=== PATIENT | male | born 1950 | race Caucasian/White ===

== ENCOUNTER → 2016-07-07 | Outpatient (CLI) | payer MEDICARE ==
--- NOTE | 2016-07-07 09:18 | CT ---
EXAMINATION TYPE: CT chest wo con DATE OF EXAM: 07/07/2016 8:56 AM COMPARISON: 01/01/2016 HISTORY: Pulmonary nodule CT DLP: 569.70 mGycm, Automated exposure control for dose reduction was used. CONTRAST: None TECHNIQUE: Axial images were obtained at 5 mm thick sections. Reconstructed images are reviewed on 6Scan computer in the coronal plane. FINDINGS: Portion of the thyroid visualized is normal. Previous 4 mm nodule in the right lower lobe appears smaller along measurement currently is estimated at 0.5 cm. This is more linear than round on the current exam. Series 4 image 28. The 0.6 cm nodule in the periphery of the right lower lobe is slightly larger than prior study. Series 4 image 37. A 0. 6 cm nodule along the major fissure of the left lung is stable. Series 4 image 28. No enlarged mediastinal or hilar adenopathy is evident. The ascending aorta diameter at the level o f the main pulmonary artery is 3.6 cm. The main pulmonary artery diameter at the bifurcation is 2.8 cm. Some coronary artery calcification is present. Limited CT sections are obtained through the upper abdomen. Gallstones are present. IMPRESSIONS: 1. Stable 2 mm increase in size of pulmonary nodules. Continued monitoring is recommended with a foll ow-up chest CT in 6 months. 2. Cholelithiasis.
== END | disposition home or self-care (01) ==
LOC: RADCTMAIN 08:37
PROVIDERS: ATTEND Internal Medicine Sleep Medicine
DX: R91.8 Other nonspecific abnormal finding of lung field (principal)
CPT/HCPCS: 71250

== ENCOUNTER → 2017-01-13 | Outpatient (CLI) | payer MEDICARE ==
--- NOTE | 2017-01-13 13:26 | CT ---
EXAMINATION TYPE: CT chest wo con DATE OF EXAM: 01/13/2017 COMPARISON: 07/07/2016 and priors HISTORY: Solitary pulmonary nodule CT DLP: 869 mGycm. Automated Exposure Control for Dose Reduction was Utilized. TECHNIQUE: CT scan of the thorax is performed without IV contrast. FINDINGS: LUNGS: 5 mm pulmonary nodule within the right lower lobe on image 33 is unchanged in size from the pr ior examination, previously measuring 6 mm given differences in measurement technique and slice selec tion. Additional right middle lobe pulmonary nodule measuring 3 mm is also unchanged retrospectively. 6 mm pulmonary nodule within the left lower lobe near the interlobar fissure is unchanged. This is s een on image 27. Interlobar fissure on the right the previously seen pulmonary nodule is only partially visualized giv en slice selection. No new pulmonary nodules are seen. No pulmonary masses are present. No focal cons olidation, pleural effusion or pneumothorax. Bibasilar subsegmental atelectasis is noted. The tracheo bronchial tree is patent. MEDIASTINUM: Lack of IV contrast is noted to limit evaluation for mediastinal and especially hilar ad enopathy. Although by size criteria there are enlarged lymph nodes within the mediastinum measuring 1 .2 cm in the prevascular space, there are fatty teena of these lymph nodes and therefore favored to be reactive. No cardiomegaly or pericardial effusion is seen. No thoracic aortic aneurysm or enlargemen t of the main pulmonary artery. Coronary artery calcifications within the left anterior descending co ronary artery are seen. OTHER: Numerous gallstones layer within the gallbladder body and fundus. Mild degenerative changes ar e appreciated of the thoracic spine demonstrated as anterior osteophytes and intervertebral disc spac e narrowing. IMPRESSION: Multiple unchanged pulmonary nodules demonstrating over 1 year stability. Follow-up CT th orax is recommended in one year to evaluate for stability/progression. Mildly enlarged mediastinal ly mph nodes contain fatty teena and are favored to represent reactive lymph nodes rather than neoplastic .
== END | disposition home or self-care (01) ==
LOC: RADCTMAIN 12:51
PROVIDERS: ATTEND Internal Medicine Sleep Medicine
DX: R91.8 Other nonspecific abnormal finding of lung field (principal)
CPT/HCPCS: 71250

== ENCOUNTER → 2018-01-23 | Outpatient (CLI) | payer MEDICARE ==
--- NOTE | 2018-01-23 11:35 | CT ---
EXAMINATION TYPE: CT chest wo con DATE OF EXAM: 01/23/2018 COMPARISON: Chest CT January 13, 2017 and older studies back to August 20, 2015 HISTORY: Solitary pulmonary nodule CT DLP: 738.90 mGycm. Automated Exposure Control for Dose Reduction was Utilized. TECHNIQUE: CT scan of the thorax is performed without IV contrast. FINDINGS: LUNGS: Subpleural right lower lobe 5 mm nodule axial image 36 is not significantly changed from August 20, 2015 CT and thus presumed benign. The 5 x 4 mm left lower lobe nodule near fissure axial image 2 7 is not significantly changed from August 20, 2015 CT. There is bibasilar linear scarring and/or atel ectasis at level of diaphragm redemonstrated. No new suspicious greater than 4 mm parenchymal nodule or mass is present. No pleural effusion or pneumothorax is seen bilaterally. Tracheobronchial tree is patent. MEDIASTINUM: Lack of IV contrast is noted to limit evaluation for mediastinal and especially hilar ad enopathy. There are no definitive new suspicious greater than 1 cm hilar or mediastinal lymph nodes. No cardiomegaly or pericardial effusion is seen. Main pulmonary artery measures up to 3.0 cm in jackelyn meter at bifurcation axial image 24, CT finding suggestive of mild underlying pulmonary artery hypert ension. Adjacent ascending aorta measures 3.3 cm in diameter. Small degree of bilateral gynecomastia is redemonstrated. Coronary artery calcification is again seen which is noted marker for coronary art cindy disease. OTHER: Dependent calcifications or calcified gallstones in gallbladder are redemonstrated. There is m oderate multilevel lateral spurring in the mid to lower thoracic spine redemonstrated. Moderate diffuse fat replaced atrophy of pancreas is redemonstrated. IMPRESSION: Stable small nodules. No new suspicious nodules or adenopathy. Documentation of 2 years s tability noted consistent with benign etiology.
== END ==
LOC: RADCTMAIN 08:33
PROVIDERS: ATTEND Internal Medicine Sleep Medicine
DX: R91.8 Other nonspecific abnormal finding of lung field (principal)
CPT/HCPCS: 36415; 71250; 82565; 84520

== ENCOUNTER 2018-11-08 15:11 | Emergency (ER) | payer MEDICARE, BC ==
[2018-11-08 16:30] LABS: Basophils # (A) 0.1 k/uL (0-0.2); Basophils % (A) 1 %; Eosinophils # (A) 0.7 k/uL (0-0.7); Eosinophils % (A) 8 %; HCT 40.6 % (39.0-53.0); HGB 13.1 gm/dL (13.0-17.5); Lymphocytes # (A) 1.1 k/uL (1.0-4.8); Lymphocytes % (A) 12 %; MCH 29.8 pg (25.0-35.0); MCHC 32.1 g/dL (31.0-37.0); MCV 92.6 fL (80.0-100.0); Mean Platelet Volume 7.3; Monocytes # (A) 0.6 k/uL (0-1.0); Monocytes % (A) 6 %; Neutrophils # (A) 6.7 k/uL (1.3-7.7); Neutrophils % (A) 71 %; Platelet Count 224 k/uL (150-450); RBC 4.39 m/uL (4.30-5.90); RDW 15.2 % (11.5-15.5); WBC 9.4 k/uL (3.8-10.6)
[2018-11-08 16:34] LABS: Potassium 4.6 mmol/L (3.5-5.1)
[2018-11-08 16:36] LABS: Albumin 4.4 g/dL (3.5-5.0); Calcium 9.7 mg/dL (8.4-10.2); Total Bilirubin 0.7 mg/dL (0.2-1.3)
--- NOTE | 2018-11-08 17:38 | ED ---
Extremity Problem HPI - General Chief complaint: Extremity Problem,Nontraumatic Stated complaint: Cellulitis Time Seen by Provider: 11/08/18 16:29 Source: patient Mode of arrival: ambulatory Limitations: no limitations - History of Present Illness Initial comments: Patient is a 67-year-old male presenting to emergency Department with complaints of right lower leg swelling and redness 3 days. Patient has past medical history of diabetes, hypertension, hyperlipidemia, kidney disease. Patient states he noticed the redness and swelling 3 days ago and the redness has progressively increased. Patient states he has antibiotic at home, doxycycline, that he was prescribed in case of cellulitis symptoms. He started taking that 3 days ago but there is no improvement. Patient states he recently took a trip to [place] 2 weeks ago. Patient denies a very minimal pain in his right lower leg the states it feels very tight. Patient states he has had this type of cellulitis in the past. Patient denies any fever, chills, nausea, vomiting. No other complaints at this time. - Related Data Home Medications Medication Instructions Recorded Confirmed Atenolol [Tenormin] 50 mg PO DAILY 12/31/14 11/08/18 Atorvastatin Calcium [Lipitor] 20 mg PO DAILY 12/31/14 11/08/18 Insulin Glargine,Hum.rec.anlog 38 units SQ HS 12/31/14 11/08/18 [Toujeo Solostar] Lisinopril [Zestril] 2.5 mg PO DAILY 12/31/14 11/08/18 Omeprazole [PriLOSEC] 20 mg PO AC-BRKFST 12/31/14 11/08/18 Allopurinol [Zyloprim] 200 mg PO DAILY 11/08/18 11/08/18 Aspirin EC [Ecotrin Low Dose] 81 mg PO DAILY 11/08/18 11/08/18 Doxycycline Monohydrate [Monodox] 100 mg PO Q12HR 11/08/18 11/08/18 Ferrous Sulfate [Feosol] 325 mg PO DAILY 11/08/18 11/08/18 Insulin Aspart [NovoLOG Flexpen] See Protocol SQ AC-TID 11/08/18 11/08/18 SILVER sulfADIAZINE Cream 1 applic TOPICAL BID 11/08/18 11/08/18 [Silvadene 1% Cream] Torsemide [Demadex] 20 mg PO Q48H 11/08/18 11/08/18 Previous Rx's Medication Instructions Recorded Amoxicillin/Potassium Clav 1 tab PO BID 7 Days #14 tab 11/08/18 [Augmentin 875-125 Tablet] Allergies Allergy/AdvReac Type Severity Reaction Status Date / Time ibuprofen [From Motrin] Allergy Anaphylaxis Verified 11/08/18 16:07 Review of Systems ROS Statement: Those systems with pertinent positive or pertinent negative responses have been documented in the HPI. ROS Other: All systems not noted in ROS Statement are negative. Past Medical History Past Medical History: Diabetes Mellitus, GERD/Reflux, Hyperlipidemia, Hypertension Additional Past Medical History / Comment(s): HX OF ULCERATIVE COLITIS, PA RASTOMAL HERNIA History of Any Multi-Drug Resistant Organisms: MRSA Date of last positivie culture/infection: 11/07/14 MDRO Source:: Scalp Past Surgical History: Appendectomy, Bowel Resection Additional Past Surgical History / Comment(s): COLECTOMY, RECTUM REMOVED, ELLIOTT CATARACTS Past Anesthesia/Blood Transfusion Reactions: No Reported Reaction Past Psychological History: No Psychological Hx Reported Smoking Status: Former smoker Past Alcohol Use History: None Reported Past Drug Use History: None Reported - Past Family History Mother Family Medical History: Cancer Additional Family Medical History / Comment(s): LUNG Father Family Medical History: Cancer Additional Family Medical History / Comment(s): MELANOMA/BRAIN General Exam - General Exam Comments Initial Comments: GENERAL: Well-appearing, well-nourished and in no acute distress. HEAD: Atraumatic, normocephalic. EYES: Pupils equal round and reactive to light, extraocular movements intact, sclera anicteric, conjunctiva are normal. ENT: TMs normal, nares patent, oropharynx clear without exudates. Moist mucous membranes. NECK: Normal range of motion, supple without lymphadenopathy or JVD. LUNGS: Breath sounds clear to auscultation bilaterally and equal. No wheezes rales or rhonchi. HEART: Regular rate and rhythm without murmurs, rubs or gallops. ABDOMEN: Soft, nontender, normoactive bowel sounds. No guarding, no rebound. No masses appreciated. : Deferred EXTREMITIES: Normal range of motion, no pitting or edema. No clubbing or cyanosis. NEUROLOGICAL: Cranial nerves II through XII grossly intact. Normal speech, normal gait. PSYCH: Normal mood, normal affect. Limitations: no limitations Skin exam: Present: warm, dry, erythema (Right lower leg) Expanded Description of rash: Present: erythematous, swelling. Absent: blisters Course Vital Signs 11/08/18 11/08/18 15:12 19:28 Temperature 98.1 F 98.2 F Pulse Rate 64 84 Respiratory 18 16 Rate Blood Pressure 157/80 155/78 O2 Sat by Pulse 98 98 Oximetry Medical Decision Making - Medical Decision Making Patient is a 67-year-old male with complaints of right lower leg swelling and erythema 3 days. Patient states he had doxycycline at home and try that for the last 3 days but the swelling and redness is not decreasing. Patient has recent history of trip to [place]. Patient states he has had this cellulitis in the past. Patient has past medical history of diabetes, kidney disease, hypertension. On exam patient has moderate swelling and erythema of the left lower leg. Very mild pain with palpation. Venous Doppler of the right lower extremity shows no evidence of DVT. CBC, CMP showed no signs of acute infection. Lactic acid is 1.6. Patient will be given a shot of Rocephin before discharge. Patient will be discharged home on Augmentin for cellulitis. Case was discussed with Dr. Robbins who agrees with this course of action. Return parameters were discussed with the patient and the and they both verbalize understanding. - Lab Data Result diagrams: 11/08/18 16:15 11/08/18 16:15 Lab Results 11/08/18 11/08/18 11/08/18 Range/Units 16:15 16:15 16:15 WBC 9.4 (3.8-10.6) k/uL RBC 4.39 (4.30-5.90) m/uL Hgb 13.1 (13.0-17.5) gm/dL Hct 40.6 (39.0-53.0) % MCV 92.6 (80.0-100.0) fL MCH 29.8 (25.0-35.0) pg MCHC 32.1 (31.0-37.0) g/dL RDW 15.2 (11.5-15.5) % Plt Count 224 (150-450) k/uL Neutrophils % 71 % Lymphocytes % 12 % Monocytes % 6 % Eosinophils % 8 % Basophils % 1 % Neutrophils # 6.7 (1.3-7.7) k/uL Lymphocytes # 1.1 (1.0-4.8) k/uL Monocytes # 0.6 (0-1.0) k/uL Eosinophils # 0.7 (0-0.7) k/uL Basophils # 0.1 (0-0.2) k/uL Sodium 141 (137-145) mmol/L Potassium 4.6 (3.5-5.1) mmol/L Chloride 107 (98-107) mmol/L Carbon Dioxide 21 L (22-30) mmol/L Anion Gap 13 mmol/L BUN 42 H (9-20) mg/dL Creatinine 1.99 H (0.66-1.25) mg/dL Est GFR (CKD-EPI)AfAm 39 (>60 ml/min/1.73 sqM) Est GFR (CKD-EPI)NonAf 34 (>60 ml/min/1.73 sqM) Glucose 118 H (74-99) mg/dL Plasma Lactic Acid Cecil 1.6 (0.7-2.0) mmol/L Calcium 9.7 (8.4-10.2) mg/dL Total Bilirubin 0.7 (0.2-1.3) mg/dL AST 38 (17-59) U/L ALT 29 (21-72) U/L Alkaline Phosphatase 111 (38-126) U/L Total Protein 8.0 (6.3-8.2) g/dL Albumin 4.4 (3.5-5.0) g/dL Disposition Clinical Impression: Cellulitis of right lower leg Disposition: HOME SELF-CARE Condition: Stable Instructions (If sedation given, give patient instructions): Cellulitis (ED) Additional Instructions: Please return to the Emergency Department if symptoms worsen or any other concerns. Prescriptions: Amoxicillin/Potassium Clav [Augmentin 875-125 Tablet] 1 tab PO BID 7 Days #14 tab Is patient prescribed a controlled substance at d/c from ED?: No Referrals: Nas Dennis DO [Primary Care Provider] - 1-2 days
--- NOTE | 2018-11-08 18:02 | US ---
EXAMINATION TYPE: US venous doppler duplex LE RT DATE OF EXAM: 11/08/2018 5:49 PM COMPARISON: US CLINICAL HISTORY: swelling, redness. Pain and swelling right leg x 4 days. No hx of DVT. Patient take s baby aspirin. SIDE PERFORMED: Right TECHNIQUE: The lower extremity deep venous system is examined utilizing real time linear array sonog shaun with graded compression, doppler sonography and color-flow sonography. VESSELS IMAGED: External Iliac Vein (EIV) Common Femoral Vein Deep Femoral Vein Greater Saphenous Vein * Femoral Vein Popliteal Vein Small Saphenous Vein * Proximal Calf Veins (* superficial vessels) Right Leg: No evidence of DVT in the right leg from proximal calf veins extending up to EIV at this time. Limited exam due to body habitus and edema. IMPRESSION: No evidence of deep venous thrombosis in the right leg.
[2018-11-08] MEDS ORDERED: cefTRIAXone IN SWFI 1,000 MG/10 ML SYRINGE IVP STA (18:35)
[2018-11-08 19:29] VITALS: BP 155/78; PULSE 84; RESP 16; TEMP 98.2
== END 2018-11-08 19:28 | disposition home or self-care (01) ==
LOC: EC 15:11
DX: L03.115 Cellulitis of right lower limb (principal); E11.9 Type 2 diabetes mellitus without complications; K21.9 Gastro-esophageal reflux disease without esophagitis; E78.5 Hyperlipidemia, unspecified; I10 Essential (primary) hypertension; Z87.891 Personal history of nicotine dependence; Z88.6 Allergy status to analgesic agent; Z79.4 Long term (current) use of insulin; Z79.82 Long term (current) use of aspirin; Z79.899 Other long term (current) drug therapy; Z86.14 Personal history of Methicillin resistant Staphylococcus aureus infection
CPT/HCPCS: 36415; 80053; 83605; 85025; 87040; 93971; 99284; 96374; J0696

== ENCOUNTER → 2019-03-22 | Outpatient (CLI) | payer MEDICARE, BC | END | disposition home or self-care (01) | LOC: RADMRIMAIN 06:06 | PROVIDERS: ATTEND Urology | DX: Z53.9 Procedure and treatment not carried out, unspecified reason (principal) ==

== ENCOUNTER 2020-06-25 20:19 | Observation (INO) | payer BC, MEDICARE ==
[2020-06-25 20:53] LABS: Basophils # (A) 0.1 k/uL (0-0.2); Basophils % (A) 1 %; Eosinophils % (A) 11 %; HCT 41.1 % (39.0-53.0); HGB 13.8 gm/dL (13.0-17.5); Lymphocytes # (A) 0.7 k/uL (1.0-4.8); Lymphocytes % (A) 7 %; MCH 31.8 pg (25.0-35.0); MCHC 33.5 g/dL (31.0-37.0); Monocytes # (A) 0.4 k/uL (0-1.0); Monocytes % (A) 4 %; Neutrophils # (A) 7.3 k/uL (1.3-7.7); Neutrophils % (A) 76 %; Platelet Count 286 k/uL (150-450); RBC 4.33 m/uL (4.30-5.90); RDW 14.5 % (11.5-15.5); WBC 9.7 k/uL (3.8-10.6)
[2020-06-25 21:02] LABS: Albumin 4.7 g/dL (3.5-5.0); Calcium 10.1 mg/dL (8.4-10.2); Magnesium 1.7 mg/dL (1.6-2.3); Total Bilirubin 0.6 mg/dL (0.2-1.3); Total Protein 8.5 g/dL (6.3-8.2)
[2020-06-25 21:05] LABS: INR 0.9 (<1.2); Prothrombin Time 9.6 sec (9.0-12.0)
[2020-06-25 21:07] LABS: Partial Thromboplastin Time 21.5 sec (22.0-30.0)
--- NOTE | 2020-06-25 21:11 | XR ---
EXAMINATION TYPE: XR chest 2V DATE OF EXAM: 06/25/2020 COMPARISON: NONE HISTORY: Chest pain. TECHNIQUE: Frontal and lateral views of the chest are obtained. FINDINGS: There is no focal air space opacity, pleural effusion, or pneumothorax seen. The cardiac silhouette size is within normal limits. The osseous structures are intact. IMPRESSION: No acute cardiopulmonary process.
[2020-06-25 21:13] LABS: Potassium 5.4 mmol/L (3.5-5.1)
[2020-06-25] MEDS ORDERED: NALOXONE 0.4 MG/ML 1 ML VIAL IV PRN (23:30)
--- NOTE | 2020-06-25 23:30 | ED ---
Chest Pain HPI - General Chief Complaint: Chest Pain Stated Complaint: chest pain Time Seen by Provider: 06/25/20 20:20 Source: patient, family Mode of arrival: wheelchair Limitations: no limitations - History of Present Illness Initial Comments: Patient is a 69-year-old male past medical history of ulcerative colitis, diabetes, hypertension presents emergency room for reported chest pain or shortness of breath. Patient reports that for the past one week he has had exertional dyspnea and spans across his chest. States that his symptoms are only present with exertion and are better with rest. He denies previous history of cardiac disease. No history of DVT or PE. Does admit to some mild lower extremity swelling with the right being worse than the left. No calf pain. No recent travel. Patient is not on any anticoagulation. Does follow with Dr. Bales. No fevers or chills. Does admit to a mild nonproductive cough. No abdominal pain. No other alleviating, precipitating or modifying factors - Related Data Home Medications Medication Instructions Recorded Confirmed Atenolol [Tenormin] 50 mg PO DAILY 12/31/14 06/25/20 Atorvastatin Calcium [Lipitor] 20 mg PO DAILY 12/31/14 06/25/20 Insulin Glargine,Hum.rec.anlog 50 units SQ HS 12/31/14 06/25/20 [Toukarinao Solostar] Omeprazole [PriLOSEC] 20 mg PO DAILY 12/31/14 06/25/20 Aspirin EC [Ecotrin Low Dose] 81 mg PO DAILY 11/08/18 06/25/20 Insulin Aspart [NovoLOG Flexpen] 40 units SQ AC-TID 11/08/18 06/25/20 Torsemide [Demadex] 10 mg PO DAILY 11/08/18 06/25/20 Allopurinol [Zyloprim] 300 mg PO DAILY 06/25/20 06/25/20 Ergocalciferol (Vitamin D2) 1,250 mcg PO Q28D 06/25/20 06/25/20 [Drisdol (50,000 Iu)] Tamsulosin HCl [Flomax] 0.4 mg PO PC-SUPPER 06/25/20 06/25/20 Allergies Allergy/AdvReac Type Severity Reaction Status Date / Time ibuprofen [From Motrin] Allergy Anaphylaxis Verified 06/25/20 22:02 Review of Systems ROS Statement: Those systems with pertinent positive or pertinent negative responses have been documented in the HPI. ROS Other: All systems not noted in ROS Statement are negative. EKG Findings - EKG Comments: EKG Findings:: EKG demonstrates sinus tachycardia with a ventricular rate of 106. SC interval 170. QRS 84. QTC of 488. No acute ST segment elevations or depressions Past Medical History Past Medical History: Diabetes Mellitus, GERD/Reflux, Hyperlipidemia, Hypertension Additional Past Medical History / Comment(s): HX OF ULCERATIVE COLITIS, PARASTOMAL HERNIA History of Any Multi-Drug Resistant Organisms: MRSA Date of last positivie culture/infection: 11/07/14 MDRO Source:: Scalp Past Surgical History: Appendectomy, Bowel Resection Additional Past Surgical History / Comment(s): COLECTOMY, RECTUM REMOVED, ELLIOTT CATARACTS Past Anesthesia/Blood Transfusion Reactions: No Reported Reaction Past Psychological History: No Psychological Hx Reported Smoking Status: Never smoker Past Alcohol Use History: None Reported Past Drug Use History: None Reported - Past Family History Mother Family Medical History: Cancer Additional Family Medical History / Comment(s): LUNG Father Family Medical History: Cancer Additional Family Medical History / Comment(s): MELANOMA/BRAIN General Exam Limitations: no limitations General appearance: alert, in no apparent distress Head exam: Present: atraumatic, normocephalic, normal inspection Eye exam: Present: normal appearance, PERRL, EOMI. Absent: scleral icterus, conjunctival injection, periorbital swelling ENT exam: Present: normal exam, mucous membranes moist Neck exam: Present: normal inspection. Absent: tenderness, meningismus, lymphadenopathy Respiratory exam: Present: normal lung sounds bilaterally. Absent: respiratory distress, wheezes, rales, rhonchi, stridor Cardiovascular Exam: Present: regular rate, normal rhythm, normal heart sounds. Absent: systolic murmur, diastolic murmur, rubs, gallop, clicks GI/Abdominal exam: Present: soft, normal bowel sounds. Absent: distended, tenderness, guarding, rebound, rigid Extremities exam: Present: normal inspection, full ROM, normal capillary refill. Absent: tenderness, pedal edema, joint swelling, calf tenderness Back exam: Present: normal inspection Neurological exam: Present: alert, oriented X3, CN II-XII intact Psychiatric exam: Present: normal affect, normal mood Skin exam: Present: warm, dry, intact, normal color. Absent: rash Course Vital Signs 06/25/20 06/25/20 06/25/20 20:21 21:01 22:52 Temperature 97.9 F Pulse Rate 112 H 100 99 Respiratory 18 18 17 Rate Blood Pressure 198/66 166/68 177/80 O2 Sat by Pulse 99 98 98 Oximetry 06/26/20 06/26/20 01:53 05:03 Temperature Pulse Rate 90 80 Respiratory 19 17 Rate Blood Pressure 164/67 146/64 O2 Sat by Pulse 97 97 Oximetry Chest Pain MDM - MDM Upon arrival patient is placed into room 3. A thorough history and physical exam was performed. EKG is performed. Laboratory studies are conducted and a chest x-ray was performed. Laboratory studies reviewed. D-dimer elevated at 0.91. Creatinine 2.01. Troponin is negative. Coronavirus not detected. Chest x-ray demonstrates no acute process. As the patient does have exertional dyspnea and tachycardia I did recommend a VQ scan which is performed. Demonstrates low probability for pulmonary embolism. Venous Dopplers are also negative for DVT. The patient will not be heparinized at this time. I did recommend hospitalization order trend his troponins. Cardiology will be consulted. Patient agreed to this treatment plan and was admitted to the floor. Spoke with Tyler from [facility] who agreed to admit the patient Disposition Clinical Impression: Chest pain, Exertional dyspnea, Elevated d-dimer Disposition: ADMITTED IP TO THIS HOSP Condition: Stable Is patient prescribed a controlled substance at d/c from ED?: No Decision to Admit Reason: Admit from EC Decision Date: 06/25/20 Decision Time: 23:30
--- NOTE | 2020-06-26 00:22 | NM ---
EXAMINATION TYPE: NM pul vent and perfuse DATE OF EXAM: 06/26/2020 COMPARISON: NONE HISTORY: Short of breath TECHNIQUE: Utilizing inhalation of 63.5 mCi Tc 99m DTPA aerosol and intravenous injection of 5.3 mCi of Tc 99m MAA, ventilation and perfusion images are acquired post injection in multiple projections. FINDINGS: There is fairly uniform perfusion of both lungs. I see no segmental or subsegmental defect. There is slight decreased activity in the upper lobes on the ventilation images consistent with some mild airw ay disease. The remainder of exam is unremarkable. IMPRESSION: There is very low probability of pulmonary embolism. There is evidence for some mild airway disease.
--- NOTE | 2020-06-26 01:00 | US ---
EXAM: US Duplex Bilateral Lower Extremities Veins CLINICAL HISTORY: ITS.REASON US Reason: swelling TECHNIQUE: Real-time duplex ultrasound scan of the bilateral lower extremity veins integrating B-mode two-dimensional vascular structure, Doppler spectral analysis, color flow Doppler imaging and compression. COMPARISON: No relevant prior studies available. FINDINGS: Right deep veins: Unremarkable. No DVT in the right common femoral, femoral, proximal deep femoral or popliteal veins. The veins demonstrate normal color flow, are normally compressible, with normal phasic flow and/or augmentation response. Right superficial veins: Unremarkable. No thrombus in the visualized right great saphenous vein. Left deep veins: Unremarkable. No DVT in the left common femoral, femoral, proximal deep femoral or popliteal veins. The veins demonstrate normal color flow, are normally compressible, with normal phasic flow and/or augmentation response. Left superficial veins: Unremarkable. No thrombus in the visualized left great saphenous vein. Soft tissues: No acute findings. No popliteal cyst. IMPRESSION: Negative bilateral lower extremity duplex venous ultrasound. No evidence of DVT.
[2020-06-26 06:20] LABS: Basophils # (A) 0.1 k/uL (0-0.2); Basophils % (A) 2 %; Eosinophils # (A) 0.9 k/uL (0-0.7); Eosinophils % (A) 14 %; HGB 11.8 gm/dL (13.0-17.5); Lymphocytes # (A) 0.7 k/uL (1.0-4.8); Lymphocytes % (A) 11 %; MCH 30.6 pg (25.0-35.0); MCHC 31.9 g/dL (31.0-37.0); MCV 95.9 fL (80.0-100.0); Mean Platelet Volume 7.3; Monocytes # (A) 0.4 k/uL (0-1.0); Monocytes % (A) 6 %; Neutrophils # (A) 4.2 k/uL (1.3-7.7); Neutrophils % (A) 66 %; Platelet Count 240 k/uL (150-450); RBC 3.86 m/uL (4.30-5.90); RDW 14.3 % (11.5-15.5); WBC 6.4 k/uL (3.8-10.6)
[2020-06-26 06:21] LABS: Calcium 9.6 mg/dL (8.4-10.2); Potassium 5.6 mmol/L (3.5-5.1)
[2020-06-26 07:28] LABS: Glucose,Whole Blood 219 mg/dL (75-99)
[2020-06-26] MEDS ORDERED: allopurinoL 300 MG TAB PO SCH (09:30)
[2020-06-26] MEDS ORDERED: atenoloL 50 MG TAB PO SCH (09:30)
[2020-06-26] MEDS ORDERED: PANTOPRAZOLE 40 MG TABLET PO SCH (09:45)
[2020-06-26] MEDS ORDERED: ATORVASTATIN 20 MG TAB PO SCH (09:45)
[2020-06-26] MEDS: INSULIN ASPART (NovoLOG) 100 UNIT/ML VIAL SQ SCH ×2 (10:21→13:48)
[2020-06-26] MEDS ORDERED: REGADENOSON 0.4 MG/5 ML SYRINGE IV PRN (11:47)
[2020-06-26] MEDS ORDERED: CAFFEINE CITRATE 60 MG/3 ML VIAL IV PRN (11:47)
[2020-06-26] MEDS ORDERED: AMINOPHYLLINE 500 MG/20 ML VIAL IV PRN (11:47)
[2020-06-26] MEDS ORDERED: DOBUTamine DRIP for NUC MED 500 MG in DEXTROSE/WATER 1 250ML.BAG IV PRN (11:58)
[2020-06-26 12:18] LABS: Glucose,Whole Blood 175 mg/dL (75-99)
[2020-06-26] MEDS ORDERED: INSULIN ASPART (NovoLOG) 100 UNIT/ML VIAL SQ SCH (12:30)
[2020-06-26] MEDS ORDERED: SODIUM POLYSTYRENE SULFONATE 15 GM/60 ML BOTTLE PO STA ×2 (13:12→13:57)
--- NOTE | 2020-06-26 13:16 | P.DS ---
Providers Date of admission: 06/25/20 23:30 Attending physician: Maury Gabriel Consults: 06/25/20 23:32 Consult Physician Urgent Consulting Provider: [facility] Consult Reason/Comments: acute chest pain Do you want consulting provider notified?: Yes Primary care physician: [facility] Course: Please refer to my HPI Patient Condition at Discharge: Stable Plan - Discharge Summary New Discharge Prescriptions: Discontinued lisinopriL [Zestril] 2.5 mg PO DAILY No Action Insulin Glargine,Hum.rec.anlog [Toujeo Solostar] 50 units SQ HS Omeprazole [PriLOSEC] 20 mg PO DAILY Atorvastatin Calcium [Lipitor] 20 mg PO DAILY Atenolol [Tenormin] 50 mg PO DAILY Torsemide [Demadex] 10 mg PO DAILY Insulin Aspart [NovoLOG Flexpen] 40 units SQ AC-TID Aspirin EC [Ecotrin Low Dose] 81 mg PO DAILY Ergocalciferol (Vitamin D2) [Drisdol (50,000 Iu)] 1,250 mcg PO Q28D Allopurinol [Zyloprim] 300 mg PO DAILY Tamsulosin HCl [Flomax] 0.4 mg PO PC-SUPPER Discharge Medication List Atenolol [Tenormin] 50 mg PO DAILY 12/31/14 [History] Atorvastatin Calcium [Lipitor] 20 mg PO DAILY 12/31/14 [History] Insulin Glargine,Hum.rec.anlog [Toujeo Solostar] 50 units SQ HS 12/31/14 [History] Omeprazole [PriLOSEC] 20 mg PO DAILY 12/31/14 [History] Aspirin EC [Ecotrin Low Dose] 81 mg PO DAILY 11/08/18 [History] Insulin Aspart [NovoLOG Flexpen] 40 units SQ AC-TID 11/08/18 [History] Torsemide [Demadex] 10 mg PO DAILY 11/08/18 [History] Allopurinol [Zyloprim] 300 mg PO DAILY 06/25/20 [History] Ergocalciferol (Vitamin D2) [Drisdol (50,000 Iu)] 1,250 mcg PO Q28D 06/25/20 [History] Tamsulosin HCl [Flomax] 0.4 mg PO PC-SUPPER 06/25/20 [History] Follow up Appointment(s)/Referral(s): Ivy Oswald MD [STAFF PHYSICIAN] - 1 Week Nas Dennis DO [Primary Care Provider] - 3 Days Activity/Diet/Wound Care/Special Instructions: Diabetic, cardiac, renal diet Discharge Disposition: HOME SELF-CARE
--- NOTE | 2020-06-26 13:16 | P.HPIM ---
History of Present Illness 69-year-old male past medical history of ulcerative colitis, diabetes, hypertension presents emergency room for reported chest pain or shortness of breath. Patient reports that for the past one week he has had exertional dyspnea and spans across his chest. States that his symptoms are only present with exertion and are better with rest. He denies previous history of cardiac disease. No history of DVT or PE. Does admit to some mild lower extremity swelling with the right being worse than the left. No calf pain. No recent travel. Patient is not on any anticoagulation. Does follow with Dr. Bales. No fevers or chills. Does admit to a mild nonproductive cough. No abdominal pain. No other alleviating, precipitating or modifying factors Patient weight was evaluated cardiology will be ruled out acute concern is synd romes. Patient will undergo stress test if that's negative patient will be discharged patient had a VQ scan which is low probability for PE patient has elevated serum creatinine appears to have chronic kidney disease. Patient has bit elevated of potassium because of which will risk and he lisinopril patient is on very low-dose of lisinopril at home. Patient doesn't have any COPD exacerbation at this time Review of Systems REVIEW OF SYSTEMS: CONSTITUTIONAL: No fever, no malaise, no fatigue. HEENT: No recent visual problems or hearing problems. Denied any sore throat. CARDIOVASCULAR: No orthopnea, PND, no palpitations, no syncope. PULMONARY: No shortness of breath, no cough, no hemoptysis. GASTROINTESTINAL: No diarrhea, no nausea, no vomiting, no abdominal pain. NEUROLOGICAL: No headaches, no weakness, no numbness. HEMATOLOGICAL: Denies any bleeding or petechiae. GENITOURINARY: Denies any burning micturition, frequency, or urgency. MUSCULOSKELETAL/RHEUMATOLOGICAL: Denies any joint pain, swelling, or any muscle pain. ENDOCRINE: Denies any polyuria or polydipsia. The rest of the 14-point review of systems is negative. Past Medical History Past Medical History: Cancer, Diabetes Mellitus, GERD/Reflux, Hyperlipidemia, Hypertension, Osteoarthritis (OA) Additional Past Medical History / Comment(s): HX OF ULCERATIVE COLITIS, PARASTOMAL HERNIA. 04/19 had positive rectal bx and was treated with 5 Radiation and last was 06/12/20 History of Any Multi-Drug Resistant Organisms: MRSA Date of last positivie culture/infection: 11/07/14 MDRO Source:: Scalp Past Surgical History: Appendectomy, Bowel Resection Additional Past Surgical History / Comment(s): COLECTOMY, RECTUM REMOVED, ELLIOTT CATARACTS Past Anesthesia/Blood Transfusion Reactions: No Reported Reaction Past Psychological History: No Psychological Hx Reported Smoking Status: Never smoker Past Alcohol Use History: None Reported Past Drug Use History: None Reported - Past Family History Mother Family Medical History: Cancer Additional Family Medical History / Comment(s): LUNG Father Family Medical History: Cancer Additional Family Medical History / Comment(s): MELANOMA/BRAIN Medications and Allergies Home Medications Medication Instructions Recorded Confirmed Type Atenolol [Tenormin] 50 mg PO DAILY 12/31/14 06/25/20 History Atorvastatin Calcium [Lipitor] 20 mg PO DAILY 12/31/14 06/25/20 History Insulin Glargine,Hum.rec.anlog 50 units SQ HS 12/31/14 06/25/20 History [Toujeo Solostar] Omeprazole [PriLOSEC] 20 mg PO DAILY 12/31/14 06/25/20 History Aspirin EC [Ecotrin Low Dose] 81 mg PO DAILY 11/08/18 06/25/20 History Insulin Aspart [NovoLOG Flexpen] 40 units SQ AC-TID 11/08/18 06/25/20 History Torsemide [Demadex] 10 mg PO DAILY 11/08/18 06/25/20 History Allopurinol [Zyloprim] 300 mg PO DAILY 06/25/20 06/25/20 History Ergocalciferol (Vitamin D2) 1,250 mcg PO Q28D 06/25/20 06/25/20 History [Drisdol (50,000 Iu)] Tamsulosin HCl [Flomax] 0.4 mg PO PC-SUPPER 06/25/20 06/25/20 History Allergies Allergy/AdvReac Type Severity Reaction Status Date / Time ibuprofen [From Motrin] Allergy Anaphylaxis Verified 06/25/20 22:02 Physical Exam Vitals: Vital Signs Temp Pulse Pulse Resp BP BP Pulse Ox 06/26/20 07:00 98.2 F 86 17 179/74 97 06/26/20 05:03 80 17 146/64 97 06/26/20 01:53 90 19 164/67 97 06/25/20 22:52 99 17 177/80 98 02/25/21 21:01 100 18 166/68 98 06/25/20 20:21 97.9 F 112 H 18 198/66 99 Intake and Output 06/25/20 06/26/20 06/26/20 22:59 06:59 14:59 Other: Weight 117.934 kg 117.934 kg PHYSICAL EXAMINATION: GENERAL: The patient is alert and oriented x3, not in any acute distress. Well developed, well nourished. HEENT: Pupils are round and equally reacting to light. EOMI. No scleral icterus. No conjunctival pallor. Normocephalic, atraumatic. No pharyngeal erythema. No thyromegaly. CARDIOVASCULAR: S1 and S2 present. No murmurs, rubs, or gallops. PULMONARY: Chest is clear to auscultation, no wheezing or crackles. ABDOMEN: Soft, nontender, nondistended, normoactive bowel sounds. No palpable organomegaly. MUSCULOSKELETAL: No joint swelling or deformity. EXTREMITIES: No cyanosis, clubbing, or pedal edema. NEUROLOGICAL: Gross neurological examination did not reveal any focal deficits. SKIN: No rashes. Results CBC & Chem 7: 06/26/20 05:31 06/26/20 05:31 Labs: Abnormal Lab Results - Last 24 Hours (Table) 06/25/20 06/25/20 06/25/20 Range/Units 20:44 20:44 20:44 RBC (4.30-5.90) m/uL Hgb (13.0-17.5) gm/dL Hct (39.0-53.0) % Lymphocytes # 0.7 L (1.0-4.8) k/uL Eosinophils # 1.0 H (0-0.7) k/uL APTT 21.5 L (22.0-30.0) sec D-Dimer (<0.60) mg/L FEU Potassium 5.4 H (3.5-5.1) mmol/L Carbon Dioxide 21 L (22-30) mmol/L BUN 30 H (9-20) mg/dL Creatinine 2.01 H (0.66-1.25) mg/dL Glucose 174 H (74-99) mg/dL POC Glucose (mg/dL) (75-99) mg/dL Alkaline Phosphatase 134 H (38-126) U/L Total Protein 8.5 H (6.3-8.2) g/dL 06/25/20 06/26/20 06/26/20 Range/Units 20:44 05:31 05:31 RBC 3.86 L (4.30-5.90) m/uL Hgb 11.8 L (13.0-17.5) gm/dL Hct 37.0 L (39.0-53.0) % Lymphocytes # 0.7 L (1.0-4.8) k/uL Eosinophils # 0.9 H (0-0.7) k/uL APTT (22.0-30.0) sec D-Dimer 0.91 H (<0.60) mg/L FEU Potassium 5.6 H (3.5-5.1) mmol/L Carbon Dioxide (22-30) mmol/L BUN 28 H (9-20) mg/dL Creatinine 2.23 H (0.66-1.25) mg/dL Glucose 253 H (74-99) mg/dL POC Glucose (mg/dL) (75-99) mg/dL Alkaline Phosphatase (38-126) U/L Total Protein (6.3-8.2) g/dL 06/26/20 06/26/20 Range/Units 07:26 12:10 RBC (4.30-5.90) m/uL Hgb (13.0-17.5) gm/dL Hct (39.0-53.0) % Lymphocytes # (1.0-4.8) k/uL Eosinophils # (0-0.7) k/uL APTT (22.0-30.0) sec D-Dimer (<0.60) mg/L FEU Potassium (3.5-5.1) mmol/L Carbon Dioxide (22-30) mmol/L BUN (9-20) mg/dL Creatinine (0.66-1.25) mg/dL Glucose (74-99) mg/dL POC Glucose (mg/dL) 219 H 175 H (75-99) mg/dL Alkaline Phosphatase (38-126) U/L Total Protein (6.3-8.2) g/dL Thrombosis Risk Factor Assmnt - Choose All That Apply Any of the Below Risk Factors Present?: Yes Each Factor Represents 1 point: Obesity (BMI >25), Swollen legs (current) Other Risk Factors: Yes (recent recurrance of cancer rectum with radiation airam tments) Each Risk Factor Represents 2 Points: Age 61-74 years, Malignancy Thrombosis Risk Factor Assessment Total Risk Factor Score: 6 Thrombosis Risk Factor Assessment Level: High Risk Assessment and Plan Plan: -Chest pressure with some possible shortness of breath: Patient the will undergo dobutamine stress us if that's negative patient will be discharged rule out a concurrent syndromes -Chronic kidney disease stage IV secondary to diabetic nephropathy -Hyperkalemia secondary to kidney disease and lisinopril. lisinopril discontinued and patient will be given a dose of Kayexalate and patient will be discharged on low potassium diet which is renal diet. -Acid-free reflux disease -Type 2 diabetes mellitus -Benign prostatic hypertrophy
[2020-06-26 13:42] VITALS: RESP 16
--- NOTE | 2020-06-26 14:49 | P.CRDCN ---
History of Present Illness Consult date: 06/26/20 History of present illness: CHIEF COMPLAINT: Chest pain HISTORY OF PRESENT ILLNESS: This is a 69-year-old male with a past medical history significant for chronic kidney disease, GERD, hyperlipidemia, and hypertension. Patient follows in the office with Dr. Bales. We have been asked to see the patient in consultation for chest pain. Patient examined this morning at the bedside. He reports he has been short of breath for approximately one week. He states his shortness of breath is with exertion. He denies any shortness of breath at rest. He also complains of chest pressure across to his left and right upper chest. He states the pain into his right neck and on his left arm. He reports feeling dizzy as well. At the time of examination this morning, the patient denies any chest pain or pressure. DIAGNOSTICS: EKG reveals sinus tachycardia with no signs of acute ischemia Chest xray negative for acute process Laboratory data: WBC 6.4. Hemoglobin 11.8. Platelet count 240. Sodium 137. Potassium 5.6. BUN 28. Creatinine 2.23. Troponin negative 3. BNP 110. Current home cardiac medications include Demadex 10 mg daily, Lipitor 20 mg daily, atenolol 50 mg daily, and aspirin 81 mg daily REVIEW OF SYSTEMS: At the time of my exam: CONSTITUTIONAL: Denies fever or chills. HEENT: Denies blurred vision, vision changes, or eye pain. Denies hemoptysis CARDIOVASCULAR: Denies chest pain, orthopnea, PND or palpitations RESPIRATORY: No shortness of breath. GASTROINTESTINAL: Denies abdominal pain. Denies nausea or vomiting. HEMATOLOGIC: Denies bleeding disorders. GENITOURINARY: Denies any blood in urine. SKIN: Denies pruitis. Denies rash. PHYSICAL EXAM: VITAL SIGNS: Reviewed. GENERAL: Well-developed in no acute distress. HEENT: Head is normocephalic. Pupils are equal, round. Sclerae anicteric. Mucous membranes of the mouth are moist. Neck supple. No JVD or thyromegaly LUNGS: Respirations even and unlabored. Lungs essentially clear to auscultation bilaterally. HEART: Regular rate and rhythm. S1 and S2 heard. ABDOMEN: Soft. Nondistended. Nontender. EXTREMITIES: Normal range of motion. No clubbing or cyanosis. Peripheral pulses intact. No lower extremity edema NEUROLOGIC: Awake and alert. Oriented x 3. ASSESSMENT: Chest pain Hypertension Hyperlipidemia Chronic kidney disease History of lower extremity edema, maintained on Demadex, denies history of congestive heart failure Diabetes mellitus Morbid obesity: BMI 42.0 PLAN: Resume home cardiac medications An acute coronary event has been ruled out Obtain 2-D echo to assess cardiac structure and function Patient to undergo dobutamine stress test today. If negative he may be discharged home from a cardiac perspective and follow-up with Dr. Bales Nurse practitioner note has been reviewed by physician. Signing provider agrees with the documented findings, assessment, and plan of care. Past Medical History Past Medical History: Cancer, Diabetes Mellitus, GERD/Reflux, Hyperlipidemia, Hypertension, Osteoarthritis (OA) Additional Past Medical History / Comment(s): HX OF ULCERATIVE COLITIS, PARASTOMAL HERNIA. 04/19 had positive rectal bx and was treated with 5 Radiation and last was 06/12/20 History of Any Multi-Drug Resistant Organisms: MRSA Date of last positivie culture/infection: 11/07/14 MDRO Source:: Scalp Past Surgical History: Appendectomy, Bowel Resection Additional Past Surgical History / Comment(s): COLECTOMY, RECTUM REMOVED, ELLIOTT CATARACTS Past Anesthesia/Blood Transfusion Reactions: No Reported Reaction Past Psychological History: No Psychological Hx Reported Smoking Status: Never smoker Past Alcohol Use History: None Reported Past Drug Use History: None Reported - Past Family History Mother Family Medical History: Cancer Additional Family Medical History / Comment(s): LUNG Father Family Medical History: Cancer Additional Family Medical History / Comment(s): MELANOMA/BRAIN Medications and Allergies Home Medications Medication Instructions Recorded Confirmed Type Atenolol [Tenormin] 50 mg PO DAILY 12/31/14 06/25/20 History Atorvastatin Calcium [Lipitor] 20 mg PO DAILY 12/31/14 06/25/20 History Insulin Glargine,Hum.rec.anlog 50 units SQ HS 12/31/14 06/25/20 History [Toujeo Solostar] Omeprazole [PriLOSEC] 20 mg PO DAILY 12/31/14 06/25/20 History Aspirin EC [Ecotrin Low Dose] 81 mg PO DAILY 11/08/18 06/25/20 History Insulin Aspart [NovoLOG Flexpen] 40 units SQ AC-TID 11/08/18 06/25/20 History Torsemide [Demadex] 10 mg PO DAILY 11/08/18 06/25/20 History Allopurinol [Zyloprim] 300 mg PO DAILY 06/25/20 06/25/20 History Ergocalciferol (Vitamin D2) 1,250 mcg PO Q28D 06/25/20 06/25/20 History [Drisdol (50,000 Iu)] Tamsulosin HCl [Flomax] 0.4 mg PO PC-SUPPER 06/25/20 06/25/20 History Allergies Allergy/AdvReac Type Severity Reaction Status Date / Time ibuprofen [From Motrin] Allergy Anaphylaxis Verified 06/25/20 22:02 Physical Exam Vitals: Vital Signs Temp Pulse Pulse Resp BP BP Pulse Ox 06/26/20 13:09 101 H 16 175/65 95 06/26/20 07:00 98.2 F 86 17 179/74 97 06/26/20 05:03 80 17 146/64 97 06/26/20 01:53 90 19 164/67 97 06/25/20 22:52 99 17 177/80 98 06/25/20 21:01 100 18 166/68 98 06/25/20 20:21 97.9 F 112 H 18 198/66 99 Intake and Output 06/25/20 06/26/20 06/26/20 22:59 06:59 14:59 Other: # Voids 2 Weight 117.934 kg 117.93 kg Results 06/26/20 05:31 06/26/20 05:31 Cardiac Enzymes 06/25/20 06/25/20 06/26/20 Range/Units 20:44 20:44 00:52 AST 28 (17-59) U/L Troponin I <0.012 <0.012 (0.000-0.034) ng/mL 06/26/20 Range/Units 05:31 AST (17-59) U/L Troponin I 0.023 (0.000-0.034) ng/mL Coagulation 06/25/20 Range/Units 20:44 PT 9.6 (9.0-12.0) sec APTT 21.5 L (22.0-30.0) sec CBC 06/25/20 06/26/20 Range/Units 20:44 05:31 WBC 9.7 6.4 (3.8-10.6) k/uL RBC 4.33 3.86 L (4.30-5.90) m/uL Hgb 13.8 11.8 L (13.0-17.5) gm/dL Hct 41.1 37.0 L (39.0-53.0) % Plt Count 286 240 (150-450) k/uL Comprehensive Metabolic Panel 06/25/20 06/26/20 Range/Units 20:44 05:31 Sodium 138 137 (137-145) mmol/L Potassium 5.4 H 5.6 H (3.5-5.1) mmol/L Chloride 106 104 (98-107) mmol/L Carbon Dioxide 21 L 23 (22-30) mmol/L BUN 30 H 28 H (9-20) mg/dL Creatinine 2.01 H 2.23 H (0.66-1.25) mg/dL Glucose 174 H 253 H (74-99) mg/dL Calcium 10.1 9.6 (8.4-10.2) mg/dL AST 28 (17-59) U/L ALT 25 (4-49) U/L Alkaline Phosphatase 134 H (38-126) U/L Total Protein 8.5 H (6.3-8.2) g/dL Albumin 4.7 (3.5-5.0) g/dL Current Medications Generic Name Dose Route Start Last Admin Trade Name Freq PRN Reason Stop Dose Admin Allopurinol 300 mg 06/26/20 09:30 06/26/20 10:20 Allopurinol 300 Mg Tab PO 300 mg DAILY JOSÉ Administration Aminophylline 100 mg 06/26/20 11:47 Aminophylline 500 Mg/20 Ml Vial IV 06/26/20 15:47 ONCE PRN Patient Response Atenolol 50 mg 06/26/20 09:30 06/26/20 13:48 Atenolol 50 Mg Tab PO 50 mg DAILY JOSÉ Administration Atorvastatin Calcium 20 mg 06/26/20 09:45 06/26/20 10:19 Atorvastatin 20 Mg Tab PO 20 mg DAILY JOSÉ Administration Caffeine Citrate 60 mg 06/26/20 11:47 Caffeine Citrate 60 Mg/3 Ml Vial IV 06/26/20 15:47 ONCE PRN Patient Response Ergocalciferol 1,250 mcg 07/13/20 09:00 Ergocalciferol 1,250 Mcg (50,000 Iu) Capsule PO Q28D [facility] Dobutamine HCl/Dextrose 500 mg 250 mls @ 35.38 mls/hr 06/26/20 11:58 / IV Solution IV 06/26/20 15:58 .Q7H4M PRN Per Protocol Protocol 10 MCG/KG/MIN Insulin Aspart 0 unit 06/26/20 12:30 06/26/20 13:48 Insulin Aspart (Novolog) 100 Unit/Ml Vial SQ Not Given ACHS [facility] Protocol Insulin Aspart 40 unit 06/26/20 12:30 06/26/20 13:48 Insulin Aspart (Novolog) 100 Unit/Ml Vial SQ 40 unit AC-TID JOSÉ Administration Insulin Detemir 50 unit 06/26/20 21:00 Insulin Detemir (Levemir) 100 Unit/Ml Syr SQ HS [facility] Naloxone HCl 0.2 mg 06/25/20 23:30 Naloxone 0.4 Mg/Ml 1 Ml Vial IV Q2M PRN Opioid Reversal Pantoprazole Sodium 40 mg 06/26/20 09:45 06/26/20 10:19 Pantoprazole 40 Mg Tablet PO 40 mg DAILY JOSÉ Administration Tamsulosin HCl 0.4 mg 06/26/20 18:30 Tamsulosin 0.4 Mg Cap.Er.24h PO PC-SUPPER [facility] Intake and Output 06/25/20 06/26/20 06/26/20 22:59 06:59 14:59 Other: # Voids 2 Weight 117.934 kg 117.93 kg Patient Weight 06/27/20 06:59 Weight 117.93 kg 06/26/20 05:31 06/26/20 05:31
[2020-06-26 16:33] VITALS: BP 141/72; PULSE 68; TEMP 98.1
--- NOTE | 2020-06-26 17:11 | P.STRESS ---
- Stress Test Note Stress Test Results/Findings: Exam Performed: dobutamine stress echo with con Exam Date: 06/26/20 Reason for Exam: CP Height: 5 ft 6 in Weight: 117.93 kg Protocol: DOBUTAMINE STRESS ECHO W/ LUMASON Stage: 30 mcg Duration of Exercise: 6:41 Resting Heart Rate: 100 Resting Blood Pressure: 188/82 Maximum Achieved Heart Rate: 132 Maximum Achieved Blood Pressure: 195/80 85% PMHR: 128 100% PMHR: 150 METS: NA Technologist Comment: Stress Test Results/Findings: This is a 69-year-old gentleman with history of hypertension, diabetes and hypercholesterolemia who was admitted to the hospital with complaints of exertional shortness of breath and chest pain and palpitations. His cardiac enzymes have been negative. EKG did not reveal any acute changes. Stress data: Baseline EKG showed sinus rhythm with normal DC interval, QRS duration. Blood pressure at rest is 188/82 with pulse rate of 100. A standard dose of dobutamine was initiated at 10 mics and was increased to 20 mics, achieving a maximal heart rate of 132 with a blood pressure of about 195/80. EKGs taken during and after the infusion did not reveal any change of ischemia. Patient did complain of some chest pain unassociated with any EKG changes. Echo data: Baseline echo images showed hyperactive contraction of the left ventricle without any segmental wall motion defects. At low-dose and high dose of dobutamine, there appeared to be similar hyperactive contraction of the left ventricle without any segmental wall motion defects. Final impression #1. Negative dobutamine stress test #2. Probably negative dobutamine stress echo without any inducible ischemic changes. #3. Patient did complain of chest pain unassociated with any EKG changes or echo findings
--- NOTE | 2020-06-26 17:51 | ECHOF ---
Referral Reason:LV function, SOB, chest pain MEASUREMENTS -------- HEIGHT: 167.6 cm WEIGHT: 117.9 kg BP: 179/74 RVIDd: 3.4 cm (< 3.3) IVSd: 1.4 cm (0.6 - 1.1) LVIDd: 4.3 cm (3.9 - 5.3) LVPWd: 1.5 cm (0.6 - 1.1) IVSs: 2.0 cm LVIDs: 2.9 cm LVPWs: 2.0 cm LA Diam: 3.7 cm (2.7 - 3.8) LAESV Index (A-L): 32.05 ml/m Ao Diam: 3.3 cm (2.0 - 3.7) AV Cusp: 2.1 cm (1.5 - 2.6) MV EXCURSION: 18.438 mm (> 18.000) MV EF SLOPE: 72 mm/s (70 - 150) EPSS: 0.3 cm MV E Acosta: 0.75 m/s MV DecT: 277 ms MV A Acosta: 0.96 m/s MV E/A Ratio: 0.78 FINDINGS -------- Sinus rhythm. This was a technically difficult study with suboptimal views. The left ventricular size is normal. There is moderate concentric left ventricular hypertrophy. O verall left ventricular systolic function is normal with, an EF between 60 - 65 %. The right ventricle is mildly enlarged. LA is midly dilated 29-33ml/m2. The right atrium is normal in size. 3 ml of Lumason was utilized for enhancement of images. Interatrial and interventricular septum intact. The aortic valve is trileaflet and appears structurally normal. There is trace to mild mitral regurgitation. The tricuspid valve appears structurally normal. The pulmonic valve was not well visualized. The aortic root size is normal. IVC Not well visulized. There is no pericardial effusion. CONCLUSIONS -------- 1. The left ventricular size is normal. 2. There is moderate concentric left ventricular hypertrophy. 3. Overall left ventricular systolic function is normal with, an EF between 60 - 65 %. 4. The right ventricle is mildly enlarged. 5. LA is midly dilated 29-33ml/m2. 6. 3 ml of Lumason was utilized for enhancement of images. 7. There is trace to mild mitral regurgitation. 8. There is no pericardial effusion. RADIO MECHANIC HELPER: Leslie Pratt RDCS
[2020-06-26] MEDS ORDERED: TAMSULOSIN 0.4 MG CAP.ER.24H PO SCH (18:30)
[2020-06-26] MEDS ORDERED: INSULIN DETEMIR (LEVEMIR) 100 UNIT/ML SYR SQ SCH (21:00)
[2020-07-13] MEDS ORDERED: ERGOCALCIFEROL 1,250 MCG (50,000 IU) CAPSULE PO SCH (09:00)
== END 2020-06-26 18:15 | disposition home or self-care (01) ==
LOC: EC 20:19 → 6NMEDSUR 23:30
PROVIDERS: ADMIT Hospitalist; ATTEND Hospitalist
DX: R07.89 Other chest pain (principal); E87.5 Hyperkalemia; M54.2 Cervicalgia; M79.602 Pain in left arm; R42 Dizziness and giddiness; R60.0 Localized edema; K51.90 Ulcerative colitis, unspecified, without complications; R06.02 Shortness of breath; R00.0 Tachycardia, unspecified; R06.09 Other forms of dyspnea; M79.89 Other specified soft tissue disorders; R05 Cough; R79.89 Other specified abnormal findings of blood chemistry; E11.21 Type 2 diabetes mellitus with diabetic nephropathy; E11.22 Type 2 diabetes mellitus with diabetic chronic kidney disease; I12.9 Hypertensive chronic kidney disease with stage 1 through stage 4 chronic kidney disease, or unspecified chronic kidney disease; N18.4 Chronic kidney disease, stage 4 (severe); K21.9 Gastro-esophageal reflux disease without esophagitis; E78.5 Hyperlipidemia, unspecified; M19.90 Unspecified osteoarthritis, unspecified site; E66.01 Morbid (severe) obesity due to excess calories; Z68.41 Body mass index [BMI] 40.0-44.9, adult; N40.0 Benign prostatic hyperplasia without lower urinary tract symptoms; Z79.899 Other long term (current) drug therapy; Z79.82 Long term (current) use of aspirin; Z79.4 Long term (current) use of insulin; Z88.8 Allergy status to other drugs, medicaments and biological substances; Z86.14 Personal history of Methicillin resistant Staphylococcus aureus infection; Z90.49 Acquired absence of other specified parts of digestive tract; Z80.8 Family history of malignant neoplasm of other organs or systems; Z80.1 Family history of malignant neoplasm of trachea, bronchus and lung; Z20.822 Contact with and (suspected) exposure to COVID-19
CPT/HCPCS: 99285; 36415; 93005; 93351; 85379; 83880; 80053; 80048; 83690; 83735; 84484 ×2; 85025 ×2; 85610; 85730; 87635; 71046; 93970; 78582; G0378 ×2; C8929; A9540; A9567; J1250; Q9950; 93306

== ENCOUNTER 2021-10-21 11:36 | Inpatient (IN) | payer MEDICARE ==
[2021-10-21] MEDS ORDERED: MORPHINE SULFATE 4 MG/ML SYRINGE IV STA (12:34)
[2021-10-21] MEDS ORDERED: NITROGLYCERIN SL TABS 0.4 MG TAB SUBLINGUAL STA (12:34)
--- NOTE | 2021-10-21 13:02 | ED ---
Chest Pain HPI - General Chief Complaint: Chest Pain Stated Complaint: Chest Pain/SOB Time Seen by Provider: 10/21/21 12:00 Source: patient, family, RN notes reviewed Mode of arrival: wheelchair Limitations: no limitations - History of Present Illness Initial Comments: 70-year-old male with a history of hypertension but no known history of lung disease who came in today for evaluation of sharp chest pain started just before 10 AM this morning he states was 8/10 severity radiated to his left shoulder and left neck.Get worse with expiration. He's had exertional dyspnea and shortness of breath over the past several weeks. No fevers chills sweats no exposures to known infectious diseases. No known heart disease. No other current complaints or modifying factors patient states also no trauma ported. 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 MD Complaint: chest pain - Related Data Home Medications Medication Instructions Recorded Confirmed Atorvastatin Calcium [Lipitor] 20 mg PO DAILY 12/31/14 10/21/21 Insulin Glargine,Hum.rec.anlog 50 units SQ HS 12/31/14 10/21/21 [Toujeo Solostar] Omeprazole [PriLOSEC] 20 mg PO DAILY 12/31/14 10/21/21 atenoloL [Tenormin] 50 mg PO DAILY 12/31/14 10/21/21 Aspirin EC [Ecotrin Low Dose] 81 mg PO DAILY 11/08/18 10/21/21 Insulin Aspart [NovoLOG Flexpen] See Protocol SQ AC-TID 11/08/18 10/21/21 Ergocalciferol (Vitamin D2) 1,250 mcg PO Q14D 06/25/20 10/21/21 [Drisdol (50,000 Iu)] Tamsulosin HCl [Flomax] 0.4 mg PO PC-SUPPER 06/25/20 10/21/21 Dapagliflozin Propanediol [Farxiga] 5 mg PO DAILY 10/21/21 10/21/21 Escitalopram [Lexapro] 10 mg PO DAILY 10/21/21 10/21/21 Torsemide [Demadex] 10 mg PO DAILY 10/21/21 10/21/21 allopurinoL [Zyloprim] 100 mg PO DAILY 10/21/21 10/21/21 amLODIPine [Norvasc] 5 mg PO DAILY 10/21/21 10/21/21 Allergies Allergy/AdvReac Type Severity Reaction Status Date / Time ibuprofen [From Motrin] Allergy Anaphylaxis Verified 10/21/21 13:39 Review of Systems ROS Statement: Those systems with pertinent positive or pertinent negative responses have been documented in the HPI. ROS Other: All systems not noted in ROS Statement are negative. Past Medical History Past Medical History: Diabetes Mellitus, GERD/Reflux, Hyperlipidemia, Hypertension Additional Past Medical History / Comment(s): HX OF ULCERATIVE COLITIS, PARASTOMAL HERNIA History of Any Multi-Drug Resistant Organisms: MRSA Date of last positivie culture/infection: 11/07/14 MDRO Source:: Scalp Past Surgical History: Appendectomy, Bowel Resection Additional Past Surgical History / Comment(s): COLECTOMY, RECTUM REMOVED, ELLIOTT CATARACTS Past Anesthesia/Blood Transfusion Reactions: No Reported Reaction Past Psychological History: No Psychological Hx Reported Smoking Status: Never smoker Past Alcohol Use History: None Reported Past Drug Use History: None Reported - Past Family History Mother Family Medical History: Cancer Additional Family Medical History / Comment(s): LUNG Father Family Medical History: Cancer Additional Family Medical History / Comment(s): MELANOMA/BRAIN General Exam - General Exam Comments Initial Comments: This is a well-developed well-nourished awake alert oriented 3 male Limitations: no limitations General appearance: alert, anxious Head exam: Present: atraumatic, normocephalic, normal inspection Eye exam: Present: normal appearance, PERRL, EOMI. Absent: scleral icterus, conjunctival injection, periorbital swelling ENT exam: Present: normal exam, mucous membranes moist Neck exam: Present: normal inspection, full ROM, other. Absent: tenderness, meningismus, lymphadenopathy Respiratory exam: Present: normal lung sounds bilaterally, chest wall tenderness (Historyofbruitspatientontheupperanteriorleftcostalsternalmarginnostep- offnocrepitationquestionwhetherthisreproducesthepainornot.). Absent: respiratory distress, wheezes, rales, rhonchi, stridor Cardiovascular Exam: Present: regular rate, normal rhythm, normal heart sounds. Absent: systolic murmur, diastolic murmur, rubs, gallop, clicks GI/Abdominal exam: Present: soft, normal bowel sounds. Absent: distended, tenderness, guarding, rebound, rigid Extremities exam: Present: normal inspection, full ROM, normal capillary refill. Absent: tenderness, pedal edema, joint swelling, calf tenderness Back exam: Present: normal inspection, full ROM. Absent: tenderness Neurological exam: Present: alert, oriented X3, CN II-XII intact Psychiatric exam: Present: normal affect, anxious Skin exam: Present: warm, dry, intact, normal color. Absent: rash Course Vital Signs 10/21/21 10/21/21 10/21/21 11:40 14:00 15:16 Temperature 98.5 F Pulse Rate 70 72 65 Respiratory 24 20 Rate Blood Pressure 138/65 137/47 150/50 O2 Sat by Pulse 93 L 97 96 Oximetry - Reevaluation(s) Reevaluation #1: 10/21/21 13:41 Reevaluation patient he is feeling improved after the medication was given. Chest Pain MDM - MDM She get relief from his chest pain after nitroglycerin was given. He does not believe the morphine helped much other than make him dizzy. X-ray does show evidence of pulmonary edema. Initial cardiac enzymes within normal limits patient does demonstrate evidence of chronic renal insufficiency. Case is discussed with Dr. Shea patient will be admitted with cardiology consultation. The presentation is consistent with new onset CHF and the chest pain. Patient was given IV Lasix as well as nitroglycerin paste. Critical Care Time Critical Care Time: Yes Total Critical Care Time: 34 Critical Care Time: Critical care time includes presentation with history physical labs x-rays reevaluation patient to responsive therapy discussion with the patient family regarding findings discussion with the admitting physician, Dr. Shea, and documentation of the above Disposition Clinical Impression: Congestive heart failure (CHF), Chest pain, Unstable angina pectoris, Renal insufficiency Disposition: ADMITTED IP TO THIS [facility] Condition: Fair Referrals: Nas Dennis DO [Primary Care Provider] - 1-2 days Decision Date: 10/21/21 Decision Time: 15:00
[2021-10-21 13:08] LABS: Albumin 4.3 g/dL (3.5-5.0); Calcium 8.5 mg/dL (8.4-10.2); Potassium 4.6 mmol/L (3.5-5.1); Total Bilirubin 1.1 mg/dL (0.2-1.3); Total Protein 7.8 g/dL (6.3-8.2)
[2021-10-21 13:09] LABS: Anisocytosis Slight; Basophils # (A) 0.1 k/uL (0-0.2); Basophils % (A) 1 %; Eosinophils # (A) 0.6 k/uL (0-0.7); Eosinophils % (A) 5 %; HCT 34.8 % (39.0-53.0); HGB 11.2 gm/dL (13.0-17.5); Hypochromasia Moderate; Lymphocytes # (A) 0.5 k/uL (1.0-4.8); Lymphocytes % (A) 4 %; MCH 31.2 pg (25.0-35.0); MCHC 32.1 g/dL (31.0-37.0); MCV 97.3 fL (80.0-100.0); Macrocytosis Slight; Mean Platelet Volume 8.8; Monocytes # (A) 0.8 k/uL (0-1.0); Monocytes % (A) 7 %; Neutrophils % (A) 83 %; Platelet Count 247 k/uL (150-450); RBC 3.58 m/uL (4.30-5.90); WBC 12.1 k/uL (3.8-10.6)
--- NOTE | 2021-10-21 14:02 | XR ---
EXAMINATION TYPE: XR chest 2V DATE OF EXAM: 10/21/2021 COMPARISON: X-ray dated 06/25/2020 HISTORY: Chest pain TECHNIQUE: Frontal and lateral views of the chest are obtained. FINDINGS: Congested pulmonary vasculature with prominent interstitial markings suggestive of pulmonary edema. I ncreased cardiac transverse diameter. Small bilateral pleural effusions. No pneumothorax. No gross aggressive bone lesion. IMPRESSION: Signs of acute pulmonary edema/CHF as described above.
[2021-10-21 14:29] LABS: INR 0.9 (<1.2); Prothrombin Time 10.1 sec (9.0-12.0)
[2021-10-21 14:44] LABS: Partial Thromboplastin Time 18.1 sec (22.0-30.0)
[2021-10-21] MEDS ORDERED: NITROGLYCERIN OINT 1 INCH/GM PACKET TOPICAL STA (14:46)
[2021-10-21] MEDS ORDERED: FUROSEMIDE 10 MG/ML 4 ML VIAL IV STA (14:46)
[2021-10-21] MEDS ORDERED: HEPARIN SODIUM 1,000 UN/ML (10ML VL) IV ONE (15:09)
[2021-10-21] MEDS ORDERED: HEPARIN SODIUM 1,000 UN/ML (10ML VL) IV PRN (15:09)
[2021-10-21] MEDS ORDERED: HEPARIN SOD,PORK IN 0.45% NACL 25,000 UNIT in 0.45% NACL 1 250ML.BAG IV SCH (15:15)
[2021-10-21] MEDS ORDERED: NALOXONE 0.4 MG/ML 1 ML VIAL IV PRN (17:06)
[2021-10-21] MEDS ORDERED: LACTULOSE 20 GM/30 ML CUP PO PRN (17:06)
[2021-10-21] MEDS ORDERED: ONDANSETRON 4 MG/2 ML VIAL IVP PRN (17:06)
[2021-10-21] MEDS ORDERED: MELATONIN 3 MG TABLET PO PRN (17:06)
[2021-10-21] MEDS ORDERED: LORazepam 0.5 MG TAB PO PRN (17:06)
[2021-10-21] MEDS ORDERED: ACETAMINOPHEN TAB 325 MG TAB PO PRN (17:06)
[2021-10-21] MEDS ORDERED: CALCIUM CARBONATE 500 MG CHEWABLE PO PRN (17:06)
--- NOTE | 2021-10-21 17:19 | P.HPIM ---
History of Present Illness H&P Date: 10/21/21 Chief Complaint: Short of breath This is a very pleasant 70-year-old patient of Dr. Dennis. Chronic stable medical conditions include diabetes, GERD, hyperlipidemia, essential hypertension, colostomy, CK D. Patient presented to the ER accompanied by his . At least over 6 months patient has been progressively getting more short of breath. My gets short of breath going across the room. Patient chronically has had lower extremity edema with no worsening of the same. Always uses one pillow at night. No orthopnea or PND. No cough. Has some wheezing. Denies working with any gases or fumes previously. Patient has put on about 25 pounds in the last 6 weeks. Patient does snore sometimes. No apnea reported. Patient does follow with his commissioning specialist Dr. Vieyra. Review of systems: GEN.: Tired EYES: None HEENT: None NECK: None RESPIRATORY: As above CARDIOVASCULAR: As above GASTROINTESTINAL: None GENITOURINARY: None MUSCULOSKELETAL: Some joint pains LYMPHATICS: None HEMATOLOGICAL: None PSYCHIATRY: None NEUROLOGICAL: None Past medical history to include: Diabetes, GERD, hyperlipidemia, hypertension, ulcerative colitis with total colectomy and removal of rectum, 22 years ago, prostate cancer treated with radiation treatment. Social history: . 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 No smoking no alcohol. Family history: Lung cancer Physical examination: VITAL SIGNS: 98.5, 70, 24, 1 38 x 65, 93% room air GENERAL: BMI 42.6, laying in bed, mild wheezing. EYES: Pupils equal. Conjunctiva normal. HEENT: External appearance of nose and ears normal, oral cavity grossly normal. NECK: JVD unable to assess; masses not palpable. HEART: First and second heart sounds are normal; some edema. LUNGS: Respiratory rate increased; some wheezing. ABDOMEN: Soft, nontender, liver spleen not palpable, no masses palpable. PSYCH: Alert and oriented x3; mood and affect normal. MUSCULOSKELETAL:No Clubbing/cyanosis;muscles-grossly intact NEUROLOGICAL: Cranial nerves grossly intact; no facial asymmetry, power and sensation grossly intact. LYMPHATICS: No lymph nodes palpable in the axilla and neck INVESTIGATIONS, reviewed in the clinical context: White count 12.1 hemoglobin 11.2 platelets 247 potassium 4.6 BUN 22 creatinine 1.5 Troponin I less than 0.012 ProBNP 535 EKG tracing personally reviewed by me-sinus rhythm. Nonspecific T-wave changes. Chest x-ray film personally reviewed by me-cardiomegaly. Venous thrombus. Left pleural effusion. Previous testin-D echocardiogram [June 2020]: EF 55-60% Assessment and plan: -Patient presented increasing shortness of breath for at least 6 months. No orthopnea PND. Some chronic edema. Tired. Has had no previous cardiac history. Probably congestive heart exacerbation. We'll also like to rule out pulmonary fibrosis. IV Lasix 80 mg every 12. Cardiac diet. Fluid restriction. 2-D echo. Cardiac consultation -Diabetes mellitus type 2, chronically on insulin. Follow Accu-Cheks. Resume insulin -Essential hypertension Tenormin 50 mg a day. Norvasc 5 mg a day -Hyperuricemia Allopurinol 100 mg a day -Blood outflow obstruction Flomax 0.4 mg daily -GERD Prilosec 20 mg a day -Hyperlipidemia Lipitor 20 mg a day -Morbid obesity BMI 43.6 Weight loss measures. Consult dietitian -Chronic kidney disease stage III with diabetic nephropathy and hypertensive nephrosclerosis Check UA. Renal ultrasound. Follow renal function IV Lasix 80 mg every 12. 2-D echocardiogram. Renal ultrasound. UA. Fluid restriction. Telemetry. Cardiac consultation. Resume home medications. Accu- Cheks. Care was discussed with the patient and at the bedside. Questions answered. Past Medical History Past Medical History: Diabetes Mellitus, GERD/Reflux, Hyperlipidemia, Hypertension Additional Past Medical History / Comment(s): HX OF ULCERATIVE COLITIS, PARASTOMAL HERNIA History of Any Multi-Drug Resistant Organisms: MRSA Date of last positivie culture/infection: 11/07/14 MDRO Source:: Scalp Past Surgical History: Appendectomy, Bowel Resection Additional Past Surgical History / Comment(s): COLECTOMY, RECTUM REMOVED, ELLIOTT CATARACTS Past Anesthesia/Blood Transfusion Reactions: No Reported Reaction Past Psychological History: No Psychological Hx Reported Smoking Status: Never smoker Past Alcohol Use History: None Reported Past Drug Use History: None Reported - Past Family History Mother Family Medical History: Cancer Additional Family Medical History / Comment(s): LUNG Father Family Medical History: Cancer Additional Family Medical History / Comment(s): MELANOMA/BRAIN Medications and Allergies Home Medications Medication Instructions Recorded Confirmed Type Atorvastatin Calcium [Lipitor] 20 mg PO DAILY 12/31/14 10/21/21 History Insulin Glargine,Hum.rec.anlog 50 units SQ HS 12/31/14 10/21/21 History [Toujeo Solostar] Omeprazole [PriLOSEC] 20 mg PO DAILY 12/31/14 10/21/21 History atenoloL [Tenormin] 50 mg PO DAILY 12/31/14 10/21/21 History Aspirin EC [Ecotrin Low Dose] 81 mg PO DAILY 11/08/18 10/21/21 History Insulin Aspart [NovoLOG Flexpen] See Protocol SQ AC-TID 11/08/18 10/21/21 History Ergocalciferol (Vitamin D2) 1,250 mcg PO Q14D 06/25/20 10/21/21 History [Drisdol (50,000 Iu)] Tamsulosin HCl [Flomax] 0.4 mg PO PC-SUPPER 06/25/20 10/21/21 History Dapagliflozin Propanediol [Farxiga] 5 mg PO DAILY 10/21/21 10/21/21 History Escitalopram [Lexapro] 10 mg PO DAILY 10/21/21 10/21/21 History Torsemide [Demadex] 10 mg PO DAILY 10/21/21 10/21/21 History allopurinoL [Zyloprim] 100 mg PO DAILY 10/21/21 10/21/21 History amLODIPine [Norvasc] 5 mg PO DAILY 10/21/21 10/21/21 History Allergies Allergy/AdvReac Type Severity Reaction Status Date / Time ibuprofen [From Motrin] Allergy Anaphylaxis Verified 10/21/21 13:39 Physical Exam Vitals: Vital Signs Temp Pulse Resp BP Pulse Ox 10/21/21 16:43 62 20 144/58 93 L 10/21/21 15:16 65 20 150/50 96 10/21/21 14:00 72 137/47 97 10/21/21 11:40 98.5 F 70 24 138/65 93 L Intake and Output 10/21/21 10/21/21 10/21/21 06:59 14:59 22:59 Other: Weight 122.47 kg Results CBC & Chem 7: 10/21/21 12:47 10/21/21 12:47 Labs: Abnormal Lab Results - Last 24 Hours (Table) 10/21/21 10/21/21 10/21/21 Range/Units 12:47 12:47 14:01 WBC 12.1 H (3.8-10.6) k/uL RBC 3.58 L (4.30-5.90) m/uL Hgb 11.2 L (13.0-17.5) gm/dL Hct 34.8 L (39.0-53.0) % RDW 16.0 H (11.5-15.5) % Neutrophils # 10.0 H (1.3-7.7) k/uL Lymphocytes # 0.5 L (1.0-4.8) k/uL APTT 18.1 L (22.0-30.0) sec BUN 22 H (9-20) mg/dL Creatinine 1.50 H (0.66-1.25) mg/dL Glucose 163 H (74-99) mg/dL Lipase 14 L (23-300) U/L
[2021-10-21] MEDS: INSULIN ASPART (NovoLOG) 100 UNIT/ML VIAL SQ SCH (17:42)
[2021-10-21 17:44] LABS: Glucose,Whole Blood 189 mg/dL (70-110)
--- NOTE | 2021-10-21 18:05 | US ---
EXAMINATION TYPE: US kidneys/renal and bladder DATE OF EXAM: 10/21/2021 COMPARISON: NONE CLINICAL HISTORY: assess for CK D. CKD EXAM MEASUREMENTS: Right Kidney: 10.2 x 5.9 x 4.9 cm Left Kidney: 10.4 x 4.7 x 5.0 cm Right Kidney: No hydronephrosis or masses seen Left Kidney: Limited visualization due to patient body habitus. Bladder: Not seen There is no evidence for hydronephrosis at this point in time. No nephrolithiasis is seen. No brando s are identified. Difficult exam due to patient body habitus IMPRESSION: No evidence of hydronephrosis.
[2021-10-21 18:25] LABS: Appearance,Urine Clear (Clear); Bilirubin,Urine Negative (Negative); Blood,Urine Negative (Negative); Color,Urine Yellow; Glucose,Urine (UA) 4+ (Negative); Hyaline Casts,Urine 3 /lpf (0-2); Ketones,Urine Negative (Negative); Leukocyte Esterase,Urine Negative (Negative); Mucus,Urine Rare /hpf; Nitrite,Urine Negative (Negative); Protein,Urine 1+ (Negative); RBC,Urine <1 /hpf (0-5); Specific Gravity,Urine 1.011 (1.001-1.035); Squamous Epithelial Cell,Urine <1 /hpf (0-4); Urobilinogen,Urine <2.0 mg/dL (<2.0); WBC,Urine <1 /hpf (0-5)
[2021-10-21] MEDS: NITROGLYCERIN OINT 1 INCH/GM PACKET TOPICAL SCH ×2 (18:36→20:41)
[2021-10-21] MEDS: TAMSULOSIN 0.4 MG CAP.ER.24H PO SCH (18:37)
[2021-10-21 20:22] LABS: Glucose,Whole Blood 244 mg/dL (70-110)
[2021-10-21] MEDS: FUROSEMIDE 10 MG/ML 10 ML VIAL IV SCH (20:29)
[2021-10-21] MEDS: INSULIN DETEMIR (LEVEMIR) 100 UNIT/ML SYR SQ SCH (20:29)
--- NOTE | 2021-10-21 23:49 | CT ---
EXAMINATION TYPE: CT chest wo con DATE OF EXAM: 10/21/2021 COMPARISON: 01/23/2018 HISTORY: Rule out pulmonary fibrosis CT DLP: 955.4 mGycm Automated exposure control for dose reduction was used. Images obtained from the thoracic inlet to the diaphragm with no contrast. There are bilateral pleural effusions. Heart size is fairly normal. No pericardial effusion. There is some mild subsegmental atelectasis at the lung bases. There are multiple mediastinal and paratrachea l lymph nodes that measure up to 1 cm. Thoracic aorta appears intact. No aneurysm. The thoracic spine is intact. No compression fracture. Sternum is intact. There are some calcified ga llstones. IMPRESSION: Mild bilateral pleural effusions with basilar subsegmental atelectasis. Pleural fluid and atelectasis are new compared to old exam. There are some nonspecific mediastinal lymph nodes slightly increased compared to the old exam. No suspicious pulmonary mass. Cholelithiasis with gallstones increased compared to old exam.
[2021-10-22] MEDS ORDERED: FUROSEMIDE 40 MG TAB PO SCH
[2021-10-22 05:51] LABS: Glucose,Whole Blood 159 mg/dL (70-110)
[2021-10-22] MEDS: INSULIN ASPART (NovoLOG) 100 UNIT/ML VIAL SQ SCH ×3 (06:11→18:08)
[2021-10-22] MEDS: PANTOPRAZOLE 40 MG TABLET PO SCH (06:11)
[2021-10-22 06:17] LABS: Calcium 8.7 mg/dL (8.4-10.2); Potassium 4.9 mmol/L (3.5-5.1)
[2021-10-22 06:56] LABS: Basophils # (A) 0.1 k/uL (0-0.2); Basophils % (A) 1 %; Eosinophils # (A) 0.2 k/uL (0-0.7); Eosinophils % (A) 3 %; HCT 31.7 % (39.0-53.0); HGB 9.9 gm/dL (13.0-17.5); Hypochromasia Marked; Lymphocytes # (A) 0.5 k/uL (1.0-4.8); Lymphocytes % (A) 6 %; MCH 30.6 pg (25.0-35.0); MCHC 31.2 g/dL (31.0-37.0); MCV 98.2 fL (80.0-100.0); Macrocytosis Slight; Mean Platelet Volume 8.7; Monocytes # (A) 0.8 k/uL (0-1.0); Monocytes % (A) 10 %; Neutrophils # (A) 6.2 k/uL (1.3-7.7); Neutrophils % (A) 78 %; Platelet Count 182 k/uL (150-450); RBC 3.23 m/uL (4.30-5.90); RDW 15.9 % (11.5-15.5); WBC 7.9 k/uL (3.8-10.6)
[2021-10-22] MEDS: FUROSEMIDE 10 MG/ML 10 ML VIAL IV SCH ×2 (08:33→21:02)
[2021-10-22] MEDS: amLODIPine 5 MG TAB PO SCH (08:37)
[2021-10-22] MEDS: ASPIRIN 81 MG PO SCH (08:37)
[2021-10-22] MEDS: ESCITALOPRAM 10 MG TAB PO SCH (08:37)
[2021-10-22] MEDS: ATORVASTATIN 20 MG TAB PO SCH (08:37)
[2021-10-22] MEDS: allopurinoL 100 MG TAB PO SCH (08:37)
[2021-10-22] MEDS: atenoloL 50 MG TAB PO SCH (08:37)
[2021-10-22] MEDS: NITROGLYCERIN OINT 1 INCH/GM PACKET TOPICAL SCH (08:47)
[2021-10-22] MEDS ORDERED: TORSEMIDE 20 MG TAB PO SCH (09:00)
--- NOTE | 2021-10-22 11:09 | CA ---
Transthoracic Echo Report Name: Mike Vidal Age: 70 Gender: M : 1950 Exam Date: 10/22/2021 08:47 Exam Location: [place] [facility] Ht (in): 65 Wt (lb): 273 Ordering Physician: Jamaal Shea MD Attending/Referring Phys: Health Plan Advisor Chery Son RDCS Procedure CPT: Indications: chf Cardiac Hx: Technical Quality: Technically difficult study Contrast 1: Lumason Total Dose (mL): 3 Contrast 2: Total Dose (mL): MEASUREMENTS (Male / Female) Normal Values 2D ECHO LV Diastolic Diameter PLAX 4.9 cm 4.2 - 5.9 / 3.9 - 5.3 cm LV Systolic Diameter PLAX 3.5 cm IVS Diastolic Thickness 1.3 cm 0.6 - 1.0 / 0.6 - 0.9 cm LVPW Diastolic Thickness 1.6 cm 0.6 - 1.0 / 0.6 - 0.9 cm LV Relative Wall Thickness 0.6 RV Internal Dim ED PLAX 3.0 cm M-MODE Aortic Root Diameter MM 3.4 cm LA Systolic Diameter MM 3.9 cm LA Ao Ratio MM 1.2 AV Cusp Separation MM 2.1 cm DOPPLER MV Area PHT 2.6 cm??? Mitral E Point Velocity 114.6 cm/s Mitral A Point Velocity 83.0 cm/s Mitral E to A Ratio 1.4 MV Deceleration Time 289.9 ms MV E' Velocity 5.7 cm/s Mitral E to MV E' Ratio 20.1 TR Peak Velocity 291.0 cm/s TR Peak Gradient 33.9 mmHg Right Ventricular Systolic Press 38.9 mmHg FINDINGS Left Ventricle Left ventricular ejection fraction is estimated at 50-55%. Normal Left ventricular size, mild wall thickness Right Ventricle The right ventricle is normal in size and function. Right Atrium The right atrium is normal in size. Left Atrium The left atrium is normal in size. Mitral Valve Structurally normal mitral, There is mild mitral regurgitation. Aortic Valve Structurally normal aortic valve without significant sclerosis or stenosis. There is no aortic regurgitation. Tricuspid Valve Structurally normal tricuspid valve without significant stenosis. Pulmonary artery systolic pressure is normal. Pulmonic Valve Structurally normal pulmonic valve without significant stenosis. There is no pulmonic regurgitation. Pericardium Normal pericardium without effusion. Aorta Normal aortic root dimension. CONCLUSIONS Normal LV size and systolic function Previewed by: Dr. Gurvinder Ortiz MD (Electronically Signed) Final Date: 22 October 2021 11:08
[2021-10-22 11:48] LABS: Glucose,Whole Blood 128 mg/dL (70-110)
--- NOTE | 2021-10-22 12:37 | P.CRDCN ---
History of Present Illness Consult date: 10/22/21 History of present illness: HISTORY OF PRESENT ILLNESS: This is a 70-year-old male with a past medical history significant for hypertension, hyperlipidemia, and congestive heart failure. Patient follows in the office with Dr. Bales. We have been asked to see the patient in consultation for congestive heart failure. Patient examined at the bedside. Patient reports he has been feeling short of breath recently but over the past few days it has g alize progressively worse. He reports yesterday he began having some chest pain that went up into his shoulder and neck which concerned him so he came to the emergency room for further evaluation. The patient denies any further chest pain since coming to the hospital. He does report increased waking over the past few weeks and increased lower extremity edema. He reports he has been compliant with his medications. He also reports he has been compliant with a low-sodium diet. * EKG reveals sinus mechanism with no signs of acute ischemia * Chest xray signs of acute pulmonary edema/CHF * Laboratory data: WBC 7.9. Hemoglobin 9.9. Platelet count 182. Sodium 137. Potassium 4.9. BUN 1229. Creatinine 1.98. Troponin negative 3 * Current home cardiac medications include Aspirin 81 mg daily, Lipitor 20 mg daily, Demadex 10 mg daily, atenolol 50 mg daily, and amlodipine 5 mg daily * echocardiogram obtained revealing ejection fraction 50-55%, mild MR REVIEW OF SYSTEMS: At the time of my exam: CONSTITUTIONAL: Denies fever or chills. HEENT: Denies blurred vision, vision changes, or eye pain. Denies hemoptysis CARDIOVASCULAR: Denies chest pain. Denies orthopnea. Denies PND. Denies palpitations RESPIRATORY: Denies shortness of breath. GASTROINTESTINAL: Denies abdominal pain. Denies nausea or vomiting. HEMATOLOGIC: Denies bleeding disorders. GENITOURINARY: Denies any blood in urine. SKIN: Denies pruitis. Denies rash. PHYSICAL EXAM: VITAL SIGNS: Reviewed. GENERAL: Well-developed in no acute distress. HEENT: Head is normocephalic. Pupils are equal, round. Sclerae anicteric. Mucous membranes of the mouth are moist. Neck supple. No JVD or thyromegaly LUNGS: Respirations even and unlabored. Lungs diminished with bibasilar crackles HEART: Regular rate and rhythm. S1 and S2 heard. ABDOMEN: Soft. Nondistended. Nontender. EXTREMITIES: Normal range of motion. No clubbing or cyanosis. Peripheral pulses intact. 2+ bilateral lower extremity edema NEUROLOGIC: Awake and alert. Oriented x 3. ASSESSMENT: Shortness of breath Acute on chronic heart failure with preserved ejection fraction Chest pain, troponins negative 3 Hypertension Hyperlipidemia PLAN: An acute coronary event has been ruled out Discontinue IV heparin Resume home cardiac medications Continue IV Lasix 80 mg every 12 hours Monitor kidney function Daily weight Accurate I&O Further recommendations pending patient's course Nurse practitioner note has been reviewed by physician. Signing provider agrees with the documented findings, assessment, and plan of care. Past Medical History Past Medical History: Cancer, Chest Pain / Angina, Diabetes Mellitus, Eye Disorder, GERD/Reflux, Hyperlipidemia, Hypertension, Osteoarthritis (OA), Prosta te Disorder, Renal Disease, Sleep Apnea/CPAP/BIPAP Additional Past Medical History / Comment(s): HX OF ULCERATIVE COLITIS, PARASTOMAL HERNIA, PROSTATE CA WITH RADIATION AND CHEMO IN 2020, LOW KIDNEY FUNCTION History of Any Multi-Drug Resistant Organisms: MRSA Date of last positivie culture/infection: 11/07/14 MDRO Source:: Scalp Past Surgical History: Appendectomy, Bowel Resection, Orthopedic Surgery Additional Past Surgical History / Comment(s): COLECTOMY, RECTUM REMOVED, ELLIOTT CATARACTS, ILEOSTOMY, HERNIA SURGERY, ORTHO SURGERY Past Anesthesia/Blood Transfusion Reactions: No Reported Reaction Past Psychological History: No Psychological Hx Reported Smoking Status: Never smoker Past Alcohol Use History: None Reported Past Drug Use History: None Reported - Past Family History Mother Family Medical History: Cancer Additional Family Medical History / Comment(s): LUNG Father Family Medical History: Cancer Additional Family Medical History / Comment(s): MELANOMA/BRAIN Medications and Allergies Home Medications Medication Instructions Recorded Confirmed Type Atorvastatin Calcium [Lipitor] 20 mg PO DAILY 12/31/14 10/21/21 History Insulin Glargine,Hum.rec.anlog 50 units SQ HS 12/31/14 10/21/21 History [Toujeo Solostar] Omeprazole [PriLOSEC] 20 mg PO DAILY 12/31/14 10/21/21 History atenoloL [Tenormin] 50 mg PO DAILY 12/31/14 10/21/21 History Aspirin EC [Ecotrin Low Dose] 81 mg PO DAILY 11/08/18 10/21/21 History Insulin Aspart [NovoLOG Flexpen] See Protocol SQ AC-TID 11/08/18 10/21/21 History Ergocalciferol (Vitamin D2) 1,250 mcg PO Q14D 06/25/20 10/21/21 History [Drisdol (50,000 Iu)] Tamsulosin HCl [Flomax] 0.4 mg PO PC-SUPPER 06/25/20 10/21/21 History Dapagliflozin Propanediol [Farxiga] 5 mg PO DAILY 10/21/21 10/21/21 History Escitalopram [Lexapro] 10 mg PO DAILY 10/21/21 10/21/21 History Torsemide [Demadex] 10 mg PO DAILY 10/21/21 10/21/21 History allopurinoL [Zyloprim] 100 mg PO DAILY 10/21/21 10/21/21 History amLODIPine [Norvasc] 5 mg PO DAILY 10/21/21 10/21/21 History Allergies Allergy/AdvReac Type Severity Reaction Status Date / Time ibuprofen [From Motrin] Allergy Anaphylaxis Verified 10/21/21 18:29 Physical Exam Vitals: Vital Signs Temp Pulse Pulse Resp BP BP Pulse Ox 10/22/21 08:26 97.6 F 57 L 20 140/57 96 10/22/21 03:40 97.8 F 53 L 18 160/54 98 10/21/21 23:22 98.7 F 48 L 20 141/56 97 10/21/21 20:00 98.8 F 63 20 150/85 95 10/21/21 17:34 63 18 131/55 10/21/21 16:43 62 20 144/58 93 L 10/21/21 15:16 65 20 150/50 96 10/21/21 14:00 72 137/47 97 10/21/21 11:40 98.5 F 70 24 138/65 93 L Intake and Output 10/21/21 10/22/21 10/22/21 22:59 06:59 14:59 Intake Total 56.633 Output Total 730 Balance 56.633 -730 Intake: Intake, IV Titration 56.633 Amount Heparin Sod,Pork in 0.45% 56.633 NaCl 25,000 unit In 0.45 % NaCl 1 250ml.bag @ 8.16 UNITS/KG/HR 9.994 mls/hr IV .Q24H [facility] Rx#: [id number] Output: Urine 550 Stool 180 Other: Voiding Method Toilet Urinal Weight 122.47 kg 124.1 kg Results 10/22/21 05:39 10/22/21 05:39 Cardiac Enzymes 10/21/21 10/21/21 10/21/21 Range/Units 12:47 12:47 15:53 AST 18 (17-59) U/L Troponin I <0.012 <0.012 (0.000-0.034) ng/mL 10/21/21 Range/Units 19:35 AST (17-59) U/L Troponin I <0.012 (0.000-0.034) ng/mL Coagulation 10/21/21 10/21/21 10/22/21 Range/Units 14:01 21:32 05:39 PT 10.1 (9.0-12.0) sec APTT 18.1 L 33.8 H 47.0 H (22.0-30.0) sec CBC 10/21/21 10/22/21 Range/Units 12:47 05:39 WBC 12.1 H 7.9 (3.8-10.6) k/uL RBC 3.58 L 3.23 L (4.30-5.90) m/uL Hgb 11.2 L 9.9 L (13.0-17.5) gm/dL Hct 34.8 L 31.7 L (39.0-53.0) % Plt Count 247 182 (150-450) k/uL Comprehensive Metabolic Panel 10/21/21 10/22/21 Range/Units 12:47 05:39 Sodium 138 137 (137-145) mmol/L Potassium 4.6 4.9 (3.5-5.1) mmol/L Chloride 104 104 (98-107) mmol/L Carbon Dioxide 22 25 (22-30) mmol/L BUN 22 H 29 H (9-20) mg/dL Creatinine 1.50 H 1.98 H (0.66-1.25) mg/dL Glucose 163 H 154 H (74-99) mg/dL Calcium 8.5 8.7 (8.4-10.2) mg/dL AST 18 (17-59) U/L ALT 12 (4-49) U/L Alkaline Phosphatase 118 (38-126) U/L Total Protein 7.8 (6.3-8.2) g/dL Albumin 4.3 (3.5-5.0) g/dL Current Medications Generic Name Dose Route Start Last Admin Trade Name Freq PRN Reason Stop Dose Admin Acetaminophen 650 mg 10/21/21 17:06 10/21/21 18:37 Acetaminophen Tab 325 Mg Tab PO 650 mg Q6HR PRN Administration Mild Pain or Fever > 100.5 Allopurinol 100 mg 10/22/21 09:00 10/22/21 08:37 Allopurinol 100 Mg Tab PO 100 mg DAILY JOSÉ Administration Amlodipine Besylate 5 mg 10/22/21 09:00 10/22/21 08:37 Amlodipine 5 Mg Tab PO 5 mg DAILY JOSÉ Administration Aspirin 81 mg 10/22/21 09:00 10/22/21 08:37 Aspirin 81 Mg PO 81 mg DAILY JOSÉ Administration Atenolol 50 mg 10/22/21 09:00 10/22/21 08:37 Atenolol 50 Mg Tab PO 50 mg DAILY JOSÉ Administration Atorvastatin Calcium 20 mg 10/22/21 09:00 10/22/21 08:37 Atorvastatin 20 Mg Tab PO 20 mg DAILY JOSÉ Administration Calcium Carbonate/Glycine 1,000 mg 10/21/21 17:06 Calcium Carbonate 500 Mg Chewable PO Q4HR PRN Dyspepsia Ergocalciferol 1,250 mcg 10/27/21 09:00 Ergocalciferol 1,250 Mcg (50,000 Iu) Capsule PO Q14D JOSÉ Escitalopram Oxalate 10 mg 10/22/21 09:00 10/22/21 08:37 Escitalopram 10 Mg Tab PO 10 mg DAILY JOSÉ Administration Furosemide 80 mg 10/21/21 21:00 10/22/21 08:33 Furosemide 10 Mg/Ml 10 Ml Vial IV 80 mg Q12HR JOSÉ Administration Heparin Sodium (Porcine) 0 unit 10/21/21 15:09 Heparin Sodium 1,000 Un/Ml (10ml Vl) IV PER PROTOCOL PRN Low PTT Protocol Heparin Sodium/Sodium Chloride 250 mls @ 9.994 mls/hr 10/21/21 15:15 10/21/21 22:13 25,000 unit/ Sodium Chloride IV 11.16 units/kg/hr .Q24H JOSÉ 13.668 mls/hr Titration Protocol 8.16 UNITS/KG/HR Insulin Aspart 0 unit 10/21/21 17:30 10/22/21 06:11 Insulin Aspart (Novolog) 100 Unit/Ml Vial SQ 2 unit AC-TID JOSÉ Administration Protocol Insulin Detemir 50 unit 10/21/21 21:00 10/21/21 20:29 Insulin Detemir (Levemir) 100 Unit/Ml Syr SQ 50 unit HS JOSÉ Administration Lactulose 20 gm 10/21/21 17:06 Lactulose 20 Gm/30 Ml Cup PO DAILY PRN Constipation Lorazepam 0.5 mg 10/21/21 17:06 Lorazepam 0.5 Mg Tab PO Q6HR PRN Anxiety Melatonin 3 mg 10/21/21 17:06 Melatonin 3 Mg Tablet PO HS PRN Insomnia Naloxone HCl 0.2 mg 10/21/21 17:06 Naloxone 0.4 Mg/Ml 1 Ml Vial IV Q2M PRN Opioid Reversal Dapagliflozin 5 mg 10/22/21 09:00 10/22/21 08:47 Propanediol [Farxiga PO Not Given ] 5 Mg Tablet DAILY [facility] Ondansetron HCl 4 mg 10/21/21 17:06 Ondansetron 4 Mg/2 Ml Vial IVP Q8HR PRN Nausea And Vomiting Pantoprazole Sodium 40 mg 10/22/21 07:30 10/22/21 06:11 Pantoprazole 40 Mg Tablet PO 40 mg AC-BRKFST JOSÉ Administration Tamsulosin HCl 0.4 mg 10/21/21 18:30 10/21/21 18:37 Tamsulosin 0.4 Mg Cap.Er.24h PO 0.4 mg PC-SUPPER JOSÉ Administration Intake and Output 10/21/21 10/22/21 10/22/21 22:59 06:59 14:59 Intake Total 56.633 Output Total 730 Balance 56.633 -730 Intake: Intake, IV Titration 56.633 Amount Heparin Sod,Pork in 0.45% 56.633 NaCl 25,000 unit In 0.45 % NaCl 1 250ml.bag @ 8.16 UNITS/KG/HR 9.994 mls/hr IV .Q24H [facility] Rx#: [id number] Output: Urine 550 Stool 180 Other: Voiding Method Toilet Urinal Weight 122.47 kg 124.1 kg 10/22/21 05:39 10/22/21 05:39
[2021-10-22 13:21] LABS: INR 1.1 (<1.2); Prothrombin Time 11.6 sec (9.0-12.0)
--- NOTE | 2021-10-22 16:16 | P.PN ---
Progress Note - Text Progress Note Date: 10/22/21 Chief Complaint: Short of breath This is a very pleasant 70-year-old patient of Dr. Dennis. Chronic stable medical conditions include diabetes, GERD, hyperlipidemia, essential hypertension, colostomy, CK D. Patient presented to the ER accompanied by his . At least over 6 months patient has been progressively getting more short of breath. My gets short of breath going across the room. Patient chronically has had lower extremity edema with no worsening of the same. Always uses one pillow at night. No orthopnea or PND. No cough. Has some wheezing. Denies working with any gases or fumes previously. Patient has put on about 25 pounds in the last 6 weeks. Patient does snore sometimes. No orthopnea Patient does follow with his supervisor drapery hanging Dr. Vieyra. Patient was started on IV Lasix for CHF. October 22: Breathing a bit better. Some worsening renal function. Nephrology consulted. Patient does follow with Dr. Guerin. 2-D echo shows preserved LV function. EF 50-55%. Discussed with patient and . On IV Lasix 80 mg every 12 Active Medications Acetaminophen (Acetaminophen Tab 325 Mg Tab) 650 mg PO Q6HR PRN PRN Reason: Mild Pain or Fever > 100.5 Last Admin: 10/21/21 18:37 Dose: 650 mg Allopurinol (Allopurinol 100 Mg Tab) 100 mg PO DAILY [facility] Last Admin: 10/22/21 08:37 Dose: 100 mg Amlodipine Besylate (Amlodipine 5 Mg Tab) 5 mg PO DAILY [facility] Last Admin: 10/22/21 08:37 Dose: 5 mg Aspirin (Aspirin 81 Mg) 81 mg PO DAILY [facility] Last Admin: 10/22/21 08:37 Dose: 81 mg Atenolol (Atenolol 50 Mg Tab) 50 mg PO DAILY [facility] Last Admin: 10/22/21 08:37 Dose: 50 mg Atorvastatin Calcium (Atorvastatin 20 Mg Tab) 20 mg PO DAILY [facility] Last Admin: 10/22/21 08:37 Dose: 20 mg Calcium Carbonate/Glycine (Calcium Carbonate 500 Mg Chewable) 1,000 mg PO Q4HR PRN PRN Reason: Dyspepsia Ergocalciferol (Ergocalciferol 1,250 Mcg (50,000 Iu) Capsule) 1,250 mcg PO Q14D [facility] Escitalopram Oxalate (Escitalopram 10 Mg Tab) 10 mg PO DAILY [facility] Last Admin: 10/22/21 08:37 Dose: 10 mg Furosemide (Furosemide 10 Mg/Ml 10 Ml Vial) 80 mg IV Q12HR [facility] Last Admin: 10/22/21 08:33 Dose: 80 mg Heparin Sodium (Porcine) (Heparin Sodium 1,000 Un/Ml (10ml Vl)) 0 unit IV PER PROTOCOL PRN; Protocol PRN Reason: Low PTT Insulin Aspart (Insulin Aspart (Novolog) 100 Unit/Ml Vial) 0 unit SQ AC-TID [facility]; Protocol Last Admin: 10/22/21 12:01 Dose: Not Given Insulin Detemir (Insulin Detemir (Levemir) 100 Unit/Ml Syr) 50 unit SQ HS [facility] Last Admin: 10/21/21 20:29 Dose: 50 unit Lactulose (Lactulose 20 Gm/30 Ml Cup) 20 gm PO DAILY PRN PRN Reason: Constipation Lorazepam (Lorazepam 0.5 Mg Tab) 0.5 mg PO Q6HR PRN PRN Reason: Anxiety Melatonin (Melatonin 3 Mg Tablet) 3 mg PO HS PRN PRN Reason: Insomnia Naloxone HCl (Naloxone 0.4 Mg/Ml 1 Ml Vial) 0.2 mg IV Q2M PRN PRN Reason: Opioid Reversal Dapagliflozin Propanediol [Farxiga ] 5 Mg Tablet 5 mg PO DAILY [facility] Last Admin: 10/22/21 08:47 Dose: Not Given Ondansetron HCl (Ondansetron 4 Mg/2 Ml Vial) 4 mg IVP Q8HR PRN PRN Reason: Nausea And Vomiting Pantoprazole Sodium (Pantoprazole 40 Mg Tablet) 40 mg PO AC-BRKFST [facility] Last Admin: 10/22/21 06:11 Dose: 40 mg Tamsulosin HCl (Tamsulosin 0.4 Mg Cap.Er.24h) 0.4 mg PO PC-SUPPER [facility] Last Admin: 10/21/21 18:37 Dose: 0.4 mg Past medical history to include: Diabetes, GERD, hyperlipidemia, hypertension, ulcerative colitis with total colectomy and removal of rectum, 22 years ago, prostate cancer treated with radiation treatment. Social history: . 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 No smoking no alcohol. Family history: Lung cancer Physical examination: VITAL SIGNS: 97.3, 54, 18, 143/64, 96% on 2 L GENERAL: reclining bed, tired. EYES: Pupils equal. Conjunctiva normal. HEENT: External appearance of nose and ears normal, oral cavity grossly normal. NECK: JVD unable to assess; masses not palpable. HEART: First and second heart sounds are normal; some edema. LUNGS: Respiratory rate increased; some wheezing. ABDOMEN: Soft, nontender, liver spleen not palpable, no masses palpable. Colostomy bag PSYCH: Alert and oriented x3; mood and affect normal. MUSCULOSKELETAL:No Clubbing/cyanosis;muscles-grossly intact INVESTIGATIONS, reviewed in the clinical context: 2-D echocardiogram: EF 50-55%. UA: Protein 1+ Renal ultrasound: Unremarkable CT chest without contrast high resolution: Mild bilateral pleural effusion with basilar atelectasis. Gallstones. October 22: White count 7.9 hemoglobin 9.9 platelets 182 potassium 4.9 BUN 29 creatinine 1.98 White count 12.1 hemoglobin 11.2 platelets 247 potassium 4.6 BUN 22 creatinine 1.5 Troponin I less than 0.012 ProBNP 535 EKG tracing personally reviewed by me-sinus rhythm. Nonspecific T-wave changes. Chest x-ray film personally reviewed by me-cardiomegaly. Venous thrombus. Left pleural effusion. Previous testin-D echocardiogram [June 2020]: EF 55-60% Assessment and plan: -Acute congestive heart for exacerbation from diastolic dysfunction EF 50-55%. IV Lasix 80 mg every 12. Cardiac diet. Fluid restriction. Cardiac consultation -Diabetes mellitus type 2, chronically on insulin. Follow Accu-Cheks. Resume insulin -Essential hypertension Tenormin 50 mg a day. Norvasc 5 mg a day -Hyperuricemia Allopurinol 100 mg a day -Urinary bladder outflow obstruction Flomax 0.4 mg daily -GERD Prilosec 20 mg a day -Hyperlipidemia Lipitor 20 mg a day -Morbid obesity BMI 43.6 Weight loss measures. 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 Renal ultrasound unremarkable. Nephrology consult -Acute kidney injury possibly ATN prerenal from cardiorenal syndrome. [facility] nephrology IV Lasix 80 mg every 12. Fluid restriction. Telemetry. . Care was discussed with the patient and at the bedside. Nephrology consulted. Follow labs.
[2021-10-22 16:58] LABS: Glucose,Whole Blood 189 mg/dL (70-110)
[2021-10-22] MEDS: TAMSULOSIN 0.4 MG CAP.ER.24H PO SCH (18:08)
[2021-10-22] MEDS: INSULIN DETEMIR (LEVEMIR) 100 UNIT/ML SYR SQ SCH (21:01)
[2021-10-22 21:07] LABS: Glucose,Whole Blood 238 mg/dL (70-110)
[2021-10-23 06:11] LABS: Glucose,Whole Blood 218 mg/dL (70-110)
[2021-10-23] MEDS: PANTOPRAZOLE 40 MG TABLET PO SCH (06:49)
[2021-10-23] MEDS: INSULIN ASPART (NovoLOG) 100 UNIT/ML VIAL SQ SCH ×3 (06:49→16:44)
[2021-10-23 08:33] LABS: Calcium 9.1 mg/dL (8.4-10.2); Potassium 4.9 mmol/L (3.5-5.1)
[2021-10-23] MEDS: ASPIRIN 81 MG PO SCH (09:14)
[2021-10-23] MEDS: atenoloL 50 MG TAB PO SCH (09:14)
[2021-10-23] MEDS: FUROSEMIDE 10 MG/ML 10 ML VIAL IV SCH (09:14)
[2021-10-23] MEDS: allopurinoL 100 MG TAB PO SCH (09:14)
[2021-10-23] MEDS: amLODIPine 5 MG TAB PO SCH (09:14)
[2021-10-23] MEDS: ESCITALOPRAM 10 MG TAB PO SCH (09:14)
[2021-10-23] MEDS: ATORVASTATIN 20 MG TAB PO SCH (09:14)
--- NOTE | 2021-10-23 10:40 | P.NPCON ---
History of Present Illness - Reason for Consult Consult date: 10/23/21 acute renal failure - Chief Complaint Shortness of breath - History of Present Illness This is a 70-year-old male seen in consultation because of chronic kidney disease and acute kidney injury He came in because of worsening shortness of breath over the last few months he has chronic stable edema. Previously has been seen by us in the office every 6 month approximately. His creatinine baseline is 2.23 as of 06/26/2020. 2.01 on 06/25/2020, 1.99 on 11/08/2018 and 1.9 to as of 2018. On admission on 10/21/2021 creatinine was 1.5 has gone up to 2.09. Currently he is feeling much better much less short of breath. He sees is making small amounts of urine. 24 hour urine is documented at 5 75 mL and 730 mL for the last 2 days. Intake is not well documented Patient denies any fever chills cough nausea vomiting diarrhea abdominal pain no dysuria frequency. Workup here in the hospital shows an ultrasound 10.1 10.4 cm right and left kidney no hydronephrosis, scan of the abdomen shows cholelithiasis bilateral mild pleural effusion. Chest x-ray consistent with congestive heart failure. His past history significant for diabetes, colostomy for ulcerative colitis total colectomy 22 years ago, prostate cancer with radiation but no current history of prostatism On examination is awake alert oriented comfortable. No JVP noted neck is supple no facial asymmetry Lungs are clear to auscultation good air entry bilaterally Heart sounds unremarkable for any murmur rub gallop Abdomen is protuberant but nontender no organomegaly noted Extremity exam was mild edema with some chronic skin changes. Neurologically awake alert oriented Impression 1. Chronic kidney disease secondary to nephrosclerosis with 1+ proteinuria possible diabetic nephropathy. Baseline creatinines about 2. 2. Admitted with worsening shortness of breath and congestive heart failure responded to Lasix with improvement in his shortness of breath. 3. Possible acute kidney injury as his creatinine on admission was 1.5 and worsened to 2.09 which is his baseline for the last few years. 4. Anemia with hemoglobin 11.2 on admission and 9.9 now as of yesterday rule out iron deficiency. 5. Mild degree of non-gap acidosis bicarb is 21. Recommendation 1. Change IV Lasix from 80 mg twice a day to torsemide 40 mg by mouth. 2. Patient is hoping to go home, if he is discharged and have given him written instructions to check pressures both standing and sitting, heart rate and daily weight and to come and see us in the office in the next 2 or 3 days. 3. Because of the edema suggests discontinue amlodipine 4. Continue S TLT 2 inhibitor Farxiga cause of his renal profile Hectorol as well as cardioprotective 5. Watch labs. Thank you for this consultation we'll continue to follow if he is in the hospital Past Medical History Past Medical History: Cancer, Chest Pain / Angina, Diabetes Mellitus, Eye Disorder, GERD/Reflux, Hyperlipidemia, Hypertension, Osteoarthritis (OA), Prostate Disorder, Renal Disease, Sleep Apnea/CPAP/BIPAP Additional Past Medical History / Comment(s): HX OF ULCERATIVE COLITIS, PARASTOMAL HERNIA, PROSTATE CA WITH RADIATION AND CHEMO IN 2020, LOW KIDNEY FUNCTION History of Any Multi-Drug Resistant Organisms: MRSA Date of last positivie culture/infection: 11/07/14 MDRO Source:: Scalp Past Surgical History: Appendectomy, Bowel Resection, Orthopedic Surgery Additional Past Surgical History / Comment(s): COLECTOMY, RECTUM REMOVED, ELLIOTT CATARACTS, ILEOSTOMY, HERNIA SURGERY, ORTHO SURGERY Past Anesthesia/Blood Transfusion Reactions: No Reported Reaction Past Psychological History: No Psychological Hx Reported Smoking Status: Never smoker Past Alcohol Use History: None Reported Past Drug Use History: None Reported - Past Family History Mother Family Medical History: Cancer Additional Family Medical History / Comment(s): LUNG Father Family Medical History: Cancer Additional Family Medical History / Comment(s): MELANOMA/BRAIN Medications and Allergies Home Medications Medication Instructions Recorded Confirmed Type Atorvastatin Calcium [Lipitor] 20 mg PO DAILY 12/31/14 10/21/21 History Insulin Glargine,Hum.rec.anlog 50 units SQ HS 12/31/14 10/21/21 History [Toujeo Solostar] Omeprazole [PriLOSEC] 20 mg PO DAILY 12/31/14 10/21/21 History atenoloL [Tenormin] 50 mg PO DAILY 12/31/14 10/21/21 History Aspirin EC [Ecotrin Low Dose] 81 mg PO DAILY 11/08/18 10/21/21 History Insulin Aspart [NovoLOG Flexpen] See Protocol SQ AC-TID 11/08/18 10/21/21 History Ergocalciferol (Vitamin D2) 1,250 mcg PO Q14D 06/25/20 10/21/21 History [Drisdol (50,000 Iu)] Tamsulosin HCl [Flomax] 0.4 mg PO PC-SUPPER 06/25/20 10/21/21 History Dapagliflozin Propanediol [Farxiga] 5 mg PO DAILY 10/21/21 10/21/21 History Escitalopram [Lexapro] 10 mg PO DAILY 10/21/21 10/21/21 History Torsemide [Demadex] 10 mg PO DAILY 10/21/21 10/21/21 History allopurinoL [Zyloprim] 100 mg PO DAILY 10/21/21 10/21/21 History amLODIPine [Norvasc] 5 mg PO DAILY 10/21/21 10/21/21 History Allergies Allergy/AdvReac Type Severity Reaction Status Date / Time ibuprofen [From Motrin] Allergy Anaphylaxis Verified 10/21/21 18:29 Physical Exam Vitals: Vital Signs Temp Pulse Resp BP Pulse Ox 10/23/21 08:00 97.5 F L 62 19 139/77 92 L 10/23/21 04:00 98.4 F 67 19 142/60 95 10/23/21 02:00 62 19 10/23/21 00:00 98.3 F 62 19 139/62 94 L 10/22/21 20:00 98.5 F 72 19 139/65 94 L 10/22/21 18:34 93 L 10/22/21 18:33 98.1 F 60 18 129/60 92 L 10/22/21 12:00 97.3 F L 54 L 18 143/64 96 Intake and Output 10/22/21 10/23/21 10/23/21 22:59 06:59 14:59 Intake Total 120 Output Total 200 400 Balance -80 -400 Intake: Oral 120 Output: Urine 200 400 Other: Voiding Method Toilet Toilet Toilet Urinal Urinal Urinal # Bowel Movements 1 Results - Lab Results Most recent lab results Calcium 9.1 mg/dL (8.4-10.2) 10/23/21 07:48 Magnesium 2.0 mg/dL (1.6-2.3) 10/21/21 12:47 10/22/21 05:39 10/23/21 07:48
[2021-10-23 12:15] LABS: Glucose,Whole Blood 322 mg/dL (70-110)
--- NOTE | 2021-10-23 16:07 | P.PN ---
Subjective Progress Note Date: 10/23/21 This is a 70-year-old male with a past medical history significant for hypertension, hyperlipidemia, and congestive heart failure. Patient follows in the office with Dr. Bales. We have been asked to see the patient in consultation for congestive heart failure. Patient examined at the bedside. Patient reports he has been feeling short of breath recently but over the past few days it has gotten progressively worse. He reports yesterday he began having some chest pain that went up into his shoulder and neck which concerned him so he came to the emergency room for further evaluation. The patient denies any further chest pain since coming to the hospital. He does report increased waking over the past few weeks and increased lower extremity edema. He reports he has been compliant with his medications. He also reports he has been compliant with a low-sodium diet. * EKG reveals sinus mechanism with no signs of acute ischemia * Chest xray signs of acute pulmonary edema/CHF * Laboratory data: WBC 7.9. Hemoglobin 9.9. Platelet count 182. Sodium 137. Potassium 4.9. BUN 1229. Creatinine 1.98. Troponin negative 3 * Current home cardiac medications include Aspirin 81 mg daily, Lipitor 20 mg daily, Demadex 10 mg daily, atenolol 50 mg daily, and amlodipine 5 mg daily * echocardiogram obtained revealing ejection fraction 50-55%, mild MR 10/23 2021: This patient is admitted with increasing shortness of breath and renal failure. Patient was treated with IV Lasix. He was seen by nephrology and advised to change her Lasix to Demadex. Patient had some atypical chest p ain but troponins have been negative. Lungs appeared to be clear. Heart is regular. Increase activity. Patient indicated that he wants to go home. Possible discharge within 24-48 hours Objective - Vital Signs Vital signs: Vital Signs Temp 97.6 F 10/23/21 12:00 Pulse 62 10/23/21 12:00 Resp 19 10/23/21 13:43 BP 151/67 10/23/21 12:00 Pulse Ox 92 L 10/23/21 12:00 FiO2 Intake & Output 10/22/21 10/23/21 10/23/21 18:59 06:59 18:59 Intake Total 188.618 120 100 Output Total 375 200 850 Balance -186.382 -80 -750 Weight 124.6 kg Intake: Intake, IV Titration 188.618 Amount Heparin Sod,Pork in 0.45% 188.618 NaCl 25,000 unit In 0.45 % NaCl 1 250ml.bag @ 8.16 UNITS/KG/HR 9.994 mls/hr IV .Q24H [facility] Rx#: [id number] Oral 120 100 Output: Urine 375 200 850 Other: Voiding Method Toilet Toilet Toilet Urinal Urinal Urinal # Voids 1 # Bowel Movements 1 1 - Exam GENERAL EXAM: Patient is alert and oriented and doesn't appear to be in any acute distress HEENT: Normocephalic. Normal reaction of pupils, equal size, normal range of extraocular motion. No erythema or exudates in the throat. NECK: No masses, no nuchal rigidity. CHEST: No chest wall deformity. LUNGS: Equal air entry with no crackles or wheeze. HEART: S1 and S2 normal with no audible mumurs or gallops. Regular rhythm, femorals equal on both sides.. ABDOMEN: No hepatosplenomegaly, normal bowel sounds, no guarding or rigidity. SKIN: No rashes CENTRAL NERVOUS SYSTEM: No focal deficits. EXTREMITIES: 1-2+ edema - Labs CBC & Chem 7: 10/22/21 05:39 10/23/21 07:48 Labs: Abnormal Lab Results - Last 24 Hours (Table) 10/22/21 10/22/21 10/23/21 Range/Units 16:57 20:43 05:38 Sodium (137-145) mmol/L Carbon Dioxide (22-30) mmol/L BUN (9-20) mg/dL Creatinine (0.66-1.25) mg/dL Glucose (74-99) mg/dL POC Glucose (mg/dL) 189 H 238 H 218 H (70-110) mg/dL 10/23/21 10/23/21 Range/Units 07:48 12:13 Sodium 135 L (137-145) mmol/L Carbon Dioxide 21 L (22-30) mmol/L BUN 41 H (9-20) mg/dL Creatinine 2.09 H (0.66-1.25) mg/dL Glucose 215 H (74-99) mg/dL POC Glucose (mg/dL) 322 H (70-110) mg/dL Assessment and Plan (1) Diastolic CHF Current Visit: Yes Status: Acute Code(s): I50.30 - UNSPECIFIED DIASTOLIC (CONGESTIVE) HEART FAILURE SNOMED Code(s): 022025207 (2) Renal insufficiency Current Visit: Yes Status: Acute Code(s): N28.9 - DISORDER OF KIDNEY AND URETER, UNSPECIFIED SNOMED Code(s): 552937443 (3) Hypertension Current Visit: No Status: Acute Code(s): I10 - ESSENTIAL (PRIMARY) HYPERTENSION SNOMED Code(s): 47482347 (4) Type 2 diabetes mellitus Current Visit: No Status: Acute Code(s): E11.9 - TYPE 2 DIABETES MELLITUS WITHOUT COMPLICATIONS SNOMED Code(s): 77064852 Plan: Agree change in IV Lasix to Demadex. Increase activity. May discontinue amlodipine. Monitor blood pressure. Further recommendations depend upon the clinical course
[2021-10-23 16:20] LABS: Glucose,Whole Blood 232 mg/dL (70-110)
[2021-10-23] MEDS: TORSEMIDE 20 MG TAB PO SCH (16:44)
[2021-10-23 17:56] VITALS: BMI 44.3
[2021-10-23 20:50] LABS: Glucose,Whole Blood 182 mg/dL (70-110)
[2021-10-23] MEDS ORDERED: TAMSULOSIN 0.4 MG CAP.ER.24H PO SCH (21:00)
[2021-10-23] MEDS: INSULIN DETEMIR (LEVEMIR) 100 UNIT/ML SYR SQ SCH (21:23)
--- NOTE | 2021-10-23 21:36 | P.PN ---
Subjective Progress Note Date: 10/23/21 Principal diagnosis: Acute congestive heart for exacerbation from diastolic dysfunction EF 50-55% 70-year-old patient of Dr. Dennis. Chronic stable medical conditions include diabetes, GERD, hyperlipidemia, essential hypertension, colostomy, CK D. Patient presented to the ER accompanied by his . At least over 6 months patient has been progressively getting more short of breath. My gets short of breath going across the room. Patient chronically has had lower extremity edema with no worsening of the same. Always uses one pillow at night. No orthopnea or PND. No cough. Has some wheezing. Denies working with any gases or fumes previously. Patient has put on about 25 pounds in the last 6 weeks. Patient does snore sometimes. No orthopnea Patient does follow with his under water assistant Dr. Vieyra. Patient was started on IV Lasix for CHF. 10/23/2021: Patient is seen and evaluated in room at bedside; Breathing a bit better. Some worsening renal function. Nephrology consulted. Patient does follow with Dr. Guerin. 2-D echo shows preserved LV function. EF 50-55%. On IV Lasix 80 mg every 12 Objective - Vital Signs Vital signs: Vital Signs Temp 97.6 F 10/23/21 12:00 Pulse 62 10/23/21 12:00 Resp 19 10/23/21 13:43 BP 151/67 10/23/21 12:00 Pulse Ox 92 L 10/23/21 12:00 FiO2 Intake & Output 10/22/21 10/23/21 10/23/21 18:59 06:59 18:59 Intake Total 188.618 120 100 Output Total 375 200 850 Balance -186.382 -80 -750 Weight 124.6 kg Intake: Intake, IV Titration 188.618 Amount Heparin Sod,Pork in 0.45% 188.618 NaCl 25,000 unit In 0.45 % NaCl 1 250ml.bag @ 8.16 UNITS/KG/HR 9.994 mls/hr IV .Q24H [facility] Rx#: [id number] Oral 120 100 Output: Urine 375 200 850 Other: Voiding Method Toilet Toilet Toilet Urinal Urinal Urinal # Voids 1 # Bowel Movements 1 1 - Exam GENERAL: reclining bed, tired. EYES: Pupils equal. Conjunctiva normal. HEENT: External appearance of nose and ears normal, oral cavity grossly normal. NECK: JVD unable to assess; masses not palpable. HEART: First and second heart sounds are normal; some edema. LUNGS: Respiratory rate increased; some wheezing. ABDOMEN: Soft, nontender, liver spleen not palpable, no masses palpable. Colostomy bag PSYCH: Alert and oriented x3; mood and affect normal. MUSCULOSKELETAL:No Clubbing/cyanosis;muscles-grossly intact - Labs CBC & Chem 7: 10/22/21 05:39 10/23/21 07:48 Labs: Abnormal Lab Results - Last 24 Hours (Table) 10/22/21 10/22/21 10/23/21 Range/Units 16:57 20:43 05:38 Sodium (137-145) mmol/L Carbon Dioxide (22-30) mmol/L BUN (9-20) mg/dL Creatinine (0.66-1.25) mg/dL Glucose (74-99) mg/dL POC Glucose (mg/dL) 189 H 238 H 218 H (70-110) mg/dL 10/23/21 10/23/21 Range/Units 07:48 12:13 Sodium 135 L (137-145) mmol/L Carbon Dioxide 21 L (22-30) mmol/L BUN 41 H (9-20) mg/dL Creatinine 2.09 H (0.66-1.25) mg/dL Glucose 215 H (74-99) mg/dL POC Glucose (mg/dL) 322 H (70-110) mg/dL Assessment and Plan Assessment: 1. Acute congestive heart for exacerbation from diastolic dysfunction EF 50- 55%. IV Lasix 80 mg every 12. Cardiac diet. Fluid restriction. Cardiac consultation 2. Diabetes mellitus type 2, chronically on insulin. Follow Accu-Cheks. Resume insulin 3. Essential hypertension Tenormin 50 mg a day. Norvasc 5 mg a day 4. Hyperuricemia Allopurinol 100 mg a day 5. Urinary bladder outflow obstruction Flomax 0.4 mg daily 6. Hyperlipidemia Lipitor 20 mg a day 7. Primary osteoarthritis, multiple joints bilateral Tylenol as needed 8. Acute renal injury/Chronic kidney disease stage III with diabetic nephropathy and hypertensive nephrosclerosis; likely ATN, prerenal from cardiorenal syndrome Proteinuria 1+. Renal ultrasound unremarkable. Nephrology consult
[2021-10-24] MEDS: INSULIN ASPART (NovoLOG) 100 UNIT/ML VIAL SQ SCH ×3 (07:09→17:18)
[2021-10-24 07:18] LABS: Glucose,Whole Blood 132 mg/dL (70-110)
[2021-10-24 08:11] LABS: Calcium 9.2 mg/dL (8.4-10.2); Potassium 4.1 mmol/L (3.5-5.1)
[2021-10-24] MEDS: atenoloL 50 MG TAB PO SCH (08:54)
[2021-10-24] MEDS: PANTOPRAZOLE 40 MG TABLET PO SCH (08:54)
[2021-10-24] MEDS: ASPIRIN 81 MG PO SCH (08:54)
[2021-10-24] MEDS: ATORVASTATIN 20 MG TAB PO SCH (08:54)
[2021-10-24] MEDS: allopurinoL 100 MG TAB PO SCH (08:54)
[2021-10-24] MEDS: ESCITALOPRAM 10 MG TAB PO SCH (08:54)
[2021-10-24] MEDS: TORSEMIDE 20 MG TAB PO SCH (08:54)
--- NOTE | 2021-10-24 09:39 | P.PN ---
Subjective Progress Note Date: 10/24/21 This is a 70-year-old male with a past medical history significant for hypertension, hyperlipidemia, and congestive heart failure. Patient follows in the office with Dr. Bales. We have been asked to see the patient in consultation for congestive heart failure. Patient examined at the bedside. Patient reports he has been feeling short of breath recently but over the past few days it has gotten progressively worse. He reports yesterday he began having some chest pain that went up into his shoulder and neck which concerned him so he came to the emergency room for further evaluation. The patient denies any further chest pain since coming to the hospital. He does report increased waking over the past few weeks and increased lower extremity edema. He reports he has been compliant with his medications. He also reports he has been compliant with a low-sodium diet. * EKG reveals sinus mechanism with no signs of acute ischemia * Chest xray signs of acute pulmonary edema/CHF * Laboratory data: WBC 7.9. Hemoglobin 9.9. Platelet count 182. Sodium 137. Potassium 4.9. BUN 1229. Creatinine 1.98. Troponin negative 3 * Current home cardiac medications include Aspirin 81 mg daily, Lipitor 20 mg daily, Demadex 10 mg daily, atenolol 50 mg daily, and amlodipine 5 mg daily * echocardiogram obtained revealing ejection fraction 50-55%, mild MR 10/23: This patient is admitted with increasing shortness of breath and renal failure. Patient was treated with IV Lasix. He was seen by nephrology and advised to change her Lasix to Demadex. Patient had some atypical chest pain but troponins have been negative. Lungs appeared to be clear. Heart is regular. Increase activity. Patient indicated that he wants to go home. Possible discharge within 24-48 hours 10/24/2021: Patient is feeling better. No complaints of orthopnea. Lasix was changed to Demadex and seemed to be responding better to complain chest pain or palpitations. Lungs are clear. Heart is regular. Patient wants to go home. Follow-up as an outpatient Objective - Vital Signs Vital signs: Vital Signs Temp 97.7 F 10/24/21 08:00 Pulse 54 L 10/24/21 08:00 Resp 19 10/24/21 08:00 BP 129/59 10/24/21 08:00 Pulse Ox 91 L 10/24/21 08:00 FiO2 Intake & Output 10/23/21 10/24/21 10/24/21 18:59 06:59 18:59 Intake Total 340 120 120 Output Total 1250 1110 180 Balance -910 -990 -60 Weight 124.6 kg 123.7 kg Intake: Oral 340 120 120 Output: Urine 1250 750 Stool 360 180 Other: Voiding Method Toilet Toilet Toilet Urinal Urinal Urinal # Voids 1 # Bowel Movements 1 - Exam GENERAL EXAM: Patient is alert and oriented and doesn't appear to be in any acute distress HEENT: Normocephalic. Normal reaction of pupils, equal size, normal range of extraocular motion. No erythema or exudates in the throat. NECK: No masses, no nuchal rigidity. CHEST: No chest wall deformity. LUNGS: Equal air entry with no crackles or wheeze. HEART: S1 and S2 normal with no audible mumurs or gallops. Regular rhythm, femorals equal on both sides.. ABDOMEN: No hepatosplenomegaly, normal bowel sounds, no guarding or rigidity. SKIN: No rashes CENTRAL NERVOUS SYSTEM: No focal deficits. EXTREMITIES: 1-2+ edema - Labs CBC & Chem 7: 10/22/21 05:39 10/24/21 07:23 Labs: Abnormal Lab Results - Last 24 Hours (Table) 10/23/21 10/23/21 10/23/21 Range/Units 12:13 16:19 20:30 BUN (9-20) mg/dL Creatinine (0.66-1.25) mg/dL Glucose (74-99) mg/dL POC Glucose (mg/dL) 322 H 232 H 182 H (70-110) mg/dL 10/24/21 10/24/21 Range/Units 06:58 07:23 BUN 44 H (9-20) mg/dL Creatinine 2.06 H (0.66-1.25) mg/dL Glucose 122 H (74-99) mg/dL POC Glucose (mg/dL) 132 H (70-110) mg/dL Assessment and Plan (1) Diastolic CHF Current Visit: Yes Status: Acute Code(s): I50.30 - UNSPECIFIED DIASTOLIC (CONGESTIVE) HEART FAILURE SNOMED Code(s): 226300611 (2) Renal insufficiency Current Visit: Yes Status: Acute Code(s): N28.9 - DISORDER OF KIDNEY AND URETER, UNSPECIFIED SNOMED Code(s): 865876514 (3) Hypertension Current Visit: No Status: Acute Code(s): I10 - ESSENTIAL (PRIMARY) HYPERTENSION SNOMED Code(s): 66597753 (4) Type 2 diabetes mellitus Current Visit: No Status: Acute Code(s): E11.9 - TYPE 2 DIABETES MELLITUS WITHOUT COMPLICATIONS SNOMED Code(s): 10149288 Plan: Patient is feeling better. Lab work showed a creatinine of 2.06. Potassium is 4.1. From [facility], Patient will be discharged home. Follow up as an outpatient. Nephrology follow-up
--- NOTE | 2021-10-24 11:02 | P.PN ---
Subjective Progress Note Date: 10/24/21 Principal diagnosis: This is a 70-year-old male seen in consultation because of worsening shortness of breath significant edema which is stable with acute kidney injury and chronic kidney disease He has been seen in our office previously about 6 months ago. Previous creatinine baseline is 2.23 as of 06/26/2020, 1.9 as of 2018. CK D stage III secondary to nephrosclerosis. Ultrasound done on 10/21/2021 showed 10.1 cm and 10.4; right and left kidney. A computed tomography scan of the abdomen showed cholelithiasis bilateral mild pleural effusion. Chest x-rays consistent with congestive heart failure. His acute kidney injury is deemed to be from cardiorenal syndrome. He was on Lasix IV that was changed to torsemide yesterday at 40 mg as well as I discontinued the amlodipine because of the edema that it can cause. This morning he is feeling much better is on room air shortness of breath significantly improved and he feels his edema is less. His creatinine is stable at 2.06 His vital signs are stable blood pressure 129/59, urine output was 2360. Objective - Vital Signs Vital signs: Vital Signs Temp 97.7 F 10/24/21 08:00 Pulse 54 L 10/24/21 08:00 Resp 19 10/24/21 08:00 BP 129/59 10/24/21 08:00 Pulse Ox 91 L 10/24/21 08:00 FiO2 Intake & Output 10/23/21 10/24/21 10/24/21 18:59 06:59 18:59 Intake Total 340 120 120 Output Total 1250 1110 180 Balance -910 -990 -60 Weight 124.6 kg 123.7 kg Intake: Oral 340 120 120 Output: Urine 1250 750 Stool 360 180 Other: Voiding Method Toilet Toilet Toilet Urinal Urinal Urinal # Voids 1 # Bowel Movements 1 On examination awake alert oriented on room air No JVP noted neck is supple no facial asymmetry Lungs are clear to auscultation fair air entry bilaterally Heart sounds unremarkable for any murmur rub gallop Abdomen is soft protuberant obese, colostomy bag seen Extremity exam was moderate edema Neurologically awake alert oriented. - Labs CBC & Chem 7: 10/22/21 05:39 10/24/21 07:23 Labs: Abnormal Lab Results - Last 24 Hours (Table) 06/25/22 06/25/22 06/25/22 Range/Units 12:13 16:19 20:30 BUN (9-20) mg/dL Creatinine (0.66-1.25) mg/dL Glucose (74-99) mg/dL POC Glucose (mg/dL) 322 H 232 H 182 H (70-110) mg/dL 10/24/21 10/24/21 Range/Units 06:58 07:23 BUN 44 H (9-20) mg/dL Creatinine 2.06 H (0.66-1.25) mg/dL Glucose 122 H (74-99) mg/dL POC Glucose (mg/dL) 132 H (70-110) mg/dL Assessment and Plan Assessment: Impression 1. Chronic kidney disease III, secondary to nephrosclerosis with 1+ proteinuria possible diabetic nephropathy. Baseline creatinines about 2. Proteinuria has not been quantified 2. Admitted with worsening shortness of breath and congestive heart failure responded to Lasix with improvement in his shortness of breath. Currently on torsemide with good response 3. Possible acute kidney injury as his creatinine on admission was 1.5 and worsened to 2.09 which is his baseline for the last few years. 4. Edema secondary to combination of chronic kidney disease cardiorenal syndrome as well as amlodipine 5. Anemia with hemoglobin 11.2 on admission and 9.9 now as of yesterday rule out iron deficiency. Iron saturation pending 6. Mild degree of non-gap acidosis bicarb is 21. Bicarb improved to 26. 7. History of ulcerative colitis and colostomy 8. History of CVA of the prostate with radiation Recommendation 1. Continue torsemide 40 mg by mouth. 2. Patient is hoping to go home, if he is discharged and have given him written instructions to check pressures both standing and sitting, heart rate and daily weight and to come and see us in the office in the next 2 or 3 days. 3. We'll try to avoid medication that can induce edema such as afterload reducers calcium channel blockers unless is really necessary 4. Continue SGLT 2 inhibitor Farxiga cause of his renal profile Hectorol as well as cardioprotective 5. Watch labs.
[2021-10-24 11:52] LABS: Glucose,Whole Blood 239 mg/dL (70-110)
[2021-10-24 12:17] VITALS: TEMP 97.5
[2021-10-24 17:01] LABS: Glucose,Whole Blood 256 mg/dL (70-110)
[2021-10-24 17:19] VITALS: BP 145/66; PULSE 59; RESP 18
[2021-10-27] MEDS ORDERED: ERGOCALCIFEROL 1,250 MCG (50,000 IU) CAPSULE PO SCH (09:00)
== END 2021-10-24 17:45 | disposition home or self-care (01) | DRG 291 ==
LOC: EC 11:36 → 3SCARD 15:40
PROVIDERS: ADMIT Hospitalist; ATTEND Hospitalist
DX: I13.0 Hypertensive heart and chronic kidney disease with heart failure and stage 1 through stage 4 chronic kidney disease, or unspecified chronic kidney disease (principal); I50.33 Acute on chronic diastolic (congestive) heart failure; N17.0 Acute kidney failure with tubular necrosis; E87.2 Acidosis; Z20.822 Contact with and (suspected) exposure to COVID-19; Z68.41 Body mass index [BMI] 40.0-44.9, adult; K51.90 Ulcerative colitis, unspecified, without complications; E11.22 Type 2 diabetes mellitus with diabetic chronic kidney disease; E66.01 Morbid (severe) obesity due to excess calories; N18.30 Chronic kidney disease, stage 3 unspecified; E79.0 Hyperuricemia without signs of inflammatory arthritis and tophaceous disease; E11.21 Type 2 diabetes mellitus with diabetic nephropathy; I34.0 Nonrheumatic mitral (valve) insufficiency; N32.0 Bladder-neck obstruction; E78.5 Hyperlipidemia, unspecified; F41.9 Anxiety disorder, unspecified; G47.00 Insomnia, unspecified; K21.9 Gastro-esophageal reflux disease without esophagitis; K59.00 Constipation, unspecified; K80.20 Calculus of gallbladder without cholecystitis without obstruction; D64.9 Anemia, unspecified; M15.9 Polyosteoarthritis, unspecified; Z79.4 Long term (current) use of insulin; Z79.82 Long term (current) use of aspirin; Z79.84 Long term (current) use of oral hypoglycemic drugs; Z79.899 Other long term (current) drug therapy; Z80.1 Family history of malignant neoplasm of trachea, bronchus and lung; Z80.8 Family history of malignant neoplasm of other organs or systems; Z85.46 Personal history of malignant neoplasm of prostate; Z86.73 Personal history of transient ischemic attack (TIA), and cerebral infarction without residual deficits; Z92.21 Personal history of antineoplastic chemotherapy; Z92.3 Personal history of irradiation; Z93.3 Colostomy status; Z88.6 Allergy status to analgesic agent; Z87.19 Personal history of other diseases of the digestive system
CPT/HCPCS: 36415; 71046; 71250; 76770; 80048; 80053; 81001; 83690; 83735; 83880; 84484; 85025; 85610; 85730; 87635; 93005; 93306; 96374; 96375; 99291

== ENCOUNTER 2021-11-05 16:30 | Inpatient (IN) | payer MEDICARE ==
[2021-11-05] MEDS ORDERED: MORPHINE SULFATE 4 MG/ML SYRINGE IV STA (19:06)
[2021-11-05] MEDS ORDERED: ONDANSETRON 4 MG/2 ML VIAL IVP STA (19:06)
--- NOTE | 2021-11-05 19:08 | ED ---
Abdominal Pain HPI - General Chief Complaint: Abdominal Pain Stated Complaint: Abd Pains Time Seen by Provider: 11/05/21 18:52 Source: patient, RN notes reviewed Mode of arrival: wheelchair Limitations: no limitations - History of Present Illness Initial Comments: This is a pleasant 70-year-old male with a history of congestive heart failure. Patient presents to the emergency department today complaining of abdominal pain which is been progressive over the past 2 weeks. Patient was admitted here for CHF 2 weeks ago. He states he had slight abdominal pain at that time. He continues to have very sharp abdominal pain on a daily basis. Exacerbated by palpation. Alleviated by rest. No nausea or vomiting. No changes in stool output. Patient does have a history of colectomy with colostomy from colitis. No urinary problems. Patient also complaining of shortness of breath which is also been going on for the last few weeks since being admitted. No headache, no fever or chills, no changes in vision or hearing, no sore throat or difficulty with speech, no neck pain, no chest pain , no nausea or vomiting, no changes in urination or bowel movements, no numbness or tingling, no extremity pain, no skin rashes or lesions. - Related Data Home Medications Medication Instructions Recorded Confirmed Atorvastatin Calcium [Lipitor] 20 mg PO DAILY 12/31/14 10/21/21 Insulin Glargine,Hum.rec.anlog 50 units SQ HS 12/31/14 10/21/21 [Toujeo Solostar] Omeprazole [PriLOSEC] 20 mg PO DAILY 12/31/14 10/21/21 atenoloL [Tenormin] 50 mg PO DAILY 12/31/14 10/21/21 Aspirin EC [Ecotrin Low Dose] 81 mg PO DAILY 11/08/18 10/21/21 Insulin Aspart [NovoLOG Flexpen] See Protocol SQ AC-TID 11/08/18 10/21/21 Ergocalciferol (Vitamin D2) 1,250 mcg PO Q14D 06/25/20 10/21/21 [Drisdol (50,000 Iu)] Tamsulosin HCl [Flomax] 0.4 mg PO PC-SUPPER 06/25/20 10/21/21 Escitalopram [Lexapro] 10 mg PO DAILY 10/21/21 10/21/21 allopurinoL [Zyloprim] 100 mg PO DAILY 10/21/21 10/21/21 amLODIPine [Norvasc] 5 mg PO DAILY 10/21/21 10/21/21 Dapagliflozin Propanediol [Farxiga] 10 mg PO DAILY 11/05/21 11/05/21 Previous Rx's Medication Instructions Recorded Melatonin 3 mg PO HS PRN tab 10/24/21 Torsemide [Demadex] 40 mg PO DAILY 30 Days #30 tab 10/24/21 Allergies Allergy/AdvReac Type Severity Reaction Status Date / Time ibuprofen [From Motrin] Allergy Anaphylaxis Verified 11/05/21 22:11 Review of Systems ROS Statement: Those systems with pertinent positive or pertinent negative responses have been documented in the HPI. ROS Other: All systems not noted in ROS Statement are negative. Past Medical History Past Medical History: Cancer, Chest Pain / Angina, Diabetes Mellitus, Eye Disorder, GERD/Reflux, Hyperlipidemia, Hypertension, Osteoarthritis (OA), Prostate Disorder, Renal Disease, Sleep Apnea/CPAP/BIPAP Additional Past Medical History / Comment(s): HX OF ULCERATIVE COLITIS, PARASTOMAL HERNIA, PROSTATE CA WITH RADIATION AND CHEMO IN 2020, LOW KIDNEY FUNCTION History of Any Multi-Drug Resistant Organisms: MRSA Date of last positivie culture/infection: 11/07/14 MDRO Source:: Scalp Past Surgical History: Appendectomy, Bowel Resection, Orthopedic Surgery Additional Past Surgical History / Comment(s): COLECTOMY, RECTUM REMOVED, ELLIOTT CATARACTS, ILEOSTOMY, HERNIA SURGERY, ORTHO SURGERY Past Anesthesia/Blood Transfusion Reactions: No Reported Reaction Past Psychological History: No Psychological Hx Reported Smoking Status: Never smoker Past Alcohol Use History: None Reported Past Drug Use History: None Reported - Past Family History Mother Family Medical History: Cancer Additional Family Medical History / Comment(s): LUNG Father Family Medical History: Cancer Additional Family Medical History / Comment(s): MELANOMA/BRAIN General Exam Limitations: no limitations General appearance: alert, in distress (Mild) Head exam: Present: atraumatic, normocephalic, normal inspection Eye exam: Present: normal appearance, PERRL, EOMI. Absent: scleral icterus, conjunctival injection, periorbital swelling ENT exam: Present: normal exam, mucous membranes moist Neck exam: Present: normal inspection. Absent: tenderness, meningismus, lymphadenopathy Respiratory exam: Present: normal lung sounds bilaterally. Absent: respiratory distress, wheezes, rales, rhonchi, stridor Cardiovascular Exam: Present: regular rate, normal rhythm, normal heart sounds. Absent: systolic murmur, diastolic murmur, rubs, gallop, clicks GI/Abdominal exam: Present: tenderness, guarding, normal bowel sounds. Absent: distended, rebound, rigid Extremities exam: Present: normal inspection, full ROM, normal capillary refill, pedal edema (Bilateral). Absent: tenderness, joint swelling, calf tenderness Back exam: Present: normal inspection Neurological exam: Present: alert, oriented X3, CN II-XII intact Psychiatric exam: Present: normal affect, normal mood Skin exam: Present: warm, dry, intact, normal color. Absent: rash Course Vital Signs 11/05/21 17:10 Temperature 98 F Pulse Rate 65 Respiratory 16 Rate Blood Pressure 115/56 O2 Sat by Pulse 94 L Oximetry - Reevaluation(s) Reevaluation #1: 11/05/21 21:30 Medical record is reviewed Symptoms improved after pain medication. Patient is informed of results and questions answered Patient in no distress - Consultations Consultation #1: Case discussed in detail Dr. Shea who touched admission of the patient. Consultation for cardiology and surgery will be made. Medical Decision Making - Medical Decision Making Schempp presents with worsening abdominal pain, abdomen is tender, there is percussion and rebound tenderness. Generalized. Differential includes infectious versus inflammatory etiology. Possible perforation. Less likely to be ischemic bowel based on the presentation. Patient has no chest pain. Not consistent with cardiopulmonary disease on the patient does have exertional dyspnea which is likely related to her CHF. Patient's chemistry panel reveals sodium 133. Potassium 5.4 with slight hemolysis, CO2 21, renal function is essentially stable. Patient's BNP of 73 is higher but still not significantly elevated for the patient's age. CT report shows a large parastomal hernia which is slightly increased compared to the old exam. No evidence of bowel obstruction. Bilateral pleural effusions and pericardial effusion which is new compared to the old exam. Note that this patient was seen by Dr. Bales prior to arrival and he was sent over for abdominal pain. However the patient still complaining of shortness of breath, significant shortness of breath with exertion. We'll plan for admission based on the patient's worsening symptomology. We'll order an echocardiogram after discussion of new pericardial effusion The case was discussed in detail with ED attending physician. Presentation, findings, treatment plan discussed in detail. Supervising physician is Dr. Rivera - Lab Data Result diagrams: 11/05/21 19:46 11/05/21 19:46 Lab Results 11/05/21 11/05/21 11/05/21 Range/Units 19:06 19:46 19:46 WBC 15.3 H (3.8-10.6) k/uL RBC 3.53 L (4.30-5.90) m/uL Hgb 10.2 L (13.0-17.5) gm/dL Hct 33.1 L (39.0-53.0) % MCV 93.8 (80.0-100.0) fL MCH 29.0 (25.0-35.0) pg MCHC 30.9 L (31.0-37.0) g/dL RDW 14.9 (11.5-15.5) % Plt Count 420 D (150-450) k/uL MPV 7.8 Neutrophils % 87 % Lymphocytes % 4 % Monocytes % 7 % Eosinophils % 1 % Basophils % 1 % Neutrophils # 13.3 H (1.3-7.7) k/uL Lymphocytes # 0.6 L (1.0-4.8) k/uL Monocytes # 1.1 H (0-1.0) k/uL Eosinophils # 0.1 (0-0.7) k/uL Basophils # 0.1 (0-0.2) k/uL Hypochromasia Moderate PT 11.3 (9.0-12.0) sec INR 1.0 (<1.2) APTT 26.4 (22.0-30.0) sec Sodium (137-145) mmol/L Potassium (3.5-5.1) mmol/L Chloride (98-107) mmol/L Carbon Dioxide (22-30) mmol/L Anion Gap mmol/L BUN (9-20) mg/dL Creatinine (0.66-1.25) mg/dL Est GFR (CKD-EPI)AfAm (>60 ml/min/1.73 sqM) Est GFR (CKD-EPI)NonAf (>60 ml/min/1.73 sqM) Glucose (74-99) mg/dL Plasma Lactic Acid Cecil (0.7-2.0) mmol/L Calcium (8.4-10.2) mg/dL Total Bilirubin (0.2-1.3) mg/dL AST (17-59) U/L ALT (4-49) U/L Alkaline Phosphatase (38-126) U/L Troponin I (0.000-0.034) ng/mL NT-Pro-B Natriuret Pep pg/mL Total Protein (6.3-8.2) g/dL Albumin (3.5-5.0) g/dL Amylase (30-110) U/L Lipase (23-300) U/L Urine Color Yellow Urine Appearance Clear (Clear) Urine pH 5.0 (5.0-8.0) Ur Specific [place] 1.010 (1.001-1.035) Urine Protein Trace H (Negative) Urine Glucose (UA) 3+ H (Negative) Urine Ketones Negative (Negative) Urine Blood Negative (Negative) Urine Nitrite Negative (Negative) Urine Bilirubin Negative (Negative) Urine Urobilinogen <2.0 (<2.0) mg/dL Ur Leukocyte Esterase Negative (Negative) Coronavirus (PCR) (Not Detectd) 11/05/21 11/05/21 11/05/21 Range/Units 19:46 19:46 19:46 WBC (3.8-10.6) k/uL RBC (4.30-5.90) m/uL Hgb (13.0-17.5) gm/dL Hct (39.0-53.0) % MCV (80.0-100.0) fL MCH (25.0-35.0) pg MCHC (31.0-37.0) g/dL RDW (11.5-15.5) % Plt Count (150-450) k/uL MPV Neutrophils % % Lymphocytes % % Monocytes % % Eosinophils % % Basophils % % Neutrophils # (1.3-7.7) k/uL Lymphocytes # (1.0-4.8) k/uL Monocytes # (0-1.0) k/uL Eosinophils # (0-0.7) k/uL Basophils # (0-0.2) k/uL Hypochromasia PT (9.0-12.0) sec INR (<1.2) APTT (22.0-30.0) sec Sodium 133 L (137-145) mmol/L Potassium 5.4 H (3.5-5.1) mmol/L Chloride 98 (98-107) mmol/L Carbon Dioxide 21 L (22-30) mmol/L Anion Gap 14 mmol/L BUN 55 H (9-20) mg/dL Creatinine 2.28 H (0.66-1.25) mg/dL Est GFR (CKD-EPI)AfAm 32 (>60 ml/min/1.73 sqM) Est GFR (CKD-EPI)NonAf 28 (>60 ml/min/1.73 sqM) Glucose 154 H (74-99) mg/dL Plasma Lactic Acid Cecil 1.5 (0.7-2.0) mmol/L Calcium 9.2 (8.4-10.2) mg/dL Total Bilirubin 1.2 (0.2-1.3) mg/dL AST 31 (17-59) U/L ALT 22 (4-49) U/L Alkaline Phosphatase 140 H (38-126) U/L Troponin I <0.012 (0.000-0.034) ng/mL NT-Pro-B Natriuret Pep pg/mL Total Protein 8.3 H (6.3-8.2) g/dL Albumin 4.3 (3.5-5.0) g/dL Amylase <30 L (30-110) U/L Lipase <10 L (23-300) U/L Urine Color Urine Appearance (Clear) Urine pH (5.0-8.0) Ur Specific [place] (1.001-1.035) Urine Protein (Negative) Urine Glucose (UA) (Negative) Urine Ketones (Negative) Urine Blood (Negative) Urine Nitrite (Negative) Urine Bilirubin (Negative) Urine Urobilinogen (<2.0) mg/dL Ur Leukocyte Esterase (Negative) Coronavirus (PCR) (Not Detectd) 11/05/21 11/05/21 Range/Units 19:46 20:25 WBC (3.8-10.6) k/uL RBC (4.30-5.90) m/uL Hgb (13.0-17.5) gm/dL Hct (39.0-53.0) % MCV (80.0-100.0) fL MCH (25.0-35.0) pg MCHC (31.0-37.0) g/dL RDW (11.5-15.5) % Plt Count (150-450) k/uL MPV Neutrophils % % Lymphocytes % % Monocytes % % Eosinophils % % Basophils % % Neutrophils # (1.3-7.7) k/uL Lymphocytes # (1.0-4.8) k/uL Monocytes # (0-1.0) k/uL Eosinophils # (0-0.7) k/uL Basophils # (0-0.2) k/uL Hypochromasia PT (9.0-12.0) sec INR (<1.2) APTT (22.0-30.0) sec Sodium (137-145) mmol/L Potassium (3.5-5.1) mmol/L Chloride (98-107) mmol/L Carbon Dioxide (22-30) mmol/L Anion Gap mmol/L BUN (9-20) mg/dL Creatinine (0.66-1.25) mg/dL Est GFR (CKD-EPI)AfAm (>60 ml/min/1.73 sqM) Est GFR (CKD-EPI)NonAf (>60 ml/min/1.73 sqM) Glucose (74-99) mg/dL Plasma Lactic Acid Cecil (0.7-2.0) mmol/L Calcium (8.4-10.2) mg/dL Total Bilirubin (0.2-1.3) mg/dL AST (17-59) U/L ALT (4-49) U/L Alkaline Phosphatase (38-126) U/L Troponin I (0.000-0.034) ng/mL NT-Pro-B Natriuret Pep 783 pg/mL Total Protein (6.3-8.2) g/dL Albumin (3.5-5.0) g/dL Amylase (30-110) U/L Lipase (23-300) U/L Urine Color Urine Appearance (Clear) Urine pH (5.0-8.0) Ur Specific [place] (1.001-1.035) Urine Protein (Negative) Urine Glucose (UA) (Negative) Urine Ketones (Negative) Urine Blood (Negative) Urine Nitrite (Negative) Urine Bilirubin (Negative) Urine Urobilinogen (<2.0) mg/dL Ur Leukocyte Esterase (Negative) Coronavirus (PCR) Not Detected (Not Detectd) - EKG Data EKG Comments: EKG done at 2143 reveals low QRS voltage in precordial leads, normal axis,Baseline artifact, nonspecific T-wave abnormality, normal QRS morphology otherwise. Low amplitude P waves as well. Study read by the ED attending physician 11/05/21 21:32 Note that the patient had an echocardiogram done during the admission at the end of the month showing normal pericardium without effusion with normal left ventricular size and function patient also had a chest CT done on October 21 showing mild bilateral pleural effusions with basilar subsegmental atelectasis no mention of pericardial effusion at that time. Disposition Clinical Impression: Abdominal pain, Pericardial effusion, Pleural effusion, Hernia, abdominal Narrative: Parastomal hernia, worsening Disposition: ADMITTED IP TO THIS [facility] Condition: Stable Is patient prescribed a controlled substance at d/c from ED?: No Referrals: Nas Dennis DO [Primary Care Provider] - 1-2 days Time of Disposition: 21:29 Decision to Admit Reason: Admit from EC Decision Time: 21:29
--- NOTE | 2021-11-05 19:53 | XR ---
EXAMINATION TYPE: XR chest 2V DATE OF EXAM: 11/05/2021 COMPARISON: 10/21/2021 HISTORY: Pain TECHNIQUE: 2 view FINDINGS: Heart is slightly enlarged. Lungs are clear of consolidation. There are no hilar masses. Th ere is mild blunting left costophrenic angle. There is no heart failure. Bony thorax is intact. IMPRESSION: Mild cardiomegaly. Small left pleural effusion. No significant change.
[2021-11-05 19:59] LABS: Appearance,Urine Clear (Clear); Bilirubin,Urine Negative (Negative); Blood,Urine Negative (Negative); Color,Urine Yellow; Glucose,Urine (UA) 3+ (Negative); Ketones,Urine Negative (Negative); Leukocyte Esterase,Urine Negative (Negative); Nitrite,Urine Negative (Negative); Protein,Urine Trace (Negative); Urobilinogen,Urine <2.0 mg/dL (<2.0)
[2021-11-05 20:00] LABS: Basophils # (A) 0.1 k/uL (0-0.2); Basophils % (A) 1 %; Eosinophils # (A) 0.1 k/uL (0-0.7); Eosinophils % (A) 1 %; HCT 33.1 % (39.0-53.0); HGB 10.2 gm/dL (13.0-17.5); Hypochromasia Moderate; Lymphocytes # (A) 0.6 k/uL (1.0-4.8); Lymphocytes % (A) 4 %; MCHC 30.9 g/dL (31.0-37.0); MCV 93.8 fL (80.0-100.0); Mean Platelet Volume 7.8; Monocytes # (A) 1.1 k/uL (0-1.0); Monocytes % (A) 7 %; Neutrophils # (A) 13.3 k/uL (1.3-7.7); Neutrophils % (A) 87 %; RBC 3.53 m/uL (4.30-5.90); RDW 14.9 % (11.5-15.5); WBC 15.3 k/uL (3.8-10.6)
[2021-11-05 20:06] LABS: Platelet Count 420 k/uL (150-450)
[2021-11-05 20:13] LABS: ALT 22 U/L (4-49); African American GFR (CKD) 32 (>60 ml/min/1.73 sqM); Albumin 4.3 g/dL (3.5-5.0); Amylase <30 U/L (30-110); Anion Gap 14 mmol/L; Blood Urea Nitrogen 55 mg/dL (9-20); Calcium 9.2 mg/dL (8.4-10.2); Carbon Dioxide 21 mmol/L (22-30); Chloride 98 mmol/L (98-107); Glucose 154 mg/dL (74-99); Lipase <10 U/L (23-300); Non-African American GFR(CKD) 28 (>60 ml/min/1.73 sqM); Sodium 133 mmol/L (137-145); Total Bilirubin 1.2 mg/dL (0.2-1.3); Total Protein 8.3 g/dL (6.3-8.2)
[2021-11-05 20:14] LABS: AST 31 U/L (17-59); Alkaline Phosphatase 140 U/L (38-126); Potassium 5.4 mmol/L (3.5-5.1)
--- NOTE | 2021-11-05 20:14 | CT ---
EXAMINATION TYPE: CT abdomen pelvis wo con DATE OF EXAM: 11/05/2021 COMPARISON: 07/30/2015 HISTORY: Epigastric pain CT DLP: 1752 mGycm Automated exposure control for dose reduction was used. Images obtained from the diaphragm to the floor of the pelvis with no contrast. There is a moderate pericardial effusion. There is bilateral pleural effusions. Liver and spleen are intact. There is significant pancreatic atrophy. There are clips from cholecyste ctomy. The bile ducts are not dilated. The stomach is intact. There is no adrenal mass. Kidneys show no hydronephrosis. No evidence of renal mass. There is no retr operitoneal adenopathy. There is rectal stump. There is right-sided ileostomy with parastomal hernia containing multiple loops of bowel. There appears to be total colectomy. The lumbar vertebrae have normal alignment. No compression fracture. Posterior elements are intact. T he bony pelvis is intact. The hip joints are intact. There is no mesenteric edema. No ascites. No free air. No sign of a bowel obstruction. IMPRESSION: Right-sided ileostomy with large parastomal hernia also present on old exam. Hernia has slightly incr eased compared to old exam. No bowel obstruction. There is bilateral pleural effusions and pericardial effusion which is new compared to old exam.
[2021-11-05 20:20] LABS: Partial Thromboplastin Time 26.4 sec (22.0-30.0); Prothrombin Time 11.3 sec (9.0-12.0)
[2021-11-05] MEDS ORDERED: ONDANSETRON 4 MG/2 ML VIAL IVP PRN (22:02)
[2021-11-05] MEDS ORDERED: NALOXONE 0.4 MG/ML 1 ML VIAL IV PRN (22:02)
[2021-11-05] MEDS ORDERED: MORPHINE SULFATE 4 MG/ML SYRINGE IV PRN (22:02)
[2021-11-05] MEDS ORDERED: ACETAMINOPHEN TAB 325 MG TAB PO PRN (22:02)
[2021-11-05] MEDS: TORSEMIDE 20 MG TAB PO SCH (22:30)
[2021-11-06 06:46] LABS: Glucose,Whole Blood 175 mg/dL (70-110)
--- NOTE | 2021-11-06 06:52 | P.CRDCN ---
History of Present Illness History of present illness: HISTORY OF PRESENT ILLNESS: This is a 70-year-old male with a past medical history significant for hypertension, hyperlipidemia, congestive heart failure, CKD, abdominal pain. Patient follows in the office with Dr. Bales. He previously presented to the hospital 2 weeks ago more with chest pains as well as dyspnea on exertion which the dyspnea has been progressive over last year. He was also having significant abdominal pain at the time. Troponins were noted to be normal and echo showed EF 50-55% with mild mitral regurgitation and he was placed on IV Lasix and then sent home. He followed up in the office with Dr. Bales yesterday however was having severe abdominal pain with concern of severe tenderness to palpation and therefore directed to go to emergency department. CT abdomen and pelvis showed right-sided ileostomy with a large peristomal hernia with hernia appearing to be slightly increased as well as bilateral pleural effusions and a pericardial effusion which is reportedly new compared to old exam. Previous CT chest 10/21 showed no concern of pericardial effusion. He was placed on torsemide going home. Blood work shows white blood cell count 15.3, hemoglobin 10.2, sodium 133, creatinine 2.28, BUN 55, potassium 5.4, proBNP 7 and 83, troponin normal 3. Baseline creatinine appears 1.5-1.8. REVIEW OF SYSTEMS: At the time of my exam: CONSTITUTIONAL: Denies fever or chills. HEENT: Denies blurred vision, vision changes, or eye pain. Denies hemoptysis CARDIOVASCULAR: Denies chest pain. Denies orthopnea. Denies PND. Denies palpitations RESPIRATORY:+Shortness of breath. GASTROINTESTINAL: +abdominal pain. Denies nausea or vomiting. HEMATOLOGIC: Denies bleeding disorders. GENITOURINARY: Denies any blood in urine. SKIN: Denies pruitis. Denies rash. PHYSICAL EXAM: VITAL SIGNS: Reviewed. GENERAL: Well-developed in no acute distress. HEENT: Head is normocephalic. Pupils are equal, round. Sclerae anicteric. Mucous membranes of the mouth are moist. Neck supple. No JVD or thyromegaly LUNGS: Respirations even and unlabored. Lungs diminished with bibasilar crackles HEART: Regular rate and rhythm. S1 and S2 heard. ABDOMEN: Soft. Mildly distended. +tender. EXTREMITIES: Normal range of motion. No clubbing or cyanosis. Peripheral pulses intact. 2+ bilateral lower extremity edema NEUROLOGIC: Awake and alert. Oriented x 3. ASSESSMENT: Moderate pericardial effusion by CT abdomen and Pelvis, new compared to prior CT 10/21 Acute on chronic heart failure with preserved ejection fraction Chest pain last admission, improved Hypertension Hyperlipidemia COWAN over last year [place] PLAN: CT findings concerning for new moderate pericardial effusion. Check 2-D echo to evaluate however clinically does not appear to be any signs or symptoms of tamponade on. Also note of bilateral pleural effusions. Patient does however have worsened creatinine. Again presentation was for abdominal pain and we will check echo for completeness sake however otherwise would continue supportive care. Continue home medications. Does not appear dramatically volume overloaded however does have new mild pleural effusions. Further workup to rule out ischemia may be performed outpatient. Further recommendations to follow. Past Medical History Past Medical History: Cancer, Chest Pain / Angina, Diabetes Mellitus, Eye Diso rder, GERD/Reflux, Hyperlipidemia, Hypertension, Osteoarthritis (OA), Prostate Disorder, Renal Disease Additional Past Medical History / Comment(s): HX OF ULCERATIVE COLITIS, PARASTOMAL HERNIA, PROSTATE CA WITH RADIATION AND CHEMO IN 2020, LOW KIDNEY FUNCTION History of Any Multi-Drug Resistant Organisms: MRSA Date of last positivie culture/infection: 11/07/14 MDRO Source:: Scalp Past Surgical History: Appendectomy, Bowel Resection, Orthopedic Surgery Additional Past Surgical History / Comment(s): COLECTOMY, RECTUM REMOVED, ELLIOTT CATARACTS removed, ILEOSTOMY, HERNIA SURGERY, Bilateral hip replacement Past Anesthesia/Blood Transfusion Reactions: No Reported Reaction Past Psychological History: No Psychological Hx Reported Smoking Status: Never smoker Past Alcohol Use History: None Reported Past Drug Use History: None Reported - Past Family History Mother Family Medical History: Cancer Additional Family Medical History / Comment(s): LUNG Father Family Medical History: Cancer Additional Family Medical History / Comment(s): MELANOMA/BRAIN Medications and Allergies Home Medications Medication Instructions Recorded Confirmed Type Atorvastatin Calcium [Lipitor] 20 mg PO DAILY 12/31/14 11/05/21 History Insulin Glargine,Hum.rec.anlog 50 units SQ HS 12/31/14 11/05/21 History [Toujeo Solostar] Omeprazole [PriLOSEC] 20 mg PO DAILY 12/31/14 11/05/21 History atenoloL [Tenormin] 50 mg PO DAILY 12/31/14 11/05/21 History Aspirin EC [Ecotrin Low Dose] 81 mg PO DAILY 11/08/18 11/05/21 History Insulin Aspart [NovoLOG Flexpen] See Protocol SQ AC-TID 11/08/18 11/05/21 History Ergocalciferol (Vitamin D2) 1,250 mcg PO Q14D 06/25/20 11/05/21 History [Drisdol (50,000 Iu)] Tamsulosin HCl [Flomax] 0.4 mg PO PC-SUPPER 06/25/20 11/05/21 History Escitalopram [Lexapro] 10 mg PO DAILY 10/21/21 11/05/21 History allopurinoL [Zyloprim] 100 mg PO DAILY 10/21/21 11/05/21 History amLODIPine [Norvasc] 5 mg PO DAILY 10/21/21 11/05/21 History Melatonin 3 mg PO HS PRN tab 10/24/21 11/05/21 Rx Torsemide [Demadex] 40 mg PO DAILY 30 Days #30 tab 10/24/21 11/05/21 Rx Dapagliflozin Propanediol [Farxiga] 10 mg PO DAILY 11/05/21 11/05/21 History Allergies Allergy/AdvReac Type Severity Reaction Status Date / Time ibuprofen [From Motrin] Allergy Anaphylaxis Verified 11/05/21 22:11 Physical Exam Vitals: Vital Signs Temp Pulse Pulse Resp BP BP Pulse Ox 11/06/21 00:00 97.9 F 62 19 144/63 95 11/05/21 22:31 97.9 F 62 19 144/63 95 11/05/21 17:10 98 F 65 16 115/56 94 L Intake and Output 11/05/21 11/05/21 11/06/21 14:59 22:59 06:59 Other: Weight 120.656 kg Results 11/05/21 19:46 11/05/21 19:46 Cardiac Enzymes 11/05/21 11/05/21 11/05/21 Range/Units 19:46 19:46 22:20 AST 31 (17-59) U/L Troponin I <0.012 <0.012 (0.000-0.034) ng/mL 11/06/21 Range/Units 01:45 AST (17-59) U/L Troponin I <0.012 (0.000-0.034) ng/mL Coagulation 11/05/21 Range/Units 19:46 PT 11.3 (9.0-12.0) sec APTT 26.4 (22.0-30.0) sec CBC 11/05/21 Range/Units 19:46 WBC 15.3 H (3.8-10.6) k/uL RBC 3.53 L (4.30-5.90) m/uL Hgb 10.2 L (13.0-17.5) gm/dL Hct 33.1 L (39.0-53.0) % Plt Count 420 D (150-450) k/uL Comprehensive Metabolic Panel 11/05/21 Range/Units 19:46 Sodium 133 L (137-145) mmol/L Potassium 5.4 H (3.5-5.1) mmol/L Chloride 98 (98-107) mmol/L Carbon Dioxide 21 L (22-30) mmol/L BUN 55 H (9-20) mg/dL Creatinine 2.28 H (0.66-1.25) mg/dL Glucose 154 H (74-99) mg/dL Calcium 9.2 (8.4-10.2) mg/dL AST 31 (17-59) U/L ALT 22 (4-49) U/L Alkaline Phosphatase 140 H (38-126) U/L Total Protein 8.3 H (6.3-8.2) g/dL Albumin 4.3 (3.5-5.0) g/dL Current Medications Generic Name Dose Route Start Last Admin Trade Name Freq PRN Reason Stop Dose Admin Acetaminophen 650 mg 11/05/21 22:02 Acetaminophen Tab 325 Mg Tab PO Q6HR PRN Mild Pain or Fever > 100.5 Aspirin 81 mg 11/06/21 09:00 Aspirin 81 Mg PO DAILY [facility] Heparin Sodium (Porcine) 5,000 unit 11/06/21 09:00 Heparin Sodium,Porcine/Pf 5,000 Unit/0.5 Ml Syringe SQ Q12HR [facility] Insulin Aspart 0 unit 11/06/21 07:30 Insulin Aspart (Novolog) 100 Unit/Ml Vial SQ ACHS [facility] Protocol Morphine Sulfate 4 mg 11/05/21 22:02 Morphine Sulfate 4 Mg/Ml Syringe IV Q4HR PRN Severe Pain Naloxone HCl 0.2 mg 11/05/21 22:02 Naloxone 0.4 Mg/Ml 1 Ml Vial IV Q2M PRN Opioid Reversal Ondansetron HCl 4 mg 11/05/21 22:02 Ondansetron 4 Mg/2 Ml Vial IVP Q8HR PRN Nausea And Vomiting Pantoprazole Sodium 40 mg 11/06/21 09:00 Pantoprazole 40 Mg Tablet PO DAILY JOSÉ Torsemide 40 mg 11/05/21 22:15 11/05/21 22:30 Torsemide 20 Mg Tab PO Not Given DAILY JOSÉ Intake and Output 11/05/21 11/05/21 11/06/21 14:59 22:59 06:59 Other: Weight 120.656 kg Patient Weight 11/06/21 06:59 Weight 120.656 kg 11/05/21 19:46 11/05/21 19:46
[2021-11-06] MEDS ORDERED: INSULIN ASPART (NovoLOG) 100 UNIT/ML VIAL SQ SCH (07:30)
[2021-11-06 07:46] LABS: Basophils # (A) 0.1 k/uL (0-0.2); Basophils % (A) 1 %; Eosinophils # (A) 0.2 k/uL (0-0.7); Eosinophils % (A) 2 %; HCT 32.7 % (39.0-53.0); HGB 10.2 gm/dL (13.0-17.5); Hypochromasia Marked; Lymphocytes # (A) 0.4 k/uL (1.0-4.8); Lymphocytes % (A) 4 %; MCH 29.9 pg (25.0-35.0); MCHC 31.3 g/dL (31.0-37.0); MCV 95.5 fL (80.0-100.0); Mean Platelet Volume 7.8; Monocytes # (A) 0.8 k/uL (0-1.0); Monocytes % (A) 8 %; Neutrophils # (A) 8.2 k/uL (1.3-7.7); Neutrophils % (A) 84 %; Platelet Count 327 k/uL (150-450); RBC 3.42 m/uL (4.30-5.90); RDW 14.8 % (11.5-15.5); WBC 9.7 k/uL (3.8-10.6)
[2021-11-06 08:01] LABS: Calcium 9.3 mg/dL (8.4-10.2); Total Bilirubin 1.1 mg/dL (0.2-1.3); Total Protein 7.7 g/dL (6.3-8.2)
[2021-11-06 08:11] LABS: Magnesium 2.4 mg/dL (1.6-2.3); Phosphorus 5.2 mg/dL (2.5-4.5); Potassium 5.2 mmol/L (3.5-5.1)
[2021-11-06] MEDS: PANTOPRAZOLE 40 MG TABLET PO SCH (08:28)
[2021-11-06] MEDS: ASPIRIN 81 MG PO SCH (08:28)
[2021-11-06] MEDS ORDERED: HEPARIN SODIUM,PORCINE/PF 5,000 UNIT/0.5 ML SYRINGE SQ SCH (09:00)
[2021-11-06] MEDS ORDERED: MELATONIN 3 MG TABLET PO PRN (11:18)
--- NOTE | 2021-11-06 11:20 | CA ---
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 Left ventricular ejection fraction is estimated at 55-60_%. Right Ventricle Right Atrium Left Atrium Mitral Valve Aortic Valve Tricuspid Valve Pulmonic Valve Pericardium Small global pericardial effusion. Aorta CONCLUSIONS Left ventricular ejection fraction 55-60% Mild LVH Small circumferential pericardial effusion without evidence of tamponade Previewed by: Dr. Brandin Justin DO (Electronically Signed) Final Date: 06 November 2021 11:19
--- NOTE | 2021-11-06 11:33 | P.GSCN ---
History of Present Illness Consult date: 11/06/21 Reason for Consult: Abdominal pain History of present illness: Patient's a 70-year-old man who presents with abdominal pain. He has been having pain for some few weeks. When he was in the hospital couple of weeks ago he had the pain which wasn't as severe. The pain did improve with treatment of his congestive heart failure. This is located in the mid abdomen. Doesn't radiate. He's been eating normally. No nausea or vomiting. His ileostomy is working normally. Denies fevers or chills. Denies blood in the stool. He has a history of a total colectomy greater than 25 years ago due to ulcerative colitis. There didn't to parastomal hernia repairs. He hasn't had any pain around his stoma or noticed lumps or bumps. Patient has shortness of breath gets very dyspneic with minimal activity. Both patient and admit that he is seeming to use his abdominal muscles to aid in respiration. Review of Systems All systems: negative Past Medical History Past Medical History: Cancer, Chest Pain / Angina, Diabetes Mellitus, Eye Disorder, GERD/Reflux, Hyperlipidemia, Hypertension, Osteoarthritis (OA), Prostate Disorder, Renal Disease Additional Past Medical History / Comment(s): HX OF ULCERATIVE COLITIS, PARASTOMAL HERNIA, PROSTATE CA WITH RADIATION AND CHEMO IN 2020, LOW KIDNEY FUNCTION History of Any Multi-Drug Resistant Organisms: MRSA Year Discovered:: 11/07/14 MDRO Source:: Scalp Past Surgical History: Appendectomy, Bowel Resection, Orthopedic Surgery Additional Past Surgical History / Comment(s): COLECTOMY, RECTUM REMOVED, ELLIOTT CATARACTS removed, ILEOSTOMY, HERNIA SURGERY, Bilateral hip replacement Past Anesthesia/Blood Transfusion Reactions: No Reported Reaction Past Psychological History: No Psychological Hx Reported Smoking Status: Never smoker Past Alcohol Use History: None Reported Past Drug Use History: None Reported - Past Family History Mother Family Medical History: Cancer Additional Family Medical History / Comment(s): LUNG Father Family Medical History: Cancer Additional Family Medical History / Comment(s): MELANOMA/BRAIN Medications and Allergies Home Medications Medication Instructions Recorded Confirmed Type Atorvastatin Calcium [Lipitor] 20 mg PO DAILY 12/31/14 11/05/21 History Insulin Glargine,Hum.rec.anlog 50 units SQ HS 12/31/14 11/05/21 History [Touramesh Solostar] Omeprazole [PriLOSEC] 20 mg PO DAILY 12/31/14 11/05/21 History atenoloL [Tenormin] 50 mg PO DAILY 12/31/14 11/05/21 History Aspirin EC [Ecotrin Low Dose] 81 mg PO DAILY 11/08/18 11/05/21 History Insulin Aspart [NovoLOG Flexpen] See Protocol SQ AC-TID 11/08/18 11/05/21 History Ergocalciferol (Vitamin D2) 1,250 mcg PO Q14D 06/25/20 11/05/21 History [Drisdol (50,000 Iu)] Tamsulosin HCl [Flomax] 0.4 mg PO PC-SUPPER 06/25/20 11/05/21 History Escitalopram [Lexapro] 10 mg PO DAILY 10/21/21 11/05/21 History allopurinoL [Zyloprim] 100 mg PO DAILY 10/21/21 11/05/21 History amLODIPine [Norvasc] 5 mg PO DAILY 10/21/21 11/05/21 History Melatonin 3 mg PO HS PRN tab 10/24/21 11/05/21 Rx Torsemide [Demadex] 40 mg PO DAILY 30 Days #30 tab 10/24/21 11/05/21 Rx Dapagliflozin Propanediol [Farxiga] 10 mg PO DAILY 11/05/21 11/05/21 History Allergies Allergy/AdvReac Type Severity Reaction Status Date / Time ibuprofen [From Motrin] Allergy Anaphylaxis Verified 11/05/21 22:11 Surgical - Exam Osteopathic Statement: *. No significant issues noted on an osteopathic structural exam other than those noted in the History and Physical/Consult. Vital Signs Temp Pulse Resp BP Pulse Ox 98 F 65 16 115/56 94 L 11/05/21 17:10 11/05/21 17:10 11/05/21 17:10 11/05/21 17:10 11/05/21 17:10 - General Mild conversational dyspnea well developed, well nourished - Eyes normal ocular movement, no icteric - Neck trachea midline - Respiratory Conversational dyspnea, using accessory muscles clear to auscultation - Cardiovascular Rhythm: regular - Abdomen Abdomen: soft, tender (Minimal tenderness to deep palpation), bowel sounds, no guarding, no rigid, no rebound Results - Labs 11/06/21 07:27 11/06/21 07:27 Abnormal Lab Results - Last 24 Hours (Table) 11/05/21 11/05/21 11/05/21 Range/Units 19:06 19:46 19:46 WBC 15.3 H (3.8-10.6) k/uL RBC 3.53 L (4.30-5.90) m/uL Hgb 10.2 L (13.0-17.5) gm/dL Hct 33.1 L (39.0-53.0) % MCHC 30.9 L (31.0-37.0) g/dL Neutrophils # 13.3 H (1.3-7.7) k/uL Lymphocytes # 0.6 L (1.0-4.8) k/uL Monocytes # 1.1 H (0-1.0) k/uL Sodium 133 L (137-145) mmol/L Potassium 5.4 H (3.5-5.1) mmol/L Carbon Dioxide 21 L (22-30) mmol/L BUN 55 H (9-20) mg/dL Creatinine 2.28 H (0.66-1.25) mg/dL Glucose 154 H (74-99) mg/dL POC Glucose (mg/dL) (70-110) mg/dL Phosphorus (2.5-4.5) mg/dL Magnesium (1.6-2.3) mg/dL Alkaline Phosphatase 140 H (38-126) U/L Total Protein 8.3 H (6.3-8.2) g/dL Amylase <30 L (30-110) U/L Lipase <10 L (23-300) U/L Urine Protein Trace H (Negative) Urine Glucose (UA) 3+ H (Negative) 11/06/21 11/06/21 11/06/21 Range/Units 06:44 07:27 07:27 WBC (3.8-10.6) k/uL RBC 3.42 L (4.30-5.90) m/uL Hgb 10.2 L (13.0-17.5) gm/dL Hct 32.7 L (39.0-53.0) % MCHC (31.0-37.0) g/dL Neutrophils # 8.2 H (1.3-7.7) k/uL Lymphocytes # 0.4 L (1.0-4.8) k/uL Monocytes # (0-1.0) k/uL Sodium 134 L (137-145) mmol/L Potassium 5.2 H (3.5-5.1) mmol/L Carbon Dioxide 17 L (22-30) mmol/L BUN 61 H (9-20) mg/dL Creatinine 2.37 H (0.66-1.25) mg/dL Glucose 188 H (74-99) mg/dL POC Glucose (mg/dL) 175 H (70-110) mg/dL Phosphorus 5.2 H (2.5-4.5) mg/dL Magnesium 2.4 H (1.6-2.3) mg/dL Alkaline Phosphatase 142 H (38-126) U/L Total Protein (6.3-8.2) g/dL Amylase (30-110) U/L Lipase (23-300) U/L Urine Protein (Negative) Urine Glucose (UA) (Negative) Diabetes panel 11/05/21 11/06/21 Range/Units 19:46 07:27 Sodium 133 L 134 L (137-145) mmol/L Potassium 5.4 H 5.2 H (3.5-5.1) mmol/L Chloride 98 101 (98-107) mmol/L Carbon Dioxide 21 L 17 L (22-30) mmol/L BUN 55 H 61 H (9-20) mg/dL Creatinine 2.28 H 2.37 H (0.66-1.25) mg/dL Glucose 154 H 188 H (74-99) mg/dL Calcium 9.2 9.3 (8.4-10.2) mg/dL AST 31 22 (17-59) U/L ALT 22 19 (4-49) U/L Alkaline Phosphatase 140 H 142 H (38-126) U/L Total Protein 8.3 H 7.7 (6.3-8.2) g/dL Albumin 4.3 4.0 (3.5-5.0) g/dL Calcium panel 11/05/21 11/06/21 Range/Units 19:46 07:27 Calcium 9.2 9.3 (8.4-10.2) mg/dL Phosphorus 5.2 H (2.5-4.5) mg/dL Albumin 4.3 4.0 (3.5-5.0) g/dL Pituitary panel 11/05/21 11/06/21 Range/Units 19:46 07:27 Sodium 133 L 134 L (137-145) mmol/L Potassium 5.4 H 5.2 H (3.5-5.1) mmol/L Chloride 98 101 (98-107) mmol/L Carbon Dioxide 21 L 17 L (22-30) mmol/L BUN 55 H 61 H (9-20) mg/dL Creatinine 2.28 H 2.37 H (0.66-1.25) mg/dL Glucose 154 H 188 H (74-99) mg/dL Calcium 9.2 9.3 (8.4-10.2) mg/dL Adrenal panel 11/05/21 11/06/21 Range/Units 19:46 07:27 Sodium 133 L 134 L (137-145) mmol/L Potassium 5.4 H 5.2 H (3.5-5.1) mmol/L Chloride 98 101 (98-107) mmol/L Carbon Dioxide 21 L 17 L (22-30) mmol/L BUN 55 H 61 H (9-20) mg/dL Creatinine 2.28 H 2.37 H (0.66-1.25) mg/dL Glucose 154 H 188 H (74-99) mg/dL Calcium 9.2 9.3 (8.4-10.2) mg/dL Total Bilirubin 1.2 1.1 (0.2-1.3) mg/dL AST 31 22 (17-59) U/L ALT 22 19 (4-49) U/L Alkaline Phosphatase 140 H 142 H (38-126) U/L Total Protein 8.3 H 7.7 (6.3-8.2) g/dL Albumin 4.3 4.0 (3.5-5.0) g/dL - Imaging CT scan - abdomen: report reviewed, image reviewed (Nonobstructive parastomal hernia with no evidence of acute inflammatory process) Assessment and Plan (1) Parastomal hernia Current Visit: Yes Status: Acute Code(s): K43.5 - PARASTOMAL HERNIA WITHOUT OBSTRUCTION OR GANGRENE SNOMED Code(s): 588263262 (2) Abdominal pain Current Visit: Yes Status: Acute Code(s): R10.9 - UNSPECIFIED ABDOMINAL PAIN SNOMED Code(s): 19191622 (3) Pleural effusion Current Visit: Yes Status: Acute Code(s): J90 - PLEURAL EFFUSION, NOT ELSEWHERE CLASSIFIED SNOMED Code(s): 16840861 (4) Congestive heart failure (CHF) Current Visit: No Status: Acute Code(s): I50.9 - HEART FAILURE, UNSPECIFIED SNOMED Code(s): 26092394 (5) Exertional dyspnea Current Visit: No Status: Acute Code(s): R06.00 - DYSPNEA, UNSPECIFIED SNOMED Code(s): 75634309 (6) Parastomal hernia Current Visit: No Status: Acute Code(s): K43.5 - PARASTOMAL HERNIA WITHOUT OBSTRUCTION OR GANGRENE SNOMED Code(s): 935565114 (7) Renal insufficiency Current Visit: No Status: Acute Code(s): N28.9 - DISORDER OF KIDNEY AND URETER, UNSPECIFIED SNOMED Code(s): 628868423 Plan: There is a coincidental finding of parastomal hernia which seems to be asymptomatic. I don't find any sign of any acute intra-abdominal process causing the pain. It may be due to his dyspnea and using abdominal musculature to breathe. Abdomen DVT and ulcer prophylaxis. Hemoccult stool. Treatment for his worsening renal failure. Currently nonsurgical
[2021-11-06] MEDS: ATORVASTATIN 20 MG TAB PO SCH (11:41)
[2021-11-06] MEDS: allopurinoL 100 MG TAB PO SCH (11:41)
[2021-11-06] MEDS: ESCITALOPRAM 10 MG TAB PO SCH (11:41)
[2021-11-06] MEDS: atenoloL 50 MG TAB PO SCH (11:41)
[2021-11-06] MEDS: TORSEMIDE 20 MG TAB PO SCH (11:42)
[2021-11-06 11:50] LABS: Glucose,Whole Blood 327 mg/dL (70-110)
[2021-11-06] MEDS: INSULIN ASPART (NovoLOG) 100 UNIT/ML VIAL SQ SCH ×2 (11:50→16:51)
--- NOTE | 2021-11-06 15:40 | P.HPIM ---
History of Present Illness H&P Date: 11/06/21 Chief Complaint: Shortness of breath Chief Complaint: Short of breath This is a very pleasant 70-year-old patient of Dr. Dennis. Chronic stable me dical conditions include diabetes, GERD, hyperlipidemia, essential hypertension, colostomy, CK D. In September of this year admitted with CHF exacerbation. Patient now presents with increasing shortness of breath. Some edema. Some orthopnea. No fever no chills. Patient is also complaining of pain in the abdominal wall hernia. With any activity. Ileostomy is working fine. No change in bowel pattern. Review of systems: GEN.: Tired EYES: None HEENT: None NECK: None RESPIRATORY: As above CARDIOVASCULAR: As above GASTROINTESTINAL: As above GENITOURINARY: None MUSCULOSKELETAL: Some joint pains LYMPHATICS: None HEMATOLOGICAL: None PSYCHIATRY: None NEUROLOGICAL: None Past medical history to include: Diabetes, GERD, hyperlipidemia, hypertension, ulcerative colitis with total colectomy and removal of rectum, 22 years ago, prostate cancer treated with radiation treatment. 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 Had a family [employer]. No smoking no alcohol. Family history: Lung cancer Physical examination: VITAL SIGNS: 98, 65, 16, 115/56, 94% room air GENERAL: BMI 42.9, laying in bed, but uncomfortable EYES: Pupils equal. Conjunctiva normal. HEENT: External appearance of nose and ears normal, oral cavity grossly normal. NECK: JVD unable to assess; masses not palpable. HEART: First and second heart sounds are normal; edema. LUNGS: Respiratory rate increased; decreased breath sounds ABDOMEN: Soft, nontender, liver spleen not palpable, no masses palpable. Right-sided ileostomy. Left abdomen tenderness over hernia PSYCH: Alert and oriented x3; mood and affect normal. MUSCULOSKELETAL:No Clubbing/cyanosis;muscles-grossly intact NEUROLOGICAL: Cranial nerves grossly intact; no facial asymmetry, power and sensation grossly intact. LYMPHATICS: No lymph nodes palpable in the axilla and neck INVESTIGATIONS, reviewed in the clinical context: November 06: White count 9.7 hemoglobin 10.2 platelets 327 potassium 5.2 BUN 61 creatinine 2.37 2-D echocardiogram: EF 55-60% Admission labs: Computed tomography scan abdomen and pelvis without contrast: Significant pancreatic atrophy. Large parastomal hernia with no bowel obstruction. Right- sided ileostomy. Bilateral pleural effusion and pericardial effusion. Troponin I: Negative White count 15.3 hemoglobin 10.2 platelets 420 potassium 5.4 and 55 creatinine 2.28. Amylase lipase normal COVID 19: Not detected EKG tracing personally reviewed by me-normal sinus rhythm. Rate 62 Chest x-ray film personally reviewed by me-lor grace. Some venous prominence. Left pleural effusion. Previous labs: BUN 44 creatinine 2.06 on 10/24/2021 Assessment and plan: -Acute on chronic congestive heart failure exacerbation from diastolic dysfunction EF 55-60% Lasix drip 10 mg an hour. Fluid restriction. Strict I's and O's. -Acute kidney injury possibly a component of cardiorenal syndrome Follow renal function closely -Parastomal hernia, but no obstruction Use abdominal binder. Surgery consulted. -Small global pericardial effusion. asymptomatic Follow with cardiology -Diabetes mellitus type 2, chronically on insulin. Follow Accu-Cheks. Levemir 30 units subcu daily at bedtime. -Essential hypertension Tenormin 50 mg a day. Norvasc 5 mg a daily at bedtime -Chronic right-sided ileostomy Ileostomy care -Hyperuricemia Allopurinol 100 mg a day -Bladder outflow obstruction Flomax 0.4 mg daily -GERD Prilosec 20 mg a day -Hyperlipidemia Lipitor 20 mg a day -Morbid obesity BMI 42.9 Weight loss measures. -Chronic kidney disease stage III with diabetic nephropathy and hypertensive n ephrosclerosis Baseline creatinine of 2.06 Lasix drip 10 mg hour. Fluid restriction 1500 mL a day. Strict I's and O's. Repeat renal function. Resume home medications. Follow renal function closely. Consultation to nephrology and cardiology/surgery. Discussed with patient. Abdominal binder. Past Medical History Past Medical History: Cancer, Chest Pain / Angina, Diabetes Mellitus, Eye Disorder, GERD/Reflux, Hyperlipidemia, Hypertension, Osteoarthritis (OA), Prostate Disorder, Renal Disease Additional Past Medical History / Comment(s): HX OF ULCERATIVE COLITIS, PARASTOMAL HERNIA, PROSTATE CA WITH RADIATION AND CHEMO IN 2020, LOW KIDNEY FUNCTION History of Any Multi-Drug Resistant Organisms: MRSA Date of last positivie culture/infection: 11/07/14 MDRO Source:: Scalp Past Surgical History: Appendectomy, Bowel Resection, Orthopedic Surgery Additional Past Surgical History / Comment(s): COLECTOMY, RECTUM REMOVED, ELLIOTT CATARACTS removed, ILEOSTOMY, HERNIA SURGERY, Bilateral hip replacement Past Anesthesia/Blood Transfusion Reactions: No Reported Reaction Past Psychological History: No Psychological Hx Reported Smoking Status: Never smoker Past Alcohol Use History: None Reported Past Drug Use History: None Reported - Past Family History Mother Family Medical History: Cancer Additional Family Medical History / Comment(s): LUNG Father Family Medical History: Cancer Additional Family Medical History / Comment(s): MELANOMA/BRAIN Medications and Allergies Home Medications Medication Instructions Recorded Confirmed Type Atorvastatin Calcium [Lipitor] 20 mg PO DAILY 12/31/14 11/05/21 History Insulin Glargine,Hum.rec.anlog 50 units SQ HS 12/31/14 11/05/21 History [Toujeo Solostar] Omeprazole [PriLOSEC] 20 mg PO DAILY 12/31/14 11/05/21 History atenoloL [Tenormin] 50 mg PO DAILY 12/31/14 11/05/21 History Aspirin EC [Ecotrin Low Dose] 81 mg PO DAILY 11/08/18 11/05/21 History Insulin Aspart [NovoLOG Flexpen] See Protocol SQ AC-TID 11/08/18 11/05/21 History Ergocalciferol (Vitamin D2) 1,250 mcg PO Q14D 06/25/20 11/05/21 History [Drisdol (50,000 Iu)] Tamsulosin HCl [Flomax] 0.4 mg PO PC-SUPPER 06/25/20 11/05/21 History Escitalopram [Lexapro] 10 mg PO DAILY 10/21/21 11/05/21 History allopurinoL [Zyloprim] 100 mg PO DAILY 10/21/21 11/05/21 History amLODIPine [Norvasc] 5 mg PO DAILY 10/21/21 11/05/21 History Melatonin 3 mg PO HS PRN tab 10/24/21 11/05/21 Rx Torsemide [Demadex] 40 mg PO DAILY 30 Days #30 tab 10/24/21 11/05/21 Rx Dapagliflozin Propanediol [Farxiga] 10 mg PO DAILY 11/05/21 11/05/21 History Allergies Allergy/AdvReac Type Severity Reaction Status Date / Time ibuprofen [From Motrin] Allergy Anaphylaxis Verified 11/05/21 22:11 Physical Exam Vitals: Vital Signs Temp Pulse Pulse Resp BP BP Pulse Ox 11/06/21 08:00 59 L 16 126/65 91 L 11/06/21 04:00 98.1 F 59 L 18 137/65 91 L 11/06/21 02:00 62 19 11/06/21 00:00 97.9 F 62 19 144/63 95 11/05/21 22:31 97.9 F 62 19 144/63 95 11/05/21 17:10 98 F 65 16 115/56 94 L Intake and Output 11/05/21 11/06/21 11/06/21 22:59 06:59 14:59 Intake Total 240 Output Total 650 Balance -410 Intake: Oral 240 Output: Urine 350 Stool 300 Other: Voiding Method Urinal Urinal Weight 120.656 kg Results CBC & Chem 7: 11/06/21 07:27 11/06/21 07:27 Labs: Abnormal Lab Results - Last 24 Hours (Table) 11/05/21 11/05/21 11/05/21 Range/Units 19:06 19:46 19:46 WBC 15.3 H (3.8-10.6) k/uL RBC 3.53 L (4.30-5.90) m/uL Hgb 10.2 L (13.0-17.5) gm/dL Hct 33.1 L (39.0-53.0) % MCHC 30.9 L (31.0-37.0) g/dL Neutrophils # 13.3 H (1.3-7.7) k/uL Lymphocytes # 0.6 L (1.0-4.8) k/uL Monocytes # 1.1 H (0-1.0) k/uL Sodium 133 L (137-145) mmol/L Potassium 5.4 H (3.5-5.1) mmol/L Carbon Dioxide 21 L (22-30) mmol/L BUN 55 H (9-20) mg/dL Creatinine 2.28 H (0.66-1.25) mg/dL Glucose 154 H (74-99) mg/dL POC Glucose (mg/dL) (70-110) mg/dL Phosphorus (2.5-4.5) mg/dL Magnesium (1.6-2.3) mg/dL Alkaline Phosphatase 140 H (38-126) U/L Total Protein 8.3 H (6.3-8.2) g/dL Amylase <30 L (30-110) U/L Lipase <10 L (23-300) U/L Urine Protein Trace H (Negative) Urine Glucose (UA) 3+ H (Negative) 11/06/21 11/06/21 11/06/21 Range/Units 06:44 07:27 07:27 WBC (3.8-10.6) k/uL RBC 3.42 L (4.30-5.90) m/uL Hgb 10.2 L (13.0-17.5) gm/dL Hct 32.7 L (39.0-53.0) % MCHC (31.0-37.0) g/dL Neutrophils # 8.2 H (1.3-7.7) k/uL Lymphocytes # 0.4 L (1.0-4.8) k/uL Monocytes # (0-1.0) k/uL Sodium 134 L (137-145) mmol/L Potassium 5.2 H (3.5-5.1) mmol/L Carbon Dioxide 17 L (22-30) mmol/L BUN 61 H (9-20) mg/dL Creatinine 2.37 H (0.66-1.25) mg/dL Glucose 188 H (74-99) mg/dL POC Glucose (mg/dL) 175 H (70-110) mg/dL Phosphorus 5.2 H (2.5-4.5) mg/dL Magnesium 2.4 H (1.6-2.3) mg/dL Alkaline Phosphatase 142 H (38-126) U/L Total Protein (6.3-8.2) g/dL Amylase (30-110) U/L Lipase (23-300) U/L Urine Protein (Negative) Urine Glucose (UA) (Negative) Thrombosis Risk Factor Assmnt - Choose All That Apply Any of the Below Risk Factors Present?: Yes Each Factor Represents 1 point: Obesity (BMI >25) Other Risk Factors: Yes Each Risk Factor Represents 2 Points: Age 61-74 years Other congenital or acquired thrombophilia - If yes, enter type in comment: No Thrombosis Risk Factor Assessment Total Risk Factor Score: 3 Thrombosis Risk Factor Assessment Level: Moderate Risk
[2021-11-06 16:42] LABS: Glucose,Whole Blood 253 mg/dL (70-110)
[2021-11-06] MEDS: FUROSEMIDE 100 MG in SODIUM CHLORIDE 0.9% 90 ML IV SCH (16:50)
[2021-11-06] MEDS: TAMSULOSIN 0.4 MG CAP.ER.24H PO SCH (16:51)
[2021-11-06 21:01] LABS: Glucose,Whole Blood 207 mg/dL (70-110)
[2021-11-06] MEDS: amLODIPine 5 MG TAB PO SCH (21:34)
[2021-11-06] MEDS: INSULIN DETEMIR (LEVEMIR) 100 UNIT/ML SYR SQ SCH (21:34)
[2021-11-07 01:36] LABS: Glucose,Whole Blood 220 mg/dL (70-110)
[2021-11-07] MEDS: FUROSEMIDE 100 MG in SODIUM CHLORIDE 0.9% 90 ML IV SCH ×2 (01:45→11:07)
[2021-11-07 06:23] LABS: Glucose,Whole Blood 212 mg/dL (70-110)
[2021-11-07] MEDS: INSULIN ASPART (NovoLOG) 100 UNIT/ML VIAL SQ SCH ×3 (06:59→17:06)
[2021-11-07 08:41] LABS: Potassium 4.6 mmol/L (3.5-5.1)
[2021-11-07] MEDS: ENOXAPARIN 40 MG/0.4 ML SYRINGE SQ SCH (08:45)
[2021-11-07] MEDS: PANTOPRAZOLE 40 MG TABLET PO SCH (08:46)
[2021-11-07] MEDS: ATORVASTATIN 20 MG TAB PO SCH (08:46)
[2021-11-07] MEDS: atenoloL 50 MG TAB PO SCH (08:46)
[2021-11-07] MEDS: ASPIRIN 81 MG PO SCH (08:46)
[2021-11-07] MEDS: ESCITALOPRAM 10 MG TAB PO SCH (08:46)
[2021-11-07] MEDS: allopurinoL 100 MG TAB PO SCH (08:46)
--- NOTE | 2021-11-07 09:32 | P.NPCON ---
History of Present Illness - Reason for Consult acute renal failure, chronic renal failure - History of Present Illness Reason for consultation: Acute kidney injury on chronic kidney disease History of present illness: Patient is a 70-year-old male seen in renal consultation for acute kidney injury on chronic kidney disease. Patient has chronic kidney disease stage IIIB with baseline creatinine in the range of 1.5-2 secondary to diabetic kidney disease and nephrosclerosis. Creatinine on admission was 2.2 weight and is up at 2.8 today. Patient presented to the hospital with worsening dyspnea as well as edema. Patient states he had swelling in his legs and also felt his abdomen was more distended. Patient states symptoms have been progressively getting worse over the last 1 month. Patient has an ileostomy for over 20 years. He denies any cardiac stenting. Admits to good urine output. No hematuria or dysuria. Denies use of nonsteroidals. Currently maintained on Lasix drip at 10 mL an hour. Blood pressure stable. Denies fever or chills. No cough. Denies chest pain. Echocardiogram showed preserved ejection fraction. CT of the abdomen and pelvis showed pleural effusions as well as a moderate pericardial effusion. No hydronephrosis or ascites was noted. Vital signs are stable. General: Awake and alert. No acute distress. HEENT: Head exam is unremarkable. LUNGS: Breath sounds decreased. HEART: Rate and Rhythm are regular. ABDOMEN: Soft, mild distention noted. EXTREMITITES: 1+ edema. Past Medical History Past Medical History: Cancer, Chest Pain / Angina, Diabetes Mellitus, Eye Disorder, GERD/Reflux, Hyperlipidemia, Hypertension, Osteoarthritis (OA), Prostate Disorder, Renal Disease Additional Past Medical History / Comment(s): HX OF ULCERATIVE COLITIS, PARASTOMAL HERNIA, PROSTATE CA WITH RADIATION AND CHEMO IN 2020, LOW KIDNEY FUNCTION History of Any Multi-Drug Resistant Organisms: MRSA Date of last positivie culture/infection: 11/07/14 MDRO Source:: Scalp Past Surgical History: Appendectomy, Bowel Resection, Orthopedic Surgery Additional Past Surgical History / Comment(s): COLECTOMY, RECTUM REMOVED, ELLIOTT CATARACTS removed, ILEOSTOMY, HERNIA SURGERY, Bilateral hip replacement Past Anesthesia/Blood Transfusion Reactions: No Reported Reaction Past Psychological History: No Psychological Hx Reported Smoking Status: Never smoker Past Alcohol Use History: None Reported Past Drug Use History: None Reported - Past Family History Mother Family Medical History: Cancer Additional Family Medical History / Comment(s): LUNG Father Family Medical History: Cancer Additional Family Medical History / Comment(s): MELANOMA/BRAIN Medications and Allergies Home Medications Medication Instructions Recorded Confirmed Type Atorvastatin Calcium [Lipitor] 20 mg PO DAILY 12/31/14 11/05/21 History Insulin Glargine,Hum.rec.anlog 50 units SQ HS 12/31/14 11/05/21 History [Toujeo Solostar] Omeprazole [PriLOSEC] 20 mg PO DAILY 12/31/14 11/05/21 History atenoloL [Tenormin] 50 mg PO DAILY 12/31/14 11/05/21 History Aspirin EC [Ecotrin Low Dose] 81 mg PO DAILY 11/08/18 11/05/21 History Insulin Aspart [NovoLOG Flexpen] See Protocol SQ AC-TID 11/08/18 11/05/21 History Ergocalciferol (Vitamin D2) 1,250 mcg PO Q14D 06/25/20 11/05/21 History [Drisdol (50,000 Iu)] Tamsulosin HCl [Flomax] 0.4 mg PO PC-SUPPER 06/25/20 11/05/21 History Escitalopram [Lexapro] 10 mg PO DAILY 10/21/21 11/05/21 History allopurinoL [Zyloprim] 100 mg PO DAILY 10/21/21 11/05/21 History amLODIPine [Norvasc] 5 mg PO DAILY 10/21/21 11/05/21 History Melatonin 3 mg PO HS PRN tab 10/24/21 11/05/21 Rx Torsemide [Demadex] 40 mg PO DAILY 30 Days #30 tab 10/24/21 11/05/21 Rx Dapagliflozin Propanediol [Farxiga] 10 mg PO DAILY 11/05/21 11/05/21 History Allergies Allergy/AdvReac Type Severity Reaction Status Date / Time ibuprofen [From Motrin] Allergy Anaphylaxis Verified 11/05/21 22:11 Physical Exam Vitals: Vital Signs Temp Pulse Resp BP Pulse Ox 11/07/21 08:00 57 L 16 116/65 95 11/07/21 04:00 98.0 F 58 L 17 123/64 96 11/07/21 02:00 59 L 19 11/06/21 23:39 98.1 F 59 L 19 129/65 93 L 11/06/21 20:00 98.4 F 61 19 138/64 91 L 11/06/21 16:00 98.0 F 55 L 17 137/67 95 11/06/21 12:00 97.7 F 63 18 119/53 94 L Intake and Output 11/06/21 11/07/21 11/07/21 22:59 06:59 14:59 Intake Total 89.167 180 Output Total 440 Balance -350.833 180 Intake: Intake, IV Titration 89.167 Amount Furosemide 100 mg In 89.167 Sodium Chloride 0.9% 90 ml @ 10 MG/HR 10 mls/hr IV .Q10H [facility] Rx#: [id number] Oral 180 Output: Urine 200 Stool 240 Other: Voiding Method Urinal Urinal # Voids 1 Weight 120.2 kg Results - Lab Results Most recent lab results Calcium 9.0 mg/dL (8.4-10.2) 11/07/21 07:44 Phosphorus 5.2 mg/dL (2.5-4.5) H 11/06/21 07:27 Magnesium 2.4 mg/dL (1.6-2.3) H 11/06/21 07:27 11/06/21 07:27 11/07/21 07:44 Assessment and Plan Plan: Assessment: 1. Acute kidney injury secondary to ATN secondary to cardiorenal syndrome. Creatinine 2.8 today. Nonoliguric. No hydronephrosis noted on CAT scan. UA positive for trace protein and 3+ glucose. Patient was taking SGLT2i outpatient. 2. Metabolic acidosis secondary to acute kidney injury. 3. Volume overload with pleural effusions and pericardial effusion. Cardiology following. 4. Acute on chronic diastolic CHF. 5. Diabetes mellitus. 6. Chronic kidney disease stage IIIB with baseline creatinine in the range of 1.5-2 secondary to diabetic kidney disease and nephrosclerosis. 7. Hypertension with chronic kidney disease. Stable. Plan: Maintain Lasix drip for now. Add metolazone 5 mg once daily. Low-salt diet and 1500 mL fluid restriction. Avoid nephrotoxins. Check bladder scan to rule out urinary retention. Strict is and os. Continue to monitor renal function and urine output. Hold amlodipine for systolic blood pressure less than 120. Thank you for the consultation. I will continue to follow the patient with you during his hospital stay.
[2021-11-07] MEDS: metOLazone 5 MG TAB PO SCH (11:07)
--- NOTE | 2021-11-07 11:45 | P.PN ---
Subjective Progress Note Date: 11/07/21 The patient is seen on rounds. He's feeling better today. Denies any nausea or vomiting. Tolerating a diet. His bowels are moving. Objective - Vital Signs Vital signs: Vital Signs Temp 98.0 F 11/07/21 04:00 Pulse 56 L 11/07/21 11:12 Resp 16 11/07/21 11:12 BP 124/67 11/07/21 11:12 Pulse Ox 92 L 11/07/21 11:12 FiO2 Intake & Output 11/06/21 11/07/21 11/07/21 18:59 06:59 18:59 Intake Total 120 89.167 273.667 Output Total 450 440 Balance -330 -350.833 273.667 Weight 120.2 kg Intake: Intake, IV Titration 89.167 93.667 Amount Furosemide 100 mg In 89.167 93.667 Sodium Chloride 0.9% 90 ml @ 10 MG/HR 10 mls/hr IV .Q10H [facility] Rx#: [id number] Oral 120 180 Output: Urine 450 200 Stool 240 Other: Voiding Method Urinal Urinal Urinal # Voids 1 - Constitutional General appearance: Present: cooperative, no acute distress - Gastrointestinal General gastrointestinal: Present: normal bowel sounds, soft (Softly distended), tenderness (No significant tenderness to palpation) - Labs CBC & Chem 7: 11/06/21 07:27 11/07/21 07:44 Labs: Abnormal Lab Results - Last 24 Hours (Table) 11/06/21 11/06/21 11/06/21 Range/Units 11:47 16:40 21:00 Sodium (137-145) mmol/L Carbon Dioxide (22-30) mmol/L BUN (9-20) mg/dL Creatinine (0.66-1.25) mg/dL Glucose (74-99) mg/dL POC Glucose (mg/dL) 327 H 253 H 207 H (70-110) mg/dL 11/07/21 11/07/21 11/07/21 Range/Units 01:34 06:23 07:44 Sodium 134 L (137-145) mmol/L Carbon Dioxide 21 L (22-30) mmol/L BUN 69 H (9-20) mg/dL Creatinine 2.80 H (0.66-1.25) mg/dL Glucose 192 H (74-99) mg/dL POC Glucose (mg/dL) 220 H 212 H (70-110) mg/dL Assessment and Plan (1) Parastomal hernia Current Visit: Yes Status: Acute Code(s): K43.5 - PARASTOMAL HERNIA WITHOUT OBSTRUCTION OR GANGRENE SNOMED Code(s): 414831702 (2) Abdominal pain Current Visit: Yes Status: Acute Code(s): R10.9 - UNSPECIFIED ABDOMINAL PAIN SNOMED Code(s): 16799362 (3) Pleural effusion Current Visit: Yes Status: Acute Code(s): J90 - PLEURAL EFFUSION, NOT ELSEWHERE CLASSIFIED SNOMED Code(s): 91824256 (4) Congestive heart failure (CHF) Current Visit: No Status: Acute Code(s): I50.9 - HEART FAILURE, UNSPECIFIED SNOMED Code(s): 22902659 (5) Exertional dyspnea Current Visit: No Status: Acute Code(s): R06.00 - DYSPNEA, UNSPECIFIED SNOMED Code(s): 69987332 (6) Parastomal hernia Current Visit: No Status: Acute Code(s): K43.5 - PARASTOMAL HERNIA WITHOUT OBSTRUCTION OR GANGRENE SNOMED Code(s): 471450726 (7) Renal insufficiency Current Visit: No Status: Acute Code(s): N28.9 - DISORDER OF KIDNEY AND URETER, UNSPECIFIED SNOMED Code(s): 586171076 Plan: Patient's feeling better today. He has a nonsurgical abdomen. At this point I will sign off. These notify me if anything changes with his condition not be happy to reexamine him.
[2021-11-07 11:46] LABS: Glucose,Whole Blood 226 mg/dL (70-110)
--- NOTE | 2021-11-07 14:09 | P.PN ---
Progress Note - Text Progress Note Date: 11/07/21 Chief Complaint: Short of breath This is a very pleasant 70-year-old patient of Dr. Dennis. Chronic stable medical conditions include diabetes, GERD, hyperlipidemia, essential hypertension, colostomy, CK D. In September of this year admitted with CHF exacerbation. Patient now presents with increasing shortness of breath. Some edema. Some orthopnea. No fever no chills. Patient is also complaining of pain in the abdominal wall hernia. With any activity. Ileostomy is working fine. No change in bowel pattern. Admitted with acute on chronic CHF exacerbation. Started on IV Lasix drip. November 07: Remains a Lasix drip 10 mg an hour. Didn't make urine. Some worsening of creatinine. Breathing slightly better. Lloyd wrap ordered. Active Medications Acetaminophen (Acetaminophen Tab 325 Mg Tab) 650 mg PO Q6HR PRN PRN Reason: Mild Pain or Fever > 100.5 Last Admin: 11/06/21 21:34 Dose: 650 mg Allopurinol (Allopurinol 100 Mg Tab) 100 mg PO DAILY [facility] Last Admin: 11/07/21 08:46 Dose: 100 mg Amlodipine Besylate (Amlodipine 5 Mg Tab) 5 mg PO HS [facility] Last Admin: 11/06/21 21:34 Dose: 5 mg Aspirin (Aspirin 81 Mg) 81 mg PO DAILY [facility] Last Admin: 11/07/21 08:46 Dose: 81 mg Atenolol (Atenolol 50 Mg Tab) 50 mg PO DAILY [facility] Last Admin: 11/07/21 08:46 Dose: 50 mg Atorvastatin Calcium (Atorvastatin 20 Mg Tab) 20 mg PO DAILY [facility] Last Admin: 11/07/21 08:46 Dose: 20 mg Enoxaparin Sodium (Enoxaparin 40 Mg/0.4 Ml Syringe) 40 mg SQ DAILY [facility] Last Admin: 11/07/21 08:45 Dose: 40 mg Escitalopram Oxalate (Escitalopram 10 Mg Tab) 10 mg PO DAILY [facility] Last Admin: 11/07/21 08:46 Dose: 10 mg Furosemide 100 mg/ Sodium (Chloride) 100 mls @ 10 mls/hr IV .Q10H [facility] Last Admin: 11/07/21 11:07 Dose: 10 mg/hr, 10 mls/hr Insulin Aspart (Insulin Aspart (Novolog) 100 Unit/Ml Vial) 0 unit SQ AC-TID [facility]; Protocol Last Admin: 11/07/21 12:02 Dose: 5 unit Insulin Detemir (Insulin Detemir (Levemir) 100 Unit/Ml Syr) 30 unit SQ HS [facility] Last Admin: 11/06/21 21:34 Dose: 30 unit Melatonin (Melatonin 3 Mg Tablet) 3 mg PO HS PRN PRN Reason: Insomnia Metolazone (Metolazone 5 Mg Tab) 5 mg PO DAILY [facility] Last Admin: 11/07/21 11:07 Dose: 5 mg Naloxone HCl (Naloxone 0.4 Mg/Ml 1 Ml Vial) 0.2 mg IV Q2M PRN PRN Reason: Opioid Reversal Ondansetron HCl (Ondansetron 4 Mg/2 Ml Vial) 4 mg IVP Q8HR PRN PRN Reason: Nausea And Vomiting Pantoprazole Sodium (Pantoprazole 40 Mg Tablet) 40 mg PO DAILY [facility] Last Admin: 11/07/21 08:46 Dose: 40 mg Tamsulosin HCl (Tamsulosin 0.4 Mg Cap.Er.24h) 0.4 mg PO PC-SUPPER [facility] Last Admin: 11/06/21 16:51 Dose: 0.4 mg Past medical history to include: Diabetes, GERD, hyperlipidemia, hypertension, ulcerative colitis with total colectomy and removal of rectum, 22 years ago, prostate cancer treated with radiation treatment. 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 Had a family [employer]. No smoking no alcohol. Family history: Lung cancer Physical examination: VITAL SIGNS: Febrile, 56, 16, 124/67, 92% to be GENERAL: Laying in bed, breathing better EYES: Pupils equal. Conjunctiva normal. HEENT: External appearance of nose and ears normal, oral cavity grossly normal. NECK: JVD unable to assess; masses not palpable. HEART: First and second heart sounds are normal; edema. LUNGS: Respiratory rate normal; decreased breath sounds ABDOMEN: Soft, nontender, liver spleen not palpable, no masses palpable. Right-sided ileostomy. Left abdomen tenderness over hernia PSYCH: Alert and oriented x3; mood and affect normal. MUSCULOSKELETAL:No Clubbing/cyanosis;muscles-grossly intact INVESTIGATIONS, reviewed in the clinical context: November 07: Potassium 4.6 BUN 69 creatinine 2.8 November 06: White count 9.7 hemoglobin 10.2 platelets 327 potassium 5.2 BUN 61 creatinine 2.37 2-D echocardiogram: EF 55-60% Admission labs: Computed tomography scan abdomen and pelvis without contrast: Significant pancreatic atrophy. Large parastomal hernia with no bowel obstruction. Right- sided ileostomy. Bilateral pleural effusion and pericardial effusion. Troponin I: Negative White count 15.3 hemoglobin 10.2 platelets 420 potassium 5.4 and 55 creatinine 2.28. Amylase lipase normal COVID 19: Not detected EKG tracing personally reviewed by me-normal sinus rhythm. Rate 62 Chest x-ray film personally reviewed by me-lor grace. Some venous prominence. Left pleural effusion. Previous labs: BUN 44 creatinine 2.06 on 10/24/2021 Assessment and plan: -Acute on chronic congestive heart failure exacerbation from diastolic dysfunction EF 55-60%: Slow to respond Lasix drip 10 mg an hour. Fluid restriction. Strict I's and O's. -Acute kidney injury possibly a component of cardiorenal syndrome: Some worsening Follow renal function closely -Parastomal hernia, but no obstruction Awaiting abdominal binder. Follow with Dr. augustine. No surgical intervention -Small global pericardial effusion. asymptomatic Follow with cardiology -Diabetes mellitus type 2, chronically on insulin. Follow Accu-Cheks. Levemir 30 units subcu daily at bedtime. -Essential hypertension Tenormin 50 mg a day. Norvasc 5 mg a daily at bedtime -Chronic right-sided ileostomy Ileostomy care -Hyperuricemia Allopurinol 100 mg a day -Bladder outflow obstruction Flomax 0.4 mg daily -GERD Prilosec 20 mg a day -Hyperlipidemia Lipitor 20 mg a day -Morbid obesity BMI 42.9 Weight loss measures. -Chronic kidney disease stage III with diabetic nephropathy and hypertensive nephrosclerosis Baseline creatinine of 2.06 Continue Lasix drip 10 mg hour. Fluid restriction Strict I's and O's. Follow renal function. Awaiting abdominal binder. Lloyd wrap. Discussed with patient.
[2021-11-07 16:23] LABS: Glucose,Whole Blood 225 mg/dL (70-110)
[2021-11-07] MEDS: TAMSULOSIN 0.4 MG CAP.ER.24H PO SCH (17:07)
--- NOTE | 2021-11-07 18:37 | P.PN ---
Subjective HISTORY OF PRESENT ILLNESS: This is a 70-year-old male with a past medical history significant for hypertension, hyperlipidemia, congestive heart failure, CKD, abdominal pain. Patient follows in the office with Dr. Bales. He previously presented to the hospital 2 weeks ago more with chest pains as well as dyspnea on exertion which the dyspnea has been progressive over last year. He was also having significant abdominal pain at the time. Troponins were noted to be normal and echo showed EF 50-55% with mild mitral regurgitation and he was placed on IV Lasix and then sent home. He followed up in the office with Dr. Bales yesterday however was having severe abdominal pain with concern of severe tenderness to palpation and therefore directed to go to emergency department. CT abdomen and pelvis showed right-sided ileostomy with a large peristomal hernia with hernia appearing to be slightly increased as well as bilateral pleural effusions and a pericardial effusion which is reportedly new compared to old exam. Previous CT chest 10/21 showed no concern of pericardial effusion. He was placed on torsemide going home. Blood work shows white blood cell count 15.3, hemoglobin 10.2, sodium 133, creatinine 2.28, BUN 55, potassium 5.4, proBNP 7 and 83, troponin normal 3. Baseline creatinine appears 1.5-1.8. 11/07 Patient seen and examined. Echocardiogram performed showing preserved EF with small pericardial effusion without any tamponade. Admits his abdominal pain is predominantly better. Nephrology evaluated patient and placed patient on Lasix drip. Moderate urine output with minus approximately 700 mL over the last 24 ho urs and limited oral intake. Creatinine however increasing. States he is feeling better in terms of his abdominal pain. PHYSICAL EXAM: VITAL SIGNS: Reviewed. GENERAL: Well-developed in no acute distress. HEENT: Head is normocephalic. Pupils are equal, round. Sclerae anicteric. Mucous membranes of the mouth are moist. Neck supple. No JVD or thyromegaly LUNGS: Respirations even and unlabored. Lungs diminished with bibasilar crackles HEART: Regular rate and rhythm. S1 and S2 heard. ABDOMEN: Soft. Mildly distended. +tender. EXTREMITIES: Normal range of motion. No clubbing or cyanosis. Peripheral pulses intact. 2+ bilateral lower extremity edema NEUROLOGIC: Awake and alert. Oriented x 3. ASSESSMENT: Moderate pericardial effusion by CT abdomen and Pelvis, new compared to prior CT 10/21 Chronic heart failure with preserved ejection fraction Chest pain last admission, improved Hypertension Hyperlipidemia COWAN over last year ROSELYN PLAN: Patient's main presentation was for abdominal pain which possibly related to hernia. Abdominal pain. Appears much improved. Incidental note of pleural effusions and pericardial effusion. He has had limited oral intake. Placed on IV Lasix drip with increasing creatinine. Defer diuretics to nephrology. Monitor response. Likely check repeat echo in 1-2 weeks or sooner if has any clinical decompensation. Check basic autoimmune workup with TOMMY as well as inflammatory markers for workup of pericardial effusion. Does not appear to have any pericarditis-type symptoms and no recent viral-type infection. May consider colchicine however continue to monitor at this point. Objective - Vital Signs Vital signs: Vital Signs Temp 98.0 F 11/07/21 04:00 Pulse 61 11/07/21 16:00 Resp 16 11/07/21 16:00 BP 127/56 11/07/21 16:00 Pulse Ox 92 L 11/07/21 16:00 FiO2 Intake & Output 11/06/21 11/07/21 11/07/21 18:59 06:59 18:59 Intake Total 120 89.167 453.667 Output Total 450 440 475 Balance -330 -350.833 -21.333 Weight 120.2 kg Intake: Intake, IV Titration 89.167 93.667 Amount Furosemide 100 mg In 89.167 93.667 Sodium Chloride 0.9% 90 ml @ 10 MG/HR 10 mls/hr IV .Q10H [facility] Rx#: [id number] Oral 120 360 Output: Urine 450 200 325 Stool 240 150 Other: Voiding Method Urinal Urinal Urinal # Voids 1 - Labs CBC & Chem 7: 11/06/21 07:27 11/07/21 07:44 Labs: Abnormal Lab Results - Last 24 Hours (Table) 11/06/21 11/07/21 11/07/21 Range/Units 21:00 01:34 06:23 Sodium (137-145) mmol/L Carbon Dioxide (22-30) mmol/L BUN (9-20) mg/dL Creatinine (0.66-1.25) mg/dL Glucose (74-99) mg/dL POC Glucose (mg/dL) 207 H 220 H 212 H (70-110) mg/dL 11/07/21 11/07/2111/07/22 Range/Units 07:44 11:45 16:21 Sodium 134 L (137-145) mmol/L Carbon Dioxide 21 L (22-30) mmol/L BUN 69 H (9-20) mg/dL Creatinine 2.80 H (0.66-1.25) mg/dL Glucose 192 H (74-99) mg/dL POC Glucose (mg/dL) 226 H 225 H (70-110) mg/dL
[2021-11-07 20:15] LABS: Glucose,Whole Blood 224 mg/dL (70-110)
[2021-11-07] MEDS: amLODIPine 5 MG TAB PO SCH (21:02)
[2021-11-07] MEDS: INSULIN DETEMIR (LEVEMIR) 100 UNIT/ML SYR SQ SCH (21:02)
[2021-11-08] MEDS: FUROSEMIDE 100 MG in SODIUM CHLORIDE 0.9% 90 ML IV SCH ×2 (00:12→09:14)
[2021-11-08 02:06] LABS: Glucose,Whole Blood 241 mg/dL (70-110)
[2021-11-08 06:12] LABS: Glucose,Whole Blood 201 mg/dL (70-110)
[2021-11-08] MEDS: INSULIN ASPART (NovoLOG) 100 UNIT/ML VIAL SQ SCH ×3 (06:48→16:58)
[2021-11-08 07:46] LABS: Calcium 8.9 mg/dL (8.4-10.2); Magnesium 2.4 mg/dL (1.6-2.3); Potassium 4.1 mmol/L (3.5-5.1)
[2021-11-08] MEDS: ENOXAPARIN 40 MG/0.4 ML SYRINGE SQ SCH (09:18)
[2021-11-08] MEDS: metOLazone 5 MG TAB PO SCH (09:19)
[2021-11-08] MEDS: ASPIRIN 81 MG PO SCH (09:19)
[2021-11-08] MEDS: ATORVASTATIN 20 MG TAB PO SCH (09:19)
[2021-11-08] MEDS: allopurinoL 100 MG TAB PO SCH (09:19)
[2021-11-08] MEDS: PANTOPRAZOLE 40 MG TABLET PO SCH (09:19)
[2021-11-08] MEDS: atenoloL 50 MG TAB PO SCH (09:19)
[2021-11-08] MEDS: ESCITALOPRAM 10 MG TAB PO SCH (09:19)
[2021-11-08 12:14] LABS: Glucose,Whole Blood 256 mg/dL (70-110)
--- NOTE | 2021-11-08 13:28 | P.PN ---
Subjective HISTORY OF PRESENT ILLNESS: This is a 70-year-old male with a past medical history significant for hypertension, hyperlipidemia, congestive heart failure, CKD, abdominal pain. Patient follows in the office with Dr. Bales. He previously presented to the hospital 2 weeks ago more with chest pains as well as dyspnea on exertion which the dyspnea has been progressive over last year. He was also having significant abdominal pain at the time. Troponins were noted to be normal and echo showed EF 50-55% with mild mitral regurgitation and he was placed on IV Lasix and then sent home. He followed up in the office with Dr. Bales yesterday however was having severe abdominal pain with concern of severe tenderness to palpation and therefore directed to go to emergency department. CT abdomen and pelvis showed right-sided ileostomy with a large peristomal hernia with hernia appearing to be slightly increased as well as bilateral pleural effusions and a pericardial effusion which is reportedly new compared to old exam. Previous CT chest 10/21 showed no concern of pericardial effusion. He was placed on torsemide going home. Blood work shows white blood cell count 15.3, hemoglobin 10.2, sodium 133, creatinine 2.28, BUN 55, potassium 5.4, proBNP 7 and 83, troponin normal 3. Baseline creatinine appears 1.5-1.8. 11/08/2021 Patient seen and examined lying flat in bed with his at the bedside. He continues to be on a Lasix infusion per nephrology. He has no symptoms of chest discomfort. Blood pressure 129/55 heart rate 59 afebrile maintaining oxygen saturation on room air. Laboratory data reviewed, sodium 135, potassium 4.1, creatinine 2.76 and magnesium 2.4. PHYSICAL EXAM: VITAL SIGNS: Reviewed. GENERAL: Well-developed in no acute distress. HEENT: Head is normocephalic. Pupils are equal, round. Sclerae anicteric. Mucous membranes of the mouth are moist. Neck supple. No JVD or thyromegaly LUNGS: Respirations even and unlabored. Lungs diminished with bibasilar crackles HEART: Regular rate and rhythm. S1 and S2 heard. ABDOMEN: Soft. Mildly distended. +tender. EXTREMITIES: Normal range of motion. No clubbing or cyanosis. Peripheral pulses intact. 2+ bilateral lower extremity edema NEUROLOGIC: Awake and alert. Oriented x 3. ASSESSMENT: Moderate pericardial effusion by CT abdomen and Pelvis, new compared to prior CT 10/21 Chronic heart failure with preserved ejection fraction Chest pain last admission, improved Hypertension Hyperlipidemia COWAN over last year ROSELYN PLAN: Continue nephrology diuresis. He is maintained on allopurinol, colchicine at this time. Follow-up in the office upon discharge with Dr. Bales and he will have a repeat echocardiogram to assess the pericardial effusion. We will follow along as needed, please feel free to call with further questions or concerns. Nurse Practitioner note has been reviewed, I agree with a documented findings and plan of care. Patient was seen and examined. Objective - Vital Signs Vital signs: Vital Signs Temp 97.3 F L 11/08/21 08:00 Pulse 59 L 11/08/21 12:00 Resp 16 11/08/21 12:00 BP 129/55 11/08/21 12:00 Pulse Ox 93 L 11/08/21 12:00 FiO2 Intake & Output 11/07/21 11/08/21 11/08/21 18:59 06:59 18:59 Intake Total 453.667 220 208.333 Output Total 475 725 450 Balance -21.333 -505 -241.667 Weight 118.9 kg Intake: Intake, IV Titration 93.667 100 90.333 Amount Furosemide 100 mg In 93.667 100 90.333 Sodium Chloride 0.9% 90 ml @ 10 MG/HR 10 mls/hr IV .Q10H [facility] Rx#: [id number] Oral 360 120 118 Output: Urine 325 525 350 Stool 150 200 100 Other: Voiding Method Urinal Urinal Urinal # Voids 1 1 - Labs CBC & Chem 7: 11/06/21 07:27 11/08/21 07:05 Labs: Abnormal Lab Results - Last 24 Hours (Table) 11/07/21 11/07/21 11/07/21 Range/Units 16:21 20:13 20:55 ESR (0-15) mm/hr Sodium (137-145) mmol/L Chloride (98-107) mmol/L BUN (9-20) mg/dL Creatinine (0.66-1.25) mg/dL Glucose (74-99) mg/dL POC Glucose (mg/dL) 225 H 224 H (70-110) mg/dL Magnesium (1.6-2.3) mg/dL C-Reactive Protein 9.0 H (<1.0) mg/dL 11/07/21 11/08/21 11/08/21 Range/Units 20:55 02:02 06:11 ESR 107 H (0-15) mm/hr Sodium (137-145) mmol/L Chloride (98-107) mmol/L BUN (9-20) mg/dL Creatinine (0.66-1.25) mg/dL Glucose (74-99) mg/dL POC Glucose (mg/dL) 241 H 201 H (70-110) mg/dL Magnesium (1.6-2.3) mg/dL C-Reactive Protein (<1.0) mg/dL 11/08/21 11/08/21 Range/Units 07:05 12:12 ESR (0-15) mm/hr Sodium 135 L (137-145) mmol/L Chloride 97 L (98-107) mmol/L BUN 74 H (9-20) mg/dL Creatinine 2.76 H (0.66-1.25) mg/dL Glucose 207 H (74-99) mg/dL POC Glucose (mg/dL) 256 H (70-110) mg/dL Magnesium 2.4 H (1.6-2.3) mg/dL C-Reactive Protein (<1.0) mg/dL
--- NOTE | 2021-11-08 14:31 | P.PN ---
Progress Note - Text Progress Note Date: 11/08/21 Chief Complaint: Short of breath This is a very pleasant 70-year-old patient of Dr. Dennis. Chronic stable medical conditions include diabetes, GERD, hyperlipidemia, essential hypertension, colostomy, CK D. In September of this year admitted with CHF exacerbation. Patient now presents with increasing shortness of breath. Some edema. Some orthopnea. No fever no chills. Patient is also complaining of pain in the abdominal wall hernia. With any activity. Ileostomy is working fine. No change in bowel pattern. Admitted with acute on chronic CHF exacerbation. Started on IV Lasix drip. November 07: Remains a Lasix drip 10 mg an hour. Didn't make urine. Some worsening of creatinine. Breathing slightly better. Lloyd wrap ordered. November 08: Remains a Lasix drip. Not too much of urine output. Breathing much better. Patient questions about abdominal binder. To be used above his ileostomy. We'll see how that does. We'll discuss with nephrology to see patient imitations to by mouth diuretics. Active Medications Acetaminophen (Acetaminophen Tab 325 Mg Tab) 650 mg PO Q6HR PRN PRN Reason: Mild Pain or Fever > 100.5 Last Admin: 11/06/21 21:34 Dose: 650 mg Allopurinol (Allopurinol 100 Mg Tab) 100 mg PO DAILY [facility] Last Admin: 11/08/21 09:19 Dose: 100 mg Amlodipine Besylate (Amlodipine 5 Mg Tab) 5 mg PO HS [facility] Last Admin: 11/07/21 21:02 Dose: 5 mg Aspirin (Aspirin 81 Mg) 81 mg PO DAILY [facility] Last Admin: 11/08/21 09:19 Dose: 81 mg Atenolol (Atenolol 50 Mg Tab) 50 mg PO DAILY [facility] Last Admin: 11/08/21 09:19 Dose: 50 mg Atorvastatin Calcium (Atorvastatin 20 Mg Tab) 20 mg PO DAILY [facility] Last Admin: 11/08/21 09:19 Dose: 20 mg Enoxaparin Sodium (Enoxaparin 40 Mg/0.4 Ml Syringe) 40 mg SQ DAILY [facility] Last Admin: 11/08/21 09:18 Dose: 40 mg Escitalopram Oxalate (Escitalopram 10 Mg Tab) 10 mg PO DAILY [facility] Last Admin: 11/08/21 09:19 Dose: 10 mg Furosemide 100 mg/ Sodium (Chloride) 100 mls @ 10 mls/hr IV .Q10H [facility] Last Admin: 11/08/21 09:14 Dose: 10 mg/hr, 10 mls/hr Insulin Aspart (Insulin Aspart (Novolog) 100 Unit/Ml Vial) 0 unit SQ AC-TID [facility]; Protocol Last Admin: 11/08/21 12:23 Dose: 6 unit Insulin Detemir (Insulin Detemir (Levemir) 100 Unit/Ml Syr) 30 unit SQ HS [facility] Last Admin: 11/07/21 21:02 Dose: 30 unit Melatonin (Melatonin 3 Mg Tablet) 3 mg PO HS PRN PRN Reason: Insomnia Metolazone (Metolazone 5 Mg Tab) 5 mg PO DAILY [facility] Last Admin: 11/08/21 09:19 Dose: 5 mg Naloxone HCl (Naloxone 0.4 Mg/Ml 1 Ml Vial) 0.2 mg IV Q2M PRN PRN Reason: Opioid Reversal Ondansetron HCl (Ondansetron 4 Mg/2 Ml Vial) 4 mg IVP Q8HR PRN PRN Reason: Nausea And Vomiting Pantoprazole Sodium (Pantoprazole 40 Mg Tablet) 40 mg PO DAILY [facility] Last Admin: 11/08/21 09:19 Dose: 40 mg Tamsulosin HCl (Tamsulosin 0.4 Mg Cap.Er.24h) 0.4 mg PO PC-SUPPER [facility] Last Admin: 11/07/21 17:07 Dose: 0.4 mg Past medical history to include: Diabetes, GERD, hyperlipidemia, hypertension, ulcerative colitis with total colectomy and removal of rectum, 22 years ago, prostate cancer treated with r adiation treatment. 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 No smoking no alcohol. Family history: Lung cancer Physical examination: VITAL SIGNS: 97.3, 60, 16, 137/63, 92% on 2 L GENERAL: Laying in bed, breathing better EYES: Pupils equal. Conjunctiva normal. HEENT: External appearance of nose and ears normal, oral cavity grossly normal. NECK: JVD unable to assess; masses not palpable. HEART: First and second heart sounds are normal; Lloyd wraps LUNGS: Respiratory rate normal; decreased breath sounds ABDOMEN: Soft, mild tenderness, liver spleen not palpable, no masses palpable. Right-sided ileostomy. Left abdomen tenderness over hernia PSYCH: Alert and oriented x3; mood and affect normal. MUSCULOSKELETAL:No Clubbing/cyanosis;muscles-grossly intact INVESTIGATIONS, reviewed in the clinical context: November 08: Potassium 4.1 creatinine 2.76 November 07: Potassium 4.6 BUN 69 creatinine 2.8 November 06: White count 9.7 hemoglobin 10.2 platelets 327 potassium 5.2 BUN 61 creatinine 2.37 2-D echocardiogram: EF 55-60% Admission labs: Computed tomography scan abdomen and pelvis without contrast: Significant pancreatic atrophy. Large parastomal hernia with no bowel obstruction. Right- sided ileostomy. Bilateral pleural effusion and pericardial effusion. Troponin I: Negative White count 15.3 hemoglobin 10.2 platelets 420 potassium 5.4 and 55 creatinine 2.28. Amylase lipase normal COVID 19: Not detected EKG tracing personally reviewed by me-normal sinus rhythm. Rate 62 Chest x-ray film personally reviewed by me-lor grace. Some venous prominence. Left pleural effusion. Previous labs: BUN 44 creatinine 2.06 on 10/24/2021 Assessment and plan: -Acute on chronic congestive heart failure exacerbation from diastolic dysfunction EF 55-60%: Improving Lasix drip 10 mg an hour. Fluid restriction. Strict I's and O's. -Acute kidney injury possibly a component of cardiorenal syndrome: Slow to respond Follow renal function closely -Parastomal hernia, but no obstruction Try abdominal binder. Follow with Dr. ramos. No surgical intervention -Small global pericardial effusion. asymptomatic Follow with cardiology -Diabetes mellitus type 2, chronically on insulin. Follow Accu-Cheks. Levemir 30 units subcu daily at bedtime. -Essential hypertension Tenormin 50 mg a day. Norvasc 5 mg a daily at bedtime -Chronic right-sided ileostomy Ileostomy care -Hyperuricemia Allopurinol 100 mg a day -Bladder outflow obstruction Flomax 0.4 mg daily -GERD Prilosec 20 mg a day -Hyperlipidemia Lipitor 20 mg a day -Morbid obesity BMI 42.9 Weight loss measures. -Chronic kidney disease stage III with diabetic nephropathy and hypertensive nephrosclerosis Baseline creatinine of 2.06 Continue Lasix drip 10 mg hour. Fluid restriction Strict I's and O's. Follow renal function. Try abdominal binder today. Discussed with the patient and . We'll discuss with nephrology about changing to by mouth diuretics.
--- NOTE | 2021-11-08 14:35 | P.PN ---
Subjective Patient is seen for follow-up for acute kidney injury and top of chronic kidney disease. Patient is currently being diuresed. He is maintained on Lasix drip. Serum creatinine down to 2.7 from 2.8 yesterday. Patient was started on oxygen via nasal cannula. No significant chest pains or shortness of breath today. Urine output around 800 mL for 24 hours. Objective - Vital Signs Vital signs: Vital Signs Temp 97.3 F L 11/08/21 08:00 Pulse 59 L 11/08/21 12:00 Resp 16 11/08/21 12:00 BP 129/55 11/08/21 12:00 Pulse Ox 93 L 11/08/21 12:00 FiO2 Intake & Output 11/07/21 11/08/21 11/08/21 18:59 06:59 18:59 Intake Total 453.667 220 208.333 Output Total 475 725 450 Balance -21.333 -505 -241.667 Weight 118.9 kg Intake: Intake, IV Titration 93.667 100 90.333 Amount Furosemide 100 mg In 93.667 100 90.333 Sodium Chloride 0.9% 90 ml @ 10 MG/HR 10 mls/hr IV .Q10H [facility] Rx#: [id number] Oral 360 120 118 Output: Urine 325 525 350 Stool 150 200 100 Other: Voiding Method Urinal Urinal Urinal # Voids 1 1 - Exam Awake, comfortable, not in any acute distress Examination of the heart S1 and S2 Examination of the lungs decreased breath sounds at the bases Abdomen is soft obese nontender Examination of the lower extremity shows edema 1+ bilaterally [employer] exam grossly intact - Labs CBC & Chem 7: 11/06/21 07:27 11/08/21 07:05 Labs: Abnormal Lab Results - Last 24 Hours (Table) 11/07/21 11/07/21 11/07/21 Range/Units 16:21 20:13 20:55 ESR (0-15) mm/hr Sodium (137-145) mmol/L Chloride (98-107) mmol/L BUN (9-20) mg/dL Creatinine (0.66-1.25) mg/dL Glucose (74-99) mg/dL POC Glucose (mg/dL) 225 H 224 H (70-110) mg/dL Magnesium (1.6-2.3) mg/dL C-Reactive Protein 9.0 H (<1.0) mg/dL 11/07/21 11/08/21 11/08/21 Range/Units 20:55 02:02 06:11 ESR 107 H (0-15) mm/hr Sodium (137-145) mmol/L Chloride (98-107) mmol/L BUN (9-20) mg/dL Creatinine (0.66-1.25) mg/dL Glucose (74-99) mg/dL POC Glucose (mg/dL) 241 H 201 H (70-110) mg/dL Magnesium (1.6-2.3) mg/dL C-Reactive Protein (<1.0) mg/dL 11/08/21 11/08/21 Range/Units 07:05 12:12 ESR (0-15) mm/hr Sodium 135 L (137-145) mmol/L Chloride 97 L (98-107) mmol/L BUN 74 H (9-20) mg/dL Creatinine 2.76 H (0.66-1.25) mg/dL Glucose 207 H (74-99) mg/dL POC Glucose (mg/dL) 256 H (70-110) mg/dL Magnesium 2.4 H (1.6-2.3) mg/dL C-Reactive Protein (<1.0) mg/dL Assessment and Plan Assessment: 1. Acute kidney injury secondary to cardiorenal syndrome, ATN. No evidence of obstruction on CAT scan. UA positive for trace protein. 2. Chronic kidney disease stage IIIB with baseline creatinine 1.5-2 mg/dL secondary to diabetic kidney disease and nephrosclerosis [place] 3. Volume overload with pleural effusion and pericardial effusion currently being diuresed 4. Acute on chronic diastolic CHF 5. Metabolic acidosis associated with acute kidney injury Plan: Switch Lasix drip to IV push Lasix today Repeat labs in a.m.
[2021-11-08 16:50] LABS: Glucose,Whole Blood 231 mg/dL (70-110)
[2021-11-08] MEDS: TAMSULOSIN 0.4 MG CAP.ER.24H PO SCH (16:58)
[2021-11-08 20:19] LABS: Glucose,Whole Blood 314 mg/dL (70-110)
[2021-11-08] MEDS: amLODIPine 5 MG TAB PO SCH (20:44)
[2021-11-08] MEDS: FUROSEMIDE 10 MG/ML 4 ML VIAL IV SCH (20:44)
[2021-11-08] MEDS ORDERED: INSULIN DETEMIR (LEVEMIR) 100 UNIT/ML SYR SQ SCH (21:00)
[2021-11-09 02:04] LABS: Glucose,Whole Blood 249 mg/dL (70-110)
[2021-11-09 06:03] LABS: Glucose,Whole Blood 232 mg/dL (70-110)
[2021-11-09] MEDS: INSULIN ASPART (NovoLOG) 100 UNIT/ML VIAL SQ SCH ×3 (06:45→17:15)
[2021-11-09 08:09] LABS: Calcium 9.1 mg/dL (8.4-10.2)
[2021-11-09] MEDS: FUROSEMIDE 10 MG/ML 4 ML VIAL IV SCH ×2 (09:03→20:25)
[2021-11-09] MEDS: metOLazone 5 MG TAB PO SCH (09:04)
[2021-11-09] MEDS: ENOXAPARIN 40 MG/0.4 ML SYRINGE SQ SCH (09:04)
[2021-11-09] MEDS: ATORVASTATIN 20 MG TAB PO SCH (09:04)
[2021-11-09] MEDS: ASPIRIN 81 MG PO SCH (09:04)
[2021-11-09] MEDS: allopurinoL 100 MG TAB PO SCH (09:04)
[2021-11-09] MEDS: atenoloL 50 MG TAB PO SCH (09:04)
[2021-11-09] MEDS: ESCITALOPRAM 10 MG TAB PO SCH (09:04)
[2021-11-09] MEDS: PANTOPRAZOLE 40 MG TABLET PO SCH (09:05)
[2021-11-09 12:05] LABS: Glucose,Whole Blood 208 mg/dL (70-110)
--- NOTE | 2021-11-09 13:19 | P.PN ---
Subjective Patient is seen for follow-up for acute kidney injury and top of chronic kidney disease. Patient is currently being diuresed. Patient was maintained on Lasix drip. Serum creatinine down to 2.5 from 2.7 yesterday. Patient was started on oxygen via nasal cannula. No significant chest pains or shortness of breath today. Urine output around 1675 mL for 24 hours. Lasix drip discontinued yesterday and switch to IV push Lasix 40 mg twice a day. Objective - Vital Signs Vital signs: Vital Signs Temp 97.6 F 11/09/21 09:12 Pulse 50 L 11/09/21 12:00 Resp 20 11/09/21 12:00 BP 114/58 11/09/21 12:00 Pulse Ox 90 L 11/09/21 12:00 FiO2 Intake & Output 11/08/21 11/09/21 11/09/21 18:59 06:59 18:59 Intake Total 566.333 240 240 Output Total 1650 850 Balance -1083.667 -610 240 Intake: Intake, IV Titration 90.333 Amount Furosemide 100 mg In 90.333 Sodium Chloride 0.9% 90 ml @ 10 MG/HR 10 mls/hr IV .Q10H [facility] Rx#: [id number] Oral 476 240 240 Output: Urine 950 725 Stool 700 125 Other: Voiding Method Urinal Urinal # Voids 3 - Exam Awake, comfortable, not in any acute distress Examination of the heart S1 and S2 Examination of the lungs decreased breath sounds at the bases Abdomen is soft obese nontender Examination of the lower extremity shows edema 1+ bilaterally [employer] exam grossly intact - Labs CBC & Chem 7: 11/06/21 07:27 11/09/21 07:10 Labs: Abnormal Lab Results - Last 24 Hours (Table) 11/07/21 11/08/21 11/08/21 Range/Units 20:55 16:34 20:17 Sodium (137-145) mmol/L Chloride (98-107) mmol/L BUN (9-20) mg/dL Creatinine (0.66-1.25) mg/dL Glucose (74-99) mg/dL POC Glucose (mg/dL) 231 H 314 H (70-110) mg/dL TMOMY Screen POSITIVE A (NEGATIVE) 11/09/21 11/09/21 11/09/21 Range/Units 01:58 05:43 07:10 Sodium 136 L (137-145) mmol/L Chloride 96 L (98-107) mmol/L BUN 80 H (9-20) mg/dL Creatinine 2.50 H (0.66-1.25) mg/dL Glucose 192 H (74-99) mg/dL POC Glucose (mg/dL) 249 H 232 H (70-110) mg/dL TOMMY Screen (NEGATIVE) 11/09/21 Range/Units 11:58 Sodium (137-145) mmol/L Chloride (98-107) mmol/L BUN (9-20) mg/dL Creatinine (0.66-1.25) mg/dL Glucose (74-99) mg/dL POC Glucose (mg/dL) 208 H (70-110) mg/dL TOMMY Screen (NEGATIVE) Assessment and Plan Assessment: 1. Acute kidney injury secondary to cardiorenal syndrome, ATN. No evidence of obstruction on CAT scan. UA positive for trace protein. 2. Chronic kidney disease stage IIIB with baseline creatinine 1.5-2 mg/dL secondary to diabetic kidney disease and nephrosclerosis 3. Volume overload with pleural effusion and pericardial effusion currently being diuresed 4. Acute on chronic diastolic CHF 5. Metabolic acidosis associated with acute kidney injury Plan: Can switch to by mouth Lasix today if not discharged otherwise continue with IV Lasix twice a day. Follow-up as outpatient for CKD
--- NOTE | 2021-11-09 15:05 | P.PN ---
Progress Note - Text Progress Note Date: 11/09/21 Chief Complaint: Short of breath This is a very pleasant 70-year-old patient of Dr. Dennis. Chronic stable medical conditions include diabetes, GERD, hyperlipidemia, essential hypertension, colostomy, CK D. In September of this year admitted with CHF exacerbation. Patient now presents with increasing shortness of breath. Some edema. Some orthopnea. No fever no chills. Patient is also complaining of pain in the abdominal wall hernia. With any activity. Ileostomy is working fine. No change in bowel pattern. Admitted with acute on chronic CHF exacerbation. Started on IV Lasix drip. November 07: Remains a Lasix drip 10 mg an hour. Didn't make urine. Some worsening of creatinine. Breathing slightly better. Lloyd wrap ordered. November 08: Remains a Lasix drip. Not too much of urine output. Breathing much better. Patient questions about abdominal binder. To be used above his ileostomy. We'll see how that does. We'll discuss with nephrology to see patient imitations to by mouth diuretics. November 09: Patient on IV Lasix 40 mg every 12. Edema significantly gone down. Breathing better. Using abdominal binder. Working well. Oral intake fair. Discussed with patient and . Active Medications Acetaminophen (Acetaminophen Tab 325 Mg Tab) 650 mg PO Q6HR PRN PRN Reason: Mild Pain or Fever > 100.5 Last Admin: 11/06/21 21:34 Dose: 650 mg Allopurinol (Allopurinol 100 Mg Tab) 100 mg PO DAILY [facility] Last Admin: 11/09/21 09:04 Dose: 100 mg Amlodipine Besylate (Amlodipine 5 Mg Tab) 5 mg PO HS [facility] Last Admin: 11/08/21 20:44 Dose: 5 mg Aspirin (Aspirin 81 Mg) 81 mg PO DAILY [facility] Last Admin: 11/09/21 09:04 Dose: 81 mg Atenolol (Atenolol 50 Mg Tab) 50 mg PO DAILY [facility] Last Admin: 11/09/21 09:04 Dose: 50 mg Atorvastatin Calcium (Atorvastatin 20 Mg Tab) 20 mg PO DAILY [facility] Last Admin: 11/09/21 09:04 Dose: 20 mg Enoxaparin Sodium (Enoxaparin 40 Mg/0.4 Ml Syringe) 40 mg SQ DAILY [facility] Last Admin: 11/09/21 09:04 Dose: 40 mg Escitalopram Oxalate (Escitalopram 10 Mg Tab) 10 mg PO DAILY [facility] Last Admin: 11/09/21 09:04 Dose: 10 mg Furosemide (Furosemide 10 Mg/Ml 4 Ml Vial) 40 mg IV Q12HR [facility] Last Admin: 11/09/21 09:03 Dose: 40 mg Insulin Aspart (Insulin Aspart (Novolog) 100 Unit/Ml Vial) 0 unit SQ AC-TID [facility]; Protocol Last Admin: 11/09/21 12:10 Dose: 4 unit Insulin Detemir (Insulin Detemir (Levemir) 100 Unit/Ml Syr) 40 unit SQ HS [facility] Last Admin: 11/08/21 20:45 Dose: 40 unit Melatonin (Melatonin 3 Mg Tablet) 3 mg PO HS PRN PRN Reason: Insomnia Metolazone (Metolazone 5 Mg Tab) 5 mg PO DAILY [facility] Last Admin: 11/09/21 09:04 Dose: 5 mg Ondansetron HCl (Ondansetron 4 Mg/2 Ml Vial) 4 mg IVP Q8HR PRN PRN Reason: Nausea And Vomiting Pantoprazole Sodium (Pantoprazole 40 Mg Tablet) 40 mg PO DAILY [facility] Last Admin: 11/09/21 09:05 Dose: 40 mg Tamsulosin HCl (Tamsulosin 0.4 Mg Cap.Er.24h) 0.4 mg PO PC-SUPPER [facility] Last Admin: 11/08/21 16:58 Dose: 0.4 mg Past medical history to include: Diabetes, GERD, hyperlipidemia, hypertension, ulcerative colitis with total colectomy and removal of rectum, 22 years ago, prostate cancer treated with radiation treatment. 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 No smoking no alcohol. Family history: Lung cancer Physical examination: VITAL SIGNS: 97.6, 16, 17, 1 35 x 60, 91% on 2 L GENERAL: Sitting of the edge of the bed, breathing better EYES: Pupils equal. Conjunctiva normal. HEENT: External appearance of nose and ears normal, oral cavity grossly normal. NECK: JVD unable to assess; masses not palpable. HEART: First and second heart sounds are normal; Lloyd wraps, edema decreased LUNGS: Respiratory rate normal; decreased breath sounds ABDOMEN: Soft, mild tenderness, liver spleen not palpable, no masses palpable. Right-sided ileostomy. Left abdomen tenderness over hernia PSYCH: Alert and oriented x3; mood and affect normal. MUSCULOSKELETAL:No Clubbing/cyanosis;muscles-grossly intact INVESTIGATIONS, reviewed in the clinical context: November 09: Potassium 4 creatinine 2.5 November 08: Potassium 4.1 creatinine 2.76 November 07: Potassium 4.6 BUN 69 creatinine 2.8 November 06: White count 9.7 hemoglobin 10.2 platelets 327 potassium 5.2 BUN 61 creatinine 2.37 2-D echocardiogram: EF 55-60% Admission labs: Computed tomography scan abdomen and pelvis without contrast: Significant pancreatic atrophy. Large parastomal hernia with no bowel obstruction. Right- sided ileostomy. Bilateral pleural effusion and pericardial effusion. Troponin I: Negative White count 15.3 hemoglobin 10.2 platelets 420 potassium 5.4 and 55 creatinine 2.28. Amylase lipase normal COVID 19: Not detected EKG tracing personally reviewed by me-normal sinus rhythm. Rate 62 Chest x-ray film personally reviewed by me-lor grace. Some venous prominence. Left pleural effusion. Previous labs: BUN 44 creatinine 2.06 on 10/24/2021 Assessment and plan: -Acute on chronic congestive heart failure exacerbation from diastolic dysfunction EF 55-60%: Improving Lasix drip 10 mg an hour-changed to IV Lasix 40 mg every 12. Fluid restriction. Strict I's and O's. Zaroxolyn 5 mg a day -Acute kidney injury possibly a component of cardiorenal syndrome: Some improvement Follow renal function closely -Parastomal hernia, but no obstruction Doing well with abdominal binder. Follow with Dr. ramos. No surgical intervention -Small global pericardial effusion. asymptomatic Follow with cardiology -Diabetes mellitus type 2, chronically on insulin. Follow Accu-Cheks. Levemir 46 units subcu daily at bedtime. -Essential hypertension Tenormin 50 mg a day. Norvasc 5 mg a daily at bedtime -Chronic right-sided ileostomy Ileostomy care -Hyperuricemia Allopurinol 100 mg a day -Bladder outflow obstruction Flomax 0.4 mg daily -GERD Prilosec 20 mg a day -Hyperlipidemia Lipitor 20 mg a day -Morbid obesity BMI 42.9 Weight loss measures. -Chronic kidney disease stage III with diabetic nephropathy and hypertensive nephrosclerosis Baseline creatinine of 2.06 Lasix IV 40 mg every 12. Zaroxolyn. Increase Levemir to 46 units daily at bedtime. Oral doing better. Discussed with patient and . Hopefully discharge tomorrow.
[2021-11-09 16:38] LABS: Glucose,Whole Blood 258 mg/dL (70-110)
[2021-11-09] MEDS: TAMSULOSIN 0.4 MG CAP.ER.24H PO SCH (17:15)
[2021-11-09 20:06] LABS: Glucose,Whole Blood 325 mg/dL (70-110)
[2021-11-09] MEDS: amLODIPine 5 MG TAB PO SCH (20:25)
[2021-11-09] MEDS ORDERED: INSULIN DETEMIR (LEVEMIR) 100 UNIT/ML SYR SQ SCH (21:00)
[2021-11-10 02:13] LABS: Glucose,Whole Blood 277 mg/dL (70-110)
[2021-11-10 06:10] LABS: Glucose,Whole Blood 204 mg/dL (70-110)
[2021-11-10] MEDS: INSULIN ASPART (NovoLOG) 100 UNIT/ML VIAL SQ SCH ×2 (06:48→12:12)
[2021-11-10] MEDS: atenoloL 50 MG TAB PO SCH (08:15)
[2021-11-10] MEDS: ATORVASTATIN 20 MG TAB PO SCH (08:15)
[2021-11-10] MEDS: FUROSEMIDE 10 MG/ML 4 ML VIAL IV SCH (08:15)
[2021-11-10] MEDS: metOLazone 5 MG TAB PO SCH (08:15)
[2021-11-10] MEDS: ASPIRIN 81 MG PO SCH (08:15)
[2021-11-10] MEDS: allopurinoL 100 MG TAB PO SCH (08:15)
[2021-11-10] MEDS: ENOXAPARIN 40 MG/0.4 ML SYRINGE SQ SCH (08:15)
[2021-11-10] MEDS: PANTOPRAZOLE 40 MG TABLET PO SCH (08:15)
[2021-11-10] MEDS: ESCITALOPRAM 10 MG TAB PO SCH (08:15)
[2021-11-10 08:24] VITALS: TEMP 97.5
[2021-11-10 09:27] LABS: Potassium 4.7 mmol/L (3.5-5.1)
[2021-11-10 11:45] LABS: Glucose,Whole Blood 323 mg/dL (70-110)
[2021-11-10 12:46] VITALS: BP 124/57; PULSE 61; RESP 18
[2021-11-10 13:32] VITALS: BMI 41.6
--- NOTE | 2021-11-10 13:59 | P.PN ---
Subjective Patient is seen for follow-up for acute kidney injury and top of chronic kidney disease. Patient is currently being diuresed. Patient was maintained on Lasix drip. Serum creatinine down to 2.5 from 2.7 yesterday. Patient was started on oxygen via nasal cannula. No significant chest pains or shortness of breath today. Urine output around 1675 mL for 24 hours. Lasix drip discontinued and switch to IV push Lasix 40 mg twice a day. Objective - Vital Signs Vital signs: Vital Signs Temp 97.5 F L 11/10/21 12:00 Pulse 61 11/10/21 12:00 Resp 18 11/10/21 12:00 BP 124/57 11/10/21 12:00 Pulse Ox 92 L 11/10/21 12:00 FiO2 Intake & Output 11/09/21 11/10/21 11/10/21 18:59 06:59 18:59 Intake Total 690 Output Total 200 1225 350 Balance 490 -1225 -350 Weight 117.1 kg 117.1 kg Intake: Oral 690 Output: Urine 200 875 350 Stool 350 Other: Voiding Method Urinal - Exam Awake, comfortable, not in any acute distress Examination of the heart S1 and S2 Examination of the lungs decreased breath sounds at the bases Abdomen is soft obese nontender Examination of the lower extremity shows edema 1+ bilaterally EMT I/99 exam grossly intact - Labs CBC & Chem 7: 11/06/21 07:27 11/10/21 07:54 Labs: Abnormal Lab Results - Last 24 Hours (Table) 11/09/21 11/09/21 11/10/21 Range/Units 16:31 20:04 02:11 Sodium (137-145) mmol/L BUN (9-20) mg/dL Creatinine (0.66-1.25) mg/dL Glucose (74-99) mg/dL POC Glucose (mg/dL) 258 H 325 H 277 H (70-110) mg/dL 11/10/21 11/10/21 11/10/21 Range/Units 06:08 07:54 11:43 Sodium 135 L (137-145) mmol/L BUN 82 H (9-20) mg/dL Creatinine 2.15 H (0.66-1.25) mg/dL Glucose 173 H (74-99) mg/dL POC Glucose (mg/dL) 204 H 323 H (70-110) mg/dL Assessment and Plan Assessment: 1. Acute kidney injury secondary to cardiorenal syndrome, ATN. No evidence of obstruction on CAT scan. UA positive for trace protein. 2. Chronic kidney disease stage IIIB with baseline creatinine 1.5-2 mg/dL secondary to diabetic kidney disease and nephrosclerosis 3. Volume overload with pleural effusion and pericardial effusion currently being diuresed 4. Acute on chronic diastolic CHF 5. Metabolic acidosis associated with acute kidney injury, improved Plan: Can switch to oral diuretics and patient can be discharged today. He was taking Demadex 40 mg daily prior to admission. Patient will need slightly increased dose of 40 in the morning and 20 in the afternoon Follow-up as outpatient for CKD
--- NOTE | 2021-11-10 23:13 | P.DS ---
Providers Date of admission: 11/05/21 21:44 Expected date of discharge: 11/10/21 Attending physician: Jamaal Shea Consults: 11/05/21 22:02 Consult Physician Routine Consulting Provider: Kalina Ramos Consult Reason/Comments: Abdominal pain secondary to abdominal wall hernia Do you want consulting provider notified?: Yes Consult Physician Urgent Consulting Provider: Yobany Bales Consult Reason/Comments: Pericardial effusion Do you want consulting provider notified?: Yes 11/06/21 15:39 Consult Physician Routine Consulting Provider: Dave Guerin Consult Reason/Comments: AK I Do you want consulting provider notified?: Yes Primary care physician: [facility] Course: Chief Complaint: Short of breath This is a very pleasant 70-year-old patient of Dr. Dennis. Chronic stable medical conditions include diabetes, GERD, hyperlipidemia, essential hypertension, colostomy, CK D. In September of this year admitted with CHF exacerbation. Patient now presents with increasing shortness of breath. Some edema. Some orthopnea. No fever no chills. Patient is also complaining of pain in the abdominal wall hernia. With any activity. Ileostomy is working fine. No change in bowel pattern. Admitted with acute on chronic CHF exacerbation. Started on IV Lasix drip. November 07: Remains a Lasix drip 10 mg an hour. Didn't make urine. Some worsening of creatinine. Breathing slightly better. Lloyd wrap ordered. November 08: Remains a Lasix drip. Not too much of urine output. Breathing much better. Patient questions about abdominal binder. To be used above his ileostomy. We'll see how that does. We'll discuss with nephrology to see patient imitations to by mouth diuretics. November 09: Patient on IV Lasix 40 mg every 12. Edema significantly gone down. Breathing better. Using abdominal binder. Working well. Oral intake fair. Discussed with patient and . November 10: Patient doing well. Discussed with the patient. Abdominal pain controlled. This binder use discussed. Fluid restriction 2000 mL a day. Patient to follow-up with nephrology. Questions answered. Discussion and discharge planning more than 35 minutes. Past medical history to include: Diabetes, GERD, hyperlipidemia, hypertension, ulcerative colitis with total colectomy and removal of rectum, 22 years ago, prostate cancer treated with radiation treatment. 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 No smoking no alcohol. Family history: Lung cancer Physical examination: VITAL SIGNS: 97.5, 61, 18, 1 24 x 57, 92% room air GENERAL: Reclining bed, comfortable EYES: Pupils equal. Conjunctiva normal. HEENT: External appearance of nose and ears normal, oral cavity grossly normal. NECK: JVD unable to assess; masses not palpable. HEART: First and second heart sounds are normal; Lloyd wraps, edema decreased LUNGS: Respiratory rate normal; decreased breath sounds ABDOMEN: Soft, no tenderness, liver spleen not palpable, no masses palpable. Right-sided ileostomy. PSYCH: Alert and oriented x3; mood and affect normal. MUSCULOSKELETAL:No Clubbing/cyanosis;muscles-grossly intact INVESTIGATIONS, reviewed in the clinical context: November 10: Potassium 4.7 creatinine 2.15 November 06: White count 9.7 hemoglobin 10.2 platelets 327 potassium 5.2 BUN 61 creatinine 2.37 2-D echocardiogram: EF 55-60% Admission labs: Computed tomography scan abdomen and pelvis without contrast: Significant pancreatic atrophy. Large parastomal hernia with no bowel obstruction. Right- sided ileostomy. Bilateral pleural effusion and pericardial effusion. Troponin I: Negative White count 15.3 hemoglobin 10.2 platelets 420 potassium 5.4 and 55 creatinine 2.28. Amylase lipase normal COVID 19: Not detected EKG tracing personally reviewed by me-normal sinus rhythm. Rate 62 Chest x-ray film personally reviewed by me-lro grace. Some venous prominence. Left pleural effusion. Previous labs: BUN 44 creatinine 2.06 on 10/24/2021 Assessment and plan: -Acute on chronic congestive heart failure exacerbation from diastolic dysfunction EF 55-60%: Improving Lasix drip 10 mg an hour-changed to IV Lasix 40 mg every 12. Fluid restriction. Strict I's and O's. Zaroxolyn 5 mg a day. Discharged on Demadex 40 mg a day. Some restriction 2000 mL a day. -Acute kidney injury possibly a component of cardiorenal syndrome: improvement Follow renal function closely -Parastomal hernia, but no obstruction Doing well with abdominal binder. Follow with Dr. ramos. No surgical intervention -Small global pericardial effusion. asymptomatic Follow with cardiology -Diabetes mellitus type 2, chronically on insulin. Follow Accu-Cheks. Levemir 46 units subcu daily at bedtime. -Essential hypertension Tenormin 50 mg a day. Norvasc 5 mg a daily at bedtime -Chronic right-sided ileostomy Ileostomy care -Hyperuricemia Allopurinol 100 mg a day -Bladder outflow obstruction Flomax 0.4 mg daily -GERD Prilosec 20 mg a day -Hyperlipidemia Lipitor 20 mg a day -Morbid obesity BMI 42.9 Weight loss measures. -Chronic kidney disease stage III with diabetic nephropathy and hypertensive nephrosclerosis Baseline creatinine of 2.06 Disposition: Home Patient Condition at Discharge: Stable Plan - Discharge Summary Discharge Rx Participant: No New Discharge Prescriptions: Continue Insulin Glargine,Hum.rec.anlog [Toujeo Solostar] 50 units SQ HS Omeprazole [PriLOSEC] 20 mg PO DAILY Atorvastatin Calcium [Lipitor] 20 mg PO DAILY atenoloL [Tenormin] 50 mg PO DAILY Insulin Aspart [NovoLOG Flexpen] See Protocol SQ AC-TID Aspirin EC [Ecotrin Low Dose] 81 mg PO DAILY Ergocalciferol (Vitamin D2) [Drisdol (50,000 Iu)] 1,250 mcg PO Q14D Tamsulosin HCl [Flomax] 0.4 mg PO PC-SUPPER allopurinoL [Zyloprim] 100 mg PO DAILY Escitalopram [Lexapro] 10 mg PO DAILY Melatonin 3 mg PO HS PRN tab PRN Reason: Insomnia Dapagliflozin Propanediol [Farxiga] 10 mg PO DAILY Torsemide [Demadex] 40 mg PO DAILY 30 Days #30 tab Changed amLODIPine [Norvasc] 5 mg PO HS #0 Discharge Medication List Atorvastatin Calcium [Lipitor] 20 mg PO DAILY 12/31/14 [History] Insulin Glargine,Hum.rec.anlog [Toujeo Solostar] 50 units SQ HS 12/31/14 [History] Omeprazole [PriLOSEC] 20 mg PO DAILY 12/31/14 [History] atenoloL [Tenormin] 50 mg PO DAILY 12/31/14 [History] Aspirin EC [Ecotrin Low Dose] 81 mg PO DAILY 11/08/18 [History] Insulin Aspart [NovoLOG Flexpen] See Protocol SQ AC-TID 11/08/18 [History] Ergocalciferol (Vitamin D2) [Drisdol (50,000 Iu)] 1,250 mcg PO Q14D 06/25/20 [History] Tamsulosin HCl [Flomax] 0.4 mg PO PC-SUPPER 06/25/20 [History] Escitalopram [Lexapro] 10 mg PO DAILY 10/21/21 [History] allopurinoL [Zyloprim] 100 mg PO DAILY 10/21/21 [History] Melatonin 3 mg PO HS PRN tab 10/24/21 [Rx] Dapagliflozin Propanediol [Farxiga] 10 mg PO DAILY 11/05/21 [History] Torsemide [Demadex] 40 mg PO DAILY 30 Days #30 tab 11/10/21 [Rx] amLODIPine [Norvasc] 5 mg PO HS #0 11/10/21 [Rx] Follow up Appointment(s)/Referral(s): Nas Dennis DO [Primary Care Provider] - 1-2 days (keep prior scheduled appointment. ) Yobany Bales MD [STAFF PHYSICIAN] - 11/23/21 11:30 am Dave Guerin DO [STAFF PHYSICIAN] - 11/26/21 10:00 am Patient Instructions/Handouts: Heart Failure (DC), Abdominal Pain (ED), Abdominal Binder (DC) Activity/Diet/Wound Care/Special Instructions: fluid restrict 2000 cc/day Discharge Disposition: HOME SELF-CARE
== END 2021-11-10 13:59 | disposition home or self-care (01) | DRG 291 ==
LOC: EC 16:30 → 3SCARD 21:44
PROVIDERS: ADMIT Hospitalist; ATTEND Hospitalist
DX: I13.0 Hypertensive heart and chronic kidney disease with heart failure and stage 1 through stage 4 chronic kidney disease, or unspecified chronic kidney disease (principal); I50.33 Acute on chronic diastolic (congestive) heart failure; N17.0 Acute kidney failure with tubular necrosis; I31.3 Pericardial effusion (noninflammatory); Z68.41 Body mass index [BMI] 40.0-44.9, adult; E87.2 Acidosis; Z20.822 Contact with and (suspected) exposure to COVID-19; K43.5 Parastomal hernia without obstruction or gangrene; E11.22 Type 2 diabetes mellitus with diabetic chronic kidney disease; N18.32 Chronic kidney disease, stage 3b; E66.01 Morbid (severe) obesity due to excess calories; E79.0 Hyperuricemia without signs of inflammatory arthritis and tophaceous disease; N32.0 Bladder-neck obstruction; I34.0 Nonrheumatic mitral (valve) insufficiency; K21.9 Gastro-esophageal reflux disease without esophagitis; E78.5 Hyperlipidemia, unspecified; G47.30 Sleep apnea, unspecified; M19.90 Unspecified osteoarthritis, unspecified site; Z96.643 Presence of artificial hip joint, bilateral; Z90.49 Acquired absence of other specified parts of digestive tract; Z93.3 Colostomy status; Z88.6 Allergy status to analgesic agent; Z79.899 Other long term (current) drug therapy; Z92.21 Personal history of antineoplastic chemotherapy; Z92.3 Personal history of irradiation; Z87.19 Personal history of other diseases of the digestive system; Z98.42 Cataract extraction status, left eye; Z98.41 Cataract extraction status, right eye; Z86.14 Personal history of Methicillin resistant Staphylococcus aureus infection; Z79.82 Long term (current) use of aspirin; Z85.46 Personal history of malignant neoplasm of prostate; Z80.1 Family history of malignant neoplasm of trachea, bronchus and lung
CPT/HCPCS: 36415; 71046; 74176; 80048; 80053; 81003; 82150; 83605; 83690; 83735; 83880; 84100; 84484; 85025; 85610; 85652; 85730; 86038; 86039; 86140; 87635; 93005; 93306; 94760; 96374; 96375; 99285

== ENCOUNTER 2023-07-04 05:44 | Day surgery (SDC) | payer MEDICARE ==
[2023-06-30 12:53] VITALS: BMI 41.9
[2023-07-04] MEDS ORDERED: ALPRAZolam 0.25 MG TAB PO PRN (05:51)
[2023-07-04] MEDS ORDERED: NITROGLYCERIN SL TABS 0.4 MG TAB SUBLINGUAL PRN (05:51)
[2023-07-04 06:21] LABS: Glucose,Whole Blood 110 mg/dL (70-110)
[2023-07-04] MEDS: ALPRAZolam 0.5 MG TAB PO PRN (06:25)
[2023-07-04] MEDS: SODIUM CHLORIDE 0.9% 1,000 ML in EMPTY BAG 1 BAG IV SCH (06:27)
[2023-07-04 06:48] VITALS: RESP 18; TEMP 98.5
[2023-07-04] MEDS ORDERED: VERAPAMIL 2.5 MG/ML 2 ML AMP ONE (07:14)
[2023-07-04] MEDS ORDERED: LIDOCAINE 1% INJ 10MG/ML (20 ML MDV) ONE (07:14)
[2023-07-04] MEDS: MIDAZOLAM 2 MG/2 ML VIAL IVP ONE (07:44)
[2023-07-04] MEDS: LIDOCAINE 1% INJ 10MG/ML (20 ML MDV) SQ ONE (07:46)
[2023-07-04] MEDS ORDERED: HEPARIN SODIUM 1,000 UN/ML (10ML VL) ONE (07:49)
[2023-07-04] MEDS: VERAPAMIL SYRINGE (5 MG/10 ML) INTRAARTER ONE (07:51)
[2023-07-04] MEDS: HEPARIN SODIUM 1,000 UN/ML (10ML VL) IVP ONE ×2 (07:51→08:10)
[2023-07-04] MEDS ORDERED: TICAGRELOR 90 MG TAB ONE (08:06)
[2023-07-04] MEDS: IOPAMIDOL-370 200ML BTL INJ ONE (08:19)
[2023-07-04] MEDS ORDERED: RX INFO: IV CONTRAST WAS GIVEN 1 EACH MISC MISCELLANE PRN (08:35)
--- NOTE | 2023-07-04 08:42 | P.PCN ---
Date of Procedure: 07/04/23 Operative Findings: CARDIAC CATHETERIZATION PERFORMING PHYSICIAN: Yobany Bales MD, RPVI PROCEDURE PERFORMED: 1. Selective right and left coronary angiogram 2. IFR of the LAD and first obtuse marginal branch 3. Ultrasound-guided access of the right radial artery INDICATION: Shortness of breath in this 72-year-old gentleman who has diabetes and hypertension and dyslipidemia and underwent myocardial perfusion imaging stress test came in to be abnormal showing an anterior ischemia COMPLICATION: None APPROACH: Right radial artery LEVEL OF SEDATION: Moderate with a sedation length of 30 minutes PROCEDURE DESCRIPTION: After obtaining an informed consent, the patient was brought to cardiac solder making laborer. Local anesthesia was performed using lidocaine subcutaneously. The right radial artery was cannulated using Seldinger technique, the guidewire passed easily, following that we advanced a 5-Ghanaian sheath dilator assembly, the wire and dilator were removed and sheath was flushed. Following that, 2 mg of verapamil along with 5000 unit heparin were given. Selective right and left coronary angiogram using a 6-Ghanaian JR4 and JL 3.5 catheters. Following that and after zeroing the Doppler wire and equalized in between the Doppler wire and guiding catheter the left main was engaged using JL 3.5 guiding catheter. Then I did wire the LAD. We did an IFR and that came in to be ischemic at 0.63 Subsequently we decided to IFR the OM1. We did that and that came in to be at0.72 The procedure was completed there was no complication. SELECTIVE CORONARY ANGIOGRAM: The right coronary artery: Medium caliber vessel nondominant vessel with mild disease only Left main: Is angiographically normal The left circumflex: Large-caliber vessel and a dominant vessel. Gives rise into an OM1 which has a lesion appears to be in the range of 70% The left anterior descending artery: Large-caliber vessel. The LAD proximally has a lesion appears to be in the range of 80 to 90%. The lesion documented to be flow-limiting by Doppler wire. The LAD gives rise into a diagonal branch which has a critical lesion CONCLUSION: 1. Severe disease involving the proximal LAD and critical disease involving the first diagonal branch 2. Severe disease involving the first obtuse marginal branch of the left circumflex POSTPROCEDURE MANAGEMENT: Given the above anatomy and giving that the patient maximum contrast is only at 20 cc I decided to stop at this point. Discussed with the patient the options including surgical versus percutaneous revascularization
[2023-07-04] MEDS ORDERED: SODIUM CHLORIDE 0.9% 1,000 ML IV SCH (08:45)
[2023-07-04] MEDS: SODIUM CHLORIDE 0.9% 500 ML 500 ML IV ONE (12:30)
[2023-07-04 13:51] VITALS: BP 148/66; PULSE 48
== END 2023-07-04 14:12 | disposition home or self-care (01) ==
LOC: CATHCVL 05:44
PROVIDERS: ATTEND Internal Medicine Interventional Cardiology
DX: I73.9 Peripheral vascular disease, unspecified (principal); I11.0 Hypertensive heart disease with heart failure; I50.32 Chronic diastolic (congestive) heart failure; I10 Essential (primary) hypertension; E11.9 Type 2 diabetes mellitus without complications; E78.5 Hyperlipidemia, unspecified; Z79.82 Long term (current) use of aspirin; Z79.899 Other long term (current) drug therapy
CPT/HCPCS: 93454; 93799; 76937; C1887; C1769 ×2; C1894; J2250; J2001; J1644; Q9967

== ENCOUNTER 2023-08-01 05:38 | Day surgery (SDC) | payer MEDICARE ==
[2023-08-01] MEDS ORDERED: HEPARIN SODIUM,PORCINE (1 ML) 2,500 UNIT in SODIUM CHLORIDE 0.9% 250 ML IRRIGATION PRN (05:55)
[2023-08-01] MEDS ORDERED: NITROGLYCERIN SL TABS 0.4 MG TAB SUBLINGUAL PRN ×2 (05:55→09:04)
[2023-08-01] MEDS ORDERED: HEPARIN SODIUM,PORCINE 10,000 UNIT in SODIUM CHLORIDE 0.9% 1,000 ML IRRIGATION PRN (05:55)
[2023-08-01] MEDS ORDERED: ALPRAZolam 0.25 MG TAB PO PRN (05:55)
[2023-08-01] MEDS: SODIUM CHLORIDE 0.9% 1,000 ML IV ONE (06:59)
[2023-08-01] MEDS: SODIUM CHLORIDE 0.9% 1,000 ML in EMPTY BAG 1 BAG IV SCH ×2 (07:02→09:31)
[2023-08-01] MEDS: ASPIRIN 325 MG TAB PO STA (07:02)
[2023-08-01] MEDS: ALPRAZolam 0.5 MG TAB PO PRN (07:02)
[2023-08-01] MEDS ORDERED: LIDOCAINE 1% INJ 10MG/ML (20 ML MDV) ONE (07:12)
[2023-08-01] MEDS ORDERED: HEPARIN SODIUM 1,000 UN/ML (10ML VL) ONE (07:12)
[2023-08-01] MEDS ORDERED: VERAPAMIL 2.5 MG/ML 2 ML AMP ONE (07:12)
[2023-08-01] MEDS ORDERED: TICAGRELOR 90 MG TAB ONE (07:55)
[2023-08-01] MEDS: LIDOCAINE 1% INJ 10MG/ML (20 ML MDV) SQ ONE (07:56)
[2023-08-01] MEDS: MIDAZOLAM 2 MG/2 ML VIAL IVP ONE (07:56)
[2023-08-01] MEDS ORDERED: fentaNYL (PF) 50 MCG/ML 2 ML AMP ONE (07:57)
[2023-08-01] MEDS: VERAPAMIL SYRINGE (5 MG/10 ML) INTRAARTER ONE (07:58)
[2023-08-01] MEDS: fentaNYL (PF) 50 MCG/ML 2 ML AMP IVP ONE (07:58)
[2023-08-01] MEDS: HEPARIN SODIUM 1,000 UN/ML (10ML VL) IVP ONE (07:59)
[2023-08-01] MEDS: TICAGRELOR 90 MG TAB PO ONE (08:00)
[2023-08-01] MEDS ORDERED: MORPHINE SULFATE 4 MG/ML SYRINGE ONE (08:27)
[2023-08-01] MEDS: MORPHINE SULFATE 4 MG/ML SYRINGE IVP ONE (08:29)
[2023-08-01] MEDS: IOPAMIDOL-370 100ML BTL INJ ONE (08:54)
[2023-08-01] MEDS: NITROGLYCERIN 1000MCG/10ML SYRINGE INTRACORON ONE (08:54)
--- NOTE | 2023-08-01 09:02 | P.PCN ---
Date of Procedure: 08/01/23 Operative Findings: PERCUTANEOUS CORONARY INTERVENTION Performing physician Yobany Bales M.D. Procedure Performed: 1. Successful stenting of the proximal LAD using 3.5 x 18 mm Xience drug-eluting stent with an excellent angiographic results. 2. Successful stending of the second diagonal branch using 2.5 x 18 mm Xience drug-eluting stent with an excellent angiographic result. 3. Adjunctive use of intravascular imaging and lithotripsy balloon Indication: This is a 72-year-old gentleman who was diagnosed recently with severe symptomatic coronary artery disease and he did not want to undergo through open heart surgery. Because of that he was brought to undergo PCI of the LAD and diagonal Approach: Right radial artery Complications: None Level of Sedation: Moderate with a sedation length of 48 minutes Procedure Discussion: After obtaining informed consent the patient was brought to the cardiac Crop Insurance Claims Adjuster. The right radial artery was cannulated using micropuncture technique under ultrasound guidance and micropuncture wire passed easily then I placed a 6 Yi sheath. I gave the patient 2 mg of verapamil intra-arterial and 6000's of heparin IV. I did engage the left main using JL 3.5 guiding catheter. I did wired the LAD using a run-through wire and the second diagonal branch using another run-through wire. Intravascular ultrasound of the LAD was performed and showed a calcified LAD with a diameter around 3.5 mm. I did initially predilatation of the diagonal branch using 2.0 mm balloon before I deployed 2.5 x 18 mm stent. Then after that for the LAD I did predilatation using lithotripsy balloon which was 3 mm balloon and subsequently Cutting Balloon using 3.5 mm balloon. Finally I deployed 3.5 x 18 mm stent which was postdilated using 3.75 mm noncompliant balloon. Final angiogram showed excellent angiographic results with NORIS-3 flow and the procedure was completed with no complication Postprocedure Management: 1. Dual antiplatelet therapy 2. Aggressive cholesterol control 3. Risk factors modification
[2023-08-01] MEDS ORDERED: RX INFO: IV CONTRAST WAS GIVEN 1 EACH MISC MISCELLANE PRN (09:04)
[2023-08-01] MEDS ORDERED: ATROPINE SULFATE 0.1 MG/ML 10ML SYRINGE IV PRN (09:04)
[2023-08-01] MEDS: MAG HYDROX/AL HYDROX/SIMETH 30 ML CUP PO PRN (10:37)
[2023-08-01] MEDS: ONDANSETRON 4 MG/2 ML VIAL IVP PRN (10:38)
[2023-08-01] MEDS: ACETAMINOPHEN TAB 325 MG TAB PO PRN (10:42)
[2023-08-01] MEDS: TORSEMIDE 20 MG TAB PO SCH (10:42)
[2023-08-01 11:30] LABS: Glucose,Whole Blood 211 mg/dL (70-110)
[2023-08-01 12:53] VITALS: BMI 42.2
[2023-08-01 17:26] LABS: Glucose,Whole Blood 287 mg/dL (70-110)
[2023-08-01] MEDS: INSULIN ASPART (NovoLOG) 100 UNIT/ML VIAL SQ SCH (17:37)
[2023-08-01 20:49] LABS: Glucose,Whole Blood 262 mg/dL (70-110)
[2023-08-01] MEDS: TICAGRELOR 90 MG TAB PO SCH (21:10)
[2023-08-01] MEDS: INSULIN DETEMIR (LEVEMIR) 100 UNIT/ML SYR SQ SCH (21:10)
[2023-08-01] MEDS: amLODIPine 2.5 MG TAB PO SCH (21:10)
[2023-08-01] MEDS: GABAPENTIN 100 MG CAP PO SCH (21:10)
[2023-08-01] MEDS: ZOLPIDEM 5 MG TAB PO PRN (21:10)
[2023-08-02 06:06] LABS: Glucose,Whole Blood 101 mg/dL (70-110)
[2023-08-02 06:45] LABS: Basophils % (A) 1 %; Eosinophils # (A) 0.4 k/uL (0-0.7); Eosinophils % (A) 5 %; HGB 12.4 gm/dL (13.0-17.5); Lymphocytes # (A) 0.7 k/uL (1.0-4.8); Lymphocytes % (A) 9 %; MCH 30.4 pg (25.0-35.0); MCHC 31.8 g/dL (31.0-37.0); MCV 95.6 fL (80.0-100.0); Mean Platelet Volume 7.6; Monocytes # (A) 0.6 k/uL (0-1.0); Monocytes % (A) 7 %; Neutrophils # (A) 5.7 k/uL (1.3-7.7); Neutrophils % (A) 77 %; Platelet Count 199 k/uL (150-450); RBC 4.08 m/uL (4.30-5.90); WBC 7.5 k/uL (3.8-10.6)
[2023-08-02 06:55] LABS: African American GFR (CKD) 61 (>60 ml/min/1.73 sqM); Anion Gap 5 mmol/L; Blood Urea Nitrogen 32 mg/dL (9-20); Carbon Dioxide 29 mmol/L (22-30); Chloride 107 mmol/L (98-107); Glucose 90 mg/dL (74-99); Non-African American GFR(CKD) 53 (>60 ml/min/1.73 sqM); Potassium 3.8 mmol/L (3.5-5.1); Sodium 141 mmol/L (137-145)
[2023-08-02 06:58] LABS: African American GFR (CKD) 59 (>60 ml/min/1.73 sqM); Non-African American GFR(CKD) 51 (>60 ml/min/1.73 sqM)
[2023-08-02 07:54] VITALS: BP 178/73; PULSE 59; RESP 17; TEMP 97.8
[2023-08-02] MEDS ORDERED: TORSEMIDE 20 MG TAB PO SCH (09:00)
[2023-08-02] MEDS: ATORVASTATIN 40 MG TAB PO SCH (09:46)
[2023-08-02] MEDS: ERGOCALCIFEROL 1,250 MCG (50,000 IU) CAPSULE PO SCH (09:46)
[2023-08-02] MEDS: ASPIRIN 81 MG PO SCH (09:46)
[2023-08-02] MEDS: TORSEMIDE 20 MG TAB PO SCH (09:46)
[2023-08-02] MEDS: atenoloL 50 MG TAB PO SCH (09:47)
[2023-08-02] MEDS: allopurinoL 100 MG TAB PO SCH (09:47)
[2023-08-02] MEDS: ESCITALOPRAM 10 MG TAB PO SCH (09:47)
[2023-08-02] MEDS: PANTOPRAZOLE 40 MG TABLET PO SCH (09:47)
[2023-08-02] MEDS: DAPAGLIFLOZIN PROPANEDIOL 10 MG TABLET PO SCH (09:47)
--- NOTE | 2023-08-02 10:06 | P.DS ---
Providers Attending physician: Yobany Bales Consults: 08/01/23 09:04 Consult Physician Routine Consulting Provider: [facility] Consult Reason/Comments: Post Interventional Patient Do you want consulting provider notified?: Already Contacted Primary care physician: [facility] Course: The patient is a 72-year-old gentleman who underwent yesterday successful stenting of the left anterior descending artery and diagonal branch with an excellent angiographic results He was seen and evaluated this morning. He is asymptomatic. The right radial site is soft and nontender with no bruises. He is hemodynamically stable beside the pressure being elevated and for that reason I am going to increase the dose of amlodipine to 5 mg p.o. daily from 2.5 mg p.o. daily. The importance of taking dual antiplatelet therapy was discussed with him and his in details and the consequences including heart attack and was also discussed with him in details and he was in full understanding and agreement. Overall the physical examination is unremarkable beside elevated blood pressure. Otherwise he has regular rate and rhythm with clear breathing sounds bilaterally. The patient is going to be discharged home and he will be seen in the office in a week from now. Plan - Discharge Summary Discharge Rx Participant: Yes New Discharge Prescriptions: New amLODIPine [Norvasc] 5 mg PO DAILY #90 tab Ticagrelor [Brilinta] 90 mg PO BID #180 tab Continue Insulin Glargine,Hum.rec.anlog [Toujeo Solostar] 50 units SQ HS Omeprazole [PriLOSEC] 20 mg PO Q2D atenoloL [Tenormin] 50 mg PO DAILY Aspirin EC [Ecotrin Low Dose] 81 mg PO DAILY Ergocalciferol (Vitamin D2) [Drisdol (50,000 Iu)] 1,250 mcg PO WE allopurinoL [Zyloprim] 200 mg PO DAILY Torsemide [Demadex] 20 mg PO Q2D Gabapentin [Neurontin] 100 mg PO HS Insulin Aspart [NovoLOG] 30 - 40 units SQ TID-W/MEALS PRN PRN Reason: scale Torsemide [Demadex] 30 mg PO Q2D Acetaminophen [Tylenol Arthritis] 650 mg PO DAILY PRN PRN Reason: Pain Atorvastatin [Lipitor] 40 mg PO DAILY Escitalopram [Lexapro] 10 mg PO DAILY Dapagliflozin Propanediol [Farxiga] 10 mg PO DAILY Discontinued amLODIPine [Norvasc] 2.5 mg PO HS Discharge Medication List Insulin Glargine,Hum.rec.anlog [Toujeo Solostar] 50 units SQ HS 12/31/14 [History] Omeprazole [PriLOSEC] 20 mg PO Q2D 12/31/14 [History] atenoloL [Tenormin] 50 mg PO DAILY 12/31/14 [History] Aspirin EC [Ecotrin Low Dose] 81 mg PO DAILY 11/08/18 [History] Ergocalciferol (Vitamin D2) [Drisdol (50,000 Iu)] 1,250 mcg PO WE 06/25/20 [History] Escitalopram [Lexapro] 10 mg PO DAILY 10/21/21 [History] allopurinoL [Zyloprim] 200 mg PO DAILY 10/21/21 [History] Dapagliflozin Propanediol [Farxiga] 10 mg PO DAILY 11/05/21 [History] Acetaminophen [Tylenol Arthritis] 650 mg PO DAILY PRN 06/30/23 [History] Gabapentin [Neurontin] 100 mg PO HS 06/30/23 [History] Insulin Aspart [NovoLOG] 30 - 40 units SQ TID-W/MEALS PRN 06/30/23 [History] Torsemide [Demadex] 20 mg PO Q2D 06/30/23 [History] Torsemide [Demadex] 30 mg PO Q2D 06/30/23 [History] Atorvastatin [Lipitor] 40 mg PO DAILY 07/25/23 [History] Ticagrelor [Brilinta] 90 mg PO BID #180 tab 08/02/23 [Rx] amLODIPine [Norvasc] 5 mg PO DAILY #90 tab 08/02/23 [Rx] Follow up Appointment(s)/Referral(s): Yobany Bales MD [STAFF PHYSICIAN] - 1 Week (Office will call with appointment time and date)
== END 2023-08-02 10:57 | disposition home or self-care (01) ==
LOC: CATHCVL 05:38 → 6NMEDSUR 08:55 → CATHCVL 08-02 10:57
PROVIDERS: ATTEND Internal Medicine Interventional Cardiology
DX: I25.10 Atherosclerotic heart disease of native coronary artery without angina pectoris (principal); E11.9 Type 2 diabetes mellitus without complications; E78.5 Hyperlipidemia, unspecified; I73.9 Peripheral vascular disease, unspecified; I13.0 Hypertensive heart and chronic kidney disease with heart failure and stage 1 through stage 4 chronic kidney disease, or unspecified chronic kidney disease; N18.9 Chronic kidney disease, unspecified; E11.22 Type 2 diabetes mellitus with diabetic chronic kidney disease; Z79.899 Other long term (current) drug therapy; Z79.82 Long term (current) use of aspirin; Z88.6 Allergy status to analgesic agent; Z95.5 Presence of coronary angioplasty implant and graft; Z79.84 Long term (current) use of oral hypoglycemic drugs; Z79.02 Long term (current) use of antithrombotics/antiplatelets
CPT/HCPCS: 92978; 92972; 76937; 80048; 82565; 85025; C9600; C9601; C1887; C1769 ×3; C1894; C1725 ×3; C1753; C1874 ×2; J2250; J2270; J2405; J2001; J3010; J1644; Q9967; J2305

== ENCOUNTER 2023-08-16 16:26 | Inpatient (IN) | payer MEDICARE ==
[2023-08-16 17:56] LABS: Anisocytosis Slight; Basophils # (A) 0.2 k/uL (0-0.2); Basophils % (A) 2 %; Eosinophils # (A) 0.6 k/uL (0-0.7); Eosinophils % (A) 6 %; HCT 42.4 % (39.0-53.0); HGB 13.4 gm/dL (13.0-17.5); Lymphocytes # (A) 0.8 k/uL (1.0-4.8); Lymphocytes % (A) 8 %; MCH 30.1 pg (25.0-35.0); MCHC 31.6 g/dL (31.0-37.0); MCV 95.3 fL (80.0-100.0); Mean Platelet Volume 7.6; Monocytes # (A) 0.5 k/uL (0-1.0); Monocytes % (A) 5 %; Neutrophils # (A) 7.3 k/uL (1.3-7.7); Neutrophils % (A) 78 %; Platelet Count 284 k/uL (150-450); RBC 4.45 m/uL (4.30-5.90); RDW 16.5 % (11.5-15.5); WBC 9.4 k/uL (3.8-10.6)
[2023-08-16 18:10] LABS: INR 0.8 (<1.2); Partial Thromboplastin Time 23.4 sec (22.0-30.0); Prothrombin Time 9.6 sec (10.0-12.5)
[2023-08-16] MEDS: NITROGLYCERIN OINT 1 INCH/GM PACKET TOPICAL STA (18:13)
[2023-08-16] MEDS: MORPHINE SULFATE 4 MG/ML SYRINGE IVP STA (18:14)
[2023-08-16 18:16] LABS: ALT 18 U/L (4-49); African American GFR (CKD) 47 (>60 ml/min/1.73 sqM); Albumin 4.7 g/dL (3.5-5.0); Anion Gap 14 mmol/L; Blood Urea Nitrogen 34 mg/dL (9-20); Calcium 9.3 mg/dL (8.4-10.2); Carbon Dioxide 21 mmol/L (22-30); Chloride 106 mmol/L (98-107); Glucose 105 mg/dL (74-99); Lipase 29 U/L (23-300); Non-African American GFR(CKD) 41 (>60 ml/min/1.73 sqM); Sodium 141 mmol/L (137-145); Total Bilirubin 0.8 mg/dL (0.2-1.3); Total Protein 8.3 g/dL (6.3-8.2)
[2023-08-16 18:25] LABS: NT-Pro-B-Type Natriuretic Pept 583 pg/mL
[2023-08-16 18:37] LABS: AST 24 U/L (17-59); Potassium 4.2 mmol/L (3.5-5.1)
[2023-08-16 18:38] LABS: Alkaline Phosphatase 116 U/L (38-126); Magnesium 2.3 mg/dL (1.6-2.3)
--- NOTE | 2023-08-16 18:57 | XR ---
EXAMINATION TYPE: XR chest 2V DATE OF EXAM: 08/16/2023 6:40 PM CLINICAL INDICATION:Male, 72 years old with history of Chest Pain; [facility] COMPARISON: Chest radiographs from 11/05/2021. TECHNIQUE: XR chest 2V Frontal and lateral views of the chest. FINDINGS: Lungs/Pleura: Hazy right lower lung airspace opacity. No evidence of pleural effusion. Pulmonary vascularity: Mild pulmonary vascular congestion. Heart/mediastinum: Cardiomediastinal silhouette is prominent in size. Musculoskeletal: No acute osseous pathology. IMPRESSION: Mild cardiomegaly with associated mild pulmonary vascular congestion. May relate to developing heart failure.
--- NOTE | 2023-08-16 19:08 | ED ---
Chest Pain HPI - General Chief Complaint: Chest Pain Stated Complaint: Chest/abd pain, SOB Time Seen by Provider: 08/16/23 16:30 Source: patient Limitations: no limitations - History of Present Illness Initial Comments: 72-year-old male with past medical history of congestive heart failure, coronary disease with stent placement on August 01 who presents emergency department reporting chest pain and shortness of breath. States he has had some worsening lower extremity edema. He takes torsemide daily without any missed doses. He has also been taking his Brilinta since discharge without any missed doses. Symptoms started a few days ago. He also admits to symptom distention in his abdomen. No nausea or vomiting. Patient follows with Dr. Vieyra. Denies fevers or chills. Does admit to a nonproductive cough. No other alleviating, precipitating or modifying factors - Related Data Home Medications Medication Instructions Recorded Confirmed Insulin Glargine,Hum.rec.anlog 50 units SQ HS 12/31/14 08/16/23 [Toujeo Solostar] Omeprazole [PriLOSEC] 20 mg PO Q2D 12/31/14 08/16/23 atenoloL [Tenormin] 50 mg PO DAILY 12/31/14 08/16/23 Aspirin EC [Ecotrin Low Dose] 81 mg PO DAILY 11/08/18 08/16/23 Ergocalciferol (Vitamin D2) 1,250 mcg PO WE 06/25/20 08/16/23 [Drisdol (50,000 Iu)] Escitalopram [Lexapro] 10 mg PO DAILY 10/21/21 08/16/23 allopurinoL [Zyloprim] 200 mg PO DAILY 10/21/21 08/16/23 Dapagliflozin Propanediol [Farxiga] 10 mg PO DAILY 11/05/21 08/16/23 Gabapentin [Neurontin] 100 mg PO HS 06/30/23 08/16/23 Torsemide [Demadex] 30 mg PO Q2D 06/30/23 08/16/23 Atorvastatin [Lipitor] 40 mg PO DAILY 07/25/23 08/16/23 Insulin Aspart [NovoLOG Flexpen] 30 - 40 units SQ AC-TID 08/16/23 08/16/23 Isosorbide Mononitrate ER [Imdur] 30 mg PO DAILY 08/16/23 08/16/23 Torsemide [Demadex] 20 mg PO Q2D 08/16/23 08/16/23 amLODIPine [Norvasc] 2.5 mg PO DAILY 08/16/23 08/16/23 Previous Rx's Medication Instructions Recorded Ticagrelor [Brilinta] 90 mg PO BID #180 tab 08/02/23 Allergies Allergy/AdvReac Type Severity Reaction Status Date / Time ibuprofen [From Motrin] Allergy Anaphylaxis Verified 08/16/23 16:35 Review of Systems ROS Statement: Those systems with pertinent positive or pertinent negative responses have been documented in the HPI. ROS Other: All systems not noted in ROS Statement are negative. Past Medical History Past Medical History: Cancer, Chest Pain / Angina, Diabetes Mellitus, Eye Disorder, GERD/Reflux, Hyperlipidemia, Hypertension, Osteoarthritis (OA), Prostate Disorder, Renal Disease Additional Past Medical History / Comment(s): See Dr Bales's H&P. HX OF ULCERATIVE COLITIS, ileostomy PARASTOMAL HERNIA, PROSTATE CA WITH RADIATION AND CHEMO IN 2020, LOW KIDNEY FUNCTION,Covid Dec 2022, Influenza A Jun 2023, eye condition, unsure of name. History of Any Multi-Drug Resistant Organisms: MRSA Date of last positivie culture/infection: 11/07/14 MDRO Source:: Scalp Past Surgical History: Appendectomy, Bowel Resection Additional Past Surgical History / Comment(s): COLECTOMY, RECTUM REMOVED, ELLIOTT CATARACTS removed, ILEOSTOMY, HERNIA SURGERY. Past Anesthesia/Blood Transfusion Reactions: No Reported Reaction Additional Past Anesthesia/Blood Transfusion Reaction / Comment(s): no problems with prior blood transfusions. Past Psychological History: No Psychological Hx Reported Smoking Status: Unknown if ever smoked Past Alcohol Use History: None Reported Past Drug Use History: None Reported - Past Family History Mother Family Medical History: Cancer Additional Family Medical History / Comment(s): LUNG CANCER. Father Family Medical History: Cancer Additional Family Medical History / Comment(s): MELANOMA/BRAIN CANCER. General Exam Limitations: no limitations General appearance: alert, in no apparent distress Head exam: Present: atraumatic, normocephalic, normal inspection Eye exam: Present: normal appearance, PERRL, EOMI. Absent: scleral icterus, conjunctival injection, periorbital swelling ENT exam: Present: normal exam, mucous membranes moist Neck exam: Present: normal inspection. Absent: tenderness, meningismus, lymphadenopathy Respiratory exam: Present: normal lung sounds bilaterally. Absent: respiratory distress, wheezes, rales, rhonchi, stridor Cardiovascular Exam: Present: regular rate, normal rhythm, normal heart sounds. Absent: systolic murmur, diastolic murmur, rubs, gallop, clicks GI/Abdominal exam: Present: soft, normal bowel sounds. Absent: distended, tenderness, guarding, rebound, rigid Extremities exam: Present: normal inspection, full ROM, normal capillary refill. Absent: tenderness, pedal edema, joint swelling, calf tenderness Back exam: Present: normal inspection Neurological exam: Present: alert, oriented X3, CN II-XII intact Psychiatric exam: Present: normal affect, normal mood Skin exam: Present: warm, dry, intact, normal color. Absent: rash Course Vital Signs 08/16/23 08/16/23 08/16/23 16:30 18:12 20:49 Temperature 97.7 F Pulse Rate 52 L 52 L 50 L Respiratory 20 18 18 Rate Blood Pressure 153/65 164/71 156/65 O2 Sat by Pulse 99 97 98 Oximetry 08/17/23 08/17/23 08/17/23 00:00 03:56 06:59 Temperature Pulse Rate 50 L 56 L 52 L Respiratory 18 18 18 Rate Blood Pressure 186/82 158/60 162/72 O2 Sat by Pulse 95 96 95 Oximetry 08/17/23 13:03 Temperature 97.6 F Pulse Rate 51 L Respiratory 16 Rate Blood Pressure 143/59 O2 Sat by Pulse 96 Oximetry Chest Pain MDM - MDM Was pt. sent in by a medical professional or institution (, PA, [facility], urgent care, hospital, or [facility]...) When possible be specific @ -No Did you speak to anyone other than the patient for history (EMS, parent, family, police, friend...)? What history was obtained from this source @ -No Did you review nursing and triage notes (agree or disagree)? Why? @ -I reviewed and agree with nursing and triage notes Were old charts reviewed (outside hosp., previous admission, EMS record, old EKG, old radiological studies, urgent care reports/EKG's, [facility] records)? Report findings @ -I reviewed the patient's heart cath from July 31 Differential Diagnosis (chest pain, altered mental status, abdominal pain women, abdominal pain men, vaginal bleeding, weakness, fever, dyspnea, syncope, headache, dizziness, GI bleed, back pain, seizure, CVA, palpatations, mental health, musculoskeletal)? @ -Differential Chest Pain: Stable Angina, Unstable Angina, STEMI, NSTEMI Aortic Dissection, Pneumothorax, Musculoskeletal, Esophageal Spasm GERD, Cholecystitis, Pancreatitis, Zoster, this is not meant to be an all-inclusive list. EKG interpreted by me (3pts min.). @ -Yes and demonstrates sinus bradycardia with a rate of 53. FL interval 184. QRS 94. QTc of 401. No acute ST segment elevations or depressions. Baseline artifact X-rays interpreted by me (1pt min.). @ -Yes and demonstrates no acute process CT interpreted by me (1pt min.). @ -None done U/S interpreted by me (1pt. min.). @ -None done What testing was considered but not performed or refused? (CT, X-rays, U/S, labs)? Why? @ -None What meds were considered but not given or refused? Why? @ -None Did you discuss the management of the patient with other professionals (professionals i.e. , PA, [facility], lab, RT, psych nurse, sexual assault social worker, cylinder machine operator, teacher, real estate loan officer, shoe parts caser)? Give summary @ -Spoke with [facility] for admission Was smoking cessation discussed for >3mins.? @ -No Was critical care preformed (if so, how long)? @ -No Were there social determinants of health that impacted care today? How? (Homelessness, low income, unemployed, alcoholism, drug addiction, transporta tion, low edu. Level, literacy, decrease access to med. care, long-term, rehab)? @ -No Was there de-escalation of care discussed even if they declined (Discuss DNR or withdrawal of care, Hospice)? DNR status @ -No What co-morbidities impacted this encounter? (DM, HTN, Smoking, COPD, CAD, Cancer, CVA, ARF, Chemo, Hep., AIDS, mental health diagnosis, sleep apnea, morbid obesity)? @ -Coronary disease with stent placement Was patient admitted / discharged? Hospital course, mention meds given and route, prescriptions, significant lab abnormalities, going to OR and other pertinent info. @ -Upon arrival patient was seen and evaluated in room 21. Thorough history and physical exam was performed. IV was established. Laboratory studies are conducted. Chest x-ray was performed. Patient recently had stent placed. Recommended admission for cardiac workup. Patient agreeable to plan. Admitted to [facility] in stable condition Undiagnosed new problem with uncertain prognosis? @ -No Drug Therapy requiring intensive monitoring for toxicity (Heparin, Nitro, Insulin, Cardizem)? @ -No Were any procedures done? @ -No Diagnosis/symptom? @ -Acute chest pain, history of coronary disease with recent stent placement Acute, or Chronic, or Acute on Chronic? @ -Acute Uncomplicated (without systemic symptoms) or Complicated (systemic symptoms)? @ -Complicated Side effects of treatment? @ -No Exacerbation, Progression, or Severe Exacerbation? @ -No Poses a threat to life or bodily function? How? (Chest pain, USA, CT, pneumonia, PE, COPD, DKA, ARF, appy, cholecystitis, CVA, Diverticulitis, Homicidal, Suicidal, threat to staff... and all critical care pts) @ -Yes as patient presents with chest pain Disposition Clinical Impression: Diastolic CHF, Chest pain Disposition: ADMITTED IP TO THIS HOSP Condition: Stable Is patient prescribed a controlled substance at d/c from ED?: No Time of Disposition: 19:54 Decision to Admit Reason: Admit from EC Decision Date: 08/16/23 Decision Time: 19:54
[2023-08-16] MEDS ORDERED: NALOXONE 0.4 MG/ML 1 ML VIAL IV PRN (19:54)
[2023-08-16] MEDS: FUROSEMIDE 10 MG/ML 10 ML VIAL IV SCH (20:47)
--- NOTE | 2023-08-17 08:53 | P.CRDCN ---
History of Present Illness Consult date: 08/17/23 Reason for Consult (text): Acute chest pain, recent stent, CHF exacerbation History of present illness: History of present illness: This is a 72-year-old male patient of Dr. Bales with past medical history of coronary artery disease status post stenting of the LAD and second diagonal branch, diabetes, hypertension, dyslipidemia, dilated thoracic aorta, chronic kidney disease, overweight. We have been asked to evaluate the patient for acute chest pain, recent stent, CHF exacerbation. Patient was just in the office to see Dr. Bales on 08/08/2023 and had no symptoms at that time. He states that he has developed some chest pain and stomach pain with history of heart failure and thinks he is holding a lot of water. He states he has been u rinating without any problems. He has been started on IV Lasix 60 mg every 8 hours. Regarding chest pain, patient was offered stress test to be done here but he would like to continue with plan for stress testing in the office next month. EKG sinus rhythm with no acute changes Chest x-ray: Mild cardiomegaly with associated mild pulmonary vascular congestion. May relate to developing heart failure. WBC 9.4, hemoglobin 13.4. INR 0.9. Potassium 4.2, BUN 34 creatinine 1.64. Troponin negative x 3. proBNP 583. Magnesium 2.3. Liver function test are normal. Home cardiac medications: Amlodipine 2.5 mg daily, aspirin 81 mg daily, atenolol 50 mg daily, atorvastatin 40 mg daily, Farxiga 10 mg daily, Imdur 30 mg daily, Brilinta 90 mg twice daily, torsemide 20 mg alternating with 30 mg every other day. Cardiac catheterization performed by Dr. Bales on 07/04/2023 revealed severe disease involving the proximal LAD and critical disease involving the first diagonal branch. Severe disease involving the first obtuse marginal branch of the left circumflex. Patient subsequently underwent successful stenting of the proximal LAD and second diagonal branch. Echocardiogram performed 05/30/2023 in the office revealed EF of 50 to 55%. Small hypokinetic areas of the inferior and inferior septal lópez at the base. Grade 1 diastolic dysfunction. Moderate left ventricular hypertrophy. Aortic valve is calcified. Mild mitral regurgitation. Mild tricuspid regurgitation. Pulmonary artery systolic pressure 39 mmHg. Physiologic pulmonic regurgitation. Review Of Systems: At the time of my exam: CONSTITUTIONAL: Denies fever or chills. HEENT: Denies blurred vision, vision changes, or eye pain. Denies hemoptysis CARDIOVASCULAR: Denies chest pain. Denies orthopnea. Denies PND. Denies palpitations RESPIRATORY: Denies shortness of breath. GASTROINTESTINAL: Denies abdominal pain. Denies nausea or vomiting. HEMATOLOGIC: Denies bleeding disorders. GENITOURINARY: Denies any blood in urine. SKIN: Denies pruitis. Denies rash. Physical examination: Gen: This is a morbidly obese 72-year-old male in no acute distress VS: reviewed blood pressure 162/72, pulse ox 95% on room air, heart rate in the 50s. HEENT: Head is atraumatic, normocephalic. Pupils equal, round. Sclerae is anicteric. NECK: Supple. No JVD. LUNGS: Diminished breath sounds. No intercostal retractions. HEART: Regular rate and rhythm. No murmur. ABDOMEN: Soft No tenderness. EXTREMITIES: Mild bilateral pedal edema. No calf tenderness. NEUROLOGICAL: Patient is awake, alert and oriented x3. Assessment: Chest pain and abdominal pain, resolved with normal cardiac enzymes and recent catheterization Acute diastolic heart failure Acute kidney injury Coronary artery disease with stenting of the proximal LAD and second diagonal branch on 07/04/2023 Diabetes mellitus type 2 Hypertension Dyslipidemia Dilated thoracic aorta Plan: Resume patient's home cardiac medications Continue patient on IV Lasix Monitor GABRIEL, daily weights, electrolytes and renal function Obtain 2-D echocardiogram and Doppler study to assess cardiac structure and function Anticipate patient will be ready for discharge tomorrow Further recommendations to follow based upon clinical course Thank you kindly for this consultation. Nurse practitioner note has been reviewed, I agree with documented findings and plan of care. Patient was seen and examined. Past Medical History Past Medical History: Cancer, Chest Pain / Angina, Diabetes Mellitus, Eye Disorder, GERD/Reflux, Hyperlipidemia, Hypertension, Osteoarthritis (OA), Prostate Disorder, Renal Disease Additional Past Medical History / Comment(s): See Dr Bales's H&P. HX OF ULCERATIVE COLITIS, ileostomy PARASTOMAL HERNIA, PROSTATE CA WITH RADIATION AND CHEMO IN 2020, LOW KIDNEY FUNCTION,Covid Dec 2022, Influenza A Jun 2023, eye condition, unsure of name. History of Any Multi-Drug Resistant Organisms: MRSA Date of last positivie culture/infection: 11/07/14 MDRO Source:: Scalp Past Surgical History: Appendectomy, Bowel Resection Additional Past Surgical History / Comment(s): COLECTOMY, RECTUM REMOVED, ELLIOTT CATARACTS removed, ILEOSTOMY, HERNIA SURGERY. Past Anesthesia/Blood Transfusion Reactions: No Reported Reaction Additional Past Anesthesia/Blood Transfusion Reaction / Comment(s): no problems with prior blood transfusions. Past Psychological History: No Psychological Hx Reported Smoking Status: Unknown if ever smoked Past Alcohol Use History: None Reported Past Drug Use History: None Reported - Past Family History Mother Family Medical History: Cancer Additional Family Medical History / Comment(s): LUNG CANCER. Father Family Medical History: Cancer Additional Family Medical History / Comment(s): MELANOMA/BRAIN CANCER. Medications and Allergies Home Medications Medication Instructions Recorded Confirmed Type Insulin Glargine,Hum.rec.anlog 50 units SQ 12/31/14 08/16/23 History [Toujeo Solostar] Omeprazole [PriLOSEC] 20 mg PO Q2D 12/31/14 08/16/23 History atenoloL [Tenormin] 50 mg PO DAILY 12/31/14 08/16/23 History Aspirin EC [Ecotrin Low Dose] 81 mg PO DAILY 11/08/18 08/16/23 History Ergocalciferol (Vitamin D2) 1,250 mcg PO WE 06/25/20 08/16/23 History [Drisdol (50,000 Iu)] Escitalopram [Lexapro] 10 mg PO DAILY 10/21/21 08/16/23 History allopurinoL [Zyloprim] 200 mg PO DAILY 10/21/21 08/16/23 History Dapagliflozin Propanediol [Farxiga] 10 mg PO DAILY 11/05/21 08/16/23 History Gabapentin [Neurontin] 100 mg PO HS 06/30/23 08/16/23 History Torsemide [Demadex] 30 mg PO Q2D 06/30/23 08/16/23 History Atorvastatin [Lipitor] 40 mg PO DAILY 07/25/23 08/16/23 History Ticagrelor [Brilinta] 90 mg PO BID #180 tab 08/02/23 08/16/23 Rx Insulin Aspart [NovoLOG Flexpen] 30 - 40 units SQ AC-TID 08/16/23 08/16/23 History Isosorbide Mononitrate ER [Imdur] 30 mg PO DAILY 08/16/23 08/16/23 History Torsemide [Demadex] 20 mg PO Q2D 08/16/23 08/16/23 History amLODIPine [Norvasc] 2.5 mg PO DAILY 08/16/23 08/16/23 History Allergies Allergy/AdvReac Type Severity Reaction Status Date / Time ibuprofen [From Motrin] Allergy Anaphylaxis Verified 08/16/23 16:35 Physical Exam Vitals: Vital Signs Temp Pulse Resp BP Pulse Ox 08/17/23 06:59 52 L 18 162/72 95 08/17/23 03:56 56 L 18 158/60 96 08/17/23 00:00 50 L 18 186/82 95 08/16/23 20:49 50 L 18 156/65 98 08/16/23 18:12 52 L 18 164/71 97 08/16/23 16:30 97.7 F 52 L 20 153/65 99 Intake and Output 08/16/23 08/17/23 08/17/23 22:59 06:59 14:59 Other: Weight 118.388 kg Results 08/16/23 17:28 08/16/23 17:28 Cardiac Enzymes 08/16/23 08/16/23 08/16/23 Range/Units 17:28 17:28 20:55 AST 24 (17-59) U/L Troponin I <0.012 <0.012 (0.000-0.034) ng/mL 08/16/23 Range/Units 23:44 AST (17-59) U/L Troponin I <0.012 (0.000-0.034) ng/mL Coagulation 08/16/23 Range/Units 17: PT 9.6 L (10.0-12.5) sec APTT 23.4 (22.0-30.0) sec CBC 08/16/23 Range/Units 17: WBC 9.4 (3.8-10.6) k/uL RBC 4.45 (4.30-5.90) m/uL Hgb 13.4 (13.0-17.5) gm/dL Hct 42.4 (39.0-53.0) % Plt Count 284 (150-450) k/uL Comprehensive Metabolic Panel 08/16/23 Range/Units 17:28 Sodium 141 (137-145) mmol/L Potassium 4.2 (3.5-5.1) mmol/L Chloride 106 (98-107) mmol/L Carbon Dioxide 21 L (22-30) mmol/L BUN 34 H (9-20) mg/dL Creatinine 1.64 H (0.66-1.25) mg/dL Glucose 105 H (74-99) mg/dL Calcium 9.3 (8.4-10.2) mg/dL AST 24 (17-59) U/L ALT 18 (4-49) U/L Alkaline Phosphatase 116 (38-126) U/L Total Protein 8.3 H (6.3-8.2) g/dL Albumin 4.7 (3.5-5.0) g/dL Current Medications Generic Name Dose Route Start Last Admin Trade Name Freq PRN Reason Stop Dose Admin Furosemide 60 mg 08/16/23 20:00 08/17/23 03:56 Furosemide 10 Mg/Ml 10 Ml Vial IV 60 mg Q8H JOSÉ Administration Naloxone HCl 0.2 mg 08/16/23 19:54 Naloxone 0.4 Mg/Ml 1 Ml Vial IV Q2M PRN Opioid Reversal Intake and Output 08/16/23 08/17/23 08/17/23 22:59 06:59 14:59 Other: Weight 118.388 kg 08/16/23 17:28 08/16/23 17:28
[2023-08-17 09:07] LABS: Glucose,Whole Blood 156 mg/dL (70-110)
[2023-08-17] MEDS: ATORVASTATIN 40 MG TAB PO SCH (10:43)
[2023-08-17] MEDS: ISOSORBIDE MONONITRATE ER 30 MG TAB.ER.24H PO SCH (10:43)
[2023-08-17] MEDS: ASPIRIN 81 MG PO SCH (10:43)
[2023-08-17] MEDS: TICAGRELOR 90 MG TAB PO SCH (10:43)
[2023-08-17] MEDS: atenoloL 50 MG TAB PO SCH (10:44)
[2023-08-17] MEDS: amLODIPine 2.5 MG TAB PO SCH (10:44)
[2023-08-17 11:21] LABS: Basophils # (A) 0.09 X 10*3/uL (0.00-0.10); Basophils % (A) 1.1 %; Eosinophils # (A) 0.47 X 10*3/uL (0.04-0.35); Eosinophils % (A) 5.6 %; HCT 40.6 % (39.6-50.0); HGB 12.9 g/dL (13.0-17.0); Lymphocytes # (A) 0.78 X 10*3/uL (0.90-5.00); Lymphocytes % (A) 9.2 %; MCH 30.2 pg (27.0-32.0); MCHC 31.8 g/dL (32.0-37.0); MCV 95.1 FL (80.0-97.0); Mean Platelet Volume 10.5 FL (9.5-12.2); Monocytes # (A) 0.75 X 10*3/uL (0.20-1.00); Monocytes % (A) 8.9 %; NRBC Per 100 WBC 0 X 10*3/uL (0.00-0.01); Neutrophils # (A) 6.35 X 10*3/uL (1.80-7.70); Platelet Count 249 X 10*3/uL (140-440); RBC 4.27 X 10*6/uL (4.40-5.60); RDW 16.4 % (11.5-14.5); WBC 8.46 X 10*3/uL (4.50-10.00)
[2023-08-17 11:47] LABS: Blood Urea Nitrogen 31.5 mg/dL (9.0-27.0); Glucose 143 mg/dL (70-110)
[2023-08-17 11:48] LABS: Calcium 9.4 mg/dL (8.7-10.3); Carbon Dioxide 19.7 mmol/L (21.6-31.8); Chloride 103 mmol/L (96-109); Potassium 4.1 mmol/L (3.5-5.5); Sodium 140 mmol/L (135-145)
[2023-08-17] MEDS: DAPAGLIFLOZIN PROPANEDIOL 10 MG TABLET PO SCH (12:05)
[2023-08-17 12:12] LABS: Glucose,Whole Blood 252 mg/dL (70-110)
[2023-08-17] MEDS: PANTOPRAZOLE 40 MG TABLET PO SCH (14:57)
[2023-08-17] MEDS: HEPARIN SODIUM,PORCINE 5,000 UNIT/ML 1 ML VIAL SQ SCH (14:57)
[2023-08-17] MEDS: IOPAMIDOL CONTRAST (ORAL USE) VIAL PO PRN (16:30)
[2023-08-17 17:29] LABS: Glucose,Whole Blood 298 mg/dL (70-110)
[2023-08-17] MEDS: INSULIN ASPART (NovoLOG) 100 UNIT/ML VIAL SQ SCH (17:32)
--- NOTE | 2023-08-17 18:43 | CT ---
EXAMINATION TYPE: CT abdomen pelvis wo con CT DLP: 1607.1 mGycm, Automated exposure control for dose reduction was used. DATE OF EXAM: 08/17/2023 6:13 PM COMPARISON: CT 11/05/2021 CLINICAL INDICATION:Male, 72 years old with history of abdominal pain; abdominal pain. oral contrast only TECHNIQUE: Axial CT of the abdomen and pelvis. Sagittal and coronal reformats were created on a [employer] workstation. Contrast used: mL of , (none if empty) Oral contrast used: with Oral Contrast FINDINGS: LOWER CHEST: Nonenlarged heart. Heavy coronary arterial calcifications versus stents in the proximal LAD and circumflex. No pericardial effusion. Prominent pericardial fat. Lung bases show mild dependen t atelectasis and mildly prominent pleural fat, no pleural effusion. ABDOMEN LIVER: Unremarkable GALLBLADDER AND BILE DUCTS: Multiple small calcified gallstones without evidence of cholecystitis. PANCREAS: Heavily fatty infiltrated without acute finding. SPLEEN: Unremarkable. ADRENAL GLANDS: Unremarkable. KIDNEYS AND URETERS: No appreciable renal calculi. No hydronephrosis or evidence of ureteral calculi. Tiny nodular partially exophytic focus along the lateral aspect of the right kidney is not fully anuradha racterized but probably a cyst. There is bilateral perinephric stranding, similar in appearance to th e prior study. PELVIS BLADDER: No acute abnormality. Bladder appears elongated in the AP dimension which could be from inco mplete distention, scarring, pelvic lipomatosis. REPRODUCTIVE: Unremarkable. ABDOMEN & PELVIS STOMACH AND BOWEL: Contrast is seen in the stomach and small bowel loops without focal acute abnormal ity or evidence of obstruction seen. Redemonstration of anterior right lower quadrant small bowel ost kayley, with parastomal hernia containing fat and small bowel without evidence of obstruction. Status po st colectomy changes with similar appearance of presacral soft tissue density and calcifications comp atible with postoperative change. PERITONEUM/RETROPERITONEUM: No evidence of pneumoperitoneum or free fluid. There is a relatively la rge amount of intraperitoneal fat suggestive of lipomatosis. VASCULATURE: Moderate atherosclerotic calcifications are present throughout the abdominal aorta and i ts branches. No evidence of aortic aneurysm. LYMPH NODES: No enlarged nodes by CT size criteria. SOFT TISSUE/ABDOMINAL WALL: Partially seen mild bilateral gynecomastia like changes. [id number] e fat-containing bilateral inguinal hernias. MUSCULOSKELETAL: Moderate degenerative changes of the hips and spine. No acute bony abnormality is reyes ggested. IMPRESSION: 1. Overall appearance of the abdomen and pelvis is similar to the prior exam, detailed above. 2. No acute abnormality demonstrated.
[2023-08-17 20:10] LABS: Glucose,Whole Blood 180 mg/dL (70-110)
[2023-08-17] MEDS: GABAPENTIN 100 MG CAP PO SCH (21:35)
[2023-08-17] MEDS: INSULIN DETEMIR (LEVEMIR) 100 UNIT/ML SYR SQ SCH (21:35)
[2023-08-17] MEDS: MELATONIN 5 MG TABLET PO SCH (22:24)
--- NOTE | 2023-08-18 | HP ---
HISTORY AND PHYSICAL CHIEF COMPLAINT: Chest pain. HISTORY OF PRESENT ILLNESS: This is a 72-year-old gentleman with a past medical history of CHF, history of CAD stent, was complaining of anterior part of chest pain and some shortness of breath. The patient had worsening lower extremity edema also. The patient has abdominal distention also. There is no history of any fever, rigors, or chills at this time. Cardiology evaluation in progress. Initial troponins are negative. PAST MEDICAL HISTORY: Reviewed. CAD, stent, CHF, ulcerative colitis. Rest of the history and rest of the chart is also reviewed. HOME MEDICATIONS: Tenormin. Dose and rest of medications reviewed. ALLERGIES: Ibuprofen. FAMILY HISTORY: History of lung cancer in the family. SOCIAL HISTORY: No history of smoking or alcohol. REVIEW OF SYSTEMS: Fourteen-point review is negative except as mentioned earlier. PHYSICAL EXAMINATION: VITAL SIGNS: Pulse is 52, blood pressure 162/70, respirations 18. HEENT: Conjunctivae normal. NECK: No JVD. CARDIOVASCULAR: S1, S2. RESPIRATIONS: Breath sounds diminished at the bases. A few scattered rhonchi and crackles. ABDOMEN: Soft, some distention. No tenderness. No guarding. No rigidity. LEGS: No edema. NERVOUS SYSTEM: No focal deficits. SKIN: No ulcer, rash, bleeding. JOINTS: No active deforming arthropathy. LABORATORY DATA: Reviewed. ASSESSMENT: 1. Chest pain, possible unstable angina. 2. Possible congestive heart failure acute exacerbation. 3. Abdominal distention. 4. Hypertension. 5. Hyperlipidemia. 6. History of ulcerative colitis. 7. History of prostate cancer. 8. Chronic kidney disease, stage 3. RECOMMENDATIONS AND DISCUSSION: This is a 72-year-old gentleman, who presented with multiple complex medical issues, we will monitor the patient closely. Continue the current management and continue symptomatic treatment. Cardiology consultation. Also recommend CT scan of the abdomen and pelvis to ensure normalcy. Otherwise, repeat labs will be ordered. Prognosis guarded. Further recommendations to follow. Discussed with the patient. MMODL / IJN: [id number] /
[2023-08-18 06:04] LABS: Glucose,Whole Blood 153 mg/dL (70-110)
[2023-08-18 08:30] LABS: Basophils # (A) 0.08 X 10*3/uL (0.00-0.10); Eosinophils # (A) 0.53 X 10*3/uL (0.04-0.35); Eosinophils % (A) 6.8 %; HCT 36.8 % (39.6-50.0); Lymphocytes # (A) 0.89 X 10*3/uL (0.90-5.00); Lymphocytes % (A) 11.3 %; MCH 30.4 pg (27.0-32.0); MCHC 32.6 g/dL (32.0-37.0); MCV 93.2 FL (80.0-97.0); Mean Platelet Volume 10.5 FL (9.5-12.2); Monocytes # (A) 0.78 X 10*3/uL (0.20-1.00); Monocytes % (A) 9.9 %; NRBC Per 100 WBC 0 X 10*3/uL (0.00-0.01); Neutrophils # (A) 5.55 X 10*3/uL (1.80-7.70); Neutrophils % (A) 70.7 %; Platelet Count 236 X 10*3/uL (140-440); RBC 3.95 X 10*6/uL (4.40-5.60); RDW 16.3 % (11.5-14.5); WBC 7.85 X 10*3/uL (4.50-10.00)
[2023-08-18 08:41] LABS: Blood Urea Nitrogen 39.6 mg/dL (9.0-27.0); Calcium 9.3 mg/dL (8.7-10.3); Carbon Dioxide 23.7 mmol/L (21.6-31.8); Chloride 101 mmol/L (96-109); Glucose 149 mg/dL (70-110); Potassium 3.6 mmol/L (3.5-5.5); Sodium 139 mmol/L (135-145)
[2023-08-18] MEDS: FUROSEMIDE 10 MG/ML 10 ML VIAL IV SCH (08:42)
[2023-08-18] MEDS: allopurinoL 100 MG TAB PO SCH (08:42)
[2023-08-18] MEDS: ESCITALOPRAM 10 MG TAB PO SCH (08:43)
--- NOTE | 2023-08-18 08:49 | XR ---
EXAMINATION TYPE: XR chest 1V portable DATE OF EXAM: 08/18/2023 COMPARISON: 08/16/2023 INDICATION: CHF TECHNIQUE: Single frontal view of the chest is obtained. FINDINGS: The heart size is normal. The pulmonary vasculature is normal. The lungs are clear. IMPRESSION: 1. No acute pulmonary process.
--- NOTE | 2023-08-18 10:21 | P.PN ---
Subjective Progress Note Date: 08/18/23 Reason for Consult (text): Acute chest pain, recent stent, CHF exacerbation History of present illness: This is a 72-year-old male patient of Dr. Bales with past medical history of coronary artery disease status post stenting of the LAD and second diagonal branch, diabetes, hypertension, dyslipidemia, dilated thoracic aorta, chronic kidney disease, overweight. We have been asked to evaluate the patient for acute chest pain, recent stent, CHF exacerbation. Patient was just in the office to see Dr. Bales on 08/08/2023 and had no symptoms at that time. He states that he has developed some chest pain and stomach pain with history of heart failure and thinks he is holding a lot of water. He states he has been urinating without any problems. He has been started on IV Lasix 60 mg every 8 hours. Regarding chest pain, patient was offered stress test to be done here but he would like to continue with plan for stress testing in the office next month. EKG sinus rhythm with no acute changes Chest x-ray: Mild cardiomegaly with associated mild pulmonary vascular congestion. May relate to developing heart failure. WBC 9.4, hemoglobin 13.4. INR 0.9. Potassium 4.2, BUN 34 creatinine 1.64. Troponin negative x 3. proBNP 583. Magnesium 2.3. Liver function test are normal. Home cardiac medications: Amlodipine 2.5 mg daily, aspirin 81 mg daily, atenolol 50 mg daily, atorvastatin 40 mg daily, Farxiga 10 mg daily, Imdur 30 mg daily, Brilinta 90 mg twice daily, torsemide 20 mg alternating with 30 mg every other day. Cardiac catheterization performed by Dr. Bales on 07/04/2023 revealed severe disease involving the proximal LAD and critical disease involving the first diagonal branch. Severe disease involving the first obtuse marginal branch of the left circumflex. Patient subsequently underwent successful stenting of the proximal LAD and second diagonal branch. Echocardiogram performed 05/30/2023 in the office revealed EF of 50 to 55%. Sm all hypokinetic areas of the inferior and inferior septal lópez at the base. Grade 1 diastolic dysfunction. Moderate left ventricular hypertrophy. Aortic valve is calcified. Mild mitral regurgitation. Mild tricuspid regurgitation. Pulmonary artery systolic pressure 39 mmHg. Physiologic pulmonic regurgitation. 08/17 Patient is seen today on the observation unit. He has been maintained on IV Lasix 60 mg every 8 hours. Patient has a negative fluid balance, weight is trending downwards. Repeat blood work reveals sodium 135, potassium 2.8, chloride 90, CO2 37, both BUN 27 creatinine 0.78. Potassium replacement has already been ordered. Echocardiogram reveals normal LV function. Dilated left atrium. Mitral annular calcification with mild mitral regurgitation. Physical examination: Gen: This is a morbidly obese 72-year-old male in no acute distress VS: reviewed HEENT: Head is atraumatic, normocephalic. Pupils equal, round. Sclerae is anicteric. NECK: Supple. No JVD. LUNGS: Diminished breath sounds. No intercostal retractions. HEART: Regular rate and rhythm. No murmur. ABDOMEN: Soft No tenderness. EXTREMITIES: Mild bilateral pedal edema. No calf tenderness. NEUROLOGICAL: Patient is awake, alert and oriented x3. Assessment: Chest pain and abdominal pain, resolved with normal cardiac enzymes and recent catheterization Acute diastolic heart failure Acute kidney injury Coronary artery disease with stenting of the proximal LAD and second diagonal branch on 07/04/2023 Diabetes mellitus type 2 Hypertension Dyslipidemia Dilated thoracic aorta Plan: Continue patient's home cardiac medications Continue patient on IV Lasix 60 mg daily and decrease frequency to twice daily for 1 more day Monitor GABRIEL, daily weights, electrolytes and renal function Anticipate patient will be ready for discharge tomorrow Further recommendations to follow based upon clinical course At the time of discharge, patient will follow-up with Dr. Bales in 1 to 2 weeks. Nurse practitioner note has been reviewed, I agree with documented findings and plan of care. Patient was seen and examined. Objective - Vital Signs Vital signs: Vital Signs Temp 97.5 F L 08/18/23 07:04 Pulse 56 L 08/18/23 07:04 Resp 18 08/18/23 07:04 BP 136/61 08/18/23 07:04 Pulse Ox 97 08/18/23 07:04 FiO2 Intake & Output 08/17/23 08/18/23 08/18/23 18:59 06:59 18:59 Output Total 350 1350 Balance -350 -1350 Weight 118.388 kg 118.4 kg Output: Urine 300 950 Stool 50 400 Other: Voiding Method Toilet Toilet - Labs CBC & Chem 7: 08/18/23 04:19 08/18/23 04:15 Labs: Abnormal Lab Results - Last 24 Hours (Table) 08/17/23 08/17/23 08/17/23 Range/Units 06:53 06:53 09:06 RBC 4.27 L (4.40-5.60) X 10*6/uL Hgb 12.9 L (13.0-17.0) g/dL MCHC 31.8 L (32.0-37.0) g/dL RDW 16.4 H (11.5-14.5) % Lymphocytes # 0.78 L (0.90-5.00) X 10*3/uL Eosinophils # 0.47 H (0.04-0.35) X 10*3/uL Carbon Dioxide 19.7 L (21.6-31.8) mmol/L Anion Gap 17.30 H (4.00-12.00) mmol/L BUN 31.5 H (9.0-27.0) mg/dL Creatinine 1.8 H (0.6-1.5) mg/dL Est GFR (CKD-EPI) 39 L (>=60) Glucose 143 H (70-110) mg/dL POC Glucose (mg/dL) 156 H (70-110) mg/dL 08/17/23 08/17/23 08/17/23 Range/Units 12:10 17:28 20:09 RBC (4.40-5.60) X 10*6/uL Hgb (13.0-17.0) g/dL MCHC (32.0-37.0) g/dL RDW (11.5-14.5) % Lymphocytes # (0.90-5.00) X 10*3/uL Eosinophils # (0.04-0.35) X 10*3/uL Carbon Dioxide (21.6-31.8) mmol/L Anion Gap (4.00-12.00) mmol/L BUN (9.0-27.0) mg/dL Creatinine (0.6-1.5) mg/dL Est GFR (CKD-EPI) (>=60) Glucose (70-110) mg/dL POC Glucose (mg/dL) 252 H 298 H 180 H (70-110) mg/dL 08/18/23 Range/Units 06:02 RBC (4.40-5.60) X 10*6/uL Hgb (13.0-17.0) g/dL MCHC (32.0-37.0) g/dL RDW (11.5-14.5) % Lymphocytes # (0.90-5.00) X 10*3/uL Eosinophils # (0.04-0.35) X 10*3/uL Carbon Dioxide (21.6-31.8) mmol/L Anion Gap (4.00-12.00) mmol/L BUN (9.0-27.0) mg/dL Creatinine (0.6-1.5) mg/dL Est GFR (CKD-EPI) (>=60) Glucose (70-110) mg/dL POC Glucose (mg/dL) 153 H (70-110) mg/dL
--- NOTE | 2023-08-18 10:33 | CA ---
Transthoracic Echo Report Name: Mike Vidal Age: 72 Gender: M : 1950 Exam Date: 08/17/2023 17:02 Exam Location: [facility] Ht (in): 66 Wt (lb): 261 Ordering Physician: Scarlet Nichole Attending/Referring Phys: [id number], Dayanara Surface Lay Out Technician Janette Vieira RDCS Procedure CPT: Indications: LVF Cardiac Hx: Technical Quality: Technically difficult study Contrast 1: Definity Total Dose (mL): 2 Contrast 2: Total Dose (mL): MEASUREMENTS (Male / Female) Normal Values 2D ECHO LV Diastolic Diameter PLAX 4.4 cm 4.2 - 5.9 / 3.9 - 5.3 cm LV Systolic Diameter PLAX 3.0 cm IVS Diastolic Thickness 1.8 cm 0.6 - 1.0 / 0.6 - 0.9 cm LVPW Diastolic Thickness 1.4 cm 0.6 - 1.0 / 0.6 - 0.9 cm LV Relative Wall Thickness 0.7 RV Internal Dim ED PLAX 3.3 cm LA Volume 47.5 cm??? 18 - 58 / 22 - 52 cm??? LA Volume Index 19.7 cm???/m??? 16 - 28 cm???/m??? M-MODE Aortic Root Diameter MM 3.3 cm LA Systolic Diameter MM 4.2 cm LA Ao Ratio MM 1.3 AV Cusp Separation MM 2.2 cm DOPPLER AV Peak Velocity 163.0 cm/s AV Peak Gradient 10.6 mmHg AV Mean Velocity 102.3 cm/s AV Mean Gradient 4.9 mmHg AV Velocity Time Integral 37.8 cm LVOT Peak Velocity 117.9 cm/s LVOT Peak Gradient 5.6 mmHg LVOT Velocity Time Integral 28.5 cm MV Area PHT 2.5 cm??? Mitral E Point Velocity 64.6 cm/s Mitral A Point Velocity 88.0 cm/s Mitral E to A Ratio 0.7 MV Deceleration Time 304.7 ms MV E' Velocity 5.5 cm/s Mitral E to MV E' Ratio 11.7 FINDINGS Left Ventricle Severely increased left ventricular wall thickness. Left ventricular cavity size normal. Normal left ventricular systolic function with no obvious regional wall motion abnormalities. Left ventricular ejection fraction is estimated at 50-55 %. Grade 1 diastolic dysfunction. Right Ventricle Normal right ventricular size and function. Right ventricular systolic pressure within normal limits. Right Atrium Normal right atrial size. Left Atrium Normal left atrial size. Mitral Valve Structurally normal mitral valve. Mild mitral regurgitation. Mild mitral annular calcification. Aortic Valve No aortic valve stenosis or regurgitation. Tricuspid Valve Structurally normal tricuspid valve. Mild tricuspid regurgitation. Pulmonic Valve Structurally normal pulmonic valve. Pericardium No pericardial effusion. Aorta Normal size aortic root and proximal ascending aorta. CONCLUSIONS Normal LV systolic function Mild mitral regurgitation Technically suboptimal study Previewed by: Dr. Matt Vines MD (Electronically Signed) Final Date: 18 August 2023 10:33
[2023-08-18 12:01] LABS: Glucose,Whole Blood 149 mg/dL (70-110)
[2023-08-18 17:17] LABS: Glucose,Whole Blood 89 mg/dL (70-110)
[2023-08-18 20:25] LABS: Glucose,Whole Blood 195 mg/dL (70-110)
--- NOTE | 2023-08-18 20:42 | PN ---
PROGRESS NOTE SUBJECTIVE: This is a 72-year-old gentleman admitted with chest pain, was also suspected as CHF acute exacerbation. The patient had recent cardiac catheterization. The most recent chest x-ray, which I reviewed showed some increased bronchovascular markings. No fever. No cough. OBJECTIVE: VITAL SIGNS: Pulse is 49, blood pressure 120/65, respirations 18. CHEST: A few scattered rhonchi and crackles. ABDOMEN: Soft. NERVOUS SYSTEM: Nonfocal. LABORATORY DATA: Reviewed. ASSESSMENT: 1. Chest pain, possible unstable angina, improved. 2. Congestive heart failure acute exacerbation with possible acute on chronic diastolic dysfunction. 3. Abdominal distention. 4. Hypertension. 5. Hyperlipidemia. 6. History of ulcerative colitis. 7. Chronic kidney disease, stage 3. RECOMMENDATIONS: Recommend to continue current management and continue symptomatic treatment. Continue with diuretics. We will repeat labs tomorrow and possible discharge if okay with Cardiology. MMODL / IJN: [id number] /
[2023-08-19 05:43] LABS: Glucose,Whole Blood 206 mg/dL (70-110)
[2023-08-19 08:45] VITALS: BP 151/66; PULSE 55; RESP 18; TEMP 97.4
[2023-08-19 09:41] LABS: Basophils % (A) 1.2 %; Eosinophils # (A) 0.54 X 10*3/uL (0.04-0.35); Eosinophils % (A) 6.7 %; HCT 37.1 % (39.6-50.0); HGB 11.9 g/dL (13.0-17.0); Lymphocytes # (A) 0.89 X 10*3/uL (0.90-5.00); MCH 30.1 pg (27.0-32.0); MCHC 32.1 g/dL (32.0-37.0); MCV 93.9 FL (80.0-97.0); Mean Platelet Volume 10.4 FL (9.5-12.2); Monocytes # (A) 0.78 X 10*3/uL (0.20-1.00); Monocytes % (A) 9.6 %; NRBC Per 100 WBC 0.02 X 10*3/uL (0.00-0.01); Neutrophils # (A) 5.77 X 10*3/uL (1.80-7.70); Neutrophils % (A) 71.1 %; Platelet Count 250 X 10*3/uL (140-440); RBC 3.95 X 10*6/uL (4.40-5.60); RDW 16.3 % (11.5-14.5); WBC 8.11 X 10*3/uL (4.50-10.00)
[2023-08-19 11:45] LABS: BUN/Creat Ratio 21.59 Ratio (12.00-20.00); Blood Urea Nitrogen 47.5 mg/dL (9.0-27.0); Calcium 9.3 mg/dL (8.7-10.3); Carbon Dioxide 23.6 mmol/L (21.6-31.8); Chloride 102 mmol/L (96-109); Glucose 200 mg/dL (70-110); Potassium 3.7 mmol/L (3.5-5.5); Sodium 140 mmol/L (135-145)
[2023-08-19 12:20] LABS: Glucose,Whole Blood 284 mg/dL (70-110)
--- NOTE | 2023-08-19 14:21 | DS ---
DISCHARGE SUMMARY FINAL DIAGNOSES: 1. Chest pain, possible unstable angina, improved. 2. Congestive heart failure, acute exacerbation, acute on chronic diastolic dysfunction. 3. Abdominal distention. 4. Hypertension. 5. Hyperlipidemia. 6. History of ulcerative colitis. 7. Chronic kidney stage 3. DISCHARGE DISPOSITION: The patient will be discharged in stable condition and guarded prognosis. The patient will discharge after Cardiology clearance. HISTORY OF PRESENT ILLNESS: This is a 72-year-old gentleman, who was admitted with CHF acute exacerbation, multiple other medical problems, improved significantly. The patient was given diuretics, currently creatinine is 2.2. PHYSICAL EXAMINATION: VITAL SIGNS: Stable. CARDIOVASCULAR: S1 and S2. ABDOMEN: Soft. The patient will be discharged after Cardiology clearance. The patient is currently on Demadex 30 mg p.o. daily. We will await Cardiology recommendations. Otherwise, follow up with Dr. Dennis and follow up with Dr. Bales also recommended. Followup labs in the outpatient setting. MMGARY / JOYCEN: [id number] /
--- NOTE | 2023-08-19 14:43 | P.PN ---
Subjective Progress Note Date: 08/19/23 Principal diagnosis: CHF The patient is a very pleasant 72-year-old gentleman who is known to our service from before with coronary artery disease and prior revascularization of the LAD percutaneously as well as heart failure as well as diabetes and hypertension and dyslipidemia and chronic kidney disease was admitted to the hospital with heart failure. August 19, 2023 The patient was seen and evaluated this morning. He is feeling better. The shortness of breath has improved. No pain in the chest. He is overall euvolemic and would like to go home. The examination revealed clear breathing sounds bilaterally with regular rate and rhythm and systolic murmur and no edema was noted Assessment Coronary artery disease appears to be stable Heart failure with a preserved ejection fraction Multiple comorbid conditions including diabetes and hypertension and dyslipidemia and chronic kidney disease Plan DC Lasix IV and restart the patient back on Lasix orally Continue the current medical regimen The patient can potentially be discharged home Objective - Vital Signs Vital signs: Vital Signs Temp 97.4 F L 08/19/23 08:00 Pulse 55 L 08/19/23 08:00 Resp 18 08/19/23 08:00 BP 151/66 08/19/23 08:00 Pulse Ox 98 08/19/23 08:00 FiO2 Intake & Output 08/18/23 08/19/23 08/19/23 18:59 06:59 18:59 Intake Total 480 118 Output Total 1500 925 Balance -1020 -925 118 Weight 116.9 kg Intake: Oral 480 118 Output: Urine 1400 825 Stool 100 100 Other: Voiding Method Toilet Urinal # Bowel Movements 1 - Labs CBC & Chem 7: 08/19/23 04:42 08/19/23 04:42 Labs: Abnormal Lab Results - Last 24 Hours (Table) 08/18/23 08/19/23 08/19/23 Range/Units 20:23 04:42 04:42 RBC 3.95 L (4.40-5.60) X 10*6/uL Hgb 11.9 L (13.0-17.0) g/dL Hct 37.1 L (39.6-50.0) % RDW 16.3 H (11.5-14.5) % Lymphocytes # 0.89 L (0.90-5.00) X 10*3/uL Eosinophils # 0.54 H (0.04-0.35) X 10*3/uL NRBC/100 WBC Diff 0.02 H (0.00-0.01) X 10*3/uL Anion Gap 14.40 H (4.00-12.00) mmol/L BUN 47.5 H (9.0-27.0) mg/dL Creatinine 2.2 H (0.6-1.5) mg/dL Est GFR (CKD-EPI) 31 L (>=60) BUN/Creatinine Ratio 21.59 H (12.00-20.00) Ratio Glucose 200 H (70-110) mg/dL POC Glucose (mg/dL) 195 H (70-110) mg/dL 08/19/23 08/19/23 Range/Units 05:42 12:18 RBC (4.40-5.60) X 10*6/uL Hgb (13.0-17.0) g/dL Hct (39.6-50.0) % RDW (11.5-14.5) % Lymphocytes # (0.90-5.00) X 10*3/uL Eosinophils # (0.04-0.35) X 10*3/uL NRBC/100 WBC Diff (0.00-0.01) X 10*3/uL Anion Gap (4.00-12.00) mmol/L BUN (9.0-27.0) mg/dL Creatinine (0.6-1.5) mg/dL Est GFR (CKD-EPI) (>=60) BUN/Creatinine Ratio (12.00-20.00) Ratio Glucose (70-110) mg/dL POC Glucose (mg/dL) 206 H 284 H (70-110) mg/dL
[2023-08-23] MEDS ORDERED: ERGOCALCIFEROL 1,250 MCG (50,000 IU) CAPSULE PO SCH (14:00)
== END 2023-08-19 15:02 | disposition home or self-care (01) | DRG 291 ==
LOC: EC 16:26 → 6NMEDSUR 19:56 → OBSVTOIN 08-17 14:01
PROVIDERS: ADMIT Hospitalist; ATTEND Hospitalist
DX: I13.0 Hypertensive heart and chronic kidney disease with heart failure and stage 1 through stage 4 chronic kidney disease, or unspecified chronic kidney disease (principal); I50.33 Acute on chronic diastolic (congestive) heart failure; N17.9 Acute kidney failure, unspecified; K51.90 Ulcerative colitis, unspecified, without complications; Z68.41 Body mass index [BMI] 40.0-44.9, adult; E11.22 Type 2 diabetes mellitus with diabetic chronic kidney disease; Z43.2 Encounter for attention to ileostomy; I34.81 Nonrheumatic mitral (valve) annulus calcification; I34.0 Nonrheumatic mitral (valve) insufficiency; I37.1 Nonrheumatic pulmonary valve insufficiency; N18.30 Chronic kidney disease, stage 3 unspecified; E66.01 Morbid (severe) obesity due to excess calories; I25.110 Atherosclerotic heart disease of native coronary artery with unstable angina pectoris; Z79.4 Long term (current) use of insulin; I25.84 Coronary atherosclerosis due to calcified coronary lesion; E78.5 Hyperlipidemia, unspecified; K21.9 Gastro-esophageal reflux disease without esophagitis; M19.90 Unspecified osteoarthritis, unspecified site; Z79.82 Long term (current) use of aspirin; Z79.02 Long term (current) use of antithrombotics/antiplatelets; Z79.84 Long term (current) use of oral hypoglycemic drugs; Z79.899 Other long term (current) drug therapy; Z85.46 Personal history of malignant neoplasm of prostate; Z92.21 Personal history of antineoplastic chemotherapy; Z92.3 Personal history of irradiation; Z86.16 Personal history of COVID-19; Z86.14 Personal history of Methicillin resistant Staphylococcus aureus infection; Z88.6 Allergy status to analgesic agent
CPT/HCPCS: 36415; 71045; 71046; 74176; 80048; 80053; 83690; 83735; 83880; 84484; 85025; 85610; 85730; 93005; 93306; 96374; 96375; 96376; 99285

== ENCOUNTER 2023-08-30 18:15 | Observation (INO) | payer MEDICARE ==
--- NOTE | 2023-08-30 18:39 | ED ---
Chest Pain HPI - General Chief Complaint: Chest Pain Stated Complaint: Congestion, stomach pain Time Seen by Provider: 08/30/23 18:25 Source: patient, family, RN notes reviewed, old records reviewed Mode of arrival: ambulatory Limitations: no limitations - History of Present Illness Initial Comments: This is a 72-year-old male with complicated recent medical history including today abdominal pain patient also has significant history of chest pain with recent stent placement evaluation for further cardiac surgery. Patient having severe abdominal pain here in the emergency room with nausea no vomiting weakness and lightheadedness and severe abdominal pain symptoms of near syncope MD Complaint: chest pain, other (Nominal pain severe) -: days(s) Onset: during rest, during exertion Pain Location: substernal, epigastric Pain Radiation: abdomen Severity: moderate Severity scale (1-10): 5 Quality: dull Consistency: intermittent Improves With: nothing Worsens With: nothing - Related Data Home Medications Medication Instructions Recorded Confirmed Insulin Glargine,Hum.rec.anlog 50 units SQ HS 12/31/14 08/30/23 [Nava Jose] Omeprazole [PriLOSEC] 20 mg PO Q2D 12/31/14 08/30/23 atenoloL [Tenormin] 50 mg PO DAILY 12/31/14 08/30/23 Aspirin EC [Ecotrin Low Dose] 81 mg PO DAILY 11/08/18 08/30/23 Ergocalciferol (Vitamin D2) 1,250 mcg PO WE 06/25/20 08/30/23 [Drisdol (50,000 Iu)] Escitalopram [Lexapro] 10 mg PO DAILY 10/21/21 08/30/23 allopurinoL [Zyloprim] 200 mg PO DAILY 10/21/21 08/30/23 Dapagliflozin Propanediol [Farxiga] 10 mg PO DAILY 11/05/21 08/30/23 Gabapentin [Neurontin] 100 mg PO HS 06/30/23 08/30/23 Torsemide [Demadex] 30 mg PO Q2D 06/30/23 08/30/23 Atorvastatin [Lipitor] 40 mg PO DAILY 07/25/23 08/30/23 Insulin Aspart [NovoLOG Flexpen] 30 - 40 units SQ AC-TID 08/16/23 08/30/23 Isosorbide Mononitrate ER [Imdur] 30 mg PO DAILY 08/16/23 08/30/23 Torsemide [Demadex] 20 mg PO Q2D 08/16/23 08/30/23 amLODIPine [Norvasc] 5 mg PO DAILY 08/16/23 08/30/23 Sodium Bicarbonate Tab 650 mg PO DIRECTED 08/30/23 08/30/23 Previous Rx's Medication Instructions Recorded Ticagrelor [Brilinta] 90 mg PO BID #180 tab 08/02/23 Allergies Allergy/AdvReac Type Severity Reaction Status Date / Time ibuprofen [From Motrin] Allergy Anaphylaxis Verified 08/30/23 20:38 Review of Systems ROS Statement: Those systems with pertinent positive or pertinent negative responses have been documented in the HPI. ROS Other: All systems not noted in ROS Statement are negative. EKG Findings - EKG Comments: EKG Findings:: EKG sinus bradycardia 59 NE 204 QRS 93 QTc 400 - EKG Results: EKG: interpreted by ANALIA Past Medical History Past Medical History: Cancer, Chest Pain / Angina, Diabetes Mellitus, Eye Disorder, GERD/Reflux, Hyperlipidemia, Hypertension, Osteoarthritis (OA), Prostate Disorder, Renal Disease Additional Past Medical History / Comment(s): See Dr Bales's H&P. HX OF ULCERATIVE COLITIS, ileostomy PARASTOMAL HERNIA, PROSTATE CA WITH RADIATION AND CHEMO IN 2020, LOW KIDNEY FUNCTION,Covid Dec 2022, Influenza A Jun 2023, eye condition, unsure of name. History of Any Multi-Drug Resistant Organisms: MRSA Date of last positivie culture/infection: 11/07/14 MDRO Source:: Scalp Past Surgical History: Appendectomy, Bowel Resection, Heart Catheterization, Heart Catheterization With Stent Additional Past Surgical History / Comment(s): COLECTOMY, RECTUM REMOVED, ELLIOTT CATARACTS removed, ILEOSTOMY, HERNIA SURGERY. Past Anesthesia/Blood Transfusion Reactions: No Reported Reaction Additional Past Anesthesia/Blood Transfusion Reaction / Comment(s): no problems with prior blood transfusions. Past Psychological History: No Psychological Hx Reported Smoking Status: Unknown if ever smoked Past Alcohol Use History: None Reported Past Drug Use History: None Reported - Past Family History Mother Family Medical History: Cancer Additional Family Medical History / Comment(s): LUNG CANCER. Father Family Medical History: Cancer Additional Family Medical History / Comment(s): MELANOMA/BRAIN CANCER. General Exam Limitations: no limitations General appearance: alert, in no apparent distress Head exam: Present: atraumatic, normocephalic, normal inspection Eye exam: Present: normal appearance, PERRL, EOMI. Absent: scleral icterus, conjunctival injection, periorbital swelling ENT exam: Present: normal exam, mucous membranes moist Neck exam: Present: normal inspection. Absent: tenderness, meningismus, lymphadenopathy Respiratory exam: Present: normal lung sounds bilaterally. Absent: respiratory distress, wheezes, rales, rhonchi, stridor Cardiovascular Exam: Present: regular rate, normal rhythm, normal heart sounds. Absent: systolic murmur, diastolic murmur, rubs, gallop, clicks GI/Abdominal exam: Present: soft, normal bowel sounds. Absent: distended, tenderness, guarding, rebound, rigid Extremities exam: Present: normal inspection, full ROM, normal capillary refill. Absent: tenderness, pedal edema, joint swelling, calf tenderness Back exam: Present: normal inspection Neurological exam: Present: alert, oriented X3, CN II-XII intact Psychiatric exam: Present: normal affect, normal mood Skin exam: Present: warm, dry, intact, normal color. Absent: rash Course Vital Signs 08/30/23 08/30/23 08/30/23 18:20 19:49 20:46 Temperature 98.0 F Pulse Rate 58 L 58 L 60 Respiratory 18 18 18 Rate Blood Pressure 152/62 146/61 144/56 O2 Sat by Pulse 92 L 100 97 Oximetry - Reevaluation(s) Reevaluation #1: 08/30/23 21:42 Medical records reviewed Reevaluation #2: 08/30/23 21:42 Patient's pain is improved Reevaluation #4: Was pt. sent in by a medical professional or institution (, PA, TREE MARKER, urgent care, hospital, or senior living...) When possible be specific @ -no Did you speak to anyone other than the patient for history (EMS, parent, family, police, friend...)? What history was obtained from this source @ -no Did you review nursing and triage notes (agree or disagree)? Why? @ -agree Are old charts reviewed (outside hosp., previous admission, EMS record, old EKG, old radiological studies, urgent care reports/EKG's, senior living records)? Report findings @ -yes Differential Diagnosis (chest pain, altered mental status, abdominal pain women, abdominal pain men, vaginal bleeding, weakness, fever, dyspnea, syncope, headache, dizziness, GI bleed, back pain, seizure, CVA, palpatations, mental health, musculoskeletal)? @ -prior EKG interpreted by me (3pts min.). @ -yes X-rays interpreted by me (1pt min.). @ -yes negative for acute disease CT interpreted by me (1pt min.). @ -no U/S interpreted by me (1pt. min.). @ -no What testing was considered but not performed or refused? (CT, X-rays, U/S, labs)? Why? @ -none What meds were considered but not given or refused? Why? @ -none Did you discuss the management of the patient with other professionals (professionals i.e. , PA, TREE MARKER, lab, RT, psych nurse, social studies teacher, manager speech, teacher, water resources technical officer, correctional counselor/case manager)? Give summary @ -no Was smoking cessation discussed for >3mins.? @ -no Was critical care preformed (if so, how long)? @ -no Were there social determinants of health that impacted care today? How? (Homelessness, low income, unemployed, alcoholism, drug addiction, transportation, low edu. Level, literacy, decrease access to med. care, retirement, rehab)? @ -none Was there de-escalation of care discussed even if they declined (Discuss DNR or withdrawal of care, Hospice)? DNR status @ -no What co-morbidities impacted this encounter? (DM, HTN, Smoking, COPD, CAD, Cancer, CVA, ARF, Chemo, Hep., AIDS, mental health diagnosis, sleep apnea, mor bid obesity)? @ -none Was patient admitted / discharged? Hospital course, mention meds given and route, prescriptions, significant lab abnormalities, going to OR and other pertinent info. @ - Undiagnosed new problem with uncertain prognosis? @ -no Drug Therapy requiring intensive monitoring for toxicity (Heparin, Nitro, Insulin, Cardizem)? @ -no Were any procedures done? @ -no Diagnosis/symptom? @ - Acute, or Chronic, or Acute on Chronic? @ -Acute Uncomplicated (without systemic symptoms) or Complicated (systemic symptoms)? @ -Complicated Side effects of treatment? @ -no Exacerbation, Progression, or Severe Exacerbation? @ -exacerbation Poses a threat to life or bodily function? How? (Chest pain, USA, ID, pneumonia, PE, COPD, DKA, ARF, appy, cholecystitis, CVA, Diverticulitis, Homicidal, Suicidal, threat to staff... and all critical care pts) @ -yes Reevaluation #5: Differential Chest Pain: Stable Angina, Unstable Angina, STEMI, NSTEMI Aortic Dissection, Pneumothorax, Musculoskeletal, Esophageal Spasm GERD, Cholecystitis, Pancreatitis, Zoster, this is not meant to be an all-inclusive list. Differential Abdominal Pain Men: Appendicitis, cholecystitis, diverticulosis, ischemic bowel, pancreatitis, hepatitis, UTI, gastroenteritis, AAA, incarcerated hernia, bowel obstruction, constipation, inflammatory bowel, hepatitis, peptic ulcer disease, splenic infarction, perforated viscus, testicular torsion, this is not meant to be an all-inclusive list - Consultations Consultation #1: Poke with Dr. Arce who agreed admit this patient Chest Pain MDM - MDM 72 male to the ER for evaluation of severe weakness and debility recent cardiac stent placement and patient will be admitted for PT OT regarding recent cardiac surgery and concern for medication reaction Disposition Clinical Impression: Chest pain, Exertional dyspnea, Hernia, abdominal, Abdominal pain, Weakness, Debility Disposition: ADMITTED IP TO THIS HOSP Condition: Fair Is patient prescribed a controlled substance at d/c from ED?: No Referrals: Nas Dennis DO [Primary Care Provider] - 1-2 days
[2023-08-30 19:23] LABS: INR 0.9 (<1.2); Partial Thromboplastin Time 23.1 sec (22.0-30.0); Prothrombin Time 9.7 sec (10.0-12.5)
[2023-08-30 19:25] LABS: ALT 18 U/L (4-49); African American GFR (CKD) 41 (>60 ml/min/1.73 sqM); Anion Gap 11 mmol/L; Anisocytosis Slight; Basophils # (A) 0.1 k/uL (0-0.2); Basophils % (A) 1 %; Blood Urea Nitrogen 41 mg/dL (9-20); Calcium 9.1 mg/dL (8.4-10.2); Carbon Dioxide 20 mmol/L (22-30); Chloride 108 mmol/L (98-107); Eosinophils # (A) 0.6 k/uL (0-0.7); Eosinophils % (A) 8 %; Glucose 88 mg/dL (74-99); HCT 39.2 % (39.0-53.0); HGB 12.1 gm/dL (13.0-17.5); Lipase 21 U/L (23-300); Lymphocytes # (A) 0.8 k/uL (1.0-4.8); Lymphocytes % (A) 9 %; MCH 29.7 pg (25.0-35.0); MCHC 30.9 g/dL (31.0-37.0); MCV 96.1 fL (80.0-100.0); Macrocytosis Slight; Mean Platelet Volume 7.8; Monocytes # (A) 0.7 k/uL (0-1.0); Monocytes % (A) 9 %; Neutrophils # (A) 5.7 k/uL (1.3-7.7); Neutrophils % (A) 70 %; Non-African American GFR(CKD) 36 (>60 ml/min/1.73 sqM); Platelet Count 257 k/uL (150-450); RBC 4.08 m/uL (4.30-5.90); RDW 16.9 % (11.5-15.5); Sodium 139 mmol/L (137-145); WBC 8.1 k/uL (3.8-10.6)
[2023-08-30 19:32] LABS: NT-Pro-B-Type Natriuretic Pept 681 pg/mL
[2023-08-30 19:33] LABS: Potassium 5.5 mmol/L (3.5-5.1)
[2023-08-30 19:34] LABS: AST 39 U/L (17-59); Albumin 4.3 g/dL (3.5-5.0); Alkaline Phosphatase 97 U/L (38-126); Total Bilirubin 1.1 mg/dL (0.2-1.3); Total Protein 7.8 g/dL (6.3-8.2)
--- NOTE | 2023-08-30 19:58 | XR ---
EXAMINATION TYPE: XR chest 2V DATE OF EXAM: 08/30/2023 7:11 PM CLINICAL INDICATION:Male, 72 years old with history of Chest Pain; [facility] COMPARISON: 08/18/2023 TECHNIQUE: XR chest 2V. Frontal and lateral views of the chest.. FINDINGS: Lines/Tubes/Devices: No indwelling lines are seen. Monitor leads over the chest. Heart/mediastinum: Enlarged cardiopericardial silhouette, stable. A prior CT had shown prominent seferino cardial fat without cardiac enlargement Mediastinum appears normal. Pulmonary vascularity: Not increased, Lungs/Pleura: Low lung volumes with mild crowding of the lung markings. No focal consolidation, sizab le effusion, or pneumothorax. Musculoskeletal: No acute osseous abnormality demonstrated in the limits of the exam. Degenerative c hanges of the spine and shoulders. Other findings: None. IMPRESSION: No acute cardiopulmonary abnormality.
[2023-08-30] MEDS: MORPHINE SULFATE 4 MG/ML SYRINGE IVP STA (20:47)
--- NOTE | 2023-08-30 22:20 | CT ---
EXAMINATION TYPE: CT abdomen pelvis wo con CT DLP: 1488.4 mGycm, Automated exposure control for dose reduction was used. DATE OF EXAM: 08/30/2023 8:43 PM COMPARISON: 08/17/2023 measures about 10.5 x 7.1 cm CLINICAL INDICATION:Male, 72 years old with history of pain; ABD AND CHEST PAIN TECHNIQUE: Axial CT of the abdomen and pelvis. Sagittal and coronal reformats were created on a Going workstation. Contrast used: mL of , (none if empty) Oral contrast used: without Oral Contrast (none if empty) FINDINGS: LOWER CHEST: Heart size is normal, but there is prominent pericardial fat which can increase the appa rent heart size on chest x-ray. ABDOMEN LIVER: Unremarkable GALLBLADDER AND BILE DUCTS: Gallbladder is nondistended, contains collection of layering calcified st ones. PANCREAS: Heavy fatty infiltration of the pancreas, without acute finding. SPLEEN: Unremarkable. ADRENAL GLANDS: Unremarkable. KIDNEYS AND URETERS: Slightly lobular appearance of the kidneys. Mild bilateral perinephric stranding , may be chronic in absence of urinary symptoms. No evidence of hydronephrosis or ureteral calculi. 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 REPRODUCTIVE: Prostate unremarkable. Minimal calcification left of midline. ABDOMEN & PELVIS STOMACH AND BOWEL: Stomach and small bowel show no evidence of obstruction.. Redemonstration of anter ior right lower quadrant small bowel ostomy, with parastomal hernia containing fat and small bowel wi thout evidence of obstruction. Status post colectomy changes with similar appearance of presacral sof t tissue density and calcifications compatible with postoperative change. PERITONEUM/RETROPERITONEUM: No evidence of pneumoperitoneum or free fluid. There is a relatively la rge amount of intraperitoneal fat suggestive of lipomatosis. VASCULATURE: Moderate atherosclerotic calcifications are present throughout the abdominal aorta and i ts branches. No evidence of aortic aneurysm. LYMPH NODES: No enlarged nodes by CT size criteria. SOFT TISSUE/ABDOMINAL WALL: Partially seen mild bilateral gynecomastia like changes. Lpmgi-he-hxrhwrp e fat-containing bilateral inguinal hernias. MUSCULOSKELETAL: Moderate degenerative changes of the hips and spine. No acute bony abnormality is reyes ggested. IMPRESSION: 1. Stable appearance of the abdomen and pelvis, without acute abnormality demonstrated.
[2023-08-30] MEDS ORDERED: MORPHINE SULFATE 4 MG/ML SYRINGE IV PRN (22:33)
[2023-08-30] MEDS ORDERED: NALOXONE 0.4 MG/ML 1 ML VIAL IV PRN (22:33)
[2023-08-30] MEDS ORDERED: ONDANSETRON 4 MG/2 ML VIAL IVP PRN (22:33)
[2023-08-30] MEDS: SODIUM CHLORIDE 0.9% 1,000 ML IV SCH (22:54)
[2023-08-31] MEDS: ASPIRIN 81 MG PO SCH (09:18)
[2023-08-31] MEDS: DAPAGLIFLOZIN PROPANEDIOL 10 MG TABLET PO SCH (09:18)
[2023-08-31] MEDS: ATORVASTATIN 40 MG TAB PO SCH (09:18)
[2023-08-31] MEDS: atenoloL 50 MG TAB PO SCH (09:18)
[2023-08-31] MEDS: CLOPIDOGREL 75 MG TAB PO SCH (09:18)
[2023-08-31] MEDS: amLODIPine 5 MG TAB PO SCH (09:18)
[2023-08-31] MEDS: ISOSORBIDE MONONITRATE ER 30 MG TAB.ER.24H PO SCH (09:18)
[2023-08-31 09:51] LABS: Glucose,Whole Blood 145 mg/dL (70-110)
[2023-08-31] MEDS: TORSEMIDE 20 MG TAB PO SCH (09:52)
--- NOTE | 2023-08-31 10:28 | P.CRDCN ---
History of Present Illness Consult date: 08/31/23 Reason for Consult (text): CAD History of present illness: This is a 72-year-old male patient of Dr. Bales with past medical history of coronary artery disease status post stenting of the LAD and second diagonal branch, diabetes, hypertension, dyslipidemia, dilated thoracic aorta, chronic kidney disease, overweight. We have been asked to evaluate the patient for known CAD. Patient was seen in the office by Dr. Bales on 08/22/2023 and had no symptoms at that time. Patient and his complained that he has had increasing weakness becoming weaker and weaker since he had stenting done and was concerned that there was related to Brilinta. Patient's called the office yesterday regarding this and plan is to discontinue Brilinta and start patient on Plavix which will be done during this hospitalization. Patient does have some shortness of breath more so from his baseline along with occasional cough. He has a little bit of edema but not significant. He does not think his weight has changed though. He has chest pain that is he describes as a little bit. His main concern is generalized weakness and wanting physical therapy. EKG sinus rhythm with no acute changes Chest x-ray: Mild cardiomegaly with associated mild pulmonary vascular congestion. May relate to developing heart failure. WBC 8.1, hemoglobin 12.1. Sodium 139, potassium 5.5, CO2 20, BUN 41 creatinine 1.84. Troponin negative x 3. Home cardiac medications: Amlodipine 5 mg daily, aspirin 81 mg daily, atenolol 50 mg daily, atorvastatin 40 mg daily, Farxiga 10 mg daily, Imdur 30 mg daily, Brilinta 90 mg twice daily, torsemide 20 mg alternating with 30 mg every other day. Cardiac catheterization performed by Dr. Bales on 07/04/2023 revealed severe disease involving the proximal LAD and critical disease involving the first diagonal branch. Severe disease involving the first obtuse marginal branch of the left circumflex. Patient subsequently underwent successful stenting of the proximal LAD and second diagonal branch on 08/01/2023. Echocardiogram performed 08/17/2023 reveals normal LV systolic function. Mild mitral regurgitation. Review Of Systems: At the time of my exam: CONSTITUTIONAL: Denies fever or chills. Reports generalized weakness. HEENT: Denies blurred vision, vision changes, or eye pain. Denies hemoptysis CARDIOVASCULAR: Reports mild chest pain. Denies orthopnea. Denies PND. Denies palpitations RESPIRATORY: Reports shortness of breath. GASTROINTESTINAL: Reports abdominal pain. Denies nausea or vomiting. HEMATOLOGIC: Denies bleeding disorders. GENITOURINARY: Denies any blood in urine. SKIN: Denies pruitis. Denies rash. Physical examination: Gen: This is a morbidly obese 72-year-old male in no acute distress VS: reviewed blood pressure 133/61, pulse ox 95% on 1 L nasal cannula, heart rate in the 50s. HEENT: Head is atraumatic, normocephalic. Pupils equal, round. Sclerae is anicteric. NECK: Supple. No JVD. LUNGS: Mild wheezing. No intercostal retractions. HEART: Regular rate and rhythm. Systolic murmur. ABDOMEN: Soft No tenderness. EXTREMITIES: Mild bilateral pedal edema. No calf tenderness. NEUROLOGICAL: Patient is awake, alert and oriented x3. Assessment: Chest pain with normal cardiac enzymes and recent catheterization and stenting Abdominal pain which has been chronic, attending to address No overt CHF Chronic diastolic heart failure Chronic kidney disease Coronary artery disease with stenting of the proximal LAD and second diagonal branch on 07/04/2023 Diabetes mellitus type 2 Hypertension Dyslipidemia Dilated thoracic aorta Plan: Resume patient's home cardiac medications Change Brilinta to Plavix 75 mg daily No need to repeat echocardiogram PT and OT consults No further cardiac workup is planned at this time Further recommendations to follow based upon clinical course Thank you kindly for this consultation. Nurse practitioner note has been reviewed, I agree with documented findings and plan of care. Patient was seen and examined. Past Medical History Past Medical History: Cancer, Chest Pain / Angina, Diabetes Mellitus, Eye Disorder, GERD/Reflux, Hyperlipidemia, Hypertension, Osteoarthritis (OA), Prostate Disorder, Renal Disease Additional Past Medical History / Comment(s): See Dr Bales's H&P. HX OF ULCERATIVE COLITIS, ileostomy PARASTOMAL HERNIA, PROSTATE CA WITH RADIATION AND CHEMO IN 2020, LOW KIDNEY FUNCTION,Covid Dec 2022, Influenza A Jun 2023, eye condition, unsure of name. History of Any Multi-Drug Resistant Organisms: MRSA Date of last positivie culture/infection: 11/07/14 MDRO Source:: Scalp Past Surgical History: Appendectomy, Bowel Resection, Heart Catheterization, Heart Catheterization With Stent Additional Past Surgical History / Comment(s): COLECTOMY, RECTUM REMOVED, ELLIOTT CATARACTS removed, ILEOSTOMY, HERNIA SURGERY. Past Anesthesia/Blood Transfusion Reactions: No Reported Reaction Additional Past Anesthesia/Blood Transfusion Reaction / Comment(s): no problems with prior blood transfusions. Past Psychological History: No Psychological Hx Reported Smoking Status: Unknown if ever smoked Past Alcohol Use History: None Reported Past Drug Use History: None Reported - Past Family History Mother Family Medical History: Cancer Additional Family Medical History / Comment(s): LUNG CANCER. Father Family Medical History: Cancer Additional Family Medical History / Comment(s): MELANOMA/BRAIN CANCER. Medications and Allergies Home Medications Medication Instructions Recorded Confirmed Type Insulin Glargine,Hum.rec.anlog 50 units SQ HS 12/31/14 08/30/23 History [Toujeo Solostar] Omeprazole [PriLOSEC] 20 mg PO Q2D 12/31/14 08/30/23 History atenoloL [Tenormin] 50 mg PO DAILY 12/31/14 08/30/23 History Aspirin EC [Ecotrin Low Dose] 81 mg PO DAILY 11/08/18 08/30/23 History Ergocalciferol (Vitamin D2) 1,250 mcg PO WE 06/25/20 08/30/23 History [Drisdol (50,000 Iu)] Escitalopram [Lexapro] 10 mg PO DAILY 10/21/21 08/30/23 History allopurinoL [Zyloprim] 200 mg PO DAILY 10/21/21 08/30/23 History Dapagliflozin Propanediol [Farxiga] 10 mg PO DAILY 11/05/21 08/30/23 History Gabapentin [Neurontin] 100 mg PO HS 06/30/23 08/30/23 History Torsemide [Demadex] 30 mg PO Q2D 06/30/23 08/30/23 History Atorvastatin [Lipitor] 40 mg PO DAILY 07/25/23 08/30/23 History Ticagrelor [Brilinta] 90 mg PO BID #180 tab 08/02/23 08/30/23 Rx Insulin Aspart [NovoLOG Flexpen] 30 - 40 units SQ AC-TID 08/16/23 08/30/23 History Isosorbide Mononitrate ER [Imdur] 30 mg PO DAILY 08/16/23 08/30/23 History Torsemide [Demadex] 20 mg PO Q2D 08/16/23 08/30/23 History amLODIPine [Norvasc] 5 mg PO DAILY 08/16/23 08/30/23 History Sodium Bicarbonate Tab 650 mg PO DIRECTED 08/30/23 08/30/23 History Allergies Allergy/AdvReac Type Severity Reaction Status Date / Time ibuprofen [From Motrin] Allergy Anaphylaxis Verified 08/30/23 20:38 Physical Exam Vitals: Vital Signs Temp Pulse Resp BP Pulse Ox 08/31/23 06:12 55 L 16 133/61 95 08/31/23 04:50 63 16 144/65 99 08/31/23 01:10 64 18 161/75 97 08/30/23 20:46 60 18 144/56 97 08/30/23 19:49 58 L 18 146/61 100 08/30/23 18:20 98.0 F 58 L 18 152/62 92 L Intake and Output 08/30/23 08/31/23 08/31/23 22:59 06:59 14:59 Output Total 450 Balance -450 Output: Urine 450 Other: Weight 117.934 kg Results 08/30/23 19:01 08/30/23 19:01 Cardiac Enzymes 08/30/23 08/30/23 08/31/23 Range/Units 19:01 19:01 01:15 AST 39 (17-59) U/L Troponin I <0.012 <0.012 (0.000-0.034) ng/mL 08/31/23 Range/Units 04:52 AST (17-59) U/L Troponin I <0.012 (0.000-0.034) ng/mL Coagulation 08/30/23 Range/Units 19:01 PT 9.7 L (10.0-12.5) sec APTT 23.1 (22.0-30.0) sec CBC 08/30/23 Range/Units 19:01 WBC 8.1 (3.8-10.6) k/uL RBC 4.08 L (4.30-5.90) m/uL Hgb 12.1 L (13.0-17.5) gm/dL Hct 39.2 (39.0-53.0) % Plt Count 257 (150-450) k/uL Comprehensive Metabolic Panel 08/30/23 Range/Units 19:01 Sodium 139 (137-145) mmol/L Potassium 5.5 H (3.5-5.1) mmol/L Chloride 108 H (98-107) mmol/L Carbon Dioxide 20 L (22-30) mmol/L BUN 41 H (9-20) mg/dL Creatinine 1.84 H (0.66-1.25) mg/dL Glucose 88 (74-99) mg/dL Calcium 9.1 (8.4-10.2) mg/dL AST 39 (17-59) U/L ALT 18 (4-49) U/L Alkaline Phosphatase 97 (38-126) U/L Total Protein 7.8 (6.3-8.2) g/dL Albumin 4.3 (3.5-5.0) g/dL Current Medications Generic Name Dose Route Start Last Admin Trade Name Freq PRN Reason Stop Dose Admin Amlodipine Besylate 5 mg 08/31/23 09:00 08/31/23 09:18 Amlodipine 5 Mg Tab PO 5 mg DAILY JOSÉ Administration Aspirin 81 mg 08/31/23 09:00 08/31/23 09:18 Aspirin 81 Mg PO 81 mg DAILY JOSÉ Administration Atenolol 50 mg 08/31/23 09:00 08/31/23 09:18 Atenolol 50 Mg Tab PO 50 mg DAILY JOSÉ Administration Atorvastatin Calcium 40 mg 08/31/23 09:00 08/31/23 09:18 Atorvastatin 40 Mg Tab PO 40 mg DAILY JOSÉ Administration Clopidogrel Bisulfate 75 mg 08/31/23 09:00 08/31/23 09:18 Clopidogrel 75 Mg Tab PO 75 mg DAILY JOSÉ Administration Dapagliflozin 10 mg 08/31/23 09:00 08/31/23 09:18 Dapagliflozin Propanediol 10 Mg Tablet PO 10 mg DAILY JOSÉ Administration Sodium Chloride 1,000 mls @ 75 mls/hr 08/30/23 22:45 08/30/23 22:54 Saline 0.9% IV 75 mls/hr .[id number] JOSÉ Administration Isosorbide Mononitrate 30 mg 08/31/23 09:00 08/31/23 09:18 Isosorbide Mononitrate Er 30 Mg Tab.Er.24h PO 30 mg DAILY JOSÉ Administration Morphine Sulfate 4 mg 08/30/23 22:33 Morphine Sulfate 4 Mg/Ml Syringe IV Q4HR PRN Severe Pain (Scale 7 to 10) Naloxone HCl 0.2 mg 08/30/23 22:33 Naloxone 0.4 Mg/Ml 1 Ml Vial IV Q2M PRN Opioid Reversal Ondansetron HCl 4 mg 08/30/23 22:33 Ondansetron 4 Mg/2 Ml Vial IVP Q8HR PRN Nausea And Vomiting Torsemide 20 mg 09/01/23 09:00 Torsemide 20 Mg Tab PO Q2D JOSÉ Torsemide 30 mg 08/31/23 09:00 08/31/23 09:52 Torsemide 20 Mg Tab PO 30 mg Q2D JOSÉ Administration Intake and Output 08/30/23 08/31/23 08/31/23 22:59 06:59 14:59 Output Total 450 Balance -450 Output: Urine 450 Other: Weight 117.934 kg 08/30/23 19:01 08/30/23 19:01
[2023-08-31] MEDS ORDERED: DEXTROSE 50% SYRINGE 50 ML IVP PRN ×2 (13:10)
[2023-08-31 13:15] LABS: Glucose,Whole Blood 193 mg/dL (70-110)
[2023-08-31] MEDS: allopurinoL 100 MG TAB PO SCH (13:28)
[2023-08-31] MEDS: ESCITALOPRAM 10 MG TAB PO SCH (13:28)
[2023-08-31] MEDS: INSULIN ASPART (NovoLOG) 100 UNIT/ML VIAL SQ SCH (13:29)
--- NOTE | 2023-08-31 15:27 | P.GSCN ---
History of Present Illness Consult date: 08/31/23 History of present illness: CHIEF COMPLAINT: Abdominal pain and chest pain HISTORY OF PRESENT ILLNESS: This is a 72-year-old male who presented to the hospital with complaints of abdominal pain and chest pain. Patient reports she has had abdominal pain for about 3 to 4 months. Reports that the pain did worsen over the last couple of days. Patient reports pain is across majority of the abdomen. Patient does have a known history of ulcerative colitis with colectomy end ileostomy about 25 years ago. Also history of appendectomy and ventral hernia repair. Patient has history of coronary disease with recent cardiac stent placement on July 31, 2023. Patient complains of increased pain and bloating after eating. He feels distended after eating. Patient reports his last colonoscopy was 25 years ago when he had his colectomy and ileostomy. He has never had a EGD. CT scan abdomen and pelvis was negative. Denies any nausea or vomiting. Ostomy has been functioning. Patient also complaining of cough. Patient does report abdominal pain was present before the cough. He denies any fever chills or sweats. PAST MEDICAL HISTORY: Cancer, Chest Pain / Angina, Diabetes Mellitus, Eye Disorder, GERD/Reflux, Hyperlipidemia, Hypertension, Osteoarthritis (OA), Prostate Disorder, Renal Disease,HX OF ULCERATIVE COLITIS, ileostomy PARASTOMAL HERNIA, PROSTATE CA WITH RADIATION AND CHEMO IN 2020, LOW KIDNEY FUNCTION,Covid Sept 2022, PAST SURGICAL HISTORY: Appendectomy, Bowel Resection, Heart Catheterization, Heart Catheterization With Stent, COLECTOMY, RECTUM REMOVED, ELLIOTT CATARACTS removed, ILEOSTOMY, HERNIA SURGERY. MEDICATIONS: See below ALLERGIES: See below SOCIAL HISTORY: No illicit drug use. REVIEW OF SYSTEMS: CONSTITUTIONAL: Denies fever or chills. HEENT: Denies blurred vision, vision changes, or eye pain. Denies hemoptysis CARDIOVASCULAR: Denies chest pain or pressure. RESPIRATORY: No shortness of breath. GASTROINTESTINAL: See HPI for pertinent findings HEMATOLOGIC: Denies bleeding disorders. GENITOURINARY: Denies any blood in urine or increased urinary frequency. SKIN: Denies pruitis. Denies rash. PHYSICAL EXAM: VITAL SIGNS: Reviewed GENERAL: Well-developed in no acute distress. HEENT: No sclera icterus. Extraocular movements grossly intact. Moist buccal mucosa. Head is atraumatic, normocephalic. No nasal drainage. ABDOMEN: Soft. Nondistended. Tenderness with palpation epigastric area and left mid side of abdomen. Ileostomy on right lower side of abdomen with stool present. NEUROLOGIC: Alert and oriented. Cranial nerves II through XII grossly intact. LABORATORY DATA: WBC 8.1 Hgb 12.1 platelets 257 INR 0.9 Sodium is 139 potassium is 5.5 creatinine 1.84 Troponin negative x 3 LFTs normal lipase 21 IMAGING: CT scan abdomen pelvis stable appearance of the abdomen pelvis without acute abnormality demonstrated. ASSESSMENT: 1. Abdominal pain 2. Chest pain. Seen by cardiology. Recent heart cath with stent placement 3. Hyperkalemia PLAN: -Plan for EGD on 09/04/[address] Rock -ok for clear liquids -continue protonix -Hyperkalemia management per medicine service Physician [employer] note has been reviewed by physician. Signing provider agrees with the documented findings, assessment, and plan of care. Past Medical History Past Medical History: Cancer, Chest Pain / Angina, Diabetes Mellitus, Eye Disorder, GERD/Reflux, Hyperlipidemia, Hypertension, Osteoarthritis (OA), Prostate Disorder, Renal Disease Additional Past Medical History / Comment(s): See Dr Bales's H&P. HX OF ULCERATIVE COLITIS, ileostomy PARASTOMAL HERNIA, PROSTATE CA WITH RADIATION AND CHEMO IN 2020, LOW KIDNEY FUNCTION,Covid Dec 2022, Influenza A Jun 2023, eye condition, unsure of name. History of Any Multi-Drug Resistant Organisms: MRSA Year Discovered:: 11/07/14 MDRO Source:: Scalp Past Surgical History: Appendectomy, Bowel Resection, Heart Catheterization, Heart Catheterization With Stent Additional Past Surgical History / Comment(s): COLECTOMY, RECTUM REMOVED, ELLIOTT CATARACTS removed, ILEOSTOMY, HERNIA SURGERY. Past Anesthesia/Blood Transfusion Reactions: No Reported Reaction Additional Past Anesthesia/Blood Transfusion Reaction / Comm: no problems with prior blood transfusions. Past Psychological History: No Psychological Hx Reported Smoking Status: Unknown if ever smoked Past Alcohol Use History: None Reported Past Drug Use History: None Reported - Past Family History Mother Family Medical History: Cancer Additional Family Medical History / Comment(s): LUNG CANCER. Father Family Medical History: Cancer Additional Family Medical History / Comment(s): MELANOMA/BRAIN CANCER. Medications and Allergies Home Medications Medication Instructions Recorded Confirmed Type Insulin Glargine,Hum.rec.anlog 50 units SQ HS 12/31/14 08/30/23 History [Toujeo Solostar] Omeprazole [PriLOSEC] 20 mg PO Q2D 12/31/14 08/30/23 History atenoloL [Tenormin] 50 mg PO DAILY 12/31/14 08/30/23 History Aspirin EC [Ecotrin Low Dose] 81 mg PO DAILY 11/08/18 08/30/23 History Ergocalciferol (Vitamin D2) 1,250 mcg PO WE 06/25/20 08/30/23 History [Drisdol (50,000 Iu)] Escitalopram [Lexapro] 10 mg PO DAILY 10/21/21 08/30/23 History allopurinoL [Zyloprim] 200 mg PO DAILY 10/21/21 08/30/23 History Dapagliflozin Propanediol [Farxiga] 10 mg PO DAILY 11/05/21 08/30/23 History Gabapentin [Neurontin] 100 mg PO HS 06/30/23 08/30/23 History Torsemide [Demadex] 30 mg PO Q2D 06/30/23 08/30/23 History Atorvastatin [Lipitor] 40 mg PO DAILY 07/25/23 08/30/23 History Ticagrelor [Brilinta] 90 mg PO BID #180 tab 08/02/23 08/30/23 Rx Insulin Aspart [NovoLOG Flexpen] 30 - 40 units SQ AC-TID 08/16/23 08/30/23 History Isosorbide Mononitrate ER [Imdur] 30 mg PO DAILY 08/16/23 08/30/23 History Torsemide [Demadex] 20 mg PO Q2D 08/16/23 08/30/23 History amLODIPine [Norvasc] 5 mg PO DAILY 08/16/23 08/30/23 History Sodium Bicarbonate Tab 650 mg PO DIRECTED 08/30/23 08/30/23 History Allergies Allergy/AdvReac Type Severity Reaction Status Date / Time ibuprofen [From Motrin] Allergy Anaphylaxis Verified 08/30/23 20:38 Surgical - Exam Vital Signs Temp Pulse Resp BP Pulse Ox 98.0 F 58 L 18 152/62 92 L 08/30/23 18:20 08/30/23 18:20 08/30/23 18:20 08/30/23 18:20 08/30/23 18:20 Results - Labs 08/30/23 19:01 08/30/23 19:01 Abnormal Lab Results - Last 24 Hours (Table) 08/30/23 08/30/23 08/30/23 Range/Units 19:01 19:01 19:01 RBC 4.08 L (4.30-5.90) m/uL Hgb 12.1 L (13.0-17.5) gm/dL MCHC 30.9 L (31.0-37.0) g/dL RDW 16.9 H (11.5-15.5) % Lymphocytes # 0.8 L (1.0-4.8) k/uL PT 9.7 L (10.0-12.5) sec Potassium 5.5 H (3.5-5.1) mmol/L Chloride 108 H (98-107) mmol/L Carbon Dioxide 20 L (22-30) mmol/L BUN 41 H (9-20) mg/dL Creatinine 1.84 H (0.66-1.25) mg/dL POC Glucose (mg/dL) (70-110) mg/dL Lipase 21 L (23-300) U/L 08/31/23 08/31/23 Range/Units 09:49 13:13 RBC (4.30-5.90) m/uL Hgb (13.0-17.5) gm/dL MCHC (31.0-37.0) g/dL RDW (11.5-15.5) % Lymphocytes # (1.0-4.8) k/uL PT (10.0-12.5) sec Potassium (3.5-5.1) mmol/L Chloride (98-107) mmol/L Carbon Dioxide (22-30) mmol/L BUN (9-20) mg/dL Creatinine (0.66-1.25) mg/dL POC Glucose (mg/dL) 145 H 193 H (70-110) mg/dL Lipase (23-300) U/L Diabetes panel 08/30/23 Range/Units 19:01 Sodium 139 (137-145) mmol/L Potassium 5.5 H (3.5-5.1) mmol/L Chloride 108 H (98-107) mmol/L Carbon Dioxide 20 L (22-30) mmol/L BUN 41 H (9-20) mg/dL Creatinine 1.84 H (0.66-1.25) mg/dL Glucose 88 (74-99) mg/dL Calcium 9.1 (8.4-10.2) mg/dL AST 39 (17-59) U/L ALT 18 (4-49) U/L Alkaline Phosphatase 97 (38-126) U/L Total Protein 7.8 (6.3-8.2) g/dL Albumin 4.3 (3.5-5.0) g/dL Calcium panel 08/30/23 Range/Units 19:01 Calcium 9.1 (8.4-10.2) mg/dL Albumin 4.3 (3.5-5.0) g/dL Pituitary panel 08/30/23 Range/Units 19:01 Sodium 139 (137-145) mmol/L Potassium 5.5 H (3.5-5.1) mmol/L Chloride 108 H (98-107) mmol/L Carbon Dioxide 20 L (22-30) mmol/L BUN 41 H (9-20) mg/dL Creatinine 1.84 H (0.66-1.25) mg/dL Glucose 88 (74-99) mg/dL Calcium 9.1 (8.4-10.2) mg/dL Adrenal panel 08/30/23 Range/Units 19:01 Sodium 139 (137-145) mmol/L Potassium 5.5 H (3.5-5.1) mmol/L Chloride 108 H (98-107) mmol/L Carbon Dioxide 20 L (22-30) mmol/L BUN 41 H (9-20) mg/dL Creatinine 1.84 H (0.66-1.25) mg/dL Glucose 88 (74-99) mg/dL Calcium 9.1 (8.4-10.2) mg/dL Total Bilirubin 1.1 (0.2-1.3) mg/dL AST 39 (17-59) U/L ALT 18 (4-49) U/L Alkaline Phosphatase 97 (38-126) U/L Total Protein 7.8 (6.3-8.2) g/dL Albumin 4.3 (3.5-5.0) g/dL
--- NOTE | 2023-08-31 17:32 | P.HPIM ---
History of Present Illness H&P Date: 08/31/23 Chief Complaint: Abdominal pain This is a pleasant 72-year-old patient, of Dr. Nas lu. Chronic stable medical conditions include diabetes, GERD, hypertension, hyperlipidemia, osteoarthritis, ulcerative colitis, parastomal hernia, prostate cancer with radiation and chemo in 2020, CKD, COVID in December 2022, rectum removed,. Has a right-sided ileostomy.-Done several years ago by Dr. Young Patient in August 01, 2023 underwent stent to the LAD proximal and second diagonal by Dr. Bales. For 2 weeks patient been having abdominal pain off and on. No nausea vomiting. Able to tolerate a diet.. Has a bowel movement every day. No fever no chills. Also complains of some lower chest wall pain. Otherwise ileostomy working well. Review of systems: GEN.: None EYES: None HEENT: None NECK: None RESPIRATORY: None CARDIOVASCULAR: As above e GASTROINTESTINAL: As above GENITOURINARY: None MUSCULOSKELETAL: Joint pain LYMPHATICS: None HEMATOLOGICAL: None PSYCHIATRY: None NEUROLOGICAL: None Social history: No smoking. No alcohol. . Physical examination: VITAL SIGNS: 98, 58, 18, 152 x 62, 92% room air GENERAL: BMI 42, reclining bed awake not in distress. EYES: Pupils equal. Conjunctiva carl l. HEENT: External appearance of nose and ears normal, oral cavity grossly normal. NECK: JVD not raised; masses not palpable. HEART: First and second heart sounds are normal; no edema. LUNGS: Respiratory rate normal; clear to auscultation. ABDOMEN: Soft, nontender, liver spleen not palpable, no masses palpable. Right-sided ileostomy PSYCH: Alert and oriented x3; mood and affect carl l. MUSCULOSKELETAL:No Clubbing/cyanosis;muscles-grossly intact NEUROLOGICAL: Cranial nerves grossly intact; no facial asymmetry, power and sensation grossly intact. LYMPHATICS: No lymph nodes palpable in the axilla and neck INVESTIGATIONS, reviewed in the clinical context: August 30, 2023: White count 8.1 hemoglobin 12.1 platelets 257 sodium 139 potassium 5.5 BUN 41 creatinine 1.84 Troponin I less than 0.012 x 3 EKG tracing personally reviewed by me-normal sinus rhythm. Nonspecific ST-T wave changes. Rate 59. Chest x-ray film personally reviewed by me-AP view. Underpenetrated. CT scan abdomen pelvis: Parastomal hernia containing fat and small bowel without evidence of obstruction. Some DJD changes. Assessment plan: -Patient presents with 2 weeks of abdominal pain. Waxing and waning. No change in pattern of ileostomy output. No nausea vomiting. Able to tolerate diet well. No fever no chills. Abdominal examination is soft. This could be symptoms of partial intermittent parastomal hernia. Consult GI and general surgery -Lower chest wall pain. [place] to be more connected to the abdominal pain. Given recent coronary stent cardiology consulted. Patient's Brilinta being changed over to Plavix by cardiology -Coronary artery disease with stent to proximal LAD and second diagonal on August 01, [address] Bales Aspirin. Brilinta changed to Plavix. Lipitor. Tenormin. -Essential hypertension Amlodipine 5 mg a day. Tenormin 50 mg a day. -Diabetes mellitus type 2, chronically on insulin Levemir 40 units subcu nightly. Sliding scale with Accu-Cheks -Depression Lexapro 10 mg a day -Chronic gout Allopurinol 25 mg a day -Chronic kidney disease stage III suspect diabetic nephropathy and hypertensive nephrosclerosis Follow renal function -Right-sided ileostomy following colectomy for ulcerative colitis -History of prostate cancer with radiation and chemo in 2020 -Primary osteoarthritis Pain medication as needed -GERD PPI -Morbid obesity BMI 42 Weight loss measures Care was discussed with the patient. Put on clear liquids. Consultation to cardiology, GI, general surgery. Past Medical History Past Medical History: Cancer, Chest Pain / Angina, Diabetes Mellitus, Eye Disorder, GERD/Reflux, Hyperlipidemia, Hypertension, Osteoarthritis (OA), Prostate Disorder, Renal Disease Additional Past Medical History / Comment(s): See Dr Bales's H&P. HX OF ULCERATIVE COLITIS, ileostomy PARASTOMAL HERNIA, PROSTATE CA WITH RADIATION AND CHEMO IN 2020, LOW KIDNEY FUNCTION,Covid Dec 2022, Influenza A Jun 2023, eye condition, unsure of name. History of Any Multi-Drug Resistant Organisms: MRSA Date of last positivie culture/infection: 11/07/14 MDRO Source:: Scalp Past Surgical History: Appendectomy, Bowel Resection, Heart Catheterization, He art Catheterization With Stent Additional Past Surgical History / Comment(s): COLECTOMY, RECTUM REMOVED, ELLIOTT CATARACTS removed, ILEOSTOMY, HERNIA SURGERY. Past Anesthesia/Blood Transfusion Reactions: No Reported Reaction Additional Past Anesthesia/Blood Transfusion Reaction / Comment(s): no problems with prior blood transfusions. Past Psychological History: No Psychological Hx Reported Smoking Status: Unknown if ever smoked Past Alcohol Use History: None Reported Past Drug Use History: None Reported - Past Family History Mother Family Medical History: Cancer Additional Family Medical History / Comment(s): LUNG CANCER. Father Family Medical History: Cancer Additional Family Medical History / Comment(s): MELANOMA/BRAIN CANCER. Medications and Allergies Home Medications Medication Instructions Recorded Confirmed Type Insulin Glargine,Hum.rec.anlog 50 units SQ HS 12/31/14 08/30/23 History [Toujeo Solostar] Omeprazole [PriLOSEC] 20 mg PO Q2D 12/31/14 08/30/23 History atenoloL [Tenormin] 50 mg PO DAILY 12/31/14 08/30/23 History Aspirin EC [Ecotrin Low Dose] 81 mg PO DAILY 11/08/18 08/30/23 History Ergocalciferol (Vitamin D2) 1,250 mcg PO WE 06/25/20 08/30/23 History [Drisdol (50,000 Iu)] Escitalopram [Lexapro] 10 mg PO DAILY 10/21/21 08/30/23 History allopurinoL [Zyloprim] 200 mg PO DAILY 10/21/21 08/30/23 History Dapagliflozin Propanediol [Farxiga] 10 mg PO DAILY 11/05/21 08/30/23 History Gabapentin [Neurontin] 100 mg PO HS 06/30/23 08/30/23 History Torsemide [Demadex] 30 mg PO Q2D 06/30/23 08/30/23 History Atorvastatin [Lipitor] 40 mg PO DAILY 07/25/23 08/30/23 History Ticagrelor [Brilinta] 90 mg PO BID #180 tab 08/02/23 08/30/23 Rx Insulin Aspart [NovoLOG Flexpen] 30 - 40 units SQ AC-TID 08/16/23 08/30/23 History Isosorbide Mononitrate ER [Imdur] 30 mg PO DAILY 08/16/23 08/30/23 History Torsemide [Demadex] 20 mg PO Q2D 08/16/23 08/30/23 History amLODIPine [Norvasc] 5 mg PO DAILY 08/16/23 08/30/23 History Sodium Bicarbonate Tab 650 mg PO DIRECTED 08/30/23 08/30/23 History Allergies Allergy/AdvReac Type Severity Reaction Status Date / Time ibuprofen [From Motrin] Allergy Anaphylaxis Verified 08/30/23 20:38 Physical Exam Vitals: Vital Signs Temp Pulse Resp BP Pulse Ox 08/31/23 06:12 55 L 16 133/61 95 08/31/23 04:50 63 16 144/65 99 08/31/23 01:10 64 18 161/75 97 08/30/23 20:46 60 18 144/56 97 08/30/23 19:49 58 L 18 146/61 100 08/30/23 18:20 98.0 F 58 L 18 152/62 92 L Intake and Output 08/30/23 08/31/23 08/31/23 22:59 06:59 14:59 Output Total 450 Balance -450 Output: Urine 450 Other: Weight 117.934 kg Results CBC & Chem 7: 08/30/23 19:01 08/30/23 19:01 Labs: Abnormal Lab Results - Last 24 Hours (Table) 08/30/23 08/30/23 08/30/23 Range/Units 19:01 19:01 19:01 RBC 4.08 L (4.30-5.90) m/uL Hgb 12.1 L (13.0-17.5) gm/dL MCHC 30.9 L (31.0-37.0) g/dL RDW 16.9 H (11.5-15.5) % Lymphocytes # 0.8 L (1.0-4.8) k/uL PT 9.7 L (10.0-12.5) sec Potassium 5.5 H (3.5-5.1) mmol/L Chloride 108 H (98-107) mmol/L Carbon Dioxide 20 L (22-30) mmol/L BUN 41 H (9-20) mg/dL Creatinine 1.84 H (0.66-1.25) mg/dL POC Glucose (mg/dL) (70-110) mg/dL Lipase 21 L (23-300) U/L 08/31/23 Range/Units 09:49 RBC (4.30-5.90) m/uL Hgb (13.0-17.5) gm/dL MCHC (31.0-37.0) g/dL RDW (11.5-15.5) % Lymphocytes # (1.0-4.8) k/uL PT (10.0-12.5) sec Potassium (3.5-5.1) mmol/L Chloride (98-107) mmol/L Carbon Dioxide (22-30) mmol/L BUN (9-20) mg/dL Creatinine (0.66-1.25) mg/dL POC Glucose (mg/dL) 145 H (70-110) mg/dL Lipase (23-300) U/L
[2023-08-31 17:48] LABS: Glucose,Whole Blood 182 mg/dL (70-110)
[2023-08-31] MEDS: SODIUM BICARBONATE TAB 650 MG TAB PO SCH (18:04)
[2023-08-31 18:43] LABS: African American GFR (CKD) 47 (>60 ml/min/1.73 sqM); Anion Gap 9 mmol/L; Blood Urea Nitrogen 42 mg/dL (9-20); Carbon Dioxide 24 mmol/L (22-30); Chloride 107 mmol/L (98-107); Glucose 181 mg/dL (74-99); Non-African American GFR(CKD) 41 (>60 ml/min/1.73 sqM); Potassium 4.3 mmol/L (3.5-5.1); Sodium 140 mmol/L (137-145)
[2023-08-31 20:23] LABS: Glucose,Whole Blood 230 mg/dL (70-110)
[2023-08-31] MEDS: GABAPENTIN 100 MG CAP PO SCH (20:39)
[2023-08-31] MEDS: INSULIN DETEMIR (LEVEMIR) 100 UNIT/ML SYR SQ SCH (20:39)
[2023-09-01] MEDS: PANTOPRAZOLE 40 MG TABLET PO SCH (06:19)
[2023-09-01 06:25] LABS: Glucose,Whole Blood 86 mg/dL (70-110)
[2023-09-01] MEDS: TORSEMIDE 20 MG TAB PO SCH (08:40)
[2023-09-01] MEDS: atenoloL 25 MG TAB PO SCH (08:45)
--- NOTE | 2023-09-01 09:11 | P.CONS ---
History of Present Illness - Reason for Consult Consult date: 09/01/23 Abdominal pain Requesting physician: Jamaal Shea - Chief Complaint Chest pain - History of Present Illness This is a pleasant 72-year-old male who presented to the emergency department yesterday with complaints of chest pain who recently underwent cardiac stent placement on July 31, 2023. Patient had been on Brilinta. He also stated that he has a chronic abdominal pain that is in the right mid to lower abdomen. He has a past medical history including coronary artery disease, ulcerative colitis status post colectomy end ileostomy around 25 years ago for which she states they removed his colon and rectum., Diabetes mellitus, eye disorder, hyperlipidemia, hypertension, BPH and chronic renal disease. Patient was seen by cardiology who ruled out any acute coronary event. Patient states this pain is chronic it is around his ileostomy, it comes and goes and is kind of dull ache states that when he eats especially if he is eating more than he should it will feel sore. States that his this has been going on for several months or more. He denies any epigastric pain, no upper abdominal pain no acid reflux. He denies any nausea or vomiting. States bowels have been normal he has to empty his bag 3-4 times a day, soft stool brown. CT abdomen pelvis reported stable appearance of the abdomen and pelvis without acute abnormality demonstrated. Admitting labs WBC 8.1 hemoglobin 12.1 hematocrit 39 platelet count 257,000 sodium 139 potassium 5.5, repeat 4.3 BUN 42 creatinine 1.6 total bilirubin 1.1 AST 39 ALT 18 alkaline phosphatase 97 lipase 21 Review of Systems REVIEW OF SYSTEMS: CARDIOPULMONARY: presented with chest pain, resolved. No shortness of breath. Gastrointestinal: Chronic mid to lower abdominal discomfort surrounding ileostomy. No acid reflux or epigastric pain. No nausea or vomiting. No hematemesis, coffee-ground emesis. No rectal bleeding, or melena. GENITOURINARY: No dysuria or hematuria. MUSCULOSKELETAL: Reports normal range of motion., Joint pain. SKIN: No rashes. No jaundice. ENDOCRINE: No chills, fevers. No excessive weight gain or loss. No polydipsia or polyuria. PSYCHIATRIC: Unremarkable. NEUROLOGY: No change in mental status. Denies dizziness, headache. ENT: Vision unremarkable. CONSTITUTIONAL: No recent weight loss. No fever, chills, night sweats. Past Medical History Past Medical History: Cancer, Chest Pain / Angina, Diabetes Mellitus, Eye Disorder, GERD/Reflux, Hyperlipidemia, Hypertension, Osteoarthritis (OA), Prostate Disorder, Renal Disease Additional Past Medical History / Comment(s): See Dr Bales's H&P. HX OF ULCERATIVE COLITIS, ileostomy PARASTOMAL HERNIA, PROSTATE CA WITH RADIATION AND CHEMO IN 2020, LOW KIDNEY FUNCTION,Covid Dec 2022, Influenza A Jun 2023, eye condition, unsure of name. History of Any Multi-Drug Resistant Organisms: MRSA Year Discovered:: 11/07/14 MDRO Source:: Scalp Past Surgical History: Appendectomy, Bowel Resection, Heart Catheterization, Heart Catheterization With Stent Additional Past Surgical History / Comment(s): COLECTOMY, RECTUM REMOVED, ELLIOTT CATARACTS removed, ILEOSTOMY, HERNIA SURGERY. Past Anesthesia/Blood Transfusion Reactions: No Reported Reaction Additional Past Anesthesia/Blood Transfusion Reaction / Comm: no problems with prior blood transfusions. Date of Last Stent Placement:: 08/01/2023 Past Psychological History: No Psychological Hx Reported Smoking Status: Unknown if ever smoked Past Alcohol Use History: None Reported Past Drug Use History: None Reported - Past Family History Mother Family Medical History: Cancer Additional Family Medical History / Comment(s): LUNG CANCER. Father Family Medical History: Cancer Additional Family Medical History / Comment(s): MELANOMA/BRAIN CANCER. Medications and Allergies Home Medications Medication Instructions Recorded Confirmed Type Insulin Glargine,Hum.rec.anlog 50 units SQ HS 12/31/14 08/30/23 History [Nava Jose] Omeprazole [PriLOSEC] 20 mg PO Q2D 12/31/14 08/30/23 History atenoloL [Tenormin] 50 mg PO DAILY 12/31/14 08/30/23 History Aspirin EC [Ecotrin Low Dose] 81 mg PO DAILY 11/08/18 08/30/23 History Ergocalciferol (Vitamin D2) 1,250 mcg PO WE 06/25/20 08/30/23 History [Drisdol (50,000 Iu)] Escitalopram [Lexapro] 10 mg PO DAILY 10/21/21 08/30/23 History allopurinoL [Zyloprim] 200 mg PO DAILY 10/21/21 08/30/23 History Dapagliflozin Propanediol [Farxiga] 10 mg PO DAILY 11/05/21 08/30/23 History Gabapentin [Neurontin] 100 mg PO HS 06/30/23 08/30/23 History Torsemide [Demadex] 30 mg PO Q2D 06/30/23 08/30/23 History Atorvastatin [Lipitor] 40 mg PO DAILY 07/25/23 08/30/23 History Ticagrelor [Brilinta] 90 mg PO BID #180 tab 08/02/23 08/30/23 Rx Insulin Aspart [NovoLOG Flexpen] 30 - 40 units SQ AC-TID 08/16/23 08/30/23 History Isosorbide Mononitrate ER [Imdur] 30 mg PO DAILY 08/16/23 08/30/23 History Torsemide [Demadex] 20 mg PO Q2D 08/16/23 08/30/23 History amLODIPine [Norvasc] 5 mg PO DAILY 08/16/23 08/30/23 History Sodium Bicarbonate Tab 650 mg PO DIRECTED 08/30/23 08/30/23 History Allergies Allergy/AdvReac Type Severity Reaction Status Date / Time ibuprofen [From Motrin] Allergy Anaphylaxis Verified 08/30/23 20:38 Physical Exam Vitals: Vital Signs Temp Pulse Pulse Resp BP BP Pulse Ox 09/01/23 02:34 98.1 F 55 L 15 118/49 94 L 09/01/23 02:00 55 L 08/31/23 20:39 84 08/31/23 19:16 98.2 F 84 15 131/72 95 08/31/23 17:53 97.7 F 55 L 19 142/59 94 L 08/31/23 16:35 97 F L 57 L 18 125/63 99 08/31/23 13:57 58 L 18 132/55 98 08/31/23 07:00 64 18 142/75 Intake and Output 08/31/23 08/31/23 09/01/23 14:59 22:59 06:59 Output Total 450 Balance -450 Output: Urine 450 Other: # Voids 1 Weight 117.934 kg General appearance: The patient is alert, oriented, appears in no acute distress. HET: Head is normocephalic and atraumatic. Conjunctiva pink. Sclera anicteric. Neck: Supple without lymphadenopathy. Trachea midline. Heart: Regular. Lungs: Equal expansion, normal respiratory effort. Abdomen: Soft, nontender, ileostomy right mid abdomen with very mild tenderness surrounding, nondistended. Skin: No rashes. No jaundice. Extremities: Normal skin color and turgor. No pedal edema. Neurological: No focal deficits. Alert and oriented x3. Results CBC & Chem 7: 08/30/23 19:01 08/31/23 17:53 Labs: Abnormal Lab Results - Last 24 Hours (Table) 08/31/23 08/31/23 08/31/23 Range/Units 09:49 13:13 17:46 BUN (9-20) mg/dL Creatinine (0.66-1.25) mg/dL Glucose (74-99) mg/dL POC Glucose (mg/dL) 145 H 193 H 182 H (70-110) mg/dL 08/31/23 08/31/23 Range/Units 17:53 20:22 BUN 42 H (9-20) mg/dL Creatinine 1.64 H (0.66-1.25) mg/dL Glucose 181 H (74-99) mg/dL POC Glucose (mg/dL) 230 H (70-110) mg/dL Comments: CT abdomen pelvis without any acute findings Assessment and Plan (1) Abdominal pain Narrative/Plan: 72-year-old male presenting with chest pain who recently underwent cardiac stent also had mentioned that he has some chronic abdominal discomfort. He has a history of ulcerative colitis who underwent total colectomy end ileostomy about 25 years ago. Patient states most of it is after eating especially if he overeats it is surrounding mostly the ileostomy site and towards the mid to lower right abdomen. He denies any epigastric pain, no acid reflux, no nausea or vomiting. Bowel movements are normal he empties his bag 3-4 times a day. He has nonbloody soft brown stool. Patient does not have any discomfort in the epigastric region likely does not need inpatient endoscopic evaluation. Pain possibly related to scar tissue and is mostly in the right mid to lower abdomen. No further workup indicated. Discussed small more frequent meals. Current Visit: Yes Status: Acute Code(s): R10.9 - UNSPECIFIED ABDOMINAL PAIN SNOMED Code(s): 39791041 (2) Chest pain Current Visit: Yes Status: Acute Code(s): R07.9 - CHEST PAIN, UNSPECIFIED SNOMED Code(s): 10061971 (3) History of total colectomy Current Visit: No Status: Acute Code(s): Z90.49 - ACQUIRED ABSENCE OF OTHER SPECIFIED PARTS OF DIGESTIVE TRACT SNOMED Code(s): 932884425126180 (4) History of ulcerative colitis Current Visit: No Status: Acute Code(s): Z87.19 - PERSONAL HISTORY OF OTHER DISEASES OF THE DIGESTIVE SYSTEM SNOMED Code(s): 031937162 (5) Renal insufficiency Current Visit: No Status: Acute Code(s): N28.9 - DISORDER OF KIDNEY AND URETER, UNSPECIFIED SNOMED Code(s): 254984332 (6) Type 2 diabetes mellitus Current Visit: No Status: Acute Code(s): E11.9 - TYPE 2 DIABETES MELLITUS WITHOUT COMPLICATIONS SNOMED Code(s): 38062932 Plan: 1. Continue symptomatic and supportive care 2. Diet as tolerated 3. Discussed with patient abdominal pain may be secondary to scarring/adhesions, recommend to eat smaller meals at a time. 4. No indication for endoscopic evaluation at this time. 5. Patient is cleared by gastroenterology for discharge Thank you for this consultation, we will sign off at this time. Dr. Soledad Vines I agree with the dictator's note, documented as a scribe by Katherine Cardona.
[2023-09-01 09:41] VITALS: BP 128/55; PULSE 64; RESP 17; TEMP 97.8
--- NOTE | 2023-09-01 10:17 | P.PN ---
Subjective Progress Note Date: 09/01/23 Reason for Consult (text): CAD History of present illness: This is a 72-year-old male patient of Dr. Bales with past medical history of coronary artery disease status post stenting of the LAD and second diagonal branch, diabetes, hypertension, dyslipidemia, dilated thoracic aorta, chronic kidney disease, overweight. We have been asked to evaluate the patient for known CAD. Patient was seen in the office by Dr. Bales on 08/22/2023 and had no symptoms at that time. Patient and his complained that he has had increasing weakness becoming weaker and weaker since he had stenting done and was concerned that there was related to Brilinta. Patient's called the office yesterday regarding this and plan is to discontinue Brilinta and start patient on Plavix which will be done during this hospitalization. Patient does have some shortness of breath more so from his baseline along with occasional cough. He has a little bit of edema but not significant. He does not think his weight has changed though. He has chest pain that is he describes as a little bit. His main concern is generalized weakness and wanting physical therapy. EKG sinus rhythm with no acute changes Chest x-ray: Mild cardiomegaly with associated mild pulmonary vascular congestion. May relate to developing heart failure. WBC 8.1, hemoglobin 12.1. Sodium 139, potassium 5.5, CO2 20, BUN 41 creatinine 1.84. Troponin negative x 3. Home cardiac medications: Amlodipine 5 mg daily, aspirin 81 mg daily, atenolol 50 mg daily, atorvastatin 40 mg daily, Farxiga 10 mg daily, Imdur 30 mg daily, Brilinta 90 mg twice daily, torsemide 20 mg alternating with 30 mg every other day. Cardiac catheterization performed by Dr. Bales on 07/04/2023 revealed severe disease involving the proximal LAD and critical disease involving the first diagonal branch. Severe disease involving the first obtuse marginal branch of the left circumflex. Patient subsequently underwent successful stenting of the proximal LAD and second diagonal branch on 08/01/2023. Echocardiogram performed 08/17/2023 reveals normal LV systolic function. Mild mitral regurgitation. 08/31 Patient is seen today in follow-up on the observation unit. Brilinta has been transition to Plavix. Blood pressure 118/49, heart rate 55, pulse ox 94% on room air. Renal function has improved with BUN 42 creatinine 1.64. PT and OT have been ordered. Noted that overall heart rate has been in the 50s and patient is feeling tired so we will adjust his beta-taylor. Physical examination: Gen: This is a morbidly obese 72-year-old male in no acute distress VS: reviewed HEENT: Head is atraumatic, normocephalic. Pupils equal, round. Sclerae is anicteric. NECK: Supple. No JVD. LUNGS: Mild wheezing. No intercostal retractions. HEART: Regular rate and rhythm. Systolic murmur. ABDOMEN: Soft No tenderness. EXTREMITIES: Mild bilateral pedal edema. No calf tenderness. NEUROLOGICAL: Patient is awake, alert and oriented x3. Assessment: Chest pain with normal cardiac enzymes and recent catheterization and stenting Abdominal pain which has been chronic, attending to address No overt CHF Chronic diastolic heart failure Chronic kidney disease Coronary artery disease with stenting of the proximal LAD and second diagonal branch on 07/04/2023 Diabetes mellitus type 2 Hypertension Dyslipidemia Dilated thoracic aorta Plan: Continue patient's home cardiac medications with the following changes Decrease atenolol to 25 mg daily Continue Plavix 75 mg daily No need to repeat echocardiogram PT and OT consults No further cardiac workup is planned at this time Cardiology will sign off this case and follow on an as-needed basis. Please reconsult for any new concerns. Patient may follow-up in the office in one to 2 weeks. Nurse practitioner note has been reviewed, I agree with documented findings and plan of care. Patient was seen and examined. Objective - Vital Signs Vital signs: Vital Signs Temp 98.1 F 09/01/23 02:34 Pulse 55 L 09/01/23 02:34 Resp 15 09/01/23 02:34 BP 118/49 09/01/23 02:34 Pulse Ox 94 L 09/01/23 02:34 FiO2 Intake & Output 08/31/23 09/01/23 09/01/23 18:59 06:59 18:59 Output Total 450 Balance -450 Weight 117.934 kg Output: Urine 450 Other: # Voids 2 - Labs CBC & Chem 7: 08/30/23 19:01 08/31/23 17:53 Labs: Abnormal Lab Results - Last 24 Hours (Table) 08/31/23 08/31/23 08/31/23 Range/Units 09:49 13:13 17:46 BUN (9-20) mg/dL Creatinine (0.66-1.25) mg/dL Glucose (74-99) mg/dL POC Glucose (mg/dL) 145 H 193 H 182 H (70-110) mg/dL 08/31/23 08/31/23 Range/Units 17:53 20:22 BUN 42 H (9-20) mg/dL Creatinine 1.64 H (0.66-1.25) mg/dL Glucose 181 H (74-99) mg/dL POC Glucose (mg/dL) 230 H (70-110) mg/dL
--- NOTE | 2023-09-01 15:54 | P.PN ---
Subjective Progress Note Date: 09/01/23 CHIEF COMPLAINT: Abdominal pain HISTORY OF PRESENT ILLNESS: Patient reports improvement of his abdominal pain. He does have some mild discomfort in the upper abdomen. But he was able to tolerate a sandwich. He has been seen by GI service they have cleared him for discharge and recommend outpatient follow-up. Upon reviewing CAT scan findings with Dr. Rock radiologist did note that patient has gallstones. Afebrile. PHYSICAL EXAM: VITAL SIGNS: Reviewed. GENERAL: Well-developed in no acute distress. HEENT: No sclera icterus. Extraocular movements grossly intact. Moist buccal mucosa. Head is atraumatic, normocephalic. ABDOMEN: Soft. Nondistended. Nontender. NEUROLOGIC: Alert and oriented. Cranial nerves II through XII grossly intact. ASSESSMENT: 1. Abdominal pain 2. Cholelithiasis PLAN: -Patient is tolerating diet. His pain has improved. -Patient can be discharged from surgical standpoint with outpatient follow-up in regards to his gallstones -No plans for EGD during this admission Physician Private Household Worker note has been reviewed by physician. Signing provider agrees with the documented findings, assessment, and plan of care. Objective - Vital Signs Vital signs: Vital Signs Temp 97.8 F 09/01/23 07:50 Pulse 64 09/01/23 07:50 Resp 17 09/01/23 07:50 BP 128/55 09/01/23 07:50 Pulse Ox 91 L 09/01/23 07:50 FiO2 Intake & Output 08/31/23 09/01/23 09/01/23 18:59 06:59 18:59 Output Total 450 Balance -450 Weight 117.934 kg Output: Urine 450 Other: # Voids 2 - Labs CBC & Chem 7: 08/30/23 19:01 08/31/23 17:53 Labs: Abnormal Lab Results - Last 24 Hours (Table) 08/31/23 08/31/23 08/31/23 Range/Units 17:46 17:53 20:22 BUN 42 H (9-20) mg/dL Creatinine 1.64 H (0.66-1.25) mg/dL Glucose 181 H (74-99) mg/dL POC Glucose (mg/dL) 182 H 230 H (70-110) mg/dL
--- NOTE | 2023-09-01 16:52 | P.DS ---
Providers Date of admission: 08/30/23 22:34 Expected date of discharge: 09/01/23 Attending physician: Jamaal Shea Consults: 08/30/23 22:33 Consult Physician Routine Consulting Provider: Yobany Bales Consult Reason/Comments: known Do you want consulting provider notified?: Yes 08/31/23 13:02 Consult Physician Routine Consulting Provider: Kylee Vines Consult Reason/Comments: abd pain Do you want consulting provider notified?: Yes 08/31/23 13:05 Consult Physician Routine Consulting Provider: Prosper Rock Consult Reason/Comments: abd pain Do you want consulting provider notified?: Yes Primary care physician: [facility] Course: Chief Complaint: Abdominal pain This is a pleasant 72-year-old patient, of Dr. Nas dennis. Chronic stable medical conditions include diabetes, GERD, hypertension, hyperlipidemia, osteoarthritis, ulcerative colitis, parastomal hernia, prostate cancer with radiation and chemo in 2020, CKD, COVID in December 2022, rectum removed,. Has a right-sided ileostomy.-Done several years ago by Dr. Young Patient in August 01, 2023 underwent stent to the LAD proximal and second diagonal by Dr. Bales. For 2 weeks patient been having abdominal pain off and on. No nausea vomiting. Able to tolerate a diet.. Has a bowel movement every day. No fever no chills. Also complains of some lower chest wall pain. Otherwise ileostomy working well. August 31: Patient doing well. Given a diet. At this point no pressing need for EGD. Patient to follow outpatient with surgery and GI. Discussed. Social history: No smoking. No alcohol. . Physical examination: VITAL SIGNS: 97.8, 64, 17, 128 x 55, 94% room air GENERAL: BMI 42, sitting in the chair comfortable EYES: Pupils equal. Conjunctiva carl l. HEENT: External appearance of nose and ears normal, oral cavity grossly normal. NECK: JVD not raised; masses not palpable. HEART: First and second heart sounds are normal; no edema. LUNGS: Respiratory rate normal; clear to auscultation. ABDOMEN: Soft, nontender, liver spleen not palpable, no masses palpable. Right-sided ileostomy PSYCH: Alert and oriented x3; mood and affect carl l. MUSCULOSKELETAL:No Clubbing/cyanosis;muscles-grossly intact INVESTIGATIONS, reviewed in the clinical context: August 30: Potassium 4.3 BUN 42 creatinine 1.64 August 30, 2023: White count 8.1 hemoglobin 12.1 platelets 257 sodium 139 potassium 5.5 BUN 41 creatinine 1.84 Troponin I less than 0.012 x 3 EKG tracing personally reviewed by me-normal sinus rhythm. Nonspecific ST-T wave changes. Rate 59. Chest x-ray film personally reviewed by me-AP view. Underpenetrated. CT scan abdomen pelvis: Parastomal hernia containing fat and small bowel without evidence of obstruction. Some DJD changes. Assessment plan: -Abdominal pain. Nonspecific. Nonsurgical. Tolerating diet. Colostomy working well. No need for any further workup currently. Follow-up GI and surgery outpatient -Lower chest wall pain.: Possible referred pain from abdomen f. Brilinta being changed over to Plavix by cardiology -Coronary artery disease with stent to proximal LAD and second diagonal on August 01, [address] Bales Aspirin. Brilinta changed to Plavix. Lipitor. Tenormin. -Essential hypertension Amlodipine 5 mg a day. Tenormin 50 mg a day. -Diabetes mellitus type 2, chronically on insulin Levemir 40 units subcu nightly. Sliding scale with Accu-Cheks -Depression Lexapro 10 mg a day -Chronic gout Allopurinol 25 mg a day -Chronic kidney disease stage III suspect diabetic nephropathy and hypertensive nephrosclerosis Follow renal function -Right-sided ileostomy following colectomy for ulcerative colitis -History of prostate cancer with radiation and chemo in 2020 -Primary osteoarthritis Pain medication as needed -GERD PPI -Morbid obesity BMI 42 Weight loss measures Disposition Home Past Medical History Past Medical History: Cancer, Chest Pain / Angina, Diabetes Mellitus, Eye Disorder, GERD/Reflux, Hyperlipidemia, Hypertension, Osteoarthritis (OA), Prostate Disorder, Renal Disease Additional Past Medical History / Comment(s): See Dr Bales's H&P. HX OF ULCERATIVE COLITIS, ileostomy PARASTOMAL HERNIA, PROSTATE CA WITH RADIATION AND CHEMO IN 2020, LOW KIDNEY FUNCTION,Covid Dec 2022, Influenza A Jun 2023, eye condition, unsure of name. History of Any Multi-Drug Resistant Organisms: MRSA Date of last positivie culture/infection: 11/07/14 MDRO Source:: Scalp Past Surgical History: Appendectomy, Bowel Resection, Heart Catheterization, Heart Catheterization With Stent Additional Past Surgical History / Comment(s): COLECTOMY, RECTUM REMOVED, ELLIOTT CATARACTS removed, ILEOSTOMY, HERNIA SURGERY. Past Anesthesia/Blood Transfusion Reactions: No Reported Reaction Additional Past Anesthesia/Blood Transfusion Reaction / Comment(s): no problems with prior blood transfusions. Past Psychological History: No Psychological Hx Reported Smoking Status: Unknown if ever smoked Past Alcohol Use History: None Reported Past Drug Use History: None Reported Plan - Discharge Summary Discharge Rx Participant: No New Discharge Prescriptions: New atenoloL [Tenormin] 25 mg PO DAILY #30 tab Clopidogrel [Plavix] 75 mg PO DAILY #30 tab Continue Insulin Glargine,Hum.rec.anlog [Toujeo Solostar] 50 units SQ HS Omeprazole [PriLOSEC] 20 mg PO Q2D Aspirin EC [Ecotrin Low Dose] 81 mg PO DAILY Ergocalciferol (Vitamin D2) [Drisdol (50,000 Iu)] 1,250 mcg PO WE allopurinoL [Zyloprim] 200 mg PO DAILY Gabapentin [Neurontin] 100 mg PO HS Torsemide [Demadex] 30 mg PO Q2D Atorvastatin [Lipitor] 40 mg PO DAILY Isosorbide Mononitrate ER [Imdur] 30 mg PO DAILY Escitalopram [Lexapro] 10 mg PO DAILY Dapagliflozin Propanediol [Farxiga] 10 mg PO DAILY amLODIPine [Norvasc] 5 mg PO DAILY Insulin Aspart [NovoLOG Flexpen] 30 - 40 units SQ AC-TID Torsemide [Demadex] 20 mg PO Q2D Sodium Bicarbonate Tab 650 mg PO DIRECTED Discontinued atenoloL [Tenormin] 50 mg PO DAILY Ticagrelor [Brilinta] 90 mg PO BID #180 tab Discharge Medication List Insulin Glargine,Hum.rec.anlog [Toujeo Solostar] 50 units SQ HS 12/31/14 [History] Omeprazole [PriLOSEC] 20 mg PO Q2D 12/31/14 [History] Aspirin EC [Ecotrin Low Dose] 81 mg PO DAILY 11/08/18 [History] Ergocalciferol (Vitamin D2) [Drisdol (50,000 Iu)] 1,250 mcg PO WE 06/25/20 [History] Escitalopram [Lexapro] 10 mg PO DAILY 10/21/21 [History] allopurinoL [Zyloprim] 200 mg PO DAILY 10/21/21 [History] Dapagliflozin Propanediol [Farxiga] 10 mg PO DAILY 11/05/21 [History] Gabapentin [Neurontin] 100 mg PO HS 06/30/23 [History] Torsemide [Demadex] 30 mg PO Q2D 06/30/23 [History] Atorvastatin [Lipitor] 40 mg PO DAILY 07/25/23 [History] Insulin Aspart [NovoLOG Flexpen] 30 - 40 units SQ AC-TID 08/16/23 [History] Isosorbide Mononitrate ER [Imdur] 30 mg PO DAILY 08/16/23 [History] Torsemide [Demadex] 20 mg PO Q2D 08/16/23 [History] amLODIPine [Norvasc] 5 mg PO DAILY 08/16/23 [History] Sodium Bicarbonate Tab 650 mg PO DIRECTED 08/30/23 [History] Clopidogrel [Plavix] 75 mg PO DAILY #30 tab 09/01/23 [Rx] atenoloL [Tenormin] 25 mg PO DAILY #30 tab 09/01/23 [Rx] Follow up Appointment(s)/Referral(s): Nas Dennis DO [Primary Care Provider] - 1-2 days Yobany Bales MD [STAFF PHYSICIAN] - 09/08/23 8:45 am Kylee Vines MD [STAFF PHYSICIAN] - 2 Weeks Prosper Rock MD [STAFF PHYSICIAN] - 09/07/23 3:40 pm Discharge Disposition: HOME SELF-CARE
== END 2023-09-01 13:07 | disposition home or self-care (01) ==
LOC: EC 18:15 → 6NMEDSUR 22:34
PROVIDERS: ADMIT Hospitalist; ATTEND Hospitalist
DX: R10.9 Unspecified abdominal pain (principal); R07.9 Chest pain, unspecified; R06.09 Other forms of dyspnea; R53.1 Weakness; K21.9 Gastro-esophageal reflux disease without esophagitis; E78.5 Hyperlipidemia, unspecified; I13.0 Hypertensive heart and chronic kidney disease with heart failure and stage 1 through stage 4 chronic kidney disease, or unspecified chronic kidney disease; I50.32 Chronic diastolic (congestive) heart failure; N18.30 Chronic kidney disease, stage 3 unspecified; E11.22 Type 2 diabetes mellitus with diabetic chronic kidney disease; I77.810 Thoracic aortic ectasia; E87.5 Hyperkalemia; N40.0 Benign prostatic hyperplasia without lower urinary tract symptoms; I25.10 Atherosclerotic heart disease of native coronary artery without angina pectoris; K51.90 Ulcerative colitis, unspecified, without complications; F32.A Depression, unspecified; M1A.9XX0 Chronic gout, unspecified, without tophus (tophi); M19.91 Primary osteoarthritis, unspecified site; K80.20 Calculus of gallbladder without cholecystitis without obstruction; E66.01 Morbid (severe) obesity due to excess calories; Z68.41 Body mass index [BMI] 40.0-44.9, adult; Z85.46 Personal history of malignant neoplasm of prostate; Z86.16 Personal history of COVID-19; Z90.49 Acquired absence of other specified parts of digestive tract; Z92.21 Personal history of antineoplastic chemotherapy; Z92.3 Personal history of irradiation; Z93.2 Ileostomy status; Z95.5 Presence of coronary angioplasty implant and graft; Z79.899 Other long term (current) drug therapy; Z79.82 Long term (current) use of aspirin; Z79.84 Long term (current) use of oral hypoglycemic drugs; Z79.4 Long term (current) use of insulin; Z79.02 Long term (current) use of antithrombotics/antiplatelets; Z88.6 Allergy status to analgesic agent
CPT/HCPCS: 96361; 96374; 99285; 36415; 93005; 97161; 83880; 80053; 80048; 83690; 83735; 84484 ×2; 85025; 85610; 85730; 71046; 74176; G0378 ×3; J2270

== ENCOUNTER 2023-12-10 14:59 | Emergency (ER) | payer MEDICARE ==
[2023-12-10] MEDS ORDERED: cefTRIAXone 1,000 MG VIAL (IM USE) IM ONE (22:10)
--- NOTE | 2024-01-10 14:06 | CT ---
[id number] STACY VOGEL : 1950 HEMATURIA DLP:1618.4 NO CONTRAST EXAM: CT abdomen pelvis without IV contrast. DATE: 12/10/2023 19:41 INDICATION: Hematuria COMPARISON: None, please note PACS downtime occurred during the radiologist interpretation of these i mages with limited priors/reports.. TECHNIQUE: CT abdomen pelvis without contrast, with axial imaging and sagittal and coronal reformats without IV or oral contrast. Lack of IV or oral contrast limits evaluation of solid and hollow organ viscera.. O ne or more CT dose reduction strategies were utilized during this examination. Total DLP administered was 1618 mGycm. FINDINGS: LOWER CHEST: Unremarkable ABDOMEN LIVER: Unremarkable GALLBLADDER AND BILE DUCTS: Layering increased densities within the lumen are present. PANCREAS: Unremarkable. SPLEEN: Unremarkable. ADRENAL GLANDS: Unremarkable. KIDNEYS AND URETERS: No evidence of hydronephrosis or renal calculus. The ureters are unremarkable. PELVIS BLADDER: No evidence for wall thickening. Incomplete distention. REPRODUCTIVE: Unremarkable. ABDOMEN & PELVIS STOMACH AND BOWEL: Stomach and duodenum are unremarkable. No evidence of bowel obstruction. PERITONEUM: No evidence of pneumoperitoneum or free fluid. VASCULATURE: No evidence of aortic aneurysm. MUSCULOSKELETAL: No acute osseous abnormalities LYMPH NODES: No gross evidence for lymphadenopathy. SOFT TISSUE/ABDOMINAL WALL: Right lower quadrant hernia containing small bowel and fat. No evidence f or stimulation obstruction. Fluid collection along the lateral margin of the hernia measuring up to 4 9 x 11 mm. IMPRESSION: No evidence for obstructive uropathy or renal calculus. Bladder is incompletely distended. No bladder wall mass. No evidence for acute process. Cholelithiasis. Right lower quadrant hernia containing small bowel without evidence for obstruction or granulation. Small fluid collection along the lateral margin of the hernia.
== END 2023-12-10 22:24 | disposition home or self-care (01) ==
LOC: EC 14:59
DX: R31.9 Hematuria, unspecified (principal); K80.20 Calculus of gallbladder without cholecystitis without obstruction; K46.9 Unspecified abdominal hernia without obstruction or gangrene
CPT/HCPCS: 99284 ×2; 74176; J0696; 96372

== ENCOUNTER 2024-02-09 19:08 | Observation (INO) | payer MEDICARE ==
--- NOTE | 2024-02-09 21:14 | ED ---
Weakness HPI - General Chief complaint: Weakness Stated complaint: Headache Time Seen by Provider: 02/09/24 21:12 Source: patient, family, RN notes reviewed Mode of arrival: wheelchair Limitations: no limitations - History of Present Illness Initial comments: 73-year-old male presented to the ER with a chief complaint of weakness. Patient states yesterday he started to feel weak and wobbly. He states today he has been endorsing a pounding headache. He denies any double blurry vision, nausea or vomiting. No fevers or chills. Patient also is endorsing abdominal pain. He does have an ostomy in place as he has had a colectomy in the past. He has had this ostomy for approximately 25 years. He denies any change in stool output. He states he has also been feeling dizzy as if the room is spinning and he is going to fall over. , at bedside, reports he has been walking abnormal as well. Patient denies any chest pain, shortness of breath or peripheral edema. No urinary complaints. - Related Data Home Medications Medication Instructions Recorded Confirmed Insulin Glargine,Hum.rec.anlog 50 units SQ HS 12/31/14 08/30/23 [Toujeo Solostar] Omeprazole [PriLOSEC] 20 mg PO Q2D 12/31/14 08/30/23 Aspirin EC [Ecotrin Low Dose] 81 mg PO DAILY 11/08/18 08/30/23 Ergocalciferol (Vitamin D2) 1,250 mcg PO WE 06/25/20 08/30/23 [Drisdol (50,000 Iu)] Escitalopram [Lexapro] 10 mg PO DAILY 10/21/21 08/30/23 allopurinoL [Zyloprim] 200 mg PO DAILY 10/21/21 08/30/23 Dapagliflozin Propanediol [Farxiga] 10 mg PO DAILY 11/05/21 08/30/23 Gabapentin [Neurontin] 100 mg PO HS 06/30/23 08/30/23 Torsemide [Demadex] 30 mg PO Q2D 06/30/23 08/30/23 Atorvastatin [Lipitor] 40 mg PO DAILY 07/25/23 08/30/23 Insulin Aspart [NovoLOG Flexpen] 30 - 40 units SQ AC-TID 08/16/23 08/30/23 Isosorbide Mononitrate ER [Imdur] 30 mg PO DAILY 08/16/23 08/30/23 Torsemide [Demadex] 20 mg PO Q2D 08/16/23 08/30/23 amLODIPine [Norvasc] 5 mg PO DAILY 08/16/23 08/30/23 Sodium Bicarbonate Tab 650 mg PO DIRECTED 08/30/23 08/30/23 Previous Rx's Medication Instructions Recorded Clopidogrel [Plavix] 75 mg PO DAILY #30 tab 09/01/23 atenoloL [Tenormin] 25 mg PO DAILY #30 tab 09/01/23 Allergies Allergy/AdvReac Type Severity Reaction Status Date / Time ibuprofen [From Motrin] Allergy Anaphylaxis Verified 08/30/23 20:38 Review of Systems ROS Statement: Those systems with pertinent positive or pertinent negative responses have been documented in the HPI. ROS Other: All systems not noted in ROS Statement are negative. Past Medical History Past Medical History: Cancer, Chest Pain / Angina, Diabetes Mellitus, Eye Disorder, GERD/Reflux, Hyperlipidemia, Hypertension, Osteoarthritis (OA), Prostate Disorder, Renal Disease Additional Past Medical History / Comment(s): See Dr Bales's H&P. HX OF ULCE RATIVE COLITIS, ileostomy PARASTOMAL HERNIA, PROSTATE CA WITH RADIATION AND CHEMO IN 2020, LOW KIDNEY FUNCTION,Covid Dec 2022, Influenza A Jun 2023, eye condition, unsure of name. History of Any Multi-Drug Resistant Organisms: MRSA Date of last positivie culture/infection: 11/07/14 MDRO Source:: Scalp Past Surgical History: Appendectomy, Bowel Resection, Heart Catheterization, Heart Catheterization With Stent Additional Past Surgical History / Comment(s): COLECTOMY, RECTUM REMOVED, ELLIOTT CATARACTS removed, ILEOSTOMY, HERNIA SURGERY. Past Anesthesia/Blood Transfusion Reactions: No Reported Reaction Additional Past Anesthesia/Blood Transfusion Reaction / Comment(s): no problems with prior blood transfusions. Date of Last Stent Placement:: 08/01/2023 Past Psychological History: No Psychological Hx Reported Smoking Status: Unknown if ever smoked Past Alcohol Use History: None Reported Past Drug Use History: None Reported - Past Family History Mother Family Medical History: Cancer Additional Family Medical History / Comment(s): LUNG CANCER. Father Family Medical History: Cancer Additional Family Medical History / Comment(s): MELANOMA/BRAIN CANCER. General Exam Limitations: no limitations General appearance: alert, in no apparent distress ENT exam: Present: normal exam, normal oropharynx, mucous membranes moist, TM's normal bilaterally Respiratory exam: Present: normal lung sounds bilaterally. Absent: respiratory distress, wheezes, rales, rhonchi, stridor Cardiovascular Exam: Present: regular rate, normal rhythm, normal heart sounds. Absent: systolic murmur, diastolic murmur, rubs, gallop, clicks GI/Abdominal exam: Present: soft, tenderness (LUQ ostomy in RLQ), normal bowel s ounds Extremities exam: Present: normal inspection, full ROM, normal capillary refill. Absent: tenderness, pedal edema, joint swelling, calf tenderness Neurological exam: Present: alert, oriented X3, CN II-XII intact Skin exam: Present: warm, dry, intact, normal color, other (ulceration to right heel). Absent: rash Course Vital Signs 02/09/24 02/09/24 19:20 22:21 Temperature 99.1 F 99.7 F H Pulse Rate 72 Respiratory 20 Rate Blood Pressure 108/44 O2 Sat by Pulse 95 Oximetry Medical Decision Making - Medical Decision Making Was pt. sent in by a medical professional or institution (, PA, BIT BENDER, urgent care, hospital, or snf...) When possible be specific @ -No Did you speak to anyone other than the patient for history (EMS, parent, family, police, friend...)? What history was obtained from this source @ -, at bedside, aiding in HPI and past medical history Did you review nursing and triage notes (agree or disagree)? Why? @ -I reviewed and agree with nursing and triage notes Were old charts reviewed (outside hosp., previous admission, EMS record, old EKG, old radiological studies, urgent care reports/EKG's, snf records)? Report findings @ -No old charts were reviewed Differential Diagnosis (chest pain, altered mental status, abdominal pain women, abdominal pain men, vaginal bleeding, weakness, fever, dyspnea, syncope, headache, dizziness, GI bleed, back pain, seizure, CVA, palpatations, mental health, musculoskeletal)? @ -Differential Weakness: Hypoglycemia, shock, sepsis, hyponatremia, anemia, infection, IA, ETOH, adverse medicine reaction, overdose, stroke, this is not meant to be an all-inclusive list. EKG interpreted by me (3pts min.). @ -As above X-rays interpreted by me (1pt min.). @ -[Chest x-ray negative for acute cardiopulmonary process. CT interpreted by me (1pt min.). @ -T brain negative for acute intracranial process. CT abdomen pelvis negative. U/S interpreted by me (1pt. min.). @ -None done What testing was considered but not performed or refused? (CT, X-rays, U/S, labs)? Why? @ -None What meds were considered but not given or refused? Why? @ -None Did you discuss the management of the patient with other professionals (professionals i.e. , PA, [employer] B[employer]ER, lab, RT, psych nurse, social work associate, director manufacturing engineering, teacher, classifications officer cc/cm, social work case manager)? Give summary @ -Yes, admission discussed with [facility]. Was smoking cessation discussed for >3mins.? @ -No Was critical care preformed (if so, how long)? @ -No Were there social determinants of health that impacted care today? How? (Homelessness, low income, unemployed, alcoholism, drug addiction, transportation, low edu. Level, literacy, decrease access to med. care, alf, rehab)? @ -No Was there de-escalation of care discussed even if they declined (Discuss DNR or withdrawal of care, Hospice)? DNR status @ -No What co-morbidities impacted this encounter? (DM, HTN, Smoking, COPD, CAD, Cancer, CVA, ARF, Chemo, Hep., AIDS, mental health diagnosis, sleep apnea, morbid obesity)? @ -Diabetes mellitus, CKD, hypertension Was patient admitted / discharged? Hospital course, mention meds given and route, prescriptions, significant lab abnormalities, going to OR and other pertinent info. @ -Admitted. 73-year-old male presented to the ER with chief complaint of weakness. History and physical exam completed. Vitals upon arrival [place] for temperature 99.1, heart rate 72, respirate 20, blood pressure 108/44, oxygen saturation 95% on room air. Patient in no signs of acute distress and nontoxic- appearing. Exam remarkable for left upper quadrant abdominal tenderness. Normal bowel sounds. No rebound or guarding. Ostomy in place in right lower quadrant. Patient also has an ulceration to right heel. No surrounding erythema or purulent drainage concerning of infection. Laboratory studies obtained showing a leukocytosis of 18.5 with a left shift. Lactic acid 2.1. CKD with a GFR 34 BUN 32, creatinine 1.91). Urinalysis showing 3+ glucose which is likely related to patient's diabetes. Viral swabs negative. Imaging completed in the ER negative. Patient received 1 L IV fluids and Tylenol for symptom control in the ER. Upon reevaluation, patient reporting mild improvement of symptoms. Admission was offered due to weakness and to trend white blood cell count. Patient is agreeable. Admission discussed with EM. Patient started on maintenance fluids. Patient admitted in stable condition. Case discussed with ED attending, Dr. Davis. Undiagnosed new problem with uncertain prognosis? @ -No Drug Therapy requiring intensive monitoring for toxicity (Heparin, Nitro, Insulin, Cardizem)? @ -No Were any procedures done? @ -No Diagnosis/symptom? @ -Weakness/leukocytosis Acute, or Chronic, or Acute on Chronic? @ -acute Uncomplicated (without systemic symptoms) or Complicated (systemic symptoms)? @ -Uncomplicated Side effects of treatment? @ -No Exacerbation, Progression, or Severe Exacerbation? @ -No Poses a threat to life or bodily function? How? (Chest pain, USA, IA, pneumonia, PE, COPD, DKA, ARF, appy, cholecystitis, CVA, Diverticulitis, Homicidal, Suicidal, threat to staff... and all critical care pts) @ -Low at this time - Lab Data Result diagrams: 02/09/24 21:32 02/09/24 21:32 Lab Results 02/09/24 02/09/24 02/09/24 Range/Units 21:32 21:32 21:32 WBC 18.5 H (3.8-10.6) k/uL RBC 4.50 (4.30-5.90) m/uL Hgb 12.9 L (13.0-17.5) gm/dL Hct 41.3 (39.0-53.0) % MCV 91.7 (80.0-100.0) fL MCH 28.7 (25.0-35.0) pg MCHC 31.3 (31.0-37.0) g/dL RDW 18.0 H (11.5-15.5) % Plt Count 232 (150-450) k/uL MPV 7.5 Neutrophils % 92 % Lymphocytes % 3 % Monocytes % 3 % Eosinophils % 1 % Basophils % 0 % Neutrophils # 17.0 H (1.3-7.7) k/uL Lymphocytes # 0.6 L (1.0-4.8) k/uL Monocytes # 0.6 (0-1.0) k/uL Eosinophils # 0.2 (0-0.7) k/uL Basophils # 0.1 (0-0.2) k/uL Hypochromasia Moderate Anisocytosis Slight Sodium 137 (137-145) mmol/L Potassium 4.9 (3.5-5.1) mmol/L Chloride 106 (98-107) mmol/L Carbon Dioxide 22 (22-30) mmol/L Anion Gap 9 mmol/L BUN 32 H (9-20) mg/dL Creatinine 1.91 H (0.66-1.25) mg/dL Est GFR (CKD-EPI)AfAm 39 (>60 ml/min/1.73 sqM) Est GFR (CKD-EPI)NonAf 34 (>60 ml/min/1.73 sqM) Glucose 128 H (74-99) mg/dL Lactic Ac Sepsis Rflx Plasma Lactic Acid Cecil (0.7-2.0) mmol/L Calcium 9.5 (8.4-10.2) mg/dL Magnesium 1.8 (1.6-2.3) mg/dL Total Bilirubin 0.9 (0.2-1.3) mg/dL AST 24 (17-59) U/L ALT 19 (4-49) U/L Alkaline Phosphatase 137 H (38-126) U/L Total Protein 7.5 (6.3-8.2) g/dL Albumin 4.3 (3.5-5.0) g/dL Urine Color Colorless Urine Appearance Clear (Clear) Urine pH 5.0 (5.0-8.0) Ur Specific [place] 1.010 (1.001-1.035) Urine Protein Trace H (Negative) Urine Glucose (UA) 3+ H (Negative) Urine Ketones Negative (Negative) Urine Blood Negative (Negative) Urine Nitrite Negative (Negative) Urine Bilirubin Negative (Negative) Urine Urobilinogen <2.0 (<2.0) mg/dL Ur Leukocyte Esterase Negative (Negative) Influenza Type A (PCR) (Not Detectd) Influenza Type B (PCR) (Not Detectd) RSV (PCR) (Not Detectd) SARS-CoV-2 (PCR) (Not Detectd) 02/09/24 02/09/24 02/09/24 Range/Units 21:32 21:32 22:51 WBC (3.8-10.6) k/uL RBC (4.30-5.90) m/uL Hgb (13.0-17.5) gm/dL Hct (39.0-53.0) % MCV (80.0-100.0) fL MCH (25.0-35.0) pg MCHC (31.0-37.0) g/dL RDW (11.5-15.5) % Plt Count (150-450) k/uL MPV Neutrophils % % Lymphocytes % % Monocytes % % Eosinophils % % Basophils % % Neutrophils # (1.3-7.7) k/uL Lymphocytes # (1.0-4.8) k/uL Monocytes # (0-1.0) k/uL Eosinophils # (0-0.7) k/uL Basophils # (0-0.2) k/uL Hypochromasia Anisocytosis Sodium (137-145) mmol/L Potassium (3.5-5.1) mmol/L Chloride (98-107) mmol/L Carbon Dioxide (22-30) mmol/L Anion Gap mmol/L BUN (9-20) mg/dL Creatinine (0.66-1.25) mg/dL Est GFR (CKD-EPI)AfAm (>60 ml/min/1.73 sqM) Est GFR (CKD-EPI)NonAf (>60 ml/min/1.73 sqM) Glucose (74-99) mg/dL Lactic Ac Sepsis Rflx Y Plasma Lactic Acid Cecil 2.1 H* (0.7-2.0) mmol/L Calcium (8.4-10.2) mg/dL Magnesium (1.6-2.3) mg/dL Total Bilirubin (0.2-1.3) mg/dL AST (17-59) U/L ALT (4-49) U/L Alkaline Phosphatase (38-126) U/L Total Protein (6.3-8.2) g/dL Albumin (3.5-5.0) g/dL Urine Color Urine Appearance (Clear) Urine pH (5.0-8.0) Ur Specific [place] (1.001-1.035) Urine Protein (Negative) Urine Glucose (UA) (Negative) Urine Ketones (Negative) Urine Blood (Negative) Urine Nitrite (Negative) Urine Bilirubin (Negative) Urine Urobilinogen (<2.0) mg/dL Ur Leukocyte Esterase (Negative) Influenza Type A (PCR) Not Detected (Not Detectd) Influenza Type B (PCR) Not Detected (Not Detectd) RSV (PCR) Not Detected (Not Detectd) SARS-CoV-2 (PCR) Not Detected (Not Detectd) - EKG Data -: EKG Interpreted by Me EKG Comments: EKG taken at 21: 18 showing a sinus rhythm no acute ST segment or T wave abnormalities. Ventricular rate 66, IN interval 179, QRS duration 86, QT/QTc 396/409. - Radiology Data Radiology results: report reviewed, image reviewed Disposition Clinical Impression: Weakness, Neutrophilic leukocytosis Disposition: ADMITTED IP TO THIS [facility] Condition: Stable Referrals: Nas Dennis DO [Primary Care Provider] - 1-2 days Time of Disposition: 01:16
[2024-02-09] MEDS: ACETAMINOPHEN TAB 325 MG TAB PO STA (21:29)
[2024-02-09 22:07] LABS: Anisocytosis Slight; Appearance,Urine Clear (Clear); Basophils # (A) 0.1 k/uL (0-0.2); Basophils % (A) 0 %; Bilirubin,Urine Negative (Negative); Blood,Urine Negative (Negative); Color,Urine Colorless; Eosinophils # (A) 0.2 k/uL (0-0.7); Eosinophils % (A) 1 %; Glucose,Urine (UA) 3+ (Negative); HCT 41.3 % (39.0-53.0); HGB 12.9 gm/dL (13.0-17.5); Hypochromasia Moderate; Ketones,Urine Negative (Negative); Leukocyte Esterase,Urine Negative (Negative); Lymphocytes # (A) 0.6 k/uL (1.0-4.8); Lymphocytes % (A) 3 %; MCH 28.7 pg (25.0-35.0); MCHC 31.3 g/dL (31.0-37.0); MCV 91.7 fL (80.0-100.0); Mean Platelet Volume 7.5; Monocytes # (A) 0.6 k/uL (0-1.0); Monocytes % (A) 3 %; Neutrophils % (A) 92 %; Nitrite,Urine Negative (Negative); Platelet Count 232 k/uL (150-450); Protein,Urine Trace (Negative); Urobilinogen,Urine <2.0 mg/dL (<2.0); WBC 18.5 k/uL (3.8-10.6)
[2024-02-09] MEDS: SODIUM CHLORIDE 0.9% 1,000 ML IV STA (22:07)
[2024-02-09 22:21] LABS: ALT 19 U/L (4-49); AST 24 U/L (17-59); African American GFR (CKD) 39 (>60 ml/min/1.73 sqM); Albumin 4.3 g/dL (3.5-5.0); Alkaline Phosphatase 137 U/L (38-126); Anion Gap 9 mmol/L; Blood Urea Nitrogen 32 mg/dL (9-20); Calcium 9.5 mg/dL (8.4-10.2); Carbon Dioxide 22 mmol/L (22-30); Chloride 106 mmol/L (98-107); Glucose 128 mg/dL (74-99); Magnesium 1.8 mg/dL (1.6-2.3); Non-African American GFR(CKD) 34 (>60 ml/min/1.73 sqM); Potassium 4.9 mmol/L (3.5-5.1); Sodium 137 mmol/L (137-145); Total Bilirubin 0.9 mg/dL (0.2-1.3); Total Protein 7.5 g/dL (6.3-8.2)
--- NOTE | 2024-02-09 23:37 | XR ---
EXAMINATION TYPE: XR chest 2V DATE OF EXAM: 02/09/2024 9:37 PM CLINICAL INDICATION:Male, 73 years old with history of Weakness; [facility] COMPARISON: None TECHNIQUE: XR chest 2V. Frontal and lateral views of the chest.. FINDINGS: Lines/Tubes/Devices: No indwelling lines are seen. Heart/mediastinum: Heart size upper normal. Mediastinum appears normal. Pulmonary vascularity: Borderline mild pulmonary vascular congestion. Lungs/Pleura: There is no evidence of pleural effusion, focal consolidation, or pneumothorax. Musculoskeletal: No acute osseous abnormality demonstrated in the limits of the exam. Degenerative c hanges of the spine and shoulders. Other findings: None. IMPRESSION: No acute cardiopulmonary abnormality. [facility], , 02/09/2024 11:34 PM
--- NOTE | 2024-02-09 23:43 | CT ---
EXAMINATION TYPE: CT brain wo con CT DLP: 1428 mGycm, Automated exposure control for dose reduction was used. DATE OF EXAM: 02/09/2024 9:47 PM COMPARISON: None.. CLINICAL INDICATION:Male, 73 years old with history of headache/weakness, Abd pain hx resection. TECHNIQUE: Brain: Axial CT images of the brain were obtained with coronal and sagittal reformats created and rev iewed. Contrast used: None. Oral contrast used: None. FINDINGS: Extra-axial spaces: No abnormal extra-axial fluid collections. Basilar cisterns are patent. Ventricular system: Ventricles appear dilated in proportion to the degree of cerebral atrophy. Cerebral parenchyma: No increased attenuation to suggest acute intraparenchymal hemorrhage. The gra y-white matter interface appears maintained. Mild generalized atrophy and mild chronic ischemic whit e matter changes. Cerebellum: No acute abnormality. Mass effect: No evidence of mass effect or midline shift. Intracranial vasculature: Unremarkable Soft tissues: No acute or concerning abnormality. Visualized orbits: Orbital contents appear grossly intact. Calvarium/osseous structures: No evidence of calvarial fracture. Paranasal sinuses and mastoid air cells: Clear. MRI is more sensitive for detecting acute processes such as infarct, and may be considered if clinica lly warranted. IMPRESSION: 1. No CT evidence of an acute intracranial abnormality. 2. Atrophy and chronic microvascular ischemic white matter changes. [facility], , 02/09/2024 11:41 PM
--- NOTE | 2024-02-10 00:33 | CT ---
EXAMINATION TYPE: CT abdomen pelvis wo con CT DLP: 1792 mGycm, Automated exposure control for dose reduction was used. DATE OF EXAM: 02/09/2024 9:47 PM COMPARISON: CT 01/09/2024 CLINICAL INDICATION:Male, 73 years old with history of abd pain hx resection; Abd pain hx resection. TECHNIQUE: Axial CT of the abdomen and pelvis. Sagittal and coronal reformats were created on a [employer] workstation. Contrast used: mL of , (none if empty) Oral contrast used: without Oral Contrast (none if empty) FINDINGS: LOWER CHEST: Mild bibasilar scarring and/or subsegmental atelectasis. ABDOMEN LIVER: No acute abnormality GALLBLADDER AND BILE DUCTS: Layering tiny gallstones/sludge. No bladder dilatation. PANCREAS: Heavily fatty replaced. SPLEEN: No acute abnormality ADRENAL GLANDS: No acute abnormality. KIDNEYS AND URETERS: Mild bilateral perinephric stranding, likely chronic changes. Perihilar calcific ations likely vascular, similar to previous. No definite ureteral stones or hydronephrosis. PELVIS BLADDER: Unremarkable REPRODUCTIVE: Unremarkable. ABDOMEN & PELVIS STOMACH AND BOWEL: Stomach and small bowel are nondistended, no evidence of obstruction. No evidenc e of appendicitis. Loop of bowel and fat again seen within right lower quadrant hernia without evide nce of obstructive change. PERITONEUM/RETROPERITONEUM: No evidence of pneumoperitoneum or free fluid. VASCULATURE: Moderate atherosclerotic calcifications are present throughout the abdominal aorta and i ts branches. No evidence of aortic aneurysm. LYMPH NODES: No enlarged nodes by CT size criteria. SOFT TISSUE/ABDOMINAL WALL: Unremarkable MUSCULOSKELETAL: No acute osseous abnormalities. Chronic degenerative changes. IMPRESSION: No acute abnormality in the abdomen or pelvis. [facility], , 02/10/2024 12:31 AM
[2024-02-10] MEDS ORDERED: ACETAMINOPHEN TAB 325 MG TAB PO PRN (01:14)
[2024-02-10] MEDS ORDERED: NALOXONE 0.4 MG/ML 1 ML VIAL IV PRN (01:14)
[2024-02-10] MEDS: SODIUM CHLORIDE 0.9% 1,000 ML IV SCH (02:08)
[2024-02-10 07:20] LABS: Glucose,Whole Blood 139 mg/dL (70-110)
[2024-02-10 12:17] LABS: Glucose,Whole Blood 215 mg/dL (70-110)
[2024-02-10] MEDS: IOPAMIDOL CONTRAST (ORAL USE) VIAL PO PRN (15:31)
[2024-02-10] MEDS: FUROSEMIDE 40 MG TAB PO SCH (15:31)
[2024-02-10] MEDS: ATORVASTATIN 40 MG TAB PO SCH (15:31)
[2024-02-10] MEDS: CLOPIDOGREL 75 MG TAB PO SCH (15:31)
[2024-02-10] MEDS: PIPERACILLIN-TAZOBACTAM 3.375 GM in SODIUM CHLORIDE 0.9% 100 ML IVPB SCH (15:31)
[2024-02-10] MEDS: ESCITALOPRAM 10 MG TAB PO SCH (16:30)
[2024-02-10] MEDS: ERGOCALCIFEROL 1,250 MCG (50,000 IU) CAPSULE PO SCH (16:30)
--- NOTE | 2024-02-10 16:38 | P.HPIM ---
History of Present Illness History of present illness; 73-year-old male with a past medical history of hypertension, hyperlipidemia, type 2 diabetes, mood disorder, and CAD presents for generalized weakness. Patient reports yesterday started to feel weak and not have as much balance as usual. He reports later he began to have a pounding headache but denies any blurry vision, nausea or vomiting. Patient also denies fever. Patient states he has had an ostomy for 25 years, denies any change in stool output. Patient also reports he has been feeling unbalanced as if the room is spinning and he is going to fall. Per ER note, when was at bedside she reported the patient had been walking abnormally. Patient also denies chest pain, shortness of breath, peripheral edema, or urinary complaints. Patient reports since he has been at the hospital he feels back to his normal self with only some tiredness as his only symptom. Initial lab work from the ER was significant for WBC 18.5, hemoglobin 12.9, MCV 91.7, creatinine 1.91, glucose 128, plasma lactate 2.1--> 1.5, alkaline phosphatase 137, UA trace protein and 3+ glucose. Influenza type A and B, RSV, COVID negative. EKG done in the ER showed heart rate of 66 bpm, no ST segment elevation or depression seen, no T-wave inversions seen. Sinus rhythm. ER CXR: No acute cardiopulmonary abnormality. ER CT Head: No acute intracranial process. Atrophy and chronic microvascular ischemic white matter changes. ER CT ABD: No acute abnormality in the abdomen or pelvis. Patient admitted to internal medicine service REVIEW OF SYSTEMS: CONSTITUTIONAL: No fever, no malaise, no fatigue. HEENT: No recent visual problems or hearing problems. Denied any sore throat. CARDIOVASCULAR: No chest pain, orthopnea, PND, no palpitations, no syncope. PULMONARY: No shortness of breath, no cough, no hemoptysis. GASTROINTESTINAL: No diarrhea, no nausea, no vomiting, no abdominal pain. NEUROLOGICAL: No headaches, no weakness, no numbness. HEMATOLOGICAL: Denies any bleeding or petechiae. GENITOURINARY: Denies any burning micturition, frequency, or urgency. MUSCULOSKELETAL/RHEUMATOLOGICAL: Denies any joint pain, swelling, or any muscle pain. ENDOCRINE: Denies any polyuria or polydipsia. The rest of the 14-point review of systems is negative. PHYSICAL EXAMINATION: GENERAL: The patient is alert and oriented x3, not in any acute distress. Well developed, well nourished. HEENT: Pupils are round and equally reacting to light. EOMI. No scleral icterus. No conjunctival pallor. Normocephalic, atraumatic. No pharyngeal erythema. No thyromegaly. CARDIOVASCULAR: S1 and S2 present. No murmurs, rubs, or gallops. PULMONARY: Chest is clear to auscultation b/l, no wheezing or crackles. ABDOMEN: Soft, nontender, nondistended, normoactive bowel sounds. No palpable organomegaly. MUSCULOSKELETAL: No joint swelling or deformity. EXTREMITIES: No cyanosis, clubbing, or pedal edema. NEUROLOGICAL: Gross neurological examination did not reveal any focal deficits. SKIN: No rashes. Assessment & Plan:73-year-old male with a past medical history of hypertension, hyperlipidemia, type 2 diabetes, mood disorder, and CAD presents for generalized weakness. When patient was seen this morning after admission he reports he is feeling much better almost back to his normal baseline with the exception of some tiredness. Patient denies fevers chills cough or congestion of any kind. Patient will be worked up for leukocytosis of unknown origin, pneumonia and UTI unlikely after imaging and urinalysis but we will further investigate with Pro- Leobardo, ESR, CRP and blood cultures. If initial tests come back negative and patient is still feeling well tomorrow we will consider discharge. #Leukocytosis of unknown origin: CXR and CT abdomen were noncontributory, WBC 18 Ordered Pro-Leobardo, ESR, CRP, and blood cultures Continue IV fluids ID on consult, appreciate further recommendations Continue to monitor for worsening signs of infection Chronic: #Hypertension: Continue home medication #Diabetes mellitus: On sliding scale Accu-Cheks #Hyperlipidemia: Continue home medication #GERD: Continue home medication F: NS 75 cc/h E: None N: Consistent carb A: Normally ambulates at home unassisted DVT ppx: Lovenox SQ 40 mg daily GI ppx: Protonix 40 mg p.o. daily Dispo: Pending clinical course Mandie Louis MD PGY-1 FM Attestation I have seen and examined this patient with my resident , discussed the same with the resident/JAYA, and agree with the dictator's assessment and plan as written GENERAL: The patient is alert and oriented x3, not in any acute distress. Well developed, well nourished. HEENT: Pupils are round and equally reacting to light. EOMI. No scleral icterus. No conjunctival pallor. Normocephalic, atraumatic. No pharyngeal erythema. No thyromegaly. CARDIOVASCULAR: S1 and S2 present. No murmurs, rubs, or gallops. PULMONARY: Chest is clear to auscultation, no wheezing or crackles. ABDOMEN: Soft, nontender, nondistended, normoactive bowel sounds. No palpable organomegaly. MUSCULOSKELETAL: No joint swelling or deformity. EXTREMITIES: No cyanosis, clubbing, or pedal edema. NEUROLOGICAL: Gross neurological examination did not reveal any focal deficits. SKIN: No rashes. Dr. Huy russell Dictation was produced using [employer] dictation software. please excuse any grammatical, word or spelling errors. Past Medical History Past Medical History: Cancer, Chest Pain / Angina, Diabetes Mellitus, Eye Disorder, GERD/Reflux, Hyperlipidemia, Hypertension, Osteoarthritis (OA), Prostate Disorder, Renal Disease Additional Past Medical History / Comment(s): HX OF ULCERATIVE COLITIS, ileos jeancarlos PARASTOMAL HERNIA, PROSTATE CA WITH RADIATION AND CHEMO IN 2020, LOW KIDNEY FUNCTION,Covid Dec 2022, Influenza A Jun 2023, eye condition, unsure of name. History of Any Multi-Drug Resistant Organisms: MRSA Date of last positivie culture/infection: 11/07/14 MDRO Source:: Scalp Past Surgical History: Appendectomy, Bowel Resection, Heart Catheterization, Heart Catheterization With Stent Additional Past Surgical History / Comment(s): COLECTOMY, RECTUM REMOVED, ELLIOTT CATARACTS removed, ILEOSTOMY, HERNIA SURGERY. Past Anesthesia/Blood Transfusion Reactions: No Reported Reaction Additional Past Anesthesia/Blood Transfusion Reaction / Comment(s): no problems with prior blood transfusions. Date of Last Stent Placement:: 08/01/2023 Past Psychological History: No Psychological Hx Reported Smoking Status: Never smoker Past Alcohol Use History: None Reported Past Drug Use History: None Reported - Past Family History Mother Family Medical History: Cancer Additional Family Medical History / Comment(s): LUNG CANCER. Father Family Medical History: Cancer Additional Family Medical History / Comment(s): MELANOMA/BRAIN CANCER. Medications and Allergies Home Medications Medication Instructions Recorded Confirmed Type Aspirin EC [Ecotrin Low Dose] 81 mg PO DAILY 11/08/18 02/10/24 History Ergocalciferol (Vitamin D2) 1,250 mcg PO Q14D 06/25/20 02/10/24 History [Drisdol (50,000 Iu)] allopurinoL [Zyloprim] 200 mg PO DAILY 10/21/21 02/10/24 History Dapagliflozin Propanediol [Farxiga] 10 mg PO DAILY 11/05/21 02/10/24 History Gabapentin [Neurontin] 100 mg PO HS 06/30/23 02/10/24 History Torsemide [Demadex] 30 mg PO Q2D 06/30/23 02/10/24 History Atorvastatin [Lipitor] 40 mg PO DAILY 07/25/23 02/10/24 History Insulin Aspart [NovoLOG Flexpen] 30 - 40 units SQ AC-TID 08/16/23 02/10/24 History Isosorbide Mononitrate ER [Imdur] 30 mg PO DAILY 08/16/23 02/10/24 History Torsemide [Demadex] 40 mg PO Q2D 08/16/23 02/10/24 History Clopidogrel [Plavix] 75 mg PO DAILY #30 tab 09/01/23 02/10/24 Rx Escitalopram [Lexapro] 10 mg PO DAILY 02/10/24 02/10/24 History Insulin Degludec [Tresiba 50 units SQ HS 02/10/24 02/10/24 History Flextouch U-200 Pen] Pantoprazole [Protonix] 40 mg PO DAILY 02/10/24 02/10/24 History atenoloL [Tenormin] 50 mg PO DAILY 02/10/24 02/10/24 History calcitrioL 0.25 mcg PO WEEKLY 02/10/24 02/10/24 History Allergies Allergy/AdvReac Type Severity Reaction Status Date / Time ibuprofen [From Motrin] Allergy Anaphylaxis Verified 02/10/24 14:02 Physical Exam Vitals: Vital Signs Temp Pulse Pulse Resp BP BP Pulse Ox 02/10/24 07:32 97.7 F 60 16 146/64 98 02/10/24 04:03 97.8 F 51 L 20 154/66 97 02/10/24 03:26 56 L 18 138/55 97 02/10/24 02:10 56 L 121/60 95 02/09/24 22:21 99.7 F H 02/09/24 19:20 99.1 F 72 20 108/44 95 Intake and Output 02/09/24 02/10/24 02/10/24 22:59 06:59 14:59 Other: # Voids 1 Weight 117.934 kg 117.934 kg Results CBC & Chem 7: 02/11/24 06:27 02/11/24 06:22 Labs: Abnormal Lab Results - Last 24 Hours (Table) 02/09/24 02/09/24 02/09/24 Range/Units 21:32 21:32 21:32 WBC 18.5 H (3.8-10.6) k/uL Hgb 12.9 L (13.0-17.5) gm/dL RDW 18.0 H (11.5-15.5) % Neutrophils # 17.0 H (1.3-7.7) k/uL Lymphocytes # 0.6 L (1.0-4.8) k/uL BUN 32 H (9-20) mg/dL Creatinine 1.91 H (0.66-1.25) mg/dL Glucose 128 H (74-99) mg/dL POC Glucose (mg/dL) (70-110) mg/dL Plasma Lactic Acid Cecil (0.7-2.0) mmol/L Alkaline Phosphatase 137 H (38-126) U/L Urine Protein Trace H (Negative) Urine Glucose (UA) 3+ H (Negative) 02/09/24 02/10/24 02/10/24 Range/Units 21:32 01:31 07:18 WBC (3.8-10.6) k/uL Hgb (13.0-17.5) gm/dL RDW (11.5-15.5) % Neutrophils # (1.3-7.7) k/uL Lymphocytes # (1.0-4.8) k/uL BUN (9-20) mg/dL Creatinine (0.66-1.25) mg/dL Glucose (74-99) mg/dL POC Glucose (mg/dL) 139 H (70-110) mg/dL Plasma Lactic Acid Cecil 2.1 H* 2.3 H* (0.7-2.0) mmol/L Alkaline Phosphatase (38-126) U/L Urine Protein (Negative) Urine Glucose (UA) (Negative) Thrombosis Risk Factor Assmnt - Choose All That Apply Any of the Below Risk Factors Present?: Yes Each Factor Represents 1 point: Obesity (BMI >25) Each Risk Factor Represents 2 Points: Age 61-74 years Other congenital or acquired thrombophilia - If yes, enter type in comment: No Thrombosis Risk Factor Assessment Total Risk Factor Score: 3 Thrombosis Risk Factor Assessment Level: Moderate Risk
[2024-02-10 17:25] LABS: Glucose,Whole Blood 215 mg/dL (70-110)
--- NOTE | 2024-02-10 17:27 | CT ---
EXAMINATION TYPE: CT abdomen pelvis wo con DATE OF EXAM: 02/10/2024 COMPARISON: 02/09/2024, 12/10/2023 INDICATION: Mid-Abdominal pain x 2 days with vomiting DLP: 2551.4 mGycm, Automated exposure control for dose reduction was used. CONTRAST: None Study performed with Oral Contrast TECHNIQUE: Axial images were obtained from above the diaphragm to the pubic rami in the axial plane a t 5 mm thick sections. Reconstructed images are reviewed on the computer in the coronal plane. FINDINGS: Limited CT sections are obtained the lung bases. The lung bases are clear. Some coronary artery james cification is noted. CT ABDOMEN: Liver: Normal Spleen: Normal Pancreas: Atrophic Adrenal glands: The adrenal glands are normal. Gallbladder: Gallstones are present. Kidneys: No masses are evident. No hydronephrosis is present. No cysts are present. Aorta: Vascular calcification is within the aorta. Inferior vena cava: Normal. CT PELVIS: Ostomy is in the anterior right hemipelvis. There is a small hypodense collection within t he rectus abdominis muscle measuring 1.4 x 2.4 cm. This was present previously. Seroma could be withi n the differential. Loops of bowel within the abdomen and pelvis are normal. There are loops of bowel which are incom pletely distended or lack oral contrast limiting their evaluation. Appendix: Not identified. Urinary bladder: Normal. Genitourinary structures: Prostate appears normal Osseous structures: No suspicious lytic or sclerotic lesions. IMPRESSION: 1. 1. Cholelithiasis. 2. Stable appearance of a suspected seroma right rectus abdominis muscle adjacent to the ostomy site. 3. Stable appearance of the ostomy loops of bowel within the ostomy [facility], Workstation: [facility], 02/10/2024 5:24 PM
[2024-02-10] MEDS: ENOXAPARIN 40 MG/0.4 ML SYRINGE SQ STA (17:34)
[2024-02-10] MEDS: INSULIN ASPART (NovoLOG) 100 UNIT/ML VIAL SQ SCH (17:34)
[2024-02-10 20:16] LABS: Glucose,Whole Blood 220 mg/dL (70-110)
[2024-02-10] MEDS: GABAPENTIN 100 MG CAP PO SCH (20:24)
--- NOTE | 2024-02-10 23:05 | P.CONS ---
History of Present Illness - Reason for Consult Consult date: 02/10/24 Leukocytosis, fever of unknown origin Requesting physician: Huy Zarate - Chief Complaint Abdominal pain x 1 day - History of Present Illness Patient is a 73-year-old male with a past medical history significant for hypertension hyperlipidemia osteoarthritis reflux diabetes mellitus the patient did have previous history of prostate cancer with radiation and chemo therapy and also have history of ulcerative colitis status post subtotal colectomy and ileostomy that he has for almost 25 years ago patient presented to [facility] ER last night concerning for lower abdominal pain that apparently started the day of presentation to the hospital patient pain started suddenly and has been excruciating with intensity almost 10 out of 10 without any radiation patient felt nauseated and did have an episode of vomiting he did have output into his ileostomy without significant change patient did have a fever of 99.7 F patient was not tachycardic hypotensive or hypoxic he did have a white count of 18.5 with a left shift BUN/creatinine has been mildly elevated he did have elevated lactic acid of 2.1 liver enzymes are normal urine was negative influenza RSV COVID testing was negative patient did have a chest x-ray no acute cardiopulmonary disease he also have a CT of abdominal wellness but without any contrast that was reported negative for acute abnormality, infectious disease was consulted regarding fever of unknown origin and further workup and treatment Review of Systems Positive point and negatives has been mentioned in the HPI, complete review of systems was performed and all other systems are negative Past Medical History Past Medical History: Cancer, Chest Pain / Angina, Diabetes Mellitus, Eye Disorder, GERD/Reflux, Hyperlipidemia, Hypertension, Osteoarthritis (OA), P rostate Disorder, Renal Disease Additional Past Medical History / Comment(s): HX OF ULCERATIVE COLITIS, ileostomy PARASTOMAL HERNIA, PROSTATE CA WITH RADIATION AND CHEMO IN 2020, LOW KIDNEY FUNCTION,Covid Dec 2022, Influenza A Jun 2023, eye condition, unsure of name. History of Any Multi-Drug Resistant Organisms: MRSA Year Discovered:: 11/07/14 MDRO Source:: Scalp Past Surgical History: Appendectomy, Bowel Resection, Heart Catheterization, Heart Catheterization With Stent Additional Past Surgical History / Comment(s): COLECTOMY, RECTUM REMOVED, ELLIOTT CATARACTS removed, ILEOSTOMY, HERNIA SURGERY. Past Anesthesia/Blood Transfusion Reactions: No Reported Reaction Additional Past Anesthesia/Blood Transfusion Reaction / Comm: no problems with prior blood transfusions. Date of Last Stent Placement:: 08/01/2023 Past Psychological History: No Psychological Hx Reported Smoking Status: Never smoker Past Alcohol Use History: None Reported Past Drug Use History: None Reported - Past Family History Mother Family Medical History: Cancer Additional Family Medical History / Comment(s): LUNG CANCER. Father Family Medical History: Cancer Additional Family Medical History / Comment(s): MELANOMA/BRAIN CANCER. Medications and Allergies Home Medications Medication Instructions Recorded Confirmed Type Aspirin EC [Ecotrin Low Dose] 81 mg PO DAILY 11/08/18 02/10/24 History Ergocalciferol (Vitamin D2) 1,250 mcg PO Q14D 06/25/20 02/10/24 History [Drisdol (50,000 Iu)] allopurinoL [Zyloprim] 200 mg PO DAILY 10/21/21 02/10/24 History Dapagliflozin Propanediol [Farxiga] 10 mg PO DAILY 11/05/21 02/10/24 History Gabapentin [Neurontin] 100 mg PO HS 06/30/23 02/10/24 History Torsemide [Demadex] 30 mg PO Q2D 06/30/23 02/10/24 History Atorvastatin [Lipitor] 40 mg PO DAILY 07/25/23 02/10/24 History Insulin Aspart [NovoLOG Flexpen] 30 - 40 units SQ AC-TID 08/16/23 02/10/24 His tory Isosorbide Mononitrate ER [Imdur] 30 mg PO DAILY 08/16/23 02/10/24 History Torsemide [Demadex] 40 mg PO Q2D 08/16/23 02/10/24 History Clopidogrel [Plavix] 75 mg PO DAILY #30 tab 09/01/23 02/10/24 Rx Escitalopram [Lexapro] 10 mg PO DAILY 02/10/24 02/10/24 History Insulin Degludec [Tresiba 50 units SQ HS 02/10/24 02/10/24 History Flextouch U-200 Pen] Pantoprazole [Protonix] 40 mg PO DAILY 02/10/24 02/10/24 History atenoloL [Tenormin] 50 mg PO DAILY 02/10/24 02/10/24 History calcitrioL 0.25 mcg PO WEEKLY 02/10/24 02/10/24 History Allergies Allergy/AdvReac Type Severity Reaction Status Date / Time ibuprofen [From Motrin] Allergy Anaphylaxis Verified 02/10/24 14:02 Physical Exam Vitals: Vital Signs Temp Pulse Pulse Resp BP BP Pulse Ox 02/10/24 07:32 97.7 F 60 16 146/64 98 02/10/24 04:03 97.8 F 51 L 20 154/66 97 02/10/24 03:26 56 L 18 138/55 97 02/10/24 02:10 56 L 121/60 95 02/09/24 22:21 99.7 F H 02/09/24 19:20 99.1 F 72 20 108/44 95 Intake and Output 02/09/24 02/10/24 02/10/24 22:59 06:59 14:59 Other: # Voids 1 Weight 117.934 kg 117.934 kg GENERAL DESCRIPTION: Elderly male lying in bed, no distress. No tachypnea or accessory muscle of respiration use. HEENT: Shows Pallor , no scleral icterus. Oral mucous membrane is dry. No pharyngeal erythema or thrush NECK: Trachea central, no thyromegaly. LUNGS: Unlabored breathing. Clear to auscultation anteriorly. No wheeze or crackle. HEART: S1, S2, regular rate and rhythm. No loud murmur ABDOMEN: Soft, mild distention did have output in his colostomy EXTREMITIES: No edema of feet. SKIN: No rash, no masses palpable. NEUROLOGICAL: The patient is awake, alert, oriented x3, mood and affect normal. Results CBC & Chem 7: 02/09/24 21:32 02/09/24 21:32 Labs: Abnormal Lab Results - Last 24 Hours (Table) 02/09/24 02/09/24 02/09/24 Range/Units 21:32 21:32 21:32 WBC 18.5 H (3.8-10.6) k/uL Hgb 12.9 L (13.0-17.5) gm/dL RDW 18.0 H (11.5-15.5) % Neutrophils # 17.0 H (1.3-7.7) k/uL Lymphocytes # 0.6 L (1.0-4.8) k/uL BUN 32 H (9-20) mg/dL Creatinine 1.91 H (0.66-1.25) mg/dL Glucose 128 H (74-99) mg/dL POC Glucose (mg/dL) (70-110) mg/dL Plasma Lactic Acid Cecil (0.7-2.0) mmol/L Alkaline Phosphatase 137 H (38-126) U/L Urine Protein Trace H (Negative) Urine Glucose (UA) 3+ H (Negative) 02/09/24 02/10/24 02/10/24 Range/Units 21:32 01:31 07:18 WBC (3.8-10.6) k/uL Hgb (13.0-17.5) gm/dL RDW (11.5-15.5) % Neutrophils # (1.3-7.7) k/uL Lymphocytes # (1.0-4.8) k/uL BUN (9-20) mg/dL Creatinine (0.66-1.25) mg/dL Glucose (74-99) mg/dL POC Glucose (mg/dL) 139 H (70-110) mg/dL Plasma Lactic Acid Cecil 2.1 H* 2.3 H* (0.7-2.0) mmol/L Alkaline Phosphatase (38-126) U/L Urine Protein (Negative) Urine Glucose (UA) (Negative) Assessment and Plan (1) Sepsis Current Visit: Yes Status: Acute Code(s): A41.9 - SEPSIS, UNSPECIFIED ORGANISM SNOMED Code(s): 53564543 (2) Leukocytosis Current Visit: Yes Status: Acute Code(s): D72.829 - ELEVATED WHITE BLOOD CELL COUNT, UNSPECIFIED SNOMED Code(s): 469646372 Plan: 1patient presented hospital with sepsis, aspiration or did have a fever elevated white count elevated lactic acid source is likely abdominal in this patient presentation has been mostly lower abdominal pain that has been severe in intensity and likely abdominal source patient CT abdominal pelvis reported negative however will that was done without any contrast that can decrease the sensitivity of this testing elevated cover for the enteric gram-negative both aerobes and anaerobes 2-patient did have elevated creatinine and will be high risk of contrast-induced nephrotoxicity hence we will order CT abdominal pelvis with oral contrast only to evaluate for underlying intra-abdominal pathology. 3-we will empirically start the patient on Zosyn 3.375 g every 8 hours while waiting for the workup to be completed We will follow on clinical condition and cultures to further adjust medication if needed Thank you for this consultation we will follow the patient along with you Dictation was produced using [employer] dictation software. please excuse any gram matical, word or spelling errors. Time with Patient: Greater than 30
[2024-02-11 06:43] LABS: Anisocytosis Slight; Basophils % (A) 0 %; Eosinophils # (A) 0.5 k/uL (0-0.7); Eosinophils % (A) 7 %; HCT 36.5 % (39.0-53.0); HGB 11.3 gm/dL (13.0-17.5); Hypochromasia Marked; Lymphocytes # (A) 0.5 k/uL (1.0-4.8); Lymphocytes % (A) 8 %; MCH 28.7 pg (25.0-35.0); MCHC 30.9 g/dL (31.0-37.0); MCV 92.7 fL (80.0-100.0); Mean Platelet Volume 7.1; Monocytes # (A) 0.5 k/uL (0-1.0); Monocytes % (A) 7 %; Neutrophils % (A) 75 %; Platelet Count 205 k/uL (150-450); RBC 3.93 m/uL (4.30-5.90); WBC 6.7 k/uL (3.8-10.6)
[2024-02-11 06:53] LABS: ALT 15 U/L (4-49); AST 21 U/L (17-59); African American GFR (CKD) 42 (>60 ml/min/1.73 sqM); Albumin 3.4 g/dL (3.5-5.0); Albumin/Globulin Ratio 1.3; Alkaline Phosphatase 111 U/L (38-126); Anion Gap 4 mmol/L; Blood Urea Nitrogen 28 mg/dL (9-20); Calcium 8.6 mg/dL (8.4-10.2); Carbon Dioxide 22 mmol/L (22-30); Chloride 112 mmol/L (98-107); Globulin 2.7 g/dL; Glucose 237 mg/dL (74-99); Non-African American GFR(CKD) 37 (>60 ml/min/1.73 sqM); Potassium 4.6 mmol/L (3.5-5.1); Sodium 138 mmol/L (137-145); Total Bilirubin 0.4 mg/dL (0.2-1.3); Total Protein 6.1 g/dL (6.3-8.2)
[2024-02-11 07:25] LABS: Glucose,Whole Blood 223 mg/dL (70-110)
[2024-02-11] MEDS: allopurinoL 100 MG TAB PO SCH (09:11)
[2024-02-11] MEDS: atenoloL 50 MG TAB PO SCH (09:11)
[2024-02-11] MEDS: DAPAGLIFLOZIN PROPANEDIOL 10 MG TABLET PO SCH (09:11)
[2024-02-11] MEDS: ISOSORBIDE MONONITRATE ER 30 MG TAB.ER.24H PO SCH (09:11)
[2024-02-11] MEDS: ASPIRIN 81 MG PO SCH (09:11)
[2024-02-11] MEDS: PANTOPRAZOLE 40 MG TABLET PO SCH (09:12)
[2024-02-11 12:21] LABS: Glucose,Whole Blood 228 mg/dL (70-110)
--- NOTE | 2024-02-11 13:55 | P.PN ---
Subjective Progress Note Date: 02/11/24 73-year-old male with a past medical history of hypertension, hyperlipidemia, type 2 diabetes, mood disorder, and CAD presents for generalized weakness. Patient reports yesterday started to feel weak and not have as much balance as usual. He reports later he began to have a pounding headache but denies any blurry vision, nausea or vomiting. Patient also denies fever. Patient states he has had an ostomy for 25 years, denies any change in stool output. Patient also reports he has been feeling unbalanced as if the room is spinning and he is going to fall. Per ER note, when was at bedside she reported the patient had been walking abnormally. Patient also denies chest pain, shortness of kishore th, peripheral edema, or urinary complaints. Patient reports since he has been at the hospital he feels back to his normal self with only some tiredness as his only symptom. Initial lab work from the ER was significant for WBC 18.5, hemoglobin 12.9, MCV 91.7, creatinine 1.91, glucose 128, plasma lactate 2.1--> 1.5, alkaline phosphatase 137, UA trace protein and 3+ glucose. Influenza type A and B, RSV, COVID negative. EKG done in the ER showed heart rate of 66 bpm, no ST segment elevation or depression seen, no T-wave inversions seen. Sinus rhythm. ER CXR: No acute cardiopulmonary abnormality. ER CT Head: No acute intracranial process. Atrophy and chronic microvascular ischemic white matter changes. ER CT ABD: No acute abnormality in the abdomen or pelvis. Patient admitted to internal medicine service 02/10. Patient seen and examined. No further episodes of fevers. Leukocytes are improved. Repeat CT abdominal pelvis done showed cholelithiasis, right rectus sheath seroma adjacent to the ostomy site REVIEW OF SYSTEMS: CONSTITUTIONAL: No fever, no malaise,. CARDIOVASCULAR: No chest pain, no palpitations, no syncope. PULMONARY: No shortness of breath, no cough, GASTROINTESTINAL: No diarrhea, no nausea, no vomiting, no abdominal pain. NEUROLOGICAL: No headaches, no weakness, PHYSICAL EXAMINATION: GENERAL: The patient is alert and oriented x3, not in any acute distress. Well developed, well nourished. HEENT: Pupils are round and equally reacting to light. EOMI. No scleral icterus. No conjunctival pallor. Normocephalic, atraumatic. No pharyngeal erythema. No thyromegaly. CARDIOVASCULAR: S1 and S2 present. No murmurs, rubs, or gallops. PULMONARY: Chest is clear to auscultation, no wheezing or crackles. ABDOMEN: Soft, nontender, nondistended, normoactive bowel sounds. No palpable organomegaly. Ostomy seen MUSCULOSKELETAL: No joint swelling or deformity. EXTREMITIES: No cyanosis, clubbing, or pedal edema. NEUROLOGICAL: Gross neurological examination did not reveal any focal deficits. SKIN: No rashes. Assessment and plan #Leukocytosis of unknown origin: Monitor vital signs Monitor CBC Monitor CMP Continue IV Zosyn Continue IV fluids ID following Chronic: #Hypertension: Continue home medication #Diabetes mellitus: On sliding scale Accu-Cheks #Hyperlipidemia: Continue home medication #GERD: Continue home medication Labs and medication were reviewed.. Continue same treatment. Continue with symptomatic treatment. Resume home medication. Monitor labs and vitals. DVT and GI prophylaxis. Further recommendations as per clinical course of the patient Dictation was produced using [employer] dictation software. please excuse any grammatical, word or spelling errors. Objective - Vital Signs Vital signs: Vital Signs Temp 97.9 F 02/11/24 13:35 Pulse 55 L 02/11/24 13:35 Resp 18 02/11/24 13:35 BP 142/55 02/11/24 13:35 Pulse Ox 97 02/11/24 13:35 FiO2 Intake & Output 02/10/24 02/11/24 02/11/24 18:59 06:59 18:59 Intake Total 900 1480 Balance 900 1480 Intake: Intake, IV Titration 900 1000 Amount Piperacillin-Tazobactam 3 100 .375 gm In Sodium Chloride 0.9% 100 ml @ 25 mls/hr IVPB Q8HR JOSÉ Rx# :[id number] Sodium Chloride 0.9% 1, 900 900 000 ml @ 75 mls/hr IV . [id number] JOSÉ Rx#:[id number] Oral 480 Other: Voiding Method Toilet Toilet Toilet # Voids 3 2 # Bowel Movements 3 - Labs CBC & Chem 7: 02/11/24 06:27 02/11/24 06:22 Labs: Abnormal Lab Results - Last 24 Hours (Table) 02/10/24 02/10/24 02/10/24 Range/Units 10:30 10:30 17:23 RBC (4.30-5.90) m/uL Hgb (13.0-17.5) gm/dL Hct (39.0-53.0) % MCHC (31.0-37.0) g/dL RDW (11.5-15.5) % Lymphocytes # (1.0-4.8) k/uL ESR 74 H (0-20) mm/Hr Chloride (98-107) mmol/L BUN (9-20) mg/dL Creatinine (0.66-1.25) mg/dL Glucose (74-99) mg/dL POC Glucose (mg/dL) 215 H (70-110) mg/dL Total Protein (6.3-8.2) g/dL Albumin (3.5-5.0) g/dL Procalcitonin 0.90 H (0.02-0.50) ng/mL 02/10/24 02/11/24 02/11/24 Range/Units 20:14 06:22 06:27 RBC 3.93 L (4.30-5.90) m/uL Hgb 11.3 L (13.0-17.5) gm/dL Hct 36.5 L (39.0-53.0) % MCHC 30.9 L (31.0-37.0) g/dL RDW 18.0 H (11.5-15.5) % Lymphocytes # 0.5 L (1.0-4.8) k/uL ESR (0-20) mm/Hr Chloride 112 H (98-107) mmol/L BUN 28 H (9-20) mg/dL Creatinine 1.79 H (0.66-1.25) mg/dL Glucose 237 H (74-99) mg/dL POC Glucose (mg/dL) 220 H (70-110) mg/dL Total Protein 6.1 L (6.3-8.2) g/dL Albumin 3.4 L (3.5-5.0) g/dL Procalcitonin (0.02-0.50) ng/mL 02/11/24 02/11/24 Range/Units 07:04 12:09 RBC (4.30-5.90) m/uL Hgb (13.0-17.5) gm/dL Hct (39.0-53.0) % MCHC (31.0-37.0) g/dL RDW (11.5-15.5) % Lymphocytes # (1.0-4.8) k/uL ESR (0-20) mm/Hr Chloride (98-107) mmol/L BUN (9-20) mg/dL Creatinine (0.66-1.25) mg/dL Glucose (74-99) mg/dL POC Glucose (mg/dL) 223 H 228 H (70-110) mg/dL Total Protein (6.3-8.2) g/dL Albumin (3.5-5.0) g/dL Procalcitonin (0.02-0.50) ng/mL
--- NOTE | 2024-02-11 15:43 | P.PN ---
Subjective Progress Note Date: 02/11/24 Principal diagnosis: Reason for follow-up is fever and leukocytosis Patient is a 73-year-old male with a past medical history significant for hypertension hyperlipidemia osteoarthritis reflux diabetes mellitus the patient did have previous history of prostate cancer with radiation and chemotherapy and also have history of ulcerative colitis status post subtotal colectomy and ileostomy that he has for almost 25 years ago patient presented to [facility] ER for evaluation of abdominal pain that was sudden onset patient also have low-grade fever elevated white count prompted this consultation. On today's evaluation that is 02/11/2024,the patient did have resolution of his fever and is afebrile this morning, patient is on room air not requiring supplemental oxygen and denies any shortness of breath no chest pain or cough.Patient denies having any nausea or vomiting, did have improvement in the lower abdominal pain down to 2 out of 10 comparing to 9-20 when he came in feeling better and has been insisting on going home. Patient white count is down to 6.7, creatinine is 1.79 hemoglobin slightly down to 11.3 from a hemoglobin of 12.[address] abdominal pelvis did show possible rectus sheath hematoma which was missed on initial CAT scan Objective - Vital Signs Vital signs: Vital Signs Temp 97.9 F 02/11/24 13:35 Pulse 55 L 02/11/24 13:35 Resp 18 02/11/24 13:35 BP 142/55 02/11/24 13:35 Pulse Ox 97 02/11/24 13:35 FiO2 Intake & Output 02/10/24 02/11/24 02/11/24 18:59 06:59 18:59 Intake Total 900 1480 Balance 900 1480 Intake: Intake, IV Titration 900 1000 Amount Piperacillin-Tazobactam 3 100 .375 gm In Sodium Chloride 0.9% 100 ml @ 25 mls/hr IVPB Q8HR JOS[facility] Rx# :[id number] Sodium Chloride 0.9% 1, 900 900 000 ml @ 75 mls/hr IV . [id number] JOSÉ Rx#:[id number] Oral 480 Other: Voiding Method Toilet Toilet Toilet # Voids 3 2 # Bowel Movements 3 - Exam GENERAL DESCRIPTION: An elderly male up in bed in no distress RESPIRATORY SYSTEM: Unlabored breathing , decreased breath sounds at bases HEART: S1 S2 regular rate and rhythm , ABDOMEN: Soft , no tenderness EXTREMITIES: No edema feet - Labs CBC & Chem 7: 02/11/24 06:27 02/11/24 06:22 Labs: Abnormal Lab Results - Last 24 Hours (Table) 02/10/24 02/10/24 02/10/24 Range/Units 10:30 10:30 17:23 RBC (4.30-5.90) m/uL Hgb (13.0-17.5) gm/dL Hct (39.0-53.0) % MCHC (31.0-37.0) g/dL RDW (11.5-15.5) % Lymphocytes # (1.0-4.8) k/uL ESR 74 H (0-20) mm/Hr Chloride (98-107) mmol/L BUN (9-20) mg/dL Creatinine (0.66-1.25) mg/dL Glucose (74-99) mg/dL POC Glucose (mg/dL) 215 H (70-110) mg/dL Total Protein (6.3-8.2) g/dL Albumin (3.5-5.0) g/dL Procalcitonin 0.90 H (0.02-0.50) ng/mL 02/10/24 02/11/24 02/11/24 Range/Units 20:14 06:22 06:27 RBC 3.93 L (4.30-5.90) m/uL Hgb 11.3 L (13.0-17.5) gm/dL Hct 36.5 L (39.0-53.0) % MCHC 30.9 L (31.0-37.0) g/dL RDW 18.0 H (11.5-15.5) % Lymphocytes # 0.5 L (1.0-4.8) k/uL ESR (0-20) mm/Hr Chloride 112 H (98-107) mmol/L BUN 28 H (9-20) mg/dL Creatinine 1.79 H (0.66-1.25) mg/dL Glucose 237 H (74-99) mg/dL POC Glucose (mg/dL) 220 H (70-110) mg/dL Total Protein 6.1 L (6.3-8.2) g/dL Albumin 3.4 L (3.5-5.0) g/dL Procalcitonin (0.02-0.50) ng/mL 02/11/24 02/11/24 Range/Units 07:04 12:09 RBC (4.30-5.90) m/uL Hgb (13.0-17.5) gm/dL Hct (39.0-53.0) % MCHC (31.0-37.0) g/dL RDW (11.5-15.5) % Lymphocytes # (1.0-4.8) k/uL ESR (0-20) mm/Hr Chloride (98-107) mmol/L BUN (9-20) mg/dL Creatinine (0.66-1.25) mg/dL Glucose (74-99) mg/dL POC Glucose (mg/dL) 223 H 228 H (70-110) mg/dL Total Protein (6.3-8.2) g/dL Albumin (3.5-5.0) g/dL Procalcitonin (0.02-0.50) ng/mL Assessment and Plan (1) Sepsis Current Visit: Yes Status: Acute Code(s): A41.9 - SEPSIS, UNSPECIFIED ORGANISM SNOMED Code(s): 18132189 (2) Leukocytosis Current Visit: Yes Status: Acute Code(s): D72.829 - ELEVATED WHITE BLOOD CELL COUNT, UNSPECIFIED SNOMED Code(s): 261134067 Plan: 1patient presented hospital with sepsis, aspiration or did have a fever elevated white count elevated lactic acid source is likely abdominal in this patient presentation has been mostly lower abdominal pain that has been severe in intensity and likely abdominal source patient CT abdominal pelvis reported negative however will that was done without any contrast that can decrease the sensitivity of this testing elevated cover for the enteric gram-negative both aerobes and anaerobes 2-patient did have elevated creatinine and will be high risk of contrast-induced nephrotoxicity. 3repeat CT abdominal pelvis did not show any evidence of rectus sheath hematoma could have etiology of his symptoms he did have slight drop in hemoglobin patient has been advised to stay in the hospital is a 24-hour to make sure no further drop in his hemoglobin and we will also discontinue his antibiotic today to make sure no recurrence of any fever or worsening white count after discontinuation of his antibiotics patient did agree with the plan care was discussed with admitting physician Dictation was produced using [employer] dictation software. please excuse any grammatical, word or spelling errors. Time with Patient: Less than 30
[2024-02-11 17:27] LABS: Glucose,Whole Blood 204 mg/dL (70-110)
[2024-02-11 20:23] LABS: Glucose,Whole Blood 213 mg/dL (70-110)
[2024-02-12 07:07] LABS: Glucose,Whole Blood 142 mg/dL (70-110)
[2024-02-12 08:34] LABS: Basophils # (A) 0.06 X 10*3/uL (0.00-0.10); Basophils % (A) 0.6 %; Eosinophils # (A) 0.65 X 10*3/uL (0.04-0.35); Eosinophils % (A) 6.4 %; HCT 36.6 % (39.6-50.0); HGB 11.2 g/dL (13.0-17.0); Lymphocytes # (A) 0.52 X 10*3/uL (0.90-5.00); Lymphocytes % (A) 5.1 %; MCH 28.1 pg (27.0-32.0); MCHC 30.6 g/dL (32.0-37.0); MCV 91.7 FL (80.0-97.0); Mean Platelet Volume 10.4 FL (9.5-12.2); Monocytes # (A) 0.68 X 10*3/uL (0.20-1.00); Monocytes % (A) 6.7 %; NRBC Per 100 WBC 0 X 10*3/uL (0.00-0.01); Neutrophils # (A) 8.26 X 10*3/uL (1.80-7.70); Neutrophils % (A) 80.9 %; Platelet Count 200 X 10*3/uL (140-440); RBC 3.99 X 10*6/uL (4.40-5.60); RDW 18.7 % (11.5-14.5)
[2024-02-12 08:47] LABS: BUN/Creat Ratio 14.87 Ratio (12.00-20.00); Blood Urea Nitrogen 22.3 mg/dL (9.0-27.0); Calcium 8.8 mg/dL (8.7-10.3); Carbon Dioxide 21.6 mmol/L (21.6-31.8); Chloride 110 mmol/L (96-109); Glucose 171 mg/dL (70-110); Potassium 4.2 mmol/L (3.5-5.5); Sodium 141 mmol/L (135-145)
[2024-02-12] MEDS: ONDANSETRON 4 MG/2 ML VIAL IVP PRN (08:50)
[2024-02-12 12:08] LABS: Glucose,Whole Blood 218 mg/dL (70-110)
[2024-02-12] MEDS: amLODIPine 5 MG TAB PO SCH (12:45)
[2024-02-12] MEDS: NEOMYCIN-BACITRACIN-POLY OINT 14 GM TUBE TOPICAL SCH (12:45)
--- NOTE | 2024-02-12 12:48 | P.PN ---
Subjective Progress Note Date: 02/12/24 Principal diagnosis: Reason for follow-up is fever and leukocytosis Patient is a 73-year-old male with a past medical history significant for hypertension hyperlipidemia osteoarthritis reflux diabetes mellitus the patient did have previous history of prostate cancer with radiation and chemotherapy and also have history of ulcerative colitis status post subtotal colectomy and ileostomy that he has for almost 25 years ago patient presented to [facility] ER for evaluation of abdominal pain that was sudden onset patient also have low-grade fever elevated white count prompted this consultation. On today's evaluation that is 02/12/2024, the patient continues to be afebrile, the patient is on room air and breathing comfortably, the Pt denies having any chest pain or cough, the patient lower abdominal pain significantly decreased in intensity denies any nausea no vomiting did have oatmeal in his ileostomy. Patient white count is 10.20 hemoglobin is 11.2 creatinine is 1.5 blood culture have been negative Objective - Vital Signs Vital signs: Vital Signs Temp 98.3 F 02/12/24 07:15 Pulse 68 02/12/24 07:15 Resp 16 02/12/24 07:15 BP 150/56 02/12/24 07:15 Pulse Ox 93 L 02/12/24 07:15 FiO2 Intake & Output 02/11/24 02/12/24 02/12/24 18:59 06:59 18:59 Intake Total 1080 480 Balance 1080 480 Intake: Oral 1080 480 Other: Voiding Method Toilet # Voids 2 3 # Bowel Movements 2 - Exam GENERAL DESCRIPTION: An elderly male up in bed in no distress RESPIRATORY SYSTEM: Unlabored breathing , decreased breath sounds at bases HEART: S1 S2 regular rate and rhythm , ABDOMEN: Soft , no tenderness EXTREMITIES: No edema feet - Labs CBC & Chem 7: 02/12/24 04:30 02/12/24 04:30 Labs: Abnormal Lab Results - Last 24 Hours (Table) 02/11/24 02/11/24 02/11/24 Range/Units 12:09 17:05 20:22 WBC (4.50-10.00) X 10*3/uL RBC (4.40-5.60) X 10*6/uL Hgb (13.0-17.0) g/dL Hct (39.6-50.0) % MCHC (32.0-37.0) g/dL RDW (11.5-14.5) % Neutrophils # (1.80-7.70) X 10*3/uL Lymphocytes # (0.90-5.00) X 10*3/uL Eosinophils # (0.04-0.35) X 10*3/uL Chloride (96-109) mmol/L Est GFR (CKD-EPI) (>=60) Glucose (70-110) mg/dL POC Glucose (mg/dL) 228 H 204 H 213 H (70-110) mg/dL C-Reactive Protein (0.00-0.80) mg/dL 02/12/24 02/12/24 02/12/24 Range/Units 04:30 04:30 07:06 WBC 10.20 H (4.50-10.00) X 10*3/uL RBC 3.99 L (4.40-5.60) X 10*6/uL Hgb 11.2 L (13.0-17.0) g/dL Hct 36.6 L (39.6-50.0) % MCHC 30.6 L (32.0-37.0) g/dL RDW 18.7 H (11.5-14.5) % Neutrophils # 8.26 H (1.80-7.70) X 10*3/uL Lymphocytes # 0.52 L (0.90-5.00) X 10*3/uL Eosinophils # 0.65 H (0.04-0.35) X 10*3/uL Chloride 110 H (96-109) mmol/L Est GFR (CKD-EPI) 49 L (>=60) Glucose 171 H (70-110) mg/dL POC Glucose (mg/dL) 142 H (70-110) mg/dL C-Reactive Protein 3.00 H (0.00-0.80) mg/dL Microbiology - Last 24 Hours (Table) 02/10/24 10:30 Blood Culture - Preliminary Blood Assessment and Plan (1) Sepsis Current Visit: Yes Status: Acute Code(s): A41.9 - SEPSIS, UNSPECIFIED ORGANISM SNOMED Code(s): 70977630 (2) Leukocytosis Current Visit: Yes Status: Acute Code(s): D72.829 - ELEVATED WHITE BLOOD CELL COUNT, UNSPECIFIED SNOMED Code(s): 647116858 Plan: 1patient presented hospital with sepsis, aspiration or did have a fever elevated white count elevated lactic acid source is likely abdominal in this patient presentation has been mostly lower abdominal pain that has been severe in intensity and likely abdominal source patient CT abdominal pelvis reported negative however will that was done without any contrast that can decrease the sensitivity of this testing elevated cover for the enteric gram-negative both aerobes and anaerobes 2-patient did have elevated creatinine and will be high risk of contrast-induced nephrotoxicity. 3repeat CT abdominal pelvis did show evidence of rectus sheath hematoma could have etiology of his symptoms, the patient did not have any significant drop in his hemoglobin compared to yesterday and no recurrence of fever after his antibiotic were discussed yesterday more likely representing hematoma than infection as recommended no antibiotic on discharge patient advised if any worsening abdominal pain fever comes back he needs to come back to the hospital Dictation was produced using [employer] dictation software. please excuse any grammatical, word or spelling errors. Time with Patient: Less than 30
--- NOTE | 2024-02-12 13:13 | P.GSCN ---
History of Present Illness Consult date: 02/12/24 History of present illness: CHIEF COMPLAINT: Abdominal pain and weakness HISTORY OF PRESENT ILLNESS: This is a 73-year-old male who presented with weakness and headache. He also reports having abdominal pain mostly across lower abdomen for about a year. He reports the pain did get worse on Monday and he came into the ER for further evaluation. Patient reports having some vomiting on Monday and then a small emesis this morning. He reports having normal amount of stool through his ileostomy. Patient has a known history of ulcerative colitis with an end ileostomy 25 years ago and then a year later had his rectum removed. Also surgical history includes appendectomy and ventral hernia repair. Patient did have epigastric tenderness on exam. Gallstones were noted on the CAT scan. Patient has known coronary artery disease and had cardiac stents placed in July for first 2023. Last dose of Plavix was this morning. Surgical service has been consulted in regards to gallstones. PAST MEDICAL HISTORY: Ulcerative colitis, prostate cancer with radiation and chemo in 2020, Diabetes Mellitus, Eye Disorder, GERD/Reflux, Hyperlipidemia, Hypertension, Osteoar thritis (OA), Prostate Disorder, Renal Disease, coronary artery disease PAST SURGICAL HISTORY: Appendectomy, Bowel Resection, Heart Catheterization, Heart Catheterization With Stent, colectomy with ileostomy MEDICATIONS: See below ALLERGIES: See below SOCIAL HISTORY: No illicit drug use. REVIEW OF SYSTEMS: CONSTITUTIONAL: Denies fever or chills. HEENT: Denies blurred vision, vision changes, or eye pain. Denies hemoptysis CARDIOVASCULAR: Denies chest pain or pressure. RESPIRATORY: No shortness of breath. GASTROINTESTINAL: See HPI for pertinent findings HEMATOLOGIC: Denies bleeding disorders. GENITOURINARY: Denies any blood in urine or increased urinary frequency. SKIN: Denies pruitis. Denies rash. PHYSICAL EXAM: VITAL SIGNS: Reviewed GENERAL: Well-developed in no acute distress. HEENT: No sclera icterus. Extraocular movements grossly intact. Moist buccal mucosa. Head is atraumatic, normocephalic. No nasal drainage. ABDOMEN: Soft. Obese. Nondistended. Tenderness to palpation epigastric area. Ileostomy on the right side of the abdomen with stool. Nontender. NEUROLOGIC: Alert and oriented. Cranial nerves II through XII grossly intact. LABORATORY DATA: WBC 18.5 down to 6.7 now at 10.2 Hgb 11.2 platelets 200 Sodium 141 potassium 4.2 creatinine 1.5 Lactic acid 2.1 down to 1.5 IMAGING: CT scan abdomen pelvis without contrast reports no acute abnormality CT scan abdomen pelvis with oral contrast reports cholelithiasis. Stable appearance of suspected seroma right rectus abdominis muscle adjacent to the ostomy site. Stable appearance of ostomy loops of bowel within the ostomy ASSESSMENT: 1. Abdominal pain 2. Cholelithiasis 3. Suspected seroma right rectus abdominis muscle adjacent to the ostomy site PLAN: -Follow-up on abdominal ultrasound results -Further recommendations forthcoming -Continue supportive care Physician Supervisor [employer] note has been reviewed by physician. Signing provider agrees with the documented findings, assessment, and plan of care. Past Medical History Past Medical History: Cancer, Chest Pain / Angina, Diabetes Mellitus, Eye Disorder, GERD/Reflux, Hyperlipidemia, Hypertension, Osteoarthritis (OA), Prostate Disorder, Renal Disease Additional Past Medical History / Comment(s): HX OF ULCERATIVE COLITIS, ileostomy PARASTOMAL HERNIA, PROSTATE CA WITH RADIATION AND CHEMO IN 2020, LOW KIDNEY FUNCTION,Covid Dec 2022, Influenza A Jun 2023, eye condition, unsure of name. History of Any Multi-Drug Resistant Organisms: MRSA Year Discovered:: 11/07/14 MDRO Source:: Scalp Past Surgical History: Appendectomy, Bowel Resection, Heart Catheterization, Heart Catheterization With Stent Additional Past Surgical History / Comment(s): COLECTOMY, RECTUM REMOVED, ELLIOTT CATARACTS removed, ILEOSTOMY, HERNIA SURGERY. Past Anesthesia/Blood Transfusion Reactions: No Reported Reaction Additional Past Anesthesia/Blood Transfusion Reaction / Comm: no problems with prior blood transfusions. Date of Last Stent Placement:: 08/01/2023 Past Psychological History: No Psychological Hx Reported Smoking Status: Never smoker Past Alcohol Use History: None Reported Past Drug Use History: None Reported - Past Family History Mother Family Medical History: Cancer Additional Family Medical History / Comment(s): LUNG CANCER. Father Family Medical History: Cancer Additional Family Medical History / Comment(s): MELANOMA/BRAIN CANCER. Medications and Allergies Home Medications Medication Instructions Recorded Confirmed Type Aspirin EC [Ecotrin Low Dose] 81 mg PO DAILY 11/08/18 02/10/24 History Ergocalciferol (Vitamin D2) 1,250 mcg PO Q14D 06/25/20 02/10/24 History [Drisdol (50,000 Iu)] allopurinoL [Zyloprim] 200 mg PO DAILY 10/21/21 02/10/24 History Dapagliflozin Propanediol [Farxiga] 10 mg PO DAILY 11/05/21 02/10/24 History Gabapentin [Neurontin] 100 mg PO HS 06/30/23 02/10/24 History Torsemide [Demadex] 30 mg PO Q2D 06/30/23 02/10/24 History Atorvastatin [Lipitor] 40 mg PO DAILY 07/25/23 02/10/24 History Insulin Aspart [NovoLOG Flexpen] 30 - 40 units SQ AC-TID 08/16/23 02/10/24 History Isosorbide Mononitrate ER [Imdur] 30 mg PO DAILY 08/16/23 02/10/24 History Torsemide [Demadex] 40 mg PO Q2D 08/16/23 02/10/24 History Clopidogrel [Plavix] 75 mg PO DAILY #30 tab 09/01/23 02/10/24 Rx Escitalopram [Lexapro] 10 mg PO DAILY 02/10/24 02/10/24 History Insulin Degludec [Tresiba 50 units SQ HS 02/10/24 02/10/24 History Flextouch U-200 Pen] Pantoprazole [Protonix] 40 mg PO DAILY 02/10/24 02/10/24 History atenoloL [Tenormin] 50 mg PO DAILY 02/10/24 02/10/24 History calcitrioL 0.25 mcg PO WEEKLY 02/10/24 02/10/24 History Allergies Allergy/AdvReac Type Severity Reaction Status Date / Time ibuprofen [From Motrin] Allergy Anaphylaxis Verified 02/10/24 14:02 Surgical - Exam Vital Signs Temp Pulse Resp BP Pulse Ox 99.1 F 72 20 108/44 95 02/09/24 19:20 02/09/24 19:20 02/09/24 19:20 02/09/24 19:20 02/09/24 19:20 Results - Labs 02/12/24 04:30 02/12/24 04:30 Abnormal Lab Results - Last 24 Hours (Table) 02/11/24 02/11/24 02/12/24 Range/Units 17:05 20:22 04:30 WBC 10.20 H (4.50-10.00) X 10*3/uL RBC 3.99 L (4.40-5.60) X 10*6/uL Hgb 11.2 L (13.0-17.0) g/dL Hct 36.6 L (39.6-50.0) % MCHC 30.6 L (32.0-37.0) g/dL RDW 18.7 H (11.5-14.5) % Neutrophils # 8.26 H (1.80-7.70) X 10*3/uL Lymphocytes # 0.52 L (0.90-5.00) X 10*3/uL Eosinophils # 0.65 H (0.04-0.35) X 10*3/uL Chloride (96-109) mmol/L Est GFR (CKD-EPI) (>=60) Glucose (70-110) mg/dL POC Glucose (mg/dL) 204 H 213 H (70-110) mg/dL C-Reactive Protein (0.00-0.80) mg/dL 02/12/24 02/12/24 02/12/24 Range/Units 04:30 07:06 12:07 WBC (4.50-10.00) X 10*3/uL RBC (4.40-5.60) X 10*6/uL Hgb (13.0-17.0) g/dL Hct (39.6-50.0) % MCHC (32.0-37.0) g/dL RDW (11.5-14.5) % Neutrophils # (1.80-7.70) X 10*3/uL Lymphocytes # (0.90-5.00) X 10*3/uL Eosinophils # (0.04-0.35) X 10*3/uL Chloride 110 H (96-109) mmol/L Est GFR (CKD-EPI) 49 L (>=60) Glucose 171 H (70-110) mg/dL POC Glucose (mg/dL) 142 H 218 H (70-110) mg/dL C-Reactive Protein 3.00 H (0.00-0.80) mg/dL Microbiology - Last 24 Hours (Table) 02/10/24 10:30 Blood Culture - Preliminary Blood Diabetes panel 02/12/24 Range/Units 04:30 Sodium 141 (135-145) mmol/L Potassium 4.2 (3.5-5.5) mmol/L Chloride 110 H (96-109) mmol/L Carbon Dioxide 21.6 (21.6-31.8) mmol/L BUN 22.3 (9.0-27.0) mg/dL Creatinine 1.5 (0.6-1.5) mg/dL Glucose 171 H (70-110) mg/dL Calcium 8.8 (8.7-10.3) mg/dL Calcium panel 02/12/24 Range/Units 04:30 Calcium 8.8 (8.7-10.3) mg/dL Pituitary panel 02/12/24 Range/Units 04:30 Sodium 141 (135-145) mmol/L Potassium 4.2 (3.5-5.5) mmol/L Chloride 110 H (96-109) mmol/L Carbon Dioxide 21.6 (21.6-31.8) mmol/L BUN 22.3 (9.0-27.0) mg/dL Creatinine 1.5 (0.6-1.5) mg/dL Glucose 171 H (70-110) mg/dL Calcium 8.8 (8.7-10.3) mg/dL Adrenal panel 02/12/24 Range/Units 04:30 Sodium 141 (135-145) mmol/L Potassium 4.2 (3.5-5.5) mmol/L Chloride 110 H (96-109) mmol/L Carbon Dioxide 21.6 (21.6-31.8) mmol/L BUN 22.3 (9.0-27.0) mg/dL Creatinine 1.5 (0.6-1.5) mg/dL Glucose 171 H (70-110) mg/dL Calcium 8.8 (8.7-10.3) mg/dL
--- NOTE | 2024-02-12 14:59 | US ---
EXAMINATION TYPE: US gallbladder DATE OF EXAM: 02/12/2024 COMPARISON: None CLINICAL INDICATION: Male, 73 years old with history of choly; CT showed gallstones. TECHNIQUE: Grayscale and color Doppler imaging of the right upper quadrant was performed. FINDINGS: EXAM MEASUREMENTS: Liver Length: 15.8 cm Gallbladder Wall: 0.2 cm CBD: 0.5 cm Right Kidney: 10.1 x 4.1 x 5.7 cm SHANK SORTER NOTES:Suboptimal due to overlying bowel gas Pancreas: Obscured by bowel gas Liver: Limited right lobe visualization, scanned through ribs. No prominent masses or lesions seen. Gallbladder: multiple echogenic foci Evidence for sonographic Freitas's sign: neg CBD: wnl in size, limited Right Kidney: No prominent hydronephrosis or masses seen IMPRESSION: Cholelithiasis without evidence of acute cholecystitis [facility], Workstation: [facility], 02/12/2024 2:57 PM
--- NOTE | 2024-02-12 17:04 | P.PN ---
Subjective 73-year-old male with a past medical history of hypertension, hyperlipidemia, type 2 diabetes, mood disorder, and CAD presents for generalized weakness. Patient reports yesterday started to feel weak and not have as much balance as usual. He reports later he began to have a pounding headache but denies any blurry vision, nausea or vomiting. Patient also denies fever. Patient states he has had an ostomy for 25 years, denies any change in stool output. Patient also reports he has been feeling unbalanced as if the room is spinning and he is going to fall. Per ER note, when was at bedside she reported the patient had been walking abnormally. Patient also denies chest pain, shortness of breath, peripheral edema, or urinary complaints. Patient reports since he has been at the hospital he feels back to his normal self with only some tiredness as his only symptom. Initial lab work from the ER was significant for WBC 18.5, hemoglobin 12.9, MCV 91.7, creatinine 1.91, glucose 128, plasma lactate 2.1--> 1.5, alkaline phosphatase 137, UA trace protein and 3+ glucose. Influenza type A and B, RSV, COVID negative. EKG done in the ER showed heart rate of 66 bpm, no ST segment elevation or depression seen, no T-wave inversions seen. Sinus rhythm. ER CXR: No acute cardiopulmonary abnormality. ER CT Head: No acute intracranial process. Atrophy and chronic microvascular ischemic white matter changes. ER CT ABD: No acute abnormality in the abdomen or pelvis. Patient admitted to internal medicine service 02/10. Patient seen and examined. No further episodes of fevers. Leukocytes are improved. Repeat CT abdominal pelvis done showed cholelithiasis, right rectus sheath seroma adjacent to the ostomy site 02/11: Patient seen at bedside. No significant overnight events. Patient reports this morning he has had a headache and some nausea. Leukocytes continue to improve. Wound on the left lower extremity, with surrounding erythema. REVIEW OF SYSTEMS: CONSTITUTIONAL: No fever, no malaise,. CARDIOVASCULAR: No chest pain, no palpitations, no syncope. PULMONARY: No shortness of breath, no cough, GASTROINTESTINAL: No diarrhea, no nausea, no vomiting, no abdominal pain. NEUROLOGICAL: No headaches, no weakness, PHYSICAL EXAMINATION: GENERAL: The patient is alert and oriented x3, not in any acute distress. Well developed, well nourished. HEENT: Pupils are round and equally reacting to light. EOMI. No scleral icterus. No conjunctival pallor. Normocephalic, atraumatic. No pharyngeal erythema. No th yromegaly. CARDIOVASCULAR: S1 and S2 present. No murmurs, rubs, or gallops. PULMONARY: Chest is clear to auscultation, no wheezing or crackles. ABDOMEN: Soft, nontender, nondistended, normoactive bowel sounds. No palpable organomegaly. Ostomy seen MUSCULOSKELETAL: No joint swelling or deformity. EXTREMITIES: No cyanosis, clubbing, or pedal edema. NEUROLOGICAL: Gross neurological examination did not reveal any focal deficits. SKIN: No rashes. Assessment and plan: Acute: #Leukocytosis of unknown origin: Monitor vital signs Monitor CBC Monitor CMP Continue IV Zosyn Continue IV fluids ID following Wound on the left lower extremity with surrounding erythema, will start antibiotic triple therapy topical, continue to monitor Chronic: #Hypertension: Continue home medication Added Norvasc 5 mg p.o. daily for better control #Diabetes mellitus: On sliding scale Accu-Cheks #Hyperlipidemia: Continue home medication #GERD: Continue home medication Labs and medication were reviewed.. Continue same treatment. Continue with symptomatic treatment. Resume home medication. Monitor labs and vitals. DVT and GI prophylaxis. Further recommendations as per clinical course of the patient Dictation was produced using [employer] dictation software. please excuse any grammatical, word or spelling errors. Objective - Vital Signs Vital signs: Vital Signs Temp 98.0 F 02/12/24 12:54 Pulse 68 02/12/24 12:54 Resp 16 02/12/24 12:54 BP 136/60 02/12/24 12:54 Pulse Ox 98 02/12/24 12:54 FiO2 Intake & Output 02/11/24 02/12/24 02/12/24 18:59 06:59 18:59 Intake Total 1080 1560 Output Total 1 Balance 1080 1559 Intake: Oral 1080 1560 Output: Stool 1 Other: Voiding Method Toilet Toilet # Voids 2 3 4 # Bowel Movements 2 - Labs CBC & Chem 7: 02/12/24 04:30 02/12/24 04:30 Labs: Abnormal Lab Results - Last 24 Hours (Table) 02/11/24 02/11/24 02/12/24 Range/Units 17:05 20:22 04:30 WBC 10.20 H (4.50-10.00) X 10*3/uL RBC 3.99 L (4.40-5.60) X 10*6/uL Hgb 11.2 L (13.0-17.0) g/dL Hct 36.6 L (39.6-50.0) % MCHC 30.6 L (32.0-37.0) g/dL RDW 18.7 H (11.5-14.5) % Neutrophils # 8.26 H (1.80-7.70) X 10*3/uL Lymphocytes # 0.52 L (0.90-5.00) X 10*3/uL Eosinophils # 0.65 H (0.04-0.35) X 10*3/uL Chloride (96-109) mmol/L Est GFR (CKD-EPI) (>=60) Glucose (70-110) mg/dL POC Glucose (mg/dL) 204 H 213 H (70-110) mg/dL C-Reactive Protein (0.00-0.80) mg/dL 02/12/24 02/12/24 02/12/24 Range/Units 04:30 07:06 12:07 WBC (4.50-10.00) X 10*3/uL RBC (4.40-5.60) X 10*6/uL Hgb (13.0-17.0) g/dL Hct (39.6-50.0) % MCHC (32.0-37.0) g/dL RDW (11.5-14.5) % Neutrophils # (1.80-7.70) X 10*3/uL Lymphocytes # (0.90-5.00) X 10*3/uL Eosinophils # (0.04-0.35) X 10*3/uL Chloride 110 H (96-109) mmol/L Est GFR (CKD-EPI) 49 L (>=60) Glucose 171 H (70-110) mg/dL POC Glucose (mg/dL) 142 H 218 H (70-110) mg/dL C-Reactive Protein 3.00 H (0.00-0.80) mg/dL Microbiology - Last 24 Hours (Table) 02/10/24 10:30 Blood Culture - Preliminary Blood
[2024-02-12 17:12] LABS: Glucose,Whole Blood 146 mg/dL (70-110)
[2024-02-12 20:27] LABS: Glucose,Whole Blood 243 mg/dL (70-110)
[2024-02-12] MEDS: INSULIN DETEMIR (LEVEMIR) 100 UNIT/ML SYR SQ SCH (21:52)
[2024-02-13 02:27] VITALS: PULSE 63
[2024-02-13 07:29] LABS: Glucose,Whole Blood 159 mg/dL (70-110)
[2024-02-13 08:13] VITALS: BP 153/67; RESP 19; TEMP 98.6
--- NOTE | 2024-02-13 12:22 | P.PN ---
Subjective Progress Note Date: 02/13/24 CHIEF COMPLAINT: Abdominal pain and weakness HISTORY OF PRESENT ILLNESS: Patient reports his right upper quadrant abdominal pain has improved. He is tolerating diet. Denies any nausea or vomiting. His ostomy is functioning. He was found to have cholelithiasis. Patient requesting that the gallbladder surgery be completed outpatient. PHYSICAL EXAM: VITAL SIGNS: Reviewed. GENERAL: Well-developed in no acute distress. ABDOMEN: Soft. Nondistended. Nontender. NEUROLOGIC: Alert and oriented. Cranial nerves II through XII grossly intact. ASSESSMENT: 1. Right upper quadrant abdominal pain resolved 2. Cholelithiasis 3. Suspected seroma right rectus abdominis muscle adjacent to the ostomy site 4. History of coronary disease with cardiac stents placed in July 2023 PLAN: -Patient can be discharged with outpatient laparoscopic cholecystectomy -Patient will need Plavix held prior to surgery. -Recommend low-fat diet Physician Waste Removalist note has been reviewed by physician. Signing provider agrees with the documented findings, assessment, and plan of care. Objective - Vital Signs Vital signs: Vital Signs Temp 98.6 F 02/13/24 07:26 Pulse 63 02/13/24 07:26 Resp 19 02/13/24 07:26 BP 153/67 02/13/24 07:26 Pulse Ox 90 L 02/13/24 07:26 FiO2 Intake & Output 02/12/24 02/13/24 02/13/24 18:59 06:59 18:59 Intake Total 1914 240 Output Total 1 Balance 1913 240 Intake: Oral 1914 240 Output: Stool 1 Other: Voiding Method Toilet # Voids 4 3 - Labs CBC & Chem 7: 02/12/24 04:30 02/12/24 04:30 Labs: Abnormal Lab Results - Last 24 Hours (Table) 02/12/24 02/12/24 02/13/24 Range/Units 17:10 20:26 07:27 POC Glucose (mg/dL) 146 H 243 H 159 H (70-110) mg/dL Microbiology - Last 24 Hours (Table) 02/10/24 10:30 Blood Culture - Preliminary Blood
--- NOTE | 2024-02-13 22:06 | P.DS ---
Providers Date of admission: 02/10/24 02:46 Expected date of discharge: 02/13/24 Attending physician: Jamaal Shea Consults: 02/10/24 10:22 Consult Physician Routine Consulting Provider: Krishan Ontiveros Consult Reason/Comments: Leukocytosis, fever of unknown origin Do you want consulting provider notified?: Yes 02/12/24 11:53 Consult Physician Routine Consulting Provider: Prosper Rock Consult Reason/Comments: cholelithiasis Do you want consulting provider notified?: Yes Primary care physician: [facility] Course: 73-year-old male with a past medical history of hypertension, hyperlipidemia, type 2 diabetes, mood disorder, and CAD presents for generalized weakness. Patient reports yesterday started to feel weak and not have as much balance as usual. He reports later he began to have a pounding headache but denies any blurry vision, nausea or vomiting. Patient also denies fever. Patient states he has had an ostomy for 25 years, denies any change in stool output. Patient also reports he has been feeling unbalanced as if the room is spinning and he is going to fall. Per ER note, when was at bedside she reported the patient had been walking abnormally. Patient also denies chest pain, shortness of breath, peripheral edema, or urinary complaints. Patient reports since he has been at the hospital he feels back to his normal self with only some tiredness as his only symptom. Initial lab work from the ER was significant for WBC 18.5, hemoglobin 12.9, MCV 91.7, creatinine 1.91, glucose 128, plasma lactate 2.1--> 1.5, alkaline phosp hatase 137, UA trace protein and 3+ glucose. Influenza type A and B, RSV, COVID negative. EKG done in the ER showed heart rate of 66 bpm, no ST segment elevation or depression seen, no T-wave inversions seen. Sinus rhythm. ER CXR: No acute cardiopulmonary abnormality. ER CT Head: No acute intracranial process. Atrophy and chronic microvascular ischemic white matter changes. ER CT ABD: No acute abnormality in the abdomen or pelvis. Patient admitted to internal medicine service 02/10. Patient seen and examined. No further episodes of fevers. Leukocytes are improved. Repeat CT abdominal pelvis done showed cholelithiasis, right rectus sheath seroma adjacent to the ostomy site 02/11: Patient seen at bedside. No significant overnight events. Patient reports this morning he has had a headache and some nausea. Leukocytes continue to improve. Wound on the left lower extremity, with surrounding erythema. February 12: Up in a chair. Tolerating diet well. No nausea vomiting. No abdominal pain. Patient did ask me if the gallstones were really causing his symptoms. I said this is only a possibility. LFTs were not elevated. Patient skeptical having gallbladder removed at this point because of stent a few months ago. He would rather wait and see if there is another attack if it is gallstone. Per ID no antibiotics. Questions answered he will follow-up with Dr Rock outpatient. Discussion and discharge planning more than 35 minutes On examination: VITAL SIGNS: [98.6, 63, is 19, 153 x 67, 90% room air] GENERAL APPEARANCE: Up in a chair, comfortable HEENT: Normal external appearance of nose and ear. Oral cavity normal EYES: Pupils equal. Conjunctiva normal. NECK: JVD not raised. Mass not palpable. RESPIRATORY: Respiratory effort normal. Lungs clear to auscultation. CARDIOVASCULAR: First and second sounds normal. No edema. ABDOMEN: Soft. Liver and spleen not palpable. No tenderness. No mass palpable. Colostomy bag with liquid stool PSYCHIATRY: Alert and oriented x3. Mood and affect normal. INVESTIGATIONS, reviewed in the clinical context: February 12, 2024: White count 10.2 hemoglobin 11.2 platelets 200 sodium 141 potassium 4.2 BUN 22.3 creatinine 1.5 Ultrasound gallbladder: Gallbladder multiple echogenic foci. CBD within normal limits. CT abdomen pelvis without contrast: Gallstones. Stable appearance suspected seroma right rectus abdominis muscle. Assessment and plan: # Possible infected seroma. Patient received antibiotics. Course completed. Seen by ID. -Gallstones. Unclear if this was contributing to symptoms. LFTs were normal. CBD was normal. Gallbladder ultrasound was negative. At this point patient decided not to have gallstones removed. And depending on clinical course down the road he will decide. #Hypertension: Continue home medication Norvasc 5 mg p.o. daily for better control -CAD with stent -Primary osteoarthritis -History of prostate cancer with radiation and chemo in 2020. #Diabetes mellitus: On sliding scale Accu-Cheks #Hyperlipidemia: Continue home medication #GERD: Continue home medication -Full code Disposition: Home Plan - Discharge Summary Discharge Rx Participant: No New Discharge Prescriptions: New amLODIPine [Norvasc] 5 mg PO DAILY tab [id number]-[id number]-Eclh Oint [Triple Antibiotic Ointment] 1 applic TOPICAL DAILY each Continue Aspirin EC [Ecotrin Low Dose] 81 mg PO DAILY Ergocalciferol (Vitamin D2) [Drisdol (50,000 Iu)] 1,250 mcg PO Q14D allopurinoL [Zyloprim] 200 mg PO DAILY Gabapentin [Neurontin] 100 mg PO HS Torsemide [Demadex] 30 mg PO Q2D Atorvastatin [Lipitor] 40 mg PO DAILY Isosorbide Mononitrate ER [Imdur] 30 mg PO DAILY Pantoprazole [Protonix] 40 mg PO DAILY Insulin Degludec [Tresiba Flextouch U-200 Pen] 50 units SQ HS Escitalopram [Lexapro] 10 mg PO DAILY calcitrioL 0.25 mcg PO WEEKLY atenoloL [Tenormin] 50 mg PO DAILY Dapagliflozin Propanediol [Farxiga] 10 mg PO DAILY Insulin Aspart [NovoLOG Flexpen] 30 - 40 units SQ AC-TID Torsemide [Demadex] 40 mg PO Q2D Clopidogrel [Plavix] 75 mg PO DAILY #30 tab Discharge Medication List Aspirin EC [Ecotrin Low Dose] 81 mg PO DAILY 11/08/18 [History] Ergocalciferol (Vitamin D2) [Drisdol (50,000 Iu)] 1,250 mcg PO Q14D 06/25/20 [History] allopurinoL [Zyloprim] 200 mg PO DAILY 10/21/21 [History] Dapagliflozin Propanediol [Farxiga] 10 mg PO DAILY 11/05/21 [History] Gabapentin [Neurontin] 100 mg PO HS 06/30/23 [History] Torsemide [Demadex] 30 mg PO Q2D 06/30/23 [History] Atorvastatin [Lipitor] 40 mg PO DAILY 07/25/23 [History] Insulin Aspart [NovoLOG Flexpen] 30 - 40 units SQ AC-TID 08/16/23 [History] Isosorbide Mononitrate ER [Imdur] 30 mg PO DAILY 08/16/23 [History] Torsemide [Demadex] 40 mg PO Q2D 08/16/23 [History] Clopidogrel [Plavix] 75 mg PO DAILY #30 tab 09/01/23 [Rx] Escitalopram [Lexapro] 10 mg PO DAILY 02/10/24 [History] Insulin Degludec [Tresiba Flextouch U-200 Pen] 50 units SQ HS 02/10/24 [History] Pantoprazole [Protonix] 40 mg PO DAILY 02/10/24 [History] atenoloL [Tenormin] 50 mg PO DAILY 02/10/24 [History] calcitrioL 0.25 mcg PO WEEKLY 02/10/24 [History] Aahzuoei-Sgymxlvlmq-Jamw Oint [Triple Antibiotic Ointment] 1 applic TOPICAL DAILY each 02/13/24 [Rx] amLODIPine [Norvasc] 5 mg PO DAILY tab 02/13/24 [Rx] Follow up Appointment(s)/Referral(s): Nas Dennis DO [Primary Care Provider] - 1-2 days (The office will call with a follow up appointment) Prosper Rock MD [STAFF PHYSICIAN] - 02/20/24 3:00 pm Patient Instructions/Handouts: Gallstones (DC), Leukocytosis (DC) Discharge Disposition: HOME SELF-CARE
== END 2024-02-13 12:20 | disposition home or self-care (01) ==
LOC: EC 19:08 → 5NMEDONC 02-10 02:46
PROVIDERS: ADMIT Hospitalist; ATTEND Hospitalist
DX: R53.1 Weakness (principal); A41.9 Sepsis, unspecified organism; D72.829 Elevated white blood cell count, unspecified; S80.922A Unspecified superficial injury of left lower leg, initial encounter; X58.XXXA Exposure to other specified factors, initial encounter; K80.20 Calculus of gallbladder without cholecystitis without obstruction; K21.9 Gastro-esophageal reflux disease without esophagitis; E11.9 Type 2 diabetes mellitus without complications; E78.5 Hyperlipidemia, unspecified; I25.10 Atherosclerotic heart disease of native coronary artery without angina pectoris; I10 Essential (primary) hypertension; M19.91 Primary osteoarthritis, unspecified site; F39 Unspecified mood [affective] disorder; Z95.5 Presence of coronary angioplasty implant and graft; Z90.49 Acquired absence of other specified parts of digestive tract; Z92.21 Personal history of antineoplastic chemotherapy; Z86.16 Personal history of COVID-19; Z85.46 Personal history of malignant neoplasm of prostate; Z79.899 Other long term (current) drug therapy; Z79.84 Long term (current) use of oral hypoglycemic drugs; Z79.82 Long term (current) use of aspirin; Z79.4 Long term (current) use of insulin; Z79.02 Long term (current) use of antithrombotics/antiplatelets; Z92.3 Personal history of irradiation; Z93.2 Ileostomy status
CPT/HCPCS: 96361 ×4; 96365; 96366 ×3; 96372; 96375; 96360; 99285; 36415 ×2; 93005; 80053 ×2; 80048; 85652; 83605 ×2; 83735; 85025 ×3; 86140 ×2; 81003; 87040; 84145; 87636; 71046; 76705; 70450; 74176 ×2; G0378 ×4; J2543 ×2; J2405; J1650

== ENCOUNTER 2024-02-16 19:47 | Observation (INO) | payer MEDICARE ==
--- NOTE | 2024-02-16 20:11 | ED ---
Fever HPI - General Chief Complaint: Shortness of Breath Stated Complaint: Fever chills SOB Time Seen by Provider: 02/16/24 19:56 Source: patient, EMS, RN notes reviewed, old records reviewed Mode of arrival: EMS Limitations: no limitations - History of Present Illness Initial Comments: This is a 73-year-old male to the ER for evaluation patient presents today for evaluation of fever fever with altered mental status. Patient also complaining of weakness chest pain abdominal pain decreased activity level and found to have fever, he thinks it is a continuation from his last inpatient hospitalization where he did not feel comfortable with discharge home at that time MD Complaint: fever, weakness, other (Possible medication overdose accidental) -: hour(s) Context: sick contacts, on chemotherapy Associated Symptoms: denies other symptoms Treatments Prior to Arrival: none - Related Data Home Medications Medication Instructions Recorded Confirmed Aspirin EC [Ecotrin Low Dose] 81 mg PO DAILY 11/08/18 02/17/24 Ergocalciferol (Vitamin D2) 1,250 mcg PO Q14D 06/25/20 02/17/24 [Drisdol (50,000 Iu)] allopurinoL [Zyloprim] 200 mg PO DAILY 10/21/21 02/17/24 Dapagliflozin Propanediol [Farxiga] 10 mg PO DAILY 11/05/21 02/17/24 Gabapentin [Neurontin] 100 mg PO HS 06/30/23 02/17/24 Torsemide [Demadex] 30 mg PO Q2D 06/30/23 02/17/24 Atorvastatin [Lipitor] 40 mg PO DAILY 07/25/23 02/17/24 Insulin Aspart [NovoLOG Flexpen] 30 - 40 units SQ AC-TID 08/16/23 02/17/24 Isosorbide Mononitrate ER [Imdur] 30 mg PO DAILY 08/16/23 02/17/24 Torsemide [Demadex] 40 mg PO Q2D 08/16/23 02/17/24 Escitalopram [Lexapro] 10 mg PO DAILY 02/10/24 02/17/24 Insulin Degludec [Tresiba 50 units SQ HS 02/10/24 02/17/24 Flextouch U-200 Pen] Pantoprazole [Protonix] 40 mg PO DAILY 02/10/24 02/17/24 calcitrioL 0.25 mcg PO MO 02/10/24 02/17/24 Previous Rx's Medication Instructions Recorded Clopidogrel [Plavix] 75 mg PO DAILY #30 tab 09/01/23 Uwfbwftn-Pjfcedgvkg-Ftvl Oint 1 applic TOPICAL DAILY each 02/13/24 [Triple Antibiotic Ointment] amLODIPine [Norvasc] 5 mg PO DAILY tab 02/13/24 Metoprolol Succinate (ER) [Toprol 25 mg PO DAILY #30 tab 02/19/24 XL] cefUROXime axetiL [Ceftin] 500 mg PO BID #10 tab 02/19/24 metroNIDAZOLE [Flagyl] 500 mg PO QID #20 tab 02/19/24 Allergies Allergy/AdvReac Type Severity Reaction Status Date / Time ibuprofen [From Motrin] Allergy Anaphylaxis Verified 02/17/24 08:58 Review of Systems ROS Statement: Those systems with pertinent positive or pertinent negative responses have been documented in the HPI. ROS Other: All systems not noted in ROS Statement are negative. Past Medical History Past Medical History: Cancer, Chest Pain / Angina, Diabetes Mellitus, Eye Disorder, GERD/Reflux, Hyperlipidemia, Hypertension, Osteoarthritis (OA), Prostate Disorder, Renal Disease Additional Past Medical History / Comment(s): HX OF ULCERATIVE COLITIS, ileostomy PARASTOMAL HERNIA, PROSTATE CA WITH RADIATION AND CHEMO IN 2020, LOW KIDNEY FUNCTION,Covid Dec 2022, Influenza A Jun 2023, eye condition, unsure of name. History of Any Multi-Drug Resistant Organisms: MRSA Date of last positivie culture/infection: 11/07/14 MDRO Source:: Scalp Past Surgical History: Appendectomy, Bowel Resection, Heart Catheterization, Heart Catheterization With Stent Additional Past Surgical History / Comment(s): COLECTOMY, RECTUM REMOVED, ELLIOTT CATARACTS removed, ILEOSTOMY, HERNIA SURGERY. Past Anesthesia/Blood Transfusion Reactions: No Reported Reaction Additional Past Anesthesia/Blood Transfusion Reaction / Comment(s): no problems with prior blood transfusions. Date of Last Stent Placement:: 08/01/2023 Past Psychological History: No Psychological Hx Reported Smoking Status: Never smoker Past Alcohol Use History: None Reported Past Drug Use History: None Reported - Past Family History Mother Family Medical History: Cancer Additional Family Medical History / Comment(s): LUNG CANCER. Father Family Medical History: Cancer Additional Family Medical History / Comment(s): MELANOMA/BRAIN CANCER. General Exam Limitations: no limitations General appearance: alert, in no apparent distress Head exam: Present: atraumatic, normocephalic, normal inspection Eye exam: Present: normal appearance, PERRL, EOMI. Absent: scleral icterus, conjunctival injection, periorbital swelling ENT exam: Present: normal exam, mucous membranes moist Neck exam: Present: normal inspection. Absent: tenderness, meningismus, lymphadenopathy Respiratory exam: Present: normal lung sounds bilaterally. Absent: respiratory distress, wheezes, rales, rhonchi, stridor Cardiovascular Exam: Present: regular rate, normal rhythm, normal heart sounds. Absent: systolic murmur, diastolic murmur, rubs, gallop, clicks GI/Abdominal exam: Present: soft, normal bowel sounds. Absent: distended, ten derness, guarding, rebound, rigid Extremities exam: Present: normal inspection, full ROM, normal capillary refill. Absent: tenderness, pedal edema, joint swelling, calf tenderness Back exam: Present: normal inspection Neurological exam: Present: alert, oriented X3, CN II-XII intact Psychiatric exam: Present: normal affect, normal mood Skin exam: Present: warm, dry, intact, normal color. Absent: rash Course Vital Signs 02/16/24 02/16/24 02/16/24 19:50 20:03 22:00 Temperature 100.5 F H Pulse Rate 93 81 Respiratory 24 26 H 20 Rate Blood Pressure 186/74 127/46 O2 Sat by Pulse 92 L 96 Oximetry 02/16/24 02/16/24 02/17/24 23:48 23:54 00:00 Temperature 98.9 F Pulse Rate 68 66 66 Respiratory 20 Rate Blood Pressure 114/50 O2 Sat by Pulse 96 Oximetry 02/17/24 02/17/24 02/17/24 01:00 03:21 05:00 Temperature Pulse Rate 68 63 55 L Respiratory 19 19 16 Rate Blood Pressure 109/56 116/54 118/58 O2 Sat by Pulse 95 99 100 Oximetry 02/17/24 02/17/24 02/17/24 07:36 08:07 08:09 Temperature Pulse Rate 51 L 56 L Respiratory 16 Rate Blood Pressure 144/67 O2 Sat by Pulse 94 L 97 Oximetry 02/17/24 02/17/24 02/17/24 08:16 09:55 15:48 Temperature 97.5 F L Pulse Rate 54 L 61 64 Respiratory 20 20 Rate Blood Pressure 139/63 146/57 O2 Sat by Pulse 100 93 L Oximetry 02/17/24 02/17/24 02/17/24 15:50 17:41 18:10 Temperature 97.9 F Pulse Rate 57 L 62 Respiratory 19 18 Rate Blood Pressure 143/50 129/57 O2 Sat by Pulse 95 95 98 Oximetry 02/17/24 02/17/24 02/17/24 18:29 20:31 23:41 Temperature Pulse Rate 64 60 66 Respiratory 18 18 20 Rate Blood Pressure 129/57 152/58 159/62 O2 Sat by Pulse 99 100 99 Oximetry 02/18/24 02/18/24 02/18/24 05:00 08:28 10:19 Temperature Pulse Rate 62 64 62 Respiratory 18 18 18 Rate Blood Pressure 144/52 120/61 143/59 O2 Sat by Pulse 96 94 L 96 Oximetry 02/18/24 02/18/24 02/18/24 13:15 16:29 19:45 Temperature 97.9 F Pulse Rate 56 L 60 60 Respiratory 14 18 16 Rate Blood Pressure 165/71 142/55 156/56 O2 Sat by Pulse 97 97 98 Oximetry 02/18/24 20:14 Temperature 98.1 F Pulse Rate 59 L Respiratory 16 Rate Blood Pressure 145/55 O2 Sat by Pulse 95 Oximetry - Reevaluation(s) Reevaluation #1: 02/16/24 21:41 Medical records reviewed Reevaluation #2: 02/16/24 21:41 Patient fever improved patient symptoms improving Reevaluation #3: 02/16/24 21:41 Patient informed of results and questions answered Reevaluation #4: Was pt. sent in by a medical professional or institution (, PA, [facility], urgent care, hospital, or [facility]...) When possible be specific @ -no Did you speak to anyone other than the patient for history (EMS, parent, family, police, friend...)? What history was obtained from this source @ -no Did you review nursing and triage notes (agree or disagree)? Why? @ -agree Are old charts reviewed (outside hosp., previous admission, EMS record, old EKG, old radiological studies, urgent care reports/EKG's, [facility] records)? Report findings @ -yes Differential Diagnosis (chest pain, altered mental status, abdominal pain women, abdominal pain men, vaginal bleeding, weakness, fever, dyspnea, syncope, headache, dizziness, GI bleed, back pain, seizure, CVA, palpatations, mental health, musculoskeletal)? @ -prior EKG interpreted by me (3pts min.). @ -yes X-rays interpreted by me (1pt min.). @ -yes negative for acute disease CT interpreted by me (1pt min.). @ -no U/S interpreted by me (1pt. min.). @ -no What testing was considered but not performed or refused? (CT, X-rays, U/S, labs)? Why? @ -none What meds were considered but not given or refused? Why? @ -none Did you discuss the management of the patient with other professionals (professionals i.e. , PA, [facility], lab, RT, psych nurse, social services assistant, packing checker, teacher, detention officer, welfare case worker)? Give summary @ -no Was smoking cessation discussed for >3mins.? @ -no Was critical care preformed (if so, how long)? @ -no Were there social determinants of health that impacted care today? How? (Homelessness, low income, unemployed, alcoholism, drug addiction, transportation, low edu. Level, literacy, decrease access to med. care, penitentiary, rehab)? @ -none Was there de-escalation of care discussed even if they declined (Discuss DNR or withdrawal of care, Hospice)? DNR status @ -no What co-morbidities impacted this encounter? (DM, HTN, Smoking, COPD, CAD, Cancer, CVA, ARF, Chemo, Hep., AIDS, mental health diagnosis, sleep apnea, morbid obesity)? @ -none Was patient admitted / discharged? Hospital course, mention meds given and route, prescriptions, significant lab abnormalities, going to OR and other pertinent info. @ - 73 male to the ER for evaluation patient will be admitted for PT OT supportive care finding causes of fever and dyspnea Admitted Undiagnosed new problem with uncertain prognosis? @ -no Drug Therapy requiring intensive monitoring for toxicity (Heparin, Nitro, Insulin, Cardizem)? @ -no Were any procedures done? @ -no Diagnosis/symptom? @ -Fever dyspnea Acute, or Chronic, or Acute on Chronic? @ -Acute Uncomplicated (without systemic symptoms) or Complicated (systemic symptoms)? @ -Complicated Side effects of treatment? @ -no Exacerbation, Progression, or Severe Exacerbation? @ -exacerbation Poses a threat to life or bodily function? How? (Chest pain, [place], [place], pneumonia, PE, COPD, DKA, ARF, appy, cholecystitis, CVA, Diverticulitis, Homicidal, S uicidal, threat to staff... and all critical care pts) @ -yes Reevaluation #5: Differential Fever: Pneumonia, viral URI, endocarditis, myocarditis, pericarditis, otitis, si nusitis, peritonsillar Abscess, retropharyngeal Abscess, epiglottitis, peritonitis, appendicitis, Tressa cystitis, diverticulitis, hepatitis, colitis, UTI, PID, TOA, pyelonephritis, prostatitis, epididymitis, meningitis, encephalitis, pulmonary embolism, CVA, thyroid storm, pancreatitis, adrenal alissa is, cavernous sinus thrombosis, this is not meant to be an all-inclusive list. Medical Decision Making - Medical Decision Making 73 male to the ER for evaluation patient will be admitted for PT OT supportive care finding causes of fever and dyspnea - Lab Data Result diagrams: 02/18/24 08:52 02/19/24 06:35 Lab Results 02/16/24 02/16/24 02/16/24 Range/Units 20:12 20:21 20:21 WBC 13.4 H (3.8-10.6) k/uL RBC 4.00 L (4.30-5.90) m/uL Hgb 11.7 L (13.0-17.5) gm/dL Hct 36.2 L (39.0-53.0) % MCV 90.5 (80.0-100.0) fL MCH 29.2 (25.0-35.0) pg MCHC 32.2 (31.0-37.0) g/dL RDW 18.7 H (11.5-15.5) % Plt Count 293 (150-450) k/uL MPV 7.8 Neutrophils % 92 % Lymphocytes % 2 % Monocytes % 3 % Eosinophils % 2 % Basophils % 0 % Neutrophils # 12.3 H (1.3-7.7) k/uL Lymphocytes # 0.2 L (1.0-4.8) k/uL Monocytes # 0.4 (0-1.0) k/uL Eosinophils # 0.3 (0-0.7) k/uL Basophils # 0.0 (0-0.2) k/uL Hypochromasia Slight Anisocytosis Slight Sodium (137-145) mmol/L Potassium (3.5-5.1) mmol/L Chloride (98-107) mmol/L Carbon Dioxide (22-30) mmol/L Anion Gap mmol/L BUN (9-20) mg/dL Creatinine (0.66-1.25) mg/dL Est GFR (CKD-EPI)AfAm (>60 ml/min/1.73 sqM) Est GFR (CKD-EPI)NonAf (>60 ml/min/1.73 sqM) Glucose (74-99) mg/dL Lactic Ac Sepsis Rflx Plasma Lactic Acid Cecil 2.2 H* (0.7-2.0) mmol/L Calcium (8.4-10.2) mg/dL Phosphorus (2.5-4.5) mg/dL Magnesium (1.6-2.3) mg/dL Total Bilirubin (0.2-1.3) mg/dL AST (17-59) U/L ALT (4-49) U/L Alkaline Phosphatase (38-126) U/L Total Protein (6.3-8.2) g/dL Albumin (3.5-5.0) g/dL Urine Color Urine Appearance (Clear) Urine pH (5.0-8.0) Ur Specific [place] (1.001-1.035) Urine Protein (Negative) Urine Glucose (UA) (Negative) Urine Ketones (Negative) Urine Blood (Negative) Urine Nitrite (Negative) Urine Bilirubin (Negative) Urine Urobilinogen (<2.0) mg/dL Ur Leukocyte Esterase (Negative) Urine RBC (0-5) /hpf Urine WBC (0-5) /hpf Amorphous Sediment (None) /hpf Urine Mucus (None) /hpf Influenza Type A (PCR) Not Detected (Not Detectd) Influenza Type B (PCR) Not Detected (Not Detectd) RSV (PCR) Not Detected (Not Detectd) SARS-CoV-2 (PCR) Not Detected (Not Detectd) 02/16/24 02/16/24 02/16/24 Range/Units 20:21 21:14 22:06 WBC (3.8-10.6) k/uL RBC (4.30-5.90) m/uL Hgb (13.0-17.5) gm/dL Hct (39.0-53.0) % MCV (80.0-100.0) fL MCH (25.0-35.0) pg MCHC (31.0-37.0) g/dL RDW (11.5-15.5) % Plt Count (150-450) k/uL MPV Neutrophils % % Lymphocytes % % Monocytes % % Eosinophils % % Basophils % % Neutrophils # (1.3-7.7) k/uL Lymphocytes # (1.0-4.8) k/uL Monocytes # (0-1.0) k/uL Eosinophils # (0-0.7) k/uL Basophils # (0-0.2) k/uL Hypochromasia Anisocytosis Sodium 138 (137-145) mmol/L Potassium 4.1 (3.5-5.1) mmol/L Chloride 107 (98-107) mmol/L Carbon Dioxide 21 L (22-30) mmol/L Anion Gap 10 mmol/L BUN 24 H (9-20) mg/dL Creatinine 1.69 H (0.66-1.25) mg/dL Est GFR (CKD-EPI)AfAm 45 (>60 ml/min/1.73 sqM) Est GFR (CKD-EPI)NonAf 39 (>60 ml/min/1.73 sqM) Glucose 157 H (74-99) mg/dL Lactic Ac Sepsis Rflx Y Plasma Lactic Acid Cecil (0.7-2.0) mmol/L Calcium 8.8 (8.4-10.2) mg/dL Phosphorus 3.1 (2.5-4.5) mg/dL Magnesium 1.5 L (1.6-2.3) mg/dL Total Bilirubin 0.7 (0.2-1.3) mg/dL AST 38 (17-59) U/L ALT 38 (4-49) U/L Alkaline Phosphatase 118 (38-126) U/L Total Protein 6.8 (6.3-8.2) g/dL Albumin 3.6 (3.5-5.0) g/dL Urine Color Colorless Urine Appearance Clear (Clear) Urine pH 5.0 (5.0-8.0) Ur Specific [place] 1.008 (1.001-1.035) Urine Protein 1+ H (Negative) Urine Glucose (UA) 4+ H (Negative) Urine Ketones Negative (Negative) Urine Blood Small H (Negative) Urine Nitrite Negative (Negative) Urine Bilirubin Negative (Negative) Urine Urobilinogen <2.0 (<2.0) mg/dL Ur Leukocyte Esterase Trace H (Negative) Urine RBC <1 (0-5) /hpf Urine WBC 2 (0-5) /hpf Amorphous Sediment Rare H (None) /hpf Urine Mucus Rare H (None) /hpf Influenza Type A (PCR) (Not Detectd) Influenza Type B (PCR) (Not Detectd) RSV (PCR) (Not Detectd) SARS-CoV-2 (PCR) (Not Detectd) - EKG Data -: EKG Interpreted by Me (EKG is sinus 93 DE 187 QRS 89 QTc 389) - Radiology Data Radiology results: report reviewed (CXR is negative for acute disease), image reviewed Disposition Clinical Impression: Weakness, Dyspnea, Fever, Exertional dyspnea, Leukocytosis Disposition: ADMITTED IP TO THIS HOSP Is patient prescribed a controlled substance at d/c from ED?: No
[2024-02-16 20:45] LABS: Anisocytosis Slight; Basophils % (A) 0 %; Eosinophils # (A) 0.3 k/uL (0-0.7); Eosinophils % (A) 2 %; HCT 36.2 % (39.0-53.0); HGB 11.7 gm/dL (13.0-17.5); Hypochromasia Slight; Lymphocytes # (A) 0.2 k/uL (1.0-4.8); Lymphocytes % (A) 2 %; MCH 29.2 pg (25.0-35.0); MCHC 32.2 g/dL (31.0-37.0); MCV 90.5 fL (80.0-100.0); Mean Platelet Volume 7.8; Monocytes # (A) 0.4 k/uL (0-1.0); Monocytes % (A) 3 %; Neutrophils # (A) 12.3 k/uL (1.3-7.7); Neutrophils % (A) 92 %; Platelet Count 293 k/uL (150-450); RDW 18.7 % (11.5-15.5); WBC 13.4 k/uL (3.8-10.6)
[2024-02-16 20:59] LABS: ALT 38 U/L (4-49); AST 38 U/L (17-59); African American GFR (CKD) 45 (>60 ml/min/1.73 sqM); Albumin 3.6 g/dL (3.5-5.0); Alkaline Phosphatase 118 U/L (38-126); Anion Gap 10 mmol/L; Blood Urea Nitrogen 24 mg/dL (9-20); Calcium 8.8 mg/dL (8.4-10.2); Carbon Dioxide 21 mmol/L (22-30); Chloride 107 mmol/L (98-107); Glucose 157 mg/dL (74-99); Magnesium 1.5 mg/dL (1.6-2.3); Non-African American GFR(CKD) 39 (>60 ml/min/1.73 sqM); Phosphorus 3.1 mg/dL (2.5-4.5); Potassium 4.1 mmol/L (3.5-5.1); Sodium 138 mmol/L (137-145); Total Bilirubin 0.7 mg/dL (0.2-1.3); Total Protein 6.8 g/dL (6.3-8.2)
--- NOTE | 2024-02-16 21:15 | XR ---
EXAMINATION TYPE: XR chest 1V portable DATE OF EXAM: 02/16/2024 COMPARISON: 02-09-2024 INDICATION: cough, short of breath TECHNIQUE: Single frontal view of the chest is obtained. FINDINGS: The heart size is upper limits of normal. The pulmonary vasculature is normal. Mild diffuse infiltrate, correlate for early pulmonary edema. IMPRESSION: 1. Mild diffuse infiltrate may be early pulmonary edema. Follow up recommended. Consider developing CHF. [facility], Workstation: [facility], 02/16/2024 9:12 PM
[2024-02-16] MEDS: ACETAMINOPHEN TAB 500 MG TAB PO STA (21:55)
[2024-02-16] MEDS: SODIUM CHLORIDE 0.9% 1,000 ML IV STA (21:57)
[2024-02-16] MEDS ORDERED: NALOXONE 0.4 MG/ML 1 ML VIAL IV PRN (22:40)
[2024-02-16] MEDS ORDERED: IBUPROFEN 400 MG TAB PO PRN (22:40)
[2024-02-16] MEDS ORDERED: MORPHINE SULFATE 4 MG/ML SYRINGE IV PRN (22:40)
[2024-02-16] MEDS ORDERED: ACETAMINOPHEN TAB 325 MG TAB PO PRN (22:40)
[2024-02-16] MEDS: MAGNESIUM OXIDE 400 MG TAB PO STA ×2 (23:08→23:44)
[2024-02-16] MEDS: MAGNESIUM SULFATE-D5W PMX 1 GM in DEXTROSE/WATER 1 100ML.BAG IVPB SCH (23:09)
[2024-02-16 23:13] LABS: Amorphous Sediment,Urine Rare /hpf; Appearance,Urine Clear (Clear); Bilirubin,Urine Negative (Negative); Blood,Urine Small (Negative); Color,Urine Colorless; Glucose,Urine (UA) 4+ (Negative); Ketones,Urine Negative (Negative); Leukocyte Esterase,Urine Trace (Negative); Mucus,Urine Rare /hpf; Nitrite,Urine Negative (Negative); Protein,Urine 1+ (Negative); RBC,Urine <1 /hpf (0-5); Specific Gravity,Urine 1.008 (1.001-1.035); Urobilinogen,Urine <2.0 mg/dL (<2.0); WBC,Urine 2 /hpf (0-5)
[2024-02-16] MEDS: SODIUM CHLORIDE 0.9% 1,000 ML IV SCH (23:15)
[2024-02-16] MEDS: IPRATROPIUM-ALBUTEROL 3 ML NEB INHALATION STA (23:47)
[2024-02-17 04:42] LABS: Anisocytosis Slight; Basophils % (A) 0 %; Eosinophils # (A) 0.2 k/uL (0-0.7); Eosinophils % (A) 1 %; Hypochromasia Slight; Lymphocytes # (A) 0.5 k/uL (1.0-4.8); Lymphocytes % (A) 3 %; MCH 28.7 pg (25.0-35.0); MCHC 31.4 g/dL (31.0-37.0); MCV 91.6 fL (80.0-100.0); Mean Platelet Volume 7.8; Monocytes # (A) 0.6 k/uL (0-1.0); Monocytes % (A) 4 %; Neutrophils # (A) 16.1 k/uL (1.3-7.7); Neutrophils % (A) 92 %; Platelet Count 280 k/uL (150-450); RBC 3.82 m/uL (4.30-5.90); RDW 18.6 % (11.5-15.5); WBC 17.5 k/uL (3.8-10.6)
[2024-02-17 04:56] LABS: ALT 37 U/L (4-49); AST 36 U/L (17-59); African American GFR (CKD) 39 (>60 ml/min/1.73 sqM); Albumin 3.1 g/dL (3.5-5.0); Alkaline Phosphatase 115 U/L (38-126); Anion Gap 12 mmol/L; Blood Urea Nitrogen 26 mg/dL (9-20); Calcium 8.1 mg/dL (8.4-10.2); Carbon Dioxide 19 mmol/L (22-30); Chloride 106 mmol/L (98-107); Glucose 210 mg/dL (74-99); Non-African American GFR(CKD) 33 (>60 ml/min/1.73 sqM); Potassium 4.2 mmol/L (3.5-5.1); Sodium 137 mmol/L (137-145); Total Bilirubin 0.5 mg/dL (0.2-1.3)
[2024-02-17] MEDS: IPRATROPIUM-ALBUTEROL 3 ML NEB INHALATION PRN (08:07)
[2024-02-17] MEDS ORDERED: IOPAMIDOL CONTRAST (ORAL USE) VIAL PO PRN (11:52)
--- NOTE | 2024-02-17 12:13 | XR ---
Abdomen HISTORY: Left lower abdominal pain. COMPARISON: None TECHNIQUE: 4 supine views of the abdomen were obtained. FINDINGS: There is a paucity of bowel gas. There are no suspicious abdominal or pelvic calcifications. There are surgical clips in the midline p dick possibly for prostatectomy. The osseous structures are intact. IMPRESSION: Nonspecific bowel gas pattern. [facility], , 02/17/2024 12:10 PM
--- NOTE | 2024-02-17 13:42 | P.CRDCN ---
History of Present Illness Consult date: 02/17/24 History of present illness: HISTORY OF PRESENTING ILLNESS Patient with past medical history CAD status post PCI to LAD and second diagonal, type 2 diabetes, hypertension, dyslipidemia, dilated thoracic aorta, CKD and overweight. He is known to Dr. Vieyra. Patient was recently in the hospital with symptoms of increased weakness, shortness of breath and abdominal pain. He was being evaluated and was discharged recently. He came back to the hospital because of similar complaints of shortness of breath and lower extremity edema getting mildly worse. He was discharged on torsemide 30 mg daily. Last echo from July 2023 shows preserved LV systolic function, mild MR, Cardiac cath in June 2023 showed severe disease and he received PCI Home medication amlodipine 5, aspirin 81, Plavix, atenolol 50, atorvastatin 40, Farxiga 10, Imdur 30, torsemide 20 alternating with 30. REVIEW OF SYSTEMS 14 point review of system is negative except what is mentioned above in HPI. PHYSICAL EXAMINATION Vital signs reviewed. Head: Normocephalic. Eyes: Sclerae nonicteric. Neck: Brisk carotid upstroke, no jugular venous distention. Lungs: Mild crackles audible in bilateral lung bennett Heart: Regular rate and rhythm, S1-S2, , no murmur or rub. Abdomen: Soft nontender, positive bowel sounds. Extremities: 1-2+ pitting edema in bilateral lower extremity up to mid knee Neuro: Alert, oritented, no focal deficits. Detailed neuro exam was not performed. ASSESSMENT Mild HFpEF exacerbation CAD status post PCI to LAD and diagonal June 2023 Obesity Hypertension Dyslipidemia CKD PLAN Discontinue atenolol and start metoprolol succinate 25 mg daily due to low resting heart rate Discontinue torsemide. Start Lasix 40 mg IV twice daily Continue aspirin, Plavix, Lipitor, Farxiga Obtain NT proBNP, procalcitonin, lipid panel Zev Ma MD, FACC, RPVI Thank you for allowing [facility] to participate in this patient's care. Feel free to reach out in case of any followup questions. Past Medical History Past Medical History: Cancer, Chest Pain / Angina, Diabetes Mellitus, Eye Disorder, GERD/Reflux, Hyperlipidemia, Hypertension, Osteoarthritis (OA), Prostate Disorder, Renal Disease Additional Past Medical History / Comment(s): HX OF ULCERATIVE COLITIS, ileostomy PARASTOMAL HERNIA, PROSTATE CA WITH RADIATION AND CHEMO IN 2020, LOW KIDNEY FUNCTION,Covid Dec 2022, Influenza A Jun 2023, eye condition, unsure of name. History of Any Multi-Drug Resistant Organisms: MRSA Date of last positivie culture/infection: 11/07/14 MDRO Source:: Scalp Past Surgical History: Appendectomy, Bowel Resection, Heart Catheterization, Heart Catheterization With Stent Additional Past Surgical History / Comment(s): COLECTOMY, RECTUM REMOVED, ELLIOTT CATARACTS removed, ILEOSTOMY, HERNIA SURGERY. Past Anesthesia/Blood Transfusion Reactions: No Reported Reaction Additional Past Anesthesia/Blood Transfusion Reaction / Comment(s): no problems with prior blood transfusions. Date of Last Stent Placement:: 08/01/2023 Past Psychological History: No Psychological Hx Reported Smoking Status: Never smoker Past Alcohol Use History: None Reported Past Drug Use History: None Reported - Past Family History Mother Family Medical History: Cancer Additional Family Medical History / Comment(s): LUNG CANCER. Father Family Medical History: Cancer Additional Family Medical History / Comment(s): MELANOMA/BRAIN CANCER. Medications and Allergies Home Medications Medication Instructions Recorded Confirmed Type Aspirin EC [Ecotrin Low Dose] 81 mg PO DAILY 11/08/18 02/17/24 History Ergocalciferol (Vitamin D2) 1,250 mcg PO Q14D 06/25/20 02/17/24 History [Drisdol (50,000 Iu)] allopurinoL [Zyloprim] 200 mg PO DAILY 10/21/21 02/17/24 History Dapagliflozin Propanediol [Farxiga] 10 mg PO DAILY 11/05/21 02/17/24 History Gabapentin [Neurontin] 100 mg PO HS 06/30/23 02/17/24 History Torsemide [Demadex] 30 mg PO Q2D 06/30/23 02/17/24 History Atorvastatin [Lipitor] 40 mg PO DAILY 07/25/23 02/17/24 History Insulin Aspart [NovoLOG Flexpen] 30 - 40 units SQ AC-TID 08/16/23 02/17/24 History Isosorbide Mononitrate ER [Imdur] 30 mg PO DAILY 08/16/23 02/17/24 History Torsemide [Demadex] 40 mg PO Q2D 08/16/23 02/17/24 History Clopidogrel [Plavix] 75 mg PO DAILY #30 tab 09/01/23 02/17/24 Rx Escitalopram [Lexapro] 10 mg PO DAILY 02/10/24 02/17/24 History Insulin Degludec [Tresiba 50 units SQ HS 02/10/24 02/17/24 History Flextouch U-200 Pen] Pantoprazole [Protonix] 40 mg PO DAILY 02/10/24 02/17/24 History atenoloL [Tenormin] 50 mg PO DAILY 02/10/24 02/17/24 History calcitrioL 0.25 mcg PO MO 02/10/24 02/17/24 History Crmsrdzw-Wkertzshct-Brti Oint 1 applic TOPICAL DAILY each 02/13/24 02/17/24 Rx [Triple Antibiotic Ointment] amLODIPine [Norvasc] 5 mg PO DAILY tab 02/13/24 02/17/24 Rx Allergies Allergy/AdvReac Type Severity Reaction Status Date / Time ibuprofen [From Motrin] Allergy Anaphylaxis Verified 02/17/24 08:58 Physical Exam Vitals: Vital Signs Temp Pulse Resp BP Pulse Ox 02/17/24 09:55 97.5 F L 61 20 139/63 100 02/17/24 08:16 54 L 02/17/24 08:09 97 02/17/24 08:07 56 L 02/17/24 07:36 51 L 16 144/67 94 L 02/17/24 05:00 55 L 16 118/58 100 02/17/24 03:21 63 19 116/54 99 02/17/24 01:00 68 19 109/56 95 02/17/24 00:00 98.9 F 66 20 114/50 96 02/16/24 23:54 66 02/16/24 23:48 68 02/16/24 22:00 81 20 127/46 96 02/16/24 20:03 26 H 02/16/24 19:50 100.5 F H 93 24 186/74 92 L Intake and Output 02/16/24 02/17/24 02/17/24 22:59 06:59 14:59 Other: Weight 115.666 kg Results 02/17/24 04:31 02/17/24 04:31 Cardiac Enzymes 02/16/24 02/17/24 Range/Units 20:21 04:31 AST 38 36 (17-59) U/L CBC 02/16/24 02/17/24 Range/Units 20:21 04:31 WBC 13.4 H 17.5 H (3.8-10.6) k/uL RBC 4.00 L 3.82 L (4.30-5.90) m/uL Hgb 11.7 L 11.0 L (13.0-17.5) gm/dL Hct 36.2 L 35.0 L (39.0-53.0) % Plt Count 293 280 (150-450) k/uL Comprehensive Metabolic Panel 02/16/24 02/17/24 Range/Units 20:21 04:31 Sodium 138 137 (137-145) mmol/L Potassium 4.1 4.2 (3.5-5.1) mmol/L Chloride 107 106 (98-107) mmol/L Carbon Dioxide 21 L 19 L (22-30) mmol/L BUN 24 H 26 H (9-20) mg/dL Creatinine 1.69 H 1.93 H (0.66-1.25) mg/dL Glucose 157 H 210 H (74-99) mg/dL Calcium 8.8 8.1 L (8.4-10.2) mg/dL AST 38 36 (17-59) U/L ALT 38 37 (4-49) U/L Alkaline Phosphatase 118 115 (38-126) U/L Total Protein 6.8 6.0 L (6.3-8.2) g/dL Albumin 3.6 3.1 L (3.5-5.0) g/dL Current Medications Generic Name Dose Route Start Last Admin Trade Name Freq PRN Reason Stop Dose Admin Acetaminophen 650 mg 02/16/24 22:40 Acetaminophen Tab 325 Mg Tab PO Q6HR PRN Mild Pain or Fever > 100.5 Albuterol/Ipratropium 3 ml 02/16/24 22:40 02/17/24 08:07 Ipratropium-Albuterol 3 Ml Neb INHALATION 3 ml RT-TID PRN Administration Shortness Of Breath Or Wheezing Allopurinol 200 mg 02/17/24 12:00 Allopurinol 100 Mg Tab PO DAILY [facility] Amlodipine Besylate 5 mg 02/17/24 12:00 Amlodipine 5 Mg Tab PO DAILY [facility] Aspirin 81 mg 02/17/24 12:00 Aspirin 81 Mg PO DAILY [facility] Atorvastatin Calcium 40 mg 02/17/24 12:00 Atorvastatin 40 Mg Tab PO DAILY [facility] Clopidogrel Bisulfate 75 mg 02/17/24 12:00 Clopidogrel 75 Mg Tab PO DAILY [facility] Dapagliflozin 10 mg 02/17/24 12:00 Dapagliflozin Propanediol 10 Mg Tablet PO DAILY [facility] Enoxaparin Sodium 40 mg 02/17/24 12:00 Enoxaparin 40 Mg/0.4 Ml Syringe SQ DAILY [facility] Escitalopram Oxalate 10 mg 02/17/24 12:00 Escitalopram 10 Mg Tab PO DAILY [facility] Furosemide 40 mg 02/17/24 13:45 Furosemide 10 Mg/Ml 4 Ml Vial IV Q12HR [facility] Gabapentin 100 mg 02/17/24 21:00 Gabapentin 100 Mg Cap PO HS [facility] Ceftriaxone Sodium 2 gm/ 50 mls @ 100 mls/hr 02/17/24 09:00 02/17/24 09:50 Sodium Chloride IVPB 100 mls/hr Q24HR JOSÉ Administration Protocol Sodium Chloride 1,000 mls @ 20 mls/hr 02/16/24 22:45 02/16/24 23:15 Saline 0.9% IV 20 mls/hr .Q24H JOSÉ Administration Insulin Detemir 50 unit 02/17/24 21:00 Insulin Detemir (Levemir) 100 Unit/Ml Syr SQ HS [facility] Iopamidol 30 ml 02/17/24 11:52 Iopamidol Contrast (Oral Use) Vial PO 02/18/24 11:[address] Scan Isosorbide Mononitrate 30 mg 02/17/24 12:00 Isosorbide Mononitrate Er 30 Mg Tab.Er.24h PO DAILY [facility] Metoprolol Succinate 25 mg 02/17/24 13:45 Metoprolol Succinate (Er) 25 Mg Tab.Er.24h PO DAILY [facility] Morphine Sulfate 4 mg 02/16/24 22:40 Morphine Sulfate 4 Mg/Ml Syringe IV Q4HR PRN Severe Pain (Scale 7 to 10) Naloxone HCl 0.2 mg 02/16/24 22:40 Naloxone 0.4 Mg/Ml 1 Ml Vial IV Q2M PRN Opioid Reversal Pantoprazole Sodium 40 mg 02/17/24 12:00 Pantoprazole 40 Mg Tablet PO DAILY [facility] Intake and Output 02/16/24 02/17/24 02/17/24 22:59 06:59 14:59 Other: Weight 115.666 kg 02/17/24 04:31 10/19/24 04:31
[2024-02-17] MEDS: ATORVASTATIN 40 MG TAB PO SCH (13:59)
[2024-02-17] MEDS: PANTOPRAZOLE 40 MG TABLET PO SCH (13:59)
[2024-02-17] MEDS: CLOPIDOGREL 75 MG TAB PO SCH (13:59)
[2024-02-17] MEDS: amLODIPine 5 MG TAB PO SCH (13:59)
[2024-02-17] MEDS: ASPIRIN 81 MG PO SCH (13:59)
[2024-02-17] MEDS: ENOXAPARIN 40 MG/0.4 ML SYRINGE SQ SCH (14:00)
[2024-02-17] MEDS: atenoloL 50 MG TAB PO SCH (14:06)
[2024-02-17] MEDS: ISOSORBIDE MONONITRATE ER 30 MG TAB.ER.24H PO SCH (14:10)
[2024-02-17] MEDS: DAPAGLIFLOZIN PROPANEDIOL 10 MG TABLET PO SCH (14:10)
[2024-02-17] MEDS: ESCITALOPRAM 10 MG TAB PO SCH (14:10)
[2024-02-17] MEDS: METOPROLOL SUCCINATE (ER) 25 MG TAB.ER.24H PO SCH (14:10)
[2024-02-17] MEDS: allopurinoL 100 MG TAB PO SCH (14:10)
[2024-02-17] MEDS: FUROSEMIDE 10 MG/ML 4 ML VIAL IV SCH (14:11)
[2024-02-17 14:53] LABS: NT-Pro-B-Type Natriuretic Pept 2030 pg/mL
--- NOTE | 2024-02-17 15:39 | CT ---
EXAMINATION TYPE: CT abdomen pelvis wo con CT DLP: 1548.4 mGycm, Automated exposure control for dose reduction was used. DATE OF EXAM: 02/17/2024 3:04 PM COMPARISON: 02/10/2024 CLINICAL INDICATION: Male, 73 years old with history of lower abd pain-fever; Lower abd pain-fever. TECHNIQUE: Axial CT abdomen pelvis wo con;Sagittal and coronal reformats were created on a separate workstation. Contrast used: mL of , (none if empty) Oral contrast used: with Oral Contrast (none if empty) FINDINGS: LOWER CHEST: The heart is mildly enlarged for size. There is coronary artery atherosclerosis. ABDOMEN LIVER: Unremarkable GALLBLADDER AND BILE DUCTS: Layering increased densities within the lumen consistent with gallstones are present. PANCREAS: Unremarkable. SPLEEN: Unremarkable. ADRENAL GLANDS: Unremarkable. KIDNEYS AND URETERS: No evidence of hydronephrosis or renal calculus. The ureters are unremarkable. PELVIS BLADDER: Unremarkable REPRODUCTIVE: Unremarkable. ABDOMEN & PELVIS STOMACH AND BOWEL: No evidence of bowel obstruction. Anterior abdominal wall ostomy with parastomal h ernia. No evidence for obstruction. PERITONEUM/RETROPERITONEUM: No evidence of pneumoperitoneum or free fluid. VASCULATURE: No evidence of aortic aneurysm. MUSCULOSKELETAL: No acute osseous abnormalities LYMPH NODES: No gross evidence for lymphadenopathy. SOFT TISSUE/ABDOMINAL WALL: Right lower quadrant ostomy with fat and bowel-containing parastomal abilio ia. No evidence for obstruction. Bilateral fat-containing inguinal hernias. IMPRESSION: 1. No evidence for acute abdominal process to explain the patient's fever. No organizing fluid colle ction or other acute process in the pelvis. 2. Right lower quadrant ostomy with fat and bowel-containing parastomal hernia. 3. Cholelithiasis [facility], , 02/17/2024 3:37 PM
[2024-02-17] MEDS: GABAPENTIN 100 MG CAP PO SCH (20:28)
[2024-02-17] MEDS ORDERED: DEXTROSE 50% SYRINGE 50 ML IVP PRN ×2 (20:39)
--- NOTE | 2024-02-17 20:41 | P.HPIM ---
History of Present Illness H&P Date: 02/17/24 Chief Complaint: Lower abdominal pain 73-year-old male with a past medical history of hypertension, hyperlipidemia, type 2 diabetes, mood disorder, and CAD presents for generalized weakness. ostomy for 25 years, Patient recently in the hospital from February 09 through February 12. He was then found to have gallstones. Not really felt to be his cause of his symptoms. He was seen by surgery. In July of this year patient underwent successful stent to the LAD and second diagonal branch by Dr. Bales. On last admission he was suggested to have cholecystectomy by surgery Dr Rock. As symptoms were not clear and since patient had stents only in July of this year he was rather reluctant. Patient went home was doing well for 3 days. Yesterday started patient having significant lower abdominal pain. Some fever and chills. Also a headache. Had a baseline patient normally has about 5 soft stools a day. No respiratory or urinary symptoms. CT scan ordered for this afternoon did not show any acute process. Again showing gallstones. Patient did say he has some shortness of breath but that is his baseline. . Review of systems: GEN.: Fever chills decreased appetite EYES: None HEENT: Headache NECK: None RESPIRATORY: None CARDIOVASCULAR: None GASTROINTESTINAL: Lower abdominal pain GENITOURINARY: None MUSCULOSKELETAL: Joint pain LYMPHATICS: None HEMATOLOGICAL: None PSYCHIATRY: None NEUROLOGICAL: None Social history: Non-smoking. No alcohol. On examination: VITAL SIGNS: 100.5, 93, 24, 127 x 46, 96% on 2 L a at presentation GENERAL APPEARANCE: Lying in bed, a bit tired HEENT: Normal external appearance of nose and ear. Oral cavity normal EYES: Pupils equal. Conjunctiva normal. NECK: JVD not raised. Mass not palpable. RESPIRATORY: Respiratory effort normal. Lungs clear to auscultation. CARDIOVASCULAR: First and second sounds normal. No edema. ABDOMEN: Soft. Liver and spleen not palpable. Lower abdominal tenderness. No right upper quadrant tenderness. No mass palpable. Colostomy bag with liquid stool PSYCHIATRY: Alert and oriented x3. Mood and affect a bit anxious INVESTIGATIONS, reviewed in the clinical context: February 17, 2024: White count 7.5 hemoglobin 11 platelets 280 sodium 137 potassium 4.2 BUN 26 creatinine 1.93 Troponin I 0.089 Recent investigations February 12, 2024: White count 10.2 hemoglobin 11.2 platelets 200 sodium 141 potassium 4.2 BUN 22.3 creatinine 1.5 Ultrasound gallbladder: Gallbladder multiple echogenic foci. CBD within normal limits. CT abdomen pelvis without contrast: Gallstones. Stable appearance suspected seroma right rectus abdominis muscle. Assessment and plan: -Lower abdominal pain with fever chills. Tenderness. CT scan unremarkable. Empirically will give IV ceftriaxone -Chronic ostomy -Gallstones. Likely asymptomatic. No right upper quadrant tenderness #Hypertension: Amlodipine. Toprol-XL -CKD with ROSELYN possibly from underlying infection from ATN Recent creatinine was 1.5. Now 1.93 -CAD with stent Toprol-XL -Anemia in the setting of chronic kidney disease. Not relevant no ACS -Primary osteoarthritis Pain medication as needed -History of prostate cancer with radiation and chemo in 2020. #Diabetes mellitus: Tresiba. Follow Accu-Cheks #Hyperlipidemia: Lipitor #GERD: Protonix -Full code IV fluids. Clear liquid diet. IV ceftriaxone. General surgery consulted. Past Medical History Past Medical History: Cancer, Chest Pain / Angina, Diabetes Mellitus, Eye Disorder, GERD/Reflux, Hyperlipidemia, Hypertension, Osteoarthritis (OA), Prostate Disorder, Renal Disease Additional Past Medical History / Comment(s): HX OF ULCERATIVE COLITIS, ileos jeancarlos PARASTOMAL HERNIA, PROSTATE CA WITH RADIATION AND CHEMO IN 2020, LOW KIDNEY FUNCTION,Covid Dec 2022, Influenza A Jun 2023, eye condition, unsure of name. History of Any Multi-Drug Resistant Organisms: MRSA Date of last positivie culture/infection: 11/07/14 MDRO Source:: Scalp Past Surgical History: Appendectomy, Bowel Resection, Heart Catheterization, Heart Catheterization With Stent Additional Past Surgical History / Comment(s): COLECTOMY, RECTUM REMOVED, ELLIOTT CATARACTS removed, ILEOSTOMY, HERNIA SURGERY. Past Anesthesia/Blood Transfusion Reactions: No Reported Reaction Additional Past Anesthesia/Blood Transfusion Reaction / Comment(s): no problems with prior blood transfusions. Date of Last Stent Placement:: 08/01/2023 Past Psychological History: No Psychological Hx Reported Smoking Status: Never smoker Past Alcohol Use History: None Reported Past Drug Use History: None Reported - Past Family History Mother Family Medical History: Cancer Additional Family Medical History / Comment(s): LUNG CANCER. Father Family Medical History: Cancer Additional Family Medical History / Comment(s): MELANOMA/BRAIN CANCER. Medications and Allergies Home Medications Medication Instructions Recorded Confirmed Type Aspirin EC [Ecotrin Low Dose] 81 mg PO DAILY 11/08/18 02/17/24 History Ergocalciferol (Vitamin D2) 1,250 mcg PO Q14D 06/25/20 02/17/24 History [Drisdol (50,000 Iu)] allopurinoL [Zyloprim] 200 mg PO DAILY 10/21/21 02/17/24 History Dapagliflozin Propanediol [Farxiga] 10 mg PO DAILY 11/05/21 02/17/24 History Gabapentin [Neurontin] 100 mg PO HS 06/30/23 02/17/24 History Torsemide [Demadex] 30 mg PO Q2D 06/30/23 02/17/24 History Atorvastatin [Lipitor] 40 mg PO DAILY 07/25/23 02/17/24 History Insulin Aspart [NovoLOG Flexpen] 30 - 40 units SQ AC-TID 08/16/23 02/17/24 History Isosorbide Mononitrate ER [Imdur] 30 mg PO DAILY 08/16/23 02/17/24 History Torsemide [Demadex] 40 mg PO Q2D 08/16/23 02/17/24 History Clopidogrel [Plavix] 75 mg PO DAILY #30 tab 09/01/23 02/17/24 Rx Escitalopram [Lexapro] 10 mg PO DAILY 02/10/24 02/17/24 History Insulin Degludec [Tresiba 50 units SQ HS 02/10/24 02/17/24 History Flextouch U-200 Pen] Pantoprazole [Protonix] 40 mg PO DAILY 02/10/24 02/17/24 History atenoloL [Tenormin] 50 mg PO DAILY 02/10/24 02/17/24 History calcitrioL 0.25 mcg PO MO 02/10/24 02/17/24 History Agpnmrny-Apbfvdujse-Xikd Oint 1 applic TOPICAL DAILY each 02/13/24 02/17/24 Rx [Triple Antibiotic Ointment] amLODIPine [Norvasc] 5 mg PO DAILY tab 02/13/24 02/17/24 Rx Allergies Allergy/AdvReac Type Severity Reaction Status Date / Time ibuprofen [From Motrin] Allergy Anaphylaxis Verified 02/17/24 08:58 Physical Exam Vitals: Vital Signs Temp Pulse Resp BP Pulse Ox 02/17/24 09:55 97.5 F L 61 20 139/63 100 02/17/24 08:16 54 L 02/17/24 08:09 97 02/17/24 08:07 56 L 02/17/24 07:36 51 L 16 144/67 94 L 02/17/24 05:00 55 L 16 118/58 100 02/17/24 03:21 63 19 116/54 99 02/17/24 01:00 68 19 109/56 95 02/17/24 00:00 98.9 F 66 20 114/50 96 02/16/24 23:54 66 02/16/24 23:48 68 02/16/24 22:00 81 20 127/46 96 02/16/24 20:03 26 H 02/16/24 19:50 100.5 F H 93 24 186/74 92 L Intake and Output 02/16/24 02/17/24 02/17/24 22:59 06:59 14:59 Other: Weight 115.666 kg Results CBC & Chem 7: 02/17/24 04:31 02/17/24 04:31 Labs: Abnormal Lab Results - Last 24 Hours (Table) 02/16/24 02/16/24 02/16/24 Range/Units 20:21 20:21 20:21 WBC 13.4 H (3.8-10.6) k/uL RBC 4.00 L (4.30-5.90) m/uL Hgb 11.7 L (13.0-17.5) gm/dL Hct 36.2 L (39.0-53.0) % RDW 18.7 H (11.5-15.5) % Neutrophils # 12.3 H (1.3-7.7) k/uL Lymphocytes # 0.2 L (1.0-4.8) k/uL Carbon Dioxide 21 L (22-30) mmol/L BUN 24 H (9-20) mg/dL Creatinine 1.69 H (0.66-1.25) mg/dL Glucose 157 H (74-99) mg/dL Plasma Lactic Acid Cecil 2.2 H* (0.7-2.0) mmol/L Calcium (8.4-10.2) mg/dL Phosphorus (2.5-4.5) mg/dL Magnesium 1.5 L (1.6-2.3) mg/dL Total Protein (6.3-8.2) g/dL Albumin (3.5-5.0) g/dL Urine Protein (Negative) Urine Glucose (UA) (Negative) Urine Blood (Negative) Ur Leukocyte Esterase (Negative) Amorphous Sediment (None) /hpf Urine Mucus (None) /hpf 02/16/24 02/16/24 02/17/24 Range/Units 22:06 23:55 04:31 WBC 17.5 H (3.8-10.6) k/uL RBC 3.82 L (4.30-5.90) m/uL Hgb 11.0 L (13.0-17.5) gm/dL Hct 35.0 L (39.0-53.0) % RDW 18.6 H (11.5-15.5) % Neutrophils # 16.1 H (1.3-7.7) k/uL Lymphocytes # 0.5 L (1.0-4.8) k/uL Carbon Dioxide (22-30) mmol/L BUN (9-20) mg/dL Creatinine (0.66-1.25) mg/dL Glucose (74-99) mg/dL Plasma Lactic Acid Cecil 2.4 H* (0.7-2.0) mmol/L Calcium (8.4-10.2) mg/dL Phosphorus (2.5-4.5) mg/dL Magnesium (1.6-2.3) mg/dL Total Protein (6.3-8.2) g/dL Albumin (3.5-5.0) g/dL Urine Protein 1+ H (Negative) Urine Glucose (UA) 4+ H (Negative) Urine Blood Small H (Negative) Ur Leukocyte Esterase Trace H (Negative) Amorphous Sediment Rare H (None) /hpf Urine Mucus Rare H (None) /hpf 02/17/24 Range/Units 04:31 WBC (3.8-10.6) k/uL RBC (4.30-5.90) m/uL Hgb (13.0-17.5) gm/dL Hct (39.0-53.0) % RDW (11.5-15.5) % Neutrophils # (1.3-7.7) k/uL Lymphocytes # (1.0-4.8) k/uL Carbon Dioxide 19 L (22-30) mmol/L BUN 26 H (9-20) mg/dL Creatinine 1.93 H (0.66-1.25) mg/dL Glucose 210 H (74-99) mg/dL Plasma Lactic Acid Cecil (0.7-2.0) mmol/L Calcium 8.1 L (8.4-10.2) mg/dL Phosphorus 5.0 H (2.5-4.5) mg/dL Magnesium (1.6-2.3) mg/dL Total Protein 6.0 L (6.3-8.2) g/dL Albumin 3.1 L (3.5-5.0) g/dL Urine Protein (Negative) Urine Glucose (UA) (Negative) Urine Blood (Negative) Ur Leukocyte Esterase (Negative) Amorphous Sediment (None) /hpf Urine Mucus (None) /hpf
[2024-02-17] MEDS ORDERED: INSULIN DETEMIR (LEVEMIR) 100 UNIT/ML SYR SQ SCH (21:00)
[2024-02-17 21:44] LABS: Glucose,Whole Blood 233 mg/dL (70-110)
[2024-02-17] MEDS: INSULIN DETEMIR (LEVEMIR) 100 UNIT/ML SYR SQ SCH (21:48)
[2024-02-17] MEDS: INSULIN ASPART (NovoLOG) 100 UNIT/ML VIAL SQ SCH (21:49)
--- NOTE | 2024-02-18 05:26 | P.CON ---
Consult Note - . Consult date: 02/18/24 Assessment/Plan:: 73-year-old male presents for generalized weakness. Patient was recently admitted to the hospital from February 09 through February 12. He was then found to have cholelithiasis. He was seen by surgeon during this admission. Surgeon at that time recommended cholecystectomy and patient declined. In July of this year. patient underwent successful stent to the LAD and second diagonal branch. Patient went home was doing well for few days. Yesterday, the patient started having significant lower abdominal pain. No epigastric or RUQ pain. Some fever and chills. CT-AP performed in the ER showed no acute process. It showed gallstones without evidence of cholecystitis and a chronic parastomal hernia without signs of obstruction. Review of Systems ROS Statement: Those systems with pertinent positive or pertinent negative responses have been documented in the HPI. Past Medical History Past Medical History: Cancer, Chest Pain / Angina, Diabetes Mellitus, Eye Disorder, GERD/Reflux, Hyperlipidemia, Hypertension, Osteoarthritis (OA), Prostate Disorder, Renal Disease Additional Past Medical History / Comment(s): HX OF ULCERATIVE COLITIS, ileostomy PARASTOMAL HERNIA, PROSTATE CA WITH RADIATION AND CHEMO IN 2020, LOW KIDNEY FUNCTION,Covid Dec 2022, Influenza A Jun 2023, eye condition, unsure of name. History of Any Multi-Drug Resistant Organisms: MRSA Date of last positivie culture/infection: 11/07/14 MDRO Source:: Scalp Past Surgical History: Appendectomy, Bowel Resection, Heart Catheterization, Heart Catheterization With Stent Additional Past Surgical History / Comment(s): COLECTOMY, RECTUM REMOVED, ELLIOTT CATARACTS removed, ILEOSTOMY, HERNIA SURGERY. Past Anesthesia/Blood Transfusion Reactions: No Reported Reaction Additional Past Anesthesia/Blood Transfusion Reaction / Comment(s): no problems with prior blood transfusions. Date of Last Stent Placement:: 08/01/2023 Past Psychological History: No Psychological Hx Reported Smoking Status: Never smoker Past Alcohol Use History: None Reported Past Drug Use History: None Reported - Past Family History Mother Family Medical History: Cancer Additional Family Medical History / Comment(s): LUNG CANCER. Father Family Medical History: Cancer Additional Family Medical History / Comment(s): MELANOMA/BRAIN CANCER. General Exam Limitations: no limitations General appearance: alert, in no apparent distress Head exam: Present: atraumatic, normocephalic, normal inspection Eye exam: Present: normal appearance, PERRL, EOMI. Absent: scleral icterus, conjunctival injection, periorbital swelling ENT exam: Present: normal exam, mucous membranes moist Neck exam: Present: normal inspection. Absent: tenderness, meningismus, lymphadenopathy Respiratory exam: Present: normal lung sounds bilaterally. Absent: respiratory distress, wheezes, rales, rhonchi, stridor Cardiovascular Exam: Present: regular rate, normal rhythm, normal heart sounds. Absent: systolic murmur, diastolic murmur, rubs, gallop, clicks GI/Abdominal exam: Present: soft, normal bowel sounds. Absent: distended, tenderness, guarding, rebound, rigid Extremities exam: Present: normal inspection, full ROM, normal capillary refill. Absent: tenderness, pedal edema, joint swelling, calf tenderness Back exam: Present: normal inspection Neurological exam: Present: alert, oriented X3, CN II-XII intact Psychiatric exam: Present: normal affect, normal mood Skin exam: Present: warm, dry, intact, normal color. Absent: rash 73 year old male with lower abdominal pain. CT-AP shows no acute process. It shows cholelithiasis without evidence of cholecystitis. It also shows chronic parastomal hernia without sign of obstruction -Patients symptoms and imaging not consistent with gallbladder pathology. Do not recommend cholecystectomy -Clear Liquid Diet, ADAT -Rocephin/Flagyl -Pain and Nausea Control -Will Follow Kiet Coello DO [facility] [phone]
[2024-02-18 07:26] LABS: Chol/HDL Ratio 3.86 Ratio; LDL Cholesterol,Calculated 93.1 mg/dL (0.0-131.0); VLDL Calculation 19.54 mg/dL (5.00-40.00)
[2024-02-18 08:29] LABS: Glucose,Whole Blood 119 mg/dL (70-110)
[2024-02-18] MEDS ORDERED: TORSEMIDE 20 MG TAB PO SCH (09:00)
[2024-02-18 09:08] LABS: Anisocytosis Slight; Basophils % (A) 0 %; Eosinophils # (A) 0.7 k/uL (0-0.7); Eosinophils % (A) 8 %; HCT 35.2 % (39.0-53.0); HGB 11.1 gm/dL (13.0-17.5); Hypochromasia Slight; Lymphocytes # (A) 0.5 k/uL (1.0-4.8); Lymphocytes % (A) 6 %; MCHC 31.6 g/dL (31.0-37.0); Mean Platelet Volume 7.6; Monocytes # (A) 0.4 k/uL (0-1.0); Monocytes % (A) 5 %; Neutrophils # (A) 6.6 k/uL (1.3-7.7); Neutrophils % (A) 78 %; Platelet Count 315 k/uL (150-450); RBC 3.83 m/uL (4.30-5.90); RDW 18.5 % (11.5-15.5); WBC 8.4 k/uL (3.8-10.6)
[2024-02-18 09:20] LABS: ALT 29 U/L (4-49); AST 24 U/L (17-59); African American GFR (CKD) 45 (>60 ml/min/1.73 sqM); Albumin 3.2 g/dL (3.5-5.0); Alkaline Phosphatase 114 U/L (38-126); Anion Gap 6 mmol/L; Blood Urea Nitrogen 25 mg/dL (9-20); Calcium 8.7 mg/dL (8.4-10.2); Carbon Dioxide 26 mmol/L (22-30); Chloride 106 mmol/L (98-107); Glucose 126 mg/dL (74-99); Non-African American GFR(CKD) 39 (>60 ml/min/1.73 sqM); Potassium 3.7 mmol/L (3.5-5.1); Sodium 138 mmol/L (137-145); Total Bilirubin 0.4 mg/dL (0.2-1.3); Total Protein 6.3 g/dL (6.3-8.2)
--- NOTE | 2024-02-18 09:41 | P.PN ---
Subjective Progress Note Date: 02/18/24 HISTORY OF PRESENTING ILLNESS Patient with past medical history CAD status post PCI to LAD and second jackelyn gonal, type 2 diabetes, hypertension, dyslipidemia, dilated thoracic aorta, CKD and overweight. He is known to Dr. Vieyra. Patient was recently in the hospital with symptoms of increased weakness, sh ortness of breath and abdominal pain. He was being evaluated and was discharged recently. He came back to the hospital because of similar complaints of shortness of breath and lower extremity edema getting mildly worse. He was discharged on torsemide 30 mg daily. Last echo from July 2023 shows preserved LV systolic function, mild MR, Cardiac cath in June 2023 showed severe disease and he received PCI Home medication amlodipine 5, aspirin 81, Plavix, atenolol 50, atorvastatin 40, Farxiga 10, Imdur 30, torsemide 20 alternating with 30. Progress note February 18, 2024 Patient reports feeling much better. He denies any chest pain chest pressure. Telemetry shows sinus rhythm. Patient's kidney function has improved with IV diuretics. He feels less short of breath. Procalcitonin is elevated. PHYSICAL EXAMINATION Vital signs reviewed. Head: Normocephalic. Eyes: Sclerae nonicteric. Neck: Brisk carotid upstroke, no jugular venous distention. Lungs: Mild crackles audible in bilateral lung bennett Heart: Regular rate and rhythm, S1-S2, , no murmur or rub. Abdomen: Soft nontender, positive bowel sounds. Extremities: 1-2+ pitting edema in bilateral lower extremity up to mid knee Neuro: Alert, oritented, no focal deficits. Detailed neuro exam was not performed. ASSESSMENT Mild HFpEF exacerbation Mild elevated troponin, most likely because of mild CHF exacerbation and poor renal clearance in setting of ROSELYN. 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 Trend troponin and see if it is uptrending or downtrending. Discontinue atenolol and start metoprolol succinate 25 mg daily due to low resting heart rate Discontinue torsemide. Start Lasix 40 mg IV twice daily. Continue aspirin, Plavix, Lipitor, Farxiga Procalcitonin significantly elevated. Kidney function is improving with diuretics. Would request primary team to evaluate the need for antibiotics for elevated procalcitonin. Objective - Vital Signs Vital signs: Vital Signs Temp 97.9 F 02/17/24 18:10 Pulse 64 02/18/24 08:28 Resp 18 02/18/24 08:28 BP 120/61 02/18/24 08:28 Pulse Ox 94 L 02/18/24 08:28 FiO2 - Labs CBC & Chem 7: 02/18/24 08:52 02/18/24 08:52 Labs: Abnormal Lab Results - Last 24 Hours (Table) 02/17/24 02/17/24 02/17/24 Range/Units 13:59 13:59 13:59 RBC (4.30-5.90) m/uL Hgb (13.0-17.5) gm/dL Hct (39.0-53.0) % RDW (11.5-15.5) % Lymphocytes # (1.0-4.8) k/uL BUN (9-20) mg/dL Creatinine (0.66-1.25) mg/dL Glucose (74-99) mg/dL POC Glucose (mg/dL) (70-110) mg/dL Troponin I 0.089 H* (0.000-0.034) ng/mL Albumin (3.5-5.0) g/dL HDL Cholesterol 39.40 L (40.00-60.00) mg/dL Procalcitonin 21.30 H (0.02-0.50) ng/mL 02/17/24 02/18/24 02/18/24 Range/Units 21:42 08:27 08:52 RBC 3.83 L (4.30-5.90) m/uL Hgb 11.1 L (13.0-17.5) gm/dL Hct 35.2 L (39.0-53.0) % RDW 18.5 H (11.5-15.5) % Lymphocytes # 0.5 L (1.0-4.8) k/uL BUN (9-20) mg/dL Creatinine (0.66-1.25) mg/dL Glucose (74-99) mg/dL POC Glucose (mg/dL) 233 H 119 H (70-110) mg/dL Troponin I (0.000-0.034) ng/mL Albumin (3.5-5.0) g/dL HDL Cholesterol (40.00-60.00) mg/dL Procalcitonin (0.02-0.50) ng/mL 02/18/24 Range/Units 08:52 RBC (4.30-5.90) m/uL Hgb (13.0-17.5) gm/dL Hct (39.0-53.0) % RDW (11.5-15.5) % Lymphocytes # (1.0-4.8) k/uL BUN 25 H (9-20) mg/dL Creatinine 1.70 H (0.66-1.25) mg/dL Glucose 126 H (74-99) mg/dL POC Glucose (mg/dL) (70-110) mg/dL Troponin I (0.000-0.034) ng/mL Albumin 3.2 L (3.5-5.0) g/dL HDL Cholesterol (40.00-60.00) mg/dL Procalcitonin (0.02-0.50) ng/mL Microbiology - Last 24 Hours (Table) 02/16/24 23:20 Blood Culture - Preliminary Blood
[2024-02-18] MEDS: metroNIDAZOLE-NS PMX 500 MG in SALINE 1 100ML.BAG IVPB SCH (10:09)
[2024-02-18 13:18] LABS: Glucose,Whole Blood 175 mg/dL (70-110)
--- NOTE | 2024-02-18 14:33 | CA ---
Transthoracic Echo Report Name: Mike Vidal Age: 73 Gender: M : 1950 Exam Date: 02/17/2024 09:13 Exam Location: [facility] Ht (in): 66 Wt (lb): 270 Ordering Physician: Devin Davis DO Attending/Referring Phys: [id number], Susan Show Card Letterer Renetta Ferrell, KRYSTYNA Procedure CPT: Indications: chf Cardiac Hx: Technical Quality: Poor Contrast 1: Definity Total Dose (mL): 2 Contrast 2: Total Dose (mL): MEASUREMENTS (Male / Female) Normal Values 2D ECHO LV Diastolic Diameter PLAX 5.0 cm 4.2 - 5.9 / 3.9 - 5.3 cm LV Systolic Diameter PLAX 2.4 cm IVS Diastolic Thickness 1.2 cm 0.6 - 1.0 / 0.6 - 0.9 cm LVPW Diastolic Thickness 1.2 cm 0.6 - 1.0 / 0.6 - 0.9 cm LV Relative Wall Thickness 0.5 RV Internal Dim ED PLAX 2.3 cm LA Systolic Diameter LX 3.7 cm 3.0 - 4.0 / 2.7 - 3.8 cm LA Volume 81.6 cm??? 18 - 58 / 22 - 52 cm??? LA Volume Index 33.3 cm???/m??? 16 - 28 cm???/m??? M-MODE Aortic Root Diameter MM 3.0 cm LA Systolic Diameter MM 4.5 cm LA Ao Ratio MM 1.5 AV Cusp Separation MM 2.0 cm DOPPLER AV Peak Velocity 163.0 cm/s AV Peak Gradient 10.6 mmHg MV Area PHT 2.0 cm??? Mitral E Point Velocity 89.3 cm/s Mitral A Point Velocity 93.8 cm/s Mitral E to A Ratio 1.0 MV Deceleration Time 382.6 ms TR Peak Velocity 307.2 cm/s TR Peak Gradient 37.8 mmHg Right Ventricular Systolic Press 51.3 mmHg FINDINGS Left Ventricle Left ventricular ejection fraction is estimated at 55-60 %. Mildly increased septal wall thickness. Normal left ventricular systolic function with no obvious regional wall motion abnormalities. Left ventricular cavity size normal. Right Ventricle Mild right ventricular dilatation. Moderate pulmonary hypertension. Right Atrium Normal right atrial size. Left Atrium Moderate left atrial dilatation. Mitral Valve Structurally normal mitral valve. Trace to mild mitral regurgitation. No mitral stenosis. Aortic Valve Trileaflet aortic valve. No aortic valve stenosis or regurgitation. Tricuspid Valve Structurally normal tricuspid valve. Mild tricuspid regurgitation. No tricuspid stenosis. Pulmonic Valve Structurally normal pulmonic valve. Trace pulmonic regurgitation. No pulmonic stenosis. Pericardium No pericardial or pleural effusion. Aorta Normal size aortic root and proximal ascending aorta. CONCLUSIONS LVEF 55 to 60% No obvious regional wall motion abnormality Mild concentric LVH Mild RV dilatation with moderate pulm hypertension RVSP 51 mmHg Moderate left atrial dilatation No significant valve dysfunction Previewed by: Dr Zev Ma (Electronically Signed) Final Date: 18 February 2024 14:32
--- NOTE | 2024-02-18 16:23 | P.PN ---
Progress Note - Text Progress Note Date: 02/18/24 Chief Complaint: Lower abdominal pain 73-year-old male with a past medical history of hypertension, hyperlipidemia, type 2 diabetes, mood disorder, and CAD presents for generalized weakness. ostomy for 25 years, Patient recently in the hospital from February 09 through February 12. He was then found to have gallstones. Not really felt to be his cause of his symptoms. He was seen by surgery. In July of this year patient underwent successful stent to the LAD and second diagonal branch by Dr. Bales. On last admission he was suggested to have cholecystectomy by surgery Dr Rock. As symptoms were not clear and since patient had stents only in July of this year he was rather reluctant. Patient went home was doing well for 3 days. Yesterday started patient having significant lower abdominal pain. Some fever and chills. Also a headache. Had a baseline patient normally has about 5 soft stools a day. No respiratory or urinary symptoms. CT scan ordered for this afternoon did not show any acute process. Again showing gallstones. Patient did say he has some shortness of breath but that is his baseline. . February 17: Patient no further abdominal pain. Colostomy bag working well. No nausea vomiting. Tolerated clear liquid. Advance to full liquid. Seen by surgery. Not felt to be gallstone. Active Medications Acetaminophen (Acetaminophen Tab 325 Mg Tab) 650 mg PO Q6HR PRN PRN Reason: Mild Pain or Fever > 100.5 Albuterol/Ipratropium (Ipratropium-Albuterol 3 Ml Neb) 3 ml INHALATION RT-TID PRN PRN Reason: Shortness Of Breath Or Wheezing Last Admin: 02/17/24 08:07 Dose: 3 ml Allopurinol (Allopurinol 100 Mg Tab) 200 mg PO DAILY [facility] Last Admin: 02/18/24 09:04 Dose: 200 mg Amlodipine Besylate (Amlodipine 5 Mg Tab) 5 mg PO DAILY [facility] Last Admin: 02/18/24 09:04 Dose: 5 mg Aspirin (Aspirin 81 Mg) 81 mg PO DAILY [facility] Last Admin: 02/18/24 09:04 Dose: 81 mg Atorvastatin Calcium (Atorvastatin 40 Mg Tab) 40 mg PO DAILY [facility] Last Admin: 02/18/24 09:04 Dose: 40 mg Clopidogrel Bisulfate (Clopidogrel 75 Mg Tab) 75 mg PO DAILY [facility] Last Admin: 02/18/24 09:04 Dose: 75 mg Dapagliflozin (Dapagliflozin Propanediol 10 Mg Tablet) 10 mg PO DAILY [facility] Last Admin: 02/18/24 09:04 Dose: 10 mg Dextrose/Water (Dextrose 50% Syringe 50 Ml) 25 ml IVP PER PROTOCOL PRN; Protocol PRN Reason: Hypoglycemia Dextrose/Water (Dextrose 50% Syringe 50 Ml) 50 ml IVP PER PROTOCOL PRN; Protocol PRN Reason: Hypoglycemia Enoxaparin Sodium (Enoxaparin 40 Mg/0.4 Ml Syringe) 40 mg SQ DAILY [facility] Last Admin: 02/18/24 09:05 Dose: 40 mg Escitalopram Oxalate (Escitalopram 10 Mg Tab) 10 mg PO DAILY [facility] Last Admin: 02/18/24 09:04 Dose: 10 mg Furosemide (Furosemide 10 Mg/Ml 4 Ml Vial) 40 mg IV Q12HR [facility] Last Admin: 02/18/24 09:04 Dose: 40 mg Gabapentin (Gabapentin 100 Mg Cap) 100 mg PO [facility] Last Admin: 02/17/24 20:28 Dose: 100 mg Ceftriaxone Sodium 2 gm/ (Sodium Chloride) 50 mls @ 100 mls/hr IVPB Q24HR [facility]; Protocol Last Admin: 02/18/24 09:08 Dose: 100 mls/hr Sodium Chloride (Saline 0.9%) 1,000 mls @ 20 mls/hr IV .Q24H [facility] Last Admin: 02/17/24 21:50 Dose: 20 mls/hr Metronidazole 500 mg/ IV (Solution) 100 mls @ 100 mls/hr IVPB Q8HR [facility]; Protocol Last Admin: 02/18/24 10:09 Dose: 100 mls/hr Insulin Aspart (Insulin Aspart (Novolog) 100 Unit/Ml Vial) 0 unit SQ [facility]; Protocol Last Admin: 02/18/24 13:25 Dose: 3 unit Insulin Detemir (Insulin Detemir (Levemir) 100 Unit/Ml Syr) 40 unit SQ [facility] Last Admin: 02/17/24 21:48 Dose: 40 unit Isosorbide Mononitrate (Isosorbide Mononitrate Er 30 Mg Tab.Er.24h) 30 mg PO DAILY [facility] Last Admin: 02/18/24 09:04 Dose: 30 mg Metoprolol Succinate (Metoprolol Succinate (Er) 25 Mg Tab.Er.24h) 25 mg PO DAILY [facility] Last Admin: 02/18/24 09:04 Dose: 25 mg Morphine Sulfate (Morphine Sulfate 4 Mg/Ml Syringe) 4 mg IV Q4HR PRN PRN Reason: Severe Pain (Scale 7 to 10) Naloxone HCl (Naloxone 0.4 Mg/Ml 1 Ml Vial) 0.2 mg IV Q2M PRN PRN Reason: Opioid Reversal Pantoprazole Sodium (Pantoprazole 40 Mg Tablet) 40 mg PO DAILY [facility] Last Admin: 02/18/24 09:03 Dose: 40 mg Social history: Non-smoking. No alcohol. On examination: VITAL SIGNS: Afebrile, 62, 18, 143 x 59, 96% room air GENERAL APPEARANCE: Lying in bed, comfortable HEENT: Normal external appearance of nose and ear. Oral cavity normal EYES: Pupils equal. Conjunctiva normal. NECK: JVD not raised. Mass not palpable. RESPIRATORY: Respiratory effort normal. Lungs clear to auscultation. CARDIOVASCULAR: First and second sounds normal. No edema. ABDOMEN: Soft. Liver and spleen not palpable. No tenderness. No right upper quadrant tenderness. No mass palpable. Colostomy bag with liquid stool PSYCHIATRY: Alert and oriented x3. Mood and affect a bit anxious INVESTIGATIONS, reviewed in the clinical context: February 17: White count 8.4 hemoglobin 11.1 potassium 3.7 BUN 25 creatinine 1.7 February 17, 2024: White count 7.5 hemoglobin 11 platelets 280 sodium 137 potassium 4.2 BUN 26 creatinine 1.93 Troponin I 0.089 Recent investigations February 12, 2024: White count 10.2 hemoglobin 11.2 platelets 200 sodium 141 potassium 4.2 BUN 22.3 creatinine 1.5 Ultrasound gallbladder: Gallbladder multiple echogenic foci. CBD within normal limits. CT abdomen pelvis without contrast: Gallstones. Stable appearance suspected seroma right rectus abdominis muscle. Assessment and plan: -Lower abdominal pain with fever chills. Tenderness. CT scan unremarkable.: Improving. Empirically will give IV ceftriaxone -Chronic ostomy-functioning well -Gallstones. Likely asymptomatic. No right upper quadrant tenderness Seen by surgery. No indication for surgery -Chronic parastomal hernia #Hypertension: Amlodipine. Toprol-XL -CKD with ROSELYN possibly from underlying infection from ATN Recent creatinine was 1.5. Now 1.93 -CAD with stent Toprol-XL -Anemia in the setting of chronic kidney disease. Not relevant no ACS -Primary osteoarthritis Pain medication as needed -History of prostate cancer with radiation and chemo in 2020. #Diabetes mellitus: Tresiba. Follow Accu-Cheks #Hyperlipidemia: Lipitor #GERD: Protonix -Full code Discussed with patient . No further intervention per surgery. Advance to full liquid and advance as tolerated. Clinically doing much better. Past Medical History Past Medical History: Cancer, Chest Pain / Angina, Diabetes Mellitus, Eye Disorder, GERD/Reflux, Hyperlipidemia, Hypertension, Osteoarthritis (OA), Prostate Disorder, Renal Disease Additional Past Medical History / Comment(s): HX OF ULCERATIVE COLITIS, ileostomy PARASTOMAL HERNIA, PROSTATE CA WITH RADIATION AND CHEMO IN 2020, LOW KIDNEY FUNCTION,Covid Dec 2022, Influenza A Jun 2023, eye condition, unsure of name. History of Any Multi-Drug Resistant Organisms: MRSA Date of last positivie culture/infection: 11/07/14 MDRO Source:: Scalp Past Surgical History: Appendectomy, Bowel Resection, Heart Catheterization, Heart Catheterization With Stent Additional Past Surgical History / Comment(s): COLECTOMY, RECTUM REMOVED, ELLIOTT CATARACTS removed, ILEOSTOMY, HERNIA SURGERY. Past Anesthesia/Blood Transfusion Reactions: No Reported Reaction Additional Past Anesthesia/Blood Transfusion Reaction / Comment(s): no problems with prior blood transfusions. Date of Last Stent Placement:: 08/01/2023 Past Psychological History: No Psychological Hx Reported Smoking Status: Never smoker Past Alcohol Use History: None Reported Past Drug Use History: None Reported
[2024-02-18 16:54] LABS: Glucose,Whole Blood 140 mg/dL (70-110)
[2024-02-18 21:46] LABS: Glucose,Whole Blood 196 mg/dL (70-110)
--- NOTE | 2024-02-18 22:55 | P.CONS ---
History of Present Illness - Reason for Consult Consult date: 02/18/24 Fever Requesting physician: Jamaal Shea - Chief Complaint Fever and abdominal pain x 1 day - History of Present Illness Patient is a 73-year-old male with a past medical history significant for diabetes mellitus hypertension hyperlipidemia ulcerative colitis in this patient who is status post subtotal colectomy end ileostomy patient was recently admitted to the hospital with lower abdominal pain thought to be related to the rectus sheath hematoma patient was stabilized and discharged home patient now presenting back to the hospital for evaluation of fever and mental status changes patient has been complaining of weakness and abdominal pain mostly the l ower abdominal area moderate intensity without any radiation denies have any nausea no vomiting and did have output in his colostomy patient on presentation to hospital did have low-grade fever 100.5 F patient was not tachycardic hypotensive or hypoxic and no need for supplemental oxygen at patient did have a white count of 17.5 with a left shift BUN and creatinine has been mildly elevated liver enzymes are normal urine has been negative influenza RSV COVID testing was negative blood cultures obtained she currently pending patient did have abdominal pelvis CT however it was done without contrast and did not show any evidence of acute abdominal process and cholelithiasis, patient has been st arted on Rocephin and Flagyl infectious disease was consulted for fever Review of Systems Positive point and negatives has been mentioned in the HPI, complete review of systems was performed and all other systems are negative Past Medical History Past Medical History: Cancer, Chest Pain / Angina, Diabetes Mellitus, Eye Disorder, GERD/Reflux, Hyperlipidemia, Hypertension, Osteoarthritis (OA), Prostate Disorder, Renal Disease Additional Past Medical History / Comment(s): HX OF ULCERATIVE COLITIS, ileost kayley PARASTOMAL HERNIA, PROSTATE CA WITH RADIATION AND CHEMO IN 2020, LOW KIDNEY FUNCTION,Covid Dec 2022, Influenza A Jun 2023, eye condition, unsure of name. History of Any Multi-Drug Resistant Organisms: MRSA Year Discovered:: 11/07/14 MDRO Source:: Scalp Past Surgical History: Appendectomy, Bowel Resection, Heart Catheterization, Heart Catheterization With Stent Additional Past Surgical History / Comment(s): COLECTOMY, RECTUM REMOVED, ELLIOTT CATARACTS removed, ILEOSTOMY, HERNIA SURGERY. Past Anesthesia/Blood Transfusion Reactions: No Reported Reaction Additional Past Anesthesia/Blood Transfusion Reaction / Comm: no problems with prior blood transfusions. Date of Last Stent Placement:: 08/01/2023 Past Psychological History: No Psychological Hx Reported Smoking Status: Never smoker Past Alcohol Use History: None Reported Past Drug Use History: None Reported - Past Family History Mother Family Medical History: Cancer Additional Family Medical History / Comment(s): LUNG CANCER. Father Family Medical History: Cancer Additional Family Medical History / Comment(s): MELANOMA/BRAIN CANCER. Medications and Allergies Home Medications Medication Instructions Recorded Confirmed Type Aspirin EC [Ecotrin Low Dose] 81 mg PO DAILY 11/08/18 02/17/24 History Ergocalciferol (Vitamin D2) 1,250 mcg PO Q14D 06/25/20 02/17/24 History [Drisdol (50,000 Iu)] allopurinoL [Zyloprim] 200 mg PO DAILY 10/21/21 02/17/24 History Dapagliflozin Propanediol [Farxiga] 10 mg PO DAILY 11/05/21 02/17/24 History Gabapentin [Neurontin] 100 mg PO HS 06/30/23 02/17/24 History Torsemide [Demadex] 30 mg PO Q2D 06/30/23 02/17/24 History Atorvastatin [Lipitor] 40 mg PO DAILY 07/25/23 02/17/24 History Insulin Aspart [NovoLOG Flexpen] 30 - 40 units SQ AC-TID 08/16/23 02/17/24 History Isosorbide Mononitrate ER [Imdur] 30 mg PO DAILY 08/16/23 02/17/24 History Torsemide [Demadex] 40 mg PO Q2D 08/16/23 02/17/24 History Clopidogrel [Plavix] 75 mg PO DAILY #30 tab 09/01/23 02/17/24 Rx Escitalopram [Lexapro] 10 mg PO DAILY 02/10/24 02/17/24 History Insulin Degludec [Tresiba 50 units SQ HS 02/10/24 02/17/24 History Flextouch U-200 Pen] Pantoprazole [Protonix] 40 mg PO DAILY 02/10/24 02/17/24 History atenoloL [Tenormin] 50 mg PO DAILY 02/10/24 02/17/24 History calcitrioL 0.25 mcg PO MO 02/10/24 02/17/24 History Jkafwghp-Ffgporuogh-Vnmo Oint 1 applic TOPICAL DAILY each 02/13/24 02/17/24 Rx [Triple Antibiotic Ointment] amLODIPine [Norvasc] 5 mg PO DAILY tab 02/13/24 02/17/24 Rx Allergies Allergy/AdvReac Type Severity Reaction Status Date / Time ibuprofen [From Motrin] Allergy Anaphylaxis Verified 02/17/24 08:58 Physical Exam Vitals: Vital Signs Temp Pulse Resp BP Pulse Ox 02/18/24 10:19 62 18 143/59 96 02/18/24 08:28 64 18 120/61 94 L 02/18/24 05:00 62 18 144/52 96 02/17/24 23:41 66 20 159/62 99 02/17/24 20:31 60 18 152/58 100 02/17/24 18:29 64 18 129/57 99 02/17/24 18:10 97.9 F 62 18 129/57 98 02/17/24 17:41 57 L 19 143/50 95 02/17/24 15:50 95 02/17/24 15:48 64 20 146/57 93 L GENERAL DESCRIPTION: Elderly male lying in bed, no distress. No tachypnea or accessory muscle of respiration use. HEENT: Shows Pallor , no scleral icterus. Oral mucous membrane is dry. No pharyngeal erythema or thrush NECK: Trachea central, no thyromegaly. LUNGS: Unlabored breathing. Clear to auscultation anteriorly. No wheeze or crackle. HEART: S1, S2, regular rate and rhythm. No loud murmur ABDOMEN: Soft, no tenderness , guarding or rigidity, no organomegaly EXTREMITIES: No edema of feet. SKIN: No rash, no masses palpable. NEUROLOGICAL: The patient is awake, alert, oriented x3, mood and affect normal. Results CBC & Chem 7: 02/18/24 08:52 02/18/24 08:52 Labs: Abnormal Lab Results - Last 24 Hours (Table) 02/17/24 02/17/24 02/17/24 Range/Units 13:59 13:59 13:59 RBC (4.30-5.90) m/uL Hgb (13.0-17.5) gm/dL Hct (39.0-53.0) % RDW (11.5-15.5) % Lymphocytes # (1.0-4.8) k/uL BUN (9-20) mg/dL Creatinine (0.66-1.25) mg/dL Glucose (74-99) mg/dL POC Glucose (mg/dL) (70-110) mg/dL Troponin I 0.089 H* (0.000-0.034) ng/mL Albumin (3.5-5.0) g/dL HDL Cholesterol 39.40 L (40.00-60.00) mg/dL Procalcitonin 21.30 H (0.02-0.50) ng/mL 02/17/24 02/18/24 02/18/24 Range/Units 21:42 08:27 08:52 RBC 3.83 L (4.30-5.90) m/uL Hgb 11.1 L (13.0-17.5) gm/dL Hct 35.2 L (39.0-53.0) % RDW 18.5 H (11.5-15.5) % Lymphocytes # 0.5 L (1.0-4.8) k/uL BUN (9-20) mg/dL Creatinine (0.66-1.25) mg/dL Glucose (74-99) mg/dL POC Glucose (mg/dL) 233 H 119 H (70-110) mg/dL Troponin I (0.000-0.034) ng/mL Albumin (3.5-5.0) g/dL HDL Cholesterol (40.00-60.00) mg/dL Procalcitonin (0.02-0.50) ng/mL 02/18/24 02/18/24 Range/Units 08:52 08:59 RBC (4.30-5.90) m/uL Hgb (13.0-17.5) gm/dL Hct (39.0-53.0) % RDW (11.5-15.5) % Lymphocytes # (1.0-4.8) k/uL BUN 25 H (9-20) mg/dL Creatinine 1.70 H (0.66-1.25) mg/dL Glucose 126 H (74-99) mg/dL POC Glucose (mg/dL) (70-110) mg/dL Troponin I 0.094 H* (0.000-0.034) ng/mL Albumin 3.2 L (3.5-5.0) g/dL HDL Cholesterol (40.00-60.00) mg/dL Procalcitonin (0.02-0.50) ng/mL Microbiology - Last 24 Hours (Table) 02/16/24 23:20 Blood Culture - Preliminary Blood Assessment and Plan (1) Fever Current Visit: Yes Status: Acute Code(s): R50.9 - FEVER, UNSPECIFIED SNOMED Code(s): 215518951 (2) Leukocytosis Current Visit: No Status: Acute Code(s): D72.829 - ELEVATED WHITE BLOOD CELL COUNT, UNSPECIFIED SNOMED Code(s): 989808599 Plan: 1patient presented to hospital with fever not feeling well and this patient also have elevated white count he did have a recent admission to the hospital about a week ago with similar symptoms and at that time CT of abdominal pelvis that was done with oral contrast shows evidence of reactive CT fluid collection possible hematoma now presenting back with a similar symptoms however CT has been done without contrast that could limit the sensitivity of this testing. 2we will review the CT with the radiologist in the a.m. 3- for now continue with the Rocephin and Flagyl to which his fever and white co unt has responded We will follow on clinical condition and cultures to further adjust medication if needed Thank you for this consultation we will follow the patient along with you Dictation was produced using [employer] dictation software. please excuse any grammatical, word or spelling errors. Time with Patient: Greater than 30
[2024-02-19 03:29] VITALS: PULSE 77
[2024-02-19 06:07] LABS: Glucose,Whole Blood 102 mg/dL (70-110)
[2024-02-19 08:11] LABS: African American GFR (CKD) 53 (>60 ml/min/1.73 sqM); Anion Gap 8 mmol/L; Blood Urea Nitrogen 19 mg/dL (9-20); Calcium 8.9 mg/dL (8.4-10.2); Carbon Dioxide 27 mmol/L (22-30); Chloride 106 mmol/L (98-107); Glucose 96 mg/dL (74-99); Non-African American GFR(CKD) 46 (>60 ml/min/1.73 sqM); Sodium 141 mmol/L (137-145)
[2024-02-19 08:55] VITALS: BP 131/59; RESP 20; TEMP 97.6
[2024-02-19] MEDS ORDERED: TORSEMIDE 20 MG TAB PO SCH (09:00)
[2024-02-19 11:55] LABS: Glucose,Whole Blood 169 mg/dL (70-110)
--- NOTE | 2024-02-19 23:11 | P.DS ---
Providers Date of admission: 02/16/24 22:40 Expected date of discharge: 02/19/24 Attending physician: Jamaal Shea Consults: 02/16/24 22:40 Consult Physician Routine Consulting Provider: Gage Valdez Consult Reason/Comments: dyspnea Do you want consulting provider notified?: Yes 02/17/24 12:04 Consult Physician Routine Consulting Provider: Kiet Coello Consult Reason/Comments: abd pain Do you want consulting provider notified?: Yes 02/17/24 20:28 Consult Physician Routine Consulting Provider: Krishan Ontiveros Consult Reason/Comments: Fever Do you want consulting provider notified?: Yes Primary care physician: [facility] Course: Chief Complaint: Lower abdominal pain 73-year-old male with a past medical history of hypertension, hyperlipidemia, type 2 diabetes, mood disorder, and CAD presents for generalized weakness. ostomy for 25 years, Patient recently in the hospital from February 09 through February 12. He was then found to have gallstones. Not really felt to be his cause of his symptoms. He was seen by surgery. In July of this year patient underwent successful stent to the LAD and second diagonal branch by Dr. Bales. On last admission he was suggested to have cholecystectomy by surgery Dr Rock. As symptoms were not clear and since patient had stents only in July of this year he was rather reluctant. Patient went home was doing well for 3 days. Yesterday started patient having significant lower abdominal pain. Some fever and chills. Also a headache. Had a baseline patient normally has about 5 soft stools a day. No respiratory or urinary symptoms. CT scan ordered for this afternoon did not show any acute process. Again showing gallstones. Patient did say he has some shortness of breath but that is his baseline. . February 17: Patient no further abdominal pain. Colostomy bag working well. No nausea vomiting. Tolerated clear liquid. Advance to full liquid. Seen by surgery. Not felt to be gallstone. February 18: Doing well. Discussed at length with the patient. This could have been a low-grade colitis though no obvious other diagnosis. Will complete a short course of antibiotic. Patient otherwise doing well. Per the surgical team does not gallstone. Given complete resolution of symptoms another 5 days of antibiotics. Colostomy bag working well. Social history: Non-smoking. No alcohol. On examination: VITAL SIGNS: 97.6, 77, 20, 131 x 59, 96% room air GENERAL APPEARANCE: Lying in bed, comfortable HEENT: Normal external appearance of nose and ear. Oral cavity normal EYES: Pupils equal. Conjunctiva normal. NECK: JVD not raised. Mass not palpable. RESPIRATORY: Respiratory effort normal. Lungs clear to auscultation. CARDIOVASCULAR: First and second sounds normal. No edema. ABDOMEN: Soft. Liver and spleen not palpable. No tenderness. No right upper quadrant tenderness. No mass palpable. Colostomy bag with liquid stool PSYCHIATRY: Alert and oriented x3. Mood and affect a bit anxious INVESTIGATIONS, reviewed in the clinical context: February 22: Sodium 141 potassium 4 creatinine 1.49 February 17: White count 8.4 hemoglobin 11.1 potassium 3.7 BUN 25 creatinine 1.7 February 17, 2024: White count 7.5 hemoglobin 11 platelets 280 sodium 137 potassium 4.2 BUN 26 creatinine 1.93 Troponin I 0.089 Recent investigations February 12, 2024: White count 10.2 hemoglobin 11.2 platelets 200 sodium 141 potassium 4.2 BUN 22.3 creatinine 1.5 Ultrasound gallbladder: Gallbladder multiple echogenic foci. CBD within normal limits. CT abdomen pelvis without contrast: Gallstones. Stable appearance suspected seroma right rectus abdominis muscle. Assessment and plan: -Lower abdominal pain with fever chills. Tenderness. CT scan unremarkable.: Could be mild colitis. Improved Empirically will give IV ceftriaxone Discharge on 5 days of Ceftin and Flagyl -Chronic ostomy-functioning well -Gallstones. asymptomatic. No right upper quadrant tenderness Seen by surgery. No indication for surgery -Chronic parastomal hernia #Hypertension: Amlodipine. Toprol-XL -CKD with ROSELYN possibly from underlying infection from ATN: ROSELYN component improved Recent creatinine was 1.5. On admission 1.93 -CAD with stent Toprol-XL -Anemia in the setting of chronic kidney disease. Not relevant no ACS -Primary osteoarthritis Pain medication as needed -History of prostate cancer with radiation and chemo in 2020. #Diabetes mellitus: Tresiba. Follow Accu-Cheks #Hyperlipidemia: Lipitor #GERD: Protonix -Full code Disposition: Home Past Medical History Past Medical History: Cancer, Chest Pain / Angina, Diabetes Mellitus, Eye Disorder, GERD/Reflux, Hyperlipidemia, Hypertension, Osteoarthritis (OA), Prostate Disorder, Renal Disease Additional Past Medical History / Comment(s): HX OF ULCERATIVE COLITIS, ileostomy PARASTOMAL HERNIA, PROSTATE CA WITH RADIATION AND CHEMO IN 2020, LOW KIDNEY FUNCTION,Covid Dec 2022, Influenza A Jun 2023, eye condition, unsure of name. History of Any Multi-Drug Resistant Organisms: MRSA Date of last positivie culture/infection: 11/07/14 MDRO Source:: Scalp Past Surgical History: Appendectomy, Bowel Resection, Heart Catheterization, Heart Catheterization With Stent Additional Past Surgical History / Comment(s): COLECTOMY, RECTUM REMOVED, ELLIOTT CATARACTS removed, ILEOSTOMY, HERNIA SURGERY. Past Anesthesia/Blood Transfusion Reactions: No Reported Reaction Additional Past Anesthesia/Blood Transfusion Reaction / Comment(s): no problems with prior blood transfusions. Date of Last Stent Placement:: 08/01/2023 Past Psychological History: No Psychological Hx Reported Smoking Status: Never smoker Past Alcohol Use History: None Reported Past Drug Use History: None Reported Plan - Discharge Summary Discharge Rx Participant: No New Discharge Prescriptions: New Metoprolol Succinate (ER) [Toprol XL] 25 mg PO DAILY #30 tab cefUROXime axetiL [Ceftin] 500 mg PO BID #10 tab metroNIDAZOLE [Flagyl] 500 mg PO QID #20 tab Continue Aspirin EC [Ecotrin Low Dose] 81 mg PO DAILY Ergocalciferol (Vitamin D2) [Drisdol (50,000 Iu)] 1,250 mcg PO Q14D allopurinoL [Zyloprim] 200 mg PO DAILY Gabapentin [Neurontin] 100 mg PO HS Torsemide [Demadex] 30 mg PO Q2D Atorvastatin [Lipitor] 40 mg PO DAILY Isosorbide Mononitrate ER [Imdur] 30 mg PO DAILY Pantoprazole [Protonix] 40 mg PO DAILY Insulin Degludec [Tresiba Flextouch U-200 Pen] 50 units SQ HS Escitalopram [Lexapro] 10 mg PO DAILY calcitrioL 0.25 mcg PO MO amLODIPine [Norvasc] 5 mg PO DAILY tab Dapagliflozin Propanediol [Farxiga] 10 mg PO DAILY Insulin Aspart [NovoLOG Flexpen] 30 - 40 units SQ AC-TID Torsemide [Demadex] 40 mg PO Q2D Clopidogrel [Plavix] 75 mg PO DAILY #30 tab Hunfmyhw-Xllkdcvypy-Itri Oint [Triple Antibiotic Ointment] 1 applic TOPICAL DAILY each Discontinued atenoloL [Tenormin] 50 mg PO DAILY Discharge Medication List Aspirin EC [Ecotrin Low Dose] 81 mg PO DAILY 11/08/18 [History] Ergocalciferol (Vitamin D2) [Drisdol (50,000 Iu)] 1,250 mcg PO Q14D 06/25/20 [History] allopurinoL [Zyloprim] 200 mg PO DAILY 10/21/21 [History] Dapagliflozin Propanediol [Farxiga] 10 mg PO DAILY 11/05/21 [History] Gabapentin [Neurontin] 100 mg PO HS 06/30/23 [History] Torsemide [Demadex] 30 mg PO Q2D 06/30/23 [History] Atorvastatin [Lipitor] 40 mg PO DAILY 07/25/23 [History] Insulin Aspart [NovoLOG Flexpen] 30 - 40 units SQ AC-TID 08/16/23 [History] Isosorbide Mononitrate ER [Imdur] 30 mg PO DAILY 08/16/23 [History] Torsemide [Demadex] 40 mg PO Q2D 08/16/23 [History] Clopidogrel [Plavix] 75 mg PO DAILY #30 tab 09/01/23 [Rx] Escitalopram [Lexapro] 10 mg PO DAILY 02/10/24 [History] Insulin Degludec [Tresiba Flextouch U-200 Pen] 50 units SQ HS 02/10/24 [History] Pantoprazole [Protonix] 40 mg PO DAILY 02/10/24 [History] calcitrioL 0.25 mcg PO MO 02/10/24 [History] Vistazwf-Wrmqbmkxkr-Dtoh Oint [Triple Antibiotic Ointment] 1 applic TOPICAL DAILY each 02/13/24 [Rx] amLODIPine [Norvasc] 5 mg PO DAILY tab 02/13/24 [Rx] Metoprolol Succinate (ER) [Toprol XL] 25 mg PO DAILY #30 tab 02/19/24 [Rx] cefUROXime axetiL [Ceftin] 500 mg PO BID #10 tab 02/19/24 [Rx] metroNIDAZOLE [Flagyl] 500 mg PO QID #20 tab 02/19/24 [Rx] Follow up Appointment(s)/Referral(s): Nas Dennis DO [Primary Care Provider] - 1-2 days (office will call with follow up appointment date and time) Yobany Bales MD [STAFF PHYSICIAN] - 2 Weeks (office will call with appointment date and time) Discharge Disposition: HOME SELF-CARE
--- NOTE | 2024-02-20 07:19 | P.PN ---
Subjective Progress Note Date: 02/19/24 HISTORY OF PRESENTING ILLNESS Patient with past medical history CAD status post PCI to LAD and second diag onal, type 2 diabetes, hypertension, dyslipidemia, dilated thoracic aorta, CKD and overweight. He is known to Dr. Vieyra. Patient was recently in the hospital with symptoms of increased weakness, shor tness of breath and abdominal pain. He was being evaluated and was discharged recently. He came back to the hospital because of similar complaints of shortness of breath and lower extremity edema getting mildly worse. He was discharged on torsemide 30 mg daily. Last echo from July 2023 shows preserved LV systolic function, mild MR, Cardiac cath in June 2023 showed severe disease and he received PCI Home medication amlodipine 5, aspirin 81, Plavix, atenolol 50, atorvastatin 40, Farxiga 10, Imdur 30, torsemide 20 alternating with 30. Progress note February 18, 2024 Patient reports feeling much better. He denies any chest pain chest pressure. Telemetry shows sinus rhythm. Patient's kidney function has improved with IV diuretics. He feels less short of breath. Procalcitonin is elevated. 02/18 Patient seen and examined. He currently denies having any chest pain. Troponins have been flat. He is currently on IV Lasix 40 mg every 12 hours. Blood pressure 131/59, heart rate 77, pulse ox 96% on room air. Repeat blood work reveals sodium 141, potassium 4, BUN 19 creatinine 1.49. PHYSICAL EXAMINATION Vital signs reviewed. Head: Normocephalic. Eyes: Sclerae nonicteric. Neck: Brisk carotid upstroke, no jugular venous distention. Lungs: Mild crackles audible in bilateral lung bennett Heart: Regular rate and rhythm, S1-S2, , no murmur or rub. Abdomen: Soft nontender, positive bowel sounds. Extremities: 1-2+ pitting edema in bilateral lower extremity up to mid knee Neuro: Alert, oritented, no focal deficits. Detailed neuro exam was not performed. ASSESSMENT Mild HFpEF exacerbation Flat troponin pattern not indicative of acute coronary syndrome, most likely because of mild CHF exacerbation and poor renal clearance in setting of ROSELYN. CAD status post PCI to LAD and diagonal June 2023 Obesity Hypertension Dyslipidemia ROSELYN [employer] 1.9 on admisison, baseline 1.6 CKD PLAN Continue metoprolol succinate 25 mg daily due to low resting heart rate Resume back torsemide Continue aspirin, Plavix, Lipitor, Farxiga No plan for cardiac workup at this time Cardiology will sign off this case and follow on an as-needed basis. Please reconsult for any new concerns. Patient may follow-up in the office in one to 2 weeks. Nurse practitioner note has been reviewed, I agree with documented findings and plan of care. Patient was seen and examined. Objective - Vital Signs Vital signs: Vital Signs Temp 97.6 F 02/19/24 08:00 Pulse 77 02/19/24 08:00 Resp 20 02/19/24 08:00 BP 131/59 02/19/24 08:00 Pulse Ox 96 02/19/24 08:00 FiO2 Intake & Output 02/18/24 02/19/24 02/19/24 18:59 06:59 18:59 Intake Total 780 340 Output Total 750 Balance 30 340 Weight 115.8 kg Intake: Intake, IV Titration 240 Amount Sodium Chloride 0.9% 1, 140 000 ml @ 20 mls/hr IV . Q24H JOSÉ Rx#:[id number] metroNIDAZOLE-NS PMX 500 100 mg In Saline 1 100ml.bag @ 100 mls/hr IVPB Q8HR JOSÉ Rx#:[id number] Oral 540 340 Output: Urine 750 Other: Voiding Method Toilet Urinal # Voids 1 # Bowel Movements 1 - Labs CBC & Chem 7: 02/18/24 08:52 02/19/24 06:35 Labs: Abnormal Lab Results - Last 24 Hours (Table) 02/18/24 02/18/24 02/18/24 Range/Units 08:59 13:17 16:53 Creatinine (0.66-1.25) mg/dL POC Glucose (mg/dL) 175 H 140 H (70-110) mg/dL Troponin I 0.094 H* (0.000-0.034) ng/mL 02/18/24 02/19/24 Range/Units 21:45 06:35 Creatinine 1.49 H (0.66-1.25) mg/dL POC Glucose (mg/dL) 196 H (70-110) mg/dL Troponin I (0.000-0.034) ng/mL Microbiology - Last 24 Hours (Table) 02/16/24 23:20 Blood Culture - Preliminary Blood
--- NOTE | 2024-02-20 15:37 | P.PN ---
Subjective Progress Note Date: 02/19/24 Principal diagnosis: Reason for follow-up is fever and leukocytosis Patient is a 73-year-old male with a past medical history significant for diabetes mellitus hypertension hyperlipidemia ulcerative colitis in this patient who is status post subtotal colectomy end ileostomy patient was recently admitted to the hospital with lower abdominal pain thought to be related to the rectus sheath hematoma probably not presenting back to the hospital abdominal pain did have elevated white count however CT did not show any acute findings but was done without any contrast. On today's evaluation that is 02/19/2024, Patient is afebrile patient is currently on room air and denies having any shortness of breath, the patient denies any chest pain or cough, the patient denies any nausea vomiting did have improvement in his abdominal pain and did have output in his ileostomy. Patient did have a creatinine 1.49 white count is normalized to 8.4 as of yesterday culture has been pending so far Objective - Vital Signs Vital signs: Vital Signs Temp 97.6 F 02/19/24 08:00 Pulse 77 02/19/24 08:00 Resp 20 02/19/24 08:00 BP 131/59 02/19/24 08:00 Pulse Ox 96 02/19/24 08:00 FiO2 Intake & Output 02/18/24 02/19/24 02/19/24 18:59 06:59 18:59 Intake Total 780 340 Output Total 750 300 Balance 30 40 Weight 115.8 kg Intake: Intake, IV Titration 240 Amount Sodium Chloride 0.9% 1, 140 000 ml @ 20 mls/hr IV . Q24H JOSÉ Rx#:[id number] metroNIDAZOLE-NS PMX 500 100 mg In Saline 1 100ml.bag @ 100 mls/hr IVPB Q8HR JOSÉ Rx#:[id number] Oral 540 340 Output: Urine 750 300 Other: Voiding Method Toilet Urinal # Voids 1 # Bowel Movements 1 - Exam Elderly male lying in bed in no distress No tachypnea or accessory muscle respiration use Unlabored breathing Abdominal soft did have output in his ileostomy no significant tenderness - Labs CBC & Chem 7: 02/18/24 08:52 02/19/24 06:35 Labs: Abnormal Lab Results - Last 24 Hours (Table) 02/18/24 02/18/24 02/18/24 Range/Units 13:17 16:53 21:45 Creatinine (0.66-1.25) mg/dL POC Glucose (mg/dL) 175 H 140 H 196 H (70-110) mg/dL 02/19/24 02/19/24 Range/Units 06:35 11:54 Creatinine 1.49 H (0.66-1.25) mg/dL POC Glucose (mg/dL) 169 H (70-110) mg/dL Microbiology - Last 24 Hours (Table) 02/16/24 23:20 Blood Culture - Preliminary Blood Assessment and Plan (1) Fever Status: Acute Code(s): R50.9 - FEVER, UNSPECIFIED SNOMED Code(s): 253477720 (2) Leukocytosis Status: Acute Code(s): D72.829 - ELEVATED WHITE BLOOD CELL COUNT, UNSPECIFIED SNOMED Code(s): 698541607 Plan: 1patient presented to hospital with fever not feeling well and this patient also have elevated white count he did have a recent admission to the hospital about a week ago with similar symptoms and at that time CT of abdominal pelvis that was done with oral contrast shows evidence of reactive CT fluid collection possible hematoma now presenting back with a similar symptoms however CT has been done without contrast that could limit the sensitivity of this testing. 2I went down to radiology department to review the CT with the radiologist however was not able to find 1 we will try to attempt again tomorrow 3-as the patient fever has resolved white normalized well continue with the Rocephin and Flagyl while waiting for the blood culture to finalize Dictation was produced using [employer] dictation software. please excuse any gr ammatical, word or spelling errors. Time with Patient: Less than 30
== END 2024-02-19 14:29 | disposition home or self-care (01) ==
LOC: EC 19:47 → 6NMEDSUR 22:40 → 3SCARD 02-17 18:37
PROVIDERS: ADMIT Hospitalist; ATTEND Hospitalist
DX: R10.30 Lower abdominal pain, unspecified (principal); R50.9 Fever, unspecified; K80.20 Calculus of gallbladder without cholecystitis without obstruction; K43.5 Parastomal hernia without obstruction or gangrene; I13.0 Hypertensive heart and chronic kidney disease with heart failure and stage 1 through stage 4 chronic kidney disease, or unspecified chronic kidney disease; N18.9 Chronic kidney disease, unspecified; N17.9 Acute kidney failure, unspecified; I25.10 Atherosclerotic heart disease of native coronary artery without angina pectoris; I50.33 Acute on chronic diastolic (congestive) heart failure; E11.22 Type 2 diabetes mellitus with diabetic chronic kidney disease; D63.1 Anemia in chronic kidney disease; D72.829 Elevated white blood cell count, unspecified; E66.9 Obesity, unspecified; E78.5 Hyperlipidemia, unspecified; K21.9 Gastro-esophageal reflux disease without esophagitis; M19.91 Primary osteoarthritis, unspecified site; Z87.19 Personal history of other diseases of the digestive system; Z79.02 Long term (current) use of antithrombotics/antiplatelets; Z79.4 Long term (current) use of insulin; Z79.82 Long term (current) use of aspirin; Z79.84 Long term (current) use of oral hypoglycemic drugs; Z79.899 Other long term (current) drug therapy; Z85.46 Personal history of malignant neoplasm of prostate; Z92.21 Personal history of antineoplastic chemotherapy; Z92.3 Personal history of irradiation; Z86.16 Personal history of COVID-19; Z93.3 Colostomy status; Z95.5 Presence of coronary angioplasty implant and graft
CPT/HCPCS: 96376 ×4; 96366 ×3; 96372 ×3; 96361; 96365; 96367 ×2; 96375; 99285; 36415; 94640; 94760 ×2; 93005 ×2; 83880; 80061; 80053 ×3; 80048; 83605 ×2; 83735 ×2; 84100 ×2; 84484 ×2; 85025 ×3; 81001; 87040; 84145; 87636; 71045; 74019; 74176; G0378 ×5; C8929; J1940 ×3; J0696 ×3; J1650 ×3; Q9957; J3475 ×2; J1836 ×2; 93306

== ENCOUNTER → 2024-04-17 | Outpatient (CLI) | payer MEDICARE ==
--- NOTE | 2024-04-17 14:34 | US ---
EXAMINATION TYPE: US arterial LE single level DATE OF EXAM: 04/17/2024 2:14 PM COMPARISONS: None. CLINICAL INDICATION: Male, 73 years old with history of I70.203 UNSPEC ATHEROSCLEROSIS OF [place]; Wound bottom of right foot. TECHNIQUE: Systolic pressures were taken of the upper and lower extremity arteries with ankle-brachia l indices and toe brachial indices calculated bilaterally. History of: Smoker: No Hypertension: Yes Diabetic: Yes Hyperlipidemia: No TIA/CVA: No Previous Vascular Surgery: Yes CAD: No W[place]: No Vascular Ulcers: Yes Claudication: No Gangrene: No FINDINGS: Doppler Waveforms: Right: Left: Pulse Volume Recording: Pressure Gradients: Brachial Artery systolic pressure: Right: CNO Left: CNO Posterior Tibial artery systolic pressure: Right: CNO Left: CNO Dorsalis Pedis artery systolic pressure: Right: CNO Left: CNO Toe artery systolic pressure: Right: 88 Left: 79 Ankle-Brachial Indices: Right: Non occluding Left: Non occluding (Vessel hardening > 1.4; Normal 0.9 - 1.4, Moderate 0.7 - 0.9, Severe 0.5-0.7) Toe Brachial Indices: Right: 0.54 Left: 0.48 (Normal > 0.6; Mild 0.35 - 0.59, Moderate 0.12 - 0.34, Severe <0.12) IMPRESSION: Toe brachial indices suggestive of mild peripheral vascular disease [facility], , 04/17/2024 2:31 PM
== END | disposition home or self-care (01) ==
LOC: RADUSWWP 13:39
PROVIDERS: ATTEND Podiatrist
DX: I70.203 Unspecified atherosclerosis of native arteries of extremities, bilateral legs (principal)
CPT/HCPCS: 93922

== ENCOUNTER 2024-04-25 17:52 | Inpatient (IN) | payer MEDICARE ==
[2024-04-25 18:44] LABS: Anisocytosis Slight; Basophils # (A) 0.1 k/uL (0-0.2); Basophils % (A) 0 %; Eosinophils # (A) 0.4 k/uL (0-0.7); Eosinophils % (A) 2 %; HCT 43.1 % (39.0-53.0); HGB 13.7 gm/dL (13.0-17.5); Hypochromasia Slight; Lymphocytes # (A) 0.4 k/uL (1.0-4.8); Lymphocytes % (A) 2 %; MCH 30.2 pg (25.0-35.0); MCHC 31.7 g/dL (31.0-37.0); MCV 95.6 fL (80.0-100.0); Mean Platelet Volume 7.5; Monocytes # (A) 0.7 k/uL (0-1.0); Monocytes % (A) 4 %; Neutrophils # (A) 16.2 k/uL (1.3-7.7); Neutrophils % (A) 91 %; Platelet Count 245 k/uL (150-450); RBC 4.51 m/uL (4.30-5.90); RDW 17.1 % (11.5-15.5); WBC 17.8 k/uL (3.8-10.6)
[2024-04-25 18:58] LABS: ALT 24 U/L (4-49); AST 24 U/L (17-59); African American GFR (CKD) 45 (>60 ml/min/1.73 sqM); Albumin 4.2 g/dL (3.5-5.0); Alkaline Phosphatase 138 U/L (38-126); Anion Gap 11 mmol/L; Blood Urea Nitrogen 36 mg/dL (9-20); Calcium 9.4 mg/dL (8.4-10.2); Carbon Dioxide 25 mmol/L (22-30); Chloride 103 mmol/L (98-107); Glucose 187 mg/dL (74-99); Magnesium 1.8 mg/dL (1.6-2.3); Non-African American GFR(CKD) 39 (>60 ml/min/1.73 sqM); Potassium 4.2 mmol/L (3.5-5.1); Sodium 139 mmol/L (137-145); Total Bilirubin 0.3 mg/dL (0.2-1.3); Total Protein 7.3 g/dL (6.3-8.2)
[2024-04-25 19:07] LABS: NT-Pro-B-Type Natriuretic Pept 418 pg/mL
[2024-04-25] MEDS: MORPHINE SULFATE 4 MG/ML SYRINGE IVP STA (19:40)
[2024-04-25 21:08] LABS: INR 0.9 (<1.2); Partial Thromboplastin Time 21.8 sec (22.0-30.0); Prothrombin Time 10.1 sec (10.0-12.5)
--- NOTE | 2024-04-25 21:41 | XR ---
EXAMINATION TYPE: XR chest 2V DATE OF EXAM: 04/25/2024 9:34 PM CLINICAL INDICATION:Male, 73 years old with history of Chest Pain; [facility] COMPARISON: Chest radiograph 02/09/2024 TECHNIQUE: XR chest 2V Frontal and lateral views of the chest. FINDINGS: Lungs/Pleura: Bibasilar atelectasis. No evidence for pneumothorax, pleural effusion or focal consolid ation. Pulmonary vascularity: Unremarkable. Heart/mediastinum: Cardiomediastinal silhouette is unremarkable. Musculoskeletal: No acute osseous pathology. IMPRESSION: No acute cardiopulmonary disease/process. [facility], , 04/25/2024 9:39 PM
[2024-04-25] MEDS ORDERED: NALOXONE 0.4 MG/ML 1 ML VIAL IV PRN (21:44)
--- NOTE | 2024-04-25 21:44 | ED ---
Chest Pain HPI - General Chief Complaint: Chest Pain Stated Complaint: Chest pain Time Seen by Provider: 04/25/24 17:54 Source: patient, EMS Mode of arrival: EMS Limitations: no limitations - History of Present Illness Initial Comments: 73-year-old male with past medical history of coronary artery disease, CHF who presents emergency department with shortness of breath and chest pain. States that the symptoms started last night and gotten progressively worse this morning. He reports to a substernal chest pressure with radiation through to his back. Pain is 8 out of 10. EMS did administer a sublingual nitro and 324 mg of aspirin. Patient does admit that his pain slightly improved with this medication. He also has nausea without vomiting. He does have a history of coronary disease. He received 2 stents in January. Patient currently takes Plavix. He denies any missed doses. Denies history of DVT or PE. No cough or chills he denies any fevers. No leg swelling but does admit to a history of congestive heart failure. No other alleviating, precipitating or modifying factors - Related Data Home Medications Medication Instructions Recorded Confirmed Aspirin EC [Ecotrin Low Dose] 81 mg PO DAILY 11/08/18 04/25/24 Ergocalciferol (Vitamin D2) 1,250 mcg PO Q14D 06/25/20 04/25/24 [Drisdol (50,000 Iu)] allopurinoL [Zyloprim] 200 mg PO DAILY 10/21/21 04/25/24 Dapagliflozin Propanediol [Farxiga] 10 mg PO DAILY 11/05/21 04/25/24 Gabapentin [Neurontin] 100 mg PO HS 06/30/23 04/25/24 Torsemide [Demadex] 30 mg PO Q2D 06/30/23 04/25/24 Atorvastatin [Lipitor] 40 mg PO DAILY 07/25/23 04/25/24 Insulin Aspart [NovoLOG Flexpen] 30 - 40 units SQ AC-TID 08/16/23 04/25/24 Isosorbide Mononitrate ER [Imdur] 30 mg PO DAILY 08/16/23 04/25/24 Torsemide [Demadex] 40 mg PO Q2D 08/16/23 04/25/24 Escitalopram [Lexapro] 10 mg PO DAILY 02/10/24 04/25/24 Pantoprazole [Protonix] 40 mg PO DAILY 02/10/24 04/25/24 calcitrioL 0.25 mcg PO MO 02/10/24 04/25/24 Butalb/APAP/Caff 50-325-40Mg 1 tab PO Q4H PRN 04/25/24 04/25/24 [Fioricet 50-325-40] Ferrous Sulfate [Feosol] 325 mg PO DAILY 04/25/24 04/25/24 Insulin Glargine,Hum.rec.anlog 50 units SQ HS 04/25/24 04/25/24 [Toujeo Solostar] Triamcinolone 0.5% Cream [Kenalog 1 applic TOPICAL BID PRN 04/25/24 04/25/24 0.5% Cream] Previous Rx's Medication Instructions Recorded Clopidogrel [Plavix] 75 mg PO DAILY #30 tab 09/01/23 amLODIPine [Norvasc] 5 mg PO DAILY tab 02/13/24 Metoprolol Succinate (ER) [Toprol 25 mg PO DAILY #30 tab 02/19/24 XL] Allergies Allergy/AdvReac Type Severity Reaction Status Date / Time ibuprofen [From Motrin] Allergy Anaphylaxis Verified 04/25/24 19:54 Review of Systems ROS Statement: Those systems with pertinent positive or pertinent negative responses have been documented in the HPI. ROS Other: All systems not noted in ROS Statement are negative. Past Medical History Past Medical History: Cancer, Chest Pain / Angina, Diabetes Mellitus, Eye Disorder, GERD/Reflux, Hyperlipidemia, Hypertension, Osteoarthritis (OA), Prostate Disorder, Renal Disease Additional Past Medical History / Comment(s): HX OF ULCERATIVE COLITIS, ileostomy PARASTOMAL HERNIA, PROSTATE CA WITH RADIATION AND CHEMO IN 2020, LOW KIDNEY FUNCTION,Covid Dec 2022, Influenza A Jun 2023, eye condition, unsure of name. History of Any Multi-Drug Resistant Organisms: MRSA Date of last positivie culture/infection: 11/07/14 MDRO Source:: Scalp Past Surgical History: Appendectomy, Bowel Resection, Heart Catheterization, Heart Catheterization With Stent Additional Past Surgical History / Comment(s): COLECTOMY, RECTUM REMOVED, ELLIOTT CATARACTS removed, ILEOSTOMY, HERNIA SURGERY. Past Anesthesia/Blood Transfusion Reactions: No Reported Reaction Additional Past Anesthesia/Blood Transfusion Reaction / Comment(s): no problems with prior blood transfusions. Date of Last Stent Placement:: 08/01/2023 Past Psychological History: No Psychological Hx Reported Smoking Status: Never smoker Past Alcohol Use History: None Reported Past Drug Use History: None Reported - Past Family History Mother Family Medical History: Cancer Additional Family Medical History / Comment(s): LUNG CANCER. Father Family Medical History: Cancer Additional Family Medical History / Comment(s): MELANOMA/BRAIN CANCER. General Exam Limitations: no limitations General appearance: alert, in no apparent distress Head exam: Present: atraumatic, normocephalic, normal inspection Eye exam: Present: normal appearance, PERRL, EOMI. Absent: scleral icterus, conjunctival injection, periorbital swelling ENT exam: Present: normal exam, mucous membranes moist Neck exam: Present: normal inspection. Absent: tenderness, meningismus, lymphadenopathy Respiratory exam: Present: normal lung sounds bilaterally. Absent: respiratory distress, wheezes, rales, rhonchi, stridor Cardiovascular Exam: Present: regular rate, normal rhythm, normal heart sounds. Absent: systolic murmur, diastolic murmur, rubs, gallop, clicks GI/Abdominal exam: Present: soft, normal bowel sounds. Absent: distended, tenderness, guarding, rebound, rigid Extremities exam: Present: normal inspection, full ROM, normal capillary refill. Absent: tenderness, pedal edema, joint swelling, calf tenderness Back exam: Present: normal inspection Neurological exam: Present: alert, oriented X3, CN II-XII intact Psychiatric exam: Present: normal affect, normal mood Skin exam: Present: warm, dry, intact, normal color. Absent: rash Course Vital Signs 04/25/24 04/25/24 04/25/24 17:57 19:49 21:00 Temperature 97.7 F Pulse Rate 72 96 84 Respiratory 18 20 18 Rate Blood Pressure 150/68 122/60 120/50 O2 Sat by Pulse 98 90 L 98 Oximetry 04/25/24 22:00 Temperature Pulse Rate 84 Respiratory 20 Rate Blood Pressure 120/50 O2 Sat by Pulse 97 Oximetry Chest Pain MDM - MDM Was pt. sent in by a medical professional or institution (, PA, GAS ENGINE MECHANIC, urgent care, hospital, or shelter...) When possible be specific @ -No Did you speak to anyone other than the patient for history (EMS, parent, family, police, friend...)? What history was obtained from this source @ -Spoke with this for history Did you review nursing and triage notes (agree or disagree)? Why? @ -I reviewed and agree with nursing and triage notes Were old charts reviewed (outside hosp., previous admission, EMS record, old EKG, old radiological studies, urgent care reports/EKG's, shelter records)? Report findings @ -I reviewed patient's discharge summary from January 2024 Differential Diagnosis (chest pain, altered mental status, abdominal pain women, abdominal pain men, vaginal bleeding, weakness, fever, dyspnea, syncope, headache, dizziness, GI bleed, back pain, seizure, CVA, palpatations, mental health, musculoskeletal)? @ -Differential Chest Pain: Stable Angina, Unstable Angina, STEMI, NSTEMI Aortic Dissection, Pneumothorax, Musculoskeletal, Esophageal Spasm GERD, Cholecystitis, Pancreatitis, Zoster, this is not meant to be an all-inclusive list. EKG interpreted by me (3pts min.). @ -Yes and demonstrates sinus rhythm with a rate of 96. OH interval 191. QRS 85. QTc of 374. No acute ST segment elevations. Mild ST depression in 1 and aVL X-rays interpreted by me (1pt min.). @ -Yes which demonstrates no acute process CT interpreted by me (1pt min.). @ -None done U/S interpreted by me (1pt. min.). @ -None done What testing was considered but not performed or refused? (CT, X-rays, U/S, labs)? Why? @ -None What meds were considered but not given or refused? Why? @ -None Did you discuss the management of the patient with other professionals (professionals i.e. , PA, GAS ENGINE MECHANIC, lab, RT, psych nurse, social worker aide, immigration lawyer, teacher, chief juvenile probation officer, field case manager)? Give summary @ -Spoke with Willa from [facility] for admission Was smoking cessation discussed for >3mins.? @ -No Was critical care preformed (if so, how long)? @ -No Were there social determinants of health that impacted care today? How? (Ramiro elessness, low income, unemployed, alcoholism, drug addiction, transportation, low edu. Level, literacy, decrease access to med. care, long-term, rehab)? @ -No Was there de-escalation of care discussed even if they declined (Discuss DNR or withdrawal of care, Hospice)? DNR status @ -No What co-morbidities impacted this encounter? (DM, HTN, Smoking, COPD, CAD, Cancer, CVA, ARF, Chemo, Hep., AIDS, mental health diagnosis, sleep apnea, morbid obesity)? @ -Coronary vascular disease Was patient admitted / discharged? Hospital course, mention meds given and route, prescriptions, significant lab abnormalities, going to OR and other pertinent info. @ -Upon arrival patient seen and evaluated in bed 19. Thorough history and physical exam was performed. IV access was established. Laboratory studies are conducted. Chest x-ray was performed. Patient does have mild leukocytosis. I did order pain medications. Due to his history did recommend admission for which the patient was agreeable. Spoke with Willa from [facility] for the admission Undiagnosed new problem with uncertain prognosis? @ -No Drug Therapy requiring intensive monitoring for toxicity (Heparin, Nitro, Insulin, Cardizem)? @ -No Were any procedures done? @ -No Diagnosis/symptom? @ -Acute chest pain, possible ACS, history of ascad Acute, or Chronic, or Acute on Chronic? @ -Acute Uncomplicated (without systemic symptoms) or Complicated (systemic symptoms)? @ -Complicated Side effects of treatment? @ -No Exacerbation, Progression, or Severe Exacerbation? @ -No Poses a threat to life or bodily function? How? (Chest pain, [place], [place], pneumonia, PE, COPD, DKA, ARF, appy, cholecystitis, CVA, Diverticulitis, Homicidal, Suicidal, threat to staff... and all critical care pts) @ -Yes as patient may have possible ACS Disposition Clinical Impression: Chest pain, Leukocytosis Disposition: ADMITTED IP TO THIS [facility] Condition: Stable Is patient prescribed a controlled substance at d/c from ED?: No Time of Disposition: 21:44 Decision to Admit Reason: Admit from EC Decision Date: 04/25/24 Decision Time: 21:44
[2024-04-25] MEDS: TORSEMIDE 20 MG TAB PO SCH (22:51)
[2024-04-25] MEDS: GABAPENTIN 100 MG CAP PO SCH (22:51)
[2024-04-25] MEDS: INSULIN DETEMIR (LEVEMIR) 100 UNIT/ML SYR SQ SCH (22:52)
[2024-04-26 03:35] LABS: Anisocytosis Slight; Basophils % (A) 0 %; Eosinophils # (A) 0.1 k/uL (0-0.7); Eosinophils % (A) 1 %; HCT 38.5 % (39.0-53.0); HGB 11.9 gm/dL (13.0-17.5); Hypochromasia Moderate; Lymphocytes # (A) 0.6 k/uL (1.0-4.8); Lymphocytes % (A) 3 %; MCV 96.7 fL (80.0-100.0); Mean Platelet Volume 7.5; Monocytes # (A) 0.7 k/uL (0-1.0); Monocytes % (A) 4 %; Neutrophils % (A) 91 %; Platelet Count 219 k/uL (150-450); RBC 3.98 m/uL (4.30-5.90); RDW 16.9 % (11.5-15.5); WBC 17.6 k/uL (3.8-10.6)
[2024-04-26 03:51] LABS: African American GFR (CKD) 41 (>60 ml/min/1.73 sqM); Anion Gap 8 mmol/L; Blood Urea Nitrogen 38 mg/dL (9-20); Calcium 8.8 mg/dL (8.4-10.2); Carbon Dioxide 22 mmol/L (22-30); Chloride 106 mmol/L (98-107); Glucose 198 mg/dL (74-99); Non-African American GFR(CKD) 35 (>60 ml/min/1.73 sqM); Potassium 4.4 mmol/L (3.5-5.1); Sodium 136 mmol/L (137-145)
[2024-04-26] MEDS ORDERED: HEPARIN SODIUM 1,000 UN/ML (10ML VL) IV PRN (04:27)
[2024-04-26] MEDS: HEPARIN SODIUM 1,000 UN/ML (10ML VL) IV ONE (04:56)
[2024-04-26] MEDS: HEPARIN SOD,PORK IN 0.45% NACL 25,000 UNIT in 0.45% NACL 1 250ML.BAG IV SCH (04:58)
[2024-04-26 07:45] LABS: Glucose,Whole Blood 166 mg/dL (70-110)
[2024-04-26] MEDS ORDERED: ALPRAZolam 0.5 MG TAB PO PRN (09:10)
[2024-04-26] MEDS ORDERED: ALPRAZolam 0.25 MG TAB PO PRN (09:10)
[2024-04-26] MEDS ORDERED: NITROGLYCERIN SL TABS 0.4 MG TAB SUBLINGUAL PRN ×2 (09:10→19:33)
[2024-04-26] MEDS: INSULIN ASPART (NovoLOG) 100 UNIT/ML VIAL SQ SCH ×2 (09:16→20:29)
[2024-04-26] MEDS: ASPIRIN 81 MG PO SCH (09:18)
[2024-04-26] MEDS: ATORVASTATIN 40 MG TAB PO SCH (09:18)
[2024-04-26] MEDS: DAPAGLIFLOZIN PROPANEDIOL 10 MG TABLET PO SCH (09:56)
[2024-04-26] MEDS: amLODIPine 5 MG TAB PO SCH (09:56)
[2024-04-26] MEDS: allopurinoL 100 MG TAB PO SCH (09:56)
[2024-04-26] MEDS: METOPROLOL SUCCINATE (ER) 25 MG TAB.ER.24H PO SCH (09:56)
[2024-04-26] MEDS: PANTOPRAZOLE 40 MG TABLET PO SCH (09:56)
[2024-04-26] MEDS: ATORVASTATIN 80 MG TAB PO STA (09:56)
[2024-04-26] MEDS: FERROUS SULFATE 325 MG TAB PO SCH (09:56)
[2024-04-26] MEDS: CLOPIDOGREL 75 MG TAB PO SCH (09:56)
[2024-04-26] MEDS: ASPIRIN 325 MG TAB PO STA (09:56)
[2024-04-26] MEDS: ESCITALOPRAM 10 MG TAB PO SCH (09:56)
[2024-04-26] MEDS: ISOSORBIDE MONONITRATE ER 30 MG TAB.ER.24H PO SCH (09:56)
[2024-04-26] MEDS: SODIUM CHLORIDE 0.9% 1,000 ML IV SCH (09:57)
[2024-04-26 12:12] LABS: Glucose,Whole Blood 130 mg/dL (70-110)
[2024-04-26] MEDS: TORSEMIDE 20 MG TAB PO SCH (14:48)
[2024-04-26] MEDS: IV FLUID CONTINUATION 600 ML IV ONE (17:22)
[2024-04-26] MEDS: MIDAZOLAM 2 MG/2 ML VIAL IVP ONE (17:25)
[2024-04-26] MEDS: fentaNYL (PF) 50 MCG/ML 2 ML AMP IVP ONE (17:28)
[2024-04-26] MEDS: LIDOCAINE 1% INJ 10MG/ML (20 ML MDV) SQ ONE (17:30)
[2024-04-26] MEDS: VERAPAMIL SYRINGE (5 MG/10 ML) INTRAARTER ONE (17:31)
[2024-04-26] MEDS: HEPARIN SODIUM,PORCINE (1 ML) 2,500 UNIT in SODIUM CHLORIDE 0.9% 250 ML IRRIGATION PRN (17:35)
[2024-04-26] MEDS: HEPARIN SODIUM,PORCINE 10,000 UNIT in SODIUM CHLORIDE 0.9% 1,000 ML IRRIGATION PRN (17:35)
[2024-04-26] MEDS: TICAGRELOR 90 MG TAB PO ONE (17:38)
[2024-04-26] MEDS ORDERED: DEXTROSE 50% SYRINGE 50 ML IVP PRN ×2 (18:40)
[2024-04-26] MEDS: SODIUM CHLORIDE 0.9% 1,000 ML IV ONE (19:05)
[2024-04-26] MEDS: NITROGLYCERIN 1000MCG/10ML SYRINGE INTRACORON ONE (19:23)
[2024-04-26] MEDS: IOPAMIDOL-370 100ML BTL INJ ONE (19:25)
[2024-04-26] MEDS: niCARdipine Syringe (1,000 mcg/10 mL) INTRACORON ONE (19:25)
[2024-04-26] MEDS ORDERED: ATROPINE SULFATE 0.1 MG/ML 10ML SYRINGE IV PRN (19:33)
[2024-04-26] MEDS ORDERED: RX INFO: IV CONTRAST WAS GIVEN 1 EACH MISC MISCELLANE PRN (19:33)
[2024-04-26] MEDS ORDERED: ZOLPIDEM 5 MG TAB PO PRN (19:33)
[2024-04-26] MEDS ORDERED: MAG HYDROX/AL HYDROX/SIMETH 30 ML CUP PO PRN (19:33)
[2024-04-26 19:59] LABS: Appearance,Urine Clear (Clear); Bilirubin,Urine Negative (Negative); Blood,Urine Negative (Negative); Color,Urine Colorless; Glucose,Urine (UA) 4+ (Negative); Ketones,Urine Negative (Negative); Leukocyte Esterase,Urine Negative (Negative); Nitrite,Urine Negative (Negative); Protein,Urine Trace (Negative); Specific Gravity,Urine 1.011 (1.001-1.035); Urobilinogen,Urine <2.0 mg/dL (<2.0)
[2024-04-26] MEDS: SODIUM CHLORIDE 0.9% 1,000 ML in EMPTY BAG 1 BAG IV SCH (20:28)
[2024-04-26] MEDS: RANOLAZINE 500 MG TAB.ER.12H PO SCH (20:28)
[2024-04-26 20:29] LABS: Glucose,Whole Blood 111 mg/dL (70-110)
[2024-04-26] MEDS: TICAGRELOR 90 MG TAB PO SCH (20:29)
--- NOTE | 2024-04-26 21:31 | CONS ---
CONSULTATION HISTORY OF PRESENT ILLNESS: Mike is a 73-year-old gentleman with history of coronary artery disease, hypertension, diabetes, dyslipidemia, who presented to hospital with symptoms of precordial chest pain. He describes it as a chest pressure that radiates to his back. He also has elevated white cell count of unclear etiology. His troponins have been elevated at 0.5 and 1.2. EKG shows sinus rhythm with moderate ST-T wave changes. Given his non ST-segment elevation NH, I am advising the patient to undergo cardiac catheterization. Etiology for his elevated white cell count is unclear. I asked the nurse to have the primary care physician to investigate this further. PAST MEDICAL HISTORY: Significant for coronary artery disease, hypertension, diabetes, dyslipidemia. CURRENT MEDICATIONS: Include: 1. Lipitor. 2. Insulin. 3. Lexapro. 4. Norvasc. 5. Demadex. 6. Protonix. 7. Toprol. 8. Farxiga. 9. Aspirin. 10.Plavix. 11.Neurontin. ALLERGIES: To Motrin. FAMILY HISTORY: Negative for premature coronary artery disease. SOCIAL HISTORY: Negative for smoking, EtOH abuse, or drug abuse. PHYSICAL EXAMINATION: VITAL SIGNS: O2 saturation is 99% on room air. Vital signs are stable. GENERAL: Comfortable at rest. CHEST: Reveals good air entry bilaterally. HEART: Reveals first and second heart sounds. No gallop. No murmur. ABDOMEN: Soft, nontender. EXTREMITIES: Did not reveal any edema. Peripheral pulses are palpable. ASSESSMENT: 1. Acute non ST-segment elevation myocardial infarction. 2. Chronic renal insufficiency. 3. Elevated white cell count. PLAN: The patient will undergo cardiac catheterization, has normal LV function. I will hydrate him prior to catheterization. The patient understands the risk of contrast- induced nephropathy. MMODL / IJN: [id number] /
--- NOTE | 2024-04-26 21:34 | P.PCN ---
Date of Procedure: 04/26/24 Operative Findings: Cardiac catheterization and percutaneos coronary intervention Performing physician Yobany Bales MD Procedure performed Selective right and left coronary angiogram and left heart catheterization Attempted balloon angioplasty on the second diagonal branch IVUS of the LAD Ultrasound-guided access of the right radial artery Indication Acute non-ST elevation myocardial infarction this 73-year-old gentleman who was admitted to the hospital with chest discomfort and ruled in for acute coronary event. He is known to have CAD with prior stenting of the LAD and second diagonal branch Approach Right radial artery Complication None Level of sedation Moderate with sedation length of 2 and half hours Procedure description After obtaining an informed consent the patient was brought to the cardiac [employer] Pants Outseamer. The right radial artery was cannulated using a collection technique under ultrasound guidance the micropuncture wire passed easily then I placed a 6 Burmese 11 cm sheath at the right radial artery. Anticoagulation was initiated using heparin with continuous ACT monitoring and also the patient was given 2 mg of verapamil intra-arterial and initially 5000 units of heparin intravenous with continuous ACT monitoring and additional heparin was given throughout the procedure. Selective right and left coronary angiogram performed using JR4 and JL 3.5 catheters. Left heart catheterization was performed using 60 Burmese pigtail catheter. After that we decided to intervene on the diagonal branch which was the second diagonal branch of the LAD. Anticoagulation continued using heparin with continuous ACT monitoring. I did engage the left main using JL 3.5 guiding catheter. I did wire the LAD using a running through wire. The wire was positioned in the distal LAD/apical LAD. After that I wired the second diagonal branch using a whisper wire. Attempting advancing 2.0 x 12 mm NC balloon was unsuccessful. At that point I decided to change it to 1.5 mm balloon. Attempting advancing 1.5 mm semicompliant balloon was also unsuccessful. I was able to advance 1 mm balloon. Balloon angioplasty was performed on the second diagonal branch using 1 mm balloon but the balloon ruptured. Attempting advancing 1.5 mm was unsuccessful again. I was able to advance another 1 mm balloon and do balloon angioplasty of the second diagonal branch with extreme difficulties after I did use a lizzy wire and diagonal branch and kept the wire in the left anterior descending artery. After multiple attempts advancing 1.2 mm [id number] balloon was also unsuccessful. After that we reached the maximal amount of contrast which is about 100 cc of contrast and which allowed 2 [place] of radiation as well. With that being said we decided to stop. An angiogram was performed and showed that the diagonal branch was shut down completely but the LAD was having NORIS-3 flow and no dissection was identified or any disease was identified confirmed by using intravascular ultrasound IVUS where the catheter was going easily to the LAD and the IVUS which showed that the stent was widely patent and no evidence of any edge dissection noted with NORIS-3 flow. At that point the procedure was completed. The patient tolerated the procedure very well. The patient did not have any symptoms of chest pain or chest discomfort by the end of the procedure Selective coronary angiogram The RCA is a medium caliber vessel nondominant vessel appears to be angiographically normal The left main appears to have mild disease only The LCx large-caliber vessel and the dominant vessel gives rise into an OM1 which has a severe lesion in the artery about 2 mm in diameter and that RCA appeared to be the same as before The LAD the LAD stent in the proximal to midportion appeared to be patent with diagonal branch which was the second diagonal branch has critical lesion appeared to be in the range of 99.9% likely secondary to stent thrombosis Hemodynamic the LVEDP was about 8 to 10 mmHg with no significant gradient was identified across the aortic valve Conclusion Patent stent in the mid LAD Late stent thrombosis of the second diagonal branch of the LAD Severe disease involving OM1 appeared unchanged compared to before Attempted balloon angioplasty was performed in the second diagonal branch with suboptimal results Normal left-sided filling pressure Postprocedure management DC Plavix and start the patient on Brilinta Increase the dose of isosorbide mononitrate Add Ranexa to the current medical regimen Follow-up with the patient
[2024-04-26] MEDS: MORPHINE SULFATE 4 MG/ML SYRINGE IV PRN (22:22)
--- NOTE | 2024-04-26 23:13 | P.CONS ---
History of Present Illness - Reason for Consult Consult date: 04/26/24 Diabetic foot ulcer Requesting physician: Maury Gabriel - Chief Complaint Chest pain x 1 day - History of Present Illness Patient is a 73-year-old male with a past medical history significant for diabetes mellitus hypertension hyperlipidemia reflux osteoarthritis patient also has developed a wound to the right heel area which is currently being treated at [facility] wound care center by Dr. Jernigan with local wound care with Aquacel silver dressing patient now presenting to the hospital for evaluation of increasing shortness of breath and chest pain symptoms started the day of presentation to the hospital describing the pain to be substernal some radiation to the back almost 8 out of 10 patient has significant cough or sputum production denies having any nausea no vomiting no abdominal pain no diarrhea patient did have slightly more swelling and some redness of the right lower extremity however intermittently has significant pain to the right leg or any f oul-smelling drainage on presentation to the hospital patient was afebrile no fever have been recorded subsequently patient was not tachycardic hypotensive or hypoxic he did have a white count of 17.8 with a left shift BUN/creatinine has been mildly elevated liver enzymes are normal UA has been negative local culture obtained which are currently pending chest x-ray did not show any acute abnormality he was started on ceftriaxone infectious disease was consulted for further management of antibiotic therapy Review of Systems Positive point and negatives has been mentioned in the HPI, complete review of systems was performed and all other systems are negative Past Medical History Past Medical History: Cancer, Chest Pain / Angina, Diabetes Mellitus, Eye Disorder, GERD/Reflux, Hyperlipidemia, Hypertension, Osteoarthritis (OA), Prostate Disorder, Renal Disease Additional Past Medical History / Comment(s): HX OF ULCERATIVE COLITIS, ileostomy PARASTOMAL HERNIA, PROSTATE CA WITH RADIATION AND CHEMO IN 2020, LOW KIDNEY FUNCTION,Covid Dec 2022, Influenza A Jun 2023, eye condition, unsure of name. History of Any Multi-Drug Resistant Organisms: MRSA Year Discovered:: 11/07/14 MDRO Source:: Scalp Past Surgical History: Appendectomy, Bowel Resection, Heart Catheterization, Heart Catheterization With Stent Additional Past Surgical History / Comment(s): COLECTOMY, RECTUM REMOVED, ELLIOTT CATARACTS removed, ILEOSTOMY, HERNIA SURGERY. Past Anesthesia/Blood Transfusion Reactions: No Reported Reaction Additional Past Anesthesia/Blood Transfusion Reaction / Comm: no problems with prior blood transfusions. Date of Last Stent Placement:: 08/01/2023 Past Psychological History: No Psychological Hx Reported Smoking Status: Never smoker Past Alcohol Use History: None Reported Past Drug Use History: None Reported - Past Family History Mother Family Medical History: Cancer Additional Family Medical History / Comment(s): LUNG CANCER. Father Family Medical History: Cancer Additional Family Medical History / Comment(s): MELANOMA/BRAIN CANCER. Medications and Allergies Home Medications Medication Instructions Recorded Confirmed Type Aspirin EC [Ecotrin Low Dose] 81 mg PO DAILY 11/08/18 04/25/24 History Ergocalciferol (Vitamin D2) 1,250 mcg PO Q14D 06/25/20 04/25/24 History [Drisdol (50,000 Iu)] allopurinoL [Zyloprim] 200 mg PO DAILY 10/21/21 04/25/24 History Dapagliflozin Propanediol [Farxiga] 10 mg PO DAILY 11/05/21 04/25/24 History Gabapentin [Neurontin] 100 mg PO HS 06/30/23 04/25/24 History Torsemide [Demadex] 30 mg PO Q2D 06/30/23 04/25/24 History Atorvastatin [Lipitor] 40 mg PO DAILY 07/25/23 04/25/24 History Insulin Aspart [NovoLOG Flexpen] 30 - 40 units SQ AC-TID 08/16/23 04/25/24 History Isosorbide Mononitrate ER [Imdur] 30 mg PO DAILY 08/16/23 04/25/24 History Torsemide [Demadex] 40 mg PO Q2D 08/16/23 04/25/24 History Clopidogrel [Plavix] 75 mg PO DAILY #30 tab 09/01/23 04/25/24 Rx Escitalopram [Lexapro] 10 mg PO DAILY 02/10/24 04/25/24 History Pantoprazole [Protonix] 40 mg PO DAILY 02/10/24 04/25/24 History calcitrioL 0.25 mcg PO MO 02/10/24 04/25/24 History amLODIPine [Norvasc] 5 mg PO DAILY tab 02/13/24 04/25/24 Rx Metoprolol Succinate (ER) [Toprol 25 mg PO DAILY #30 tab 02/19/24 04/25/24 Rx XL] Butalb/APAP/Caff 50-325-40Mg 1 tab PO Q4H PRN 04/25/24 04/25/24 History [Fioricet 50-325-40] Ferrous Sulfate [Feosol] 325 mg PO DAILY 04/25/24 04/25/24 History Insulin Glargine,Hum.rec.anlog 50 units SQ HS 04/25/24 04/25/24 History [Touramesh Solostar] Triamcinolone 0.5% Cream [Kenalog 1 applic TOPICAL BID PRN 04/25/24 04/25/24 Hi story 0.5% Cream] Allergies Allergy/AdvReac Type Severity Reaction Status Date / Time ibuprofen [From Motrin] Allergy Anaphylaxis Verified 04/25/24 19:54 Physical Exam Vitals: Vital Signs Temp Pulse Pulse Resp BP BP Pulse Ox 04/26/24 14:52 97.7 F 62 17 138/68 100 04/26/24 07:00 98.4 F 66 17 150/73 99 04/26/24 00:26 97.7 F 79 17 132/61 98 04/26/24 00:00 96 20 138/67 97 04/25/24 22:00 84 20 120/50 97 04/25/24 21:00 84 18 120/50 98 04/25/24 19:49 96 20 122/60 90 L 04/25/24 17:57 97.7 F 72 18 150/68 98 Intake and Output 04/26/24 04/26/24 04/26/24 06:59 14:59 22:59 Other: # Voids 1 Weight 113.398 kg GENERAL DESCRIPTION: Elderly male lying in bed, no distress. No tachypnea or accessory muscle of respiration use. HEENT: Shows Pallor , no scleral icterus. Oral mucous membrane is dry. No pharyngeal erythema or thrush NECK: Trachea central, no thyromegaly. LUNGS: Unlabored breathing. Clear to auscultation anteriorly. No wheeze or crackle. HEART: S1, S2, regular rate and rhythm. No loud murmur ABDOMEN: Soft, no tenderness , guarding or rigidity, no organomegaly EXTREMITIES: Right heel wound with minimal slough tissue and the patient did have a swelling redness and warmth to the right lower extremity SKIN: No rash, no masses palpable. NEUROLOGICAL: The patient is awake, alert, oriented x3, mood and affect normal. Results CBC & Chem 7: 04/26/24 03:04 04/26/24 03:04 Labs: Abnormal Lab Results - Last 24 Hours (Table) 04/25/24 04/25/24 04/25/24 Range/Units 18:11 18:11 19:50 WBC 17.8 H (3.8-10.6) k/uL RBC (4.30-5.90) m/uL Hgb (13.0-17.5) gm/dL Hct (39.0-53.0) % RDW 17.1 H (11.5-15.5) % Neutrophils # 16.2 H (1.3-7.7) k/uL Lymphocytes # 0.4 L (1.0-4.8) k/uL APTT 21.8 L (22.0-30.0) sec D-Dimer 0.70 H (<0.60) mg/L FEU Sodium (137-145) mmol/L BUN 36 H (9-20) mg/dL Creatinine 1.69 H (0.66-1.25) mg/dL Glucose 187 H (74-99) mg/dL POC Glucose (mg/dL) (70-110) mg/dL Alkaline Phosphatase 138 H (38-126) U/L Troponin I (0.000-0.034) ng/mL 04/26/24 04/26/24 04/26/24 Range/Units 03:04 03:04 03:04 WBC 17.6 H (3.8-10.6) k/uL RBC 3.98 L (4.30-5.90) m/uL Hgb 11.9 L (13.0-17.5) gm/dL Hct 38.5 L (39.0-53.0) % RDW 16.9 H (11.5-15.5) % Neutrophils # 16.0 H (1.3-7.7) k/uL Lymphocytes # 0.6 L (1.0-4.8) k/uL APTT (22.0-30.0) sec D-Dimer (<0.60) mg/L FEU Sodium 136 L (137-145) mmol/L BUN 38 H (9-20) mg/dL Creatinine 1.85 H (0.66-1.25) mg/dL Glucose 198 H (74-99) mg/dL POC Glucose (mg/dL) (70-110) mg/dL Alkaline Phosphatase (38-126) U/L Troponin I 0.550 H* (0.000-0.034) ng/mL 04/26/24 04/26/24 04/26/24 Range/Units 07:25 07:44 11:11 WBC (3.8-10.6) k/uL RBC (4.30-5.90) m/uL Hgb (13.0-17.5) gm/dL Hct (39.0-53.0) % RDW (11.5-15.5) % Neutrophils # (1.3-7.7) k/uL Lymphocytes # (1.0-4.8) k/uL APTT 37.0 H (22.0-30.0) sec D-Dimer (<0.60) mg/L FEU Sodium (137-145) mmol/L BUN (9-20) mg/dL Creatinine (0.66-1.25) mg/dL Glucose (74-99) mg/dL POC Glucose (mg/dL) 166 H (70-110) mg/dL Alkaline Phosphatase (38-126) U/L Troponin I 1.250 H* (0.000-0.034) ng/mL 04/26/24 Range/Units 12:11 WBC (3.8-10.6) k/uL RBC (4.30-5.90) m/uL Hgb (13.0-17.5) gm/dL Hct (39.0-53.0) % RDW (11.5-15.5) % Neutrophils # (1.3-7.7) k/uL Lymphocytes # (1.0-4.8) k/uL APTT (22.0-30.0) sec D-Dimer (<0.60) mg/L FEU Sodium (137-145) mmol/L BUN (9-20) mg/dL Creatinine (0.66-1.25) mg/dL Glucose (74-99) mg/dL POC Glucose (mg/dL) 130 H (70-110) mg/dL Alkaline Phosphatase (38-126) U/L Troponin I (0.000-0.034) ng/mL Assessment and Plan (1) Diabetic ulcer of right foot Current Visit: Yes Status: Acute Code(s): E11.621 - TYPE 2 DIABETES MELLITUS WITH FOOT ULCER; L97.519 - NON-PRS CHRONIC ULCER OTH PRT RIGHT FOOT W UNSP SEVERITY SNOMED Code(s): 139023471 (2) Cellulitis of right leg Current Visit: Yes Status: Acute Code(s): L03.115 - CELLULITIS OF RIGHT LOWER LIMB SNOMED Code(s): 99003444629064685 (3) Leukocytosis Current Visit: Yes Status: Acute Code(s): D72.829 - ELEVATED WHITE BLOOD CELL COUNT, UNSPECIFIED SNOMED Code(s): 635126300 Plan: 1patient with the right heel diabetic foot ulcer now with evidence of right lower extremity swelling redness and warmth concerning for secondary cellulitis of the right lower extremity likely from gram-positive skin dilcia. 2patient with elevated white count more likely related to the right lower extremity cellulitis and diabetic foot ulcer. 3local wound care with dry Aquacel dressing change every 48 hours. 4Rocephin 2 g daily empirically while waiting for the culture to finalize. at the bedside multiple question concern answered. We will follow on clinical condition and cultures to further adjust medication if needed Thank you for this consultation we will follow the patient along with you Dictation was produced using [employer] dictation software. please excuse any grammatical, word or spelling errors. Time with Patient: Greater than 30
--- NOTE | 2024-04-27 02:53 | HP ---
HISTORY AND PHYSICAL CHIEF COMPLAINT: Chest pain. HISTORY OF PRESENT ILLNESS: This is a 73-year-old gentleman with past medical history of multiple medical problems including CHF, was admitted with chest pain. The pain was felt in the anterior part of the chest. EKG showed ST-T changes. Troponins elevated up to 1.25 indicating acute blx-HY-bcapeio-elevation myocardial infarction. The patient had a foot wound also. There is no history of any fever, rigors, or chills. White count is elevated. PAST MEDICAL HISTORY: Reviewed include GERD, hypertension, hyperlipidemia, DJD, history of ulcerative colitis, ileostomy, multiple complex medical issues, history of MRSA. The rest of the history and rest of the chart is also reviewed. HOME MEDICATIONS: Reviewed include Lipitor. Dose and rest of medications reviewed. ALLERGIES: Ibuprofen. FAMILY HISTORY: History of lung cancer. SOCIAL HISTORY: No history of smoking or alcohol. REVIEW OF SYSTEMS: A 14-point review of systems is negative except as mentioned earlier. PHYSICAL EXAMINATION: VITAL SIGNS: Pulse is 66, blood pressure 150/70, respirations 17. HEENT: Conjunctivae normal. NECK: No JVD. CARDIOVASCULAR: S1, S2. RESPIRATIONS: Breath sounds diminished at the bases. ABDOMEN: Soft, obese. LEGS: Right foot wound present. NERVOUS SYSTEM: No focal deficits. SKIN: No ulcer, rash, bleeding. JOINTS: No active deforming arthropathy. LABORATORY DATA: WBC 17.6. Rest of the labs are noted. ASSESSMENT: 1. Chest pain, troponin elevated up to 1.25. Acute non ST elevation myocardial infarction. 2. Elevated WBC. 3. Right foot wound. 4. Chronic kidney disease. 5. Diabetes mellitus, type 2. 6. Hypertension. 7. Hyperlipidemia. 8. History of degenerative joint disease. 9. History of ulcerative colitis and ileostomy. 10.History of methicillin-resistant Staphylococcus aureus. 11.History of coronary artery disease stent. RECOMMENDATIONS AND DISCUSSION: This is a 73-year-old gentleman, who presented with multiple complex medical issues, we will monitor the patient closely. Continue the current management and continue symptomatic treatment. We will initiate IV heparin. Cardiology and cardiac catheterization. I would also recommend Infectious Disease evaluation, cultures, empiric antibiotics. Guarded prognosis because of multiple complex medical issues. Monitor blood sugars closely. See orders for further details. MMODL / IJN: [id number] /
[2024-04-27 05:40] LABS: Glucose,Whole Blood 117 mg/dL (70-110)
[2024-04-27 09:14] LABS: Basophils # (A) 0.05 X 10*3/uL (0.00-0.10); Basophils % (A) 0.6 %; Eosinophils # (A) 0.48 X 10*3/uL (0.04-0.35); Eosinophils % (A) 6.2 %; HGB 11.9 g/dL (13.0-17.0); Lymphocytes # (A) 0.57 X 10*3/uL (0.90-5.00); Lymphocytes % (A) 7.3 %; MCH 29.7 pg (27.0-32.0); MCHC 31.3 g/dL (32.0-37.0); MCV 94.8 FL (80.0-97.0); Monocytes # (A) 0.87 X 10*3/uL (0.20-1.00); Monocytes % (A) 11.2 %; NRBC Per 100 WBC 0 X 10*3/uL (0.00-0.01); Neutrophils # (A) 5.77 X 10*3/uL (1.80-7.70); Neutrophils % (A) 74.4 %; Platelet Count 226 X 10*3/uL (140-440); RBC 4.01 X 10*6/uL (4.40-5.60); RDW 17.1 % (11.5-14.5); WBC 7.76 X 10*3/uL (4.50-10.00)
[2024-04-27] MEDS: amLODIPine 10 MG TAB PO SCH (09:17)
[2024-04-27] MEDS: ATORVASTATIN 80 MG TAB PO SCH (09:18)
[2024-04-27] MEDS: ISOSORBIDE MONONITRATE ER 60 MG TAB.ER.24H PO SCH (09:19)
[2024-04-27 09:46] LABS: ALT 16 U/L (10-49); AST 22 U/L (14-35); Albumin 3.4 g/dL (3.8-4.9); Albumin/Globulin Ratio 1.21 Ratio (1.60-3.17); Alkaline Phosphatase 100 U/L (41-126); BUN/Creat Ratio 18.47 Ratio (12.00-20.00); Blood Urea Nitrogen 27.7 mg/dL (9.0-27.0); Calcium 8.8 mg/dL (8.7-10.3); Carbon Dioxide 23.1 mmol/L (21.6-31.8); Chloride 108 mmol/L (96-109); Globulin 2.8 g/dL (1.6-3.3); Glucose 126 mg/dL (70-110); Sodium 142 mmol/L (135-145); Total Bilirubin <0.2 mg/dL (0.3-1.2); Total Protein 6.2 g/dL (6.2-8.2)
[2024-04-27 10:12] LABS: INR 1.01 sec (0.93-1.11); Prothrombin Time 11.3 sec (9.9-11.9)
[2024-04-27 11:37] VITALS: BMI 40.3
[2024-04-27 12:34] LABS: Glucose,Whole Blood 163 mg/dL (70-110)
--- NOTE | 2024-04-27 15:57 | P.PN ---
Subjective Progress Note Date: 04/27/24 Principal diagnosis: Reason for follow-up is right heel wound and right leg cellulitis Patient is a 73-year-old male with a past medical history significant for diabetes mellitus hypertension hyperlipidemia reflux osteoarthritis patient also has developed a wound to the right heel area which is currently being treated at [facility] wound [facility] [place] by Dr. Jernigan, present to the hospital with chest pain he did have elevated white count some redness of the right leg con cerning for cellulitis prompting this consultation. On today's evaluation that is 04/27/2024, patient did not have any fever and denies any chills, patient is breathing comfortably on room air, patient with no chest pain or cough patient did not have any abdominal pain nausea vomiting or any loose stools, swelling redness of right leg slightly decreased. Patient white count 7.76, creatinine is 1.5 cultures are currently pending Objective - Vital Signs Vital signs: Vital Signs Temp 97.7 F 04/27/24 14:52 Pulse 84 04/27/24 14:52 Resp 18 04/27/24 14:52 BP 160/66 04/27/24 14:52 Pulse Ox 95 04/27/24 14:52 FiO2 Intake & Output 04/26/24 04/27/24 04/27/24 18:59 06:59 18:59 Intake Total 600 641 Balance 600 641 Weight 113.398 kg Intake: IV 600 50 Sodium Chloride 0.9% 1, 100 000 ml @ 100 mls/hr IV . Q10H JOSÉ Rx#:[id number] Oral 591 Other: # Voids 1 2 # Bowel Movements 1 - Exam GENERAL DESCRIPTION: An elderly male lying in bed in no distress RESPIRATORY SYSTEM: Unlabored breathing , decreased breath sounds at bases HEART: S1 S2 regular rate and rhythm , ABDOMEN: Soft , no tenderness EXTREMITIES: Right leg swelling redness slightly decreased right heel wound is currently dressed - Labs CBC & Chem 7: 04/27/24 05:10 04/27/24 05:10 Labs: Abnormal Lab Results - Last 24 Hours (Table) 04/26/24 04/26/24 04/26/24 Range/Units 14:00 20:20 21:55 RBC (4.40-5.60) X 10*6/uL Hgb (13.0-17.0) g/dL Hct (39.6-50.0) % MCHC (32.0-37.0) g/dL RDW (11.5-14.5) % Lymphocytes # (0.90-5.00) X 10*3/uL Eosinophils # (0.04-0.35) X 10*3/uL BUN (9.0-27.0) mg/dL Est GFR (CKD-EPI) (>=60) Glucose (70-110) mg/dL POC Glucose (mg/dL) 111 H (70-110) mg/dL Hemoglobin A1c (<=6.0) % Total Bilirubin (0.3-1.2) mg/dL Troponin I 1.720 H* (0.000-0.034) ng/mL Albumin (3.8-4.9) g/dL Albumin/Globulin Ratio (1.60-3.17) Ratio Urine Protein Trace H (Negative) Urine Glucose (UA) 4+ H (Negative) 04/27/24 04/27/24 04/27/24 Range/Units 00:16 05:10 05:10 RBC 4.01 L (4.40-5.60) X 10*6/uL Hgb 11.9 L (13.0-17.0) g/dL Hct 38.0 L (39.6-50.0) % MCHC 31.3 L (32.0-37.0) g/dL RDW 17.1 H (11.5-14.5) % Lymphocytes # 0.57 L (0.90-5.00) X 10*3/uL Eosinophils # 0.48 H (0.04-0.35) X 10*3/uL BUN (9.0-27.0) mg/dL Est GFR (CKD-EPI) (>=60) Glucose (70-110) mg/dL POC Glucose (mg/dL) (70-110) mg/dL Hemoglobin A1c 7.0 H (<=6.0) % Total Bilirubin (0.3-1.2) mg/dL Troponin I 1.680 H* (0.000-0.034) ng/mL Albumin (3.8-4.9) g/dL Albumin/Globulin Ratio (1.60-3.17) Ratio Urine Protein (Negative) Urine Glucose (UA) (Negative) 04/27/24 04/27/24 04/27/24 Range/Units 05:10 05:39 12:32 RBC (4.40-5.60) X 10*6/uL Hgb (13.0-17.0) g/dL Hct (39.6-50.0) % MCHC (32.0-37.0) g/dL RDW (11.5-14.5) % Lymphocytes # (0.90-5.00) X 10*3/uL Eosinophils # (0.04-0.35) X 10*3/uL BUN 27.7 H (9.0-27.0) mg/dL Est GFR (CKD-EPI) 49 L (>=60) Glucose 126 H (70-110) mg/dL POC Glucose (mg/dL) 117 H 163 H (70-110) mg/dL Hemoglobin A1c (<=6.0) % Total Bilirubin <0.2 L (0.3-1.2) mg/dL Troponin I (0.000-0.034) ng/mL Albumin 3.4 L (3.8-4.9) g/dL Albumin/Globulin Ratio 1.21 L (1.60-3.17) Ratio Urine Protein (Negative) Urine Glucose (UA) (Negative) Microbiology - Last 24 Hours (Table) 04/26/24 01:08 Blood Culture - Preliminary Blood Assessment and Plan (1) Diabetic ulcer of right foot Current Visit: Yes Status: Acute Code(s): E11.621 - TYPE 2 DIABETES MELLITUS WITH FOOT ULCER; L97.519 - NON-PRS CHRONIC ULCER OTH PRT RIGHT FOOT W UNSP SE VERITY SNOMED Code(s): 143800241 (2) Cellulitis of right leg Current Visit: Yes Status: Acute Code(s): L03.115 - CELLULITIS OF RIGHT LOWER LIMB SNOMED Code(s): 31639386305231537 (3) Leukocytosis Current Visit: Yes Status: Acute Code(s): D72.829 - ELEVATED WHITE BLOOD CELL COUNT, UNSPECIFIED SNOMED Code(s): 233949270 Plan: 1patient with the right heel diabetic foot ulcer now with evidence of right lower extremity swelling redness and warmth concerning for secondary cellulitis of the right lower extremity likely from gram-positive skin dilcia. 2patient with elevated white count more likely related to the right lower extremity cellulitis and diabetic foot ulcer. 3local wound care with dry Aquacel dressing change every 48 hours. 4patient white count has normalized we will continue with Rocephin while waiting for the culture to finalize Dictation was produced using [employer] dictation software. please excuse any grammatical, word or spelling errors. Time with Patient: Less than 30
[2024-04-27 17:35] LABS: Glucose,Whole Blood 228 mg/dL (70-110)
[2024-04-27] MEDS: ACETAMINOPHEN TAB 325 MG TAB PO STA (17:38)
[2024-04-27] MEDS ORDERED: ACETAMINOPHEN TAB 325 MG TAB PO PRN (19:11)
[2024-04-27 20:30] LABS: Glucose,Whole Blood 243 mg/dL (70-110)
[2024-04-28 05:31] LABS: Glucose,Whole Blood 119 mg/dL (70-110)
[2024-04-28 07:45] VITALS: BP 174/76; PULSE 71; RESP 16; TEMP 97.6
[2024-04-28] MEDS: hydrALAZINE HCL 50 MG TAB PO SCH (09:10)
[2024-04-28 09:52] LABS: Basophils # (A) 0.05 X 10*3/uL (0.00-0.10); Basophils % (A) 0.8 %; Eosinophils % (A) 10.5 %; HCT 38.6 % (39.6-50.0); HGB 12.2 g/dL (13.0-17.0); Lymphocytes # (A) 0.47 X 10*3/uL (0.90-5.00); Lymphocytes % (A) 7.1 %; MCH 29.6 pg (27.0-32.0); MCHC 31.6 g/dL (32.0-37.0); MCV 93.7 FL (80.0-97.0); Mean Platelet Volume 10.3 FL (9.5-12.2); Monocytes # (A) 0.67 X 10*3/uL (0.20-1.00); Monocytes % (A) 10.1 %; NRBC Per 100 WBC 0 X 10*3/uL (0.00-0.01); Neutrophils # (A) 4.74 X 10*3/uL (1.80-7.70); Neutrophils % (A) 71.2 %; Platelet Count 238 X 10*3/uL (140-440); RBC 4.12 X 10*6/uL (4.40-5.60); RDW 17.2 % (11.5-14.5); WBC 6.65 X 10*3/uL (4.50-10.00)
[2024-04-28 10:03] LABS: ALT 16 U/L (10-49); AST 22 U/L (14-35); Albumin 3.6 g/dL (3.8-4.9); Albumin/Globulin Ratio 1.38 Ratio (1.60-3.17); Alkaline Phosphatase 102 U/L (41-126); BUN/Creat Ratio 16.12 Ratio (12.00-20.00); Blood Urea Nitrogen 25.8 mg/dL (9.0-27.0); Calcium 9.2 mg/dL (8.7-10.3); Carbon Dioxide 23.2 mmol/L (21.6-31.8); Chloride 107 mmol/L (96-109); Globulin 2.6 g/dL (1.6-3.3); Glucose 120 mg/dL (70-110); Potassium 3.9 mmol/L (3.5-5.5); Sodium 143 mmol/L (135-145); Total Bilirubin 0.2 mg/dL (0.3-1.2); Total Protein 6.2 g/dL (6.2-8.2)
--- NOTE | 2024-04-28 13:31 | P.PN ---
Subjective Progress Note Date: 04/28/24 Principal diagnosis: Reason for follow-up is right heel wound and right leg cellulitis Patient is a 73-year-old male with a past medical history significant for diabetes mellitus hypertension hyperlipidemia reflux osteoarthritis patient also has developed a wound to the right heel area which is currently being treated at [facility] wound care [place] by Dr. Jernigan, present to the hospital with chest pain he did have elevated white count some redness of the right leg con cerning for cellulitis prompting this consultation. On today's evaluation that is 04/28/2024, Patient is afebrile patient is currently on room air and denies having any shortness of breath, the patient denies any chest pain or cough, the patient denies any nausea vomiting did not have any abdominal pain and no diarrhea patient swelling redness slightly decreased feeling better wants to go home. Patient white count is 6.65, creatinine is 1.6 unfortunately culture from the right hand has been lost as not available in the micro section and blood culture has been negative Objective - Vital Signs Vital signs: Vital Signs Temp 97.6 F 04/28/24 07:00 Pulse 71 04/28/24 07:00 Resp 16 04/28/24 07:00 BP 174/76 04/28/24 07:00 Pulse Ox 97 04/28/24 07:00 FiO2 Intake & Output 04/27/24 04/28/24 04/28/24 18:59 06:59 18:59 Intake Total 118 Balance 118 Weight 113.398 kg Intake: Oral 118 Other: # Voids 2 2 - Exam GENERAL DESCRIPTION: An elderly male lying in bed in no distress RESPIRATORY SYSTEM: Unlabored breathing , decreased breath sounds at bases HEART: S1 S2 regular rate and rhythm , ABDOMEN: Soft , no tenderness EXTREMITIES: Right leg swelling redness slightly decreased right heel wound is currently dressed - Labs CBC & Chem 7: 04/28/24 05:44 04/28/24 05:44 Labs: Abnormal Lab Results - Last 24 Hours (Table) 04/27/24 04/27/24 04/27/24 Range/Units 12:32 17:33 20:29 RBC (4.40-5.60) X 10*6/uL Hgb (13.0-17.0) g/dL Hct (39.6-50.0) % MCHC (32.0-37.0) g/dL RDW (11.5-14.5) % Lymphocytes # (0.90-5.00) X 10*3/uL Eosinophils # (0.04-0.35) X 10*3/uL Anion Gap (4.00-12.00) mmol/L Creatinine (0.6-1.5) mg/dL Est GFR (CKD-EPI) (>=60) Glucose (70-110) mg/dL POC Glucose (mg/dL) 163 H 228 H 243 H (70-110) mg/dL Total Bilirubin (0.3-1.2) mg/dL Albumin (3.8-4.9) g/dL Albumin/Globulin Ratio (1.60-3.17) Ratio 04/28/24 04/28/24 04/28/24 Range/Units 05:27 05:44 05:44 RBC 4.12 L (4.40-5.60) X 10*6/uL Hgb 12.2 L (13.0-17.0) g/dL Hct 38.6 L (39.6-50.0) % MCHC 31.6 L (32.0-37.0) g/dL RDW 17.2 H (11.5-14.5) % Lymphocytes # 0.47 L (0.90-5.00) X 10*3/uL Eosinophils # 0.70 H (0.04-0.35) X 10*3/uL Anion Gap 12.80 H (4.00-12.00) mmol/L Creatinine 1.6 H (0.6-1.5) mg/dL Est GFR (CKD-EPI) 45 L (>=60) Glucose 120 H (70-110) mg/dL POC Glucose (mg/dL) 119 H (70-110) mg/dL Total Bilirubin 0.2 L (0.3-1.2) mg/dL Albumin 3.6 L (3.8-4.9) g/dL Albumin/Globulin Ratio 1.38 L (1.60-3.17) Ratio Microbiology - Last 24 Hours (Table) 04/26/24 01:08 Blood Culture - Preliminary Blood Assessment and Plan (1) Diabetic ulcer of right foot Current Visit: Yes Status: Acute Code(s): E11.621 - TYPE 2 DIABETES MELLITUS WITH FOOT ULCER; L97.519 - NON-PRS CHRONIC ULCER OTH PRT RIGHT FOOT W UNSP SEVERITY SNOMED Code(s): 658989002 (2) Cellulitis of right leg Current Visit: Yes Status: Acute Code(s): L03.115 - CELLULITIS OF RIGHT LOWER LIMB SNOMED Code(s): 74190426160821915 (3) Leukocytosis Current Visit: Yes Status: Acute Code(s): D72.829 - ELEVATED WHITE BLOOD CELL COUNT, UNSPECIFIED SNOMED Code(s): 834985123 Plan: 1patient with the right heel diabetic foot ulcer now with evidence of right lo wer extremity swelling redness and warmth concerning for secondary cellulitis of the right lower extremity likely from gram-positive skin dilcia. 2patient with elevated white count more likely related to the right lower extremity cellulitis and diabetic foot ulcer. 3local wound care with dry Aquacel dressing change every 48 hours. 4patient white count has normalized blood culture negative local culture has been lost keeping in mind improvement on the Rocephin we will consider 7-day course of oral Ceftin on discharge discussed with the SENIOR SOFTWARE ENGINEER for admitting team Dictation was produced using [employer] dictation software. please excuse any grammatical, word or spelling errors. Time with Patient: Less than 30
--- NOTE | 2024-04-29 09:09 | PN ---
PROGRESS NOTE DATE OF SERVICE: 04/27/2024 HISTORY OF PRESENT ILLNESS: This is a 73-year-old gentleman who was admitted with chest pain, also had a cardiac catheterization. During the cardiac cath, balloon angioplasty for second diagonal branch was attempted. The patient also had leg wound infection and has elevated WBC also. No chest pain. No palpitation. PAST MEDICAL HISTORY: Reviewed. REVIEW OF SYSTEMS: A 14-point review of systems is negative. CURRENT MEDICATIONS: Reviewed. PHYSICAL EXAMINATION: VITAL SIGNS: Pulse is 84, blood pressure n, respirations 18. CHEST: A few scattered rhonchi. ABDOMEN: Soft.n LEGS: Foot infection present. LABORATORY DATA: WBC 7.6. Rest of the labs are noted. ASSESSMENT: 1. Chest pain. Troponin elevated to 1.25. Possible acute kax-RT-iwadlqs elevation myocardial infarction. Status post cardiac catheterization. Recommend medical treatment. 2. Elevated WBC, improving. 3. Right foot wound. 4. Chronic kidney disease. 5. Diabetes mellitus, type 2. 6. Hypertension. 7. Hyperlipidemia. 8. History of degenerative joint disease. 9. History of ulcerative colitis, ileostomy. 10.History of methicillin-resistant Staphylococcus aureus. 11.History coronary artery disease with stent. RECOMMENDATIONS: Recommend to continue current management and continue symptomatic treatment. Otherwise, at this time, I would recommend to continue the current medications. Continue the antibiotics. Closely follow up with Infectious Disease. Further recommendations to follow. MMLINDSEYL / JOYCEN: [id number] / ANISA
--- NOTE | 2024-04-29 09:09 | CONS ---
CONSULTATION SUBJECTIVE: This is a 73-year-old gentleman, who underwent cardiac catheterization by Dr. Bales yesterday that revealed a patent stent within the LAD, late stent thrombosis of the 2nd diagonal branch with an unsuccessful attempt at angioplasty of the diagonal, and severe disease involving the OM. The plan at this stage is to treat him with optimal medical therapy and see how his symptoms evolve. This morning, he is doing well, and his chest pain had resolved. PHYSICAL EXAMINATION: VITAL SIGNS: Blood pressure is elevated at 160/90. He is currently on amlodipine 5 mg daily. I will increase the dose. NECK: There is no jugular venous distention. Carotid upstroke is normal. There is no bruit. CHEST: Good air entry bilaterally. HEART: First and second heart sounds. No gallop. EXTREMITIES: Did not reveal any edema. Vascular access site appears normal. LABORATORY DATA: Labs are pending at this time. His peak troponin was 1.7, it has come down to 1.6 this morning. ASSESSMENT AND PLAN: Coronary artery disease, status post unsuccessful angioplasty of the diagonal branch. The patient is pain-free. We will ambulate him, hopefully home tomorrow. White cell count had come down. MMODL / IJN: [id number] /
--- NOTE | 2024-04-29 09:11 | PN ---
PROGRESS NOTE SUBJECTIVE: 73-year-old gentleman who underwent cardiac catheterization and unsuccessful angioplasty of the diagonal branch. He is doing well, free of any symptoms, and stable for discharge. OBJECTIVE: VITAL SIGNS: His blood pressure is elevated at 174/70. Right radial artery access site appears normal. NECK: There is no jugular venous distention. Carotid upstroke is normal. There is no bruit. CHEST: Reveals good air entry bilaterally. HEART: Reveals first and second heart sounds. No gallop. EXTREMITIES: Did not reveal any edema. Peripheral pulses are felt. ASSESSMENT: 1. Unstable angina, status post cardiac catheterization and unsuccessful angioplasty of the diagonal branch. 2. Uncontrolled hypertension. PLAN: I will add hydralazine. He can be discharged home today and follow up with Dr. Bales in the office. MMODL / IJN: [id number] /
--- NOTE | 2024-04-30 13:05 | P.DS ---
Providers Date of admission: 04/26/24 12:45 Expected date of discharge: 04/28/24 Attending physician: Maury Gabriel Consults: 04/25/24 21:44 Consult Physician Urgent Consulting Provider: Cathy Chapman Consult Reason/Comments: acute chest pain, hx ascad Do you want consulting provider notified?: Yes 04/26/24 14:48 Consult Physician Routine Consulting Provider: Krishan Ontiveros Consult Reason/Comments: diabetic foot Do you want consulting provider notified?: Yes 04/26/24 19:34 Consult Physician Routine Consulting Provider: Cathy Chapman Consult Reason/Comments: Post Interventional patient Do you want consulting provider notified?: Already Contacted Primary care physician: Nas Dennis [facility] Course: Final diagnosis Chest pain, troponin elevated 1.25, acute NSTEMI, status post CAD artery catheterization continuing medical management Elevated white blood count, improved Right foot wound, present on admission, chronic follows at the wound care center outpatient Hypertension history Diabetes mellitus, type II Hyperlipidemia History of degenerative joint disease History of ulcerative colitis with ileostomy History of MRSA History of coronary artery disease with stent Discharge disposition Patient is being discharged in a stable condition with guarded prognosis to home. Patient will follow-up with Dr. Dennis in the outpatient setting upon discharge. Patient is to continue with current medications and outpatient follow-up with cardiology as well as the wound care center as scheduled. Total time taken is greater than 35 minutes. Hospital course This is a 73-year-old male who was recently admitted with chest pain being closely monitored with cardiology following. Patient also noted to have significant leukocytosis on admission and there was a right foot wound although it is chronic and patient follows with the wound care center outpatient. There was some drainage noted and patient was evaluated by infectious disease. White count has normalized and patient remains afebrile and has been cleared for discharge home. Patient will continue on oral antibiotics along with continued wound care and close outpatient follow-up with the wound care center. Patient evaluated by cardiology underwent cardiac catheterization and will continue with maximizing medical management. Patient reports feeling well and would like to go home and patient has been cleared by consultations. Patient will continue on Plavix as opposed to Brilinta that was prescribed because he cannot afford Brilinta. Patient to follow-up with cardiology on discharge. Please refer to other consultation notes for further HPI. Currently no reports of chest pain, shortness of breath, or palpitations. Patient is afebrile. No reports of nausea or vomiting and patient is tolerating diet. Patient will be discharged home today. Guarded prognosis and high risk for readmissions given significant comorbidities. Physical exam: Gen: This is a 73-year-old male who is awake, alert and oriented x 3, well- developed, well-nourished, morbidly obese HEENT: Head is atraumatic, normocephalic. Pupils equal, round. Sclerae is anicteric. NECK: Supple. No JVD. No lymphadenopathy. No thyromegaly. LUNGS: Diminished breath sounds bilaterally otherwise clear to auscultation. No wheezes or rhonchi. No intercostal retractions. HEART: S1, S2 are muffled ABDOMEN: Soft. Obese bowel sounds are present. No masses. No tenderness. EXTREMITIES: No pedal edema. No calf tenderness. Right foot wound, chronic present on admission NEUROLOGICAL: Patient is awake, alert and oriented x3. Cranial nerves 2 through 12 are grossly intact. Please refer to medication reconciliation sheet for a list of medications. The impression and plan of care has been dictated by Willa Clark, Nurse Practitioner as directed. Dr. Harvey MD I have performed a history and examination and MDM of this patient, discussed the same with the dictator, and agree with the dictator's assessment and plan as written ,documented as a scribe. Based on total visit time, I have performed more than 50% of the visit. Patient Condition at Discharge: Stable Plan - Discharge Summary Discharge Rx Participant: No New Discharge Prescriptions: New amLODIPine [Norvasc] 10 mg PO DAILY #30 tab Ranolazine [Ranexa] 500 mg PO Q12HR #60 tab hydrALAZINE HCL [Apresoline] 50 mg PO TID #90 tab Isosorbide Mononitrate ER [Imdur] 60 mg PO DAILY #30 tab Acetaminophen Tab [Tylenol] 650 mg PO Q6HR PRN tab PRN Reason: Fever And/ Or Pain cefuroxime axetiL [Ceftin] 500 mg PO BID 7 Days #14 tab Clopidogrel [Plavix] 75 mg PO DAILY 30 Days #30 tablet Continue Aspirin EC [Ecotrin Low Dose] 81 mg PO DAILY Ergocalciferol (Vitamin D2) [Drisdol (50,000 Iu)] 1,250 mcg PO Q14D allopurinoL [Zyloprim] 200 mg PO DAILY Gabapentin [Neurontin] 100 mg PO HS Torsemide [Demadex] 30 mg PO Q2D Atorvastatin [Lipitor] 40 mg PO DAILY Pantoprazole [Protonix] 40 mg PO DAILY Escitalopram [Lexapro] 10 mg PO DAILY calcitrioL 0.25 mcg PO MO Metoprolol Succinate (ER) [Toprol XL] 25 mg PO DAILY #30 tab Butalb/APAP/Caff 50-325-40Mg [Fioricet 50-325-40] 1 tab PO Q4H PRN PRN Reason: Migraine Headache Ferrous Sulfate [Iron (65 MG Elemental)] 325 mg PO DAILY Dapagliflozin Propanediol [Farxiga] 10 mg PO DAILY Insulin Aspart [NovoLOG Flexpen] 30 - 40 units SQ AC-TID Torsemide [Demadex] 40 mg PO Q2D Insulin Glargine,Hum.rec.anlog [Toujeo Solostar] 50 units SQ HS Triamcinolone 0.5% Cream [Kenalog 0.5% Cream] 1 applic TOPICAL BID PRN PRN Reason: rash/dry skin Discontinued Isosorbide Mononitrate ER [Imdur] 30 mg PO DAILY amLODIPine [Norvasc] 5 mg PO DAILY tab Clopidogrel [Plavix] 75 mg PO DAILY #30 tab Discharge Medication List Aspirin EC [Ecotrin Low Dose] 81 mg PO DAILY 11/08/18 [History] Ergocalciferol (Vitamin D2) [Drisdol (50,000 Iu)] 1,250 mcg PO Q14D 06/25/20 [History] allopurinoL [Zyloprim] 200 mg PO DAILY 10/21/21 [History] Dapagliflozin Propanediol [Farxiga] 10 mg PO DAILY 11/05/21 [History] Gabapentin [Neurontin] 100 mg PO HS 06/30/23 [History] Torsemide [Demadex] 30 mg PO Q2D 06/30/23 [History] Atorvastatin [Lipitor] 40 mg PO DAILY 07/25/23 [History] Insulin Aspart [NovoLOG Flexpen] 30 - 40 units SQ AC-TID 08/16/23 [History] Torsemide [Demadex] 40 mg PO Q2D 08/16/23 [History] Escitalopram [Lexapro] 10 mg PO DAILY 02/10/24 [History] Pantoprazole [Protonix] 40 mg PO DAILY 02/10/24 [History] calcitrioL 0.25 mcg PO MO 02/10/24 [History] Metoprolol Succinate (ER) [Toprol XL] 25 mg PO DAILY #30 tab 02/19/24 [Rx] Butalb/APAP/Caff 50-325-40Mg [Fioricet 50-325-40] 1 tab PO Q4H PRN 04/25/24 [History] Ferrous Sulfate [Iron (65 MG Elemental)] 325 mg PO DAILY 04/25/24 [History] Insulin Glargine,Hum.rec.anlog [Toujeo Solostar] 50 units SQ HS 04/25/24 [History] Triamcinolone 0.5% Cream [Kenalog 0.5% Cream] 1 applic TOPICAL BID PRN 04/25/24 [History] Acetaminophen Tab [Tylenol] 650 mg PO Q6HR PRN tab 04/28/24 [Rx] Clopidogrel [Plavix] 75 mg PO DAILY 30 Days #30 tablet 04/28/24 [Rx] Isosorbide Mononitrate ER [Imdur] 60 mg PO DAILY #30 tab 04/28/24 [Rx] Ranolazine [Ranexa] 500 mg PO Q12HR #60 tab 04/28/24 [Rx] amLODIPine [Norvasc] 10 mg PO DAILY #30 tab 04/28/24 [Rx] cefuroxime axetiL [Ceftin] 500 mg PO BID 7 Days #14 tab 04/28/24 [Rx] hydrALAZINE HCL [Apresoline] 50 mg PO TID #90 tab 04/28/24 [Rx] Follow up Appointment(s)/Referral(s): Nas Dennis DO [Primary Care Provider] - 1-2 days Yobany Bales MD [STAFF PHYSICIAN] - 1 Week [facility] [NON-STAFF] - 1 Week Patient Instructions/Handouts: *Surgery [facility] - After Heart Catheterization - Software Packager Instructions, Chest Pain (DC) Activity/Diet/Wound Care/Special Instructions: spoke to Dr. Vines resume plavix as prescribed instead of the Brilinta Activity limited until follow-up Follow-up with primary care provider on discharge Follow-up with cardiology outpatient Continue taking medications as prescribed Follow-up with the wound care center Continue local wound care Discharge Disposition: HOME SELF-CARE
== END 2024-04-28 13:01 | disposition home or self-care (01) | DRG 281 ==
LOC: EC 17:52 → 6NMEDSUR 21:45 → OBSVTOIN 04-26 12:45
PROVIDERS: ADMIT Hospitalist; ATTEND Hospitalist
PROC: 4A023N7 Measurement of Cardiac Sampling and Pressure, Left Heart, Percutaneous Approach (ICD-10-PCS; principal; 2024-04-26 15:15)
PROC: B2111ZZ Fluoroscopy of Multiple Coronary Arteries using Low Osmolar Contrast (ICD-10-PCS; 2024-04-26 15:15)
PROC: B240ZZ3 Ultrasonography of Single Coronary Artery, Intravascular (ICD-10-PCS; 2024-04-26 15:15)
DX: I21.4 Non-ST elevation (NSTEMI) myocardial infarction (principal); I13.0 Hypertensive heart and chronic kidney disease with heart failure and stage 1 through stage 4 chronic kidney disease, or unspecified chronic kidney disease; L03.115 Cellulitis of right lower limb; T82.867A Thrombosis due to cardiac prosthetic devices, implants and grafts, initial encounter; E78.5 Hyperlipidemia, unspecified; I25.10 Atherosclerotic heart disease of native coronary artery without angina pectoris; K21.9 Gastro-esophageal reflux disease without esophagitis; K22.4 Dyskinesia of esophagus; Z87.19 Personal history of other diseases of the digestive system; I50.9 Heart failure, unspecified; E11.621 Type 2 diabetes mellitus with foot ulcer; N18.9 Chronic kidney disease, unspecified; E11.22 Type 2 diabetes mellitus with diabetic chronic kidney disease; M19.90 Unspecified osteoarthritis, unspecified site; L97.519 Non-pressure chronic ulcer of other part of right foot with unspecified severity; Z79.02 Long term (current) use of antithrombotics/antiplatelets; Z79.4 Long term (current) use of insulin; Z79.82 Long term (current) use of aspirin; Z79.84 Long term (current) use of oral hypoglycemic drugs; Z79.899 Other long term (current) drug therapy; Z85.46 Personal history of malignant neoplasm of prostate; Z86.14 Personal history of Methicillin resistant Staphylococcus aureus infection; Z86.16 Personal history of COVID-19; Z92.21 Personal history of antineoplastic chemotherapy; Z88.6 Allergy status to analgesic agent; Z98.42 Cataract extraction status, left eye; Z98.41 Cataract extraction status, right eye
CPT/HCPCS: 36415; 71046; 80048; 80053; 81003; 82272; 83036; 83605; 83735; 83880; 84484; 85025; 85379; 85610; 85730; 87040; 92920; 92978; 93005; 93458; 96374; 99285

== ENCOUNTER 2024-05-28 14:06 | Inpatient (IN) | payer MEDICARE ==
--- NOTE | 2024-05-28 14:17 | ED ---
Chest Pain HPI - General Chief Complaint: Chest Pain Stated Complaint: Chest pain,Headache Time Seen by Provider: 05/28/24 14:16 Source: patient, RN notes reviewed, old records reviewed Mode of arrival: ambulatory Limitations: no limitations - History of Present Illness Initial Comments: This is a 73-year-old male to ER with shortness of breath exertional dyspnea worsening shortness of breath especially with exertion for some time increasing swelling of the legs increasing belly breathing and occasional chest pain. Also complaining of headaches that have been persistent for weeks to months MD Complaint: chest pain, other (Aching shortness of breath with exertion) -: days(s) Onset: during exertion Pain Location: substernal Pain Radiation: none Severity: moderate Severity scale (1-10): 6 Quality: aching Consistency: constant Improves With: nothing Worsens With: nothing Anginal Symptoms: dyspnea, sense of impending doom Other Symptoms: palpitations Treatments Prior to Arrival: none - Related Data Home Medications Medication Instructions Recorded Confirmed Aspirin EC [Ecotrin Low Dose] 81 mg PO DAILY 11/08/18 04/25/24 Ergocalciferol (Vitamin D2) 1,250 mcg PO Q14D 06/25/20 04/25/24 [Drisdol (50,000 Iu)] allopurinoL [Zyloprim] 200 mg PO DAILY 10/21/21 04/25/24 Dapagliflozin Propanediol [Farxiga] 10 mg PO DAILY 11/05/21 04/25/24 Gabapentin [Neurontin] 100 mg PO HS 06/30/23 04/25/24 Torsemide [Demadex] 30 mg PO Q2D 06/30/23 04/25/24 Atorvastatin [Lipitor] 40 mg PO DAILY 07/25/23 04/25/24 Insulin Aspart [NovoLOG Flexpen] 30 - 40 units SQ AC-TID 08/16/23 04/25/24 Torsemide [Demadex] 40 mg PO Q2D 08/16/23 04/25/24 Escitalopram [Lexapro] 10 mg PO DAILY 02/10/24 04/25/24 Pantoprazole [Protonix] 40 mg PO DAILY 02/10/24 04/25/24 calcitrioL 0.25 mcg PO MO 02/10/24 04/25/24 Butalb/APAP/Caff 50-325-40Mg 1 tab PO Q4H PRN 04/25/24 04/25/24 [Fioricet 50-325-40] Ferrous Sulfate [Iron (65 MG 325 mg PO DAILY 04/25/24 04/25/24 Elemental)] Insulin Glargine,Hum.rec.anlog 50 units SQ HS 04/25/24 04/25/24 [Toujethelma Solostar] Triamcinolone 0.5% Cream [Kenalog 1 applic TOPICAL BID PRN 04/25/24 04/25/24 0.5% Cream] Previous Rx's Medication Instructions Recorded Metoprolol Succinate (ER) [Toprol 25 mg PO DAILY #30 tab 02/19/24 XL] Acetaminophen Tab [Tylenol] 650 mg PO Q6HR PRN tab 04/28/24 Clopidogrel [Plavix] 75 mg PO DAILY 30 Days #30 tablet 04/28/24 Isosorbide Mononitrate ER [Imdur] 60 mg PO DAILY #30 tab 04/28/24 Ranolazine [Ranexa] 500 mg PO Q12HR #60 tab 04/28/24 amLODIPine [Norvasc] 10 mg PO DAILY #30 tab 04/28/24 cefuroxime axetiL [Ceftin] 500 mg PO BID 7 Days #14 tab 04/28/24 hydrALAZINE HCL [Apresoline] 50 mg PO TID #90 tab 04/28/24 Allergies Allergy/AdvReac Type Severity Reaction Status Date / Time ibuprofen [From Motrin] Allergy Anaphylaxis Verified 05/28/24 14:13 Review of Systems ROS Statement: Those systems with pertinent positive or pertinent negative responses have been documented in the HPI. ROS Other: All systems not noted in ROS Statement are negative. EKG Findings - EKG Comments: EKG Findings:: EKG is sinus 75 [place] 185 QRS 93 QTc 395 - EKG Results: EKG: interpreted by ERMD Past Medical History Past Medical History: Cancer, Chest Pain / Angina, Diabetes Mellitus, Eye Disor rodrigo, GERD/Reflux, Hyperlipidemia, Hypertension, Osteoarthritis (OA), Prostate Disorder, Renal Disease Additional Past Medical History / Comment(s): HX OF ULCERATIVE COLITIS, i leostomy PARASTOMAL HERNIA, PROSTATE CA WITH RADIATION AND CHEMO IN 2020, LOW KIDNEY FUNCTION,Covid Dec 2022, Influenza A Jun 2023, eye condition, unsure of name. History of Any Multi-Drug Resistant Organisms: MRSA Date of last positivie culture/infection: 05/24/24 MDRO Source:: rt heel, scalp Past Surgical History: Appendectomy, Bowel Resection, Heart Catheterization, Heart Catheterization With Stent Additional Past Surgical History / Comment(s): COLECTOMY, RECTUM REMOVED, ELLIOTT CATARACTS removed, ILEOSTOMY, HERNIA SURGERY. Past Anesthesia/Blood Transfusion Reactions: No Reported Reaction Additional Past Anesthesia/Blood Transfusion Reaction / Comment(s): no problems with prior blood transfusions. Date of Last Stent Placement:: 08/01/2023 Past Psychological History: No Psychological Hx Reported Smoking Status: Never smoker Past Alcohol Use History: None Reported Past Drug Use History: None Reported - Past Family History Mother Family Medical History: Cancer Additional Family Medical History / Comment(s): LUNG CANCER. Father Family Medical History: Cancer Additional Family Medical History / Comment(s): MELANOMA/BRAIN CANCER. General Exam Limitations: no limitations General appearance: alert, in no apparent distress Head exam: Present: atraumatic, normocephalic, normal inspection Eye exam: Present: normal appearance, PERRL, EOMI. Absent: scleral icterus, conjunctival injection, periorbital swelling ENT exam: Present: normal exam, mucous membranes moist Neck exam: Present: normal inspection. Absent: tenderness, meningismus, lymphadenopathy Respiratory exam: Present: respiratory distress, wheezes, accessory muscle use, decreased breath sounds, prolonged expiratory. Absent: rales, rhonchi, stridor Cardiovascular Exam: Present: regular rate, normal rhythm, normal heart sounds. Absent: systolic murmur, diastolic murmur, rubs, gallop, clicks GI/Abdominal exam: Present: soft, normal bowel sounds. Absent: distended, tenderness, guarding, rebound, rigid Extremities exam: Present: normal inspection, full ROM, normal capillary refill. Absent: tenderness, pedal edema, joint swelling, calf tenderness Back exam: Present: normal inspection Neurological exam: Present: alert, oriented X3, CN II-XII intact Psychiatric exam: Present: normal affect, normal mood Skin exam: Present: warm, dry, intact, normal color. Absent: rash Course Vital Signs 05/28/24 14:10 Temperature 97.6 F Pulse Rate 78 Respiratory 26 H Rate Blood Pressure 144/56 O2 Sat by Pulse 92 L Oximetry - Reevaluation(s) Reevaluation #1: 01/28/25 16:12 Records reviewed Reevaluation #2: 05/28/24 16:12 Patient symptoms improved Reevaluation #3: 05/28/24 16:12 Patient informed of results questions answered Reevaluation #4: Was pt. sent in by a medical professional or institution (AICHA James, TIRE SERVICER, urgent care, hospital, or correction...) When possible be specific @ -no Did you speak to anyone other than the patient for history (EMS, parent, family, police, friend...)? What history was obtained from this source @ -no Did you review nursing and triage notes (agree or disagree)? Why? @ -agree Are old charts reviewed (outside hosp., previous admission, EMS record, old EKG, old radiological studies, urgent care reports/EKG's, correction records)? Report findings @ -yes Differential Diagnosis (chest pain, altered mental status, abdominal pain women, abdominal pain men, vaginal bleeding, weakness, fever, dyspnea, syncope, headache, dizziness, GI bleed, back pain, seizure, CVA, palpatations, mental health, musculoskeletal)? @ -prior EKG interpreted by me (3pts min.). @ -yes X-rays interpreted by me (1pt min.). @ -yes negative for acute disease CT interpreted by me (1pt min.). @ -no U/S interpreted by me (1pt. min.). @ -no What testing was considered but not performed or refused? (CT, X-rays, U/S, labs)? Why? @ -none What meds were considered but not given or refused? Why? @ -none Did you discuss the management of the patient with other professionals (professionals i.e. AICHA James, TIRE SERVICER, lab, RT, psych nurse, social work administrator, biology faculty member, teacher, fisheries officer, keycase assembler)? Give summary @ -no Was smoking cessation discussed for >3mins.? @ -no Was critical care preformed (if so, how long)? @ -no Were there social determinants of health that impacted care today? How? (Homelessness, low income, unemployed, alcoholism, drug addiction, transportation, low edu. Level, literacy, decrease access to med. care, group home, rehab)? @ -none Was there de-escalation of care discussed even if they declined (Discuss DNR or withdrawal of care, Hospice)? DNR status @ -no What co-morbidities impacted this encounter? (DM, HTN, Smoking, COPD, CAD, Cancer, CVA, ARF, Chemo, Hep., AIDS, mental health diagnosis, sleep apnea, morbid obesity)? @ -none Was patient admitted / discharged? Hospital course, mention meds given and route, prescriptions, significant lab abnormalities, going to OR and other pertinent info. @ - Undiagnosed new problem with uncertain prognosis? @ -no Drug Therapy requiring intensive monitoring for toxicity (Heparin, Nitro, Insulin, Cardizem)? @ -no Were any procedures done? @ -no Diagnosis/symptom? @ - Acute, or Chronic, or Acute on Chronic? @ -Acute Uncomplicated (without systemic symptoms) or Complicated (systemic symptoms)? @ -Complicated Side effects of treatment? @ -no Exacerbation, Progression, or Severe Exacerbation? @ -exacerbation Poses a threat to life or bodily function? How? (Chest pain, [place], [place], pneumonia, PE, COPD, DKA, ARF, appy, cholecystitis, CVA, Diverticulitis, Homicidal, Suicidal, threat to staff... and all critical care pts) @ -yes Reevaluation #5: Differential Dyspnea: Coronary syndrome, arrhythmia, tamponade, asthma, COPD, pulmonary embolism, pneumonia, pneumothorax, pulmonary effusion, anaphylaxis, diabetic ketoacidosis, flailed chest, pulmonary contusion, diaphragmatic rupture, anemia, neuromuscular, this is not meant to be an all-inclusive list. Differential Chest Pain: Stable Angina, Unstable Angina, STEMI, NSTEMI Aortic Dissection, Pneumothorax, Musculoskeletal, Esophageal Spasm GERD, Cholecystitis, Pancreatitis, Zoster, this is not meant to be an all-inclusive list. Differential Headache: Migraine, tension, cluster, carbon monoxide, central venous thrombosis, pension karma temporal arteritis, acute closure glaucoma, intercranial hemorrhage, mastoiditis, sinusitis, head injury, this is not meant to be an all-inclusive list. - Consultations Consultation #1: Spoke with Dr. Arce agrees to admit this patient Chest Pain MDM - MDM 73 male with worsening exertional dyspnea shortness of breath persistent and increasing. Patient will be admitted for cardiac observation, patient also hav ing headaches but normal CT scan s, headache symptoms improved with Tylenol Disposition Clinical Impression: Exertional dyspnea, Unstable angina pectoris, Chest pain, Weakness, Congestive heart failure (CHF), Acute kidney injury Disposition: ADMITTED IP TO THIS HOSP Condition: Fair Is patient prescribed a controlled substance at d/c from ED?: No Referrals: Nas Dennis DO [Primary Care Provider] - 1-2 days Time of Disposition: 16:00
[2024-05-28] MEDS: SODIUM CHLORIDE 0.9% 1,000 ML IV STA (14:48)
[2024-05-28] MEDS: ACETAMINOPHEN TAB 500 MG TAB PO STA (14:49)
[2024-05-28 15:10] LABS: Anisocytosis Slight; Basophils # (A) 0.1 k/uL (0-0.2); Basophils % (A) 1 %; Eosinophils # (A) 0.5 k/uL (0-0.7); Eosinophils % (A) 4 %; HGB 10.3 gm/dL (13.0-17.5); Lymphocytes # (A) 0.5 k/uL (1.0-4.8); Lymphocytes % (A) 4 %; MCH 30.6 pg (25.0-35.0); MCHC 32.2 g/dL (31.0-37.0); MCV 95.1 fL (80.0-100.0); Mean Platelet Volume 7.8; Monocytes # (A) 0.6 k/uL (0-1.0); Monocytes % (A) 6 %; Neutrophils # (A) 9.1 k/uL (1.3-7.7); Neutrophils % (A) 84 %; Platelet Count 374 k/uL (150-450); RBC 3.36 m/uL (4.30-5.90); RDW 16.7 % (11.5-15.5)
[2024-05-28 15:22] LABS: ALT 16 U/L (4-49); AST 25 U/L (17-59); African American GFR (CKD) 27 (>60 ml/min/1.73 sqM); Albumin 3.9 g/dL (3.5-5.0); Alkaline Phosphatase 116 U/L (38-126); Anion Gap 14 mmol/L; Blood Urea Nitrogen 50 mg/dL (9-20); Calcium 9.6 mg/dL (8.4-10.2); Carbon Dioxide 20 mmol/L (22-30); Chloride 102 mmol/L (98-107); Glucose 176 mg/dL (74-99); Lipase 19 U/L (23-300); Non-African American GFR(CKD) 23 (>60 ml/min/1.73 sqM); Potassium 4.8 mmol/L (3.5-5.1); Sodium 136 mmol/L (137-145); Total Bilirubin 0.7 mg/dL (0.2-1.3); Total Protein 7.3 g/dL (6.3-8.2)
[2024-05-28 15:28] LABS: NT-Pro-B-Type Natriuretic Pept 1370 pg/mL
[2024-05-28 15:46] LABS: Influenza A Not Detected (Not Detectd); Influenza B Not Detected (Not Detectd); RSV Not Detected (Not Detectd)
--- NOTE | 2024-05-28 16:01 | XR ---
Chest, 2 view. HISTORY: Chest pain COMPARISON: 04/25/2024 TECHNIQUE: PA and lateral views the chest are obtained. FINDINGS: There has been interval development of small bilateral pleural effusions. There is suggestion of mild pulmonary vascular congestion. There is mild cardiomegaly. The findings suggest the possibility of m ild CHF. There is no airspace consolidation. There is no pneumothorax. The osseous structures are intact. IMPRESSION: Findings suggest the possibility of mild CHF and clinical correlation is recommended.. [facility], , 05/28/2024 3:59 PM
[2024-05-28 16:11] LABS: Partial Thromboplastin Time 25.3 sec (22.0-30.0); Prothrombin Time 11.1 sec (10.0-12.5)
[2024-05-28] MEDS: FUROSEMIDE 10 MG/ML 4 ML VIAL IV SCH (16:19)
[2024-05-28] MEDS: SODIUM CHLORIDE 0.9% 1,000 ML IV SCH (16:21)
--- NOTE | 2024-05-28 17:19 | CT ---
EXAMINATION TYPE: CT brain wo con DATE OF EXAM: 05/28/2024 4:52 PM COMPARISON: None. CLINICAL INDICATION: Male, 73 years old with history of RAI, headache TECHNIQUE: CT of the brain is performed utilizing 3 mm thick sections through the posterior fossa and 3 mm thick sections through the remaining calvarium. Study is performed within 24 hours of arrival to the hospital. Contrast used: mL of , (none if empty) CT DLP: 1189.4 mGycm, Automated exposure control for dose reduction was used. FINDINGS: No abnormal hyperdensity is present to suggest an acute intracranial hemorrhage. No mass lesion is evident. No acute infarcts are evident. Periventricular white matter hypodensity is present, likely on the bas is of chronic white matter ischemic changes. Ventricles and sulci are mildly prominent for the patient age. Paranasal sinuses and mastoid air cells within the [id number] are clear. IMPRESSION: 1. No acute intracranial process. Follow up MRI can be performed as clinically indicated. 2. Chronic appearing periventricular white matter ischemic changes with some age related atrophy [facility], Workstation: [facility], 05/28/2024 5:16 PM
[2024-05-28] MEDS ORDERED: ACETAMINOPHEN TAB 325 MG TAB PO PRN (22:07)
--- NOTE | 2024-05-28 22:42 | P.HPIM ---
History of Present Illness H&P Date: 05/28/24 Chief Complaint: Short of breath 73-year-old male with a past medical history of hypertension, hyperlipidemia, type 2 diabetes, mood disorder, and CAD , ostomy for 25 years, July 2023 stent to the LAD and second diagonal branch by Dr. Bales. April 26, [address] Bales: Following a non-ST relation WI: Patent stent to mid LAD. Late stent thrombosis of the second diagonal branch of the LAD. Severe disease involving the OM1 appears unchanged. Attempted balloon angioplasty performed to the second of diagonal branch with suboptimal results. Dose of Imdur was increased and Ranexa was added. Patient presents with 2 symptoms of shortness of breath. Headaches. States he been having headaches for 3 months on a daily basis for over 6 months. Feels like a pounding in front of the back of the head. Does not interrupt his eating. No change in vision. No nausea vomiting. Also has been having increasing shortness of breath with activity. For example doing about 7 stairs. No cough. No fever no chills. He did see Dr. 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 No change in medications. He also has a right heel wound being followed by Dr. Jernigan at the wound center. Normally uses 1 pillow. Slight edema in the right leg. Review of systems: GEN.: Tired EYES: None HEENT: Headache NECK: None RESPIRATORY: As above CARDIOVASCULAR: As above GASTROINTESTINAL: Colonoscopy back GENITOURINARY: None MUSCULOSKELETAL: Joint pain LYMPHATICS: None HEMATOLOGICAL: None PSYCHIATRY: None NEUROLOGICAL: Sometimes uses a cane Social history: Non-smoking. No alcohol. On examination: VITAL SIGNS: 97.1, 70, 20, 134 x 54, 95% on 2 L GENERAL APPEARANCE: Lying in bed, a bit tired HEENT: Normal external appearance of nose and ear. Oral cavity normal EYES: Pupils equal. Conjunctiva normal. NECK: JVD not raised. Mass not palpable. RESPIRATORY: Respiratory effort increased. Lungs diminished breath sounds. CARDIOVASCULAR: First and second sounds normal. Minimal edema in the right leg ABDOMEN: Soft. Liver and spleen not palpable. No tenderness. No right upper quadrant tenderness. No mass palpable. Colostomy bag with liquid stool PSYCHIATRY: Alert and oriented x3. Mood and affect a bit anxious Extremity: Has a wound on the right heel. More details in the chart INVESTIGATIONS, reviewed in the clinical context: May 28, 2024: White count 11 hemoglobin 10.3 platelets 374 sodium 136 potassium 4.8 BUN 50 creatinine 2.59 Troponin I less than 0.012 x 3 Influenza type A, type B, RSV, COVID-19: Not detected EKG tracing personally reviewed by me-normal sinus rhythm. Nonspecific ST T wave changes inferolateral leads. Chest x-ray film personally reviewed by me-pulm edema CT scan brain without contrast: Chronic appearing periventricular white matter ischemic changes. Previous labs: Creatinine 1.6 on April 28/2024 Assessment and plan: -Acute congestive heart failure exacerbation IV Lasix 60 mg every 12. Fluid restriction 1500 cc a day. -Chronic ostomy-functioning well -Chronic cephalgia. Patient stated headaches for greater than 6 months. Practically every day. Does not interfere with his eating. No exacerbating relieving factors. CT scan of the brain shows some chronic changes Consult neurology -Right heel wound. Follow-up with Dr. Jernigan at the wound center. Consult wound care team -Chronic parastomal hernia #Hypertension: Amlodipine. Toprol-XL. Hydralazine -Acute kidney injury. Possibly cardiorenal. Consult nephrology -CKD likely nephrosclerosis, diabetic nephropathy Creatinine was 1.6 on April 28, 2024. -CAD with stent Toprol-XL -Anemia in the setting of chronic kidney disease. -Primary osteoarthritis Pain medication as needed -History of prostate cancer with radiation and chemo in 2020. #Diabetes mellitus: Tresiba. Follow Accu-Cheks #Hyperlipidemia: Lipitor #GERD: Protonix -Full code Care was discussed with the patient. Questions answered. Past Medical History Past Medical History: Cancer, Chest Pain / Angina, Diabetes Mellitus, Eye Disorder, GERD/Reflux, Hyperlipidemia, Hypertension, Osteoarthritis (OA), Prostate Disorder, Renal Disease Additional Past Medical History / Comment(s): HX OF ULCERATIVE COLITIS, ileostomy PARASTOMAL HERNIA, PROSTATE CA WITH RADIATION AND CHEMO IN 2020, LOW KIDNEY FUNCTION,Covid Dec 2022, Influenza A Jun 2023, eye condition, unsure of name. History of Any Multi-Drug Resistant Organisms: MRSA Date of last positivie culture/infection: 05/24/24 MDRO Source:: rt heel, scalp Past Surgical History: Appendectomy, Bowel Resection, Heart Catheterization, Heart Catheterization With Stent Additional Past Surgical History / Comment(s): COLECTOMY, RECTUM REMOVED, ELLIOTT CA TARACTS removed, ILEOSTOMY, HERNIA SURGERY. Past Anesthesia/Blood Transfusion Reactions: No Reported Reaction Additional Past Anesthesia/Blood Transfusion Reaction / Comment(s): no problems with prior blood transfusions. Date of Last Stent Placement:: 08/01/2023 Past Psychological History: Depression Smoking Status: Never smoker Past Alcohol Use History: None Reported Past Drug Use History: None Reported - Past Family History Mother Family Medical History: Cancer Additional Family Medical History / Comment(s): LUNG CANCER. Father Family Medical History: Cancer Additional Family Medical History / Comment(s): MELANOMA/BRAIN CANCER. Medications and Allergies Home Medications Medication Instructions Recorded Confirmed Type Aspirin EC [Ecotrin Low Dose] 81 mg PO DAILY 11/08/18 05/28/24 History Ergocalciferol (Vitamin D2) 1,250 mcg PO Q14D 06/25/20 05/28/24 History [Drisdol (50,000 Iu)] allopurinoL [Zyloprim] 200 mg PO DAILY 10/21/21 05/28/24 History Dapagliflozin Propanediol [Farxiga] 10 mg PO DAILY 11/05/21 05/28/24 History Gabapentin [Neurontin] 100 mg PO HS 06/30/23 05/28/24 History Torsemide [Demadex] 30 mg PO Q2D 06/30/23 05/28/24 History Atorvastatin [Lipitor] 40 mg PO DAILY 07/25/23 05/28/24 History Insulin Aspart [NovoLOG Flexpen] 30 - 40 units SQ AC-TID 08/16/23 05/28/24 History Torsemide [Demadex] 40 mg PO Q2D 08/16/23 05/28/24 History Escitalopram [Lexapro] 10 mg PO DAILY 02/10/24 05/28/24 History Pantoprazole [Protonix] 40 mg PO DAILY 02/10/24 05/28/24 History calcitrioL 0.25 mcg PO MO 02/10/24 05/28/24 History Metoprolol Succinate (ER) [Toprol 25 mg PO DAILY #30 tab 02/19/24 05/28/24 Rx XL] Butalb/APAP/Caff 50-325-40Mg 1 tab PO Q4H PRN 04/25/24 05/28/24 History [Fioricet 50-325-40] Ferrous Sulfate [Iron (65 MG 325 mg PO DAILY 04/25/24 05/28/24 History Elemental)] Insulin Glargine,Hum.rec.anlog 50 units SQ HS 04/25/24 05/28/24 History [Nava Jose] Triamcinolone 0.5% Cream [Kenalog 1 applic TOPICAL BID PRN 04/25/24 05/28/24 History 0.5% Cream] Acetaminophen Tab [Tylenol] 650 mg PO Q6HR PRN tab 04/28/24 05/28/24 Rx Clopidogrel [Plavix] 75 mg PO DAILY 30 Days #30 tablet 04/28/24 05/28/24 Rx Isosorbide Mononitrate ER [Imdur] 60 mg PO DAILY #30 tab 04/28/24 05/28/24 Rx Ranolazine [Ranexa] 500 mg PO Q12HR #60 tab 04/28/24 05/28/24 Rx amLODIPine [Norvasc] 10 mg PO DAILY #30 tab 04/28/24 05/28/24 Rx hydrALAZINE HCL [Apresoline] 25 mg PO TID 05/28/24 05/28/24 History Allergies Allergy/AdvReac Type Severity Reaction Status Date / Time ibuprofen [From Motrin] Allergy Anaphylaxis Verified 05/28/24 17:16 Physical Exam Vitals: Vital Signs Temp Pulse Pulse Resp BP BP Pulse Ox 05/28/24 20:20 97.1 F L 70 20 134/54 95 05/28/24 19:09 98 F 75 18 133/57 92 L 05/28/24 16:17 71 18 131/53 97 05/28/24 14:10 97.6 F 78 26 H 144/56 92 L Intake and Output 05/28/24 05/28/24 05/28/24 06:59 14:59 22:59 Other: Weight 115.666 kg 113.398 kg Results CBC & Chem 7: 05/28/24 14:56 05/28/24 14:56 Labs: Abnormal Lab Results - Last 24 Hours (Table) 05/28/24 05/28/24 Range/Units 14:56 14:56 WBC 11.0 H (3.8-10.6) k/uL RBC 3.36 L (4.30-5.90) m/uL Hgb 10.3 L (13.0-17.5) gm/dL Hct 32.0 L (39.0-53.0) % RDW 16.7 H (11.5-15.5) % Neutrophils # 9.1 H (1.3-7.7) k/uL Lymphocytes # 0.5 L (1.0-4.8) k/uL Sodium 136 L (137-145) mmol/L Carbon Dioxide 20 L (22-30) mmol/L BUN 50 H (9-20) mg/dL Creatinine 2.59 H (0.66-1.25) mg/dL Glucose 176 H (74-99) mg/dL Lipase 19 L (23-300) U/L Thrombosis Risk Factor Assmnt - Choose All That Apply Any of the Below Risk Factors Present?: Yes Each Factor Represents 1 point: Abnormal pulmonary function (COPD), Obesity (BMI >25) Each Risk Factor Represents 2 Points: Age 61-74 years Thrombosis Risk Factor Assessment Total Risk Factor Score: 4 Thrombosis Risk Factor Assessment Level: Moderate Risk
[2024-05-28] MEDS: RANOLAZINE 500 MG TAB.ER.12H PO SCH (23:00)
[2024-05-28] MEDS: ENOXAPARIN 40 MG/0.4 ML SYRINGE SQ SCH (23:00)
[2024-05-28] MEDS: hydrALAZINE HCL 25 MG TAB PO SCH (23:00)
[2024-05-28] MEDS: INSULIN DETEMIR (LEVEMIR) 100 UNIT/ML SYR SQ SCH (23:01)
[2024-05-28] MEDS: INSULIN ASPART (NovoLOG) 100 UNIT/ML VIAL SQ SCH (23:01)
[2024-05-28 23:09] LABS: Glucose,Whole Blood 127 mg/dL (70-110)
[2024-05-29] MEDS: BUTALB/APAP/CAFF 50-325-40MG TAB PO PRN (04:10)
[2024-05-29 05:29] LABS: African American GFR (CKD) 29 (>60 ml/min/1.73 sqM); Anion Gap 16 mmol/L; Blood Urea Nitrogen 47 mg/dL (9-20); Calcium 9.6 mg/dL (8.4-10.2); Carbon Dioxide 19 mmol/L (22-30); Chloride 103 mmol/L (98-107); Glucose 103 mg/dL (74-99); Non-African American GFR(CKD) 25 (>60 ml/min/1.73 sqM); Potassium 4.3 mmol/L (3.5-5.1); Sodium 138 mmol/L (137-145)
[2024-05-29 07:13] LABS: Glucose,Whole Blood 85 mg/dL (70-110)
[2024-05-29] MEDS ORDERED: TORSEMIDE 20 MG TAB PO SCH (09:00)
[2024-05-29] MEDS ORDERED: HEPARIN SODIUM 1,000 UN/ML (10ML VL) IV PRN (09:09)
--- NOTE | 2024-05-29 09:20 | NM ---
EXAMINATION TYPE: NM pul vent and perfuse DATE OF EXAM: 05/29/2024 CLINICAL INDICATION: Male, 73 years old with history of Possible chronic PE; COMPARISON: Radiograph 05/28/2024 and prior VQ scan 06/25/2020 TECHNIQUE: Utilizing inhalation of 35.9 mCi Tc 99m DTPA aerosol and intravenous injection of 5.16 mC i of Tc 99m MAA, ventilation and perfusion images are acquired post injection in multiple projections . FINDINGS: Normal radiotracer distribution is noted in the lungs. There is no evidence of mismatched defects. Th ere is some clumping of tracer in the central airways which can be seen with COPD. IMPRESSION: Very low probability for pulmonary embolus. Inhaled tracer in the central airways may be seen with em physema. [facility], Workstation: LUIS FELIPE, 05/29/2024 9:18 AM
[2024-05-29] MEDS: PANTOPRAZOLE 40 MG TABLET PO SCH (09:26)
[2024-05-29] MEDS: ATORVASTATIN 40 MG TAB PO SCH (09:26)
[2024-05-29] MEDS: ASPIRIN 81 MG PO SCH (09:26)
[2024-05-29] MEDS: CLOPIDOGREL 75 MG TAB PO SCH (09:27)
[2024-05-29] MEDS: amLODIPine 10 MG TAB PO SCH (09:27)
[2024-05-29] MEDS: FUROSEMIDE 10 MG/ML 4 ML VIAL IV SCH (09:27)
[2024-05-29] MEDS: METOPROLOL SUCCINATE (ER) 25 MG TAB.ER.24H PO SCH (09:27)
[2024-05-29] MEDS: FERROUS SULFATE 325 MG TAB PO SCH (09:27)
[2024-05-29] MEDS: allopurinoL 100 MG TAB PO SCH (09:27)
[2024-05-29] MEDS: DAPAGLIFLOZIN PROPANEDIOL 10 MG TABLET PO SCH (09:28)
[2024-05-29] MEDS: ISOSORBIDE MONONITRATE ER 60 MG TAB.ER.24H PO SCH (09:28)
--- NOTE | 2024-05-29 09:54 | P.NPCON ---
History of Present Illness - Reason for Consult acute renal failure, chronic renal failure - History of Present Illness Consultation: Acute kidney injury on chronic kidney disease History of present illness: Patient is a 73-year-old male seen in new consultation for acute kidney injury on chronic kidney disease. Patient has chronic kidney disease stage IIIb with baseline creatinine 1.7-1.8 secondary to nephrosclerosis and diabetic kidney disease. Creatinine was 2.59 on admission and is 2.47 today. Patient came to the hospital due to worsening shortness of breath mostly with exertion as well as headaches. Patient is currently on 2 L nasal cannula. He is maintained on IV Lasix 40 mg twice daily. He has been taking torsemide 30 mg daily at home. Patient does have longstanding history of diabetes. Also history of coronary disease with 2 stents. He completed VQ scan this morning which was low probability of PE. Patient states he recently had foot infection for which she started Bactrim about 5 days ago. He was notified yesterday that Bactrim was resistant. He is currently not receiving antibiotics. He is being followed by wound care. Currently denies chest pain or shortness of breath. Denies any significant weight gain in the last couple of weeks. No vomiting or diarrhea. Oral intake is good. Vital signs stable. On nasal cannula. Regular rate and rhythm. Abdomen obese, nontender. No audible rhonchi or wheezes. 1+ edema. Chronic changes noted. Past Medical History Past Medical History: Cancer, Chest Pain / Angina, Diabetes Mellitus, Eye Disorder, GERD/Reflux, Hyperlipidemia, Hypertension, Osteoarthritis (OA), Prostate Disorder, Renal Disease Additional Past Medical History / Comment(s): HX OF ULCERATIVE COLITIS, ileostomy PARASTOMAL HERNIA, PROSTATE CA WITH RADIATION AND CHEMO IN 2020, LOW KIDNEY FUNCTION,Covid Dec 2022, Influenza A Jun 2023, eye condition, unsure of name. History of Any Multi-Drug Resistant Organisms: MRSA Date of last positivie culture/infection: 05/24/24 MDRO Source:: rt heel, scalp Past Surgical History: Appendectomy, Bowel Resection, Heart Catheterization, Heart Catheterization With Stent Additional Past Surgical History / Comment(s): COLECTOMY, RECTUM REMOVED, ELLIOTT CATARACTS removed, ILEOSTOMY, HERNIA SURGERY. Past Anesthesia/Blood Transfusion Reactions: No Reported Reaction Additional Past Anesthesia/Blood Transfusion Reaction / Comment(s): no problems with prior blood transfusions. Date of Last Stent Placement:: 08/01/2023 Past Psychological History: Depression Smoking Status: Never smoker Past Alcohol Use History: None Reported Past Drug Use History: None Reported - Past Family History Mother Family Medical History: Cancer Additional Family Medical History / Comment(s): LUNG CANCER. Father Family Medical History: Cancer Additional Family Medical History / Comment(s): MELANOMA/BRAIN CANCER. Medications and Allergies Home Medications Medication Instructions Recorded Confirmed Type RX: Aspirin EC [Ecotrin Low Dose] 81 mg PO DAILY 11/08/18 05/28/24 History RX: Ergocalciferol (Vitamin D2) 1,250 mcg PO Q14D 06/25/20 05/28/24 History [Drisdol (50,000 Iu)] RX: allopurinoL [Zyloprim] 200 mg PO DAILY 10/21/21 05/28/24 History RX: Dapagliflozin Propanediol 10 mg PO DAILY 11/05/21 05/28/24 History [Farxiga] RX: Gabapentin [Neurontin] 100 mg PO HS 06/30/23 05/28/24 History RX: Torsemide [Demadex] 30 mg PO Q2D 06/30/23 05/28/24 History RX: Atorvastatin [Lipitor] 40 mg PO DAILY 07/25/23 05/28/24 History RX: Insulin Aspart [NovoLOG 30 - 40 units SQ AC-TID 08/16/23 05/28/24 History Flexpen] RX: Torsemide [Demadex] 40 mg PO Q2D 08/16/23 05/28/24 History RX: Escitalopram [Lexapro] 10 mg PO DAILY 02/10/24 05/28/24 History RX: Pantoprazole [Protonix] 40 mg PO DAILY 02/10/24 05/28/24 History RX: calcitrioL 0.25 mcg PO MO 02/10/24 05/28/24 History RX: Metoprolol Succinate (ER) 25 mg PO DAILY #30 tab 02/19/24 05/28/24 Rx [Toprol XL] RX: Butalb/APAP/Caff 50-325-40Mg 1 tab PO Q4H PRN 04/25/24 05/28/24 History [Fioricet 50-325-40] RX: Ferrous Sulfate [Iron (65 MG 325 mg PO DAILY 04/25/24 05/28/24 History Elemental)] RX: Insulin Glargine,Hum.rec.anlog 50 units SQ HS 04/25/24 05/28/24 History [Nava Jose] RX: Triamcinolone 0.5% Cream 1 applic TOPICAL BID PRN 04/25/24 05/28/24 History [Kenalog 0.5% Cream] Clopidogrel [Plavix] 75 mg PO DAILY 30 Days #30 tablet 04/28/24 05/28/24 Rx RX: Acetaminophen Tab [Tylenol] 650 mg PO Q6HR PRN tab 04/28/24 05/28/24 Rx RX: Isosorbide Mononitrate ER 60 mg PO DAILY #30 tab 04/28/24 05/28/24 Rx [Imdur] RX: Ranolazine [Ranexa] 500 mg PO Q12HR #60 tab 04/28/24 05/28/24 Rx RX: amLODIPine [Norvasc] 10 mg PO DAILY #30 tab 04/28/24 05/28/24 Rx RX: hydrALAZINE HCL [Apresoline] 25 mg PO TID 05/28/24 05/28/24 History Allergies Allergy/AdvReac Type Severity Reaction Status Date / Time ibuprofen [From Motrin] Allergy Anaphylaxis Verified 05/28/24 17:16 Physical Exam Vitals: Vital Signs Temp Pulse Pulse Resp BP BP Pulse Ox 05/29/24 07:44 98.8 F 83 16 161/69 99 05/29/24 01:35 97.9 F 85 18 153/54 92 L 05/28/24 23:06 97.9 F 79 19 160/74 93 L 05/28/24 22:41 72 16 141/61 92 L 05/28/24 20:20 97.1 F L 70 20 134/54 95 05/28/24 19:09 98 F 75 18 133/57 92 L 05/28/24 16:17 71 18 131/53 97 05/28/24 14:10 97.6 F 78 26 H 144/56 92 L Intake and Output 05/28/24 05/29/24 05/29/24 22:59 06:59 14:59 Output Total 100 Balance -100 Output: Urine 100 Other: Voiding Method Toilet # Voids 2 Weight 113.398 kg 130 kg Results - Lab Results Most recent lab results Calcium 9.6 mg/dL (8.4-10.2) 05/29/24 04:20 Magnesium 2.0 mg/dL (1.6-2.3) 05/28/24 14:56 05/28/24 14:56 05/29/24 04:20 Assessment and Plan Plan: Assessment: 1. Acute kidney injury secondary to ATN secondary to diuresis and also Bactrim which will impair creatinine secretion. Creatinine 2.5 on admission and is 2.49 today. 2. Acute hypoxic respiratory failure. 3. Volume overload. Improved with diuresis. 4. Foot infection. Wound care following. Defer antibiotics to primary team. 5. Diabetes mellitus. 6. Coronary disease with cardiac stents. 7. Hypertension with chronic kidney disease. 8. 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 9. Metabolic acidosis secondary to acute kidney injury. 10. Anemia of chronic kidney disease. Rule out iron deficiency. Plan: Change IV Lasix to oral torsemide 40 mg once daily. Maintain SGLT2 inhibitor. Follow-up echocardiogram. Maintain low-salt diet and fluid restriction. Check iron studies. Add oral bicarb. Avoid nephrotoxins. Continue to monitor renal function and urine output. Increased dose of hydralazine. Hold for systolic blood pressure less than 120. Thank you for the consultation. I will continue to follow the patient with you during his hospital stay.
--- NOTE | 2024-05-29 10:16 | P.CRDCN ---
History of Present Illness History of present illness: HISTORY OF PRESENT ILLNESS: This is a 73-year-old male with a past medical history significant for coronary artery disease with previous stenting, congestive heart failure, hypertension, hyperlipidemia, diabetes, chronic kidney disease. Patient follows in the office with Dr. Bales. We have been asked to see the patient in consultation for heart failure. Patient examined at the bedside. Patient presented to the hospital with a chief complaint of shortness of breath. Patient also reports he has been having a severe headache for the past few days which was the main complaint that brought him to the hospital. At the time of examination he denies any chest pain or pressure. He does report shortness of breath. Patient underwent VQ scan this morning that revealed low probability of PE. Patient was initially started on IV Lasix. He was seen by nephrology this morning and transition to Demadex. DIAGNOSTICS: - EKG reveals sinus mechanism with no signs of acute ischemia. - Chest xray findings suggest the possibility of mild CHF and clinical correlation is recommended. - Laboratory data: WBC 11.0. Hemoglobin 10.3. Platelet count 374. Sodium 138. Potassium 4.3. BUN 47. Creatinine 2.47. Troponin negative x 3. proBNP 1370. - Current home cardiac medications include Demadex 40 mg every 2 days and 30 mg every 2 days, hydralazine 25 mg 3 times daily, amlodipine 10 mg daily, Ranexa 500 mg twice a day, metoprolol succinate 25 mg daily, Imdur 60 mg daily, Farxiga 10 mg daily, Plavix 75 mg daily, Lipitor 40 mg daily, aspirin 81 mg daily. - Most recent echocardiogram obtained in January 2024 revealed ejection fraction 55 to 60%, moderate pulm hypertension, trace to mild MR, mild TR - Cardiac catheterization history: April 26, 2024 revealing patent stent in the mid LAD. Late stent thrombosis of the second diagonal branch of the LAD, severe disease involving OM1 appeared unchanged compared to before, attempted balloon angioplasty was performed of second diagonal branch with suboptimal results REVIEW OF SYSTEMS: At the time of my exam: CONSTITUTIONAL: Denies fever or chills. HEENT: Denies blurred vision, vision changes, or eye pain. Denies hemoptysis CARDIOVASCULAR: Denies chest pain. Denies orthopnea. Denies PND. Denies palpitations RESPIRATORY: Denies shortness of breath. GASTROINTESTINAL: Denies abdominal pain. Denies nausea or vomiting. HEMATOLOGIC: Denies bleeding disorders. GENITOURINARY: Denies any blood in urine. SKIN: Denies pruitis. Denies rash. PHYSICAL EXAM: VITAL SIGNS: Reviewed. GENERAL: Well-developed in no acute distress. HEENT: Head is normocephalic. Pupils are equal, round. Sclerae anicteric. Mucous membranes of the mouth are moist. Neck supple. No JVD or thyromegaly LUNGS: Respirations even and unlabored. Lungs essentially clear to auscultation bilaterally. HEART: Regular rate and rhythm. S1 and S2 heard. ABDOMEN: Soft. Nondistended. Nontender. EXTREMITIES: Normal range of motion. No clubbing or cyanosis. Peripheral pulses intact. No lower extremity edema NEUROLOGIC: Awake and alert. Oriented x 3. ASSESSMENT: Shortness of breath Chronic heart failure with preserved EF, 55 to 60% Coronary artery disease with previous stenting of the LAD and second diagonal branch, with recent attempted balloon angioplasty of second diagonal branch with suboptimal results, March 2024 Known severe disease involving OM1 Chronic kidney disease Hypertension Hyperlipidemia Diabetes Morbid obesity: BMI 46.3 PLAN: Obtain 2D echo to assess cardiac structure and function Resume home cardiac medications Nephrology evaluated patient this morning and was transitioned to oral diuretics Neurology has been consulted for evaluation of headaches Further recommendations pending patient course Nurse practitioner note has been reviewed by physician. Signing provider agrees with the documented findings, assessment, and plan of care documented by [employer] OPERATOR as a scribe. Past Medical History Past Medical History: Cancer, Chest Pain / Angina, Diabetes Mellitus, Eye Disorder, GERD/Reflux, Hyperlipidemia, Hypertension, Osteoarthritis (OA), Prostate Disorder, Renal Disease Additional Past Medical History / Comment(s): HX OF ULCERATIVE COLITIS, ileostomy PARASTOMAL HERNIA, PROSTATE CA WITH RADIATION AND CHEMO IN 2020, LOW KIDNEY FUNCTION,Covid Dec 2022, Influenza A Jun 2023, eye condition, unsure of name. History of Any Multi-Drug Resistant Organisms: MRSA Date of last positivie culture/infection: 05/24/24 MDRO Source:: rt heel, scalp Past Surgical History: Appendectomy, Bowel Resection, Heart Catheterization, Heart Catheterization With Stent Additional Past Surgical History / Comment(s): COLECTOMY, RECTUM REMOVED, ELLIOTT CATARACTS removed, ILEOSTOMY, HERNIA SURGERY. Past Anesthesia/Blood Transfusion Reactions: No Reported Reaction Additional Past Anesthesia/Blood Transfusion Reaction / Comment(s): no problems with prior blood transfusions. Date of Last Stent Placement:: 08/01/2023 Past Psychological History: Depression Smoking Status: Never smoker Past Alcohol Use History: None Reported Past Drug Use History: None Reported - Past Family History Mother Family Medical History: Cancer Additional Family Medical History / Comment(s): LUNG CANCER. Father Family Medical History: Cancer Additional Family Medical History / Comment(s): MELANOMA/BRAIN CANCER. Medications and Allergies Home Medications Medication Instructions Recorded Confirmed Type Aspirin EC [Ecotrin Low Dose] 81 mg PO DAILY 11/08/18 05/28/24 History Ergocalciferol (Vitamin D2) 1,250 mcg PO Q14D 06/25/20 05/28/24 History [Drisdol (50,000 Iu)] allopurinoL [Zyloprim] 200 mg PO DAILY 10/21/21 05/28/24 History Dapagliflozin Propanediol [Farxiga] 10 mg PO DAILY 11/05/21 05/28/24 History Gabapentin [Neurontin] 100 mg PO HS 06/30/23 05/28/24 History Torsemide [Demadex] 30 mg PO Q2D 06/30/23 05/28/24 History Atorvastatin [Lipitor] 40 mg PO DAILY 07/25/23 05/28/24 History Insulin Aspart [NovoLOG Flexpen] 30 - 40 units SQ AC-TID 08/16/23 05/28/24 History Torsemide [Demadex] 40 mg PO Q2D 08/16/23 05/28/24 History Escitalopram [Lexapro] 10 mg PO DAILY 02/10/24 05/28/24 History Pantoprazole [Protonix] 40 mg PO DAILY 02/10/24 05/28/24 History calcitrioL 0.25 mcg PO MO 02/10/24 05/28/24 History Metoprolol Succinate (ER) [Toprol 25 mg PO DAILY #30 tab 02/19/24 05/28/24 Rx XL] Butalb/APAP/Caff 50-325-40Mg 1 tab PO Q4H PRN 04/25/24 05/28/24 History [Fioricet 50-325-40] Ferrous Sulfate [Iron (65 MG 325 mg PO DAILY 04/25/24 05/28/24 History Elemental)] Insulin Glargine,Hum.rec.anlog 50 units SQ HS 04/25/24 05/28/24 History [Toujeo Solostar] Triamcinolone 0.5% Cream [Kenalog 1 applic TOPICAL BID PRN 04/25/24 05/28/24 History 0.5% Cream] Acetaminophen Tab [Tylenol] 650 mg PO Q6HR PRN tab 04/28/24 05/28/24 Rx Clopidogrel [Plavix] 75 mg PO DAILY 30 Days #30 tablet 04/28/24 05/28/24 Rx Isosorbide Mononitrate ER [Imdur] 60 mg PO DAILY #30 tab 04/28/24 05/28/24 Rx Ranolazine [Ranexa] 500 mg PO Q12HR #60 tab 04/28/24 05/28/24 Rx amLODIPine [Norvasc] 10 mg PO DAILY #30 tab 04/28/24 05/28/24 Rx hydrALAZINE HCL [Apresoline] 25 mg PO TID 05/28/24 05/28/24 History Allergies Allergy/AdvReac Type Severity Reaction Status Date / Time ibuprofen [From Motrin] Allergy Anaphylaxis Verified 05/28/24 17:16 Physical Exam Vitals: Vital Signs Temp Pulse Pulse Resp BP BP Pulse Ox 05/29/24 07:44 98.8 F 83 16 161/69 99 05/29/24 01:35 97.9 F 85 18 153/54 92 L 05/28/24 23:06 97.9 F 79 19 160/74 93 L 05/28/24 22:41 72 16 141/61 92 L 05/28/24 20:20 97.1 F L 70 20 134/54 95 05/28/24 19:09 98 F 75 18 133/57 92 L 05/28/24 16:17 71 18 131/53 97 05/28/24 14:10 97.6 F 78 26 H 144/56 92 L Intake and Output 05/28/24 05/29/24 05/29/24 22:59 06:59 14:59 Output Total 100 Balance -100 Output: Urine 100 Other: Voiding Method Toilet # Voids 2 Weight 113.398 kg 130 kg Results 05/28/24 14:56 05/29/24 04:20 Cardiac Enzymes 05/28/24 05/28/24 05/28/24 Range/Units 14:56 14:56 18:03 AST 25 (17-59) U/L Troponin I <0.012 <0.012 (0.000-0.034) ng/mL 05/28/24 Range/Units 21:11 AST (17-59) U/L Troponin I <0.012 (0.000-0.034) ng/mL Coagulation 05/28/24 Range/Units 15:50 PT 11.1 (10.0-12.5) sec APTT 25.3 (22.0-30.0) sec CBC 05/28/24 Range/Units 14:56 WBC 11.0 H (3.8-10.6) k/uL RBC 3.36 L (4.30-5.90) m/uL Hgb 10.3 L (13.0-17.5) gm/dL Hct 32.0 L (39.0-53.0) % Plt Count 374 (150-450) k/uL Comprehensive Metabolic Panel 05/28/24 05/29/24 Range/Units 14:56 04:20 Sodium 136 L 138 (137-145) mmol/L Potassium 4.8 4.3 (3.5-5.1) mmol/L Chloride 102 103 (98-107) mmol/L Carbon Dioxide 20 L 19 L (22-30) mmol/L BUN 50 H 47 H (9-20) mg/dL Creatinine 2.59 H 2.47 H (0.66-1.25) mg/dL Glucose 176 H 103 H (74-99) mg/dL Calcium 9.6 9.6 (8.4-10.2) mg/dL AST 25 (17-59) U/L ALT 16 (4-49) U/L Alkaline Phosphatase 116 (38-126) U/L Total Protein 7.3 (6.3-8.2) g/dL Albumin 3.9 (3.5-5.0) g/dL Current Medications Generic Name Dose Route Start Last Admin Trade Name Freq PRN Reason Stop Dose Admin Acetaminophen 650 mg 05/28/24 22:07 Acetaminophen Tab 325 Mg Tab PO Q6HR PRN Fever and/ or Pain Acetaminophen/Butalbital/Caffeine 1 each 05/28/24 22:07 05/29/24 04:10 Butalb/Apap/Caff 50-325-40mg Tab PO 1 each Q4H PRN Administration Migraine Headache Allopurinol 200 mg 05/29/24 09:00 05/29/24 09:27 Allopurinol 100 Mg Tab PO 200 mg DAILY JOSÉ Administration Amlodipine Besylate 10 mg 05/29/24 09:00 05/29/24 09:27 Amlodipine 10 Mg Tab PO 10 mg DAILY JOSÉ Administration Aspirin 81 mg 05/29/24 09:00 05/29/24 09:26 Aspirin 81 Mg PO 81 mg DAILY JOSÉ Administration Atorvastatin Calcium 40 mg 05/29/24 09:00 05/29/24 09:26 Atorvastatin 40 Mg Tab PO 40 mg DAILY [facility] Administration Calcitriol 0.25 mcg 06/03/24 09:00 Calcitriol 0.25 Mcg Cap PO MO [facility] Clopidogrel Bisulfate 75 mg 05/29/24 09:00 05/29/24 09:27 Clopidogrel 75 Mg Tab PO 75 mg DAILY JOSÉ Administration Dapagliflozin 10 mg 05/29/24 09:00 05/29/24 09:28 Dapagliflozin Propanediol 10 Mg Tablet PO 10 mg DAILY [facility] Administration Ergocalciferol 1,250 mcg 05/31/24 09:00 Ergocalciferol 1,250 Mcg (50,000 Iu) Capsule PO Q14D [facility] Escitalopram Oxalate 10 mg 05/29/24 09:00 Escitalopram 10 Mg Tab PO DAILY [facility] Ferrous Sulfate 325 mg 05/29/24 09:00 05/29/24 09:27 Ferrous Sulfate 325 Mg Tab PO 325 mg DAILY [facility] Administration Gabapentin 100 mg 05/29/24 21:00 Gabapentin 100 Mg Cap PO HS [facility] Heparin Sodium (Porcine) 5,000 unit 05/29/24 16:00 Heparin Sodium,Porcine 5,000 Unit/Ml 1 Ml Vial SQ Q8HR [facility] Hydralazine HCl 50 mg 05/29/24 16:00 Hydralazine Hcl 50 Mg Tab PO TID [facility] Sodium Chloride 1,000 mls @ 20 mls/hr 05/28/24 16:15 05/28/24 16:21 Saline 0.9% IV 20 mls/hr .Q24H JOSÉ Administration Insulin Aspart 30 unit 05/28/24 22:07 05/28/24 23:01 Insulin Aspart (Novolog) 100 Unit/Ml Vial SQ Not Given ACHS [facility] Insulin Detemir 50 unit 05/28/24 22:30 05/28/24 23:01 Insulin Detemir (Levemir) 100 Unit/Ml Syr SQ 50 unit HS JOSÉ Administration Isosorbide Mononitrate 60 mg 05/29/24 09:00 05/29/24 09:28 Isosorbide Mononitrate Er 60 Mg Tab.Er.24h PO 60 mg DAILY JOSÉ Administration Metoprolol Succinate 25 mg 05/29/24 09:00 05/29/24 09:27 Metoprolol Succinate (Er) 25 Mg Tab.Er.24h PO 25 mg DAILY JOSÉ Administration Pantoprazole Sodium 40 mg 05/29/24 09:00 05/29/24 09:26 Pantoprazole 40 Mg Tablet PO 40 mg DAILY JOSÉ Administration Ranolazine 500 mg 05/28/24 22:30 05/28/24 23:00 Ranolazine 500 Mg Tab.Er.12h PO 500 mg Q12HR JOSÉ Administration Sodium Bicarbonate 650 mg 05/29/24 10:00 Sodium Bicarbonate Tab 650 Mg Tab PO BID [facility] Torsemide 40 mg 05/30/24 09:00 Torsemide 20 Mg Tab PO DAILY [facility] Triamcinolone Acetonide 1 applic 05/28/24 22:30 Triamcinolone Acet 0.5% Cream 15 Gm Tube TOPICAL BID PRN rash/dry skin Protocol Intake and Output 05/28/24 05/29/24 05/29/24 22:59 06:59 14:59 Output Total 100 Balance -100 Output: Urine 100 Other: Voiding Method Toilet # Voids 2 Weight 113.398 kg 130 kg 05/28/24 14:56 05/29/24 04:20
--- NOTE | 2024-05-29 10:33 | P.CONS ---
History of Present Illness - Reason for Consult Consult date: 05/29/24 wound care - History of Present Illness This is a 73-year-old patient known to the wound care center with history of diabetes. Patient follows with Dr. Jernigan he was seen last Wednesday 05/24 at that time Bactrim was ordered and a deep tissue culture was obtained. Patient's was called by Dr. Avelar's office to inform him that the antibiotic was not appropriate and to start a new antibiotic however patient had increased shortne ss of breath and swelling to the right lower leg and came to the emergency room for evaluation. Patient has been utilizing absorptive silver to the site. Ulceration is a stage III pressure ulcer. The date acquired was: 02/19/2024. The wound has been in treatment 6 weeks. The wound is currently classified as a Grade 2 wound with etiology of Diabetic Wound/Ulcer of the Lower Extremity and is located on the Right,Posterior Calcaneus. The wound measures 1.9cm length x 1.4cm width x 0.2cm depth; 2.089cm^2 area and 0.418cm^3 volume. There is Fat Layer (Subcutaneous Tissue) exposed. There is no tunneling or undermining noted. There is a medium amount of serosanguineous drainage noted. The wound margin is distinct with the outline attached to the wound base. There is medium (34-66%) pink granulation within the wound bed. There is a medium (34-66%) amount of necrotic tissue within the wound bed including Adherent Slough. The periwound skin appearance exhibited: Callus, Scarring, Dry/Scaly, Hemosiderin Staining. The periwound skin appearance did not exhibit: Crepitus, Excoriation, Induration , Rash, Maceration, Atrophie [place], Cyanosis, Ecchymosis, Mottled, Pallor, Rubor, Erythema. Periwound temperature was noted as No Abnormality. Review Of Systems: Constitutional: No fever, no chills, no night sweats. No weight change. No weakness, fatigue or lethargy. No daytime sleepiness. Integumentary:reports wounds, no lesions. No rash or pruritus. No unusual bruising. No change in hair or nails. Physical exam: General Appearance: Alert, cooperative, no distress, appears stated age. Skin: See HPI all other Skin color, texture, tugor normal, no rashes or lesions. Neurologic: Alert oriented x3 Assessment: 1. Stage III pressure ulcer right calcaneus 2. Diabetic foot ulcer Plan: 1. Apply Santyl, saline moist gauze, dry gauze, rolled gauze and secure with paper tape. Change daily. Patient return to the wound care center on June 07 at 845. Continue to offload avoid pressure to the heel. Thank you for the consultation any questions please contact the wound care [facility] note has been reviewed and discussed with Dr. Chapa and the impression and plan of care has been directed as dictated. Past Medical History Past Medical History: Cancer, Chest Pain / Angina, Diabetes Mellitus, Eye Disorder, GERD/Reflux, Hyperlipidemia, Hypertension, Osteoarthritis (OA), Prostate Disorder, Renal Disease Additional Past Medical History / Comment(s): HX OF ULCERATIVE COLITIS, ileostomy PARASTOMAL HERNIA, PROSTATE CA WITH RADIATION AND CHEMO IN 2020, LOW KIDNEY FUNCTION,Covid Dec 2022, Influenza A Jun 2023, eye condition, unsure of name. History of Any Multi-Drug Resistant Organisms: MRSA Year Discovered:: 05/24/24 MDRO Source:: rt heel, scalp Past Surgical History: Appendectomy, Bowel Resection, Heart Catheterization, Heart Catheterization With Stent Additional Past Surgical History / Comment(s): COLECTOMY, RECTUM REMOVED, ELLIOTT CATARACTS removed, ILEOSTOMY, HERNIA SURGERY. Past Anesthesia/Blood Transfusion Reactions: No Reported Reaction Additional Past Anesthesia/Blood Transfusion Reaction / Comm: no problems with prior blood transfusions. Date of Last Stent Placement:: 08/01/2023 Past Psychological History: Depression Smoking Status: Never smoker Past Alcohol Use History: None Reported Past Drug Use History: None Reported - Past Family History Mother Family Medical History: Cancer Additional Family Medical History / Comment(s): LUNG CANCER. Father Family Medical History: Cancer Additional Family Medical History / Comment(s): MELANOMA/BRAIN CANCER. Medications and Allergies Home Medications Medication Instructions Recorded Confirmed Type Aspirin EC [Ecotrin Low Dose] 81 mg PO DAILY 11/08/18 05/28/24 History Ergocalciferol (Vitamin D2) 1,250 mcg PO Q14D 06/25/20 05/28/24 History [Drisdol (50,000 Iu)] allopurinoL [Zyloprim] 200 mg PO DAILY 10/21/21 05/28/24 History Dapagliflozin Propanediol [Farxiga] 10 mg PO DAILY 11/05/21 05/28/24 History Gabapentin [Neurontin] 100 mg PO HS 06/30/23 05/28/24 History Torsemide [Demadex] 30 mg PO Q2D 06/30/23 05/28/24 History Atorvastatin [Lipitor] 40 mg PO DAILY 07/25/23 05/28/24 History Insulin Aspart [NovoLOG Flexpen] 30 - 40 units SQ AC-TID 08/16/23 05/28/24 History Torsemide [Demadex] 40 mg PO Q2D 08/16/23 05/28/24 History Escitalopram [Lexapro] 10 mg PO DAILY 02/10/24 05/28/24 History Pantoprazole [Protonix] 40 mg PO DAILY 02/10/24 05/28/24 History calcitrioL 0.25 mcg PO MO 02/10/24 05/28/24 History Metoprolol Succinate (ER) [Toprol 25 mg PO DAILY #30 tab 02/19/24 05/28/24 Rx XL] Butalb/APAP/Caff 50-325-40Mg 1 tab PO Q4H PRN 04/25/24 05/28/24 History [Fioricet 50-325-40] Ferrous Sulfate [Iron (65 MG 325 mg PO DAILY 04/25/24 05/28/24 History Elemental)] Insulin Glargine,Hum.rec.anlog 50 units SQ HS 04/25/24 05/28/24 History [Touramesh Solostar] Triamcinolone 0.5% Cream [Kenalog 1 applic TOPICAL BID PRN 04/25/24 05/28/24 History 0.5% Cream] Acetaminophen Tab [Tylenol] 650 mg PO Q6HR PRN tab 04/28/24 05/28/24 Rx Clopidogrel [Plavix] 75 mg PO DAILY 30 Days #30 tablet 04/28/24 05/28/24 Rx Isosorbide Mononitrate ER [Imdur] 60 mg PO DAILY #30 tab 04/28/24 05/28/24 Rx Ranolazine [Ranexa] 500 mg PO Q12HR #60 tab 04/28/24 05/28/24 Rx amLODIPine [Norvasc] 10 mg PO DAILY #30 tab 04/28/24 05/28/24 Rx hydrALAZINE HCL [Apresoline] 25 mg PO TID 05/28/24 05/28/24 History Allergies Allergy/AdvReac Type Severity Reaction Status Date / Time ibuprofen [From Motrin] Allergy Anaphylaxis Verified 05/28/24 17:16 Physical Exam Vitals: Vital Signs Temp Pulse Pulse Resp BP BP Pulse Ox 05/29/24 07:44 98.8 F 83 16 161/69 99 05/29/24 01:35 97.9 F 85 18 153/54 92 L 05/28/24 23:06 97.9 F 79 19 160/74 93 L 05/28/24 22:41 72 16 141/61 92 L 05/28/24 20:20 97.1 F L 70 20 134/54 95 05/28/24 19:09 98 F 75 18 133/57 92 L 05/28/24 16:17 71 18 131/53 97 05/28/24 14:10 97.6 F 78 26 H 144/56 92 L Intake and Output 05/28/24 05/29/24 05/29/24 22:59 06:59 14:59 Output Total 100 Balance -100 Output: Urine 100 Other: Voiding Method Toilet # Voids 2 Weight 113.398 kg 130 kg Results CBC & Chem 7: 05/28/24 14:56 05/29/24 04:20 Labs: Abnormal Lab Results - Last 24 Hours (Table) 05/28/24 05/28/24 05/28/24 Range/Units 14:56 14:56 23:00 WBC 11.0 H (3.8-10.6) k/uL RBC 3.36 L (4.30-5.90) m/uL Hgb 10.3 L (13.0-17.5) gm/dL Hct 32.0 L (39.0-53.0) % RDW 16.7 H (11.5-15.5) % Neutrophils # 9.1 H (1.3-7.7) k/uL Lymphocytes # 0.5 L (1.0-4.8) k/uL Sodium 136 L (137-145) mmol/L Carbon Dioxide 20 L (22-30) mmol/L BUN 50 H (9-20) mg/dL Creatinine 2.59 H (0.66-1.25) mg/dL Glucose 176 H (74-99) mg/dL POC Glucose (mg/dL) 127 H (70-110) mg/dL Lipase 19 L (23-300) U/L 05/29/24 Range/Units 04:20 WBC (3.8-10.6) k/uL RBC (4.30-5.90) m/uL Hgb (13.0-17.5) gm/dL Hct (39.0-53.0) % RDW (11.5-15.5) % Neutrophils # (1.3-7.7) k/uL Lymphocytes # (1.0-4.8) k/uL Sodium (137-145) mmol/L Carbon Dioxide 19 L (22-30) mmol/L BUN 47 H (9-20) mg/dL Creatinine 2.47 H (0.66-1.25) mg/dL Glucose 103 H (74-99) mg/dL POC Glucose (mg/dL) (70-110) mg/dL Lipase (23-300) U/L Assessment and Plan (1) Stage III pressure ulcer of right heel Current Visit: Yes Status: Acute Code(s): L89.613 - PRESSURE ULCER OF RIGHT HEEL, STAGE 3 SNOMED Code(s): 21549261756172 (2) Type 2 diabetes mellitus with foot ulcer Current Visit: Yes Status: Acute Code(s): E11.621 - TYPE 2 DIABETES MELLITUS WITH FOOT ULCER; L97.509 - NON-PRESSURE CHRONIC ULCER OTH PRT UNSP FOOT W UNSP SEVERITY SNOMED Code(s): 8463218470864
[2024-05-29] MEDS: IPRATROPIUM-ALBUTEROL 3 ML NEB INHALATION SCH (11:14)
[2024-05-29] MEDS: SODIUM BICARBONATE TAB 650 MG TAB PO SCH (11:23)
[2024-05-29] MEDS: ESCITALOPRAM 10 MG TAB PO SCH (11:26)
[2024-05-29 12:15] LABS: Glucose,Whole Blood 130 mg/dL (70-110)
--- NOTE | 2024-05-29 13:37 | CA ---
Transthoracic Echo Report Name: Mike Vidal Age: 73 Gender: M : 1950 Exam Date: 05/29/2024 10:05 Exam Location: [facility] Ht (in): 66 Wt (lb): 255 Ordering Physician: Devin Davis DO Attending/Referring Phys: [id number], Susan Bus Person Procedure CPT: Indications: Heart failure Cardiac Hx: HTN, CAD, 2023 stent to LAD Technical Quality: Technically difficult study Contrast 1: Definity Total Dose (mL): 2 Contrast 2: Total Dose (mL): MEASUREMENTS (Male / Female) Normal Values 2D ECHO LV Diastolic Diameter PLAX 5.8 cm 4.2 - 5.9 / 3.9 - 5.3 cm LV Systolic Diameter PLAX 3.9 cm IVS Diastolic Thickness 0.9 cm 0.6 - 1.0 / 0.6 - 0.9 cm LVPW Diastolic Thickness 0.9 cm 0.6 - 1.0 / 0.6 - 0.9 cm LV Relative Wall Thickness 0.3 RV Internal Dim ED PLAX 2.9 cm LVOT Diameter 1.8 cm Aortic Root Diameter 3.2 cm LA Systolic Diameter LX 4.1 cm 3.0 - 4.0 / 2.7 - 3.8 cm LV Diastolic Volume MOD BP 142.5 cm??? 67 - 155 / 56 - 104 cm??? LV Systolic Volume MOD BP 44.5 cm??? 22 - 58 / 19 - 49 cm??? LV Ejection Fraction MOD BP 68.8 % >= 55 % LV Cardiac Index MOD BP 3337.3 cm???/min???m??? LV Diastolic Volume MOD 4C 143.2 cm??? LV Systolic Volume MOD 4C 45.7 cm??? LV Ejection Fraction MOD 4C 68.1 % LV Cardiac Index MOD 4C 3319.6 cm???/min???m??? LV Diastolic Length 4C 10.4 cm LV Systolic Length 4C 8.4 cm LV Diastolic Volume MOD 2C 132.5 cm??? LV Systolic Volume MOD 2C 39.6 cm??? LV Ejection Fraction MOD 2C 70.1 % LV Cardiac Index MOD 2C 3164.0 cm???/min???m??? LV Diastolic Length 2C 9.7 cm LV Systolic Length 2C 7.6 cm DOPPLER MR Peak Velocity 475.2 cm/s MR Peak Gradient 90.3 mmHg Mitral E Point Velocity 95.4 cm/s Mitral A Point Velocity 96.3 cm/s Mitral E to A Ratio 1.0 MV Deceleration Time 190.2 ms MV E' Velocity 7.1 cm/s Mitral E to MV E' Ratio 13.5 TR Peak Velocity 124.1 cm/s TR Peak Gradient 6.2 mmHg FINDINGS Left Ventricle Left ventricular ejection fraction is estimated at 55-60 %. No obvious regional wall motion abnormalities. Left ventricular cavity size at the upper limits of normal. Right Ventricle Normal right ventricular size and function. Unable to estimate the right ventricular systolic pressure. Right Atrium Normal right atrial size. Left Atrium Mildly increased left atrial diameter. Mitral Valve Structurally normal mitral valve. No mitral stenosis. Trace mitral regurgitation. Aortic Valve Trileaflet aortic valve. Aortic valve sclerosis. No aortic stenosis. No aortic regurgitation. Tricuspid Valve Structurally normal tricuspid valve. Trace tricuspid regurgitation. Pulmonic Valve Structurally normal pulmonic valve. No pulmonic regurgitation. Pericardium No pericardial or pleural effusion. Aorta Normal size aortic root and proximal ascending aorta. CONCLUSIONS Technically difficult study. LV size and systolic function is normal. Right- sided pressures are not well quantified. Minimal mitral and tricuspid regurgitation. No pericardial effusion Previewed by: Dr. Mickie Castro MD (Electronically Signed) Final Date: 29 May 2024 13:36
[2024-05-29] MEDS: COLLAGENASE 250 UNIT/GM OINTMENT 30 GM TUBE TOPICAL SCH (15:37)
[2024-05-29] MEDS: LIDOCAINE 1% INJ 10MG/ML (20 ML MDV) SQ ONE (15:38)
[2024-05-29] MEDS: SILVER NITRATE APPLICATOR 1 EACH STICK..EA. TOPICAL ONE (15:39)
--- NOTE | 2024-05-29 16:32 | P.GSCN ---
History of Present Illness History of present illness: 73-year-old gentleman patient came with shortness of breath patient has history of diabetes hypertension coronary artery disease postcoronary artery stent I was consulted for right heel wound patient is under care of Dr. Hilario at wound clinic On examination patient was seen in his room neck is supple no bruit appreciated Chest is clear. Second sound present Abdomen soft nontender patient has a colostomy functioning on femorals are 1+ bilateral patient has a wound on the right heel measurement is 2 x 2.3 x 0. Plan is plan is debridement and the deep culture Past Medical History Past Medical History: Cancer, Chest Pain / Angina, Diabetes Mellitus, Eye Disorder, GERD/Reflux, Hyperlipidemia, Hypertension, Osteoarthritis (OA), Prostate Disorder, Renal Disease Additional Past Medical History / Comment(s): HX OF ULCERATIVE COLITIS, ileostomy PARASTOMAL HERNIA, PROSTATE CA WITH RADIATION AND CHEMO IN 2020, LOW KIDNEY FUNCTION,Covid Dec 2022, Influenza A Jun 2023, eye condition, unsure of name. History of Any Multi-Drug Resistant Organisms: MRSA Year Discovered:: 05/24/24 MDRO Source:: rt heel, scalp Past Surgical History: Appendectomy, Bowel Resection, Heart Catheterization, Heart Catheterization With Stent Additional Past Surgical History / Comment(s): COLECTOMY, RECTUM REMOVED, ELLIOTT CATARACTS removed, ILEOSTOMY, HERNIA SURGERY. Past Anesthesia/Blood Transfusion Reactions: No Reported Reaction Additional Past Anesthesia/Blood Transfusion Reaction / Comm: no problems with prior blood transfusions. Date of Last Stent Placement:: 08/01/2023 Past Psychological History: Depression Smoking Status: Never smoker Past Alcohol Use History: None Reported Past Drug Use History: None Reported - Past Family History Mother Family Medical History: Cancer Additional Family Medical History / Comment(s): LUNG CANCER. Father Family Medical History: Cancer Additional Family Medical History / Comment(s): MELANOMA/BRAIN CANCER. Medications and Allergies Home Medications Medication Instructions Recorded Confirmed Type Aspirin EC [Ecotrin Low Dose] 81 mg PO DAILY 11/08/18 05/28/24 History Ergocalciferol (Vitamin D2) 1,250 mcg PO Q14D 06/25/20 05/28/24 History [Drisdol (50,000 Iu)] allopurinoL [Zyloprim] 200 mg PO DAILY 10/21/21 05/28/24 History Dapagliflozin Propanediol [Farxiga] 10 mg PO DAILY 11/05/21 05/28/24 History Gabapentin [Neurontin] 100 mg PO HS 06/30/23 05/28/24 History Torsemide [Demadex] 30 mg PO Q2D 06/30/23 05/28/24 History Atorvastatin [Lipitor] 40 mg PO DAILY 07/25/23 05/28/24 History Insulin Aspart [NovoLOG Flexpen] 30 - 40 units SQ AC-TID 08/16/23 05/28/24 History Torsemide [Demadex] 40 mg PO Q2D 08/16/23 05/28/24 History Escitalopram [Lexapro] 10 mg PO DAILY 02/10/24 05/28/24 History Pantoprazole [Protonix] 40 mg PO DAILY 02/10/24 05/28/24 History calcitrioL 0.25 mcg PO MO 02/10/24 05/28/24 History Metoprolol Succinate (ER) [Toprol 25 mg PO DAILY #30 tab 02/19/24 05/28/24 Rx XL] Butalb/APAP/Caff 50-325-40Mg 1 tab PO Q4H PRN 04/25/24 05/28/24 History [Fioricet 50-325-40] Ferrous Sulfate [Iron (65 MG 325 mg PO DAILY 04/25/24 05/28/24 History Elemental)] Insulin Glargine,Hum.rec.anlog 50 units SQ HS 04/25/24 05/28/24 History [Topiedad Solostnatalie] Triamcinolone 0.5% Cream [Kenalog 1 applic TOPICAL BID PRN 04/25/24 05/28/24 History 0.5% Cream] Acetaminophen Tab [Tylenol] 650 mg PO Q6HR PRN tab 04/28/24 05/28/24 Rx Clopidogrel [Plavix] 75 mg PO DAILY 30 Days #30 tablet 04/28/24 05/28/24 Rx Isosorbide Mononitrate ER [Imdur] 60 mg PO DAILY #30 tab 04/28/24 05/28/24 Rx Ranolazine [Ranexa] 500 mg PO Q12HR #60 tab 04/28/24 05/28/24 Rx amLODIPine [Norvasc] 10 mg PO DAILY #30 tab 04/28/24 05/28/24 Rx hydrALAZINE HCL [Apresoline] 25 mg PO TID 05/28/24 05/28/24 History Allergies Allergy/AdvReac Type Severity Reaction Status Date / Time ibuprofen [From Motrin] Allergy Anaphylaxis Verified 05/28/24 17:16 Surgical - Exam Vital Signs Temp Pulse Resp BP Pulse Ox 97.6 F 78 26 H 144/56 92 L 05/28/24 14:10 05/28/24 14:10 05/28/24 14:10 05/28/24 14:10 05/28/24 14:10 Results - Labs 05/28/24 14:56 05/29/24 04:20 Abnormal Lab Results - Last 24 Hours (Table) 05/28/24 05/29/24 05/29/24 Range/Units 23:00 04:20 12:14 Carbon Dioxide 19 L (22-30) mmol/L BUN 47 H (9-20) mg/dL Creatinine 2.47 H (0.66-1.25) mg/dL Glucose 103 H (74-99) mg/dL POC Glucose (mg/dL) 127 H 130 H (70-110) mg/dL Diabetes panel 05/29/24 Range/Units 04:20 Sodium 138 (137-145) mmol/L Potassium 4.3 (3.5-5.1) mmol/L Chloride 103 (98-107) mmol/L Carbon Dioxide 19 L (22-30) mmol/L BUN 47 H (9-20) mg/dL Creatinine 2.47 H (0.66-1.25) mg/dL Glucose 103 H (74-99) mg/dL Calcium 9.6 (8.4-10.2) mg/dL Calcium panel 05/29/24 Range/Units 04:20 Calcium 9.6 (8.4-10.2) mg/dL Pituitary panel 05/29/24 Range/Units 04:20 Sodium 138 (137-145) mmol/L Potassium 4.3 (3.5-5.1) mmol/L Chloride 103 (98-107) mmol/L Carbon Dioxide 19 L (22-30) mmol/L BUN 47 H (9-20) mg/dL Creatinine 2.47 H (0.66-1.25) mg/dL Glucose 103 H (74-99) mg/dL Calcium 9.6 (8.4-10.2) mg/dL Adrenal panel 05/29/24 Range/Units 04:20 Sodium 138 (137-145) mmol/L Potassium 4.3 (3.5-5.1) mmol/L Chloride 103 (98-107) mmol/L Carbon Dioxide 19 L (22-30) mmol/L BUN 47 H (9-20) mg/dL Creatinine 2.47 H (0.66-1.25) mg/dL Glucose 103 H (74-99) mg/dL Calcium 9.6 (8.4-10.2) mg/dL
--- NOTE | 2024-05-29 16:35 | P.PCN ---
Description of Procedure: Preop diagnosis wound right heel measurement is 2 x 2.4 x 0.5 cm Postop postdebridement measurement is 2 x 2.3 x 2.6 Right foot was prepped and draped in Prestel manner 1% lidocaine infiltrated using knife we did the debridement we excised all the necrotic tissue sharp knife all the necrotic zarina was sent for deep culture there was some bleeding noted which was controlled by nitro stick then wound was irrigated with saline hemostasis well-controlled and Santyl cream applied to the wound dressing applied patient tarted the procedure well was sent for deep culture dressings were changed daily basis with using Santyl cream
[2024-05-29 17:07] LABS: Glucose,Whole Blood 125 mg/dL (70-110)
--- NOTE | 2024-05-29 17:17 | P.CNNES ---
History of Present Illness Consult date: 05/29/24 Requesting physician: aJmaal Shea Reason for Consult: headache History of Present Illness: This is a 73-year-old gentleman who presented emergency department because of different issues of chest pain, headache, difficulty breathing. Neurology is consulted for the headache. It seems that the patient has been having headache for more than a year and he feels its over bilateral frontal as well as occipital it is almost on a daily basis it is always 7/10 its throbbing. He denies any photophobia any phonophobia denies any nausea any vomiting. He feels the headache can last through the entire day. He feels [id number] Tylenol minimally gets the pain. He feels the headache is alleviated with just rest. Denies any focal weakness speech difficulty or difficulty swallowing. Denies any visual disturbance associate with the visit. He has significant cardiac issues and has congestive heart failure kidney issues. He has coronary artery disease and he had a stent. Patient is on multiple medication for different things. Unsure if he was started on something recently around the time of onset of the headache. He is on Fioricet, Tylenol, gabapentin, Plavix, aspirin, Lipitor. Some of the workup during this hospital visit consisted of: Pulse ox as low as [address] of the head is reported as no acute intracranial process. I personally reviewed the CT and agree with the report. Review of Systems As per HPI. Past Medical History Past Medical History: Cancer, Chest Pain / Angina, Diabetes Mellitus, Eye Disorder, GERD/Reflux, Hyperlipidemia, Hypertension, Osteoarthritis (OA), Prostate Disorder, Renal Disease Additional Past Medical History / Comment(s): HX OF ULCERATIVE COLITIS, ileostomy PARASTOMAL HERNIA, PROSTATE CA WITH RADIATION AND CHEMO IN 2020, LOW KIDNEY FUNCTION,Covid Dec 2022, Influenza A Jun 2023, eye condition, unsure of name. History of Any Multi-Drug Resistant Organisms: MRSA Date of last positivie culture/infection: 05/24/24 MDRO Source:: rt heel, scalp Past Surgical History: Appendectomy, Bowel Resection, Heart Catheterization, Heart Catheterization With Stent Additional Past Surgical History / Comment(s): COLECTOMY, RECTUM REMOVED, ELLIOTT CATARACTS removed, ILEOSTOMY, HERNIA SURGERY. Past Anesthesia/Blood Transfusion Reactions: No Reported Reaction Additional Past Anesthesia/Blood Transfusion Reaction / Comment(s): no problems with prior blood transfusions. Date of Last Stent Placement:: 08/01/2023 Past Psychological History: Depression Smoking Status: Never smoker Past Alcohol Use History: None Reported Past Drug Use History: None Reported - Past Family History Mother Family Medical History: Cancer Additional Family Medical History / Comment(s): LUNG CANCER. Father Family Medical History: Cancer Additional Family Medical History / Comment(s): MELANOMA/BRAIN CANCER. Medications and Allergies Home Medications Medication Instructions Recorded Confirmed Type Aspirin EC [Ecotrin Low Dose] 81 mg PO DAILY 11/08/18 05/28/24 History Ergocalciferol (Vitamin D2) 1,250 mcg PO Q14D 06/25/20 05/28/24 History [Drisdol (50,000 Iu)] allopurinoL [Zyloprim] 200 mg PO DAILY 10/21/21 05/28/24 History Dapagliflozin Propanediol [Farxiga] 10 mg PO DAILY 11/05/21 05/28/24 History Gabapentin [Neurontin] 100 mg PO HS 06/30/23 05/28/24 History Torsemide [Demadex] 30 mg PO Q2D 06/30/23 05/28/24 History Atorvastatin [Lipitor] 40 mg PO DAILY 07/25/23 05/28/24 History Insulin Aspart [NovoLOG Flexpen] 30 - 40 units SQ AC-TID 08/16/23 05/28/24 History Torsemide [Demadex] 40 mg PO Q2D 08/16/23 05/28/24 History Escitalopram [Lexapro] 10 mg PO DAILY 02/10/24 05/28/24 History Pantoprazole [Protonix] 40 mg PO DAILY 02/10/24 05/28/24 History calcitrioL 0.25 mcg PO MO 02/10/24 05/28/24 History Metoprolol Succinate (ER) [Toprol 25 mg PO DAILY #30 tab 02/19/24 05/28/24 Rx XL] Butalb/APAP/Caff 50-325-40Mg 1 tab PO Q4H PRN 04/25/24 05/28/24 History [Fioricet 50-325-40] Ferrous Sulfate [Iron (65 MG 325 mg PO DAILY 04/25/24 05/28/24 History Elemental)] Insulin Glargine,Hum.rec.anlog 50 units SQ HS 04/25/24 05/28/24 History [Nava Jose] Triamcinolone 0.5% Cream [Kenalog 1 applic TOPICAL BID PRN 04/25/24 05/28/24 History 0.5% Cream] Acetaminophen Tab [Tylenol] 650 mg PO Q6HR PRN tab 04/28/24 05/28/24 Rx Clopidogrel [Plavix] 75 mg PO DAILY 30 Days #30 tablet 04/28/24 05/28/24 Rx Isosorbide Mononitrate ER [Imdur] 60 mg PO DAILY #30 tab 04/28/24 05/28/24 Rx Ranolazine [Ranexa] 500 mg PO Q12HR #60 tab 04/28/24 05/28/24 Rx amLODIPine [Norvasc] 10 mg PO DAILY #30 tab 04/28/24 05/28/24 Rx hydrALAZINE HCL [Apresoline] 25 mg PO TID 05/28/24 05/28/24 History Allergies Allergy/AdvReac Type Severity Reaction Status Date / Time ibuprofen [From Motrin] Allergy Anaphylaxis Verified 05/28/24 17:16 Physical Examination - Vital Signs Vital Signs: Vital Signs Temp Pulse Pulse Resp BP BP Pulse Ox 05/29/24 15:55 80 05/29/24 15:46 84 05/29/24 13:58 97.6 F 72 16 148/56 93 L 05/29/24 11:29 84 05/29/24 11:14 88 05/29/24 07:44 98.8 F 83 16 161/69 99 05/29/24 01:35 97.9 F 85 18 153/54 92 L 05/28/24 23:06 97.9 F 79 19 160/74 93 L 05/28/24 22:41 72 16 141/61 92 L 05/28/24 20:20 97.1 F L 70 20 134/54 95 05/28/24 19:09 98 F 75 18 133/57 92 L Intake and Output 05/29/24 05/29/24 05/29/24 06:59 14:59 22:59 Intake Total 370 Output Total 100 Balance -100 370 Intake: Oral 370 Output: Urine 100 Other: Voiding Method Toilet # Voids 2 Weight 130 kg General: Lying in bed and is in mild acute distress. Lung: Is wheezing even without auscultation. Neuro: Patient is awake alert oriented to self place and time. Following simple commands. No aphasia. The pupils are round 2 to 3 mm bilaterally and reactive to light. Visual bennett are full to confrontation. Extraocular moods intact no nystagmus. No facial weakness. No dysarthria The motor is left in all extremities above gravity equally. Sensation is normal to touch. Reflexes 2 positive. The plantars are mute bilaterally Results - Laboratory Findings CBC and BMP: 05/28/24 14:56 05/29/24 04:20 Abnormal Lab Findings: Abnormal Labs 05/28/24 05/28/24 05/28/24 14:56 14:56 23:00 WBC 11.0 H RBC 3.36 L Hgb 10.3 L Hct 32.0 L RDW 16.7 H Neutrophils # 9.1 H Lymphocytes # 0.5 L Sodium 136 L Carbon Dioxide 20 L BUN 50 H Creatinine 2.59 H Glucose 176 H POC Glucose (mg/dL) 127 H Lipase 19 L 05/29/24 05/29/24 04:20 12:14 WBC RBC Hgb Hct RDW Neutrophils # Lymphocytes # Sodium Carbon Dioxide 19 L BUN 47 H Creatinine 2.47 H Glucose 103 H POC Glucose (mg/dL) 130 H Lipase Assessment and Plan Assessment: This is a 73-year-old gentleman who presents hospital because of chest pain, shortness of breath and headache. It seems the patient has been having headache for more than 1 year. 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 CT of the head is unremarkable Acute chest pain Dyspnea Volume overload Foot infection Diabetes mellitus History of coronary artery status post stent Hypertension Plan: I ordered MRI of the brain and MRA of the head and if unable to be performed th is could be considered as an outpatient since this is more chronic. I recommend his medication to be adjusted by his primary and other specialist as an outpatient since I feel the patient is on polypharmacy Will defer the rest of the medical management to primary other specialist Upon discharge recommend the patient to follow-up with a neurologist as an outpatient Plan discussed with the patient and his was at bedside Thank you for the consultation Time with Patient: Greater than 30
[2024-05-29] MEDS: hydrALAZINE HCL 50 MG TAB PO SCH (17:34)
[2024-05-29] MEDS: HEPARIN SODIUM,PORCINE 5,000 UNIT/ML 1 ML VIAL SQ SCH (17:34)
[2024-05-29] MEDS: HEPARIN SODIUM 1,000 UN/ML (10ML VL) IV ONE (18:03)
[2024-05-29] MEDS: HEPARIN SOD,PORK IN 0.45% NACL 25,000 UNIT in 0.45% NACL 1 250ML.BAG IV SCH (18:05)
--- NOTE | 2024-05-29 19:08 | P.PN ---
Progress Note - Text Progress Note Date: 05/29/24 Chief Complaint: Short of breath 73-year-old male with a past medical history of hypertension, hyperlipidemia, type 2 diabetes, mood disorder, and CAD , ostomy for 25 years, July 2023 stent to the LAD and second diagonal branch by Dr. Bales. April 26, [address] Bales: Following a non-ST relation [place]: Patent stent to mid LAD. Late stent thrombosis of the second diagonal branch of the LAD. Severe disease involving the OM1 appears unchanged. Attempted balloon angioplasty performed to the second of diagonal branch with suboptimal results. Dose of Imdur was increased and Ranexa was added. Patient presents with 2 symptoms of shortness of breath. Headaches. States he been having headaches for 3 months on a daily basis for over 6 months. Feels like a pounding in front of the back of the head. Does not interrupt his eating. No change in vision. No nausea vomiting. Also has been having increasing shortness of breath with activity. For example doing about 7 stairs. No cough. No fever no chills. He did see Dr. Bales his weapons officer 3 weeks ago. No change in medications. He also has a right heel wound being followed by Dr. Jernigan at the wound center. Normally uses 1 pillow. Slight edema in the right leg. May 29: Spoke to the patient and . Some shortness of breath. May be a COPD component. DuoNeb added. Right heel wound is rather dry. Dr. Carpenter from vascular consulted. He carried out a deep debridement. No drainage. Hold off antibiotic. For chronic cephalgia neurology was consulted. Appears to be tension headache. He is rather stressed out. Mindfulness exercise was given to the patient and the . Seen by nephrology this morning. Transition to oral diuretics. Per cardiology no further intervention. Active Medications Acetaminophen (Acetaminophen Tab 325 Mg Tab) 650 mg PO Q6HR PRN PRN Reason: Fever and/ or Pain Acetaminophen/Butalbital/Caffeine (Butalb/Apap/Caff 50-325-40mg Tab) 1 each PO Q4H PRN PRN Reason: Migraine Headache Last Admin: 05/29/24 04:10 Dose: 1 each Albuterol/Ipratropium (Ipratropium-Albuterol 3 Ml Neb) 3 ml INHALATION RT-QID JOSÉ Last Admin: 05/29/24 15:45 Dose: 3 ml Allopurinol (Allopurinol 100 Mg Tab) 200 mg PO DAILY [facility] Last Admin: 05/29/24 09:27 Dose: 200 mg Amlodipine Besylate (Amlodipine 10 Mg Tab) 10 mg PO DAILY [facility] Last Admin: 05/29/24 09:27 Dose: 10 mg Aspirin (Aspirin 81 Mg) 81 mg PO DAILY [facility] Last Admin: 05/29/24 09:26 Dose: 81 mg Atorvastatin Calcium (Atorvastatin 40 Mg Tab) 40 mg PO DAILY [facility] Last Admin: 05/29/24 09:26 Dose: 40 mg Calcitriol (Calcitriol 0.25 Mcg Cap) 0.25 mcg PO MO [facility] Clopidogrel Bisulfate (Clopidogrel 75 Mg Tab) 75 mg PO DAILY [facility] Last Admin: 05/29/24 09:27 Dose: 75 mg Collagenase (Collagenase 250 Unit/Gm Ointment 30 Gm Tube) 1 applic TOPICAL DA BASSAM [facility]; Protocol Last Admin: 05/29/24 15:37 Dose: 1 applic Dapagliflozin (Dapagliflozin Propanediol 10 Mg Tablet) 10 mg PO DAILY [facility] Last Admin: 05/29/24 09:28 Dose: 10 mg Ergocalciferol (Ergocalciferol 1,250 Mcg (50,000 Iu) Capsule) 1,250 mcg PO Q14D [facility] Escitalopram Oxalate (Escitalopram 10 Mg Tab) 10 mg PO DAILY [facility] Last Admin: 05/29/24 11:26 Dose: 10 mg Ferrous Sulfate (Ferrous Sulfate 325 Mg Tab) 325 mg PO DAILY [facility] Last Admin: 05/29/24 09:27 Dose: 325 mg Gabapentin (Gabapentin 100 Mg Cap) 100 mg PO HS [facility] Heparin Sodium (Porcine) (Heparin Sodium,Porcine 5,000 Unit/Ml 1 Ml Vial) 5,000 unit SQ Q8HR [facility] Last Admin: 05/29/24 17:34 Dose: 5,000 unit Hydralazine HCl (Hydralazine Hcl 50 Mg Tab) 50 mg PO TID [facility] Last Admin: 05/29/24 17:34 Dose: 50 mg Sodium Chloride (Saline 0.9%) 1,000 mls @ 20 mls/hr IV .Q24H [facility] Last Admin: 05/29/24 17:34 Dose: Not Given Insulin Aspart (Insulin Aspart (Novolog) 100 Unit/Ml Vial) 30 unit SQ ACHS [facility] Last Admin: 05/29/24 17:34 Dose: Not Given Insulin Detemir (Insulin Detemir (Levemir) 100 Unit/Ml Syr) 50 unit SQ HS [facility] Last Admin: 05/28/24 23:01 Dose: 50 unit Isosorbide Mononitrate (Isosorbide Mononitrate Er 60 Mg Tab.Er.24h) 60 mg PO DAILY [facility] Last Admin: 05/29/24 09:28 Dose: 60 mg Metoprolol Succinate (Metoprolol Succinate (Er) 25 Mg Tab.Er.24h) 25 mg PO DAILY [facility] Last Admin: 05/29/24 09:27 Dose: 25 mg Pantoprazole Sodium (Pantoprazole 40 Mg Tablet) 40 mg PO DAILY [facility] Last Admin: 05/29/24 09:26 Dose: 40 mg Ranolazine (Ranolazine 500 Mg Tab.Er.12h) 500 mg PO Q12HR [facility] Last Admin: 05/29/24 11:25 Dose: 500 mg Sodium Bicarbonate (Sodium Bicarbonate Tab 650 Mg Tab) 650 mg PO BID [facility] Last Admin: 05/29/24 11:23 Dose: 650 mg Torsemide (Torsemide 20 Mg Tab) 40 mg PO DAILY [facility] Triamcinolone Acetonide (Triamcinolone Acet 0.5% Cream 15 Gm Tube) 1 applic TOPICAL BID PRN; Protocol PRN Reason: rash/dry skin Social history: Non-smoking. No alcohol. On examination: VITAL SIGNS: 97.6, 72, 16, 148 x 56, 93% on 2 L GENERAL APPEARANCE: Lying in bed, but short of breath HEENT: Normal external appearance of nose and ear. Oral cavity normal EYES: Pupils equal. Conjunctiva normal. NECK: JVD not raised. Mass not palpable. RESPIRATORY: Respiratory effort increased. Lungs diminished breath sounds. Some wheezing CARDIOVASCULAR: First and second sounds normal. Minimal edema in the right leg ABDOMEN: Soft. Liver and spleen not palpable. No tenderness. No right upper quadrant tenderness. No mass palpable. Colostomy bag with liquid stool PSYCHIATRY: Alert and oriented x3. Mood and affect a bit anxious Extremity: Has a wound on the right heel. More details in the chart INVESTIGATIONS, reviewed in the clinical context: 2D echocardiogram: EF 55 to 60%. May 29: Potassium 4.3 BUN 47 creatinine 2.47 May 28, 2024: White count 11 hemoglobin 10.3 platelets 374 sodium 136 potassium 4.8 BUN 50 creatinine 2.59 Troponin I less than 0.012 x 3 Influenza type A, type B, RSV, COVID-19: Not detected EKG tracing personally reviewed by me-normal sinus rhythm. Nonspecific ST T wave changes inferolateral leads. Chest x-ray film personally reviewed by me-pulm edema CT scan brain without contrast: Chronic appearing periventricular white matter ischemic changes. Previous labs: Creatinine 1.6 on April 28/2024 Assessment and plan: -Acute congestive heart failure exacerbation, from diastolic dysfunction EF 55 to 60%.: Better IV Lasix given initially. Now switched over to oral Demadex -Chronic ostomy-functioning well -Chronic cephalgia. Patient stated headaches for greater than 6 months. Practically every day. Does not interfere with his eating. No exacerbating relieving factors. CT scan of the brain shows some chronic changes Seen by Dr. Gay from neurology. For MRI and MRI of the brain. Could also be done outpatient. -Right heel wound. Dry. Follows with Dr. Jernigan at the wound center. Wound care team following. Dr. Carpenter from vascular saw the patient. Deep debridement carried out. No local tenderness. -Chronic parastomal hernia #Hypertension: Amlodipine. Toprol-XL. Hydralazine -Acute kidney injury. Possibly cardiorenal. Consult nephrology -CKD likely nephrosclerosis, diabetic nephropathy Creatinine was 1.6 on April 28, 2024. -CAD with stent Toprol-XL -Anemia in the setting of chronic kidney disease. -Primary osteoarthritis Pain medication as needed -History of prostate cancer with radiation and chemo in 2020. #Diabetes mellitus: Tresiba. Follow Accu-Cheks #Hyperlipidemia: Lipitor #GERD: Protonix -Full code Right heel wound debridement by Dr. Carpenter. Switched over to oral Lasix per nephrology. MRI MRI brain ordered by neurology. DuoNeb added. Past Medical History Past Medical History: Cancer, Chest Pain / Angina, Diabetes Mellitus, Eye Disorder, GERD/Reflux, Hyperlipidemia, Hypertension, Osteoarthritis (OA), Prostate Disorder, Renal Disease Additional Past Medical History / Comment(s): HX OF ULCERATIVE COLITIS, ileostomy PARASTOMAL HERNIA, PROSTATE CA WITH RADIATION AND CHEMO IN 2020, LOW KIDNEY FUNCTION,Covid Dec 2022, Influenza A Jun 2023, eye condition, unsure of name. History of Any Multi-Drug Resistant Organisms: MRSA Date of last positivie culture/infection: 05/24/24 MDRO Source:: rt heel, scalp Past Surgical History: Appendectomy, Bowel Resection, Heart Catheterization, Heart Catheterization With Stent Additional Past Surgical History / Comment(s): COLECTOMY, RECTUM REMOVED, ELLIOTT CATARACTS removed, ILEOSTOMY, HERNIA SURGERY. Past Anesthesia/Blood Transfusion Reactions: No Reported Reaction Additional Past Anesthesia/Blood Transfusion Reaction / Comment(s): no problems with prior blood transfusions. Date of Last Stent Placement:: 08/01/2023 Past Psychological History: Depression Smoking Status: Never smoker Past Alcohol Use History: None Reported Past Drug Use History: None Reported
[2024-05-29 20:41] LABS: Glucose,Whole Blood 175 mg/dL (70-110)
[2024-05-29 21:33] LABS: % Iron Saturation 8.12 (15.00-50.00)
[2024-05-29] MEDS: TRIAMCINOLONE ACET 0.5% CREAM 15 GM TUBE TOPICAL PRN (21:57)
[2024-05-29] MEDS: GABAPENTIN 100 MG CAP PO SCH (21:57)
[2024-05-30 08:04] LABS: Glucose,Whole Blood 80 mg/dL (70-110)
[2024-05-30] MEDS: TORSEMIDE 20 MG TAB PO SCH (08:25)
[2024-05-30] MEDS ORDERED: TORSEMIDE 20 MG TAB PO SCH (09:00)
[2024-05-30 09:03] LABS: BUN/Creat Ratio 18.39 Ratio (12.00-20.00); Blood Urea Nitrogen 42.3 mg/dL (9.0-27.0); Carbon Dioxide 22.5 mmol/L (21.6-31.8); Chloride 104 mmol/L (96-109); Glucose 125 mg/dL (70-110); Magnesium 2.2 mg/dL (1.5-2.4); Potassium 4.7 mmol/L (3.5-5.5); Sodium 139 mmol/L (135-145)
[2024-05-30 09:04] LABS: Calcium 9.3 mg/dL (8.7-10.3)
--- NOTE | 2024-05-30 10:56 | P.PN ---
Subjective Patient is seen in follow-up for acute kidney injury on chronic kidney disease. Renal function better. On oral diuretics. Admits to good urine output. Vital signs are stable. General: No acute distress. HEENT: Head exam is unremarkable. LUNGS: No audible rhonchi or wheezes. HEART: Rate and Rhythm are regular. ABDOMEN: Nontender. EXTREMITITES: 1+ edema. Chronic changes noted. Objective - Vital Signs Vital signs: Vital Signs Temp 97.7 F 05/30/24 02:42 Pulse 78 05/30/24 09:57 Resp 18 05/30/24 02:42 BP 132/54 05/30/24 02:42 Pulse Ox 93 L 05/30/24 09:50 FiO2 Intake & Output 05/29/24 05/30/24 05/30/24 18:59 06:59 18:59 Intake Total 1870 Output Total 800 Balance 1070 Weight 112.9 kg Intake: Oral 1870 Output: Urine 800 Other: Voiding Method Toilet - Labs CBC & Chem 7: 05/28/24 14:56 05/30/24 03:37 Labs: Abnormal Lab Results - Last 24 Hours (Table) 05/29/24 05/29/24 05/29/24 Range/Units 04:20 12:14 17:06 Anion Gap (4.00-12.00) mmol/L BUN (9.0-27.0) mg/dL Creatinine (0.6-1.5) mg/dL Est GFR (CKD-EPI) (>=60) Glucose (70-110) mg/dL POC Glucose (mg/dL) 130 H 125 H (70-110) mg/dL Iron 25 L (65-175) UG/DL % Saturation 8.12 L (15.00-50.00) 05/29/24 05/30/24 Range/Units 20:40 03:37 Anion Gap 12.50 H (4.00-12.00) mmol/L BUN 42.3 H (9.0-27.0) mg/dL Creatinine 2.3 H (0.6-1.5) mg/dL Est GFR (CKD-EPI) 29 L (>=60) Glucose 125 H (70-110) mg/dL POC Glucose (mg/dL) 175 H (70-110) mg/dL Iron (65-175) UG/DL % Saturation (15.00-50.00) Assessment and Plan Plan: Assessment: 1. Acute kidney injury secondary to ATN secondary to diuresis and also Bactrim which will impair creatinine secretion. Creatinine 2.5 on admission and is 2.3 today. 2. Acute hypoxic respiratory failure. 3. Volume overload. Improved with diuresis. 4. Foot infection. Wound care following. Status post debridement this admission. 5. Diabetes mellitus. 6. Coronary disease with cardiac stents. 7. Hypertension with chronic kidney disease. 8. 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 9. Metabolic acidosis secondary to acute kidney injury. On oral bicarb. Better. 10. Anemia of chronic kidney disease. Iron deficiency noted. Plan: Maintain torsemide. Hold SGLT2 inhibitor due to active foot wound. Preserved EF noted on echocardiogram. Maintain low-salt diet and fluid restriction. Add IV iron. Avoid nephrotoxins. Continue to monitor renal function and urine output. Hold hydralazine for systolic blood pressure less than 120.
[2024-05-30 11:54] LABS: Glucose,Whole Blood 156 mg/dL (70-110)
[2024-05-30] MEDS: SODIUM FERRIC GLUCONAT-SUCROSE 125 MG in SODIUM CHLORIDE 0.9% 100 ML IVPB SCH (12:36)
[2024-05-30 15:14] VITALS: BMI 40.1
--- NOTE | 2024-05-30 15:14 | MR ---
EXAMINATION TYPE: MR brain wo con DATE OF EXAM: 05/30/2024 2:47 PM COMPARISON: 05/30/2024. CLINICAL INDICATION: Male, 73 years old with history of headache, headache, r/o aneurysm. TECHNIQUE: Multi planar, multi sequence imaging was performed through the brain including: T1, T2, In version recovery, Diffusion weighted imaging, and gradient echo imaging. No gadolinium was given. FINDINGS: The mann-white junctions, ventricular system, basal cisterns appear unremarkable. Scattered foci of high T2 signal intensity are seen within the periventricular white matter. Midline structures show n o abnormality. Diffusion-weighted imaging shows no evidence of restricted diffusion. The susceptibili ty weighted images do not reveal any evidence for micro-hemorrhage. The bone marrow signal is within normal limits. Paranasal sinuses and mastoid air cells: No significant paranasal sinus disease. Visualized orbits: Bilateral aphakia IMPRESSION: 1. No evidence of intracranial mass or acute/subacute infarct. 2. Nonspecific white matter changes, likely secondary to small vessel ischemic disease. [facility], , 05/30/2024 3:11 PM
--- NOTE | 2024-05-30 15:19 | MR ---
EXAMINATION TYPE: MR angio head wo con DATE OF EXAM: 05/30/2024 2:34 PM COMPARISON: 05/28/2024. CLINICAL INDICATION: Male, 73 years old with history of headache r/o aneurysm; PHH, headache, r/o ane urysm. TECHNIQUE: 3-D [id number] Axial with MIP reconstruction created on a separate workstation.. IV Contrast: mL (None, if empty) FINDINGS: Vertebral arteries: The vertebral arteries are patent. Vertebral arteries are: Right Basilar artery: The leg by approximately artery is intact. The basilar artery bifurcation is normal. Internal Carotid arteries: The cervical, petrous, cavernous and supraclinoid segments are normal. YONATHAN: Atrophic right A1 segment. Patent with no evidence of aneurysm. ACOM: Present without evidence of aneurysm. MCA: Patent with no evidence of aneurysm. 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 Hypoplastic Patent with no evidence of aneu rysm. PCOM: origin right, hypoplastic left IMPRESSION: 1. No evidence of aneurysm or significant stenosis. 2. Atrophic right A1 segment. 3. origin of the right posterior cerebral artery. [facility], , 05/30/2024 3:16 PM
--- NOTE | 2024-05-30 16:57 | P.PN ---
Progress Note - Text 73-year-old gentleman patient has a callus the foot on the heel area we did the debridement yesterday. Patient is under care of Dr. Hilario today we have changed the dressing using Santyl cream patient is an IV antibiotic according the patient he is going home tomorrow dressing should be changed on daily basis using Santyl cream patient will follow-up with at wound clinic patient to use Santyl cream on daily basis
--- NOTE | 2024-05-30 17:07 | P.PN ---
Subjective Progress Note Date: 05/30/24 HISTORY OF PRESENT ILLNESS: This is a 73-year-old male with a past medical history significant for coronary artery disease with previous stenting, congestive heart failure, hypertension, hyperlipidemia, diabetes, chronic kidney disease. Patient follows in the office with Dr. Bales. We have been asked to see the patient in consultation for heart failure. Patient examined at the bedside. Patient presented to the hospital with a chief complaint of shortness of breath. Patient also reports he has been having a severe headache for the past few days which was the main complaint that brought him to the hospital. At the time of examination he denies any chest pain or pressure. He does report shortness of breath. Patient underwent VQ scan this morning that revealed low probability of PE. Patient was initially started on IV Lasix. He was seen by nephrology this morning and transition to Demadex. DIAGNOSTICS: - EKG reveals sinus mechanism with no signs of acute ischemia. - Chest xray findings suggest the possibility of mild CHF and clinical correlation is recommended. - Laboratory data: WBC 11.0. Hemoglobin 10.3. Platelet count 374. Sodium 138. Potassium 4.3. BUN 47. Creatinine 2.47. Troponin negative x 3. proBNP 1370. - Current home cardiac medications include Demadex 40 mg every 2 days and 30 mg every 2 days, hydralazine 25 mg 3 times daily, amlodipine 10 mg daily, Ranexa 50 0 mg twice a day, metoprolol succinate 25 mg daily, Imdur 60 mg daily, Farxiga 10 mg daily, Plavix 75 mg daily, Lipitor 40 mg daily, aspirin 81 mg daily. - Most recent echocardiogram obtained in January 2024 revealed ejection fraction 55 to 60%, moderate pulm hypertension, trace to mild MR, mild TR - Cardiac catheterization history: April 26, 2024 revealing patent stent in the mid LAD. Late stent thrombosis of the second diagonal branch of the LAD, severe disease involving OM1 appeared unchanged compared to before, attempted balloon angioplasty was performed of second diagonal branch with suboptimal results Progress note 05/30/2024 Patient is seen and examined at bedside this a.m. Patient still reports feeling short of breath while getting up and going to the bathroom. He is on diuretics and is making appropriate urine. He denies any chest pressure he denies any lightheadedness or dizziness. Does not appear to have any significant arrhythmias at this time on telemetry monitoring. Patient's echocardiogram did not show any major changes when compared to older echocardiograms with preserved LV systolic function. PHYSICAL EXAM: VITAL SIGNS: Reviewed. GENERAL: Well-developed in no acute distress. HEENT: Head is normocephalic. Pupils are equal, round. Sclerae anicteric. Mucous membranes of the mouth are moist. Neck supple. No JVD or thyromegaly LUNGS: Respirations even and unlabored. Lungs essentially clear to auscultation bilaterally. HEART: Regular rate and rhythm. S1 and S2 heard. ABDOMEN: Soft. Nondistended. Nontender. EXTREMITIES: Normal range of motion. No clubbing or cyanosis. Peripheral pulses intact. No lower extremity edema NEUROLOGIC: Awake and alert. Oriented x 3. ASSESSMENT: Shortness of breath Chronic heart failure with preserved EF, 55 to 60% Coronary artery disease with previous stenting of the LAD and second diagonal branch, with recent attempted balloon angioplasty of second diagonal branch with suboptimal results, March 2024 Known severe disease involving OM1 Chronic kidney disease Hypertension Hyperlipidemia Diabetes Morbid obesity: BMI 46.3 PLAN: Continue current cardiac medications. He is on torsemide 40 mg and Jardiance 10 mg daily. Nephrology has been giving input for diuretic regimen as well. I agree with this diuretic regimen at this time. Continue aspirin, Plavix, Lipitor, metoprolol, Ranexa, amlodipine. At this time patient is cleared from cardiovascular standpoint. Cardiology team will sign off. Please reconsult us in case of any question. Objective - Vital Signs Vital signs: Vital Signs Temp 97.7 F 05/30/24 14:00 Pulse 73 05/30/24 14:00 Resp 17 05/30/24 14:00 BP 151/54 05/30/24 14:00 Pulse Ox 98 05/30/24 14:00 FiO2 Intake & Output 05/29/24 05/30/24 05/30/24 18:59 06:59 18:59 Intake Total 1870 Output Total 800 Balance 1070 Weight 112.9 kg 112.9 kg Intake: Oral 1870 Output: Urine 800 Other: Voiding Method Toilet - Labs CBC & Chem 7: 05/28/24 14:56 05/30/24 03:37 Labs: Abnormal Lab Results - Last 24 Hours (Table) 05/29/24 05/29/24 05/29/24 Range/Units 04:20 17:06 20:40 Anion Gap (4.00-12.00) mmol/L BUN (9.0-27.0) mg/dL Creatinine (0.6-1.5) mg/dL Est GFR (CKD-EPI) (>=60) Glucose (70-110) mg/dL POC Glucose (mg/dL) 125 H 175 H (70-110) mg/dL Iron 25 L (65-175) UG/DL % Saturation 8.12 L (15.00-50.00) 05/30/24 05/30/24 Range/Units 03:37 11:53 Anion Gap 12.50 H (4.00-12.00) mmol/L BUN 42.3 H (9.0-27.0) mg/dL Creatinine 2.3 H (0.6-1.5) mg/dL Est GFR (CKD-EPI) 29 L (>=60) Glucose 125 H (70-110) mg/dL POC Glucose (mg/dL) 156 H (70-110) mg/dL Iron (65-175) UG/DL % Saturation (15.00-50.00)
[2024-05-30 17:17] LABS: Glucose,Whole Blood 193 mg/dL (70-110)
--- NOTE | 2024-05-30 20:32 | P.PN ---
Progress Note - Text Progress Note Date: 05/30/24 Chief Complaint: Short of breath 73-year-old male with a past medical history of hypertension, hyperlipidemia, type 2 diabetes, mood disorder, and CAD , ostomy for 25 years, July 2023 stent to the LAD and second diagonal branch by Dr. Bales. April 26, [address] Bales: Following a non-ST relation HI: Patent stent to mid LAD. Late stent thrombosis of the second diagonal branch of the LAD. Severe disease involving the OM1 appears unchanged. Attempted balloon angioplasty performed to the second of diagonal branch with suboptimal results. Dose of Imdur was increased and Ranexa was added. Patient presents with 2 symptoms of shortness of breath. Headaches. States he been having headaches for 3 months on a daily basis for over 6 months. Feels like a pounding in front of the back of the head. Does not interrupt his eating. No change in vision. No nausea vomiting. Also has been having increasing shortness of breath with activity. For example doing about 7 stairs. No cough. No fever no chills. He did see Dr. 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 No change in medications. He also has a right heel wound being followed by Dr. Jernigan at the wound center. Normally uses 1 pillow. Slight edema in the right leg. May 29: Spoke to the patient and . Some shortness of breath. May be a COPD component. DuoNeb added. Right heel wound is rather dry. Dr. Carpenter from vascular consulted. He carried out a deep debridement. No drainage. Hold off antibiotic. For chronic cephalgia neurology was consulted. Appears to be tension headache. He is rather stressed out. Mindfulness exercise was given to the patient and the . Seen by nephrology this morning. Transition to oral diuretics. Per cardiology no further intervention. May 30: Up in a chair. Feeling better. Seen by neurology. MR angio head without contrast: No evidence of aneurysm or significant stenosis. Atrophic right A1 segment. origin of the right posterior cerebral artery.MRI of the brain nonspecific. Eating well. Patient is on oral diuretics now. No further change in medication from cardiology. Right heel was deeply debrided by Dr. Carpenter. Active Medications Acetaminophen (Acetaminophen Tab 325 Mg Tab) 650 mg PO Q6HR PRN PRN Reason: Fever and/ or Pain Acetaminophen/Butalbital/Caffeine (Butalb/Apap/Caff 50-325-40mg Tab) 1 each PO Q4H PRN PRN Reason: Migraine Headache Last Admin: 05/30/24 08:24 Dose: 1 each Albuterol/Ipratropium (Ipratropium-Albuterol 3 Ml Neb) 3 ml INHALATION RT-QID [facility] Last Admin: 05/30/24 19:57 Dose: 3 ml Allopurinol (Allopurinol 100 Mg Tab) 200 mg PO DAILY [facility] Last Admin: 05/30/24 08:24 Dose: 200 mg Amlodipine Besylate (Amlodipine 10 Mg Tab) 10 mg PO DAILY [facility] Last Admin: 05/30/24 08:25 Dose: 10 mg Aspirin (Aspirin 81 Mg) 81 mg PO DAILY [facility] Last Admin: 05/30/24 08:23 Dose: 81 mg Atorvastatin Calcium (Atorvastatin 40 Mg Tab) 40 mg PO DAILY [facility] Last Admin: 05/30/24 08:24 Dose: 40 mg Calcitriol (Calcitriol 0.25 Mcg Cap) 0.25 mcg PO MO [facility] Clopidogrel Bisulfate (Clopidogrel 75 Mg Tab) 75 mg PO DAILY [facility] Last Admin: 05/30/24 08:23 Dose: 75 mg Collagenase (Collagenase 250 Unit/Gm Ointment 30 Gm Tube) 1 applic TOPICAL DAILY [facility]; Protocol Last Admin: 05/30/24 10:45 Dose: 1 applic Dapagliflozin (Dapagliflozin Propanediol 10 Mg Tablet) 10 mg PO DAILY [facility] Last Admin: 05/30/24 08:23 Dose: 10 mg Ergocalciferol (Ergocalciferol 1,250 Mcg (50,000 Iu) Capsule) 1,250 mcg PO Q14D [facility] Ferrous Sulfate (Ferrous Sulfate 325 Mg Tab) 325 mg PO DAILY [facility] Last Admin: 05/30/24 08:23 Dose: 325 mg Gabapentin (Gabapentin 100 Mg Cap) 100 mg PO HS [facility] Last Admin: 05/29/24 21:57 Dose: 100 mg Heparin Sodium (Porcine) (Heparin Sodium,Porcine 5,000 Unit/Ml 1 Ml Vial) 5,000 unit SQ Q8HR [facility] Last Admin: 05/30/24 17:43 Dose: 5,000 unit Hydralazine HCl (Hydralazine Hcl 50 Mg Tab) 50 mg PO TID [facility] Last Admin: 05/30/24 17:44 Dose: 50 mg Sodium Chloride (Saline 0.9%) 1,000 mls @ 20 mls/hr IV .Q24H [facility] Last Admin: 05/30/24 17:45 Dose: Not Given Ferric Sodium Gluconate 125 mg (/ Sodium Chloride) 110 mls @ 100 mls/hr IVPB DAILY [facility] Stop: 06/02/24 10:59 Last Admin: 05/30/24 12:36 Dose: 100 mls/hr Insulin Aspart (Insulin Aspart (Novolog) 100 Unit/Ml Vial) 30 unit SQ ACHS [facility] Last Admin: 05/30/24 17:45 Dose: Not Given Insulin Detemir (Insulin Detemir (Levemir) 100 Unit/Ml Syr) 50 unit SQ HS [facility] Last Admin: 05/29/24 21:57 Dose: 50 unit Isosorbide Mononitrate (Isosorbide Mononitrate Er 60 Mg Tab.Er.24h) 60 mg PO DAILY [facility] Last Admin: 05/30/24 08:25 Dose: 60 mg Metoprolol Succinate (Metoprolol Succinate (Er) 25 Mg Tab.Er.24h) 25 mg PO DAILY [facility] Last Admin: 05/30/24 08:25 Dose: 25 mg Pantoprazole Sodium (Pantoprazole 40 Mg Tablet) 40 mg PO DAILY [facility] Last Admin: 05/30/24 08:25 Dose: 40 mg Ranolazine (Ranolazine 500 Mg Tab.Er.12h) 500 mg PO Q12HR [facility] Last Admin: 05/30/24 08:25 Dose: 500 mg Sodium Bicarbonate (Sodium Bicarbonate Tab 650 Mg Tab) 650 mg PO BID [facility] Last Admin: 05/30/24 08:23 Dose: 650 mg Torsemide (Torsemide 20 Mg Tab) 40 mg PO DAILY [facility] Last Admin: 05/30/24 08:25 Dose: 40 mg Triamcinolone Acetonide (Triamcinolone Acet 0.5% Cream 15 Gm Tube) 1 applic TOPICAL BID PRN; Protocol PRN Reason: rash/dry skin Last Admin: 05/29/24 21:57 Dose: 1 applic Social history: Non-smoking. No alcohol. On examination: VITAL SIGNS: 97.7, 73, 17, 151 x 54, 98% on 4 L GENERAL APPEARANCE: Up in recliner, breathing better HEENT: Normal external appearance of nose and ear. Oral cavity normal EYES: Pupils equal. Conjunctiva normal. NECK: JVD not raised. Mass not palpable. RESPIRATORY: Respiratory effort normal d. Lungs diminished breath sounds. CARDIOVASCULAR: First and second sounds normal. Minimal edema in the right leg ABDOMEN: Soft. Liver and spleen not palpable. No tenderness. No right upper quadrant tenderness. No mass palpable. Colostomy bag with liquid stool PSYCHIATRY: Alert and oriented x3. Mood and affect a bit anxious Extremity: Has a wound on the right heel. More details in the chart INVESTIGATIONS, reviewed in the clinical context: May 30: Potassium 4.7 BUN 42.3 creatinine 2.3 2D echocardiogram: EF 55 to 60%. May 29: Potassium 4.3 BUN 47 creatinine 2.47 May 28, 2024: White count 11 hemoglobin 10.3 platelets 374 sodium 136 potassium 4.8 BUN 50 creatinine 2.59 Troponin I less than 0.012 x 3 Influenza type A, type B, RSV, COVID-19: Not detected EKG tracing personally reviewed by me-normal sinus rhythm. Nonspecific ST T wave changes inferolateral leads. Chest x-ray film personally reviewed by me-pulm edema CT scan brain without contrast: Chronic appearing periventricular white matter ischemic changes. Previous labs: Creatinine 1.6 on April 28/2024 Assessment and plan: -Acute congestive heart failure exacerbation, from diastolic dysfunction EF 55 to 60%.: Better IV Lasix given initially. Now on oral Demadex -Chronic ostomy-functioning well -Chronic cephalgia. Patient stated headaches for greater than 6 months. Practically every day. Does not interfere with his eating. No exacerbating r elieving factors: Possible tension headaches. CT scan of the brain shows some chronic changes MRI MRI of the brain showing chronic changes. Seen by Dr. Gay from neurology. Further outpatient follow-up with neurology -Right heel wound. Dry. Follows with Dr. Jernigan at the wound center. Wound care team following. Dr. Carpenter from vascular-. Deep debridement carried out. No local tenderness. -Chronic parastomal hernia #Hypertension: Amlodipine. Toprol-XL. Hydralazine -Acute kidney injury. Secondary to diuresis and Bactrim.: Some improvement Nephrology following -CKD likely nephrosclerosis, diabetic nephropathy Creatinine was 1.6 on April 28, 2024. -CAD with stent Toprol-XL -Anemia in the setting of chronic kidney disease. Iron deficiency anemia. IV iron -Primary osteoarthritis Pain medication as needed -History of prostate cancer with radiation and chemo in 2020. #Diabetes mellitus: Tresiba. Follow Accu-Cheks #Hyperlipidemia: Lipitor #GERD: Protonix -Full code Discussed with patient. Wants to go home tomorrow. Continue current medications. IV iron. Past Medical History Past Medical History: Cancer, Chest Pain / Angina, Diabetes Mellitus, Eye Disorder, GERD/Reflux, Hyperlipidemia, Hypertension, Osteoarthritis (OA), Prostate Disorder, Renal Disease Additional Past Medical History / Comment(s): HX OF ULCERATIVE COLITIS, ileostomy PARASTOMAL HERNIA, PROSTATE CA WITH RADIATION AND CHEMO IN 2020, LOW KIDNEY FUNCTION,Covid Dec 2022, Influenza A Jun 2023, eye condition, unsure of name. History of Any Multi-Drug Resistant Organisms: MRSA Date of last positivie culture/infection: 05/24/24 MDRO Source:: rt heel, scalp Past Surgical History: Appendectomy, Bowel Resection, Heart Catheterization, Heart Catheterization With Stent Additional Past Surgical History / Comment(s): COLECTOMY, RECTUM REMOVED, ELLIOTT CATARACTS removed, ILEOSTOMY, HERNIA SURGERY. Past Anesthesia/Blood Transfusion Reactions: No Reported Reaction Additional Past Anesthesia/Blood Transfusion Reaction / Comment(s): no problems with prior blood transfusions. Date of Last Stent Placement:: 08/01/2023 Past Psychological History: Depression Smoking Status: Never smoker Past Alcohol Use History: None Reported Past Drug Use History: None Reported
[2024-05-30 20:54] LABS: Glucose,Whole Blood 208 mg/dL (70-110)
[2024-05-30] MEDS: MELATONIN 5 MG TABLET PO SCH (21:18)
[2024-05-31 02:41] VITALS: RESP 17
[2024-05-31 05:42] LABS: Glucose,Whole Blood 91 mg/dL (70-110)
[2024-05-31] MEDS: ERGOCALCIFEROL 1,250 MCG (50,000 IU) CAPSULE PO SCH (08:06)
[2024-05-31 10:01] VITALS: BP 141/61; TEMP 97.4
--- NOTE | 2024-05-31 10:49 | P.PN ---
Subjective Patient is seen in follow-up for acute kidney injury on chronic kidney disease. Renal function improved with creatinine 2.3 yesterday. On oral diuretics. Admits to good urine output. Oral intake is good. No active complaints. Vital signs are stable. General: No acute distress. HEENT: Head exam is unremarkable. On nasal cannula. LUNGS: No audible rhonchi or wheezes. HEART: Rate and Rhythm are regular. ABDOMEN: Nontender. EXTREMITITES: 1+ edema. Chronic changes noted. Objective - Vital Signs Vital signs: Vital Signs Temp 97.4 F L 05/31/24 08:00 Pulse 74 05/31/24 08:26 Resp 17 05/31/24 08:00 BP 141/61 05/31/24 08:00 Pulse Ox 98 05/31/24 08:00 FiO2 Intake & Output 05/30/24 05/31/24 05/31/24 18:59 06:59 18:59 Weight 112.9 kg 113.511 kg Other: Voiding Method Toilet # Voids 2 - Labs CBC & Chem 7: 05/28/24 14:56 05/30/24 03:37 Labs: Abnormal Lab Results - Last 24 Hours (Table) 05/30/24 05/30/24 05/30/24 Range/Units 11:53 17:16 20:46 POC Glucose (mg/dL) 156 H 193 H 208 H (70-110) mg/dL Microbiology - Last 24 Hours (Table) 05/29/24 15:45 Gram Stain - Preliminary Heel - Right Tissue Culture - Preliminary Presumptive Staph aureus Gram Neg Bacilli Corynebacterium species Assessment and Plan Plan: Assessment: 1. Acute kidney injury secondary to ATN secondary to diuresis and also Bactrim which will impair creatinine secretion. Creatinine 2.5 on admission - 2.3 yesterday. 2. Acute hypoxic respiratory failure. 3. Volume overload. Improved with diuresis. 4. Foot infection. Wound care following. Status post debridement this admission. 5. Diabetes mellitus. 6. Coronary disease with cardiac stents. 7. Hypertension with chronic kidney disease. 8. 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 9. Metabolic acidosis secondary to acute kidney injury. On oral bicarb. Better. 10. Anemia of chronic kidney disease. Iron deficiency noted. Plan: Maintain torsemide. Hold SGLT2 inhibitor due to active foot wound. Preserved EF noted on echocardiogram. Maintain low-salt diet and fluid restriction. Maintain IV iron. Avoid nephrotoxins. Continue to monitor renal function and urine output. Hold hydralazine for systolic blood pressure less than 120.
[2024-05-31 12:03] VITALS: PULSE 74
[2024-05-31 12:13] LABS: Glucose,Whole Blood 162 mg/dL (70-110)
--- NOTE | 2024-05-31 14:19 | P.PN ---
Subjective Progress Note Date: 05/31/24 I am following up with the patient and he feels his headache is drastically better he feels his headache currently is 2/10. Denies any new neurological issues. He feels his breathing is better. He is no longer wheezing currently. Objective - Vital Signs Vital signs: Vital Signs Temp 97.4 F L 05/31/24 08:00 Pulse 74 05/31/24 12:02 Resp 17 05/31/24 08:00 BP 141/61 05/31/24 08:00 Pulse Ox 98 05/31/24 08:00 FiO2 Intake & Output 05/30/24 05/31/24 05/31/24 18:59 06:59 18:59 Weight 112.9 kg 113.511 kg Other: Voiding Method Toilet # Voids 2 - Exam General: Sitting up in a chair and is not in acute distress. Lung: Not wheezing and respiration seems better today compared two days ago. Neuro: The patient is awake alert oriented to self place and time. Is following simple commands. No aphasia no neglect. No facial weakness. No dysarthria Motor left in all extremities above gravity equally. - Labs CBC & Chem 7: 05/28/24 14:56 05/30/24 03:37 Labs: Abnormal Lab Results - Last 24 Hours (Table) 05/30/24 05/30/24 05/31/24 Range/Units 17:16 20:46 12:11 POC Glucose (mg/dL) 193 H 208 H 162 H (70-110) mg/dL Microbiology - Last 24 Hours (Table) 05/29/24 15:45 Gram Stain - Preliminary Heel - Right Tissue Culture - Preliminary Presumptive Staph aureus Gram Neg Bacilli Corynebacterium species Assessment and Plan Assessment: This is a 73-year-old gentleman who presents hospital because of chest pain, shortness of breath and headache. It seems the patient has been having headache for more than 1 year. 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 CT of the head is unremarkable. MRI Brain and MRA are negative that would cause headache--today headache is drastically better and his respiratory status is improved. Acute chest pain Dyspnea Volume overload Foot infection Diabetes mellitus History of coronary artery status post stent Hypertension Plan: I recommend his medication to be adjusted by his primary and other specialist as an outpatient since I feel the patient is on polypharmacy Will defer the rest of the medical management to primary other specialist Upon discharge recommend the patient to follow-up with a neurologist as an outpatient No further neurological workup. Will sign off. Please reconsult if needed. Time with Patient: Less than 30
--- NOTE | 2024-05-31 18:36 | P.DS ---
Providers Date of admission: 05/28/24 22:41 Expected date of discharge: 05/31/24 Attending physician: Jamaal Shea Consults: 05/28/24 16:10 Consult Physician Routine Consulting Provider: Dave Guerin Consult Reason/Comments: ckd Do you want consulting provider notified?: Yes 05/28/24 22:06 Consult Physician Routine Consulting Provider: Erik Gay Consult Reason/Comments: Headaches Do you want consulting provider notified?: Yes 05/29/24 11:06 Consult Physician Routine Consulting Provider: Murphy Carpenter Consult Reason/Comments: R heel wound debridement Do you want consulting provider notified?: Yes Primary care physician: [facility] Course: Chief Complaint: Short of breath 73-year-old male with a past medical history of hypertension, hyperlipidemia, type 2 diabetes, mood disorder, and CAD , ostomy for 25 years, July 2023 stent to the LAD and second diagonal branch by Dr. Bales. April 26, [address] Bales: Following a non-ST relation FL: Patent stent to mid LAD. Late stent thrombosis of the second diagonal branch of the LAD. Severe disease involving the OM1 appears unchanged. Attempted balloon angioplasty performed to the second of diagonal branch with suboptimal results. Dose of Imdur was increased and Ranexa was added. Patient presents with 2 symptoms of shortness of breath. Headaches. States he been having headaches for 3 months on a daily basis for over 6 months. Feels like a pounding in front of the back of the head. Does not interrupt his eating. No change in vision. No nausea vomiting. Also has been having increasing shortness of breath with activity. For example doing about 7 stairs. No cough. No fever no chills. He did see Dr. Bales his technical sales specialist 3 weeks ago. No change in medications. He also has a right heel wound being followed by Dr. Jernigan at the wound center. Normally uses 1 pillow. Slight edema in the right leg. May 29: Spoke to the patient and . Some shortness of breath. May be a COPD component. DuoNesudeep added. Right heel wound is rather dry. Dr. Carpenter from vascular consulted. He carried out a deep debridement. No drainage. Hold off antibiotic. For chronic cephalgia neurology was consulted. Appears to be tension headache. He is rather stressed out. Mindfulness exercise was given to the patient and the . Seen by nephrology this morning. Transition to oral diuretics. Per cardiology no further intervention. May 30: Up in a chair. Feeling better. Seen by neurology. MR angio head without contrast: No evidence of aneurysm or significant stenosis. Atrophic right A1 segment. origin of the right posterior cerebral artery.MRI of the brain nonspecific. Eating well. Patient is on oral diuretics now. No further change in medication from cardiology. Right heel was deeply debrided by Dr. Carpenter. May 31: Doing well. Patient follow-up at the wound center with Dr. Jernigan. Follow-up with his technical sales specialist. Outpatient follow-up with neurology. Results discussed. Patient did better with DuoNeb. Will give albuterol as needed. Discussion and discharge planning more than 35 minutes Social history: Non-smoking. No alcohol. On examination: VITAL SIGNS: 97.4, 70, 17, 141 x 61, 98% on 2 L GENERAL APPEARANCE: Up in recliner, comfortable HEENT: Normal external appearance of nose and ear. Oral cavity normal EYES: Pupils equal. Conjunctiva normal. NECK: JVD not raised. Mass not palpable. RESPIRATORY: Respiratory effort normal d. Lungs some improvement in air entry CARDIOVASCULAR: First and second sounds normal. Minimal edema in the right leg ABDOMEN: Soft. Liver and spleen not palpable. No tenderness. No right upper quadrant tenderness. No mass palpable. Colostomy bag with liquid stool PSYCHIATRY: Alert and oriented x3. Mood and affect a bit anxious Extremity: Has a wound on the right heel. More details in the chart INVESTIGATIONS, reviewed in the clinical context: May 30: Potassium 4.7 BUN 42.3 creatinine 2.3 2D echocardiogram: EF 55 to 60%. May 29: Potassium 4.3 BUN 47 creatinine 2.47 May 28, 2024: White count 11 hemoglobin 10.3 platelets 374 sodium 136 potassium 4.8 BUN 50 creatinine 2.59 Troponin I less than 0.012 x 3 Influenza type A, type B, RSV, COVID-19: Not detected EKG tracing personally reviewed by me-normal sinus rhythm. Nonspecific ST T wave changes inferolateral leads. Chest x-ray film personally reviewed by me-pulm edema CT scan brain without contrast: Chronic appearing periventricular white matter ischemic changes. Previous labs: Creatinine 1.6 on April 28/2024 Assessment and plan: -Acute congestive heart failure exacerbation, from diastolic dysfunction EF 55 to 60%.: Better IV Lasix given initially. Now on oral Demadex -Chronic ostomy-functioning well -Chronic cephalgia. Patient stated headaches for greater than 6 months. Practically every day. Does not interfere with his eating. No exacerbating relieving factors: Possible tension headaches. CT scan of the brain shows some chronic changes MRI MRI of the brain showing chronic changes. Seen by Dr. Gay from neurology. Further outpatient follow-up with neurology -Right heel wound. Dry. Follows with Dr. Jernigan at the wound center. Wound care team following. Dr. Carpenter from vascular-. Deep debridement carried out. No local tenderness. -Chronic parastomal hernia #Hypertension: Amlodipine. Toprol-XL. Hydralazine -Acute kidney injury. Secondary to diuresis and Bactrim.: Some improvement Nephrology following -CKD likely nephrosclerosis, diabetic nephropathy Creatinine was 1.6 on April 28, 2024. -CAD with stent Toprol-XL -Anemia in the setting of chronic kidney disease. Iron deficiency anemia. IV iron -Primary osteoarthritis Pain medication as needed -History of prostate cancer with radiation and chemo in 2020. #Diabetes mellitus: Tresiba. Follow Accu-Cheks #Hyperlipidemia: Lipitor #GERD: Protonix -Full code Disposition: Home Past Medical History Past Medical History: Cancer, Chest Pain / Angina, Diabetes Mellitus, Eye Disorder, GERD/Reflux, Hyperlipidemia, Hypertension, Osteoarthritis (OA), Prostate Disorder, Renal Disease Additional Past Medical History / Comment(s): HX OF ULCERATIVE COLITIS, ileostomy PARASTOMAL HERNIA, PROSTATE CA WITH RADIATION AND CHEMO IN 2020, LOW KIDNEY FUNCTION,Covid Dec 2022, Influenza A Jun 2023, eye condition, unsure of name. History of Any Multi-Drug Resistant Organisms: MRSA Date of last positivie culture/infection: 05/24/24 MDRO Source:: rt heel, scalp Past Surgical History: Appendectomy, Bowel Resection, Heart Catheterization, Heart Catheterization With Stent Additional Past Surgical History / Comment(s): COLECTOMY, RECTUM REMOVED, ELLIOTT CATARACTS removed, ILEOSTOMY, HERNIA SURGERY. Past Anesthesia/Blood Transfusion Reactions: No Reported Reaction Additional Past Anesthesia/Blood Transfusion Reaction / Comment(s): no problems with prior blood transfusions. Date of Last Stent Placement:: 08/01/2023 Past Psychological History: Depression Smoking Status: Never smoker Past Alcohol Use History: None Reported Past Drug Use History: None Reported Plan - Discharge Summary Discharge Rx Participant: Yes New Discharge Prescriptions: New Albuterol Sulfate [Albuterol Sulfate Hfa] 1 puff PO Q4-6H #8.5 gm Sodium Bicarbonate Tab 650 mg PO BID #60 tab Collagenase [Santyl Ointment] 1 applic TOPICAL DAILY each Continue Aspirin EC [Ecotrin Low Dose] 81 mg PO DAILY Ergocalciferol (Vitamin D2) [Drisdol (50,000 Iu)] 1,250 mcg PO Q14D allopurinoL [Zyloprim] 200 mg PO DAILY Gabapentin [Neurontin] 100 mg PO HS Atorvastatin [Lipitor] 40 mg PO DAILY Pantoprazole [Protonix] 40 mg PO DAILY Escitalopram [Lexapro] 10 mg PO DAILY calcitrioL 0.25 mcg PO MO Metoprolol Succinate (ER) [Toprol XL] 25 mg PO DAILY #30 tab Butalb/APAP/Caff 50-325-40Mg [Fioricet 50-325-40] 1 tab PO Q4H PRN PRN Reason: Migraine Headache Ferrous Sulfate [Iron (65 MG Elemental)] 325 mg PO DAILY amLODIPine [Norvasc] 10 mg PO DAILY #30 tab Ranolazine [Ranexa] 500 mg PO Q12HR #60 tab Dapagliflozin Propanediol [Farxiga] 10 mg PO DAILY Insulin Aspart [NovoLOG Flexpen] 30 - 40 units SQ AC-TID Insulin Glargine,Hum.rec.anlog [Toujeo Solostar] 50 units SQ HS Triamcinolone 0.5% Cream [Kenalog 0.5% Cream] 1 applic TOPICAL BID PRN PRN Reason: rash/dry skin Isosorbide Mononitrate ER [Imdur] 60 mg PO DAILY #30 tab Acetaminophen Tab [Tylenol] 650 mg PO Q6HR PRN tab PRN Reason: Fever And/ Or Pain Clopidogrel [Plavix] 75 mg PO DAILY 30 Days #30 tablet hydrALAZINE HCL [Apresoline] 25 mg PO TID Changed Torsemide [Demadex] 40 mg PO DAILY #0 Discontinued Torsemide [Demadex] 30 mg PO Q2D Discharge Medication List Aspirin EC [Ecotrin Low Dose] 81 mg PO DAILY 11/08/18 [History] Ergocalciferol (Vitamin D2) [Drisdol (50,000 Iu)] 1,250 mcg PO Q14D 06/25/20 [History] allopurinoL [Zyloprim] 200 mg PO DAILY 10/21/21 [History] Dapagliflozin Propanediol [Farxiga] 10 mg PO DAILY 11/05/21 [History] Gabapentin [Neurontin] 100 mg PO HS 06/30/23 [History] Atorvastatin [Lipitor] 40 mg PO DAILY 07/25/23 [History] Insulin Aspart [NovoLOG Flexpen] 30 - 40 units SQ AC-TID 08/16/23 [History] Escitalopram [Lexapro] 10 mg PO DAILY 02/10/24 [History] Pantoprazole [Protonix] 40 mg PO DAILY 02/10/24 [History] calcitrioL 0.25 mcg PO MO 02/10/24 [History] Metoprolol Succinate (ER) [Toprol XL] 25 mg PO DAILY #30 tab 02/19/24 [Rx] Butalb/APAP/Caff 50-325-40Mg [Fioricet 50-325-40] 1 tab PO Q4H PRN 04/25/24 [History] Ferrous Sulfate [Iron (65 MG Elemental)] 325 mg PO DAILY 04/25/24 [History] Insulin Glargine,Hum.rec.anlog [Toujeo Solostar] 50 units SQ HS 04/25/24 [History] Triamcinolone 0.5% Cream [Kenalog 0.5% Cream] 1 applic TOPICAL BID PRN 04/25/24 [History] Acetaminophen Tab [Tylenol] 650 mg PO Q6HR PRN tab 04/28/24 [Rx] Clopidogrel [Plavix] 75 mg PO DAILY 30 Days #30 tablet 04/28/24 [Rx] Isosorbide Mononitrate ER [Imdur] 60 mg PO DAILY #30 tab 04/28/24 [Rx] Ranolazine [Ranexa] 500 mg PO Q12HR #60 tab 04/28/24 [Rx] amLODIPine [Norvasc] 10 mg PO DAILY #30 tab 04/28/24 [Rx] hydrALAZINE HCL [Apresoline] 25 mg PO TID 05/28/24 [History] Albuterol Sulfate [Albuterol Sulfate Hfa] 1 puff PO Q4-6H #8.5 gm 05/31/24 [Rx] Collagenase [Santyl Ointment] 1 applic TOPICAL DAILY each 05/31/24 [Rx] Sodium Bicarbonate Tab 650 mg PO BID #60 tab 05/31/24 [Rx] Torsemide [Demadex] 40 mg PO DAILY #0 05/31/24 [Rx] Follow up Appointment(s)/Referral(s): Nas Dennis DO [Primary Care Provider] - 1-2 days Yobany Bales MD [STAFF PHYSICIAN] - 06/14/24 4:45 pm Sandeep Jernigan DPM [STAFF PHYSICIAN] - 1 Week (plese call for an appointment ) [facility], [NON-STAFF] - [facility] [NON-STAFF] - 06/07/24 8:45 am Dave Guerin DO [STAFF PHYSICIAN] - 07/15/24 9:00 am Patient Instructions/Handouts: Heart Failure (IP), Tension Headache (DC), Acute Headache (GEN), Dyspnea (GEN) Discharge Disposition: HOME SELF-CARE
== END 2024-05-31 13:45 | disposition home or self-care (01) | DRG 264 ==
LOC: EC 14:06 → 6NMEDSUR 16:09 → OBSVTOIN 22:41
PROVIDERS: ADMIT Hospitalist; ATTEND Hospitalist
PROC: 0JBQ0ZZ Excision of Right Foot Subcutaneous Tissue and Fascia, Open Approach (ICD-10-PCS; principal; 2024-05-29)
DX: I13.0 Hypertensive heart and chronic kidney disease with heart failure and stage 1 through stage 4 chronic kidney disease, or unspecified chronic kidney disease (principal); L89.613 Pressure ulcer of right heel, stage 3; I50.33 Acute on chronic diastolic (congestive) heart failure; J96.01 Acute respiratory failure with hypoxia; N17.0 Acute kidney failure with tubular necrosis; E87.20 Acidosis, unspecified; I24.0 Acute coronary thrombosis not resulting in myocardial infarction; D63.1 Anemia in chronic kidney disease; I27.20 Pulmonary hypertension, unspecified; E11.22 Type 2 diabetes mellitus with diabetic chronic kidney disease; E66.01 Morbid (severe) obesity due to excess calories; F32.A Depression, unspecified; N18.32 Chronic kidney disease, stage 3b; I08.1 Rheumatic disorders of both mitral and tricuspid valves; Z68.42 Body mass index [BMI] 45.0-49.9, adult; T82.867A Thrombosis due to cardiac prosthetic devices, implants and grafts, initial encounter; K51.90 Ulcerative colitis, unspecified, without complications; L97.518 Non-pressure chronic ulcer of other part of right foot with other specified severity; I96 Gangrene, not elsewhere classified; Z11.52 Encounter for screening for COVID-19; K21.9 Gastro-esophageal reflux disease without esophagitis; K43.5 Parastomal hernia without obstruction or gangrene; E78.5 Hyperlipidemia, unspecified; E11.621 Type 2 diabetes mellitus with foot ulcer; T36.8X5A Adverse effect of other systemic antibiotics, initial encounter; T50.2X5A Adverse effect of carbonic-anhydrase inhibitors, benzothiadiazides and other diuretics, initial encounter; X58.XXXA Exposure to other specified factors, initial encounter; Z93.3 Colostomy status; Z86.16 Personal history of COVID-19; D50.9 Iron deficiency anemia, unspecified; L08.89 Other specified local infections of the skin and subcutaneous tissue; M19.91 Primary osteoarthritis, unspecified site; M89.8X9 Other specified disorders of bone, unspecified site; Y83.1 Surgical operation with implant of artificial internal device as the cause of abnormal reaction of the patient, or of later complication, without mention of misadventure at the time of the procedure; Z79.02 Long term (current) use of antithrombotics/antiplatelets; Z79.4 Long term (current) use of insulin; Z79.82 Long term (current) use of aspirin; Z79.84 Long term (current) use of oral hypoglycemic drugs; Z79.899 Other long term (current) drug therapy; Z85.46 Personal history of malignant neoplasm of prostate; Z92.21 Personal history of antineoplastic chemotherapy; Z88.6 Allergy status to analgesic agent; Z87.19 Personal history of other diseases of the digestive system; Z86.14 Personal history of Methicillin resistant Staphylococcus aureus infection; Z98.42 Cataract extraction status, left eye; Z98.41 Cataract extraction status, right eye
CPT/HCPCS: 36415; 70450; 70544; 70551; 71046; 78582; 80048; 80053; 82728; 83540; 83550; 83690; 83735; 83880; 84484; 85025; 85610; 85730; 87070; 87077; 87186; 87205; 87636; 93005; 93306; 94640; 94760; 96361; 96374; 99285

== ENCOUNTER 2024-06-04 14:37 | Inpatient (IN) | payer MEDICARE ==
--- NOTE | 2024-06-04 15:27 | ED ---
General Adult HPI - General Chief complaint: Shortness of Breath Stated complaint: SOB,headache,abd pain Time Seen by Provider: 06/04/24 14:59 Source: patient, RN notes reviewed Mode of arrival: ambulatory Limitations: no limitations - History of Present Illness Initial comments: 73-year-old male presents the emergency department for evaluation of shortness of breath. Patient reports that he was recently here for the same thing and had multiple test performed. He states that he was requiring supplemental oxygen at that time. He went home and continued to have shortness of breath. He reports a history of CHF. He takes torsemide. - Related Data Home Medications Medication Instructions Recorded Confirmed Aspirin EC [Ecotrin Low Dose] 81 mg PO DAILY 11/08/18 06/04/24 Ergocalciferol (Vitamin D2) 1,250 mcg PO Q14D 06/25/20 06/04/24 [Drisdol (50,000 Iu)] allopurinoL [Zyloprim] 200 mg PO DAILY 10/21/21 06/04/24 Dapagliflozin Propanediol [Farxiga] 10 mg PO DAILY 11/05/21 06/04/24 Gabapentin [Neurontin] 100 mg PO HS 06/30/23 06/04/24 Atorvastatin [Lipitor] 40 mg PO DAILY 07/25/23 06/04/24 Insulin Aspart [NovoLOG Flexpen] 30 - 40 units SQ AC-TID 08/16/23 06/04/24 Escitalopram [Lexapro] 10 mg PO DAILY 02/10/24 06/04/24 Pantoprazole [Protonix] 40 mg PO DAILY 02/10/24 06/04/24 calcitrioL 0.25 mcg PO MO 02/10/24 06/04/24 Butalb/APAP/Caff 50-325-40Mg 1 tab PO Q4H PRN 04/25/24 06/04/24 [Fioricet 50-325-40] Ferrous Sulfate [Iron (65 MG 325 mg PO DAILY 04/25/24 06/04/24 Elemental)] Insulin Glargine,Hum.rec.anlog 50 units SQ HS 04/25/24 06/04/24 [Nava Jose] Triamcinolone 0.5% Cream [Kenalog 1 applic TOPICAL BID PRN 04/25/24 06/04/24 0.5% Cream] hydrALAZINE HCL [Apresoline] 25 mg PO TID 05/28/24 06/04/24 Albuterol Sulfate [Albuterol 1 puff INHALATION RT-Q4H 06/04/24 06/04/24 Sulfate Hfa] Nuzyra 150mg See Taper PO HS 06/04/24 06/04/24 Previous Rx's Medication Instructions Recorded Metoprolol Succinate (ER) [Toprol 25 mg PO DAILY #30 tab 02/19/24 XL] Acetaminophen Tab [Tylenol] 650 mg PO Q6HR PRN tab 04/28/24 Clopidogrel [Plavix] 75 mg PO DAILY 30 Days #30 tablet 04/28/24 Isosorbide Mononitrate ER [Imdur] 60 mg PO DAILY #30 tab 04/28/24 Ranolazine [Ranexa] 500 mg PO Q12HR #60 tab 04/28/24 amLODIPine [Norvasc] 10 mg PO DAILY #30 tab 04/28/24 Collagenase [Santyl Ointment] 1 applic TOPICAL DAILY each 05/31/24 Sodium Bicarbonate Tab 650 mg PO BID #60 tab 05/31/24 Torsemide [Demadex] 40 mg PO DAILY #0 05/31/24 Allergies Allergy/AdvReac Type Severity Reaction Status Date / Time ibuprofen [From Motrin] Allergy Anaphylaxis Verified 06/04/24 16:39 Review of Systems ROS Statement: Those systems with pertinent positive or pertinent negative responses have been documented in the HPI. ROS Other: All systems not noted in ROS Statement are negative. Past Medical History Past Medical History: Cancer, Chest Pain / Angina, Diabetes Mellitus, Eye Disorder, GERD/Reflux, Hyperlipidemia, Hypertension, Osteoarthritis (OA), Prostate Disorder, Renal Disease Additional Past Medical History / Comment(s): HX OF ULCERATIVE COLITIS, ileostomy PARASTOMAL HERNIA, PROSTATE CA WITH RADIATION AND CHEMO IN 2020, LOW KIDNEY FUNCTION,Covid Dec 2022, Influenza A Jun 2023, eye condition, unsure of name. History of Any Multi-Drug Resistant Organisms: MRSA Date of last positivie culture/infection: 05/24/24 MDRO Source:: rt heel, scalp Past Surgical History: Appendectomy, Bowel Resection, Heart Catheterization, Heart Catheterization With Stent Additional Past Surgical History / Comment(s): COLECTOMY, RECTUM REMOVED, ELLIOTT CATARACTS removed, ILEOSTOMY, HERNIA SURGERY. Past Anesthesia/Blood Transfusion Reactions: No Reported Reaction Additional Past Anesthesia/Blood Transfusion Reaction / Comment(s): no problems with prior blood transfusions. Date of Last Stent Placement:: 08/01/2023 Past Psychological History: No Psychological Hx Reported Smoking Status: Never smoker Past Alcohol Use History: None Reported Past Drug Use History: None Reported - Past Family History Mother Family Medical History: Cancer Additional Family Medical History / Comment(s): LUNG CANCER. Father Family Medical History: Cancer Additional Family Medical History / Comment(s): MELANOMA/BRAIN CANCER. General Exam Limitations: no limitations General appearance: alert, in no apparent distress Head exam: Present: atraumatic, normocephalic, normal inspection Eye exam: Present: normal appearance, PERRL, EOMI. Absent: scleral icterus, conjunctival injection, periorbital swelling Respiratory exam: Present: rhonchi, accessory muscle use Cardiovascular Exam: Present: regular rate, normal rhythm, other (Focal to auscultate). Absent: systolic murmur, diastolic murmur, rubs, gallop, clicks GI/Abdominal exam: Present: distended Extremities exam: Present: normal inspection, full ROM, normal capillary refill. Absent: tenderness, pedal edema, joint swelling, calf tenderness Neurological exam: Present: alert, oriented X3 Psychiatric exam: Present: normal affect, normal mood Skin exam: Present: warm, dry, intact, normal color. Absent: rash Course Vital Signs 06/04/24 06/04/24 06/04/24 14:38 16:50 17:04 Temperature 97.8 F Pulse Rate 71 68 Respiratory 22 22 22 Rate Blood Pressure 132/75 124/71 O2 Sat by Pulse 84 L 94 L Oximetry 06/04/24 06/04/24 06/04/24 18:18 18:25 18:31 Temperature 97.7 F Pulse Rate 65 64 67 Respiratory 18 18 22 Rate Blood Pressure 132/53 O2 Sat by Pulse 97 Oximetry 06/05/24 06/05/24 06/05/24 01:00 01:12 01:22 Temperature Pulse Rate 67 65 64 Respiratory 16 Rate Blood Pressure 130/70 O2 Sat by Pulse 97 Oximetry 06/05/24 06/05/24 06/05/24 03:24 03:59 04:12 Temperature Pulse Rate 71 71 72 Respiratory 18 Rate Blood Pressure 129/77 O2 Sat by Pulse 95 Oximetry 06/05/24 06/05/24 06/05/24 06:30 08:09 08:26 Temperature 98.1 F Pulse Rate 73 73 78 Respiratory 20 22 18 Rate Blood Pressure 137/79 148/58 O2 Sat by Pulse 93 L 96 94 L Oximetry 06/05/24 06/05/24 06/05/24 08:35 11:02 11:49 Temperature Pulse Rate 75 72 67 Respiratory 18 22 20 Rate Blood Pressure 122/66 O2 Sat by Pulse 96 Oximetry 06/05/24 06/05/24 06/05/24 12:04 13:06 16:41 Temperature Pulse Rate 68 69 69 Respiratory 18 18 18 Rate Blood Pressure 121/61 O2 Sat by Pulse 96 Oximetry 06/05/24 06/05/24 16:43 16:53 Temperature 97.4 F L Pulse Rate 69 68 Respiratory 22 18 Rate Blood Pressure 134/60 O2 Sat by Pulse 93 L Oximetry Medical Decision Making - Medical Decision Making Was pt. sent in by a medical professional or institution (, PA, ENRICHMENT ASSISTANT, urgent care, hospital, or care home...) When possible be specific @ -No Did you speak to anyone other than the patient for history (EMS, parent, family, police, friend...)? What history was obtained from this source @ -No Did you review nursing and triage notes (agree or disagree)? Why? @ -I reviewed and agree with nursing and triage notes Were old charts reviewed (outside hosp., previous admission, EMS record, old EKG, old radiological studies, urgent care reports/EKG's, care home records)? Report findings @ -No old charts were reviewed Differential Diagnosis (chest pain, altered mental status, abdominal pain women, abdominal pain men, vaginal bleeding, weakness, fever, dyspnea, syncope, headache, dizziness, GI bleed, back pain, seizure, CVA, palpatations, mental health, musculoskeletal)? @ -Differential Dyspnea: Coronary syndrome, arrhythmia, tamponade, asthma, COPD, pulmonary embolism, pneumonia, pneumothorax, pulmonary effusion, anaphylaxis, diabetic ketoacidosis, flailed chest, pulmonary contusion, diaphragmatic rupture, anemia, neuromuscular, this is not meant to be an all-inclusive list. EKG interpreted by me (3pts min.). @ -EKG at 1449 shows A-fib rate 68, QRS 100, QTQTc 376/393 X-rays interpreted by me (1pt min.). @ -Chest x-ray shows volume overload CT interpreted by me (1pt min.). @ -None done U/S interpreted by me (1pt. min.). @ -None done What testing was considered but not performed or refused? (CT, X-rays, U/S, labs)? Why? @ -None What meds were considered but not given or refused? Why? @ -None Did you discuss the management of the patient with other professionals (professionals i.e. , PA, ENRICHMENT ASSISTANT, lab, RT, psych nurse, foster care social worker, sample examiner, teacher, executive vice president and chief operating officer, high risk case manager)? Give summary @ -Case discussed with Dr. Shea who is accepting of the admission Was smoking cessation discussed for >3mins.? @ -No Was critical care preformed (if so, how long)? @ -No Were there social determinants of health that impacted care today? How? (Homelessness, low income, unemployed, alcoholism, drug addiction, transportation, low edu. Level, literacy, decrease access to med. care, long-term, rehab)? @ -No Was there de-escalation of care discussed even if they declined (Discuss DNR or withdrawal of care, Hospice)? DNR status @ -No What co-morbidities impacted this encounter? (DM, HTN, Smoking, COPD, CAD, Cancer, CVA, ARF, Chemo, Hep., AIDS, mental health diagnosis, sleep apnea, morbid obesity)? @ -None Was patient admitted / discharged? Hospital course, mention meds given and route, prescriptions, significant lab abnormalities, going to OR and other [facility] [place] info. @ -Admitted. Patient presented emergency department for evaluation of shortness of breath. Reports recent admission for similar issue. Laboratory studies obtained. Patient requiring supplemental oxygen. There is no significant leukocytosis, hemoglobin 10.4; normal coagulation studies; CMP shows sodium 135, potassium 4.6, BUN 66, creatinine 2.71, negative troponin, BNP elevated at 2550. X-ray obtained of the chest revealing volume overload. Patient was provided a dose of Lasix along with a DuoNeb treatment in the ED. Patient requiring supplemental oxygen he will be admitted to the hospital for CHF exacerbation. Case is discussed with Dr. Shea requested fluid restrictio n, 80 mg Lasix IV twice daily. Case discussed with Dr. Robbins Undiagnosed new problem with uncertain prognosis? @ -No Drug Therapy requiring intensive monitoring for toxicity (Heparin, Nitro, Insulin, Cardizem)? @ -No Were any procedures done? @ -No Diagnosis/symptom? @ -CHF exacerbation Acute, or Chronic, or Acute on Chronic? @ -acute Uncomplicated (without systemic symptoms) or Complicated (systemic symptoms)? @ -complicated Side effects of treatment? @ -No Exacerbation, Progression, or Severe Exacerbation? @ -No Poses a threat to life or bodily function? How? (Chest pain, USA, NH, pneumonia, PE, COPD, DKA, ARF, appy, cholecystitis, CVA, Diverticulitis, Homicidal, Suicidal, threat to staff... and all critical care pts) @ -No - Lab Data Result diagrams: 06/09/24 03:47 06/09/24 17:51 Lab Results 06/04/24 06/04/24 06/04/24 Range/Units 15:26 15:26 15:26 WBC 10.2 (3.8-10.6) k/uL RBC 3.34 L (4.30-5.90) m/uL Hgb 10.4 L (13.0-17.5) gm/dL Hct 32.5 L (39.0-53.0) % MCV 97.5 (80.0-100.0) fL MCH 31.1 (25.0-35.0) pg MCHC 31.9 (31.0-37.0) g/dL RDW 17.2 H (11.5-15.5) % Plt Count 374 (150-450) k/uL MPV 7.2 Neutrophils % 79 % Lymphocytes % 4 % Monocytes % 8 % Eosinophils % 5 % Basophils % 1 % Neutrophils # 8.1 H (1.3-7.7) k/uL Lymphocytes # 0.4 L (1.0-4.8) k/uL Monocytes # 0.9 (0-1.0) k/uL Eosinophils # 0.5 (0-0.7) k/uL Basophils # 0.1 (0-0.2) k/uL Hypochromasia Slight Anisocytosis Slight Macrocytosis Slight PT (10.0-12.5) sec INR (<1.2) APTT (22.0-30.0) sec Sodium 135 L (137-145) mmol/L Potassium 4.6 (3.5-5.1) mmol/L Chloride 101 (98-107) mmol/L Carbon Dioxide 18 L (22-30) mmol/L Anion Gap 16 mmol/L BUN 66 H (9-20) mg/dL Creatinine 2.71 H (0.66-1.25) mg/dL Est GFR (CKD-EPI)AfAm 26 (>60 ml/min/1.73 sqM) Est GFR (CKD-EPI)NonAf 22 (>60 ml/min/1.73 sqM) Glucose 139 H (74-99) mg/dL Calcium 9.6 (8.4-10.2) mg/dL Total Bilirubin 0.8 (0.2-1.3) mg/dL AST 27 (17-59) U/L ALT 20 (4-49) U/L Alkaline Phosphatase 118 (38-126) U/L Troponin I <0.012 (0.000-0.034) ng/mL NT-Pro-B Natriuret Pep 2550 pg/mL Total Protein 7.5 (6.3-8.2) g/dL Albumin 3.9 (3.5-5.0) g/dL 06/04/24 Range/Units 16:32 WBC (3.8-10.6) k/uL RBC (4.30-5.90) m/uL Hgb (13.0-17.5) gm/dL Hct (39.0-53.0) % MCV (80.0-100.0) fL MCH (25.0-35.0) pg MCHC (31.0-37.0) g/dL RDW (11.5-15.5) % Plt Count (150-450) k/uL MPV Neutrophils % % Lymphocytes % % Monocytes % % Eosinophils % % Basophils % % Neutrophils # (1.3-7.7) k/uL Lymphocytes # (1.0-4.8) k/uL Monocytes # (0-1.0) k/uL Eosinophils # (0-0.7) k/uL Basophils # (0-0.2) k/uL Hypochromasia Anisocytosis Macrocytosis PT 10.4 (10.0-12.5) sec INR 0.9 (<1.2) APTT 22.6 (22.0-30.0) sec Sodium (137-145) mmol/L Potassium (3.5-5.1) mmol/L Chloride (98-107) mmol/L Carbon Dioxide (22-30) mmol/L Anion Gap mmol/L BUN (9-20) mg/dL Creatinine (0.66-1.25) mg/dL Est GFR (CKD-EPI)AfAm (>60 ml/min/1.73 sqM) Est GFR (CKD-EPI)NonAf (>60 ml/min/1.73 sqM) Glucose (74-99) mg/dL Calcium (8.4-10.2) mg/dL Total Bilirubin (0.2-1.3) mg/dL AST (17-59) U/L ALT (4-49) U/L Alkaline Phosphatase (38-126) U/L Troponin I (0.000-0.034) ng/mL NT-Pro-B Natriuret Pep pg/mL Total Protein (6.3-8.2) g/dL Albumin (3.5-5.0) g/dL Disposition Clinical Impression: CHF (congestive heart failure), Hypoxia Disposition: ADMITTED IP TO THIS HOSP Condition: Stable Is patient prescribed a controlled substance at d/c from ED?: No
[2024-06-04 15:42] LABS: Anisocytosis Slight; Basophils # (A) 0.1 k/uL (0-0.2); Basophils % (A) 1 %; Eosinophils # (A) 0.5 k/uL (0-0.7); Eosinophils % (A) 5 %; HCT 32.5 % (39.0-53.0); HGB 10.4 gm/dL (13.0-17.5); Hypochromasia Slight; Lymphocytes # (A) 0.4 k/uL (1.0-4.8); Lymphocytes % (A) 4 %; MCH 31.1 pg (25.0-35.0); MCHC 31.9 g/dL (31.0-37.0); MCV 97.5 fL (80.0-100.0); Macrocytosis Slight; Mean Platelet Volume 7.2; Monocytes # (A) 0.9 k/uL (0-1.0); Monocytes % (A) 8 %; Neutrophils # (A) 8.1 k/uL (1.3-7.7); Neutrophils % (A) 79 %; Platelet Count 374 k/uL (150-450); RBC 3.34 m/uL (4.30-5.90); RDW 17.2 % (11.5-15.5); WBC 10.2 k/uL (3.8-10.6)
[2024-06-04 16:17] LABS: ALT 20 U/L (4-49); AST 27 U/L (17-59); African American GFR (CKD) 26 (>60 ml/min/1.73 sqM); Albumin 3.9 g/dL (3.5-5.0); Alkaline Phosphatase 118 U/L (38-126); Anion Gap 16 mmol/L; Blood Urea Nitrogen 66 mg/dL (9-20); Calcium 9.6 mg/dL (8.4-10.2); Carbon Dioxide 18 mmol/L (22-30); Chloride 101 mmol/L (98-107); Glucose 139 mg/dL (74-99); NT-Pro-B-Type Natriuretic Pept 2550 pg/mL; Non-African American GFR(CKD) 22 (>60 ml/min/1.73 sqM); Potassium 4.6 mmol/L (3.5-5.1); Sodium 135 mmol/L (137-145); Total Bilirubin 0.8 mg/dL (0.2-1.3); Total Protein 7.5 g/dL (6.3-8.2)
[2024-06-04 17:09] LABS: INR 0.9 (<1.2); Partial Thromboplastin Time 22.6 sec (22.0-30.0); Prothrombin Time 10.4 sec (10.0-12.5)
--- NOTE | 2024-06-04 17:17 | XR ---
EXAMINATION TYPE: XR chest 2V DATE OF EXAM: 06/04/2024 4:37 PM COMPARISON: None. CLINICAL INDICATION: Male, 73 years old with history of difficulty breathing, TECHNIQUE: XR chest 2V view(s) obtained. FINDINGS: The heart size is normal. The pulmonary vasculature is prominent. There is a small posterior pleural effusion.. IMPRESSION: 1. Correlate for volume overload [facility], Workstation: [facility], 06/04/2024 5:15 PM
[2024-06-04] MEDS: IPRATROPIUM-ALBUTEROL 3 ML NEB INHALATION STA (18:18)
[2024-06-04] MEDS ORDERED: NALOXONE 0.4 MG/ML 1 ML VIAL IV PRN (18:24)
[2024-06-04] MEDS: FUROSEMIDE 10 MG/ML 4 ML VIAL IV STA (18:34)
[2024-06-04] MEDS ORDERED: TRIAMCINOLONE ACET 0.5% CREAM 15 GM TUBE TOPICAL PRN (19:43)
[2024-06-04] MEDS ORDERED: DEXTROSE 50% SYRINGE 50 ML IVP PRN ×2 (19:44)
[2024-06-04 20:11] LABS: Glucose,Whole Blood 147 mg/dL (70-110)
[2024-06-04] MEDS: SODIUM BICARBONATE TAB 650 MG TAB PO SCH (20:33)
[2024-06-04] MEDS: RANOLAZINE 500 MG TAB.ER.12H PO SCH (20:33)
[2024-06-04] MEDS: GABAPENTIN 100 MG CAP PO SCH (20:33)
[2024-06-04] MEDS: INSULIN ASPART (NovoLOG) 100 UNIT/ML VIAL SQ SCH (21:04)
[2024-06-04] MEDS: INSULIN DETEMIR (LEVEMIR) 100 UNIT/ML SYR SQ SCH (21:05)
[2024-06-04] MEDS: hydrALAZINE HCL 25 MG TAB PO SCH (22:31)
[2024-06-04] MEDS: ALBUTEROL NEBULIZED 2.5 MG/3 ML INHALATION SCH (22:46)
[2024-06-05] MEDS: FUROSEMIDE 10 MG/ML 10 ML VIAL IV SCH (05:55)
[2024-06-05 07:38] LABS: Glucose,Whole Blood 100 mg/dL (70-110)
[2024-06-05] MEDS: INSULIN ASPART (NovoLOG) 100 UNIT/ML VIAL SQ SCH (08:10)
[2024-06-05] MEDS: allopurinoL 100 MG TAB PO SCH (08:11)
[2024-06-05] MEDS: ASPIRIN 81 MG PO SCH (08:12)
[2024-06-05] MEDS: ATORVASTATIN 40 MG TAB PO SCH (08:12)
[2024-06-05] MEDS: amLODIPine 10 MG TAB PO SCH (08:12)
[2024-06-05] MEDS: DAPAGLIFLOZIN PROPANEDIOL 10 MG TABLET PO SCH (08:13)
[2024-06-05] MEDS: CLOPIDOGREL 75 MG TAB PO SCH (08:13)
[2024-06-05] MEDS: PANTOPRAZOLE 40 MG TABLET PO SCH (08:14)
[2024-06-05] MEDS: FERROUS SULFATE 325 MG TAB PO SCH (08:15)
[2024-06-05] MEDS: ESCITALOPRAM 10 MG TAB PO SCH (08:15)
[2024-06-05] MEDS: ISOSORBIDE MONONITRATE ER 60 MG TAB.ER.24H PO SCH (08:17)
[2024-06-05] MEDS: METOPROLOL SUCCINATE (ER) 25 MG TAB.ER.24H PO SCH (08:17)
[2024-06-05] MEDS: COLLAGENASE 250 UNIT/GM OINTMENT 30 GM TUBE TOPICAL SCH (08:20)
[2024-06-05] MEDS: ERGOCALCIFEROL 1,250 MCG (50,000 IU) CAPSULE PO SCH (08:42)
[2024-06-05 13:05] LABS: Glucose,Whole Blood 50 mg/dL (70-110)
[2024-06-05] MEDS: BUDESONIDE 1 MG/2 ML NEBU INHALATION SCH (13:12)
--- NOTE | 2024-06-05 13:15 | P.CRDCN ---
History of Present Illness Consult date: 06/05/24 Consult reason: congestive heart failure History of present illness: This is 73-year-old male patient of Dr. Bales with past medical history of co ronary artery disease status post PCI of the LAD and second diagonal branch, known severe disease involving the OM1, heart failure with preserved EF, diabetes, hypertension, dyslipidemia, chronic kidney disease, dilated ascending aorta, history of colectomy and overweight. We have been asked to evaluate the patient for CHF. Patient was recently hospitalized 05/28 - 05/31 and was treated for CHF and acute kidney injury. Patient states that when he went home he did not feel any better related to shortness of breath and when he had come in. He states he continues to have shortness of breath which is worsening and also has a little lightheadedness and dizziness. He complains of chest pain across the mid chest and also some left lower abdominal pain. He denies cough but he states in the morning he has sputum production. No significant lower extremity edema. He does have a chronic wound to the right foot with the boot in place. Blood pressure 121/61, heart rate 69, pulse ox 96% on 2 and half liters nasal cannula. Patient has been started on IV Lasix 80 mg every 12 hours. -EKG: Atrial fibrillation [address] changes -Chest x-ray: Correlate for volume overload -Laboratory studies: WBC 10.2, hemoglobin 10.4, platelet count 374. Sodium 135, potassium 4.6, BUN 66 and creatinine 2.71. Troponin negative x 1. proBNP 2550. -Home cardiac medications: Amlodipine 10 mg daily, aspirin 81 mg daily, atorvastatin 40 mg daily, Plavix 75 mg daily, Farxiga 10 mg daily, hydralazine 25 mg 3 times daily, Imdur 60 mg daily, Toprol XL 25 mg daily, Ranexa 500 mg every 12 hours, Demadex 40 mg daily. -Echocardiogram from 05/28/2024 revealed technical difficult study minimal mitral and tricuspid regurgitation. No pericardial effusion. -Cardiac catheterization history: April 26, 2024 revealing patent stent in the mid LAD. Late stent thrombosis of the second diagonal branch of the LAD, severe disease involving OM1 appeared unchanged compared to before, attempted balloon angioplasty was performed of second diagonal branch with suboptimal results Review Of Systems: At the time of my exam: CONSTITUTIONAL: Denies fever or chills. HEENT: Denies blurred vision, vision changes, or eye pain. Denies hemoptysis CARDIOVASCULAR: Denies chest pain. Denies orthopnea. Denies PND. Denies palpitations RESPIRATORY: Reports shortness of breath. GASTROINTESTINAL: Denies abdominal pain. Denies nausea or vomiting. HEMATOLOGIC: Denies bleeding disorders. GENITOURINARY: Denies any blood in urine. SKIN: Denies puritis. Denies rash. Physical examination: Gen: This is a 73-year-old male in no acute respiratory distress. VS: reviewed HEENT: Head is atraumatic, normocephalic. Pupils equal, round. Sclerae is anicteric. NECK: Supple. No JVD. LUNGS: Decreased air exchange with bilateral expiratory wheeze. No intercostal retractions. HEART: Regular rate and rhythm. No murmur. ABDOMEN: Soft No tenderness. Colostomy right lower quadrant. EXTREMITIES: Minimal pedal edema. Boot in place to the right foot. No calf tenderness. NEUROLOGICAL: Patient is awake, alert and oriented x3. Assessment: Difficulty breathing Acute on chronic diastolic heart failure History of coronary artery disease with PCI of the LAD and second diagonal with known severe disease involving the OM1 Diabetes Hypertension Dyslipidemia Chronic kidney disease with acute kidney injury Dilated ascending aorta History of colectomy Plan: Resume patient's home cardiac medications Continue patient on IV Lasix Monitor GABRIEL, daily weights, electrolytes and renal function No need to repeat echocardiogram Further recommendations to follow based upon clinical course Thank you kindly for this consultation. Nurse practitioner note has been reviewed, I agree with documented findings and plan of care. Patient was seen and examined. Past Medical History Past Medical History: Cancer, Chest Pain / Angina, Diabetes Mellitus, Eye Disorder, GERD/Reflux, Hyperlipidemia, Hypertension, Osteoarthritis (OA), Prostate Disorder, Renal Disease Additional Past Medical History / Comment(s): HX OF ULCERATIVE COLITIS, ileostomy PARASTOMAL HERNIA, PROSTATE CA WITH RADIATION AND CHEMO IN 2020, LOW KIDNEY FUNCTION,Covid Dec 2022, Influenza A Jun 2023, eye condition, unsure of name. History of Any Multi-Drug Resistant Organisms: MRSA Date of last positivie culture/infection: 05/24/24 MDRO Source:: rt heel, scalp Past Surgical History: Appendectomy, Bowel Resection, Heart Catheterization, Heart Catheterization With Stent Additional Past Surgical History / Comment(s): COLECTOMY, RECTUM REMOVED, ELLIOTT CATARACTS removed, ILEOSTOMY, HERNIA SURGERY. Past Anesthesia/Blood Transfusion Reactions: No Reported Reaction Additional Past Anesthesia/Blood Transfusion Reaction / Comment(s): no problems with prior blood transfusions. Date of Last Stent Placement:: 08/01/2023 Past Psychological History: No Psychological Hx Reported Smoking Status: Never smoker Past Alcohol Use History: None Reported Past Drug Use History: None Reported - Past Family History Mother Family Medical History: Cancer Additional Family Medical History / Comment(s): LUNG CANCER. Father Family Medical History: Cancer Additional Family Medical History / Comment(s): MELANOMA/BRAIN CANCER. Medications and Allergies Home Medications Medication Instructions Recorded Confirmed Type Aspirin EC [Ecotrin Low Dose] 81 mg PO DAILY 11/08/18 06/04/24 History Ergocalciferol (Vitamin D2) 1,250 mcg PO Q14D 06/25/20 06/04/24 History [Drisdol (50,000 Iu)] allopurinoL [Zyloprim] 200 mg PO DAILY 10/21/21 06/04/24 History Dapagliflozin Propanediol [Farxiga] 10 mg PO DAILY 11/05/21 06/04/24 History Gabapentin [Neurontin] 100 mg PO HS 06/30/23 06/04/24 History Atorvastatin [Lipitor] 40 mg PO DAILY 07/25/23 06/04/24 History Insulin Aspart [NovoLOG Flexpen] 30 - 40 units SQ AC-TID 08/16/23 06/04/24 History Escitalopram [Lexapro] 10 mg PO DAILY 02/10/24 06/04/24 History Pantoprazole [Protonix] 40 mg PO DAILY 02/10/24 06/04/24 History calcitrioL 0.25 mcg PO MO 02/10/24 06/04/24 History Metoprolol Succinate (ER) [Toprol 25 mg PO DAILY #30 tab 02/19/24 06/04/24 Rx XL] Butalb/APAP/Caff 50-325-40Mg 1 tab PO Q4H PRN 04/25/24 06/04/24 History [Fioricet 50-325-40] Ferrous Sulfate [Iron (65 MG 325 mg PO DAILY 04/25/24 06/04/24 History Elemental)] Insulin Glargine,Hum.rec.anlog 50 units SQ HS 04/25/24 06/04/24 History [Nava Jose] Triamcinolone 0.5% Cream [Kenalog 1 applic TOPICAL BID PRN 04/25/24 06/04/24 History 0.5% Cream] Acetaminophen Tab [Tylenol] 650 mg PO Q6HR PRN tab 04/28/24 06/04/24 Rx Clopidogrel [Plavix] 75 mg PO DAILY 30 Days #30 tablet 04/28/24 06/04/24 Rx Isosorbide Mononitrate ER [Imdur] 60 mg PO DAILY #30 tab 04/28/24 06/04/24 Rx Ranolazine [Ranexa] 500 mg PO Q12HR #60 tab 04/28/24 06/04/24 Rx amLODIPine [Norvasc] 10 mg PO DAILY #30 tab 04/28/24 06/04/24 Rx hydrALAZINE HCL [Apresoline] 25 mg PO TID 05/28/24 06/04/24 History Collagenase [Santyl Ointment] 1 applic TOPICAL DAILY each 05/31/24 06/04/24 Rx Sodium Bicarbonate Tab 650 mg PO BID #60 tab 05/31/24 06/04/24 Rx Torsemide [Demadex] 40 mg PO DAILY #0 05/31/24 06/04/24 Rx Albuterol Sulfate [Albuterol 1 puff INHALATION RT-Q4H 06/04/24 06/04/24 History Sulfate Hfa] Nuzyra 150mg See Taper PO HS 06/04/24 06/04/24 History Allergies Allergy/AdvReac Type Severity Reaction Status Date / Time ibuprofen [From Motrin] Allergy Anaphylaxis Verified 06/04/24 16:39 Physical Exam Vitals: Vital Signs Temp Pulse Resp BP Pulse Ox 06/05/24 08:09 98.1 F 73 22 148/58 96 06/05/24 06:30 73 20 137/79 93 L 06/05/24 04:12 72 06/05/24 03:59 71 06/05/24 03:24 71 18 129/77 95 06/05/24 01:22 64 06/05/24 01:12 65 06/05/24 01:00 67 16 130/70 97 06/04/24 18:31 97.7 F 67 22 132/53 97 06/04/24 18:25 64 18 02/04/25 18:18 65 18 06/04/24 17:04 22 06/04/24 16:50 68 22 124/71 94 L 06/04/24 14:38 97.8 F 71 22 132/75 84 L Results 06/04/24 15:26 06/04/24 15:26 Cardiac Enzymes 06/04/24 06/04/24 Range/Units 15:26 15:26 AST 27 (17-59) U/L Troponin I <0.012 (0.000-0.034) ng/mL Coagulation 06/04/24 Range/Units 16:32 PT 10.4 (10.0-12.5) sec APTT 22.6 (22.0-30.0) sec CBC 06/04/24 Range/Units 15:26 WBC 10.2 (3.8-10.6) k/uL RBC 3.34 L (4.30-5.90) m/uL Hgb 10.4 L (13.0-17.5) gm/dL Hct 32.5 L (39.0-53.0) % Plt Count 374 (150-450) k/uL Comprehensive Metabolic Panel 06/04/24 Range/Units 15:26 Sodium 135 L (137-145) mmol/L Potassium 4.6 (3.5-5.1) mmol/L Chloride 101 (98-107) mmol/L Carbon Dioxide 18 L (22-30) mmol/L BUN 66 H (9-20) mg/dL Creatinine 2.71 H (0.66-1.25) mg/dL Glucose 139 H (74-99) mg/dL Calcium 9.6 (8.4-10.2) mg/dL AST 27 (17-59) U/L ALT 20 (4-49) U/L Alkaline Phosphatase 118 (38-126) U/L Total Protein 7.5 (6.3-8.2) g/dL Albumin 3.9 (3.5-5.0) g/dL Current Medications Generic Name Dose Route Start Last Admin Trade Name Freq PRN Reason Stop Dose Admin Acetaminophen 650 mg 06/04/24 18:24 Acetaminophen Tab 325 Mg Tab PO Q6HR PRN Mild Pain or Fever > 100.5 Albuterol Sulfate 2.5 mg 06/04/24 20:00 06/05/24 03:58 Albuterol Nebulized 2.5 Mg/3 Ml INHALATION 2.5 mg RT-Q4H JOSÉ Administration Allopurinol 200 mg 06/05/24 09:00 06/05/24 08:11 Allopurinol 100 Mg Tab PO 200 mg DAILY JOSÉ Administration Amlodipine Besylate 10 mg 06/05/24 09:00 06/05/24 08:12 Amlodipine 10 Mg Tab PO 10 mg DAILY JOSÉ Administration Aspirin 81 mg 06/05/24 09:00 06/05/24 08:12 Aspirin 81 Mg PO 81 mg DAILY JOSÉ Administration Atorvastatin Calcium 40 mg 06/05/24 09:00 06/05/24 08:12 Atorvastatin 40 Mg Tab PO 40 mg DAILY JOSÉ Administration Calcitriol 0.25 mcg 06/10/24 09:00 Calcitriol 0.25 Mcg Cap PO Mo@0900 [facility] Clopidogrel Bisulfate 75 mg 06/05/24 09:00 06/05/24 08:13 Clopidogrel 75 Mg Tab PO 75 mg DAILY JOSÉ Administration Dapagliflozin 10 mg 06/05/24 09:00 06/05/24 08:13 Dapagliflozin Propanediol 10 Mg Tablet PO 10 mg DAILY [facility] Administration Dextrose/Water 25 ml 06/04/24 19:44 Dextrose 50% Syringe 50 Ml IVP PER PROTOCOL PRN Hypoglycemia Protocol Dextrose/Water 50 ml 06/04/24 19:44 Dextrose 50% Syringe 50 Ml IVP PER PROTOCOL PRN Hypoglycemia Protocol Ergocalciferol 1,250 mcg 06/05/24 09:00 Ergocalciferol 1,250 Mcg (50,000 Iu) Capsule PO Q14D [facility] Escitalopram Oxalate 10 mg 06/05/24 09:00 Escitalopram 10 Mg Tab PO DAILY [facility] Ferrous Sulfate 325 mg 06/05/24 09:00 Ferrous Sulfate 325 Mg Tab PO DAILY [facility] Furosemide 80 mg 06/05/24 06:00 06/05/24 05:55 Furosemide 10 Mg/Ml 10 Ml Vial IV 80 mg Q12H [facility] Administration Gabapentin 100 mg 06/04/24 21:00 06/04/24 20:33 Gabapentin 100 Mg Cap PO 100 mg HS [facility] Administration Hydralazine HCl 25 mg 06/04/24 22:00 06/04/24 22:31 Hydralazine Hcl 25 Mg Tab PO 25 mg TID [facility] Administration Insulin Aspart 0 unit 06/04/24 21:00 06/05/24 07:39 Insulin Aspart (Novolog) 100 Unit/Ml Vial SQ Not Given ACHS [facility] Protocol Insulin Aspart 20 unit 06/05/24 07:30 06/05/24 08:10 Insulin Aspart (Novolog) 100 Unit/Ml Vial SQ 20 unit AC-TID [facility] Administration Insulin Detemir 40 unit 06/04/24 21:00 06/04/24 21:05 Insulin Detemir (Levemir) 100 Unit/Ml Syr SQ 40 unit HS [facility] Administration Isosorbide Mononitrate 60 mg 06/05/24 09:00 Isosorbide Mononitrate Er 60 Mg Tab.Er.24h PO DAILY [facility] Metoprolol Succinate 25 mg 06/05/24 09:00 Metoprolol Succinate (Er) 25 Mg Tab.Er.24h PO DAILY [facility] Naloxone HCl 0.2 mg 06/04/24 18:24 Naloxone 0.4 Mg/Ml 1 Ml Vial IV Q2M PRN Opioid Reversal Collagenase 250 Unit 1 each 06/05/24 09:00 /Gm Ointment 30 Gm TOPICAL Tube DAILY [facility] Protocol Pantoprazole Sodium 40 mg 06/05/24 09:00 Pantoprazole 40 Mg Tablet PO DAILY [facility] Ranolazine 500 mg 06/04/24 21:00 06/05/24 08:14 Ranolazine 500 Mg Tab.Er.12h PO 500 mg Q12HR [facility] Administration Sodium Bicarbonate 650 mg 06/04/24 21:00 06/04/24 20:33 Sodium Bicarbonate Tab 650 Mg Tab PO 650 mg BID [facility] Administration Triamcinolone Acetonide 1 applic 06/04/24 19:43 Triamcinolone Acet 0.5% Cream 15 Gm Tube TOPICAL BID PRN rash/dry skin Protocol 06/04/24 15:26 06/04/24 15:26
[2024-06-05 13:52] LABS: Glucose,Whole Blood 67 mg/dL (70-110)
[2024-06-05 14:38] LABS: Glucose,Whole Blood 94 mg/dL (70-110)
[2024-06-05 16:25] LABS: Glucose,Whole Blood 132 mg/dL (70-110)
[2024-06-05] MEDS: IPRATROPIUM-ALBUTEROL 3 ML NEB INHALATION SCH (16:41)
[2024-06-05 17:21] LABS: Glucose,Whole Blood 152 mg/dL (70-110)
--- NOTE | 2024-06-05 17:46 | P.HPIM ---
History of Present Illness H&P Date: 06/05/24 Chief Complaint: Short of breath Pleasant 73-year-old patient follows with Dr. Dennis. Collator Hand: Dr. Bales Chronic medical conditions include hypertension, hyperlipidemia, type 2 diabetes, mood disorder, and CAD , ostomy for 25 years, July 2023 stent to the LAD and second diagonal branch by Dr. Bales. April 26, [address] Bales: Following a non-ST relation [place]: Patent stent to mid LAD. Late stent thrombosis of the second diagonal branch of the LAD. Severe disease involving the OM1 appears unchanged. Attempted balloon angioplasty performed to the second of diagonal branch with suboptimal results. Dose of Imdur was increased and Ranexa was added. Patient recently in the hospital from May 28 through May 31. Chronic headaches: MRI unremarkable. MR angio head and neck: MR angio head without contrast: No evidence of aneurysm or significant stenosis. Atrophic right A1 segment. origin of the right posterior cerebral artery.MRI of the brain nonspecific. Was seen by neurology Dr. Gay. Patient to follow-up outpatient Chronic right heel wound seen by Dr. Carpenter from vascular deep debridement was carried out. No need for antibiotics. Patient to follow-up with Dr. Jernigan at the wound center. Shortness of breath: Was seen by cardiology. Not for any further intervention. Patient doing well when discharged. Patient presented increased shortness of breath when at home. His pulse ox dropped out of the 80s. Increasing shortness of breath. Decreased appetite. No fever or chills. Review of systems: GEN.: Tired EYES: None HEENT: Headache NECK: None RESPIRATORY: As above CARDIOVASCULAR: As above GASTROINTESTINAL: None GENITOURINARY: None MUSCULOSKELETAL: Joint pain LYMPHATICS: None HEMATOLOGICAL: None PSYCHIATRY: None NEUROLOGICAL: Sometimes uses a cane Social history: Non-smoking. No alcohol. On examination: VITAL SIGNS: 98.1, 73, 22, 148 x 58, 96% on 2.5 L GENERAL APPEARANCE: Reclining in bed, but short of breath, tired e HEENT: Normal external appearance of nose and ear. Oral cavity normal EYES: Pupils equal. Conjunctiva normal. NECK: JVD not raised. Mass not palpable. RESPIRATORY: Respiratory effort increased lungs decreased breath sounds CARDIOVASCULAR: First and second sounds normal. Minimal edema in the right leg ABDOMEN: Soft. Liver and spleen not palpable. No tenderness. No right upper quadrant tenderness. No mass palpable. Colostomy bag with liquid stool PSYCHIATRY: Tired to be sleepy but able to answer questions Extremity: Has a wound on the right heel. More details in the chart INVESTIGATIONS, reviewed in the clinical context: June 04: White count 10.2 hemoglobin 10.4 platelet 374 sodium 135 potassium 4.6 BUN 66 creatinine 2.71 troponin I less than 0.012 proBNP 2550 EKG tracing personally reviewed by me-atrial fibrillation. Rate 68 Chest x-ray film personally reviewed by me-pulm edema Recent labs May 30: Potassium 4.7 BUN 42.3 creatinine 2.3 2D echocardiogram: [May 29, 2024] EF 55 to 60%. CT scan brain without contrast: Chronic appearing periventricular white matter ischemic changes. Previous labs: Creatinine 1.6 on April 28/2024 Assessment and plan: -Acute on chronic congestive heart failure exacerbation, from diastolic dysfunction EF 55 to 60%. IV Lasix 80 mg twice daily -Acute hypoxic respiratory failure from pulmonary edema Oxygen supplement -COPD non-smoker DuoNeb 4 times daily. Nebulized Pulmicort -Chronic ostomy-functioning well -Chronic cephalgia. Patient stated headaches for greater than 6 months. Practically every day. Does not interfere with his eating. No exacerbating relieving factors: Possible tension headaches. CT scan of the brain shows some chronic changes MRI and MRI of the brain showing chronic changes. Seen by Dr. Gay from neurology a week ago. Further outpatient follow-up with neurology -Right heel wound. Dry. Follows with Dr. Jernigan at the wound center. Dr. Carpenter from vascular-. Deep debridement carried out last week. Local wound care -Chronic parastomal hernia #Hypertension: Amlodipine. Toprol-XL. Hydralazine -Acute kidney injury. Possibly cardiorenal -CKD likely nephrosclerosis, diabetic nephropathy Creatinine was 1.6 on April 28, 2024. -CAD with stent Toprol-XL -Anemia in the setting of chronic kidney disease. Iron deficiency anemia. Recently received IV iron -Primary osteoarthritis Pain medication as needed -History of prostate cancer with radiation and chemo in 2020. #Diabetes mellitus: Tresiba. Follow Accu-Cheks #Hyperlipidemia: Lipitor #GERD: Protonix -Full code Care was discussed with the patient and at the bedside. Consultation to cardiology pulmonary nephrology. Follow I's and O's. Past Medical History Past Medical History: Cancer, Chest Pain / Angina, Diabetes Mellitus, Eye Disorder, GERD/Reflux, Hyperlipidemia, Hypertension, Osteoarthritis (OA), Prostate Disorder, Renal Disease Additional Past Medical History / Comment(s): HX OF ULCERATIVE COLITIS, ileostomy PARASTOMAL HERNIA, PROSTATE CA WITH RADIATION AND CHEMO IN 2020, LOW KIDNEY FUNCTION,Covid Dec 2022, Influenza A Jun 2023, eye condition, unsure of name. History of Any Multi-Drug Resistant Organisms: MRSA Date of last positivie culture/infection: 05/24/24 MDRO Source:: rt heel, scalp Past Surgical History: Appendectomy, Bowel Resection, Heart Catheterization, Heart Catheterization With Stent Additional Past Surgical History / Comment(s): COLECTOMY, RECTUM REMOVED, ELLIOTT CATARACTS removed, ILEOSTOMY, HERNIA SURGERY. Past Anesthesia/Blood Transfusion Reactions: No Reported Reaction Additional Past Anesthesia/Blood Transfusion Reaction / Comment(s): no problems with prior blood transfusions. Date of Last Stent Placement:: 08/01/2023 Past Psychological History: No Psychological Hx Reported Smoking Status: Never smoker Past Alcohol Use History: None Reported Past Drug Use History: None Reported - Past Family History Mother Family Medical History: Cancer Additional Family Medical History / Comment(s): LUNG CANCER. Father Family Medical History: Cancer Additional Family Medical History / Comment(s): MELANOMA/BRAIN CANCER. Medications and Allergies Home Medications Medication Instructions Recorded Confirmed Type Aspirin EC [Ecotrin Low Dose] 81 mg PO DAILY 11/08/18 06/04/24 History Ergocalciferol (Vitamin D2) 1,250 mcg PO Q14D 06/25/20 06/04/24 History [Drisdol (50,000 Iu)] allopurinoL [Zyloprim] 200 mg PO DAILY 10/21/21 06/04/24 History Dapagliflozin Propanediol [Farxiga] 10 mg PO DAILY 11/05/21 06/04/24 History Gabapentin [Neurontin] 100 mg PO HS 06/30/23 06/04/24 History Atorvastatin [Lipitor] 40 mg PO DAILY 07/25/23 06/04/24 History Insulin Aspart [NovoLOG Flexpen] 30 - 40 units SQ AC-TID 08/16/23 06/04/24 History Escitalopram [Lexapro] 10 mg PO DAILY 02/10/24 06/04/24 History Pantoprazole [Protonix] 40 mg PO DAILY 02/10/24 06/04/24 History calcitrioL 0.25 mcg PO MO 02/10/24 06/04/24 History Metoprolol Succinate (ER) [Toprol 25 mg PO DAILY #30 tab 02/19/24 06/04/24 Rx XL] Butalb/APAP/Caff 50-325-40Mg 1 tab PO Q4H PRN 04/25/24 06/04/24 History [Fioricet 50-325-40] Ferrous Sulfate [Iron (65 MG 325 mg PO DAILY 04/25/24 06/04/24 History Elemental)] Insulin Glargine,Hum.rec.anlog 50 units SQ HS 04/25/24 06/04/24 History [Nava Jose] Triamcinolone 0.5% Cream [Kenalog 1 applic TOPICAL BID PRN 04/25/24 06/04/24 History 0.5% Cream] Acetaminophen Tab [Tylenol] 650 mg PO Q6HR PRN tab 04/28/24 06/04/24 Rx Clopidogrel [Plavix] 75 mg PO DAILY 30 Days #30 tablet 04/28/24 06/04/24 Rx Isosorbide Mononitrate ER [Imdur] 60 mg PO DAILY #30 tab 04/28/24 06/04/24 Rx Ranolazine [Ranexa] 500 mg PO Q12HR #60 tab 04/28/24 06/04/24 Rx amLODIPine [Norvasc] 10 mg PO DAILY #30 tab 04/28/24 06/04/24 Rx hydrALAZINE HCL [Apresoline] 25 mg PO TID 05/28/24 06/04/24 History Collagenase [Santyl Ointment] 1 applic TOPICAL DAILY each 05/31/24 06/04/24 Rx Sodium Bicarbonate Tab 650 mg PO BID #60 tab 05/31/24 06/04/24 Rx Torsemide [Demadex] 40 mg PO DAILY #0 05/31/24 06/04/24 Rx Albuterol Sulfate [Albuterol 1 puff INHALATION RT-Q4H 06/04/24 06/04/24 History Sulfate Hfa] Nuzyra 150mg See Taper PO HS 06/04/24 06/04/24 History Allergies Allergy/AdvReac Type Severity Reaction Status Date / Time ibuprofen [From Motrin] Allergy Anaphylaxis Verified 06/04/24 16:39 Physical Exam Vitals: Vital Signs Temp Pulse Resp BP Pulse Ox 06/05/24 08:35 75 18 06/05/24 08:26 78 18 94 L 06/05/24 08:09 98.1 F 73 22 148/58 96 06/05/24 06:30 73 20 137/79 93 L 06/05/24 04:12 72 06/05/24 03:59 71 06/05/24 03:24 71 18 129/77 95 06/05/24 01:22 64 06/05/24 01:12 65 06/05/24 01:00 67 16 130/70 97 06/04/24 18:31 97.7 F 67 22 132/53 97 06/04/24 18:25 64 18 06/04/24 18:18 65 18 06/04/24 17:04 22 06/04/24 16:50 68 22 124/71 94 L 06/04/24 14:38 97.8 F 71 22 132/75 84 L Results CBC & Chem 7: 06/04/24 15:26 06/04/24 15:26 Labs: Abnormal Lab Results - Last 24 Hours (Table) 06/04/24 06/04/24 06/04/24 Range/Units 15:26 15:26 20:10 RBC 3.34 L (4.30-5.90) m/uL Hgb 10.4 L (13.0-17.5) gm/dL Hct 32.5 L (39.0-53.0) % RDW 17.2 H (11.5-15.5) % Neutrophils # 8.1 H (1.3-7.7) k/uL Lymphocytes # 0.4 L (1.0-4.8) k/uL Sodium 135 L (137-145) mmol/L Carbon Dioxide 18 L (22-30) mmol/L BUN 66 H (9-20) mg/dL Creatinine 2.71 H (0.66-1.25) mg/dL Glucose 139 H (74-99) mg/dL POC Glucose (mg/dL) 147 H (70-110) mg/dL
[2024-06-05 21:10] LABS: Glucose,Whole Blood 167 mg/dL (70-110)
[2024-06-06 06:02] LABS: Glucose,Whole Blood 93 mg/dL (70-110)
[2024-06-06 06:37] LABS: African American GFR (CKD) 24 (>60 ml/min/1.73 sqM); Anion Gap 14 mmol/L; Blood Urea Nitrogen 66 mg/dL (9-20); Calcium 9.5 mg/dL (8.4-10.2); Carbon Dioxide 24 mmol/L (22-30); Chloride 102 mmol/L (98-107); Glucose 92 mg/dL (74-99); Non-African American GFR(CKD) 21 (>60 ml/min/1.73 sqM); Potassium 4.6 mmol/L (3.5-5.1); Sodium 140 mmol/L (137-145)
--- NOTE | 2024-06-06 06:51 | P.CNPUL ---
History of Present Illness Consult date: 06/06/24 Requesting physician: Jamaal Shea Reason for consult: dyspnea Chief complaint: Shortness of breath History of present illness: Patient is a 73-year-old male with past medical history significant for hypertension, hyperlipidemia, coronary artery disease with previous PCI/stenting, heart failure, chronic kidney disease, diabetes mellitus, chronic right heel wound, ulcerative colitis with previous colectomy and ileostomy. Of note, patient had a recent hospitalization late May and was just discharged 05/31/2024 for CHF exacerbation. Echocardiogram done during this hospitalization estimating a preserved left ventricular ejection fraction of 55 to 60%. Limited study, but no acute valvular abnormalities reported. Presented the emergency department on 06/04/2024 with a chief complaint of shortness of breath, mostly on exertion. Chest x-ray showing cardiomegaly, mild pulmonary vascular congestion, and a small pleural effusion on the left. NT proBNP elevated 2550. Currently receiving Lasix 80 mg twice daily. CBC: WBC count 10.2, hemoglobin 10.4, hematocrit 32.5, platelets 374. CMP: Sodium 135, potassium 4.6, chloride 101, serum bicarb 18, BUN 66, creatinine 2.71, glucose 1 39. Troponin is less than 0.012. Patient currently being evaluated on the general medical floor. Appears weak and deconditioned. He is resting in bed on 1 L/min nasal cannula. No respiratory distress noted. Complaining of a generalized headache, which he states is chronic. States that he has been short of breath on exertion for several months to almost 1 year. Particularly on exertion such as climbing stairs or walking to the bathroom. Denies history of COPD or asthma. Never tobacco smoker. Worked in an [employer] shop before he retired. Denies cough. Denies infectious-like symptoms. Current vital signs: Temperature 98 F, heart rate 78 bpm, blood pressure 145/54 mmHg, nontachypneic, SpO2 recorded at 91% on 1 L/min nasal cannula. Review of Systems Constitutional: Reports fatigue, Denies chills, Denies fever, Denies poor appetite, Denies weight gain, Denies weight loss Ears, nose, mouth and throat: Reports headache, Denies nasal congestion, Denies nasal discharge, Denies post-nasal drip, Denies sinus pain, Denies sinus pressure, Denies sore throat Cardiovascular: Reports dyspnea on exertion, Denies chest pain, Denies leg edema, Denies orthopnea, Denies palpitations, Denies paroxysmal nocturnal dyspnea, Denies syncope Respiratory: Reports wheezing, Denies congestion, Denies cough, Denies cough with sputum, Denies home oxygen Gastrointestinal: Denies abdominal pain, Denies change in bowel habits, Denies diarrhea, Denies nausea, Denies vomiting Genitourinary: Denies dysuria Musculoskeletal: Denies limitation of motion Integumentary: Reports rash Neurological: Denies seizures, Denies syncope Psychiatric: Denies anxiety, Denies depression Past Medical History Past Medical History: Cancer, Chest Pain / Angina, Diabetes Mellitus, Eye Disorder, GERD/Reflux, Hyperlipidemia, Hypertension, Osteoarthritis (OA), Prostate Disorder, Renal Disease Additional Past Medical History / Comment(s): HX OF ULCERATIVE COLITIS, ileostomy PARASTOMAL HERNIA, PROSTATE CA WITH RADIATION AND CHEMO IN 2020, LOW KIDNEY FUNCTION,Covid Dec 2022, Influenza A Jun 2023, eye condition, unsure of name. History of Any Multi-Drug Resistant Organisms: MRSA Date of last positivie culture/infection: 05/24/24 MDRO Source:: rt heel, scalp Past Surgical History: Appendectomy, Bowel Resection, Heart Catheterization, Heart Catheterization With Stent Additional Past Surgical History / Comment(s): COLECTOMY, RECTUM REMOVED, ELLIOTT CATARACTS removed, ILEOSTOMY, HERNIA SURGERY. Past Anesthesia/Blood Transfusion Reactions: No Reported Reaction Additional Past Anesthesia/Blood Transfusion Reaction / Comment(s): no problems with prior blood transfusions. Date of Last Stent Placement:: 08/01/2023 Past Psychological History: No Psychological Hx Reported Smoking Status: Never smoker Past Alcohol Use History: None Reported Past Drug Use History: None Reported - Past Family History Mother Family Medical History: Cancer Additional Family Medical History / Comment(s): LUNG CANCER. Father Family Medical History: Cancer Additional Family Medical History / Comment(s): MELANOMA/BRAIN CANCER. Medications and Allergies Home Medications Medication Instructions Recorded Confirmed Type Aspirin EC [Ecotrin Low Dose] 81 mg PO DAILY 11/08/18 06/04/24 History Ergocalciferol (Vitamin D2) 1,250 mcg PO Q14D 06/25/20 06/04/24 History [Drisdol (50,000 Iu)] allopurinoL [Zyloprim] 200 mg PO DAILY 10/21/21 06/04/24 History Dapagliflozin Propanediol [Farxiga] 10 mg PO DAILY 11/05/21 06/04/24 History Gabapentin [Neurontin] 100 mg PO HS 06/30/23 06/04/24 History Atorvastatin [Lipitor] 40 mg PO DAILY 07/25/23 06/04/24 History Insulin Aspart [NovoLOG Flexpen] 30 - 40 units SQ AC-TID 08/16/23 06/04/24 History Escitalopram [Lexapro] 10 mg PO DAILY 02/10/24 06/04/24 History Pantoprazole [Protonix] 40 mg PO DAILY 02/10/24 06/04/24 History calcitrioL 0.25 mcg PO MO 02/10/24 06/04/24 History Metoprolol Succinate (ER) [Toprol 25 mg PO DAILY #30 tab 02/19/24 06/04/24 Rx XL] Butalb/APAP/Caff 50-325-40Mg 1 tab PO Q4H PRN 04/25/24 06/04/24 History [Fioricet 50-325-40] Ferrous Sulfate [Iron (65 MG 325 mg PO DAILY 04/25/24 06/04/24 History Elemental)] Insulin Glargine,Hum.rec.anlog 50 units SQ HS 04/25/24 06/04/24 History [Nava Jose] Triamcinolone 0.5% Cream [Kenalog 1 applic TOPICAL BID PRN 04/25/24 06/04/24 History 0.5% Cream] Acetaminophen Tab [Tylenol] 650 mg PO Q6HR PRN tab 04/28/24 06/04/24 Rx Clopidogrel [Plavix] 75 mg PO DAILY 30 Days #30 tablet 04/28/24 06/04/24 Rx Isosorbide Mononitrate ER [Imdur] 60 mg PO DAILY #30 tab 04/28/24 06/04/24 Rx Ranolazine [Ranexa] 500 mg PO Q12HR #60 tab 04/28/24 06/04/24 Rx amLODIPine [Norvasc] 10 mg PO DAILY #30 tab 04/28/24 06/04/24 Rx hydrALAZINE HCL [Apresoline] 25 mg PO TID 05/28/24 06/04/24 History Collagenase [Santyl Ointment] 1 applic TOPICAL DAILY each 05/31/24 06/04/24 Rx Sodium Bicarbonate Tab 650 mg PO BID #60 tab 05/31/24 06/04/24 Rx Torsemide [Demadex] 40 mg PO DAILY #0 05/31/24 06/04/24 Rx Albuterol Sulfate [Albuterol 1 puff INHALATION RT-Q4H 06/04/24 06/04/24 History Sulfate Hfa] Nuzyra 150mg See Taper PO HS 06/04/24 06/04/24 History Allergies Allergy/AdvReac Type Severity Reaction Status Date / Time ibuprofen [From Motrin] Allergy Anaphylaxis Verified 06/04/24 16:39 Physical Exam Vitals: Vital Signs Temp Pulse Pulse Resp BP BP Pulse Ox 06/06/24 02:06 98.0 F 78 19 145/54 91 L 06/05/24 19:32 97.4 F L 67 19 143/55 93 L 06/05/24 17:16 71 16 134/54 06/05/24 16:53 68 18 06/05/24 16:43 97.4 F L 69 22 134/60 93 L 06/05/24 16:41 69 18 06/05/24 13:06 69 18 121/61 96 06/05/24 12:04 68 18 06/05/24 11:49 67 20 06/05/24 11:02 72 22 122/66 96 06/05/24 08:35 75 18 06/05/24 08:26 78 18 94 L 06/05/24 08:09 98.1 F 73 22 148/58 96 06/05/24 06:30 73 20 137/79 93 L Intake and Output 06/05/24 06/05/24 06/06/24 14:59 22:59 06:59 Other: Weight 113.398 kg GENERAL EXAM: Alert, 73-year-old obese male, lying flat in bed, comfortable in no apparent distress. HEAD: Normocephalic and atraumatic EYES: Normal reaction of pupils, equal size. NOSE: Clear with pink turbinates. THROAT: No erythema or exudates. NECK: No masses, no JVD. CHEST: No chest wall deformity. LUNGS: Equal air entry with diminished lung sounds throughout. No crackles, wheeze, rhonchi or focal dullness. On 1 L/min nasal cannula. No conversational dyspnea or accessory muscle use.. CVS: S1 and S2 normal with no audible murmur, regular rhythm. No extra heart sounds ABDOMEN: No hepatosplenomegaly, active bowel sounds, no guarding or rigidity. Functional ileostomy SPINE: No scoliosis or deformity SKIN: Generalized erythemic plaques involving upper extremities, chest, back CENTRAL NERVOUS SYSTEM: No focal deficits, tone is normal in all 4 extremities. EXTREMITIES: There is no peripheral edema, clubbing, or cyanosis. Peripheral pulses are intact. Right foot is wrapped with Lloyd bandage. Results - Laboratory Findings CBC and BMP: 06/04/24 15:26 06/06/24 05:52 PT/INR, D-dimer PT 10.4 sec (10.0-12.5) 06/04/24 16:32 INR 0.9 (<1.2) 06/04/24 16:32 Abnormal lab findings: Abnormal Labs 06/04/24 06/04/24 06/04/24 15:26 15:26 20:10 RBC 3.34 L Hgb 10.4 L Hct 32.5 L RDW 17.2 H Neutrophils # 8.1 H Lymphocytes # 0.4 L Sodium 135 L Carbon Dioxide 18 L BUN 66 H Creatinine 2.71 H Glucose 139 H POC Glucose (mg/dL) 147 H 06/05/24 06/05/24 06/05/24 13:02 13:46 16:14 RBC Hgb Hct RDW Neutrophils # Lymphocytes # Sodium Carbon Dioxide BUN Creatinine Glucose POC Glucose (mg/dL) 50 L 67 L 132 H 06/05/24 06/05/24 17:19 21:09 RBC Hgb Hct RDW Neutrophils # Lymphocytes # Sodium Carbon Dioxide BUN Creatinine Glucose POC Glucose (mg/dL) 152 H 167 H - Diagnostic Findings Chest x-ray: image reviewed Assessment and Plan Assessment: Acute exacerbation of diastolic congestive heart failure Acute hypoxemic respiratory failure, secondary to above Acute on chronic shortness of breath History of CAD with previous PCI Diabetes mellitus Hypertension History of hyperlipidemia Acute on chronic kidney disease Chronic cephalgia History of UC with previous colectomy and ileostomy History of prostate cancer status post chemoradiation Chronic right heel wound, status post debridement on 05/28/2024 Obesity, with a BMI of 40.4 kg/m Never tobacco smoker Plan: Patient's medications, labs, chest x-ray reviewed Continue supplemental oxygen to maintain oxygen saturation of 92% or greater Continues on Lasix 80 mg twice daily 1500 mL daily fluid restriction Cardiology is following Nephrology also consulted No documented or known pulmonary disease. If symptoms persist, could consider follow-up in the pulmonary office for full PFT on discharge Case will be reviewed with Dr. Dacosta I have personally seen and examined the patient, performed the documentation and the assessment and plan as written. Number of minutes spent on the visit:20 Time with Patient: Greater than 30
[2024-06-06 11:36] LABS: Glucose,Whole Blood 130 mg/dL (70-110)
--- NOTE | 2024-06-06 12:53 | P.NPCON ---
History of Present Illness - Reason for Consult chronic renal failure - History of Present Illness Patient is a 73-year-old male with history of hypertension, type 2 diabetes, chronic kidney disease stage IV with baseline creatinine around 1.6 to 1.8 mg/dL. Patient has underlying CHF with preserved ejection fraction of 55 to 60%. He was recently discharged from the hospital on 05/31/2024 after hospitali zation for acute exacerbation of CHF. He is admitted this time with complaints of shortness of breath and low oxygen saturation of 70 to 80% at home. No history of fever or chills nausea vomiting or diarrhea. Patient reports significant shortness of breath on exertion. Chest x-ray shows pulmonary vascular congestion. Serum creatinine was 2.7 yesterday and it is 2.8 today. Patient states he has been voiding. Maintained on IV Lasix at 80 mg every 12 hours. He remains quite short of breath. Past Medical History Past Medical History: Cancer, Chest Pain / Angina, Diabetes Mellitus, Eye Disorder, GERD/Reflux, Hyperlipidemia, Hypertension, Osteoarthritis (OA), Prostate Disorder, Renal Disease Additional Past Medical History / Comment(s): HX OF ULCERATIVE COLITIS, ileostomy PARASTOMAL HERNIA, PROSTATE CA WITH RADIATION AND CHEMO IN 2020, LOW KIDNEY FUNCTION,Covid Dec 2022, Influenza A Jun 2023, eye condition, unsure of name. History of Any Multi-Drug Resistant Organisms: MRSA Date of last positivie culture/infection: 05/24/24 MDRO Source:: rt heel, scalp Past Surgical History: Appendectomy, Bowel Resection, Heart Catheterization, Heart Catheterization With Stent Additional Past Surgical History / Comment(s): COLECTOMY, RECTUM REMOVED, ELLIOTT CATARACTS removed, ILEOSTOMY, HERNIA SURGERY. Past Anesthesia/Blood Transfusion Reactions: No Reported Reaction Additional Past Anesthesia/Blood Transfusion Reaction / Comment(s): no problems with prior blood transfusions. Date of Last Stent Placement:: 08/01/2023 Past Psychological History: No Psychological Hx Reported Smoking Status: Never smoker Past Alcohol Use History: None Reported Past Drug Use History: None Reported - Past Family History Mother Family Medical History: Cancer Additional Family Medical History / Comment(s): LUNG CANCER. Father Family Medical History: Cancer Additional Family Medical History / Comment(s): MELANOMA/BRAIN CANCER. Medications and Allergies Home Medications Medication Instructions Recorded Confirmed Type Aspirin EC [Ecotrin Low Dose] 81 mg PO DAILY 11/08/18 06/04/24 History Ergocalciferol (Vitamin D2) 1,250 mcg PO Q14D 06/25/20 06/04/24 History [Drisdol (50,000 Iu)] allopurinoL [Zyloprim] 200 mg PO DAILY 10/21/21 06/04/24 History Dapagliflozin Propanediol [Farxiga] 10 mg PO DAILY 11/05/21 06/04/24 History Gabapentin [Neurontin] 100 mg PO HS 06/30/23 06/04/24 History Atorvastatin [Lipitor] 40 mg PO DAILY 07/25/23 06/04/24 History Insulin Aspart [NovoLOG Flexpen] 30 - 40 units SQ AC-TID 08/16/23 06/04/24 History Escitalopram [Lexapro] 10 mg PO DAILY 02/10/24 06/04/24 History Pantoprazole [Protonix] 40 mg PO DAILY 02/10/24 06/04/24 History calcitrioL 0.25 mcg PO MO 02/10/24 06/04/24 History Metoprolol Succinate (ER) [Toprol 25 mg PO DAILY #30 tab 02/19/24 06/04/24 Rx XL] Butalb/APAP/Caff 50-325-40Mg 1 tab PO Q4H PRN 04/25/24 06/04/24 History [Fioricet 50-325-40] Ferrous Sulfate [Iron (65 MG 325 mg PO DAILY 04/25/24 06/04/24 History Elemental)] Insulin Glargine,Hum.rec.anlog 50 units SQ HS 04/25/24 06/04/24 History [Touramesh Solostar] Triamcinolone 0.5% Cream [Kenalog 1 applic TOPICAL BID PRN 04/25/24 06/04/24 History 0.5% Cream] Acetaminophen Tab [Tylenol] 650 mg PO Q6HR PRN tab 04/28/24 06/04/24 Rx Clopidogrel [Plavix] 75 mg PO DAILY 30 Days #30 tablet 04/28/24 06/04/24 Rx Isosorbide Mononitrate ER [Imdur] 60 mg PO DAILY #30 tab 04/28/24 06/04/24 Rx Ranolazine [Ranexa] 500 mg PO Q12HR #60 tab 04/28/24 06/04/24 Rx amLODIPine [Norvasc] 10 mg PO DAILY #30 tab 04/28/24 06/04/24 Rx hydrALAZINE HCL [Apresoline] 25 mg PO TID 05/28/24 06/04/24 History Collagenase [Santyl Ointment] 1 applic TOPICAL DAILY each 05/31/24 06/04/24 Rx Sodium Bicarbonate Tab 650 mg PO BID #60 tab 05/31/24 06/04/24 Rx Torsemide [Demadex] 40 mg PO DAILY #0 05/31/24 06/04/24 Rx Albuterol Sulfate [Albuterol 1 puff INHALATION RT-Q4H 06/04/24 06/04/24 History Sulfate Hfa] Nuzyra 150mg See Taper PO HS 06/04/24 06/04/24 History Allergies Allergy/AdvReac Type Severity Reaction Status Date / Time ibuprofen [From Motrin] Allergy Anaphylaxis Verified 06/04/24 16:39 Physical Exam Vitals: Vital Signs Temp Pulse Pulse Resp BP BP Pulse Ox 06/06/24 11:47 88 06/06/24 11:32 86 06/06/24 09:45 18 06/06/24 08:09 84 06/06/24 07:58 88 06/06/24 06:55 97.6 F 77 18 135/64 90 L 06/06/24 02:06 98.0 F 78 19 145/54 91 L 06/05/24 19:32 97.4 F L 67 19 143/55 93 L 06/05/24 17:16 71 16 134/54 06/05/24 16:53 68 18 06/05/24 16:43 97.4 F L 69 22 134/60 93 L 06/05/24 16:41 69 18 06/05/24 13:06 69 18 121/61 96 Patient is awake, comfortable, no acute distress Examination of the heart S1 and S2 Examination of the lungs bilateral breath sounds are heard, bilateral wheezing heard Abdomen is soft nontender Examination of lower extremities shows edema 1+ bilaterally [employer] exam grossly intact Results - Lab Results Most recent lab results Calcium 9.5 mg/dL (8.4-10.2) 06/06/24 05:52 06/04/24 15:26 06/06/24 05:52 Assessment and Plan Assessment: 1. Acute kidney injury, nonoliguric, cardiorenal rule out urine retention. Check UA it has been benign in March 2024. Check ultrasound of the kidneys 2. Acute on chronic diastolic CHF 3. Volume overload 4. Hypertension with CKD stage IV 5. Acute hypoxic respiratory failure secondary to CHF 6. Coronary artery disease with history of coronary stents 7. Metabolic acidosis maintained on oral sodium bicarb. 8. Recent right heel wound status post debridement Plan: Continue with IV Lasix Check bladder scan rule out urine retention Check UA Check ultrasound of the kidneys Decrease oral sodium bicarb Continue calcitriol Thank you for the consultation. We will continue to follow the patient with you during his hospitalization
--- NOTE | 2024-06-06 13:39 | US ---
EXAMINATION TYPE: US kidneys/renal and bladder DATE OF EXAM: 06/06/2024 COMPARISON: 10/21/21 CLINICAL INDICATION: Male, 73 years old with history of pat; pat TECHNIQUE: Grayscale imaging of the bilateral kidneys and urinary bladder: FINDINGS: EXAM MEASUREMENTS: Right Kidney: 10.3 x 5.5 x 5.6 cm Left Kidney: 11.0 x 5.2 x 5.3 cm Right Kidney: No hydronephrosis or masses seen Left Kidney: No hydronephrosis or masses seen Bladder: appears wnl, slightly limited due to overlying bowel gas Bilateral Jets seen: no, due to bowel gas There is no evidence for hydronephrosis at this point in time. No nephrolithiasis is seen. No brando s are identified. The urinary bladder is anechoic. IMPRESSION: No evidence for obstructive uropathy or renal calculus. [facility], , 06/06/2024 1:36 PM
--- NOTE | 2024-06-06 14:07 | P.PN ---
Subjective Progress Note Date: 06/06/24 Consult reason: congestive heart failure History of present illness: This is 73-year-old male patient of Dr. Bales with past medical history of coronary artery disease status post PCI of the LAD and second diagonal branch, known severe disease involving the OM1, heart failure with preserved EF, diabetes, hypertension, dyslipidemia, chronic kidney disease, dilated ascending aorta, history of colectomy and overweight. We have been asked to evaluate the patient for CHF. Patient was recently hospitalized 05/28 - 05/31 and was treated for CHF and acute kidney injury. Patient states that when he went home he did not feel any better related to shortness of breath and when he had come in. He states he continues to have shortness of breath which is worsening and also has a little lightheadedness and dizziness. He complains of chest pain across the mid chest and also some left lower abdominal pain. He denies cough but he states in the morning he has sputum production. No significant lower extremity edema. He does have a chronic wound to the right foot with the boot in place. Blood pressure 121/61, heart rate 69, pulse ox 96% on 2 and half liters nasal cannula. Patient has been started on IV Lasix 80 mg every 12 hours. -EKG: Atrial fibrillation [address] changes -Chest x-ray: Correlate for volume overload -Laboratory studies: WBC 10.2, hemoglobin 10.4, platelet count 374. Sodium 135, potassium 4.6, BUN 66 and creatinine 2.71. Troponin negative x 1. proBNP 2550. -Home cardiac medications: Amlodipine 10 mg daily, aspirin 81 mg daily, atorvastatin 40 mg daily, Plavix 75 mg daily, Farxiga 10 mg daily, hydralazine 2 5 mg 3 times daily, Imdur 60 mg daily, Toprol XL 25 mg daily, Ranexa 500 mg every 12 hours, Demadex 40 mg daily. -Echocardiogram from 05/28/2024 revealed technical difficult study minimal mitral and tricuspid regurgitation. No pericardial effusion. -Cardiac catheterization history: April 26, 2024 revealing patent stent in the mid LAD. Late stent thrombosis of the second diagonal branch of the LAD, severe disease involving OM1 appeared unchanged compared to before, attempted balloon angioplasty was performed of second diagonal branch with suboptimal results 2/6 Patient seen and examined. He states he is feeling a little bit better from yesterday. He has noted to have worsening of his renal function and we will add an consult with nephrology. Blood pressure 135/64, heart rate 77, pulse ox 90% on 2 L nasal cannula. Electrolytes are normal, BUN 66 and creatinine 2.88. Patient has been maintained on IV Lasix. He still has lower extremity edema. Patient's is very concerned that his dressing has not been changed on his right foot and we will asked to make sure Dr. Ontiveros and wound care team is involved. Physical examination: Gen: This is a 73-year-old male in no acute respiratory distress. VS: reviewed HEENT: Head is atraumatic, normocephalic. Pupils equal, round. Sclerae is anicteric. NECK: Supple. No JVD. LUNGS: Decreased air exchange with bilateral expiratory wheeze. No intercostal retractions. HEART: Regular rate and rhythm. No murmur. ABDOMEN: Soft No tenderness. Colostomy right lower quadrant. EXTREMITIES: Minimal pedal edema. Boot in place to the right foot. No calf tenderness. NEUROLOGICAL: Patient is awake, alert and oriented x3. Assessment: Difficulty breathing Acute on chronic diastolic heart failure History of coronary artery disease with PCI of the LAD and second diagonal with known severe disease involving the OM1 Diabetes Hypertension Dyslipidemia Chronic kidney disease with acute kidney injury Dilated ascending aorta History of colectomy Plan: Continue patient's home cardiac medications Continue patient on IV Lasix 80 mg every 12 hours Monitor GABRIEL, daily weights, electrolytes and renal function No need to repeat echocardiogram Add consult for nephrology for acute kidney injury Further recommendations to follow based upon clinical course Nurse practitioner note has been reviewed, I agree with documented findings and plan of care. Patient was seen and examined. Objective - Vital Signs Vital signs: Vital Signs Temp 97.6 F 06/06/24 06:55 Pulse 84 06/06/24 08:09 Resp 18 06/06/24 06:55 BP 135/64 06/06/24 06:55 Pulse Ox 90 L 06/06/24 06:55 FiO2 Intake & Output 06/05/24 06/06/24 06/06/24 18:59 06:59 18:59 Weight 113.398 kg - Labs CBC & Chem 7: 06/04/24 15:26 06/06/24 05:52 Labs: Abnormal Lab Results - Last 24 Hours (Table) 06/05/24 06/05/2406/05/25 Range/Units 13:02 13:46 16:14 BUN (9-20) mg/dL Creatinine (0.66-1.25) mg/dL POC Glucose (mg/dL) 50 L 67 L 132 H (70-110) mg/dL 06/05/24 06/05/24 06/06/24 Range/Units 17:19 21:09 05:52 BUN 66 H (9-20) mg/dL Creatinine 2.88 H (0.66-1.25) mg/dL POC Glucose (mg/dL) 152 H 167 H (70-110) mg/dL
[2024-06-06] MEDS ORDERED: BUTALB/APAP/CAFF 50-325-40MG TAB PO PRN (14:09)
[2024-06-06 14:17] LABS: Appearance,Urine Clear (Clear); Bilirubin,Urine Negative (Negative); Blood,Urine Negative (Negative); Color,Urine Light Yellow; Glucose,Urine (UA) Trace (Negative); Ketones,Urine Negative (Negative); Leukocyte Esterase,Urine Negative (Negative); Nitrite,Urine Negative (Negative); Protein,Urine Negative (Negative); Urobilinogen,Urine <2.0 mg/dL (<2.0)
[2024-06-06] MEDS: CEFEPIME 2 GM in SODIUM CHLORIDE 0.9% 100 ML IVPB STA (14:27)
[2024-06-06] MEDS: COLLAGENASE 250 UNIT/GM OINTMENT 30 GM TUBE TOPICAL SCH (14:29)
--- NOTE | 2024-06-06 14:36 | XR ---
EXAMINATION TYPE: XR foot limited RT DATE OF EXAM: 06/06/2024 2:24 PM COMPARISON: None CLINICAL INDICATION: Male, 73 years old with history of Right heel diabetic foot ulcer; PHH, pain TECHNIQUE: XR foot limited RT examined in the AP, oblique, and lateral projections. FINDINGS: Soft tissue swelling present with ulcer at the heel. No evidence of any acute osseous pathology. Calc aneal plantar spurring is present. Calcaneal Achilles enthesophyte. Atherosclerosis of the arterial v asculature. Multifocal degeneration changes throughout the joints of the foot with osteophyte formati on and joint space narrowing. IMPRESSION: 1. No evidence for osseous erosion. No evidence of acute fracture. 2. Multifocal degeneration changes throughout the joints of the foot. [facility], , 06/06/2024 2:34 PM
[2024-06-06 16:37] LABS: Glucose,Whole Blood 109 mg/dL (70-110)
[2024-06-06] MEDS: DAPTOmycin 350 MG in SODIUM CHLORIDE 0.9% 50 ML IVPB SCH (18:20)
[2024-06-06 20:33] LABS: Glucose,Whole Blood 79 mg/dL (70-110)
[2024-06-06] MEDS: CEFEPIME 1 GM in SODIUM CHLORIDE 0.9% 50 ML IVPB SCH (23:35)
--- NOTE | 2024-06-07 03:26 | PN ---
PROGRESS NOTE DATE OF SERVICE: 06/06/2024 SUBJECTIVE: This is a 73-year-old gentleman, who was admitted with acute on chronic CHF, also had a right heel wound. Dr. Jernigan has seen the patient. The patient is on diuretics and multiple other medications also. There is no history of any fever, rigors, or chills. PAST MEDICAL HISTORY: Reviewed. REVIEW OF SYSTEMS: A 14-point review of systems is negative except as mentioned earlier. CURRENT MEDICATIONS: Reviewed. PHYSICAL EXAMINATION: VITAL SIGNS: Pulse is 86, blood pressure 135/62, respirations 18. HEENT: Conjunctivae normal. NECK: No JVD. CARDIOVASCULAR: S1, S2. RESPIRATIONS: Breath sounds diminished at the bases. A few scattered rhonchi. ABDOMEN: Soft, nontender. LEGS: Right leg ulcer present. LABORATORY DATA: Creatinine 2.88. Rest of the labs noted. The chest x-ray on admission reviewed. ASSESSMENT: 1. Congestive heart failure acute exacerbation, acute on chronic diastolic dysfunction, ejection fraction of 55% to 60%. 2. Right heel infection. 3. Acute hypoxic respiratory failure. 4. Chronic obstructive pulmonary disease. 5. Chronic ostomy. 7. Anemia, normocytic. 8. Chronic kidney disease, stage 3. RECOMMENDATIONS AND DISCUSSION: This is a 73-year-old gentleman, who presented with multiple complex medical issues, we will monitor the patient closely. Continue the current management and continue symptomatic treatment. Continue with cautious diuresis. The patient is on 80 mg IV b.i.d. Avoid nephrotoxic medications. Guarded prognosis because of multiple complex medical issues and further recommendations to follow. We will monitor the blood sugars also. We will consult Podiatry, Infectious Disease as well. MMODL / IJN: [id number] / ANISA
[2024-06-07 06:12] LABS: Glucose,Whole Blood 109 mg/dL (70-110)
[2024-06-07 08:43] LABS: Basophils # (A) 0.06 X 10*3/uL (0.00-0.10); Basophils % (A) 0.6 %; Eosinophils # (A) 0.37 X 10*3/uL (0.04-0.35); Eosinophils % (A) 3.7 %; HCT 29.4 % (39.6-50.0); HGB 8.9 g/dL (13.0-17.0); Lymphocytes # (A) 0.43 X 10*3/uL (0.90-5.00); Lymphocytes % (A) 4.4 %; MCH 30.2 pg (27.0-32.0); MCHC 30.3 g/dL (32.0-37.0); MCV 99.7 FL (80.0-97.0); Mean Platelet Volume 10.4 FL (9.5-12.2); Monocytes # (A) 1.32 X 10*3/uL (0.20-1.00); Monocytes % (A) 13.4 %; NRBC Per 100 WBC 0.07 X 10*3/uL (0.00-0.01); Neutrophils # (A) 7.66 X 10*3/uL (1.80-7.70); Neutrophils % (A) 77.5 %; Platelet Count 366 X 10*3/uL (140-440); RBC 2.95 X 10*6/uL (4.40-5.60); RDW 17.8 % (11.5-14.5); WBC 9.88 X 10*3/uL (4.50-10.00)
[2024-06-07] MEDS: SODIUM BICARBONATE TAB 650 MG TAB PO SCH (08:56)
--- NOTE | 2024-06-07 08:56 | P.CONS ---
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 patient apparently recently did have a culture done on 05/24/2024 which did grow Proteus and MRSA and the patient was started initially on Bactrim DS that has to be discontinued as culture was showing Bactrim resistant subsequently he did have a repeat culture done on 05/29/2024 and the patient was switched over to Nuzyra even though the culture done on 05/29/2024 did shows a tetracycline resistant pathogen patient was able to get his medication filled but was not able to get this started and presented to [facility] 2 days ago for evaluation of increasing shortness of breath that apparently has been getting worse for the last few days infectious he was consulted today for management of his right heel wound and need for antibiotic therapy patient denies having any fever or any chills and no fever have been recorded during this hospital stay patient was not tachycardic hypotensive mildly hypoxic currently on 3 L nasal cannula oxygen patient did have white count of 10.2 with a left shift BUN and creatinine has been elevated liver isms are normal urine has been negative and no culture done during this admission patient did have diabetic neuropathy and denies having any pain to the right heel wound area he had this chronic wound for couple of months now and has been treated with multiple modalities that are very clear about the last treatment provided or any foul-smelling drainage from it Review of Systems Positive point and negatives has been mentioned in the HPI, complete review of systems was performed and all other systems are negative Past Medical History Past Medical History: Cancer, Chest Pain / Angina, Diabetes Mellitus, Eye Disorder, GERD/Reflux, Hyperlipidemia, Hypertension, Osteoarthritis (OA), Pros turner Disorder, Renal Disease Additional Past Medical History / Comment(s): HX OF ULCERATIVE COLITIS, ileostomy PARASTOMAL HERNIA, PROSTATE CA WITH RADIATION AND CHEMO IN 2020, LOW KIDNEY FUNCTION,Covid Dec 2022, Influenza A Jun 2023, eye condition, unsure of name. History of Any Multi-Drug Resistant Organisms: MRSA Year Discovered:: 05/24/24 MDRO Source:: rt heel, scalp Past Surgical History: Appendectomy, Bowel Resection, Heart Catheterization, Heart Catheterization With Stent Additional Past Surgical History / Comment(s): COLECTOMY, RECTUM REMOVED, ELLIOTT CATARACTS removed, ILEOSTOMY, HERNIA SURGERY. Past Anesthesia/Blood Transfusion Reactions: No Reported Reaction Additional Past Anesthesia/Blood Transfusion Reaction / Comm: no problems with prior blood transfusions. Date of Last Stent Placement:: 08/01/2023 Past Psychological History: No Psychological Hx Reported Smoking Status: Never smoker Past Alcohol Use History: None Reported Past Drug Use History: None Reported - Past Family History Mother Family Medical History: Cancer Additional Family Medical History / Comment(s): LUNG CANCER. Father Family Medical History: Cancer Additional Family Medical History / Comment(s): MELANOMA/BRAIN CANCER. Medications and Allergies Home Medications Medication Instructions Recorded Confirmed Type Aspirin EC [Ecotrin Low Dose] 81 mg PO DAILY 11/08/18 06/04/24 History Ergocalciferol (Vitamin D2) 1,250 mcg PO Q14D 06/25/20 06/04/24 History [Drisdol (50,000 Iu)] allopurinoL [Zyloprim] 200 mg PO DAILY 10/21/21 06/04/24 History Dapagliflozin Propanediol [Farxiga] 10 mg PO DAILY 11/05/21 06/04/24 History Gabapentin [Neurontin] 100 mg PO HS 06/30/23 06/04/24 History Atorvastatin [Lipitor] 40 mg PO DAILY 07/25/23 06/04/24 History Insulin Aspart [NovoLOG Flexpen] 30 - 40 units SQ AC-TID 08/16/23 06/04/24 History Escitalopram [Lexapro] 10 mg PO DAILY 02/10/24 06/04/24 History Pantoprazole [Protonix] 40 mg PO DAILY 02/10/24 06/04/24 History calcitrioL 0.25 mcg PO MO 02/10/24 06/04/24 History Metoprolol Succinate (ER) [Toprol 25 mg PO DAILY #30 tab 02/19/24 06/04/24 Rx XL] Butalb/APAP/Caff 50-325-40Mg 1 tab PO Q4H PRN 04/25/24 06/04/24 History [Fioricet 50-325-40] Ferrous Sulfate [Iron (65 MG 325 mg PO DAILY 04/25/24 06/04/24 History Elemental)] Insulin Glargine,Hum.rec.anlog 50 units SQ HS 04/25/24 06/04/24 History [Nava Solostnatalie] Triamcinolone 0.5% Cream [Kenalog 1 applic TOPICAL BID PRN 04/25/24 06/04/24 History 0.5% Cream] Acetaminophen Tab [Tylenol] 650 mg PO Q6HR PRN tab 04/28/24 06/04/24 Rx Clopidogrel [Plavix] 75 mg PO DAILY 30 Days #30 tablet 04/28/24 06/04/24 Rx Isosorbide Mononitrate ER [Imdur] 60 mg PO DAILY #30 tab 04/28/24 06/04/24 Rx Ranolazine [Ranexa] 500 mg PO Q12HR #60 tab 04/28/24 06/04/24 Rx amLODIPine [Norvasc] 10 mg PO DAILY #30 tab 04/28/24 06/04/24 Rx hydrALAZINE HCL [Apresoline] 25 mg PO TID 05/28/24 06/04/24 History Collagenase [Santyl Ointment] 1 applic TOPICAL DAILY each 05/31/24 06/04/24 Rx Sodium Bicarbonate Tab 650 mg PO BID #60 tab 05/31/24 06/04/24 Rx Torsemide [Demadex] 40 mg PO DAILY #0 05/31/24 06/04/24 Rx Albuterol Sulfate [Albuterol 1 puff INHALATION RT-Q4H 06/04/24 06/04/24 History Sulfate Hfa] Nuzyra 150mg See Taper PO HS 06/04/24 06/04/24 History Allergies Allergy/AdvReac Type Severity Reaction Status Date / Time ibuprofen [From Motrin] Allergy Anaphylaxis Verified 06/04/24 16:39 Physical Exam Vitals: Vital Signs Temp Pulse Pulse Resp BP BP Pulse Ox 06/06/24 11:47 88 06/06/24 11:32 86 06/06/24 09:45 18 06/06/24 08:09 84 06/06/24 07:58 88 06/06/24 06:55 97.6 F 77 18 135/64 90 L 06/06/24 02:06 98.0 F 78 19 145/54 91 L 06/05/24 19:32 97.4 F L 67 19 143/55 93 L 06/05/24 17:16 71 16 134/54 06/05/24 16:53 68 18 06/05/24 16:43 97.4 F L 69 22 134/60 93 L 06/05/24 16:41 69 18 06/05/24 13:06 69 18 121/61 96 06/05/24 12:04 68 18 GENERAL DESCRIPTION: Elderly male lying in bed, no distress. No tachypnea or accessory muscle of respiration use. HEENT: Shows Pallor , no scleral icterus. Oral mucous membrane is dry. NECK: Trachea central, no thyromegaly. LUNGS: Unlabored breathing. Decreased breath sound at the base HEART: S1, S2, regular rate and rhythm. No loud murmur ABDOMEN: Soft, no tenderness , guarding or rigidity, no organomegaly EXTREMITIES: Right heel with a necrotic wound with some drainage no foul- smelling was noticed. SKIN: No rash, no masses palpable. NEUROLOGICAL: The patient is awake, alert, oriented x3, mood and affect normal. Results CBC & Chem 7: 06/07/24 04:26 06/06/24 05:52 Labs: Abnormal Lab Results - Last 24 Hours (Table) 06/05/24 06/05/24 06/05/24 Range/Units 13:02 13:46 16:14 BUN (9-20) mg/dL Creatinine (0.66-1.25) mg/dL POC Glucose (mg/dL) 50 L 67 L 132 H (70-110) mg/dL 06/05/24 06/05/24 06/06/24 Range/Units 17:19 21:09 05:52 BUN 66 H (9-20) mg/dL Creatinine 2.88 H (0.66-1.25) mg/dL POC Glucose (mg/dL) 152 H 167 H (70-110) mg/dL 06/06/24 Range/Units 11:35 BUN (9-20) mg/dL Creatinine (0.66-1.25) mg/dL POC Glucose (mg/dL) 130 H (70-110) mg/dL Assessment and Plan (1) Diabetic infection of right foot Current Visit: Yes Status: Acute Code(s): E11.628 - TYPE 2 DIABETES MELLITUS WITH OTHER SKIN COMPLICATIONS; L08.9 - LOCAL INFECTION OF THE SKIN AND SUBCUTANEOUS TISSUE, UNSP SNOMED Code(s): 463915668 (2) MRSA (methicillin resistant staph aureus) culture positive Current Visit: Yes Status: Acute Code(s): Z22.322 - CARRIER OR SUSPECTED CARRIER OF METHICILLIN RESIS STAPH SNOMED Code(s): 380675544 (3) Diabetic ulcer of right foot Current Visit: No Status: Acute Code(s): E11.621 - TYPE 2 DIABETES MELLITUS WITH FOOT ULCER; L97.519 - NON-PRS CHRONIC ULCER OTH PRT RIGHT FOOT W UNSP SEVERITY SNOMED Code(s): 113173352 (4) Stage III pressure ulcer of right heel Current Visit: No Status: Acute Code(s): L89.613 - PRESSURE ULCER OF RIGHT HEEL, STAGE 3 SNOMED Code(s): 10801347516175 Plan: 1patient with a chronic nonhealing wound to the right heel which he has for couple of months the wound looks deep with a recent culture positive for Proteus and MRSA concerning for wound infection and question for possible deeper infection such as osteomyelitis as wound has been there for couple of months now 2-patient did have elevated creatinine would be high risk of nephrotoxicity from vancomycin which is typically used for MRSA infection 3-we will obtain x-rays of the right heel to make sure evidence of any bony changes may need bone scan to rule out osteomyelitis will also check inflammatory markers 4-we will advise local wound care with the Santyl followed by moist dressing keep the area of the pressure change daily 5-patient was empirically started on daptomycin and cefepime on the basis of culture done on 05/29/2024 more likely the same pathogen causing this diabetic foot infection Family bedside multiple question concern answered We will follow on clinical condition and cultures to further adjust medication if needed Thank you for this consultation we will follow the patient along with you Dictation was produced using [employer] software. please excuse any grammatical, word or spelling errors. Time with Patient: Greater than 30
[2024-06-07 08:59] LABS: ALT 18 U/L (10-49); AST 22 U/L (14-35); Albumin 3.6 g/dL (3.8-4.9); Albumin/Globulin Ratio 1.06 Ratio (1.60-3.17); Alkaline Phosphatase 109 U/L (41-126); BUN/Creat Ratio 24.88 Ratio (12.00-20.00); Blood Urea Nitrogen 59.7 mg/dL (9.0-27.0); Calcium 9.2 mg/dL (8.7-10.3); Carbon Dioxide 21.6 mmol/L (21.6-31.8); Chloride 103 mmol/L (96-109); Globulin 3.4 g/dL (1.6-3.3); Glucose 97 mg/dL (70-110); Potassium 4.7 mmol/L (3.5-5.5); Sodium 140 mmol/L (135-145); Total Bilirubin 0.7 mg/dL (0.3-1.2)
--- NOTE | 2024-06-07 11:09 | P.PN ---
Subjective Progress Note Date: 06/07/24 Consult reason: congestive heart failure History of present illness: This is 73-year-old male patient of Dr. Bales with past medical history of coronary artery disease status post PCI of the LAD and second diagonal branch, known severe disease involving the OM1, heart failure with preserved EF, diabetes, hypertension, dyslipidemia, chronic kidney disease, dilated ascending aorta, history of colectomy and overweight. We have been asked to evaluate the patient for CHF. Patient was recently hospitalized 05/28 - 05/31 and was treated for CHF and acute kidney injury. Patient states that when he went home he did not feel any better related to shortness of breath and when he had come in. He states he continues to have shortness of breath which is worsening and also has a little lightheadedness and dizziness. He complains of chest pain across the mid chest and also some left lower abdominal pain. He denies cough but he states in the morning he has sputum production. No significant lower extremity edema. He does have a chronic wound to the right foot with the boot in place. Blood pressure 121/61, heart rate 69, pulse ox 96% on 2 and half liters nasal cannula. Patient has been started on IV Lasix 80 mg every 12 hours. -EKG: Atrial fibrillation [address] changes -Chest x-ray: Correlate for volume overload -Laboratory studies: WBC 10.2, hemoglobin 10.4, platelet count 374. Sodium 135, potassium 4.6, BUN 66 and creatinine 2.71. Troponin negative x 1. proBNP 2550. -Home cardiac medications: Amlodipine 10 mg daily, aspirin 81 mg daily, atorvastatin 40 mg daily, Plavix 75 mg daily, Farxiga 10 mg daily, hydralazine 2 5 mg 3 times daily, Imdur 60 mg daily, Toprol XL 25 mg daily, Ranexa 500 mg every 12 hours, Demadex 40 mg daily. -Echocardiogram from 05/28/2024 revealed technical difficult study minimal mitral and tricuspid regurgitation. No pericardial effusion. -Cardiac catheterization history: April 26, 2024 revealing patent stent in the mid LAD. Late stent thrombosis of the second diagonal branch of the LAD, severe disease involving OM1 appeared unchanged compared to before, attempted balloon angioplasty was performed of second diagonal branch with suboptimal results 2/6 Patient seen and examined. He states he is feeling a little bit better from yesterday. He has noted to have worsening of his renal function and we will add an consult with nephrology. Blood pressure 135/64, heart rate 77, pulse ox 90% on 2 L nasal cannula. Electrolytes are normal, BUN 66 and creatinine 2.88. Patient has been maintained on IV Lasix. He still has lower extremity edema. Patient's is very concerned that his dressing has not been changed on his right foot and we will asked to make sure Dr. Ontiveros and wound care team is involved. 06/07 Patient seen and examined. Patient continues to have significant shortness of breath. He has been maintained on IV Lasix 80 mg every 12 hours. He states he is urinating only a small amount each time. He has a negative fluid balance of 1140. Weight is down 3 kg. Bladder scan has been negative. Repeat blood work reveals hemoglobin 8.9. BUN 59 and creatinine 2.4. Patient was seen yesterday by nephrology. Physical examination: Gen: This is a 73-year-old male in no acute respiratory distress. VS: reviewed HEENT: Head is atraumatic, normocephalic. Pupils equal, round. Sclerae is anicteric. NECK: Supple. No JVD. LUNGS: Decreased air exchange with bilateral expiratory wheeze. No intercostal retractions. HEART: Regular rate and rhythm. No murmur. ABDOMEN: Soft No tenderness. Colostomy right lower quadrant. EXTREMITIES: 1+ pedal edema. Dressing in place to the right foot. No calf tenderness. NEUROLOGICAL: Patient is awake, alert and oriented x3. Assessment: Difficulty breathing Acute on chronic diastolic heart failure History of coronary artery disease with PCI of the LAD and second diagonal with known severe disease involving the OM1 Diabetes Hypertension Dyslipidemia Chronic kidney disease with acute kidney injury Dilated ascending aorta History of colectomy Plan: Continue patient's home cardiac medications Continue patient on IV Lasix 80 mg every 12 hours Monitor GABRIEL, daily weights, electrolytes and renal function No need to repeat echocardiogram Consult with nephrology appreciated Patient is also followed by Dr. Ontiveros regarding chronic wound to the right foot Further recommend to the right footations to follow based upon clinical course Nurse practitioner note has been reviewed, I agree with documented findings and plan of care. Patient was seen and examined. Objective - Vital Signs Vital signs: Vital Signs Temp 97.6 F 06/07/24 07:28 Pulse 88 06/07/24 08:18 Resp 18 06/07/24 07:28 BP 147/65 06/07/24 07:28 Pulse Ox 93 L 06/07/24 08:05 FiO2 Intake & Output 06/06/24 06/07/24 06/07/24 18:59 06:59 18:59 Intake Total 240 240 Output Total 1300 80 150 Balance -1060 -80 90 Weight 110 kg Intake: Oral 240 240 Output: Urine 1300 80 150 Straight 930 Other: # Voids 2 3 - Labs CBC & Chem 7: 06/07/24 04:26 06/07/24 04:26 Labs: Abnormal Lab Results - Last 24 Hours (Table) 06/06/24 06/06/24 06/06/24 Range/Units 11:35 13:55 14:05 RBC (4.40-5.60) X 10*6/uL Hgb (13.0-17.0) g/dL Hct (39.6-50.0) % MCV (80.0-97.0) FL MCHC (32.0-37.0) g/dL RDW (11.5-14.5) % Lymphocytes # (0.90-5.00) X 10*3/uL Monocytes # (0.20-1.00) X 10*3/uL Eosinophils # (0.04-0.35) X 10*3/uL NRBC/100 WBC Diff (0.00-0.01) X 10*3/uL ESR 128 H (0-20) mm/Hr POC Glucose (mg/dL) 130 H (70-110) mg/dL C-Reactive Protein (<1.0) mg/dL Urine Glucose (UA) Trace H (Negative) 06/06/24 06/07/24 Range/Units 14:05 04:26 RBC 2.95 L (4.40-5.60) X 10*6/uL Hgb 8.9 L (13.0-17.0) g/dL Hct 29.4 L (39.6-50.0) % MCV 99.7 H (80.0-97.0) FL MCHC 30.3 L (32.0-37.0) g/dL RDW 17.8 H (11.5-14.5) % Lymphocytes # 0.43 L (0.90-5.00) X 10*3/uL Monocytes # 1.32 H (0.20-1.00) X 10*3/uL Eosinophils # 0.37 H (0.04-0.35) X 10*3/uL NRBC/100 WBC Diff 0.07 H (0.00-0.01) X 10*3/uL ESR (0-20) mm/Hr POC Glucose (mg/dL) (70-110) mg/dL C-Reactive Protein 7.2 H (<1.0) mg/dL Urine Glucose (UA) (Negative)
[2024-06-07 11:16] LABS: Glucose,Whole Blood 194 mg/dL (70-110)
--- NOTE | 2024-06-07 12:05 | P.PN ---
Subjective Progress Note Date: 06/07/24 Principal diagnosis: Full-thickness diabetic ulcer right heel with localized cellulitis Patient is being seen today for consultation of a ulcer of his left heel. This started out as a small fissure to the wound that has progressed with recent degradation secondary to a MRSA infection. Patient was seen in the wound care center where a tissue culture was taken. Tissue culture so that the MRSA was resistant to oral antibiotics in increased sensitivity to several IV antibiotics. Therefore patient was given a prescription for NUZRYA until he could see Dr. Ontiveros as an urgent visit for proper selection of an IV antibiotic due to patient's systemic comorbidities such as congestive heart failure in renal failure. Patient did not obtain this medication and in the interim developed relapse of his congestive heart failure and has been hospitalized this week for the same. Patient is now on appropriate IV antibiotics per infectious disease Objective - Vital Signs Vital signs: Vital Signs Temp 97.9 F 06/07/24 07:30 Pulse 88 06/07/24 08:18 Resp 20 06/07/24 07:45 BP 134/51 06/07/24 07:30 Pulse Ox 93 L 06/07/24 08:05 FiO2 Intake & Output 06/06/24 06/07/24 06/07/24 18:59 06:59 18:59 Intake Total 240 240 Output Total 1300 80 168 Balance -1060 -80 72 Weight 110 kg Intake: Oral 240 240 Output: Urine 1300 80 150 Straight 930 Post Void Residual 18 Other: # Voids 2 3 - Cardiovascular Details: Patient has diminished pedal pulses bilateral there is no digital hair extremities are cool to cool bilateral - Integumentary Integumentary Comment(s): Full-thickness ulcer on the lateral posterior aspect of the right heel there is either necrotic tissue or cauterized tissue from silver nitrate from post surgical intervention for debridement of this ulcer performed approximately 1 week ago. There is no extending erythema no extending edema minimal drainage. No odor. There is no undermining no tunneling noted - Neurologic Neurologic Comment(s): Patient has loss of protective sensation bilateral lower extremities to an SWM 5.07 mg wire up to including the lower leg with diminished vibratory 2 point tactile consistent with diabetic polyneuropathy. Patient has dryness of the integument consistent with autonomic neuropathy - Musculoskeletal Musculoskeletal Comment(s): All inverters everters plantarflex dorsiflexors grossly intact symmetric b ilateral range of motion ankle joint subtalar joint midtarsal joint metatarsal phalangeal joint grossly intact symmetric bilateralReview of radiographs show no osteomyelitis - Labs CBC & Chem 7: 06/07/24 04:26 06/07/24 04:26 Labs: Abnormal Lab Results - Last 24 Hours (Table) 06/06/24 06/06/24 06/06/24 Range/Units 13:55 14:05 14:05 RBC (4.40-5.60) X 10*6/uL Hgb (13.0-17.0) g/dL Hct (39.6-50.0) % MCV (80.0-97.0) FL MCHC (32.0-37.0) g/dL RDW (11.5-14.5) % Lymphocytes # (0.90-5.00) X 10*3/uL Monocytes # (0.20-1.00) X 10*3/uL Eosinophils # (0.04-0.35) X 10*3/uL NRBC/100 WBC Diff (0.00-0.01) X 10*3/uL ESR 128 H (0-20) mm/Hr Anion Gap (4.00-12.00) mmol/L BUN (9.0-27.0) mg/dL Creatinine (0.6-1.5) mg/dL Est GFR (CKD-EPI) (>=60) BUN/Creatinine Ratio (12.00-20.00) Ratio POC Glucose (mg/dL) (70-110) mg/dL C-Reactive Protein 7.2 H (<1.0) mg/dL Albumin (3.8-4.9) g/dL Globulin (1.6-3.3) g/dL Albumin/Globulin Ratio (1.60-3.17) Ratio Urine Glucose (UA) Trace H (Negative) 06/07/24 06/07/24 06/07/24 Range/Units 04:26 04:26 11:14 RBC 2.95 L (4.40-5.60) X 10*6/uL Hgb 8.9 L (13.0-17.0) g/dL Hct 29.4 L (39.6-50.0) % MCV 99.7 H (80.0-97.0) FL MCHC 30.3 L (32.0-37.0) g/dL RDW 17.8 H (11.5-14.5) % Lymphocytes # 0.43 L (0.90-5.00) X 10*3/uL Monocytes # 1.32 H (0.20-1.00) X 10*3/uL Eosinophils # 0.37 H (0.04-0.35) X 10*3/uL NRBC/100 WBC Diff 0.07 H (0.00-0.01) X 10*3/uL ESR (0-20) mm/Hr Anion Gap 15.40 H (4.00-12.00) mmol/L BUN 59.7 H (9.0-27.0) mg/dL Creatinine 2.4 H (0.6-1.5) mg/dL Est GFR (CKD-EPI) 28 L (>=60) BUN/Creatinine Ratio 24.88 H (12.00-20.00) Ratio POC Glucose (mg/dL) 194 H (70-110) mg/dL C-Reactive Protein (<1.0) mg/dL Albumin 3.6 L (3.8-4.9) g/dL Globulin 3.4 H (1.6-3.3) g/dL Albumin/Globulin Ratio 1.06 L (1.60-3.17) Ratio Urine Glucose (UA) (Negative) Assessment and Plan Assessment: Full-thickness ulceration right heel with localized cellulitis Plan: Exam reviewed patient's chart medical history. Wound after examination discussed with patient that the wound does appear stable and we will continue with the Santyl at this time as well as any antibiotics per infectious disease. We discussed with patient that we will consult the physician who performed the last debridement as the ulcer has dark tissue that may just be the result of the cauterization with silver nitrate. Will have the physician determine if this is the case or if there is increased necrosis if there is increased necrosis discussed with patient he may require further debridement. Continue with of floading and we discussed with patient proper offloading. Once patient is stable patient is to return to the wound care center for further treatment of the wound Time with Patient: Greater than 30
--- NOTE | 2024-06-07 12:38 | P.PN ---
Subjective Progress Note Date: 06/07/24 Patient is a 73-year-old male with past medical history significant for hypertension, hyperlipidemia, coronary artery disease with previous PCI/stenting, heart failure, chronic kidney disease, diabetes mellitus, chronic right heel wound, ulcerative colitis with previous colectomy and ileostomy. Of note, patient had a recent hospitalization late May and was just discharged 05/31/2024 for CHF exacerbation. Echocardiogram done during this hospitalization estimating a preserved left ventricular ejection fraction of 55 to 60%. Limited study, but no acute valvular abnormalities reported. Presented the emergency department on 06/04/2024 with a chief complaint of shortness of breath, mostly on exertion. Chest x-ray showing cardiomegaly, mild pulmonary vascular congestion, and a small pleural effusion on the left. NT proBNP elevated 2550. Currently receiving Lasix 80 mg twice daily. CBC: WBC count 10.2, hemoglobin 10.4, hematocrit 32.5, platelets 374. CMP: Sodium 135, potassium 4.6, chloride 101, serum bicarb 18, BUN 66, creatinine 2.71, glucose 139. Troponin is less than 0.012. Patient currently being evaluated on the general medical floor. Appears weak and deconditioned. He is resting in bed on 1 L/min nasal cannula. No respiratory distress noted. Complaining of a generalized headache, which he states is chronic. States that he has been short of breath on exertion for several months to almost 1 year. Particularly on exertion such as climbing stairs or walking to the bathroom. Denies history of COPD or asthma. Never tobacco smoker. Worked in an [employer] shop before he retired. Denies cough. Denies infectious-like symptoms. Current vital signs: Temperature 98 F, heart rate 78 bpm, blood pressure 145/54 mmHg, nontachypneic, SpO2 recorded at 91% on 1 L/min nasal cannula. The patient is seen today June 07, 2024 in follow-up on the regular medical floor. He is awake and alert in no acute distress. Sitting up at the bedside. Maintaining O2 saturations in the 90s on 3 L/min per nasal cannula. White count 9.8. Hemoglobin 8.9. Platelets 366. Sodium 140. Potassium 4.7. Bicarb 22. BUN 60. Creatinine 2.4. Glucose 97. He remains on DuoNeb and elations, Pulmicort inhalations. Lasix 80 mg IV every 12 hours. He is currently -1.1 L balance. Antibiotics in the form of cefepime and daptomycin for his diabetic ulcer of the right foot. X-ray revealed no osseous erosion or acute fracture. Objective - Vital Signs Vital signs: Vital Signs Temp 97.9 F 06/07/24 07:30 Pulse 88 06/07/24 08:18 Resp 20 06/07/24 07:45 BP 134/51 06/07/24 07:30 Pulse Ox 93 L 06/07/24 08:05 FiO2 Intake & Output 06/06/24 06/07/24 06/07/24 18:59 06:59 18:59 Intake Total 240 240 Output Total 1300 80 168 Balance -1060 -80 72 Weight 110 kg Intake: Oral 240 240 Output: Urine 1300 80 150 Straight 930 Post Void Residual 18 Other: # Voids 2 3 - Exam GENERAL EXAM: Alert, 73-year-old obese male, lying flat in bed, comfortable in no apparent distress. On 3 L/min nasal cannula. HEAD: Normocephalic and atraumatic EYES: Normal reaction of pupils, equal size. NOSE: Clear with pink turbinates. THROAT: No erythema or exudates. NECK: No masses, no JVD. CHEST: No chest wall deformity. LUNGS: Equal air entry with diminished lung sounds throughout. No crackles, wheeze, rhonchi or focal dullness. CVS: S1 and S2 normal with no audible murmur, regular rhythm. No extra heart sounds ABDOMEN: No hepatosplenomegaly, active bowel sounds, no guarding or rigidity. Functional ileostomy SPINE: No scoliosis or deformity SKIN: Generalized erythemic plaques involving upper extremities, chest, back CENTRAL NERVOUS SYSTEM: No focal deficits, tone is normal in all 4 extremities. EXTREMITIES: There is no peripheral edema, clubbing, or cyanosis. Peripheral pulses are intact. Right foot is wrapped with Lloyd bandage. - Labs CBC & Chem 7: 06/07/24 04:26 06/07/24 04:26 Labs: Abnormal Lab Results - Last 24 Hours (Table) 06/06/24 06/06/24 06/06/24 Range/Units 13:55 14:05 14:05 RBC (4.40-5.60) X 10*6/uL Hgb (13.0-17.0) g/dL Hct (39.6-50.0) % MCV (80.0-97.0) FL MCHC (32.0-37.0) g/dL RDW (11.5-14.5) % Lymphocytes # (0.90-5.00) X 10*3/uL Monocytes # (0.20-1.00) X 10*3/uL Eosinophils # (0.04-0.35) X 10*3/uL NRBC/100 WBC Diff (0.00-0.01) X 10*3/uL ESR 128 H (0-20) mm/Hr Anion Gap (4.00-12.00) mmol/L BUN (9.0-27.0) mg/dL Creatinine (0.6-1.5) mg/dL Est GFR (CKD-EPI) (>=60) BUN/Creatinine Ratio (12.00-20.00) Ratio POC Glucose (mg/dL) (70-110) mg/dL C-Reactive Protein 7.2 H (<1.0) mg/dL Albumin (3.8-4.9) g/dL Globulin (1.6-3.3) g/dL Albumin/Globulin Ratio (1.60-3.17) Ratio Urine Glucose (UA) Trace H (Negative) 06/07/24 06/07/24 06/07/24 Range/Units 04:26 04:26 11:14 RBC 2.95 L (4.40-5.60) X 10*6/uL Hgb 8.9 L (13.0-17.0) g/dL Hct 29.4 L (39.6-50.0) % MCV 99.7 H (80.0-97.0) FL MCHC 30.3 L (32.0-37.0) g/dL RDW 17.8 H (11.5-14.5) % Lymphocytes # 0.43 L (0.90-5.00) X 10*3/uL Monocytes # 1.32 H (0.20-1.00) X 10*3/uL Eosinophils # 0.37 H (0.04-0.35) X 10*3/uL NRBC/100 WBC Diff 0.07 H (0.00-0.01) X 10*3/uL ESR (0-20) mm/Hr Anion Gap 15.40 H (4.00-12.00) mmol/L BUN 59.7 H (9.0-27.0) mg/dL Creatinine 2.4 H (0.6-1.5) mg/dL Est GFR (CKD-EPI) 28 L (>=60) BUN/Creatinine Ratio 24.88 H (12.00-20.00) Ratio POC Glucose (mg/dL) 194 H (70-110) mg/dL C-Reactive Protein (<1.0) mg/dL Albumin 3.6 L (3.8-4.9) g/dL Globulin 3.4 H (1.6-3.3) g/dL Albumin/Globulin Ratio 1.06 L (1.60-3.17) Ratio Urine Glucose (UA) (Negative) Assessment and Plan Assessment: Acute exacerbation of diastolic congestive heart failure Acute hypoxemic respiratory failure, secondary to above Acute on chronic shortness of breath History of CAD with previous PCI Diabetes mellitus Hypertension History of hyperlipidemia Acute on chronic kidney disease Chronic cephalgia History of UC with previous colectomy and ileostomy History of prostate cancer status post chemoradiation Chronic right heel wound, status post debridement on 05/28/2024 Obesity, with a BMI of 40.4 kg/m Never tobacco smoker Plan: The patient was seen and evaluated Labs and medications reviewed Continue DuoNeb inhalations, Symbicort Antibiotics per ID service Titrate down the FiO2 as tolerated Continue diuretics Increase his activity as tolerated We will continue to follow I have personally seen and examined the patient, performed the documentation and the assessment and plan as written. Number of minutes spent on the visit: 10 Dictation was produced using [employer] dictation software. Please excuse any grammatical, word or spelling errors.
[2024-06-07] MEDS ORDERED: IPRATROPIUM-ALBUTEROL 3 ML NEB INHALATION PRN (12:48)
--- NOTE | 2024-06-07 13:16 | XR ---
EXAMINATION TYPE: XR chest 1V portable DATE OF EXAM: 06/07/2024 1:11 PM COMPARISON: Chest radiographs from to 425 TECHNIQUE: XR chest 1V portable Portable AP radiograph of the chest. CLINICAL INDICATION:Male, 73 years old with history of shortness of breath; FINDINGS: Lungs/Pleura: No pleural effusion or pneumothorax. Diffuse patchy airspace opacities bilaterally. Heart/mediastinum: Cardiomediastinal silhouette is enlarged and stable. Musculoskeletal: No acute osseous pathology. IMPRESSION: Cardiomegaly with diffuse bilateral patchy airspace opacities concerning for pulmonary edema. Correla te with BNP for congestive heart failure. Superimposed infectious process is not excluded. [facility], , 06/07/2024 1:13 PM
[2024-06-07] MEDS: LIDOCAINE 1% INJ 10MG/ML (20 ML MDV) SQ ONE (14:29)
[2024-06-07] MEDS: SILVER NITRATE APPLICATOR 1 EACH STICK..EA. TOPICAL STA (14:30)
[2024-06-07] MEDS: methylPREDNISolone SOD SUCCI 125 MG/2 ML VIAL IV SCH (14:33)
[2024-06-07] MEDS: TAMSULOSIN 0.4 MG CAP.ER.24H PO STA (14:34)
--- NOTE | 2024-06-07 14:46 | P.PCN ---
Description of Procedure: 73-year-old gentleman patient is known to me patient had a debridement done in the past went home patient has been readmitted history of diabetes I Called from for further evaluation of the patient. Patient has a pressure ulcer on the right heel foot was prepped and 1% lidocaine plain infiltrated using knife we excised the necrotic tissue down to subcutaneous tissue there was some bleeding which was controlled with nitro stick. Wound was irrigated with saline and we placed Santyl cream and dressing was applied patient tarted the procedure well Plan is clear with Santyl cream dressing should be changed daily when discharged from the hospital patient will follow-up with Dr. Hilario in the wound clinic
[2024-06-07] MEDS: FUROSEMIDE 10 MG/ML 4 ML VIAL IV STA ×2 (15:26→15:40)
[2024-06-07 16:51] LABS: Glucose,Whole Blood 170 mg/dL (70-110)
--- NOTE | 2024-06-07 18:50 | P.PN ---
Subjective Patient is seen for follow-up for chronic kidney disease and acute kidney injury. Shortness of breath is about the same. Serum creatinine slightly lower at 2.4. Patient states he has been voiding. Patient had significant urine retention of about 700 mL however repeat postvoid bladder scans have been quite low with most recent scan today at 18 mL Objective - Vital Signs Vital signs: Vital Signs Temp 97.8 F 06/07/24 14:57 Pulse 72 06/07/24 15:15 Resp 18 06/07/24 14:57 BP 140/64 06/07/24 14:57 Pulse Ox 91 L 06/07/24 15:24 FiO2 40 06/07/24 15:40 Intake & Output 06/06/24 06/07/24 06/07/24 18:59 06:59 18:59 Intake Total 240 240 Output Total 1300 80 168 Balance -1060 -80 72 Weight 110 kg 110 kg Intake: Oral 240 240 Output: Urine 1300 80 150 Straight 930 Post Void Residual 18 Other: # Voids 2 3 - Exam Patient is awake, comfortable, no acute distress Examination of the heart S1 and S2 Examination of the lungs bilateral breath sounds are heard, bilateral wheezing heard Abdomen is soft nontender Examination of lower extremities shows edema 1+ bilaterally STICK PULLER exam grossly intact - Labs CBC & Chem 7: 06/07/24 04:26 06/07/24 04:26 Labs: Abnormal Lab Results - Last 24 Hours (Table) 06/06/24 06/07/24 06/07/24 Range/Units 14:05 04:26 04:26 RBC 2.95 L (4.40-5.60) X 10*6/uL Hgb 8.9 L (13.0-17.0) g/dL Hct 29.4 L (39.6-50.0) % MCV 99.7 H (80.0-97.0) FL MCHC 30.3 L (32.0-37.0) g/dL RDW 17.8 H (11.5-14.5) % Lymphocytes # 0.43 L (0.90-5.00) X 10*3/uL Monocytes # 1.32 H (0.20-1.00) X 10*3/uL Eosinophils # 0.37 H (0.04-0.35) X 10*3/uL NRBC/100 WBC Diff 0.07 H (0.00-0.01) X 10*3/uL ESR 128 H (0-20) mm/Hr Anion Gap 15.40 H (4.00-12.00) mmol/L BUN 59.7 H (9.0-27.0) mg/dL Creatinine 2.4 H (0.6-1.5) mg/dL Est GFR (CKD-EPI) 28 L (>=60) BUN/Creatinine Ratio 24.88 H (12.00-20.00) Ratio POC Glucose (mg/dL) (70-110) mg/dL Albumin 3.6 L (3.8-4.9) g/dL Globulin 3.4 H (1.6-3.3) g/dL Albumin/Globulin Ratio 1.06 L (1.60-3.17) Ratio 06/07/24 06/07/24 Range/Units 11:14 16:50 RBC (4.40-5.60) X 10*6/uL Hgb (13.0-17.0) g/dL Hct (39.6-50.0) % MCV (80.0-97.0) FL MCHC (32.0-37.0) g/dL RDW (11.5-14.5) % Lymphocytes # (0.90-5.00) X 10*3/uL Monocytes # (0.20-1.00) X 10*3/uL Eosinophils # (0.04-0.35) X 10*3/uL NRBC/100 WBC Diff (0.00-0.01) X 10*3/uL ESR (0-20) mm/Hr Anion Gap (4.00-12.00) mmol/L BUN (9.0-27.0) mg/dL Creatinine (0.6-1.5) mg/dL Est GFR (CKD-EPI) (>=60) BUN/Creatinine Ratio (12.00-20.00) Ratio POC Glucose (mg/dL) 194 H 170 H (70-110) mg/dL Albumin (3.8-4.9) g/dL Globulin (1.6-3.3) g/dL Albumin/Globulin Ratio (1.60-3.17) Ratio Assessment and Plan Assessment: 1. Acute kidney injury, nonoliguric, cardiorenal. UA is benign and ultrasound does not show any evidence of hydronephrosis. 2. Acute on chronic diastolic CHF 3. Volume overload 4. Hypertension with CKD stage IV 5. Acute hypoxic respiratory failure secondary to CHF 6. Coronary artery disease with history of coronary stents 7. Metabolic acidosis maintained on oral sodium bicarb. 8. Recent right heel wound status post debridement Plan: Continue with IV Lasix Continue to monitor for urine retention Continue calcitriol
[2024-06-07 20:19] LABS: Glucose,Whole Blood 109 mg/dL (70-110)
--- NOTE | 2024-06-07 21:29 | P.PN ---
Subjective Progress Note Date: 06/07/24 This is a pleasant 73-year-old male who was recently admitted with acute on chronic CHF also extensive right heel wound being closely monitored with multiple consultations following. Pulmonary, cardiology, nephrology, infectious disease as well as podiatry Dr. Jernigan evaluating the patient. Vascular surgery has been consulted as patient had previous debridement done on the heel and is maintained on antibiotics outpatient. Patient is continued on daptomycin as long with cefepime and will likely require deep tissue cultures if debridement is necessary to determine appropriate antibiotics. Patient continues to have significant shortness of breath appears to be in CHF as well as COPD exacerbation with significant swelling noted. Recommend fluid restrictions and patient is continued on IV diuresis. Kidney functions are elevated although stable with nephrology following. Review of systems: Constitutional: No reports of fatigue, fever, or chills Cardiovascular: No reports of chest pain or palpitations Respiratory: reports of shortness of breath, and wheezing GI: reports of nausea, no reports of vomiting, no diarrhea : No reports of dysuria or retention Neurovascular: reports of generalized weakness All medications have been reviewed Active Medications Acetaminophen (Acetaminophen Tab 325 Mg Tab) 650 mg PO Q6HR PRN PRN Reason: Mild Pain or Fever > 100.5 Acetaminophen/Butalbital/Caffeine (Butalb/Apap/Caff 50-325-40mg Tab) 1 each PO Q4H PRN PRN Reason: Migraine Headache Albuterol/Ipratropium (Ipratropium-Albuterol 3 Ml Neb) 3 ml INHALATION RT-QID [facility] Last Admin: 06/07/24 21:20 Dose: 3 ml Albuterol/Ipratropium (Ipratropium-Albuterol 3 Ml Neb) 3 ml INHALATION RT-QID PRN PRN Reason: Shortness Of Breath Or Wheezing Allopurinol (Allopurinol 100 Mg Tab) 100 mg PO DAILY [facility] Amlodipine Besylate (Amlodipine 10 Mg Tab) 10 mg PO DAILY [facility] Last Admin: 06/07/24 08:56 Dose: 10 mg Aspirin (Aspirin 81 Mg) 81 mg PO DAILY [facility] Last Admin: 06/07/24 08:56 Dose: 81 mg Atorvastatin Calcium (Atorvastatin 40 Mg Tab) 40 mg PO DAILY [facility] Last Admin: 06/07/24 08:55 Dose: 40 mg Budesonide (Budesonide 1 Mg/2 Ml Nebu) 1 mg INHALATION RT-BID [facility] Last Admin: 06/07/24 21:20 Dose: Not Given Calcitriol (Calcitriol 0.25 Mcg Cap) 0.25 mcg PO Mo@0900 [facility] Clopidogrel Bisulfate (Clopidogrel 75 Mg Tab) 75 mg PO DAILY [facility] Last Admin: 06/07/24 08:57 Dose: 75 mg Collagenase (Collagenase 250 Unit/Gm Ointment 30 Gm Tube) 1 applic TOPICAL DA BASSAM [facility]; Protocol Last Admin: 06/07/24 09:15 Dose: 1 applic Dapagliflozin (Dapagliflozin Propanediol 10 Mg Tablet) 10 mg PO DAILY [facility] Last Admin: 06/07/24 09:00 Dose: 10 mg Dextrose/Water (Dextrose 50% Syringe 50 Ml) 25 ml IVP PER PROTOCOL PRN; Protocol PRN Reason: Hypoglycemia Dextrose/Water (Dextrose 50% Syringe 50 Ml) 50 ml IVP PER PROTOCOL PRN; Protocol PRN Reason: Hypoglycemia Ergocalciferol (Ergocalciferol 1,250 Mcg (50,000 Iu) Capsule) 1,250 mcg PO Q14D [facility] Last Admin: 06/05/24 08:42 Dose: 1,250 mcg Escitalopram Oxalate (Escitalopram 10 Mg Tab) 10 mg PO DAILY [facility] Last Admin: 06/07/24 08:55 Dose: 10 mg Ferrous Sulfate (Ferrous Sulfate 325 Mg Tab) 325 mg PO DAILY [facility] Last Admin: 06/07/24 08:56 Dose: 325 mg Furosemide (Furosemide 10 Mg/Ml 10 Ml Vial) 80 mg IV Q12H [facility] Last Admin: 06/07/24 17:33 Dose: 80 mg Gabapentin (Gabapentin 100 Mg Cap) 100 mg PO HS [facility] Last Admin: 06/07/24 20:45 Dose: 100 mg Hydralazine HCl (Hydralazine Hcl 25 Mg Tab) 25 mg PO TID [facility] Last Admin: 06/07/24 15:31 Dose: 25 mg Cefepime HCl 1 gm/ Sodium (Chloride) 50 mls @ 12.5 mls/hr IVPB Q12H [facility]; Protocol Last Admin: 06/07/24 14:31 Dose: 12.5 mls/hr Daptomycin 350 mg/ Sodium (Chloride) 50 mls @ 100 mls/hr IVPB Q48H [facility]; Protocol Insulin Aspart (Insulin Aspart (Novolog) 100 Unit/Ml Vial) 0 unit SQ ACHS [facility]; Protocol Last Admin: 06/07/24 17:32 Dose: 3 unit Insulin Aspart (Insulin Aspart (Novolog) 100 Unit/Ml Vial) 20 unit SQ AC-TID [facility] Last Admin: 06/07/24 17:32 Dose: 20 unit Insulin Detemir (Insulin Detemir (Levemir) 100 Unit/Ml Syr) 40 unit SQ HS [facility] Last Admin: 06/06/24 21:20 Dose: Not Given Isosorbide Mononitrate (Isosorbide Mononitrate Er 60 Mg Tab.Er.24h) 60 mg PO DAILY [facility] Last Admin: 06/07/24 08:55 Dose: 60 mg Methylprednisolone Sodium Succinate (Methylprednisolone Sod Succi 125 Mg/2 Ml Vial) 60 mg IV Q6H [facility] Last Admin: 06/07/24 19:31 Dose: 60 mg Metoprolol Succinate (Metoprolol Succinate (Er) 25 Mg Tab.Er.24h) 25 mg PO DAILY [facility] Last Admin: 06/07/24 08:56 Dose: 25 mg Naloxone HCl (Naloxone 0.4 Mg/Ml 1 Ml Vial) 0.2 mg IV Q2M PRN PRN Reason: Opioid Reversal Collagenase 250 Unit /Gm Ointment 30 Gm Tube 1 each TOPICAL DAILY [facility]; Protocol Last Admin: 06/07/24 09:16 Dose: Not Given Pantoprazole Sodium (Pantoprazole 40 Mg Tablet) 40 mg PO DAILY [facility] Last Admin: 06/07/24 08:55 Dose: 40 mg Ranolazine (Ranolazine 500 Mg Tab.Er.12h) 500 mg PO Q12HR [facility] Last Admin: 06/07/24 20:45 Dose: 500 mg Sodium Bicarbonate (Sodium Bicarbonate Tab 650 Mg Tab) 650 mg PO DAILY [facility] Last Admin: 06/07/24 08:56 Dose: 650 mg Tamsulosin HCl (Tamsulosin 0.4 Mg Cap.Er.24h) 0.4 mg PO -BRKFST [facility] Triamcinolone Acetonide (Triamcinolone Acet 0.5% Cream 15 Gm Tube) 1 applic TOPICAL BID PRN; Protocol PRN Reason: rash/dry skin PHYSICAL EXAMINATION: GENERAL: The patient is alert and oriented x4, Well developed, elderly appearing, ill-appearing, obese HEENT: Pupils are round and equally reacting to light. EOMI. no scleral icterus. No conjunctival pallor. Normocephalic, atraumatic. No pharyngeal erythema. No thyromegaly. CARDIOVASCULAR: S1 and S2 muffled PULMONARY: diminished breath sounds bilaterally with significant expiratory as well as inspiratory wheezing with coarse rhonchi and crackles noted ABDOMEN: soft. Nontender on exam. Protuberant, obese. non-distended, normoactive bowel sounds. No palpable organomegaly. MUSCULOSKELETAL: No joint swelling or deformity. EXTREMITIES: No cyanosis, clubbing, or pedal edema. Right heel currently dressed and awaiting vascular surgery evaluation NEUROLOGICAL: Gross neurological examination did not reveal any focal deficits. Diffuse weakness SKIN: No rashes. Assessment: Acute on chronic congestive heart failure, diastolic dysfunction, acute exacerbation Right heel infection with chronic wound, followed by wound care outpatient maint ained on antibiotics, scheduled to undergo debridement with vascular surgery today 06/07/2024 Acute hypoxic respiratory failure, multifactorial secondary to COPD exacerbation as well as CHF exacerbation History of chronic ostomy with previous ulcerative colitis History of prostate cancer status post chemoradiation Normocytic anemia Chronic kidney disease stage III History of coronary artery disease with previous stenting Diabetes mellitus, type II Obesity with a BMI of 39.1 History of dilated ascending aorta GI prophylaxis DVT prophylaxis Full code Plan: Recommend to continue with current medications and management with multiple consultations following Patient was evaluated by Dr. Jernigan and vascular surgery consulted for debridement of the right heel and is continued on antibiotics with infectious disease following and will likely require deep tissue cultures from debridement to determine appropriate discharge antibiotics Patient having significant wheezing and shortness of breath will start steroids along with continued DuoNeb treatments [id number] and pulmonary following Follow-up chest x-ray showing vascular congestion and is maintained on diuretics, will give an additional dose and increased in diuretic therapy. Nephrology and cardiology following as well and will continue current regimen due to significant complex Comorbidities, overall prognosis is extremely guarded The impression and plan of care has been dictated by Willa Clark, nurse practitioner as directed. Dr. Harvey MD I have performed a history and examination and MDM of this patient, discussed the same with the dictator, and agree with the dictator's assessment and plan as written ,documented as a scribe. Based on total visit time, I have performed more than 50% of the visit. Any additional findings or plans will be noted. Objective - Vital Signs Vital signs: Vital Signs Temp 97.8 F 06/07/24 14:57 Pulse 72 06/07/24 15:15 Resp 18 02/07/25 14:57 BP 140/64 06/07/24 14:57 Pulse Ox 91 L 06/07/24 15:24 FiO2 Intake & Output 06/06/24 06/07/24 06/07/24 18:59 06:59 18:59 Intake Total 240 240 Output Total 1300 80 168 Balance -1060 -80 72 Weight 110 kg 110 kg Intake: Oral 240 240 Output: Urine 1300 80 150 Straight 930 Post Void Residual 18 Other: # Voids 2 3 - Labs CBC & Chem 7: 06/07/24 04:26 06/07/24 04:26 Labs: Abnormal Lab Results - Last 24 Hours (Table) 06/06/24 06/07/24 06/07/24 Range/Units 14:05 04:26 04:26 RBC 2.95 L (4.40-5.60) X 10*6/uL Hgb 8.9 L (13.0-17.0) g/dL Hct 29.4 L (39.6-50.0) % MCV 99.7 H (80.0-97.0) FL MCHC 30.3 L (32.0-37.0) g/dL RDW 17.8 H (11.5-14.5) % Lymphocytes # 0.43 L (0.90-5.00) X 10*3/uL Monocytes # 1.32 H (0.20-1.00) X 10*3/uL Eosinophils # 0.37 H (0.04-0.35) X 10*3/uL NRBC/100 WBC Diff 0.07 H (0.00-0.01) X 10*3/uL ESR 128 H (0-20) mm/Hr Anion Gap 15.40 H (4.00-12.00) mmol/L BUN 59.7 H (9.0-27.0) mg/dL Creatinine 2.4 H (0.6-1.5) mg/dL Est GFR (CKD-EPI) 28 L (>=60) BUN/Creatinine Ratio 24.88 H (12.00-20.00) Ratio POC Glucose (mg/dL) (70-110) mg/dL Albumin 3.6 L (3.8-4.9) g/dL Globulin 3.4 H (1.6-3.3) g/dL Albumin/Globulin Ratio 1.06 L (1.60-3.17) Ratio 06/07/24 Range/Units 11:14 RBC (4.40-5.60) X 10*6/uL Hgb (13.0-17.0) g/dL Hct (39.6-50.0) % MCV (80.0-97.0) FL MCHC (32.0-37.0) g/dL RDW (11.5-14.5) % Lymphocytes # (0.90-5.00) X 10*3/uL Monocytes # (0.20-1.00) X 10*3/uL Eosinophils # (0.04-0.35) X 10*3/uL NRBC/100 WBC Diff (0.00-0.01) X 10*3/uL ESR (0-20) mm/Hr Anion Gap (4.00-12.00) mmol/L BUN (9.0-27.0) mg/dL Creatinine (0.6-1.5) mg/dL Est GFR (CKD-EPI) (>=60) BUN/Creatinine Ratio (12.00-20.00) Ratio POC Glucose (mg/dL) 194 H (70-110) mg/dL Albumin (3.8-4.9) g/dL Globulin (1.6-3.3) g/dL Albumin/Globulin Ratio (1.60-3.17) Ratio
[2024-06-08 06:20] LABS: Glucose,Whole Blood 218 mg/dL (70-110)
--- NOTE | 2024-06-08 08:46 | P.PN ---
Subjective Progress Note Date: 06/08/24 The patient was seen and evaluated this morning. He is feeling better in terms of shortness of breath but he still hypoxic requiring 4 L of oxygen. No pain in the chest and no dizziness or lightness and no feeling of heart racing or fluttering. The creatinine remains stable. He continues to be seen by the infectious disease regarding the wound on the right lower extremity as well as he continues to be seen by a small business banking officer and by Dr. Carpenter. The physical examination is remarkable for regular rhythm with diminished breathing sounds bilaterally and mild bilateral lower EXTR edema Assessment: Difficulty breathing Acute on chronic diastolic heart failure History of coronary artery disease with PCI of the LAD and second diagonal with known severe disease involving the OM1 Diabetes Hypertension Dyslipidemia Chronic kidney disease with acute kidney injury Dilated ascending aorta History of colectomy Plan: Continue patient's home cardiac medications Continue patient on IV Lasix 80 mg every 12 hours Monitor GABRIEL, daily weights, electrolytes and renal function No need to repeat echocardiogram Consult with nephrology appreciated Patient is also followed by Dr. Ontiveros regarding chronic wound to the right foot Further recommend to the right footations to follow based upon clinical course Objective - Vital Signs Vital signs: Vital Signs Temp 98.4 F 06/08/24 07:14 Pulse 68 06/08/24 08:38 Resp 18 06/08/24 08:38 BP 127/53 06/08/24 07:14 Pulse Ox 96 06/08/24 07:14 FiO2 40 06/08/24 08:27 Intake & Output 06/07/24 06/08/24 06/08/24 18:59 06:59 18:59 Intake Total 1520 710 Output Total 668 625 Balance 852 85 Weight 110 kg Intake: IV 120 Sodium Chloride 0.9% 1000 120 mL @ 10 mLs/hr Intake, IV Titration 50 Amount Cefepime 1 gm In Sodium 50 Chloride 0.9% 50 ml @ 12. 5 mls/hr IVPB Q12H [facility] Rx #:[id number] Oral 1520 540 Output: Urine 650 625 Straight 625 Post Void Residual 18 Other: Voiding Method Urinal - Labs CBC & Chem 7: 06/07/24 04:26 06/07/24 04:26 Labs: Abnormal Lab Results - Last 24 Hours (Table) 06/07/24 06/07/24 06/07/24 Range/Units 04:26 11:14 16:50 Anion Gap 15.40 H (4.00-12.00) mmol/L BUN 59.7 H (9.0-27.0) mg/dL Creatinine 2.4 H (0.6-1.5) mg/dL Est GFR (CKD-EPI) 28 L (>=60) BUN/Creatinine Ratio 24.88 H (12.00-20.00) Ratio POC Glucose (mg/dL) 194 H 170 H (70-110) mg/dL Albumin 3.6 L (3.8-4.9) g/dL Globulin 3.4 H (1.6-3.3) g/dL Albumin/Globulin Ratio 1.06 L (1.60-3.17) Ratio 06/08/24 Range/Units 06:19 Anion Gap (4.00-12.00) mmol/L BUN (9.0-27.0) mg/dL Creatinine (0.6-1.5) mg/dL Est GFR (CKD-EPI) (>=60) BUN/Creatinine Ratio (12.00-20.00) Ratio POC Glucose (mg/dL) 218 H (70-110) mg/dL Albumin (3.8-4.9) g/dL Globulin (1.6-3.3) g/dL Albumin/Globulin Ratio (1.60-3.17) Ratio Microbiology - Last 24 Hours (Table) 06/06/24 14:05 Blood Culture - Preliminary Blood
[2024-06-08] MEDS: DAPTOmycin 350 MG in SODIUM CHLORIDE 0.9% 50 ML IVPB SCH (08:49)
[2024-06-08] MEDS: allopurinoL 100 MG TAB PO SCH (08:51)
[2024-06-08] MEDS: TAMSULOSIN 0.4 MG CAP.ER.24H PO SCH (08:51)
[2024-06-08 10:10] LABS: Basophils # (A) 0.01 X 10*3/uL (0.00-0.10); Basophils % (A) 0.2 %; Eosinophils # (A) 0 X 10*3/uL (0.04-0.35); Eosinophils % (A) 0 %; HGB 8.5 g/dL (13.0-17.0); Lymphocytes # (A) 0.14 X 10*3/uL (0.90-5.00); Lymphocytes % (A) 2.2 %; MCH 30.5 pg (27.0-32.0); MCHC 31.5 g/dL (32.0-37.0); MCV 96.8 FL (80.0-97.0); Mean Platelet Volume 10.8 FL (9.5-12.2); Monocytes # (A) 0.08 X 10*3/uL (0.20-1.00); Monocytes % (A) 1.3 %; NRBC Per 100 WBC 0.04 X 10*3/uL (0.00-0.01); Neutrophils # (A) 6.05 X 10*3/uL (1.80-7.70); Neutrophils % (A) 95.8 %; Platelet Count 357 X 10*3/uL (140-440); RBC 2.79 X 10*6/uL (4.40-5.60); RDW 17.5 % (11.5-14.5); WBC 6.31 X 10*3/uL (4.50-10.00)
--- NOTE | 2024-06-08 10:25 | P.PN ---
Subjective Patient is seen in follow-up for acute kidney injury on chronic kidney disease. Creatinine 2.4 yesterday. Nonoliguric. On IV Lasix. Does get dyspneic with exertion. Vital signs are stable. General: No acute distress. HEENT: Head exam is unremarkable. On nasal cannula. LUNGS: No audible rhonchi or wheezes. HEART: Rate and Rhythm are regular. ABDOMEN: Nontender. EXTREMITITES: 1+ edema. Chronic changes noted. Objective - Vital Signs Vital signs: Vital Signs Temp 98.4 F 06/08/24 07:14 Pulse 68 06/08/24 08:38 Resp 18 06/08/24 08:38 BP 127/53 06/08/24 07:14 Pulse Ox 96 06/08/24 07:14 FiO2 40 06/08/24 08:27 Intake & Output 06/07/24 06/08/24 06/08/24 18:59 06:59 18:59 Intake Total 1520 710 Output Total 668 625 Balance 852 85 Weight 110 kg Intake: IV 120 Sodium Chloride 0.9% 1000 120 mL @ 10 mLs/hr Intake, IV Titration 50 Amount Cefepime 1 gm In Sodium 50 Chloride 0.9% 50 ml @ 12. 5 mls/hr IVPB Q12H [facility] Rx #:[id number] Oral 1520 540 Output: Urine 650 625 Straight 625 Post Void Residual 18 Other: Voiding Method Urinal - Labs CBC & Chem 7: 06/08/24 03:08 06/07/24 04:26 Labs: Abnormal Lab Results - Last 24 Hours (Table) 06/07/24 06/07/24 06/08/24 Range/Units 11:14 16:50 03:08 RBC 2.79 L (4.40-5.60) X 10*6/uL Hgb 8.5 L (13.0-17.0) g/dL Hct 27.0 L (39.6-50.0) % MCHC 31.5 L (32.0-37.0) g/dL RDW 17.5 H (11.5-14.5) % Lymphocytes # 0.14 L (0.90-5.00) X 10*3/uL Monocytes # 0.08 L (0.20-1.00) X 10*3/uL Eosinophils # 0 L (0.04-0.35) X 10*3/uL NRBC/100 WBC Diff 0.04 H (0.00-0.01) X 10*3/uL POC Glucose (mg/dL) 194 H 170 H (70-110) mg/dL 06/08/24 Range/Units 06:19 RBC (4.40-5.60) X 10*6/uL Hgb (13.0-17.0) g/dL Hct (39.6-50.0) % MCHC (32.0-37.0) g/dL RDW (11.5-14.5) % Lymphocytes # (0.90-5.00) X 10*3/uL Monocytes # (0.20-1.00) X 10*3/uL Eosinophils # (0.04-0.35) X 10*3/uL NRBC/100 WBC Diff (0.00-0.01) X 10*3/uL POC Glucose (mg/dL) 218 H (70-110) mg/dL Microbiology - Last 24 Hours (Table) 06/06/24 14:05 Blood Culture - Preliminary Blood Assessment and Plan Plan: Assessment: 1. Acute kidney injury secondary to ATN secondary to cardiorenal syndrome. UA benign. No hydronephrosis noted on imaging. Creatinine 2.4 yesterday. 2. Chronic kidney disease stage IV with baseline creatinine near 2. 3. Volume overload. 4. Coronary disease with cardiac stents. 5. Hypertension with chronic kidney disease. Stable. 6. Metabolic acidosis secondary to chronic kidney disease maintained on oral bicarb. 7. Diabetes mellitus. 8. Right foot ulcer status post debridement. On antibiotics. 9. 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 10. Anemia of chronic kidney disease. Rule out iron deficiency. Plan: Maintain IV Lasix. Hold Farxiga due to active infection. Avoid nephrotoxins. Continue to monitor renal function and urine output. Check iron studies.
[2024-06-08 10:26] LABS: ALT 18 U/L (10-49); AST 32 U/L (14-35); Albumin 3.6 g/dL (3.8-4.9); Albumin/Globulin Ratio 0.95 Ratio (1.60-3.17); Alkaline Phosphatase 105 U/L (41-126); Blood Urea Nitrogen 63.6 mg/dL (9.0-27.0); Calcium 9.4 mg/dL (8.7-10.3); Carbon Dioxide 20.5 mmol/L (21.6-31.8); Chloride 101 mmol/L (96-109); Globulin 3.8 g/dL (1.6-3.3); Glucose 178 mg/dL (70-110); Potassium 5.8 mmol/L (3.5-5.5); Sodium 136 mmol/L (135-145); Total Bilirubin 0.6 mg/dL (0.3-1.2); Total Protein 7.4 g/dL (6.2-8.2)
[2024-06-08 10:55] LABS: Glucose,Whole Blood 284 mg/dL (70-110)
--- NOTE | 2024-06-08 11:14 | XR ---
EXAMINATION TYPE: XR chest 1V DATE OF EXAM: 06/08/2024 COMPARISON: 06/07/2024 CLINICAL INDICATION: Male, 73 years old with history of sob; TECHNIQUE: Single frontal view of the chest is obtained. FINDINGS: There is no change in the scattered partially consolidated airspace opacities with pulmonary vascular congestion and interstitial edema as well as mild cardiomegaly. The findings are most consistent wit h stable CHF. There is no pleural effusion or pneumothorax. The osseous structures are intact. IMPRESSION: No change in the acute cardiopulmonary disease most consistent with CHF. [facility], , 06/08/2024 11:12 AM
--- NOTE | 2024-06-08 12:25 | PN ---
PROGRESS NOTE A 73-year-old gentleman who has a pressure ulcer of right heel. However, we did debridement yesterday. Today, we changed the dressing, using Santyl cream. Base of the wound is clean, no discharge or redness noted. Continue with his Santyl cream. The patient is on IV antibiotic under care of Infectious Disease. Next dressing will be changed on Monday. MMODL / JOYCEN: [id number] /
--- NOTE | 2024-06-08 12:37 | P.PN ---
Subjective Progress Note Date: 06/08/24 Patient is a 73-year-old male with past medical history significant for hypertension, hyperlipidemia, coronary artery disease with previous PCI/stenting, heart failure, chronic kidney disease, diabetes mellitus, chronic right heel wound, ulcerative colitis with previous colectomy and ileostomy. Of note, patient had a recent hospitalization late May and was just discharged 05/31/2024 for CHF exacerbation. Echocardiogram done during this hospitalization estimating a preserved left ventricular ejection fraction of 55 to 60%. Limited study, but no acute valvular abnormalities reported. Presented the emergency department on 06/04/2024 with a chief complaint of shortness of breath, mostly on exertion. Chest x-ray showing cardiomegaly, mild pulmonary vascular congestion, and a small pleural effusion on the left. NT proBNP elevated 2550. Currently receiving Lasix 80 mg twice daily. CBC: WBC count 10.2, hemoglobin 10.4, hematocrit 32.5, platelets 374. CMP: Sodium 135, potassium 4.6, chloride 101, serum bicarb 18, BUN 66, creatinine 2.71, glucose 139. Troponin is less than 0.012. Patient currently being evaluated on the general medical floor. Appears weak and deconditioned. He is resting in bed on 1 L/min nasal cannula. No respiratory distress noted. Complaining of a generalized headache, which he states is chronic. States that he has been short of breath on exertion for several months to almost 1 year. Particularly on exertion such as climbing stairs or walking to the bathroom. Denies history of COPD or asthma. Never tobacco smoker. Worked in an [employer] shop before he retired. Denies cough. Denies infectious-like symptoms. Current vital signs: Temperature 98 F, heart rate 78 bpm, blood pressure 145/54 mmHg, nontachypneic, SpO2 recorded at 91% on 1 L/min nasal cannula. The patient is seen today June 07, 2024 in follow-up on the regular medical floor. He is awake and alert in no acute distress. Sitting up at the bedside. Maintaining O2 saturations in the 90s on 3 L/min per nasal cannula. White count 9.8. Hemoglobin 8.9. Platelets 366. Sodium 140. Potassium 4.7. Bicarb 22. BUN 60. Creatinine 2.4. Glucose 97. He remains on DuoNeb and elations, Pulmicort inhalations. Lasix 80 mg IV every 12 hours. He is currently -1.1 L balance. Antibiotics in the form of cefepime and daptomycin for his diabetic ulcer of the right foot. X-ray revealed no osseous erosion or acute fracture. The patient is seen today June 08, 2024 in follow-up on the regular medical floor. He did have issues with worsening shortness of breath. He is currently on BiPAP 12/6 and 40% FiO2. White count 6.3. Hemoglobin 8.5. Platelets 357. Sodium 136. Potassium 5.8. Bicarb 21. BUN 64. Creatinine 2.4. Glucose 178. Chest x-ray continues to show evidence of congestive heart failure. He is currently on Lasix 80 mg IV every 12 hours. Continued on bronchodilators and steroids. Remains on antibiotics in the form of cefepime and daptomycin. Objective - Vital Signs Vital signs: Vital Signs Temp 98.4 F 06/08/24 07:14 Pulse 72 06/08/24 12:08 Resp 18 06/08/24 12:08 BP 127/53 06/08/24 07:14 Pulse Ox 96 06/08/24 07:14 FiO2 40 06/08/24 08:27 Intake & Output 06/07/24 06/08/24 06/08/24 18:59 06:59 18:59 Intake Total 1520 710 Output Total 668 625 Balance 852 85 Weight 110 kg Intake: IV 120 Sodium Chloride 0.9% 1000 120 mL @ 10 mLs/hr Intake, IV Titration 50 Amount Cefepime 1 gm In Sodium 50 Chloride 0.9% 50 ml @ 12. 5 mls/hr IVPB Q12H [facility] Rx #:[id number] Oral 1520 540 Output: Urine 650 625 Straight 625 Post Void Residual 18 Other: Voiding Method Urinal - Exam GENERAL EXAM: Alert, 73-year-old obese male, sitting up in the bedside, comfortable in no apparent distress. On BiPAP 12/6 and 40% FiO2. HEAD: Normocephalic and atraumatic EYES: Normal reaction of pupils, equal size. NOSE: Clear with pink turbinates. THROAT: No erythema or exudates. NECK: No masses, no JVD. CHEST: No chest wall deformity. LUNGS: Equal air entry with diminished lung sounds throughout. Crackles in the bilateral bases. CVS: S1 and S2 normal with no audible murmur, regular rhythm. No extra heart sounds ABDOMEN: No hepatosplenomegaly, active bowel sounds, no guarding or rigidity. Functional ileostomy SPINE: No scoliosis or deformity SKIN: Generalized erythemic plaques involving upper extremities, chest, back CENTRAL NERVOUS SYSTEM: No focal deficits, tone is normal in all 4 extremities. EXTREMITIES: There is no peripheral edema, clubbing, or cyanosis. Peripheral pulses are intact. Right foot is wrapped with Lloyd bandage. - Labs CBC & Chem 7: 06/08/24 03:08 06/08/24 03:08 Labs: Abnormal Lab Results - Last 24 Hours (Table) 06/07/24 06/08/24 06/08/24 Range/Units 16:50 03:08 03:08 RBC 2.79 L (4.40-5.60) X 10*6/uL Hgb 8.5 L (13.0-17.0) g/dL Hct 27.0 L (39.6-50.0) % MCHC 31.5 L (32.0-37.0) g/dL RDW 17.5 H (11.5-14.5) % Lymphocytes # 0.14 L (0.90-5.00) X 10*3/uL Monocytes # 0.08 L (0.20-1.00) X 10*3/uL Eosinophils # 0 L (0.04-0.35) X 10*3/uL NRBC/100 WBC Diff 0.04 H (0.00-0.01) X 10*3/uL Potassium 5.8 H (3.5-5.5) mmol/L Carbon Dioxide 20.5 L (21.6-31.8) mmol/L Anion Gap 14.50 H (4.00-12.00) mmol/L BUN 63.6 H (9.0-27.0) mg/dL Creatinine 2.4 H (0.6-1.5) mg/dL Est GFR (CKD-EPI) 28 L (>=60) BUN/Creatinine Ratio 26.50 H (12.00-20.00) Ratio Glucose 178 H (70-110) mg/dL POC Glucose (mg/dL) 170 H (70-110) mg/dL Albumin 3.6 L (3.8-4.9) g/dL Globulin 3.8 H (1.6-3.3) g/dL Albumin/Globulin Ratio 0.95 L (1.60-3.17) Ratio 06/08/24 06/08/24 Range/Units 06:19 10:49 RBC (4.40-5.60) X 10*6/uL Hgb (13.0-17.0) g/dL Hct (39.6-50.0) % MCHC (32.0-37.0) g/dL RDW (11.5-14.5) % Lymphocytes # (0.90-5.00) X 10*3/uL Monocytes # (0.20-1.00) X 10*3/uL Eosinophils # (0.04-0.35) X 10*3/uL NRBC/100 WBC Diff (0.00-0.01) X 10*3/uL Potassium (3.5-5.5) mmol/L Carbon Dioxide (21.6-31.8) mmol/L Anion Gap (4.00-12.00) mmol/L BUN (9.0-27.0) mg/dL Creatinine (0.6-1.5) mg/dL Est GFR (CKD-EPI) (>=60) BUN/Creatinine Ratio (12.00-20.00) Ratio Glucose (70-110) mg/dL POC Glucose (mg/dL) 218 H 284 H (70-110) mg/dL Albumin (3.8-4.9) g/dL Globulin (1.6-3.3) g/dL Albumin/Globulin Ratio (1.60-3.17) Ratio Microbiology - Last 24 Hours (Table) 06/06/24 14:05 Blood Culture - Preliminary Blood Assessment and Plan Assessment: Acute exacerbation of diastolic congestive heart failure Acute hypoxemic respiratory failure, secondary to above Acute on chronic shortness of breath History of CAD with previous PCI Diabetes mellitus Hypertension History of hyperlipidemia Acute on chronic kidney disease Chronic cephalgia History of UC with previous colectomy and ileostomy History of prostate cancer status post chemoradiation Chronic right heel wound, status post debridement on 05/28/2024 Obesity, with a BMI of 40.4 kg/m Never tobacco smoker Plan: The patient was seen and evaluated Chest x-ray, labs and medications reviewed Continued on BiPAP 12/6 and 40% as needed Alternate with nasal cannula as tolerated Continue bronchodilators, steroids Continue IV diuretics Nephrology is following Antibiotics per ID service We will continue to follow I have personally seen and examined the patient, performed the documentation and the assessment and plan as written. Number of minutes spent on the visit: 10 Dictation was produced using [employer] dictation software. Please excuse any grammatical, word or spelling errors.
[2024-06-08 16:11] LABS: % Iron Saturation 8.89 (15.00-50.00)
[2024-06-08 17:09] LABS: Influenza A Not Detected (Not Detectd); Influenza B Not Detected (Not Detectd); RSV Not Detected (Not Detectd)
[2024-06-08 17:25] LABS: Glucose,Whole Blood 399 mg/dL (70-110)
--- NOTE | 2024-06-08 17:56 | P.PN ---
Subjective Progress Note Date: 06/07/24 Principal diagnosis: Reason for follow-up is right heel diabetic foot ulcer with MRSA infection Patient is a 73-year-old male with a past medical history significant for diabetes mellitus hypertension hyperlipidemia osteomyelitis patient has been dealing with a chronic nonhealing wound to the right heel area for months now and is being treated in outpatient setting by Dr. Jernigan his electro optics engineer with recent outpatient culture positive for MRSA and is Proteus. On today's evaluation that is 06/07/2024, the patient continues to be afebrile, the patient is on 2 L nasal cannula oxygen and breathing comfortably, the Pt denies having any chest pain or cough, the patient denies having any abdominal pain no vomiting or any diarrhea denies any worsening pain to the right heel wound. Patient white count is 9.8 creatinine is 2.4 Objective - Vital Signs Vital signs: Vital Signs Temp 97.9 F 06/07/24 07:30 Pulse 88 06/07/24 08:18 Resp 20 06/07/24 07:45 BP 134/51 06/07/24 07:30 Pulse Ox 93 L 06/07/24 08:05 FiO2 Intake & Output 06/06/24 06/07/24 06/07/24 18:59 06:59 18:59 Intake Total 240 240 Output Total 1300 80 168 Balance -1060 -80 72 Weight 110 kg Intake: Oral 240 240 Output: Urine 1300 80 150 Straight 930 Post Void Residual 18 Other: # Voids 2 3 - Exam GENERAL DESCRIPTION: An elderly male lying in bed in no distress RESPIRATORY SYSTEM: Unlabored breathing , decreased breath sounds at bases HEART: S1 S2 regular rate and rhythm , ABDOMEN: Soft , no tenderness EXTREMITIES: Right heel with a necrotic wound no drainage - Labs CBC & Chem 7: 06/08/24 03:08 06/08/24 03:08 Labs: Abnormal Lab Results - Last 24 Hours (Table) 06/06/24 06/06/24 06/06/24 Range/Units 11:35 13:55 14:05 RBC (4.40-5.60) X 10*6/uL Hgb (13.0-17.0) g/dL Hct (39.6-50.0) % MCV (80.0-97.0) FL MCHC (32.0-37.0) g/dL RDW (11.5-14.5) % Lymphocytes # (0.90-5.00) X 10*3/uL Monocytes # (0.20-1.00) X 10*3/uL Eosinophils # (0.04-0.35) X 10*3/uL NRBC/100 WBC Diff (0.00-0.01) X 10*3/uL ESR 128 H (0-20) mm/Hr Anion Gap (4.00-12.00) mmol/L BUN (9.0-27.0) mg/dL Creatinine (0.6-1.5) mg/dL Est GFR (CKD-EPI) (>=60) BUN/Creatinine Ratio (12.00-20.00) Ratio POC Glucose (mg/dL) 130 H (70-110) mg/dL C-Reactive Protein (<1.0) mg/dL Albumin (3.8-4.9) g/dL Globulin (1.6-3.3) g/dL Albumin/Globulin Ratio (1.60-3.17) Ratio Urine Glucose (UA) Trace H (Negative) 06/06/24 06/07/24 06/07/24 Range/Units 14:05 04:26 04:26 RBC 2.95 L (4.40-5.60) X 10*6/uL Hgb 8.9 L (13.0-17.0) g/dL Hct 29.4 L (39.6-50.0) % MCV 99.7 H (80.0-97.0) FL MCHC 30.3 L (32.0-37.0) g/dL RDW 17.8 H (11.5-14.5) % Lymphocytes # 0.43 L (0.90-5.00) X 10*3/uL Monocytes # 1.32 H (0.20-1.00) X 10*3/uL Eosinophils # 0.37 H (0.04-0.35) X 10*3/uL NRBC/100 WBC Diff 0.07 H (0.00-0.01) X 10*3/uL ESR (0-20) mm/Hr Anion Gap 15.40 H (4.00-12.00) mmol/L BUN 59.7 H (9.0-27.0) mg/dL Creatinine 2.4 H (0.6-1.5) mg/dL Est GFR (CKD-EPI) 28 L (>=60) BUN/Creatinine Ratio 24.88 H (12.00-20.00) Ratio POC Glucose (mg/dL) (70-110) mg/dL C-Reactive Protein 7.2 H (<1.0) mg/dL Albumin 3.6 L (3.8-4.9) g/dL Globulin 3.4 H (1.6-3.3) g/dL Albumin/Globulin Ratio 1.06 L (1.60-3.17) Ratio Urine Glucose (UA) (Negative) Assessment and Plan (1) Diabetic infection of right foot Current Visit: Yes Status: Acute Code(s): E11.628 - TYPE 2 DIABETES MELLITUS WITH OTHER SKIN COMPLICATIONS; L08.9 - LOCAL INFECTION OF THE SKIN AND SUBCUTANEOUS TISSUE, UNSP SNOMED Code(s): 860420084 (2) MRSA (methicillin resistant staph aureus) culture positive Current Visit: Yes Status: Acute Code(s): Z22.322 - CARRIER OR SUSPECTED CARRIER OF METHICILLIN RESIS STAPH SNOMED Code(s): 386919268 (3) Diabetic ulcer of right foot Current Visit: No Status: Acute Code(s): E11.621 - TYPE 2 DIABETES MELLITUS WITH FOOT ULCER; L97.519 - NON-PRS CHRONIC ULCER OTH PRT RIGHT FOOT W UNSP SEVERITY SNOMED Code(s): 652101333 (4) Stage III pressure ulcer of right heel Current Visit: No Status: Acute Code(s): L89.613 - PRESSURE ULCER OF RIGHT HEEL, STAGE 3 SNOMED Code(s): 30902861444509 Plan: 1patient with a chronic nonhealing wound to the right heel which he has for couple of months the wound looks deep with a recent culture positive for Proteus and MRSA concerning for wound infection and question for possible deeper infection such as osteomyelitis as wound has been there for couple of months now 2-patient did have elevated creatinine would be high risk of nephrotoxicity from vancomycin which is typically used for MRSA infection 3- x-rays of the right heel with no evidence of any bony changes 4-we will advise local wound care with the Santyl followed by moist dressing keep the area of the pressure change daily, patient has been eval by his electro optics engineer who has consulted Dr. Carpenter for possible surgical debridement 5-patient will be treated daptomycin and cefepime on the basis of culture done on 05/29/2024 and monitor clinical course closely Dictation was produced using [employer] dictation software. please excuse any grammatical, word or spelling errors. Time with Patient: Less than 30
--- NOTE | 2024-06-08 17:58 | P.PN ---
Subjective Progress Note Date: 06/08/24 Principal diagnosis: Reason for follow-up is right heel diabetic foot ulcer with MRSA infection Patient is a 73-year-old male with a past medical history significant for diabetes mellitus hypertension hyperlipidemia osteomyelitis patient has been dealing with a chronic nonhealing wound to the right heel area for months now and is being treated in outpatient setting by Dr. 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 On today's evaluation that is 06/08/2024, patient did not have any fever and denies any chills, patient is breathing comfortably on 2 L current oxygen patient with no chest pain or cough patient did not have any abdominal pain nausea vomiting or any loose stools, denies pain to the right heel wound. Patient white count 6.31, creatinine is 2.4 blood cultures are pending Objective - Vital Signs Vital signs: Vital Signs Temp 98.4 F 06/08/24 07:14 Pulse 72 06/08/24 12:08 Resp 18 06/08/24 12:08 BP 127/53 06/08/24 07:14 Pulse Ox 96 06/08/24 07:14 FiO2 40 06/08/24 08:27 Intake & Output 06/07/24 06/08/24 06/08/24 18:59 06:59 18:59 Intake Total 1520 710 Output Total 668 625 Balance 852 85 Weight 110 kg Intake: IV 120 Sodium Chloride 0.9% 1000 120 mL @ 10 mLs/hr Intake, IV Titration 50 Amount Cefepime 1 gm In Sodium 50 Chloride 0.9% 50 ml @ 12. 5 mls/hr IVPB Q12H [facility] Rx #:[id number] Oral 1520 540 Output: Urine 650 625 Straight 625 Post Void Residual 18 Other: Voiding Method Urinal - Exam GENERAL DESCRIPTION: An elderly male lying in bed in no distress RESPIRATORY SYSTEM: Unlabored breathing , decreased breath sounds at bases HEART: S1 S2 regular rate and rhythm , ABDOMEN: Soft , no tenderness EXTREMITIES: Right heel is currently dressed - Labs CBC & Chem 7: 06/08/24 03:08 06/08/24 03:08 Labs: Abnormal Lab Results - Last 24 Hours (Table) 06/07/24 06/08/24 06/08/24 Range/Units 16:50 03:08 03:08 RBC 2.79 L (4.40-5.60) X 10*6/uL Hgb 8.5 L (13.0-17.0) g/dL Hct 27.0 L (39.6-50.0) % MCHC 31.5 L (32.0-37.0) g/dL RDW 17.5 H (11.5-14.5) % Lymphocytes # 0.14 L (0.90-5.00) X 10*3/uL Monocytes # 0.08 L (0.20-1.00) X 10*3/uL Eosinophils # 0 L (0.04-0.35) X 10*3/uL NRBC/100 WBC Diff 0.04 H (0.00-0.01) X 10*3/uL Potassium 5.8 H (3.5-5.5) mmol/L Carbon Dioxide 20.5 L (21.6-31.8) mmol/L Anion Gap 14.50 H (4.00-12.00) mmol/L BUN 63.6 H (9.0-27.0) mg/dL Creatinine 2.4 H (0.6-1.5) mg/dL Est GFR (CKD-EPI) 28 L (>=60) BUN/Creatinine Ratio 26.50 H (12.00-20.00) Ratio Glucose 178 H (70-110) mg/dL POC Glucose (mg/dL) 170 H (70-110) mg/dL Albumin 3.6 L (3.8-4.9) g/dL Globulin 3.8 H (1.6-3.3) g/dL Albumin/Globulin Ratio 0.95 L (1.60-3.17) Ratio 06/08/24 06/08/24 Range/Units 06:19 10:49 RBC (4.40-5.60) X 10*6/uL Hgb (13.0-17.0) g/dL Hct (39.6-50.0) % MCHC (32.0-37.0) g/dL RDW (11.5-14.5) % Lymphocytes # (0.90-5.00) X 10*3/uL Monocytes # (0.20-1.00) X 10*3/uL Eosinophils # (0.04-0.35) X 10*3/uL NRBC/100 WBC Diff (0.00-0.01) X 10*3/uL Potassium (3.5-5.5) mmol/L Carbon Dioxide (21.6-31.8) mmol/L Anion Gap (4.00-12.00) mmol/L BUN (9.0-27.0) mg/dL Creatinine (0.6-1.5) mg/dL Est GFR (CKD-EPI) (>=60) BUN/Creatinine Ratio (12.00-20.00) Ratio Glucose (70-110) mg/dL POC Glucose (mg/dL) 218 H 284 H (70-110) mg/dL Albumin (3.8-4.9) g/dL Globulin (1.6-3.3) g/dL Albumin/Globulin Ratio (1.60-3.17) Ratio Microbiology - Last 24 Hours (Table) 06/06/24 14:05 Blood Culture - Preliminary Blood Assessment and Plan (1) Diabetic infection of right foot Current Visit: Yes Status: Acute Code(s): E11.628 - TYPE 2 DIABETES MELLITUS WITH OTHER SKIN COMPLICATIONS; L08.9 - LOCAL INFECTION OF THE SKIN AND SUBCUTANEOUS TISSUE, UNSP SNOMED Code(s): 821348775 (2) MRSA (methicillin resistant staph aureus) culture positive Current Visit: Yes Status: Acute Code(s): Z22.322 - CARRIER OR SUSPECTED CARRIER OF METHICILLIN RESIS STAPH SNOMED Code(s): 994799218 (3) Diabetic ulcer of right foot Current Visit: No Status: Acute Code(s): E11.621 - TYPE 2 DIABETES MELLITUS WITH FOOT ULCER; L97.519 - NON-PRS CHRONIC ULCER OTH PRT RIGHT FOOT W UNSP SEVERITY SNOMED Code(s): 381367839 (4) Stage III pressure ulcer of right heel Current Visit: No Status: Acute Code(s): L89.613 - PRESSURE ULCER OF RIGHT HEEL, STAGE 3 SNOMED Code(s): 64876223734276 Plan: 1patient with a chronic nonhealing wound to the right heel which he has for couple of months the wound looks deep with a recent culture positive for Proteus and MRSA concerning for wound infection and question for possible deeper infection such as osteomyelitis as wound has been there for couple of months now 2-patient did have elevated creatinine would be high risk of nephrotoxicity from vancomycin which is typically used for MRSA infection 3- x-rays of the right heel with no evidence of any bony changes 4-patient has been evaluated by Dr. Carpenter and did have surgical debridement completed on 06/07/2024 5-patient currently being treated daptomycin and cefepime on the basis of culture done on 05/29/2024 while inpatient hopefully transition to oral antibiotics on discharge Dictation was produced using [employer] dictation software. please excuse any grammatical, word or spelling errors. Time with Patient: Less than 30
[2024-06-08 21:15] LABS: Glucose,Whole Blood 446 mg/dL (70-110)
[2024-06-08] MEDS: INSULIN ASPART (NovoLOG) 100 UNIT/ML VIAL SQ STA (21:35)
--- NOTE | 2024-06-09 03:13 | PN ---
PROGRESS NOTE DATE OF SERVICE: 06/08/2024 SUBJECTIVE: This is a 73-year-old gentleman who was admitted with acute on chronic CHF, also had right heel infection. Multiple consultants are following the patient closely. The cultures are negative so far. PAST MEDICAL HISTORY: Reviewed. REVIEW OF SYSTEMS: A 14-point review of systems is negative except as mentioned earlier. CURRENT MEDICATIONS: Reviewed. PHYSICAL EXAMINATION: VITAL SIGNS: Pulse is 71, blood pressure 120/73, respirations 18. CHEST: A few scattered rhonchi. ABDOMEN: Soft. NERVOUS SYSTEM: Nonfocal. LABS: Multiple abnormalities including creatinine of 2.4 which is stable. Chest x-ray, which I reviewed personally, done today showed some CHF. ASSESSMENT: 1. Acute on chronic congestive heart failure, acute exacerbation. 2. Right heel infection. 3. Acute hypoxic respiratory failure, multifactorial, chronic obstructive pulmonary disease and congestive heart failure acute exacerbation. 4. Prostate cancer, status post chemoradiation. 5. Diabetes mellitus type 2. 6. Multiple complex medical issues. RECOMMENDATIONS: Recommend to continue current management and closely follow with Cardiology and Pulmonology. Monitor creatinine closely. The patient is on IV Lasix. Hemoglobin has gone down to 8.5, stable at this time. Potassium 5.8. We will repeat labs tomorrow and continue to monitor. Avoid nephrotoxic medications. MMODL / IJN: [id number] /
[2024-06-09 06:25] LABS: Glucose,Whole Blood 212 mg/dL (70-110)
--- NOTE | 2024-06-09 09:54 | P.PN ---
Subjective Patient is seen in follow-up for acute kidney injury on chronic kidney disease. Creatinine 2.4 yesterday. States he has been voiding much. On IV Lasix. Does get dyspneic with exertion. Requiring more oxygen support. Vital signs are stable. General: No acute distress. HEENT: Head exam is unremarkable. On nasal cannula. LUNGS: No audible rhonchi or wheezes. HEART: Rate and Rhythm are regular. ABDOMEN: Nontender. EXTREMITITES: 1+ edema. Chronic changes noted. Objective - Vital Signs Vital signs: Vital Signs Temp 97.5 F L 06/09/24 07:09 Pulse 69 06/09/24 07:09 Resp 18 06/09/24 07:09 BP 137/53 06/09/24 07:09 Pulse Ox 89 L 06/09/24 07:09 FiO2 40 06/08/24 08:27 Intake & Output 06/08/24 06/09/24 06/09/24 18:59 06:59 18:59 Intake Total 1860 Balance 1860 Weight 109 kg Intake: IV 190 Sodium Chloride 0.9% 1000 190 mL @ 10 mLs/hr Intake, IV Titration 50 Amount DAPTOmycin 350 mg In 50 Sodium Chloride 0.9% 50 ml @ 100 mls/hr IVPB Q48H [facility] Rx#:[id number] Oral 1620 Other: Voiding Method Urinal External Catheter Diaper # Voids 1 - Labs CBC & Chem 7: 06/08/24 03:08 06/08/24 03:08 Labs: Abnormal Lab Results - Last 24 Hours (Table) 06/08/24 06/08/24 06/08/24 Range/Units 03:08 03:08 03:08 RBC 2.79 L (4.40-5.60) X 10*6/uL Hgb 8.5 L (13.0-17.0) g/dL Hct 27.0 L (39.6-50.0) % MCHC 31.5 L (32.0-37.0) g/dL RDW 17.5 H (11.5-14.5) % Lymphocytes # 0.14 L (0.90-5.00) X 10*3/uL Monocytes # 0.08 L (0.20-1.00) X 10*3/uL Eosinophils # 0 L (0.04-0.35) X 10*3/uL NRBC/100 WBC Diff 0.04 H (0.00-0.01) X 10*3/uL Potassium 5.8 H (3.5-5.5) mmol/L Carbon Dioxide 20.5 L (21.6-31.8) mmol/L Anion Gap 14.50 H (4.00-12.00) mmol/L BUN 63.6 H (9.0-27.0) mg/dL Creatinine 2.4 H (0.6-1.5) mg/dL Est GFR (CKD-EPI) 28 L (>=60) BUN/Creatinine Ratio 26.50 H (12.00-20.00) Ratio Glucose 178 H (70-110) mg/dL POC Glucose (mg/dL) (70-110) mg/dL Iron 24 L (65-175) UG/DL % Saturation 8.89 L (15.00-50.00) Transferrin 193.0 L (204.0-354.0) mg/dL Ferritin 496.0 H (22.0-322.0) ng/mL Albumin 3.6 L (3.8-4.9) g/dL Globulin 3.8 H (1.6-3.3) g/dL Albumin/Globulin Ratio 0.95 L (1.60-3.17) Ratio 06/08/24 06/08/24 06/08/24 Range/Units 10:49 17:23 21:14 RBC (4.40-5.60) X 10*6/uL Hgb (13.0-17.0) g/dL Hct (39.6-50.0) % MCHC (32.0-37.0) g/dL RDW (11.5-14.5) % Lymphocytes # (0.90-5.00) X 10*3/uL Monocytes # (0.20-1.00) X 10*3/uL Eosinophils # (0.04-0.35) X 10*3/uL NRBC/100 WBC Diff (0.00-0.01) X 10*3/uL Potassium (3.5-5.5) mmol/L Carbon Dioxide (21.6-31.8) mmol/L Anion Gap (4.00-12.00) mmol/L BUN (9.0-27.0) mg/dL Creatinine (0.6-1.5) mg/dL Est GFR (CKD-EPI) (>=60) BUN/Creatinine Ratio (12.00-20.00) Ratio Glucose (70-110) mg/dL POC Glucose (mg/dL) 284 H 399 H 446 H (70-110) mg/dL Iron (65-175) UG/DL % Saturation (15.00-50.00) Transferrin (204.0-354.0) mg/dL Ferritin (22.0-322.0) ng/mL Albumin (3.8-4.9) g/dL Globulin (1.6-3.3) g/dL Albumin/Globulin Ratio (1.60-3.17) Ratio 06/09/24 Range/Units 06:23 RBC (4.40-5.60) X 10*6/uL Hgb (13.0-17.0) g/dL Hct (39.6-50.0) % MCHC (32.0-37.0) g/dL RDW (11.5-14.5) % Lymphocytes # (0.90-5.00) X 10*3/uL Monocytes # (0.20-1.00) X 10*3/uL Eosinophils # (0.04-0.35) X 10*3/uL NRBC/100 WBC Diff (0.00-0.01) X 10*3/uL Potassium (3.5-5.5) mmol/L Carbon Dioxide (21.6-31.8) mmol/L Anion Gap (4.00-12.00) mmol/L BUN (9.0-27.0) mg/dL Creatinine (0.6-1.5) mg/dL Est GFR (CKD-EPI) (>=60) BUN/Creatinine Ratio (12.00-20.00) Ratio Glucose (70-110) mg/dL POC Glucose (mg/dL) 212 H (70-110) mg/dL Iron (65-175) UG/DL % Saturation (15.00-50.00) Transferrin (204.0-354.0) mg/dL Ferritin (22.0-322.0) ng/mL Albumin (3.8-4.9) g/dL Globulin (1.6-3.3) g/dL Albumin/Globulin Ratio (1.60-3.17) Ratio Microbiology - Last 24 Hours (Table) 06/06/24 14:05 Blood Culture - Preliminary Blood Assessment and Plan Plan: Assessment: 1. Acute kidney injury secondary to ATN secondary to cardiorenal syndrome. UA benign. No hydronephrosis noted on imaging. Creatinine 2.4 yesterday. 2. Chronic kidney disease stage IV with baseline creatinine near 2. 3. Volume overload. 4. Coronary disease with cardiac stents. 5. Hypertension with chronic kidney disease. Stable. 6. Metabolic acidosis secondary to chronic kidney disease maintained on oral bicarb. 7. Diabetes mellitus. 8. Right foot ulcer status post debridement. On antibiotics. 9. 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 10. Anemia of chronic kidney disease. Iron deficiency noted. Plan: Maintain IV Lasix. Add metolazone. Hold Farxiga due to active infection. Avoid nephrotoxins. Continue to monitor renal function and urine output. Add IV iron. Morning labs pending.
[2024-06-09] MEDS: SODIUM FERRIC GLUCONAT-SUCROSE 125 MG in SODIUM CHLORIDE 0.9% 100 ML IVPB SCH (10:41)
[2024-06-09 10:45] LABS: Glucose,Whole Blood 172 mg/dL (70-110)
[2024-06-09 11:11] LABS: HCT 25.4 % (39.6-50.0); MCH 30.5 pg (27.0-32.0); MCHC 31.5 g/dL (32.0-37.0); MCV 96.9 FL (80.0-97.0); Mean Platelet Volume 10.9 FL (9.5-12.2); NRBC Per 100 WBC 0.12 X 10*3/uL (0.00-0.01); Platelet Count 339 X 10*3/uL (140-440); RBC 2.62 X 10*6/uL (4.40-5.60); RDW 17.5 % (11.5-14.5); WBC 10.17 X 10*3/uL (4.50-10.00)
[2024-06-09 11:12] LABS: Basophils # (A) 0.01 X 10*3/uL (0.00-0.10); Basophils % (A) 0.1 %; Eosinophils # (A) 0 X 10*3/uL (0.04-0.35); Eosinophils % (A) 0 %; Lymphocytes # (A) 0.17 X 10*3/uL (0.90-5.00); Lymphocytes % (A) 1.7 %; Monocytes # (A) 0.77 X 10*3/uL (0.20-1.00); Monocytes % (A) 7.6 %; Neutrophils # (A) 9.18 X 10*3/uL (1.80-7.70); Neutrophils % (A) 90.2 %
[2024-06-09 11:19] LABS: ALT 16 U/L (10-49); AST 17 U/L (14-35); Albumin 3.7 g/dL (3.8-4.9); Alkaline Phosphatase 99 U/L (41-126); BUN/Creat Ratio 27.53 Ratio (12.00-20.00); Blood Urea Nitrogen 93.6 mg/dL (9.0-27.0); Calcium 9.7 mg/dL (8.7-10.3); Carbon Dioxide 21.4 mmol/L (21.6-31.8); Chloride 98 mmol/L (96-109); Globulin 3.7 g/dL (1.6-3.3); Glucose 234 mg/dL (70-110); Magnesium 2.4 mg/dL (1.5-2.4); Potassium 5.8 mmol/L (3.5-5.5); Sodium 136 mmol/L (135-145); Total Bilirubin 0.5 mg/dL (0.3-1.2); Total Protein 7.4 g/dL (6.2-8.2)
[2024-06-09] MEDS: metOLazone 5 MG TAB PO SCH (11:37)
--- NOTE | 2024-06-09 13:19 | P.PN ---
Subjective Progress Note Date: 06/09/24 Patient is a 73-year-old male with past medical history significant for hypertension, hyperlipidemia, coronary artery disease with previous PCI/stenting, heart failure, chronic kidney disease, diabetes mellitus, chronic right heel wound, ulcerative colitis with previous colectomy and ileostomy. Of note, patient had a recent hospitalization late May and was just discharged 05/31/2024 for CHF exacerbation. Echocardiogram done during this hospitalization estimating a preserved left ventricular ejection fraction of 55 to 60%. Limited study, but no acute valvular abnormalities reported. Presented the emergency department on 06/04/2024 with a chief complaint of shortness of breath, mostly on exertion. Chest x-ray showing cardiomegaly, mild pulmonary vascular congestion, and a small pleural effusion on the left. NT proBNP elevated 2550. Currently receiving Lasix 80 mg twice daily. CBC: WBC count 10.2, hemoglobin 10.4, hematocrit 32.5, platelets 374. CMP: Sodium 135, potassium 4.6, chloride 101, serum bicarb 18, BUN 66, creatinine 2.71, glucose 139. Troponin is less than 0.012. Patient currently being evaluated on the general medical floor. Appears weak and deconditioned. He is resting in bed on 1 L/min nasal cannula. No respiratory distress noted. Complaining of a generalized headache, which he states is chronic. States that he has been short of breath on exertion for several months to almost 1 year. Particularly on exertion such as climbing stairs or walking to the bathroom. Denies history of COPD or asthma. Never tobacco smoker. Worked in an [employer] shop before he retired. Denies cough. Denies infectious-like symptoms. Current vital signs: Temperature 98 F, heart rate 78 bpm, blood pressure 145/54 mmHg, nontachypneic, SpO2 recorded at 91% on 1 L/min nasal cannula. The patient is seen today June 07, 2024 in follow-up on the regular medical floor. He is awake and alert in no acute distress. Sitting up at the bedside. Maintaining O2 saturations in the 90s on 3 L/min per nasal cannula. White count 9.8. Hemoglobin 8.9. Platelets 366. Sodium 140. Potassium 4.7. Bicarb 22. BUN 60. Creatinine 2.4. Glucose 97. He remains on DuoNeb and elations, Pulmicort inhalations. Lasix 80 mg IV every 12 hours. He is currently -1.1 L balance. Antibiotics in the form of cefepime and daptomycin for his diabetic ulcer of the right foot. X-ray revealed no osseous erosion or acute fracture. The patient is seen today June 08, 2024 in follow-up on the regular medical floor. He did have issues with worsening shortness of breath. He is currently on BiPAP 12/6 and 40% FiO2. White count 6.3. Hemoglobin 8.5. Platelets 357. Sodium 136. Potassium 5.8. Bicarb 21. BUN 64. Creatinine 2.4. Glucose 178. Chest x-ray continues to show evidence of congestive heart failure. He is currently on Lasix 80 mg IV every 12 hours. Continued on bronchodilators and steroids. Remains on antibiotics in the form of cefepime and daptomycin. The patient is seen today June 09, 2024 in follow-up on the regular medical floor. He is currently resting comfortably in bed. Awake and alert in no acute distress. Breathing easier today compared to yesterday. He is currently on BiPAP 12/6 and 40% FiO2. White count 10.1. Hemoglobin 8.0. Platelets 339. Sodium 136. Potassium 5.8. Bicarb 21. BUN 94. Creatinine 3.4. Glucose 234. He remains on DuoNeb and elations, Pulmicort inhalations, Solu-Medrol. Remains on IV diuretics. Remains on cefepime and daptomycin. Receiving Lokelma. Objective - Vital Signs Vital signs: Vital Signs Temp 97.5 F L 06/09/24 07:09 Pulse 80 06/09/24 11:02 Resp 18 06/09/24 07:09 BP 137/53 06/09/24 07:09 Pulse Ox 89 L 06/09/24 07:09 FiO2 40 06/09/24 10:45 Intake & Output 06/08/24 06/09/24 06/09/24 18:59 06:59 18:59 Intake Total 1860 Balance 1860 Weight 109 kg Intake: IV 190 Sodium Chloride 0.9% 1000 190 mL @ 10 mLs/hr Intake, IV Titration 50 Amount DAPTOmycin 350 mg In 50 Sodium Chloride 0.9% 50 ml @ 100 mls/hr IVPB Q48H [facility] Rx#:[id number] Oral 1620 Other: Voiding Method Urinal External Catheter Diaper # Voids 1 - Exam GENERAL EXAM: Alert, 73-year-old obese male, comfortable in no apparent distress. On BiPAP 12/6 and 40% FiO2. HEAD: Normocephalic and atraumatic EYES: Normal reaction of pupils, equal size. NOSE: Clear with pink turbinates. THROAT: No erythema or exudates. NECK: No masses, no JVD. CHEST: No chest wall deformity. LUNGS: Equal air entry with diminished lung sounds throughout. Crackles in the bilateral bases. CVS: S1 and S2 normal with no audible murmur, regular rhythm. No extra heart sounds ABDOMEN: No hepatosplenomegaly, active bowel sounds, no guarding or rigidity. Functional ileostomy SPINE: No scoliosis or deformity SKIN: Generalized erythemic plaques involving upper extremities, chest, back CENTRAL NERVOUS SYSTEM: No focal deficits, tone is normal in all 4 extremities. EXTREMITIES: There is no peripheral edema, clubbing, or cyanosis. Peripheral pulses are intact. Right foot is wrapped with Lloyd bandage. - Labs CBC & Chem 7: 06/09/24 03:47 06/09/24 03:47 Labs: Abnormal Lab Results - Last 24 Hours (Table) 06/08/24 06/08/24 06/08/24 Range/Units 03:08 17:23 21:14 WBC (4.50-10.00) X 10*3/uL RBC (4.40-5.60) X 10*6/uL Hgb (13.0-17.0) g/dL Hct (39.6-50.0) % MCHC (32.0-37.0) g/dL RDW (11.5-14.5) % Neutrophils # (1.80-7.70) X 10*3/uL Lymphocytes # (0.90-5.00) X 10*3/uL Eosinophils # (0.04-0.35) X 10*3/uL NRBC/100 WBC Diff (0.00-0.01) X 10*3/uL Potassium (3.5-5.5) mmol/L Carbon Dioxide (21.6-31.8) mmol/L Anion Gap (4.00-12.00) mmol/L BUN (9.0-27.0) mg/dL Creatinine (0.6-1.5) mg/dL Est GFR (CKD-EPI) (>=60) BUN/Creatinine Ratio (12.00-20.00) Ratio Glucose (70-110) mg/dL POC Glucose (mg/dL) 399 H 446 H (70-110) mg/dL Iron 24 L (65-175) UG/DL % Saturation 8.89 L (15.00-50.00) Transferrin 193.0 L (204.0-354.0) mg/dL Ferritin 496.0 H (22.0-322.0) ng/mL Albumin (3.8-4.9) g/dL Globulin (1.6-3.3) g/dL Albumin/Globulin Ratio (1.60-3.17) Ratio 06/09/24 06/09/24 06/09/24 Range/Units 03:47 03:47 06:23 WBC 10.17 H (4.50-10.00) X 10*3/uL RBC 2.62 L (4.40-5.60) X 10*6/uL Hgb 8.0 L (13.0-17.0) g/dL Hct 25.4 L (39.6-50.0) % MCHC 31.5 L (32.0-37.0) g/dL RDW 17.5 H (11.5-14.5) % Neutrophils # 9.18 H (1.80-7.70) X 10*3/uL Lymphocytes # 0.17 L (0.90-5.00) X 10*3/uL Eosinophils # 0 L (0.04-0.35) X 10*3/uL NRBC/100 WBC Diff 0.12 H (0.00-0.01) X 10*3/uL Potassium 5.8 H (3.5-5.5) mmol/L Carbon Dioxide 21.4 L (21.6-31.8) mmol/L Anion Gap 16.60 H (4.00-12.00) mmol/L BUN 93.6 H (9.0-27.0) mg/dL Creatinine 3.4 H (0.6-1.5) mg/dL Est GFR (CKD-EPI) 18 L (>=60) BUN/Creatinine Ratio 27.53 H (12.00-20.00) Ratio Glucose 234 H (70-110) mg/dL POC Glucose (mg/dL) 212 H (70-110) mg/dL Iron (65-175) UG/DL % Saturation (15.00-50.00) Transferrin (204.0-354.0) mg/dL Ferritin (22.0-322.0) ng/mL Albumin 3.7 L (3.8-4.9) g/dL Globulin 3.7 H (1.6-3.3) g/dL Albumin/Globulin Ratio 1.00 L (1.60-3.17) Ratio 06/09/24 Range/Units 10:42 WBC (4.50-10.00) X 10*3/uL RBC (4.40-5.60) X 10*6/uL Hgb (13.0-17.0) g/dL Hct (39.6-50.0) % MCHC (32.0-37.0) g/dL RDW (11.5-14.5) % Neutrophils # (1.80-7.70) X 10*3/uL Lymphocytes # (0.90-5.00) X 10*3/uL Eosinophils # (0.04-0.35) X 10*3/uL NRBC/100 WBC Diff (0.00-0.01) X 10*3/uL Potassium (3.5-5.5) mmol/L Carbon Dioxide (21.6-31.8) mmol/L Anion Gap (4.00-12.00) mmol/L BUN (9.0-27.0) mg/dL Creatinine (0.6-1.5) mg/dL Est GFR (CKD-EPI) (>=60) BUN/Creatinine Ratio (12.00-20.00) Ratio Glucose (70-110) mg/dL POC Glucose (mg/dL) 172 H (70-110) mg/dL Iron (65-175) UG/DL % Saturation (15.00-50.00) Transferrin (204.0-354.0) mg/dL Ferritin (22.0-322.0) ng/mL Albumin (3.8-4.9) g/dL Globulin (1.6-3.3) g/dL Albumin/Globulin Ratio (1.60-3.17) Ratio Microbiology - Last 24 Hours (Table) 02/06/25 14:05 Blood Culture - Preliminary Blood Assessment and Plan Assessment: Acute exacerbation of diastolic congestive heart failure Acute hypoxemic respiratory failure, secondary to above Acute on chronic shortness of breath Acute on chronic kidney disease Hyperkalemia secondary to above Acute on chronic anemia secondary to above History of CAD with previous PCI Diabetes mellitus with hyperglycemia Hypertension History of hyperlipidemia Chronic cephalgia History of UC with previous colectomy and ileostomy History of prostate cancer status post chemoradiation Chronic right heel wound, status post debridement on 05/28/2024 Obesity, with a BMI of 38.8 kg/m Never tobacco smoker Plan: The patient was seen and evaluated Labs and medications reviewed BiPAP 12/6 and 40% as needed Alternate with nasal cannula as tolerated Continue bronchodilators, steroids Continued on Lokelma Continue IV diuretics Metolazone added We will continue to follow I have personally seen and examined the patient, performed the documentation and the assessment and plan as written. Number of minutes spent on the visit: 10 Dictation was produced using [employer] dictation software. Please excuse any grammatical, word or spelling errors.
[2024-06-09] MEDS: SODIUM BICARB 8.4% 50 ML SYR (1 MEQ/ML) IV STA (13:27)
--- NOTE | 2024-06-09 14:35 | P.PN ---
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 On today's evaluation that is 06/09/2024, Patient is afebrile patient is currently on 3 L current oxygen and denies having any shortness of breath, the patient denies any chest pain or cough, the patient denies any nausea vomiting did not have any abdominal pain and no diarrhea, no pain to the right heel area. Patient white count is 10.17 creatinine is 3.4 blood culture negative Objective - Vital Signs Vital signs: Vital Signs Temp 97.5 F L 06/09/24 07:09 Pulse 80 06/09/24 11:02 Resp 18 06/09/24 07:09 BP 137/53 06/09/24 07:09 Pulse Ox 89 L 06/09/24 07:09 FiO2 40 06/09/24 13:12 Intake & Output 06/08/24 06/09/24 06/09/24 18:59 06:59 18:59 Intake Total 1860 Balance 1860 Weight 109 kg Intake: IV 190 Sodium Chloride 0.9% 1000 190 mL @ 10 mLs/hr Intake, IV Titration 50 Amount DAPTOmycin 350 mg In 50 Sodium Chloride 0.9% 50 ml @ 100 mls/hr IVPB Q48H [facility] Rx#:[id number] Oral 1620 Other: Voiding Method Urinal External Catheter Diaper # Voids 1 - Exam GENERAL DESCRIPTION: An elderly male lying in bed in no distress RESPIRATORY SYSTEM: Unlabored breathing , decreased breath sounds at bases HEART: S1 S2 regular rate and rhythm , ABDOMEN: Soft , no tenderness EXTREMITIES: Right heel is currently dressed - Labs CBC & Chem 7: 06/09/24 03:47 06/09/24 03:47 Labs: Abnormal Lab Results - Last 24 Hours (Table) 06/08/24 06/08/24 06/08/24 Range/Units 03:08 17:23 21:14 WBC (4.50-10.00) X 10*3/uL RBC (4.40-5.60) X 10*6/uL Hgb (13.0-17.0) g/dL Hct (39.6-50.0) % MCHC (32.0-37.0) g/dL RDW (11.5-14.5) % Neutrophils # (1.80-7.70) X 10*3/uL Lymphocytes # (0.90-5.00) X 10*3/uL Eosinophils # (0.04-0.35) X 10*3/uL NRBC/100 WBC Diff (0.00-0.01) X 10*3/uL Potassium (3.5-5.5) mmol/L Carbon Dioxide (21.6-31.8) mmol/L Anion Gap (4.00-12.00) mmol/L BUN (9.0-27.0) mg/dL Creatinine (0.6-1.5) mg/dL Est GFR (CKD-EPI) (>=60) BUN/Creatinine Ratio (12.00-20.00) Ratio Glucose (70-110) mg/dL POC Glucose (mg/dL) 399 H 446 H (70-110) mg/dL Iron 24 L (65-175) UG/DL % Saturation 8.89 L (15.00-50.00) Transferrin 193.0 L (204.0-354.0) mg/dL Ferritin 496.0 H (22.0-322.0) ng/mL Albumin (3.8-4.9) g/dL Globulin (1.6-3.3) g/dL Albumin/Globulin Ratio (1.60-3.17) Ratio 06/09/24 06/09/24 06/09/24 Range/Units 03:47 03:47 06:23 WBC 10.17 H (4.50-10.00) X 10*3/uL RBC 2.62 L (4.40-5.60) X 10*6/uL Hgb 8.0 L (13.0-17.0) g/dL Hct 25.4 L (39.6-50.0) % MCHC 31.5 L (32.0-37.0) g/dL RDW 17.5 H (11.5-14.5) % Neutrophils # 9.18 H (1.80-7.70) X 10*3/uL Lymphocytes # 0.17 L (0.90-5.00) X 10*3/uL Eosinophils # 0 L (0.04-0.35) X 10*3/uL NRBC/100 WBC Diff 0.12 H (0.00-0.01) X 10*3/uL Potassium 5.8 H (3.5-5.5) mmol/L Carbon Dioxide 21.4 L (21.6-31.8) mmol/L Anion Gap 16.60 H (4.00-12.00) mmol/L BUN 93.6 H (9.0-27.0) mg/dL Creatinine 3.4 H (0.6-1.5) mg/dL Est GFR (CKD-EPI) 18 L (>=60) BUN/Creatinine Ratio 27.53 H (12.00-20.00) Ratio Glucose 234 H (70-110) mg/dL POC Glucose (mg/dL) 212 H (70-110) mg/dL Iron (65-175) UG/DL % Saturation (15.00-50.00) Transferrin (204.0-354.0) mg/dL Ferritin (22.0-322.0) ng/mL Albumin 3.7 L (3.8-4.9) g/dL Globulin 3.7 H (1.6-3.3) g/dL Albumin/Globulin Ratio 1.00 L (1.60-3.17) Ratio 06/09/24 Range/Units 10:42 WBC (4.50-10.00) X 10*3/uL RBC (4.40-5.60) X 10*6/uL Hgb (13.0-17.0) g/dL Hct (39.6-50.0) % MCHC (32.0-37.0) g/dL RDW (11.5-14.5) % Neutrophils # (1.80-7.70) X 10*3/uL Lymphocytes # (0.90-5.00) X 10*3/uL Eosinophils # (0.04-0.35) X 10*3/uL NRBC/100 WBC Diff (0.00-0.01) X 10*3/uL Potassium (3.5-5.5) mmol/L Carbon Dioxide (21.6-31.8) mmol/L Anion Gap (4.00-12.00) mmol/L BUN (9.0-27.0) mg/dL Creatinine (0.6-1.5) mg/dL Est GFR (CKD-EPI) (>=60) BUN/Creatinine Ratio (12.00-20.00) Ratio Glucose (70-110) mg/dL POC Glucose (mg/dL) 172 H (70-110) mg/dL Iron (65-175) UG/DL % Saturation (15.00-50.00) Transferrin (204.0-354.0) mg/dL Ferritin (22.0-322.0) ng/mL Albumin (3.8-4.9) g/dL Globulin (1.6-3.3) g/dL Albumin/Globulin Ratio (1.60-3.17) Ratio Microbiology - Last 24 Hours (Table) 06/06/24 14:05 Blood Culture - Preliminary Blood Assessment and Plan (1) Diabetic infection of right foot Current Visit: Yes Status: Acute Code(s): E11.628 - TYPE 2 DIABETES MELLITUS WITH OTHER SKIN COMPLICATIONS; L08.9 - LOCAL INFECTION OF THE SKIN AND SUBCUTANEOUS TISSUE, UNSP SNOMED Code(s): 313423462 (2) MRSA (methicillin resistant staph aureus) culture positive Current Visit: Yes Status: Acute Code(s): Z22.322 - CARRIER OR SUSPECTED CARRIER OF METHICILLIN RESIS STAPH SNOMED Code(s): 800586868 (3) Diabetic ulcer of right foot Current Visit: No Status: Acute Code(s): E11.621 - TYPE 2 DIABETES MELLITUS WITH FOOT ULCER; L97.519 - NON-PRS CHRONIC ULCER OTH PRT RIGHT FOOT W UNSP SEVERITY SNOMED Code(s): 002924466 (4) Stage III pressure ulcer of right heel Current Visit: No Status: Acute Code(s): L89.613 - PRESSURE ULCER OF RIGHT HEEL, STAGE 3 SNOMED Code(s): 93374834600316 Plan: 1patient with a chronic nonhealing wound to the right heel which he has for couple of months the wound looks deep with a recent culture positive for Proteus and MRSA concerning for wound infection and question for possible deeper infection such as osteomyelitis as wound has been there for couple of months now 2-patient did have elevated creatinine would be high risk of nephrotoxicity from vancomycin which is typically used for MRSA infection 3- x-rays of the right heel with no evidence of any bony changes 4-patient has been evaluated by Dr. Carpenter and did have surgical debridement completed on 06/07/2024 5-patient remains to be afebrile white count normal, he will continue daptomycin and cefepime on the basis of culture done on 05/29/2024 while inpatient and monitor clinical course closely Dictation was produced using [employer] dictation software. please excuse any grammatical, word or spelling errors. Time with Patient: Less than 30
[2024-06-09] MEDS: SODIUM ZIRCONIUM CYCLOSILICATE 10 GM PACKET PO SCH (14:40)
--- NOTE | 2024-06-09 16:29 | P.PN ---
Subjective Progress Note Date: 06/09/24 The patient was seen and evaluated this morning. He is feeling better in terms of shortness of breath but he still hypoxic requiring 4 L of oxygen. No pain in the chest and no dizziness or lightness and no feeling of heart racing or fluttering. The creatinine remains stable. 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 Carpenter. The physical examination is remarkable for regular rhythm with diminished breathing sounds bilaterally and mild bilateral lower EXTR edema June 09, 2024 The patient was seen and evaluated this morning. Unfortunately the kidney function is worse. He is still in failure now requiring BiPAP. The chest x-ray from yesterday showed finding consistent with failure. He continues to be on Lasix IV. Nephrology team is on the case. The physical examination is remarkable for regular rhythm wit diminished breathing sounds bilaterally and mild bilateral expiratory wheezing and mild bilateral lower extremities edema. Beside that he is hyperkalemic that is under treatment at this point. Assessment: Difficulty breathing Acute on chronic diastolic heart failure History of coronary artery disease with PCI of the LAD and second diagonal with known severe disease involving the OM1 Diabetes Hypertension Dyslipidemia Chronic kidney disease with acute kidney injury Dilated ascending aorta History of colectomy Plan: Continue patient's home cardiac medications Continue patient on IV Lasix 80 mg every 12 hours Monitor GABRIEL, daily weights, electrolytes and renal function No need to repeat echocardiogram Follow-up with the patient Objective - Vital Signs Vital signs: Vital Signs Temp 96.5 F L 06/09/24 14:58 Pulse 60 06/09/24 14:58 Resp 16 06/09/24 14:58 BP 128/64 06/09/24 14:58 Pulse Ox 94 L 06/09/24 14:58 FiO2 40 06/09/24 13:12 Intake & Output 06/08/24 06/09/24 06/09/24 18:59 06:59 18:59 Intake Total 1860 Balance 1860 Weight 109 kg Intake: IV 190 Sodium Chloride 0.9% 1000 190 mL @ 10 mLs/hr Intake, IV Titration 50 Amount DAPTOmycin 350 mg In 50 Sodium Chloride 0.9% 50 ml @ 100 mls/hr IVPB Q48H [facility] Rx#:[id number] Oral 1620 Other: Voiding Method Urinal External Catheter Diaper # Voids 1 - Labs CBC & Chem 7: 06/09/24 03:47 06/09/24 03:47 Labs: Abnormal Lab Results - Last 24 Hours (Table) 06/08/24 06/08/24 06/08/24 Range/Units 03:08 17:23 21:14 WBC (4.50-10.00) X 10*3/uL RBC (4.40-5.60) X 10*6/uL Hgb (13.0-17.0) g/dL Hct (39.6-50.0) % MCHC (32.0-37.0) g/dL RDW (11.5-14.5) % Neutrophils # (1.80-7.70) X 10*3/uL Lymphocytes # (0.90-5.00) X 10*3/uL Eosinophils # (0.04-0.35) X 10*3/uL NRBC/100 WBC Diff (0.00-0.01) X 10*3/uL Potassium (3.5-5.5) mmol/L Carbon Dioxide (21.6-31.8) mmol/L Anion Gap (4.00-12.00) mmol/L BUN (9.0-27.0) mg/dL Creatinine (0.6-1.5) mg/dL Est GFR (CKD-EPI) (>=60) BUN/Creatinine Ratio (12.00-20.00) Ratio Glucose (70-110) mg/dL POC Glucose (mg/dL) 399 H 446 H (70-110) mg/dL Ferritin 496.0 H (22.0-322.0) ng/mL Albumin (3.8-4.9) g/dL Globulin (1.6-3.3) g/dL Albumin/Globulin Ratio (1.60-3.17) Ratio 06/09/24 06/09/24 06/09/24 Range/Units 03:47 03:47 06:23 WBC 10.17 H (4.50-10.00) X 10*3/uL RBC 2.62 L (4.40-5.60) X 10*6/uL Hgb 8.0 L (13.0-17.0) g/dL Hct 25.4 L (39.6-50.0) % MCHC 31.5 L (32.0-37.0) g/dL RDW 17.5 H (11.5-14.5) % Neutrophils # 9.18 H (1.80-7.70) X 10*3/uL Lymphocytes # 0.17 L (0.90-5.00) X 10*3/uL Eosinophils # 0 L (0.04-0.35) X 10*3/uL NRBC/100 WBC Diff 0.12 H (0.00-0.01) X 10*3/uL Potassium 5.8 H (3.5-5.5) mmol/L Carbon Dioxide 21.4 L (21.6-31.8) mmol/L Anion Gap 16.60 H (4.00-12.00) mmol/L BUN 93.6 H (9.0-27.0) mg/dL Creatinine 3.4 H (0.6-1.5) mg/dL Est GFR (CKD-EPI) 18 L (>=60) BUN/Creatinine Ratio 27.53 H (12.00-20.00) Ratio Glucose 234 H (70-110) mg/dL POC Glucose (mg/dL) 212 H (70-110) mg/dL Ferritin (22.0-322.0) ng/mL Albumin 3.7 L (3.8-4.9) g/dL Globulin 3.7 H (1.6-3.3) g/dL Albumin/Globulin Ratio 1.00 L (1.60-3.17) Ratio 06/09/24 Range/Units 10:42 WBC (4.50-10.00) X 10*3/uL RBC (4.40-5.60) X 10*6/uL Hgb (13.0-17.0) g/dL Hct (39.6-50.0) % MCHC (32.0-37.0) g/dL RDW (11.5-14.5) % Neutrophils # (1.80-7.70) X 10*3/uL Lymphocytes # (0.90-5.00) X 10*3/uL Eosinophils # (0.04-0.35) X 10*3/uL NRBC/100 WBC Diff (0.00-0.01) X 10*3/uL Potassium (3.5-5.5) mmol/L Carbon Dioxide (21.6-31.8) mmol/L Anion Gap (4.00-12.00) mmol/L BUN (9.0-27.0) mg/dL Creatinine (0.6-1.5) mg/dL Est GFR (CKD-EPI) (>=60) BUN/Creatinine Ratio (12.00-20.00) Ratio Glucose (70-110) mg/dL POC Glucose (mg/dL) 172 H (70-110) mg/dL Ferritin (22.0-322.0) ng/mL Albumin (3.8-4.9) g/dL Globulin (1.6-3.3) g/dL Albumin/Globulin Ratio (1.60-3.17) Ratio Microbiology - Last 24 Hours (Table) 06/06/24 14:05 Blood Culture - Preliminary Blood
[2024-06-09 16:56] LABS: Glucose,Whole Blood 254 mg/dL (70-110)
[2024-06-09 20:10] LABS: Glucose,Whole Blood 239 mg/dL (70-110)
[2024-06-10 06:29] LABS: Glucose,Whole Blood 147 mg/dL (70-110)
--- NOTE | 2024-06-10 08:37 | XR ---
EXAMINATION TYPE: XR chest 1V DATE OF EXAM: 06/10/2024 COMPARISON: 06/08/2024 CLINICAL INDICATION: Male, 73 years old with history of sob; TECHNIQUE: Single frontal view of the chest is obtained. FINDINGS: Heart is mildly moderately enlarged. Patchy and confluent bilateral airspace opacities per sist with slight interval worsening. IMPRESSION: Cardiomegaly with slight worsening in bilateral patchy and confluent airspace disease. [facility], , 06/10/2024 8:34 AM
[2024-06-10 08:44] LABS: Magnesium 2.5 mg/dL (1.5-2.4)
[2024-06-10 08:45] LABS: Basophils # (A) 0.01 X 10*3/uL (0.00-0.10); Basophils % (A) 0.1 %; Eosinophils # (A) 0 X 10*3/uL (0.04-0.35); Eosinophils % (A) 0 %; HCT 25.5 % (39.6-50.0); HGB 7.9 g/dL (13.0-17.0); Lymphocytes # (A) 0.17 X 10*3/uL (0.90-5.00); Lymphocytes % (A) 1.3 %; MCH 29.7 pg (27.0-32.0); MCV 95.9 FL (80.0-97.0); Mean Platelet Volume 10.9 FL (9.5-12.2); Monocytes % (A) 7.8 %; NRBC Per 100 WBC 0.14 X 10*3/uL (0.00-0.01); Neutrophils # (A) 11.65 X 10*3/uL (1.80-7.70); Neutrophils % (A) 90.3 %; Platelet Count 335 X 10*3/uL (140-440); RBC 2.66 X 10*6/uL (4.40-5.60); RDW 17.3 % (11.5-14.5); WBC 12.89 X 10*3/uL (4.50-10.00)
[2024-06-10 08:57] LABS: BUN/Creat Ratio 28.78 Ratio (12.00-20.00); Calcium 9.5 mg/dL (8.7-10.3); Carbon Dioxide 23.1 mmol/L (21.6-31.8); Chloride 95 mmol/L (96-109); Glucose 131 mg/dL (70-110); Potassium 5.2 mmol/L (3.5-5.5); Sodium 135 mmol/L (135-145)
--- NOTE | 2024-06-10 08:58 | PN ---
PROGRESS NOTE DATE OF SERVICE: 06/08/2024 SUBJECTIVE: This 73-year-old gentleman admitted with CHF, acute exacerbation, also had right ear infection. The patient continues to be hypoxic. The patient on BiPAP. Dr. Raines is following the patient closely. The most recent chest x-ray was reviewed, showed some CHF. PAST MEDICAL HISTORY: Reviewed. REVIEW OF SYSTEMS: Fourteen-point review of systems negative except as mentioned earlier. CURRENT MEDICATIONS: Reviewed include DuoNeb. PHYSICAL EXAMINATION: VITAL SIGNS: Pulse is 60, blood pressure is 120/56, respirations 16. HEENT: Conjunctivae normal. NECK: No JVD. CARDIOVASCULAR: S1, S2. RESPIRATIONS: Few scattered rhonchi. ABDOMEN: Soft, nontender. NERVOUS SYSTEM: Nonfocal. LABORATORY DATA: Creatinine is 3.4, which is slightly worsened. Potassium 5.8. ASSESSMENT: 1. Acute on chronic congestive heart failure, acute exacerbation. 2. Acute on chronic renal failure, worsening. 3. Right ear infection. 4. Acute hypoxic respiratory failure, multifactorial. 5. Chronic obstructive pulmonary disease, acute exacerbation. 6. Prostate cancer, status post chemoradiation. 7. Diabetes mellitus type 2. 8. Multiple complex medical issues. RECOMMENDATIONS: Recommend to continue current medications. Continue symptomatic treatment. Otherwise, we will monitor the chest x-ray tomorrow. I would recommend Nephrology and Cardiology consultations. The prognosis remain guarded because of multiple complex medical issues. Further recommendations to follow. See orders for further details. MMODL / IJN: [id number] /
--- NOTE | 2024-06-10 10:06 | P.PN ---
Subjective Patient is seen in follow-up for acute kidney injury on chronic kidney disease. Renal function worsening. Oliguric despite IV Lasix. Continues to feel short of breath. Vital signs are stable. General: No acute distress. HEENT: Head exam is unremarkable. On nasal cannula. LUNGS: Scattered wheezing. HEART: Rate and Rhythm are regular. ABDOMEN: Nontender. Obese. EXTREMITITES: 1+ edema. Chronic changes noted. Objective - Vital Signs Vital signs: Vital Signs Temp 97.3 F L 06/10/24 08:00 Pulse 70 06/10/24 08:00 Resp 18 06/10/24 08:00 BP 121/61 06/10/24 08:00 Pulse Ox 93 L 06/10/24 08:00 FiO2 40 06/10/24 07:44 Intake & Output 06/09/24 06/10/24 06/10/24 18:59 06:59 18:59 Weight 111 kg Other: Voiding Method Indwelling Catheter Indwelling Catheter - Labs CBC & Chem 7: 06/10/24 02:35 06/10/24 02:35 Labs: Abnormal Lab Results - Last 24 Hours (Table) 06/09/24 06/09/24 06/09/24 Range/Units 03:47 03:47 10:42 WBC 10.17 H (4.50-10.00) X 10*3/uL RBC 2.62 L (4.40-5.60) X 10*6/uL Hgb 8.0 L (13.0-17.0) g/dL Hct 25.4 L (39.6-50.0) % MCHC 31.5 L (32.0-37.0) g/dL RDW 17.5 H (11.5-14.5) % Immature Gran # (0.00-0.04) X 10*3/uL Neutrophils # 9.18 H (1.80-7.70) X 10*3/uL Lymphocytes # 0.17 L (0.90-5.00) X 10*3/uL Eosinophils # 0 L (0.04-0.35) X 10*3/uL NRBC/100 WBC Diff 0.12 H (0.00-0.01) X 10*3/uL Potassium 5.8 H (3.5-5.5) mmol/L Chloride (96-109) mmol/L Carbon Dioxide 21.4 L (21.6-31.8) mmol/L Anion Gap 16.60 H (4.00-12.00) mmol/L BUN 93.6 H (9.0-27.0) mg/dL Creatinine 3.4 H (0.6-1.5) mg/dL Est GFR (CKD-EPI) 18 L (>=60) BUN/Creatinine Ratio 27.53 H (12.00-20.00) Ratio Glucose 234 H (70-110) mg/dL POC Glucose (mg/dL) 172 H (70-110) mg/dL Magnesium (1.5-2.4) mg/dL Albumin 3.7 L (3.8-4.9) g/dL Globulin 3.7 H (1.6-3.3) g/dL Albumin/Globulin Ratio 1.00 L (1.60-3.17) Ratio 06/09/24 06/09/24 06/09/24 Range/Units 16:52 17:51 20:08 WBC (4.50-10.00) X 10*3/uL RBC (4.40-5.60) X 10*6/uL Hgb (13.0-17.0) g/dL Hct (39.6-50.0) % MCHC (32.0-37.0) g/dL RDW (11.5-14.5) % Immature Gran # (0.00-0.04) X 10*3/uL Neutrophils # (1.80-7.70) X 10*3/uL Lymphocytes # (0.90-5.00) X 10*3/uL Eosinophils # (0.04-0.35) X 10*3/uL NRBC/100 WBC Diff (0.00-0.01) X 10*3/uL Potassium 5.3 H (3.5-5.5) mmol/L Chloride (96-109) mmol/L Carbon Dioxide (21.6-31.8) mmol/L Anion Gap (4.00-12.00) mmol/L BUN (9.0-27.0) mg/dL Creatinine (0.6-1.5) mg/dL Est GFR (CKD-EPI) (>=60) BUN/Creatinine Ratio (12.00-20.00) Ratio Glucose (70-110) mg/dL POC Glucose (mg/dL) 254 H 239 H (70-110) mg/dL Magnesium (1.5-2.4) mg/dL Albumin (3.8-4.9) g/dL Globulin (1.6-3.3) g/dL Albumin/Globulin Ratio (1.60-3.17) Ratio 06/10/24 06/10/24 06/10/24 Range/Units 02:35 02:35 06:27 WBC 12.89 H (4.50-10.00) X 10*3/uL RBC 2.66 L (4.40-5.60) X 10*6/uL Hgb 7.9 L (13.0-17.0) g/dL Hct 25.5 L (39.6-50.0) % MCHC 31.0 L (32.0-37.0) g/dL RDW 17.3 H (11.5-14.5) % Immature Gran # 0.06 H (0.00-0.04) X 10*3/uL Neutrophils # 11.65 H (1.80-7.70) X 10*3/uL Lymphocytes # 0.17 L (0.90-5.00) X 10*3/uL Eosinophils # 0 L (0.04-0.35) X 10*3/uL NRBC/100 WBC Diff 0.14 H (0.00-0.01) X 10*3/uL Potassium (3.5-5.5) mmol/L Chloride 95 L (96-109) mmol/L Carbon Dioxide (21.6-31.8) mmol/L Anion Gap 16.90 H (4.00-12.00) mmol/L BUN 118.0 H (9.0-27.0) mg/dL Creatinine 4.1 H (0.6-1.5) mg/dL Est GFR (CKD-EPI) 15 L (>=60) BUN/Creatinine Ratio 28.78 H (12.00-20.00) Ratio Glucose 131 H (70-110) mg/dL POC Glucose (mg/dL) 147 H (70-110) mg/dL Magnesium 2.5 H (1.5-2.4) mg/dL Albumin (3.8-4.9) g/dL Globulin (1.6-3.3) g/dL Albumin/Globulin Ratio (1.60-3.17) Ratio Microbiology - Last 24 Hours (Table) 06/06/24 14:05 Blood Culture - Preliminary Blood Assessment and Plan Plan: Assessment: 1. Acute kidney injury secondary to ATN secondary to cardiorenal syndrome. UA benign. No hydronephrosis noted on imaging. Creatinine 4.1 today. Oliguric. 2. Chronic kidney disease stage IV with baseline creatinine near 2. 3. Volume overload. 4. Coronary disease with cardiac stents. 5. Hypertension with chronic kidney disease. Stable. 6. Metabolic acidosis secondary to chronic kidney disease maintained on oral bicarb. 7. Diabetes mellitus. 8. Right foot ulcer status post debridement. On antibiotics. 9. 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 10. Anemia of chronic kidney disease. Iron deficiency noted. Plan: Maintain IV Lasix. Maintain metolazone. Hold Farxiga due to active infection. Avoid nephrotoxins. Continue to monitor renal function and urine output. Maintain IV iron. With worsening renal function and oliguria, volume overload, initiate renal replacement therapy. Consult vascular surgery for temporary dialysis catheter placement. Plan for first treatment of hemodialysis today and secondary pain tomorrow. Patient and family in agreement with plan.
[2024-06-10 11:25] LABS: Glucose,Whole Blood 188 mg/dL (70-110)
--- NOTE | 2024-06-10 11:58 | P.PN ---
Subjective HISTORY OF PRESENT ILLNESS: This is 73-year-old male patient of Dr. Bales with past medical history of coronary artery disease status post PCI of the LAD and second diagonal branch, known severe disease involving the OM1, heart failure with preserved EF, diabetes, hypertension, dyslipidemia, chronic kidney disease, dilated ascending aorta, history of colectomy and overweight. We have been asked to evaluate the patient for CHF. Patient was recently hospitalized 05/28 - 05/31 and was treated for CHF and acute kidney injury. Patient states that when he went home he did not feel any better related to shortness of breath and when he had come in. He states he continues to have shortness of breath which is worsening and also has a little lightheadedness and dizziness. He complains of chest pain across the mid chest and also some left lower abdominal pain. He denies cough but he states in the morning he has sputum production. No significant lower extremity edema. He does have a chronic wound to the right foot with the boot in place. Blood pressure 121/61, heart rate 69, pulse ox 96% on 2 and half liters nasal cannula. Patient has been started on IV Lasix 80 mg every 12 hours. -EKG: Atrial fibrillation [address] changes -Chest x-ray: Correlate for volume overload -Laboratory studies: WBC 10.2, hemoglobin 10.4, platelet count 374. Sodium 135, potassium 4.6, BUN 66 and creatinine 2.71. Troponin negative x 1. proBNP 2550. -Home cardiac medications: Amlodipine 10 mg daily, aspirin 81 mg daily, atorvastatin 40 mg daily, Plavix 75 mg daily, Farxiga 10 mg daily, hydralazine 25 mg 3 times daily, Imdur 60 mg daily, Toprol XL 25 mg daily, Ranexa 500 mg every 12 hours, Demadex 40 mg daily. -Echocardiogram from 05/28/2024 revealed technical difficult study minimal mitral and tricuspid regurgitation. No pericardial effusion. -Cardiac catheterization history: April 26, 2024 revealing patent stent in the mid LAD. Late stent thrombosis of the second diagonal branch of the LAD, severe disease involving OM1 appeared unchanged compared to before, attempted balloon angioplasty was performed of second diagonal branch with suboptimal results June 09, 2024 The patient was seen and evaluated this morning. Unfortunately the kidney function is worse. He is still in failure now requiring BiPAP. The chest x-ray from yesterday showed finding consistent with failure. He continues to be on Lasix IV. Nephrology team is on the case. The physical examination is remarkable for regular rhythm wit diminished breathing sounds bilaterally and mild bilateral expiratory wheezing and mild bilateral lower extremities edema. Beside that he is hyperkalemic that is under treatment at this point. 06/10/2024 Patient examined this morning at the bedside. Patient currently reports shortness of breath. He remains on IV Lasix. He denies any chest pain or pressure. Creatinine is worsening today at 4.1. Patient states that he spoke with nephrology this morning and plan is to begin hemodialysis today. PHYSICAL EXAM: VITAL SIGNS: Reviewed. GENERAL: Well-developed in no acute distress. NECK: Supple. No JVD or thyromegaly LUNGS: Respirations even and unlabored. Lungs with expiratory wheezing noted HEART: Regular rate and rhythm. S1 and S2 heard. EXTREMITIES: Normal range of motion. No clubbing or cyanosis. Peripheral pulses intact. 1+ bilateral lower extremity edema ASSESSMENT: Shortness of breath Acute on chronic diastolic heart failure Acute on chronic kidney disease History of coronary artery disease with PCI of the LAD and second diagonal with known severe disease involving the OM1 Diabetes Hypertension Dyslipidemia Dilated ascending aorta History of colectomy PLAN: Continue IV Lasix per nephrology. Plan is to begin hemodialysis today per patient. Continue additional cardiac medications Daily weights, accurate intake and output, and monitoring of kidney function Further recommendations pending patient course Nurse practitioner note has been reviewed by physician. Signing provider agrees with the documented findings, assessment, and plan of care documented by REQUISITION APPROVER as a scribe. Objective - Vital Signs Vital signs: Vital Signs Temp 97.3 F L 06/10/24 08:00 Pulse 82 06/10/24 11:17 Resp 18 06/10/24 08:00 BP 121/61 06/10/24 08:00 Pulse Ox 93 L 06/10/24 08:00 FiO2 60 06/10/24 11:07 Intake & Output 06/09/24 06/10/24 06/10/24 18:59 06:59 18:59 Weight 111 kg Other: Voiding Method Indwelling Catheter Indwelling Catheter - Labs CBC & Chem 7: 06/10/24 02:35 06/10/24 02:35 Labs: Abnormal Lab Results - Last 24 Hours (Table) 06/09/24 06/09/24 06/09/24 Range/Units 16:52 17:51 20:08 WBC (4.50-10.00) X 10*3/uL RBC (4.40-5.60) X 10*6/uL Hgb (13.0-17.0) g/dL Hct (39.6-50.0) % MCHC (32.0-37.0) g/dL RDW (11.5-14.5) % Immature Gran # (0.00-0.04) X 10*3/uL Neutrophils # (1.80-7.70) X 10*3/uL Lymphocytes # (0.90-5.00) X 10*3/uL Eosinophils # (0.04-0.35) X 10*3/uL NRBC/100 WBC Diff (0.00-0.01) X 10*3/uL Potassium 5.3 H (3.5-5.1) mmol/L Chloride (96-109) mmol/L Anion Gap (4.00-12.00) mmol/L BUN (9.0-27.0) mg/dL Creatinine (0.6-1.5) mg/dL Est GFR (CKD-EPI) (>=60) BUN/Creatinine Ratio (12.00-20.00) Ratio Glucose (70-110) mg/dL POC Glucose (mg/dL) 254 H 239 H (70-110) mg/dL Magnesium (1.5-2.4) mg/dL 06/10/24 06/10/24 06/10/24 Range/Units 02:35 02:35 06:27 WBC 12.89 H (4.50-10.00) X 10*3/uL RBC 2.66 L (4.40-5.60) X 10*6/uL Hgb 7.9 L (13.0-17.0) g/dL Hct 25.5 L (39.6-50.0) % MCHC 31.0 L (32.0-37.0) g/dL RDW 17.3 H (11.5-14.5) % Immature Gran # 0.06 H (0.00-0.04) X 10*3/uL Neutrophils # 11.65 H (1.80-7.70) X 10*3/uL Lymphocytes # 0.17 L (0.90-5.00) X 10*3/uL Eosinophils # 0 L (0.04-0.35) X 10*3/uL NRBC/100 WBC Diff 0.14 H (0.00-0.01) X 10*3/uL Potassium (3.5-5.1) mmol/L Chloride 95 L (96-109) mmol/L Anion Gap 16.90 H (4.00-12.00) mmol/L BUN 118.0 H (9.0-27.0) mg/dL Creatinine 4.1 H (0.6-1.5) mg/dL Est GFR (CKD-EPI) 15 L (>=60) BUN/Creatinine Ratio 28.78 H (12.00-20.00) Ratio Glucose 131 H (70-110) mg/dL POC Glucose (mg/dL) 147 H (70-110) mg/dL Magnesium 2.5 H (1.5-2.4) mg/dL 06/10/24 Range/Units 11:22 WBC (4.50-10.00) X 10*3/uL RBC (4.40-5.60) X 10*6/uL Hgb (13.0-17.0) g/dL Hct (39.6-50.0) % MCHC (32.0-37.0) g/dL RDW (11.5-14.5) % Immature Gran # (0.00-0.04) X 10*3/uL Neutrophils # (1.80-7.70) X 10*3/uL Lymphocytes # (0.90-5.00) X 10*3/uL Eosinophils # (0.04-0.35) X 10*3/uL NRBC/100 WBC Diff (0.00-0.01) X 10*3/uL Potassium (3.5-5.1) mmol/L Chloride (96-109) mmol/L Anion Gap (4.00-12.00) mmol/L BUN (9.0-27.0) mg/dL Creatinine (0.6-1.5) mg/dL Est GFR (CKD-EPI) (>=60) BUN/Creatinine Ratio (12.00-20.00) Ratio Glucose (70-110) mg/dL POC Glucose (mg/dL) 188 H (70-110) mg/dL Magnesium (1.5-2.4) mg/dL Microbiology - Last 24 Hours (Table) 06/06/24 14:05 Blood Culture - Preliminary Blood
--- NOTE | 2024-06-10 12:49 | P.GSCN ---
History of Present Illness History of present illness: 73-year-old gentleman known to me from the wound on the foot patient has history of diabetes hypertension coronary artery disease history of acute kidney injury oliguria consulted for placement of a dialysis catheter Patient was seen in his room patient has a BiPAP Chest crackles bilateral. Second sound present abdomen patient has a colostomy femorals are 1+ bilateral Plan is placement of a dialysis catheter risk and complication discussed Past Medical History Past Medical History: Cancer, Chest Pain / Angina, Diabetes Mellitus, Eye Disorder, GERD/Reflux, Hyperlipidemia, Hypertension, Osteoarthritis (OA), Prostate Disorder, Renal Disease Additional Past Medical History / Comment(s): HX OF ULCERATIVE COLITIS, ile ostomy PARASTOMAL HERNIA, PROSTATE CA WITH RADIATION AND CHEMO IN 2020, LOW KIDNEY FUNCTION,Covid Dec 2022, Influenza A Jun 2023, eye condition, unsure of name. History of Any Multi-Drug Resistant Organisms: MRSA Year Discovered:: 05/24/24 MDRO Source:: rt heel, scalp Past Surgical History: Appendectomy, Bowel Resection, Heart Catheterization, Heart Catheterization With Stent Additional Past Surgical History / Comment(s): COLECTOMY, RECTUM REMOVED, ELLIOTT CATARACTS removed, ILEOSTOMY, HERNIA SURGERY. Past Anesthesia/Blood Transfusion Reactions: No Reported Reaction Additional Past Anesthesia/Blood Transfusion Reaction / Comm: no problems with prior blood transfusions. Date of Last Stent Placement:: 08/01/2023 Past Psychological History: No Psychological Hx Reported Smoking Status: Never smoker Past Alcohol Use History: None Reported Past Drug Use History: None Reported - Past Family History Mother Family Medical History: Cancer Additional Family Medical History / Comment(s): LUNG CANCER. Father Family Medical History: Cancer Additional Family Medical History / Comment(s): MELANOMA/BRAIN CANCER. Medications and Allergies Home Medications Medication Instructions Recorded Confirmed Type Aspirin EC [Ecotrin Low Dose] 81 mg PO DAILY 11/08/18 06/04/24 History Ergocalciferol (Vitamin D2) 1,250 mcg PO Q14D 06/25/20 06/04/24 History [Drisdol (50,000 Iu)] allopurinoL [Zyloprim] 200 mg PO DAILY 10/21/21 06/04/24 History Dapagliflozin Propanediol [Farxiga] 10 mg PO DAILY 11/05/21 06/04/24 History Gabapentin [Neurontin] 100 mg PO HS 06/30/23 06/04/24 History Atorvastatin [Lipitor] 40 mg PO DAILY 07/25/23 06/04/24 History Insulin Aspart [NovoLOG Flexpen] 30 - 40 units SQ AC-TID 08/16/23 06/04/24 History Escitalopram [Lexapro] 10 mg PO DAILY 02/10/24 06/04/24 History Pantoprazole [Protonix] 40 mg PO DAILY 02/10/24 06/04/24 History calcitrioL 0.25 mcg PO MO 02/10/24 06/04/24 History Metoprolol Succinate (ER) [Toprol 25 mg PO DAILY #30 tab 02/19/24 06/04/24 Rx XL] Butalb/APAP/Caff 50-325-40Mg 1 tab PO Q4H PRN 04/25/24 06/04/24 History [Fioricet 50-325-40] Ferrous Sulfate [Iron (65 MG 325 mg PO DAILY 04/25/24 06/04/24 History Elemental)] Insulin Glargine,Hum.rec.anlog 50 units SQ HS 04/25/24 06/04/24 History [Touramesh Solostnatalie] Triamcinolone 0.5% Cream [Kenalog 1 applic TOPICAL BID PRN 04/25/24 06/04/24 History 0.5% Cream] Acetaminophen Tab [Tylenol] 650 mg PO Q6HR PRN tab 04/28/24 06/04/24 Rx Clopidogrel [Plavix] 75 mg PO DAILY 30 Days #30 tablet 04/28/24 06/04/24 Rx Isosorbide Mononitrate ER [Imdur] 60 mg PO DAILY #30 tab 04/28/24 06/04/24 Rx Ranolazine [Ranexa] 500 mg PO Q12HR #60 tab 04/28/24 06/04/24 Rx amLODIPine [Norvasc] 10 mg PO DAILY #30 tab 04/28/24 06/04/24 Rx hydrALAZINE HCL [Apresoline] 25 mg PO TID 05/28/24 06/04/24 History Collagenase [Santyl Ointment] 1 applic TOPICAL DAILY each 05/31/24 06/04/24 Rx Sodium Bicarbonate Tab 650 mg PO BID #60 tab 05/31/24 06/04/24 Rx Torsemide [Demadex] 40 mg PO DAILY #0 05/31/24 06/04/24 Rx Albuterol Sulfate [Albuterol 1 puff INHALATION RT-Q4H 06/04/24 06/04/24 History Sulfate Hfa] Nuzyra 150mg See Taper PO HS 06/04/24 06/04/24 History Allergies Allergy/AdvReac Type Severity Reaction Status Date / Time ibuprofen [From Motrin] Allergy Anaphylaxis Verified 06/04/24 16:39 Surgical - Exam Vital Signs Temp Pulse Resp BP Pulse Ox 97.8 F 71 22 132/75 84 L 06/04/24 14:38 06/04/24 14:38 06/04/24 14:38 06/04/24 14:38 06/04/24 14:38 Results - Labs 06/10/24 02:35 06/10/24 02:35 Abnormal Lab Results - Last 24 Hours (Table) 06/09/24 06/09/24 06/09/24 Range/Units 16:52 17:51 20:08 WBC (4.50-10.00) X 10*3/uL RBC (4.40-5.60) X 10*6/uL Hgb (13.0-17.0) g/dL Hct (39.6-50.0) % MCHC (32.0-37.0) g/dL RDW (11.5-14.5) % Immature Gran # (0.00-0.04) X 10*3/uL Neutrophils # (1.80-7.70) X 10*3/uL Lymphocytes # (0.90-5.00) X 10*3/uL Eosinophils # (0.04-0.35) X 10*3/uL NRBC/100 WBC Diff (0.00-0.01) X 10*3/uL Potassium 5.3 H (3.5-5.1) mmol/L Chloride (96-109) mmol/L Anion Gap (4.00-12.00) mmol/L BUN (9.0-27.0) mg/dL Creatinine (0.6-1.5) mg/dL Est GFR (CKD-EPI) (>=60) BUN/Creatinine Ratio (12.00-20.00) Ratio Glucose (70-110) mg/dL POC Glucose (mg/dL) 254 H 239 H (70-110) mg/dL Magnesium (1.5-2.4) mg/dL 06/10/24 06/10/24 06/10/24 Range/Units 02:35 02:35 06:27 WBC 12.89 H (4.50-10.00) X 10*3/uL RBC 2.66 L (4.40-5.60) X 10*6/uL Hgb 7.9 L (13.0-17.0) g/dL Hct 25.5 L (39.6-50.0) % MCHC 31.0 L (32.0-37.0) g/dL RDW 17.3 H (11.5-14.5) % Immature Gran # 0.06 H (0.00-0.04) X 10*3/uL Neutrophils # 11.65 H (1.80-7.70) X 10*3/uL Lymphocytes # 0.17 L (0.90-5.00) X 10*3/uL Eosinophils # 0 L (0.04-0.35) X 10*3/uL NRBC/100 WBC Diff 0.14 H (0.00-0.01) X 10*3/uL Potassium (3.5-5.1) mmol/L Chloride 95 L (96-109) mmol/L Anion Gap 16.90 H (4.00-12.00) mmol/L BUN 118.0 H (9.0-27.0) mg/dL Creatinine 4.1 H (0.6-1.5) mg/dL Est GFR (CKD-EPI) 15 L (>=60) BUN/Creatinine Ratio 28.78 H (12.00-20.00) Ratio Glucose 131 H (70-110) mg/dL POC Glucose (mg/dL) 147 H (70-110) mg/dL Magnesium 2.5 H (1.5-2.4) mg/dL 06/10/24 Range/Units 11:22 WBC (4.50-10.00) X 10*3/uL RBC (4.40-5.60) X 10*6/uL Hgb (13.0-17.0) g/dL Hct (39.6-50.0) % MCHC (32.0-37.0) g/dL RDW (11.5-14.5) % Immature Gran # (0.00-0.04) X 10*3/uL Neutrophils # (1.80-7.70) X 10*3/uL Lymphocytes # (0.90-5.00) X 10*3/uL Eosinophils # (0.04-0.35) X 10*3/uL NRBC/100 WBC Diff (0.00-0.01) X 10*3/uL Potassium (3.5-5.1) mmol/L Chloride (96-109) mmol/L Anion Gap (4.00-12.00) mmol/L BUN (9.0-27.0) mg/dL Creatinine (0.6-1.5) mg/dL Est GFR (CKD-EPI) (>=60) BUN/Creatinine Ratio (12.00-20.00) Ratio Glucose (70-110) mg/dL POC Glucose (mg/dL) 188 H (70-110) mg/dL Magnesium (1.5-2.4) mg/dL Microbiology - Last 24 Hours (Table) 06/06/24 14:05 Blood Culture - Preliminary Blood Diabetes panel 06/09/24 06/10/24 Range/Units 17:51 02:35 Sodium 135 (135-145) mmol/L Potassium 5.3 H 5.2 (3.5-5.1) mmol/L Chloride 95 L (96-109) mmol/L Carbon Dioxide 23.1 (21.6-31.8) mmol/L BUN 118.0 H (9.0-27.0) mg/dL Creatinine 4.1 H (0.6-1.5) mg/dL Glucose 131 H (70-110) mg/dL Calcium 9.5 (8.7-10.3) mg/dL Calcium panel 06/10/24 Range/Units 02:35 Calcium 9.5 (8.7-10.3) mg/dL Pituitary panel 06/09/24 06/10/24 Range/Units 17:51 02:35 Sodium 135 (135-145) mmol/L Potassium 5.3 H 5.2 (3.5-5.1) mmol/L Chloride 95 L (96-109) mmol/L Carbon Dioxide 23.1 (21.6-31.8) mmol/L BUN 118.0 H (9.0-27.0) mg/dL Creatinine 4.1 H (0.6-1.5) mg/dL Glucose 131 H (70-110) mg/dL Calcium 9.5 (8.7-10.3) mg/dL Adrenal panel 06/09/24 06/10/24 Range/Units 17:51 02:35 Sodium 135 (135-145) mmol/L Potassium 5.3 H 5.2 (3.5-5.1) mmol/L Chloride 95 L (96-109) mmol/L Carbon Dioxide 23.1 (21.6-31.8) mmol/L BUN 118.0 H (9.0-27.0) mg/dL Creatinine 4.1 H (0.6-1.5) mg/dL Glucose 131 H (70-110) mg/dL Calcium 9.5 (8.7-10.3) mg/dL
--- NOTE | 2024-06-10 14:38 | P.PN ---
Subjective Progress Note Date: 06/10/24 Patient is a 73-year-old male with past medical history significant for hypertension, hyperlipidemia, coronary artery disease with previous PCI/stenting, heart failure, chronic kidney disease, diabetes mellitus, chronic right heel wound, ulcerative colitis with previous colectomy and ileostomy. Of note, patient had a recent hospitalization late May and was just discharged 05/31/2024 for CHF exacerbation. Echocardiogram done during this hospitalization estimating a preserved left ventricular ejection fraction of 55 to 60%. Limited study, but no acute valvular abnormalities reported. Presented the emergency department on 06/04/2024 with a chief complaint of shortness of breath, mostly on exertion. Chest x-ray showing cardiomegaly, mild pulmonary vascular congestion, and a small pleural effusion on the left. NT proBNP elevated 2550. Currently receiving Lasix 80 mg twice daily. CBC: WBC count 10.2, hemoglobin 10.4, hematocrit 32.5, platelets 374. CMP: Sodium 135, potassium 4.6, chloride 101, serum bicarb 18, BUN 66, creatinine 2.71, glucose 139. Troponin is less than 0.012. Patient currently being evaluated on the general medical floor. Appears weak and deconditioned. He is resting in bed on 1 L/min nasal cannula. No respiratory distress noted. Complaining of a generalized headache, which he states is chronic. States that he has been short of breath on exertion for several months to almost 1 year. Particularly on exertion such as climbing stairs or walking to the bathroom. Denies history of COPD or asthma. Never tobacco smoker. Worked in an [employer] shop before he retired. Denies cough. Denies infectious-like symptoms. Current vital signs: Temperature 98 F, heart rate 78 bpm, blood pressure 145/54 mmHg, nontachypneic, SpO2 recorded at 91% on 1 L/min nasal cannula. The patient is seen today June 07, 2024 in follow-up on the regular medical floor. He is awake and alert in no acute distress. Sitting up at the bedside. Maintaining O2 saturations in the 90s on 3 L/min per nasal cannula. White count 9.8. Hemoglobin 8.9. Platelets 366. Sodium 140. Potassium 4.7. Bicarb 22. BUN 60. Creatinine 2.4. Glucose 97. He remains on DuoNeb and elations, Pulmicort inhalations. Lasix 80 mg IV every 12 hours. He is currently -1.1 L balance. Antibiotics in the form of cefepime and daptomycin for his diabetic ulcer of the right foot. X-ray revealed no osseous erosion or acute fracture. The patient is seen today June 08, 2024 in follow-up on the regular medical floor. He did have issues with worsening shortness of breath. He is currently on BiPAP 12/6 and 40% FiO2. White count 6.3. Hemoglobin 8.5. Platelets 357. Sodium 136. Potassium 5.8. Bicarb 21. BUN 64. Creatinine 2.4. Glucose 178. Chest x-ray continues to show evidence of congestive heart failure. He is currently on Lasix 80 mg IV every 12 hours. Continued on bronchodilators and steroids. Remains on antibiotics in the form of cefepime and daptomycin. The patient is seen today June 09, 2024 in follow-up on the regular medical floor. He is currently resting comfortably in bed. Awake and alert in no acute distress. Breathing easier today compared to yesterday. He is currently on BiPAP 12/6 and 40% FiO2. White count 10.1. Hemoglobin 8.0. Platelets 339. Sodium 136. Potassium 5.8. Bicarb 21. BUN 94. Creatinine 3.4. Glucose 234. He remains on DuoNeb and elations, Pulmicort inhalations, Solu-Medrol. Remains on IV diuretics. Remains on cefepime and daptomycin. Receiving Lokelma. The patient is seen today June 10, 2024 in follow-up on the regular medical floor. He is currently sitting up at the bedside. Awake and alert in no acute distress. He is requiring BiPAP support at 12/6 and 60% FiO2. Alternating with oxygen at 4 L/min per nasal cannula. He is continued on DuoNeb inhalations, Pulmicort inhalations, Solu-Medrol. He remains on antibiotics in the form of cefepime and daptomycin. Receiving iron supplement. Continued on IV diuretics. Continued on sodium bicarb tablets. White count 12.8. Hemoglobin 7.9. Platelets 335. Sodium 135. Potassium 5.2. Bicarb 23. BUN 118. Creatinine 4.1. Glucose 131. Plan is for placement of a hemodialysis catheter today and to receive hemodialysis today and tomorrow per nephrology Objective - Vital Signs Vital signs: Vital Signs Temp 97.3 F L 06/10/24 08:00 Pulse 82 06/10/24 11:17 Resp 18 06/10/24 08:00 BP 121/61 06/10/24 08:00 Pulse Ox 93 L 06/10/24 08:00 FiO2 60 06/10/24 11:07 Intake & Output 06/09/24 06/10/24 06/10/24 18:59 06:59 18:59 Weight 111 kg Other: Voiding Method Indwelling Catheter Indwelling Catheter Indwelling Catheter - Exam GENERAL EXAM: Alert, 73-year-old obese male, in no distress. On BiPAP 12/6 and 4 0% FiO2. HEAD: Normocephalic and atraumatic EYES: Normal reaction of pupils, equal size. NOSE: Clear with pink turbinates. THROAT: No erythema or exudates. NECK: No masses, no JVD. CHEST: No chest wall deformity. LUNGS: Equal air entry with diminished lung sounds throughout. Crackles in the bilateral bases. CVS: S1 and S2 normal with no audible murmur, regular rhythm. No extra heart sounds ABDOMEN: No hepatosplenomegaly, active bowel sounds, no guarding or rigidity. Functional ileostomy SPINE: No scoliosis or deformity SKIN: Generalized erythemic plaques involving upper extremities, chest, back CENTRAL NERVOUS SYSTEM: No focal deficits, tone is normal in all 4 extremities. EXTREMITIES: There is no peripheral edema, clubbing, or cyanosis. Peripheral pulses are intact. Right foot is wrapped with Lloyd bandage. - Labs CBC & Chem 7: 06/10/24 02:35 06/10/24 02:35 Labs: Abnormal Lab Results - Last 24 Hours (Table) 06/09/24 06/09/24 06/09/24 Range/Units 16:52 17:51 20:08 WBC (4.50-10.00) X 10*3/uL RBC (4.40-5.60) X 10*6/uL Hgb (13.0-17.0) g/dL Hct (39.6-50.0) % MCHC (32.0-37.0) g/dL RDW (11.5-14.5) % Immature Gran # (0.00-0.04) X 10*3/uL Neutrophils # (1.80-7.70) X 10*3/uL Lymphocytes # (0.90-5.00) X 10*3/uL Eosinophils # (0.04-0.35) X 10*3/uL NRBC/100 WBC Diff (0.00-0.01) X 10*3/uL Potassium 5.3 H (3.5-5.1) mmol/L Chloride (96-109) mmol/L Anion Gap (4.00-12.00) mmol/L BUN (9.0-27.0) mg/dL Creatinine (0.6-1.5) mg/dL Est GFR (CKD-EPI) (>=60) BUN/Creatinine Ratio (12.00-20.00) Ratio Glucose (70-110) mg/dL POC Glucose (mg/dL) 254 H 239 H (70-110) mg/dL Magnesium (1.5-2.4) mg/dL 06/10/24 06/10/24 06/10/24 Range/Units 02:35 02:35 06:27 WBC 12.89 H (4.50-10.00) X 10*3/uL RBC 2.66 L (4.40-5.60) X 10*6/uL Hgb 7.9 L (13.0-17.0) g/dL Hct 25.5 L (39.6-50.0) % MCHC 31.0 L (32.0-37.0) g/dL RDW 17.3 H (11.5-14.5) % Immature Gran # 0.06 H (0.00-0.04) X 10*3/uL Neutrophils # 11.65 H (1.80-7.70) X 10*3/uL Lymphocytes # 0.17 L (0.90-5.00) X 10*3/uL Eosinophils # 0 L (0.04-0.35) X 10*3/uL NRBC/100 WBC Diff 0.14 H (0.00-0.01) X 10*3/uL Potassium (3.5-5.1) mmol/L Chloride 95 L (96-109) mmol/L Anion Gap 16.90 H (4.00-12.00) mmol/L BUN 118.0 H (9.0-27.0) mg/dL Creatinine 4.1 H (0.6-1.5) mg/dL Est GFR (CKD-EPI) 15 L (>=60) BUN/Creatinine Ratio 28.78 H (12.00-20.00) Ratio Glucose 131 H (70-110) mg/dL POC Glucose (mg/dL) 147 H (70-110) mg/dL Magnesium 2.5 H (1.5-2.4) mg/dL 06/10/24 Range/Units 11:22 WBC (4.50-10.00) X 10*3/uL RBC (4.40-5.60) X 10*6/uL Hgb (13.0-17.0) g/dL Hct (39.6-50.0) % MCHC (32.0-37.0) g/dL RDW (11.5-14.5) % Immature Gran # (0.00-0.04) X 10*3/uL Neutrophils # (1.80-7.70) X 10*3/uL Lymphocytes # (0.90-5.00) X 10*3/uL Eosinophils # (0.04-0.35) X 10*3/uL NRBC/100 WBC Diff (0.00-0.01) X 10*3/uL Potassium (3.5-5.1) mmol/L Chloride (96-109) mmol/L Anion Gap (4.00-12.00) mmol/L BUN (9.0-27.0) mg/dL Creatinine (0.6-1.5) mg/dL Est GFR (CKD-EPI) (>=60) BUN/Creatinine Ratio (12.00-20.00) Ratio Glucose (70-110) mg/dL POC Glucose (mg/dL) 188 H (70-110) mg/dL Magnesium (1.5-2.4) mg/dL Microbiology - Last 24 Hours (Table) 06/06/24 14:05 Blood Culture - Preliminary Blood Assessment and Plan Assessment: Acute exacerbation of diastolic congestive heart failure Acute hypoxemic respiratory failure, secondary to above Acute on chronic shortness of breath Acute on chronic kidney disease now requiring renal replacement therapy to start today June 10, 2024 Hyperkalemia secondary to above, receiving Lokelma Acute on chronic anemia secondary to above, current hemoglobin 7.9 History of CAD with previous PCI Diabetes mellitus with hyperglycemia Hypertension History of hyperlipidemia Chronic cephalgia History of UC with previous colectomy and ileostomy History of prostate cancer status post chemoradiation Chronic right heel wound, status post debridement on 05/28/2024 Obesity, with a BMI of 38.8 kg/m Never tobacco smoker Plan: The patient was seen and evaluated Labs and medications reviewed To receive a dialysis catheter today To receive hemodialysis today and again tomorrow Continue BiPAP 12/6 and 40% as needed Alternate with nasal cannula as tolerated Continue bronchodilators, steroids Continue diuretics We will continue to follow I have personally seen and examined the patient, performed the documentation and the assessment and plan as written. Number of minutes spent on the visit: 20 Dictation was produced using [employer] dictation software. Please excuse any grammatical, word or spelling errors.
[2024-06-10 16:03] LABS: Hepatitis B Surface AB- Quant 3.5 mIU/mL
[2024-06-10] MEDS: LIDOCAINE 1% INJ 10MG/ML (20 ML MDV) SQ ONE (16:12)
[2024-06-10] MEDS: IOPAMIDOL-370 100ML BTL INJ ONE (16:15)
--- NOTE | 2024-06-10 16:43 | P.PCN ---
Description of Procedure: Preop diagnosis acute chronic renal failure Postop the same Procedure ultrasound-guided 30 cm dialysis catheter placed right femoral approach brought to the Speeder Worker right groin was prepped and draped in Prestel manner 1% lidocaine for infiltrated groin area. Ultrasound-guided micropuncture introduced right femoral vein micropuncture guide was passed then 4 Thai dilator 2 out of the guidewire with pulse regular guidewire status were advanced up the guidewire is then replaced 30 cm dialysis catheter secured with 3-0 nylon dressing applied patient tarted the procedure well
--- NOTE | 2024-06-10 16:50 | IR ---
EXAMINATION TYPE: IR cvc insert non tunneled DATE OF EXAM: 06/10/2024 4:45 PM COMPARISON: Pre Operative Images if available both CT/MRI or plain film CLINICAL INDICATION: Male, 73 years old with history of CHF, 1.8min, 2331.97 DAP; TECHNIQUE: IR cvc insert non tunneled, multiple fluoroscopic images provided for procedure. Total fluoroscopy time: 5.48 seconds Total submitted images to PACS: 6 DAP: 2332 uGym2 cGycm2 or equivalent. FINDINGS: IMPRESSION: 1. Report was generated for administrative purposes only. 2. Please see the operative/procedural note for further details. [facility], , 06/10/2024 4:47 PM
[2024-06-10 16:58] LABS: Glucose,Whole Blood 249 mg/dL (70-110)
[2024-06-10 20:31] LABS: Glucose,Whole Blood 221 mg/dL (70-110)
--- NOTE | 2024-06-10 21:25 | P.PN ---
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 On today's evaluation that is 06/10/2024, patient has been afebrile, patient is breathing comfortably however is requiring BiPAP today, patient denies having any significant cough no chest pain, patient denies nausea vomiting or diarrhea and no abdominal pain, denies any worsening pain to the right heel wound. Patient white count is 12.18, creatinine is 4.1 Objective - Vital Signs Vital signs: Vital Signs Temp 97.3 F L 06/10/24 08:00 Pulse 82 06/10/24 11:17 Resp 18 06/10/24 08:00 BP 121/61 06/10/24 08:00 Pulse Ox 93 L 06/10/24 08:00 FiO2 60 06/10/24 11:07 Intake & Output 06/09/24 06/10/24 06/10/24 18:59 06:59 18:59 Weight 111 kg Other: Voiding Method Indwelling Catheter Indwelling Catheter - Exam GENERAL DESCRIPTION: An elderly male lying in bed in no distress RESPIRATORY SYSTEM: Unlabored breathing , decreased breath sounds at bases HEART: S1 S2 regular rate and rhythm , ABDOMEN: Soft , no tenderness EXTREMITIES: Right heel is currently dressed - Labs CBC & Chem 7: 06/10/24 02:35 06/10/24 02:35 Labs: Abnormal Lab Results - Last 24 Hours (Table) 06/09/24 06/09/24 06/09/24 Range/Units 16:52 17:51 20:08 WBC (4.50-10.00) X 10*3/uL RBC (4.40-5.60) X 10*6/uL Hgb (13.0-17.0) g/dL Hct (39.6-50.0) % MCHC (32.0-37.0) g/dL RDW (11.5-14.5) % Immature Gran # (0.00-0.04) X 10*3/uL Neutrophils # (1.80-7.70) X 10*3/uL Lymphocytes # (0.90-5.00) X 10*3/uL Eosinophils # (0.04-0.35) X 10*3/uL NRBC/100 WBC Diff (0.00-0.01) X 10*3/uL Potassium 5.3 H (3.5-5.1) mmol/L Chloride (96-109) mmol/L Anion Gap (4.00-12.00) mmol/L BUN (9.0-27.0) mg/dL Creatinine (0.6-1.5) mg/dL Est GFR (CKD-EPI) (>=60) BUN/Creatinine Ratio (12.00-20.00) Ratio Glucose (70-110) mg/dL POC Glucose (mg/dL) 254 H 239 H (70-110) mg/dL Magnesium (1.5-2.4) mg/dL 06/10/24 06/10/24 06/10/24 Range/Units 02:35 02:35 06:27 WBC 12.89 H (4.50-10.00) X 10*3/uL RBC 2.66 L (4.40-5.60) X 10*6/uL Hgb 7.9 L (13.0-17.0) g/dL Hct 25.5 L (39.6-50.0) % MCHC 31.0 L (32.0-37.0) g/dL RDW 17.3 H (11.5-14.5) % Immature Gran # 0.06 H (0.00-0.04) X 10*3/uL Neutrophils # 11.65 H (1.80-7.70) X 10*3/uL Lymphocytes # 0.17 L (0.90-5.00) X 10*3/uL Eosinophils # 0 L (0.04-0.35) X 10*3/uL NRBC/100 WBC Diff 0.14 H (0.00-0.01) X 10*3/uL Potassium (3.5-5.1) mmol/L Chloride 95 L (96-109) mmol/L Anion Gap 16.90 H (4.00-12.00) mmol/L BUN 118.0 H (9.0-27.0) mg/dL Creatinine 4.1 H (0.6-1.5) mg/dL Est GFR (CKD-EPI) 15 L (>=60) BUN/Creatinine Ratio 28.78 H (12.00-20.00) Ratio Glucose 131 H (70-110) mg/dL POC Glucose (mg/dL) 147 H (70-110) mg/dL Magnesium 2.5 H (1.5-2.4) mg/dL 06/10/24 Range/Units 11:22 WBC (4.50-10.00) X 10*3/uL RBC (4.40-5.60) X 10*6/uL Hgb (13.0-17.0) g/dL Hct (39.6-50.0) % MCHC (32.0-37.0) g/dL RDW (11.5-14.5) % Immature Gran # (0.00-0.04) X 10*3/uL Neutrophils # (1.80-7.70) X 10*3/uL Lymphocytes # (0.90-5.00) X 10*3/uL Eosinophils # (0.04-0.35) X 10*3/uL NRBC/100 WBC Diff (0.00-0.01) X 10*3/uL Potassium (3.5-5.1) mmol/L Chloride (96-109) mmol/L Anion Gap (4.00-12.00) mmol/L BUN (9.0-27.0) mg/dL Creatinine (0.6-1.5) mg/dL Est GFR (CKD-EPI) (>=60) BUN/Creatinine Ratio (12.00-20.00) Ratio Glucose (70-110) mg/dL POC Glucose (mg/dL) 188 H (70-110) mg/dL Magnesium (1.5-2.4) mg/dL Microbiology - Last 24 Hours (Table) 06/06/24 14:05 Blood Culture - Preliminary Blood Assessment and Plan (1) Diabetic infection of right foot Current Visit: Yes Status: Acute Code(s): E11.628 - TYPE 2 DIABETES MELLITUS WITH OTHER SKIN COMPLICATIONS; L08.9 - LOCAL INFECTION OF THE SKIN AND SUBCUTANEOUS TISSUE, UNSP SNOMED Code(s): 665329821 (2) MRSA (methicillin resistant staph aureus) culture positive Current Visit: Yes Status: Acute Code(s): Z22.322 - CARRIER OR SUSPECTED CARRIER OF METHICILLIN RESIS STAPH SNOMED Code(s): 901212999 (3) Diabetic ulcer of right foot Current Visit: No Status: Acute Code(s): E11.621 - TYPE 2 DIABETES MELLITUS WITH FOOT ULCER; L97.519 - NON-PRS CHRONIC ULCER OTH PRT RIGHT FOOT W UNSP SEVERITY SNOMED Code(s): 568689564 (4) Stage III pressure ulcer of right heel Current Visit: No Status: Acute Code(s): L89.613 - PRESSURE ULCER OF RIGHT HEEL, STAGE 3 SNOMED Code(s): 52529071007375 Plan: 1patient with a chronic nonhealing wound to the right heel which he has for couple of months the wound looks deep with a recent culture positive for Proteus and MRSA concerning for wound infection and question for possible deeper infection such as osteomyelitis as wound has been there for couple of months now 2-patient did have elevated creatinine would be high risk of nephrotoxicity from vancomycin which is typically used for MRSA infection 3- x-rays of the right heel with no evidence of any bony changes 4-patient has been evaluated by Dr. Carpenter and did have surgical debridement co mpleted on 06/07/2024 5-patient remains to be afebrile, no distress was doing of his kidney function r equiring initiation of dialysis patient is covered with daptomycin and cefepime on the basis of culture done on 05/29/2024 patient will be continued while inpatient and monitor clinical course closely Dictation was produced using [employer] dictation software. please excuse any grammatical, word or spelling errors. Time with Patient: Less than 30
[2024-06-10 21:36] LABS: Hepatitis B Surface Antigen Nonreactive (Nonreactive)
[2024-06-10 22:35] LABS: Glucose,Whole Blood 192 mg/dL (70-110)
[2024-06-11 06:16] LABS: Glucose,Whole Blood 127 mg/dL (70-110)
--- NOTE | 2024-06-11 10:32 | P.PN ---
Subjective Patient is seen in follow-up for acute kidney injury on chronic kidney disease. Started on hemodialysis June 10, 2024. Tolerated 2 L ultrafiltration yesterday. On BiPAP. Family present at bedside. Vital signs are stable. General: No acute distress. HEENT: Head exam is unremarkable. On BiPAP. LUNGS: Scattered wheezing. HEART: Rate and Rhythm are regular. ABDOMEN: Nontender. Obese. EXTREMITITES: 1+ edema. Chronic changes noted. Objective - Vital Signs Vital signs: Vital Signs Temp 97.7 F 06/11/24 07:47 Pulse 71 06/11/24 09:46 Resp 19 06/11/24 09:46 BP 120/59 06/11/24 07:47 Pulse Ox 92 L 06/11/24 09:46 FiO2 100 06/11/24 09:46 Intake & Output 06/10/24 06/11/24 06/11/24 18:59 06:59 18:59 Intake Total 500 Output Total 4500 Balance -4000 Weight 110.5 kg Intake: Hemodialysis 500 Output: Hemodialysis 2500 Hemodialysis Net Amount 2000 Other: Voiding Method Indwelling Catheter Indwelling Catheter # Voids 0 - Labs CBC & Chem 7: 06/10/24 02:35 06/10/24 02:35 Labs: Abnormal Lab Results - Last 24 Hours (Table) 06/10/24 06/10/24 06/10/24 Range/Units 11:22 16:56 20:29 POC Glucose (mg/dL) 188 H 249 H 221 H (70-110) mg/dL 06/10/24 06/11/24 Range/Units 22:33 06:12 POC Glucose (mg/dL) 192 H 127 H (70-110) mg/dL Assessment and Plan Plan: Assessment: 1. Acute kidney injury secondary to ATN secondary to cardiorenal syndrome. UA benign. No hydronephrosis noted on imaging. Creatinine 4.1 dated June 10, 2024. Oliguric. Started on hemodialysis June 10, 2024. Has right femoral catheter. 2. Chronic kidney disease stage IV with baseline creatinine near 2. 3. Volume overload. 4. Coronary disease with cardiac stents. 5. Hypertension with chronic kidney disease. Stable. 6. Metabolic acidosis secondary to chronic kidney disease maintained on oral bicarb. 7. Diabetes mellitus. 8. Right foot ulcer status post debridement. On antibiotics. 9. 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 10. Anemia of chronic kidney disease. Iron deficiency noted. Plan: Second treatment of hemodialysis today and third treatment tomorrow. Maintain IV Lasix. Maintain metolazone. Hold Farxiga due to active infection and severely impaired renal function. Avoid nephrotoxins. Continue to monitor renal function and urine output. Maintain IV iron. Monitor for renal recovery. Check phosphorus level. Monitor respiratory status closely. May need to be transferred to the ICU. Pulmonology also following.
--- NOTE | 2024-06-11 11:38 | P.PN ---
Subjective Progress Note Date: 06/11/24 HISTORY OF PRESENT ILLNESS: This is 73-year-old male patient of Dr. Bales with past medical history of co ronary artery disease status post PCI of the LAD and second diagonal branch, known severe disease involving the OM1, heart failure with preserved EF, diabetes, hypertension, dyslipidemia, chronic kidney disease, dilated ascending aorta, history of colectomy and overweight. We have been asked to evaluate the patient for CHF. Patient was recently hospitalized 05/28 - 05/31 and was treated for CHF and acute kidney injury. Patient states that when he went home he did not feel any better related to shortness of breath and when he had come in. He states he continues to have shortness of breath which is worsening and also has a little lightheadedness and dizziness. He complains of chest pain across the mid chest and also some left lower abdominal pain. He denies cough but he states in the morning he has sputum production. No significant lower extremity edema. He does have a chronic wound to the right foot with the boot in place. Blood pressure 121/61, heart rate 69, pulse ox 96% on 2 and half liters nasal cannula. Patient has been started on IV Lasix 80 mg every 12 hours. -EKG: Atrial fibrillation [address] changes -Chest x-ray: Correlate for volume overload -Laboratory studies: WBC 10.2, hemoglobin 10.4, platelet count 374. Sodium 135, potassium 4.6, BUN 66 and creatinine 2.71. Troponin negative x 1. proBNP 2550. -Home cardiac medications: Amlodipine 10 mg daily, aspirin 81 mg daily, atorvastatin 40 mg daily, Plavix 75 mg daily, Farxiga 10 mg daily, hydralazine 25 mg 3 times daily, Imdur 60 mg daily, Toprol XL 25 mg daily, Ranexa 500 mg every 12 hours, Demadex 40 mg daily. -Echocardiogram from 05/28/2024 revealed technical difficult study minimal mitral and tricuspid regurgitation. No pericardial effusion. -Cardiac catheterization history: April 26, 2024 revealing patent stent in the mid LAD. Late stent thrombosis of the second diagonal branch of the LAD, severe disease involving OM1 appeared unchanged compared to before, attempted balloon angioplasty was performed of second diagonal branch with suboptimal results June 09, 2024 The patient was seen and evaluated this morning. Unfortunately the kidney function is worse. He is still in failure now requiring BiPAP. The chest x-ray from yesterday showed finding consistent with failure. He continues to be on Lasix IV. Nephrology team is on the case. The physical examination is remarkable for regular rhythm wit diminished breathing sounds bilaterally and mild bilateral expiratory wheezing and mild bilateral lower extremities edema. Beside that he is hyperkalemic that is under treatment at this point. 06/10/2024 Patient examined this morning at the bedside. Patient currently reports shortness of breath. He remains on IV Lasix. He denies any chest pain or pressure. Creatinine is worsening today at 4.1. Patient states that he spoke with nephrology this morning and plan is to begin hemodialysis today. 06/11 Patient seen and examined Patient is preparing to have his second dialysis treatment this morning. He is on 100% BiPAP pulse ox 92%. Blood pressure 129/58, heart rate 70. No repeat blood work today. PHYSICAL EXAM: VITAL SIGNS: Reviewed. GENERAL: Well-developed in no acute distress. NECK: Supple. No JVD or thyromegaly LUNGS: Respirations even and unlabored. Lungs with expiratory wheezing noted HEART: Regular rate and rhythm. S1 and S2 heard. EXTREMITIES: Normal range of motion. No clubbing or cyanosis. Peripheral pulses intact. 1+ bilateral lower extremity edema ASSESSMENT: Shortness of breath Acute on chronic diastolic heart failure Acute kidney injury and chronic kidney disease, patient started HD on 06/10 History of coronary artery disease with PCI of the LAD and second diagonal with known severe disease involving the OM1 Diabetes Hypertension Dyslipidemia Dilated ascending aorta History of colectomy PLAN: Continue IV Lasix per nephrology. Patient is currently on IV Lasix 80 mg every 12 hours Continue other cardiac medications: Amlodipine 10 mg daily, aspirin 81 mg daily, atorvastatin 40 mg daily, Plavix 75 mg daily, hydralazine 25 mg 3 times daily, Imdur 60 mg daily, Toprol XL 25 mg daily, Ranexa 500 mg twice daily Patient has been started on metolazone 5 mg daily per nephrology Patient has been started on Ferrlecit daily infusion Daily weights, accurate intake and output, and monitoring of kidney function Further recommendations pending patient course Nurse practitioner note has been reviewed by physician. Signing provider agrees with the documented findings, assessment, and plan of care documented by [employer] as a scribe. Objective - Vital Signs Vital signs: Vital Signs Temp 97.7 F 06/11/24 07:47 Pulse 71 06/11/24 09:46 Resp 19 06/11/24 09:46 BP 120/59 06/11/24 07:47 Pulse Ox 92 L 06/11/24 09:46 FiO2 100 06/11/24 09:46 Intake & Output 06/10/24 06/11/24 06/11/24 18:59 06:59 18:59 Intake Total 500 Output Total 4500 Balance -4000 Weight 110.5 kg Intake: Hemodialysis 500 Output: Hemodialysis 2500 Hemodialysis Net Amount 2000 Other: Voiding Method Indwelling Catheter Indwelling Catheter # Voids 0 - Labs CBC & Chem 7: 06/10/24 02:35 06/10/24 02:35 Labs: Abnormal Lab Results - Last 24 Hours (Table) 06/10/24 06/10/24 06/10/24 Range/Units 11:22 16:56 20:29 POC Glucose (mg/dL) 188 H 249 H 221 H (70-110) mg/dL 06/10/24 06/11/24 Range/Units 22:33 06:12 POC Glucose (mg/dL) 192 H 127 H (70-110) mg/dL
[2024-06-11 11:50] LABS: Glucose,Whole Blood 81 mg/dL (70-110)
[2024-06-11 11:54] LABS: BUN/Creat Ratio 26.34 Ratio (12.00-20.00); Calcium 8.7 mg/dL (8.7-10.3); Chloride 97 mmol/L (96-109); Glucose 106 mg/dL (70-110); Potassium 4.9 mmol/L (3.5-5.5); Sodium 137 mmol/L (135-145)
--- NOTE | 2024-06-11 13:25 | P.PN ---
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 On today's evaluation that is 06/11/2024, Patient is afebrile this morning patient currently undergoing dialysis patient is on a BiPAP and seem to be more confused as reported by the psychiatric technician patient could not provide a reliable history no family at the bedside no vomiting or diarrhea has been reported. Patient did have a creatinine 4.1 blood culture has been negative Objective - Vital Signs Vital signs: Vital Signs Temp 97.7 F 06/11/24 07:47 Pulse 70 06/11/24 10:53 Resp 20 06/11/24 10:53 BP 129/58 06/11/24 10:53 Pulse Ox 93 L 06/11/24 10:53 FiO2 100 06/11/24 10:53 Intake & Output 06/10/24 06/11/24 06/11/24 18:59 06:59 18:59 Intake Total 500 Output Total 4500 Balance -4000 Weight 110.5 kg Intake: Hemodialysis 500 Output: Hemodialysis 2500 Hemodialysis Net Amount 2000 Other: Voiding Method Indwelling Catheter Indwelling Catheter Indwelling Catheter # Voids 0 - Exam GENERAL DESCRIPTION: An elderly male lying in bed in no distress RESPIRATORY SYSTEM: Unlabored breathing , decreased breath sounds at bases HEART: S1 S2 regular rate and rhythm , ABDOMEN: Soft , no tenderness EXTREMITIES: Right heel is currently dressed - Labs CBC & Chem 7: 06/10/24 02:35 06/11/24 06:55 Labs: Abnormal Lab Results - Last 24 Hours (Table) 06/10/24 06/10/24 06/10/24 Range/Units 16:56 20:29 22:33 Anion Gap (4.00-12.00) mmol/L BUN (9.0-27.0) mg/dL Creatinine (0.6-1.5) mg/dL Est GFR (CKD-EPI) (>=60) BUN/Creatinine Ratio (12.00-20.00) Ratio POC Glucose (mg/dL) 249 H 221 H 192 H (70-110) mg/dL 06/11/24 06/11/24 Range/Units 06:12 06:55 Anion Gap 18.00 H (4.00-12.00) mmol/L BUN 108.0 H (9.0-27.0) mg/dL Creatinine 4.1 H (0.6-1.5) mg/dL Est GFR (CKD-EPI) 15 L (>=60) BUN/Creatinine Ratio 26.34 H (12.00-20.00) Ratio POC Glucose (mg/dL) 127 H (70-110) mg/dL Assessment and Plan (1) Diabetic infection of right foot Current Visit: Yes Status: Acute Code(s): E11.628 - TYPE 2 DIABETES MELLITUS WITH OTHER SKIN COMPLICATIONS; L08.9 - LOCAL INFECTION OF THE SKIN AND SUBCUTANEOUS TISSUE, UNSP SNOMED Code(s): 186513207 (2) MRSA (methicillin resistant staph aureus) culture positive Current Visit: Yes Status: Acute Code(s): Z22.322 - CARRIER OR SUSPECTED CARRIER OF METHICILLIN RESIS STAPH SNOMED Code(s): 742907810 (3) Diabetic ulcer of right foot Current Visit: No Status: Acute Code(s): E11.621 - TYPE 2 DIABETES MELLITUS WITH FOOT ULCER; L97.519 - NON-PRS CHRONIC ULCER OTH PRT RIGHT FOOT W UNSP SEVERITY SNOMED Code(s): 025901607 (4) Stage III pressure ulcer of right heel Current Visit: No Status: Acute Code(s): L89.613 - PRESSURE ULCER OF RIGHT HEEL, STAGE 3 SNOMED Code(s): 14205065792408 Plan: 1patient with a chronic nonhealing wound to the right heel which he has for couple of months the wound looks deep with a recent culture positive for Proteus and MRSA concerning for wound infection and question for possible deeper infection such as osteomyelitis as wound has been there for couple of months now 2-patient did have elevated creatinine would be high risk of nephrotoxicity from vancomycin which is typically used for MRSA infection 3- x-rays of the right heel with no evidence of any bony changes 4-patient has been evaluated by Dr. Carpenter and did have surgical debridement completed on 06/07/2024 5-patient remains to be afebrile, patient noticed to have worsening of confusion could be multifactorial could be related to cefepime which will be discontinued we will continue patient on daptomycin and add Zosyn to cover for the Proteus that was resistant to ceftriaxone but sensitive to cefepime and Zosyn Dictation was produced using [employer] software. please excuse any gramm atical, word or spelling errors.
--- NOTE | 2024-06-11 14:25 | P.PN ---
Subjective Progress Note Date: 06/11/24 Principal diagnosis: Respiratory failure. Patient is a 73-year-old male with past medical history significant for hypertension, hyperlipidemia, coronary artery disease with previous PCI/stenting, heart failure, chronic kidney disease, diabetes mellitus, chronic right heel wound, ulcerative colitis with previous colectomy and ileostomy. Of note, patient had a recent hospitalization late May and was just discharged 05/31/2024 for CHF exacerbation. Echocardiogram done during this hospitalization estimating a preserved left ventricular ejection fraction of 55 to 60%. Limited study, but no acute valvular abnormalities reported. Presented the emergency department on 06/04/2024 with a chief complaint of shortness of breath, mostly on exertion. Chest x-ray showing cardiomegaly, mild pulmonary vascular congestion, and a small pleural effusion on the left. NT proBNP e levated 2550. Currently receiving Lasix 80 mg twice daily. CBC: WBC count 10.2, hemoglobin 10.4, hematocrit 32.5, platelets 374. CMP: Sodium 135, potassium 4.6, chloride 101, serum bicarb 18, BUN 66, creatinine 2.71, glucose 139. Troponin is less than 0.012. Patient currently being evaluated on the general medical floor. Appears weak and deconditioned. He is resting in bed on 1 L/min nasal cannula. No respiratory distress noted. Complaining of a generalized headache, which he states is chronic. States that he has been short of breath on exertion for several months to almost 1 year. Particularly on exertion such as climbing stairs or walking to the bathroom. Denies history of COPD or asthma. Never tobacco smoker. Worked in an [employer] before he retired. Denies cough. Denies infectious-like symptoms. Current vital signs: Temperature 98 F, heart rate 78 bpm, blood pressure 145/54 mmHg, nontachypneic, SpO2 recorded at 91% on 1 L/min nasal cannula. The patient is seen today June 07, 2024 in follow-up on the regular medical floor. He is awake and alert in no acute distress. Sitting up at the bedside. Maintaining O2 saturations in the 90s on 3 L/min per nasal cannula. White count 9.8. Hemoglobin 8.9. Platelets 366. Sodium 140. Potassium 4.7. Bicarb 22. BUN 60. Creatinine 2.4. Glucose 97. He remains on DuoNeb and elations, Pulmicort inhalations. Lasix 80 mg IV every 12 hours. He is currently -1.1 L balance. Antibiotics in the form of cefepime and daptomycin for his diabetic ulcer of the right foot. X-ray revealed no osseous erosion or acute fracture. The patient is seen today June 08, 2024 in follow-up on the regular medical floor. He did have issues with worsening shortness of breath. He is currently on BiPAP 12/6 and 40% FiO2. White count 6.3. Hemoglobin 8.5. Platelets 357. Sodium 136. Potassium 5.8. Bicarb 21. BUN 64. Creatinine 2.4. Glucose 178. Chest x-ray continues to show evidence of congestive heart failure. He is currently on Lasix 80 mg IV every 12 hours. Continued on bronchodilators and steroids. Remains on antibiotics in the form of cefepime and daptomycin. The patient is seen today June 09, 2024 in follow-up on the regular medical floor. He is currently resting comfortably in bed. Awake and alert in no acute distress. Breathing easier today compared to yesterday. He is currently on BiPAP 12/6 and 40% FiO2. White count 10.1. Hemoglobin 8.0. Platelets 339. Sodium 136. Potassium 5.8. Bicarb 21. BUN 94. Creatinine 3.4. Glucose 234. He remains on DuoNeb and elations, Pulmicort inhalations, Solu-Medrol. Remains on IV diuretics. Remains on cefepime and daptomycin. Receiving Lokelma. The patient is seen today June 10, 2024 in follow-up on the regular medical floor. He is currently sitting up at the bedside. Awake and alert in no acute distress. He is requiring BiPAP support at 12/6 and 60% FiO2. Alternating with oxygen at 4 L/min per nasal cannula. He is continued on DuoNeb inhalations, Pulmicort inhalations, Solu-Medrol. He remains on antibiotics in the form of cefepime and daptomycin. Receiving iron supplement. Continued on IV diuretics. Continued on sodium bicarb tablets. White count 12.8. Hemoglobin 7.9. Platelets 335. Sodium 135. Potassium 5.2. Bicarb 23. BUN 118. Creatinine 4.1. Glucose 131. Plan is for placement of a hemodialysis catheter today and to receive hemodialysis today and tomorrow per nephrology Progress note dated 06/11/2024. The patient is seen in room 366. Currently, the patient is on BiPAP, with settings of 12/6, and 100%. The patient is undergoing hemodialysis today. The patient is getting saline at 10 cc an hour. The patient continues on cefepime, and daptomycin. Laboratory data today includes a sodium 137, potassium 4.9, chlorides 97, CO2 22, anion gap 18, BUN 108, and creatinine 4.1. Glucose is 106 . Calcium is 8.7. Chest x-ray from yesterday shows cardiomegaly, and diffuse infiltrates, likely related to underlying fluid overload. Objective - Vital Signs Vital signs: Vital Signs Temp 97.7 F 06/11/24 14:08 Pulse 76 06/11/24 14:08 Resp 22 06/11/24 14:08 BP 126/53 06/11/24 14:08 Pulse Ox 94 L 06/11/24 14:01 FiO2 100 06/11/24 14:01 Intake & Output 06/10/24 06/11/24 06/11/24 18:59 06:59 18:59 Intake Total 500 400 Output Total 4500 4575 Balance -4000 -4175 Weight 110.5 kg Intake: Hemodialysis 500 400 Output: Urine 175 Hemodialysis 2500 2400 Hemodialysis Net Amount 2000 1999 Other: Voiding Method Indwelling Catheter Indwelling Catheter Indwelling Catheter # Voids 0 - Exam No acute distress, currently on BiPAP, with settings of 12/6, and 100%. HEENT examination is grossly unremarkable. Mucous membranes are moist. No oral lesions. Neck supple. Full range of motion. No adenopathy thyromegaly or neck vein distention. Cardiovascular examination reveals regular rhythm rate. S1-S2 normal. No S3 or S4. No discernible murmur noted. Heart sounds are distant. Lungs reveal scattered bilateral rhonchi. Some basilar crackles are noted. No wheezes. Breath sounds are equal bilaterally. Abdomen soft bowel sounds are heard. No masses or tenderness. Extremities are intact. No cyanosis clubbing or edema. Right foot is wrapped. Skin is without rash or lesion. Neurologic examination is brief but nonfocal. - Labs CBC & Chem 7: 06/10/24 02:35 06/11/24 06:55 Labs: Abnormal Lab Results - Last 24 Hours (Table) 06/10/24 06/10/24 06/10/24 Range/Units 16:56 20:29 22:33 Anion Gap (4.00-12.00) mmol/L BUN (9.0-27.0) mg/dL Creatinine (0.6-1.5) mg/dL Est GFR (CKD-EPI) (>=60) BUN/Creatinine Ratio (12.00-20.00) Ratio POC Glucose (mg/dL) 249 H 221 H 192 H (70-110) mg/dL 06/11/24 06/11/24 Range/Units 06:12 06:55 Anion Gap 18.00 H (4.00-12.00) mmol/L BUN 108.0 H (9.0-27.0) mg/dL Creatinine 4.1 H (0.6-1.5) mg/dL Est GFR (CKD-EPI) 15 L (>=60) BUN/Creatinine Ratio 26.34 H (12.00-20.00) Ratio POC Glucose (mg/dL) 127 H (70-110) mg/dL Assessment and Plan Assessment: Acute exacerbation of diastolic congestive heart failure. Acute hypoxemic respiratory failure, secondary to above. Acute on chronic shortness of breath. Acute on chronic kidney disease now requiring renal replacement therapy to start today June 10, 2024. Hyperkalemia secondary to above. Acute on chronic anemia secondary to above. History of CAD with previous PCI. Diabetes mellitus with hyperglycemia. Hypertension. History of hyperlipidemia. Chronic cephalgia. History of UC with previous colectomy and ileostomy. History of prostate cancer status post chemoradiation. Chronic right heel wound, status post debridement on 05/28/2024. Obesity, with a BMI of 38.8 kg/m . Never tobacco smoker. Plan: Plan dated June 11, 2024. The patient is seen today in room 366. He continues on BiPAP, with settings of 12/6, and 100%. We are hoping that after hemodialysis today, the FiO2 can be reduced. The patient is receiving saline at 10 cc an hour. In addition, the patient continues on cefepime, and daptomycin. Currently, cultures are negative. All labs, x-rays, and medications are reviewed. 50 minutes was spent with this patient, including time spent interviewing the patient, and examining him, reviewing pertinent labs, x-rays, and medications, as well as discussing the diagnosis, treatment, and prognosis, with the patient, and the patient's family, as well as the bedside nurse. Time with Patient: Greater than 30
[2024-06-11 17:09] LABS: Glucose,Whole Blood 97 mg/dL (70-110)
--- NOTE | 2024-06-11 17:17 | P.PN ---
Progress Note - Text Progress Note Date: 06/11/24 Chief Complaint: Short of breath Pleasant 73-year-old patient follows with Dr. Dennis. 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 Bales Chronic medical conditions include hypertension, hyperlipidemia, type 2 diabetes, mood disorder, and CAD , ostomy for 25 years, July 2023 stent to the LAD and second diagonal branch by Dr. Bales. April 26, [address] Bales: Following a non-ST relation ME: Patent stent to mid LAD. Late stent thrombosis of the second diagonal branch of the LAD. Severe disease involving the OM1 appears unchanged. Attempted balloon angioplasty performed to the second of diagonal branch with suboptimal results. Dose of Imdur was increased and Ranexa was added. Patient recently in the hospital from May 28 through May 31. Chronic headaches: MRI unremarkable. MR angio head and neck: MR angio head without contrast: No evidence of aneurysm or significant stenosis. Atrophic right A1 segment. origin of the right posterior cerebral artery.MRI of the brain nonspecific. Was seen by neurology Dr. Gay. Patient to follow-up outpatient Chronic right heel wound seen by Dr. Carpenter from vascular deep debridement was carried out. No need for antibiotics. Patient to follow-up with Dr. Jernigan at the wound center. Shortness of breath: Was seen by cardiology. Not for any further intervention. Patient doing well when discharged. Patient presented increased shortness of breath when at home. His pulse ox dropped out of the 80s. Increasing shortness of breath. Decreased appetite. No fever or chills. June 10: Using his BiPAP. Patient seen this morning. Later this afternoon. Right femoral vein dialysis catheter was placed by Dr. Carpenter from vascular for dialysis. Baseline some shortness of breath. Due for first dialysis today. Patient is right heel culture grew MRSA Proteus P Corynebacterium on May 29. Patient is on IV daptomycin and IV cefepime per ID. June 11: Patient seen this afternoon. On BiPAP. Getting hemodialysis. Remains on IV daptomycin IV Zosyn. Tired. Also getting IV iron. Patient really did not eat today. Because of BiPAP. Cut back Levemir to 26 units at night. DC scheduled NovoLog for now. Active Medications Acetaminophen (Acetaminophen Tab 325 Mg Tab) 650 mg PO Q6HR PRN PRN Reason: Mild Pain or Fever > 100.5 Acetaminophen/Butalbital/Caffeine (Butalb/Apap/Caff 50-325-40mg Tab) 1 each PO Q4H PRN PRN Reason: Migraine Headache Albuterol/Ipratropium (Ipratropium-Albuterol 3 Ml Neb) 3 ml INHALATION RT-QID [facility] Last Admin: 06/11/24 15:53 Dose: 3 ml Albuterol/Ipratropium (Ipratropium-Albuterol 3 Ml Neb) 3 ml INHALATION RT-QID PRN PRN Reason: Shortness Of Breath Or Wheezing Allopurinol (Allopurinol 100 Mg Tab) 100 mg PO DAILY [facility] Last Admin: 06/11/24 09:56 Dose: Not Given Amlodipine Besylate (Amlodipine 10 Mg Tab) 10 mg PO DAILY [facility] Last Admin: 06/11/24 09:56 Dose: Not Given Aspirin (Aspirin 81 Mg) 81 mg PO DAILY [facility] Last Admin: 06/11/24 09:56 Dose: Not Given Atorvastatin Calcium (Atorvastatin 40 Mg Tab) 40 mg PO DAILY [facility] Last Admin: 06/11/24 09:56 Dose: Not Given Budesonide (Budesonide 1 Mg/2 Ml Nebu) 1 mg INHALATION RT-BID [facility] Last Admin: 06/11/24 09:24 Dose: 1 mg Calcitriol (Calcitriol 0.25 Mcg Cap) 0.25 mcg PO Mo@0900 [facility] Last Admin: 06/10/24 10:33 Dose: 0.25 mcg Clopidogrel Bisulfate (Clopidogrel 75 Mg Tab) 75 mg PO DAILY [facility] Last Admin: 06/11/24 09:57 Dose: Not Given Collagenase (Collagenase 250 Unit/Gm Ointment 30 Gm Tube) 1 applic TOPICAL DAILY [facility]; Protocol Last Admin: 06/11/24 15:58 Dose: 1 applic Dextrose/Water (Dextrose 50% Syringe 50 Ml) 25 ml IVP PER PROTOCOL PRN; Protocol PRN Reason: Hypoglycemia Dextrose/Water (Dextrose 50% Syringe 50 Ml) 50 ml IVP PER PROTOCOL PRN; Protocol PRN Reason: Hypoglycemia Ergocalciferol (Ergocalciferol 1,250 Mcg (50,000 Iu) Capsule) 1,250 mcg PO Q14D [facility] Last Admin: 06/05/24 08:42 Dose: 1,250 mcg Escitalopram Oxalate (Escitalopram 10 Mg Tab) 10 mg PO DAILY [facility] Last Admin: 06/11/24 09:33 Dose: 10 mg Furosemide (Furosemide 10 Mg/Ml 10 Ml Vial) 80 mg IV Q12H [facility] Last Admin: 06/11/24 06:28 Dose: 80 mg Gabapentin (Gabapentin 100 Mg Cap) 100 mg PO HS [facility] Last Admin: 06/10/24 23:00 Dose: Not Given Hydralazine HCl (Hydralazine Hcl 25 Mg Tab) 25 mg PO TID [facility] Last Admin: 06/11/24 17:09 Dose: Not Given Daptomycin 350 mg/ Sodium (Chloride) 50 mls @ 100 mls/hr IVPB Q48H [facility]; Protocol Last Admin: 06/10/24 10:32 Dose: 100 mls/hr Ferric Sodium Gluconate 125 mg (/ Sodium Chloride) 110 mls @ 100 mls/hr IVPB DAILY [facility] Stop: 06/12/24 10:59 Last Admin: 06/11/24 13:25 Dose: 100 mls/hr Piperacillin Sod/Tazobactam (Sod 3.375 gm/ Sodium Chloride) 100 mls @ 25 mls/hr IVPB Q12HR [facility]; Protocol Insulin Aspart (Insulin Aspart (Novolog) 100 Unit/Ml Vial) 0 unit SQ ACHS [facility]; Protocol Last Admin: 06/11/24 17:09 Dose: Not Given Insulin Aspart (Insulin Aspart (Novolog) 100 Unit/Ml Vial) 20 unit SQ AC-TID [facility] Last Admin: 06/11/24 17:09 Dose: Not Given Insulin Detemir (Insulin Detemir (Levemir) 100 Unit/Ml Syr) 40 unit SQ HS [facility] Last Admin: 06/10/24 22:48 Dose: 40 unit Isosorbide Mononitrate (Isosorbide Mononitrate Er 60 Mg Tab.Er.24h) 60 mg PO DAILY [facility] Last Admin: 06/11/24 09:32 Dose: 60 mg Methylprednisolone Sodium Succinate (Methylprednisolone Sod Succi 125 Mg/2 Ml Vial) 60 mg IV Q6H [facility] Last Admin: 06/11/24 13:25 Dose: 60 mg Metolazone (Metolazone 5 Mg Tab) 5 mg PO DAILY [facility] Last Admin: 06/11/24 09:57 Dose: Not Given Metoprolol Succinate (Metoprolol Succinate (Er) 25 Mg Tab.Er.24h) 25 mg PO DAILY [facility] Last Admin: 06/11/24 09:32 Dose: 25 mg Naloxone HCl (Naloxone 0.4 Mg/Ml 1 Ml Vial) 0.2 mg IV Q2M PRN PRN Reason: Opioid Reversal Collagenase 250 Unit /Gm Ointment 30 Gm Tube 1 each TOPICAL DAILY [facility]; Protocol Last Admin: 06/11/24 12:50 Dose: Not Given Pantoprazole Sodium (Pantoprazole 40 Mg Tablet) 40 mg PO DAILY [facility] Last Admin: 06/11/24 09:32 Dose: 40 mg Ranolazine (Ranolazine 500 Mg Tab.Er.12h) 500 mg PO Q12HR [facility] Last Admin: 06/11/24 09:57 Dose: Not Given Sodium Bicarbonate (Sodium Bicarbonate Tab 650 Mg Tab) 650 mg PO DAILY [facility] Last Admin: 06/11/24 09:32 Dose: 650 mg Tamsulosin HCl (Tamsulosin 0.4 Mg Cap.Er.24h) 0.4 mg PO PC-BRKFST [facility] Last Admin: 06/11/24 09:56 Dose: Not Given Triamcinolone Acetonide (Triamcinolone Acet 0.5% Cream 15 Gm Tube) 1 applic TOPICAL BID PRN; Protocol PRN Reason: rash/dry skin Social history: Non-smoking. No alcohol. On examination: VITAL SIGNS: 97.7, 76, 22, 126 x 53, on BiPAP FiO2 100% 04/05. GENERAL APPEARANCE: Reclining in bed, with the BiPAP HEENT: Normal external appearance of nose and ear. Oral cavity normal EYES: Pupils equal. Conjunctiva normal. NECK: JVD not raised. Mass not palpable. RESPIRATORY: Respiratory effort increased lungs decreased breath sounds CARDIOVASCULAR: First and second sounds normal. Minimal edema in the right leg ABDOMEN: Soft. Liver and spleen not palpable. No tenderness. No right upper quadrant tenderness. No mass palpable. Colostomy bag with liquid stool PSYCHIATRY: Tired Extremity: Has a wound on the right heel. More details in the chart INVESTIGATIONS, reviewed in the clinical context: June 11: Potassium 4.9 BUN 108 creatinine 4.1 June 10: White count 12.8 hemoglobin 7.9 platelets 335 sodium 135 potassium 5.2 BUN 118 creatinine 4.1 June 04: White count 10.2 hemoglobin 10.4 platelet 374 sodium 135 potassium 4.6 BUN 66 creatinine 2.71 troponin I less than 0.012 proBNP 2550 EKG tracing personally reviewed by me-atrial fibrillation. Rate 68 Chest x-ray film personally reviewed by me-pulm edema Recent labs May 30: Potassium 4.7 BUN 42.3 creatinine 2.3 2D echocardiogram: [May 29, 2024] EF 55 to 60%. CT scan brain without contrast: Chronic appearing periventricular white matter ischemic changes. Previous labs: Creatinine 1.6 on April 28/2024 Assessment and plan: -Acute on chronic congestive heart failure exacerbation, from diastolic dysfunction EF 55 to 60%.: Slow to respond IV Lasix 80 mg twice daily Started on dialysis June 10. -Acute hypoxic respiratory failure from pulmonary edema: Not improving On BiPAP -COPD non-smoker DuoNeb 4 times daily. Nebulized Pulmicort -Chronic ostomy-functioning well -Chronic cephalgia. Patient stated headaches for greater than 6 months. Practically every day. Does not interfere with his eating. No exacerbating relieving factors: Possible tension headaches. CT scan of the brain shows some chronic changes MRI and MRI of the brain showing chronic changes. Seen by Dr. Gay from neurology a week ago. Further outpatient follow-up with neurology -Right heel wound. Dry. Follows with Dr. Jernigan at the wound center. Dr. Carpenter from vascular-. Deep debridement carried recently Wound culture [May 29] MRSA, Proteus IV cefepime, daptomycin per ID -Chronic parastomal hernia #Hypertension: Amlodipine. Toprol-XL. Hydralazine -Acute kidney injury, worsening, likely cardiorenal: Worsening Right femoral vein dialysis catheter placed by Dr. Carpenter on June 10. Hemodialysis started June 10 -CKD likely nephrosclerosis, diabetic nephropathy Creatinine was 1.6 on April 28, 2024. -CAD with stent Toprol-XL -Anemia in the setting of chronic kidney disease. Iron deficiency anemia. Receiving IV iron -Primary osteoarthritis Pain medication as needed -History of prostate cancer with radiation and chemo in 2020. #Diabetes mellitus type II, chronically on insulin: Tresiba. Follow Accu-Cheks #Hyperlipidemia: Lipitor #GERD: Protonix -Full code Dialysis today. Not eating because of BiPAP. Cut back scheduled Humalog. Decrease p.m. dose of Levemir to 26 units. Past Medical History Past Medical History: Cancer, Chest Pain / Angina, Diabetes Mellitus, Eye Disorder, GERD/Reflux, Hyperlipidemia, Hypertension, Osteoarthritis (OA), Prostate Disorder, Renal Disease Additional Past Medical History / Comment(s): HX OF ULCERATIVE COLITIS, ileostomy PARASTOMAL HERNIA, PROSTATE CA WITH RADIATION AND CHEMO IN 2020, LOW KIDNEY FUNCTION,Covid Dec 2022, Influenza A Jun 2023, eye condition, unsure of name. History of Any Multi-Drug Resistant Organisms: MRSA Date of last positivie culture/infection: 05/24/24 MDRO Source:: rt heel, scalp Past Surgical History: Appendectomy, Bowel Resection, Heart Catheterization, Heart Catheterization With Stent Additional Past Surgical History / Comment(s): COLECTOMY, RECTUM REMOVED, ELLIOTT CATARACTS removed, ILEOSTOMY, HERNIA SURGERY. Past Anesthesia/Blood Transfusion Reactions: No Reported Reaction Additional Past Anesthesia/Blood Transfusion Reaction / Comment(s): no problems with prior blood transfusions. Date of Last Stent Placement:: 08/01/2023 Past Psychological History: No Psychological Hx Reported Smoking Status: Never smoker Past Alcohol Use History: None Reported Past Drug Use History: None Reported
[2024-06-11 20:25] LABS: Glucose,Whole Blood 111 mg/dL (70-110)
[2024-06-11 22:35] LABS: Glucose,Whole Blood 136 mg/dL (70-110)
[2024-06-11] MEDS: INSULIN DETEMIR (LEVEMIR) 100 UNIT/ML SYR SQ SCH (22:36)
[2024-06-11] MEDS: PIPERACILLIN-TAZOBACTAM 3.375 GM in SODIUM CHLORIDE 0.9% 100 ML IVPB SCH (22:38)
[2024-06-12 01:01] LABS: Glucose,Whole Blood 174 mg/dL (70-110)
[2024-06-12] MEDS: HALOPERIDOL LACTATE 5 MG/ML 1 ML VIAL IVP PRN (05:27)
[2024-06-12 06:18] LABS: Glucose,Whole Blood 178 mg/dL (70-110)
[2024-06-12 06:35] LABS: African American GFR (CKD) 19 (>60 ml/min/1.73 sqM); Anion Gap 18 mmol/L; Blood Urea Nitrogen 90 mg/dL (9-20); Calcium 8.9 mg/dL (8.4-10.2); Carbon Dioxide 23 mmol/L (22-30); Chloride 94 mmol/L (98-107); Glucose 165 mg/dL (74-99); Non-African American GFR(CKD) 16 (>60 ml/min/1.73 sqM); Phosphorus 5.3 mg/dL (2.5-4.5); Potassium 4.4 mmol/L (3.5-5.1); Sodium 135 mmol/L (137-145)
[2024-06-12 06:47] LABS: Anisocytosis Slight; Basophils % (A) 0 %; Eosinophils % (A) 0 %; HCT 26.9 % (39.0-53.0); Hypochromasia Moderate; Lymphocytes # (A) 0.2 k/uL (1.0-4.8); Lymphocytes % (A) 1 %; MCH 30.2 pg (25.0-35.0); MCHC 31.2 g/dL (31.0-37.0); Macrocytosis Slight; Mean Platelet Volume 8.7; Monocytes # (A) 0.7 k/uL (0-1.0); Monocytes % (A) 4 %; Neutrophils # (A) 14.9 k/uL (1.3-7.7); Neutrophils % (A) 94 %; Platelet Count 257 k/uL (150-450); Poikilocytosis Slight; RBC 2.77 m/uL (4.30-5.90); RDW 18.2 % (11.5-15.5); WBC 15.8 k/uL (3.8-10.6)
[2024-06-12 07:08] LABS: HGB 8.4 gm/dL (13.0-17.5)
--- NOTE | 2024-06-12 08:51 | XR ---
EXAMINATION TYPE: XR chest 1V portable DATE OF EXAM: 06/12/2024 4:34 AM COMPARISON: 06/10/2024 CLINICAL INDICATION: Male, 73 years old with history of fluid overload, , FINDINGS: Heart borderline enlarged. Patchy and confluent diffuse bilateral airspace opacities persist without significant change. IMPRESSION: Diffuse bilateral airspace disease persists without significant change. [facility], Workstation: [facility], 06/12/2024 8:49 AM
--- NOTE | 2024-06-12 09:28 | P.PN ---
Subjective Patient is seen in follow-up for acute kidney injury on chronic kidney disease. Started on hemodialysis June 10, 2024. Tolerated 2 L ultrafiltration yesterday. On BiPAP. Vital signs are stable. General: No acute distress. HEENT: Head exam is unremarkable. On BiPAP. LUNGS: Scattered wheezing. HEART: Rate and Rhythm are regular. ABDOMEN: Nontender. Obese. EXTREMITITES: 1+ edema. Chronic changes noted. Objective - Vital Signs Vital signs: Vital Signs Temp 97.8 F 06/12/24 08:00 Pulse 73 06/12/24 08:14 Resp 17 06/12/24 08:00 BP 109/52 06/12/24 08:00 Pulse Ox 96 06/12/24 08:00 FiO2 90 06/12/24 08:00 Intake & Output 06/11/24 06/12/24 06/12/24 18:59 06:59 18:59 Intake Total 400 280 10 Output Total 4575 245 30 Balance -4175 35 -20 Weight 108.227 kg 108.227 kg Intake: IV 280 10 Piperacillin-Tazobactam 3 100 .375 gm In Sodium Chloride 0.9% 100 ml @ 25 mls/hr IVPB Q12HR [facility] Rx #:[id number] Sodium Chloride 0.9% 1000 180 10 mL @ 10 mLs/hr Hemodialysis 400 Output: Urine 175 245 30 Hemodialysis 2400 Hemodialysis Net Amount 1999 Other: Voiding Method Indwelling Catheter Indwelling Catheter # Bowel Movements 1 - Labs CBC & Chem 7: 06/12/24 06:00 06/12/24 06:00 Labs: Abnormal Lab Results - Last 24 Hours (Table) 06/11/24 06/11/24 06/11/24 Range/Units 06:55 20:23 22:33 WBC (3.8-10.6) k/uL RBC (4.30-5.90) m/uL Hgb (13.0-17.5) gm/dL Hct (39.0-53.0) % RDW (11.5-15.5) % Neutrophils # (1.3-7.7) k/uL Lymphocytes # (1.0-4.8) k/uL Sodium (137-145) mmol/L Chloride (98-107) mmol/L Anion Gap 18.00 H (4.00-12.00) mmol/L BUN 108.0 H (9.0-27.0) mg/dL Creatinine 4.1 H (0.6-1.5) mg/dL Est GFR (CKD-EPI) 15 L (>=60) BUN/Creatinine Ratio 26.34 H (12.00-20.00) Ratio Glucose (74-99) mg/dL POC Glucose (mg/dL) 111 H 136 H (70-110) mg/dL Phosphorus (2.5-4.5) mg/dL 06/12/24 06/12/24 06/12/24 Range/Units 00:59 06:00 06:00 WBC 15.8 H (3.8-10.6) k/uL RBC 2.77 L (4.30-5.90) m/uL Hgb 8.4 L D (13.0-17.5) gm/dL Hct 26.9 L (39.0-53.0) % RDW 18.2 H (11.5-15.5) % Neutrophils # 14.9 H (1.3-7.7) k/uL Lymphocytes # 0.2 L (1.0-4.8) k/uL Sodium 135 L (137-145) mmol/L Chloride 94 L (98-107) mmol/L Anion Gap (4.00-12.00) mmol/L BUN 90 H (9.0-27.0) mg/dL Creatinine 3.51 H (0.6-1.5) mg/dL Est GFR (CKD-EPI) (>=60) BUN/Creatinine Ratio (12.00-20.00) Ratio Glucose 165 H (74-99) mg/dL POC Glucose (mg/dL) 174 H (70-110) mg/dL Phosphorus 5.3 H (2.5-4.5) mg/dL 06/12/24 Range/Units 06:16 WBC (3.8-10.6) k/uL RBC (4.30-5.90) m/uL Hgb (13.0-17.5) gm/dL Hct (39.0-53.0) % RDW (11.5-15.5) % Neutrophils # (1.3-7.7) k/uL Lymphocytes # (1.0-4.8) k/uL Sodium (137-145) mmol/L Chloride (98-107) mmol/L Anion Gap (4.00-12.00) mmol/L BUN (9.0-27.0) mg/dL Creatinine (0.6-1.5) mg/dL Est GFR (CKD-EPI) (>=60) BUN/Creatinine Ratio (12.00-20.00) Ratio Glucose (74-99) mg/dL POC Glucose (mg/dL) 178 H (70-110) mg/dL Phosphorus (2.5-4.5) mg/dL Microbiology - Last 24 Hours (Table) 06/06/24 14:05 Blood Culture - Final Blood Assessment and Plan Plan: Assessment: 1. Acute kidney injury secondary to ATN secondary to cardiorenal syndrome. UA benign. No hydronephrosis noted on imaging. Creatinine 4.1 dated June 10, 2024. Oliguric. Started on hemodialysis June 10, 2024. Has right femoral catheter. 2. Chronic kidney disease stage IV with baseline creatinine near 2. 3. Volume overload. 4. Coronary disease with cardiac stents. 5. Hypertension with chronic kidney disease. Stable. 6. Metabolic acidosis secondary to chronic kidney disease maintained on oral bicarb. 7. Diabetes mellitus. 8. Right foot ulcer status post debridement. On antibiotics. 9. 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 Phosphorus level 5.3 dated June 12, 2024. 10. Anemia of chronic kidney disease. Iron deficiency noted. Plan: Third treatment of hemodialysis today. Another treatment tomorrow mostly for ultrafiltration. Maintain IV Lasix. Hold Farxiga due to active infection and severely impaired renal function. Avoid nephrotoxins. Continue to monitor renal function and urine output. Maintain IV iron. Add Aranesp. Monitor for renal recovery. Wean FiO2.
[2024-06-12 09:48] LABS: ABG Base Excess 3.1 mmol/L; ABG HCO3 28 mmol/L (21-25); ABG Oxygen Saturation 60.7 % (94-97); ABG PCO2 42 mmHg (35-45); ABG PH 7.43 (7.35-7.45); ABG TCO2 29 mmol/L (19-24); Allen Test Performed? Yes
[2024-06-12 09:59] LABS: ABG PO2 34 mmHg (83-108)
[2024-06-12 10:23] LABS: ABG Base Excess 2.2 mmol/L; ABG HCO3 27 mmol/L (21-25); ABG Oxygen Saturation 90.9 % (94-97); ABG PCO2 39 mmHg (35-45); ABG PH 7.44 (7.35-7.45); ABG PO2 60 mmHg (83-108); ABG TCO2 28 mmol/L (19-24); Allen Test Performed? Yes
[2024-06-12 11:40] LABS: Glucose,Whole Blood 224 mg/dL (70-110)
--- NOTE | 2024-06-12 12:00 | P.PN ---
Subjective Progress Note Date: 06/12/24 Patient is a 73-year-old male with past medical history significant for hypertension, hyperlipidemia, coronary artery disease with previous PCI/stenting, heart failure, chronic kidney disease, diabetes mellitus, chronic right heel wound, ulcerative colitis with previous colectomy and ileostomy. Of note, patient had a recent hospitalization late May and was just discharged 05/31/2024 for CHF exacerbation. Echocardiogram done during this hospitalization estimating a preserved left ventricular ejection fraction of 55 to 60%. Limited study, but no acute valvular abnormalities reported. Presented the emergency department on 06/04/2024 with a chief complaint of shortness of breath, mostly on exertion. Chest x-ray showing cardiomegaly, mild pulmonary vascular congestion, and a small pleural effusion on the left. NT proBNP elevated 2550. Currently receiving Lasix 80 mg twice daily. CBC: WBC count 10.2, hemoglobin 10.4, hematocrit 32.5, platelets 374. CMP: Sodium 135, potassium 4.6, chloride 101, serum bicarb 18, BUN 66, creatinine 2.71, glucose 139. Troponin is less than 0.012. Patient currently being evaluated on the general medical floor. Appears weak and deconditioned. He is resting in bed on 1 L/min nasal cannula. No respiratory distress noted. Complaining of a generalized headache, which he states is chronic. States that he has been short of breath on exertion for several months to almost 1 year. Particularly on exertion such as climbing stairs or walking to the bathroom. Denies history of COPD or asthma. Never tobacco smoker. Worked in an [employer] shop before he retired. Denies cough. Denies infectious-like symptoms. Current vital signs: Temperature 98 F, heart rate 78 bpm, blood pressure 145/54 mmHg, nontachypneic, SpO2 recorded at 91% on 1 L/min nasal cannula. The patient is seen today June 07, 2024 in follow-up on the regular medical floor. He is awake and alert in no acute distress. Sitting up at the bedside. Maintaining O2 saturations in the 90s on 3 L/min per nasal cannula. White count 9.8. Hemoglobin 8.9. Platelets 366. Sodium 140. Potassium 4.7. Bicarb 22. BUN 60. Creatinine 2.4. Glucose 97. He remains on DuoNeb and elations, Pulmicort inhalations. Lasix 80 mg IV every 12 hours. He is currently -1.1 L balance. Antibiotics in the form of cefepime and daptomycin for his diabetic ulcer of the right foot. X-ray revealed no osseous erosion or acute fracture. The patient is seen today June 08, 2024 in follow-up on the regular medical floor. He did have issues with worsening shortness of breath. He is currently on BiPAP 12/6 and 40% FiO2. White count 6.3. Hemoglobin 8.5. Platelets 357. Sodium 136. Potassium 5.8. Bicarb 21. BUN 64. Creatinine 2.4. Glucose 178. Chest x-ray continues to show evidence of congestive heart failure. He is currently on Lasix 80 mg IV every 12 hours. Continued on bronchodilators and steroids. Remains on antibiotics in the form of cefepime and daptomycin. The patient is seen today June 09, 2024 in follow-up on the regular medical floor. He is currently resting comfortably in bed. Awake and alert in no acute distress. Breathing easier today compared to yesterday. He is currently on BiPAP 12/6 and 40% FiO2. White count 10.1. Hemoglobin 8.0. Platelets 339. Sodium 136. Potassium 5.8. Bicarb 21. BUN 94. Creatinine 3.4. Glucose 234. He remains on DuoNeb and elations, Pulmicort inhalations, Solu-Medrol. Remains on IV diuretics. Remains on cefepime and daptomycin. Receiving Lokelma. The patient is seen today June 10, 2024 in follow-up on the regular medical floor. He is currently sitting up at the bedside. Awake and alert in no acute distress. He is requiring BiPAP support at 12/6 and 60% FiO2. Alternating with oxygen at 4 L/min per nasal cannula. He is continued on DuoNeb inhalations, Pulmicort inhalations, Solu-Medrol. He remains on antibiotics in the form of cefepime and daptomycin. Receiving iron supplement. Continued on IV diuretics. Continued on sodium bicarb tablets. White count 12.8. Hemoglobin 7.9. Platelets 335. Sodium 135. Potassium 5.2. Bicarb 23. BUN 118. Creatinine 4.1. Glucose 131. Plan is for placement of a hemodialysis catheter today and to receive hemodialysis today and tomorrow per nephrology. The patient is seen today June 11, 2024 in follow-up in the intensive care unit. He was transferred here last evening as his oxygen requirements increased. He is currently on BiPAP 12/6 and 90% FiO2. Arterial blood gases revealed a PaO2 of 60, pCO2 39 and a pH of 7.44. Chest x-ray continues to show diffuse bilateral airspace disease. Blood culture revealed no growth. White count 15.8. Hemoglobin 8.4. Platelets 257. Sodium 135. Potassium 4.4. Bicarb 23. BUN 90. Creatinine 3.51. Glucose 165. proBNP 7440. Procalcitonin pending. He is continued on daptomycin and Zosyn. Remains on Lasix 80 mg IV every 12 hours. Oertli in a -4 L balance. He did receive hemodialysis y and again today 2 L removed each time. He is continued on DuoNeb and elations, Pulmicort inhalations. Solu-Medrol. Objective - Vital Signs Vital signs: Vital Signs Temp 97.8 F 06/12/24 08:00 Pulse 80 06/12/24 11:40 Resp 20 06/12/24 11:00 BP 135/57 06/12/24 11:00 Pulse Ox 92 L 06/12/24 11:00 FiO2 90 06/12/24 11:31 Intake & Output 06/11/24 06/12/24 06/12/24 18:59 06:59 18:59 Intake Total 400 280 40 Output Total 4575 245 100 Balance -4175 35 -60 Weight 108.227 kg 108.227 kg Intake: IV 280 40 Piperacillin-Tazobactam 3 100 .375 gm In Sodium Chloride 0.9% 100 ml @ 25 mls/hr IVPB Q12HR [facility] Rx #:[id number] Sodium Chloride 0.9% 1000 180 40 mL @ 10 mLs/hr Hemodialysis 400 Output: Urine 175 245 100 Hemodialysis 2400 Hemodialysis Net Amount 1999 Other: Voiding Method Indwelling Catheter Indwelling Catheter Indwelling Catheter # Bowel Movements 1 - Exam GENERAL EXAM: Arousable 73-year-old obese male, on BiPAP 12/6 and 90% FiO2. HEAD: Normocephalic and atraumatic EYES: Normal reaction of pupils, equal size. NOSE: Clear with pink turbinates. THROAT: No erythema or exudates. NECK: No masses, no JVD. CHEST: No chest wall deformity. LUNGS: Equal air entry with diminished lung sounds throughout. Crackles in the bilateral bases. CVS: S1 and S2 normal with no audible murmur, regular rhythm. No extra heart sounds ABDOMEN: No hepatosplenomegaly, active bowel sounds, no guarding or rigidity. Functional ileostomy SPINE: No scoliosis or deformity SKIN: Generalized erythemic plaques involving upper extremities, chest, back CENTRAL NERVOUS SYSTEM: No focal deficits, tone is normal in all 4 extremities. EXTREMITIES: There is no peripheral edema, clubbing, or cyanosis. Peripheral pulses are intact. Right foot is wrapped with Lloyd bandage. - Labs CBC & Chem 7: 06/12/24 06:00 06/12/24 06:00 Labs: Abnormal Lab Results - Last 24 Hours (Table) 06/11/24 06/11/24 06/11/24 Range/Units 06:55 20:23 22:33 WBC (3.8-10.6) k/uL RBC (4.30-5.90) m/uL Hgb (13.0-17.5) gm/dL Hct (39.0-53.0) % RDW (11.5-15.5) % Neutrophils # (1.3-7.7) k/uL Lymphocytes # (1.0-4.8) k/uL ABG pO2 (83-108) mmHg ABG HCO3 (21-25) mmol/L ABG Total CO2 (19-24) mmol/L ABG O2 Saturation (94-97) % Hemoglobin (13.0-17.5) gm/dL Sodium (137-145) mmol/L Chloride (98-107) mmol/L Anion Gap 18.00 H (4.00-12.00) mmol/L BUN 108.0 H (9.0-27.0) mg/dL Creatinine 4.1 H (0.6-1.5) mg/dL Est GFR (CKD-EPI) 15 L (>=60) BUN/Creatinine Ratio 26.34 H (12.00-20.00) Ratio Glucose (74-99) mg/dL POC Glucose (mg/dL) 111 H 136 H (70-110) mg/dL Phosphorus (2.5-4.5) mg/dL 06/12/24 06/12/24 06/12/24 Range/Units 00:59 06:00 06:00 WBC 15.8 H (3.8-10.6) k/uL RBC 2.77 L (4.30-5.90) m/uL Hgb 8.4 L D (13.0-17.5) gm/dL Hct 26.9 L (39.0-53.0) % RDW 18.2 H (11.5-15.5) % Neutrophils # 14.9 H (1.3-7.7) k/uL Lymphocytes # 0.2 L (1.0-4.8) k/uL ABG pO2 (83-108) mmHg ABG HCO3 (21-25) mmol/L ABG Total CO2 (19-24) mmol/L ABG O2 Saturation (94-97) % Hemoglobin (13.0-17.5) gm/dL Sodium 135 L (137-145) mmol/L Chloride 94 L (98-107) mmol/L Anion Gap (4.00-12.00) mmol/L BUN 90 H (9.0-27.0) mg/dL Creatinine 3.51 H (0.6-1.5) mg/dL Est GFR (CKD-EPI) (>=60) BUN/Creatinine Ratio (12.00-20.00) Ratio Glucose 165 H (74-99) mg/dL POC Glucose (mg/dL) 174 H (70-110) mg/dL Phosphorus 5.3 H (2.5-4.5) mg/dL 06/12/24 06/12/24 06/12/24 Range/Units 06:16 09:46 10:21 WBC (3.8-10.6) k/uL RBC (4.30-5.90) m/uL Hgb (13.0-17.5) gm/dL Hct (39.0-53.0) % RDW (11.5-15.5) % Neutrophils # (1.3-7.7) k/uL Lymphocytes # (1.0-4.8) k/uL ABG pO2 34 L* 60 L (83-108) mmHg ABG HCO3 28 H 27 H (21-25) mmol/L ABG Total CO2 29 H 28 H (19-24) mmol/L ABG O2 Saturation 60.7 L 90.9 L (94-97) % Hemoglobin 8.3 L 8.6 L (13.0-17.5) gm/dL Sodium (137-145) mmol/L Chloride (98-107) mmol/L Anion Gap (4.00-12.00) mmol/L BUN (9.0-27.0) mg/dL Creatinine (0.6-1.5) mg/dL Est GFR (CKD-EPI) (>=60) BUN/Creatinine Ratio (12.00-20.00) Ratio Glucose (74-99) mg/dL POC Glucose (mg/dL) 178 H (70-110) mg/dL Phosphorus (2.5-4.5) mg/dL 06/12/24 Range/Units 11:37 WBC (3.8-10.6) k/uL RBC (4.30-5.90) m/uL Hgb (13.0-17.5) gm/dL Hct (39.0-53.0) % RDW (11.5-15.5) % Neutrophils # (1.3-7.7) k/uL Lymphocytes # (1.0-4.8) k/uL ABG pO2 (83-108) mmHg ABG HCO3 (21-25) mmol/L ABG Total CO2 (19-24) mmol/L ABG O2 Saturation (94-97) % Hemoglobin (13.0-17.5) gm/dL Sodium (137-145) mmol/L Chloride (98-107) mmol/L Anion Gap (4.00-12.00) mmol/L BUN (9.0-27.0) mg/dL Creatinine (0.6-1.5) mg/dL Est GFR (CKD-EPI) (>=60) BUN/Creatinine Ratio (12.00-20.00) Ratio Glucose (74-99) mg/dL POC Glucose (mg/dL) 224 H (70-110) mg/dL Phosphorus (2.5-4.5) mg/dL Microbiology - Last 24 Hours (Table) 06/06/24 14:05 Blood Culture - Final Blood Assessment and Plan Assessment: Acute exacerbation of diastolic congestive heart failure Acute hypoxemic respiratory failure, secondary to above Acute on chronic shortness of breath Acute on chronic kidney disease now requiring renal replacement therapy that started June 10, 2024 Hyperkalemia secondary to above, receiving Lokelny Acute on chronic anemia secondary to above, current hemoglobin 8.4 History of CAD with previous PCI Diabetes mellitus with hyperglycemia Hypertension History of hyperlipidemia Chronic cephalgia History of UC with previous colectomy and ileostomy History of prostate cancer status post chemoradiation Chronic right heel wound, status post debridement on 05/28/2024 Obesity, with a BMI of 38.8 kg/m Never tobacco smoker Plan: The patient was seen and evaluated Chest x-ray, ABGs, labs and medications reviewed To receive hemodialysis today Continue BiPAP 12/6 and 90% as needed Alternate with nasal cannula as tolerated Continue bronchodilators, steroids Continue diuretics We will continue to follow I have personally seen and examined the patient, performed the documentation and the assessment and plan as written. Number of minutes spent on the visit: 20 Dictation was produced using [employer] dictation software. Please excuse any grammatical, word or spelling errors.
--- NOTE | 2024-06-12 12:28 | P.PN ---
Subjective Progress Note Date: 06/12/24 Principal diagnosis: Reason for follow-up is right heel diabetic foot ulcer with MRSA infection Patient is a 73-year-old male with a past medical history significant for diabetes mellitus hypertension hyperlipidemia osteomyelitis patient has been dealing with a chronic nonhealing wound to the right heel area for months now and is being treated in outpatient setting by Dr. 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 On today's evaluation that is 06/12/2024,the patient has been transferred out of the ICU patient remains to be afebrile still requiring BiPAP on 90% FiO2 proceed to be slightly more awake today and trying to communicate denies any chest pain or worsening cough no abdominal pain or diarrhea. The patient was 2015.8 creatinine 3.51 Objective - Vital Signs Vital signs: Vital Signs Temp 97.8 F 06/12/24 08:00 Pulse 82 06/12/24 10:00 Resp 26 H 06/12/24 10:00 BP 128/59 06/12/24 10:00 Pulse Ox 91 L 06/12/24 10:00 FiO2 90 06/12/24 08:00 Intake & Output 06/11/24 06/12/24 06/12/24 18:59 06:59 18:59 Intake Total 400 280 30 Output Total 4575 245 80 Balance -4175 35 -50 Weight 108.227 kg 108.227 kg Intake: IV 280 30 Piperacillin-Tazobactam 3 100 .375 gm In Sodium Chloride 0.9% 100 ml @ 25 mls/hr IVPB Q12HR [facility] Rx #:[id number] Sodium Chloride 0.9% 1000 180 30 mL @ 10 mLs/hr Hemodialysis 400 Output: Urine 175 245 80 Hemodialysis 2400 Hemodialysis Net Amount 1999 Other: Voiding Method Indwelling Catheter Indwelling Catheter Indwelling Catheter # Bowel Movements 1 - Exam GENERAL DESCRIPTION: An elderly male lying in bed in no distress RESPIRATORY SYSTEM: Unlabored breathing , decreased breath sounds at bases HEART: S1 S2 regular rate and rhythm , ABDOMEN: Soft , no tenderness EXTREMITIES: Right heel is currently dressed - Labs CBC & Chem 7: 06/12/24 06:00 06/12/24 06:00 Labs: Abnormal Lab Results - Last 24 Hours (Table) 06/11/24 06/11/24 06/11/24 Range/Units 06:55 20:23 22:33 WBC (3.8-10.6) k/uL RBC (4.30-5.90) m/uL Hgb (13.0-17.5) gm/dL Hct (39.0-53.0) % RDW (11.5-15.5) % Neutrophils # (1.3-7.7) k/uL Lymphocytes # (1.0-4.8) k/uL ABG pO2 (83-108) mmHg ABG HCO3 (21-25) mmol/L ABG Total CO2 (19-24) mmol/L ABG O2 Saturation (94-97) % Hemoglobin (13.0-17.5) gm/dL Sodium (137-145) mmol/L Chloride (98-107) mmol/L Anion Gap 18.00 H (4.00-12.00) mmol/L BUN 108.0 H (9.0-27.0) mg/dL Creatinine 4.1 H (0.6-1.5) mg/dL Est GFR (CKD-EPI) 15 L (>=60) BUN/Creatinine Ratio 26.34 H (12.00-20.00) Ratio Glucose (74-99) mg/dL POC Glucose (mg/dL) 111 H 136 H (70-110) mg/dL Phosphorus (2.5-4.5) mg/dL 06/12/24 06/12/24 06/12/24 Range/Units 00:59 06:00 06:00 WBC 15.8 H (3.8-10.6) k/uL RBC 2.77 L (4.30-5.90) m/uL Hgb 8.4 L D (13.0-17.5) gm/dL Hct 26.9 L (39.0-53.0) % RDW 18.2 H (11.5-15.5) % Neutrophils # 14.9 H (1.3-7.7) k/uL Lymphocytes # 0.2 L (1.0-4.8) k/uL ABG pO2 (83-108) mmHg ABG HCO3 (21-25) mmol/L ABG Total CO2 (19-24) mmol/L ABG O2 Saturation (94-97) % Hemoglobin (13.0-17.5) gm/dL Sodium 135 L (137-145) mmol/L Chloride 94 L (98-107) mmol/L Anion Gap (4.00-12.00) mmol/L BUN 90 H (9.0-27.0) mg/dL Creatinine 3.51 H (0.6-1.5) mg/dL Est GFR (CKD-EPI) (>=60) BUN/Creatinine Ratio (12.00-20.00) Ratio Glucose 165 H (74-99) mg/dL POC Glucose (mg/dL) 174 H (70-110) mg/dL Phosphorus 5.3 H (2.5-4.5) mg/dL 06/12/24 06/12/24 06/12/24 Range/Units 06:16 09:46 10:21 WBC (3.8-10.6) k/uL RBC (4.30-5.90) m/uL Hgb (13.0-17.5) gm/dL Hct (39.0-53.0) % RDW (11.5-15.5) % Neutrophils # (1.3-7.7) k/uL Lymphocytes # (1.0-4.8) k/uL ABG pO2 34 L* 60 L (83-108) mmHg ABG HCO3 28 H 27 H (21-25) mmol/L ABG Total CO2 29 H 28 H (19-24) mmol/L ABG O2 Saturation 60.7 L 90.9 L (94-97) % Hemoglobin 8.3 L 8.6 L (13.0-17.5) gm/dL Sodium (137-145) mmol/L Chloride (98-107) mmol/L Anion Gap (4.00-12.00) mmol/L BUN (9.0-27.0) mg/dL Creatinine (0.6-1.5) mg/dL Est GFR (CKD-EPI) (>=60) BUN/Creatinine Ratio (12.00-20.00) Ratio Glucose (74-99) mg/dL POC Glucose (mg/dL) 178 H (70-110) mg/dL Phosphorus (2.5-4.5) mg/dL Microbiology - Last 24 Hours (Table) 06/06/24 14:05 Blood Culture - Final Blood Assessment and Plan (1) Diabetic infection of right foot Current Visit: Yes Status: Acute Code(s): E11.628 - TYPE 2 DIABETES MELLITUS WITH OTHER SKIN COMPLICATIONS; L08.9 - LOCAL INFECTION OF THE SKIN AND SUBCUTANEOUS TISSUE, UNSP SNOMED Code(s): 584854590 (2) MRSA (methicillin resistant staph aureus) culture positive Current Visit: Yes Status: Acute Code(s): Z22.322 - CARRIER OR SUSPECTED CARRIER OF METHICILLIN RESIS STAPH SNOMED Code(s): 321150692 (3) Diabetic ulcer of right foot Current Visit: No Status: Acute Code(s): E11.621 - TYPE 2 DIABETES MELLITUS WITH FOOT ULCER; L97.519 - NON-PRS CHRONIC ULCER OTH PRT RIGHT FOOT W UNSP SEVERITY SNOMED Code(s): 426305966 (4) Stage III pressure ulcer of right heel Current Visit: No Status: Acute Code(s): L89.613 - PRESSURE ULCER OF RIGHT HEEL, STAGE 3 SNOMED Code(s): 07212277944455 Plan: 1patient with a chronic nonhealing wound to the right heel which he has for couple of months the wound looks deep with a recent culture positive for Proteus and MRSA concerning for wound infection and question for possible deeper infection such as osteomyelitis as wound has been there for couple of months now 2-patient did have elevated creatinine would be high risk of nephrotoxicity from vancomycin which is typically used for MRSA infection 3- x-rays of the right heel with no evidence of any bony changes 4-patient has been evaluated by Dr. Carpenter and did have surgical debridement completed on 06/07/2024 5-patient remains to be afebrile, patient seem to have some improvement in mentation after adjusting antibiotic to Zosyn to continue along with daptomycin and monitor clinical course closely Dictation was produced using [employer] software. please excuse any grammatical, word or spelling errors. Time with Patient: Less than 30
[2024-06-12] MEDS: DARBEPOETIN ALFA 40 MCG/0.4 ML SYRINGE SQ SCH (12:47)
--- NOTE | 2024-06-12 14:35 | P.PN ---
Subjective Progress Note Date: 06/12/24 HISTORY OF PRESENT ILLNESS: This is 73-year-old male patient of Dr. Bales with past medical history of co ronary artery disease status post PCI of the LAD and second diagonal branch, known severe disease involving the OM1, heart failure with preserved EF, diabetes, hypertension, dyslipidemia, chronic kidney disease, dilated ascending aorta, history of colectomy and overweight. We have been asked to evaluate the patient for CHF. Patient was recently hospitalized 05/28 - 05/31 and was treated for CHF and acute kidney injury. Patient states that when he went home he did not feel any better related to shortness of breath and when he had come in. He states he continues to have shortness of breath which is worsening and also has a little lightheadedness and dizziness. He complains of chest pain across the mid chest and also some left lower abdominal pain. He denies cough but he states in the morning he has sputum production. No significant lower extremity edema. He does have a chronic wound to the right foot with the boot in place. Blood pressure 121/61, heart rate 69, pulse ox 96% on 2 and half liters nasal cannula. Patient has been started on IV Lasix 80 mg every 12 hours. -EKG: Atrial fibrillation [address] changes -Chest x-ray: Correlate for volume overload -Laboratory studies: WBC 10.2, hemoglobin 10.4, platelet count 374. Sodium 135, potassium 4.6, BUN 66 and creatinine 2.71. Troponin negative x 1. proBNP 2550. -Home cardiac medications: Amlodipine 10 mg daily, aspirin 81 mg daily, atorvastatin 40 mg daily, Plavix 75 mg daily, Farxiga 10 mg daily, hydralazine 25 mg 3 times daily, Imdur 60 mg daily, Toprol XL 25 mg daily, Ranexa 500 mg every 12 hours, Demadex 40 mg daily. -Echocardiogram from 05/28/2024 revealed technical difficult study minimal mitral and tricuspid regurgitation. No pericardial effusion. -Cardiac catheterization history: April 26, 2024 revealing patent stent in the mid LAD. Late stent thrombosis of the second diagonal branch of the LAD, severe disease involving OM1 appeared unchanged compared to before, attempted balloon angioplasty was performed of second diagonal branch with suboptimal results June 09, 2024 The patient was seen and evaluated this morning. Unfortunately the kidney function is worse. He is still in failure now requiring BiPAP. The chest x-ray from yesterday showed finding consistent with failure. He continues to be on Lasix IV. Nephrology team is on the case. The physical examination is remarkable for regular rhythm wit diminished breathing sounds bilaterally and mild bilateral expiratory wheezing and mild bilateral lower extremities edema. Beside that he is hyperkalemic that is under treatment at this point. 06/10/2024 Patient examined this morning at the bedside. Patient currently reports shortness of breath. He remains on IV Lasix. He denies any chest pain or pressure. Creatinine is worsening today at 4.1. Patient states that he spoke with nephrology this morning and plan is to begin hemodialysis today. 06/11 Patient seen and examined Patient is preparing to have his second dialysis treatment this morning. He is on 100% BiPAP pulse ox 92%. Blood pressure 129/58, heart rate 70. No repeat blood work today. 06/12/2024 Patient is seen and examined at bedside this a.m. Patient is maintained on BiPAP support, saturating 92%. Hemodynamically stable. EKG shows sinus rhythm on telemetry. PHYSICAL EXAM: VITAL SIGNS: Reviewed. GENERAL: Well-developed in no acute distress. NECK: Supple. No JVD or thyromegaly LUNGS: Respirations even and unlabored. Lungs with expiratory wheezing noted HEART: Regular rate and rhythm. S1 and S2 heard. EXTREMITIES: Normal range of motion. No clubbing or cyanosis. Peripheral pulses intact. 1+ bilateral lower extremity edema ASSESSMENT: Shortness of breath Acute on chronic diastolic heart failure Acute kidney injury and chronic kidney disease, patient started HD on 06/10 History of coronary artery disease with PCI of the LAD and second diagonal with known severe disease involving the OM1 Diabetes Hypertension Dyslipidemia Dilated ascending aorta History of colectomy PLAN: Continue IV Lasix per nephrology. Patient is currently on IV Lasix 80 mg every 12 hours Continue other cardiac medications: Amlodipine 10 mg daily, aspirin 81 mg daily, atorvastatin 40 mg daily, Plavix 75 mg daily, hydralazine 25 mg 3 times daily, Imdur 60 mg daily, Toprol XL 25 mg daily, Ranexa 500 mg twice daily Patient has been started on metolazone 5 mg daily per nephrology Patient has been started on Ferrlecit daily infusion Daily weights, accurate intake and output, and monitoring of kidney function Further recommendations pending patient course Objective - Vital Signs Vital signs: Vital Signs Temp 97.8 F 06/12/24 08:00 Pulse 75 06/12/24 14:00 Resp 20 06/12/24 14:00 BP 127/55 06/12/24 14:00 Pulse Ox 96 06/12/24 14:00 FiO2 90 06/12/24 12:00 Intake & Output 06/11/24 06/12/24 06/12/24 18:59 06:59 18:59 Intake Total 400 280 40 Output Total 4575 245 100 Balance -4175 35 -60 Weight 108.227 kg 108.227 kg Intake: IV 280 40 Piperacillin-Tazobactam 3 100 .375 gm In Sodium Chloride 0.9% 100 ml @ 25 mls/hr IVPB Q12HR [facility] Rx #:[id number] Sodium Chloride 0.9% 1000 180 40 mL @ 10 mLs/hr Hemodialysis 400 Output: Urine 175 245 100 Hemodialysis 2400 Hemodialysis Net Amount 2000 Other: Voiding Method Indwelling Catheter Indwelling Catheter Indwelling Catheter # Bowel Movements 1 - Labs CBC & Chem 7: 06/12/24 06:00 06/12/24 06:00 Labs: Abnormal Lab Results - Last 24 Hours (Table) 06/11/24 06/11/24 06/12/24 Range/Units 20:23 22:33 00:59 WBC (3.8-10.6) k/uL RBC (4.30-5.90) m/uL Hgb (13.0-17.5) gm/dL Hct (39.0-53.0) % RDW (11.5-15.5) % Neutrophils # (1.3-7.7) k/uL Lymphocytes # (1.0-4.8) k/uL ABG pO2 (83-108) mmHg ABG HCO3 (21-25) mmol/L ABG Total CO2 (19-24) mmol/L ABG O2 Saturation (94-97) % Hemoglobin (13.0-17.5) gm/dL Sodium (137-145) mmol/L Chloride (98-107) mmol/L BUN (9-20) mg/dL Creatinine (0.66-1.25) mg/dL Glucose (74-99) mg/dL POC Glucose (mg/dL) 111 H 136 H 174 H (70-110) mg/dL Phosphorus (2.5-4.5) mg/dL 06/12/24 06/12/24 06/12/24 Range/Units 06:00 06:00 06:16 WBC 15.8 H (3.8-10.6) k/uL RBC 2.77 L (4.30-5.90) m/uL Hgb 8.4 L D (13.0-17.5) gm/dL Hct 26.9 L (39.0-53.0) % RDW 18.2 H (11.5-15.5) % Neutrophils # 14.9 H (1.3-7.7) k/uL Lymphocytes # 0.2 L (1.0-4.8) k/uL ABG pO2 (83-108) mmHg ABG HCO3 (21-25) mmol/L ABG Total CO2 (19-24) mmol/L ABG O2 Saturation (94-97) % Hemoglobin (13.0-17.5) gm/dL Sodium 135 L (137-145) mmol/L Chloride 94 L (98-107) mmol/L BUN 90 H (9-20) mg/dL Creatinine 3.51 H (0.66-1.25) mg/dL Glucose 165 H (74-99) mg/dL POC Glucose (mg/dL) 178 H (70-110) mg/dL Phosphorus 5.3 H (2.5-4.5) mg/dL 06/12/24 06/12/24 06/12/24 Range/Units 09:46 10:21 11:37 WBC (3.8-10.6) k/uL RBC (4.30-5.90) m/uL Hgb (13.0-17.5) gm/dL Hct (39.0-53.0) % RDW (11.5-15.5) % Neutrophils # (1.3-7.7) k/uL Lymphocytes # (1.0-4.8) k/uL ABG pO2 34 L* 60 L (83-108) mmHg ABG HCO3 28 H 27 H (21-25) mmol/L ABG Total CO2 29 H 28 H (19-24) mmol/L ABG O2 Saturation 60.7 L 90.9 L (94-97) % Hemoglobin 8.3 L 8.6 L (13.0-17.5) gm/dL Sodium (137-145) mmol/L Chloride (98-107) mmol/L BUN (9-20) mg/dL Creatinine (0.66-1.25) mg/dL Glucose (74-99) mg/dL POC Glucose (mg/dL) 224 H (70-110) mg/dL Phosphorus (2.5-4.5) mg/dL Microbiology - Last 24 Hours (Table) 06/06/24 14:05 Blood Culture - Final Blood
--- NOTE | 2024-06-12 15:03 | P.PN ---
Progress Note - Text Progress Note Date: 06/12/24 Chief Complaint: Short of breath Pleasant 73-year-old patient follows with Dr. Dennis. 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 Bales. April 26, [address] Bales: Following a non-ST relation PA: Patent stent to mid LAD. Late stent thrombosis of the second diagonal branch of the LAD. Severe disease involving the OM1 appears unchanged. Attempted balloon angioplasty performed to the second of diagonal branch with suboptimal results. Dose of Imdur was increased and Ranexa was added. Patient recently in the hospital from May 28 through May 31. Chronic headaches: MRI unremarkable. MR angio head and neck: MR angio head without contrast: No evidence of aneurysm or significant stenosis. Atrophic right A1 segment. origin of the right posterior cerebral artery.MRI of the brain nonspecific. Was seen by neurology Dr. Gay. Patient to follow-up outpatient Chronic right heel wound seen by Dr. Carpenter from vascular deep debridement was carried out. No need for antibiotics. Patient to follow-up with Dr. Jernigan at the wound center. Shortness of breath: Was seen by cardiology. Not for any further intervention. Patient doing well when discharged. Patient presented increased shortness of breath when at home. His pulse ox dropped out of the 80s. Increasing shortness of breath. Decreased appetite. No fever or chills. June 10: Using his BiPAP. Patient seen this morning. Later this afternoon. Right femoral vein dialysis catheter was placed by Dr. Carpenter from vascular for dialysis. Baseline some shortness of breath. Due for first dialysis today. Patient is right heel culture grew MRSA Proteus P Corynebacterium on May 29. Patient is on IV daptomycin and IV cefepime per ID. June 11: Patient seen this afternoon. On BiPAP. Getting hemodialysis. Remains on IV daptomycin IV Zosyn. Tired. Also getting IV iron. Patient really did not eat today. Because of BiPAP. Cut back Levemir to 26 units at night. DC scheduled NovoLog for now. June 12: Overflowing the ICU. Remains on BiPAP. 04/05/90%. at the bedside. Remains on IV daptomycin and IV Zosyn. For dialysis today. X-ray continues shows infiltrates. Significantly hypoxic. N.p.o. Social history: Non-smoking. No alcohol. On examination: VITAL SIGNS: 97.7, 76, 22, 126 x 53, on BiPAP FiO2 100% 04/05. GENERAL APPEARANCE: Reclining in bed, with the BiPAP HEENT: Normal external appearance of nose and ear. Oral cavity normal EYES: Pupils equal. Conjunctiva normal. NECK: JVD not raised. Mass not palpable. RESPIRATORY: Respiratory effort increased lungs decreased breath sounds CARDIOVASCULAR: First and second sounds normal. Minimal edema in the right leg ABDOMEN: Soft. Liver and spleen not palpable. No tenderness. No right upper quadrant tenderness. No mass palpable. Colostomy bag with liquid stool PSYCHIATRY: Tired Extremity: Has a wound on the right heel. More details in the chart INVESTIGATIONS, reviewed in the clinical context: June 11: Potassium 4.9 BUN 108 creatinine 4.1 June 10: White count 12.8 hemoglobin 7.9 platelets 335 sodium 135 potassium 5.2 BUN 118 creatinine 4.1 June 04: White count 10.2 hemoglobin 10.4 platelet 374 sodium 135 potassium 4.6 BUN 66 creatinine 2.71 troponin I less than 0.012 proBNP 2550 EKG tracing personally reviewed by -atrial fibrillation. Rate 68 Chest x-ray film personally reviewed by -pulhenry edema Recent labs May 30: Potassium 4.7 BUN 42.3 creatinine 2.3 2D echocardiogram: [May 290%. CT scan b Active Medications Acetaminophen (Acetaminophen Tab 325 Mg Tab) 650 mg PO Q6HR PRN PRN Reason: Mild Pain or Fever > 100.5 Acetaminophen/Butalbital/Caffeine (Butalb/Apap/Caff 50-325-40mg Tab) 1 each PO Q4H PRN PRN Reason: Migraine Headache Albuterol/Ipratropium (Ipratropium-Albuterol 3 Ml Neb) 3 ml INHALATION RT-QID [facility] Last Admin: 06/12/24 11:28 Dose: 3 ml Albuterol/Ipratropium (Ipratropium-Albuterol 3 Ml Neb) 3 ml INHALATION RT-QID PRN PRN Reason: Shortness Of Breath Or Wheezing Allopurinol (Allopurinol 100 Mg Tab) 100 mg PO DAILY [facility] Last Admin: 06/12/24 10:48 Dose: 100 mg Amlodipine Besylate (Amlodipine 10 Mg Tab) 10 mg PO DAILY [facility] Last Admin: 06/12/24 10:48 Dose: 10 mg Aspirin (Aspirin 81 Mg) 81 mg PO DAILY [facility] Last Admin: 06/12/24 10:48 Dose: 81 mg Atorvastatin Calcium (Atorvastatin 40 Mg Tab) 40 mg PO DAILY [facility] Last Admin: 06/12/24 10:48 Dose: 40 mg Budesonide (Budesonide 1 Mg/2 Ml Nebu) 1 mg INHALATION RT-BID [facility] Last Admin: 06/12/24 07:47 Dose: 1 mg Calcitriol (Calcitriol 0.25 Mcg Cap) 0.25 mcg PO Mo@0900 [facility] Last Admin: 06/10/24 10:33 Dose: 0.25 mcg Clopidogrel Bisulfate (Clopidogrel 75 Mg Tab) 75 mg PO DAILY [facility] Last Admin: 06/12/24 10:48 Dose: 75 mg Collagenase (Collagenase 250 Unit/Gm Ointment 30 Gm Tube) 1 applic TOPICAL DAILY [facility]; Protocol Last Admin: 06/12/24 10:43 Dose: 1 applic Darbepoetin Silverio (Darbepoetin Silverio 40 Mcg/0.4 Ml Syringe) 40 mcg SQ Q7D [facility] Last Admin: 06/12/24 12:47 Dose: 40 mcg Dextrose/Water (Dextrose 50% Syringe 50 Ml) 25 ml IVP PER PROTOCOL PRN; Protocol PRN Reason: Hypoglycemia Dextrose/Water (Dextrose 50% Syringe 50 Ml) 50 ml IVP PER PROTOCOL PRN; Protocol PRN Reason: Hypoglycemia Ergocalciferol (Ergocalciferol 1,250 Mcg (50,000 Iu) Capsule) 1,250 mcg PO Q14D [facility] Last Admin: 06/05/24 08:42 Dose: 1,250 mcg Escitalopram Oxalate (Escitalopram 10 Mg Tab) 10 mg PO DAILY [facility] Last Admin: 06/12/24 11:22 Dose: Not Given Furosemide (Furosemide 10 Mg/Ml 10 Ml Vial) 80 mg IV Q12H [facility] Last Admin: 06/12/24 07:01 Dose: 80 mg Gabapentin (Gabapentin 100 Mg Cap) 100 mg PO HS [facility] Last Admin: 06/11/24 22:19 Dose: Not Given Haloperidol Lactate (Haloperidol Lactate 5 Mg/Ml 1 Ml Vial) 5 mg IVP ONCE PRN PRN Reason: Agitation or Acute Psychosis Last Admin: 06/12/24 05:27 Dose: 5 mg Hydralazine HCl (Hydralazine Hcl 25 Mg Tab) 25 mg PO TID [facility] Last Admin: 06/12/24 10:48 Dose: 25 mg Daptomycin 350 mg/ Sodium (Chloride) 50 mls @ 100 mls/hr IVPB Q48H [facility]; Protocol Last Admin: 06/12/24 10:42 Dose: 100 mls/hr Piperacillin Sod/Tazobactam (Sod 3.375 gm/ Sodium Chloride) 100 mls @ 25 mls/hr IVPB Q12HR [facility]; Protocol Last Admin: 06/12/24 10:42 Dose: 25 mls/hr Insulin Aspart (Insulin Aspart (Novolog) 100 Unit/Ml Vial) 0 unit SQ ACHS [facility]; Protocol Last Admin: 06/12/24 12:47 Dose: 6 unit Insulin Detemir (Insulin Detemir (Levemir) 100 Unit/Ml Syr) 26 unit SQ HS [facility] Last Admin: 06/11/24 22:36 Dose: 26 unit Isosorbide Mononitrate (Isosorbide Mononitrate Er 60 Mg Tab.Er.24h) 60 mg PO DAILY [facility] Last Admin: 06/12/24 10:48 Dose: 60 mg Methylprednisolone Sodium Succinate (Methylprednisolone Sod Succi 125 Mg/2 Ml Vial) 60 mg IV Q6H [facility] Last Admin: 06/12/24 12:47 Dose: 60 mg Metoprolol Succinate (Metoprolol Succinate (Er) 25 Mg Tab.Er.24h) 25 mg PO DAILY [facility] Last Admin: 06/12/24 10:48 Dose: 25 mg Naloxone HCl (Naloxone 0.4 Mg/Ml 1 Ml Vial) 0.2 mg IV Q2M PRN PRN Reason: Opioid Reversal Collagenase 250 Unit /Gm Ointment 30 Gm Tube 1 each TOPICAL DAILY [facility]; Protocol Last Admin: 06/12/24 10:43 Dose: Not Given Pantoprazole Sodium (Pantoprazole 40 Mg Tablet) 40 mg PO DAILY [facility] Last Admin: 06/12/24 10:48 Dose: 40 mg Ranolazine (Ranolazine 500 Mg Tab.Er.12h) 500 mg PO Q12HR [facility] Last Admin: 06/12/24 11:23 Dose: Not Given Sodium Bicarbonate (Sodium Bicarbonate Tab 650 Mg Tab) 650 mg PO DAILY [facility] Last Admin: 06/12/24 10:48 Dose: 650 mg Tamsulosin HCl (Tamsulosin 0.4 Mg Cap.Er.24h) 0.4 mg PO -BRKFST [facility] Last Admin: 06/12/24 10:48 Dose: 0.4 mg Triamcinolone Acetonide (Triamcinolone Acet 0.5% Cream 15 Gm Tube) 1 applic TOPICAL BID PRN; Protocol PRN Reason: rash/dry skin rain without contrast: Chronic appearing periventricular white matter ischemic changes. Previous labs: Creatinine 1.6 on April 28/2024 Assessment and plan: -Acute on chronic congestive heart failure exacerbation, from diastolic dysfunction EF 55 to 60%.: Slow to respond IV Lasix 80 mg twice daily Started on dialysis June 10. -Acute hypoxic respiratory failure from pulmonary edema: Not improving On BiPAP 04/05/90% -COPD non-smoker DuoNeb 4 times daily. Nebulized Pulmicort -Chronic ostomy-functioning well -Chronic cephalgia. Patient stated headaches for greater than 6 months. Practically every day. Does not interfere with his eating. No exacerbating relieving factors: Possible tension headaches. CT scan of the brain shows some chronic changes MRI and MRI of the brain showing chronic changes. Seen by Dr. Gay from neurology a week ago. Further outpatient follow-up with neurology -Acute delirium/metabolic encephalopathy. Multifactorial: Slow to respond -Right heel wound. Dry. Follows with Dr. Jernigan at the wound center. Dr. Carpenter from vascular-. Deep debridement carried recently Wound culture [May 29] MRSA, Proteus IV cefepime, daptomycin per ID -Chronic parastomal hernia #Hypertension: Amlodipine. Toprol-XL. Hydralazine -Acute kidney injury, worsening, likely cardiorenal: Worsening Right femoral vein dialysis catheter placed by Dr. Carpenter on June 10. Hemodialysis started June 10 -CKD likely nephrosclerosis, diabetic nephropathy Creatinine was 1.6 on April 28, 2024. -CAD with stent Toprol-XL -Anemia in the setting of chronic kidney disease. Iron deficiency anemia. Receiving IV iron -Primary osteoarthritis Pain medication as needed -History of prostate cancer with radiation and chemo in 2020. #Diabetes mellitus type II, chronically on insulin: Tresiba. Follow Accu-Cheks #Hyperlipidemia: Lipitor #GERD: Protonix -Full code Dialysis today. Remains on BiPAP. Change Levemir to 30 units. Spoke to at the bedside. Past Medical History Past Medical History: Cancer, Chest Pain / Angina, Diabetes Mellitus, Eye Disorder, GERD/Reflux, Hyperlipidemia, Hypertension, Osteoarthritis (OA), Prostate Disorder, Renal Disease Additional Past Medical History / Comment(s): HX OF ULCERATIVE COLITIS, ileostomy PARASTOMAL HERNIA, PROSTATE CA WITH RADIATION AND CHEMO IN 2020, LOW KIDNEY FUNCTION,Covid Dec 2022, Influenza A Jun 2023, eye condition, unsure of name. History of Any Multi-Drug Resistant Organisms: MRSA Date of last positivie culture/infection: 05/24/24 MDRO Source:: rt heel, scalp Past Surgical History: Appendectomy, Bowel Resection, Heart Catheterization, Heart Catheterization With Stent Additional Past Surgical History / Comment(s): COLECTOMY, RECTUM REMOVED, ELLIOTT CATARACTS removed, ILEOSTOMY, HERNIA SURGERY. Past Anesthesia/Blood Transfusion Reactions: No Reported Reaction Additional Past Anesthesia/Blood Transfusion Reaction / Comment(s): no problems with prior blood transfusions. Date of Last Stent Placement:: 08/01/2023 Past Psychological History: No Psychological Hx Reported Smoking Status: Never smoker Past Alcohol Use History: None Reported Past Drug Use History: None Reported
[2024-06-12 16:12] LABS: Glucose,Whole Blood 160 mg/dL (70-110)
[2024-06-12] MEDS: HALOPERIDOL LACTATE 5 MG/ML 1 ML VIAL IVP STA (19:08)
[2024-06-12 20:23] LABS: Glucose,Whole Blood 214 mg/dL (70-110)
[2024-06-12] MEDS: INSULIN DETEMIR (LEVEMIR) 100 UNIT/ML SYR SQ SCH (21:56)
[2024-06-13] MEDS: HALOPERIDOL LACTATE 5 MG/ML 1 ML VIAL IVP PRN (03:01)
[2024-06-13 06:33] LABS: Glucose,Whole Blood 222 mg/dL (70-110)
[2024-06-13 06:50] LABS: Anisocytosis Slight; Basophils % (A) 0 %; Eosinophils # (A) 0.1 k/uL (0-0.7); Eosinophils % (A) 0 %; HCT 30.1 % (39.0-53.0); HGB 9.3 gm/dL (13.0-17.5); Hypochromasia Marked; Lymphocytes # (A) 0.3 k/uL (1.0-4.8); Lymphocytes % (A) 2 %; MCH 30.4 pg (25.0-35.0); MCHC 30.8 g/dL (31.0-37.0); MCV 98.9 fL (80.0-100.0); Macrocytosis Slight; Mean Platelet Volume 9.3; Monocytes # (A) 0.9 k/uL (0-1.0); Monocytes % (A) 5 %; Neutrophils # (A) 15.2 k/uL (1.3-7.7); Neutrophils % (A) 92 %; Platelet Count 273 k/uL (150-450); RBC 3.05 m/uL (4.30-5.90); RDW 17.4 % (11.5-15.5); WBC 16.5 k/uL (3.8-10.6)
[2024-06-13 07:08] LABS: African American GFR (CKD) 20 (>60 ml/min/1.73 sqM); Anion Gap 17 mmol/L; Blood Urea Nitrogen 78 mg/dL (9-20); Calcium 9.2 mg/dL (8.4-10.2); Carbon Dioxide 25 mmol/L (22-30); Chloride 93 mmol/L (98-107); Glucose 211 mg/dL (74-99); Non-African American GFR(CKD) 17 (>60 ml/min/1.73 sqM); Potassium 4.7 mmol/L (3.5-5.1); Sodium 135 mmol/L (137-145)
--- NOTE | 2024-06-13 07:56 | XR ---
EXAMINATION TYPE: XR chest 1V portable DATE OF EXAM: 06/13/2024 5:16 AM COMPARISON: Chest radiograph from one day prior. CLINICAL INDICATION: Male, 73 years old with history of bilateral infiltrates; [facility] TECHNIQUE: XR chest 1V portable Frontal view of the chest. FINDINGS: Lungs/Pleura: Similar multifocal airspace opacities. No evidence of pneumothorax or pleural effusion. Pulmonary vascularity: Unremarkable. Heart/mediastinum: Cardiomediastinal silhouette is unremarkable. Musculoskeletal: No acute osseous pathology. IMPRESSION: Similar multifocal airspace opacities correlate for a component of congestive heart failure with seru m BNP. [facility], , 06/13/2024 7:54 AM
--- NOTE | 2024-06-13 08:53 | P.PN ---
Subjective Progress Note Date: 06/13/24 HISTORY OF PRESENT ILLNESS: This is 73-year-old male patient of Dr. Bales with past medical history of c oronary artery disease status post PCI of the LAD and second diagonal branch, known severe disease involving the OM1, heart failure with preserved EF, diabetes, hypertension, dyslipidemia, chronic kidney disease, dilated ascending aorta, history of colectomy and overweight. We have been asked to evaluate the patient for CHF. Patient was recently hospitalized 05/28 - 05/31 and was treated for CHF and acute kidney injury. Patient states that when he went home he did not feel any better related to shortness of breath and when he had come in. He states he continues to have shortness of breath which is worsening and also has a little lightheadedness and dizziness. He complains of chest pain across the mid chest and also some left lower abdominal pain. He denies cough but he states in the morning he has sputum production. No significant lower extremity edema. He does have a chronic wound to the right foot with the boot in place. Blood pressure 121/61, heart rate 69, pulse ox 96% on 2 and half liters nasal cannula. Patient has been started on IV Lasix 80 mg every 12 hours. -EKG: Atrial fibrillation [address] changes -Chest x-ray: Correlate for volume overload -Laboratory studies: WBC 10.2, hemoglobin 10.4, platelet count 374. Sodium 135, potassium 4.6, BUN 66 and creatinine 2.71. Troponin negative x 1. proBNP 2550. -Home cardiac medications: Amlodipine 10 mg daily, aspirin 81 mg daily, atorvastatin 40 mg daily, Plavix 75 mg daily, Farxiga 10 mg daily, hydralazine 25 mg 3 times daily, Imdur 60 mg daily, Toprol XL 25 mg daily, Ranexa 500 mg every 12 hours, Demadex 40 mg daily. -Echocardiogram from 05/28/2024 revealed technical difficult study minimal mitral and tricuspid regurgitation. No pericardial effusion. -Cardiac catheterization history: April 26, 2024 revealing patent stent in the mid LAD. Late stent thrombosis of the second diagonal branch of the LAD, severe disease involving OM1 appeared unchanged compared to before, attempted balloon angioplasty was performed of second diagonal branch with suboptimal results June 09, 2024 The patient was seen and evaluated this morning. Unfortunately the kidney function is worse. He is still in failure now requiring BiPAP. The chest x-ray from yesterday showed finding consistent with failure. He continues to be on Lasix IV. Nephrology team is on the case. The physical examination is remarkable for regular rhythm wit diminished breathing sounds bilaterally and mild bilateral expiratory wheezing and mild bilateral lower extremities edema. Beside that he is hyperkalemic that is under treatment at this point. 06/10/2024 Patient examined this morning at the bedside. Patient currently reports shortness of breath. He remains on IV Lasix. He denies any chest pain or pressure. Creatinine is worsening today at 4.1. Patient states that he spoke with nephrology this morning and plan is to begin hemodialysis today. 06/11 Patient seen and examined Patient is preparing to have his second dialysis treatment this morning. He is on 100% BiPAP pulse ox 92%. Blood pressure 129/58, heart rate 70. No repeat blood work today. 06/12/2024 Patient is seen and examined at bedside this a.m. Patient is maintained on BiPAP support, saturating 92%. Hemodynamically stable. EKG shows sinus rhythm on telemetry. 06/13/2024, Seen and examined at bedside this a.m. Patient is BiPAP dependent and is not able to tolerate removal of BiPAP even for food and medications. BP 120/50, heart rate 80 bpm, sinus rhythm on telemetry, 95% saturation on BiPAP support Minimal urine output chest x-ray shows significant pulmonary edema suggestive of volume overload. Would recommend continuing fluid removal with hemodialysis and hold his antihypertensives before his hemodialysis so that more volume can be removed during dialysis session. PHYSICAL EXAM: VITAL SIGNS: Reviewed. GENERAL: Well-developed in no acute distress. NECK: Supple. No JVD or thyromegaly LUNGS: Respirations even and unlabored. Lungs with expiratory wheezing noted HEART: Regular rate and rhythm. S1 and S2 heard. EXTREMITIES: Normal range of motion. No clubbing or cyanosis. Peripheral pulses intact. 1+ bilateral lower extremity edema ASSESSMENT: Acute hypoxic respiratory failure BiPAP dependent Acute on chronic diastolic heart failure Oliguric ATN Acute kidney injury and chronic kidney disease, patient started HD on 06/10 History of coronary artery disease with PCI of the LAD and second diagonal with known severe disease involving the OM1 Nonhealing right heel wound with concerns of infection on antibiotics. Diabetes Hypertension Dyslipidemia Dilated ascending aorta History of colectomy PLAN: Continue IV Lasix per nephrology. Patient is currently on IV Lasix 80 mg every 12 hours Continue other cardiac medications: Amlodipine 10 mg daily, aspirin 81 mg daily, atorvastatin 40 mg daily, Plavix 75 mg daily, hydralazine 25 mg 3 times daily, Imdur 60 mg daily, Toprol XL 25 mg daily, Ranexa 500 mg twice daily Hold his antihypertensives before his hemodialysis session today so that more volume can be removed. He appears clinically volume overloaded and his chest x- ray shows significant pulmonary congestion. Would recommend hemodialysis for fluid removal. Urine output has been minimal. Prognosis is guarded. Objective - Vital Signs Vital signs: Vital Signs Temp 97.9 F 06/13/24 08:00 Pulse 76 06/13/24 08:00 Resp 18 06/13/24 08:00 BP 120/53 06/13/24 08:00 Pulse Ox 97 06/13/24 08:00 FiO2 90 06/13/24 08:00 Intake & Output 06/12/24 06/13/24 06/13/24 18:59 06:59 18:59 Intake Total 440 220 20 Output Total 4565 125 20 Balance -4125 95 0 Weight 108.227 kg 105.8 kg Intake: IV 40 220 20 Piperacillin-Tazobactam 3 100 .375 gm In Sodium Chloride 0.9% 100 ml @ 25 mls/hr IVPB Q12HR [facility] Rx #:[id number] Sodium Chloride 0.9% 1000 40 120 20 mL @ 10 mLs/hr Hemodialysis 400 Output: Urine 165 25 20 Stool 100 Hemodialysis 2400 Hemodialysis Net Amount 2000 Other: Voiding Method Indwelling Catheter Indwelling Catheter Indwelling Catheter - Labs CBC & Chem 7: 06/13/24 05:21 06/13/24 05:21 Labs: Abnormal Lab Results - Last 24 Hours (Table) 06/12/24 06/12/24 06/12/24 Range/Units 06:00 09:46 10:21 WBC (3.8-10.6) k/uL RBC (4.30-5.90) m/uL Hgb (13.0-17.5) gm/dL Hct (39.0-53.0) % MCHC (31.0-37.0) g/dL RDW (11.5-15.5) % ABG pO2 34 L* 60 L (83-108) mmHg ABG HCO3 28 H 27 H (21-25) mmol/L ABG Total CO2 29 H 28 H (19-24) mmol/L ABG O2 Saturation 60.7 L 90.9 L (94-97) % Hemoglobin 8.3 L 8.6 L (13.0-17.5) gm/dL Sodium (137-145) mmol/L Chloride (98-107) mmol/L BUN (9-20) mg/dL Creatinine (0.66-1.25) mg/dL Glucose (74-99) mg/dL POC Glucose (mg/dL) (70-110) mg/dL Procalcitonin 4.78 H (0.02-0.50) ng/mL 06/12/24 06/12/24 06/12/24 Range/Units 11:37 16:10 20:22 WBC (3.8-10.6) k/uL RBC (4.30-5.90) m/uL Hgb (13.0-17.5) gm/dL Hct (39.0-53.0) % MCHC (31.0-37.0) g/dL RDW (11.5-15.5) % ABG pO2 (83-108) mmHg ABG HCO3 (21-25) mmol/L ABG Total CO2 (19-24) mmol/L ABG O2 Saturation (94-97) % Hemoglobin (13.0-17.5) gm/dL Sodium (137-145) mmol/L Chloride (98-107) mmol/L BUN (9-20) mg/dL Creatinine (0.66-1.25) mg/dL Glucose (74-99) mg/dL POC Glucose (mg/dL) 224 H 160 H 214 H (70-110) mg/dL Procalcitonin (0.02-0.50) ng/mL 06/13/24 06/13/24 06/13/24 Range/Units 05:21 05:21 06:32 WBC 16.5 H (3.8-10.6) k/uL RBC 3.05 L (4.30-5.90) m/uL Hgb 9.3 L (13.0-17.5) gm/dL Hct 30.1 L (39.0-53.0) % MCHC 30.8 L (31.0-37.0) g/dL RDW 17.4 H (11.5-15.5) % ABG pO2 (83-108) mmHg ABG HCO3 (21-25) mmol/L ABG Total CO2 (19-24) mmol/L ABG O2 Saturation (94-97) % Hemoglobin (13.0-17.5) gm/dL Sodium 135 L (137-145) mmol/L Chloride 93 L (98-107) mmol/L BUN 78 H (9-20) mg/dL Creatinine 3.34 H (0.66-1.25) mg/dL Glucose 211 H (74-99) mg/dL POC Glucose (mg/dL) 222 H (70-110) mg/dL Procalcitonin (0.02-0.50) ng/mL
--- NOTE | 2024-06-13 09:24 | P.PN ---
Subjective Patient is seen in follow-up for acute kidney injury on chronic kidney disease. Started on hemodialysis June 10, 2024. Tolerated 2 L ultrafiltration yesterday. On BiPAP. Currently a poor historian. Vital signs are stable. General: No acute distress. HEENT: Head exam is unremarkable. On BiPAP. LUNGS: Scattered wheezing. HEART: Rate and Rhythm are regular. ABDOMEN: Nontender. Obese. EXTREMITITES: 1+ edema. Chronic changes noted. Objective - Vital Signs Vital signs: Vital Signs Temp 97.9 F 06/13/24 08:00 Pulse 78 06/13/24 09:00 Resp 15 06/13/24 09:00 BP 119/50 06/13/24 09:00 Pulse Ox 96 06/13/24 09:00 FiO2 90 06/13/24 08:00 Intake & Output 06/12/24 06/13/24 06/13/24 18:59 06:59 18:59 Intake Total 440 220 20 Output Total 4565 125 20 Balance -4125 95 0 Weight 108.227 kg 105.8 kg Intake: IV 40 220 20 Piperacillin-Tazobactam 3 100 .375 gm In Sodium Chloride 0.9% 100 ml @ 25 mls/hr IVPB Q12HR [facility] Rx #:[id number] Sodium Chloride 0.9% 1000 40 120 20 mL @ 10 mLs/hr Hemodialysis 400 Output: Urine 165 25 20 Stool 100 Hemodialysis 2400 Hemodialysis Net Amount 2000 Other: Voiding Method Indwelling Catheter Indwelling Catheter Indwelling Catheter - Labs CBC & Chem 7: 06/13/24 05:21 06/13/24 05:21 Labs: Abnormal Lab Results - Last 24 Hours (Table) 06/12/24 06/12/24 06/12/24 Range/Units 06:00 09:46 10:21 WBC (3.8-10.6) k/uL RBC (4.30-5.90) m/uL Hgb (13.0-17.5) gm/dL Hct (39.0-53.0) % MCHC (31.0-37.0) g/dL RDW (11.5-15.5) % ABG pO2 34 L* 60 L (83-108) mmHg ABG HCO3 28 H 27 H (21-25) mmol/L ABG Total CO2 29 H 28 H (19-24) mmol/L ABG O2 Saturation 60.7 L 90.9 L (94-97) % Hemoglobin 8.3 L 8.6 L (13.0-17.5) gm/dL Sodium (137-145) mmol/L Chloride (98-107) mmol/L BUN (9-20) mg/dL Creatinine (0.66-1.25) mg/dL Glucose (74-99) mg/dL POC Glucose (mg/dL) (70-110) mg/dL Procalcitonin 4.78 H (0.02-0.50) ng/mL 06/12/24 06/12/24 06/12/24 Range/Units 11:37 16:10 20:22 WBC (3.8-10.6) k/uL RBC (4.30-5.90) m/uL Hgb (13.0-17.5) gm/dL Hct (39.0-53.0) % MCHC (31.0-37.0) g/dL RDW (11.5-15.5) % ABG pO2 (83-108) mmHg ABG HCO3 (21-25) mmol/L ABG Total CO2 (19-24) mmol/L ABG O2 Saturation (94-97) % Hemoglobin (13.0-17.5) gm/dL Sodium (137-145) mmol/L Chloride (98-107) mmol/L BUN (9-20) mg/dL Creatinine (0.66-1.25) mg/dL Glucose (74-99) mg/dL POC Glucose (mg/dL) 224 H 160 H 214 H (70-110) mg/dL Procalcitonin (0.02-0.50) ng/mL 06/13/24 06/13/24 06/13/24 Range/Units 05:21 05:21 06:32 WBC 16.5 H (3.8-10.6) k/uL RBC 3.05 L (4.30-5.90) m/uL Hgb 9.3 L (13.0-17.5) gm/dL Hct 30.1 L (39.0-53.0) % MCHC 30.8 L (31.0-37.0) g/dL RDW 17.4 H (11.5-15.5) % ABG pO2 (83-108) mmHg ABG HCO3 (21-25) mmol/L ABG Total CO2 (19-24) mmol/L ABG O2 Saturation (94-97) % Hemoglobin (13.0-17.5) gm/dL Sodium 135 L (137-145) mmol/L Chloride 93 L (98-107) mmol/L BUN 78 H (9-20) mg/dL Creatinine 3.34 H (0.66-1.25) mg/dL Glucose 211 H (74-99) mg/dL POC Glucose (mg/dL) 222 H (70-110) mg/dL Procalcitonin (0.02-0.50) ng/mL Assessment and Plan Plan: Assessment: 1. Acute kidney injury secondary to ATN secondary to cardiorenal syndrome. UA benign. No hydronephrosis noted on imaging. Creatinine 4.1 dated June 10, 2024. Oliguric. Started on hemodialysis June 10, 2024. Has right femoral catheter. 2. Chronic kidney disease stage IV with baseline creatinine near 2. 3. Volume overload. 4. Coronary disease with cardiac stents. 5. Hypertension with chronic kidney disease. Stable. 6. Metabolic acidosis secondary to chronic kidney disease maintained on oral bicarb. 7. Diabetes mellitus. 8. Right foot ulcer status post debridement. On antibiotics. 9. 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 Phosphorus level 5.3 dated June 12, 2024. 10. Anemia of chronic kidney disease. Iron deficiency noted. Status post IV iron. On Aranesp. Plan: Continue with daily dialysis for now. Stop IV Lasix as patient remains oliguric. Avoid nephrotoxins. Continue to monitor renal function and urine output. Monitor for renal recovery. Wean FiO2.
[2024-06-13 11:27] LABS: Glucose,Whole Blood 249 mg/dL (70-110)
--- NOTE | 2024-06-13 11:42 | P.PN ---
Subjective Progress Note Date: 06/13/24 Patient is a 73-year-old male with past medical history significant for hypertension, hyperlipidemia, coronary artery disease with previous PCI/stenting, heart failure, chronic kidney disease, diabetes mellitus, chronic right heel wound, ulcerative colitis with previous colectomy and ileostomy. Of note, patient had a recent hospitalization late May and was just discharged 05/31/2024 for CHF exacerbation. Echocardiogram done during this hospitalization estimating a preserved left ventricular ejection fraction of 55 to 60%. Limited study, but no acute valvular abnormalities reported. Presented the emergency department on 06/04/2024 with a chief complaint of shortness of breath, mostly on exertion. Chest x-ray showing cardiomegaly, mild pulmonary vascular congestion, and a small pleural effusion on the left. NT proBNP elevated 2550. Currently receiving Lasix 80 mg twice daily. CBC: WBC count 10.2, hemoglobin 10.4, hematocrit 32.5, platelets 374. CMP: Sodium 135, potassium 4.6, chloride 101, serum bicarb 18, BUN 66, creatinine 2.71, glucose 139. Troponin is less than 0.012. Patient currently being evaluated on the general medical floor. Appears weak and deconditioned. He is resting in bed on 1 L/min nasal cannula. No respiratory distress noted. Complaining of a generalized headache, which he states is chronic. States that he has been short of breath on exertion for several months to almost 1 year. Particularly on exertion such as climbing stairs or walking to the bathroom. Denies history of COPD or asthma. Never tobacco smoker. Worked in an [employer] shop before he retired. Denies cough. Denies infectious-like symptoms. Current vital signs: Temperature 98 F, heart rate 78 bpm, blood pressure 145/54 mmHg, nontachypneic, SpO2 recorded at 91% on 1 L/min nasal cannula. The patient is seen today June 07, 2024 in follow-up on the regular medical floor. He is awake and alert in no acute distress. Sitting up at the bedside. Maintaining O2 saturations in the 90s on 3 L/min per nasal cannula. White count 9.8. Hemoglobin 8.9. Platelets 366. Sodium 140. Potassium 4.7. Bicarb 22. BUN 60. Creatinine 2.4. Glucose 97. He remains on DuoNeb and elations, Pulmicort inhalations. Lasix 80 mg IV every 12 hours. He is currently -1.1 L balance. Antibiotics in the form of cefepime and daptomycin for his diabetic ulcer of the right foot. X-ray revealed no osseous erosion or acute fracture. The patient is seen today June 08, 2024 in follow-up on the regular medical floor. He did have issues with worsening shortness of breath. He is currently on BiPAP 12/6 and 40% FiO2. White count 6.3. Hemoglobin 8.5. Platelets 357. Sodium 136. Potassium 5.8. Bicarb 21. BUN 64. Creatinine 2.4. Glucose 178. Chest x-ray continues to show evidence of congestive heart failure. He is currently on Lasix 80 mg IV every 12 hours. Continued on bronchodilators and steroids. Remains on antibiotics in the form of cefepime and daptomycin. The patient is seen today June 09, 2024 in follow-up on the regular medical floor. He is currently resting comfortably in bed. Awake and alert in no acute distress. Breathing easier today compared to yesterday. He is currently on BiPAP 12/6 and 40% FiO2. White count 10.1. Hemoglobin 8.0. Platelets 339. Sodium 136. Potassium 5.8. Bicarb 21. BUN 94. Creatinine 3.4. Glucose 234. He remains on DuoNeb and elations, Pulmicort inhalations, Solu-Medrol. Remains on IV diuretics. Remains on cefepime and daptomycin. Receiving Lokelma. The patient is seen today June 10, 2024 in follow-up on the regular medical floor. He is currently sitting up at the bedside. Awake and alert in no acute distress. He is requiring BiPAP support at 12/6 and 60% FiO2. Alternating with oxygen at 4 L/min per nasal cannula. He is continued on DuoNeb inhalations, Pulmicort inhalations, Solu-Medrol. He remains on antibiotics in the form of cefepime and daptomycin. Receiving iron supplement. Continued on IV diuretics. Continued on sodium bicarb tablets. White count 12.8. Hemoglobin 7.9. Platelets 335. Sodium 135. Potassium 5.2. Bicarb 23. BUN 118. Creatinine 4.1. Glucose 131. Plan is for placement of a hemodialysis catheter today and to receive hemodialysis today and tomorrow per nephrology. The patient is seen today June 12, 2024 in follow-up in the intensive care unit. He was transferred here last evening as his oxygen requirements increased. He is currently on BiPAP 12/6 and 90% FiO2. Arterial blood gases revealed a PaO2 of 60, pCO2 39 and a pH of 7.44. Chest x-ray continues to show diffuse bilateral airspace disease. Blood culture revealed no growth. White count 15.8. Hemoglobin 8.4. Platelets 257. Sodium 135. Potassium 4.4. Bicarb 23. BUN 90. Creatinine 3.51. Glucose 165. proBNP 7440. Procalcitonin pending. He is continued on daptomycin and Zosyn. Remains on Lasix 80 mg IV every 12 hours. Oertli in a -4 L balance. He did receive hemodialysis yesterday and again today 2 L removed each time. He is continued on DuoNeb and elations, Pulmicort inhalations. Solu-Medrol. The patient is seen today June 13, 2024 in follow-up in the intensive care unit. He remains mostly BiPAP dependent currently on 12/6 and 90% FiO2. No IV fluids. The plan is for hemodialysis again today which will be day #4 with approximately 2 L removed each time. Chest x-ray is showing evidence of acute respiratory distress syndrome. His PF ratio is 66 indicating severe ARDS. Blood culture revealed no growth. White count 16.5. Hemoglobin 9.3. Platelets 273. Sodium 135. Potassium 4.7. Bicarb 25. BUN 78. Creatinine 3.34. Glucose 211. Procalcitonin is elevated at 4.78. He remains on DuoNeb inhalations, Pulmicort inhalations, Solu-Medrol. Remains on daptomycin and Zosyn. Remains on Lasix 80 mg IV every 12 hours. Currently in a -4 L balance. Heparin for DVT prophylaxis. Protonix for GI prophylaxis. Objective - Vital Signs Vital signs: Vital Signs Temp 97.9 F 06/13/24 08:00 Pulse 91 06/13/24 10:00 Resp 40 H 06/13/24 10:00 BP 112/43 06/13/24 10:00 Pulse Ox 96 06/13/24 09:00 FiO2 90 06/13/24 08:00 Intake & Output 06/12/24 06/13/24 06/13/24 18:59 06:59 18:59 Intake Total 440 220 40 Output Total 4565 125 40 Balance -4125 95 0 Weight 108.227 kg 105.8 kg Intake: IV 40 220 40 Piperacillin-Tazobactam 3 100 .375 gm In Sodium Chloride 0.9% 100 ml @ 25 mls/hr IVPB Q12HR [facility] Rx #:[id number] Sodium Chloride 0.9% 1000 40 120 40 mL @ 10 mLs/hr Hemodialysis 400 Output: Urine 165 25 40 Stool 100 Hemodialysis 2400 Hemodialysis Net Amount 1999 Other: Voiding Method Indwelling Catheter Indwelling Catheter Indwelling Catheter - Exam GENERAL EXAM: Arousable 73-year-old obese male, resting in bed, on BiPAP 12/6 and 90% FiO2. HEAD: Normocephalic and atraumatic EYES: Normal reaction of pupils, equal size. NOSE: Clear with pink turbinates. THROAT: No erythema or exudates. NECK: No masses, no JVD. CHEST: No chest wall deformity. LUNGS: Equal air entry with diminished lung sounds throughout. Crackles in the bilateral bases. CVS: S1 and S2 normal with no audible murmur, regular rhythm. No extra heart sounds ABDOMEN: No hepatosplenomegaly, active bowel sounds, no guarding or rigidity. Functional ileostomy SPINE: No scoliosis or deformity SKIN: Generalized erythemic plaques involving upper extremities, chest, back CENTRAL NERVOUS SYSTEM: No focal deficits, tone is normal in all 4 extremities. EXTREMITIES: There is 1-2+ peripheral edema. Peripheral pulses are intact. Right foot is wrapped with Lloyd bandage. - Labs CBC & Chem 7: 06/13/24 05:21 06/13/24 05:21 Labs: Abnormal Lab Results - Last 24 Hours (Table) 06/12/24 06/12/24 06/12/24 Range/Units 06:00 11:37 16:10 WBC (3.8-10.6) k/uL RBC (4.30-5.90) m/uL Hgb (13.0-17.5) gm/dL Hct (39.0-53.0) % MCHC (31.0-37.0) g/dL RDW (11.5-15.5) % Sodium (137-145) mmol/L Chloride (98-107) mmol/L BUN (9-20) mg/dL Creatinine (0.66-1.25) mg/dL Glucose (74-99) mg/dL POC Glucose (mg/dL) 224 H 160 H (70-110) mg/dL Procalcitonin 4.78 H (0.02-0.50) ng/mL 06/12/24 06/13/24 06/13/24 Range/Units 20:22 05:21 05:21 WBC 16.5 H (3.8-10.6) k/uL RBC 3.05 L (4.30-5.90) m/uL Hgb 9.3 L (13.0-17.5) gm/dL Hct 30.1 L (39.0-53.0) % MCHC 30.8 L (31.0-37.0) g/dL RDW 17.4 H (11.5-15.5) % Sodium 135 L (137-145) mmol/L Chloride 93 L (98-107) mmol/L BUN 78 H (9-20) mg/dL Creatinine 3.34 H (0.66-1.25) mg/dL Glucose 211 H (74-99) mg/dL POC Glucose (mg/dL) 214 H (70-110) mg/dL Procalcitonin (0.02-0.50) ng/mL 06/13/24 Range/Units 06:32 WBC (3.8-10.6) k/uL RBC (4.30-5.90) m/uL Hgb (13.0-17.5) gm/dL Hct (39.0-53.0) % MCHC (31.0-37.0) g/dL RDW (11.5-15.5) % Sodium (137-145) mmol/L Chloride (98-107) mmol/L BUN (9-20) mg/dL Creatinine (0.66-1.25) mg/dL Glucose (74-99) mg/dL POC Glucose (mg/dL) 222 H (70-110) mg/dL Procalcitonin (0.02-0.50) ng/mL Assessment and Plan Assessment: Acute exacerbation of diastolic congestive heart failure Severe acute respiratory distress syndrome with a PF ratio of 66 Acute hypoxemic respiratory failure, secondary to above Acute on chronic shortness of breath Acute on chronic kidney disease now requiring renal replacement therapy that started June 10, 2024 Hyperkalemia, improved Acute on chronic anemia secondary to above, current hemoglobin 9.3 History of CAD with previous PCI Diabetes mellitus with hyperglycemia Hypertension History of hyperlipidemia Chronic cephalgia History of UC with previous colectomy and ileostomy History of prostate cancer status post chemoradiation Chronic right heel wound, status post debridement on 05/28/2024 Obesity, with a BMI of 38.8 kg/m Never tobacco smoker Plan: The patient was seen and evaluated Chest x-ray,labs and medications reviewed To receive hemodialysis again today Currently in a -4 L balance Continue BiPAP 04/05 and 90% Continue bronchodilators, steroids Continue daptomycin and Zosyn Continue IV diuretics Plan for DVT prophylaxis Protonix for GI prophylaxis Prognosis is guarded CODE STATUS to be addressed We will continue to follow I have personally seen and examined the patient, performed the documentation and the assessment and plan as written. Number of minutes spent on the visit: 20 Dictation was produced using [employer] dictation software. Please excuse any grammatical, word or spelling errors.
[2024-06-13] MEDS: ACETAMINOPHEN IV (For NPO) 1,000 MG in EMPTY BAG 1 BAG IVPB ONE (12:45)
--- NOTE | 2024-06-13 14:13 | P.PN ---
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 On today's evaluation that is 06/13/2024,the patient remains to be afebrile, patient is on BiPAP requiring 90% FiO2 patient is hemodynamically stable not requiring any pressor support no vomiting diarrhea and the change reported by the at the bedside has been concerned about his confusion. Patient white count is 16.5 creatinine 3.34 blood culture has been negative Objective - Vital Signs Vital signs: Vital Signs Temp 97.9 F 06/13/24 08:00 Pulse 88 06/13/24 14:00 Resp 18 06/13/24 14:00 BP 112/61 06/13/24 14:00 Pulse Ox 95 06/13/24 14:00 FiO2 90 06/13/24 12:50 Intake & Output 06/12/24 06/13/24 06/13/24 18:59 06:59 18:59 Intake Total 440 220 80 Output Total 4565 125 50 Balance -4125 95 30 Weight 108.227 kg 105.8 kg Intake: IV 40 220 80 Piperacillin-Tazobactam 3 100 .375 gm In Sodium Chloride 0.9% 100 ml @ 25 mls/hr IVPB Q12HR [facility] Rx #:[id number] Sodium Chloride 0.9% 1000 40 120 80 mL @ 10 mLs/hr Hemodialysis 400 Output: Urine 165 25 50 Stool 100 Hemodialysis 2400 Hemodialysis Net Amount 1999 Other: Voiding Method Indwelling Catheter Indwelling Catheter Indwelling Catheter - Exam GENERAL DESCRIPTION: An elderly male lying in bed in no distress RESPIRATORY SYSTEM: Unlabored breathing , decreased breath sounds at bases HEART: S1 S2 regular rate and rhythm , ABDOMEN: Soft , no tenderness EXTREMITIES: Right heel is currently dressed - Labs CBC & Chem 7: 06/13/24 05:21 06/13/24 05:21 Labs: Abnormal Lab Results - Last 24 Hours (Table) 06/12/24 06/12/24 06/12/24 Range/Units 06:00 16:10 20:22 WBC (3.8-10.6) k/uL RBC (4.30-5.90) m/uL Hgb (13.0-17.5) gm/dL Hct (39.0-53.0) % MCHC (31.0-37.0) g/dL RDW (11.5-15.5) % Neutrophils # (1.3-7.7) k/uL Lymphocytes # (1.0-4.8) k/uL Sodium (137-145) mmol/L Chloride (98-107) mmol/L BUN (9-20) mg/dL Creatinine (0.66-1.25) mg/dL Glucose (74-99) mg/dL POC Glucose (mg/dL) 160 H 214 H (70-110) mg/dL Procalcitonin 4.78 H (0.02-0.50) ng/mL 06/13/24 06/13/24 06/13/24 Range/Units 05:21 05:21 06:32 WBC 16.5 H (3.8-10.6) k/uL RBC 3.05 L (4.30-5.90) m/uL Hgb 9.3 L (13.0-17.5) gm/dL Hct 30.1 L (39.0-53.0) % MCHC 30.8 L (31.0-37.0) g/dL RDW 17.4 H (11.5-15.5) % Neutrophils # 15.2 H (1.3-7.7) k/uL Lymphocytes # 0.3 L (1.0-4.8) k/uL Sodium 135 L (137-145) mmol/L Chloride 93 L (98-107) mmol/L BUN 78 H (9-20) mg/dL Creatinine 3.34 H (0.66-1.25) mg/dL Glucose 211 H (74-99) mg/dL POC Glucose (mg/dL) 222 H (70-110) mg/dL Procalcitonin (0.02-0.50) ng/mL 06/13/24 Range/Units 11:26 WBC (3.8-10.6) k/uL RBC (4.30-5.90) m/uL Hgb (13.0-17.5) gm/dL Hct (39.0-53.0) % MCHC (31.0-37.0) g/dL RDW (11.5-15.5) % Neutrophils # (1.3-7.7) k/uL Lymphocytes # (1.0-4.8) k/uL Sodium (137-145) mmol/L Chloride (98-107) mmol/L BUN (9-20) mg/dL Creatinine (0.66-1.25) mg/dL Glucose (74-99) mg/dL POC Glucose (mg/dL) 249 H (70-110) mg/dL Procalcitonin (0.02-0.50) ng/mL Assessment and Plan (1) Diabetic infection of right foot Current Visit: Yes Status: Acute Code(s): E11.628 - TYPE 2 DIABETES MELLITUS WITH OTHER SKIN COMPLICATIONS; L08.9 - LOCAL INFECTION OF THE SKIN AND SUBCUTANEOUS TISSUE, UNSP SNOMED Code(s): 441802102 (2) MRSA (methicillin resistant staph aureus) culture positive Current Visit: Yes Status: Acute Code(s): Z22.322 - CARRIER OR SUSPECTED CARRIER OF METHICILLIN RESIS STAPH SNOMED Code(s): 961441174 (3) Diabetic ulcer of right foot Current Visit: No Status: Acute Code(s): E11.621 - TYPE 2 DIABETES MELLITUS WITH FOOT ULCER; L97.519 - NON-PRS CHRONIC ULCER OTH PRT RIGHT FOOT W UNSP SEVERITY SNOMED Code(s): 011406378 (4) Stage III pressure ulcer of right heel Current Visit: No Status: Acute Code(s): L89.613 - PRESSURE ULCER OF RIGHT HEEL, STAGE 3 SNOMED Code(s): 68516171786786 Plan: 1patient with a chronic nonhealing wound to the right heel which he has for couple of months the wound looks deep with a recent culture positive for Proteus and MRSA concerning for wound infection and question for possible deeper infection such as osteomyelitis as wound has been there for couple of months now 2-patient did have elevated creatinine would be high risk of nephrotoxicity from vancomycin which is typically used for MRSA infection 3- x-rays of the right heel with no evidence of any bony changes 4-patient has been evaluated by Dr. Carpenter and did have surgical debridement completed on 06/07/2024 5-patient remains to be afebrile white count slightly up that need to be mon itored closely for now continue with Zosyn and daptomycin at the bedside question answered Dictation was produced using [employer] dictation software. please excuse any grammatical, word or spelling errors. Time with Patient: Less than 30
[2024-06-13 16:04] LABS: Glucose,Whole Blood 166 mg/dL (70-110)
[2024-06-13] MEDS: HEPARIN SODIUM,PORCINE 5,000 UNIT/ML 1 ML VIAL SQ SCH (16:04)
--- NOTE | 2024-06-13 17:22 | P.PN ---
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 Bales. April 26, [address] Bales: Following a non-ST relation GA: Patent stent to mid LAD. Late stent thrombosis of the second diagonal branch of the LAD. Severe disease involving the OM1 appears unchanged. Attempted balloon angioplasty performed to the second of diagonal branch with suboptimal results. Dose of Imdur was increased and Ranexa was added. Patient recently in the hospital from May 28 through May 31. Chronic headaches: MRI unremarkable. MR angio head and neck: MR angio head without contrast: No evidence of aneurysm or significant stenosis. Atrophic right A1 segment. origin of the right posterior cerebral artery.MRI of the brain nonspecific. Was seen by neurology Dr. Gay. Patient to follow-up outpatient Chronic right heel wound seen by Dr. Carpenter from vascular deep debridement was carried out. No need for antibiotics. Patient to follow-up with Dr. Jernigan at the wound center. Shortness of breath: Was seen by cardiology. Not for any further intervention. Patient doing well when discharged. Patient presented increased shortness of breath when at home. His pulse ox dropped out of the 80s. Increasing shortness of breath. Decreased appetite. No fever or chills. June 10: Using his BiPAP. Patient seen this morning. Later this afternoon. Right femoral vein dialysis catheter was placed by Dr. Carpenter from vascular for dialysis. Baseline some shortness of breath. Due for first dialysis today. Patient is right heel culture grew MRSA Proteus P Corynebacterium on May 29. Patient is on IV daptomycin and IV cefepime per ID. June 11: Patient seen this afternoon. On BiPAP. Getting hemodialysis. Remains on IV daptomycin IV Zosyn. Tired. Also getting IV iron. Patient really did not eat today. Because of BiPAP. Cut back Levemir to 26 units at night. DC scheduled NovoLog for now. June 12: Overflowing the ICU. Remains on BiPAP. 04/05/90%. at the bedside. Remains on IV daptomycin and IV Zosyn. For dialysis today. X-ray continues shows infiltrates. Significantly hypoxic. N.p.o. June 13: ICU. Remains on BiPAP. 04/05/% moderate take anything by mouth. Spoke to the nurse have TPN lipids ordered. Remains on IV daptomycin IV Zosyn. Chest x-ray continues to show diffuse infiltrates. Continues to be followed by cardiology pulmonary ID nephrology. Active Medications Acetaminophen (Acetaminophen Tab 325 Mg Tab) 650 mg PO Q6HR PRN PRN Reason: Mild Pain or Fever > 100.5 Acetaminophen/Butalbital/Caffeine (Butalb/Apap/Caff 50-325-40mg Tab) 1 each PO Q4H PRN PRN Reason: Migraine Headache Albuterol/Ipratropium (Ipratropium-Albuterol 3 Ml Neb) 3 ml INHALATION RT-QID [facility] Last Admin: 06/13/24 16:42 Dose: 3 ml Albuterol/Ipratropium (Ipratropium-Albuterol 3 Ml Neb) 3 ml INHALATION RT-QID PRN PRN Reason: Shortness Of Breath Or Wheezing Allopurinol (Allopurinol 100 Mg Tab) 100 mg PO DAILY [facility] Last Admin: 06/13/24 08:12 Dose: Not Given Amlodipine Besylate (Amlodipine 10 Mg Tab) 10 mg PO DAILY [facility] Last Admin: 06/13/24 08:12 Dose: Not Given Aspirin (Aspirin 81 Mg) 81 mg PO DAILY [facility] Last Admin: 06/13/24 08:12 Dose: Not Given Atorvastatin Calcium (Atorvastatin 40 Mg Tab) 40 mg PO DAILY [facility] Last Admin: 06/13/24 08:12 Dose: Not Given Budesonide (Budesonide 1 Mg/2 Ml Nebu) 1 mg INHALATION RT-BID [facility] Last Admin: 06/13/24 07:45 Dose: 1 mg Calcitriol (Calcitriol 0.25 Mcg Cap) 0.25 mcg PO Mo@0900 [facility] Last Admin: 06/10/24 10:33 Dose: 0.25 mcg Clopidogrel Bisulfate (Clopidogrel 75 Mg Tab) 75 mg PO DAILY [facility] Last Admin: 06/13/24 08:12 Dose: Not Given Collagenase (Collagenase 250 Unit/Gm Ointment 30 Gm Tube) 1 applic TOPICAL DAILY [facility]; Protocol Last Admin: 06/13/24 08:18 Dose: 1 applic Darbepoetin Silverio (Darbepoetin Silverio 40 Mcg/0.4 Ml Syringe) 40 mcg SQ Q7D [facility] Last Admin: 06/12/24 12:47 Dose: 40 mcg Dextrose/Water (Dextrose 50% Syringe 50 Ml) 25 ml IVP PER PROTOCOL PRN; Protocol PRN Reason: Hypoglycemia Dextrose/Water (Dextrose 50% Syringe 50 Ml) 50 ml IVP PER PROTOCOL PRN; Protocol PRN Reason: Hypoglycemia Ergocalciferol (Ergocalciferol 1,250 Mcg (50,000 Iu) Capsule) 1,250 mcg PO Q14D [facility] Last Admin: 06/05/24 08:42 Dose: 1,250 mcg Escitalopram Oxalate (Escitalopram 10 Mg Tab) 10 mg PO DAILY [facility] Last Admin: 06/13/24 08:12 Dose: Not Given Furosemide (Furosemide 10 Mg/Ml 10 Ml Vial) 80 mg IV Q12H [facility] Last Admin: 06/13/24 06:35 Dose: 80 mg Gabapentin (Gabapentin 100 Mg Cap) 100 mg PO HS [facility] Last Admin: 06/12/24 22:14 Dose: Not Given Haloperidol Lactate (Haloperidol Lactate 5 Mg/Ml 1 Ml Vial) 5 mg IVP ONCE PRN PRN Reason: Agitation or Acute Psychosis Last Admin: 06/12/24 05:27 Dose: 5 mg Haloperidol Lactate (Haloperidol Lactate 5 Mg/Ml 1 Ml Vial) 5 mg IVP Q8HR PRN PRN Reason: Agitation or Acute Psychosis Last Admin: 06/13/24 03:01 Dose: 5 mg Heparin Sodium (Porcine) (Heparin Sodium,Porcine 5,000 Unit/Ml 1 Ml Vial) 5,000 unit SQ Q8HR [facility] Last Admin: 06/13/24 16:04 Dose: Not Given Hydralazine HCl (Hydralazine Hcl 25 Mg Tab) 25 mg PO TID [facility] Last Admin: 06/13/24 16:04 Dose: Not Given Daptomycin 350 mg/ Sodium (Chloride) 50 mls @ 100 mls/hr IVPB Q48H [facility]; Protocol Last Admin: 06/12/24 10:42 Dose: 100 mls/hr Piperacillin Sod/Tazobactam (Sod 3.375 gm/ Sodium Chloride) 100 mls @ 25 mls/hr IVPB Q12HR [facility]; Protocol Last Admin: 06/13/24 08:15 Dose: 25 mls/hr Insulin Aspart (Insulin Aspart (Novolog) 100 Unit/Ml Vial) 0 unit SQ ACHS [facility]; Protocol Last Admin: 06/13/24 12:46 Dose: 6 unit Insulin Detemir (Insulin Detemir (Levemir) 100 Unit/Ml Syr) 30 unit SQ HS [facility] Last Admin: 06/12/24 21:56 Dose: 30 unit Isosorbide Mononitrate (Isosorbide Mononitrate Er 60 Mg Tab.Er.24h) 60 mg PO DAILY [facility] Last Admin: 06/13/24 08:12 Dose: Not Given Methylprednisolone Sodium Succinate (Methylprednisolone Sod Succi 125 Mg/2 Ml Vial) 60 mg IV Q6H [facility] Last Admin: 06/13/24 12:45 Dose: 60 mg Metoprolol Succinate (Metoprolol Succinate (Er) 25 Mg Tab.Er.24h) 25 mg PO DAILY [facility] Last Admin: 06/13/24 08:13 Dose: Not Given Naloxone HCl (Naloxone 0.4 Mg/Ml 1 Ml Vial) 0.2 mg IV Q2M PRN PRN Reason: Opioid Reversal Collagenase 250 Unit /Gm Ointment 30 Gm Tube 1 each TOPICAL DAILY [facility]; Protocol Last Admin: 06/13/24 08:19 Dose: Not Given Pantoprazole Sodium (Pantoprazole 40 Mg Tablet) 40 mg PO DAILY [facility] Last Admin: 06/13/24 08:13 Dose: Not Given Ranolazine (Ranolazine 500 Mg Tab.Er.12h) 500 mg PO Q12HR [facility] Last Admin: 06/13/24 08:13 Dose: Not Given Sodium Bicarbonate (Sodium Bicarbonate Tab 650 Mg Tab) 650 mg PO DAILY [facility] Last Admin: 06/13/24 08:13 Dose: Not Given Tamsulosin HCl (Tamsulosin 0.4 Mg Cap.Er.24h) 0.4 mg PO PC-BRKFST [facility] Last Admin: 06/13/24 08:12 Dose: Not Given Triamcinolone Acetonide (Triamcinolone Acet 0.5% Cream 15 Gm Tube) 1 applic TOPICAL BID PRN; Protocol PRN Reason: rash/dry skin Social history: Non-smoking. No alcohol. On examination: VITAL SIGNS: 97.9, 89, more than 20, accessory muscles, 114 x 60, 95% on BiPAP GENERAL APPEARANCE: Reclining in bed, with the BiPAP HEENT: Normal external appearance of nose and ear. Oral cavity normal EYES: Pupils equal. Conjunctiva normal. NECK: JVD not raised. Mass not palpable. RESPIRATORY: Respiratory effort increased lungs decreased breath sounds CARDIOVASCULAR: First and second sounds normal. Minimal edema in the right leg ABDOMEN: Soft. Liver and spleen not palpable. No tenderness. No right upper quadrant tenderness. No mass palpable. Colostomy bag with liquid stool PSYCHIATRY: Tired Extremity: Has a wound on the right heel. More details in the chart INVESTIGATIONS, reviewed in the clinical context: June 13: White count 16.5 hemoglobin 9.3 platelets 273 sodium 135 potassium 4.7 BUN 38 creatinine 3.34 June 11: Potassium 4.9 BUN 108 creatinine 4.1 June 10: White count 12.8 hemoglobin 7.9 platelets 335 sodium 135 potassium 5.2 BUN 118 creatinine 4.1 June 04: White count 10.2 hemoglobin 10.4 platelet 374 sodium 135 potassium 4.6 BUN 66 creatinine 2.71 troponin I less than 0.012 proBNP 2550 EKG tracing personally reviewed by me-atrial fibrillation. Rate 68 Chest x-ray film personally reviewed by me-pulm edema Recent labs May 30: Potassium 4.7 BUN 42.3 creatinine 2.3 Assessment and plan: -Acute on chronic congestive heart failure exacerbation, from diastolic dysfunction EF 55 to 60%.: Slow to respond IV Lasix 80 mg twice daily Started on dialysis June 10. -Acute hypoxic respiratory failure from pulmonary edema: Not improving On BiPAP 04/05/90% -COPD non-smoker DuoNeb 4 times daily. Nebulized Pulmicort -Chronic ostomy-functioning well -Chronic cephalgia. Patient stated headaches for greater than 6 months. Practically every day. Does not interfere with his eating. No exacerbating r elieving factors: Possible tension headaches. CT scan of the brain shows some chronic changes MRI and MRI of the brain showing chronic changes. Seen by Dr. Gay from neurology a week ago. Further outpatient follow-up with neurology -Acute delirium/metabolic encephalopathy. Multifactorial: Slow to respond -Right heel wound. Dry. Follows with Dr. Jernigan at the wound center. Dr. Carpenter from vascular-. Deep debridement carried recently Wound culture [May 29] MRSA, Proteus IV cefepime, daptomycin per ID -Chronic parastomal hernia #Hypertension: Amlodipine. Toprol-XL. Hydralazine -Acute kidney injury, worsening, likely cardiorenal: Worsening Right femoral vein dialysis catheter placed by Dr. Carpenter on June 10. Hemodialysis started June 10 -CKD likely nephrosclerosis, diabetic nephropathy Creatinine was 1.6 on April 28, 2024. -CAD with stent Toprol-XL -Anemia in the setting of chronic kidney disease. Iron deficiency anemia. Given IV iron -Primary osteoarthritis Pain medication as needed -History of prostate cancer with radiation and chemo in 2020. #Diabetes mellitus type II, chronically on insulin: Tresiba. Follow Accu-Cheks #Hyperlipidemia: Lipitor #GERD: Protonix -Full code Spoke to nurse. For TPN lipids. Multiple consultants to follow. Continue antibiotics. Past Medical History Past Medical History: Cancer, Chest Pain / Angina, Diabetes Mellitus, Eye Disorder, GERD/Reflux, Hyperlipidemia, Hypertension, Osteoarthritis (OA), Prostate Disorder, Renal Disease Additional Past Medical History / Comment(s): HX OF ULCERATIVE COLITIS, ileostomy PARASTOMAL HERNIA, PROSTATE CA WITH RADIATION AND CHEMO IN 2020, LOW KIDNEY FUNCTION,Covid Dec 2022, Influenza A Jun 2023, eye condition, unsure of name. History of Any Multi-Drug Resistant Organisms: MRSA Date of last positivie culture/infection: 05/24/24 MDRO Source:: rt heel, scalp Past Surgical History: Appendectomy, Bowel Resection, Heart Catheterization, Heart Catheterization With Stent Additional Past Surgical History / Comment(s): COLECTOMY, RECTUM REMOVED, ELLIOTT CATARACTS removed, ILEOSTOMY, HERNIA SURGERY. Past Anesthesia/Blood Transfusion Reactions: No Reported Reaction Additional Past Anesthesia/Blood Transfusion Reaction / Comment(s): no problems with prior blood transfusions. Date of Last Stent Placement:: 08/01/2023 Past Psychological History: No Psychological Hx Reported Smoking Status: Never smoker Past Alcohol Use History: None Reported Past Drug Use History: None Reported
[2024-06-13 19:31] LABS: Glucose,Whole Blood 207 mg/dL (70-110)
[2024-06-13] MEDS: MORPHINE SULFATE 2 MG/ML SYRINGE IVP PRN (22:04)
[2024-06-13 23:49] LABS: Glucose,Whole Blood 223 mg/dL (70-110)
[2024-06-14] MEDS: INSULIN ASPART (NovoLOG) 100 UNIT/ML VIAL SQ SCH (00:19)
[2024-06-14 06:16] LABS: Glucose,Whole Blood 239 mg/dL (70-110)
[2024-06-14 06:38] LABS: Anisocytosis Slight; Basophils % (A) 0 %; Eosinophils % (A) 0 %; HCT 29.9 % (39.0-53.0); HGB 9.2 gm/dL (13.0-17.5); Hypochromasia Marked; Lymphocytes # (A) 0.2 k/uL (1.0-4.8); Lymphocytes % (A) 1 %; MCH 30.5 pg (25.0-35.0); MCHC 30.7 g/dL (31.0-37.0); MCV 99.2 fL (80.0-100.0); Macrocytosis Slight; Monocytes # (A) 0.7 k/uL (0-1.0); Monocytes % (A) 4 %; Neutrophils # (A) 15.2 k/uL (1.3-7.7); Neutrophils % (A) 94 %; Platelet Count 236 k/uL (150-450); RBC 3.01 m/uL (4.30-5.90); RDW 17.6 % (11.5-15.5); WBC 16.2 k/uL (3.8-10.6)
[2024-06-14 07:04] LABS: African American GFR (CKD) 20 (>60 ml/min/1.73 sqM); Anion Gap 15 mmol/L; Blood Urea Nitrogen 68 mg/dL (9-20); Calcium 8.8 mg/dL (8.4-10.2); Carbon Dioxide 27 mmol/L (22-30); Chloride 92 mmol/L (98-107); Glucose 210 mg/dL (74-99); Non-African American GFR(CKD) 18 (>60 ml/min/1.73 sqM); Potassium 4.3 mmol/L (3.5-5.1); Sodium 134 mmol/L (137-145)
--- NOTE | 2024-06-14 07:48 | XR ---
EXAMINATION TYPE: XR chest 1V portable DATE OF EXAM: 06/14/2024 4:58 AM COMPARISON: Chest radiograph from one day prior. CLINICAL INDICATION: Male, 73 years old with history of bilat effusions; [facility] TECHNIQUE: XR chest 1V portable Frontal view of the chest. FINDINGS: Lungs/Pleura: Similar multifocal airspace opacities. No evidence of pneumothorax or pleural effusion. Pulmonary vascularity: Unremarkable. Heart/mediastinum: Cardiomediastinal silhouette is unremarkable. Musculoskeletal: No acute osseous pathology. IMPRESSION: Similar multifocal airspace opacities correlate for a component of congestive heart failure with seru m BNP. [facility], , 06/14/2024 7:46 AM
--- NOTE | 2024-06-14 10:33 | P.PN ---
Subjective Patient is seen in follow-up for acute kidney injury on chronic kidney disease. Started on hemodialysis June 10, 2024. Tolerated 2 L ultrafiltration yesterday. On BiPAP. Currently a poor historian but more awake today. Vital signs are stable. General: No acute distress. HEENT: Head exam is unremarkable. On BiPAP. LUNGS: Scattered wheezing. HEART: Rate and Rhythm are regular. ABDOMEN: Nontender. Obese. EXTREMITITES: 1+ edema. Chronic changes noted. Objective - Vital Signs Vital signs: Vital Signs Temp 98.8 F 06/14/24 04:00 Pulse 89 06/14/24 08:08 Resp 20 06/14/24 07:00 BP 127/47 06/14/24 07:00 Pulse Ox 95 06/14/24 07:00 FiO2 60 06/14/24 07:49 Intake & Output 06/13/24 06/14/24 06/14/24 18:59 06:59 18:59 Intake Total 920 220 10 Output Total 8850 125 0 Balance -7930 95 10 Weight 102.8 kg Intake: IV 120 220 10 Piperacillin-Tazobactam 3 100 .375 gm In Sodium Chloride 0.9% 100 ml @ 25 mls/hr IVPB Q12HR [facility] Rx #:[id number] Sodium Chloride 0.9% 1000 120 120 10 mL @ 10 mLs/hr Hemodialysis 800 Output: Urine 50 75 0 Stool 50 Hemodialysis 4800 Hemodialysis Net Amount 4000 Other: Voiding Method Indwelling Catheter Indwelling Catheter - Labs CBC & Chem 7: 06/14/24 05:25 06/14/24 05:25 Labs: Abnormal Lab Results - Last 24 Hours (Table) 06/13/24 06/13/24 06/13/24 Range/Units 05:21 11:26 16:02 WBC (3.8-10.6) k/uL RBC (4.30-5.90) m/uL Hgb (13.0-17.5) gm/dL Hct (39.0-53.0) % MCHC (31.0-37.0) g/dL RDW (11.5-15.5) % Neutrophils # 15.2 H (1.3-7.7) k/uL Lymphocytes # 0.3 L (1.0-4.8) k/uL Sodium (137-145) mmol/L Chloride (98-107) mmol/L BUN (9-20) mg/dL Creatinine (0.66-1.25) mg/dL Glucose (74-99) mg/dL POC Glucose (mg/dL) 249 H 166 H (70-110) mg/dL 06/13/24 06/13/24 06/14/24 Range/Units 19:30 23:48 05:25 WBC 16.2 H (3.8-10.6) k/uL RBC 3.01 L (4.30-5.90) m/uL Hgb 9.2 L (13.0-17.5) gm/dL Hct 29.9 L (39.0-53.0) % MCHC 30.7 L (31.0-37.0) g/dL RDW 17.6 H (11.5-15.5) % Neutrophils # 15.2 H (1.3-7.7) k/uL Lymphocytes # 0.2 L (1.0-4.8) k/uL Sodium (137-145) mmol/L Chloride (98-107) mmol/L BUN (9-20) mg/dL Creatinine (0.66-1.25) mg/dL Glucose (74-99) mg/dL POC Glucose (mg/dL) 207 H 223 H (70-110) mg/dL 06/14/24 06/14/24 Range/Units 05:25 06:14 WBC (3.8-10.6) k/uL RBC (4.30-5.90) m/uL Hgb (13.0-17.5) gm/dL Hct (39.0-53.0) % MCHC (31.0-37.0) g/dL RDW (11.5-15.5) % Neutrophils # (1.3-7.7) k/uL Lymphocytes # (1.0-4.8) k/uL Sodium 134 L (137-145) mmol/L Chloride 92 L (98-107) mmol/L BUN 68 H (9-20) mg/dL Creatinine 3.26 H (0.66-1.25) mg/dL Glucose 210 H (74-99) mg/dL POC Glucose (mg/dL) 239 H (70-110) mg/dL Assessment and Plan Plan: Assessment: 1. Acute kidney injury secondary to ATN secondary to cardiorenal syndrome. UA benign. No hydronephrosis noted on imaging. Creatinine 4.1 dated June 10, 2024. Oliguric. Started on hemodialysis June 10, 2024. Has right femoral catheter. 2. Chronic kidney disease stage IV with baseline creatinine near 2. 3. Volume overload. Better with UF. 4. Coronary disease with cardiac stents. 5. Hypertension with chronic kidney disease. Stable. 6. Metabolic acidosis secondary to chronic kidney disease maintained on oral b icarb. 7. Diabetes mellitus. 8. Right foot ulcer status post debridement. On antibiotics. 9. 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 Phosphorus level 5.3 dated June 12, 2024. 10. Anemia of chronic kidney disease. Iron deficiency noted. Status post IV iron. On Aranesp. Plan: Continue with daily dialysis for now. Stopped IV Lasix as patient remains oliguric. Avoid nephrotoxins. Continue to monitor renal function and urine output. Monitor for renal recovery. Wean FiO2.
--- NOTE | 2024-06-14 11:16 | P.PN ---
Subjective Progress Note Date: 06/14/24 Principal diagnosis: Full-thickness diabetic ulcer right heel with localized cellulitis Patient is being seen today for consultation of a ulcer of his left heel. This started out as a small fissure to the wound that has progressed with recent degradation secondary to a MRSA infection. Patient was seen in the wound care center where a tissue culture was taken. Tissue culture so that the MRSA was resistant to oral antibiotics in increased sensitivity to several IV antibiotics. Therefore patient was given a prescription for NUZRYA until he could see Dr. Ontiveros as an urgent visit for proper selection of an IV antibiotic due to patient's systemic comorbidities such as congestive heart failure in renal failure. Patient did not obtain this medication and in the interim developed relapse of his congestive heart failure and has been hospitalized this week for the same. Patient is now on appropriate IV antibiotics per infectious disease Patient is being seen today in the ICU. Patient started on kidney dialysis on 06/10/2024 Objective - Vital Signs Vital signs: Vital Signs Temp 98.8 F 06/14/24 04:00 Pulse 89 06/14/24 08:08 Resp 20 06/14/24 07:00 BP 127/47 06/14/24 07:00 Pulse Ox 95 06/14/24 07:00 FiO2 60 06/14/24 07:49 Intake & Output 06/13/24 06/14/24 06/14/24 18:59 06:59 18:59 Intake Total 920 220 10 Output Total 8850 125 0 Balance -7930 95 10 Weight 102.8 kg Intake: IV 120 220 10 Piperacillin-Tazobactam 3 100 .375 gm In Sodium Chloride 0.9% 100 ml @ 25 mls/hr IVPB Q12HR [facility] Rx #:[id number] Sodium Chloride 0.9% 1000 120 120 10 mL @ 10 mLs/hr Hemodialysis 800 Output: Urine 50 75 0 Stool 50 Hemodialysis 4800 Hemodialysis Net Amount 4000 Other: Voiding Method Indwelling Catheter Indwelling Catheter - Exam Patient has a full-thickness wound on the lateral aspect posteriorly of the r ight heel. There is necrotic tissue throughout the wound with no undermining no tunneling there has been no increased in erythema edema there is no purulence drainage is minimal serous drainage there is chemo cauterized tissue within the wound. Neurovascular status is unchanged - Labs CBC & Chem 7: 06/14/24 05:25 06/14/24 05:25 Labs: Abnormal Lab Results - Last 24 Hours (Table) 06/13/24 06/13/24 06/13/24 Range/Units 05:21 11:26 16:02 WBC (3.8-10.6) k/uL RBC (4.30-5.90) m/uL Hgb (13.0-17.5) gm/dL Hct (39.0-53.0) % MCHC (31.0-37.0) g/dL RDW (11.5-15.5) % Neutrophils # 15.2 H (1.3-7.7) k/uL Lymphocytes # 0.3 L (1.0-4.8) k/uL Sodium (137-145) mmol/L Chloride (98-107) mmol/L BUN (9-20) mg/dL Creatinine (0.66-1.25) mg/dL Glucose (74-99) mg/dL POC Glucose (mg/dL) 249 H 166 H (70-110) mg/dL 06/13/24 06/13/24 06/14/24 Range/Units 19:30 23:48 05:25 WBC 16.2 H (3.8-10.6) k/uL RBC 3.01 L (4.30-5.90) m/uL Hgb 9.2 L (13.0-17.5) gm/dL Hct 29.9 L (39.0-53.0) % MCHC 30.7 L (31.0-37.0) g/dL RDW 17.6 H (11.5-15.5) % Neutrophils # 15.2 H (1.3-7.7) k/uL Lymphocytes # 0.2 L (1.0-4.8) k/uL Sodium (137-145) mmol/L Chloride (98-107) mmol/L BUN (9-20) mg/dL Creatinine (0.66-1.25) mg/dL Glucose (74-99) mg/dL POC Glucose (mg/dL) 207 H 223 H (70-110) mg/dL 06/14/24 06/14/24 Range/Units 05:25 06:14 WBC (3.8-10.6) k/uL RBC (4.30-5.90) m/uL Hgb (13.0-17.5) gm/dL Hct (39.0-53.0) % MCHC (31.0-37.0) g/dL RDW (11.5-15.5) % Neutrophils # (1.3-7.7) k/uL Lymphocytes # (1.0-4.8) k/uL Sodium 134 L (137-145) mmol/L Chloride 92 L (98-107) mmol/L BUN 68 H (9-20) mg/dL Creatinine 3.26 H (0.66-1.25) mg/dL Glucose 210 H (74-99) mg/dL POC Glucose (mg/dL) 239 H (70-110) mg/dL Assessment and Plan Assessment: Full-thickness ulceration right heel with localized cellulitis Plan: Exam reviewed patient's chart medical history. Discussed with patient findings and treatment. Will debride the wound today and continue with the Santyl ointment continue to offload. If patient is discharged patient is to be followed up in the wound care clinic otherwise we will follow as appropriate
--- NOTE | 2024-06-14 11:20 | P.OP ---
Date of Procedure: 06/14/24 Preoperative Diagnosis: Diabetic Walter grade 2 ulceration right heel Postoperative Diagnosis: Same Procedure(s) Performed: Debridement surgical open necrotic tissue right heel Anesthesia: none Multilith Operator #1: Sandeep Jernigan Multilith Operator #2: Stated None Estimated Blood Loss (ml): 3 Pathology: none sent Condition: stable Disposition: ICU Indications for Procedure: Diabetic ulcer with necrotic tissue to prevent infection and promote healing Operative Findings: Consistent with clinical findings Description of Procedure: Using a sterile curette we removed devitalized necrotic tissue marginally and centrally with surgical debridement in order to restore good granular bed throughout. After debridement we lavaged the area copiously with sterile saline in order to remove any necrotic particulate matter. We then applied Santyl and a dry sterile dressing patient tolerated procedure
[2024-06-14 12:18] LABS: Glucose,Whole Blood 167 mg/dL (70-110)
--- NOTE | 2024-06-14 12:57 | P.PN ---
Subjective Progress Note Date: 06/14/24 Patient is a 73-year-old male with past medical history significant for hypertension, hyperlipidemia, coronary artery disease with previous PCI/stenting, heart failure, chronic kidney disease, diabetes mellitus, chronic right heel wound, ulcerative colitis with previous colectomy and ileostomy. Of note, patient had a recent hospitalization late May and was just discharged 05/31/2024 for CHF exacerbation. Echocardiogram done during this hospitalization estimating a preserved left ventricular ejection fraction of 55 to 60%. Limited study, but no acute valvular abnormalities reported. Presented the emergency department on 06/04/2024 with a chief complaint of shortness of breath, mostly on exertion. Chest x-ray showing cardiomegaly, mild pulmonary vascular congestion, and a small pleural effusion on the left. NT proBNP elevated 2550. Currently receiving Lasix 80 mg twice daily. CBC: WBC count 10.2, hemoglobin 10.4, hematocrit 32.5, platelets 374. CMP: Sodium 135, potassium 4.6, chloride 101, serum bicarb 18, BUN 66, creatinine 2.71, glucose 139. Troponin is less than 0.012. Patient currently being evaluated on the general medical floor. Appears weak and deconditioned. He is resting in bed on 1 L/min nasal cannula. No respiratory distress noted. Complaining of a generalized headache, which he states is chronic. States that he has been short of breath on exertion for several months to almost 1 year. Particularly on exertion such as climbing stairs or walking to the bathroom. Denies history of COPD or asthma. Never tobacco smoker. Worked in an [employer] shop before he retired. Denies cough. Denies infectious-like symptoms. Current vital signs: Temperature 98 F, heart rate 78 bpm, blood pressure 145/54 mmHg, nontachypneic, SpO2 recorded at 91% on 1 L/min nasal cannula. The patient is seen today June 07, 2024 in follow-up on the regular medical floor. He is awake and alert in no acute distress. Sitting up at the bedside. Maintaining O2 saturations in the 90s on 3 L/min per nasal cannula. White count 9.8. Hemoglobin 8.9. Platelets 366. Sodium 140. Potassium 4.7. Bicarb 22. BUN 60. Creatinine 2.4. Glucose 97. He remains on DuoNeb and elations, Pulmicort inhalations. Lasix 80 mg IV every 12 hours. He is currently -1.1 L balance. Antibiotics in the form of cefepime and daptomycin for his diabetic ulcer of the right foot. X-ray revealed no osseous erosion or acute fracture. The patient is seen today June 08, 2024 in follow-up on the regular medical floor. He did have issues with worsening shortness of breath. He is currently on BiPAP 12/6 and 40% FiO2. White count 6.3. Hemoglobin 8.5. Platelets 357. Sodium 136. Potassium 5.8. Bicarb 21. BUN 64. Creatinine 2.4. Glucose 178. Chest x-ray continues to show evidence of congestive heart failure. He is currently on Lasix 80 mg IV every 12 hours. Continued on bronchodilators and steroids. Remains on antibiotics in the form of cefepime and daptomycin. The patient is seen today June 09, 2024 in follow-up on the regular medical floor. He is currently resting comfortably in bed. Awake and alert in no acute distress. Breathing easier today compared to yesterday. He is currently on BiPAP 12/6 and 40% FiO2. White count 10.1. Hemoglobin 8.0. Platelets 339. Sodium 136. Potassium 5.8. Bicarb 21. BUN 94. Creatinine 3.4. Glucose 234. He remains on DuoNeb and elations, Pulmicort inhalations, Solu-Medrol. Remains on IV diuretics. Remains on cefepime and daptomycin. Receiving Lokelma. The patient is seen today June 10, 2024 in follow-up on the regular medical floor. He is currently sitting up at the bedside. Awake and alert in no acute distress. He is requiring BiPAP support at 12/6 and 60% FiO2. Alternating with oxygen at 4 L/min per nasal cannula. He is continued on DuoNeb inhalations, Pulmicort inhalations, Solu-Medrol. He remains on antibiotics in the form of cefepime and daptomycin. Receiving iron supplement. Continued on IV diuretics. Continued on sodium bicarb tablets. White count 12.8. Hemoglobin 7.9. Platelets 335. Sodium 135. Potassium 5.2. Bicarb 23. BUN 118. Creatinine 4.1. Glucose 131. Plan is for placement of a hemodialysis catheter today and to receive hemodialysis today and tomorrow per nephrology. The patient is seen today June 12, 2024 in follow-up in the intensive care unit. He was transferred here last evening as his oxygen requirements increased. He is currently on BiPAP 12/6 and 90% FiO2. Arterial blood gases revealed a PaO2 of 60, pCO2 39 and a pH of 7.44. Chest x-ray continues to show diffuse bilateral airspace disease. Blood culture revealed no growth. White count 15.8. Hemoglobin 8.4. Platelets 257. Sodium 135. Potassium 4.4. Bicarb 23. BUN 90. Creatinine 3.51. Glucose 165. proBNP 7440. Procalcitonin pending. He is continued on daptomycin and Zosyn. Remains on Lasix 80 mg IV every 12 hours. Oertli in a -4 L balance. He did receive hemodialysis yesterday and again today 2 L removed each time. He is continued on DuoNeb and elations, Pulmicort inhalations. Solu-Medrol. The patient is seen today June 13, 2024 in follow-up in the intensive care unit. He remains mostly BiPAP dependent currently on 12/6 and 90% FiO2. No IV fluids. The plan is for hemodialysis again today which will be day #4 with approximately 2 L removed each time. Chest x-ray is showing evidence of acute respiratory distress syndrome. His PF ratio is 66 indicating severe ARDS. Blood culture revealed no growth. White count 16.5. Hemoglobin 9.3. Platelets 273. Sodium 135. Potassium 4.7. Bicarb 25. BUN 78. Creatinine 3.34. Glucose 211. Procalcitonin is elevated at 4.78. He remains on DuoNeb inhalations, Pulmicort inhalations, Solu-Medrol. Remains on daptomycin and Zosyn. Remains on Lasix 80 mg IV every 12 hours. Currently in a -4 L balance. Heparin for DVT prophylaxis. Protonix for GI prophylaxis. The patient is seen today June 14, 2024 in follow-up in the intensive care unit. He is awake and alert in no acute distress. He remains on BiPAP 12/6 and 60% FiO2. He is receiving hemodialysis again today with a goal of 2 to 2-1/2 L to be removed. His chest x-ray is showing improvement. Microbiology reveals no growth. He remains on Zosyn. Procalcitonin was 4.78. He has normal saline at KVO. White count 16.2. Hemoglobin 9.2. Platelets 236. Sodium 134. Potassium 4.3. Bicarb 27. BUN 68. Creatinine 3.26. Glucose 210. He remains on DuoNeb inhalations, Pulmicort inhalations, IV Solu-Medrol. He remains on daptomycin and Zosyn. He remains on Lasix 80 mg IV every 12 hours. Currently in a -7.8 L balance. Heparin for DVT prophylaxis. He did undergo debridement with surgical open necrotic tissue of the right heel for diabetic Walter grade 2 ulceration. Objective - Vital Signs Vital signs: Vital Signs Temp 98.8 F 06/14/24 04:00 Pulse 93 06/14/24 11:27 Resp 20 06/14/24 07:00 BP 127/47 06/14/24 07:00 Pulse Ox 95 06/14/24 07:00 FiO2 55 06/14/24 11:15 Intake & Output 06/13/24 06/14/24 06/14/24 18:59 06:59 18:59 Intake Total 920 220 10 Output Total 8850 125 0 Balance -7930 95 10 Weight 102.8 kg 102.8 kg Intake: IV 120 220 10 Piperacillin-Tazobactam 3 100 .375 gm In Sodium Chloride 0.9% 100 ml @ 25 mls/hr IVPB Q12HR [facility] Rx #:[id number] Sodium Chloride 0.9% 1000 120 120 10 mL @ 10 mLs/hr Hemodialysis 800 Output: Urine 50 75 0 Stool 50 Hemodialysis 4800 Hemodialysis Net Amount 4000 Other: Voiding Method Indwelling Catheter Indwelling Catheter - Exam GENERAL EXAM: Awake, alert 73-year-old obese male, resting in bed, on BiPAP 12/6 and 60% FiO2. HEAD: Normocephalic and atraumatic EYES: Normal reaction of pupils, equal size. NOSE: Clear with pink turbinates. THROAT: No erythema or exudates. NECK: No masses, no JVD. CHEST: No chest wall deformity. LUNGS: Equal air entry with diminished lung sounds throughout. Crackles in the bilateral bases. CVS: S1 and S2 normal with no audible murmur, regular rhythm. No extra heart sounds ABDOMEN: No hepatosplenomegaly, active bowel sounds, no guarding or rigidity. Functional ileostomy SPINE: No scoliosis or deformity SKIN: Generalized erythemic plaques involving upper extremities, chest, back CENTRAL NERVOUS SYSTEM: No focal deficits, tone is normal in all 4 extremities. EXTREMITIES: Right foot is wrapped with a bandage. There is 1-2+ peripheral edema. Peripheral pulses are intact. - Labs CBC & Chem 7: 06/14/24 05:25 06/14/24 05:25 Labs: Abnormal Lab Results - Last 24 Hours (Table) 06/13/24 06/13/24 06/13/24 Range/Units 16:02 19:30 23:48 WBC (3.8-10.6) k/uL RBC (4.30-5.90) m/uL Hgb (13.0-17.5) gm/dL Hct (39.0-53.0) % MCHC (31.0-37.0) g/dL RDW (11.5-15.5) % Neutrophils # (1.3-7.7) k/uL Lymphocytes # (1.0-4.8) k/uL Sodium (137-145) mmol/L Chloride (98-107) mmol/L BUN (9-20) mg/dL Creatinine (0.66-1.25) mg/dL Glucose (74-99) mg/dL POC Glucose (mg/dL) 166 H 207 H 223 H (70-110) mg/dL 06/14/24 06/14/24 06/14/24 Range/Units 05:25 05:25 06:14 WBC 16.2 H (3.8-10.6) k/uL RBC 3.01 L (4.30-5.90) m/uL Hgb 9.2 L (13.0-17.5) gm/dL Hct 29.9 L (39.0-53.0) % MCHC 30.7 L (31.0-37.0) g/dL RDW 17.6 H (11.5-15.5) % Neutrophils # 15.2 H (1.3-7.7) k/uL Lymphocytes # 0.2 L (1.0-4.8) k/uL Sodium 134 L (137-145) mmol/L Chloride 92 L (98-107) mmol/L BUN 68 H (9-20) mg/dL Creatinine 3.26 H (0.66-1.25) mg/dL Glucose 210 H (74-99) mg/dL POC Glucose (mg/dL) 239 H (70-110) mg/dL 06/14/24 Range/Units 12:16 WBC (3.8-10.6) k/uL RBC (4.30-5.90) m/uL Hgb (13.0-17.5) gm/dL Hct (39.0-53.0) % MCHC (31.0-37.0) g/dL RDW (11.5-15.5) % Neutrophils # (1.3-7.7) k/uL Lymphocytes # (1.0-4.8) k/uL Sodium (137-145) mmol/L Chloride (98-107) mmol/L BUN (9-20) mg/dL Creatinine (0.66-1.25) mg/dL Glucose (74-99) mg/dL POC Glucose (mg/dL) 167 H (70-110) mg/dL Assessment and Plan Assessment: Acute exacerbation of diastolic congestive heart failure Severe acute respiratory distress syndrome with a PF ratio of 66 requiring BiPAP support Acute hypoxemic respiratory failure, secondary to above Acute on chronic kidney disease now requiring renal replacement therapy that started June 10, 2024 Hyperkalemia, improved Acute on chronic anemia secondary to above, current hemoglobin 9.3 History of CAD with previous PCI Diabetes mellitus with hyperglycemia Hypertension History of hyperlipidemia Chronic cephalgia History of UC with previous colectomy and ileostomy History of prostate cancer status post chemoradiation Chronic right heel wound, status post debridement on 05/28/2024 again today June 14, 2024 Obesity, with a BMI of 38.8 kg/m Never tobacco smoker Plan: The patient was seen and evaluated Chest x-ray,labs and medications reviewed Chest x-ray showing improved aeration Received hemodialysis again today Currently in a -7.8 L balance Continue BiPAP 04/05 and 60% Continue bronchodilators, steroids Continue daptomycin and Zosyn Right heel ulcer debrided today Continue IV diuretics Heparin for DVT prophylaxis Protonix for GI prophylaxis Prognosis is guarded We will continue to follow I have personally seen and examined the patient, performed the documentation and the assessment and plan as written. Number of minutes spent on the visit: 20 Dictation was produced using [employer] dictation software. Please excuse any grammatical, word or spelling errors.
--- NOTE | 2024-06-14 14:53 | P.PN ---
Subjective Progress Note Date: 06/14/24 Principal diagnosis: Reason for follow-up is right heel diabetic foot ulcer with MRSA infection Patient is a 73-year-old male with a past medical history significant for diabetes mellitus hypertension hyperlipidemia osteomyelitis patient has been dealing with a chronic nonhealing wound to the right heel area for months now and is being treated in outpatient setting by Dr. Jernigan his forestry contractor with recent outpatient culture positive for MRSA and is Proteus. On today's evaluation that is 06/14/2024, the patient continues to be afebrile, the patient remains to be on BiPAP FiO2 is currently 55% patient is slightly more awake alert denies any chest pain or worsening cough no vomiting or diarrhea reported by the nursing staff. Patient white count is 16.2 creatinine 3.26 blood culture negative Objective - Vital Signs Vital signs: Vital Signs Temp 98.3 F 06/14/24 12:00 Pulse 92 06/14/24 14:00 Resp 17 06/14/24 14:00 BP 116/55 06/14/24 14:00 Pulse Ox 96 06/14/24 14:00 FiO2 55 06/14/24 12:00 Intake & Output 06/13/24 06/14/24 06/14/24 18:59 06:59 18:59 Intake Total 920 220 170 Output Total 8850 125 15 Balance -7930 95 155 Weight 102.8 kg 102.8 kg Intake: IV 120 220 70 Piperacillin-Tazobactam 3 100 .375 gm In Sodium Chloride 0.9% 100 ml @ 25 mls/hr IVPB Q12HR [facility] Rx #:[id number] Sodium Chloride 0.9% 1000 120 120 70 mL @ 10 mLs/hr Blood Product 100 Hemodialysis 800 Output: Urine 50 75 15 Stool 50 Hemodialysis 4800 Hemodialysis Net Amount 4000 Other: Voiding Method Indwelling Catheter Indwelling Catheter - Exam GENERAL DESCRIPTION: An elderly male lying in bed in no distress RESPIRATORY SYSTEM: Unlabored breathing , decreased breath sounds at bases HEART: S1 S2 regular rate and rhythm , ABDOMEN: Soft , no tenderness EXTREMITIES: Right heel is currently dressed - Labs CBC & Chem 7: 06/14/24 05:25 06/14/24 05:25 Labs: Abnormal Lab Results - Last 24 Hours (Table) 06/13/24 06/13/24 06/13/24 Range/Units 16:02 19:30 23:48 WBC (3.8-10.6) k/uL RBC (4.30-5.90) m/uL Hgb (13.0-17.5) gm/dL Hct (39.0-53.0) % MCHC (31.0-37.0) g/dL RDW (11.5-15.5) % Neutrophils # (1.3-7.7) k/uL Lymphocytes # (1.0-4.8) k/uL Sodium (137-145) mmol/L Chloride (98-107) mmol/L BUN (9-20) mg/dL Creatinine (0.66-1.25) mg/dL Glucose (74-99) mg/dL POC Glucose (mg/dL) 166 H 207 H 223 H (70-110) mg/dL 06/14/24 06/14/24 06/14/24 Range/Units 05:25 05:25 06:14 WBC 16.2 H (3.8-10.6) k/uL RBC 3.01 L (4.30-5.90) m/uL Hgb 9.2 L (13.0-17.5) gm/dL Hct 29.9 L (39.0-53.0) % MCHC 30.7 L (31.0-37.0) g/dL RDW 17.6 H (11.5-15.5) % Neutrophils # 15.2 H (1.3-7.7) k/uL Lymphocytes # 0.2 L (1.0-4.8) k/uL Sodium 134 L (137-145) mmol/L Chloride 92 L (98-107) mmol/L BUN 68 H (9-20) mg/dL Creatinine 3.26 H (0.66-1.25) mg/dL Glucose 210 H (74-99) mg/dL POC Glucose (mg/dL) 239 H (70-110) mg/dL 06/14/24 Range/Units 12:16 WBC (3.8-10.6) k/uL RBC (4.30-5.90) m/uL Hgb (13.0-17.5) gm/dL Hct (39.0-53.0) % MCHC (31.0-37.0) g/dL RDW (11.5-15.5) % Neutrophils # (1.3-7.7) k/uL Lymphocytes # (1.0-4.8) k/uL Sodium (137-145) mmol/L Chloride (98-107) mmol/L BUN (9-20) mg/dL Creatinine (0.66-1.25) mg/dL Glucose (74-99) mg/dL POC Glucose (mg/dL) 167 H (70-110) mg/dL Assessment and Plan (1) Diabetic infection of right foot Current Visit: Yes Status: Acute Code(s): E11.628 - TYPE 2 DIABETES MELLITUS WITH OTHER SKIN COMPLICATIONS; L08.9 - LOCAL INFECTION OF THE SKIN AND GORDILLO BCUTANEOUS TISSUE, UNSP SNOMED Code(s): 008718170 (2) MRSA (methicillin resistant staph aureus) culture positive Current Visit: Yes Status: Acute Code(s): Z22.322 - CARRIER OR SUSPECTED CARRIER OF METHICILLIN RESIS STAPH SNOMED Code(s): 943047388 (3) Diabetic ulcer of right foot Current Visit: No Status: Acute Code(s): E11.621 - TYPE 2 DIABETES MELLITUS WITH FOOT ULCER; L97.519 - NON-PRS CHRONIC ULCER OTH PRT RIGHT FOOT W UNSP SEVERITY SNOMED Code(s): 767547910 (4) Stage III pressure ulcer of right heel Current Visit: No Status: Acute Code(s): L89.613 - PRESSURE ULCER OF RIGHT HEEL, STAGE 3 SNOMED Code(s): 08641740325083 Plan: 1patient with a chronic nonhealing wound to the right heel which he has for couple of months the wound looks deep with a recent culture positive for Proteus and MRSA concerning for wound infection and question for possible deeper infe ction such as osteomyelitis as wound has been there for couple of months now 2- x-rays of the right heel with no evidence of any bony changes 3-patient has been evaluated by Dr. Carpenter and did have surgical debridement completed on 06/07/2024 and did have a further debridement at the bedside by his forestry contractor on 06/14/2024 as reported by the nursing staff 4-patient currently being treated with Zosyn and daptomycin and will monitor clinical course closely Dictation was produced using [employer] software. please excuse any grammatical, word or spelling errors. Time with Patient: Less than 30
--- NOTE | 2024-06-14 16:31 | P.PN ---
Subjective Progress Note Date: 06/14/24 HISTORY OF PRESENT ILLNESS: This is 73-year-old male patient of Dr. Bales with past medical history of co ronary artery disease status post PCI of the LAD and second diagonal branch, known severe disease involving the OM1, heart failure with preserved EF, diabetes, hypertension, dyslipidemia, chronic kidney disease, dilated ascending aorta, history of colectomy and overweight. We have been asked to evaluate the patient for CHF. Patient was recently hospitalized 05/28 - 05/31 and was treated for CHF and acute kidney injury. Patient states that when he went home he did not feel any better related to shortness of breath and when he had come in. He states he continues to have shortness of breath which is worsening and also has a little lightheadedness and dizziness. He complains of chest pain across the mid chest and also some left lower abdominal pain. He denies cough but he states in the morning he has sputum production. No significant lower extremity edema. He does have a chronic wound to the right foot with the boot in place. Blood pressure 121/61, heart rate 69, pulse ox 96% on 2 and half liters nasal cannula. Patient has been started on IV Lasix 80 mg every 12 hours. -EKG: Atrial fibrillation [address] changes -Chest x-ray: Correlate for volume overload -Laboratory studies: WBC 10.2, hemoglobin 10.4, platelet count 374. Sodium 135, potassium 4.6, BUN 66 and creatinine 2.71. Troponin negative x 1. proBNP 2550. -Home cardiac medications: Amlodipine 10 mg daily, aspirin 81 mg daily, atorvastatin 40 mg daily, Plavix 75 mg daily, Farxiga 10 mg daily, hydralazine 25 mg 3 times daily, Imdur 60 mg daily, Toprol XL 25 mg daily, Ranexa 500 mg every 12 hours, Demadex 40 mg daily. -Echocardiogram from 05/28/2024 revealed technical difficult study minimal mitral and tricuspid regurgitation. No pericardial effusion. -Cardiac catheterization history: April 26, 2024 revealing patent stent in the mid LAD. Late stent thrombosis of the second diagonal branch of the LAD, severe disease involving OM1 appeared unchanged compared to before, attempted balloon angioplasty was performed of second diagonal branch with suboptimal results June 09, 2024 The patient was seen and evaluated this morning. Unfortunately the kidney function is worse. He is still in failure now requiring BiPAP. The chest x-ray from yesterday showed finding consistent with failure. He continues to be on Lasix IV. Nephrology team is on the case. The physical examination is remarkable for regular rhythm wit diminished breathing sounds bilaterally and mild bilateral expiratory wheezing and mild bilateral lower extremities edema. Beside that he is hyperkalemic that is under treatment at this point. 06/10/2024 Patient examined this morning at the bedside. Patient currently reports shortness of breath. He remains on IV Lasix. He denies any chest pain or pressure. Creatinine is worsening today at 4.1. Patient states that he spoke with nephrology this morning and plan is to begin hemodialysis today. 06/11 Patient seen and examined Patient is preparing to have his second dialysis treatment this morning. He is on 100% BiPAP pulse ox 92%. Blood pressure 129/58, heart rate 70. No repeat blood work today. 06/12/2024 Patient is seen and examined at bedside this a.m. Patient is maintained on BiPAP support, saturating 92%. Hemodynamically stable. EKG shows sinus rhythm on telemetry. 06/13/2024, Seen and examined at bedside this a.m. Patient is BiPAP dependent and is not able to tolerate removal of BiPAP even for food and medications. BP 120/50, heart rate 80 bpm, sinus rhythm on telemetry, 95% saturation on BiPAP support Minimal urine output chest x-ray shows significant pulmonary edema suggestive of volume overload. Would recommend continuing fluid removal with hemodialysis and hold his antihypertensives before his hemodialysis so that more volume can be removed during dialysis session. 06/14/24 Patient seen and examined epithelization. Patient is getting hemodialysis, fluid status appears to be improved. Still on continuous BiPAP support. PHYSICAL EXAM: VITAL SIGNS: Reviewed. GENERAL: Well-developed in no acute distress. NECK: Supple. No JVD or thyromegaly LUNGS: Respirations even and unlabored. Lungs with expiratory wheezing noted HEART: Regular rate and rhythm. S1 and S2 heard. EXTREMITIES: Normal range of motion. No clubbing or cyanosis. Peripheral pulses intact. 1+ bilateral lower extremity edema ASSESSMENT: Acute hypoxic respiratory failure BiPAP dependent Acute on chronic diastolic heart failure Oliguric ATN Acute kidney injury and chronic kidney disease, patient started HD on 06/10 History of coronary artery disease with PCI of the LAD and second diagonal with known severe disease involving the OM1 Nonhealing right heel wound with concerns of infection on antibiotics. Diabetes Hypertension Dyslipidemia Dilated ascending aorta History of colectomy PLAN: Continue IV Lasix per nephrology. Patient is currently on IV Lasix 80 mg every 12 hours Continue other cardiac medications: Amlodipine 10 mg daily, aspirin 81 mg daily, atorvastatin 40 mg daily, Plavix 75 mg daily, hydralazine 25 mg 3 times daily, Imdur 60 mg daily, Toprol XL 25 mg daily, Ranexa 500 mg twice daily Hold his antihypertensives before his hemodialysis session today so that more volume can be removed. He appears clinically volume overloaded and his chest x- ray shows significant pulmonary congestion. Would recommend hemodialysis for fluid removal. Urine output has been minimal. Prognosis is guarded. Objective - Vital Signs Vital signs: Vital Signs Temp 97.9 F 06/14/24 16:00 Pulse 86 06/14/24 16:00 Resp 12 06/14/24 16:00 BP 125/57 06/14/24 16:00 Pulse Ox 98 06/14/24 16:00 FiO2 55 06/14/24 16:00 Intake & Output 06/13/24 06/14/24 06/14/24 18:59 06:59 18:59 Intake Total 920 220 940 Output Total 8850 125 5520 Balance -7930 95 -4580 Weight 102.8 kg 102.8 kg Intake: IV 120 220 190 Piperacillin-Tazobactam 3 100 100 .375 gm In Sodium Chloride 0.9% 100 ml @ 25 mls/hr IVPB Q12HR [facility] Rx #:[id number] Sodium Chloride 0.9% 1000 120 120 90 mL @ 10 mLs/hr Intake, IV Titration 100 Amount DAPTOmycin 350 mg In 100 Sodium Chloride 0.9% 50 ml @ 100 mls/hr IVPB Q48H [facility] Rx#:[id number] Blood Product 150 Hemodialysis 800 500 Output: Urine 50 75 20 Stool 50 Hemodialysis 4800 3000 Hemodialysis Net Amount 4000 2500 Other: Voiding Method Indwelling Catheter Indwelling Catheter Indwelling Catheter - Labs CBC & Chem 7: 06/14/24 05:25 06/14/24 05:25 Labs: Abnormal Lab Results - Last 24 Hours (Table) 06/13/24 06/13/24 06/14/24 Range/Units 19:30 23:48 05:25 WBC 16.2 H (3.8-10.6) k/uL RBC 3.01 L (4.30-5.90) m/uL Hgb 9.2 L (13.0-17.5) gm/dL Hct 29.9 L (39.0-53.0) % MCHC 30.7 L (31.0-37.0) g/dL RDW 17.6 H (11.5-15.5) % Neutrophils # 15.2 H (1.3-7.7) k/uL Lymphocytes # 0.2 L (1.0-4.8) k/uL Sodium (137-145) mmol/L Chloride (98-107) mmol/L BUN (9-20) mg/dL Creatinine (0.66-1.25) mg/dL Glucose (74-99) mg/dL POC Glucose (mg/dL) 207 H 223 H (70-110) mg/dL 06/14/24 06/14/24 06/14/24 Range/Units 05:25 06:14 12:16 WBC (3.8-10.6) k/uL RBC (4.30-5.90) m/uL Hgb (13.0-17.5) gm/dL Hct (39.0-53.0) % MCHC (31.0-37.0) g/dL RDW (11.5-15.5) % Neutrophils # (1.3-7.7) k/uL Lymphocytes # (1.0-4.8) k/uL Sodium 134 L (137-145) mmol/L Chloride 92 L (98-107) mmol/L BUN 68 H (9-20) mg/dL Creatinine 3.26 H (0.66-1.25) mg/dL Glucose 210 H (74-99) mg/dL POC Glucose (mg/dL) 239 H 167 H (70-110) mg/dL
--- NOTE | 2024-06-14 17:33 | CDI ---
Documentation Clarification Form Date: 06/14/2024 05:29:48 PM From: Robina Vann RN, CCDS Phone: [phone] Admit Date: 06/04/2024 06:28:00 PM Patient Name: Mike Vidal Visit Number: [id number] Discharge Date: ATTENTION: The Clinical Documentation Specialists (CDI) and [facility] Coding Staff appreciate your assistance in clarifying documentation. Please respond to the clarification below the line at the bottom and electronically sign. The CDI & [facility] Coding staff will review the response and follow-up if needed. Please note: Queries are made part of the Legal Health Record. If you have any questions, please contact the author of this message via ITS. Doctor. Sandeep Jernigan A debridement is documented on 06/14/24 unfortunately, some required elements have not been documented. Additional clarification regarding the procedure is requested. History/Risk Factors: Diabetic Walter grade 2 ulceration right heel, Diabetes Mellitus, Hyperlipidemia, Hypertension Clinical Indicators: 73-year-old male with full-thickness ulceration right heel with localized cellulitis. Treatment: Santyl ointment Offload pressure. Follow up in wound care clinic after discharge Please clarify the procedure performed: [x ] Excisional debridement (the removal of necrotic, devitalized tissue or slough by means of cutting away of tissue) Depth of debridement ___0.6cm____ [ ] Non-excisional debridement (the removal of necrotic, devitalized tissue or slough by means of flushing, brushing, or washing. (Irrigation) Depth of debridement [ ] Other; please specify [ ] Unable to determine Dr. Jernigan Five elements required for accurate and compliant documentation of a debridement: -Technique used (e.g., excisional, excised, cutting, brushing, jet lavage etc.) -Instrument(s) used (e.g., scalpel, curette, etc.) -Nature of the tissue removed (e.g., necrotic, devitalized tissues, non-viable tissue, etc.) -Appearance and size of the wound (e.g., down to fresh bleeding tissue, 7cm x 10cm, etc.) -Depth of the debridement* (e.g., skin, subcutaneous tissue, fascia, muscle, bone, etc.) (Template Last Revised: December 2023) Lesion was excised with a scalpel necrotic devitalized tissue marginally centrally size of the wound was approximately 4 cm x 4 cm x 0.6 cm down to good granular tissue removing all necrotic tissue marginally centrally into the subcutaneous tissue. KYMD
[2024-06-14 18:18] LABS: Glucose,Whole Blood 267 mg/dL (70-110)
--- NOTE | 2024-06-14 18:20 | P.PN ---
Progress Note - Text Progress Note Date: 06/14/24 Chief Complaint: Short of breath Pleasant 73-year-old patient follows with Dr. Dennis. 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 Bales. April 26, [address] Bales: Following a non-ST relation DE: Patent stent to mid LAD. Late stent thrombosis of the second diagonal branch of the LAD. Severe disease involving the OM1 appears unchanged. Attempted balloon angioplasty performed to the second of diagonal branch with suboptimal results. Dose of Imdur was increased and Ranexa was added. Patient recently in the hospital from May 28 through May 31. Chronic headaches: MRI unremarkable. MR angio head and neck: MR angio head without contrast: No evidence of aneurysm or significant stenosis. Atrophic right A1 segment. origin of the right posterior cerebral artery.MRI of the brain nonspecific. Was seen by neurology Dr. Gay. Patient to follow-up outpatient Chronic right heel wound seen by Dr. Carpenter from vascular deep debridement was carried out. No need for antibiotics. Patient to follow-up with Dr. Jernigan at the wound center. Shortness of breath: Was seen by cardiology. Not for any further intervention. Patient doing well when discharged. Patient presented increased shortness of breath when at home. His pulse ox dropped out of the 80s. Increasing shortness of breath. Decreased appetite. No fever or chills. June 10: Using his BiPAP. Patient seen this morning. Later this afternoon. Right femoral vein dialysis catheter was placed by Dr. Carpenter from vascular for dialysis. Baseline some shortness of breath. Due for first dialysis today. Patient is right heel culture grew MRSA Proteus P Corynebacterium on May 29. Patient is on IV daptomycin and IV cefepime per ID. June 11: Patient seen this afternoon. On BiPAP. Getting hemodialysis. Remains on IV daptomycin IV Zosyn. Tired. Also getting IV iron. Patient really did not eat today. Because of BiPAP. Cut back Levemir to 26 units at night. DC scheduled NovoLog for now. June 12: Overflowing the ICU. Remains on BiPAP. 04/05/90%. at the bedside. Remains on IV daptomycin and IV Zosyn. For dialysis today. X-ray continues shows infiltrates. Significantly hypoxic. N.p.o. June 13: ICU. Remains on BiPAP. 04/05/90% moderate take anything by mouth. Spoke to the nurse have TPN lipids ordered. Remains on IV daptomycin IV Zosyn. Chest x-ray continues to show diffuse infiltrates. Continues to be followed by cardiology pulmonary ID nephrology. June 14: ICU. Later this afternoon patient was put on Airvo. 60/60. Has some delirium. Remains on IV daptomycin and IV Zosyn. Had 2 L ultrafiltration yesterday. Patient getting daily dialysis for now. As patient is oliguric per nephrology Lasix has been held. TPN was ordered yesterday per the nurse culture that returned to feed the patient. Will see how that goes. Dietitian on the case. Active Medications Acetaminophen (Acetaminophen Tab 325 Mg Tab) 650 mg PO Q6HR PRN PRN Reason: Mild Pain or Fever > 100.5 Acetaminophen/Butalbital/Caffeine (Butalb/Apap/Caff 50-325-40mg Tab) 1 each PO Q4H PRN PRN Reason: Migraine Headache Albuterol/Ipratropium (Ipratropium-Albuterol 3 Ml Neb) 3 ml INHALATION RT-QID [facility] Last Admin: 06/14/24 15:19 Dose: 3 ml Albuterol/Ipratropium (Ipratropium-Albuterol 3 Ml Neb) 3 ml INHALATION RT-QID PRN PRN Reason: Shortness Of Breath Or Wheezing Allopurinol (Allopurinol 100 Mg Tab) 100 mg PO DAILY [facility] Last Admin: 06/14/24 14:40 Dose: 100 mg Amlodipine Besylate (Amlodipine 10 Mg Tab) 10 mg PO DAILY [facility] Last Admin: 06/14/24 12:17 Dose: Not Given Aspirin (Aspirin 81 Mg) 81 mg PO DAILY [facility] Last Admin: 06/14/24 14:40 Dose: 81 mg Atorvastatin Calcium (Atorvastatin 40 Mg Tab) 40 mg PO DAILY [facility] Last Admin: 06/14/24 12:17 Dose: Not Given Budesonide (Budesonide 1 Mg/2 Ml Nebu) 1 mg INHALATION RT-BID [facility] Last Admin: 06/14/24 07:48 Dose: 1 mg Calcitriol (Calcitriol 0.25 Mcg Cap) 0.25 mcg PO Mo@0900 [facility] Last Admin: 06/10/24 10:33 Dose: 0.25 mcg Clopidogrel Bisulfate (Clopidogrel 75 Mg Tab) 75 mg PO DAILY [facility] Last Admin: 06/14/24 14:40 Dose: 75 mg Collagenase (Collagenase 250 Unit/Gm Ointment 30 Gm Tube) 1 applic TOPICAL DAILY [facility]; Protocol Last Admin: 06/14/24 11:00 Dose: 1 applic Darbepoetin Silverio (Darbepoetin Silverio 40 Mcg/0.4 Ml Syringe) 40 mcg SQ Q7D [facility] Last Admin: 06/12/24 12:47 Dose: 40 mcg Dextrose/Water (Dextrose 50% Syringe 50 Ml) 25 ml IVP PER PROTOCOL PRN; Protocol PRN Reason: Hypoglycemia Dextrose/Water (Dextrose 50% Syringe 50 Ml) 50 ml IVP PER PROTOCOL PRN; Protocol PRN Reason: Hypoglycemia Ergocalciferol (Ergocalciferol 1,250 Mcg (50,000 Iu) Capsule) 1,250 mcg PO Q14D [facility] Last Admin: 06/05/24 08:42 Dose: 1,250 mcg Escitalopram Oxalate (Escitalopram 10 Mg Tab) 10 mg PO DAILY [facility] Last Admin: 06/14/24 12:17 Dose: Not Given Furosemide (Furosemide 10 Mg/Ml 10 Ml Vial) 80 mg IV Q12H [facility] Last Admin: 06/14/24 17:31 Dose: 80 mg Gabapentin (Gabapentin 100 Mg Cap) 100 mg PO HS [facility] Last Admin: 06/13/24 21:25 Dose: Not Given Haloperidol Lactate (Haloperidol Lactate 5 Mg/Ml 1 Ml Vial) 5 mg IVP ONCE PRN PRN Reason: Agitation or Acute Psychosis Last Admin: 06/14/24 03:18 Dose: 5 mg Haloperidol Lactate (Haloperidol Lactate 5 Mg/Ml 1 Ml Vial) 5 mg IVP Q8HR PRN PRN Reason: Agitation or Acute Psychosis Last Admin: 06/13/24 03:01 Dose: 5 mg Heparin Sodium (Porcine) (Heparin Sodium,Porcine 5,000 Unit/Ml 1 Ml Vial) 5,000 unit SQ Q8HR [facility] Last Admin: 06/14/24 17:31 Dose: 5,000 unit Hydralazine HCl (Hydralazine Hcl 25 Mg Tab) 25 mg PO TID [facility] Last Admin: 06/14/24 17:29 Dose: Not Given Daptomycin 350 mg/ Sodium (Chloride) 50 mls @ 100 mls/hr IVPB Q48H [facility]; Protocol Last Admin: 06/14/24 12:54 Dose: 100 mls/hr Piperacillin Sod/Tazobactam (Sod 3.375 gm/ Sodium Chloride) 100 mls @ 25 mls/hr IVPB Q12HR [facility]; Protocol Last Admin: 06/14/24 12:54 Dose: 25 mls/hr Insulin Aspart (Insulin Aspart (Novolog) 100 Unit/Ml Vial) 0 unit SQ Q6HR [facility]; Protocol Last Admin: 06/14/24 12:21 Dose: 2 unit Insulin Detemir (Insulin Detemir (Levemir) 100 Unit/Ml Syr) 30 unit SQ HS [facility] Last Admin: 06/13/24 21:15 Dose: 30 unit Isosorbide Mononitrate (Isosorbide Mononitrate Er 60 Mg Tab.Er.24h) 60 mg PO DAILY [facility] Last Admin: 06/14/24 12:17 Dose: Not Given Methylprednisolone Sodium Succinate (Methylprednisolone Sod Succi 125 Mg/2 Ml Vial) 60 mg IV Q6H [facility] Last Admin: 06/14/24 12:54 Dose: 60 mg Metoprolol Succinate (Metoprolol Succinate (Er) 25 Mg Tab.Er.24h) 25 mg PO DAILY [facility] Last Admin: 06/14/24 12:17 Dose: Not Given Morphine Sulfate (Morphine Sulfate 2 Mg/Ml Syringe) 1 mg IVP Q4HR PRN PRN Reason: Pain/Discomfort Last Admin: 06/14/24 02:08 Dose: 1 mg Naloxone HCl (Naloxone 0.4 Mg/Ml 1 Ml Vial) 0.2 mg IV Q2M PRN PRN Reason: Opioid Reversal Collagenase 250 Unit /Gm Ointment 30 Gm Tube 1 each TOPICAL DAILY [facility]; Protocol Last Admin: 06/14/24 12:18 Dose: Not Given Pantoprazole Sodium (Pantoprazole 40 Mg Tablet) 40 mg PO DAILY [facility] Last Admin: 06/14/24 12:18 Dose: Not Given Ranolazine (Ranolazine 500 Mg Tab.Er.12h) 500 mg PO Q12HR [facility] Last Admin: 06/14/24 12:18 Dose: Not Given Sodium Bicarbonate (Sodium Bicarbonate Tab 650 Mg Tab) 650 mg PO DAILY [facility] Last Admin: 06/14/24 12:18 Dose: Not Given Tamsulosin HCl (Tamsulosin 0.4 Mg Cap.Er.24h) 0.4 mg PO PC-BRKFST [facility] Last Admin: 06/14/24 12:16 Dose: Not Given Triamcinolone Acetonide (Triamcinolone Acet 0.5% Cream 15 Gm Tube) 1 applic TOPICAL BID PRN; Protocol PRN Reason: rash/dry skin Social history: Non-smoking. No alcohol. On examination: VITAL SIGNS: 97.9, 86, 12, 125 x 57, 97% on Airvo 60/60 GENERAL APPEARANCE: Reclining in bed, slightly delirious HEENT: Normal external appearance of nose and ear. Oral cavity normal EYES: Pupils equal. Conjunctiva normal. NECK: JVD not raised. Mass not palpable. RESPIRATORY: Respiratory effort increased lungs decreased breath sounds CARDIOVASCULAR: First and second sounds normal. Minimal edema in the right leg ABDOMEN: Soft. Liver and spleen not palpable. No tenderness. No right upper quadrant tenderness. No mass palpable. Colostomy bag with liquid stool PSYCHIATRY: Does answer simple questions. Does repeat the answers. Extremity: Right foot in dressing INVESTIGATIONS, reviewed in the clinical context: June 14: White count 16.2 hemoglobin 9.2 platelets 236 sodium 134 potassium 4.3 BUN 68 creatinine 3.26 June 13: White count 16.5 hemoglobin 9.3 platelets 273 sodium 135 potassium 4.7 BUN 38 creatinine 3.34 June 11: Potassium 4.9 BUN 108 creatinine 4.1 June 10: White count 12.8 hemoglobin 7.9 platelets 335 sodium 135 potassium 5.2 BUN 118 creatinine 4.1 June 04: White count 10.2 hemoglobin 10.4 platelet 374 sodium 135 potassium 4 .6 BUN 66 creatinine 2.71 troponin I less than 0.012 proBNP 2550 EKG tracing personally reviewed by md-atrial fibrillation. Rate 68 Chest x-ray film personally reviewed by md-pulm edema Recent labs May 30: Potassium 4.7 BUN 42.3 creatinine 2.3 Assessment and plan: -Acute on chronic congestive heart failure exacerbation, from diastolic dysfunction EF 55 to 60%.: Slow to respond IV Lasix was given now discontinued Started on dialysis June 10. -Acute hypoxic respiratory failure from pulmonary edema: Not improving On BiPAP 04/05/%. Today changed to Airvo 60/60 -COPD non-smoker DuoNeb 4 times daily. Nebulized Pulmicort -Chronic ostomy-functioning well -Chronic cephalgia. Patient stated headaches for greater than 6 months. Practically every day. Does not interfere with his eating. No exacerbating relieving factors: Possible tension headaches. CT scan of the brain shows some chronic changes MRI and MRI of the brain showing chronic changes. Seen by Dr. Gay from neurology a week ago. Further outpatient follow-up with neurology -Acute delirium/metabolic encephalopathy. Multifactorial: Slow to respond -Right heel wound. Dry. Follows with Dr. Jernigan at the wound center. Dr. Carpenter from vascular-. Deep debridement carried recently Wound culture [May 29] MRSA, Proteus IV cefepime, daptomycin per ID -Chronic parastomal hernia #Hypertension: Amlodipine. Toprol-XL. Hydralazine -Acute kidney injury, likely cardiorenal: On hemodialysis Right femoral vein dialysis catheter placed by Dr. Carpenter on June 10. Hemodialysis started June 10-Daily -CKD likely nephrosclerosis, diabetic nephropathy Creatinine was 1.6 on April 28, 2024. -CAD with stent Toprol-XL -Anemia in the setting of chronic kidney disease. Iron deficiency anemia. Given IV iron -Primary osteoarthritis Pain medication as needed -History of prostate cancer with radiation and chemo in 2020. #Diabetes mellitus type II, chronically on insulin: Tresiba. Follow Accu-Cheks #Hyperlipidemia: Lipitor #GERD: Protonix -Full code No family at the bedside. Past Medical History Past Medical History: Cancer, Chest Pain / Angina, Diabetes Mellitus, Eye Disorder, GERD/Reflux, Hyperlipidemia, Hypertension, Osteoarthritis (OA), Prostate Disorder, Renal Disease Additional Past Medical History / Comment(s): HX OF ULCERATIVE COLITIS, ileostomy PARASTOMAL HERNIA, PROSTATE CA WITH RADIATION AND CHEMO IN 2020, LOW KIDNEY FUNCTION,Covid Dec 2022, Influenza A Jun 2023, eye condition, unsure of name. History of Any Multi-Drug Resistant Organisms: MRSA Date of last positivie culture/infection: 05/24/24 MDRO Source:: rt heel, scalp Past Surgical History: Appendectomy, Bowel Resection, Heart Catheterization, Heart Catheterization With Stent Additional Past Surgical History / Comment(s): COLECTOMY, RECTUM REMOVED, ELLIOTT CATARACTS removed, ILEOSTOMY, HERNIA SURGERY. Past Anesthesia/Blood Transfusion Reactions: No Reported Reaction Additional Past Anesthesia/Blood Transfusion Reaction / Comment(s): no problems with prior blood transfusions. Date of Last Stent Placement:: 08/01/2023 Past Psychological History: No Psychological Hx Reported Smoking Status: Never smoker Past Alcohol Use History: None Reported Past Drug Use History: None Reported
[2024-06-15 00:02] LABS: Glucose,Whole Blood 336 mg/dL (70-110)
[2024-06-15 04:39] LABS: Anisocytosis Slight; HCT 29.7 % (39.0-53.0); HGB 9.4 gm/dL (13.0-17.5); Hypochromasia Marked; MCH 31.2 pg (25.0-35.0); MCHC 31.5 g/dL (31.0-37.0); MCV 98.8 fL (80.0-100.0); Macrocytosis Slight; Mean Platelet Volume 9.4; Platelet Count 203 k/uL (150-450); RBC 3.01 m/uL (4.30-5.90); RDW 17.3 % (11.5-15.5); WBC 9.4 k/uL (3.8-10.6)
[2024-06-15 04:49] LABS: African American GFR (CKD) 21 (>60 ml/min/1.73 sqM); Anion Gap 16 mmol/L; Blood Urea Nitrogen 72 mg/dL (9-20); Calcium 8.8 mg/dL (8.4-10.2); Carbon Dioxide 25 mmol/L (22-30); Chloride 90 mmol/L (98-107); Glucose 299 mg/dL (74-99); Non-African American GFR(CKD) 19 (>60 ml/min/1.73 sqM); Potassium 4.1 mmol/L (3.5-5.1); Sodium 131 mmol/L (137-145)
[2024-06-15 05:57] LABS: Glucose,Whole Blood 296 mg/dL (70-110)
--- NOTE | 2024-06-15 07:35 | XR ---
EXAMINATION TYPE: XR chest 1V portable DATE OF EXAM: 06/15/2024 5:08 AM COMPARISON: Chest radiograph from one day prior. CLINICAL INDICATION: Male, 73 years old with history of disease progression; [facility] TECHNIQUE: XR chest 1V portable Frontal view of the chest. FINDINGS: FINDINGS: Lungs/Pleura: Similar multifocal airspace opacities. No evidence of pneumothorax or pleural effusion. Pulmonary vascularity: Unremarkable. Heart/mediastinum: Cardiomediastinal silhouette is unremarkable. Musculoskeletal: No acute osseous pathology. IMPRESSION: Similar multifocal airspace opacities [facility] Daja Scott, , 06/15/2024 7:32 AM
--- NOTE | 2024-06-15 10:55 | P.PN ---
Subjective Progress Note Date: 06/15/24 Patient is a 73-year-old male with past medical history significant for hypertension, hyperlipidemia, coronary artery disease with previous PCI/stenting, heart failure, chronic kidney disease, diabetes mellitus, chronic right heel wound, ulcerative colitis with previous colectomy and ileostomy. Of note, patient had a recent hospitalization late May and was just discharged 05/31/2024 for CHF exacerbation. Echocardiogram done during this hospitalization estimating a preserved left ventricular ejection fraction of 55 to 60%. Limited study, but no acute valvular abnormalities reported. Presented the emergency department on 06/04/2024 with a chief complaint of shortness of breath, mostly on exertion. Chest x-ray showing cardiomegaly, mild pulmonary vascular congestion, and a small pleural effusion on the left. NT proBNP elevated 2550. Currently receiving Lasix 80 mg twice daily. CBC: WBC count 10.2, hemoglobin 10.4, hematocrit 32.5, platelets 374. CMP: Sodium 135, potassium 4.6, chloride 101, serum bicarb 18, BUN 66, creatinine 2.71, glucose 139. Troponin is less than 0.012. Patient currently being evaluated on the general medical floor. Appears weak and deconditioned. He is resting in bed on 1 L/min nasal cannula. No respiratory distress noted. Complaining of a generalized headache, which he states is chronic. States that he has been short of breath on exertion for several months to almost 1 year. Particularly on exertion such as climbing stairs or walking to the bathroom. Denies history of COPD or asthma. Never tobacco smoker. Worked in an [employer] shop before he retired. Denies cough. Denies infectious-like symptoms. Current vital signs: Temperature 98 F, heart rate 78 bpm, blood pressure 145/54 mmHg, nontachypneic, SpO2 recorded at 91% on 1 L/min nasal cannula. The patient is seen today June 07, 2024 in follow-up on the regular medical floor. He is awake and alert in no acute distress. Sitting up at the bedside. Maintaining O2 saturations in the 90s on 3 L/min per nasal cannula. White count 9.8. Hemoglobin 8.9. Platelets 366. Sodium 140. Potassium 4.7. Bicarb 22. BUN 60. Creatinine 2.4. Glucose 97. He remains on DuoNeb and elations, Pulmicort inhalations. Lasix 80 mg IV every 12 hours. He is currently -1.1 L balance. Antibiotics in the form of cefepime and daptomycin for his diabetic ulcer of the right foot. X-ray revealed no osseous erosion or acute fracture. The patient is seen today June 08, 2024 in follow-up on the regular medical floor. He did have issues with worsening shortness of breath. He is currently on BiPAP 12/6 and 40% FiO2. White count 6.3. Hemoglobin 8.5. Platelets 357. Sodium 136. Potassium 5.8. Bicarb 21. BUN 64. Creatinine 2.4. Glucose 178. Chest x-ray continues to show evidence of congestive heart failure. He is currently on Lasix 80 mg IV every 12 hours. Continued on bronchodilators and steroids. Remains on antibiotics in the form of cefepime and daptomycin. The patient is seen today June 09, 2024 in follow-up on the regular medical floor. He is currently resting comfortably in bed. Awake and alert in no acute distress. Breathing easier today compared to yesterday. He is currently on BiPAP 12/6 and 40% FiO2. White count 10.1. Hemoglobin 8.0. Platelets 339. Sodium 136. Potassium 5.8. Bicarb 21. BUN 94. Creatinine 3.4. Glucose 234. He remains on DuoNeb and elations, Pulmicort inhalations, Solu-Medrol. Remains on IV diuretics. Remains on cefepime and daptomycin. Receiving Lokelma. The patient is seen today June 10, 2024 in follow-up on the regular medical floor. He is currently sitting up at the bedside. Awake and alert in no acute distress. He is requiring BiPAP support at 12/6 and 60% FiO2. Alternating with oxygen at 4 L/min per nasal cannula. He is continued on DuoNeb inhalations, Pulmicort inhalations, Solu-Medrol. He remains on antibiotics in the form of cefepime and daptomycin. Receiving iron supplement. Continued on IV diuretics. Continued on sodium bicarb tablets. White count 12.8. Hemoglobin 7.9. Platelets 335. Sodium 135. Potassium 5.2. Bicarb 23. BUN 118. Creatinine 4.1. Glucose 131. Plan is for placement of a hemodialysis catheter today and to receive hemodialysis today and tomorrow per nephrology. The patient is seen today June 12, 2024 in follow-up in the intensive care unit. He was transferred here last evening as his oxygen requirements increased. He is currently on BiPAP 12/6 and 90% FiO2. Arterial blood gases revealed a PaO2 of 60, pCO2 39 and a pH of 7.44. Chest x-ray continues to show diffuse bilateral airspace disease. Blood culture revealed no growth. White count 15.8. Hemoglobin 8.4. Platelets 257. Sodium 135. Potassium 4.4. Bicarb 23. BUN 90. Creatinine 3.51. Glucose 165. proBNP 7440. Procalcitonin pending. He is continued on daptomycin and Zosyn. Remains on Lasix 80 mg IV every 12 hours. Oertli in a -4 L balance. He did receive hemodialysis yesterday and again today 2 L removed each time. He is continued on DuoNeb and elations, Pulmicort inhalations. Solu-Medrol. The patient is seen today June 13, 2024 in follow-up in the intensive care unit. He remains mostly BiPAP dependent currently on 12/6 and 90% FiO2. No IV fluids. The plan is for hemodialysis again today which will be day #4 with approximately 2 L removed each time. Chest x-ray is showing evidence of acute respiratory distress syndrome. His PF ratio is 66 indicating severe ARDS. Blood culture revealed no growth. White count 16.5. Hemoglobin 9.3. Platelets 273. Sodium 135. Potassium 4.7. Bicarb 25. BUN 78. Creatinine 3.34. Glucose 211. Procalcitonin is elevated at 4.78. He remains on DuoNeb inhalations, Pulmicort inhalations, Solu-Medrol. Remains on daptomycin and Zosyn. Remains on Lasix 80 mg IV every 12 hours. Currently in a -4 L balance. Heparin for DVT prophylaxis. Protonix for GI prophylaxis. The patient is seen today June 14, 2024 in follow-up in the intensive care unit. He is awake and alert in no acute distress. He remains on BiPAP 12/6 and 60% FiO2. He is receiving hemodialysis again today with a goal of 2 to 2-1/2 L to be removed. His chest x-ray is showing improvement. Microbiology reveals no growth. He remains on Zosyn. Procalcitonin was 4.78. He has normal saline at KVO. White count 16.2. Hemoglobin 9.2. Platelets 236. Sodium 134. Potassium 4.3. Bicarb 27. BUN 68. Creatinine 3.26. Glucose 210. He remains on DuoNeb inhalations, Pulmicort inhalations, IV Solu-Medrol. He remains on daptomycin and Zosyn. He remains on Lasix 80 mg IV every 12 hours. Currently in a -7.8 L balance. Heparin for DVT prophylaxis. He did undergo debridement with surgical open necrotic tissue of the right heel for diabetic Walter grade 2 ulceration. The patient is seen today June 15, 2024 in follow-up in the intensive care unit. He is currently sitting up in bed. Awake and alert in no acute distress. He is continued on BiPAP 12/6 and 50% FiO2. He is alternating with Airvo high flow oxygen at 50 L and 60% FiO2. Chest x-ray showing improved aeration. He received hemodialysis yesterday with another 2-1/2 L removed. The plan is for hemodialysis again today. He has normal staying at [facility]. He remains on daptomycin and Zosyn. He remains on DuoNeb and elations, Pulmicort inhalations, Solu-Medrol. Heparin for DVT prophylaxis. Remains on Lasix 80 mg IV every 12 hours. White count 9.4. Hemoglobin 9.4. Platelets 203. Sodium 131. Potassium 4.1. Bicarb 25. BUN 72. Creatinine 3.14. Glucose 299. Objective - Vital Signs Vital signs: Vital Signs Temp 97.4 F L 06/15/24 08:00 Pulse 88 06/15/24 09:00 Resp 13 06/15/24 09:00 BP 109/51 06/15/24 09:00 Pulse Ox 98 06/15/24 08:00 FiO2 60 06/15/24 09:00 Intake & Output 06/14/24 06/15/24 06/15/24 18:59 06:59 18:59 Intake Total 960 520 10 Output Total 5520 65 0 Balance -4560 455 10 Weight 102.8 kg 101.8 kg Intake: IV 210 220 10 Piperacillin-Tazobactam 3 100 100 .375 gm In Sodium Chloride 0.9% 100 ml @ 25 mls/hr IVPB Q12HR [facility] Rx #:[id number] Sodium Chloride 0.9% 1000 110 120 10 mL @ 10 mLs/hr Intake, IV Titration 100 Amount DAPTOmycin 350 mg In 100 Sodium Chloride 0.9% 50 ml @ 100 mls/hr IVPB Q48H [facility] Rx#:[id number] Oral 300 Blood Product 150 Hemodialysis 500 Output: Urine 20 5 0 Stool 60 Hemodialysis 3000 Hemodialysis Net Amount 2500 Other: Voiding Method Indwelling Catheter Indwelling Catheter - Exam GENERAL EXAM: Awake, 73-year-old obese male, on BiPAP 12/6 and 50% FiO2. HEAD: Normocephalic and atraumatic EYES: Normal reaction of pupils, equal size. NOSE: Clear with pink turbinates. THROAT: No erythema or exudates. NECK: No masses, no JVD. CHEST: No chest wall deformity. LUNGS: Equal air entry with diminished lung sounds throughout. Crackles in the bilateral bases. CVS: S1 and S2 normal with no audible murmur, regular rhythm. No extra heart sounds ABDOMEN: No hepatosplenomegaly, active bowel sounds, no guarding or rigidity. Functional ileostomy SPINE: No scoliosis or deformity SKIN: Generalized erythemic plaques involving upper extremities, chest, back CENTRAL NERVOUS SYSTEM: No focal deficits, tone is normal in all 4 extremities. EXTREMITIES: Right foot is wrapped with a bandage. There is 1-2+ peripheral edema. Peripheral pulses are intact. - Labs CBC & Chem 7: 06/15/24 03:56 06/15/24 03:56 Labs: Abnormal Lab Results - Last 24 Hours (Table) 06/14/24 06/14/24 06/15/24 Range/Units 12:16 18:16 00:01 RBC (4.30-5.90) m/uL Hgb (13.0-17.5) gm/dL Hct (39.0-53.0) % RDW (11.5-15.5) % Sodium (137-145) mmol/L Chloride (98-107) mmol/L BUN (9-20) mg/dL Creatinine (0.66-1.25) mg/dL Glucose (74-99) mg/dL POC Glucose (mg/dL) 167 H 267 H 336 H (70-110) mg/dL 06/15/24 06/15/24 06/15/24 Range/Units 03:56 03:56 05:56 RBC 3.01 L (4.30-5.90) m/uL Hgb 9.4 L (13.0-17.5) gm/dL Hct 29.7 L (39.0-53.0) % RDW 17.3 H (11.5-15.5) % Sodium 131 L (137-145) mmol/L Chloride 90 L (98-107) mmol/L BUN 72 H (9-20) mg/dL Creatinine 3.14 H (0.66-1.25) mg/dL Glucose 299 H (74-99) mg/dL POC Glucose (mg/dL) 296 H (70-110) mg/dL Microbiology - Last 24 Hours (Table) 06/13/24 09:39 Blood Culture - Preliminary Blood Assessment and Plan Assessment: Acute exacerbation of diastolic congestive heart failure Severe acute respiratory distress syndrome with a PF ratio of 66 requiring BiPAP support Acute hypoxemic respiratory failure, secondary to above Acute on chronic kidney disease now requiring renal replacement therapy that started June 10, 2024 Hyperkalemia, improved Acute on chronic anemia secondary to above, current hemoglobin 9.3 History of CAD with previous PCI Diabetes mellitus with hyperglycemia Hypertension History of hyperlipidemia Chronic cephalgia History of UC with previous colectomy and ileostomy History of prostate cancer status post chemoradiation Chronic right heel wound, status post debridement on 05/28/2024 again today June 14, 2024 Obesity, with a BMI of 38.8 kg/m Never tobacco smoker Plan: The patient was seen and evaluated Chest x-ray,labs and medications reviewed Chest x-ray showing improved aeration Received hemodialysis today Continue BiPAP 12/6 and 60% Alternating with Airvo high flow oxygen at 50 L and 60% FiO2 Continue bronchodilators, steroids Continue daptomycin and Zosyn Continue IV diuretics Heparin for DVT prophylaxis Protonix for GI prophylaxis We will continue to follow I have personally seen and examined the patient, performed the documentation and the assessment and plan as written. Number of minutes spent on the visit: 20 Dictation was produced using [employer] dictation software. Please excuse any grammatical, word or spelling errors.
--- NOTE | 2024-06-15 10:59 | P.PN ---
Subjective Patient is seen for follow-up for chronic kidney disease and acute kidney injury. Started hemodialysis on 06/10/2024 Seen on hemodialysis. Tolerating treatment well. No significant urine output noted. Objective - Vital Signs Vital signs: Vital Signs Temp 97.4 F L 06/15/24 08:00 Pulse 88 06/15/24 09:00 Resp 13 06/15/24 09:00 BP 109/51 06/15/24 09:00 Pulse Ox 98 06/15/24 08:00 FiO2 60 06/15/24 09:00 Intake & Output 06/14/24 06/15/24 06/15/24 18:59 06:59 18:59 Intake Total 960 520 10 Output Total 5520 65 0 Balance -4560 455 10 Weight 102.8 kg 101.8 kg Intake: IV 210 220 10 Piperacillin-Tazobactam 3 100 100 .375 gm In Sodium Chloride 0.9% 100 ml @ 25 mls/hr IVPB Q12HR [facility] Rx #:[id number] Sodium Chloride 0.9% 1000 110 120 10 mL @ 10 mLs/hr Intake, IV Titration 100 Amount DAPTOmycin 350 mg In 100 Sodium Chloride 0.9% 50 ml @ 100 mls/hr IVPB Q48H [facility] Rx#:[id number] Oral 300 Blood Product 150 Hemodialysis 500 Output: Urine 20 5 0 Stool 60 Hemodialysis 3000 Hemodialysis Net Amount 2500 Other: Voiding Method Indwelling Catheter Indwelling Catheter - Exam Patient is awake, comfortable, no acute distress Examination of the heart S1 and S2 Examination of the lungs bilateral breath sounds are heard, bilateral wheezing heard Abdomen is soft nontender Examination of lower extremities shows edema 1+ bilaterally [employer] exam grossly intact - Labs CBC & Chem 7: 06/15/24 03:56 06/15/24 03:56 Labs: Abnormal Lab Results - Last 24 Hours (Table) 06/14/24 06/14/24 06/15/24 Range/Units 12:16 18:16 00:01 RBC (4.30-5.90) m/uL Hgb (13.0-17.5) gm/dL Hct (39.0-53.0) % RDW (11.5-15.5) % Sodium (137-145) mmol/L Chloride (98-107) mmol/L BUN (9-20) mg/dL Creatinine (0.66-1.25) mg/dL Glucose (74-99) mg/dL POC Glucose (mg/dL) 167 H 267 H 336 H (70-110) mg/dL 06/15/24 06/15/24 06/15/24 Range/Units 03:56 03:56 05:56 RBC 3.01 L (4.30-5.90) m/uL Hgb 9.4 L (13.0-17.5) gm/dL Hct 29.7 L (39.0-53.0) % RDW 17.3 H (11.5-15.5) % Sodium 131 L (137-145) mmol/L Chloride 90 L (98-107) mmol/L BUN 72 H (9-20) mg/dL Creatinine 3.14 H (0.66-1.25) mg/dL Glucose 299 H (74-99) mg/dL POC Glucose (mg/dL) 296 H (70-110) mg/dL Microbiology - Last 24 Hours (Table) 06/13/24 09:39 Blood Culture - Preliminary Blood Assessment and Plan Assessment: 1. Acute kidney injury, nonoliguric, cardiorenal. UA is benign and ultrasound does not show any evidence of hydronephrosis. Started hemodialysis on 06/10/2024 for significant oliguric acute kidney injury. 2. Acute on chronic diastolic CHF 3. Volume overload 4. Hypertension with CKD stage IV 5. Acute hypoxic respiratory failure secondary to CHF 6. Coronary artery disease with history of coronary stents 7. Metabolic acidosis maintained on oral sodium bicarb. 8. Right heel wound status post debridement Plan: Next hemodialysis on 06/17/2024 DC sodium bicarb DC IV Lasix
--- NOTE | 2024-06-15 11:37 | P.PN ---
Subjective Progress Note Date: 06/15/24 Principal diagnosis: Reason for follow-up is right heel diabetic foot ulcer with MRSA infection Patient is a 73-year-old male with a past medical history significant for diabetes mellitus hypertension hyperlipidemia osteomyelitis patient has been dealing with a chronic nonhealing wound to the right heel area for months now and is being treated in outpatient setting by Dr. Jernigan his etl programmer with recent outpatient culture positive for MRSA and is Proteus. On today's evaluation that is 06/15/2024, patient did not have any fever and denies any chills, patient is breathing slightly comfortably however still requiring high flow nasal cannula oxygen with 60% FiO2 patient with no chest pain or cough patient did not have any abdominal pain nausea vomiting or any lo ose stools. Patient white count is 9.4, creatinine 3.14 blood culture negative so far Objective - Vital Signs Vital signs: Vital Signs Temp 97.4 F L 06/15/24 08:00 Pulse 91 06/15/24 11:27 Resp 13 06/15/24 09:00 BP 109/51 06/15/24 09:00 Pulse Ox 99 06/15/24 11:17 FiO2 60 06/15/24 11:17 Intake & Output 06/14/24 06/15/24 06/15/24 18:59 06:59 18:59 Intake Total 960 520 550 Output Total 5520 65 0 Balance -4560 455 550 Weight 102.8 kg 101.8 kg Intake: IV 210 220 50 Piperacillin-Tazobactam 3 100 100 .375 gm In Sodium Chloride 0.9% 100 ml @ 25 mls/hr IVPB Q12HR [facility] Rx #:[id number] Sodium Chloride 0.9% 1000 110 120 50 mL @ 10 mLs/hr Intake, IV Titration 100 Amount DAPTOmycin 350 mg In 100 Sodium Chloride 0.9% 50 ml @ 100 mls/hr IVPB Q48H [facility] Rx#:[id number] Oral 300 500 Blood Product 150 Hemodialysis 500 Output: Urine 20 5 0 Stool 60 Hemodialysis 3000 Hemodialysis Net Amount 2500 Other: Voiding Method Indwelling Catheter Indwelling Catheter - Exam GENERAL DESCRIPTION: An elderly male lying in bed in no distress RESPIRATORY SYSTEM: Unlabored breathing , decreased breath sounds at bases HEART: S1 S2 regular rate and rhythm , ABDOMEN: Soft , no tenderness EXTREMITIES: Right heel is currently dressed - Labs CBC & Chem 7: 06/15/24 03:56 06/15/24 03:56 Labs: Abnormal Lab Results - Last 24 Hours (Table) 06/14/24 06/14/24 06/15/24 Range/Units 12:16 18:16 00:01 RBC (4.30-5.90) m/uL Hgb (13.0-17.5) gm/dL Hct (39.0-53.0) % RDW (11.5-15.5) % Sodium (137-145) mmol/L Chloride (98-107) mmol/L BUN (9-20) mg/dL Creatinine (0.66-1.25) mg/dL Glucose (74-99) mg/dL POC Glucose (mg/dL) 167 H 267 H 336 H (70-110) mg/dL 06/15/24 06/15/24 06/15/24 Range/Units 03:56 03:56 05:56 RBC 3.01 L (4.30-5.90) m/uL Hgb 9.4 L (13.0-17.5) gm/dL Hct 29.7 L (39.0-53.0) % RDW 17.3 H (11.5-15.5) % Sodium 131 L (137-145) mmol/L Chloride 90 L (98-107) mmol/L BUN 72 H (9-20) mg/dL Creatinine 3.14 H (0.66-1.25) mg/dL Glucose 299 H (74-99) mg/dL POC Glucose (mg/dL) 296 H (70-110) mg/dL Microbiology - Last 24 Hours (Table) 06/13/24 09:39 Blood Culture - Preliminary Blood Assessment and Plan (1) Diabetic infection of right foot Current Visit: Yes Status: Acute Code(s): E11.628 - TYPE 2 DIABETES MELLITUS WITH OTHER SKIN COMPLICATIONS; L08.9 - LOCAL INFECTION OF THE SKIN AND SUBCUTANEOUS TISSUE, UNSP SNOMED Code(s): 488104851 (2) MRSA (methicillin resistant staph aureus) culture positive Current Visit: Yes Status: Acute Code(s): Z22.322 - CARRIER OR SUSPECTED CARRIER OF METHICILLIN RESIS STAPH SNOMED Code(s): 068993976 (3) Diabetic ulcer of right foot Current Visit: No Status: Acute Code(s): E11.621 - TYPE 2 DIABETES MELLITUS WITH FOOT ULCER; L97.519 - NON-PRS CHRONIC ULCER OTH PRT RIGHT FOOT W UNSP SEVERITY SNOMED Code(s): 147839504 (4) Stage III pressure ulcer of right heel Current Visit: No Status: Acute Code(s): L89.613 - PRESSURE ULCER OF RIGHT HEEL, STAGE 3 SNOMED Code(s): 13848026322495 Plan: 1patient with a chronic nonhealing wound to the right heel which he has for couple of months the wound looks deep with a recent culture positive for Proteus and MRSA concerning for wound infection and question for possible deeper infection such as osteomyelitis as wound has been there for couple of months now 2- x-rays of the right heel with no evidence of any bony changes 3-patient has been evaluated by Dr. Carpenter and did have surgical debridement completed on 06/07/2024 and did have a further debridement at the bedside by his etl programmer on 06/14/2024 4-patient remains to be afebrile white count is normal, patient will be treated Zosyn and daptomycin and will monitor clinical course closely Dictation was produced using [employer] software. please excuse any grammatical, word or spelling errors. Time with Patient: Less than 30
[2024-06-15 11:48] LABS: Glucose,Whole Blood 169 mg/dL (70-110)
--- NOTE | 2024-06-15 14:36 | P.PN ---
Subjective Progress Note Date: 06/15/24 HISTORY OF PRESENT ILLNESS: This is 73-year-old male patient of Dr. Bales with past medical history of co ronary artery disease status post PCI of the LAD and second diagonal branch, known severe disease involving the OM1, heart failure with preserved EF, diabetes, hypertension, dyslipidemia, chronic kidney disease, dilated ascending aorta, history of colectomy and overweight. We have been asked to evaluate the patient for CHF. Patient was recently hospitalized 05/28 - 05/31 and was treated for CHF and acute kidney injury. Patient states that when he went home he did not feel any better related to shortness of breath and when he had come in. He states he continues to have shortness of breath which is worsening and also has a little lightheadedness and dizziness. He complains of chest pain across the mid chest and also some left lower abdominal pain. He denies cough but he states in the morning he has sputum production. No significant lower extremity edema. He does have a chronic wound to the right foot with the boot in place. Blood pressure 121/61, heart rate 69, pulse ox 96% on 2 and half liters nasal cannula. Patient has been started on IV Lasix 80 mg every 12 hours. -EKG: Atrial fibrillation [address] changes -Chest x-ray: Correlate for volume overload -Laboratory studies: WBC 10.2, hemoglobin 10.4, platelet count 374. Sodium 135, potassium 4.6, BUN 66 and creatinine 2.71. Troponin negative x 1. proBNP 2550. -Home cardiac medications: Amlodipine 10 mg daily, aspirin 81 mg daily, atorvastatin 40 mg daily, Plavix 75 mg daily, Farxiga 10 mg daily, hydralazine 25 mg 3 times daily, Imdur 60 mg daily, Toprol XL 25 mg daily, Ranexa 500 mg every 12 hours, Demadex 40 mg daily. -Echocardiogram from 05/28/2024 revealed technical difficult study minimal mitral and tricuspid regurgitation. No pericardial effusion. -Cardiac catheterization history: April 26, 2024 revealing patent stent in the mid LAD. Late stent thrombosis of the second diagonal branch of the LAD, severe disease involving OM1 appeared unchanged compared to before, attempted balloon angioplasty was performed of second diagonal branch with suboptimal results June 09, 2024 The patient was seen and evaluated this morning. Unfortunately the kidney function is worse. He is still in failure now requiring BiPAP. The chest x-ray from yesterday showed finding consistent with failure. He continues to be on Lasix IV. Nephrology team is on the case. The physical examination is remarkable for regular rhythm wit diminished breathing sounds bilaterally and mild bilateral expiratory wheezing and mild bilateral lower extremities edema. Beside that he is hyperkalemic that is under treatment at this point. 06/10/2024 Patient examined this morning at the bedside. Patient currently reports shortness of breath. He remains on IV Lasix. He denies any chest pain or pressure. Creatinine is worsening today at 4.1. Patient states that he spoke with nephrology this morning and plan is to begin hemodialysis today. 06/11 Patient seen and examined Patient is preparing to have his second dialysis treatment this morning. He is on 100% BiPAP pulse ox 92%. Blood pressure 129/58, heart rate 70. No repeat blood work today. 06/12/2024 Patient is seen and examined at bedside this a.m. Patient is maintained on BiPAP support, saturating 92%. Hemodynamically stable. EKG shows sinus rhythm on telemetry. 06/13/2024, Seen and examined at bedside this a.m. Patient is BiPAP dependent and is not able to tolerate removal of BiPAP even for food and medications. BP 120/50, heart rate 80 bpm, sinus rhythm on telemetry, 95% saturation on BiPAP support Minimal urine output chest x-ray shows significant pulmonary edema suggestive of volume overload. Would recommend continuing fluid removal with hemodialysis and hold his antihypertensives before his hemodialysis so that more volume can be removed during dialysis session. 06/14/24 Patient is getting hemodialysis, fluid status appears to be improved. Still on continuous BiPAP support . 06/15/2024 Patient noticed to be hypotensive today after hemodialysis. We will hold his antihypertensives. Patient has had significant negative fluid balance with continuous hemodialysis in last 2 days. I would recommend reducing the amount of ultrafiltrate as I feel that patient is now getting towards more dehydration. PHYSICAL EXAM: VITAL SIGNS: Reviewed. GENERAL: Well-developed in no acute distress. NECK: Supple. No JVD or thyromegaly LUNGS: Respirations even and unlabored. Lungs with expiratory wheezing noted HEART: Regular rate and rhythm. S1 and S2 heard. EXTREMITIES: Normal range of motion. No clubbing or cyanosis. Peripheral pulses intact. 1+ bilateral lower extremity edema ASSESSMENT: Acute hypoxic respiratory failure BiPAP dependent Acute on chronic diastolic heart failure Oliguric ATN Acute kidney injury and chronic kidney disease, patient started HD on 06/10 History of coronary artery disease with PCI of the LAD and second diagonal with known severe disease involving the OM1 Nonhealing right heel wound with concerns of infection on antibiotics. Diabetes Hypertension Dyslipidemia Dilated ascending aorta History of colectomy PLAN: I would diuretics and hemodialysis as per nephrology. I would recommend reducing the amount of ultrafiltrate because patient is now getting hypotensive and clinically appears more volume optimized. Last 5 days patient has had -13 L of ultrafiltrate removal. Hold antihypertensives if SBP less than 100 mmHg. Continue other cardiac medications: Amlodipine 10 mg daily, aspirin 81 mg daily, atorvastatin 40 mg daily, Plavix 75 mg daily, hydralazine 25 mg 3 times daily, Imdur 60 mg daily, Toprol XL 25 mg daily, Ranexa 500 mg twice daily Objective - Vital Signs Vital signs: Vital Signs Temp 97.4 F L 06/15/24 13:08 Pulse 87 06/15/24 14:00 Resp 12 06/15/24 14:00 BP 108/50 06/15/24 14:00 Pulse Ox 100 06/15/24 14:00 FiO2 55 06/15/24 12:00 Intake & Output 06/14/24 06/15/24 06/15/24 18:59 06:59 18:59 Intake Total 885 191 2478 Output Total 5520 65 2900 Balance -4560 455 670 Weight 102.8 kg 101.8 kg Intake: IV 210 220 170 Piperacillin-Tazobactam 3 100 100 100 .375 gm In Sodium Chloride 0.9% 100 ml @ 25 mls/hr IVPB Q12HR [facility] Rx #:[id number] Sodium Chloride 0.9% 1000 110 120 70 mL @ 10 mLs/hr Intake, IV Titration 100 Amount DAPTOmycin 350 mg In 100 Sodium Chloride 0.9% 50 ml @ 100 mls/hr IVPB Q48H [facility] Rx#:[id number] Oral 300 500 Blood Product 150 Hemodialysis 500 2900 Output: Urine 20 5 0 Stool 60 Hemodialysis 3000 400 Hemodialysis Net Amount 2500 2500 Other: Voiding Method Indwelling Catheter Indwelling Catheter Indwelling Catheter - Labs CBC & Chem 7: 06/15/24 03:56 06/15/24 03:56 Labs: Abnormal Lab Results - Last 24 Hours (Table) 06/14/24 06/15/24 06/15/24 Range/Units 18:16 00:01 03:56 RBC 3.01 L (4.30-5.90) m/uL Hgb 9.4 L (13.0-17.5) gm/dL Hct 29.7 L (39.0-53.0) % RDW 17.3 H (11.5-15.5) % Sodium (137-145) mmol/L Chloride (98-107) mmol/L BUN (9-20) mg/dL Creatinine (0.66-1.25) mg/dL Glucose (74-99) mg/dL POC Glucose (mg/dL) 267 H 336 H (70-110) mg/dL 06/15/24 06/15/24 06/15/24 Range/Units 03:56 05:56 11:47 RBC (4.30-5.90) m/uL Hgb (13.0-17.5) gm/dL Hct (39.0-53.0) % RDW (11.5-15.5) % Sodium 131 L (137-145) mmol/L Chloride 90 L (98-107) mmol/L BUN 72 H (9-20) mg/dL Creatinine 3.14 H (0.66-1.25) mg/dL Glucose 299 H (74-99) mg/dL POC Glucose (mg/dL) 296 H 169 H (70-110) mg/dL Microbiology - Last 24 Hours (Table) 06/13/24 09:39 Blood Culture - Preliminary Blood
[2024-06-15] MEDS: methylPREDNISolone SOD SUCCI 40 MG/ML 1 ML VIAL IV SCH (16:39)
[2024-06-15 18:04] LABS: Glucose,Whole Blood 330 mg/dL (70-110)
--- NOTE | 2024-06-15 19:27 | P.PN ---
Progress Note - Text Progress Note Date: 06/15/24 Chief Complaint: Short of breath Pleasant 73-year-old patient follows with Dr. Dennis. 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 Bales. April 26, [address] Bales: Following a non-ST relation MT: Patent stent to mid LAD. Late stent thrombosis of the second diagonal branch of the LAD. Severe disease involving the OM1 appears unchanged. Attempted balloon angioplasty performed to the second of diagonal branch with suboptimal results. Dose of Imdur was increased and Ranexa was added. Patient recently in the hospital from May 28 through May 31. Chronic headaches: MRI unremarkable. MR angio head and neck: MR angio head without contrast: No evidence of aneurysm or significant stenosis. Atrophic right A1 segment. origin of the right posterior cerebral artery.MRI of the brain nonspecific. Was seen by neurology Dr. Gay. Patient to follow-up outpatient Chronic right heel wound seen by Dr. Carpenter from vascular deep debridement was carried out. No need for antibiotics. Patient to follow-up with Dr. Jernigan at the wound center. Shortness of breath: Was seen by cardiology. Not for any further intervention. Patient doing well when discharged. Patient presented increased shortness of breath when at home. His pulse ox dropped out of the 80s. Increasing shortness of breath. Decreased appetite. No fever or chills. June 10: Using his BiPAP. Patient seen this morning. Later this afternoon. Right femoral vein dialysis catheter was placed by Dr. Carpenter from vascular for dialysis. Baseline some shortness of breath. Due for first dialysis today. Patient is right heel culture grew MRSA Proteus P Corynebacterium on May 29. Patient is on IV daptomycin and IV cefepime per ID. June 11: Patient seen this afternoon. On BiPAP. Getting hemodialysis. Remains on IV daptomycin IV Zosyn. Tired. Also getting IV iron. Patient really did not eat today. Because of BiPAP. Cut back Levemir to 26 units at night. DC scheduled NovoLog for now. June 12: Overflowing the ICU. Remains on BiPAP. 04/05/90%. at the bedside. Remains on IV daptomycin and IV Zosyn. For dialysis today. X-ray continues shows infiltrates. Significantly hypoxic. N.p.o. June 13: ICU. Remains on BiPAP. 12//90% moderate take anything by mouth. Spoke to the nurse have TPN lipids ordered. Remains on IV daptomycin IV Zosyn. Chest x-ray continues to show diffuse infiltrates. Continues to be followed by cardiology pulmonary ID nephrology. June 14: ICU. Later this afternoon patient was put on Airvo. 60/60. Has some delirium. Remains on IV daptomycin and IV Zosyn. Had 2 L ultrafiltration yesterday. Patient getting daily dialysis for now. As patient is oliguric per nephrology Lasix has been held. TPN was ordered yesterday per the nurse culture that returned to feed the patient. Will see how that goes. Dietitian on the case. June 15: ICU. Patient be getting hypotensive. Some medications held back by cardiology. Hemodialysis done today. Patient remains on Airvo though at 50/50. at the bedside. Plans this afternoon to get him up in the chair. Remains on daptomycin and IV Zosyn. IV Lasix been discontinued. Patient tolerating some liquid diet. Active Medications Acetaminophen (Acetaminophen Tab 325 Mg Tab) 650 mg PO Q6HR PRN PRN Reason: Mild Pain or Fever > 100.5 Acetaminophen/Butalbital/Caffeine (Butalb/Apap/Caff 50-325-40mg Tab) 1 each PO Q4H PRN PRN Reason: Migraine Headache Albuterol/Ipratropium (Ipratropium-Albuterol 3 Ml Neb) 3 ml INHALATION RT-QID [facility] Last Admin: 06/15/24 15:06 Dose: 3 ml Albuterol/Ipratropium (Ipratropium-Albuterol 3 Ml Neb) 3 ml INHALATION RT-QID PRN PRN Reason: Shortness Of Breath Or Wheezing Allopurinol (Allopurinol 100 Mg Tab) 100 mg PO DAILY [facility] Last Admin: 06/15/24 09:20 Dose: 100 mg Amlodipine Besylate (Amlodipine 10 Mg Tab) 10 mg PO DAILY [facility] Last Admin: 06/15/24 10:50 Dose: Not Given Aspirin (Aspirin 81 Mg) 81 mg PO DAILY [facility] Last Admin: 06/15/24 09:21 Dose: 81 mg Atorvastatin Calcium (Atorvastatin 40 Mg Tab) 40 mg PO DAILY [facility] Last Admin: 06/15/24 09:21 Dose: 40 mg Budesonide (Budesonide 1 Mg/2 Ml Nebu) 1 mg INHALATION RT-BID [facility] Last Admin: 06/15/24 08:00 Dose: 1 mg Calcitriol (Calcitriol 0.25 Mcg Cap) 0.25 mcg PO Mo@0900 [facility] Last Admin: 06/10/24 10:33 Dose: 0.25 mcg Clopidogrel Bisulfate (Clopidogrel 75 Mg Tab) 75 mg PO DAILY [facility] Last Admin: 06/15/24 09:21 Dose: 75 mg Collagenase (Collagenase 250 Unit/Gm Ointment 30 Gm Tube) 1 applic TOPICAL DAILY [facility]; Protocol Last Admin: 06/15/24 17:59 Dose: 1 applic Darbepoetin Silverio (Darbepoetin Silverio 40 Mcg/0.4 Ml Syringe) 40 mcg SQ Q7D [facility] Last Admin: 06/12/24 12:47 Dose: 40 mcg Dextrose/Water (Dextrose 50% Syringe 50 Ml) 25 ml IVP PER PROTOCOL PRN; Protocol PRN Reason: Hypoglycemia Dextrose/Water (Dextrose 50% Syringe 50 Ml) 50 ml IVP PER PROTOCOL PRN; Protocol PRN Reason: Hypoglycemia Ergocalciferol (Ergocalciferol 1,250 Mcg (50,000 Iu) Capsule) 1,250 mcg PO Q14D [facility] Last Admin: 06/05/24 08:42 Dose: 1,250 mcg Escitalopram Oxalate (Escitalopram 10 Mg Tab) 10 mg PO DAILY [facility] Last Admin: 06/15/24 09:21 Dose: 10 mg Gabapentin (Gabapentin 100 Mg Cap) 100 mg PO HS [facility] Last Admin: 06/14/24 20:15 Dose: 100 mg Haloperidol Lactate (Haloperidol Lactate 5 Mg/Ml 1 Ml Vial) 5 mg IVP ONCE PRN PRN Reason: Agitation or Acute Psychosis Last Admin: 06/14/24 23:51 Dose: 5 mg Haloperidol Lactate (Haloperidol Lactate 5 Mg/Ml 1 Ml Vial) 5 mg IVP Q8HR PRN PRN Reason: Agitation or Acute Psychosis Last Admin: 06/13/24 03:01 Dose: 5 mg Heparin Sodium (Porcine) (Heparin Sodium,Porcine 5,000 Unit/Ml 1 Ml Vial) 5,000 unit SQ Q8HR [facility] Last Admin: 06/15/24 16:38 Dose: 5,000 unit Hydralazine HCl (Hydralazine Hcl 25 Mg Tab) 25 mg PO TID [facility] Last Admin: 06/15/24 16:39 Dose: 25 mg Daptomycin 350 mg/ Sodium (Chloride) 50 mls @ 100 mls/hr IVPB Q48H [facility]; Protocol Last Admin: 06/14/24 12:54 Dose: 100 mls/hr Piperacillin Sod/Tazobactam (Sod 3.375 gm/ Sodium Chloride) 100 mls @ 25 mls/hr IVPB Q12HR [facility]; Protocol Last Admin: 06/15/24 12:35 Dose: 25 mls/hr Insulin Aspart (Insulin Aspart (Novolog) 100 Unit/Ml Vial) 0 unit SQ Q6HR [facility]; Protocol Last Admin: 06/15/24 18:06 Dose: 8 unit Insulin Detemir (Insulin Detemir (Levemir) 100 Unit/Ml Syr) 30 unit SQ HS [facility] Last Admin: 06/14/24 20:32 Dose: 30 unit Isosorbide Mononitrate (Isosorbide Mononitrate Er 60 Mg Tab.Er.24h) 60 mg PO DAILY [facility] Last Admin: 06/15/24 09:22 Dose: Not Given Methylprednisolone Sodium Succinate (Methylprednisolone Sod Succi 40 Mg/Ml 1 Ml Vial) 40 mg IV Q8HR [facility] Last Admin: 06/15/24 16:39 Dose: 40 mg Metoprolol Succinate (Metoprolol Succinate (Er) 25 Mg Tab.Er.24h) 25 mg PO DAILY [facility] Last Admin: 06/15/24 09:19 Dose: Not Given Morphine Sulfate (Morphine Sulfate 2 Mg/Ml Syringe) 1 mg IVP Q4HR PRN PRN Reason: Pain/Discomfort Last Admin: 06/15/24 12:36 Dose: 1 mg Naloxone HCl (Naloxone 0.4 Mg/Ml 1 Ml Vial) 0.2 mg IV Q2M PRN PRN Reason: Opioid Reversal Collagenase 250 Unit /Gm Ointment 30 Gm Tube 1 each TOPICAL DAILY [facility]; Protocol Last Admin: 06/15/24 09:26 Dose: Not Given Pantoprazole Sodium (Pantoprazole 40 Mg/10 Ml Vial) 40 mg IVP DAILY [facility] Ranolazine (Ranolazine 500 Mg Tab.Er.12h) 500 mg PO Q12HR [facility] Last Admin: 06/15/24 09:19 Dose: Not Given Tamsulosin HCl (Tamsulosin 0.4 Mg Cap.Er.24h) 0.4 mg PO PC-BRKFST [facility] Last Admin: 06/15/24 09:18 Dose: Not Given Triamcinolone Acetonide (Triamcinolone Acet 0.5% Cream 15 Gm Tube) 1 applic TOPICAL BID PRN; Protocol PRN Reason: rash/dry skin Social history: Non-smoking. No alcohol. On examination: VITAL SIGNS: 97.4, 86, 22, 116 x 49, 100% on Airvo 50/50 GENERAL APPEARANCE: Reclining in bed, tired HEENT: Normal external appearance of nose and ear. Oral cavity normal EYES: Pupils equal. Conjunctiva normal. NECK: JVD not raised. Mass not palpable. RESPIRATORY: Respiratory effort normal lungs decreased breath sounds CARDIOVASCULAR: First and second sounds normal. Minimal edema in the right leg ABDOMEN: Soft. Liver and spleen not palpable. No tenderness. No right upper quadrant tenderness. No mass palpable. Colostomy bag with liquid stool PSYCHIATRY: Does answer simple questions. Does repeat the answers. Extremity: Right foot in dressing INVESTIGATIONS, reviewed in the clinical context: June 15: White count 9.4 hemoglobin 9.4 platelets 2 3 potassium 4.1 bicarb 25 BUN 32 creatinine 3.14 June 14: White count 16.2 hemoglobin 9.2 platelets 236 sodium 134 potassium 4.3 BUN 68 creatinine 3.26 June 13: White count 16.5 hemoglobin 9.3 platelets 273 sodium 135 potassium 4.7 BUN 38 creatinine 3.34 June 11: Potassium 4.9 BUN 108 creatinine 4.1 June 10: White count 12.8 hemoglobin 7.9 platelets 335 sodium 135 potassium 5.2 BUN 118 creatinine 4.1 June 04: White count 10.2 hemoglobin 10.4 platelet 374 sodium 135 potassium 4.6 BUN 66 creatinine 2.71 troponin I less than 0.012 proBNP 2550 EKG tracing personally reviewed by me-atrial fibrillation. Rate 68 Chest x-ray film personally reviewed by me-pulm edema Recent labs May 30: Potassium 4.7 BUN 42.3 creatinine 2.3 Assessment and plan: -Acute on chronic congestive heart failure exacerbation, from diastolic dysfunction EF 55 to 60%.: Better IV Lasix was given now discontinued Started on dialysis June 10.-Daily -Acute hypoxic respiratory failure from pulmonary edema: Not improving Initially BiPAP 12/6/90%. Now o Airvo 50/50 -COPD non-smoker DuoNeb 4 times daily. Nebulized Pulmicort -Chronic ostomy-functioning well -Chronic cephalgia. Patient stated headaches for greater than 6 months. Practically every day. Does not interfere with his eating. No exacerbating relieving factors: Possible tension headaches. CT scan of the brain shows some chronic changes MRI and MRI of the brain showing chronic changes. Seen by Dr. Gay from neurology a week ago. Further outpatient follow-up with neurology -Acute delirium/metabolic encephalopathy. Multifactorial: Some improvement -Right heel wound. Dry. Follows with Dr. Jernigan at the wound center. Dr. Carpenter from vascular-. Deep debridement carried recently Wound culture [May 29] MRSA, Proteus IV cefepime, daptomycin per ID -Chronic parastomal hernia #Hypertension: Amlodipine. Toprol-XL. Hydralazine -Acute kidney injury, likely cardiorenal: On hemodialysis Right femoral vein dialysis catheter placed by Dr. Carpenter on June 10. Hemodialysis started June 10-Daily -CKD likely nephrosclerosis, diabetic nephropathy Creatinine was 1.6 on April 28, 2024. -CAD with stent Toprol-XL -Anemia in the setting of chronic kidney disease. Iron deficiency anemia. Given IV iron -Primary osteoarthritis Pain medication as needed -History of prostate cancer with radiation and chemo in 2020. #Diabetes mellitus type II, chronically on insulin: Uncontrolled with hyperglycemia Increase Levemir to 20 units SQ every 12 #Hyperlipidemia: Lipitor #GERD: Protonix -Full code Discussed with at the bedside. Lasix has been discontinued. Patient will be attempted to sit up in a chair. On clear liquids. Increase Levemir to 20 units twice daily. Received dialysis today. Past Medical History Past Medical History: Cancer, Chest Pain / Angina, Diabetes Mellitus, Eye Disorder, GERD/Reflux, Hyperlipidemia, Hypertension, Osteoarthritis (OA), Prostate Disorder, Renal Disease Additional Past Medical History / Comment(s): HX OF ULCERATIVE COLITIS, ileostomy PARASTOMAL HERNIA, PROSTATE CA WITH RADIATION AND CHEMO IN 2020, LOW KIDNEY FUNCTION,Covid Dec 2022, Influenza A Jun 2023, eye condition, unsure of name. History of Any Multi-Drug Resistant Organisms: MRSA Date of last positivie culture/infection: 05/24/24 MDRO Source:: rt heel, scalp Past Surgical History: Appendectomy, Bowel Resection, Heart Catheterization, Heart Catheterization With Stent Additional Past Surgical History / Comment(s): COLECTOMY, RECTUM REMOVED, ELLIOTT CATARACTS removed, ILEOSTOMY, HERNIA SURGERY. Past Anesthesia/Blood Transfusion Reactions: No Reported Reaction Additional Past Anesthesia/Blood Transfusion Reaction / Comment(s): no problems with prior blood transfusions. Date of Last Stent Placement:: 08/01/2023 Past Psychological History: No Psychological Hx Reported Smoking Status: Never smoker Past Alcohol Use History: None Reported Past Drug Use History: None Reported
[2024-06-15] MEDS: INSULIN DETEMIR (LEVEMIR) 100 UNIT/ML SYR SQ SCH (21:18)
[2024-06-16 00:10] LABS: Glucose,Whole Blood 337 mg/dL (70-110)
[2024-06-16 05:11] LABS: Anisocytosis Slight; Basophils % (A) 0 %; Eosinophils # (A) 0.1 k/uL (0-0.7); Eosinophils % (A) 1 %; HCT 32.3 % (39.0-53.0); HGB 10.1 gm/dL (13.0-17.5); Hypochromasia Marked; Lymphocytes # (A) 0.2 k/uL (1.0-4.8); Lymphocytes % (A) 2 %; MCH 30.8 pg (25.0-35.0); MCHC 31.3 g/dL (31.0-37.0); MCV 98.5 fL (80.0-100.0); Macrocytosis Slight; Monocytes # (A) 0.6 k/uL (0-1.0); Monocytes % (A) 5 %; Neutrophils # (A) 11.4 k/uL (1.3-7.7); Neutrophils % (A) 92 %; Platelet Count 202 k/uL (150-450); RBC 3.28 m/uL (4.30-5.90); WBC 12.4 k/uL (3.8-10.6)
[2024-06-16 05:25] LABS: African American GFR (CKD) 22 (>60 ml/min/1.73 sqM); Anion Gap 15 mmol/L; Blood Urea Nitrogen 72 mg/dL (9-20); Calcium 8.8 mg/dL (8.4-10.2); Carbon Dioxide 21 mmol/L (22-30); Chloride 92 mmol/L (98-107); Glucose 330 mg/dL (74-99); Non-African American GFR(CKD) 19 (>60 ml/min/1.73 sqM); Potassium 4.4 mmol/L (3.5-5.1); Sodium 128 mmol/L (137-145)
[2024-06-16 05:39] LABS: Glucose,Whole Blood 312 mg/dL (70-110)
--- NOTE | 2024-06-16 07:16 | XR ---
EXAMINATION TYPE: XR chest 1V portable DATE OF EXAM: 06/16/2024 5:15 AM COMPARISON: Chest radiograph from one day prior. CLINICAL INDICATION: Male, 73 years old with history of disease progression; [facility] TECHNIQUE: XR chest 1V portable Frontal view of the chest. FINDINGS: Lungs/Pleura: Similar multifocal airspace opacities. No evidence of pneumothorax or pleural effusion. Pulmonary vascularity: Unremarkable. Heart/mediastinum: Cardiomediastinal silhouette is enlarged and stable. Musculoskeletal: No acute osseous pathology. IMPRESSION: Similar multifocal airspace opacities [facility] Daja Scott, , 06/16/2024 7:14 AM
[2024-06-16] MEDS: PANTOPRAZOLE 40 MG/10 ML VIAL IVP SCH (09:04)
--- NOTE | 2024-06-16 10:47 | P.PN ---
Subjective Progress Note Date: 06/16/24 Patient is a 73-year-old male with past medical history significant for hypertension, hyperlipidemia, coronary artery disease with previous PCI/stenting, heart failure, chronic kidney disease, diabetes mellitus, chronic right heel wound, ulcerative colitis with previous colectomy and ileostomy. Of note, patient had a recent hospitalization late May and was just discharged 05/31/2024 for CHF exacerbation. Echocardiogram done during this hospitalization estimating a preserved left ventricular ejection fraction of 55 to 60%. Limited study, but no acute valvular abnormalities reported. Presented the emergency department on 06/04/2024 with a chief complaint of shortness of breath, mostly on exertion. Chest x-ray showing cardiomegaly, mild pulmonary vascular congestion, and a small pleural effusion on the left. NT proBNP elevated 2550. Currently receiving Lasix 80 mg twice daily. CBC: WBC count 10.2, hemoglobin 10.4, hematocrit 32.5, platelets 374. CMP: Sodium 135, potassium 4.6, chloride 101, serum bicarb 18, BUN 66, creatinine 2.71, glucose 139. Troponin is less than 0.012. Patient currently being evaluated on the general medical floor. Appears weak and deconditioned. He is resting in bed on 1 L/min nasal cannula. No respiratory distress noted. Complaining of a generalized headache, which he states is chronic. States that he has been short of breath on exertion for several months to almost 1 year. Particularly on exertion such as climbing stairs or walking to the bathroom. Denies history of COPD or asthma. Never tobacco smoker. Worked in an [employer] shop before he retired. Denies cough. Denies infectious-like symptoms. Current vital signs: Temperature 98 F, heart rate 78 bpm, blood pressure 145/54 mmHg, nontachypneic, SpO2 recorded at 91% on 1 L/min nasal cannula. The patient is seen today June 07, 2024 in follow-up on the regular medical floor. He is awake and alert in no acute distress. Sitting up at the bedside. Maintaining O2 saturations in the 90s on 3 L/min per nasal cannula. White count 9.8. Hemoglobin 8.9. Platelets 366. Sodium 140. Potassium 4.7. Bicarb 22. BUN 60. Creatinine 2.4. Glucose 97. He remains on DuoNeb and elations, Pulmicort inhalations. Lasix 80 mg IV every 12 hours. He is currently -1.1 L balance. Antibiotics in the form of cefepime and daptomycin for his diabetic ulcer of the right foot. X-ray revealed no osseous erosion or acute fracture. The patient is seen today June 08, 2024 in follow-up on the regular medical floor. He did have issues with worsening shortness of breath. He is currently on BiPAP 12/6 and 40% FiO2. White count 6.3. Hemoglobin 8.5. Platelets 357. Sodium 136. Potassium 5.8. Bicarb 21. BUN 64. Creatinine 2.4. Glucose 178. Chest x-ray continues to show evidence of congestive heart failure. He is currently on Lasix 80 mg IV every 12 hours. Continued on bronchodilators and steroids. Remains on antibiotics in the form of cefepime and daptomycin. The patient is seen today June 09, 2024 in follow-up on the regular medical floor. He is currently resting comfortably in bed. Awake and alert in no acute distress. Breathing easier today compared to yesterday. He is currently on BiPAP 12/6 and 40% FiO2. White count 10.1. Hemoglobin 8.0. Platelets 339. Sodium 136. Potassium 5.8. Bicarb 21. BUN 94. Creatinine 3.4. Glucose 234. He remains on DuoNeb and elations, Pulmicort inhalations, Solu-Medrol. Remains on IV diuretics. Remains on cefepime and daptomycin. Receiving Lokelma. The patient is seen today June 10, 2024 in follow-up on the regular medical floor. He is currently sitting up at the bedside. Awake and alert in no acute distress. He is requiring BiPAP support at 12/6 and 60% FiO2. Alternating with oxygen at 4 L/min per nasal cannula. He is continued on DuoNeb inhalations, Pulmicort inhalations, Solu-Medrol. He remains on antibiotics in the form of cefepime and daptomycin. Receiving iron supplement. Continued on IV diuretics. Continued on sodium bicarb tablets. White count 12.8. Hemoglobin 7.9. Platelets 335. Sodium 135. Potassium 5.2. Bicarb 23. BUN 118. Creatinine 4.1. Glucose 131. Plan is for placement of a hemodialysis catheter today and to receive hemodialysis today and tomorrow per nephrology. The patient is seen today June 12, 2024 in follow-up in the intensive care unit. He was transferred here last evening as his oxygen requirements increased. He is currently on BiPAP 12/6 and 90% FiO2. Arterial blood gases revealed a PaO2 of 60, pCO2 39 and a pH of 7.44. Chest x-ray continues to show diffuse bilateral airspace disease. Blood culture revealed no growth. White count 15.8. Hemoglobin 8.4. Platelets 257. Sodium 135. Potassium 4.4. Bicarb 23. BUN 90. Creatinine 3.51. Glucose 165. proBNP 7440. Procalcitonin pending. He is continued on daptomycin and Zosyn. Remains on Lasix 80 mg IV every 12 hours. Oertli in a -4 L balance. He did receive hemodialysis yesterday and again today 2 L removed each time. He is continued on DuoNeb and elations, Pulmicort inhalations. Solu-Medrol. The patient is seen today June 13, 2024 in follow-up in the intensive care unit. He remains mostly BiPAP dependent currently on 12/6 and 90% FiO2. No IV fluids. The plan is for hemodialysis again today which will be day #4 with approximately 2 L removed each time. Chest x-ray is showing evidence of acute respiratory distress syndrome. His PF ratio is 66 indicating severe ARDS. Blood culture revealed no growth. White count 16.5. Hemoglobin 9.3. Platelets 273. Sodium 135. Potassium 4.7. Bicarb 25. BUN 78. Creatinine 3.34. Glucose 211. Procalcitonin is elevated at 4.78. He remains on DuoNeb inhalations, Pulmicort inhalations, Solu-Medrol. Remains on daptomycin and Zosyn. Remains on Lasix 80 mg IV every 12 hours. Currently in a -4 L balance. Heparin for DVT prophylaxis. Protonix for GI prophylaxis. The patient is seen today June 14, 2024 in follow-up in the intensive care unit. He is awake and alert in no acute distress. He remains on BiPAP 12/6 and 60% FiO2. He is receiving hemodialysis again today with a goal of 2 to 2-1/2 L to be removed. His chest x-ray is showing improvement. Microbiology reveals no growth. He remains on Zosyn. Procalcitonin was 4.78. He has normal saline at KVO. White count 16.2. Hemoglobin 9.2. Platelets 236. Sodium 134. Potassium 4.3. Bicarb 27. BUN 68. Creatinine 3.26. Glucose 210. He remains on DuoNeb inhalations, Pulmicort inhalations, IV Solu-Medrol. He remains on daptomycin and Zosyn. He remains on Lasix 80 mg IV every 12 hours. Currently in a -7.8 L balance. Heparin for DVT prophylaxis. He did undergo debridement with surgical open necrotic tissue of the right heel for diabetic Walter grade 2 ulceration. The patient is seen today June 15, 2024 in follow-up in the intensive care unit. He is currently sitting up in bed. Awake and alert in no acute distress. He is continued on BiPAP 12/6 and 50% FiO2. He is alternating with Airvo high flow oxygen at 50 L and 60% FiO2. Chest x-ray showing improved aeration. He received hemodialysis yesterday with another 2-1/2 L removed. The plan is for hemodialysis again today. He has normal staying at [facility]. He remains on daptomycin and Zosyn. He remains on DuoNeb and elations, Pulmicort inhalations, Solu-Medrol. Heparin for DVT prophylaxis. Remains on Lasix 80 mg IV every 12 hours. White count 9.4. Hemoglobin 9.4. Platelets 203. Sodium 131. Potassium 4.1. Bicarb 25. BUN 72. Creatinine 3.14. Glucose 299. The patient is seen today June 16, 2024 in follow-up in the intensive care unit. He is currently sitting up in bed. Awake and alert in no acute distress. He is maintaining good O2 saturations in the 90s on Airvo high flow oxygen at 50 L and 50% FiO2. He has been off BiPAP for over 24 hours. He received hemodialysis yesterday with 2.5 L removed. The plan is for hemodialysis t omorrow. Chest x-ray shows similar bilateral airspace opacities. Blood culture revealed no growth. White count 12.4. Hemoglobin 10.1. Platelets 202. Sodium 128. Potassium 4.4. Bicarb 21. BUN 72. Creatinine 3.11. Glucose 330. He remains on DuoNeb inhalations, Pulmicort inhalations. Heparin for DVT prophylaxis. Remains on IV Solu-Medrol. Remains on Zosyn. Objective - Vital Signs Vital signs: Vital Signs Temp 97.5 F L 06/16/24 08:00 Pulse 75 06/16/24 09:00 Resp 12 06/16/24 09:00 BP 121/50 06/16/24 09:00 Pulse Ox 96 06/16/24 09:00 FiO2 50 06/16/24 09:00 Intake & Output 06/15/24 06/16/24 06/16/24 18:59 06:59 18:59 Intake Total 3600 1000 150 Output Total 2900 0 0 Balance 700 1000 150 Weight 98.2 kg Intake: IV 200 100 50 DAPTOmycin 350 mg In 50 Sodium Chloride 0.9% 50 ml @ 100 mls/hr IVPB Q48H [facility] Rx#:[id number] Piperacillin-Tazobactam 3 100 100 .375 gm In Sodium Chloride 0.9% 100 ml @ 25 mls/hr IVPB Q12HR [facility] Rx #:[id number] Sodium Chloride 0.9% 1000 100 mL @ 10 mLs/hr Oral 500 Tube Feeding 900 100 Hemodialysis 2900 Output: Urine 0 0 0 Hemodialysis 400 Hemodialysis Net Amount 2500 Other: Voiding Method Indwelling Catheter Indwelling Catheter - Exam GENERAL EXAM: Awake, alert 73-year-old obese male, on Airvo high flow oxygen at 50 L and 50% FiO2. HEAD: Normocephalic and atraumatic EYES: Normal reaction of pupils, equal size. NOSE: Clear with pink turbinates. THROAT: No erythema or exudates. NECK: No masses, no JVD. CHEST: No chest wall deformity. LUNGS: Equal air entry with diminished lung sounds throughout. Crackles in the bilateral bases. CVS: S1 and S2 normal with no audible murmur, regular rhythm. No extra heart sounds ABDOMEN: No hepatosplenomegaly, active bowel sounds, no guarding or rigidity. Functional ileostomy SPINE: No scoliosis or deformity SKIN: Generalized erythemic plaques involving upper extremities, chest, back CENTRAL NERVOUS SYSTEM: No focal deficits, tone is normal in all 4 extremities. EXTREMITIES: Right foot is wrapped with a bandage. There is 1-2+ peripheral edema. Peripheral pulses are intact. - Labs CBC & Chem 7: 06/16/24 04:52 06/16/24 04:52 Labs: Abnormal Lab Results - Last 24 Hours (Table) 06/15/24 06/15/24 06/16/24 Range/Units 11:47 18:03 00:08 WBC (3.8-10.6) k/uL RBC (4.30-5.90) m/uL Hgb (13.0-17.5) gm/dL Hct (39.0-53.0) % RDW (11.5-15.5) % Neutrophils # (1.3-7.7) k/uL Lymphocytes # (1.0-4.8) k/uL Sodium (137-145) mmol/L Chloride (98-107) mmol/L Carbon Dioxide (22-30) mmol/L BUN (9-20) mg/dL Creatinine (0.66-1.25) mg/dL Glucose (74-99) mg/dL POC Glucose (mg/dL) 169 H 330 H 337 H (70-110) mg/dL 06/16/24 06/16/24 06/16/24 Range/Units 04:52 04:52 05:37 WBC 12.4 H (3.8-10.6) k/uL RBC 3.28 L (4.30-5.90) m/uL Hgb 10.1 L (13.0-17.5) gm/dL Hct 32.3 L (39.0-53.0) % RDW 17.0 H (11.5-15.5) % Neutrophils # 11.4 H (1.3-7.7) k/uL Lymphocytes # 0.2 L (1.0-4.8) k/uL Sodium 128 L (137-145) mmol/L Chloride 92 L (98-107) mmol/L Carbon Dioxide 21 L (22-30) mmol/L BUN 72 H (9-20) mg/dL Creatinine 3.11 H (0.66-1.25) mg/dL Glucose 330 H (74-99) mg/dL POC Glucose (mg/dL) 312 H (70-110) mg/dL Microbiology - Last 24 Hours (Table) 06/13/24 09:39 Blood Culture - Preliminary Blood Assessment and Plan Assessment: Acute exacerbation of diastolic congestive heart failure Severe acute respiratory distress syndrome, improving currently on Airvo high flow oxygen Acute hypoxemic respiratory failure, secondary to above Acute on chronic kidney disease now requiring renal replacement therapy that started June 10, 2024 Hyperkalemia, improved Acute on chronic anemia secondary to above, current hemoglobin 10.1 History of CAD with previous PCI Diabetes mellitus with hyperglycemia Hypertension History of hyperlipidemia Chronic cephalgia History of UC with previous colectomy and ileostomy History of prostate cancer status post chemoradiation Chronic right heel wound, status post debridement on 05/28/2024 again today June 14, 2024 Obesity, with a BMI of 38.8 kg/m Never tobacco smoker Plan: The patient was seen and evaluated Chest x-ray,labs and medications reviewed Remains on Airvo high flow oxygen at 50 L and 50% FiO2 Continue bronchodilators, steroids Continue daptomycin and Zosyn Heparin for DVT prophylaxis Protonix for GI prophylaxis Plan is for hemodialysis tomorrow We will continue to follow I have personally seen and examined the patient, performed the documentation and the assessment and plan as written. Number of minutes spent on the visit: 20 Dictation was produced using [employer] dictation software. Please excuse any grammatical, word or spelling errors.
[2024-06-16 11:39] LABS: Glucose,Whole Blood 334 mg/dL (70-110)
--- NOTE | 2024-06-16 15:48 | P.PN ---
Subjective Progress Note Date: 06/16/24 HISTORY OF PRESENT ILLNESS: This is 73-year-old male patient of Dr. Bales with past medical history of co ronary artery disease status post PCI of the LAD and second diagonal branch, known severe disease involving the OM1, heart failure with preserved EF, diabetes, hypertension, dyslipidemia, chronic kidney disease, dilated ascending aorta, history of colectomy and overweight. We have been asked to evaluate the patient for CHF. Patient was recently hospitalized 05/28 - 05/31 and was treated for CHF and acute kidney injury. Patient states that when he went home he did not feel any better related to shortness of breath and when he had come in. He states he continues to have shortness of breath which is worsening and also has a little lightheadedness and dizziness. He complains of chest pain across the mid chest and also some left lower abdominal pain. He denies cough but he states in the morning he has sputum production. No significant lower extremity edema. He does have a chronic wound to the right foot with the boot in place. Blood pressure 121/61, heart rate 69, pulse ox 96% on 2 and half liters nasal cannula. Patient has been started on IV Lasix 80 mg every 12 hours. -EKG: Atrial fibrillation [address] changes -Chest x-ray: Correlate for volume overload -Laboratory studies: WBC 10.2, hemoglobin 10.4, platelet count 374. Sodium 135, potassium 4.6, BUN 66 and creatinine 2.71. Troponin negative x 1. proBNP 2550. -Home cardiac medications: Amlodipine 10 mg daily, aspirin 81 mg daily, atorvastatin 40 mg daily, Plavix 75 mg daily, Farxiga 10 mg daily, hydralazine 25 mg 3 times daily, Imdur 60 mg daily, Toprol XL 25 mg daily, Ranexa 500 mg every 12 hours, Demadex 40 mg daily. -Echocardiogram from 05/28/2024 revealed technical difficult study minimal mitral and tricuspid regurgitation. No pericardial effusion. -Cardiac catheterization history: April 26, 2024 revealing patent stent in the mid LAD. Late stent thrombosis of the second diagonal branch of the LAD, severe disease involving OM1 appeared unchanged compared to before, attempted balloon angioplasty was performed of second diagonal branch with suboptimal results June 09, 2024 The patient was seen and evaluated this morning. Unfortunately the kidney function is worse. He is still in failure now requiring BiPAP. The chest x-ray from yesterday showed finding consistent with failure. He continues to be on Lasix IV. Nephrology team is on the case. The physical examination is remarkable for regular rhythm wit diminished breathing sounds bilaterally and mild bilateral expiratory wheezing and mild bilateral lower extremities edema. Beside that he is hyperkalemic that is under treatment at this point. 06/10/2024 Patient examined this morning at the bedside. Patient currently reports shortness of breath. He remains on IV Lasix. He denies any chest pain or pressure. Creatinine is worsening today at 4.1. Patient states that he spoke with nephrology this morning and plan is to begin hemodialysis today. 06/11 Patient seen and examined Patient is preparing to have his second dialysis treatment this morning. He is on 100% BiPAP pulse ox 92%. Blood pressure 129/58, heart rate 70. No repeat blood work today. 06/12/2024 Patient is seen and examined at bedside this a.m. Patient is maintained on BiPAP support, saturating 92%. Hemodynamically stable. EKG shows sinus rhythm on telemetry. 06/13/2024, Seen and examined at bedside this a.m. Patient is BiPAP dependent and is not able to tolerate removal of BiPAP even for food and medications. BP 120/50, heart rate 80 bpm, sinus rhythm on telemetry, 95% saturation on BiPAP support Minimal urine output chest x-ray shows significant pulmonary edema suggestive of volume overload. Would recommend continuing fluid removal with hemodialysis and hold his antihypertensives before his hemodialysis so that more volume can be removed during dialysis session. 06/14/24 Patient is getting hemodialysis, fluid status appears to be improved. Still on continuous BiPAP support . 06/15/2024 Patient noticed to be hypotensive today after hemodialysis. We will hold his antihypertensives. Patient has had significant negative fluid balance with continuous hemodialysis in last 2 days. I would recommend reducing the amount of ultrafiltrate as I feel that patient is now getting towards more dehydration. 06/16/2024 Patient was transferred out of ICU to 3 S. floor today. Anticipated hemodialysis tomorrow. Minimal urine output. Lawson catheter is out. Blood pressure systolic around 110, continues to be in sinus rhythm on telemetry. He was hypotensive yesterday. Today blood pressure is better. PHYSICAL EXAM: VITAL SIGNS: Reviewed. GENERAL: Well-developed in no acute distress. NECK: Supple. No JVD or thyromegaly LUNGS: Mild wheezing and crackles audible, on high flow nasal cannula HEART: Regular rate and rhythm. S1 and S2 heard. EXTREMITIES: 1+ pitting edema bilateral lower extremity. Skin changes in bi lateral lower extremity from chronic edema. ASSESSMENT: Acute hypoxic respiratory failure Acute on chronic diastolic heart failure Oliguric ATN, Acute kidney injury and chronic kidney disease, patient started HD on 06/10 History of coronary artery disease with PCI of the LAD and second diagonal with known severe disease involving the OM1 Nonhealing right heel wound with concerns of infection on antibiotics. Diabetes Hypertension Dyslipidemia Dilated ascending aorta History of colectomy PLAN: diuretics and hemodialysis as per nephrology. I would recommend reducing the amount of ultrafiltrate because patient is now getting hypotensive and clinically appears more volume optimized. Last 5 days patient has had -13 L of ultrafiltrate removal. Hold antihypertensives if SBP less than 100 mmHg. Hold antihypertensives before his hemodialysis tomorrow. Reduce amlodipine to 5 mg daily Continue other cardiac medications: Amlodipine 5 mg daily, aspirin 81 mg daily, atorvastatin 40 mg daily, Plavix 75 mg daily, hydralazine 25 mg 3 times daily, Imdur 60 mg daily, Toprol XL 25 mg daily, Ranexa 500 mg twice daily Objective - Vital Signs Vital signs: Vital Signs Temp 97.5 F L 06/16/24 08:00 Pulse 84 06/16/24 14:00 Resp 20 06/16/24 14:00 BP 117/54 06/16/24 14:00 Pulse Ox 91 L 06/16/24 14:00 FiO2 45 06/16/24 14:00 Intake & Output 06/15/24 06/16/24 06/16/24 18:59 06:59 18:59 Intake Total 3600 1000 150 Output Total 2900 0 0 Balance 700 1000 150 Weight 98.2 kg Intake: IV 200 100 50 DAPTOmycin 350 mg In 50 Sodium Chloride 0.9% 50 ml @ 100 mls/hr IVPB Q48H [facility] Rx#:[id number] Piperacillin-Tazobactam 3 100 100 .375 gm In Sodium Chloride 0.9% 100 ml @ 25 mls/hr IVPB Q12HR [facility] Rx #:[id number] Sodium Chloride 0.9% 1000 100 mL @ 10 mLs/hr Oral 500 Tube Feeding 900 100 Hemodialysis 2900 Output: Urine 0 0 0 Hemodialysis 400 Hemodialysis Net Amount 2500 Other: Voiding Method Indwelling Catheter Indwelling Catheter Urinal - Labs CBC & Chem 7: 06/16/24 04:52 06/16/24 04:52 Labs: Abnormal Lab Results - Last 24 Hours (Table) 06/15/24 06/16/24 06/16/24 Range/Units 18:03 00:08 04:52 WBC 12.4 H (3.8-10.6) k/uL RBC 3.28 L (4.30-5.90) m/uL Hgb 10.1 L (13.0-17.5) gm/dL Hct 32.3 L (39.0-53.0) % RDW 17.0 H (11.5-15.5) % Neutrophils # 11.4 H (1.3-7.7) k/uL Lymphocytes # 0.2 L (1.0-4.8) k/uL Sodium (137-145) mmol/L Chloride (98-107) mmol/L Carbon Dioxide (22-30) mmol/L BUN (9-20) mg/dL Creatinine (0.66-1.25) mg/dL Glucose (74-99) mg/dL POC Glucose (mg/dL) 330 H 337 H (70-110) mg/dL 06/16/24 06/16/24 06/16/24 Range/Units 04:52 05:37 11:37 WBC (3.8-10.6) k/uL RBC (4.30-5.90) m/uL Hgb (13.0-17.5) gm/dL Hct (39.0-53.0) % RDW (11.5-15.5) % Neutrophils # (1.3-7.7) k/uL Lymphocytes # (1.0-4.8) k/uL Sodium 128 L (137-145) mmol/L Chloride 92 L (98-107) mmol/L Carbon Dioxide 21 L (22-30) mmol/L BUN 72 H (9-20) mg/dL Creatinine 3.11 H (0.66-1.25) mg/dL Glucose 330 H (74-99) mg/dL POC Glucose (mg/dL) 312 H 334 H (70-110) mg/dL Microbiology - Last 24 Hours (Table) 06/13/24 09:39 Blood Culture - Preliminary Blood
[2024-06-16 16:44] LABS: Glucose,Whole Blood 443 mg/dL (70-110)
--- NOTE | 2024-06-16 16:49 | P.PN ---
Subjective Progress Note Date: 06/16/24 Principal diagnosis: Reason for follow-up is right heel diabetic foot ulcer with MRSA infection Patient is a 73-year-old male with a past medical history significant for diabetes mellitus hypertension hyperlipidemia osteomyelitis patient has been dealing with a chronic nonhealing wound to the right heel area for months now and is being treated in outpatient setting by Dr. Jernigan his construction site manager with recent outpatient culture positive for MRSA and is Proteus. On today's evaluation that is 06/16/2024, Patient is afebrile patient is currently on high flow Airvo 45% FiO2 patient has received morphine is currently sleepy no vomiting diarrhea and the changes reported by the family at the bedside. Patient white count is 12.4, creatinine 3.11 blood culture has been negative Objective - Vital Signs Vital signs: Vital Signs Temp 97.7 F 06/16/24 16:00 Pulse 82 06/16/24 16:22 Resp 22 06/16/24 16:00 BP 116/56 06/16/24 16:00 Pulse Ox 93 L 06/16/24 16:00 FiO2 45 06/16/24 16:11 Intake & Output 06/15/24 06/16/24 06/16/24 18:59 06:59 18:59 Intake Total 3600 1000 150 Output Total 2900 0 0 Balance 700 1000 150 Weight 98.2 kg Intake: IV 200 100 50 DAPTOmycin 350 mg In 50 Sodium Chloride 0.9% 50 ml @ 100 mls/hr IVPB Q48H [facility] Rx#:[id number] Piperacillin-Tazobactam 3 100 100 .375 gm In Sodium Chloride 0.9% 100 ml @ 25 mls/hr IVPB Q12HR [facility] Rx #:[id number] Sodium Chloride 0.9% 1000 100 mL @ 10 mLs/hr Oral 500 Tube Feeding 900 100 Hemodialysis 2900 Output: Urine 0 0 0 Hemodialysis 400 Hemodialysis Net Amount 2500 Other: Voiding Method Indwelling Catheter Indwelling Catheter Urinal - Exam GENERAL DESCRIPTION: An elderly male lying in bed in no distress RESPIRATORY SYSTEM: Unlabored breathing , decreased breath sounds at bases HEART: S1 S2 regular rate and rhythm , ABDOMEN: Soft , no tenderness EXTREMITIES: Right heel is currently dressed - Labs CBC & Chem 7: 06/16/24 04:52 06/16/24 04:52 Labs: Abnormal Lab Results - Last 24 Hours (Table) 06/15/24 06/16/24 06/16/24 Range/Units 18:03 00:08 04:52 WBC 12.4 H (3.8-10.6) k/uL RBC 3.28 L (4.30-5.90) m/uL Hgb 10.1 L (13.0-17.5) gm/dL Hct 32.3 L (39.0-53.0) % RDW 17.0 H (11.5-15.5) % Neutrophils # 11.4 H (1.3-7.7) k/uL Lymphocytes # 0.2 L (1.0-4.8) k/uL Sodium (137-145) mmol/L Chloride (98-107) mmol/L Carbon Dioxide (22-30) mmol/L BUN (9-20) mg/dL Creatinine (0.66-1.25) mg/dL Glucose (74-99) mg/dL POC Glucose (mg/dL) 330 H 337 H (70-110) mg/dL 06/16/24 06/16/24 06/16/24 Range/Units 04:52 05:37 11:37 WBC (3.8-10.6) k/uL RBC (4.30-5.90) m/uL Hgb (13.0-17.5) gm/dL Hct (39.0-53.0) % RDW (11.5-15.5) % Neutrophils # (1.3-7.7) k/uL Lymphocytes # (1.0-4.8) k/uL Sodium 128 L (137-145) mmol/L Chloride 92 L (98-107) mmol/L Carbon Dioxide 21 L (22-30) mmol/L BUN 72 H (9-20) mg/dL Creatinine 3.11 H (0.66-1.25) mg/dL Glucose 330 H (74-99) mg/dL POC Glucose (mg/dL) 312 H 334 H (70-110) mg/dL 06/16/24 Range/Units 16:42 WBC (3.8-10.6) k/uL RBC (4.30-5.90) m/uL Hgb (13.0-17.5) gm/dL Hct (39.0-53.0) % RDW (11.5-15.5) % Neutrophils # (1.3-7.7) k/uL Lymphocytes # (1.0-4.8) k/uL Sodium (137-145) mmol/L Chloride (98-107) mmol/L Carbon Dioxide (22-30) mmol/L BUN (9-20) mg/dL Creatinine (0.66-1.25) mg/dL Glucose (74-99) mg/dL POC Glucose (mg/dL) 443 H (70-110) mg/dL Microbiology - Last 24 Hours (Table) 06/13/24 09:39 Blood Culture - Preliminary Blood Assessment and Plan (1) Diabetic infection of right foot Current Visit: Yes Status: Acute Code(s): E11.628 - TYPE 2 DIABETES MELLITUS WITH OTHER SKIN COMPLICATIONS; L08.9 - LOCAL INFECTION OF THE SKIN AND SUBCUTANEOUS TISSUE, UNSP SNOMED Code(s): 693527615 (2) MRSA (methicillin resistant staph aureus) culture positive Current Visit: Yes Status: Acute Code(s): Z22.322 - CARRIER OR SUSPECTED CARRIER OF METHICILLIN RESIS STAPH SNOMED Code(s): 505939776 (3) Diabetic ulcer of right foot Current Visit: No Status: Acute Code(s): E11.621 - TYPE 2 DIABETES MELLITUS WITH FOOT ULCER; L97.519 - NON-PRS CHRONIC ULCER OTH PRT RIGHT FOOT W UNSP SEVERITY SNOMED Code(s): 888036373 (4) Stage III pressure ulcer of right heel Current Visit: No Status: Acute Code(s): L89.613 - PRESSURE ULCER OF RIGHT HEEL, STAGE 3 SNOMED Code(s): 74181989165066 Plan: 1patient with a chronic nonhealing wound to the right heel which he has for couple of months the wound looks deep with a recent culture positive for Proteus and MRSA concerning for wound infection and question for possible deeper infection such as osteomyelitis as wound has been there for couple of months now 2- x-rays of the right heel with no evidence of any bony changes 3-patient has been evaluated by Dr. Carpenter and did have surgical debridement completed on 06/07/2024 and did have a further debridement at the bedside by his construction site manager on 06/14/2024 4-patient remains to be afebrile white count is slightly up today will be monitored closely for now continue with Zosyn and daptomycin Family at bedside question answered Dictation was produced using [employer] dictation software. please excuse any grammatical, word or spelling errors. Time with Patient: Less than 30
--- NOTE | 2024-06-16 17:29 | P.PN ---
Progress Note - Text Progress Note Date: 06/16/24 Chief Complaint: Short of breath Pleasant 73-year-old patient follows with Dr. Dennis. Pacu Rn: Dr. Bales Chronic medical conditions include hypertension, hyperlipidemia, type 2 diabetes, mood disorder, and CAD , ostomy for 25 years, July 2023 stent to the LAD and second diagonal branch by Dr. Bales. April 26, [address] Bales: Following a non-ST relation IN: Patent stent to mid LAD. Late stent thrombosis of the second diagonal branch of the LAD. Severe disease involving the OM1 appears unchanged. Attempted balloon angioplasty performed to the second of diagonal branch with suboptimal results. Dose of Imdur was increased and Ranexa was added. Patient recently in the hospital from May 28 through May 31. Chronic headaches: MRI unremarkable. MR angio head and neck: MR angio head without contrast: No evidence of aneurysm or significant stenosis. Atrophic right A1 segment. origin of the right posterior cerebral artery.MRI of the brain nonspecific. Was seen by neurology Dr. Gay. Patient to follow-up outpatient Chronic right heel wound seen by Dr. Carpenter from vascular deep debridement was carried out. No need for antibiotics. Patient to follow-up with Dr. Jernigan at the wound center. Shortness of breath: Was seen by cardiology. Not for any further intervention. Patient doing well when discharged. Patient presented increased shortness of breath when at home. His pulse ox dropped out of the 80s. Increasing shortness of breath. Decreased appetite. No fever or chills. June 10: Using his BiPAP. Patient seen this morning. Later this afternoon. Right femoral vein dialysis catheter was placed by Dr. Carpenter from vascular for dialysis. Baseline some shortness of breath. Due for first dialysis today. Patient is right heel culture grew MRSA Proteus P Corynebacterium on May 29. Patient is on IV daptomycin and IV cefepime per ID. June 11: Patient seen this afternoon. On BiPAP. Getting hemodialysis. Remains on IV daptomycin IV Zosyn. Tired. Also getting IV iron. Patient really did not eat today. Because of BiPAP. Cut back Levemir to 26 units at night. DC scheduled NovoLog for now. June 12: Overflowing the ICU. Remains on BiPAP. 04/05/90%. at the bedside. Remains on IV daptomycin and IV Zosyn. For dialysis today. X-ray continues shows infiltrates. Significantly hypoxic. N.p.o. June 13: ICU. Remains on BiPAP. 12/6/90% moderate take anything by mouth. Spoke to the nurse have TPN lipids ordered. Remains on IV daptomycin IV Zosyn. Chest x-ray continues to show diffuse infiltrates. Continues to be followed by cardiology pulmonary ID nephrology. June 14: ICU. Later this afternoon patient was put on Airvo. 60/60. Has some delirium. Remains on IV daptomycin and IV Zosyn. Had 2 L ultrafiltration yesterday. Patient getting daily dialysis for now. As patient is oliguric per nephrology Lasix has been held. TPN was ordered yesterday per the nurse culture that returned to feed the patient. Will see how that goes. Dietitian on the case. June 15: ICU. Patient be getting hypotensive. Some medications held back by cardiology. Hemodialysis done today. Patient remains on Airvo though at 50/50. at the bedside. Plans this afternoon to get him up in the chair. Remains on daptomycin and IV Zosyn. IV Lasix been discontinued. Patient tolerating some liquid diet. June 16: Patient moved to the ICU. Remains on Airvo. 45/45. at the bedside. Tolerating full liquids. Spoke to the about the morphine. His headaches are chronic. Use Fioricet as needed. Remains on IV daptomycin and IV Zosyn. IV Solu-Medrol. Amlodipine dose cut back. PT OT. Active Medications Acetaminophen (Acetaminophen Tab 325 Mg Tab) 650 mg PO Q6HR PRN PRN Reason: Mild Pain or Fever > 100.5 Acetaminophen/Butalbital/Caffeine (Butalb/Apap/Caff 50-325-40mg Tab) 1 each PO Q4H PRN PRN Reason: Migraine Headache Albuterol/Ipratropium (Ipratropium-Albuterol 3 Ml Neb) 3 ml INHALATION RT-QID [facility] Last Admin: 06/16/24 16:09 Dose: 3 ml Albuterol/Ipratropium (Ipratropium-Albuterol 3 Ml Neb) 3 ml INHALATION RT-QID PRN PRN Reason: Shortness Of Breath Or Wheezing Allopurinol (Allopurinol 100 Mg Tab) 100 mg PO DAILY [facility] Last Admin: 06/16/24 09:03 Dose: 100 mg Amlodipine Besylate (Amlodipine 5 Mg Tab) 5 mg PO DAILY [facility] Aspirin (Aspirin 81 Mg) 81 mg PO DAILY [facility] Last Admin: 06/16/24 09:04 Dose: 81 mg Atorvastatin Calcium (Atorvastatin 40 Mg Tab) 40 mg PO DAILY [facility] Last Admin: 06/16/24 09:04 Dose: 40 mg Budesonide (Budesonide 1 Mg/2 Ml Nebu) 1 mg INHALATION RT-BID [facility] Last Admin: 06/16/24 07:45 Dose: 1 mg Calcitriol (Calcitriol 0.25 Mcg Cap) 0.25 mcg PO Mo@0900 [facility] Last Admin: 06/10/24 10:33 Dose: 0.25 mcg Clopidogrel Bisulfate (Clopidogrel 75 Mg Tab) 75 mg PO DAILY [facility] Last Admin: 06/16/24 09:04 Dose: 75 mg Collagenase (Collagenase 250 Unit/Gm Ointment 30 Gm Tube) 1 applic TOPICAL DAILY [facility]; Protocol Last Admin: 06/16/24 13:44 Dose: 1 applic Darbepoetin Silverio (Darbepoetin Silverio 40 Mcg/0.4 Ml Syringe) 40 mcg SQ Q7D [facility] Last Admin: 06/12/24 12:47 Dose: 40 mcg Dextrose/Water (Dextrose 50% Syringe 50 Ml) 25 ml IVP PER PROTOCOL PRN; Protocol PRN Reason: Hypoglycemia Dextrose/Water (Dextrose 50% Syringe 50 Ml) 50 ml IVP PER PROTOCOL PRN; Protocol PRN Reason: Hypoglycemia Ergocalciferol (Ergocalciferol 1,250 Mcg (50,000 Iu) Capsule) 1,250 mcg PO Q14D [facility] Last Admin: 06/05/24 08:42 Dose: 1,250 mcg Escitalopram Oxalate (Escitalopram 10 Mg Tab) 10 mg PO DAILY [facility] Last Admin: 06/16/24 09:04 Dose: 10 mg Gabapentin (Gabapentin 100 Mg Cap) 100 mg PO HS [facility] Last Admin: 06/15/24 21:18 Dose: 100 mg Haloperidol Lactate (Haloperidol Lactate 5 Mg/Ml 1 Ml Vial) 5 mg IVP ONCE PRN PRN Reason: Agitation or Acute Psychosis Last Admin: 06/14/24 23:51 Dose: 5 mg Haloperidol Lactate (Haloperidol Lactate 5 Mg/Ml 1 Ml Vial) 5 mg IVP Q8HR PRN PRN Reason: Agitation or Acute Psychosis Last Admin: 06/13/24 03:01 Dose: 5 mg Heparin Sodium (Porcine) (Heparin Sodium,Porcine 5,000 Unit/Ml 1 Ml Vial) 5,000 unit SQ Q8HR [facility] Last Admin: 06/16/24 15:51 Dose: 5,000 unit Hydralazine HCl (Hydralazine Hcl 25 Mg Tab) 25 mg PO TID [facility] Last Admin: 06/16/24 15:51 Dose: 25 mg Daptomycin 350 mg/ Sodium (Chloride) 50 mls @ 100 mls/hr IVPB Q48H [facility]; Protocol Last Admin: 06/16/24 09:04 Dose: 100 mls/hr Piperacillin Sod/Tazobactam (Sod 3.375 gm/ Sodium Chloride) 100 mls @ 25 mls/hr IVPB Q12HR [facility]; Protocol Last Admin: 06/16/24 09:05 Dose: 25 mls/hr Insulin Aspart (Insulin Aspart (Novolog) 100 Unit/Ml Vial) 0 unit SQ Q6HR [facility]; Protocol Last Admin: 06/16/24 16:44 Dose: 12 unit Insulin Detemir (Insulin Detemir (Levemir) 100 Unit/Ml Syr) 20 unit SQ Q12H [facility] Last Admin: 06/16/24 09:02 Dose: 20 unit Isosorbide Mononitrate (Isosorbide Mononitrate Er 60 Mg Tab.Er.24h) 60 mg PO DAILY [facility] Last Admin: 06/16/24 09:06 Dose: 60 mg Methylprednisolone Sodium Succinate (Methylprednisolone Sod Succi 40 Mg/Ml 1 Ml Vial) 40 mg IV Q8HR [facility] Last Admin: 06/16/24 15:51 Dose: 40 mg Metoprolol Succinate (Metoprolol Succinate (Er) 25 Mg Tab.Er.24h) 25 mg PO DAILY [facility] Last Admin: 06/16/24 09:04 Dose: Not Given Naloxone HCl (Naloxone 0.4 Mg/Ml 1 Ml Vial) 0.2 mg IV Q2M PRN PRN Reason: Opioid Reversal Collagenase 250 Unit /Gm Ointment 30 Gm Tube 1 each TOPICAL DAILY [facility]; Protocol Last Admin: 06/16/24 09:05 Dose: Not Given Pantoprazole Sodium (Pantoprazole 40 Mg/10 Ml Vial) 40 mg IVP DAILY [facility] Last Admin: 06/16/24 09:04 Dose: 40 mg Ranolazine (Ranolazine 500 Mg Tab.Er.12h) 500 mg PO Q12HR [facility] Last Admin: 06/16/24 09:05 Dose: Not Given Tamsulosin HCl (Tamsulosin 0.4 Mg Cap.Er.24h) 0.4 mg PO PC-BRKFST [facility] Last Admin: 06/16/24 09:03 Dose: Not Given Triamcinolone Acetonide (Triamcinolone Acet 0.5% Cream 15 Gm Tube) 1 applic TOPICAL BID PRN; Protocol PRN Reason: rash/dry skin Social history: Non-smoking. No alcohol. On examination: VITAL SIGNS: 97.7, 84, 22, 116/56, 93% on Airvo 45/45 GENERAL APPEARANCE: Reclining in bed, sleepy HEENT: Normal external appearance of nose and ear. Oral cavity normal EYES: Pupils equal. Conjunctiva normal. NECK: JVD not raised. Mass not palpable. RESPIRATORY: Respiratory effort normal lungs decreased breath sounds CARDIOVASCULAR: First and second sounds normal. Minimal edema in the right leg ABDOMEN: Soft. Liver and spleen not palpable. No tenderness. No right upper quadrant tenderness. No mass palpable. Colostomy bag with liquid stool PSYCHIATRY: Sleepy. Extremity: Right foot in dressing INVESTIGATIONS, reviewed in the clinical context: June 16: White count 12.4 hemoglobin 10.1 platelets 202 sodium 128 potassium 4.4 BUN 32 creatinine 3.11 June 15: White count 9.4 hemoglobin 9.4 platelets 2 3 potassium 4.1 bicarb 25 BUN 32 creatinine 3.14 June 14: White count 16.2 hemoglobin 9.2 platelets 236 sodium 134 potassium 4.3 BUN 68 creatinine 3.26 June 13: White count 16.5 hemoglobin 9.3 platelets 273 sodium 135 potassium 4.7 BUN 38 creatinine 3.34 June 11: Potassium 4.9 BUN 108 creatinine 4.1 June 10: White count 12.8 hemoglobin 7.9 platelets 335 sodium 135 potassium 5.2 BUN 118 creatinine 4.1 June 04: White count 10.2 hemoglobin 10.4 platelet 374 sodium 135 potassium 4.6 BUN 66 creatinine 2.71 troponin I less than 0.012 proBNP 2550 EKG tracing personally reviewed by me-atrial fibrillation. Rate 68 Chest x-ray film personally reviewed by me-pulm edema Recent labs May 30: Potassium 4.7 BUN 42.3 creatinine 2.3 Assessment and plan: -Acute on chronic congestive heart failure exacerbation, from diastolic dysfunction EF 55 to 60%.: Better IV Lasix was given now discontinued Started on dialysis June 10.-Daily -Acute hypoxic respiratory failure from pulmonary edema: Slow to respond Initially BiPAP 04/05/90%. Now o Airvo 45/45 -COPD non-smoker DuoNeb 4 times daily. Nebulized Pulmicort -Chronic ostomy-functioning well -Chronic cephalgia. Patient stated headaches for greater than 6 months. Practically every day. Does not interfere with his eating. No exacerbating r elieving factors: Possible tension headaches. CT scan of the brain shows some chronic changes MRI and MRI of the brain showing chronic changes. Seen by Dr. Gay from neurology a week ago. Further outpatient follow-up with neurology -Acute delirium/metabolic encephalopathy. Multifactorial: Improving -Right heel wound. Dry. Follows with Dr. Jernigan at the wound center. Dr. Carpenter from vascular-. Deep debridement carried recently Wound culture [May 29] MRSA, Proteus IV cefepime, daptomycin per ID -Chronic parastomal hernia #Hypertension: Amlodipine. Toprol-XL. Hydralazine -Acute kidney injury, likely cardiorenal: On hemodialysis Right femoral vein dialysis catheter placed by Dr. Carpenter on June 10. Hemodialysis started June 10-Daily -CKD likely nephrosclerosis, diabetic nephropathy Creatinine was 1.6 on April 28, 2024. -CAD with stent Toprol-XL -Anemia in the setting of chronic kidney disease. Iron deficiency anemia. Given IV iron -Primary osteoarthritis Pain medication as needed -History of prostate cancer with radiation and chemo in 2020. #Diabetes mellitus type II, chronically on insulin: Uncontrolled with hyperglycemia Increase Levemir to 24 units SQ every 12 #Hyperlipidemia: Lipitor #GERD: Protonix -Full code Past Medical History Past Medical History: Cancer, Chest Pain / Angina, Diabetes Mellitus, Eye Disorder, GERD/Reflux, Hyperlipidemia, Hypertension, Osteoarthritis (OA), Prostate Disorder, Renal Disease Additional Past Medical History / Comment(s): HX OF ULCERATIVE COLITIS, ileostomy PARASTOMAL HERNIA, PROSTATE CA WITH RADIATION AND CHEMO IN 2020, LOW KIDNEY FUNCTION,Covid Dec 2022, Influenza A Jun 2023, eye condition, unsure of name. History of Any Multi-Drug Resistant Organisms: MRSA Date of last positivie culture/infection: 05/24/24 MDRO Source:: rt heel, scalp Past Surgical History: Appendectomy, Bowel Resection, Heart Catheterization, Heart Catheterization With Stent Additional Past Surgical History / Comment(s): COLECTOMY, RECTUM REMOVED, ELLIOTT CATARACTS removed, ILEOSTOMY, HERNIA SURGERY. Past Anesthesia/Blood Transfusion Reactions: No Reported Reaction Additional Past Anesthesia/Blood Transfusion Reaction / Comment(s): no problems with prior blood transfusions. Date of Last Stent Placement:: 08/01/2023 Past Psychological History: No Psychological Hx Reported Smoking Status: Never smoker Past Alcohol Use History: None Reported Past Drug Use History: None Reported
[2024-06-16] MEDS: ACETAMINOPHEN TAB 325 MG TAB PO PRN (20:02)
[2024-06-16 20:05] LABS: Glucose,Whole Blood 433 mg/dL (70-110)
[2024-06-16] MEDS: INSULIN DETEMIR (LEVEMIR) 100 UNIT/ML SYR SQ SCH (21:08)
--- NOTE | 2024-06-16 21:37 | P.PN ---
Subjective Patient is seen for follow-up for chronic kidney disease and acute kidney injury. Started hemodialysis on 06/10/2024 No significant complaints today. Patient is comfortable. No significant urine output noted. Objective - Vital Signs Vital signs: Vital Signs Temp 97.8 F 06/16/24 19:51 Pulse 84 06/16/24 20:23 Resp 24 06/16/24 19:51 BP 129/59 06/16/24 19:51 Pulse Ox 91 L 06/16/24 19:51 FiO2 45 06/16/24 20:14 Intake & Output 06/16/24 06/16/24 06/17/24 06:59 18:59 06:59 Intake Total 1000 750 Output Total 0 0 Balance 1000 750 Weight 98.2 kg Intake: IV 100 50 DAPTOmycin 350 mg In 50 Sodium Chloride 0.9% 50 ml @ 100 mls/hr IVPB Q48H [facility] Rx#:[id number] Piperacillin-Tazobactam 3 100 .375 gm In Sodium Chloride 0.9% 100 ml @ 25 mls/hr IVPB Q12HR [facility] Rx #:[id number] Oral 600 Tube Feeding 900 100 Output: Urine 0 0 Other: Voiding Method Indwelling Catheter Urinal - Exam Patient is awake, comfortable, no acute distress Examination of the heart S1 and S2 Examination of the lungs bilateral breath sounds are heard Abdomen is soft nontender Examination of lower extremities shows edema 1+ bilaterally 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 grossly intact - Labs CBC & Chem 7: 06/16/24 04:52 06/16/24 04:52 Labs: Abnormal Lab Results - Last 24 Hours (Table) 06/16/24 06/16/24 06/16/24 Range/Units 00:08 04:52 04:52 WBC 12.4 H (3.8-10.6) k/uL RBC 3.28 L (4.30-5.90) m/uL Hgb 10.1 L (13.0-17.5) gm/dL Hct 32.3 L (39.0-53.0) % RDW 17.0 H (11.5-15.5) % Neutrophils # 11.4 H (1.3-7.7) k/uL Lymphocytes # 0.2 L (1.0-4.8) k/uL Sodium 128 L (137-145) mmol/L Chloride 92 L (98-107) mmol/L Carbon Dioxide 21 L (22-30) mmol/L BUN 72 H (9-20) mg/dL Creatinine 3.11 H (0.66-1.25) mg/dL Glucose 330 H (74-99) mg/dL POC Glucose (mg/dL) 337 H (70-110) mg/dL 06/16/24 06/16/24 06/16/24 Range/Units 05:37 11:37 16:42 WBC (3.8-10.6) k/uL RBC (4.30-5.90) m/uL Hgb (13.0-17.5) gm/dL Hct (39.0-53.0) % RDW (11.5-15.5) % Neutrophils # (1.3-7.7) k/uL Lymphocytes # (1.0-4.8) k/uL Sodium (137-145) mmol/L Chloride (98-107) mmol/L Carbon Dioxide (22-30) mmol/L BUN (9-20) mg/dL Creatinine (0.66-1.25) mg/dL Glucose (74-99) mg/dL POC Glucose (mg/dL) 312 H 334 H 443 H (70-110) mg/dL 06/16/24 Range/Units 20:03 WBC (3.8-10.6) k/uL RBC (4.30-5.90) m/uL Hgb (13.0-17.5) gm/dL Hct (39.0-53.0) % RDW (11.5-15.5) % Neutrophils # (1.3-7.7) k/uL Lymphocytes # (1.0-4.8) k/uL Sodium (137-145) mmol/L Chloride (98-107) mmol/L Carbon Dioxide (22-30) mmol/L BUN (9-20) mg/dL Creatinine (0.66-1.25) mg/dL Glucose (74-99) mg/dL POC Glucose (mg/dL) 433 H (70-110) mg/dL Microbiology - Last 24 Hours (Table) 06/13/24 09:39 Blood Culture - Preliminary Blood Assessment and Plan Assessment: 1. Acute kidney injury, nonoliguric, cardiorenal. UA is benign and ultrasound does not show any evidence of hydronephrosis. Started hemodialysis on 06/10/2024 for significant oliguric acute kidney injury. 2. Acute on chronic diastolic CHF 3. Volume overload 4. Hypertension with CKD stage IV 5. Acute hypoxic respiratory failure secondary to CHF 6. Coronary artery disease with history of coronary stents 7. Metabolic acidosis maintained on oral sodium bicarb. 8. Right heel wound status post debridement Plan: Hemodialysis in a.m. Encouraged increased oral intake.
[2024-06-17 00:02] LABS: Glucose,Whole Blood 377 mg/dL (70-110)
[2024-06-17 06:00] LABS: Glucose,Whole Blood 301 mg/dL (70-110)
[2024-06-17 12:11] LABS: Glucose,Whole Blood 250 mg/dL (70-110)
--- NOTE | 2024-06-17 12:35 | P.PN ---
Subjective Patient is seen for follow-up for chronic kidney disease and acute kidney injury. Started hemodialysis on 06/10/2024 No significant complaints today. Patient is comfortable. No significant urine output noted. Transferred out of ICU Objective - Vital Signs Vital signs: Vital Signs Temp 97.7 F 06/17/24 08:30 Pulse 80 06/17/24 12:07 Resp 20 06/17/24 08:30 BP 128/58 06/17/24 08:30 Pulse Ox 97 06/17/24 08:30 FiO2 40 06/17/24 11:59 Intake & Output 06/16/24 06/17/24 06/17/24 18:59 06:59 18:59 Intake Total 750 100 Output Total 0 150 Balance 750 -150 100 Weight 98.5 kg Intake: IV 50 DAPTOmycin 350 mg In 50 Sodium Chloride 0.9% 50 ml @ 100 mls/hr IVPB Q48H [facility] Rx#:[id number] Oral 600 100 Tube Feeding 100 Output: Urine 0 0 Stool 150 Other: Voiding Method Urinal Urinal Urinal # Bowel Movements 1 - Exam Patient is awake, comfortable, no acute distress Examination of the heart S1 and S2 Examination of the lungs bilateral breath sounds are heard Abdomen is soft nontender Examination of lower extremities shows no significant edema 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 Acute kidney injury, nonoliguric, cardiorenal. UA is benign and ultrasound does not show any evidence of hydronephrosis. Started hemodialysis on 06/10/2024 for significant oliguric acute kidney injury. 2. Acute on chronic diastolic CHF 3. Volume overload 4. Hypertension with CKD stage IV 5. Acute hypoxic respiratory failure secondary to CHF 6. Coronary artery disease with history of coronary stents 7. Metabolic acidosis maintained on oral sodium bicarb. 8. Right heel wound status post debridement Plan: Hemodialysis today Schedule IJ permacath placement as patient will need outpatient dialysis given t he poor urine output. Encouraged increased oral intake.
[2024-06-17] MEDS: MORPHINE SULFATE 2 MG/ML SYRINGE IVP STA (13:08)
--- NOTE | 2024-06-17 13:26 | P.PN ---
Subjective HISTORY OF PRESENT ILLNESS: This is 73-year-old male patient of Dr. Bales with past medical history of coronary artery disease status post PCI of the LAD and second diagonal branch, known severe disease involving the OM1, heart failure with preserved EF, diabetes, hypertension, dyslipidemia, chronic kidney disease, dilated ascending aorta, history of colectomy and overweight. We have been asked to evaluate the patient for CHF. Patient was recently hospitalized 05/28 - 05/31 and was treated for CHF and acute kidney injury. Patient states that when he went home he did not feel any better related to shortness of breath and when he had come in. He states he continues to have shortness of breath which is worsening and also has a little lightheadedness and dizziness. He complains of chest pain across the mid chest and also some left lower abdominal pain. He denies cough but he states in the morning he has sputum production. No significant lower extremity edema. He does have a chronic wound to the right foot with the boot in place. Blood pressure 121/61, heart rate 69, pulse ox 96% on 2 and half liters nasal cannula. Patient has been started on IV Lasix 80 mg every 12 hours. -EKG: Atrial fibrillation [address] changes -Chest x-ray: Correlate for volume overload -Laboratory studies: WBC 10.2, hemoglobin 10.4, platelet count 374. Sodium 135, potassium 4.6, BUN 66 and creatinine 2.71. Troponin negative x 1. proBNP 2550. -Home cardiac medications: Amlodipine 10 mg daily, aspirin 81 mg daily, atorvastatin 40 mg daily, Plavix 75 mg daily, Farxiga 10 mg daily, hydralazine 25 mg 3 times daily, Imdur 60 mg daily, Toprol XL 25 mg daily, Ranexa 500 mg every 12 hours, Demadex 40 mg daily. -Echocardiogram from 05/28/2024 revealed technical difficult study minimal mitral and tricuspid regurgitation. No pericardial effusion. -Cardiac catheterization history: April 26, 2024 revealing patent stent in the mid LAD. Late stent thrombosis of the second diagonal branch of the LAD, severe disease involving OM1 appeared unchanged compared to before, attempted balloon angioplasty was performed of second diagonal branch with suboptimal results June 09, 2024 The patient was seen and evaluated this morning. Unfortunately the kidney function is worse. He is still in failure now requiring BiPAP. The chest x-ray from yesterday showed finding consistent with failure. He continues to be on Lasix IV. Nephrology team is on the case. The physical examination is remarkable for regular rhythm wit diminished breathing sounds bilaterally and mild bilateral expiratory wheezing and mild bilateral lower extremities edema. Beside that he is hyperkalemic that is under treatment at this point. 06/10/2024 Patient examined this morning at the bedside. Patient currently reports shortness of breath. He remains on IV Lasix. He denies any chest pain or pressure. Creatinine is worsening today at 4.1. Patient states that he spoke with nephrology this morning and plan is to begin hemodialysis today. 06/11 Patient seen and examined Patient is preparing to have his second dialysis treatment this morning. He is on 100% BiPAP pulse ox 92%. Blood pressure 129/58, heart rate 70. No repeat blood work today. 06/12/2024 Patient is seen and examined at bedside this a.m. Patient is maintained on BiPAP support, saturating 92%. Hemodynamically stable. EKG shows sinus rhythm on telemetry. 06/13/2024, Seen and examined at bedside this a.m. Patient is BiPAP dependent and is not able to tolerate removal of BiPAP even for food and medications. BP 120/50, heart rate 80 bpm, sinus rhythm on telemetry, 95% saturation on BiPAP support Minimal urine output chest x-ray shows significant pulmonary edema suggestive of volume overload. Would recommend continuing fluid removal with hemodialysis and hold his antihypertensives before his hemodialysis so that more volume can be removed during dialysis session. 06/14/24 Patient is getting hemodialysis, fluid status appears to be improved. Still on continuous BiPAP support . 06/15/2024 Patient noticed to be hypotensive today after hemodialysis. We will hold his antihypertensives. Patient has had significant negative fluid balance with continuous hemodialysis in last 2 days. I would recommend reducing the amount of ultrafiltrate as I feel that patient is now getting towards more dehydration. 06/16/2024 Patient was transferred out of ICU to 3 S. floor today. Anticipated hemodialysis tomorrow. Minimal urine output. Lawson catheter is out. Blood pressure systolic around 110, continues to be in sinus rhythm on telemetry. He was hypotensive yesterday. Today blood pressure is better. 06/17/2024 Patient examined this morning at the bedside. Patient reports improvement in his shortness of breath. He remains on Airvo. He denies chest pain or pressure. He states he is supposed to get hemodialysis today. Blood pressure stable with a systolic in the 120s. PHYSICAL EXAM: VITAL SIGNS: Reviewed. GENERAL: Well-developed in no acute distress. NECK: Supple. No JVD or thyromegaly LUNGS: Respirations even and unlabored. Lungs clear to auscultation. HEART: Regular rate and rhythm. S1 and S2 heard. + Systolic murmur. EXTREMITIES: Normal range of motion. No clubbing or cyanosis. Peripheral pulses intact. 1+ bilateral lower extremity edema ASSESSMENT: Shortness of breath Acute on chronic diastolic heart failure Acute on chronic kidney disease, initiated on hemodialysis 06/10/2024 History of coronary artery disease with PCI of the LAD and second diagonal with known severe disease involving the OM1 Diabetes Hypertension Dyslipidemia Dilated ascending aorta History of colectomy Nonhealing right heel wound PLAN: Continue current cardiac medications Continue hemodialysis per nephrology. Continue to monitor kidney function Wean oxygen as tolerated Continue to monitor blood pressure Further recommendations pending patient course Nurse practitioner note has been reviewed by physician. Signing provider agrees with the documented findings, assessment, and plan of care documented by [employer]PUT[employer] as a scribe. Objective - Vital Signs Vital signs: Vital Signs Temp 97.7 F 06/17/24 08:30 Pulse 80 06/17/24 12:07 Resp 16 06/17/24 11:15 BP 134/67 06/17/24 11:15 Pulse Ox 92 L 06/17/24 11:15 FiO2 40 06/17/24 11:59 Intake & Output 06/16/24 06/17/24 06/17/24 18:59 06:59 18:59 Intake Total 750 400 Output Total 0 150 Balance 750 -150 400 Weight 98.5 kg Intake: IV 50 DAPTOmycin 350 mg In 50 Sodium Chloride 0.9% 50 ml @ 100 mls/hr IVPB Q48H JOSÉ Rx#:[id number] Oral 600 400 Tube Feeding 100 Output: Urine 0 0 Stool 150 Other: Voiding Method Urinal Urinal Urinal # Bowel Movements 1 1 - Labs CBC & Chem 7: 06/16/24 04:52 06/16/24 04:52 Labs: Abnormal Lab Results - Last 24 Hours (Table) 06/16/24 06/16/24 06/17/24 Range/Units 16:42 20:03 00:00 POC Glucose (mg/dL) 443 H 433 H 377 H (70-110) mg/dL 06/17/24 06/17/24 Range/Units 05:59 12:09 POC Glucose (mg/dL) 301 H 250 H (70-110) mg/dL Microbiology - Last 24 Hours (Table) 06/13/24 09:39 Blood Culture - Preliminary Blood
--- NOTE | 2024-06-17 15:26 | P.PN ---
Progress Note - Text Progress Note Date: 06/17/24 Chief Complaint: Short of breath Pleasant 73-year-old patient follows with Dr. Dennis. 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 Bales Chronic medical conditions include hypertension, hyperlipidemia, type 2 diabetes, mood disorder, and CAD , ostomy for 25 years, July 2023 stent to the LAD and second diagonal branch by Dr. Bales. April 26, [address] Bales: Following a non-ST relation MD: Patent stent to mid LAD. Late stent thrombosis of the second diagonal branch of the LAD. Severe disease involving the OM1 appears unchanged. Attempted balloon angioplasty performed to the second of diagonal branch with suboptimal results. Dose of Imdur was increased and Ranexa was added. Patient recently in the hospital from May 28 through May 31. Chronic headaches: MRI unremarkable. MR angio head and neck: MR angio head without contrast: No evidence of aneurysm or significant stenosis. Atrophic right A1 segment. origin of the right posterior cerebral artery.MRI of the brain nonspecific. Was seen by neurology Dr. Gay. Patient to follow-up outpatient Chronic right heel wound seen by Dr. Carpenter from vascular deep debridement was carried out. No need for antibiotics. Patient to follow-up with Dr. Jernigan at the wound center. Shortness of breath: Was seen by cardiology. Not for any further intervention. Patient doing well when discharged. Patient presented increased shortness of breath when at home. His pulse ox dropped out of the 80s. Increasing shortness of breath. Decreased appetite. No fever or chills. June 10: Using his BiPAP. Patient seen this morning. Later this afternoon. Right femoral vein dialysis catheter was placed by Dr. Carpenter from vascular for dialysis. Baseline some shortness of breath. Due for first dialysis today. Patient is right heel culture grew MRSA Proteus P Corynebacterium on May 29. Patient is on IV daptomycin and IV cefepime per ID. June 11: Patient seen this afternoon. On BiPAP. Getting hemodialysis. Remains on IV daptomycin IV Zosyn. Tired. Also getting IV iron. Patient really did not eat today. Because of BiPAP. Cut back Levemir to 26 units at night. DC scheduled NovoLog for now. June 12: Overflowing the ICU. Remains on BiPAP. 04/05/90%. at the bedside. Remains on IV daptomycin and IV Zosyn. For dialysis today. X-ray continues shows infiltrates. Significantly hypoxic. N.p.o. June 13: ICU. Remains on BiPAP. 12/6/90% moderate take anything by mouth. Spoke to the nurse have TPN lipids ordered. Remains on IV daptomycin IV Zosyn. Chest x-ray continues to show diffuse infiltrates. Continues to be followed by cardiology pulmonary ID nephrology. June 14: ICU. Later this afternoon patient was put on Airvo. 60/60. Has some delirium. Remains on IV daptomycin and IV Zosyn. Had 2 L ultrafiltration yesterday. Patient getting daily dialysis for now. As patient is oliguric per nephrology Lasix has been held. TPN was ordered yesterday per the nurse culture that returned to feed the patient. Will see how that goes. Dietitian on the case. June 15: ICU. Patient be getting hypotensive. Some medications held back by cardiology. Hemodialysis done today. Patient remains on Airvo though at 50/50. at the bedside. Plans this afternoon to get him up in the chair. Remains on daptomycin and IV Zosyn. IV Lasix been discontinued. Patient tolerating some liquid diet. June 16: Patient moved to the ICU. Remains on Airvo. 45/45. at the bedside. Tolerating full liquids. Spoke to the about the morphine. His headaches are chronic. Use Fioricet as needed. Remains on IV daptomycin and IV Zosyn. IV Solu-Medrol. Amlodipine dose cut back. PT OT. June 17: On 3 S., telemetry floor. Getting hemodialysis today. Remains on IV daptomycin IV Zosyn. On full liquid diet. Advance to ground diet. Minimal urine output. DC fluid restriction. Awake communicating. Accu-Cheks running high. Increase Levemir to 28 units subcu twice daily. Seen by PT OT. Maximum assist. On Airvo 40/40. Cut back Solu-Medrol to every 12. Active Medications Acetaminophen (Acetaminophen Tab 325 Mg Tab) 650 mg PO Q6HR PRN PRN Reason: Mild Pain or Fever > 100.5 Last Admin: 06/16/24 20:02 Dose: 650 mg Acetaminophen/Butalbital/Caffeine (Butalb/Apap/Caff 50-325-40mg Tab) 1 each PO Q4H PRN PRN Reason: Migraine Headache Albuterol/Ipratropium (Ipratropium-Albuterol 3 Ml Neb) 3 ml INHALATION RT-QID [facility] Last Admin: 06/17/24 11:57 Dose: 3 ml Albuterol/Ipratropium (Ipratropium-Albuterol 3 Ml Neb) 3 ml INHALATION RT-QID PRN PRN Reason: Shortness Of Breath Or Wheezing Allopurinol (Allopurinol 100 Mg Tab) 100 mg PO DAILY [facility] Last Admin: 06/17/24 11:38 Dose: 100 mg Amlodipine Besylate (Amlodipine 5 Mg Tab) 5 mg PO DAILY [facility] Aspirin (Aspirin 81 Mg) 81 mg PO DAILY [facility] Last Admin: 06/17/24 11:37 Dose: 81 mg Atorvastatin Calcium (Atorvastatin 40 Mg Tab) 40 mg PO DAILY [facility] Last Admin: 06/17/24 11:37 Dose: 40 mg Budesonide (Budesonide 1 Mg/2 Ml Nebu) 1 mg INHALATION RT-BID [facility] Last Admin: 06/17/24 08:14 Dose: 1 mg Calcitriol (Calcitriol 0.25 Mcg Cap) 0.25 mcg PO Mo@0900 [facility] Last Admin: 06/17/24 11:37 Dose: 0.25 mcg Clopidogrel Bisulfate (Clopidogrel 75 Mg Tab) 75 mg PO DAILY [facility] Last Admin: 06/17/24 11:37 Dose: 75 mg Collagenase (Collagenase 250 Unit/Gm Ointment 30 Gm Tube) 1 applic TOPICAL DAILY [facility]; Protocol Last Admin: 06/17/24 11:10 Dose: Not Given Darbepoetin Silverio (Darbepoetin Silverio 40 Mcg/0.4 Ml Syringe) 40 mcg SQ Q7D [facility] Last Admin: 06/12/24 12:47 Dose: 40 mcg Dextrose/Water (Dextrose 50% Syringe 50 Ml) 25 ml IVP PER PROTOCOL PRN; Protocol PRN Reason: Hypoglycemia Dextrose/Water (Dextrose 50% Syringe 50 Ml) 50 ml IVP PER PROTOCOL PRN; Protocol PRN Reason: Hypoglycemia Ergocalciferol (Ergocalciferol 1,250 Mcg (50,000 Iu) Capsule) 1,250 mcg PO Q14D [facility] Last Admin: 06/05/24 08:42 Dose: 1,250 mcg Escitalopram Oxalate (Escitalopram 10 Mg Tab) 10 mg PO DAILY [facility] Last Admin: 06/17/24 11:37 Dose: 10 mg Gabapentin (Gabapentin 100 Mg Cap) 100 mg PO HS [facility] Last Admin: 06/16/24 20:02 Dose: 100 mg Haloperidol Lactate (Haloperidol Lactate 5 Mg/Ml 1 Ml Vial) 5 mg IVP ONCE PRN PRN Reason: Agitation or Acute Psychosis Last Admin: 06/14/24 23:51 Dose: 5 mg Haloperidol Lactate (Haloperidol Lactate 5 Mg/Ml 1 Ml Vial) 5 mg IVP Q8HR PRN PRN Reason: Agitation or Acute Psychosis Last Admin: 06/13/24 03:01 Dose: 5 mg Heparin Sodium (Porcine) (Heparin Sodium,Porcine 5,000 Unit/Ml 1 Ml Vial) 5,000 unit SQ Q8HR [facility] Last Admin: 06/17/24 11:29 Dose: 5,000 unit Hydralazine HCl (Hydralazine Hcl 25 Mg Tab) 25 mg PO TID [facility] Last Admin: 06/17/24 12:18 Dose: Not Given Daptomycin 350 mg/ Sodium (Chloride) 50 mls @ 100 mls/hr IVPB Q48H [facility]; Protocol Last Admin: 06/16/24 09:04 Dose: 100 mls/hr Piperacillin Sod/Tazobactam (Sod 3.375 gm/ Sodium Chloride) 100 mls @ 25 mls/hr IVPB Q12HR [facility]; Protocol Last Admin: 06/17/24 11:28 Dose: 25 mls/hr Insulin Aspart (Insulin Aspart (Novolog) 100 Unit/Ml Vial) 0 unit SQ Q6HR [facility]; Protocol Last Admin: 06/17/24 12:20 Dose: 4 unit Insulin Detemir (Insulin Detemir (Levemir) 100 Unit/Ml Syr) 28 unit SQ BID@0700,2100 [facility] Isosorbide Mononitrate (Isosorbide Mononitrate Er 60 Mg Tab.Er.24h) 60 mg PO DAILY [facility] Last Admin: 06/16/24 09:06 Dose: 60 mg Methylprednisolone Sodium Succinate (Methylprednisolone Sod Succi 40 Mg/Ml 1 Ml Vial) 40 mg IV Q8HR [facility] Last Admin: 06/17/24 11:29 Dose: 40 mg Metoprolol Succinate (Metoprolol Succinate (Er) 25 Mg Tab.Er.24h) 25 mg PO DAILY [facility] Last Admin: 06/16/24 09:04 Dose: Not Given Naloxone HCl (Naloxone 0.4 Mg/Ml 1 Ml Vial) 0.2 mg IV Q2M PRN PRN Reason: Opioid Reversal Collagenase 250 Unit /Gm Ointment 30 Gm Tube 1 each TOPICAL DAILY [facility]; Protocol Last Admin: 06/17/24 11:11 Dose: Not Given Pantoprazole Sodium (Pantoprazole 40 Mg/10 Ml Vial) 40 mg IVP DAILY [facility] Last Admin: 06/17/24 11:28 Dose: 40 mg Ranolazine (Ranolazine 500 Mg Tab.Er.12h) 500 mg PO Q12HR [facility] Last Admin: 06/17/24 15:01 Dose: Not Given Tamsulosin HCl (Tamsulosin 0.4 Mg Cap.Er.24h) 0.4 mg PO PC-BRKFST [facility] Last Admin: 06/17/24 11:37 Dose: 0.4 mg Triamcinolone Acetonide (Triamcinolone Acet 0.5% Cream 15 Gm Tube) 1 applic TOPICAL BID PRN; Protocol PRN Reason: rash/dry skin Social history: Non-smoking. No alcohol. On examination: VITAL SIGNS: 97.7, 80, 16, 134 x 67, 92% on Airvo 40/40 GENERAL APPEARANCE: Reclining in bed, awake, getting hemodialysis HEENT: Normal external appearance of nose and ear. Oral cavity normal EYES: Pupils equal. Conjunctiva normal. NECK: JVD not raised. Mass not palpable. RESPIRATORY: Respiratory effort normal lungs decreased breath sounds CARDIOVASCULAR: First and second sounds normal. Minimal edema in the right leg ABDOMEN: Soft. Liver and spleen not palpable. No tenderness. No right upper quadrant tenderness. No mass palpable. Colostomy bag with liquid stool PSYCHIATRY: Answering questions appropriately Extremity: Right foot in dressing INVESTIGATIONS, reviewed in the clinical context: June 16: White count 12.4 hemoglobin 10.1 platelets 202 sodium 128 potassium 4.4 BUN 32 creatinine 3.11 June 15: White count 9.4 hemoglobin 9.4 platelets 2 3 potassium 4.1 bicarb 25 BUN 32 creatinine 3.14 June 14: White count 16.2 hemoglobin 9.2 platelets 236 sodium 134 potassium 4.3 BUN 68 creatinine 3.26 June 13: White count 16.5 hemoglobin 9.3 platelets 273 sodium 135 potassium 4.7 BUN 38 creatinine 3.34 June 11: Potassium 4.9 BUN 108 creatinine 4.1 June 10: White count 12.8 hemoglobin 7.9 platelets 335 sodium 135 potassium 5.2 BUN 118 creatinine 4.1 June 04: White count 10.2 hemoglobin 10.4 platelet 374 sodium 135 potassium 4.6 BUN 66 creatinine 2.71 troponin I less than 0.012 proBNP 2550 EKG tracing personally reviewed by me-atrial fibrillation. Rate 68 Chest x-ray film personally reviewed by me-pulm edema Recent labs May 30: Potassium 4.7 BUN 42.3 creatinine 2.3 Assessment and plan: -Acute on chronic congestive heart failure exacerbation, from diastolic dysfunction EF 55 to 60%.: Better IV Lasix was given now discontinued Started on dialysis June 10.-Daily -Acute hypoxic respiratory failure from pulmonary edema: Improving slowly Initially BiPAP 12/6/90%. Now o Airvo 40/40 -Acute respiratory distress syndrome, multifactorial: Slowly improving On Airvo IV Solu-Medrol, cut back to 40 mg every 12 -COPD non-smoker DuoNeb 4 times daily. Nebulized Pulmicort -Chronic ostomy-functioning well -Chronic cephalgia. Patient stated headaches for greater than 6 months. Practically every day. Does not interfere with his eating. No exacerbating relieving factors: Possible tension headaches. CT scan of the brain shows some chronic changes MRI and MRI of the brain showing chronic changes. Seen by Dr. Gay from neurology a week ago. Further outpatient follow-up with neurology -Acute delirium/metabolic encephalopathy. Multifactorial: Much improved -Right heel wound. Dry. Follows with Dr. Jernigan at the wound center. Dr. Carpenter from vascular-. Deep debridement carried recently Wound culture [May 29] MRSA, Proteus IV cefepime, daptomycin per ID -Chronic parastomal hernia #Hypertension: Amlodipine. Toprol-XL. Hydralazine -Acute kidney injury, likely cardiorenal: On hemodialysis Right femoral vein dialysis catheter placed by Dr. Carpenter on June 10. Hemodialysis started June 10-Daily -CKD likely nephrosclerosis, diabetic nephropathy Creatinine was 1.6 on April 28, 2024. -CAD with stent Toprol-XL -Anemia in the setting of chronic kidney disease. Iron deficiency anemia. Given IV iron -Primary osteoarthritis Pain medication as needed -History of prostate cancer with radiation and chemo in 2020. #Diabetes mellitus type II, chronically on insulin: Uncontrolled with hyperglycemia Increase Levemir to 28 units SQ every 12 #Hyperlipidemia: Lipitor #GERD: Protonix -Full code Past Medical History Past Medical History: Cancer, Chest Pain / Angina, Diabetes Mellitus, Eye Disor rodrigo, GERD/Reflux, Hyperlipidemia, Hypertension, Osteoarthritis (OA), Prostate Disorder, Renal Disease Additional Past Medical History / Comment(s): HX OF ULCERATIVE COLITIS, i leostomy PARASTOMAL HERNIA, PROSTATE CA WITH RADIATION AND CHEMO IN 2020, LOW KIDNEY FUNCTION,Covid Dec 2022, Influenza A Jun 2023, eye condition, unsure of name. History of Any Multi-Drug Resistant Organisms: MRSA Date of last positivie culture/infection: 05/24/24 MDRO Source:: rt heel, scalp Past Surgical History: Appendectomy, Bowel Resection, Heart Catheterization, Heart Catheterization With Stent Additional Past Surgical History / Comment(s): COLECTOMY, RECTUM REMOVED, ELLIOTT CATARACTS removed, ILEOSTOMY, HERNIA SURGERY. Past Anesthesia/Blood Transfusion Reactions: No Reported Reaction Additional Past Anesthesia/Blood Transfusion Reaction / Comment(s): no problems with prior blood transfusions. Date of Last Stent Placement:: 08/01/2023 Past Psychological History: No Psychological Hx Reported Smoking Status: Never smoker Past Alcohol Use History: None Reported Past Drug Use History: None Reported
[2024-06-17 16:54] LABS: Glucose,Whole Blood 202 mg/dL (70-110)
[2024-06-17] MEDS: amLODIPine 5 MG TAB PO SCH (17:42)
--- NOTE | 2024-06-17 19:31 | P.PN ---
Subjective Progress Note Date: 06/17/24 Patient is a 73-year-old male with past medical history significant for hypertension, hyperlipidemia, coronary artery disease with previous PCI/stenting, heart failure, chronic kidney disease, diabetes mellitus, chronic right heel wound, ulcerative colitis with previous colectomy and ileostomy. Of note, patient had a recent hospitalization late May and was just discharged 05/31/2024 for CHF exacerbation. Echocardiogram done during this hospitalization estimating a preserved left ventricular ejection fraction of 55 to 60%. Limited study, but no acute valvular abnormalities reported. Presented the emergency department on 06/04/2024 with a chief complaint of shortness of breath, mostly on exertion. Chest x-ray showing cardiomegaly, mild pulmonary vascular congestion, and a small pleural effusion on the left. NT proBNP elevated 2550. Currently receiving Lasix 80 mg twice daily. CBC: WBC count 10.2, hemoglobin 10.4, hematocrit 32.5, platelets 374. CMP: Sodium 135, potassium 4.6, chloride 101, serum bicarb 18, BUN 66, creatinine 2.71, glucose 139. Troponin is less than 0.012. Patient currently being evaluated on the general medical floor. Appears weak and deconditioned. He is resting in bed on 1 L/min nasal cannula. No respiratory distress noted. Complaining of a generalized headache, which he states is chronic. States that he has been short of breath on exertion for several months to almost 1 year. Particularly on exertion such as climbing stairs or walking to the bathroom. Denies history of COPD or asthma. Never tobacco smoker. Worked in an [employer] shop before he retired. Denies cough. Denies infectious-like symptoms. Current vital signs: Temperature 98 F, heart rate 78 bpm, blood pressure 145/54 mmHg, nontachypneic, SpO2 recorded at 91% on 1 L/min nasal cannula. The patient is seen today June 07, 2024 in follow-up on the regular medical floor. He is awake and alert in no acute distress. Sitting up at the bedside. Maintaining O2 saturations in the 90s on 3 L/min per nasal cannula. White count 9.8. Hemoglobin 8.9. Platelets 366. Sodium 140. Potassium 4.7. Bicarb 22. BUN 60. Creatinine 2.4. Glucose 97. He remains on DuoNeb and elations, Pulmicort inhalations. Lasix 80 mg IV every 12 hours. He is currently -1.1 L balance. Antibiotics in the form of cefepime and daptomycin for his diabetic ulcer of the right foot. X-ray revealed no osseous erosion or acute fracture. The patient is seen today June 08, 2024 in follow-up on the regular medical floor. He did have issues with worsening shortness of breath. He is currently on BiPAP 12/6 and 40% FiO2. White count 6.3. Hemoglobin 8.5. Platelets 357. Sodium 136. Potassium 5.8. Bicarb 21. BUN 64. Creatinine 2.4. Glucose 178. Chest x-ray continues to show evidence of congestive heart failure. He is currently on Lasix 80 mg IV every 12 hours. Continued on bronchodilators and steroids. Remains on antibiotics in the form of cefepime and daptomycin. The patient is seen today June 09, 2024 in follow-up on the regular medical floor. He is currently resting comfortably in bed. Awake and alert in no acute distress. Breathing easier today compared to yesterday. He is currently on BiPAP 12/6 and 40% FiO2. White count 10.1. Hemoglobin 8.0. Platelets 339. Sodium 136. Potassium 5.8. Bicarb 21. BUN 94. Creatinine 3.4. Glucose 234. He remains on DuoNeb and elations, Pulmicort inhalations, Solu-Medrol. Remains on IV diuretics. Remains on cefepime and daptomycin. Receiving Lokelma. The patient is seen today June 10, 2024 in follow-up on the regular medical floor. He is currently sitting up at the bedside. Awake and alert in no acute distress. He is requiring BiPAP support at 12/6 and 60% FiO2. Alternating with oxygen at 4 L/min per nasal cannula. He is continued on DuoNeb inhalations, Pulmicort inhalations, Solu-Medrol. He remains on antibiotics in the form of cefepime and daptomycin. Receiving iron supplement. Continued on IV diuretics. Continued on sodium bicarb tablets. White count 12.8. Hemoglobin 7.9. Platelets 335. Sodium 135. Potassium 5.2. Bicarb 23. BUN 118. Creatinine 4.1. Glucose 131. Plan is for placement of a hemodialysis catheter today and to receive hemodialysis today and tomorrow per nephrology. The patient is seen today June 12, 2024 in follow-up in the intensive care unit. He was transferred here last evening as his oxygen requirements increased. He is currently on BiPAP 12/6 and 90% FiO2. Arterial blood gases revealed a PaO2 of 60, pCO2 39 and a pH of 7.44. Chest x-ray continues to show diffuse bilateral airspace disease. Blood culture revealed no growth. White count 15.8. Hemoglobin 8.4. Platelets 257. Sodium 135. Potassium 4.4. Bicarb 23. BUN 90. Creatinine 3.51. Glucose 165. proBNP 7440. Procalcitonin pending. He is continued on daptomycin and Zosyn. Remains on Lasix 80 mg IV every 12 hours. Oertli in a -4 L balance. He did receive hemodialysis yesterday and again today 2 L removed each time. He is continued on DuoNeb and elations, Pulmicort inhalations. Solu-Medrol. The patient is seen today June 13, 2024 in follow-up in the intensive care unit. He remains mostly BiPAP dependent currently on 12/6 and 90% FiO2. No IV fluids. The plan is for hemodialysis again today which will be day #4 with approximately 2 L removed each time. Chest x-ray is showing evidence of acute respiratory distress syndrome. His PF ratio is 66 indicating severe ARDS. Blood culture revealed no growth. White count 16.5. Hemoglobin 9.3. Platelets 273. Sodium 135. Potassium 4.7. Bicarb 25. BUN 78. Creatinine 3.34. Glucose 211. Procalcitonin is elevated at 4.78. He remains on DuoNeb inhalations, Pulmicort inhalations, Solu-Medrol. Remains on daptomycin and Zosyn. Remains on Lasix 80 mg IV every 12 hours. Currently in a -4 L balance. Heparin for DVT prophylaxis. Protonix for GI prophylaxis. The patient is seen today June 14, 2024 in follow-up in the intensive care unit. He is awake and alert in no acute distress. He remains on BiPAP 12/6 and 60% FiO2. He is receiving hemodialysis again today with a goal of 2 to 2-1/2 L to be removed. His chest x-ray is showing improvement. Microbiology reveals no growth. He remains on Zosyn. Procalcitonin was 4.78. He has normal saline at KVO. White count 16.2. Hemoglobin 9.2. Platelets 236. Sodium 134. Potassium 4.3. Bicarb 27. BUN 68. Creatinine 3.26. Glucose 210. He remains on DuoNeb inhalations, Pulmicort inhalations, IV Solu-Medrol. He remains on daptomycin and Zosyn. He remains on Lasix 80 mg IV every 12 hours. Currently in a -7.8 L balance. Heparin for DVT prophylaxis. He did undergo debridement with surgical open necrotic tissue of the right heel for diabetic Walter grade 2 ulceration. The patient is seen today June 15, 2024 in follow-up in the intensive care unit. He is currently sitting up in bed. Awake and alert in no acute distress. He is continued on BiPAP 12/6 and 50% FiO2. He is alternating with Airvo high flow oxygen at 50 L and 60% FiO2. Chest x-ray showing improved aeration. He received hemodialysis yesterday with another 2-1/2 L removed. The plan is for hemodialysis again today. He has normal staying at [facility]. He remains on daptomycin and Zosyn. He remains on DuoNeb and elations, Pulmicort inhalations, Solu-Medrol. Heparin for DVT prophylaxis. Remains on Lasix 80 mg IV every 12 hours. White count 9.4. Hemoglobin 9.4. Platelets 203. Sodium 131. Potassium 4.1. Bicarb 25. BUN 72. Creatinine 3.14. Glucose 299. The patient is seen today June 16, 2024 in follow-up in the intensive care unit. He is currently sitting up in bed. Awake and alert in no acute distress. He is maintaining good O2 saturations in the 90s on Airvo high flow oxygen at 50 L and 50% FiO2. He has been off BiPAP for over 24 hours. He received hemodialysis yesterday with 2.5 L removed. The plan is for hemodialysis tomorrow. Chest x-ray shows similar bilateral airspace opacities. Blood culture revealed no growth. White count 12.4. Hemoglobin 10.1. Platelets 202. Sodium 128. Potassium 4.4. Bicarb 21. BUN 72. Creatinine 3.11. Glucose 330. He remains on DuoNeb inhalations, Pulmicort inhalations. Heparin for DVT prophylaxis. Remains on IV Solu-Medrol. Remains on Zosyn. 06/17/2024, the patient is being seen for a follow-up. There is a 73-year-old female patient who is being seen in follow-up regarding his hypoxic respiratory failure. On today's evaluation, the patient remains on Airvo at 40 L with an FiO2 of 40%. Current pulse ox 91 to 92%. At the same time, the patient is undergoing hemodialysis with a goal of ultrafiltration of around 2.5 L. He remains on a combination of Zosyn and daptomycin. The patient had a MRSA he will infection and ID is on the case. The patient is awake and alert and communicating. Remains on DuoNeb nebulized treatments [id number]. Remains on IV Solu-Medrol 40 mg every 12 hours. Rest of the medications are essentially unchanged. Most recent chest x-ray from 06/16/2024 was reviewed and shows multifocal airspace opacities. The patient had a previous echocardiogram done on 05/29/2024 indicating a preserved LV function with an ejection fraction of 55 to 60%. No significant valvular abnormalities. Comorbidities include coronary artery disease with previous PCI and stenting, chronic kidney disease, currently on hemodialysis, diabetes mellitus type 2, chronic right heel wound, ulcerative colitis and the patient has a colectomy and diverting ileostomy along with hypertension hyperlipidemia. Objective - Vital Signs Vital signs: Vital Signs Temp 97.7 F 06/17/24 08:30 Pulse 80 06/17/24 12:07 Resp 16 06/17/24 11:15 BP 134/67 06/17/24 11:15 Pulse Ox 92 L 06/17/24 11:15 FiO2 40 06/17/24 11:59 Intake & Output 06/16/24 06/17/24 06/17/24 18:59 06:59 18:59 Intake Total 750 400 Output Total 0 150 Balance 750 -150 400 Weight 98.5 kg Intake: IV 50 DAPTOmycin 350 mg In 50 Sodium Chloride 0.9% 50 ml @ 100 mls/hr IVPB Q48H [facility] Rx#:[id number] Oral 600 400 Tube Feeding 100 Output: Urine 0 0 Stool 150 Other: Voiding Method Urinal Urinal Urinal # Bowel Movements 1 1 - Exam GENERAL EXAM: Awake, alert 73-year-old obese male, on Airvo high flow oxygen at 40 L with an FiO2 of 40% HEAD: Normocephalic and atraumatic EYES: Normal reaction of pupils, equal size. NOSE: Clear with pink turbinates. THROAT: No erythema or exudates. NECK: No masses, no JVD. CHEST: No chest wall deformity. LUNGS: Equal air entry with diminished lung sounds throughout. Crackles in the bilateral bases. CVS: S1 and S2 normal with no audible murmur, regular rhythm. No extra heart sounds ABDOMEN: No hepatosplenomegaly, active bowel sounds, no guarding or rigidity. Functional ileostomy SPINE: No scoliosis or deformity SKIN: Generalized erythemic plaques involving upper extremities, chest, back CENTRAL NERVOUS SYSTEM: No focal deficits, tone is normal in all 4 extremities. EXTREMITIES: Right foot is wrapped with a bandage. There is 1-2+ peripheral edema. Peripheral pulses are intact. - Labs CBC & Chem 7: 06/16/24 04:52 06/16/24 04:52 Labs: Abnormal Lab Results - Last 24 Hours (Table) 06/16/24 06/16/24 06/17/24 Range/Units 16:42 20:03 00:00 POC Glucose (mg/dL) 443 H 433 H 377 H (70-110) mg/dL 06/17/24 06/17/24 Range/Units 05:59 12:09 POC Glucose (mg/dL) 301 H 250 H (70-110) mg/dL Microbiology - Last 24 Hours (Table) 06/13/24 09:39 Blood Culture - Preliminary Blood Assessment and Plan Plan: Acute exacerbation of diastolic congestive heart failure versus interstitial edema secondary to chronic kidney disease and renal failure. Bilateral pneumonia cannot be completely excluded. The patient remains hypoxic, remains on Airvo at 40 L with an FiO2 of 40%. Acute hypoxic respiratory failure, currently on Airvo with 40 L with FiO2 of 40%. Acute on chronic kidney disease now requiring renal replacement therapy that started June 10, 2024, underwent dialysis on 06/17/2024 with a total of 2.5 L of ultrafiltration. Hyperkalemia, improved Acute on chronic anemia secondary to above History of CAD with previous PCI Diabetes mellitus type II Hypertension Hyperlipidemia Chronic cephalgia History of UC with previous colectomy and ileostomy History of prostate cancer status post chemoradiation Chronic right heel wound, status post debridement on 05/28/2024 again today June 14, 2024 Obesity, with a BMI of 38.8 kg/m Never tobacco smoker Plan: Titrate FiO2 to maintain saturation above 90% Continue Airvo at 40 L with an FiO2 of 40% Hemodialysis with a total of 2.5 L of ultrafiltration today Repeat chest x-ray in the morning Continue bronchodilators, steroids Continue daptomycin and Zosyn Heparin for DVT prophylaxis Protonix for GI prophylaxis We will continue to follow
[2024-06-17 20:01] LABS: Glucose,Whole Blood 252 mg/dL (70-110)
[2024-06-17] MEDS: methylPREDNISolone SOD SUCCI 40 MG/ML 1 ML VIAL IV SCH (20:07)
[2024-06-17] MEDS: INSULIN DETEMIR (LEVEMIR) 100 UNIT/ML SYR SQ SCH (21:20)
[2024-06-17 23:59] LABS: Glucose,Whole Blood 266 mg/dL (70-110)
[2024-06-18 05:57] LABS: Glucose,Whole Blood 248 mg/dL (70-110)
--- NOTE | 2024-06-18 08:01 | XR ---
EXAMINATION TYPE: XR chest 1V DATE OF EXAM: 06/18/2024 6:48 AM COMPARISON: Multiple radiographs, with the most recent on 06/16/2024 TECHNIQUE: XR chest 1V Portable AP radiograph of the chest. CLINICAL INDICATION:Male, 73 years old with history of Hypoxic respiratory failure; FINDINGS: Lungs/Pleura: No pleural effusion or pneumothorax. Improving multifocal airspace opacities from prior exams. Pulmonary vascularity: Unremarkable. Heart/mediastinum: Cardiomediastinal silhouette is enlarged and stable. Musculoskeletal: No acute osseous pathology. IMPRESSION: Improving multifocal airspace opacities from prior exams. [facility], , 06/18/2024 7:59 AM
--- NOTE | 2024-06-18 11:31 | P.PN ---
Subjective Patient is seen for follow-up for chronic kidney disease and acute kidney injury. Started hemodialysis on 06/10/2024 No significant complaints today. Patient is comfortable. No significant urine output noted. Status post hemodialysis yesterday with UF of 2 L. Oxygen requirement has decreased, currently maintained on 8 L high flow nasal cannula. Overall feeling much better Objective - Vital Signs Vital signs: Vital Signs Temp 97.9 F 06/18/24 07:35 Pulse 92 06/18/24 09:12 Resp 16 06/18/24 08:00 BP 123/61 06/18/24 07:35 Pulse Ox 92 L 06/18/24 08:58 FiO2 40 06/18/24 08:58 Intake & Output 06/17/24 06/18/24 06/18/24 18:59 06:59 18:59 Intake Total 1230 480 775 Output Total 4800 200 Balance -3570 480 575 Weight 98.5 kg 97 kg Intake: Oral 730 480 775 Hemodialysis 500 Output: Stool 300 200 Hemodialysis 2500 Hemodialysis Net Amount 2000 Other: Voiding Method Urinal Urinal Urinal # Bowel Movements 1 1 - Exam Patient is awake, comfortable, no acute distress Examination of the heart S1 and S2 Examination of the lungs bilateral breath sounds are heard Abdomen is soft nontender Examination of lower extremities shows trace edema [employer] exam grossly intact - Labs CBC & Chem 7: 06/16/24 04:52 06/16/24 04:52 Labs: Abnormal Lab Results - Last 24 Hours (Table) 06/17/24 06/17/24 06/17/24 Range/Units 12:09 16:53 19:56 POC Glucose (mg/dL) 250 H 202 H 252 H (70-110) mg/dL 06/17/24 06/18/24 Range/Units 23:57 05:55 POC Glucose (mg/dL) 266 H 248 H (70-110) mg/dL Assessment and Plan Assessment: 1. Acute kidney injury, nonoliguric, cardiorenal. UA is benign and ultrasound does not show any evidence of hydronephrosis. Started hemodialysis on 06/10/2024 for significant oliguric acute kidney injury. 2. Acute on chronic diastolic CHF 3. Volume overload 4. Hypertension with CKD stage IV 5. Acute hypoxic respiratory failure secondary to CHF 6. Coronary artery disease with history of coronary stents 7. Metabolic acidosis maintained on oral sodium bicarb. 8. Right heel wound status post debridement Plan: Hemodialysis in a.m. Schedule IJ permacath placement as patient will need outpatient dialysis given the poor urine output. Encouraged increased oral intake.
[2024-06-18 11:46] LABS: Glucose,Whole Blood 218 mg/dL (70-110)
--- NOTE | 2024-06-18 13:05 | P.PN ---
Subjective Progress Note Date: 06/17/24 Principal diagnosis: Reason for follow-up is right heel diabetic foot ulcer with MRSA infection Patient is a 73-year-old male with a past medical history significant for diabetes mellitus hypertension hyperlipidemia osteomyelitis patient has been dealing with a chronic nonhealing wound to the right heel area for months now and is being treated in outpatient setting by Dr. Jernigan his railroad operating engineer with recent outpatient culture positive for MRSA and is Proteus. On today's evaluation that is 06/17/2024, patient has been afebrile, patient is breathing slightly comfortably however still requiring high flow nasal cannula oxygen patient denies having any chest pain or worsening cough no abdominal pain diarrhea pain to the right heel wound area. Patient did not have any laboratory today Objective - Vital Signs Vital signs: Vital Signs Temp 97.7 F 06/17/24 08:30 Pulse 80 06/17/24 12:07 Resp 20 06/17/24 08:30 BP 128/58 06/17/24 08:30 Pulse Ox 97 06/17/24 08:30 FiO2 40 06/17/24 11:59 Intake & Output 06/16/24 06/17/24 06/17/24 18:59 06:59 18:59 Intake Total 750 100 Output Total 0 150 Balance 750 -150 100 Weight 98.5 kg Intake: IV 50 DAPTOmycin 350 mg In 50 Sodium Chloride 0.9% 50 ml @ 100 mls/hr IVPB Q48H [facility] Rx#:[id number] Oral 600 100 Tube Feeding 100 Output: Urine 0 0 Stool 150 Other: Voiding Method Urinal Urinal Urinal # Bowel Movements 1 - Exam GENERAL DESCRIPTION: An elderly male lying in bed in no distress RESPIRATORY SYSTEM: Unlabored breathing , decreased breath sounds at bases HEART: S1 S2 regular rate and rhythm , ABDOMEN: Soft , no tenderness EXTREMITIES: Right heel is currently dressed - Labs CBC & Chem 7: 06/16/24 04:52 06/16/24 04:52 Labs: Abnormal Lab Results - Last 24 Hours (Table) 06/16/24 06/16/24 06/17/24 Range/Units 16:42 20:03 00:00 POC Glucose (mg/dL) 443 H 433 H 377 H (70-110) mg/dL 06/17/24 06/17/24 Range/Units 05:59 12:09 POC Glucose (mg/dL) 301 H 250 H (70-110) mg/dL Microbiology - Last 24 Hours (Table) 06/13/24 09:39 Blood Culture - Preliminary Blood Assessment and Plan (1) Diabetic infection of right foot Current Visit: Yes Status: Acute Code(s): E11.628 - TYPE 2 DIABETES MELLITUS WITH OTHER SKIN COMPLICATIONS; L08.9 - LOCAL INFECTION OF THE SKIN AND SUBCUTANEOUS TISSUE, UNSP SNOMED Code(s): 680234534 (2) MRSA (methicillin resistant staph aureus) culture positive Current Visit: Yes Status: Acute Code(s): Z22.322 - CARRIER OR SUSPECTED CARRIER OF METHICILLIN RESIS STAPH SNOMED Code(s): 905802417 (3) Diabetic ulcer of right foot Current Visit: No Status: Acute Code(s): E11.621 - TYPE 2 DIABETES MELLITUS WITH FOOT ULCER; L97.519 - NON-PRS CHRONIC ULCER OTH PRT RIGHT FOOT W UNSP SEVERITY SNOMED Code(s): 343143426 (4) Stage III pressure ulcer of right heel Current Visit: No Status: Acute Code(s): L89.613 - PRESSURE ULCER OF RIGHT HEEL, STAGE 3 SNOMED Code(s): 61086042075181 Plan: 1patient with a chronic nonhealing wound to the right heel which he has for couple of months the wound looks deep with a recent culture positive for Proteus and MRSA concerning for wound infection and question for possible deeper infection such as osteomyelitis as wound has been there for couple of months now 2- x-rays of the right heel with no evidence of any bony changes 3-patient has been evaluated by Dr. Carpenter and did have surgical debridement completed on 06/07/2024 and did have a further debridement at the bedside by his railroad operating engineer on 06/14/2024 4-patient remains to be afebrile white count is slightly up yesterday no CBC was done today for now continue with Zosyn and daptomycin as we do not have any good oral option to transition him to Family at bedside question answered Dictation was produced using [employer] software. please excuse any grammatical, word or spelling errors. Time with Patient: Less than 30
--- NOTE | 2024-06-18 13:06 | P.PN ---
Subjective Progress Note Date: 06/18/24 Principal diagnosis: Reason for follow-up is right heel diabetic foot ulcer with MRSA infection Patient is a 73-year-old male with a past medical history significant for diabetes mellitus hypertension hyperlipidemia osteomyelitis patient has been dealing with a chronic nonhealing wound to the right heel area for months now and is being treated in outpatient setting by Dr. Jernigan his line up examiner with recent outpatient culture positive for MRSA and is Proteus. On today's evaluation that is 06/18/2024, Patient is afebrile this morning patient 7 L nasal cannula oxygen P denies having chest pain or cough no nausea vomiting no abdominal pain denies pain to the right heel wound area. Dressing was changed morning by the night nurse as reported by the nursing staff No new lab has been repeated today Objective - Vital Signs Vital signs: Vital Signs Temp 97.5 F L 06/18/24 11:46 Pulse 76 06/18/24 11:46 Resp 18 06/18/24 11:46 BP 112/53 06/18/24 11:46 Pulse Ox 94 L 06/18/24 11:46 FiO2 40 06/18/24 08:58 Intake & Output 06/17/24 06/18/24 06/18/24 18:59 06:59 18:59 Intake Total 1230 480 775 Output Total 4800 200 Balance -3570 480 575 Weight 98.5 kg 97 kg Intake: Oral 730 480 775 Hemodialysis 500 Output: Stool 300 200 Hemodialysis 2500 Hemodialysis Net Amount 2000 Other: Voiding Method Urinal Urinal Urinal # Bowel Movements 1 1 - Exam GENERAL DESCRIPTION: An elderly male lying in bed in no distress RESPIRATORY SYSTEM: Unlabored breathing , decreased breath sounds at bases HEART: S1 S2 regular rate and rhythm , ABDOMEN: Soft , no tenderness EXTREMITIES: Right heel is currently dressed - Labs CBC & Chem 7: 06/16/24 04:52 06/16/24 04:52 Labs: Abnormal Lab Results - Last 24 Hours (Table) 06/17/24 06/17/24 06/17/24 Range/Units 16:53 19:56 23:57 POC Glucose (mg/dL) 202 H 252 H 266 H (70-110) mg/dL 06/18/24 06/18/24 Range/Units 05:55 11:45 POC Glucose (mg/dL) 248 H 218 H (70-110) mg/dL Assessment and Plan (1) Diabetic infection of right foot Current Visit: Yes Status: Acute Code(s): E11.628 - TYPE 2 DIABETES MELLITUS WITH OTHER SKIN COMPLICATIONS; L08.9 - LOCAL INFECTION OF THE SKIN AND SUBCUTANEOUS TISSUE, UNSP SNOMED Code(s): 786465412 (2) MRSA (methicillin resistant staph aureus) culture positive Current Visit: Yes Status: Acute Code(s): Z22.322 - CARRIER OR SUSPECTED CARRIER OF METHICILLIN RESIS STAPH SNOMED Code(s): 422481618 (3) Diabetic ulcer of right foot Current Visit: No Status: Acute Code(s): E11.621 - TYPE 2 DIABETES MELLITUS WITH FOOT ULCER; L97.519 - NON-PRS CHRONIC ULCER OTH PRT RIGHT FOOT W UNSP SEVERITY SNOMED Code(s): 336172346 (4) Stage III pressure ulcer of right heel Current Visit: No Status: Acute Code(s): L89.613 - PRESSURE ULCER OF RIGHT HEEL, STAGE 3 SNOMED Code(s): 95168397341299 Plan: 1patient with a chronic nonhealing wound to the right heel which he has for couple of months the wound looks deep with a recent culture positive for Proteus and MRSA concerning for wound infection and question for possible deeper infection such as osteomyelitis as wound has been there for couple of months now 2- x-rays of the right heel with no evidence of any bony changes 3-patient has been evaluated by Dr. Carpenter and did have surgical debridement completed on 06/07/2024 and did have a further debridement at the bedside by his line up examiner on 06/14/2024 4-patient remains to be afebrile patient is currently being treated with Zosyn and daptomycin as we do not have any good oral option to transition him to however patient has received adequate IV antibiotic during inpatient and may not need any antibiotic on discharge will reevaluate tomorrow at the time of dressing changes Family at bedside question answered Dictation was produced using [employer] dictation software. please excuse any grammatical, word or spelling errors. Time with Patient: Less than 30
--- NOTE | 2024-06-18 15:52 | P.PN ---
Progress Note - Text Progress Note Date: 06/18/24 Chief Complaint: Short of breath Pleasant 73-year-old patient follows with Dr. Dennis. Event Attendant: Dr. Bales Chronic medical conditions include hypertension, hyperlipidemia, type 2 diabetes, mood disorder, and CAD , ostomy for 25 years, July 2023 stent to the LAD and second diagonal branch by Dr. Bales. April 26, [address] Bales: Following a non-ST relation NE: Patent stent to mid LAD. Late stent thrombosis of the second diagonal branch of the LAD. Severe disease involving the OM1 appears unchanged. Attempted balloon angioplasty performed to the second of diagonal branch with suboptimal results. Dose of Imdur was increased and Ranexa was added. Patient recently in the hospital from May 28 through May 31. Chronic headaches: MRI unremarkable. MR angio head and neck: MR angio head without contrast: No evidence of aneurysm or significant stenosis. Atrophic right A1 segment. origin of the right posterior cerebral artery.MRI of the brain nonspecific. Was seen by neurology Dr. Gay. Patient to follow-up outpatient Chronic right heel wound seen by Dr. Carpenter from vascular deep debridement was carried out. No need for antibiotics. Patient to follow-up with Dr. Jernigan at the wound center. Shortness of breath: Was seen by cardiology. Not for any further intervention. Patient doing well when discharged. Patient presented increased shortness of breath when at home. His pulse ox dropped out of the 80s. Increasing shortness of breath. Decreased appetite. No fever or chills. June 10: Using his BiPAP. Patient seen this morning. Later this afternoon. Right femoral vein dialysis catheter was placed by Dr. Carpenter from vascular for dialysis. Baseline some shortness of breath. Due for first dialysis today. Patient is right heel culture grew MRSA Proteus P Corynebacterium on May 29. Patient is on IV daptomycin and IV cefepime per ID. June 11: Patient seen this afternoon. On BiPAP. Getting hemodialysis. Remains on IV daptomycin IV Zosyn. Tired. Also getting IV iron. Patient really did not eat today. Because of BiPAP. Cut back Levemir to 26 units at night. DC scheduled NovoLog for now. June 12: Overflowing the ICU. Remains on BiPAP. 04/05/90%. at the bedside. Remains on IV daptomycin and IV Zosyn. For dialysis today. X-ray continues shows infiltrates. Significantly hypoxic. N.p.o. June 13: ICU. Remains on BiPAP. 12/6/90% moderate take anything by mouth. Spoke to the nurse have TPN lipids ordered. Remains on IV daptomycin IV Zosyn. Chest x-ray continues to show diffuse infiltrates. Continues to be followed by cardiology pulmonary ID nephrology. June 14: ICU. Later this afternoon patient was put on Airvo. 60/60. Has some delirium. Remains on IV daptomycin and IV Zosyn. Had 2 L ultrafiltration yesterday. Patient getting daily dialysis for now. As patient is oliguric per nephrology Lasix has been held. TPN was ordered yesterday per the nurse culture that returned to feed the patient. Will see how that goes. Dietitian on the case. June 15: ICU. Patient be getting hypotensive. Some medications held back by cardiology. Hemodialysis done today. Patient remains on Airvo though at 50/50. at the bedside. Plans this afternoon to get him up in the chair. Remains on daptomycin and IV Zosyn. IV Lasix been discontinued. Patient tolerating some liquid diet. June 16: Patient moved to the ICU. Remains on Airvo. 45/45. at the bedside. Tolerating full liquids. Spoke to the about the morphine. His headaches are chronic. Use Fioricet as needed. Remains on IV daptomycin and IV Zosyn. IV Solu-Medrol. Amlodipine dose cut back. PT OT. June 17: On 3 S., telemetry floor. Getting hemodialysis today. Remains on IV daptomycin IV Zosyn. On full liquid diet. Advance to ground diet. Minimal urine output. DC fluid restriction. Awake communicating. Accu-Cheks running high. Increase Levemir to 28 units subcu twice daily. Seen by PT OT. Maximum assist. On Airvo 40/40. Cut back Solu-Medrol to every 12. June 18: On a recliner. 7 L nasal cannula. Decreased appetite. at the bedside. Accu-Chek in 200s. IJ PermCath placement pending. Encourage oral intake. Ordered incentive spirometry Active Medications Acetaminophen (Acetaminophen Tab 325 Mg Tab) 650 mg PO Q6HR PRN PRN Reason: Mild Pain or Fever > 100.5 Last Admin: 06/18/24 09:59 Dose: 650 mg Acetaminophen/Butalbital/Caffeine (Butalb/Apap/Caff 50-325-40mg Tab) 1 each PO Q4H PRN PRN Reason: Migraine Headache Albuterol/Ipratropium (Ipratropium-Albuterol 3 Ml Neb) 3 ml INHALATION RT-QID [facility] Last Admin: 06/18/24 15:03 Dose: 3 ml Albuterol/Ipratropium (Ipratropium-Albuterol 3 Ml Neb) 3 ml INHALATION RT-QID PRN PRN Reason: Shortness Of Breath Or Wheezing Allopurinol (Allopurinol 100 Mg Tab) 100 mg PO DAILY [facility] Last Admin: 06/18/24 09:42 Dose: 100 mg Amlodipine Besylate (Amlodipine 5 Mg Tab) 5 mg PO DAILY [facility] Last Admin: 06/18/24 09:42 Dose: 5 mg Aspirin (Aspirin 81 Mg) 81 mg PO DAILY [facility] Last Admin: 06/18/24 09:42 Dose: 81 mg Atorvastatin Calcium (Atorvastatin 40 Mg Tab) 40 mg PO DAILY [facility] Last Admin: 06/18/24 09:42 Dose: 40 mg Budesonide (Budesonide 1 Mg/2 Ml Nebu) 1 mg INHALATION RT-BID [facility] Last Admin: 06/18/24 08:58 Dose: 1 mg Calcitriol (Calcitriol 0.25 Mcg Cap) 0.25 mcg PO Mo@0900 [facility] Last Admin: 06/17/24 11:37 Dose: 0.25 mcg Clopidogrel Bisulfate (Clopidogrel 75 Mg Tab) 75 mg PO DAILY [facility] Last Admin: 06/18/24 09:42 Dose: 75 mg Collagenase (Collagenase 250 Unit/Gm Ointment 30 Gm Tube) 1 applic TOPICAL DAILY [facility]; Protocol Last Admin: 06/18/24 09:44 Dose: 1 applic Darbepoetin Silverio (Darbepoetin Silverio 40 Mcg/0.4 Ml Syringe) 40 mcg SQ Q7D [facility] Last Admin: 06/12/24 12:47 Dose: 40 mcg Dextrose/Water (Dextrose 50% Syringe 50 Ml) 25 ml IVP PER PROTOCOL PRN; Protocol PRN Reason: Hypoglycemia Dextrose/Water (Dextrose 50% Syringe 50 Ml) 50 ml IVP PER PROTOCOL PRN; Pro tocol PRN Reason: Hypoglycemia Ergocalciferol (Ergocalciferol 1,250 Mcg (50,000 Iu) Capsule) 1,250 mcg PO Q14D [facility] Last Admin: 06/05/24 08:42 Dose: 1,250 mcg Escitalopram Oxalate (Escitalopram 10 Mg Tab) 10 mg PO DAILY [facility] Last Admin: 06/18/24 09:42 Dose: 10 mg Gabapentin (Gabapentin 100 Mg Cap) 100 mg PO HS [facility] Last Admin: 06/17/24 20:08 Dose: 100 mg Haloperidol Lactate (Haloperidol Lactate 5 Mg/Ml 1 Ml Vial) 5 mg IVP ONCE PRN PRN Reason: Agitation or Acute Psychosis Last Admin: 06/14/24 23:51 Dose: 5 mg Haloperidol Lactate (Haloperidol Lactate 5 Mg/Ml 1 Ml Vial) 5 mg IVP Q8HR PRN PRN Reason: Agitation or Acute Psychosis Last Admin: 06/13/24 03:01 Dose: 5 mg Heparin Sodium (Porcine) (Heparin Sodium,Porcine 5,000 Unit/Ml 1 Ml Vial) 5,000 unit SQ Q8HR [facility] Last Admin: 06/18/24 09:43 Dose: 5,000 unit Hydralazine HCl (Hydralazine Hcl 25 Mg Tab) 25 mg PO TID [facility] Last Admin: 06/18/24 09:42 Dose: 25 mg Daptomycin 350 mg/ Sodium (Chloride) 50 mls @ 100 mls/hr IVPB Q48H [facility]; Protocol Last Admin: 06/18/24 09:43 Dose: 100 mls/hr Piperacillin Sod/Tazobactam (Sod 3.375 gm/ Sodium Chloride) 100 mls @ 25 mls/hr IVPB Q12HR [facility]; Protocol Last Admin: 06/18/24 10:23 Dose: 25 mls/hr Insulin Aspart (Insulin Aspart (Novolog) 100 Unit/Ml Vial) 0 unit SQ Q6HR [facility]; Protocol Last Admin: 06/18/24 11:57 Dose: 4 unit Insulin Detemir (Insulin Detemir (Levemir) 100 Unit/Ml Syr) 28 unit SQ BID@0700,2100 [facility] Last Admin: 06/18/24 06:27 Dose: 28 unit Isosorbide Mononitrate (Isosorbide Mononitrate Er 60 Mg Tab.Er.24h) 60 mg PO DAILY [facility] Last Admin: 06/18/24 09:42 Dose: 60 mg Methylprednisolone Sodium Succinate (Methylprednisolone Sod Succi 40 Mg/Ml 1 Ml Vial) 40 mg IV Q12H [facility] Last Admin: 06/18/24 09:43 Dose: 40 mg Metoprolol Succinate (Metoprolol Succinate (Er) 25 Mg Tab.Er.24h) 25 mg PO DAILY [facility] Last Admin: 06/18/24 09:42 Dose: 25 mg Naloxone HCl (Naloxone 0.4 Mg/Ml 1 Ml Vial) 0.2 mg IV Q2M PRN PRN Reason: Opioid Reversal Collagenase 250 Unit /Gm Ointment 30 Gm Tube 1 each TOPICAL DAILY [facility]; Protocol Last Admin: 06/18/24 11:59 Dose: Not Given Pantoprazole Sodium (Pantoprazole 40 Mg/10 Ml Vial) 40 mg IVP DAILY [facility] Last Admin: 06/18/24 09:43 Dose: 40 mg Ranolazine (Ranolazine 500 Mg Tab.Er.12h) 500 mg PO Q12HR [facility] Last Admin: 06/18/24 09:42 Dose: 500 mg Tamsulosin HCl (Tamsulosin 0.4 Mg Cap.Er.24h) 0.4 mg PO PC-BRKFST [facility] Last Admin: 06/18/24 09:43 Dose: 0.4 mg Triamcinolone Acetonide (Triamcinolone Acet 0.5% Cream 15 Gm Tube) 1 applic TOPICAL BID PRN; Protocol PRN Reason: rash/dry skin Social history: Non-smoking. No alcohol. On examination: VITAL SIGNS: 97.5, 72, 18, 112 x 53, 92% 7 L GENERAL APPEARANCE: Reclining in bed, awake, HEENT: Normal external appearance of nose and ear. Oral cavity normal EYES: Pupils equal. Conjunctiva normal. NECK: JVD not raised. Mass not palpable. RESPIRATORY: Respiratory effort normal lungs decreased breath sounds CARDIOVASCULAR: First and second sounds normal. Minimal edema in the right leg ABDOMEN: Soft. Liver and spleen not palpable. No tenderness. No right upper quadrant tenderness. No mass palpable. Colostomy bag with liquid stool PSYCHIATRY: Alert oriented x 3, mood affect normal Extremity: Right foot in dressing INVESTIGATIONS, reviewed in the clinical context: June 16: White count 12.4 hemoglobin 10.1 platelets 202 sodium 128 potassium 4.4 BUN 32 creatinine 3.11 June 15: White count 9.4 hemoglobin 9.4 platelets 2 3 potassium 4.1 bicarb 25 BUN 32 creatinine 3.14 June 14: White count 16.2 hemoglobin 9.2 platelets 236 sodium 134 potassium 4.3 BUN 68 creatinine 3.26 June 13: White count 16.5 hemoglobin 9.3 platelets 273 sodium 135 potassium 4.7 BUN 38 creatinine 3.34 June 11: Potassium 4.9 BUN 108 creatinine 4.1 June 10: White count 12.8 hemoglobin 7.9 platelets 335 sodium 135 potassium 5.2 BUN 118 creatinine 4.1 June 04: White count 10.2 hemoglobin 10.4 platelet 374 sodium 135 potassium 4.6 BUN 66 creatinine 2.71 troponin I less than 0.012 proBNP 2550 EKG tracing personally reviewed by me-atrial fibrillation. Rate 68 Chest x-ray film personally reviewed by me-pulm edema Recent labs May 30: Potassium 4.7 BUN 42.3 creatinine 2.3 Assessment and plan: -Acute on chronic congestive heart failure exacerbation, from diastolic dysfunction EF 55 to 60%.: Better IV Lasix discontinued Started on dialysis June 10.- -Acute hypoxic respiratory failure from pulmonary edema: Improving slowly Initially BiPAP 12/6/90%. Then Airvo. Today on nasal cannula 7 L -Acute respiratory distress syndrome, multifactorial: Slowly improving On Airvo IV Solu-Medrol, cut back to 40 mg every 12 -COPD non-smoker DuoNeb 4 times daily. Nebulized Pulmicort -Chronic ostomy-functioning well -Chronic cephalgia. Patient stated headaches for greater than 6 months. Practically every day. Does not interfere with his eating. No exacerbating relieving factors: Possible tension headaches. CT scan of the brain shows some chronic changes MRI and MRI of the brain showing chronic changes. Seen by Dr. Gay from neurology a week ago. Further outpatient follow-up with neurology -Acute delirium/metabolic encephalopathy. Multifactorial: Much improved -Right heel wound. Dry. Follows with Dr. Jernigan at the wound center. Dr. Carpenter from vascular-. Deep debridement carried recently Wound culture [May 29] MRSA, Proteus IV cefepime, daptomycin per ID -Chronic parastomal hernia #Hypertension: Amlodipine. Toprol-XL. Hydralazine -Acute kidney injury, likely cardiorenal: On hemodialysis Right femoral vein dialysis catheter placed by Dr. Carpenter on June 10. Hemodialysis started June 10-Daily For PermCath placement -CKD likely nephrosclerosis, diabetic nephropathy Creatinine was 1.6 on April 28, 2024. -CAD with stent Toprol-XL -Anemia in the setting of chronic kidney disease. Iron deficiency anemia. Given IV iron -Primary osteoarthritis Pain medication as needed -History of prostate cancer with radiation and chemo in 2020. #Diabetes mellitus type II, chronically on insulin: Uncontrolled with hyperglycemia Increase Levemir to 28 units SQ every 12 #Hyperlipidemia: Lipitor #GERD: Protonix -Full code Past Medical History Past Medical History: Cancer, Chest Pain / Angina, Diabetes Mellitus, Eye Disorder, GERD/Reflux, Hyperlipidemia, Hypertension, Osteoarthritis (OA), Prostate Disorder, Renal Disease Additional Past Medical History / Comment(s): HX OF ULCERATIVE COLITIS, ileostomy PARASTOMAL HERNIA, PROSTATE CA WITH RADIATION AND CHEMO IN 2020, LOW KIDNEY FUNCTION,Covid Dec 2022, Influenza A Jun 2023, eye condition, unsure of name. History of Any Multi-Drug Resistant Organisms: MRSA Date of last positivie culture/infection: 05/24/24 MDRO Source:: rt heel, scalp Past Surgical History: Appendectomy, Bowel Resection, Heart Catheterization, Heart Catheterization With Stent Additional Past Surgical History / Comment(s): COLECTOMY, RECTUM REMOVED, ELLIOTT CATARACTS removed, ILEOSTOMY, HERNIA SURGERY. Past Anesthesia/Blood Transfusion Reactions: No Reported Reaction Additional Past Anesthesia/Blood Transfusion Reaction / Comment(s): no problems with prior blood transfusions. Date of Last Stent Placement:: 08/01/2023 Past Psychological History: No Psychological Hx Reported Smoking Status: Never smoker Past Alcohol Use History: None Reported Past Drug Use History: None Reported
[2024-06-18 16:31] LABS: Glucose,Whole Blood 265 mg/dL (70-110)
--- NOTE | 2024-06-18 17:49 | P.PN ---
Subjective HISTORY OF PRESENT ILLNESS: This is 73-year-old male patient of Dr. Bales with past medical history of coronary artery disease status post PCI of the LAD and second diagonal branch, known severe disease involving the OM1, heart failure with preserved EF, diabetes, hypertension, dyslipidemia, chronic kidney disease, dilated ascending aorta, history of colectomy and overweight. We have been asked to evaluate the patient for CHF. Patient was recently hospitalized 05/28 - 05/31 and was treated for CHF and acute kidney injury. Patient states that when he went home he did not feel any better related to shortness of breath and when he had come in. He states he continues to have shortness of breath which is worsening and also has a little lightheadedness and dizziness. He complains of chest pain across the mid chest and also some left lower abdominal pain. He denies cough but he states in the morning he has sputum production. No significant lower extremity edema. He does have a chronic wound to the right foot with the boot in place. Blood pressure 121/61, heart rate 69, pulse ox 96% on 2 and half liters nasal cannula. Patient has been started on IV Lasix 80 mg every 12 hours. -EKG: Atrial fibrillation [address] changes -Chest x-ray: Correlate for volume overload -Laboratory studies: WBC 10.2, hemoglobin 10.4, platelet count 374. Sodium 135, potassium 4.6, BUN 66 and creatinine 2.71. Troponin negative x 1. proBNP 2550. -Home cardiac medications: Amlodipine 10 mg daily, aspirin 81 mg daily, atorvastatin 40 mg daily, Plavix 75 mg daily, Farxiga 10 mg daily, hydralazine 25 mg 3 times daily, Imdur 60 mg daily, Toprol XL 25 mg daily, Ranexa 500 mg every 12 hours, Demadex 40 mg daily. -Echocardiogram from 05/28/2024 revealed technical difficult study minimal mitral and tricuspid regurgitation. No pericardial effusion. -Cardiac catheterization history: April 26, 2024 revealing patent stent in the mid LAD. Late stent thrombosis of the second diagonal branch of the LAD, severe disease involving OM1 appeared unchanged compared to before, attempted balloon angioplasty was performed of second diagonal branch with suboptimal results June 09, 2024 The patient was seen and evaluated this morning. Unfortunately the kidney function is worse. He is still in failure now requiring BiPAP. The chest x-ray from yesterday showed finding consistent with failure. He continues to be on Lasix IV. Nephrology team is on the case. The physical examination is remarkable for regular rhythm wit diminished breathing sounds bilaterally and mild bilateral expiratory wheezing and mild bilateral lower extremities edema. Beside that he is hyperkalemic that is under treatment at this point. 06/10/2024 Patient examined this morning at the bedside. Patient currently reports shortness of breath. He remains on IV Lasix. He denies any chest pain or pressure. Creatinine is worsening today at 4.1. Patient states that he spoke with nephrology this morning and plan is to begin hemodialysis today. 06/11 Patient seen and examined Patient is preparing to have his second dialysis treatment this morning. He is on 100% BiPAP pulse ox 92%. Blood pressure 129/58, heart rate 70. No repeat blood work today. 06/12/2024 Patient is seen and examined at bedside this a.m. Patient is maintained on BiPAP support, saturating 92%. Hemodynamically stable. EKG shows sinus rhythm on telemetry. 06/13/2024, Seen and examined at bedside this a.m. Patient is BiPAP dependent and is not able to tolerate removal of BiPAP even for food and medications. BP 120/50, heart rate 80 bpm, sinus rhythm on telemetry, 95% saturation on BiPAP support Minimal urine output chest x-ray shows significant pulmonary edema suggestive of volume overload. Would recommend continuing fluid removal with hemodialysis and hold his antihypertensives before his hemodialysis so that more volume can be removed during dialysis session. 06/14/24 Patient is getting hemodialysis, fluid status appears to be improved. Still on continuous BiPAP support . 06/15/2024 Patient noticed to be hypotensive today after hemodialysis. We will hold his antihypertensives. Patient has had significant negative fluid balance with continuous hemodialysis in last 2 days. I would recommend reducing the amount of ultrafiltrate as I feel that patient is now getting towards more dehydration. 06/16/2024 Patient was transferred out of ICU to 3 S. floor today. Anticipated hemodialysis tomorrow. Minimal urine output. Lawson catheter is out. Blood pressure systolic around 110, continues to be in sinus rhythm on telemetry. He was hypotensive yesterday. Today blood pressure is better. 06/17/2024 Patient examined this morning at the bedside. Patient reports improvement in his shortness of breath. He remains on Airvo. He denies chest pain or pressure. He states he is supposed to get hemodialysis today. Blood pressure stable with a systolic in the 120s. 06/18/2024 Patient examined this morning at the bedside. Patient reports improvement in his shortness of breath. He denies chest pain or pressure. He underwent hemodialysis yesterday. Patient is scheduled to undergo hemodialysis catheter insertion tomorrow with Dr. Carpenter. Vital signs are stable. Blood pressure 126/61. Patient has been weaned off Airvo and is currently on 7 L high flow nasal cannula with oxygen saturations greater than 92%. Telemetry reveals sinus mechanism. PHYSICAL EXAM: VITAL SIGNS: Reviewed. GENERAL: Well-developed in no acute distress. NECK: Supple. No JVD or thyromegaly LUNGS: Respirations even and unlabored. Lungs clear to auscultation. HEART: Regular rate and rhythm. S1 and S2 heard. + Systolic murmur. EXTREMITIES: Normal range of motion. No clubbing or cyanosis. Peripheral pulses intact. 1+ bilateral lower extremity edema ASSESSMENT: Shortness of breath Acute on chronic diastolic heart failure Acute on chronic kidney disease, initiated on hemodialysis 06/10/2024 History of coronary artery disease with PCI of the LAD and second diagonal with known severe disease involving the OM1 Diabetes Hypertension Dyslipidemia Dilated ascending aorta History of colectomy Nonhealing right heel wound PLAN: Continue current cardiac medications Continue hemodialysis per nephrology. Continue to monitor kidney function Patient to undergo hemodialysis catheter insertion tomorrow with Dr. Carpenter Wean oxygen as tolerated Continue to monitor blood pressure Further recommendations pending patient course Nurse practitioner note has been reviewed by physician. Signing provider agrees with the documented findings, assessment, and plan of care documented by [employer] as a scribe. Objective - Vital Signs Vital signs: Vital Signs Temp 97.7 F 06/18/24 15:45 Pulse 70 06/18/24 15:45 Resp 18 06/18/24 15:45 BP 126/61 06/18/24 15:45 Pulse Ox 92 L 06/18/24 15:45 FiO2 40 06/18/24 08:58 Intake & Output 06/17/24 06/18/24 06/18/24 18:59 06:59 18:59 Intake Total 9355 461 6320 Output Total 4800 200 Balance -3570 480 815 Weight 98.5 kg 97 kg Intake: Oral 667 885 6306 Hemodialysis 500 Output: Stool 300 200 Hemodialysis 2500 Hemodialysis Net Amount 1999 Other: Voiding Method Urinal Urinal Urinal # Bowel Movements 1 1 - Labs CBC & Chem 7: 06/16/24 04:52 06/16/24 04:52 Labs: Abnormal Lab Results - Last 24 Hours (Table) 06/17/24 06/17/24 06/18/24 Range/Units 19:56 23:57 05:55 POC Glucose (mg/dL) 252 H 266 H 248 H (70-110) mg/dL 06/18/24 06/18/24 Range/Units 11:45 16:29 POC Glucose (mg/dL) 218 H 265 H (70-110) mg/dL
--- NOTE | 2024-06-18 18:23 | P.PN ---
Subjective Progress Note Date: 06/18/24 Patient is a 73-year-old male with past medical history significant for hypertension, hyperlipidemia, coronary artery disease with previous PCI/stenting, heart failure, chronic kidney disease, diabetes mellitus, chronic right heel wound, ulcerative colitis with previous colectomy and ileostomy. Of note, patient had a recent hospitalization late May and was just discharged 05/31/2024 for CHF exacerbation. Echocardiogram done during this hospitalization estimating a preserved left ventricular ejection fraction of 55 to 60%. Limited study, but no acute valvular abnormalities reported. Presented the emergency department on 06/04/2024 with a chief complaint of shortness of breath, mostly on exertion. Chest x-ray showing cardiomegaly, mild pulmonary vascular congestion, and a small pleural effusion on the left. NT proBNP elevated 2550. Currently receiving Lasix 80 mg twice daily. CBC: WBC count 10.2, hemoglobin 10.4, hematocrit 32.5, platelets 374. CMP: Sodium 135, potassium 4.6, chloride 101, serum bicarb 18, BUN 66, creatinine 2.71, glucose 139. Troponin is less than 0.012. Patient currently being evaluated on the general medical floor. Appears weak and deconditioned. He is resting in bed on 1 L/min nasal cannula. No respiratory distress noted. Complaining of a generalized headache, which he states is chronic. States that he has been short of breath on exertion for several months to almost 1 year. Particularly on exertion such as climbing stairs or walking to the bathroom. Denies history of COPD or asthma. Never tobacco smoker. Worked in an [employer] shop before he retired. Denies cough. Denies infectious-like symptoms. Current vital signs: Temperature 98 F, heart rate 78 bpm, blood pressure 145/54 mmHg, nontachypneic, SpO2 recorded at 91% on 1 L/min nasal cannula. The patient is seen today June 07, 2024 in follow-up on the regular medical floor. He is awake and alert in no acute distress. Sitting up at the bedside. Maintaining O2 saturations in the 90s on 3 L/min per nasal cannula. White count 9.8. Hemoglobin 8.9. Platelets 366. Sodium 140. Potassium 4.7. Bicarb 22. BUN 60. Creatinine 2.4. Glucose 97. He remains on DuoNeb and elations, Pulmicort inhalations. Lasix 80 mg IV every 12 hours. He is currently -1.1 L balance. Antibiotics in the form of cefepime and daptomycin for his diabetic ulcer of the right foot. X-ray revealed no osseous erosion or acute fracture. The patient is seen today June 08, 2024 in follow-up on the regular medical floor. He did have issues with worsening shortness of breath. He is currently on BiPAP 12/6 and 40% FiO2. White count 6.3. Hemoglobin 8.5. Platelets 357. Sodium 136. Potassium 5.8. Bicarb 21. BUN 64. Creatinine 2.4. Glucose 178. Chest x-ray continues to show evidence of congestive heart failure. He is currently on Lasix 80 mg IV every 12 hours. Continued on bronchodilators and steroids. Remains on antibiotics in the form of cefepime and daptomycin. The patient is seen today June 09, 2024 in follow-up on the regular medical floor. He is currently resting comfortably in bed. Awake and alert in no acute distress. Breathing easier today compared to yesterday. He is currently on BiPAP 12/6 and 40% FiO2. White count 10.1. Hemoglobin 8.0. Platelets 339. Sodium 136. Potassium 5.8. Bicarb 21. BUN 94. Creatinine 3.4. Glucose 234. He remains on DuoNeb and elations, Pulmicort inhalations, Solu-Medrol. Remains on IV diuretics. Remains on cefepime and daptomycin. Receiving Lokelma. The patient is seen today June 10, 2024 in follow-up on the regular medical floor. He is currently sitting up at the bedside. Awake and alert in no acute distress. He is requiring BiPAP support at 12/6 and 60% FiO2. Alternating with oxygen at 4 L/min per nasal cannula. He is continued on DuoNeb inhalations, Pulmicort inhalations, Solu-Medrol. He remains on antibiotics in the form of cefepime and daptomycin. Receiving iron supplement. Continued on IV diuretics. Continued on sodium bicarb tablets. White count 12.8. Hemoglobin 7.9. Platelets 335. Sodium 135. Potassium 5.2. Bicarb 23. BUN 118. Creatinine 4.1. Glucose 131. Plan is for placement of a hemodialysis catheter today and to receive hemodialysis today and tomorrow per nephrology. The patient is seen today June 12, 2024 in follow-up in the intensive care unit. He was transferred here last evening as his oxygen requirements increased. He is currently on BiPAP 12/6 and 90% FiO2. Arterial blood gases revealed a PaO2 of 60, pCO2 39 and a pH of 7.44. Chest x-ray continues to show diffuse bilateral airspace disease. Blood culture revealed no growth. White count 15.8. Hemoglobin 8.4. Platelets 257. Sodium 135. Potassium 4.4. Bicarb 23. BUN 90. Creatinine 3.51. Glucose 165. proBNP 7440. Procalcitonin pending. He is continued on daptomycin and Zosyn. Remains on Lasix 80 mg IV every 12 hours. Oertli in a -4 L balance. He did receive hemodialysis yesterday and again today 2 L removed each time. He is continued on DuoNeb and elations, Pulmicort inhalations. Solu-Medrol. The patient is seen today June 13, 2024 in follow-up in the intensive care unit. He remains mostly BiPAP dependent currently on 12/6 and 90% FiO2. No IV fluids. The plan is for hemodialysis again today which will be day #4 with approximately 2 L removed each time. Chest x-ray is showing evidence of acute respiratory distress syndrome. His PF ratio is 66 indicating severe ARDS. Blood culture revealed no growth. White count 16.5. Hemoglobin 9.3. Platelets 273. Sodium 135. Potassium 4.7. Bicarb 25. BUN 78. Creatinine 3.34. Glucose 211. Procalcitonin is elevated at 4.78. He remains on DuoNeb inhalations, Pulmicort inhalations, Solu-Medrol. Remains on daptomycin and Zosyn. Remains on Lasix 80 mg IV every 12 hours. Currently in a -4 L balance. Heparin for DVT prophylaxis. Protonix for GI prophylaxis. The patient is seen today June 14, 2024 in follow-up in the intensive care unit. He is awake and alert in no acute distress. He remains on BiPAP 12/6 and 60% FiO2. He is receiving hemodialysis again today with a goal of 2 to 2-1/2 L to be removed. His chest x-ray is showing improvement. Microbiology reveals no growth. He remains on Zosyn. Procalcitonin was 4.78. He has normal saline at KVO. White count 16.2. Hemoglobin 9.2. Platelets 236. Sodium 134. Potassium 4.3. Bicarb 27. BUN 68. Creatinine 3.26. Glucose 210. He remains on DuoNeb inhalations, Pulmicort inhalations, IV Solu-Medrol. He remains on daptomycin and Zosyn. He remains on Lasix 80 mg IV every 12 hours. Currently in a -7.8 L balance. Heparin for DVT prophylaxis. He did undergo debridement with surgical open necrotic tissue of the right heel for diabetic Walter grade 2 ulceration. The patient is seen today June 15, 2024 in follow-up in the intensive care unit. He is currently sitting up in bed. Awake and alert in no acute distress. He is continued on BiPAP 12/6 and 50% FiO2. He is alternating with Airvo high flow oxygen at 50 L and 60% FiO2. Chest x-ray showing improved aeration. He received hemodialysis yesterday with another 2-1/2 L removed. The plan is for hemodialysis again today. He has normal staying at [facility]. He remains on daptomycin and Zosyn. He remains on DuoNeb and elations, Pulmicort inhalations, Solu-Medrol. Heparin for DVT prophylaxis. Remains on Lasix 80 mg IV every 12 hours. White count 9.4. Hemoglobin 9.4. Platelets 203. Sodium 131. Potassium 4.1. Bicarb 25. BUN 72. Creatinine 3.14. Glucose 299. The patient is seen today June 16, 2024 in follow-up in the intensive care unit. He is currently sitting up in bed. Awake and alert in no acute distress. He is maintaining good O2 saturations in the 90s on Airvo high flow oxygen at 50 L and 50% FiO2. He has been off BiPAP for over 24 hours. He received hemodialysis yesterday with 2.5 L removed. The plan is for hemodialysis tomorrow. Chest x-ray shows similar bilateral airspace opacities. Blood culture revealed no growth. White count 12.4. Hemoglobin 10.1. Platelets 202. Sodium 128. Potassium 4.4. Bicarb 21. BUN 72. Creatinine 3.11. Glucose 330. He remains on DuoNeb inhalations, Pulmicort inhalations. Heparin for DVT prophylaxis. Remains on IV Solu-Medrol. Remains on Zosyn. 06/17/2024, the patient is being seen for a follow-up. There is a 73-year-old female patient who is being seen in follow-up regarding his hypoxic respiratory failure. On today's evaluation, the patient remains on Airvo at 40 L with an FiO2 of 40%. Current pulse ox 91 to 92%. At the same time, the patient is undergoing hemodialysis with a goal of ultrafiltration of around 2.5 L. He remains on a combination of Zosyn and daptomycin. The patient had a MRSA he will infection and ID is on the case. The patient is awake and alert and communicating. Remains on DuoNeb nebulized treatments [id number]. Remains on IV Solu-Medrol 40 mg every 12 hours. Rest of the medications are essentially unchanged. Most recent chest x-ray from 06/16/2024 was reviewed and shows multifocal airspace opacities. The patient had a previous echocardiogram done on 05/29/2024 indicating a preserved LV function with an ejection fraction of 55 to 60%. No significant valvular abnormalities. Comorbidities include coronary artery disease with previous PCI and stenting, chronic kidney disease, currently on hemodialysis, diabetes mellitus type 2, chronic right heel wound, ulcerative colitis and the patient has a colectomy and diverting ileostomy along with hypertension hyperlipidemia. 06/18/2024, the patient is feeling better and less short of breath. Noted the patient was taken off the Airvo and the patient is currently in 70s of oxygen by nasal cannula. His oxygenation improved post hemodialysis yesterday it was performed with a total of 3 L of ultrafiltration. The repeat chest x-ray from today also shows improvement in the multifocal airspace opacities that was seen on previous examinations. The patient is producing minimal amount of urine output. Remains on Zosyn. Remains on daptomycin. Rest of the medications are essentially unchanged. No blood work from today. Objective - Vital Signs Vital signs: Vital Signs Temp 97.5 F L 06/18/24 11:46 Pulse 76 06/18/24 11:46 Resp 18 06/18/24 11:46 BP 112/53 06/18/24 11:46 Pulse Ox 94 L 06/18/24 11:46 FiO2 40 06/18/24 08:58 Intake & Output 06/17/24 06/18/24 06/18/24 18:59 06:59 18:59 Intake Total 1230 480 775 Output Total 4800 200 Balance -3570 480 575 Weight 98.5 kg 97 kg Intake: Oral 730 480 775 Hemodialysis 500 Output: Stool 300 200 Hemodialysis 2500 Hemodialysis Net Amount 1999 Other: Voiding Method Urinal Urinal Urinal # Bowel Movements 1 1 - Exam GENERAL EXAM: Awake, alert 73-year-old obese male, on 7 L of oxygen nasal cannula HEAD: Normocephalic and atraumatic EYES: Normal reaction of pupils, equal size. NOSE: Clear with pink turbinates. THROAT: No erythema or exudates. NECK: No masses, no JVD. CHEST: No chest wall deformity. LUNGS: Equal air entry with diminished lung sounds throughout. Crackles in the bilateral bases. CVS: S1 and S2 normal with no audible murmur, regular rhythm. No extra heart sounds ABDOMEN: No hepatosplenomegaly, active bowel sounds, no guarding or rigidity. Functional ileostomy SPINE: No scoliosis or deformity SKIN: Generalized erythemic plaques involving upper extremities, chest, back CENTRAL NERVOUS SYSTEM: No focal deficits, tone is normal in all 4 extremities. EXTREMITIES: Right foot is wrapped with a bandage. There is 1-2+ peripheral edema. Peripheral pulses are intact. - Labs CBC & Chem 7: 06/16/24 04:52 06/16/24 04:52 Labs: Abnormal Lab Results - Last 24 Hours (Table) 06/17/24 06/17/24 06/17/24 Range/Units 16:53 19:56 23:57 POC Glucose (mg/dL) 202 H 252 H 266 H (70-110) mg/dL 06/18/24 06/18/24 Range/Units 05:55 11:45 POC Glucose (mg/dL) 248 H 218 H (70-110) mg/dL Assessment and Plan Plan: Acute exacerbation of diastolic congestive heart failure versus interstitial edema secondary to chronic kidney disease and renal failure. Bilateral pneumonia cannot be completely excluded. The patient's oxygenation is improved and the patient is currently on liters of oxygen by nasal cannula. Significant pulm and in the chest x-ray findings with interval improvement in the bilateral multifocal airspace disease. Underwent hemodialysis yesterday and another hemodialysis to be done tomorrow. Acute hypoxic respiratory failure, oxygenation improved and the patient is currently on 7 L of O2 nasal cannula Acute on chronic kidney disease now requiring renal replacement therapy that started June 10, 2024, underwent dialysis on 06/17/2024 with a total of 2.5 L of ultrafiltration. Hyperkalemia, improved Acute on chronic anemia secondary to above History of CAD with previous PCI Diabetes mellitus type II Hypertension Hyperlipidemia Chronic cephalgia History of UC with previous colectomy and ileostomy History of prostate cancer status post chemoradiation Chronic right heel wound, status post debridement on 05/28/2024 again today June 14, 2024 Obesity, with a BMI of 38.8 kg/m Never tobacco smoker Plan: Titrate FiO2 to maintain saturation above 90% Continue high flow oxygen at 7 L and continue titration Hemodialysis with a total of 2.5 L of ultrafiltration on 06/17/2024. Another session of hemodialysis to be done on 06/19/2024. Repeat chest x-ray in the morning was noted and there is improvement in the multifocal airspace opacities. Continue bronchodilators Discontinue IV Solu-Medrol Continue daptomycin and Zosyn Heparin for DVT prophylaxis Protonix for GI prophylaxis We will continue to follow Time with Patient: Greater than 30
[2024-06-18 23:18] LABS: Glucose,Whole Blood 271 mg/dL (70-110)
[2024-06-19 06:10] LABS: Glucose,Whole Blood 272 mg/dL (70-110)
[2024-06-19] MEDS: MIDAZOLAM 2 MG/2 ML VIAL IVP ONE (08:05)
[2024-06-19] MEDS: LIDOCAINE 1% INJ 10MG/ML (20 ML MDV) SQ ONE ×2 (08:06)
[2024-06-19] MEDS: IV FLUID CONTINUATION 450 ML IV ONE (08:12)
--- NOTE | 2024-06-19 08:40 | IR ---
EXAMINATION TYPE: IR CVC inserted central tunneled DATE OF EXAM: 06/19/2024 COMPARISON: Pre Operative Images if available both CT/MRI or plain film CLINICAL INDICATION: Male, 73 years old with history of hemodialysis catheter insertion, 2.2 minutes fluoroscopy TECHNIQUE: IR CVC inserted central tunneled, multiple fluoroscopic images provided for procedure. DAP: 3.26 Gycm2 FINDINGS: Right IJ approach dialysis catheter distal tip in the right atrium. IMPRESSION: 1. Report was generated for administrative purposes only. 2. Please see the operative/procedural note for further details. [facility], , 06/19/2024 8:38 AM
--- NOTE | 2024-06-19 09:16 | P.PCN ---
Description of Procedure: Preop diagnosis acute chronic renal failure Postop the same Procedure placement of a 23 cm dialysis catheter right jugular approach and removal of the temporary dialysis catheter right femoral approach Patient was brought to the Plant Superintendent right of the neck and groins were prepped and draped in Prestel manner 1% lidocaine were infiltrated right neck area. Sound guided micropuncture introduced right jugular vein puncture guide was passed under fluoroscopic control 4 [place] sheath advanced up the guidewire and we created a tunnel through the tunnel we brought 23 cm dialysis catheter then we passed a regular guidewire dilator was advanced on the top of guidewire then we placed a sheath on the top of guidewire through the sheath we introduced a 23 cm dialysis catheter tip catheter superior vena cava and atrial junction sheath was removed flushed with heparin saline hep-locked incision was closed with Vicryl and nylon dressing applied patient tarted the procedure well and catheter was removed pressure was held pressure dressing applied patient tarted the procedure well patient will need x-ray of the chest
--- NOTE | 2024-06-19 09:22 | XR ---
EXAMINATION TYPE: XR chest 1V portable DATE OF EXAM: 06/19/2024 9:15 AM COMPARISON: Multiple radiographs, with the most recent on 06/18/2024, fluoroscopic image 06/19/2024. TECHNIQUE: XR chest 1V portable Portable AP radiograph of the chest. CLINICAL INDICATION:Male, 73 years old with history of Hemodialysis catheter placement.; FINDINGS: Lungs/Pleura: Low lung volumes with redemonstration of diffuse interstitial opacities. Blunting of th e left costophrenic angle. No pneumothorax. Heart/mediastinum: Cardiomediastinal silhouette is enlarged and stable. Musculoskeletal: No acute osseous pathology. Other findings: None Lines/Tubes: Right IJ approach dialysis catheter with distal tip terminating in the right atrium. IMPRESSION: 1. Right IJ approach dialysis catheter with distal tip terminating in the right atrium. No pneumotho rax. 2. Redemonstration diffuse interstitial opacities with small left pleural effusion. Correlate for CH F exacerbation/volume overload. [facility], , 06/19/2024 9:20 AM
[2024-06-19 11:38] LABS: Glucose,Whole Blood 128 mg/dL (70-110)
--- NOTE | 2024-06-19 12:02 | P.PN ---
Subjective Progress Note Date: 06/19/24 Principal diagnosis: Reason for follow-up is right heel diabetic foot ulcer with MRSA infection Patient is a 73-year-old male with a past medical history significant for diabetes mellitus hypertension hyperlipidemia osteomyelitis patient has been dealing with a chronic nonhealing wound to the right heel area for months now and is being treated in outpatient setting by Dr. Jernigan his plumber assistant with recent outpatient culture positive for MRSA and is Proteus. On today's evaluation that is 06/19/2024,the patient denies any fever or any chills, patient is breathing slightly comfortably however still requiring 11 L high flow nasal cannula oxygen, the patient denies chest pain shortness of breath and no significant cough, patient denies abdominal pain, no nausea vo miting or diarrhea. No new labs has been obtained today Objective - Vital Signs Vital signs: Vital Signs Temp 97.5 F L 06/19/24 11:12 Pulse 68 06/19/24 11:58 Resp 16 06/19/24 11:12 BP 130/73 06/19/24 11:12 Pulse Ox 100 06/19/24 11:12 FiO2 80 06/19/24 07:36 Intake & Output 06/18/24 06/19/24 06/19/24 18:59 06:59 18:59 Intake Total 1015 100 Output Total 200 400 Balance 815 -300 Weight 100 kg Intake: IV 100 Piperacillin-Tazobactam 3 100 .375 gm In Sodium Chloride 0.9% 100 ml @ 25 mls/hr IVPB Q12HR [facility] Rx #:[id number] Oral 1015 Output: Stool 200 400 Other: Voiding Method Urinal Urinal - Exam GENERAL DESCRIPTION: An elderly male lying in bed in no distress RESPIRATORY SYSTEM: Unlabored breathing , decreased breath sounds at bases HEART: S1 S2 regular rate and rhythm , ABDOMEN: Soft , no tenderness EXTREMITIES: Necrotic wound to the right heel however no significant surrounding redness or foul-smelling drainage - Labs CBC & Chem 7: 06/16/24 04:52 06/16/24 04:52 Labs: Abnormal Lab Results - Last 24 Hours (Table) 06/18/24 06/18/24 06/19/24 Range/Units 16:29 23:16 06:08 POC Glucose (mg/dL) 265 H 271 H 272 H (70-110) mg/dL 06/19/24 Range/Units 11:37 POC Glucose (mg/dL) 128 H (70-110) mg/dL Microbiology - Last 24 Hours (Table) 06/13/24 09:39 Blood Culture - Final Blood Assessment and Plan (1) Diabetic infection of right foot Current Visit: Yes Status: Acute Code(s): E11.628 - TYPE 2 DIABETES MELLITUS WITH OTHER SKIN COMPLICATIONS; L08.9 - LOCAL INFECTION OF THE SKIN AND SUBCUTANEOUS TISSUE, UNSP SNOMED Code(s): 619936852 (2) MRSA (methicillin resistant staph aureus) culture positive Current Visit: Yes Status: Acute Code(s): Z22.322 - CARRIER OR SUSPECTED CARRIER OF METHICILLIN RESIS STAPH SNOMED Code(s): 227661809 (3) Diabetic ulcer of right foot Current Visit: No Status: Acute Code(s): E11.621 - TYPE 2 DIABETES MELLITUS WITH FOOT ULCER; L97.519 - NON-PRS CHRONIC ULCER OTH PRT RIGHT FOOT W UNSP SEVERITY SNOMED Code(s): 364898287 (4) Stage III pressure ulcer of right heel Current Visit: No Status: Acute Code(s): L89.613 - PRESSURE ULCER OF RIGHT HEEL, STAGE 3 SNOMED Code(s): 84468768276650 Plan: 1patient with a chronic nonhealing wound to the right heel which he has for couple of months the wound looks deep with a recent culture positive for Proteus and MRSA concerning for wound infection and question for possible deeper infection such as osteomyelitis as wound has been there for couple of months now 2- x-rays of the right heel with no evidence of any bony changes 3-patient has been evaluated by Dr. Carpenter and did have surgical debridement completed on 06/07/2024 and did have a further debridement at the bedside by his plumber assistant on 06/14/2024 4-patient still have necrotic wound to the right heel he may benefit from further surgical debridement nursing staff to communicate with the surgeon 5patient currently treated with Zosyn and daptomycin as we do not have any good oral option to transition him Family at bedside question answered Dictation was produced using [facility] dictation software. please excuse any grammatical, word or spelling errors. Time with Patient: Less than 30
--- NOTE | 2024-06-19 13:27 | P.PN ---
Subjective HISTORY OF PRESENT ILLNESS: This is 73-year-old male patient of Dr. Bales with past medical history of coronary artery disease status post PCI of the LAD and second diagonal branch, known severe disease involving the OM1, heart failure with preserved EF, diabetes, hypertension, dyslipidemia, chronic kidney disease, dilated ascending aorta, history of colectomy and overweight. We have been asked to evaluate the patient for CHF. Patient was recently hospitalized 05/28 - 05/31 and was treated for CHF and acute kidney injury. Patient states that when he went home he did not feel any better related to shortness of breath and when he had come in. He states he continues to have shortness of breath which is worsening and also has a little lightheadedness and dizziness. He complains of chest pain across the mid chest and also some left lower abdominal pain. He denies cough but he states in the morning he has sputum production. No significant lower extremity edema. He does have a chronic wound to the right foot with the boot in place. Blood pressure 121/61, heart rate 69, pulse ox 96% on 2 and half liters nasal cannula. Patient has been started on IV Lasix 80 mg every 12 hours. -EKG: Atrial fibrillation [address] changes -Chest x-ray: Correlate for volume overload -Laboratory studies: WBC 10.2, hemoglobin 10.4, platelet count 374. Sodium 135, potassium 4.6, BUN 66 and creatinine 2.71. Troponin negative x 1. proBNP 2550. -Home cardiac medications: Amlodipine 10 mg daily, aspirin 81 mg daily, atorvastatin 40 mg daily, Plavix 75 mg daily, Farxiga 10 mg daily, hydralazine 25 mg 3 times daily, Imdur 60 mg daily, Toprol XL 25 mg daily, Ranexa 500 mg every 12 hours, Demadex 40 mg daily. -Echocardiogram from 05/28/2024 revealed technical difficult study minimal mitral and tricuspid regurgitation. No pericardial effusion. -Cardiac catheterization history: April 26, 2024 revealing patent stent in the mid LAD. Late stent thrombosis of the second diagonal branch of the LAD, severe disease involving OM1 appeared unchanged compared to before, attempted balloon angioplasty was performed of second diagonal branch with suboptimal results June 09, 2024 The patient was seen and evaluated this morning. Unfortunately the kidney function is worse. He is still in failure now requiring BiPAP. The chest x-ray from yesterday showed finding consistent with failure. He continues to be on Lasix IV. Nephrology team is on the case. The physical examination is remarkable for regular rhythm wit diminished breathing sounds bilaterally and mild bilateral expiratory wheezing and mild bilateral lower extremities edema. Beside that he is hyperkalemic that is under treatment at this point. 06/10/2024 Patient examined this morning at the bedside. Patient currently reports shortness of breath. He remains on IV Lasix. He denies any chest pain or pressure. Creatinine is worsening today at 4.1. Patient states that he spoke with nephrology this morning and plan is to begin hemodialysis today. 06/11 Patient seen and examined Patient is preparing to have his second dialysis treatment this morning. He is on 100% BiPAP pulse ox 92%. Blood pressure 129/58, heart rate 70. No repeat blood work today. 06/12/2024 Patient is seen and examined at bedside this a.m. Patient is maintained on BiPAP support, saturating 92%. Hemodynamically stable. EKG shows sinus rhythm on telemetry. 06/13/2024, Seen and examined at bedside this a.m. Patient is BiPAP dependent and is not able to tolerate removal of BiPAP even for food and medications. BP 120/50, heart rate 80 bpm, sinus rhythm on telemetry, 95% saturation on BiPAP support Minimal urine output chest x-ray shows significant pulmonary edema suggestive of volume overload. Would recommend continuing fluid removal with hemodialysis and hold his antihypertensives before his hemodialysis so that more volume can be removed during dialysis session. 06/14/24 Patient is getting hemodialysis, fluid status appears to be improved. Still on continuous BiPAP support . 06/15/2024 Patient noticed to be hypotensive today after hemodialysis. We will hold his antihypertensives. Patient has had significant negative fluid balance with continuous hemodialysis in last 2 days. I would recommend reducing the amount of ultrafiltrate as I feel that patient is now getting towards more dehydration. 06/16/2024 Patient was transferred out of ICU to 3 S. floor today. Anticipated hemodialysis tomorrow. Minimal urine output. Lawson catheter is out. Blood pressure systolic around 110, continues to be in sinus rhythm on telemetry. He was hypotensive yesterday. Today blood pressure is better. 06/17/2024 Patient examined this morning at the bedside. Patient reports improvement in his shortness of breath. He remains on Airvo. He denies chest pain or pressure. He states he is supposed to get hemodialysis today. Blood pressure stable with a systolic in the 120s. 06/18/2024 Patient examined this morning at the bedside. Patient reports improvement in his shortness of breath. He denies chest pain or pressure. He underwent hemodialysis yesterday. Patient is scheduled to undergo hemodialysis catheter insertion tomorrow with Dr. Carpenter. Vital signs are stable. Blood pressure 126/61. Patient has been weaned off Airvo and is currently on 7 L high flow nasal cannula with oxygen saturations greater than 92%. Telemetry reveals sinus mechanism. 06/19/2024 Patient examined this morning at the bedside. Patient underwent hemodialysis catheter insertion today with Dr. Carpenter. He is scheduled to undergo hemodialysis today. He currently denies chest pain or pressure. Patient remains on high flow nasal cannula at 11 L. Telemetry reveals sinus mechanism. PHYSICAL EXAM: VITAL SIGNS: Reviewed. GENERAL: Well-developed in no acute distress. NECK: Supple. No JVD or thyromegaly LUNGS: Respirations even and unlabored. Lungs clear to auscultation. HEART: Regular rate and rhythm. S1 and S2 heard. + Systolic murmur. EXTREMITIES: Normal range of motion. No clubbing or cyanosis. Peripheral pulses intact. 1+ bilateral lower extremity edema ASSESSMENT: Shortness of breath Acute on chronic diastolic heart failure Acute on chronic kidney disease, initiated on hemodialysis 06/10/2024 History of coronary artery disease with PCI of the LAD and second diagonal with known severe disease involving the OM1 Diabetes Hypertension Dyslipidemia Dilated ascending aorta History of colectomy Nonhealing right heel wound PLAN: Continue current cardiac medications Continue hemodialysis per nephrology. Continue to monitor kidney function Wean oxygen as tolerated Continue to monitor blood pressure Increase activity as tolerated. PT OT on consult. Patient is stable from a cardiac perspective Further recommendations pending patient course Nurse practitioner note has been reviewed by physician. Signing provider agrees with the documented findings, assessment, and plan of care documented by [employer] TECHNICIAN as a scribe. Objective - Vital Signs Vital signs: Vital Signs Temp 97.8 F 06/19/24 07:28 Pulse 76 06/19/24 07:48 Resp 16 06/19/24 07:28 BP 134/60 06/19/24 07:28 Pulse Ox 97 06/19/24 07:28 FiO2 80 06/19/24 07:36 Intake & Output 06/18/24 06/19/24 06/19/24 18:59 06:59 18:59 Intake Total 1015 100 Output Total 200 400 Balance 815 -300 Weight 100 kg Intake: IV 100 Piperacillin-Tazobactam 3 100 .375 gm In Sodium Chloride 0.9% 100 ml @ 25 mls/hr IVPB Q12HR [facility] Rx #:[id number] Oral 1015 Output: Stool 200 400 Other: Voiding Method Urinal - Labs CBC & Chem 7: 06/16/24 04:52 06/16/24 04:52 Labs: Abnormal Lab Results - Last 24 Hours (Table) 06/18/24 06/18/24 06/18/24 Range/Units 11:45 16:29 23:16 POC Glucose (mg/dL) 218 H 265 H 271 H (70-110) mg/dL 06/19/24 Range/Units 06:08 POC Glucose (mg/dL) 272 H (70-110) mg/dL Microbiology - Last 24 Hours (Table) 06/13/24 09:39 Blood Culture - Final Blood
--- NOTE | 2024-06-19 15:08 | P.PN ---
Progress Note - Text Progress Note Date: 06/19/24 Chief Complaint: Short of breath Pleasant 73-year-old patient follows with Dr. Dennis. Gl Accountant: Dr. Bales Chronic medical conditions include hypertension, hyperlipidemia, type 2 diabetes, mood disorder, and CAD , ostomy for 25 years, July 2023 stent to the LAD and second diagonal branch by Dr. Bales. April 26, [address] Bales: Following a non-ST relation NE: Patent stent to mid LAD. Late stent thrombosis of the second diagonal branch of the LAD. Severe disease involving the OM1 appears unchanged. Attempted balloon angioplasty performed to the second of diagonal branch with suboptimal results. Dose of Imdur was increased and Ranexa was added. Patient recently in the hospital from May 28 through May 31. Chronic headaches: MRI unremarkable. MR angio head and neck: MR angio head without contrast: No evidence of aneurysm or significant stenosis. Atrophic right A1 segment. origin of the right posterior cerebral artery.MRI of the brain nonspecific. Was seen by neurology Dr. Gay. Patient to follow-up outpatient Chronic right heel wound seen by Dr. Carpenter from vascular deep debridement was carried out. No need for antibiotics. Patient to follow-up with Dr. Jernigan at the wound center. Shortness of breath: Was seen by cardiology. Not for any further intervention. Patient doing well when discharged. Patient presented increased shortness of breath when at home. His pulse ox dropped out of the 80s. Increasing shortness of breath. Decreased appetite. No fever or chills. June 10: Using his BiPAP. Patient seen this morning. Later this afternoon. Right femoral vein dialysis catheter was placed by Dr. Carpenter from vascular for dialysis. Baseline some shortness of breath. Due for first dialysis today. Patient is right heel culture grew MRSA Proteus P Corynebacterium on May 29. Patient is on IV daptomycin and IV cefepime per ID. June 11: Patient seen this afternoon. On BiPAP. Getting hemodialysis. Remains on IV daptomycin IV Zosyn. Tired. Also getting IV iron. Patient really did not eat today. Because of BiPAP. Cut back Levemir to 26 units at night. DC scheduled NovoLog for now. June 12: Overflowing the ICU. Remains on BiPAP. 04/05/90%. at the bedside. Remains on IV daptomycin and IV Zosyn. For dialysis today. X-ray continues shows infiltrates. Significantly hypoxic. N.p.o. June 13: ICU. Remains on BiPAP. 12/6/90% moderate take anything by mouth. Spoke to the nurse have TPN lipids ordered. Remains on IV daptomycin IV Zosyn. Chest x-ray continues to show diffuse infiltrates. Continues to be followed by cardiology pulmonary ID nephrology. June 14: ICU. Later this afternoon patient was put on Airvo. 60/60. Has some delirium. Remains on IV daptomycin and IV Zosyn. Had 2 L ultrafiltration yesterday. Patient getting daily dialysis for now. As patient is oliguric per nephrology Lasix has been held. TPN was ordered yesterday per the nurse culture that returned to feed the patient. Will see how that goes. Dietitian on the case. June 15: ICU. Patient be getting hypotensive. Some medications held back by cardiology. Hemodialysis done today. Patient remains on Airvo though at 50/50. at the bedside. Plans this afternoon to get him up in the chair. Remains on daptomycin and IV Zosyn. IV Lasix been discontinued. Patient tolerating some liquid diet. June 16: Patient moved to the ICU. Remains on Airvo. 45/45. at the bedside. Tolerating full liquids. Spoke to the about the morphine. His headaches are chronic. Use Fioricet as needed. Remains on IV daptomycin and IV Zosyn. IV Solu-Medrol. Amlodipine dose cut back. PT OT. June 17: On 3 S., telemetry floor. Getting hemodialysis today. Remains on IV daptomycin IV Zosyn. On full liquid diet. Advance to ground diet. Minimal urine output. DC fluid restriction. Awake communicating. Accu-Cheks running high. Increase Levemir to 28 units subcu twice daily. Seen by PT OT. Maximum assist. On Airvo 40/40. Cut back Solu-Medrol to every 12. June 18: On a recliner. 7 L nasal cannula. Decreased appetite. at the bedside. Accu-Chek in 200s. IJ PermCath placement pending. Encourage oral intake. Ordered incentive spirometry June 19: Patient was on 7 L nasal cannula yesterday. Patient back on Airvo today. 40 L. Due for hemodialysis today. Had perm dialysis catheter placed right IJ by Dr. Carpenter today. Minimal intake today. Discussed with at the bedside. Active Medications Acetaminophen (Acetaminophen Tab 325 Mg Tab) 650 mg PO Q6HR PRN PRN Reason: Mild Pain or Fever > 100.5 Last Admin: 06/18/24 09:59 Dose: 650 mg Acetaminophen/Butalbital/Caffeine (Butalb/Apap/Caff 50-325-40mg Tab) 1 each PO Q4H PRN PRN Reason: Migraine Headache Albuterol/Ipratropium (Ipratropium-Albuterol 3 Ml Neb) 3 ml INHALATION RT-QID [facility] Last Admin: 06/19/24 11:43 Dose: 3 ml Albuterol/Ipratropium (Ipratropium-Albuterol 3 Ml Neb) 3 ml INHALATION RT-QID PRN PRN Reason: Shortness Of Breath Or Wheezing Allopurinol (Allopurinol 100 Mg Tab) 100 mg PO DAILY [facility] Last Admin: 06/19/24 11:39 Dose: 100 mg Amlodipine Besylate (Amlodipine 5 Mg Tab) 5 mg PO DAILY [facility] Last Admin: 06/19/24 12:01 Dose: 5 mg Aspirin (Aspirin 81 Mg) 81 mg PO DAILY [facility] Last Admin: 06/19/24 11:39 Dose: 81 mg Atorvastatin Calcium (Atorvastatin 40 Mg Tab) 40 mg PO DAILY [facility] Last Admin: 06/19/24 11:40 Dose: 40 mg Budesonide (Budesonide 1 Mg/2 Ml Nebu) 1 mg INHALATION RT-BID [facility] Last Admin: 06/19/24 07:31 Dose: 1 mg Calcitriol (Calcitriol 0.25 Mcg Cap) 0.25 mcg PO Mo@0900 [facility] Last Admin: 06/17/24 11:37 Dose: 0.25 mcg Clopidogrel Bisulfate (Clopidogrel 75 Mg Tab) 75 mg PO DAILY [facility] Last Admin: 06/19/24 11:39 Dose: 75 mg Collagenase (Collagenase 250 Unit/Gm Ointment 30 Gm Tube) 1 applic TOPICAL DAILY [facility]; Protocol Last Admin: 06/18/24 09:44 Dose: 1 applic Darbepoetin Silverio (Darbepoetin Silverio 40 Mcg/0.4 Ml Syringe) 40 mcg SQ Q7D [facility] Last Admin: 06/19/24 11:41 Dose: 40 mcg Dextrose/Water (Dextrose 50% Syringe 50 Ml) 25 ml IVP PER PROTOCOL PRN; Protocol PRN Reason: Hypoglycemia Dextrose/Water (Dextrose 50% Syringe 50 Ml) 50 ml IVP PER PROTOCOL PRN; Protocol PRN Reason: Hypoglycemia Ergocalciferol (Ergocalciferol 1,250 Mcg (50,000 Iu) Capsule) 1,250 mcg PO Q14D [facility] Last Admin: 06/19/24 11:40 Dose: 1,250 mcg Escitalopram Oxalate (Escitalopram 10 Mg Tab) 10 mg PO DAILY [facility] Last Admin: 06/19/24 11:39 Dose: 10 mg Gabapentin (Gabapentin 100 Mg Cap) 100 mg PO HS [facility] Last Admin: 06/18/24 20:18 Dose: 100 mg Haloperidol Lactate (Haloperidol Lactate 5 Mg/Ml 1 Ml Vial) 5 mg IVP ONCE PRN PRN Reason: Agitation or Acute Psychosis Last Admin: 06/14/24 23:51 Dose: 5 mg Haloperidol Lactate (Haloperidol Lactate 5 Mg/Ml 1 Ml Vial) 5 mg IVP Q8HR PRN PRN Reason: Agitation or Acute Psychosis Last Admin: 06/13/24 03:01 Dose: 5 mg Heparin Sodium (Porcine) (Heparin Sodium,Porcine 5,000 Unit/Ml 1 Ml Vial) 5,000 unit SQ Q8HR [facility] Last Admin: 06/19/24 11:40 Dose: 5,000 unit Hydralazine HCl (Hydralazine Hcl 25 Mg Tab) 25 mg PO TID [facility] Last Admin: 06/19/24 12:01 Dose: 25 mg Daptomycin 350 mg/ Sodium (Chloride) 50 mls @ 100 mls/hr IVPB Q48H [facility]; Protocol Last Admin: 06/18/24 09:43 Dose: 100 mls/hr Piperacillin Sod/Tazobactam (Sod 3.375 gm/ Sodium Chloride) 100 mls @ 25 mls/hr IVPB Q12HR [facility]; Protocol Last Admin: 06/19/24 11:42 Dose: 25 mls/hr Insulin Aspart (Insulin Aspart (Novolog) 100 Unit/Ml Vial) 0 unit SQ Q6HR [facility]; Protocol Last Admin: 06/19/24 11:42 Dose: Not Given Insulin Detemir (Insulin Detemir (Levemir) 100 Unit/Ml Syr) 28 unit SQ BID@0700,2100 [facility] Last Admin: 06/19/24 11:41 Dose: 28 unit Isosorbide Mononitrate (Isosorbide Mononitrate Er 60 Mg Tab.Er.24h) 60 mg PO DAILY [facility] Last Admin: 06/19/24 12:01 Dose: 60 mg Methylprednisolone Sodium Succinate (Methylprednisolone Sod Succi 40 Mg/Ml 1 Ml Vial) 40 mg IV Q12H [facility] Last Admin: 06/19/24 11:41 Dose: 40 mg Metoprolol Succinate (Metoprolol Succinate (Er) 25 Mg Tab.Er.24h) 25 mg PO DAILY [facility] Last Admin: 06/19/24 11:39 Dose: 25 mg Naloxone HCl (Naloxone 0.4 Mg/Ml 1 Ml Vial) 0.2 mg IV Q2M PRN PRN Reason: Opioid Reversal Collagenase 250 Unit /Gm Ointment 30 Gm Tube 1 each TOPICAL DAILY [facility]; Protocol Last Admin: 06/18/24 11:59 Dose: Not Given Pantoprazole Sodium (Pantoprazole 40 Mg/10 Ml Vial) 40 mg IVP DAILY [facility] Last Admin: 06/19/24 11:41 Dose: 40 mg Ranolazine (Ranolazine 500 Mg Tab.Er.12h) 500 mg PO Q12HR [facility] Last Admin: 06/19/24 11:39 Dose: 500 mg Tamsulosin HCl (Tamsulosin 0.4 Mg Cap.Er.24h) 0.4 mg PO PC-BRKFST [facility] Last Admin: 06/19/24 11:40 Dose: 0.4 mg Triamcinolone Acetonide (Triamcinolone Acet 0.5% Cream 15 Gm Tube) 1 applic TOPICAL BID PRN; Protocol PRN Reason: rash/dry skin Social history: Non-smoking. No alcohol. On examination: VITAL SIGNS: 97.5, 69, 20, 130 x 73, 100% on Airvo 40 L GENERAL APPEARANCE: Reclining in bed, sleepy HEENT: Normal external appearance of nose and ear. Oral cavity normal EYES: Pupils equal. Conjunctiva normal. NECK: JVD not raised. Mass not palpable. RESPIRATORY: Respiratory effort normal lungs decreased breath sounds CARDIOVASCULAR: First and second sounds normal. Minimal edema in the right leg ABDOMEN: Soft. Liver and spleen not palpable. No tenderness. No right upper quadrant tenderness. No mass palpable. Colostomy bag with liquid stool PSYCHIATRY: Sleep he Extremity: Right foot in dressing INVESTIGATIONS, reviewed in the clinical context: June 16: White count 12.4 hemoglobin 10.1 platelets 202 sodium 128 potassium 4.4 BUN 32 creatinine 3.11 June 15: White count 9.4 hemoglobin 9.4 platelets 2 3 potassium 4.1 bicarb 25 BUN 32 creatinine 3.14 June 14: White count 16.2 hemoglobin 9.2 platelets 236 sodium 134 potassium 4.3 BUN 68 creatinine 3.26 June 13: White count 16.5 hemoglobin 9.3 platelets 273 sodium 135 potassium 4.7 BUN 38 creatinine 3.34 June 11: Potassium 4.9 BUN 108 creatinine 4.1 June 10: White count 12.8 hemoglobin 7.9 platelets 335 sodium 135 potassium 5.2 BUN 118 creatinine 4.1 June 04: White count 10.2 hemoglobin 10.4 platelet 374 sodium 135 potassium 4.6 BUN 66 creatinine 2.71 troponin I less than 0.012 proBNP 2550 EKG tracing personally reviewed by me-atrial fibrillation. Rate 68 Chest x-ray film personally reviewed by me-pulm edema Recent labs May 30: Potassium 4.7 BUN 42.3 creatinine 2.3 Assessment and plan: -Acute on chronic congestive heart failure exacerbation, from diastolic dysfunction EF 55 to 60%.: Better IV Lasix discontinued Started on dialysis June 10.- -Acute hypoxic respiratory failure from pulmonary edema: Worsening Initially BiPAP //90%. Then Airvo. Today back [place] Airvo at 40% -Acute respiratory distress syndrome, multifactorial: Slowly improving On Airvo IV Solu-Medrol, 40 mg every 12 -COPD non-smoker DuoNeb 4 times daily. Nebulized Pulmicort -Chronic ostomy-functioning well -Chronic cephalgia. Patient stated headaches for greater than 6 months. Practically every day. Does not interfere with his eating. No exacerbating relieving factors: Possible tension headaches. CT scan of the brain shows some chronic changes MRI and MRI of the brain showing chronic changes. Seen by Dr. Gay from neurology a week ago. Further outpatient follow-up with neurology -Acute delirium/metabolic encephalopathy. Multifactorial: Much improved -Right heel wound. Dry. Follows with Dr. Jernigan at the wound center. Dr. Carpenter from vascular-. Deep debridement carried recently Wound culture [May 29] MRSA, Proteus IV cefepime, daptomycin per ID -Chronic parastomal hernia #Hypertension: Amlodipine. Toprol-XL. Hydralazine -Acute kidney injury, likely cardiorenal: On hemodialysis Right femoral vein dialysis catheter placed by Dr. Carpenter on June 10. Hemodialysis started June 10-Daily For PermCath placement -CKD likely nephrosclerosis, diabetic nephropathy Creatinine was 1.6 on April 28, 2024. -CAD with stent Toprol-XL -Anemia in the setting of chronic kidney disease. Iron deficiency anemia. Given IV iron -Primary osteoarthritis Pain medication as needed -History of prostate cancer with radiation and chemo in 2020. #Diabetes mellitus type II, chronically on insulin: Uncontrolled with hyperglycemia Levemir to 28 units SQ every 12 #Hyperlipidemia: Lipitor #GERD: Protonix -Full code Discussed with at the bedside Past Medical History Past Medical History: Cancer, Chest Pain / Angina, Diabetes Mellitus, Eye Disorder, GERD/Reflux, Hyperlipidemia, Hypertension, Osteoarthritis (OA), Prostate Disorder, Renal Disease Additional Past Medical History / Comment(s): HX OF ULCERATIVE COLITIS, ileostomy PARASTOMAL HERNIA, PROSTATE CA WITH RADIATION AND CHEMO IN 2020, LOW KIDNEY FUNCTION,Covid Dec 2022, Influenza A Jun 2023, eye condition, unsure of name. History of Any Multi-Drug Resistant Organisms: MRSA Date of last positivie culture/infection: 05/24/24 MDRO Source:: rt heel, scalp Past Surgical History: Appendectomy, Bowel Resection, Heart Catheterization, Heart Catheterization With Stent Additional Past Surgical History / Comment(s): COLECTOMY, RECTUM REMOVED, ELLIOTT CATARACTS removed, ILEOSTOMY, HERNIA SURGERY. Past Anesthesia/Blood Transfusion Reactions: No Reported Reaction Additional Past Anesthesia/Blood Transfusion Reaction / Comment(s): no problems with prior blood transfusions. Date of Last Stent Placement:: 08/01/2023 Past Psychological History: No Psychological Hx Reported Smoking Status: Never smoker Past Alcohol Use History: None Reported Past Drug Use History: None Reported
[2024-06-19] MEDS: MIDODRINE 5 MG TAB PO ONE (16:03)
[2024-06-19 16:37] LABS: Glucose,Whole Blood 133 mg/dL (70-110)
--- NOTE | 2024-06-19 18:02 | P.PN ---
Subjective Progress Note Date: 06/19/24 Patient is a 73-year-old male with past medical history significant for hypertension, hyperlipidemia, coronary artery disease with previous PCI/stenting, heart failure, chronic kidney disease, diabetes mellitus, chronic right heel wound, ulcerative colitis with previous colectomy and ileostomy. Of note, patient had a recent hospitalization late May and was just discharged 05/31/2024 for CHF exacerbation. Echocardiogram done during this hospitalization estimating a preserved left ventricular ejection fraction of 55 to 60%. Limited study, but no acute valvular abnormalities reported. Presented the emergency department on 06/04/2024 with a chief complaint of shortness of breath, mostly on exertion. Chest x-ray showing cardiomegaly, mild pulmonary vascular congestion, and a small pleural effusion on the left. NT proBNP elevated 2550. Currently receiving Lasix 80 mg twice daily. CBC: WBC count 10.2, hemoglobin 10.4, hematocrit 32.5, platelets 374. CMP: Sodium 135, potassium 4.6, chloride 101, serum bicarb 18, BUN 66, creatinine 2.71, glucose 139. Troponin is less than 0.012. Patient currently being evaluated on the general medical floor. Appears weak and deconditioned. He is resting in bed on 1 L/min nasal cannula. No respiratory distress noted. Complaining of a generalized headache, which he states is chronic. States that he has been short of breath on exertion for several months to almost 1 year. Particularly on exertion such as climbing stairs or walking to the bathroom. Denies history of COPD or asthma. Never tobacco smoker. Worked in an [employer] shop before he retired. Denies cough. Denies infectious-like symptoms. Current vital signs: Temperature 98 F, heart rate 78 bpm, blood pressure 145/54 mmHg, nontachypneic, SpO2 recorded at 91% on 1 L/min nasal cannula. The patient is seen today June 07, 2024 in follow-up on the regular medical floor. He is awake and alert in no acute distress. Sitting up at the bedside. Maintaining O2 saturations in the 90s on 3 L/min per nasal cannula. White count 9.8. Hemoglobin 8.9. Platelets 366. Sodium 140. Potassium 4.7. Bicarb 22. BUN 60. Creatinine 2.4. Glucose 97. He remains on DuoNeb and elations, Pulmicort inhalations. Lasix 80 mg IV every 12 hours. He is currently -1.1 L balance. Antibiotics in the form of cefepime and daptomycin for his diabetic ulcer of the right foot. X-ray revealed no osseous erosion or acute fracture. The patient is seen today June 08, 2024 in follow-up on the regular medical floor. He did have issues with worsening shortness of breath. He is currently on BiPAP 12/6 and 40% FiO2. White count 6.3. Hemoglobin 8.5. Platelets 357. Sodium 136. Potassium 5.8. Bicarb 21. BUN 64. Creatinine 2.4. Glucose 178. Chest x-ray continues to show evidence of congestive heart failure. He is currently on Lasix 80 mg IV every 12 hours. Continued on bronchodilators and steroids. Remains on antibiotics in the form of cefepime and daptomycin. The patient is seen today June 09, 2024 in follow-up on the regular medical floor. He is currently resting comfortably in bed. Awake and alert in no acute distress. Breathing easier today compared to yesterday. He is currently on BiPAP 12/6 and 40% FiO2. White count 10.1. Hemoglobin 8.0. Platelets 339. Sodium 136. Potassium 5.8. Bicarb 21. BUN 94. Creatinine 3.4. Glucose 234. He remains on DuoNeb and elations, Pulmicort inhalations, Solu-Medrol. Remains on IV diuretics. Remains on cefepime and daptomycin. Receiving Lokelma. The patient is seen today June 10, 2024 in follow-up on the regular medical floor. He is currently sitting up at the bedside. Awake and alert in no acute distress. He is requiring BiPAP support at 12/6 and 60% FiO2. Alternating with oxygen at 4 L/min per nasal cannula. He is continued on DuoNeb inhalations, Pulmicort inhalations, Solu-Medrol. He remains on antibiotics in the form of cefepime and daptomycin. Receiving iron supplement. Continued on IV diuretics. Continued on sodium bicarb tablets. White count 12.8. Hemoglobin 7.9. Platelets 335. Sodium 135. Potassium 5.2. Bicarb 23. BUN 118. Creatinine 4.1. Glucose 131. Plan is for placement of a hemodialysis catheter today and to receive hemodialysis today and tomorrow per nephrology. The patient is seen today June 12, 2024 in follow-up in the intensive care unit. He was transferred here last evening as his oxygen requirements increased. He is currently on BiPAP 12/6 and 90% FiO2. Arterial blood gases revealed a PaO2 of 60, pCO2 39 and a pH of 7.44. Chest x-ray continues to show diffuse bilateral airspace disease. Blood culture revealed no growth. White count 15.8. Hemoglobin 8.4. Platelets 257. Sodium 135. Potassium 4.4. Bicarb 23. BUN 90. Creatinine 3.51. Glucose 165. proBNP 7440. Procalcitonin pending. He is continued on daptomycin and Zosyn. Remains on Lasix 80 mg IV every 12 hours. Oertli in a -4 L balance. He did receive hemodialysis yesterday and again today 2 L removed each time. He is continued on DuoNeb and elations, Pulmicort inhalations. Solu-Medrol. The patient is seen today June 13, 2024 in follow-up in the intensive care unit. He remains mostly BiPAP dependent currently on 12/6 and 90% FiO2. No IV fluids. The plan is for hemodialysis again today which will be day #4 with approximately 2 L removed each time. Chest x-ray is showing evidence of acute respiratory distress syndrome. His PF ratio is 66 indicating severe ARDS. Blood culture revealed no growth. White count 16.5. Hemoglobin 9.3. Platelets 273. Sodium 135. Potassium 4.7. Bicarb 25. BUN 78. Creatinine 3.34. Glucose 211. Procalcitonin is elevated at 4.78. He remains on DuoNeb inhalations, Pulmicort inhalations, Solu-Medrol. Remains on daptomycin and Zosyn. Remains on Lasix 80 mg IV every 12 hours. Currently in a -4 L balance. Heparin for DVT prophylaxis. Protonix for GI prophylaxis. The patient is seen today June 14, 2024 in follow-up in the intensive care unit. He is awake and alert in no acute distress. He remains on BiPAP 12/6 and 60% FiO2. He is receiving hemodialysis again today with a goal of 2 to 2-1/2 L to be removed. His chest x-ray is showing improvement. Microbiology reveals no growth. He remains on Zosyn. Procalcitonin was 4.78. He has normal saline at KVO. White count 16.2. Hemoglobin 9.2. Platelets 236. Sodium 134. Potassium 4.3. Bicarb 27. BUN 68. Creatinine 3.26. Glucose 210. He remains on DuoNeb inhalations, Pulmicort inhalations, IV Solu-Medrol. He remains on daptomycin and Zosyn. He remains on Lasix 80 mg IV every 12 hours. Currently in a -7.8 L balance. Heparin for DVT prophylaxis. He did undergo debridement with surgical open necrotic tissue of the right heel for diabetic Walter grade 2 ulceration. The patient is seen today June 15, 2024 in follow-up in the intensive care unit. He is currently sitting up in bed. Awake and alert in no acute distress. He is continued on BiPAP 12/6 and 50% FiO2. He is alternating with Airvo high flow oxygen at 50 L and 60% FiO2. Chest x-ray showing improved aeration. He received hemodialysis yesterday with another 2-1/2 L removed. The plan is for hemodialysis again today. He has normal staying at [facility]. He remains on daptomycin and Zosyn. He remains on DuoNeb and elations, Pulmicort inhalations, Solu-Medrol. Heparin for DVT prophylaxis. Remains on Lasix 80 mg IV every 12 hours. White count 9.4. Hemoglobin 9.4. Platelets 203. Sodium 131. Potassium 4.1. Bicarb 25. BUN 72. Creatinine 3.14. Glucose 299. The patient is seen today June 16, 2024 in follow-up in the intensive care unit. He is currently sitting up in bed. Awake and alert in no acute distress. He is maintaining good O2 saturations in the 90s on Airvo high flow oxygen at 50 L and 50% FiO2. He has been off BiPAP for over 24 hours. He received hemodialysis yesterday with 2.5 L removed. The plan is for hemodialysis tomorrow. Chest x-ray shows similar bilateral airspace opacities. Blood culture revealed no growth. White count 12.4. Hemoglobin 10.1. Platelets 202. Sodium 128. Potassium 4.4. Bicarb 21. BUN 72. Creatinine 3.11. Glucose 330. He remains on DuoNeb inhalations, Pulmicort inhalations. Heparin for DVT prophylaxis. Remains on IV Solu-Medrol. Remains on Zosyn. 06/17/2024, the patient is being seen for a follow-up. There is a 73-year-old female patient who is being seen in follow-up regarding his hypoxic respiratory failure. On today's evaluation, the patient remains on Airvo at 40 L with an FiO2 of 40%. Current pulse ox 91 to 92%. At the same time, the patient is undergoing hemodialysis with a goal of ultrafiltration of around 2.5 L. He remains on a combination of Zosyn and daptomycin. The patient had a MRSA he will infection and ID is on the case. The patient is awake and alert and communicating. Remains on DuoNeb nebulized treatments [id number]. Remains on IV Solu-Medrol 40 mg every 12 hours. Rest of the medications are essentially unchanged. Most recent chest x-ray from 06/16/2024 was reviewed and shows multifocal airspace opacities. The patient had a previous echocardiogram done on 05/29/2024 indicating a preserved LV function with an ejection fraction of 55 to 60%. No significant valvular abnormalities. Comorbidities include coronary artery disease with previous PCI and stenting, chronic kidney disease, currently on hemodialysis, diabetes mellitus type 2, chronic right heel wound, ulcerative colitis and the patient has a colectomy and diverting ileostomy along with hypertension hyperlipidemia. 06/18/2024, the patient is feeling better and less short of breath. Noted the patient was taken off the Airvo and the patient is currently in 70s of oxygen by nasal cannula. His oxygenation improved post hemodialysis yesterday it was performed with a total of 3 L of ultrafiltration. The repeat chest x-ray from today also shows improvement in the multifocal airspace opacities that was seen on previous examinations. The patient is producing minimal amount of urine output. Remains on Zosyn. Remains on daptomycin. Rest of the medications are essentially unchanged. No blood work from today. On today's evaluation of 06/19/2024, the patient is being seen for a follow-up. Doing well. On today's evaluation, the patient was placed back on oxygen with 11 L/min nasal cannula. He was subsequently brought up to 15 L. Chest x-ray from today is again showing increased pulmonary vascular markings and pulm vascular congestion consistent with fluid overload. This chest x-ray was done following a insertion of a right IJ permacath. Dialysis to follow. The patient is comfortable. Denies having any shortness of breath at rest. Nevertheless, is slightly more short of breath compared to yesterday. Noted the patient showed significant improvement following hemodialysis was performed yesterday. Another session of hemodialysis to be done today. Remains on DuoNeb nebulized treatments [id number]. Remains on daptomycin and Zosyn as the patient has diabetic foot infection. ID is on the case. Remains on Levemir insulin 28 un its twice daily and NovoLog sliding scale coverage. Rest of the medications remain unchanged. Objective - Vital Signs Vital signs: Vital Signs Temp 97.5 F L 06/19/24 11:12 Pulse 68 06/19/24 11:58 Resp 16 06/19/24 11:12 BP 130/73 06/19/24 11:12 Pulse Ox 100 06/19/24 11:12 FiO2 80 06/19/24 07:36 Intake & Output 06/18/24 06/19/24 06/19/24 18:59 06:59 18:59 Intake Total 1015 100 Output Total 200 400 Balance 815 -300 Weight 100 kg Intake: IV 100 Piperacillin-Tazobactam 3 100 .375 gm In Sodium Chloride 0.9% 100 ml @ 25 mls/hr IVPB Q12HR [facility] Rx #:[id number] Oral 1015 Output: Stool 200 400 Other: Voiding Method Urinal Urinal - Exam GENERAL EXAM: Awake, alert 73-year-old obese male, on 11/15 L of oxygen nasal cannula HEAD: Normocephalic and atraumatic EYES: Normal reaction of pupils, equal size. NOSE: Clear with pink turbinates. THROAT: No erythema or exudates. NECK: No masses, no JVD. CHEST: No chest wall deformity. LUNGS: Equal air entry with diminished lung sounds throughout. Crackles in the bilateral bases. CVS: S1 and S2 normal with no audible murmur, regular rhythm. No extra heart sounds ABDOMEN: No hepatosplenomegaly, active bowel sounds, no guarding or rigidity. Functional ileostomy SPINE: No scoliosis or deformity SKIN: Generalized erythemic plaques involving upper extremities, chest, back CENTRAL NERVOUS SYSTEM: No focal deficits, tone is normal in all 4 extremities. EXTREMITIES: Right foot is wrapped with a bandage. There is 1-2+ peripheral e dominique. Peripheral pulses are intact. - Labs CBC & Chem 7: 06/16/24 04:52 06/16/24 04:52 Labs: Abnormal Lab Results - Last 24 Hours (Table) 06/18/24 06/18/24 06/19/24 Range/Units 16:29 23:16 06:08 POC Glucose (mg/dL) 265 H 271 H 272 H (70-110) mg/dL 06/19/24 Range/Units 11:37 POC Glucose (mg/dL) 128 H (70-110) mg/dL Microbiology - Last 24 Hours (Table) 06/13/24 09:39 Blood Culture - Final Blood Assessment and Plan Plan: Acute exacerbation of diastolic congestive heart failure versus interstitial edema secondary to chronic kidney disease and renal failure. Bilateral pneumonia cannot be completely excluded. The patient's oxygenation is improved and the patient is currently on 11 L of oxygen by nasal cannula. The patient had a follow-up chest x-ray that showed increased vascular markings secondary to volume overload. He will benefit from further dialysis. Acute hypoxic respiratory failure, oxygenation is stable on 50 L of oxygen nasal cannula. The patient is currently off the Airvo. Acute on chronic kidney disease now requiring renal replacement therapy that started June 10, 2024, underwent dialysis on 06/17/2024 with a total of 2.5 L of ultrafiltration. A permacath was inserted and hemodialysis to follow. Permacath is in the right IJ. No complications. Hyperkalemia, improved Acute on chronic anemia secondary to above History of CAD with previous PCI Diabetes mellitus type II Hypertension Hyperlipidemia Chronic cephalgia History of UC with previous colectomy and ileostomy History of prostate cancer status post chemoradiation Chronic right heel wound, status post debridement on 05/28/2024 again today June 14, 2024 Obesity, with a BMI of 38.8 kg/m Never tobacco smoker Plan: Titrate FiO2 to maintain saturation above 90% Continue high flow oxygen at 15 L no nasal cannula Hemodialysis to be continued by nephrology. The patient has a permacath in the right IJ. Repeat chest x-ray from 06/19/2024 shows pulm vascular congestion and volume overload Continue bronchodilators Discontinue IV Solu-Medrol Continue daptomycin and Zosyn Heparin for DVT prophylaxis Protonix for GI prophylaxis We will continue to follow Time with Patient: Greater than 30
--- NOTE | 2024-06-19 19:56 | P.PN ---
Subjective Patient is seen for follow-up for chronic kidney disease and acute kidney injury. Started hemodialysis on 06/10/2024 No significant complaints today. Patient is comfortable. No significant urine output noted. Scheduled for hemodialysis today. Oxygen requirement increased last night. Maintained on Airvo Status post right IJ permacath placement today. Objective - Vital Signs Vital signs: Vital Signs Temp 97.4 F L 06/19/24 19: Pulse 78 06/19/24 15:45 Resp 20 06/19/24 19: BP 93/51 06/19/24 19:25 Pulse Ox 92 L 06/19/24 19:25 FiO2 80 06/19/24 07:36 Intake & Output 06/19/24 06/19/24 06/20/24 06:59 18:59 06:59 Intake Total 100 595 400 Output Total 400 6400 Balance -300 595 -6000 Weight 100 kg Intake: IV 100 Piperacillin-Tazobactam 3 100 .375 gm In Sodium Chloride 0.9% 100 ml @ 25 mls/hr IVPB Q12HR [facility] Rx #:[id number] Oral 595 Hemodialysis 400 Output: Stool 400 Hemodialysis 3400 Hemodialysis Net Amount 3000 Other: Voiding Method Urinal - Exam Patient is awake, comfortable, no acute distress Examination of the heart S1 and S2 Examination of the lungs bilateral breath sounds are heard Abdomen is soft nontender Examination of lower extremities shows trace edema [employer] exam grossly intact - Labs CBC & Chem 7: 06/16/24 04:52 06/16/24 04:52 Labs: Abnormal Lab Results - Last 24 Hours (Table) 06/18/24 06/19/24 06/19/24 Range/Units 23:16 06:08 11:37 POC Glucose (mg/dL) 271 H 272 H 128 H (70-110) mg/dL 06/19/24 Range/Units 16:36 POC Glucose (mg/dL) 133 H (70-110) mg/dL Microbiology - Last 24 Hours (Table) 06/13/24 09:39 Blood Culture - Final Blood Assessment and Plan Assessment: 1. Acute kidney injury, nonoliguric, cardiorenal. UA is benign and ultrasound does not show any evidence of hydronephrosis. Started hemodialysis on 06/10/2024 for significant oliguric acute kidney injury. 2. Acute on chronic diastolic CHF 3. Volume overload 4. Hypertension with CKD stage IV 5. Acute hypoxic respiratory failure secondary to CHF 6. Coronary artery disease with history of coronary stents 7. Metabolic acidosis maintained on oral sodium bicarb. 8. Right heel wound status post debridement Plan: Hemodialysis in today and in a.m. Encouraged increased oral intake.
[2024-06-20 00:01] LABS: Glucose,Whole Blood 221 mg/dL (70-110)
[2024-06-20 06:03] LABS: Glucose,Whole Blood 173 mg/dL (70-110)
--- NOTE | 2024-06-20 11:27 | P.PN ---
Subjective HISTORY OF PRESENT ILLNESS: This is 73-year-old male patient of Dr. Bales with past medical history of coronary artery disease status post PCI of the LAD and second diagonal branch, known severe disease involving the OM1, heart failure with preserved EF, diabetes, hypertension, dyslipidemia, chronic kidney disease, dilated ascending aorta, history of colectomy and overweight. We have been asked to evaluate the patient for CHF. Patient was recently hospitalized 05/28 - 05/31 and was treated for CHF and acute kidney injury. Patient states that when he went home he did not feel any better related to shortness of breath and when he had come in. He states he continues to have shortness of breath which is worsening and also has a little lightheadedness and dizziness. He complains of chest pain across the mid chest and also some left lower abdominal pain. He denies cough but he states in the morning he has sputum production. No significant lower extremity edema. He does have a chronic wound to the right foot with the boot in place. Blood pressure 121/61, heart rate 69, pulse ox 96% on 2 and half liters nasal cannula. Patient has been started on IV Lasix 80 mg every 12 hours. -EKG: Atrial fibrillation [address] changes -Chest x-ray: Correlate for volume overload -Laboratory studies: WBC 10.2, hemoglobin 10.4, platelet count 374. Sodium 135, potassium 4.6, BUN 66 and creatinine 2.71. Troponin negative x 1. proBNP 2550. -Home cardiac medications: Amlodipine 10 mg daily, aspirin 81 mg daily, atorvastatin 40 mg daily, Plavix 75 mg daily, Farxiga 10 mg daily, hydralazine 25 mg 3 times daily, Imdur 60 mg daily, Toprol XL 25 mg daily, Ranexa 500 mg every 12 hours, Demadex 40 mg daily. -Echocardiogram from 05/28/2024 revealed technical difficult study minimal mitral and tricuspid regurgitation. No pericardial effusion. -Cardiac catheterization history: April 26, 2024 revealing patent stent in the mid LAD. Late stent thrombosis of the second diagonal branch of the LAD, severe disease involving OM1 appeared unchanged compared to before, attempted balloon angioplasty was performed of second diagonal branch with suboptimal results June 09, 2024 The patient was seen and evaluated this morning. Unfortunately the kidney function is worse. He is still in failure now requiring BiPAP. The chest x-ray from yesterday showed finding consistent with failure. He continues to be on Lasix IV. Nephrology team is on the case. The physical examination is remarkable for regular rhythm wit diminished breathing sounds bilaterally and mild bilateral expiratory wheezing and mild bilateral lower extremities edema. Beside that he is hyperkalemic that is under treatment at this point. 06/10/2024 Patient examined this morning at the bedside. Patient currently reports shortness of breath. He remains on IV Lasix. He denies any chest pain or pressure. Creatinine is worsening today at 4.1. Patient states that he spoke with nephrology this morning and plan is to begin hemodialysis today. 06/11 Patient seen and examined Patient is preparing to have his second dialysis treatment this morning. He is on 100% BiPAP pulse ox 92%. Blood pressure 129/58, heart rate 70. No repeat blood work today. 06/12/2024 Patient is seen and examined at bedside this a.m. Patient is maintained on BiPAP support, saturating 92%. Hemodynamically stable. EKG shows sinus rhythm on telemetry. 06/13/2024, Seen and examined at bedside this a.m. Patient is BiPAP dependent and is not able to tolerate removal of BiPAP even for food and medications. BP 120/50, heart rate 80 bpm, sinus rhythm on telemetry, 95% saturation on BiPAP support Minimal urine output chest x-ray shows significant pulmonary edema suggestive of volume overload. Would recommend continuing fluid removal with hemodialysis and hold his antihypertensives before his hemodialysis so that more volume can be removed during dialysis session. 06/14/24 Patient is getting hemodialysis, fluid status appears to be improved. Still on continuous BiPAP support . 06/15/2024 Patient noticed to be hypotensive today after hemodialysis. We will hold his antihypertensives. Patient has had significant negative fluid balance with continuous hemodialysis in last 2 days. I would recommend reducing the amount of ultrafiltrate as I feel that patient is now getting towards more dehydration. 06/16/2024 Patient was transferred out of ICU to 3 S. floor today. Anticipated hemodialysis tomorrow. Minimal urine output. Lawson catheter is out. Blood pressure systolic around 110, continues to be in sinus rhythm on telemetry. He was hypotensive yesterday. Today blood pressure is better. 06/17/2024 Patient examined this morning at the bedside. Patient reports improvement in his shortness of breath. He remains on Airvo. He denies chest pain or pressure. He states he is supposed to get hemodialysis today. Blood pressure stable with a systolic in the 120s. 06/18/2024 Patient examined this morning at the bedside. Patient reports improvement in his shortness of breath. He denies chest pain or pressure. He underwent hemodialysis yesterday. Patient is scheduled to undergo hemodialysis catheter insertion tomorrow with Dr. Carpenter. Vital signs are stable. Blood pressure 126/61. Patient has been weaned off Airvo and is currently on 7 L high flow nasal cannula with oxygen saturations greater than 92%. Telemetry reveals sinus mechanism. 06/19/2024 Patient examined this morning at the bedside. Patient underwent hemodialysis catheter insertion today with Dr. Carpenter. He is scheduled to undergo hemodialysis today. He currently denies chest pain or pressure. Patient remains on high flow nasal cannula at 11 L. Telemetry reveals sinus mechanism. 06/20/2024 Patient examined this morning at the bedside. Patient is currently undergoing hemodialysis. Patient reports he is having very mild dizziness and shortness of breath this morning. Vital signs are stable. PHYSICAL EXAM: VITAL SIGNS: Reviewed. GENERAL: Well-developed in no acute distress. NECK: Supple. No JVD or thyromegaly LUNGS: Respirations even and unlabored. Lungs clear to auscultation. HEART: Regular rate and rhythm. S1 and S2 heard. + Systolic murmur. EXTREMITIES: Normal range of motion. No clubbing or cyanosis. Peripheral pulses intact. 1+ bilateral lower extremity edema ASSESSMENT: Shortness of breath Acute on chronic diastolic heart failure Acute on chronic kidney disease, initiated on hemodialysis 06/10/2024 History of coronary artery disease with PCI of the LAD and second diagonal with known severe disease involving the OM1 Diabetes Hypertension Dyslipidemia Dilated ascending aorta History of colectomy Nonhealing right heel wound PLAN: Continue current cardiac medications Continue hemodialysis per nephrology. Continue to monitor kidney function Wean oxygen as tolerated Continue to monitor blood pressure Increase activity as tolerated. PT OT on consult. Patient is stable from a cardiac perspective We will sign off. Please reconsult if needed. Nurse practitioner note has been reviewed by physician. Signing provider agrees with the documented findings, assessment, and plan of care documented by DOMESTIC VIOLENCE COUNSELOR as a scribe. Objective - Vital Signs Vital signs: Vital Signs Temp 97.4 F L 06/20/24 07:49 Pulse 98 06/20/24 10:59 Resp 20 06/20/24 11:17 BP 123/57 06/20/24 07:49 Pulse Ox 96 06/20/24 11:17 FiO2 80 06/19/24 07:36 Intake & Output 06/19/24 06/20/24 06/20/24 18:59 06:59 18:59 Intake Total 595 500 Output Total 6400 Balance 595 -5900 Weight 67.5 kg Intake: IV 100 Piperacillin-Tazobactam 3 100 .375 gm In Sodium Chloride 0.9% 100 ml @ 25 mls/hr IVPB Q12HR [facility] Rx #:[id number] Oral 595 Hemodialysis 400 Output: Hemodialysis 3400 Hemodialysis Net Amount 3000 Other: Voiding Method Urinal Urinal # Bowel Movements 1 - Labs CBC & Chem 7: 06/16/24 04:52 06/16/24 04:52 Labs: Abnormal Lab Results - Last 24 Hours (Table) 06/19/24 06/19/24 06/20/24 Range/Units 11:37 16:36 00:00 POC Glucose (mg/dL) 128 H 133 H 221 H (70-110) mg/dL 06/20/24 Range/Units 06:02 POC Glucose (mg/dL) 173 H (70-110) mg/dL
--- NOTE | 2024-06-20 12:07 | P.PN ---
Subjective Patient is seen for follow-up for chronic kidney disease and acute kidney injury. Started hemodialysis on 06/10/2024 No significant complaints today. Patient is comfortable. No significant urine output noted. Seen on hemodialysis. Tolerating treatment well. Running reversed with new catheter. Objective - Vital Signs Vital signs: Vital Signs Temp 97.5 F L 06/20/24 11:27 Pulse 95 06/20/24 11:27 Resp 16 06/20/24 11:27 BP 120/79 06/20/24 11:27 Pulse Ox 96 06/20/24 11:27 FiO2 80 06/19/24 07:36 Intake & Output 06/19/24 06/20/24 06/20/24 18:59 06:59 18:59 Intake Total 595 500 Output Total 6400 Balance 595 -5900 Weight 67.5 kg Intake: IV 100 Piperacillin-Tazobactam 3 100 .375 gm In Sodium Chloride 0.9% 100 ml @ 25 mls/hr IVPB Q12HR [facility] Rx #:[id number] Oral 595 Hemodialysis 400 Output: Hemodialysis 3400 Hemodialysis Net Amount 3000 Other: Voiding Method Urinal Urinal # Bowel Movements 1 - Exam Patient is awake, comfortable, no acute distress Examination of lower extremities shows trace edema LONG LINES OPERATOR exam grossly intact - Labs CBC & Chem 7: 06/16/24 04:52 06/16/24 04:52 Labs: Abnormal Lab Results - Last 24 Hours (Table) 06/19/24 06/20/24 06/20/24 Range/Units 16:36 00:00 06:02 POC Glucose (mg/dL) 133 H 221 H 173 H (70-110) mg/dL Assessment and Plan Assessment: 1. Acute kidney injury, nonoliguric, cardiorenal. UA is benign and ultrasound does not show any evidence of hydronephrosis. Started hemodialysis on 06/10/2024 for significant oliguric acute kidney injury. 2. Acute on chronic diastolic CHF 3. Volume overload 4. Hypertension with CKD stage IV 5. Acute hypoxic respiratory failure secondary to CHF 6. Coronary artery disease with history of coronary stents 7. Metabolic acidosis maintained on oral sodium bicarb. 8. Right heel wound status post debridement Plan: Hemodialysis in today Next treatment on Monday to Encouraged increased oral intake.
[2024-06-20 12:09] LABS: Glucose,Whole Blood 148 mg/dL (70-110)
--- NOTE | 2024-06-20 14:14 | P.PN ---
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 Jernigan his marketing technology specialist with recent outpatient culture positive for MRSA and is Proteus. On today's evaluation that is 06/20/2024,the patient remains to be afebrile, patient is on 15 L high flow supplemental oxygen and denies any worsening shortness of breath no chest pain or any worsening. Cough.Patient denies having any nausea or vomiting, no abdominal pain and no diarrhea has been reported no new labs has been obtained today Objective - Vital Signs Vital signs: Vital Signs Temp 97.5 F L 06/20/24 11:27 Pulse 86 06/20/24 12:58 Resp 16 06/20/24 11:27 BP 114/58 06/20/24 12:58 Pulse Ox 96 06/20/24 11:27 FiO2 80 06/19/24 07:36 Intake & Output 06/19/24 06/20/24 06/20/24 18:59 06:59 18:59 Intake Total 595 500 Output Total 6400 Balance 595 -5900 Weight 67.5 kg Intake: IV 100 Piperacillin-Tazobactam 3 100 .375 gm In Sodium Chloride 0.9% 100 ml @ 25 mls/hr IVPB Q12HR [facility] Rx #:[id number] Oral 595 Hemodialysis 400 Output: Hemodialysis 3400 Hemodialysis Net Amount 3000 Other: Voiding Method Urinal Urinal # Bowel Movements 1 - Exam GENERAL DESCRIPTION: An elderly male lying in bed in no distress RESPIRATORY SYSTEM: Unlabored breathing , decreased breath sounds at bases HEART: S1 S2 regular rate and rhythm , ABDOMEN: Soft , no tenderness EXTREMITIES: Right hand wound is currently dressed - Labs CBC & Chem 7: 06/16/24 04:52 06/16/24 04:52 Labs: Abnormal Lab Results - Last 24 Hours (Table) 06/19/24 06/20/24 06/20/24 Range/Units 16:36 00:00 06:02 POC Glucose (mg/dL) 133 H 221 H 173 H (70-110) mg/dL 02/20/25 Range/Units 12:07 POC Glucose (mg/dL) 148 H (70-110) mg/dL Assessment and Plan (1) Diabetic infection of right foot Current Visit: Yes Status: Acute Code(s): E11.628 - TYPE 2 DIABETES MELLITUS WITH OTHER SKIN COMPLICATIONS; L08.9 - LOCAL INFECTION OF THE SKIN AND SUBCUTANEOUS TISSUE, UNSP SNOMED Code(s): 052451352 (2) MRSA (methicillin resistant staph aureus) culture positive Current Visit: Yes Status: Acute Code(s): Z22.322 - CARRIER OR SUSPECTED CARRIER OF METHICILLIN RESIS STAPH SNOMED Code(s): 680754837 (3) Diabetic ulcer of right foot Current Visit: No Status: Acute Code(s): E11.621 - TYPE 2 DIABETES MELLITUS WITH FOOT ULCER; L97.519 - NON-PRS CHRONIC ULCER OTH PRT RIGHT FOOT W UNSP SEVERITY SNOMED Code(s): 085676819 (4) Stage III pressure ulcer of right heel Current Visit: No Status: Acute Code(s): L89.613 - PRESSURE ULCER OF RIGHT HEEL, STAGE 3 SNOMED Code(s): 33544895975693 Plan: 1patient with a chronic nonhealing wound to the right heel which he has for couple of months the wound looks deep with a recent culture positive for Proteus and MRSA concerning for wound infection and question for possible deeper infection such as osteomyelitis as wound has been there for couple of months now 2- x-rays of the right heel with no evidence of any bony changes 3-patient has been evaluated by Dr. Carpenter and did have surgical debridement completed on 06/07/2024 and did have a further debridement at the bedside by his marketing technology specialist on 06/14/2024 4-patient still have necrotic wound to the right heel he may benefit from further surgical debridement nursing staff to communicate with the vascular surgery and podiatry 5patient will continue with Zosyn and daptomycin while inpatient as we do not have any good oral option to transition however no plan for IV antibiotic on d ischarge Dictation was produced using [employer] dictation software. please excuse any grammatical, word or spelling errors. Time with Patient: Less than 30
--- NOTE | 2024-06-20 16:07 | P.PN ---
Progress Note - Text Progress Note Date: 06/20/24 Chief Complaint: Short of breath Pleasant 73-year-old patient follows with Dr. Dennis. 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 Bales. April 26, [address] Bales: Following a non-ST relation AL: Patent stent to mid LAD. Late stent thrombosis of the second diagonal branch of the LAD. Severe disease involving the OM1 appears unchanged. Attempted balloon angioplasty performed to the second of diagonal branch with suboptimal results. Dose of Imdur was increased and Ranexa was added. Patient recently in the hospital from May 28 through May 31. Chronic headaches: MRI unremarkable. MR angio head and neck: MR angio head without contrast: No evidence of aneurysm or significant stenosis. Atrophic right A1 segment. origin of the right posterior cerebral artery.MRI of the brain nonspecific. Was seen by neurology Dr. Gay. Patient to follow-up outpatient Chronic right heel wound seen by Dr. Carpenter from vascular deep debridement was carried out. No need for antibiotics. Patient to follow-up with Dr. Jernigan at the wound center. Shortness of breath: Was seen by cardiology. Not for any further intervention. Patient doing well when discharged. Patient presented increased shortness of breath when at home. His pulse ox dropped out of the 80s. Increasing shortness of breath. Decreased appetite. No fever or chills. June 10: Using his BiPAP. Patient seen this morning. Later this afternoon. Right femoral vein dialysis catheter was placed by Dr. Carpenter from vascular for dialysis. Baseline some shortness of breath. Due for first dialysis today. Patient is right heel culture grew MRSA Proteus P Corynebacterium on May 29. Patient is on IV daptomycin and IV cefepime per ID. June 11: Patient seen this afternoon. On BiPAP. Getting hemodialysis. Remains on IV daptomycin IV Zosyn. Tired. Also getting IV iron. Patient really did not eat today. Because of BiPAP. Cut back Levemir to 26 units at night. DC scheduled NovoLog for now. June 12: Overflowing the ICU. Remains on BiPAP. 04/05/90%. at the bedside. Remains on IV daptomycin and IV Zosyn. For dialysis today. X-ray continues shows infiltrates. Significantly hypoxic. N.p.o. June 13: ICU. Remains on BiPAP. 12/6/90% moderate take anything by mouth. Spoke to the nurse have TPN lipids ordered. Remains on IV daptomycin IV Zosyn. Chest x-ray continues to show diffuse infiltrates. Continues to be followed by cardiology pulmonary ID nephrology. June 14: ICU. Later this afternoon patient was put on Airvo. 60/60. Has some delirium. Remains on IV daptomycin and IV Zosyn. Had 2 L ultrafiltration yesterday. Patient getting daily dialysis for now. As patient is oliguric per nephrology Lasix has been held. TPN was ordered yesterday per the nurse culture that returned to feed the patient. Will see how that goes. Dietitian on the case. June 15: ICU. Patient be getting hypotensive. Some medications held back by cardiology. Hemodialysis done today. Patient remains on Airvo though at 50/50. at the bedside. Plans this afternoon to get him up in the chair. Remains on daptomycin and IV Zosyn. IV Lasix been discontinued. Patient tolerating some liquid diet. June 16: Patient moved to the ICU. Remains on Airvo. 45/45. at the bedside. Tolerating full liquids. Spoke to the about the morphine. His headaches are chronic. Use Fioricet as needed. Remains on IV daptomycin and IV Zosyn. IV Solu-Medrol. Amlodipine dose cut back. PT OT. June 17: On 3 S., telemetry floor. Getting hemodialysis today. Remains on IV daptomycin IV Zosyn. On full liquid diet. Advance to ground diet. Minimal urine output. DC fluid restriction. Awake communicating. Accu-Cheks running high. Increase Levemir to 28 units subcu twice daily. Seen by PT OT. Maximum assist. On Airvo 40/40. Cut back Solu-Medrol to every 12. June 18: On a recliner. 7 L nasal cannula. Decreased appetite. at the bedside. Accu-Chek in 200s. IJ PermCath placement pending. Encourage oral intake. Ordered incentive spirometry June 19: Patient was on 7 L nasal cannula yesterday. Patient back on Airvo today. 40 L. Due for hemodialysis today. Had perm dialysis catheter placed right IJ by Dr. Carpenter today. Minimal intake today. Discussed with at the bedside. June 20: Recliner. High flow 15 L nasal cannula. at the bedside. Decreased oral intake.Tired. Hemodialysis today. Active Medications Acetaminophen (Acetaminophen Tab 325 Mg Tab) 650 mg PO Q6HR PRN PRN Reason: Mild Pain or Fever > 100.5 Last Admin: 06/20/24 09:24 Dose: 650 mg Acetaminophen/Butalbital/Caffeine (Butalb/Apap/Caff 50-325-40mg Tab) 1 each PO Q4H PRN PRN Reason: Migraine Headache Albuterol/Ipratropium (Ipratropium-Albuterol 3 Ml Neb) 3 ml INHALATION RT-QID [facility] Last Admin: 06/20/24 15:19 Dose: 3 ml Albuterol/Ipratropium (Ipratropium-Albuterol 3 Ml Neb) 3 ml INHALATION RT-QID PRN PRN Reason: Shortness Of Breath Or Wheezing Allopurinol (Allopurinol 100 Mg Tab) 100 mg PO DAILY [facility] Last Admin: 06/20/24 12:44 Dose: 100 mg Amlodipine Besylate (Amlodipine 5 Mg Tab) 5 mg PO DAILY [facility] Last Admin: 06/19/24 12:01 Dose: 5 mg Aspirin (Aspirin 81 Mg) 81 mg PO DAILY [facility] Last Admin: 06/20/24 12:43 Dose: 81 mg Atorvastatin Calcium (Atorvastatin 40 Mg Tab) 40 mg PO DAILY [facility] Last Admin: 06/20/24 12:43 Dose: 40 mg Budesonide (Budesonide 1 Mg/2 Ml Nebu) 1 mg INHALATION RT-BID [facility] Last Admin: 06/20/24 10:46 Dose: 1 mg Calcitriol (Calcitriol 0.25 Mcg Cap) 0.25 mcg PO Mo@0900 [facility] Last Admin: 06/17/24 11:37 Dose: 0.25 mcg Clopidogrel Bisulfate (Clopidogrel 75 Mg Tab) 75 mg PO DAILY [facility] Last Admin: 06/20/24 12:43 Dose: 75 mg Collagenase (Collagenase 250 Unit/Gm Ointment 30 Gm Tube) 1 applic TOPICAL DAILY [facility]; Protocol Last Admin: 06/20/24 11:57 Dose: Not Given Darbepoetin Silverio (Darbepoetin Silverio 40 Mcg/0.4 Ml Syringe) 40 mcg SQ Q7D [facility] Last Admin: 06/19/24 11:41 Dose: 40 mcg Dextrose/Water (Dextrose 50% Syringe 50 Ml) 25 ml IVP PER PROTOCOL PRN; Protocol PRN Reason: Hypoglycemia Dextrose/Water (Dextrose 50% Syringe 50 Ml) 50 ml IVP PER PROTOCOL PRN; Prot ocol PRN Reason: Hypoglycemia Ergocalciferol (Ergocalciferol 1,250 Mcg (50,000 Iu) Capsule) 1,250 mcg PO Q14D [facility] Last Admin: 06/19/24 11:40 Dose: 1,250 mcg Escitalopram Oxalate (Escitalopram 10 Mg Tab) 10 mg PO DAILY [facility] Last Admin: 06/20/24 12:44 Dose: 10 mg Gabapentin (Gabapentin 100 Mg Cap) 100 mg PO HS [facility] Last Admin: 06/19/24 20:36 Dose: Not Given Haloperidol Lactate (Haloperidol Lactate 5 Mg/Ml 1 Ml Vial) 5 mg IVP ONCE PRN PRN Reason: Agitation or Acute Psychosis Last Admin: 06/14/24 23:51 Dose: 5 mg Haloperidol Lactate (Haloperidol Lactate 5 Mg/Ml 1 Ml Vial) 5 mg IVP Q8HR PRN PRN Reason: Agitation or Acute Psychosis Last Admin: 06/13/24 03:01 Dose: 5 mg Heparin Sodium (Porcine) (Heparin Sodium,Porcine 5,000 Unit/Ml 1 Ml Vial) 5,000 unit SQ Q8HR [facility] Last Admin: 06/20/24 11:56 Dose: Not Given Hydralazine HCl (Hydralazine Hcl 25 Mg Tab) 25 mg PO TID [facility] Last Admin: 06/20/24 11:57 Dose: Not Given Daptomycin 350 mg/ Sodium (Chloride) 50 mls @ 100 mls/hr IVPB Q48H [facility]; Protocol Last Admin: 06/20/24 12:44 Dose: 100 mls/hr Piperacillin Sod/Tazobactam (Sod 3.375 gm/ Sodium Chloride) 100 mls @ 25 mls/hr IVPB Q12HR [facility]; Protocol Last Admin: 06/19/24 21:03 Dose: 25 mls/hr Insulin Aspart (Insulin Aspart (Novolog) 100 Unit/Ml Vial) 0 unit SQ Q6HR [facility]; Protocol Last Admin: 06/20/24 12:10 Dose: Not Given Insulin Detemir (Insulin Detemir (Levemir) 100 Unit/Ml Syr) 28 unit SQ BID@0700,2100 [facility] Last Admin: 06/20/24 08:24 Dose: 28 unit Isosorbide Mononitrate (Isosorbide Mononitrate Er 60 Mg Tab.Er.24h) 60 mg PO DAILY [facility] Last Admin: 06/20/24 12:44 Dose: 60 mg Metoprolol Succinate (Metoprolol Succinate (Er) 25 Mg Tab.Er.24h) 25 mg PO DAILY [facility] Last Admin: 06/20/24 12:44 Dose: 25 mg Naloxone HCl (Naloxone 0.4 Mg/Ml 1 Ml Vial) 0.2 mg IV Q2M PRN PRN Reason: Opioid Reversal Collagenase 250 Unit /Gm Ointment 30 Gm Tube 1 each TOPICAL DAILY [facility]; Protocol Last Admin: 06/20/24 11:59 Dose: Not Given Pantoprazole Sodium (Pantoprazole 40 Mg/10 Ml Vial) 40 mg IVP DAILY [facility] Last Admin: 06/20/24 12:44 Dose: 40 mg Petrolatum (Zinc Oxide Paste (Z-Guard) 1 Applic) 1 applic TOPICAL BID [facility]; Protocol Ranolazine (Ranolazine 500 Mg Tab.Er.12h) 500 mg PO Q12HR [facility] Last Admin: 06/20/24 12:45 Dose: 500 mg Tamsulosin HCl (Tamsulosin 0.4 Mg Cap.Er.24h) 0.4 mg PO PC-BRKFST [facility] Last Admin: 06/20/24 12:44 Dose: 0.4 mg Triamcinolone Acetonide (Triamcinolone Acet 0.5% Cream 15 Gm Tube) 1 applic TOPICAL BID PRN; Protocol PRN Reason: rash/dry skin Social history: Non-smoking. No alcohol. On examination: VITAL SIGNS: 97.5, 93, 18, 1 4523, 90% on 15 L high flow cannula GENERAL APPEARANCE: In a recliner, tired HEENT: Normal external appearance of nose and ear. Oral cavity normal EYES: Pupils equal. Conjunctiva normal. NECK: JVD not raised. Mass not palpable. RESPIRATORY: Respiratory effort increased lungs decreased breath sounds with some fine crackles CARDIOVASCULAR: First and second sounds normal. Minimal edema in the right leg ABDOMEN: Soft. Liver and spleen not palpable. No tenderness. No right upper quadrant tenderness. No mass palpable. Colostomy bag with liquid stool PSYCHIATRY: Answering simple questions Extremity: Right foot in dressing INVESTIGATIONS, reviewed in the clinical context: June 16: White count 12.4 hemoglobin 10.1 platelets 202 sodium 128 potassium 4.4 BUN 32 creatinine 3.11 June 15: White count 9.4 hemoglobin 9.4 platelets 2 3 potassium 4.1 bicarb 25 BUN 32 creatinine 3.14 June 14: White count 16.2 hemoglobin 9.2 platelets 236 sodium 134 potassium 4.3 BUN 68 creatinine 3.26 June 13: White count 16.5 hemoglobin 9.3 platelets 273 sodium 135 potassium 4.7 BUN 38 creatinine 3.34 June 11: Potassium 4.9 BUN 108 creatinine 4.1 June 10: White count 12.8 hemoglobin 7.9 platelets 335 sodium 135 potassium 5.2 BUN 118 creatinine 4.1 June 04: White count 10.2 hemoglobin 10.4 platelet 374 sodium 135 potassium 4.6 BUN 66 creatinine 2.71 troponin I less than 0.012 proBNP 2550 EKG tracing personally reviewed by me-atrial fibrillation. Rate 68 Chest x-ray film personally reviewed by me-pulm edema Recent labs May 30: Potassium 4.7 BUN 42.3 creatinine 2.3 Assessment and plan: -Acute on chronic congestive heart failure exacerbation, from diastolic dysfunction EF 55 to 60%.: Better Received IV Lasix Started on dialysis June 10.- -Acute hypoxic respiratory failure from pulmonary edema: Slow to respond Initially BiPAP 12/6/90%. Then Airvo. Today high flow 15 L nasal cannula -Acute respiratory distress syndrome, multifactorial: Slowly improving On Airvo IV Solu-Medrol, 40 mg every 12-discontinued -COPD non-smoker DuoNeb 4 times daily. Nebulized Pulmicort -Chronic ostomy-functioning well -Chronic cephalgia. Patient stated headaches for greater than 6 months. Practically every day. Does not interfere with his eating. No exacerbating relieving factors: Possible tension headaches. CT scan of the brain shows some chronic changes MRI and MRI of the brain showing chronic changes. Seen by Dr. Gay from neurology a week ago. Further outpatient follow-up with neurology -Acute delirium/metabolic encephalopathy. Multifactorial: Better -Right heel wound. Dry. Follows with Dr. Jernigan at the wound center. Dr. Carpenter from vascular-. Deep debridement carried recently Wound culture [May 29] MRSA, Proteus IV cefepime, daptomycin per ID -Chronic parastomal hernia #Hypertension: Amlodipine. Toprol-XL. Hydralazine -Acute kidney injury, likely cardiorenal: On hemodialysis Right femoral vein dialysis catheter placed by Dr. Carpenter on June 10. Hemodialysis started June 10-Daily For PermCath placement -CKD likely nephrosclerosis, diabetic nephropathy Creatinine was 1.6 on April 28, 2024. -CAD with stent Toprol-XL -Anemia in the setting of chronic kidney disease. Iron deficiency anemia. Given IV iron -Primary osteoarthritis Pain medication as needed -History of prostate cancer with radiation and chemo in 2020. 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 History of Any Multi-Drug Resistant Organisms: MRSA Date of last positivie culture/infection: 05/24/24 MDRO Source:: rt heel, scalp Past Surgical History: Appendectomy, Bowel Resection, Heart Catheterization, Heart Catheterization With Stent Additional Past Surgical History / Comment(s): COLECTOMY, RECTUM REMOVED, ELLIOTT CATARACTS removed, ILEOSTOMY, HERNIA SURGERY. Past Anesthesia/Blood Transfusion Reactions: No Reported Reaction Additional Past Anesthesia/Blood Transfusion Reaction / Comment(s): no problems with prior blood transfusions. Date of Last Stent Placement:: 08/01/2023 Past Psychological History: No Psychological Hx Reported Smoking Status: Never smoker Past Alcohol Use History: None Reported Past Drug Use History: None Reported
[2024-06-20 16:08] LABS: Glucose,Whole Blood 288 mg/dL (70-110)
[2024-06-20] MEDS: LIDOCAINE 1% INJ 10MG/ML (20 ML MDV) SQ ONE (16:35)
--- NOTE | 2024-06-20 17:36 | P.PN ---
Subjective Progress Note Date: 06/20/24 Patient is a 73-year-old male with past medical history significant for hypertension, hyperlipidemia, coronary artery disease with previous PCI/stenting, heart failure, chronic kidney disease, diabetes mellitus, chronic right heel wound, ulcerative colitis with previous colectomy and ileostomy. Of note, patient had a recent hospitalization late May and was just discharged 05/31/2024 for CHF exacerbation. Echocardiogram done during this hospitalization estimating a preserved left ventricular ejection fraction of 55 to 60%. Limited study, but no acute valvular abnormalities reported. Presented the emergency department on 06/04/2024 with a chief complaint of shortness of breath, mostly on exertion. Chest x-ray showing cardiomegaly, mild pulmonary vascular congestion, and a small pleural effusion on the left. NT proBNP elevated 2550. Currently receiving Lasix 80 mg twice daily. CBC: WBC count 10.2, hemoglobin 10.4, hematocrit 32.5, platelets 374. CMP: Sodium 135, potassium 4.6, chloride 101, serum bicarb 18, BUN 66, creatinine 2.71, glucose 139. Troponin is less than 0.012. Patient currently being evaluated on the general medical floor. Appears weak and deconditioned. He is resting in bed on 1 L/min nasal cannula. No respiratory distress noted. Complaining of a generalized headache, which he states is chronic. States that he has been short of breath on exertion for several months to almost 1 year. Particularly on exertion such as climbing stairs or walking to the bathroom. Denies history of COPD or asthma. Never tobacco smoker. Worked in an [employer] shop before he retired. Denies cough. Denies infectious-like symptoms. Current vital signs: Temperature 98 F, heart rate 78 bpm, blood pressure 145/54 mmHg, nontachypneic, SpO2 recorded at 91% on 1 L/min nasal cannula. The patient is seen today June 07, 2024 in follow-up on the regular medical floor. He is awake and alert in no acute distress. Sitting up at the bedside. Maintaining O2 saturations in the 90s on 3 L/min per nasal cannula. White count 9.8. Hemoglobin 8.9. Platelets 366. Sodium 140. Potassium 4.7. Bicarb 22. BUN 60. Creatinine 2.4. Glucose 97. He remains on DuoNeb and elations, Pulmicort inhalations. Lasix 80 mg IV every 12 hours. He is currently -1.1 L balance. Antibiotics in the form of cefepime and daptomycin for his diabetic ulcer of the right foot. X-ray revealed no osseous erosion or acute fracture. The patient is seen today June 08, 2024 in follow-up on the regular medical floor. He did have issues with worsening shortness of breath. He is currently on BiPAP 12/6 and 40% FiO2. White count 6.3. Hemoglobin 8.5. Platelets 357. Sodium 136. Potassium 5.8. Bicarb 21. BUN 64. Creatinine 2.4. Glucose 178. Chest x-ray continues to show evidence of congestive heart failure. He is currently on Lasix 80 mg IV every 12 hours. Continued on bronchodilators and steroids. Remains on antibiotics in the form of cefepime and daptomycin. The patient is seen today June 09, 2024 in follow-up on the regular medical floor. He is currently resting comfortably in bed. Awake and alert in no acute distress. Breathing easier today compared to yesterday. He is currently on BiPAP 12/6 and 40% FiO2. White count 10.1. Hemoglobin 8.0. Platelets 339. Sodium 136. Potassium 5.8. Bicarb 21. BUN 94. Creatinine 3.4. Glucose 234. He remains on DuoNeb and elations, Pulmicort inhalations, Solu-Medrol. Remains on IV diuretics. Remains on cefepime and daptomycin. Receiving Lokelma. The patient is seen today June 10, 2024 in follow-up on the regular medical floor. He is currently sitting up at the bedside. Awake and alert in no acute distress. He is requiring BiPAP support at 12/6 and 60% FiO2. Alternating with oxygen at 4 L/min per nasal cannula. He is continued on DuoNeb inhalations, Pulmicort inhalations, Solu-Medrol. He remains on antibiotics in the form of cefepime and daptomycin. Receiving iron supplement. Continued on IV diuretics. Continued on sodium bicarb tablets. White count 12.8. Hemoglobin 7.9. Platelets 335. Sodium 135. Potassium 5.2. Bicarb 23. BUN 118. Creatinine 4.1. Glucose 131. Plan is for placement of a hemodialysis catheter today and to receive hemodialysis today and tomorrow per nephrology. The patient is seen today June 12, 2024 in follow-up in the intensive care unit. He was transferred here last evening as his oxygen requirements increased. He is currently on BiPAP 12/6 and 90% FiO2. Arterial blood gases revealed a PaO2 of 60, pCO2 39 and a pH of 7.44. Chest x-ray continues to show diffuse bilateral airspace disease. Blood culture revealed no growth. White count 15.8. Hemoglobin 8.4. Platelets 257. Sodium 135. Potassium 4.4. Bicarb 23. BUN 90. Creatinine 3.51. Glucose 165. proBNP 7440. Procalcitonin pending. He is continued on daptomycin and Zosyn. Remains on Lasix 80 mg IV every 12 hours. Oertli in a -4 L balance. He did receive hemodialysis yesterday and again today 2 L removed each time. He is continued on DuoNeb and elations, Pulmicort inhalations. Solu-Medrol. The patient is seen today June 13, 2024 in follow-up in the intensive care unit. He remains mostly BiPAP dependent currently on 12/6 and 90% FiO2. No IV fluids. The plan is for hemodialysis again today which will be day #4 with approximately 2 L removed each time. Chest x-ray is showing evidence of acute respiratory distress syndrome. His PF ratio is 66 indicating severe ARDS. Blood culture revealed no growth. White count 16.5. Hemoglobin 9.3. Platelets 273. Sodium 135. Potassium 4.7. Bicarb 25. BUN 78. Creatinine 3.34. Glucose 211. Procalcitonin is elevated at 4.78. He remains on DuoNeb inhalations, Pulmicort inhalations, Solu-Medrol. Remains on daptomycin and Zosyn. Remains on Lasix 80 mg IV every 12 hours. Currently in a -4 L balance. Heparin for DVT prophylaxis. Protonix for GI prophylaxis. The patient is seen today June 14, 2024 in follow-up in the intensive care unit. He is awake and alert in no acute distress. He remains on BiPAP 12/6 and 60% FiO2. He is receiving hemodialysis again today with a goal of 2 to 2-1/2 L to be removed. His chest x-ray is showing improvement. Microbiology reveals no growth. He remains on Zosyn. Procalcitonin was 4.78. He has normal saline at KVO. White count 16.2. Hemoglobin 9.2. Platelets 236. Sodium 134. Potassium 4.3. Bicarb 27. BUN 68. Creatinine 3.26. Glucose 210. He remains on DuoNeb inhalations, Pulmicort inhalations, IV Solu-Medrol. He remains on daptomycin and Zosyn. He remains on Lasix 80 mg IV every 12 hours. Currently in a -7.8 L balance. Heparin for DVT prophylaxis. He did undergo debridement with surgical open necrotic tissue of the right heel for diabetic Walter grade 2 ulceration. The patient is seen today June 15, 2024 in follow-up in the intensive care unit. He is currently sitting up in bed. Awake and alert in no acute distress. He is continued on BiPAP 12/6 and 50% FiO2. He is alternating with Airvo high flow oxygen at 50 L and 60% FiO2. Chest x-ray showing improved aeration. He received hemodialysis yesterday with another 2-1/2 L removed. The plan is for hemodialysis again today. He has normal staying at [facility]. He remains on daptomycin and Zosyn. He remains on DuoNeb and elations, Pulmicort inhalations, Solu-Medrol. Heparin for DVT prophylaxis. Remains on Lasix 80 mg IV every 12 hours. White count 9.4. Hemoglobin 9.4. Platelets 203. Sodium 131. Potassium 4.1. Bicarb 25. BUN 72. Creatinine 3.14. Glucose 299. The patient is seen today June 16, 2024 in follow-up in the intensive care unit. He is currently sitting up in bed. Awake and alert in no acute distress. He is maintaining good O2 saturations in the 90s on Airvo high flow oxygen at 50 L and 50% FiO2. He has been off BiPAP for over 24 hours. He received hemodialysis yesterday with 2.5 L removed. The plan is for hemodialysis tomorrow. Chest x-ray shows similar bilateral airspace opacities. Blood culture revealed no growth. White count 12.4. Hemoglobin 10.1. Platelets 202. Sodium 128. Potassium 4.4. Bicarb 21. BUN 72. Creatinine 3.11. Glucose 330. He remains on DuoNeb inhalations, Pulmicort inhalations. Heparin for DVT prophylaxis. Remains on IV Solu-Medrol. Remains on Zosyn. 06/17/2024, the patient is being seen for a follow-up. There is a 73-year-old female patient who is being seen in follow-up regarding his hypoxic respiratory failure. On today's evaluation, the patient remains on Airvo at 40 L with an FiO2 of 40%. Current pulse ox 91 to 92%. At the same time, the patient is undergoing hemodialysis with a goal of ultrafiltration of around 2.5 L. He remains on a combination of Zosyn and daptomycin. The patient had a MRSA he will infection and ID is on the case. The patient is awake and alert and communicating. Remains on DuoNeb nebulized treatments [id number]. Remains on IV Solu-Medrol 40 mg every 12 hours. Rest of the medications are essentially unchanged. Most recent chest x-ray from 06/16/2024 was reviewed and shows multifocal airspace opacities. The patient had a previous echocardiogram done on 05/29/2024 indicating a preserved LV function with an ejection fraction of 55 to 60%. No significant valvular abnormalities. Comorbidities include coronary artery disease with previous PCI and stenting, chronic kidney disease, currently on hemodialysis, diabetes mellitus type 2, chronic right heel wound, ulcerative colitis and the patient has a colectomy and diverting ileostomy along with hypertension hyperlipidemia. 06/18/2024, the patient is feeling better and less short of breath. Noted the patient was taken off the Airvo and the patient is currently in 70s of oxygen by nasal cannula. His oxygenation improved post hemodialysis yesterday it was performed with a total of 3 L of ultrafiltration. The repeat chest x-ray from today also shows improvement in the multifocal airspace opacities that was seen on previous examinations. The patient is producing minimal amount of urine output. Remains on Zosyn. Remains on daptomycin. Rest of the medications are essentially unchanged. No blood work from today. On today's evaluation of 06/19/2024, the patient is being seen for a follow-up. Doing well. On today's evaluation, the patient was placed back on oxygen with 11 L/min nasal cannula. He was subsequently brought up to 15 L. Chest x-ray from today is again showing increased pulmonary vascular markings and pulm vascular congestion consistent with fluid overload. This chest x-ray was done following a insertion of a right IJ permacath. Dialysis to follow. The patient is comfortable. Denies having any shortness of breath at rest. Nevertheless, is slightly more short of breath compared to yesterday. Noted the patient showed significant improvement following hemodialysis was performed yesterday. Another session of hemodialysis to be done today. Remains on DuoNeb nebulized treatments [id number]. Remains on daptomycin and Zosyn as the patient has diabetic foot infection. ID is on the case. Remains on Levemir insulin 28 un its twice daily and NovoLog sliding scale coverage. Rest of the medications remain unchanged. On today's evaluation of 06/20/2024, the patient still on 15 L of oxygen by nasal cannula. Afebrile. Hemodynamically stable. Overall respiratory status is unchanged compared to yesterday. The patient is undergoing hemodialysis. The goal of ultrafiltration is around 2 L. No other complaints otherwise for now. Remains on daptomycin and Zosyn. Remains on DuoNeb nebulized treatments [id number]. Rest of the medications are essentially unchanged he denies having any chest pain. No nausea. No emesis. No other significant events overnight. Objective - Vital Signs Vital signs: Vital Signs Temp 97.4 F L 06/20/24 07:49 Pulse 95 06/20/24 06:02 Resp 16 06/20/24 08:56 BP 123/57 06/20/24 07:49 Pulse Ox 95 06/20/24 07:49 FiO2 80 06/19/24 07:36 Intake & Output 06/19/24 06/20/24 06/20/24 18:59 06:59 18:59 Intake Total 595 500 Output Total 6400 Balance 595 -5900 Weight 67.5 kg Intake: IV 100 Piperacillin-Tazobactam 3 100 .375 gm In Sodium Chloride 0.9% 100 ml @ 25 mls/hr IVPB Q12HR [facility] Rx #:[id number] Oral 595 Hemodialysis 400 Output: Hemodialysis 3400 Hemodialysis Net Amount 3000 Other: Voiding Method Urinal Urinal # Bowel Movements 1 - Exam GENERAL EXAM: Awake, alert 73-year-old obese male, on 11/15 L of oxygen nasal cannula HEAD: Normocephalic and atraumatic EYES: Normal reaction of pupils, equal size. NOSE: Clear with pink turbinates. THROAT: No erythema or exudates. NECK: No masses, no JVD. CHEST: No chest wall deformity. LUNGS: Equal air entry with diminished lung sounds throughout. Crackles in the bilateral bases. CVS: S1 and S2 normal with no audible murmur, regular rhythm. No extra heart sounds ABDOMEN: No hepatosplenomegaly, active bowel sounds, no guarding or rigidity. Functional ileostomy SPINE: No scoliosis or deformity SKIN: Generalized erythemic plaques involving upper extremities, chest, back CENTRAL NERVOUS SYSTEM: No focal deficits, tone is normal in all 4 extremities. EXTREMITIES: Right foot is wrapped with a bandage. There is 1-2+ peripheral edema. Peripheral pulses are intact. - Labs CBC & Chem 7: 06/16/24 04:52 06/16/24 04:52 Labs: Abnormal Lab Results - Last 24 Hours (Table) 06/19/24 06/19/24 06/20/24 Range/Units 11:37 16:36 00:00 POC Glucose (mg/dL) 128 H 133 H 221 H (70-110) mg/dL 06/20/24 Range/Units 06:02 POC Glucose (mg/dL) 173 H (70-110) mg/dL Assessment and Plan Plan: Acute exacerbation of diastolic congestive heart failure versus interstitial edema secondary to chronic kidney disease and renal failure. Bilateral pneumonia cannot be completely excluded. The patient's oxygenation is improved and the patient is currently on 15 L of oxygen by nasal cannula. The patient had a follow-up chest x-ray that showed increased vascular markings secondary to volume overload. He will benefit from dialysis and the patient is undergoing hemodialysis today with a goal of 2 L of ultrafiltration. Acute hypoxic respiratory failure, oxygenation is stable on 15 L of oxygen nasal cannula. The patient is currently off the Airvo. Acute on chronic kidney disease now requiring renal replacement therapy that started June 10, 2024, underwent dialysis via permacath in the right IJ Hyperkalemia, improved Acute on chronic anemia secondary to above History of CAD with previous PCI Diabetes mellitus type II Hypertension Hyperlipidemia Chronic cephalgia History of UC with previous colectomy and ileostomy History of prostate cancer status post chemoradiation Chronic right heel wound, status post debridement on 05/28/2024 again today June 14, 2024 Obesity, with a BMI of 38.8 kg/m Never tobacco smoker Plan: Titrate FiO2 to maintain saturation above 90% Continue high flow oxygen at 15 L no nasal cannula Hemodialysis to be continued by nephrology. The patient has a permacath in the right IJ. Repeat chest x-ray from 06/19/2024 shows pulm vascular congestion and volume overload Anticipate improvement in his respiratory status and oxygenation with dialysis and ultrafiltration Continue bronchodilators Obtain a follow-up chest x-ray in a.m. Continue daptomycin and Zosyn Heparin for DVT prophylaxis Protonix for GI prophylaxis We will continue to follow
[2024-06-20 20:29] LABS: Glucose,Whole Blood 227 mg/dL (70-110)
[2024-06-20] MEDS: INSULIN GLARGINE (LANTUS) 100 UNIT/ML SYR SQ SCH (21:20)
[2024-06-20] MEDS: ZINC OXIDE PASTE (Z-GUARD) 1 APPLIC TOPICAL SCH (21:21)
[2024-06-21 00:37] LABS: Glucose,Whole Blood 185 mg/dL (70-110)
[2024-06-21 06:10] LABS: Glucose,Whole Blood 146 mg/dL (70-110)
[2024-06-21 07:45] LABS: ALT 30 U/L (4-49); African American GFR (CKD) 20 (>60 ml/min/1.73 sqM); Albumin 3.4 g/dL (3.5-5.0); Anion Gap 15 mmol/L; Blood Urea Nitrogen 45 mg/dL (9-20); Calcium 8.7 mg/dL (8.4-10.2); Carbon Dioxide 22 mmol/L (22-30); Chloride 97 mmol/L (98-107); Glucose 120 mg/dL (74-99); Non-African American GFR(CKD) 17 (>60 ml/min/1.73 sqM); Sodium 134 mmol/L (137-145); Total Bilirubin 1.1 mg/dL (0.2-1.3); Total Protein 6.8 g/dL (6.3-8.2)
[2024-06-21 07:53] LABS: Anisocytosis Slight; Basophils # (A) 0.1 k/uL (0-0.2); Basophils % (A) 0 %; Eosinophils # (A) 0.2 k/uL (0-0.7); Eosinophils % (A) 1 %; HCT 37.9 % (39.0-53.0); HGB 11.6 gm/dL (13.0-17.5); Hypochromasia Marked; Lymphocytes # (A) 0.4 k/uL (1.0-4.8); Lymphocytes % (A) 2 %; MCH 30.5 pg (25.0-35.0); MCHC 30.5 g/dL (31.0-37.0); Macrocytosis Slight; Mean Platelet Volume 12.9; Monocytes # (A) 0.4 k/uL (0-1.0); Monocytes % (A) 2 %; Neutrophils # (A) 18.9 k/uL (1.3-7.7); Neutrophils % (A) 95 %; Platelet Count 150 k/uL (150-450); RBC 3.79 m/uL (4.30-5.90); RDW 17.5 % (11.5-15.5)
[2024-06-21 07:57] LABS: AST 32 U/L (17-59); Potassium 5.3 mmol/L (3.5-5.1)
[2024-06-21 07:58] LABS: Alkaline Phosphatase 157 U/L (38-126)
--- NOTE | 2024-06-21 08:05 | XR ---
EXAMINATION TYPE: XR chest 1V DATE OF EXAM: 06/21/2024 6:54 AM COMPARISON: Multiple radiographs, with the most recent on 06/19/2024 TECHNIQUE: XR chest 1V Portable AP radiograph of the chest. CLINICAL INDICATION:Male, 73 years old with history of Hypoxic respiratory failure; FINDINGS: Lungs/Pleura: Similar scattered airspace opacities. Blunting of both costophrenic angles. No pneumoth orax. Heart/mediastinum: Cardiomediastinal silhouette is enlarged and stable. Musculoskeletal: No acute osseous pathology. Other findings: None Lines/Tubes: Right IJ approach dialysis catheter with distal tip terminating in the right atrium. IMPRESSION: Similar scattered airspace opacities with small bilateral pleural effusions. Correlate for CHF exacer bation/volume overload. Superimposed infectious process is not excluded. [facility], , 06/21/2024 8:03 AM
--- NOTE | 2024-06-21 11:11 | P.PN ---
Subjective Patient is seen for follow-up for chronic kidney disease and acute kidney injury. Started hemodialysis on 06/10/2024 No significant complaints today. Patient is comfortable. No significant urine output noted. Maintained on 15 L of oxygen via nasal cannula. UF close to 1 L yesterday with hemodialysis. Objective - Vital Signs Vital signs: Vital Signs Temp 97.7 F 06/21/24 10:47 Pulse 78 06/21/24 10:47 Resp 18 06/21/24 10:47 BP 124/58 06/21/24 10:47 Pulse Ox 88 L 06/21/24 10:47 FiO2 80 06/19/24 07:36 Intake & Output 06/20/24 06/21/24 06/21/24 18:59 06:59 18:59 Intake Total 1430 Output Total 2462 400 Balance -1032 -400 Weight 67.5 kg 67.5 kg Intake: IV 50 DAPTOmycin 350 mg In 50 Sodium Chloride 0.9% 50 ml @ 100 mls/hr IVPB Q48H [facility] Rx#:[id number] Intake, IV Titration 80 Amount IV Fluid Continuation 450 80 ml @ 0 mls/hr IV .[facility] Rx#:[id number] Oral 800 Hemodialysis 500 Output: Urine 200 Stool 200 Hemodialysis 1481 Hemodialysis Net Amount 981 Other: Voiding Method Urinal Urinal # Bowel Movements 1 - Exam Patient is awake, comfortable, no acute distress Examination of the heart S1 and S2 Examination of the lungs bilateral breath sounds are heard Abdomen is soft nontender Examination of lower extremities shows trace edema PART[employer] NOT[employer]ER exam grossly intact - Labs CBC & Chem 7: 06/21/24 05:42 06/21/24 05:42 Labs: Abnormal Lab Results - Last 24 Hours (Table) 06/20/24 06/20/24 06/20/24 Range/Units 12:07 16:05 20:28 WBC (3.8-10.6) k/uL RBC (4.30-5.90) m/uL Hgb (13.0-17.5) gm/dL Hct (39.0-53.0) % MCHC (31.0-37.0) g/dL RDW (11.5-15.5) % Neutrophils # (1.3-7.7) k/uL Lymphocytes # (1.0-4.8) k/uL Sodium (137-145) mmol/L Potassium (3.5-5.1) mmol/L Chloride (98-107) mmol/L BUN (9-20) mg/dL Creatinine (0.66-1.25) mg/dL Glucose (74-99) mg/dL POC Glucose (mg/dL) 148 H 288 H 227 H (70-110) mg/dL Alkaline Phosphatase (38-126) U/L Albumin (3.5-5.0) g/dL 06/21/24 06/21/24 06/21/24 Range/Units 00:35 05:42 05:42 WBC 20.0 H (3.8-10.6) k/uL RBC 3.79 L (4.30-5.90) m/uL Hgb 11.6 L (13.0-17.5) gm/dL Hct 37.9 L (39.0-53.0) % MCHC 30.5 L (31.0-37.0) g/dL RDW 17.5 H (11.5-15.5) % Neutrophils # 18.9 H (1.3-7.7) k/uL Lymphocytes # 0.4 L (1.0-4.8) k/uL Sodium 134 L (137-145) mmol/L Potassium 5.3 H (3.5-5.1) mmol/L Chloride 97 L (98-107) mmol/L BUN 45 H (9-20) mg/dL Creatinine 3.36 H (0.66-1.25) mg/dL Glucose 120 H (74-99) mg/dL POC Glucose (mg/dL) 185 H (70-110) mg/dL Alkaline Phosphatase 157 H (38-126) U/L Albumin 3.4 L (3.5-5.0) g/dL 06/21/24 Range/Units 06:07 WBC (3.8-10.6) k/uL RBC (4.30-5.90) m/uL Hgb (13.0-17.5) gm/dL Hct (39.0-53.0) % MCHC (31.0-37.0) g/dL RDW (11.5-15.5) % Neutrophils # (1.3-7.7) k/uL Lymphocytes # (1.0-4.8) k/uL Sodium (137-145) mmol/L Potassium (3.5-5.1) mmol/L Chloride (98-107) mmol/L BUN (9-20) mg/dL Creatinine (0.66-1.25) mg/dL Glucose (74-99) mg/dL POC Glucose (mg/dL) 146 H (70-110) mg/dL Alkaline Phosphatase (38-126) U/L Albumin (3.5-5.0) g/dL Assessment and Plan Assessment: 1. Acute kidney injury, nonoliguric, cardiorenal. UA is benign and ultrasound does not show any evidence of hydronephrosis. Started hemodialysis on 06/10/2024 for significant oliguric acute kidney injury. 2. Acute on chronic diastolic CHF 3. Volume overload 4. Hypertension with CKD stage IV 5. Acute hypoxic respiratory failure secondary to CHF 6. Coronary artery disease with history of coronary stents 7. Metabolic acidosis maintained on oral sodium bicarb. 8. Right heel wound status post debridement Plan: Hemodialysis in am. Increase UF as tolerated. Encouraged increased oral intake.
[2024-06-21 11:40] LABS: Glucose,Whole Blood 208 mg/dL (70-110)
--- NOTE | 2024-06-21 13:03 | P.PN ---
Subjective Progress Note Date: 06/21/24 Principal diagnosis: Reason for follow-up is right heel diabetic foot ulcer with MRSA infection Patient is a 73-year-old male with a past medical history significant for diabetes mellitus hypertension hyperlipidemia osteomyelitis patient has been dealing with a chronic nonhealing wound to the right heel area for months now and is being treated in outpatient setting by Dr. 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 On today's evaluation that is 06/21/2024, the patient continues to be afebrile, the patient is still requiring 15 L high flow nasal oxygen however denies any worsening shortness of breath no chest pain or significant cough no nausea vomiting no abdominal pain or diarrhea. Patient white count is up to 20,000, creatinine 3.36 Objective - Vital Signs Vital signs: Vital Signs Temp 97.7 F 06/21/24 10:47 Pulse 80 06/21/24 12:15 Resp 18 06/21/24 10:47 BP 124/58 06/21/24 10:47 Pulse Ox 88 L 06/21/24 10:47 FiO2 80 06/19/24 07:36 Intake & Output 06/20/24 06/21/24 06/21/24 18:59 06:59 18:59 Intake Total 1430 Output Total 2462 400 100 Balance -1032 -400 -100 Weight 67.5 kg 67.5 kg Intake: IV 50 DAPTOmycin 350 mg In 50 Sodium Chloride 0.9% 50 ml @ 100 mls/hr IVPB Q48H [facility] Rx#:[id number] Intake, IV Titration 80 Amount IV Fluid Continuation 450 80 ml @ 0 mls/hr IV .K- [facility] Rx#:[id number] Oral 800 Hemodialysis 500 Output: Urine 200 Stool 200 100 Hemodialysis 1481 Hemodialysis Net Amount 981 Other: Voiding Method Urinal Urinal # Bowel Movements 1 - Exam GENERAL DESCRIPTION: An elderly male lying in bed in no distress RESPIRATORY SYSTEM: Unlabored breathing , decreased breath sounds at bases HEART: S1 S2 regular rate and rhythm , ABDOMEN: Soft , no tenderness EXTREMITIES: Right hand wound is currently dressed - Labs CBC & Chem 7: 06/21/24 05:42 06/21/24 05:42 Labs: Abnormal Lab Results - Last 24 Hours (Table) 06/20/24 06/20/24 06/21/24 Range/Units 16:05 20:28 00:35 WBC (3.8-10.6) k/uL RBC (4.30-5.90) m/uL Hgb (13.0-17.5) gm/dL Hct (39.0-53.0) % MCHC (31.0-37.0) g/dL RDW (11.5-15.5) % Neutrophils # (1.3-7.7) k/uL Lymphocytes # (1.0-4.8) k/uL Sodium (137-145) mmol/L Potassium (3.5-5.1) mmol/L Chloride (98-107) mmol/L BUN (9-20) mg/dL Creatinine (0.66-1.25) mg/dL Glucose (74-99) mg/dL POC Glucose (mg/dL) 288 H 227 H 185 H (70-110) mg/dL Alkaline Phosphatase (38-126) U/L Albumin (3.5-5.0) g/dL 06/21/24 06/21/24 06/21/24 Range/Units 05:42 05:42 06:07 WBC 20.0 H (3.8-10.6) k/uL RBC 3.79 L (4.30-5.90) m/uL Hgb 11.6 L (13.0-17.5) gm/dL Hct 37.9 L (39.0-53.0) % MCHC 30.5 L (31.0-37.0) g/dL RDW 17.5 H (11.5-15.5) % Neutrophils # 18.9 H (1.3-7.7) k/uL Lymphocytes # 0.4 L (1.0-4.8) k/uL Sodium 134 L (137-145) mmol/L Potassium 5.3 H (3.5-5.1) mmol/L Chloride 97 L (98-107) mmol/L BUN 45 H (9-20) mg/dL Creatinine 3.36 H (0.66-1.25) mg/dL Glucose 120 H (74-99) mg/dL POC Glucose (mg/dL) 146 H (70-110) mg/dL Alkaline Phosphatase 157 H (38-126) U/L Albumin 3.4 L (3.5-5.0) g/dL 06/21/24 Range/Units 11:39 WBC (3.8-10.6) k/uL RBC (4.30-5.90) m/uL Hgb (13.0-17.5) gm/dL Hct (39.0-53.0) % MCHC (31.0-37.0) g/dL RDW (11.5-15.5) % Neutrophils # (1.3-7.7) k/uL Lymphocytes # (1.0-4.8) k/uL Sodium (137-145) mmol/L Potassium (3.5-5.1) mmol/L Chloride (98-107) mmol/L BUN (9-20) mg/dL Creatinine (0.66-1.25) mg/dL Glucose (74-99) mg/dL POC Glucose (mg/dL) 208 H (70-110) mg/dL Alkaline Phosphatase (38-126) U/L Albumin (3.5-5.0) g/dL Assessment and Plan (1) Diabetic infection of right foot Current Visit: Yes Status: Acute Code(s): E11.628 - TYPE 2 DIABETES MELLITUS WITH OTHER SKIN COMPLICATIONS; L08.9 - LOCAL INFECTION OF THE SKIN AND SUBCUTANEOUS TISSUE, UNSP SNOMED Code(s): 564522235 (2) MRSA (methicillin resistant staph aureus) culture positive Current Visit: Yes Status: Acute Code(s): Z22.322 - CARRIER OR SUSPECTED CARRIER OF METHICILLIN RESIS STAPH SNOMED Code(s): 340092033 (3) Diabetic ulcer of right foot Current Visit: No Status: Acute Code(s): E11.621 - TYPE 2 DIABETES MELLITUS WITH FOOT ULCER; L97.519 - NON-PRS CHRONIC ULCER OTH PRT RIGHT FOOT W UNSP SEVERITY SNOMED Code(s): 738551737 (4) Stage III pressure ulcer of right heel Current Visit: No Status: Acute Code(s): L89.613 - PRESSURE ULCER OF RIGHT HEEL, STAGE 3 SNOMED Code(s): 85776717673629 Plan: 1patient with a chronic nonhealing wound to the right heel which he has for co uple of months the wound looks deep with a recent culture positive for Proteus and MRSA concerning for wound infection and question for possible deeper infection such as osteomyelitis as wound has been there for couple of months now 2- x-rays of the right heel with no evidence of any bony changes 3-patient has been evaluated by Dr. Carpenter and did have surgical debridement completed on 06/07/2024 and did have a further debridement at the bedside by his on air host on 06/14/2024 4-patient still have necrotic wound to the right heel he may benefit from further surgical debridement for now continue with the Santyl 5patient did have examined the white count possibly medication effect will be monitored closely and continue with Zosyn and daptomycin while inpatient Dictation was produced using [employer] dictation software. please excuse any grammatical, word or spelling errors. Time with Patient: Less than 30
--- NOTE | 2024-06-21 13:28 | P.PN ---
Progress Note - Text Progress Note Date: 06/21/24 Chief Complaint: Short of breath Pleasant 73-year-old patient follows with Dr. Dennis. 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 Bales. April 26, [address] Bales: Following a non-ST relation DC: Patent stent to mid LAD. Late stent thrombosis of the second diagonal branch of the LAD. Severe disease involving the OM1 appears unchanged. Attempted balloon angioplasty performed to the second of diagonal branch with suboptimal results. Dose of Imdur was increased and Ranexa was added. Patient recently in the hospital from May 28 through May 31. Chronic headaches: MRI unremarkable. MR angio head and neck: MR angio head without contrast: No evidence of aneurysm or significant stenosis. Atrophic right A1 segment. origin of the right posterior cerebral artery.MRI of the brain nonspecific. Was seen by neurology Dr. Gay. Patient to follow-up outpatient Chronic right heel wound seen by Dr. Carpenter from vascular deep debridement was carried out. No need for antibiotics. Patient to follow-up with Dr. Jernigan at the wound center. Shortness of breath: Was seen by cardiology. Not for any further intervention. Patient doing well when discharged. Patient presented increased shortness of breath when at home. His pulse ox dropped out of the 80s. Increasing shortness of breath. Decreased appetite. No fever or chills. June 10: Using his BiPAP. Patient seen this morning. Later this afternoon. Right femoral vein dialysis catheter was placed by Dr. Carpenter from vascular for dialysis. Baseline some shortness of breath. Due for first dialysis today. Patient is right heel culture grew MRSA Proteus P Corynebacterium on May 29. Patient is on IV daptomycin and IV cefepime per ID. June 11: Patient seen this afternoon. On BiPAP. Getting hemodialysis. Remains on IV daptomycin IV Zosyn. Tired. Also getting IV iron. Patient really did not eat today. Because of BiPAP. Cut back Levemir to 26 units at night. DC scheduled NovoLog for now. June 12: Overflowing the ICU. Remains on BiPAP. 04/05/90%. at the bedside. Remains on IV daptomycin and IV Zosyn. For dialysis today. X-ray continues shows infiltrates. Significantly hypoxic. N.p.o. June 13: ICU. Remains on BiPAP. 12/6/90% moderate take anything by mouth. Spoke to the nurse have TPN lipids ordered. Remains on IV daptomycin IV Zosyn. Chest x-ray continues to show diffuse infiltrates. Continues to be followed by cardiology pulmonary ID nephrology. June 14: ICU. Later this afternoon patient was put on Airvo. 60/60. Has some delirium. Remains on IV daptomycin and IV Zosyn. Had 2 L ultrafiltration yesterday. Patient getting daily dialysis for now. As patient is oliguric per nephrology Lasix has been held. TPN was ordered yesterday per the nurse culture that returned to feed the patient. Will see how that goes. Dietitian on the case. June 15: ICU. Patient be getting hypotensive. Some medications held back by cardiology. Hemodialysis done today. Patient remains on Airvo though at 50/50. at the bedside. Plans this afternoon to get him up in the chair. Remains on daptomycin and IV Zosyn. IV Lasix been discontinued. Patient tolerating some liquid diet. June 16: Patient moved to the ICU. Remains on Airvo. 45/45. at the bedside. Tolerating full liquids. Spoke to the about the morphine. His headaches are chronic. Use Fioricet as needed. Remains on IV daptomycin and IV Zosyn. IV Solu-Medrol. Amlodipine dose cut back. PT OT. June 17: On 3 S., telemetry floor. Getting hemodialysis today. Remains on IV daptomycin IV Zosyn. On full liquid diet. Advance to ground diet. Minimal urine output. DC fluid restriction. Awake communicating. Accu-Cheks running high. Increase Levemir to 28 units subcu twice daily. Seen by PT OT. Maximum assist. On Airvo 40/40. Cut back Solu-Medrol to every 12. June 18: On a recliner. 7 L nasal cannula. Decreased appetite. at the bedside. Accu-Chek in 200s. IJ PermCath placement pending. Encourage oral intake. Ordered incentive spirometry June 19: Patient was on 7 L nasal cannula yesterday. Patient back on Airvo today. 40 L. Due for hemodialysis today. Had perm dialysis catheter placed right IJ by Dr. Carpenter today. Minimal intake today. Discussed with at the bedside. June 20: Recliner. High flow 15 L nasal cannula. at the bedside. Decreased oral intake.Tired. Hemodialysis today. June 21: Still decreased appetite. Remains on high flow 15 l nasal cannula. Remains on IV daptomycin IV Zosyn per ID. Being followed by multiple con sultants spoke to the patient and . Encourage oral intake. Active Medications Acetaminophen (Acetaminophen Tab 325 Mg Tab) 650 mg PO Q6HR PRN PRN Reason: Mild Pain or Fever > 100.5 Last Admin: 06/20/24 18:52 Dose: 650 mg Acetaminophen/Butalbital/Caffeine (Butalb/Apap/Caff 50-325-40mg Tab) 1 each PO Q4H PRN PRN Reason: Migraine Headache Albuterol/Ipratropium (Ipratropium-Albuterol 3 Ml Neb) 3 ml INHALATION RT-QID [facility] Last Admin: 06/21/24 12:08 Dose: 3 ml Albuterol/Ipratropium (Ipratropium-Albuterol 3 Ml Neb) 3 ml INHALATION RT-QID PRN PRN Reason: Shortness Of Breath Or Wheezing Allopurinol (Allopurinol 100 Mg Tab) 100 mg PO DAILY [facility] Last Admin: 06/21/24 09:39 Dose: 100 mg Amlodipine Besylate (Amlodipine 5 Mg Tab) 5 mg PO DAILY [facility] Last Admin: 06/21/24 09:39 Dose: 5 mg Aspirin (Aspirin 81 Mg) 81 mg PO DAILY [facility] Last Admin: 06/21/24 09:37 Dose: 81 mg Atorvastatin Calcium (Atorvastatin 40 Mg Tab) 40 mg PO DAILY [facility] Last Admin: 06/21/24 09:36 Dose: 40 mg Budesonide (Budesonide 1 Mg/2 Ml Nebu) 1 mg INHALATION RT-BID [facility] Last Admin: 06/21/24 08:59 Dose: 1 mg Calcitriol (Calcitriol 0.25 Mcg Cap) 0.25 mcg PO Mo@0900 [facility] Last Admin: 06/17/24 11:37 Dose: 0.25 mcg Clopidogrel Bisulfate (Clopidogrel 75 Mg Tab) 75 mg PO DAILY [facility] Last Admin: 06/21/24 09:39 Dose: 75 mg Collagenase (Collagenase 250 Unit/Gm Ointment 30 Gm Tube) 1 applic TOPICAL DAILY [facility]; Protocol Last Admin: 06/21/24 09:40 Dose: 1 applic Darbepoetin Silverio (Darbepoetin Silverio 40 Mcg/0.4 Ml Syringe) 40 mcg SQ Q7D [facility] Last Admin: 06/19/24 11:41 Dose: 40 mcg Dextrose/Water (Dextrose 50% Syringe 50 Ml) 25 ml IVP PER PROTOCOL PRN; Protocol PRN Reason: Hypoglycemia Dextrose/Water (Dextrose 50% Syringe 50 Ml) 50 ml IVP PER PROTOCOL PRN; Protocol PRN Reason: Hypoglycemia Ergocalciferol (Ergocalciferol 1,250 Mcg (50,000 Iu) Capsule) 1,250 mcg PO Q14D [facility] Last Admin: 06/19/24 11:40 Dose: 1,250 mcg Escitalopram Oxalate (Escitalopram 10 Mg Tab) 10 mg PO DAILY [facility] Last Admin: 06/21/24 09:39 Dose: 10 mg Gabapentin (Gabapentin 100 Mg Cap) 100 mg PO HS [facility] Last Admin: 06/20/24 21:21 Dose: 100 mg Haloperidol Lactate (Haloperidol Lactate 5 Mg/Ml 1 Ml Vial) 5 mg IVP ONCE PRN PRN Reason: Agitation or Acute Psychosis Last Admin: 06/14/24 23:51 Dose: 5 mg Haloperidol Lactate (Haloperidol Lactate 5 Mg/Ml 1 Ml Vial) 5 mg IVP Q8HR PRN PRN Reason: Agitation or Acute Psychosis Last Admin: 06/13/24 03:01 Dose: 5 mg Heparin Sodium (Porcine) (Heparin Sodium,Porcine 5,000 Unit/Ml 1 Ml Vial) 5,000 unit SQ Q8HR [facility] Last Admin: 06/21/24 09:39 Dose: 5,000 unit Hydralazine HCl (Hydralazine Hcl 25 Mg Tab) 25 mg PO TID JOSÉ Last Admin: 06/21/24 09:39 Dose: 25 mg Daptomycin 350 mg/ Sodium (Chloride) 50 mls @ 100 mls/hr IVPB Q48H [facility]; Protocol Last Admin: 06/20/24 12:44 Dose: 100 mls/hr Piperacillin Sod/Tazobactam (Sod 3.375 gm/ Sodium Chloride) 100 mls @ 25 mls/hr IVPB Q12HR [facility]; Protocol Last Admin: 06/21/24 09:38 Dose: 25 mls/hr Insulin Aspart (Insulin Aspart (Novolog) 100 Unit/Ml Vial) 0 unit SQ Q6HR [facility]; Protocol Last Admin: 06/21/24 11:50 Dose: 4 unit Insulin Glargine (Insulin Glargine (Lantus) 100 Unit/Ml Syr) 28 unit SQ BID@0700,2100 [facility] Last Admin: 06/21/24 06:31 Dose: 28 unit Isosorbide Mononitrate (Isosorbide Mononitrate Er 60 Mg Tab.Er.24h) 60 mg PO DAILY [facility] Last Admin: 06/21/24 09:39 Dose: 60 mg Metoprolol Succinate (Metoprolol Succinate (Er) 25 Mg Tab.Er.24h) 25 mg PO DAILY [facility] Last Admin: 06/21/24 09:37 Dose: 25 mg Naloxone HCl (Naloxone 0.4 Mg/Ml 1 Ml Vial) 0.2 mg IV Q2M PRN PRN Reason: Opioid Reversal Collagenase 250 Unit /Gm Ointment 30 Gm Tube 1 each TOPICAL DAILY [facility]; Protocol Last Admin: 06/21/24 10:21 Dose: Not Given Pantoprazole Sodium (Pantoprazole 40 Mg/10 Ml Vial) 40 mg IVP DAILY [facility] Last Admin: 06/21/24 09:37 Dose: 40 mg Petrolatum (Zinc Oxide Paste (Z-Guard) 1 Applic) 1 applic TOPICAL BID [facility]; Protocol Last Admin: 06/21/24 09:48 Dose: 1 applic Ranolazine (Ranolazine 500 Mg Tab.Er.12h) 500 mg PO Q12HR [facility] Last Admin: 06/21/24 09:39 Dose: 500 mg Tamsulosin HCl (Tamsulosin 0.4 Mg Cap.Er.24h) 0.4 mg PO PC-BRKFST [facility] Last Admin: 06/21/24 09:38 Dose: 0.4 mg Triamcinolone Acetonide (Triamcinolone Acet 0.5% Cream 15 Gm Tube) 1 applic TOPICAL BID PRN; Protocol PRN Reason: rash/dry skin Social history: Non-smoking. No alcohol. On examination: VITAL SIGNS: 97.7, 78, 18, 124 x 58, 88% on 15 L high flow oxygen GENERAL APPEARANCE: In a recliner, tired HEENT: Normal external appearance of nose and ear. Oral cavity normal EYES: Pupils equal. Conjunctiva normal. NECK: JVD not raised. Mass not palpable. RESPIRATORY: Respiratory effort increased lungs decreased breath sounds with some fine crackles CARDIOVASCULAR: First and second sounds normal. Minimal edema in the right leg ABDOMEN: Soft. Liver and spleen not palpable. No tenderness. No right upper quadrant tenderness. No mass palpable. Colostomy bag with liquid stool PSYCHIATRY: Answering simple questions Extremity: Right foot in dressing INVESTIGATIONS, reviewed in the clinical context: June 21: White count 20 hemoglobin 11.6 platelets 150 sodium 134 BUN 45 creatinine 3.36 June 16: White count 12.4 hemoglobin 10.1 platelets 202 sodium 128 potassium 4.4 BUN 32 creatinine 3.11 June 15: White count 9.4 hemoglobin 9.4 platelets 2 3 potassium 4.1 bicarb 25 BUN 32 creatinine 3.14 June 14: White count 16.2 hemoglobin 9.2 platelets 236 sodium 134 potassium 4.3 BUN 68 creatinine 3.26 June 13: White count 16.5 hemoglobin 9.3 platelets 273 sodium 135 potassium 4.7 BUN 38 creatinine 3.34 June 11: Potassium 4.9 BUN 108 creatinine 4.1 June 10: White count 12.8 hemoglobin 7.9 platelets 335 sodium 135 potassium 5.2 BUN 118 creatinine 4.1 June 04: White count 10.2 hemoglobin 10.4 platelet 374 sodium 135 potassium 4.6 BUN 66 creatinine 2.71 troponin I less than 0.012 proBNP 2550 EKG tracing personally reviewed by me-atrial fibrillation. Rate 68 Chest x-ray film personally reviewed by -pulhenry edema Recent labs May 30: Potassium 4.7 BUN 42.3 creatinine 2.3 Assessment and plan: -Acute on chronic congestive heart failure exacerbation, from diastolic dysfunction EF 55 to 60%.: Better Received IV Lasix Started on dialysis June 10.- -Acute hypoxic respiratory failure from pulmonary edema: Slow to respond Initially BiPAP //90%. Then Airvo. Today high flow 15 L nasal cannula -Acute respiratory distress syndrome, multifactorial: Slowly improving On Airvo initially IV Solu-Medrol, 40 mg every 12-discontinued -COPD non-smoker DuoNeb 4 times daily. Nebulized Pulmicort -Chronic ostomy-functioning well -Chronic cephalgia. Patient stated headaches for greater than 6 months. Practically every day. Does not interfere with his eating. No exacerbating relieving factors: Possible tension headaches. CT scan of the brain shows some chronic changes MRI and MRI of the brain showing chronic changes. Seen by Dr. Gay from neurology a week ago. Further outpatient follow-up with neurology -Acute delirium/metabolic encephalopathy. Multifactorial: Better -Right heel wound. Dry. Follows with Dr. Jernigan at the wound center. Dr. Carpenter from vascular-. Deep debridement carried recently Wound culture [May 29] MRSA, Proteus IV cefepime, daptomycin per ID -Chronic parastomal hernia #Hypertension: Amlodipine. Toprol-XL. Hydralazine -Acute kidney injury, likely cardiorenal: On hemodialysis Right femoral vein dialysis catheter placed by Dr. Carpenter on June 10. Hemodialysis started June 10-Daily Right IJ PermCath placement -CKD likely nephrosclerosis, diabetic nephropathy Creatinine was 1.6 on April 28, 2024. -CAD with stent Toprol-XL -Anemia in the setting of chronic kidney disease. Iron deficiency anemia. Given IV iron -Primary osteoarthritis Pain medication as needed -History of prostate cancer with radiation and chemo in 2020. #Diabetes mellitus type II, chronically on insulin: Uncontrolled with hyperglycemia Levemir to 28 units SQ every 12 #Hyperlipidemia: Lipitor #GERD: Protonix -Full code Past Medical History Past Medical History: Cancer, Chest Pain / Angina, Diabetes Mellitus, Eye Disorder, GERD/Reflux, Hyperlipidemia, Hypertension, Osteoarthritis (OA), Prostate Disorder, Renal Disease Additional Past Medical History / Comment(s): HX OF ULCERATIVE COLITIS, ileostomy PARASTOMAL HERNIA, PROSTATE CA WITH RADIATION AND CHEMO IN 2020, LOW KIDNEY FUNCTION,Covid Dec 2022, Influenza A Jun 2023, eye condition, unsure of name. History of Any Multi-Drug Resistant Organisms: MRSA Date of last positivie culture/infection: 05/24/24 MDRO Source:: rt heel, scalp Past Surgical History: Appendectomy, Bowel Resection, Heart Catheterization, Heart Catheterization With Stent Additional Past Surgical History / Comment(s): COLECTOMY, RECTUM REMOVED, ELLIOTT CATARACTS removed, ILEOSTOMY, HERNIA SURGERY. Past Anesthesia/Blood Transfusion Reactions: No Reported Reaction Additional Past Anesthesia/Blood Transfusion Reaction / Comment(s): no problems with prior blood transfusions. Date of Last Stent Placement:: 08/01/2023 Past Psychological History: No Psychological Hx Reported Smoking Status: Never smoker Past Alcohol Use History: None Reported Past Drug Use History: None Reported
--- NOTE | 2024-06-21 15:23 | P.PN ---
Subjective Progress Note Date: 06/21/24 Patient is a 73-year-old male with past medical history significant for hypertension, hyperlipidemia, coronary artery disease with previous PCI/stenting, heart failure, chronic kidney disease, diabetes mellitus, chronic right heel wound, ulcerative colitis with previous colectomy and ileostomy. Of note, patient had a recent hospitalization late May and was just discharged 05/31/2024 for CHF exacerbation. Echocardiogram done during this hospitalization estimating a preserved left ventricular ejection fraction of 55 to 60%. Limited study, but no acute valvular abnormalities reported. Presented the emergency department on 06/04/2024 with a chief complaint of shortness of breath, mostly on exertion. Chest x-ray showing cardiomegaly, mild pulmonary vascular congestion, and a small pleural effusion on the left. NT proBNP elevated 2550. Currently receiving Lasix 80 mg twice daily. CBC: WBC count 10.2, hemoglobin 10.4, hematocrit 32.5, platelets 374. CMP: Sodium 135, potassium 4.6, chloride 101, serum bicarb 18, BUN 66, creatinine 2.71, glucose 139. Troponin is less than 0.012. Patient currently being evaluated on the general medical floor. Appears weak and deconditioned. He is resting in bed on 1 L/min nasal cannula. No respiratory distress noted. Complaining of a generalized headache, which he states is chronic. States that he has been short of breath on exertion for several months to almost 1 year. Particularly on exertion such as climbing stairs or walking to the bathroom. Denies history of COPD or asthma. Never tobacco smoker. Worked in an [employer] shop before he retired. Denies cough. Denies infectious-like symptoms. Current vital signs: Temperature 98 F, heart rate 78 bpm, blood pressure 145/54 mmHg, nontachypneic, SpO2 recorded at 91% on 1 L/min nasal cannula. The patient is seen today June 07, 2024 in follow-up on the regular medical floor. He is awake and alert in no acute distress. Sitting up at the bedside. Maintaining O2 saturations in the 90s on 3 L/min per nasal cannula. White count 9.8. Hemoglobin 8.9. Platelets 366. Sodium 140. Potassium 4.7. Bicarb 22. BUN 60. Creatinine 2.4. Glucose 97. He remains on DuoNeb and elations, Pulmicort inhalations. Lasix 80 mg IV every 12 hours. He is currently -1.1 L balance. Antibiotics in the form of cefepime and daptomycin for his diabetic ulcer of the right foot. X-ray revealed no osseous erosion or acute fracture. The patient is seen today June 08, 2024 in follow-up on the regular medical floor. He did have issues with worsening shortness of breath. He is currently on BiPAP 12/6 and 40% FiO2. White count 6.3. Hemoglobin 8.5. Platelets 357. Sodium 136. Potassium 5.8. Bicarb 21. BUN 64. Creatinine 2.4. Glucose 178. Chest x-ray continues to show evidence of congestive heart failure. He is currently on Lasix 80 mg IV every 12 hours. Continued on bronchodilators and steroids. Remains on antibiotics in the form of cefepime and daptomycin. The patient is seen today June 09, 2024 in follow-up on the regular medical floor. He is currently resting comfortably in bed. Awake and alert in no acute distress. Breathing easier today compared to yesterday. He is currently on BiPAP 12/6 and 40% FiO2. White count 10.1. Hemoglobin 8.0. Platelets 339. Sodium 136. Potassium 5.8. Bicarb 21. BUN 94. Creatinine 3.4. Glucose 234. He remains on DuoNeb and elations, Pulmicort inhalations, Solu-Medrol. Remains on IV diuretics. Remains on cefepime and daptomycin. Receiving Lokelma. The patient is seen today June 10, 2024 in follow-up on the regular medical floor. He is currently sitting up at the bedside. Awake and alert in no acute distress. He is requiring BiPAP support at 12/6 and 60% FiO2. Alternating with oxygen at 4 L/min per nasal cannula. He is continued on DuoNeb inhalations, Pulmicort inhalations, Solu-Medrol. He remains on antibiotics in the form of cefepime and daptomycin. Receiving iron supplement. Continued on IV diuretics. Continued on sodium bicarb tablets. White count 12.8. Hemoglobin 7.9. Platelets 335. Sodium 135. Potassium 5.2. Bicarb 23. BUN 118. Creatinine 4.1. Glucose 131. Plan is for placement of a hemodialysis catheter today and to receive hemodialysis today and tomorrow per nephrology. The patient is seen today June 12, 2024 in follow-up in the intensive care unit. He was transferred here last evening as his oxygen requirements increased. He is currently on BiPAP 12/6 and 90% FiO2. Arterial blood gases revealed a PaO2 of 60, pCO2 39 and a pH of 7.44. Chest x-ray continues to show diffuse bilateral airspace disease. Blood culture revealed no growth. White count 15.8. Hemoglobin 8.4. Platelets 257. Sodium 135. Potassium 4.4. Bicarb 23. BUN 90. Creatinine 3.51. Glucose 165. proBNP 7440. Procalcitonin pending. He is continued on daptomycin and Zosyn. Remains on Lasix 80 mg IV every 12 hours. Oertli in a -4 L balance. He did receive hemodialysis yesterday and again today 2 L removed each time. He is continued on DuoNeb and elations, Pulmicort inhalations. Solu-Medrol. The patient is seen today June 13, 2024 in follow-up in the intensive care unit. He remains mostly BiPAP dependent currently on 12/6 and 90% FiO2. No IV fluids. The plan is for hemodialysis again today which will be day #4 with approximately 2 L removed each time. Chest x-ray is showing evidence of acute respiratory distress syndrome. His PF ratio is 66 indicating severe ARDS. Blood culture revealed no growth. White count 16.5. Hemoglobin 9.3. Platelets 273. Sodium 135. Potassium 4.7. Bicarb 25. BUN 78. Creatinine 3.34. Glucose 211. Procalcitonin is elevated at 4.78. He remains on DuoNeb inhalations, Pulmicort inhalations, Solu-Medrol. Remains on daptomycin and Zosyn. Remains on Lasix 80 mg IV every 12 hours. Currently in a -4 L balance. Heparin for DVT prophylaxis. Protonix for GI prophylaxis. The patient is seen today June 14, 2024 in follow-up in the intensive care unit. He is awake and alert in no acute distress. He remains on BiPAP 12/6 and 60% FiO2. He is receiving hemodialysis again today with a goal of 2 to 2-1/2 L to be removed. His chest x-ray is showing improvement. Microbiology reveals no growth. He remains on Zosyn. Procalcitonin was 4.78. He has normal saline at KVO. White count 16.2. Hemoglobin 9.2. Platelets 236. Sodium 134. Potassium 4.3. Bicarb 27. BUN 68. Creatinine 3.26. Glucose 210. He remains on DuoNeb inhalations, Pulmicort inhalations, IV Solu-Medrol. He remains on daptomycin and Zosyn. He remains on Lasix 80 mg IV every 12 hours. Currently in a -7.8 L balance. Heparin for DVT prophylaxis. He did undergo debridement with surgical open necrotic tissue of the right heel for diabetic Walter grade 2 ulceration. The patient is seen today June 15, 2024 in follow-up in the intensive care unit. He is currently sitting up in bed. Awake and alert in no acute distress. He is continued on BiPAP 12/6 and 50% FiO2. He is alternating with Airvo high flow oxygen at 50 L and 60% FiO2. Chest x-ray showing improved aeration. He received hemodialysis yesterday with another 2-1/2 L removed. The plan is for hemodialysis again today. He has normal staying at [facility]. He remains on daptomycin and Zosyn. He remains on DuoNeb and elations, Pulmicort inhalations, Solu-Medrol. Heparin for DVT prophylaxis. Remains on Lasix 80 mg IV every 12 hours. White count 9.4. Hemoglobin 9.4. Platelets 203. Sodium 131. Potassium 4.1. Bicarb 25. BUN 72. Creatinine 3.14. Glucose 299. The patient is seen today June 16, 2024 in follow-up in the intensive care unit. He is currently sitting up in bed. Awake and alert in no acute distress. He is maintaining good O2 saturations in the 90s on Airvo high flow oxygen at 50 L and 50% FiO2. He has been off BiPAP for over 24 hours. He received hemodialysis yesterday with 2.5 L removed. The plan is for hemodialysis tomorrow. Chest x-ray shows similar bilateral airspace opacities. Blood culture revealed no growth. White count 12.4. Hemoglobin 10.1. Platelets 202. Sodium 128. Potassium 4.4. Bicarb 21. BUN 72. Creatinine 3.11. Glucose 330. He remains on DuoNeb inhalations, Pulmicort inhalations. Heparin for DVT prophylaxis. Remains on IV Solu-Medrol. Remains on Zosyn. 06/17/2024, the patient is being seen for a follow-up. There is a 73-year-old female patient who is being seen in follow-up regarding his hypoxic respiratory failure. On today's evaluation, the patient remains on Airvo at 40 L with an FiO2 of 40%. Current pulse ox 91 to 92%. At the same time, the patient is undergoing hemodialysis with a goal of ultrafiltration of around 2.5 L. He remains on a combination of Zosyn and daptomycin. The patient had a MRSA he will infection and ID is on the case. The patient is awake and alert and communicating. Remains on DuoNeb nebulized treatments [id number]. Remains on IV Solu-Medrol 40 mg every 12 hours. Rest of the medications are essentially unchanged. Most recent chest x-ray from 06/16/2024 was reviewed and shows multifocal airspace opacities. The patient had a previous echocardiogram done on 05/29/2024 indicating a preserved LV function with an ejection fraction of 55 to 60%. No significant valvular abnormalities. Comorbidities include coronary artery disease with previous PCI and stenting, chronic kidney disease, currently on hemodialysis, diabetes mellitus type 2, chronic right heel wound, ulcerative colitis and the patient has a colectomy and diverting ileostomy along with hypertension hyperlipidemia. 06/18/2024, the patient is feeling better and less short of breath. Noted the patient was taken off the Airvo and the patient is currently in 70s of oxygen by nasal cannula. His oxygenation improved post hemodialysis yesterday it was performed with a total of 3 L of ultrafiltration. The repeat chest x-ray from today also shows improvement in the multifocal airspace opacities that was seen on previous examinations. The patient is producing minimal amount of urine output. Remains on Zosyn. Remains on daptomycin. Rest of the medications are essentially unchanged. No blood work from today. On today's evaluation of 06/19/2024, the patient is being seen for a follow-up. Doing well. On today's evaluation, the patient was placed back on oxygen with 11 L/min nasal cannula. He was subsequently brought up to 15 L. Chest x-ray from today is again showing increased pulmonary vascular markings and pulm vascular congestion consistent with fluid overload. This chest x-ray was done following a insertion of a right IJ permacath. Dialysis to follow. The patient is comfortable. Denies having any shortness of breath at rest. Nevertheless, is slightly more short of breath compared to yesterday. Noted the patient showed significant improvement following hemodialysis was performed yesterday. Another session of hemodialysis to be done today. Remains on DuoNeb nebulized treatments [id number]. Remains on daptomycin and Zosyn as the patient has diabetic foot infection. ID is on the case. Remains on Levemir insulin 28 un its twice daily and NovoLog sliding scale coverage. Rest of the medications remain unchanged. On today's evaluation of 06/20/2024, the patient still on 15 L of oxygen by nasal cannula. Afebrile. Hemodynamically stable. Overall respiratory status is unchanged compared to yesterday. The patient is undergoing hemodialysis. The goal of ultrafiltration is around 2 L. No other complaints otherwise for now. Remains on daptomycin and Zosyn. Remains on DuoNeb nebulized treatments [id number]. Rest of the medications are essentially unchanged he denies having any chest pain. No nausea. No emesis. No other significant events overnight. On 06/21/2024, the patient is being seen for a follow-up. Remains on 15 L of oxygen by nasal cannula. Underwent hemodialysis yesterday and there is no considerable improvement in the patient's oxygenation. At the same time, the follow-up chest x-ray that was done today showed airspace opacities and bilateral pleural effusions. Although CHF and volume overload is highly suspected. Nevertheless, the response to d dialysis has been suboptimal for now. The patient is comfortable. He is feeling a bit weak. He has a right IJ permacath in place. He remains on a combination of Zosyn and daptomycin for a wound infection and ID is on the case. Urine output is minimal at this point in time. Remains on bronchodilators. Rest of the medications remain unchanged. The white cell count of 20 with a hemoglobin of 11.6 and a platelet count of 150. BUN is 45 with a creatinine of 3.3 and a sodium levels at 134 and potassium level is at 5.3. No other significant events overnight. Discussed the case with the medical team. Objective - Vital Signs Vital signs: Vital Signs Temp 97.7 F 06/21/24 10:47 Pulse 80 06/21/24 12:09 Resp 18 06/21/24 10:47 BP 124/58 06/21/24 10:47 Pulse Ox 88 L 06/21/24 10:47 FiO2 80 02/19/25 07:36 Intake & Output 06/20/24 06/21/24 06/21/24 18:59 06:59 18:59 Intake Total 1430 Output Total 2462 400 100 Balance -1032 -400 -100 Weight 67.5 kg 67.5 kg Intake: IV 50 DAPTOmycin 350 mg In 50 Sodium Chloride 0.9% 50 ml @ 100 mls/hr IVPB Q48H [facility] Rx#:[id number] Intake, IV Titration 80 Amount IV Fluid Continuation 450 80 ml @ 0 mls/hr IV .STK- [facility] Rx#:[id number] Oral 800 Hemodialysis 500 Output: Urine 200 Stool 200 100 Hemodialysis 1481 Hemodialysis Net Amount 981 Other: Voiding Method Urinal Urinal # Bowel Movements 1 - Exam GENERAL EXAM: Awake, alert 73-year-old obese male, on 11/15 L of oxygen nasal cannula HEAD: Normocephalic and atraumatic EYES: Normal reaction of pupils, equal size. NOSE: Clear with pink turbinates. THROAT: No erythema or exudates. NECK: No masses, no JVD. CHEST: No chest wall deformity. LUNGS: Equal air entry with diminished lung sounds throughout. Crackles in the bilateral bases. CVS: S1 and S2 normal with no audible murmur, regular rhythm. No extra heart sounds ABDOMEN: No hepatosplenomegaly, active bowel sounds, no guarding or rigidity. Functional ileostomy SPINE: No scoliosis or deformity SKIN: Generalized erythemic plaques involving upper extremities, chest, back CENTRAL NERVOUS SYSTEM: No focal deficits, tone is normal in all 4 extremities. EXTREMITIES: Right foot is wrapped with a bandage. There is 1-2+ peripheral edema. Peripheral pulses are intact. - Labs CBC & Chem 7: 06/21/24 05:42 06/21/24 05:42 Labs: Abnormal Lab Results - Last 24 Hours (Table) 06/20/24 06/20/24 06/21/24 Range/Units 16:05 20:28 00:35 WBC (3.8-10.6) k/uL RBC (4.30-5.90) m/uL Hgb (13.0-17.5) gm/dL Hct (39.0-53.0) % MCHC (31.0-37.0) g/dL RDW (11.5-15.5) % Neutrophils # (1.3-7.7) k/uL Lymphocytes # (1.0-4.8) k/uL Sodium (137-145) mmol/L Potassium (3.5-5.1) mmol/L Chloride (98-107) mmol/L BUN (9-20) mg/dL Creatinine (0.66-1.25) mg/dL Glucose (74-99) mg/dL POC Glucose (mg/dL) 288 H 227 H 185 H (70-110) mg/dL Alkaline Phosphatase (38-126) U/L Albumin (3.5-5.0) g/dL 06/21/24 06/21/24 06/21/24 Range/Units 05:42 05:42 06:07 WBC 20.0 H (3.8-10.6) k/uL RBC 3.79 L (4.30-5.90) m/uL Hgb 11.6 L (13.0-17.5) gm/dL Hct 37.9 L (39.0-53.0) % MCHC 30.5 L (31.0-37.0) g/dL RDW 17.5 H (11.5-15.5) % Neutrophils # 18.9 H (1.3-7.7) k/uL Lymphocytes # 0.4 L (1.0-4.8) k/uL Sodium 134 L (137-145) mmol/L Potassium 5.3 H (3.5-5.1) mmol/L Chloride 97 L (98-107) mmol/L BUN 45 H (9-20) mg/dL Creatinine 3.36 H (0.66-1.25) mg/dL Glucose 120 H (74-99) mg/dL POC Glucose (mg/dL) 146 H (70-110) mg/dL Alkaline Phosphatase 157 H (38-126) U/L Albumin 3.4 L (3.5-5.0) g/dL 06/21/24 Range/Units 11:39 WBC (3.8-10.6) k/uL RBC (4.30-5.90) m/uL Hgb (13.0-17.5) gm/dL Hct (39.0-53.0) % MCHC (31.0-37.0) g/dL RDW (11.5-15.5) % Neutrophils # (1.3-7.7) k/uL Lymphocytes # (1.0-4.8) k/uL Sodium (137-145) mmol/L Potassium (3.5-5.1) mmol/L Chloride (98-107) mmol/L BUN (9-20) mg/dL Creatinine (0.66-1.25) mg/dL Glucose (74-99) mg/dL POC Glucose (mg/dL) 208 H (70-110) mg/dL Alkaline Phosphatase (38-126) U/L Albumin (3.5-5.0) g/dL Assessment and Plan Plan: Acute exacerbation of diastolic congestive heart failure versus interstitial edema secondary to chronic kidney disease and renal failure. Bilateral pneumonia cannot be completely excluded. The patient's oxygenation is improved and the patient is currently on 15 L of oxygen by nasal cannula. The patient had a follow-up chest x-ray that showed increased vascular markings secondary to volume overload. Oxygenation remains unchanged despite ongoing hemodialysis. Chest x-ray was reviewed and shows increased pulm vascular markings and cardiomegaly and small effusions. Acute hypoxic respiratory failure, oxygenation is stable on 15 L of oxygen nasal cannula. Acute on chronic kidney disease now requiring renal replacement therapy that started June 10, 2024, underwent dialysis via permacath in the right IJ Hyperkalemia, improved Acute on chronic anemia secondary to above History of CAD with previous PCI Diabetes mellitus type II Hypertension Hyperlipidemia Chronic cephalgia History of UC with previous colectomy and ileostomy History of prostate cancer status post chemoradiation Chronic right heel wound, status post debridement on 05/28/2024 again today June 14, 2024 Obesity, with a BMI of 38.8 kg/m Never tobacco smoker Plan: Titrate FiO2 to maintain saturation above 90% Continue high flow oxygen at 15 L no nasal cannula Hemodialysis to be continued by nephrology. The patient has a permacath in the right IJ. Repeat chest x-ray from 06/21/2024 was noted. No significant changes. Anticipate improvement in his respiratory status and oxygenation with dialysis and ultrafiltration Continue bronchodilators Continue daptomycin and Zosyn Obtain a CAT scan of the chest, no contrast Heparin for DVT prophylaxis Protonix for GI prophylaxis We will continue to follow Time with Patient: Greater than 30
--- NOTE | 2024-06-21 15:40 | CT ---
EXAMINATION TYPE: CT chest wo con DATE OF EXAM: 06/21/2024 3:34 PM COMPARISON: Chest radiograph from same day. 10/21/2021 CLINICAL INDICATION: Male, 73 years old with history of hypoxic respiratory failure; PHH, Hypoxic res piratory failure. TECHNIQUE: Multiple axial images were obtained through the chest. Sagittal and coronal reformats were created for review. MIP was performed on a separate workstation. Contrast used: mL of (None if empty) Oral contrast used: (None if empty) CT DLP: 547.2 mGycm, Automated exposure control for dose reduction was used. FINDINGS: LUNGS/ PLEURA: Diffuse scattered airspace opacities some which are groundglass similar moderate conso lidative. No pneumothorax or pleural effusion. Pleural effusion seen on prior have resolved. AIRWAY: Patent and unremarkable. HEART: The heart is mildly increased in size. Increased density within the coronary arteries may rela te to sclerosis versus vascular stents. MEDIASTINUM: No gross evidence of adenopathy. VASCULATURE: No aortic aneurysm. A central venous catheter with tip in appropriate position near the superior cavoatrial junction. MUSCULOSKELETAL: No acute osseous abnormalities SOFT TISSUES/LYMPH NODES: Unremarkable. LOWER NECK: No significant findings. UPPER ABDOMEN: Layering gallstones in the gallbladder lumen. IMPRESSION: 1. Diffuse bilateral groundglass and airspace opacities throughout the lungs correlate for pulmonary edema correlate for atypical infection could've for ARDS. Findings new from 2021. 2. Cholelithiasis. 3. Mild to moderate Cardiomegaly. 4. Right central venous catheter with tip in appropriate position. 5. [facility], , 06/21/2024 3:38 PM
[2024-06-21 16:37] LABS: Glucose,Whole Blood 189 mg/dL (70-110)
[2024-06-21 20:07] LABS: Glucose,Whole Blood 327 mg/dL (70-110)
[2024-06-21 23:29] LABS: Glucose,Whole Blood 311 mg/dL (70-110)
[2024-06-22 06:11] LABS: Glucose,Whole Blood 169 mg/dL (70-110)
[2024-06-22 07:29] LABS: Anisocytosis Slight; Basophils % (A) 0 %; Eosinophils # (A) 0.2 k/uL (0-0.7); Eosinophils % (A) 1 %; Hypochromasia Marked; Lymphocytes # (A) 0.3 k/uL (1.0-4.8); Lymphocytes % (A) 2 %; MCH 30.4 pg (25.0-35.0); MCHC 29.9 g/dL (31.0-37.0); MCV 101.7 fL (80.0-100.0); Macrocytosis Moderate; Mean Platelet Volume 10.7; Monocytes # (A) 0.6 k/uL (0-1.0); Monocytes % (A) 4 %; Neutrophils # (A) 16.3 k/uL (1.3-7.7); Neutrophils % (A) 94 %; Platelet Count 116 k/uL (150-450); RBC 3.24 m/uL (4.30-5.90); WBC 17.5 k/uL (3.8-10.6)
[2024-06-22 07:40] LABS: ALT 24 U/L (4-49); AST 21 U/L (17-59); African American GFR (CKD) 13 (>60 ml/min/1.73 sqM); Albumin 2.9 g/dL (3.5-5.0); Alkaline Phosphatase 147 U/L (38-126); Anion Gap 15 mmol/L; Blood Urea Nitrogen 67 mg/dL (9-20); Calcium 8.9 mg/dL (8.4-10.2); Carbon Dioxide 18 mmol/L (22-30); Chloride 96 mmol/L (98-107); Glucose 149 mg/dL (74-99); Non-African American GFR(CKD) 11 (>60 ml/min/1.73 sqM); Sodium 129 mmol/L (137-145); Total Bilirubin 0.8 mg/dL (0.2-1.3); Total Protein 5.9 g/dL (6.3-8.2)
[2024-06-22 07:45] LABS: HGB 9.9 gm/dL (13.0-17.5)
[2024-06-22 07:54] LABS: C Reactive Protein 14.9 mg/dL (<1.0)
[2024-06-22 11:37] LABS: Glucose,Whole Blood 133 mg/dL (70-110)
--- NOTE | 2024-06-22 13:05 | P.PN ---
Subjective Progress Note Date: 06/22/24 Principal diagnosis: Reason for follow-up is right heel diabetic foot ulcer with MRSA infection Patient is a 73-year-old male with a past medical history significant for diabetes mellitus hypertension hyperlipidemia osteomyelitis patient has been dealing with a chronic nonhealing wound to the right heel area for months now and is being treated in outpatient setting by Dr. Jernigan his regional driver with recent outpatient culture positive for MRSA and is Proteus. On today's evaluation that is 06/22/2024, patient did not have any fever and denies any chills, patient is breathing comfortably however still requiring 15 L high flow nasal cannula oxygen denies any chest pain no worsening cough no abdominal pain or diarrhea. Patient white count is down to 17.5 creatinine is 4.85 Objective - Vital Signs Vital signs: Vital Signs Temp 97.2 F L 06/22/24 08:00 Pulse 81 06/22/24 12:00 Resp 20 06/22/24 12:00 BP 100/42 06/22/24 12:00 Pulse Ox 90 L 06/22/24 12:00 FiO2 80 06/19/24 07:36 Intake & Output 06/21/24 06/22/24 06/22/24 18:59 06:59 18:59 Intake Total 240 Output Total 300 200 350 Balance -300 40 -350 Weight 95.5 kg Intake: Oral 240 Output: Urine 0 0 Stool 300 200 350 Other: Voiding Method Urinal Urinal Urinal # Voids 0 - Exam GENERAL DESCRIPTION: An elderly male lying in bed in no distress RESPIRATORY SYSTEM: Unlabored breathing , decreased breath sounds at bases HEART: S1 S2 regular rate and rhythm , ABDOMEN: Soft , no tenderness EXTREMITIES: Right hand wound is currently dressed - Labs CBC & Chem 7: 06/22/24 06:57 06/22/24 06:57 Labs: Abnormal Lab Results - Last 24 Hours (Table) 06/21/24 06/21/24 06/21/24 Range/Units 16:35 20:05 23:20 WBC (3.8-10.6) k/uL RBC (4.30-5.90) m/uL Hgb (13.0-17.5) gm/dL Hct (39.0-53.0) % MCV (80.0-100.0) fL MCHC (31.0-37.0) g/dL RDW (11.5-15.5) % Plt Count (150-450) k/uL Neutrophils # (1.3-7.7) k/uL Lymphocytes # (1.0-4.8) k/uL Sodium (137-145) mmol/L Chloride (98-107) mmol/L Carbon Dioxide (22-30) mmol/L BUN (9-20) mg/dL Creatinine (0.66-1.25) mg/dL Glucose (74-99) mg/dL POC Glucose (mg/dL) 189 H 327 H 311 H (70-110) mg/dL Alkaline Phosphatase (38-126) U/L C-Reactive Protein (<1.0) mg/dL Total Protein (6.3-8.2) g/dL Albumin (3.5-5.0) g/dL 06/22/24 06/22/24 06/22/24 Range/Units 06:10 06:57 06:57 WBC 17.5 H (3.8-10.6) k/uL RBC 3.24 L (4.30-5.90) m/uL Hgb 9.9 L D (13.0-17.5) gm/dL Hct 33.0 L (39.0-53.0) % MCV 101.7 H (80.0-100.0) fL MCHC 29.9 L (31.0-37.0) g/dL RDW 17.0 H (11.5-15.5) % Plt Count 116 L (150-450) k/uL Neutrophils # 16.3 H (1.3-7.7) k/uL Lymphocytes # 0.3 L (1.0-4.8) k/uL Sodium 129 L (137-145) mmol/L Chloride 96 L (98-107) mmol/L Carbon Dioxide 18 L (22-30) mmol/L BUN 67 H (9-20) mg/dL Creatinine 4.85 H (0.66-1.25) mg/dL Glucose 149 H (74-99) mg/dL POC Glucose (mg/dL) 169 H (70-110) mg/dL Alkaline Phosphatase 147 H (38-126) U/L C-Reactive Protein 14.9 H (<1.0) mg/dL Total Protein 5.9 L (6.3-8.2) g/dL Albumin 2.9 L (3.5-5.0) g/dL 06/22/24 Range/Units 11:35 WBC (3.8-10.6) k/uL RBC (4.30-5.90) m/uL Hgb (13.0-17.5) gm/dL Hct (39.0-53.0) % MCV (80.0-100.0) fL MCHC (31.0-37.0) g/dL RDW (11.5-15.5) % Plt Count (150-450) k/uL Neutrophils # (1.3-7.7) k/uL Lymphocytes # (1.0-4.8) k/uL Sodium (137-145) mmol/L Chloride (98-107) mmol/L Carbon Dioxide (22-30) mmol/L BUN (9-20) mg/dL Creatinine (0.66-1.25) mg/dL Glucose (74-99) mg/dL POC Glucose (mg/dL) 133 H (70-110) mg/dL Alkaline Phosphatase (38-126) U/L C-Reactive Protein (<1.0) mg/dL Total Protein (6.3-8.2) g/dL Albumin (3.5-5.0) g/dL Assessment and Plan (1) Diabetic infection of right foot Current Visit: Yes Status: Acute Code(s): E11.628 - TYPE 2 DIABETES MELLITUS WITH OTHER SKIN COMPLICATIONS; L08.9 - LOCAL INFECTION OF THE SKIN AND SUBCUTANEOUS TISSUE, UNSP SNOMED Code(s): 707978547 (2) MRSA (methicillin resistant staph aureus) culture positive Current Visit: Yes Status: Acute Code(s): Z22.322 - CARRIER OR SUSPECTED CARRIER OF METHICILLIN RESIS STAPH SNOMED Code(s): 237500128 (3) Diabetic ulcer of right foot Current Visit: No Status: Acute Code(s): E11.621 - TYPE 2 DIABETES MELLITUS WITH FOOT ULCER; L97.519 - NON-PRS CHRONIC ULCER OTH PRT RIGHT FOOT W UNSP SEVERITY SNOMED Code(s): 086141949 (4) Stage III pressure ulcer of right heel Current Visit: No Status: Acute Code(s): L89.613 - PRESSURE ULCER OF RIGHT HEEL, STAGE 3 SNOMED Code(s): 51677737977837 Plan: 1patient with a chronic nonhealing wound to the right heel which he has for couple of months the wound looks deep with a recent culture positive for Proteus and MRSA concerning for wound infection and question for possible deeper i nfection such as osteomyelitis as wound has been there for couple of months now 2- x-rays of the right heel with no evidence of any bony changes 3-patient has been evaluated by Dr. Carpenter and did have surgical debridement completed on 06/07/2024 and did have a further debridement at the bedside by his regional driver on 06/14/2024 4-patient still have necrotic wound to the right heel he may benefit from further surgical debridement for now continue with the Santyl 5patient white count is down to 17,000 without any adjustment on his antibiotic regime will be monitored closely and continue with Zosyn and daptomycin while inpatient Dictation was produced using [employer] dictation software. please excuse any grammatical, word or spelling errors. Time with Patient: Less than 30
[2024-06-22] MEDS: methylPREDNISolone SOD SUCCI 40 MG/ML 1 ML VIAL IV SCH (13:17)
--- NOTE | 2024-06-22 14:03 | P.PN ---
Subjective Progress Note Date: 06/22/24 Patient is a 73-year-old male with past medical history significant for hypertension, hyperlipidemia, coronary artery disease with previous PCI/stenting, heart failure, chronic kidney disease, diabetes mellitus, chronic right heel wound, ulcerative colitis with previous colectomy and ileostomy. Of note, patient had a recent hospitalization late May and was just discharged 05/31/2024 for CHF exacerbation. Echocardiogram done during this hospitalization estimating a preserved left ventricular ejection fraction of 55 to 60%. Limited study, but no acute valvular abnormalities reported. Presented the emergency department on 06/04/2024 with a chief complaint of shortness of breath, mostly on exertion. Chest x-ray showing cardiomegaly, mild pulmonary vascular congestion, and a small pleural effusion on the left. NT proBNP elevated 2550. Currently receiving Lasix 80 mg twice daily. CBC: WBC count 10.2, hemoglobin 10.4, hematocrit 32.5, platelets 374. CMP: Sodium 135, potassium 4.6, chloride 101, serum bicarb 18, BUN 66, creatinine 2.71, glucose 139. Troponin is less than 0.012. Patient currently being evaluated on the general medical floor. Appears weak and deconditioned. He is resting in bed on 1 L/min nasal cannula. No respiratory distress noted. Complaining of a generalized headache, which he states is chronic. States that he has been short of breath on exertion for several months to almost 1 year. Particularly on exertion such as climbing stairs or walking to the bathroom. Denies history of COPD or asthma. Never tobacco smoker. Worked in an [employer] shop before he retired. Denies cough. Denies infectious-like symptoms. Current vital signs: Temperature 98 F, heart rate 78 bpm, blood pressure 145/54 mmHg, nontachypneic, SpO2 recorded at 91% on 1 L/min nasal cannula. The patient is seen today June 07, 2024 in follow-up on the regular medical floor. He is awake and alert in no acute distress. Sitting up at the bedside. Maintaining O2 saturations in the 90s on 3 L/min per nasal cannula. White count 9.8. Hemoglobin 8.9. Platelets 366. Sodium 140. Potassium 4.7. Bicarb 22. BUN 60. Creatinine 2.4. Glucose 97. He remains on DuoNeb and elations, Pulmicort inhalations. Lasix 80 mg IV every 12 hours. He is currently -1.1 L balance. Antibiotics in the form of cefepime and daptomycin for his diabetic ulcer of the right foot. X-ray revealed no osseous erosion or acute fracture. The patient is seen today June 08, 2024 in follow-up on the regular medical floor. He did have issues with worsening shortness of breath. He is currently on BiPAP 12/6 and 40% FiO2. White count 6.3. Hemoglobin 8.5. Platelets 357. Sodium 136. Potassium 5.8. Bicarb 21. BUN 64. Creatinine 2.4. Glucose 178. Chest x-ray continues to show evidence of congestive heart failure. He is currently on Lasix 80 mg IV every 12 hours. Continued on bronchodilators and steroids. Remains on antibiotics in the form of cefepime and daptomycin. The patient is seen today June 09, 2024 in follow-up on the regular medical floor. He is currently resting comfortably in bed. Awake and alert in no acute distress. Breathing easier today compared to yesterday. He is currently on BiPAP 12/6 and 40% FiO2. White count 10.1. Hemoglobin 8.0. Platelets 339. Sodium 136. Potassium 5.8. Bicarb 21. BUN 94. Creatinine 3.4. Glucose 234. He remains on DuoNeb and elations, Pulmicort inhalations, Solu-Medrol. Remains on IV diuretics. Remains on cefepime and daptomycin. Receiving Lokelma. The patient is seen today June 10, 2024 in follow-up on the regular medical floor. He is currently sitting up at the bedside. Awake and alert in no acute distress. He is requiring BiPAP support at 12/6 and 60% FiO2. Alternating with oxygen at 4 L/min per nasal cannula. He is continued on DuoNeb inhalations, Pulmicort inhalations, Solu-Medrol. He remains on antibiotics in the form of cefepime and daptomycin. Receiving iron supplement. Continued on IV diuretics. Continued on sodium bicarb tablets. White count 12.8. Hemoglobin 7.9. Platelets 335. Sodium 135. Potassium 5.2. Bicarb 23. BUN 118. Creatinine 4.1. Glucose 131. Plan is for placement of a hemodialysis catheter today and to receive hemodialysis today and tomorrow per nephrology. The patient is seen today June 12, 2024 in follow-up in the intensive care unit. He was transferred here last evening as his oxygen requirements increased. He is currently on BiPAP 12/6 and 90% FiO2. Arterial blood gases revealed a PaO2 of 60, pCO2 39 and a pH of 7.44. Chest x-ray continues to show diffuse bilateral airspace disease. Blood culture revealed no growth. White count 15.8. Hemoglobin 8.4. Platelets 257. Sodium 135. Potassium 4.4. Bicarb 23. BUN 90. Creatinine 3.51. Glucose 165. proBNP 7440. Procalcitonin pending. He is continued on daptomycin and Zosyn. Remains on Lasix 80 mg IV every 12 hours. Oertli in a -4 L balance. He did receive hemodialysis yesterday and again today 2 L removed each time. He is continued on DuoNeb and elations, Pulmicort inhalations. Solu-Medrol. The patient is seen today June 13, 2024 in follow-up in the intensive care unit. He remains mostly BiPAP dependent currently on 12/6 and 90% FiO2. No IV fluids. The plan is for hemodialysis again today which will be day #4 with approximately 2 L removed each time. Chest x-ray is showing evidence of acute respiratory distress syndrome. His PF ratio is 66 indicating severe ARDS. Blood culture revealed no growth. White count 16.5. Hemoglobin 9.3. Platelets 273. Sodium 135. Potassium 4.7. Bicarb 25. BUN 78. Creatinine 3.34. Glucose 211. Procalcitonin is elevated at 4.78. He remains on DuoNeb inhalations, Pulmicort inhalations, Solu-Medrol. Remains on daptomycin and Zosyn. Remains on Lasix 80 mg IV every 12 hours. Currently in a -4 L balance. Heparin for DVT prophylaxis. Protonix for GI prophylaxis. The patient is seen today June 14, 2024 in follow-up in the intensive care unit. He is awake and alert in no acute distress. He remains on BiPAP 12/6 and 60% FiO2. He is receiving hemodialysis again today with a goal of 2 to 2-1/2 L to be removed. His chest x-ray is showing improvement. Microbiology reveals no growth. He remains on Zosyn. Procalcitonin was 4.78. He has normal saline at KVO. White count 16.2. Hemoglobin 9.2. Platelets 236. Sodium 134. Potassium 4.3. Bicarb 27. BUN 68. Creatinine 3.26. Glucose 210. He remains on DuoNeb inhalations, Pulmicort inhalations, IV Solu-Medrol. He remains on daptomycin and Zosyn. He remains on Lasix 80 mg IV every 12 hours. Currently in a -7.8 L balance. Heparin for DVT prophylaxis. He did undergo debridement with surgical open necrotic tissue of the right heel for diabetic Walter grade 2 ulceration. The patient is seen today June 15, 2024 in follow-up in the intensive care unit. He is currently sitting up in bed. Awake and alert in no acute distress. He is continued on BiPAP 12/6 and 50% FiO2. He is alternating with Airvo high flow oxygen at 50 L and 60% FiO2. Chest x-ray showing improved aeration. He received hemodialysis yesterday with another 2-1/2 L removed. The plan is for hemodialysis again today. He has normal staying at [facility]. He remains on daptomycin and Zosyn. He remains on DuoNeb and elations, Pulmicort inhalations, Solu-Medrol. Heparin for DVT prophylaxis. Remains on Lasix 80 mg IV every 12 hours. White count 9.4. Hemoglobin 9.4. Platelets 203. Sodium 131. Potassium 4.1. Bicarb 25. BUN 72. Creatinine 3.14. Glucose 299. The patient is seen today June 16, 2024 in follow-up in the intensive care unit. He is currently sitting up in bed. Awake and alert in no acute distress. He is maintaining good O2 saturations in the 90s on Airvo high flow oxygen at 50 L and 50% FiO2. He has been off BiPAP for over 24 hours. He received hemodialysis yesterday with 2.5 L removed. The plan is for hemodialysis tomorrow. Chest x-ray shows similar bilateral airspace opacities. Blood culture revealed no growth. White count 12.4. Hemoglobin 10.1. Platelets 202. Sodium 128. Potassium 4.4. Bicarb 21. BUN 72. Creatinine 3.11. Glucose 330. He remains on DuoNeb inhalations, Pulmicort inhalations. Heparin for DVT prophylaxis. Remains on IV Solu-Medrol. Remains on Zosyn. 06/17/2024, the patient is being seen for a follow-up. There is a 73-year-old female patient who is being seen in follow-up regarding his hypoxic respiratory failure. On today's evaluation, the patient remains on Airvo at 40 L with an FiO2 of 40%. Current pulse ox 91 to 92%. At the same time, the patient is undergoing hemodialysis with a goal of ultrafiltration of around 2.5 L. He remains on a combination of Zosyn and daptomycin. The patient had a MRSA he will infection and ID is on the case. The patient is awake and alert and communicating. Remains on DuoNeb nebulized treatments [id number]. Remains on IV Solu-Medrol 40 mg every 12 hours. Rest of the medications are essentially unchanged. Most recent chest x-ray from 06/16/2024 was reviewed and shows multifocal airspace opacities. The patient had a previous echocardiogram done on 05/29/2024 indicating a preserved LV function with an ejection fraction of 55 to 60%. No significant valvular abnormalities. Comorbidities include coronary artery disease with previous PCI and stenting, chronic kidney disease, currently on hemodialysis, diabetes mellitus type 2, chronic right heel wound, ulcerative colitis and the patient has a colectomy and diverting ileostomy along with hypertension hyperlipidemia. 06/18/2024, the patient is feeling better and less short of breath. Noted the patient was taken off the Airvo and the patient is currently in 70s of oxygen by nasal cannula. His oxygenation improved post hemodialysis yesterday it was performed with a total of 3 L of ultrafiltration. The repeat chest x-ray from today also shows improvement in the multifocal airspace opacities that was seen on previous examinations. The patient is producing minimal amount of urine output. Remains on Zosyn. Remains on daptomycin. Rest of the medications are essentially unchanged. No blood work from today. On today's evaluation of 06/19/2024, the patient is being seen for a follow-up. Doing well. On today's evaluation, the patient was placed back on oxygen with 11 L/min nasal cannula. He was subsequently brought up to 15 L. Chest x-ray from today is again showing increased pulmonary vascular markings and pulm vascular congestion consistent with fluid overload. This chest x-ray was done following a insertion of a right IJ permacath. Dialysis to follow. The patient is comfortable. Denies having any shortness of breath at rest. Nevertheless, is slightly more short of breath compared to yesterday. Noted the patient showed significant improvement following hemodialysis was performed yesterday. Another session of hemodialysis to be done today. Remains on DuoNeb nebulized treatments [id number]. Remains on daptomycin and Zosyn as the patient has diabetic foot infection. ID is on the case. Remains on Levemir insulin 28 un its twice daily and NovoLog sliding scale coverage. Rest of the medications remain unchanged. On today's evaluation of 06/20/2024, the patient still on 15 L of oxygen by nasal cannula. Afebrile. Hemodynamically stable. Overall respiratory status is unchanged compared to yesterday. The patient is undergoing hemodialysis. The goal of ultrafiltration is around 2 L. No other complaints otherwise for now. Remains on daptomycin and Zosyn. Remains on DuoNeb nebulized treatments [id number]. Rest of the medications are essentially unchanged he denies having any chest pain. No nausea. No emesis. No other significant events overnight. On 06/21/2024, the patient is being seen for a follow-up. Remains on 15 L of oxygen by nasal cannula. Underwent hemodialysis yesterday and there is no considerable improvement in the patient's oxygenation. At the same time, the follow-up chest x-ray that was done today showed airspace opacities and bilateral pleural effusions. Although CHF and volume overload is highly suspected. Nevertheless, the response to d dialysis has been suboptimal for now. The patient is comfortable. He is feeling a bit weak. He has a right IJ permacath in place. He remains on a combination of Zosyn and daptomycin for a wound infection and ID is on the case. Urine output is minimal at this point in time. Remains on bronchodilators. Rest of the medications remain unchanged. The white cell count of 20 with a hemoglobin of 11.6 and a platelet count of 150. BUN is 45 with a creatinine of 3.3 and a sodium levels at 134 and potassium level is at 5.3. No other significant events overnight. Discussed the case with the medical team. On 06/22/2024, the patient remains on 15 l of oxygen by nasal cannula. A CAT scan of the chest was done yesterday and the CAT scan showed diffuse bilateral groundglass and airspace opacities throughout the lungs bilaterally consistent with pulmonary edema although atypical infections/acute lung injury cannot be completely ruled out. He has mild to moderate cardiomegaly and cholelithiasis. I suspect those findings are related to interstitial edema and the patient with further respond to dialysis and ultrafiltration. The plan for now is to undergo dialysis with a total of 3 L of ultrafiltration. The patient was started back on IV Solu-Medrol. The white cell count is 17.5, hemoglobin 9.9, platelet count is 116. Sodium level is at 129, BUN 67 with a creatinine of 4.8. He is resting comfortably in bed. He does have some mild shortness of breath even at rest. Objective - Vital Signs Vital signs: Vital Signs Temp 97.2 F L 06/22/24 08:00 Pulse 76 06/22/24 08:21 Resp 20 06/22/24 08:00 BP 119/58 06/22/24 08:00 Pulse Ox 88 L 06/22/24 08:02 FiO2 80 06/19/24 07:36 Intake & Output 06/21/24 06/22/24 06/22/24 18:59 06:59 18:59 Intake Total 240 Output Total 300 200 200 Balance -300 40 -200 Weight 95.5 kg Intake: Oral 240 Output: Urine 0 0 Stool 300 200 200 Other: Voiding Method Urinal Urinal Urinal # Voids 0 - Exam GENERAL EXAM: Awake, alert 73-year-old obese male, on 11/15 L of oxygen nasal cannula HEAD: Normocephalic and atraumatic EYES: Normal reaction of pupils, equal size. NOSE: Clear with pink turbinates. THROAT: No erythema or exudates. NECK: No masses, no JVD. CHEST: No chest wall deformity. LUNGS: Equal air entry with diminished lung sounds throughout. Crackles in the bilateral bases. CVS: S1 and S2 normal with no audible murmur, regular rhythm. No extra heart sounds ABDOMEN: No hepatosplenomegaly, active bowel sounds, no guarding or rigidity. Functional ileostomy SPINE: No scoliosis or deformity SKIN: Generalized erythemic plaques involving upper extremities, chest, back CENTRAL NERVOUS SYSTEM: No focal deficits, tone is normal in all 4 extremities. EXTREMITIES: Right foot is wrapped with a bandage. There is 1-2+ peripheral edema. Peripheral pulses are intact. - Labs CBC & Chem 7: 06/22/24 06:57 06/22/24 06:57 Labs: Abnormal Lab Results - Last 24 Hours (Table) 06/21/24 06/21/24 06/21/24 Range/Units 11:39 16:35 20:05 WBC (3.8-10.6) k/uL RBC (4.30-5.90) m/uL Hgb (13.0-17.5) gm/dL Hct (39.0-53.0) % MCV (80.0-100.0) fL MCHC (31.0-37.0) g/dL RDW (11.5-15.5) % Plt Count (150-450) k/uL Neutrophils # (1.3-7.7) k/uL Lymphocytes # (1.0-4.8) k/uL Sodium (137-145) mmol/L Chloride (98-107) mmol/L Carbon Dioxide (22-30) mmol/L BUN (9-20) mg/dL Creatinine (0.66-1.25) mg/dL Glucose (74-99) mg/dL POC Glucose (mg/dL) 208 H 189 H 327 H (70-110) mg/dL Alkaline Phosphatase (38-126) U/L C-Reactive Protein (<1.0) mg/dL Total Protein (6.3-8.2) g/dL Albumin (3.5-5.0) g/dL 06/21/24 06/22/24 06/22/24 Range/Units 23:20 06:10 06:57 WBC 17.5 H (3.8-10.6) k/uL RBC 3.24 L (4.30-5.90) m/uL Hgb 9.9 L D (13.0-17.5) gm/dL Hct 33.0 L (39.0-53.0) % MCV 101.7 H (80.0-100.0) fL MCHC 29.9 L (31.0-37.0) g/dL RDW 17.0 H (11.5-15.5) % Plt Count 116 L (150-450) k/uL Neutrophils # 16.3 H (1.3-7.7) k/uL Lymphocytes # 0.3 L (1.0-4.8) k/uL Sodium (137-145) mmol/L Chloride (98-107) mmol/L Carbon Dioxide (22-30) mmol/L BUN (9-20) mg/dL Creatinine (0.66-1.25) mg/dL Glucose (74-99) mg/dL POC Glucose (mg/dL) 311 H 169 H (70-110) mg/dL Alkaline Phosphatase (38-126) U/L C-Reactive Protein (<1.0) mg/dL Total Protein (6.3-8.2) g/dL Albumin (3.5-5.0) g/dL 06/22/24 Range/Units 06:57 WBC (3.8-10.6) k/uL RBC (4.30-5.90) m/uL Hgb (13.0-17.5) gm/dL Hct (39.0-53.0) % MCV (80.0-100.0) fL MCHC (31.0-37.0) g/dL RDW (11.5-15.5) % Plt Count (150-450) k/uL Neutrophils # (1.3-7.7) k/uL Lymphocytes # (1.0-4.8) k/uL Sodium 129 L (137-145) mmol/L Chloride 96 L (98-107) mmol/L Carbon Dioxide 18 L (22-30) mmol/L BUN 67 H (9-20) mg/dL Creatinine 4.85 H (0.66-1.25) mg/dL Glucose 149 H (74-99) mg/dL POC Glucose (mg/dL) (70-110) mg/dL Alkaline Phosphatase 147 H (38-126) U/L C-Reactive Protein 14.9 H (<1.0) mg/dL Total Protein 5.9 L (6.3-8.2) g/dL Albumin 2.9 L (3.5-5.0) g/dL Assessment and Plan Plan: Acute exacerbation of diastolic congestive heart failure versus interstitial edema secondary to chronic kidney disease and renal failure. Bilateral pneumonia cannot be completely excluded. The patient's oxygenation is improved and the patient is currently on 15 L of oxygen by nasal cannula. The patient had a follow-up chest x-ray that showed increased vascular markings secondary to volume overload. CT scan of the chest shows diffuse bilateral interstitial and airspace diseases. Exact nature of those infiltrates are not clear. Suspect interstitial edema. Infection/postinflammatory is possible although less likely. Acute hypoxic respiratory failure, oxygenation is stable on 15 L of oxygen nasal cannula. Acute on chronic kidney disease now requiring renal replacement therapy that started June 10, 2024, underwent dialysis via permacath in the right IJ Hyperkalemia, improved Acute on chronic anemia secondary to above History of CAD with previous PCI Diabetes mellitus type II Hypertension Hyperlipidemia Chronic cephalgia History of UC with previous colectomy and ileostomy History of prostate cancer status post chemoradiation Chronic right heel wound, status post debridement on 05/28/2024 again today June 14, 2024 Obesity, with a BMI of 38.8 kg/m Never tobacco smoker Plan: Titrate FiO2 to maintain saturation above 90% Continue high flow oxygen at 15 L no nasal cannula Hemodialysis to be continued by nephrology. The patient has a permacath in the right IJ. Hemodialysis to be done today with a total of 3 L of ultrafiltration as long as the patient's blood pressure tolerates. Anticipate improvement in his respiratory status and oxygenation with dialysis and ultrafiltration Continue bronchodilators Continue daptomycin and Zosyn IV Solu-Medrol 40 mg every 12 hours Heparin for DVT prophylaxis Protonix for GI prophylaxis We will continue to follow Time with Patient: Greater than 30
--- NOTE | 2024-06-22 15:51 | P.PN ---
Subjective Patient is seen for follow-up for chronic kidney disease and acute kidney injury. Started hemodialysis on 06/10/2024 Patient is seen on hemodialysis. Blood pressure had dropped and therefore the goal has been reduced to about 1 to 1.5 L.. No significant urine output noted. Maintained on 15 L of oxygen via nasal cannula. Objective - Vital Signs Vital signs: Vital Signs Temp 97.9 F 06/22/24 13:28 Pulse 88 06/22/24 15:18 Resp 18 06/22/24 13:28 BP 143/55 06/22/24 13:28 Pulse Ox 90 L 06/22/24 12:00 FiO2 80 06/19/24 07:36 Intake & Output 06/21/24 06/22/24 06/22/24 18:59 06:59 18:59 Intake Total 240 600 Output Total 991 893 3002 Balance -300 40 -4150 Weight 95.5 kg Intake: Oral 240 Hemodialysis 600 Output: Urine 0 0 Stool 300 200 350 Hemodialysis 2500 Hemodialysis Net Amount 1900 Other: Voiding Method Urinal Urinal Urinal # Voids 0 - Exam Patient is awake, comfortable, no acute distress Abdomen is soft nontender Examination of lower extremities shows trace edema [employer] exam grossly intact - Labs CBC & Chem 7: 06/22/24 06:57 06/22/24 06:57 Labs: Abnormal Lab Results - Last 24 Hours (Table) 06/21/24 06/21/24 06/21/24 Range/Units 16:35 20:05 23:20 WBC (3.8-10.6) k/uL RBC (4.30-5.90) m/uL Hgb (13.0-17.5) gm/dL Hct (39.0-53.0) % MCV (80.0-100.0) fL MCHC (31.0-37.0) g/dL RDW (11.5-15.5) % Plt Count (150-450) k/uL Neutrophils # (1.3-7.7) k/uL Lymphocytes # (1.0-4.8) k/uL Sodium (137-145) mmol/L Chloride (98-107) mmol/L Carbon Dioxide (22-30) mmol/L BUN (9-20) mg/dL Creatinine (0.66-1.25) mg/dL Glucose (74-99) mg/dL POC Glucose (mg/dL) 189 H 327 H 311 H (70-110) mg/dL Alkaline Phosphatase (38-126) U/L C-Reactive Protein (<1.0) mg/dL Total Protein (6.3-8.2) g/dL Albumin (3.5-5.0) g/dL 06/22/24 06/22/24 06/22/24 Range/Units 06:10 06:57 06:57 WBC 17.5 H (3.8-10.6) k/uL RBC 3.24 L (4.30-5.90) m/uL Hgb 9.9 L D (13.0-17.5) gm/dL Hct 33.0 L (39.0-53.0) % MCV 101.7 H (80.0-100.0) fL MCHC 29.9 L (31.0-37.0) g/dL RDW 17.0 H (11.5-15.5) % Plt Count 116 L (150-450) k/uL Neutrophils # 16.3 H (1.3-7.7) k/uL Lymphocytes # 0.3 L (1.0-4.8) k/uL Sodium 129 L (137-145) mmol/L Chloride 96 L (98-107) mmol/L Carbon Dioxide 18 L (22-30) mmol/L BUN 67 H (9-20) mg/dL Creatinine 4.85 H (0.66-1.25) mg/dL Glucose 149 H (74-99) mg/dL POC Glucose (mg/dL) 169 H (70-110) mg/dL Alkaline Phosphatase 147 H (38-126) U/L C-Reactive Protein 14.9 H (<1.0) mg/dL Total Protein 5.9 L (6.3-8.2) g/dL Albumin 2.9 L (3.5-5.0) g/dL 06/22/24 Range/Units 11:35 WBC (3.8-10.6) k/uL RBC (4.30-5.90) m/uL Hgb (13.0-17.5) gm/dL Hct (39.0-53.0) % MCV (80.0-100.0) fL MCHC (31.0-37.0) g/dL RDW (11.5-15.5) % Plt Count (150-450) k/uL Neutrophils # (1.3-7.7) k/uL Lymphocytes # (1.0-4.8) k/uL Sodium (137-145) mmol/L Chloride (98-107) mmol/L Carbon Dioxide (22-30) mmol/L BUN (9-20) mg/dL Creatinine (0.66-1.25) mg/dL Glucose (74-99) mg/dL POC Glucose (mg/dL) 133 H (70-110) mg/dL Alkaline Phosphatase (38-126) U/L C-Reactive Protein (<1.0) mg/dL Total Protein (6.3-8.2) g/dL Albumin (3.5-5.0) g/dL Assessment and Plan Assessment: 1. Acute kidney injury, nonoliguric, cardiorenal. UA is benign and ultrasound does not show any evidence of hydronephrosis. Started hemodialysis on 06/10/2024 for significant oliguric acute kidney injury. 2. Acute on chronic diastolic CHF 3. Volume overload 4. Hypertension with CKD stage IV 5. Acute hypoxic respiratory failure secondary to CHF 6. Coronary artery disease with history of coronary stents 7. Metabolic acidosis maintained on oral sodium bicarb and improved with dialysis 8. Right heel wound status post debridement Plan: Hemodialysis on 06/24/2024 Resume oral sodium bicarb Decrease UF with hemodialysis. Patient is close to his dry weight. Encouraged increased oral intake.
--- NOTE | 2024-06-22 16:06 | P.PN ---
Progress Note - Text Progress Note Date: 06/22/24 Chief Complaint: Short of breath Pleasant 73-year-old patient follows with Dr. 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 Bales. April 26, [address] Bales: Following a non-ST relation [place]: Patent stent to mid LAD. Late stent thrombosis of the second diagonal branch of the LAD. Severe disease involving the OM1 appears unchanged. Attempted balloon angioplasty performed to the second of diagonal branch with suboptimal results. Dose of Imdur was increased and Ranexa was added. Patient recently in the hospital from May 28 through May 31. Chronic headaches: MRI unremarkable. MR angio head and neck: MR angio head without contrast: No evidence of aneurysm or significant stenosis. Atrophic right A1 segment. origin of the right posterior cerebral artery.MRI of the brain nonspecific. Was seen by neurology Dr. Gay. Patient to follow-up outpatient Chronic right heel wound seen by Dr. Carpenter from vascular deep debridement was carried out. No need for antibiotics. Patient to follow-up with Dr. Jernigan at the wound center. Shortness of breath: Was seen by cardiology. Not for any further intervention. Patient doing well when discharged. Patient presented increased shortness of breath when at home. His pulse ox dropped out of the 80s. Increasing shortness of breath. Decreased appetite. No fever or chills. June 10: Using his BiPAP. Patient seen this morning. Later this afternoon. Right femoral vein dialysis catheter was placed by Dr. Carpenter from vascular for dialysis. Baseline some shortness of breath. Due for first dialysis today. Patient is right heel culture grew MRSA Proteus P Corynebacterium on May 29. Patient is on IV daptomycin and IV cefepime per ID. June 11: Patient seen this afternoon. On BiPAP. Getting hemodialysis. Remains on IV daptomycin IV Zosyn. Tired. Also getting IV iron. Patient really did not eat today. Because of BiPAP. Cut back Levemir to 26 units at night. DC scheduled NovoLog for now. June 12: Overflowing the ICU. Remains on BiPAP. 04/05/90%. at the bedside. Remains on IV daptomycin and IV Zosyn. For dialysis today. X-ray continues shows infiltrates. Significantly hypoxic. N.p.o. June 13: ICU. Remains on BiPAP. 12/6/90% moderate take anything by mouth. Spoke to the nurse have TPN lipids ordered. Remains on IV daptomycin IV Zosyn. Chest x-ray continues to show diffuse infiltrates. Continues to be followed by cardiology pulmonary ID nephrology. June 14: ICU. Later this afternoon patient was put on Airvo. 60/60. Has some delirium. Remains on IV daptomycin and IV Zosyn. Had 2 L ultrafiltration yesterday. Patient getting daily dialysis for now. As patient is oliguric per nephrology Lasix has been held. TPN was ordered yesterday per the nurse culture that returned to feed the patient. Will see how that goes. Dietitian on the case. June 15: ICU. Patient be getting hypotensive. Some medications held back by cardiology. Hemodialysis done today. Patient remains on Airvo though at 50/50. at the bedside. Plans this afternoon to get him up in the chair. Remains on daptomycin and IV Zosyn. IV Lasix been discontinued. Patient tolerating some liquid diet. June 16: Patient moved to the ICU. Remains on Airvo. 45/45. at the bedside. Tolerating full liquids. Spoke to the about the morphine. His headaches are chronic. Use Fioricet as needed. Remains on IV daptomycin and IV Zosyn. IV Solu-Medrol. Amlodipine dose cut back. PT OT. June 17: On 3 S., telemetry floor. Getting hemodialysis today. Remains on IV daptomycin IV Zosyn. On full liquid diet. Advance to ground diet. Minimal urine output. DC fluid restriction. Awake communicating. Accu-Cheks running high. Increase Levemir to 28 units subcu twice daily. Seen by PT OT. Maximum assist. On Airvo 40/40. Cut back Solu-Medrol to every 12. June 18: On a recliner. 7 L nasal cannula. Decreased appetite. at the bedside. Accu-Chek in 200s. IJ PermCath placement pending. Encourage oral intake. Ordered incentive spirometry June 19: Patient was on 7 L nasal cannula yesterday. Patient back on Airvo today. 40 L. Due for hemodialysis today. Had perm dialysis catheter placed right IJ by Dr. Carpenter today. Minimal intake today. Discussed with at the bedside. June 20: Recliner. High flow 15 L nasal cannula. at the bedside. Decreased oral intake.Tired. Hemodialysis today. June 21: Still decreased appetite. Remains on high flow 15 l nasal cannula. Remains on IV daptomycin IV Zosyn per ID. Being followed by [facility] spoke to the patient and . Encourage oral intake. June 22: Remains on 15 L high flow nasal cannula. at the bedside. Diet. Remains on IV daptomycin IV Zosyn. Decreased appetite. Will try ground diet. Active Medications Acetaminophen (Acetaminophen Tab 325 Mg Tab) 650 mg PO Q6HR PRN PRN Reason: Mild Pain or Fever > 100.5 Last Admin: 06/22/24 06:25 Dose: 650 mg Acetaminophen/Butalbital/Caffeine (Butalb/Apap/Caff 50-325-40mg Tab) 1 each PO Q4H PRN PRN Reason: Migraine Headache Albuterol/Ipratropium (Ipratropium-Albuterol 3 Ml Neb) 3 ml INHALATION RT-QID [facility] Last Admin: 06/22/24 15:09 Dose: 3 ml Albuterol/Ipratropium (Ipratropium-Albuterol 3 Ml Neb) 3 ml INHALATION RT-QID PRN PRN Reason: Shortness Of Breath Or Wheezing Allopurinol (Allopurinol 100 Mg Tab) 100 mg PO DAILY [facility] Last Admin: 06/22/24 09:00 Dose: 100 mg Amlodipine Besylate (Amlodipine 5 Mg Tab) 5 mg PO DAILY [facility] Last Admin: 06/22/24 11:47 Dose: Not Given Aspirin (Aspirin 81 Mg) 81 mg PO DAILY [facility] Last Admin: 06/22/24 08:59 Dose: 81 mg Atorvastatin Calcium (Atorvastatin 40 Mg Tab) 40 mg PO DAILY [facility] Last Admin: 06/22/24 09:00 Dose: 40 mg Budesonide (Budesonide 1 Mg/2 Ml Nebu) 1 mg INHALATION RT-BID [facility] Last Admin: 06/22/24 08:02 Dose: 1 mg Calcitriol (Calcitriol 0.25 Mcg Cap) 0.25 mcg PO Mo@0900 [facility] Last Admin: 06/17/24 11:37 Dose: 0.25 mcg Clopidogrel Bisulfate (Clopidogrel 75 Mg Tab) 75 mg PO DAILY [facility] Last Admin: 06/22/24 09:00 Dose: 75 mg Collagenase (Collagenase 250 Unit/Gm Ointment 30 Gm Tube) 1 applic TOPICAL DAILY [facility]; Protocol Last Admin: 06/22/24 15:26 Dose: 1 applic Darbepoetin Silverio (Darbepoetin Silverio 40 Mcg/0.4 Ml Syringe) 40 mcg SQ Q7D [facility] Last Admin: 06/19/24 11:41 Dose: 40 mcg Dextrose/Water (Dextrose 50% Syringe 50 Ml) 25 ml IVP PER PROTOCOL PRN; Protocol PRN Reason: Hypoglycemia Dextrose/Water (Dextrose 50% Syringe 50 Ml) 50 ml IVP PER PROTOCOL PRN; Protocol PRN Reason: Hypoglycemia Ergocalciferol (Ergocalciferol 1,250 Mcg (50,000 Iu) Capsule) 1,250 mcg PO Q14D [facility] Last Admin: 06/19/24 11:40 Dose: 1,250 mcg Escitalopram Oxalate (Escitalopram 10 Mg Tab) 10 mg PO DAILY [facility] Last Admin: 06/22/24 09:00 Dose: 10 mg Gabapentin (Gabapentin 100 Mg Cap) 100 mg PO HS [facility] Last Admin: 06/21/24 20:03 Dose: 100 mg Haloperidol Lactate (Haloperidol Lactate 5 Mg/Ml 1 Ml Vial) 5 mg IVP ONCE PRN PRN Reason: Agitation or Acute Psychosis Last Admin: 06/14/24 23:51 Dose: 5 mg Haloperidol Lactate (Haloperidol Lactate 5 Mg/Ml 1 Ml Vial) 5 mg IVP Q8HR PRN PRN Reason: Agitation or Acute Psychosis Last Admin: 06/13/24 03:01 Dose: 5 mg Heparin Sodium (Porcine) (Heparin Sodium,Porcine 5,000 Unit/Ml 1 Ml Vial) 5,000 unit SQ Q8HR [facility] Last Admin: 06/22/24 15:26 Dose: 5,000 unit Hydralazine HCl (Hydralazine Hcl 25 Mg Tab) 25 mg PO TID [facility] Last Admin: 06/22/24 15:26 Dose: 25 mg Daptomycin 350 mg/ Sodium (Chloride) 50 mls @ 100 mls/hr IVPB Q48H [facility]; Protocol Last Admin: 06/22/24 08:57 Dose: 100 mls/hr Piperacillin Sod/Tazobactam (Sod 3.375 gm/ Sodium Chloride) 100 mls @ 25 mls/hr IVPB Q12HR [facility]; Protocol Last Admin: 06/22/24 13:17 Dose: 25 mls/hr Insulin Aspart (Insulin Aspart (Novolog) 100 Unit/Ml Vial) 0 unit SQ Q6HR [facility]; Protocol Last Admin: 06/22/24 11:46 Dose: Not Given Insulin Glargine (Insulin Glargine (Lantus) 100 Unit/Ml Syr) 28 unit SQ BID@0700,2100 [facility] Last Admin: 06/22/24 06:25 Dose: 28 unit Isosorbide Mononitrate (Isosorbide Mononitrate Er 60 Mg Tab.Er.24h) 60 mg PO DAILY [facility] Last Admin: 06/22/24 11:47 Dose: Not Given Methylprednisolone Sodium Succinate (Methylprednisolone Sod Succi 40 Mg/Ml 1 Ml Vial) 40 mg IV Q12HR [facility] Last Admin: 06/22/24 13:17 Dose: 40 mg Metoprolol Succinate (Metoprolol Succinate (Er) 25 Mg Tab.Er.24h) 25 mg PO DAILY [facility] Last Admin: 06/22/24 11:47 Dose: Not Given Naloxone HCl (Naloxone 0.4 Mg/Ml 1 Ml Vial) 0.2 mg IV Q2M PRN PRN Reason: Opioid Reversal Collagenase 250 Unit /Gm Ointment 30 Gm Tube 1 each TOPICAL DAILY [facility]; Protocol Last Admin: 06/22/24 08:38 Dose: Not Given Pantoprazole Sodium (Pantoprazole 40 Mg/10 Ml Vial) 40 mg IVP DAILY [facility] Last Admin: 06/22/24 08:57 Dose: 40 mg Petrolatum (Zinc Oxide Paste (Z-Guard) 1 Applic) 1 applic TOPICAL BID [facility]; Protocol Last Admin: 06/22/24 15:26 Dose: 1 applic Ranolazine (Ranolazine 500 Mg Tab.Er.12h) 500 mg PO Q12HR [facility] Last Admin: 06/22/24 09:00 Dose: 500 mg Tamsulosin HCl (Tamsulosin 0.4 Mg Cap.Er.24h) 0.4 mg PO PC-BRKFST [facility] Last Admin: 06/22/24 09:00 Dose: 0.4 mg Triamcinolone Acetonide (Triamcinolone Acet 0.5% Cream 15 Gm Tube) 1 applic TOPICAL BID PRN; Protocol PRN Reason: rash/dry skin Social history: Non-smoking. No alcohol. On examination: VITAL SIGNS: 92, 20, 119 x 57, 91% on 15 L high flow oxygen GENERAL APPEARANCE: Sitting in bed HEENT: Normal external appearance of nose and ear. Oral cavity normal EYES: Pupils equal. Conjunctiva normal. NECK: JVD not raised. Mass not palpable. RESPIRATORY: Respiratory effort increased lungs decreased breath sounds with some fine crackles CARDIOVASCULAR: First and second sounds normal. Minimal edema in the right leg ABDOMEN: Soft. Liver and spleen not palpable. No tenderness. No right upper quadrant tenderness. No mass palpable. Colostomy bag with liquid stool PSYCHIATRY: Answering simple questions Extremity: Right foot in dressing INVESTIGATIONS, reviewed in the clinical context: June 22: White count 7.5 hemoglobin 9.9 platelets 116 sodium 129 potassium 5. 67 creatinine 4.85 June 21: White count 20 hemoglobin 11.6 platelets 150 sodium 134 BUN 45 creatinine 3.36 June 16: White count 12.4 hemoglobin 10.1 platelets 202 sodium 128 potassium 4.4 BUN 32 creatinine 3.11 June 15: White count 9.4 hemoglobin 9.4 platelets 2 3 potassium 4.1 bicarb 25 BUN 32 creatinine 3.14 June 14: White count 16.2 hemoglobin 9.2 platelets 236 sodium 134 potassium 4.3 BUN 68 creatinine 3.26 June 13: White count 16.5 hemoglobin 9.3 platelets 273 sodium 135 potassium 4.7 BUN 38 creatinine 3.34 June 11: Potassium 4.9 BUN 108 creatinine 4.1 June 10: White count 12.8 hemoglobin 7.9 platelets 335 sodium 135 potassium 5.2 BUN 118 creatinine 4.1 June 04: White count 10.2 hemoglobin 10.4 platelet 374 sodium 135 potassium 4.6 BUN 66 creatinine 2.71 troponin I less than 0.012 proBNP 2550 EKG tracing personally reviewed by mn-atrial fibrillation. Rate 68 Chest x-ray film personally reviewed by mn-pul edema Recent labs May 30: Potassium 4.7 BUN 42.3 creatinine 2.3 Assessment and plan: -Acute on chronic congestive heart failure exacerbation, from diastolic dysfunction EF 55 to 60%.: Better Received IV Lasix Started on dialysis June 10.- -Acute hypoxic respiratory failure from pulmonary edema: Slow to respond Initially BiPAP 12/6/90%. Then Airvo. Today high flow 15 L nasal cannula -Acute respiratory distress syndrome, multifactorial: Slowly improving On Airvo initially Received IV Solu-Medrol: Discontinued -COPD non-smoker DuoNeb 4 times daily. Nebulized Pulmicort -Chronic ostomy-functioning well -Chronic cephalgia. Patient stated headaches for greater than 6 months. Practically every day. Does not interfere with his eating. No exacerbating relieving factors: Possible tension headaches. CT scan of the brain shows some chronic changes MRI and MRI of the brain showing chronic changes. Seen by Dr. Gay from neurology a week ago. Further outpatient follow-up with neurology -Acute delirium/metabolic encephalopathy. Multifactorial: Better -Right heel wound. Dry. Follows with Dr. Jernigan at the wound center. Dr. Carpenter from vascular-. Deep debridement carried recently Wound culture [May 29] MRSA, Proteus IV cefepime, daptomycin per ID -Chronic parastomal hernia #Hypertension: Amlodipine. Toprol-XL. Hydralazine -Acute kidney injury, likely cardiorenal: On hemodialysis Right femoral vein dialysis catheter placed by Dr. Carpenter on June 10. Hemodialysis started June 10-Daily Right IJ PermCath placement -CKD likely nephrosclerosis, diabetic nephropathy Creatinine was 1.6 on April 28, 2024. -CAD with stent Toprol-XL -Anemia in the setting of chronic kidney disease. Iron deficiency anemia. Given IV iron -Primary osteoarthritis Pain medication as needed -History of prostate cancer with radiation and chemo in 2020. #Diabetes mellitus type II, chronically on insulin: Uncontrolled with hyperglycemia Levemir to 28 units SQ every 12 #Hyperlipidemia: Lipitor #GERD: Protonix -Full code Past Medical History Past Medical History: Cancer, Chest Pain / Angina, Diabetes Mellitus, Eye Disorder, GERD/Reflux, Hyperlipidemia, Hypertension, Osteoarthritis (OA), Prostate Disorder, Renal Disease Additional Past Medical History / Comment(s): HX OF ULCERATIVE COLITIS, ileostomy PARASTOMAL HERNIA, PROSTATE CA WITH RADIATION AND CHEMO IN 2020, LOW KIDNEY FUNCTION,Covid Dec 2022, Influenza A Jun 2023, eye condition, unsure of name. History of Any Multi-Drug Resistant Organisms: MRSA Date of last positivie culture/infection: 05/24/24 MDRO Source:: rt heel, scalp Past Surgical History: Appendectomy, Bowel Resection, Heart Catheterization, Heart Catheterization With Stent Additional Past Surgical History / Comment(s): COLECTOMY, RECTUM REMOVED, ELLIOTT CATARACTS removed, ILEOSTOMY, HERNIA SURGERY. Past Anesthesia/Blood Transfusion Reactions: No Reported Reaction Additional Past Anesthesia/Blood Transfusion Reaction / Comment(s): no problems with prior blood transfusions. Date of Last Stent Placement:: 08/01/2023 Past Psychological History: No Psychological Hx Reported Smoking Status: Never smoker Past Alcohol Use History: None Reported Past Drug Use History: None Reported
[2024-06-22 16:40] LABS: Glucose,Whole Blood 377 mg/dL (70-110)
[2024-06-22 23:00] LABS: Glucose,Whole Blood 325 mg/dL (70-110)
[2024-06-23 06:24] LABS: Glucose,Whole Blood 280 mg/dL (70-110)
--- NOTE | 2024-06-23 11:07 | P.PN ---
Subjective Patient is seen for follow-up for chronic kidney disease and acute kidney injury. Started hemodialysis on 06/10/2024 Patient is comfortable. No significant complaints. Oxygen remains at 15 L via nasal cannula. Objective - Vital Signs Vital signs: Vital Signs Temp 97.5 F L 06/23/24 08:00 Pulse 80 06/23/24 08:39 Resp 20 06/23/24 08:00 BP 119/54 06/23/24 08:00 Pulse Ox 89 L 06/23/24 08:24 FiO2 80 06/19/24 07:36 Intake & Output 06/22/24 06/23/24 06/23/24 18:59 06:59 18:59 Intake Total 1080 Output Total 4800 200 220 Balance -3720 -200 -220 Weight 91.5 kg Intake: Oral 480 Hemodialysis 600 Output: Urine 0 Stool 400 200 220 Hemodialysis 2500 Hemodialysis Net Amount 1900 Other: Voiding Method Urinal Urinal - Exam Patient is awake, comfortable, no acute distress Examination of the heart S1 and S2 Examination of the lungs bilateral breath sounds are heard Abdomen is soft nontender Examination of lower extremities shows trace edema [employer] O[employer] exam grossly intact - Labs CBC & Chem 7: 06/22/24 06:57 06/22/24 06:57 Labs: Abnormal Lab Results - Last 24 Hours (Table) 06/22/24 06/22/24 06/22/24 Range/Units 11:35 16:39 22:59 POC Glucose (mg/dL) 133 H 377 H 325 H (70-110) mg/dL 06/23/24 Range/Units 06:23 POC Glucose (mg/dL) 280 H (70-110) mg/dL Assessment and Plan Assessment: 1. Acute kidney injury, nonoliguric, cardiorenal. UA is benign and ultrasound does not show any evidence of hydronephrosis. Started hemodialysis on 06/10/2024 for significant oliguric acute kidney injury. 2. Acute on chronic diastolic CHF 3. Volume overload 4. Hypertension with CKD stage IV 5. Acute hypoxic respiratory failure secondary to CHF 6. Coronary artery disease with history of coronary stents 7. Metabolic acidosis maintained on oral sodium bicarb and improved with dialysis 8. Right heel wound status post debridement Plan: Hemodialysis in a.m. Resume oral sodium bicarb Decrease UF with hemodialysis. Patient is close to his dry weight. Encouraged increased oral intake.
[2024-06-23 11:42] LABS: Glucose,Whole Blood 334 mg/dL (70-110)
--- NOTE | 2024-06-23 13:31 | P.PN ---
Subjective Progress Note Date: 06/23/24 Patient is a 73-year-old male with past medical history significant for hypertension, hyperlipidemia, coronary artery disease with previous PCI/stenting, heart failure, chronic kidney disease, diabetes mellitus, chronic right heel wound, ulcerative colitis with previous colectomy and ileostomy. Of note, patient had a recent hospitalization late May and was just discharged 05/31/2024 for CHF exacerbation. Echocardiogram done during this hospitalization estimating a preserved left ventricular ejection fraction of 55 to 60%. Limited study, but no acute valvular abnormalities reported. Presented the emergency department on 06/04/2024 with a chief complaint of shortness of breath, mostly on exertion. Chest x-ray showing cardiomegaly, mild pulmonary vascular congestion, and a small pleural effusion on the left. NT proBNP elevated 2550. Currently receiving Lasix 80 mg twice daily. CBC: WBC count 10.2, hemoglobin 10.4, hematocrit 32.5, platelets 374. CMP: Sodium 135, potassium 4.6, chloride 101, serum bicarb 18, BUN 66, creatinine 2.71, glucose 139. Troponin is less than 0.012. Patient currently being evaluated on the general medical floor. Appears weak and deconditioned. He is resting in bed on 1 L/min nasal cannula. No respiratory distress noted. Complaining of a generalized headache, which he states is chronic. States that he has been short of breath on exertion for several months to almost 1 year. Particularly on exertion such as climbing stairs or walking to the bathroom. Denies history of COPD or asthma. Never tobacco smoker. Worked in an [employer] shop before he retired. Denies cough. Denies infectious-like symptoms. Current vital signs: Temperature 98 F, heart rate 78 bpm, blood pressure 145/54 mmHg, nontachypneic, SpO2 recorded at 91% on 1 L/min nasal cannula. The patient is seen today June 07, 2024 in follow-up on the regular medical floor. He is awake and alert in no acute distress. Sitting up at the bedside. Maintaining O2 saturations in the 90s on 3 L/min per nasal cannula. White count 9.8. Hemoglobin 8.9. Platelets 366. Sodium 140. Potassium 4.7. Bicarb 22. BUN 60. Creatinine 2.4. Glucose 97. He remains on DuoNeb and elations, Pulmicort inhalations. Lasix 80 mg IV every 12 hours. He is currently -1.1 L balance. Antibiotics in the form of cefepime and daptomycin for his diabetic ulcer of the right foot. X-ray revealed no osseous erosion or acute fracture. The patient is seen today June 08, 2024 in follow-up on the regular medical floor. He did have issues with worsening shortness of breath. He is currently on BiPAP 12/6 and 40% FiO2. White count 6.3. Hemoglobin 8.5. Platelets 357. Sodium 136. Potassium 5.8. Bicarb 21. BUN 64. Creatinine 2.4. Glucose 178. Chest x-ray continues to show evidence of congestive heart failure. He is currently on Lasix 80 mg IV every 12 hours. Continued on bronchodilators and steroids. Remains on antibiotics in the form of cefepime and daptomycin. The patient is seen today June 09, 2024 in follow-up on the regular medical floor. He is currently resting comfortably in bed. Awake and alert in no acute distress. Breathing easier today compared to yesterday. He is currently on BiPAP 12/6 and 40% FiO2. White count 10.1. Hemoglobin 8.0. Platelets 339. Sodium 136. Potassium 5.8. Bicarb 21. BUN 94. Creatinine 3.4. Glucose 234. He remains on DuoNeb and elations, Pulmicort inhalations, Solu-Medrol. Remains on IV diuretics. Remains on cefepime and daptomycin. Receiving Lokelma. The patient is seen today June 10, 2024 in follow-up on the regular medical floor. He is currently sitting up at the bedside. Awake and alert in no acute distress. He is requiring BiPAP support at 12/6 and 60% FiO2. Alternating with oxygen at 4 L/min per nasal cannula. He is continued on DuoNeb inhalations, Pulmicort inhalations, Solu-Medrol. He remains on antibiotics in the form of cefepime and daptomycin. Receiving iron supplement. Continued on IV diuretics. Continued on sodium bicarb tablets. White count 12.8. Hemoglobin 7.9. Platelets 335. Sodium 135. Potassium 5.2. Bicarb 23. BUN 118. Creatinine 4.1. Glucose 131. Plan is for placement of a hemodialysis catheter today and to receive hemodialysis today and tomorrow per nephrology. The patient is seen today June 12, 2024 in follow-up in the intensive care unit. He was transferred here last evening as his oxygen requirements increased. He is currently on BiPAP 12/6 and 90% FiO2. Arterial blood gases revealed a PaO2 of 60, pCO2 39 and a pH of 7.44. Chest x-ray continues to show diffuse bilateral airspace disease. Blood culture revealed no growth. White count 15.8. Hemoglobin 8.4. Platelets 257. Sodium 135. Potassium 4.4. Bicarb 23. BUN 90. Creatinine 3.51. Glucose 165. proBNP 7440. Procalcitonin pending. He is continued on daptomycin and Zosyn. Remains on Lasix 80 mg IV every 12 hours. Oertli in a -4 L balance. He did receive hemodialysis yesterday and again today 2 L removed each time. He is continued on DuoNeb and elations, Pulmicort inhalations. Solu-Medrol. The patient is seen today June 13, 2024 in follow-up in the intensive care unit. He remains mostly BiPAP dependent currently on 12/6 and 90% FiO2. No IV fluids. The plan is for hemodialysis again today which will be day #4 with approximately 2 L removed each time. Chest x-ray is showing evidence of acute respiratory distress syndrome. His PF ratio is 66 indicating severe ARDS. Blood culture revealed no growth. White count 16.5. Hemoglobin 9.3. Platelets 273. Sodium 135. Potassium 4.7. Bicarb 25. BUN 78. Creatinine 3.34. Glucose 211. Procalcitonin is elevated at 4.78. He remains on DuoNeb inhalations, Pulmicort inhalations, Solu-Medrol. Remains on daptomycin and Zosyn. Remains on Lasix 80 mg IV every 12 hours. Currently in a -4 L balance. Heparin for DVT prophylaxis. Protonix for GI prophylaxis. The patient is seen today June 14, 2024 in follow-up in the intensive care unit. He is awake and alert in no acute distress. He remains on BiPAP 12/6 and 60% FiO2. He is receiving hemodialysis again today with a goal of 2 to 2-1/2 L to be removed. His chest x-ray is showing improvement. Microbiology reveals no growth. He remains on Zosyn. Procalcitonin was 4.78. He has normal saline at KVO. White count 16.2. Hemoglobin 9.2. Platelets 236. Sodium 134. Potassium 4.3. Bicarb 27. BUN 68. Creatinine 3.26. Glucose 210. He remains on DuoNeb inhalations, Pulmicort inhalations, IV Solu-Medrol. He remains on daptomycin and Zosyn. He remains on Lasix 80 mg IV every 12 hours. Currently in a -7.8 L balance. Heparin for DVT prophylaxis. He did undergo debridement with surgical open necrotic tissue of the right heel for diabetic Walter grade 2 ulceration. The patient is seen today June 15, 2024 in follow-up in the intensive care unit. He is currently sitting up in bed. Awake and alert in no acute distress. He is continued on BiPAP 12/6 and 50% FiO2. He is alternating with Airvo high flow oxygen at 50 L and 60% FiO2. Chest x-ray showing improved aeration. He received hemodialysis yesterday with another 2-1/2 L removed. The plan is for hemodialysis again today. He has normal staying at [facility]. He remains on daptomycin and Zosyn. He remains on DuoNeb and elations, Pulmicort inhalations, Solu-Medrol. Heparin for DVT prophylaxis. Remains on Lasix 80 mg IV every 12 hours. White count 9.4. Hemoglobin 9.4. Platelets 203. Sodium 131. Potassium 4.1. Bicarb 25. BUN 72. Creatinine 3.14. Glucose 299. The patient is seen today June 16, 2024 in follow-up in the intensive care unit. He is currently sitting up in bed. Awake and alert in no acute distress. He is maintaining good O2 saturations in the 90s on Airvo high flow oxygen at 50 L and 50% FiO2. He has been off BiPAP for over 24 hours. He received hemodialysis yesterday with 2.5 L removed. The plan is for hemodialysis tomorrow. Chest x-ray shows similar bilateral airspace opacities. Blood culture revealed no growth. White count 12.4. Hemoglobin 10.1. Platelets 202. Sodium 128. Potassium 4.4. Bicarb 21. BUN 72. Creatinine 3.11. Glucose 330. He remains on DuoNeb inhalations, Pulmicort inhalations. Heparin for DVT prophylaxis. Remains on IV Solu-Medrol. Remains on Zosyn. 06/17/2024, the patient is being seen for a follow-up. There is a 73-year-old female patient who is being seen in follow-up regarding his hypoxic respiratory failure. On today's evaluation, the patient remains on Airvo at 40 L with an FiO2 of 40%. Current pulse ox 91 to 92%. At the same time, the patient is undergoing hemodialysis with a goal of ultrafiltration of around 2.5 L. He remains on a combination of Zosyn and daptomycin. The patient had a MRSA he will infection and ID is on the case. The patient is awake and alert and communicating. Remains on DuoNeb nebulized treatments [id number]. Remains on IV Solu-Medrol 40 mg every 12 hours. Rest of the medications are essentially unchanged. Most recent chest x-ray from 06/16/2024 was reviewed and shows multifocal airspace opacities. The patient had a previous echocardiogram done on 05/29/2024 indicating a preserved LV function with an ejection fraction of 55 to 60%. No significant valvular abnormalities. Comorbidities include coronary artery disease with previous PCI and stenting, chronic kidney disease, currently on hemodialysis, diabetes mellitus type 2, chronic right heel wound, ulcerative colitis and the patient has a colectomy and diverting ileostomy along with hypertension hyperlipidemia. 06/18/2024, the patient is feeling better and less short of breath. Noted the patient was taken off the Airvo and the patient is currently in 70s of oxygen by nasal cannula. His oxygenation improved post hemodialysis yesterday it was performed with a total of 3 L of ultrafiltration. The repeat chest x-ray from today also shows improvement in the multifocal airspace opacities that was seen on previous examinations. The patient is producing minimal amount of urine output. Remains on Zosyn. Remains on daptomycin. Rest of the medications are essentially unchanged. No blood work from today. On today's evaluation of 06/19/2024, the patient is being seen for a follow-up. Doing well. On today's evaluation, the patient was placed back on oxygen with 11 L/min nasal cannula. He was subsequently brought up to 15 L. Chest x-ray from today is again showing increased pulmonary vascular markings and pulm vascular congestion consistent with fluid overload. This chest x-ray was done following a insertion of a right IJ permacath. Dialysis to follow. The patient is comfortable. Denies having any shortness of breath at rest. Nevertheless, is slightly more short of breath compared to yesterday. Noted the patient showed significant improvement following hemodialysis was performed yesterday. Another session of hemodialysis to be done today. Remains on DuoNeb nebulized treatments [id number]. Remains on daptomycin and Zosyn as the patient has diabetic foot infection. ID is on the case. Remains on Levemir insulin 28 un its twice daily and NovoLog sliding scale coverage. Rest of the medications remain unchanged. On today's evaluation of 06/20/2024, the patient still on 15 L of oxygen by nasal cannula. Afebrile. Hemodynamically stable. Overall respiratory status is unchanged compared to yesterday. The patient is undergoing hemodialysis. The goal of ultrafiltration is around 2 L. No other complaints otherwise for now. Remains on daptomycin and Zosyn. Remains on DuoNeb nebulized treatments [id number]. Rest of the medications are essentially unchanged he denies having any chest pain. No nausea. No emesis. No other significant events overnight. On 06/21/2024, the patient is being seen for a follow-up. Remains on 15 L of oxygen by nasal cannula. Underwent hemodialysis yesterday and there is no considerable improvement in the patient's oxygenation. At the same time, the follow-up chest x-ray that was done today showed airspace opacities and bilateral pleural effusions. Although CHF and volume overload is highly suspected. Nevertheless, the response to d dialysis has been suboptimal for now. The patient is comfortable. He is feeling a bit weak. He has a right IJ permacath in place. He remains on a combination of Zosyn and daptomycin for a wound infection and ID is on the case. Urine output is minimal at this point in time. Remains on bronchodilators. Rest of the medications remain unchanged. The white cell count of 20 with a hemoglobin of 11.6 and a platelet count of 150. BUN is 45 with a creatinine of 3.3 and a sodium levels at 134 and potassium level is at 5.3. No other significant events overnight. Discussed the case with the medical team. On 06/22/2024, the patient remains on 15 l of oxygen by nasal cannula. A CAT scan of the chest was done yesterday and the CAT scan showed diffuse bilateral groundglass and airspace opacities throughout the lungs bilaterally consistent with pulmonary edema although atypical infections/acute lung injury cannot be completely ruled out. He has mild to moderate cardiomegaly and cholelithiasis. I suspect those findings are related to interstitial edema and the patient with further respond to dialysis and ultrafiltration. The plan for now is to undergo dialysis with a total of 3 L of ultrafiltration. The patient was started back on IV Solu-Medrol. The white cell count is 17.5, hemoglobin 9.9, platelet count is 116. Sodium level is at 129, BUN 67 with a creatinine of 4.8. He is resting comfortably in bed. He does have some mild shortness of breath even at rest. On 06/23/2024, the patient is being seen for a follow-up. The patient remains on 15 L of oxygen by nasal cannula. I was considering the possibility of interstitial edema/fluid overload contributing to the patient's shortness of breath and hypoxemia. However, despite undergoing a 3 L ultrafiltration yesterday, the patient remains hypoxic. Reviewed the CAT scan of the chest again. This may be a component of acute lung injury, and based on that, the patient was started on steroids. He remains on broad-spectrum antibiotics in addition. Oxygenation remains impaired. Nephrology on the case. Last hemodialysis was yesterday. No new labs are available from today. Resting comfortably in bed on 15 L of oxygen by nasal cannula. Remains on Zosyn and daptomycin. Objective - Vital Signs Vital signs: Vital Signs Temp 97.4 F L 06/23/24 04:49 Pulse 80 06/23/24 08:39 Resp 20 06/23/24 04:49 BP 117/56 06/23/24 04:49 Pulse Ox 89 L 06/23/24 08:24 FiO2 80 06/19/24 07:36 Intake & Output 06/22/24 06/23/24 06/23/24 18:59 06:59 18:59 Intake Total 1080 Output Total 4800 200 220 Balance -3720 -200 -220 Weight 91.5 kg Intake: Oral 480 Hemodialysis 600 Output: Urine 0 Stool 400 200 220 Hemodialysis 2500 Hemodialysis Net Amount 1900 Other: Voiding Method Urinal Urinal - Exam GENERAL EXAM: Awake, alert 73-year-old obese male, on 11/15 L of oxygen nasal cannula HEAD: Normocephalic and atraumatic EYES: Normal reaction of pupils, equal size. NOSE: Clear with pink turbinates. THROAT: No erythema or exudates. NECK: No masses, no JVD. CHEST: No chest wall deformity. LUNGS: Equal air entry with diminished lung sounds throughout. Crackles in the bilateral bases. CVS: S1 and S2 normal with no audible murmur, regular rhythm. No extra heart sounds ABDOMEN: No hepatosplenomegaly, active bowel sounds, no guarding or rigidity. Functional ileostomy SPINE: No scoliosis or deformity SKIN: Generalized erythemic plaques involving upper extremities, chest, back CENTRAL NERVOUS SYSTEM: No focal deficits, tone is normal in all 4 extremities. EXTREMITIES: Right foot is wrapped with a bandage. There is 1-2+ peripheral edema. Peripheral pulses are intact. - Labs CBC & Chem 7: 06/22/24 06:57 06/22/24 06:57 Labs: Abnormal Lab Results - Last 24 Hours (Table) 06/22/24 06/22/24 06/22/24 Range/Units 11:35 16:39 22:59 POC Glucose (mg/dL) 133 H 377 H 325 H (70-110) mg/dL 06/23/24 Range/Units 06:23 POC Glucose (mg/dL) 280 H (70-110) mg/dL Assessment and Plan Plan: Acute exacerbation of diastolic congestive heart failure versus interstitial edema secondary to chronic kidney disease and renal failure. Bilateral pneumonia cannot be completely excluded. The patient's oxygenation is improved and the patient is currently on 15 L of oxygen by nasal cannula. The patient had a follow-up chest x-ray that showed increased vascular markings secondary to volume overload. CT scan of the chest shows diffuse bilateral interstitial and airspace diseases. Exact nature of those infiltrates are not clear. Suspect interstitial edema. Infection/postinflammatory is possible although less likely. Unfortunately, no significant improvement in oxygenation with ongoing dialysis and ultrafiltration. Patient was started on steroids. Consider acute lung injury. Infectious causes of respiratory failure and bilateral pulmonary infiltrates are felt to be less likely still. Acute hypoxic respiratory failure, oxygenation is stable on 15 L of oxygen nasal cannula. Acute on chronic kidney disease now requiring renal replacement therapy that started June 10, 2024, underwent dialysis via permacath in the right IJ Hyperkalemia, improved Acute on chronic anemia secondary to above History of CAD with previous PCI Diabetes mellitus type II Hypertension Hyperlipidemia Chronic cephalgia History of UC with previous colectomy and ileostomy History of prostate cancer status post chemoradiation Chronic right heel wound, status post debridement on 05/28/2024 again today June 14, 2024 Obesity, with a BMI of 38.8 kg/m Never tobacco smoker Plan: Titrate FiO2 to maintain saturation above 90% Continue high flow oxygen at 15 L no nasal cannula Hemodialysis to be continued by nephrology. The patient has a permacath in the right IJ. Hemodialysis was performed on 06/22/2024 Anticipate improvement in his respiratory status and oxygenation with dialysis and ultrafiltration the patient is also on steroids Continue bronchodilators Continue daptomycin and Zosyn Continue IV Solu-Medrol 40 mg every 12 hours Heparin for DVT prophylaxis Protonix for GI prophylaxis We will continue to follow Time with Patient: Greater than 30
--- NOTE | 2024-06-23 14:44 | P.PN ---
Subjective Progress Note Date: 06/23/24 Principal diagnosis: Reason for follow-up is right heel diabetic foot ulcer with MRSA infection Patient is a 73-year-old male with a past medical history significant for diabetes mellitus hypertension hyperlipidemia osteomyelitis patient has been dealing with a chronic nonhealing wound to the right heel area for months now and is being treated in outpatient setting by Dr. Jernigan his fruit farmer with recent outpatient culture positive for MRSA and is Proteus. On today's evaluation that is 06/23/2024, Patient is afebrile patient is currently on 15 L high flow nasal oxygen however denies having any worsening shortness of breath, the patient denies any chest pain or cough, the patient denies any nausea vomiting did not have any abdominal pain and no diarrhea. Patient did not have lab draw today Objective - Vital Signs Vital signs: Vital Signs Temp 97.5 F L 06/23/24 08:00 Pulse 88 06/23/24 12:00 Resp 22 06/23/24 12:00 BP 117/54 06/23/24 12:00 Pulse Ox 90 L 06/23/24 12:00 FiO2 80 06/19/24 07:36 Intake & Output 06/22/24 06/23/24 06/23/24 18:59 06:59 18:59 Intake Total 1080 222 Output Total 4800 200 220 Balance -3720 -200 2 Weight 91.5 kg Intake: Oral 480 222 Hemodialysis 600 Output: Urine 0 Stool 400 200 220 Hemodialysis 2500 Hemodialysis Net Amount 1900 Other: Voiding Method Urinal Urinal Urinal - Exam GENERAL DESCRIPTION: An elderly male lying in bed in no distress RESPIRATORY SYSTEM: Unlabored breathing , decreased breath sounds at bases HEART: S1 S2 regular rate and rhythm , ABDOMEN: Soft , no tenderness EXTREMITIES: Right hand wound is currently dressed - Labs CBC & Chem 7: 06/22/24 06:57 06/22/24 06:57 Labs: Abnormal Lab Results - Last 24 Hours (Table) 06/22/24 06/22/24 06/23/24 Range/Units 16:39 22:59 06:23 POC Glucose (mg/dL) 377 H 325 H 280 H (70-110) mg/dL 06/23/24 Range/Units 11:41 POC Glucose (mg/dL) 334 H (70-110) mg/dL Assessment and Plan (1) Diabetic infection of right foot Current Visit: Yes Status: Acute Code(s): E11.628 - TYPE 2 DIABETES MELLITUS WITH OTHER SKIN COMPLICATIONS; L08.9 - LOCAL INFECTION OF THE SKIN AND SUBCUTANEOUS TISSUE, UNSP SNOMED Code(s): 817974341 (2) MRSA (methicillin resistant staph aureus) culture positive Current Visit: Yes Status: Acute Code(s): Z22.322 - CARRIER OR SUSPECTED CARRIER OF METHICILLIN RESIS STAPH SNOMED Code(s): 720794350 (3) Diabetic ulcer of right foot Current Visit: No Status: Acute Code(s): E11.621 - TYPE 2 DIABETES MELLITUS WITH FOOT ULCER; L97.519 - NON-PRS CHRONIC ULCER OTH PRT RIGHT FOOT W UNSP SEVERITY SNOMED Code(s): 976372092 (4) Stage III pressure ulcer of right heel Current Visit: No Status: Acute Code(s): L89.613 - PRESSURE ULCER OF RIGHT HEEL, STAGE 3 SNOMED Code(s): 25032449409329 Plan: 1patient with a chronic nonhealing wound to the right heel which he has for couple of months the wound looks deep with a recent culture positive for Proteus and MRSA concerning for wound infection and question for possible deeper infection such as osteomyelitis as wound has been there for couple of months now 2- x-rays of the right heel with no evidence of any bony changes 3-patient has been evaluated by Dr. Carpenter and did have surgical debridement completed on 06/07/2024 and did have a further debridement at the bedside by his fruit farmer on 06/14/2024 4-patient still have necrotic wound to the right heel he may benefit from further surgical debridement for now continue with the Santyl 5patient white count is down to 17,000 without any adjustment on his antibiotic regime as of yesterday no CBC was done today will repeat CBC tomorrow and continue with Zosyn and daptomycin while inpatient at the bedside question answered Dictation was produced using [employer] software. please excuse any grammatical, word or spelling errors. Time with Patient: Less than 30
[2024-06-23] MEDS ORDERED: FLUCONAZOLE 100 MG TAB PO PRN (14:49)
--- NOTE | 2024-06-23 14:50 | P.PN ---
Progress Note - Text Progress Note Date: 06/23/24 Chief Complaint: Short of breath Pleasant 73-year-old patient follows with Dr. Dennis. 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 Bales Chronic medical conditions include hypertension, hyperlipidemia, type 2 diabetes, mood disorder, and CAD , ostomy for 25 years, July 2023 stent to the LAD and second diagonal branch by Dr. Bales. April 26, [address] Bales: Following a non-ST relation ND: Patent stent to mid LAD. Late stent thrombosis of the second diagonal branch of the LAD. Severe disease involving the OM1 appears unchanged. Attempted balloon angioplasty performed to the second of diagonal branch with suboptimal results. Dose of Imdur was increased and Ranexa was added. Patient recently in the hospital from May 28 through May 31. Chronic headaches: MRI unremarkable. MR angio head and neck: MR angio head without contrast: No evidence of aneurysm or significant stenosis. Atrophic right A1 segment. origin of the right posterior cerebral artery.MRI of the brain nonspecific. Was seen by neurology Dr. Gay. Patient to follow-up outpatient Chronic right heel wound seen by Dr. Carpenter from vascular deep debridement was carried out. No need for antibiotics. Patient to follow-up with Dr. Jernigan at the wound center. Shortness of breath: Was seen by cardiology. Not for any further intervention. Patient doing well when discharged. Patient presented increased shortness of breath when at home. His pulse ox dropped out of the 80s. Increasing shortness of breath. Decreased appetite. No fever or chills. June 10: Using his BiPAP. Patient seen this morning. Later this afternoon. Right femoral vein dialysis catheter was placed by Dr. Carpenter from vascular for dialysis. Baseline some shortness of breath. Due for first dialysis today. Patient is right heel culture grew MRSA Proteus P Corynebacterium on May 29. Patient is on IV daptomycin and IV cefepime per ID. June 11: Patient seen this afternoon. On BiPAP. Getting hemodialysis. Remains on IV daptomycin IV Zosyn. Tired. Also getting IV iron. Patient really did not eat today. Because of BiPAP. Cut back Levemir to 26 units at night. DC scheduled NovoLog for now. June 12: Overflowing the ICU. Remains on BiPAP. 04/05/90%. at the bedside. Remains on IV daptomycin and IV Zosyn. For dialysis today. X-ray continues shows infiltrates. Significantly hypoxic. N.p.o. June 13: ICU. Remains on BiPAP. 12/6/90% moderate take anything by mouth. Spoke to the nurse have TPN lipids ordered. Remains on IV daptomycin IV Zosyn. Chest x-ray continues to show diffuse infiltrates. Continues to be followed by cardiology pulmonary ID nephrology. June 14: ICU. Later this afternoon patient was put on Airvo. 60/60. Has some delirium. Remains on IV daptomycin and IV Zosyn. Had 2 L ultrafiltration yesterday. Patient getting daily dialysis for now. As patient is oliguric per nephrology Lasix has been held. TPN was ordered yesterday per the nurse culture that returned to feed the patient. Will see how that goes. Dietitian on the case. June 15: ICU. Patient be getting hypotensive. Some medications held back by cardiology. Hemodialysis done today. Patient remains on Airvo though at 50/50. at the bedside. Plans this afternoon to get him up in the chair. Remains on daptomycin and IV Zosyn. IV Lasix been discontinued. Patient tolerating some liquid diet. June 16: Patient moved to the ICU. Remains on Airvo. 45/45. at the bedside. Tolerating full liquids. Spoke to the about the morphine. His headaches are chronic. Use Fioricet as needed. Remains on IV daptomycin and IV Zosyn. IV Solu-Medrol. Amlodipine dose cut back. PT OT. June 17: On 3 S., telemetry floor. Getting hemodialysis today. Remains on IV daptomycin IV Zosyn. On full liquid diet. Advance to ground diet. Minimal urine output. DC fluid restriction. Awake communicating. Accu-Cheks running high. Increase Levemir to 28 units subcu twice daily. Seen by PT OT. Maximum assist. On Airvo 40/40. Cut back Solu-Medrol to every 12. June 18: On a recliner. 7 L nasal cannula. Decreased appetite. at the bedside. Accu-Chek in 200s. IJ PermCath placement pending. Encourage oral intake. Ordered incentive spirometry June 19: Patient was on 7 L nasal cannula yesterday. Patient back on Airvo today. 40 L. Due for hemodialysis today. Had perm dialysis catheter placed right IJ by Dr. Carpenter today. Minimal intake today. Discussed with at the bedside. June 20: Recliner. High flow 15 L nasal cannula. at the bedside. Decreased oral intake.Tired. Hemodialysis today. June 21: Still decreased appetite. Remains on high flow 15 l nasal cannula. Remains on IV daptomycin IV Zosyn per ID. Being followed by multiple [facility] sultants spoke to the patient and . Encourage oral intake. June 22: Remains on 15 L high flow nasal cannula. at the bedside. Diet. Remains on IV daptomycin IV Zosyn. Decreased appetite. Will try ground diet. June 23: Monday to the bed. Ate a bit better according to the . Remains on 15 L nasal cannula. Oral candidiasis. Diflucan 200 mg x 1 today. Then 100 mg 3 times a week after each dialysis. Remains on daptomycin IV Zosyn per ID. Discussed with patient Active Medications Acetaminophen (Acetaminophen Tab 325 Mg Tab) 650 mg PO Q6HR PRN PRN Reason: Mild Pain or Fever > 100.5 Last Admin: 06/22/24 22:12 Dose: 650 mg Acetaminophen/Butalbital/Caffeine (Butalb/Apap/Caff 50-325-40mg Tab) 1 each PO Q4H PRN PRN Reason: Migraine Headache Albuterol/Ipratropium (Ipratropium-Albuterol 3 Ml Neb) 3 ml INHALATION RT-QID [facility] Last Admin: 06/23/24 11:38 Dose: 3 ml Albuterol/Ipratropium (Ipratropium-Albuterol 3 Ml Neb) 3 ml INHALATION RT-QID PRN PRN Reason: Shortness Of Breath Or Wheezing Allopurinol (Allopurinol 100 Mg Tab) 100 mg PO DAILY [facility] Last Admin: 06/23/24 08:54 Dose: 100 mg Amlodipine Besylate (Amlodipine 5 Mg Tab) 5 mg PO DAILY [facility] Last Admin: 06/23/24 08:54 Dose: 5 mg Aspirin (Aspirin 81 Mg) 81 mg PO DAILY [facility] Last Admin: 06/23/24 08:54 Dose: 81 mg Atorvastatin Calcium (Atorvastatin 40 Mg Tab) 40 mg PO DAILY [facility] Last Admin: 06/23/24 08:54 Dose: 40 mg Budesonide (Budesonide 1 Mg/2 Ml Nebu) 1 mg INHALATION RT-BID [facility] Last Admin: 06/23/24 08:24 Dose: 1 mg Calcitriol (Calcitriol 0.25 Mcg Cap) 0.25 mcg PO Mo@0900 [facility] Last Admin: 06/17/24 11:37 Dose: 0.25 mcg Clopidogrel Bisulfate (Clopidogrel 75 Mg Tab) 75 mg PO DAILY [facility] Last Admin: 06/23/24 08:54 Dose: 75 mg Collagenase (Collagenase 250 Unit/Gm Ointment 30 Gm Tube) 1 applic TOPICAL DAILY [facility]; Protocol Last Admin: 06/22/24 15:26 Dose: 1 applic Darbepoetin Silverio (Darbepoetin Silverio 40 Mcg/0.4 Ml Syringe) 40 mcg SQ Q7D [facility] Last Admin: 06/19/24 11:41 Dose: 40 mcg Dextrose/Water (Dextrose 50% Syringe 50 Ml) 25 ml IVP PER PROTOCOL PRN; Protocol PRN Reason: Hypoglycemia Dextrose/Water (Dextrose 50% Syringe 50 Ml) 50 ml IVP PER PROTOCOL PRN; Protocol PRN Reason: Hypoglycemia Ergocalciferol (Ergocalciferol 1,250 Mcg (50,000 Iu) Capsule) 1,250 mcg PO Q14D [facility] Last Admin: 06/19/24 11:40 Dose: 1,250 mcg Escitalopram Oxalate (Escitalopram 10 Mg Tab) 10 mg PO DAILY [facility] Last Admin: 06/23/24 08:54 Dose: 10 mg Gabapentin (Gabapentin 100 Mg Cap) 100 mg PO HS [facility] Last Admin: 06/22/24 22:11 Dose: 100 mg Haloperidol Lactate (Haloperidol Lactate 5 Mg/Ml 1 Ml Vial) 5 mg IVP ONCE PRN PRN Reason: Agitation or Acute Psychosis Last Admin: 06/14/24 23:51 Dose: 5 mg Haloperidol Lactate (Haloperidol Lactate 5 Mg/Ml 1 Ml Vial) 5 mg IVP Q8HR PRN PRN Reason: Agitation or Acute Psychosis Last Admin: 06/13/24 03:01 Dose: 5 mg Heparin Sodium (Porcine) (Heparin Sodium,Porcine 5,000 Unit/Ml 1 Ml Vial) 5,000 unit SQ Q8HR [facility] Last Admin: 06/23/24 08:53 Dose: 5,000 unit Hydralazine HCl (Hydralazine Hcl 25 Mg Tab) 25 mg PO TID [facility] Last Admin: 06/23/24 08:54 Dose: 25 mg Daptomycin 350 mg/ Sodium (Chloride) 50 mls @ 100 mls/hr IVPB Q48H [facility]; Protocol Last Admin: 06/22/24 08:57 Dose: 100 mls/hr Piperacillin Sod/Tazobactam (Sod 3.375 gm/ Sodium Chloride) 100 mls @ 25 mls/hr IVPB Q12HR [facility]; Protocol Last Admin: 06/23/24 08:53 Dose: 25 mls/hr Insulin Aspart (Insulin Aspart (Novolog) 100 Unit/Ml Vial) 0 unit SQ Q6HR [facility]; Protocol Last Admin: 06/23/24 11:49 Dose: 8 unit Insulin Glargine (Insulin Glargine (Lantus) 100 Unit/Ml Syr) 28 unit SQ BID@0700,2100 [facility] Last Admin: 06/23/24 06:52 Dose: 28 unit Isosorbide Mononitrate (Isosorbide Mononitrate Er 60 Mg Tab.Er.24h) 60 mg PO DAILY [facility] Last Admin: 06/23/24 08:54 Dose: 60 mg Methylprednisolone Sodium Succinate (Methylprednisolone Sod Succi 40 Mg/Ml 1 Ml Vial) 40 mg IV Q12HR [facility] Last Admin: 06/23/24 08:53 Dose: 40 mg Metoprolol Succinate (Metoprolol Succinate (Er) 25 Mg Tab.Er.24h) 25 mg PO DAILY [facility] Last Admin: 06/23/24 08:54 Dose: 25 mg Naloxone HCl (Naloxone 0.4 Mg/Ml 1 Ml Vial) 0.2 mg IV Q2M PRN PRN Reason: Opioid Reversal Collagenase 250 Unit /Gm Ointment 30 Gm Tube 1 each TOPICAL DAILY [facility]; Protocol Last Admin: 06/23/24 08:54 Dose: Not Given Pantoprazole Sodium (Pantoprazole 40 Mg/10 Ml Vial) 40 mg IVP DAILY [facility] Last Admin: 06/23/24 08:53 Dose: 40 mg Petrolatum (Zinc Oxide Paste (Z-Guard) 1 Applic) 1 applic TOPICAL BID [facility]; Protocol Last Admin: 06/22/24 22:11 Dose: 1 applic Ranolazine (Ranolazine 500 Mg Tab.Er.12h) 500 mg PO Q12HR [facility] Last Admin: 06/23/24 08:54 Dose: 500 mg Tamsulosin HCl (Tamsulosin 0.4 Mg Cap.Er.24h) 0.4 mg PO PC-BRKFST [facility] Last Admin: 06/23/24 08:54 Dose: 0.4 mg Triamcinolone Acetonide (Triamcinolone Acet 0.5% Cream 15 Gm Tube) 1 applic TOPICAL BID PRN; Protocol PRN Reason: rash/dry skin Social history: Non-smoking. No alcohol. On examination: VITAL SIGNS: 97.5, 88, 22, 117 x 54, 90% on 15 L GENERAL APPEARANCE: Reclining in bed. HEENT: Normal external appearance of nose and ear. Oral cavity-white spots EYES: Pupils equal. Conjunctiva normal. NECK: JVD not raised. Mass not palpable. RESPIRATORY: Respiratory effort increased lungs decreased breath sounds with some fine crackles CARDIOVASCULAR: First and second sounds normal. Minimal edema in the right leg ABDOMEN: Soft. Liver and spleen not palpable. No tenderness. No right upper quadrant tenderness. No mass palpable. Colostomy bag with liquid stool PSYCHIATRY: Answering simple questions Extremity: Right foot in dressing INVESTIGATIONS, reviewed in the clinical context: June 22: White count 7.5 hemoglobin 9.9 platelets 116 sodium 129 potassium 5. 67 creatinine 4.85 June 21: White count 20 hemoglobin 11.6 platelets 150 sodium 134 BUN 45 creatinine 3.36 June 16: White count 12.4 hemoglobin 10.1 platelets 202 sodium 128 potassium 4.4 BUN 32 creatinine 3.11 June 15: White count 9.4 hemoglobin 9.4 platelets 2 3 potassium 4.1 bicarb 25 BUN 32 creatinine 3.14 June 14: White count 16.2 hemoglobin 9.2 platelets 236 sodium 134 potassium 4.3 BUN 68 creatinine 3.26 June 13: White count 16.5 hemoglobin 9.3 platelets 273 sodium 135 potassium 4.7 BUN 38 creatinine 3.34 June 11: Potassium 4.9 BUN 108 creatinine 4.1 June 10: White count 12.8 hemoglobin 7.9 platelets 335 sodium 135 potassium 5.2 BUN 118 creatinine 4.1 June 04: White count 10.2 hemoglobin 10.4 platelet 374 sodium 135 potassium 4.6 BUN 66 creatinine 2.71 troponin I less than 0.012 proBNP 2550 EKG tracing personally reviewed by me-atrial fibrillation. Rate 68 Chest x-ray film personally reviewed by me-pulm edema Recent labs May 30: Potassium 4.7 BUN 42.3 creatinine 2.3 Assessment and plan: -Acute on chronic congestive heart failure exacerbation, from diastolic dysfunction EF 55 to 60%.: Better Received IV Lasix Started on dialysis June 10.- -Acute hypoxic respiratory failure from pulmonary edema: Slow to respond Initially BiPAP 12//90%. Then Airvo. Today high flow 15 L nasal cannula -Acute respiratory distress syndrome, multifactorial: Slowly improving On Airvo initially Received IV Solu-Medrol: Discontinued -COPD non-smoker DuoNeb 4 times daily. Nebulized Pulmicort -Chronic ostomy-functioning well -Chronic cephalgia. Patient stated headaches for greater than 6 months. Practically every day. Does not interfere with his eating. No exacerbating relieving factors: Possible tension headaches. CT scan of the brain shows some chronic changes MRI and MRI of the brain showing chronic changes. Seen by Dr. Gay from neurology a week ago. Further outpatient follow-up with neurology -Acute delirium/metabolic encephalopathy. Multifactorial: Better -Acute oropharyngeal candidiasis Diflucan 2 1 mg x 1 today. 1000 mg 3 times a week after hemodialysis -Right heel wound. Dry. Follows with Dr. Jernigan at the wound center. Dr. Carpenter from vascular-. Deep debridement carried recently Wound culture [May 29] MRSA, Proteus IV cefepime, daptomycin per ID -Chronic parastomal hernia #Hypertension: Amlodipine. Toprol-XL. Hydralazine -Acute kidney injury, likely cardiorenal: On hemodialysis Right femoral vein dialysis catheter placed by Dr. Carpenter on June 10. Hemodialysis started June 10-Daily Right IJ PermCath placement -CKD likely nephrosclerosis, diabetic nephropathy Creatinine was 1.6 on April 28, 2024. -CAD with stent Toprol-XL -Anemia in the setting of chronic kidney disease. Iron deficiency anemia. Given IV iron -Primary osteoarthritis Pain medication as needed -History of prostate cancer with radiation and chemo in 2020. #Diabetes mellitus type II, chronically on insulin: Uncontrolled with hyperglycemia Levemir to 28 units SQ every 12 #Hyperlipidemia: Lipitor #GERD: Protonix -Full code Past Medical History Past Medical History: Cancer, Chest Pain / Angina, Diabetes Mellitus, Eye Disorder, GERD/Reflux, Hyperlipidemia, Hypertension, Osteoarthritis (OA), Prostate Disorder, Renal Disease Additional Past Medical History / Comment(s): HX OF ULCERATIVE COLITIS, ileostomy PARASTOMAL HERNIA, PROSTATE CA WITH RADIATION AND CHEMO IN 2020, LOW KIDNEY FUNCTION,Covid Dec 2022, Influenza A Jun 2023, eye condition, unsure of name. History of Any Multi-Drug Resistant Organisms: MRSA Date of last positivie culture/infection: 05/24/24 MDRO Source:: rt heel, scalp Past Surgical History: Appendectomy, Bowel Resection, Heart Catheterization, Heart Catheterization With Stent Additional Past Surgical History / Comment(s): COLECTOMY, RECTUM REMOVED, ELLIOTT C ATARACTS removed, ILEOSTOMY, HERNIA SURGERY. Past Anesthesia/Blood Transfusion Reactions: No Reported Reaction Additional Past Anesthesia/Blood Transfusion Reaction / Comment(s): no problems with prior blood transfusions. Date of Last Stent Placement:: 08/01/2023 Past Psychological History: No Psychological Hx Reported Smoking Status: Never smoker Past Alcohol Use History: None Reported Past Drug Use History: None Reported
[2024-06-23] MEDS: FLUCONAZOLE 100 MG TAB PO ONE (15:33)
[2024-06-23 16:33] LABS: Glucose,Whole Blood 317 mg/dL (70-110)
[2024-06-23 23:16] LABS: Glucose,Whole Blood 224 mg/dL (70-110)
[2024-06-24 06:17] LABS: Glucose,Whole Blood 207 mg/dL (70-110)
--- NOTE | 2024-06-24 07:12 | P.PN ---
Subjective Pleasant 73-year-old patient follows with Dr. Dennis. 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 Bales Chronic medical conditions include hypertension, hyperlipidemia, type 2 diabetes, mood disorder, and CAD , ostomy for 25 years, July 2023 stent to the LAD and second diagonal branch by Dr. Bales. April 26, [address] Bales: Following a non-ST relation CT: Patent stent to mid LAD. Late stent thrombosis of the second diagonal branch of the LAD. Severe disease involving the OM1 appears unchanged. Attempted balloon angioplasty performed to the second of diagonal branch with suboptimal results. Dose of Imdur was increased and Ranexa was added. Patient recently in the hospital from May 28 through May 31. Chronic headaches: MRI unremarkable. MR angio head and neck: MR angio head without contrast: No evidence of aneurysm or significant stenosis. Atrophic right A1 segment. origin of the right posterior cerebral artery.MRI of the brain nonspecific. Was seen by neurology Dr. Gay. Patient to follow-up outpatient Chronic right heel wound seen by Dr. Carpenter from vascular deep debridement was carried out. No need for antibiotics. Patient to follow-up with Dr. Jernigan at the wound center. Shortness of breath: Was seen by cardiology. Not for any further intervention. Patient doing well when discharged. Patient presented increased shortness of breath when at home. His pulse ox dropped out of the 80s. Increasing shortness of breath. Decreased appetite. No fever or chills. June 10: Using his BiPAP. Patient seen this morning. Later this afternoon. Right femoral vein dialysis catheter was placed by Dr. Carpenter from vascular for dialysis. Baseline some shortness of breath. Due for first dialysis today. Patient is right heel culture grew MRSA Proteus P Corynebacterium on May 29. Patient is on IV daptomycin and IV cefepime per ID. June 11: Patient seen this afternoon. On BiPAP. Getting hemodialysis. Remains on IV daptomycin IV Zosyn. Tired. Also getting IV iron. Patient really did not eat today. Because of BiPAP. Cut back Levemir to 26 units at night. DC scheduled NovoLog for now. June 12: Overflowing the ICU. Remains on BiPAP. 04/05/%. at the bedside. Remains on IV daptomycin and IV Zosyn. For dialysis today. X-ray continues shows infiltrates. Significantly hypoxic. N.p.o. June 13: ICU. Remains on BiPAP. /6/90% moderate take anything by mouth. Spoke to the nurse have TPN lipids ordered. Remains on IV daptomycin IV Zosyn. Chest x-ray continues to show diffuse infiltrates. Continues to be followed by cardiology pulmonary ID nephrology. June 14: ICU. Later this afternoon patient was put on Airvo. 60/60. Has some delirium. Remains on IV daptomycin and IV Zosyn. Had 2 L ultrafiltration yesterday. Patient getting daily dialysis for now. As patient is oliguric per nephrology Lasix has been held. TPN was ordered yesterday per the nurse culture that returned to feed the patient. Will see how that goes. Dietitian on the case. June 15: ICU. Patient be getting hypotensive. Some medications held back by cardiology. Hemodialysis done today. Patient remains on Airvo though at 50/50. at the bedside. Plans this afternoon to get him up in the chair. Remains on daptomycin and IV Zosyn. IV Lasix been discontinued. Patient tolerating some liquid diet. June 16: Patient moved to the ICU. Remains on Airvo. 45/45. at the bedside. Tolerating full liquids. Spoke to the about the morphine. His headaches are chronic. Use Fioricet as needed. Remains on IV daptomycin and IV Zosyn. IV Solu-Medrol. Amlodipine dose cut back. PT OT. June 17: On 3 S., telemetry floor. Getting hemodialysis today. Remains on IV daptomycin IV Zosyn. On full liquid diet. Advance to ground diet. Minimal urine output. DC fluid restriction. Awake communicating. Accu-Cheks running high. Increase Levemir to 28 units subcu twice daily. Seen by PT OT. Maximum assist. On Airvo 40/40. Cut back Solu-Medrol to every 12. June 18: On a recliner. 7 L nasal cannula. Decreased appetite. at the bedside. Accu-Chek in 200s. IJ PermCath placement pending. Encourage oral intake. Ordered incentive spirometry June 19: Patient was on 7 L nasal cannula yesterday. Patient back on Airvo today. 40 L. Due for hemodialysis today. Had perm dialysis catheter placed right IJ by Dr. Carpenter today. Minimal intake today. Discussed with at the bedside. June 20: Recliner. High flow 15 L nasal cannula. at the bedside. Decreased oral intake.Tired. Hemodialysis today. June 21: Still decreased appetite. Remains on high flow 15 l nasal cannula. Remains on IV daptomycin IV Zosyn per ID. Being followed by multiple consultants spoke to the patient and . Encourage oral intake. June 22: Remains on 15 L high flow nasal cannula. at the bedside. Di et. Remains on IV daptomycin IV Zosyn. Decreased appetite. Will try ground diet. June 23: Monday to the bed. Ate a bit better according to the . Remains on 15 L nasal cannula. Oral candidiasis. Diflucan 200 mg x 1 today. Then 100 mg 3 times a week after each dialysis. Remains on daptomycin IV Zosyn per ID. Discussed with patient 06/24 I am resuming the care of the patient today He is sitting at the edge of the bed feels comfortable. Still requiring 15 units of oxygen, he states that he feels better than yesterday after he was started on IV Solu-Medrol 40 mg twice daily. At home he was not on oxygen Also he is on daptomycin and Diflucan. He is also on antibiotic for his right foot ulcer with dressing in place. No pain Objective - Vital Signs Vital signs: Vital Signs Temp 97.6 F 06/24/24 05:44 Pulse 68 06/24/24 05:44 Resp 20 06/24/24 05:44 BP 128/61 06/24/24 05:44 Pulse Ox 94 L 06/24/24 05:44 FiO2 80 06/19/24 07:36 Intake & Output 06/23/24 06/24/24 06/24/24 18:59 06:59 18:59 Intake Total 1222 Output Total 320 200 Balance 902 -200 Weight 89.5 kg Intake: Oral 1222 Output: Urine 0 Stool 320 200 Other: Voiding Method Urinal Urinal - Exam GENERAL: The patient is alert and oriented x3, not in any acute distress. Well developed, well nourished. HEENT: Pupils are round and equally reacting to light. EOMI. No scleral icterus. No conjunctival pallor. Normocephalic, atraumatic. No pharyngeal erythema. No thyromegaly. CARDIOVASCULAR: S1 and S2 present. No murmurs, rubs, or gallops. -PULMONARY: Chest is clear to auscultation, bilateral crackles. And scattered wheezing ABDOMEN: Soft, nontender, nondistended, normoactive bowel sounds. No palpable organomegaly. MUSCULOSKELETAL: No joint swelling or deformity. -EXTREMITIES: No cyanosis, clubbing, or pedal edema. Right foot ulcer with dressing in place NEUROLOGICAL: Gross neurological examination did not reveal any focal deficits. SKIN: No rashes. no petechiae. - Labs CBC & Chem 7: 06/22/24 06:57 06/22/24 06:57 Labs: Abnormal Lab Results - Last 24 Hours (Table) 06/23/24 06/23/24 06/23/24 Range/Units 11:41 16:32 23:15 POC Glucose (mg/dL) 334 H 317 H 224 H (70-110) mg/dL 06/24/24 Range/Units 06:16 POC Glucose (mg/dL) 207 H (70-110) mg/dL Assessment and Plan Assessment: Assessment and plan: -Acute on chronic congestive heart failure exacerbation, from diastolic dysfunction EF 55 to 60%.: Better Received IV Lasix Started on dialysis June 10. -Acute hypoxic respiratory failure from pulmonary edema: Slow to respond. Possible elements of bronchospasm Initially BiPAP 12//90%. Then Airvo. Today high flow 15 L nasal cannula -Acute respiratory distress syndrome, multifactorial: Slowly improving On Airvo initially Received IV Solu-Medrol: Discontinued and then resumed again on 06/23 -COPD non-smoker DuoNeb 4 times daily. Nebulized Pulmicort -Chronic ostomy-functioning well -Chronic cephalgia. Patient stated headaches for greater than 6 months. Practically every day. Does not interfere with his eating. No exacerbating relieving factors: Possible tension headaches. CT scan of the brain shows some chronic changes MRI and MRI of the brain showing chronic changes. Seen by Dr. Gay from neurology a week ago. Further outpatient follow-up with neurology -Acute delirium/metabolic encephalopathy. Multifactorial: Better -Acute oropharyngeal candidiasis Diflucan 2 1 mg x 1 today. 1000 mg 3 times a week after hemodialysis -Right heel wound. Dry. Follows with Dr. Jernigan at the wound center. Dr. Carpenter from vascular-. Deep debridement carried recently Wound culture [May 29] MRSA, Proteus IV cefepime, daptomycin per ID -Chronic parastomal hernia #Hypertension: Amlodipine. Toprol-XL. Hydralazine -Acute kidney injury, likely cardiorenal: On hemodialysis Right femoral vein dialysis catheter placed by Dr. Carpenter on June 10. Hemodialysis started June 10-Daily Right IJ PermCath placement -CKD likely nephrosclerosis, diabetic nephropathy Creatinine was 1.6 on April 28, 2024. -CAD with stent Toprol-XL -Anemia in the setting of chronic kidney disease. Iron deficiency anemia. Given IV iron -Primary osteoarthritis Pain medication as needed -History of prostate cancer with radiation and chemo in 2020. #Diabetes mellitus type II, chronically on insulin: Uncontrolled with hyperglycemia Levemir to 28 units SQ every 12 #Hyperlipidemia: Lipitor #GERD: Protonix -Full code
--- NOTE | 2024-06-24 12:01 | P.PN ---
Subjective Progress Note Date: 06/24/24 Patient seen for follow-up for chronic kidney disease with acute kidney injury. Initiate hemodialysis 06/10/2024. Patient is comfortable. No acute complaints at this time. Endorses producing small amounts of urine the past day or so. He remains on 15 L high flow nasal cannula. Objective - Vital Signs Vital signs: Vital Signs Temp 97.5 F L 06/24/24 07:48 Pulse 76 06/24/24 08:57 Resp 19 06/24/24 08:12 BP 105/50 06/24/24 07:48 Pulse Ox 91 L 06/24/24 07:48 FiO2 80 06/19/24 07:36 Intake & Output 06/23/24 06/24/24 06/24/24 18:59 06:59 18:59 Intake Total 1222 Output Total 320 200 Balance 902 -200 Weight 89.5 kg Intake: Oral 1222 Output: Urine 0 Stool 320 200 Other: Voiding Method Urinal Urinal Urinal - Exam Patient is awake, comfortable, no acute distress. Heart: S1 and S2 heard Lungs: Bilateral breath sounds are heard Abdomen: Soft and nontender Lower extremities: Trace edema OUTSIDE FOOD SERVER: grossly intact - Labs CBC & Chem 7: 06/24/24 15:47 06/24/24 15:47 Labs: Abnormal Lab Results - Last 24 Hours (Table) 06/23/24 06/23/24 06/23/24 Range/Units 11:41 16:32 23:15 POC Glucose (mg/dL) 334 H 317 H 224 H (70-110) mg/dL 06/24/24 Range/Units 06:16 POC Glucose (mg/dL) 207 H (70-110) mg/dL Assessment and Plan Assessment: #ROSELYN/ATN secondary to cardiorenal; start hemodialysis 06/10/2024 for worsening oliguric acute kidney injury #Acute on chronic diastolic CHF #Volume overload #Hypertension with CKD stage IV #Acute hypoxic respiratory failure secondary to CHF #CAD s/p stent placement #Metabolic acidosis maintain oral sodium bicarb - improved with dialysis #Right heel wound s/p debridement Plan: -Initiate torsemide 40 mg daily -Initiated hemodialysis 06/10/2024; continue with hemodialysis this morning - goal to remove 2 L -Hemodialysis set up as outpatient for M/W/F once discharged -Avoid nephrotoxic agents I have seen and examined the patient with resident and agree with A&P as written. Continue aranesp. add torsemide. Patient seen while undergoing HD.
[2024-06-24 12:02] LABS: Glucose,Whole Blood 199 mg/dL (70-110)
[2024-06-24] MEDS: TORSEMIDE 20 MG TAB PO SCH (12:20)
--- NOTE | 2024-06-24 14:50 | P.PN ---
Subjective Progress Note Date: 06/24/24 Principal diagnosis: Reason for follow-up is right heel diabetic foot ulcer with MRSA infection Patient is a 73-year-old male with a past medical history significant for diabetes mellitus hypertension hyperlipidemia osteomyelitis patient has been dealing with a chronic nonhealing wound to the right heel area for months now and is being treated in outpatient setting by Dr. Jernigan his flume maker with recent outpatient culture positive for MRSA and is Proteus. On today's evaluation that is 06/24/2024, patient has been afebrile, patient is breathing comfortably however still requiring high flow 15 L nasal oxygen, patient denies having any significant cough no chest pain, patient denies nausea vomiting or diarrhea and no abdominal pain, patient has been to the right heel wound area. No new lab has been obtained today Objective - Vital Signs Vital signs: Vital Signs Temp 97.5 F L 06/24/24 07:48 Pulse 84 06/24/24 11:17 Resp 18 06/24/24 11:17 BP 112/72 06/24/24 11:17 Pulse Ox 90 L 06/24/24 11:17 FiO2 80 06/19/24 07:36 Intake & Output 06/23/24 06/24/24 06/24/24 18:59 06:59 18:59 Intake Total 1222 835 Output Total 320 200 250 Balance 902 -200 585 Weight 89.5 kg Intake: Oral 1222 835 Output: Urine 0 Stool 320 200 250 Other: Voiding Method Urinal Urinal Urinal - Exam GENERAL DESCRIPTION: An elderly male lying in bed in no distress RESPIRATORY SYSTEM: Unlabored breathing , decreased breath sounds at bases HEART: S1 S2 regular rate and rhythm , ABDOMEN: Soft , no tenderness EXTREMITIES: Right hand wound is currently dressed - Labs CBC & Chem 7: 06/22/24 06:57 06/22/24 06:57 Labs: Abnormal Lab Results - Last 24 Hours (Table) 06/23/24 06/23/24 06/24/24 Range/Units 16:32 23:15 06:16 POC Glucose (mg/dL) 317 H 224 H 207 H (70-110) mg/dL 06/24/24 Range/Units 12:00 POC Glucose (mg/dL) 199 H (70-110) mg/dL Assessment and Plan (1) Diabetic infection of right foot Current Visit: Yes Status: Acute Code(s): E11.628 - TYPE 2 DIABETES MELLITUS WITH OTHER SKIN COMPLICATIONS; L08.9 - LOCAL INFECTION OF THE SKIN AND SUBCUTANEOUS TISSUE, UNSP SNOMED Code(s): 070989050 (2) MRSA (methicillin resistant staph aureus) culture positive Current Visit: Yes Status: Acute Code(s): Z22.322 - CARRIER OR SUSPECTED CARRIER OF METHICILLIN RESIS STAPH SNOMED Code(s): 723651084 (3) Diabetic ulcer of right foot Current Visit: No Status: Acute Code(s): E11.621 - TYPE 2 DIABETES MELLITUS WITH FOOT ULCER; L97.519 - NON-PRS CHRONIC ULCER OTH PRT RIGHT FOOT W UNSP SEVERITY SNOMED Code(s): 631218247 (4) Stage III pressure ulcer of right heel Current Visit: No Status: Acute Code(s): L89.613 - PRESSURE ULCER OF RIGHT HEEL, STAGE 3 SNOMED Code(s): 41121147637828 Plan: 1patient with a chronic nonhealing wound to the right heel which he has for couple of months the wound looks deep with a recent culture positive for Proteus and MRSA concerning for wound infection and question for possible deeper infection such as osteomyelitis as wound has been there for couple of months now 2- x-rays of the right heel with no evidence of any bony changes 3-patient has been evaluated by Dr. Carpenter and did have surgical debridement completed on 06/07/2024 and did have a further debridement at the bedside by his flume maker on 06/14/2024 4-patient still have necrotic wound to the right heel he may benefit from further surgical debridement for now continue with the Santyl 5patient currently being treated with Zosyn and daptomycin while inpatient we will repeat his CBC and CRP with a.m. lab, to make sure the patient white count is trending down/normalized Dictation was produced using [employer] dictation software. please excuse any grammatical, word or spelling errors. Time with Patient: Less than 30
[2024-06-24 16:08] LABS: Anisocytosis Slight; HCT 33.2 % (39.0-53.0); HGB 9.8 gm/dL (13.0-17.5); Hypochromasia Marked; MCH 29.8 pg (25.0-35.0); MCHC 29.6 g/dL (31.0-37.0); MCV 100.7 fL (80.0-100.0); Macrocytosis Moderate; Mean Platelet Volume 10.3; Platelet Count 141 k/uL (150-450); RDW 17.6 % (11.5-15.5); WBC 17.7 k/uL (3.8-10.6)
[2024-06-24 16:19] LABS: African American GFR (CKD) 23 (>60 ml/min/1.73 sqM); Anion Gap 11 mmol/L; Blood Urea Nitrogen 43 mg/dL (9-20); Calcium 8.3 mg/dL (8.4-10.2); Carbon Dioxide 25 mmol/L (22-30); Chloride 94 mmol/L (98-107); Glucose 198 mg/dL (74-99); Non-African American GFR(CKD) 20 (>60 ml/min/1.73 sqM); Phosphorus 5.1 mg/dL (2.5-4.5); Sodium 130 mmol/L (137-145)
--- NOTE | 2024-06-24 17:43 | P.PN ---
Subjective Progress Note Date: 06/24/24 Principal diagnosis: Acute on chronic diastolic congestive heart failure and acute hypoxic respiratory failure Patient is a 73-year-old male with past medical history significant for hypertension, hyperlipidemia, coronary artery disease with previous PCI/stenting, heart failure, chronic kidney disease, diabetes mellitus, chronic right heel wound, ulcerative colitis with previous colectomy and ileostomy. Of note, patient had a recent hospitalization late May and was just discharged 05/31/2024 for CHF exacerbation. Echocardiogram done during this hospitalization estimating a preserved left ventricular ejection fraction of 55 to 60%. Limited study, but no acute valvular abnormalities reported. Presented the emergency department on 06/04/2024 with a chief complaint of shortness of breath, mostly on exertion. Chest x-ray showing cardiomegaly, mild pulmonary vascular congestion, and a small pleural effusion on the left. NT proBNP elevated 2550. Currently receiving Lasix 80 mg twice daily. CBC: WBC count 10.2, hemoglobin 10.4, hematocrit 32.5, platelets 374. CMP: Sodium 135, potassium 4.6, chloride 101, serum bicarb 18, BUN 66, creatinine 2.71, glucose 139. Troponin is less than 0.012. Patient currently being evaluated on the general medical floor. Appears weak and deconditioned. He is resting in bed on 1 L/min nasal cannula. No respiratory distress noted. Complaining of a generalized headache, which he states is chronic. States that he has been short of breath on exertion for several months to almost 1 year. Particularly on exertion such as climbing stairs or walking to the bathroom. Denies history of COPD or asthma. Never tobacco smoker. Worked in an [employer] shop before he retired. Denies cough. Denies infectious-like symptoms. Current vital signs: Temperature 98 F, heart rate 78 bpm, blood pressure 145/54 mmHg, nontachypneic, SpO2 recorded at 91% on 1 L/min nasal cannula. On 06/21/2024, the patient is being seen for a follow-up. Remains on 15 L of oxygen by nasal cannula. Underwent hemodialysis yesterday and there is no considerable improvement in the patient's oxygenation. At the same time, the follow-up chest x-ray that was done today showed airspace opacities and bilateral pleural effusions. Although CHF and volume overload is highly suspected. Nevertheless, the response to d dialysis has been suboptimal for now. The patient is comfortable. He is feeling a bit weak. He has a right IJ permacath in place. He remains on a combination of Zosyn and daptomycin for a wound infection and ID is on the case. Urine output is minimal at this point in time. Remains on bronchodilators. Rest of the medications remain unchanged. The white cell count of 20 with a hemoglobin of 11.6 and a platelet count of 150 . BUN is 45 with a creatinine of 3.3 and a sodium levels at 134 and potassium level is at 5.3. No other significant events overnight. Discussed the case with the medical team. On 06/22/2024, the patient remains on 15 l of oxygen by nasal cannula. A CAT scan of the chest was done yesterday and the CAT scan showed diffuse bilateral groundglass and airspace opacities throughout the lungs bilaterally consistent with pulmonary edema although atypical infections/acute lung injury cannot be completely ruled out. He has mild to moderate cardiomegaly and cholelithiasis. I suspect those findings are related to interstitial edema and the patient with further respond to dialysis and ultrafiltration. The plan for now is to undergo dialysis with a total of 3 L of ultrafiltration. The patient was started back on IV Solu-Medrol. The white cell count is 17.5, hemoglobin 9.9, platelet count is 116. Sodium level is at 129, BUN 67 with a creatinine of 4.8. He is resting comfortably in bed. He does have some mild shortness of breath even at rest. On 06/23/2024, the patient is being seen for a follow-up. The patient remains on 15 L of oxygen by nasal cannula. I was considering the possibility of interstitial edema/fluid overload contributing to the patient's shortness of breath and hypoxemia. However, despite undergoing a 3 L ultrafiltration yesterday, the patient remains hypoxic. Reviewed the CAT scan of the chest again. This may be a component of acute lung injury, and based on that, the patient was started on steroids. He remains on broad-spectrum antibiotics in addition. Oxygenation remains impaired. Nephrology on the case. Last hemodialysis was yesterday. No new labs are available from today. Resting comfortably in bed on 15 L of oxygen by nasal cannula. Remains on Zosyn and daptomycin. Patient was seen today on 06/24/2024, patient remains on 15 L high flow nasal cannula, surprisingly the patient tells me that he is feeling better, patient was started 2 days ago on dialysis/ultrafiltration, seems to be helping the patient significantly. His urine output is very marginal today. Patient remains on broad-spectrum antibiotics, he is being followed by many consultants including nephrology, patient remains on Zosyn and daptomycin. WBC count 17.7 hemoglobin 9.8 electrolytes showed low sodium of 130 potassium 6 BUN is 43 creatinine 2.97. To the right heel area for months now, and has been treated on outpatient setting for culture positive MRSA and positive for Proteus. Patient clearly has diabetic foot infection, and diabetic right foot ulcer. As well as stage III pressure ulcer of the right heel. Objective - Vital Signs Vital signs: Vital Signs Temp 97.4 F L 06/24/24 17:01 Pulse 80 06/24/24 15:59 Resp 20 06/24/24 17:01 BP 115/54 06/24/24 17:01 Pulse Ox 93 L 06/24/24 17:01 FiO2 80 06/19/24 07:36 Intake & Output 06/23/24 06/24/24 06/24/24 18:59 06:59 18:59 Intake Total 1222 2735 Output Total 838 910 2476 Balance 902 -200 585 Weight 89.5 kg 89.5 kg Intake: Oral 1222 835 Hemodialysis 1900 Output: Urine 0 Stool 320 200 250 Hemodialysis 400 Hemodialysis Net Amount 1500 Other: Voiding Method Urinal Urinal Urinal - Exam GENERAL: The patient is alert and oriented x3, not in any acute distress. Well developed, well nourished., On 15 L high flow nasal cannula HEENT: Pupils are round and equally reacting to light. EOMI. No scleral icterus. CARDIOVASCULAR: S1 and S2 present. No murmurs, rubs, or gallops. PULMONARY: Crackles and wheezes noted bilaterally ABDOMEN: Soft, nontender, nondistended, normoactive bowel sounds. No palpable organomegaly. MUSCULOSKELETAL: No joint swelling or deformity. -EXTREMITIES: No cyanosis, clubbing, or pedal edema. Right foot ulcer with dressing in place NEUROLOGICAL: Gross neurological examination did not reveal any focal deficits. SKIN: His wounds are dressed, could not be seen.Right foot is wrapped with a bandage. There is 1-2+ peripheral edema. Peripheral pulses are intact. - Labs CBC & Chem 7: 06/24/24 15:47 06/24/24 15:47 Labs: Abnormal Lab Results - Last 24 Hours (Table) 06/23/24 06/24/24 06/24/24 Range/Units 23:15 06:16 12:00 WBC (3.8-10.6) k/uL RBC (4.30-5.90) m/uL Hgb (13.0-17.5) gm/dL Hct (39.0-53.0) % MCV (80.0-100.0) fL MCHC (31.0-37.0) g/dL RDW (11.5-15.5) % Plt Count (150-450) k/uL Sodium (137-145) mmol/L Potassium (3.5-5.1) mmol/L Chloride (98-107) mmol/L BUN (9-20) mg/dL Creatinine (0.66-1.25) mg/dL Glucose (74-99) mg/dL POC Glucose (mg/dL) 224 H 207 H 199 H (70-110) mg/dL Calcium (8.4-10.2) mg/dL Phosphorus (2.5-4.5) mg/dL 06/24/24 06/24/24 Range/Units 15:47 15:47 WBC 17.7 H (3.8-10.6) k/uL RBC 3.30 L (4.30-5.90) m/uL Hgb 9.8 L (13.0-17.5) gm/dL Hct 33.2 L (39.0-53.0) % MCV 100.7 H (80.0-100.0) fL MCHC 29.6 L (31.0-37.0) g/dL RDW 17.6 H (11.5-15.5) % Plt Count 141 L (150-450) k/uL Sodium 130 L (137-145) mmol/L Potassium 6.0 H (3.5-5.1) mmol/L Chloride 94 L (98-107) mmol/L BUN 43 H (9-20) mg/dL Creatinine 2.97 H (0.66-1.25) mg/dL Glucose 198 H (74-99) mg/dL POC Glucose (mg/dL) (70-110) mg/dL Calcium 8.3 L (8.4-10.2) mg/dL Phosphorus 5.1 H (2.5-4.5) mg/dL Assessment and Plan Assessment: Impression: Acute exacerbation of diastolic congestive heart failure versus interstitial edema secondary to chronic kidney disease and renal failure. Bilateral pneumonia cannot be completely excluded. Acute hypoxic respiratory failure, oxygenation is stable on 15 L of oxygen nasal cannula. Acute on chronic kidney disease now requiring renal replacement therapy that started June 10, 2024, underwent dialysis via permacath in the right IJ Hyperkalemia, improved Acute on chronic anemia secondary to above History of CAD with previous PCIDiabetes mellitus type II Hypertension Hyperlipidemia Chronic cephalgia History of UC with previous colectomy and ileostomy History of prostate cancer status post chemoradiation Chronic right heel wound, status post debridement on 05/28/2024 again today June 14, 2024 Obesity, with a BMI of 38.8 kg/m Recommendation: Continue oxygen and titrate accordingly presently on 15 L high flow nasal cannula Continue hemodialysis as he seems to be improving after hemodialysis for the last 2 days Continue bronchodilators Continue daptomycin and Zosyn Continue IV Solu-Medrol 40 mg IV push every 12 hours Continue GI and DVT prophylaxis Patient remains quite ill, not quite ready for discharge planning Will continue to follow with other consultants Time with Patient: Less than 30
[2024-06-24 18:30] LABS: Glucose,Whole Blood 302 mg/dL (70-110)
[2024-06-24] MEDS: SODIUM ZIRCONIUM CYCLOSILICATE 10 GM PACKET PO ONE (18:47)
[2024-06-24] MEDS: DEXTROSE 50% SYRINGE 50 ML IVP STA ×2 (18:47→22:48)
[2024-06-24] MEDS: CALCIUM GLUCONATE IN NACL 1 GM in SALINE 1 100ML.BAG IVPB ONE ×2 (18:47→23:13)
[2024-06-24] MEDS: INSULIN REGULAR 100 UNIT/ML VIAL (IV) IV ONE ×2 (18:50→22:48)
[2024-06-24 22:49] LABS: Glucose,Whole Blood 141 mg/dL (70-110)
[2024-06-25 00:04] LABS: Glucose,Whole Blood 185 mg/dL (70-110)
[2024-06-25 05:59] LABS: Glucose,Whole Blood 169 mg/dL (70-110)
[2024-06-25 07:27] LABS: ALT 26 U/L (4-49); AST 23 U/L (17-59); African American GFR (CKD) 27 (>60 ml/min/1.73 sqM); Albumin 3.2 g/dL (3.5-5.0); Alkaline Phosphatase 151 U/L (38-126); Anion Gap 11 mmol/L; Blood Urea Nitrogen 37 mg/dL (9-20); Calcium 8.6 mg/dL (8.4-10.2); Carbon Dioxide 27 mmol/L (22-30); Chloride 94 mmol/L (98-107); Glucose 134 mg/dL (74-99); Non-African American GFR(CKD) 24 (>60 ml/min/1.73 sqM); Potassium 4.9 mmol/L (3.5-5.1); Sodium 132 mmol/L (137-145); Total Bilirubin 0.8 mg/dL (0.2-1.3); Total Protein 6.3 g/dL (6.3-8.2)
[2024-06-25 08:05] LABS: Anisocytosis Slight; Basophils # (A) 0.1 k/uL (0-0.2); Basophils % (A) 0 %; Eosinophils % (A) 0 %; HCT 37.8 % (39.0-53.0); HGB 11.2 gm/dL (13.0-17.5); Hypochromasia Marked; Lymphocytes # (A) 0.1 k/uL (1.0-4.8); Lymphocytes % (A) 1 %; MCH 30.7 pg (25.0-35.0); MCHC 29.5 g/dL (31.0-37.0); MCV 104.1 fL (80.0-100.0); Macrocytosis Moderate; Mean Platelet Volume 11.2; Monocytes # (A) 0.7 k/uL (0-1.0); Monocytes % (A) 3 %; Neutrophils # (A) 22.1 k/uL (1.3-7.7); Neutrophils % (A) 96 %; Platelet Count 128 k/uL (150-450); RBC 3.63 m/uL (4.30-5.90); RDW 17.8 % (11.5-15.5)
[2024-06-25] MEDS: amLODIPine 10 MG TAB PO SCH (08:24)
--- NOTE | 2024-06-25 08:54 | P.PN ---
Subjective Pleasant 73-year-old patient follows with Dr. Dennis. Nurse Research: Dr. Bales Chronic medical conditions include hypertension, hyperlipidemia, type 2 diabetes, mood disorder, and CAD , ostomy for 25 years, July 2023 stent to the LAD and second diagonal branch by Dr. Bales. April 26, [address] Bales: Following a non-ST relation [place]: Patent stent to mid LAD. Late stent thrombosis of the second diagonal branch of the LAD. Severe disease involving the OM1 appears unchanged. Attempted balloon angioplasty performed to the second of diagonal branch with suboptimal results. Dose of Imdur was increased and Ranexa was added. Patient recently in the hospital from May 28 through May 31. Chronic headaches: MRI unremarkable. MR angio head and neck: MR angio head without contrast: No evidence of aneurysm or significant stenosis. Atrophic right A1 segment. origin of the right posterior cerebral artery.MRI of the brain nonspecific. Was seen by neurology Dr. Gay. Patient to follow-up outpatient Chronic right heel wound seen by Dr. Carpenter from vascular deep debridement was carried out. No need for antibiotics. Patient to follow-up with Dr. Jernigan at the wound center. Shortness of breath: Was seen by cardiology. Not for any further intervention. Patient doing well when discharged. Patient presented increased shortness of breath when at home. His pulse ox dropped out of the 80s. Increasing shortness of breath. Decreased appetite. No fever or chills. June 10: Using his BiPAP. Patient seen this morning. Later this afternoon. Right femoral vein dialysis catheter was placed by Dr. Carpenter from vascular for dialysis. Baseline some shortness of breath. Due for first dialysis today. Patient is right heel culture grew MRSA Proteus P Corynebacterium on May 29. Patient is on IV daptomycin and IV cefepime per ID. June 11: Patient seen this afternoon. On BiPAP. Getting hemodialysis. Remains on IV daptomycin IV Zosyn. Tired. Also getting IV iron. Patient really did not eat today. Because of BiPAP. Cut back Levemir to 26 units at night. DC scheduled NovoLog for now. June 12: Overflowing the ICU. Remains on BiPAP. 04/05/%. at the bedside. Remains on IV daptomycin and IV Zosyn. For dialysis today. X-ray continues shows infiltrates. Significantly hypoxic. N.p.o. June 13: ICU. Remains on BiPAP. /6/90% moderate take anything by mouth. Spoke to the nurse have TPN lipids ordered. Remains on IV daptomycin IV Zosyn. Chest x-ray continues to show diffuse infiltrates. Continues to be followed by cardiology pulmonary ID nephrology. June 14: ICU. Later this afternoon patient was put on Airvo. 60/60. Has some delirium. Remains on IV daptomycin and IV Zosyn. Had 2 L ultrafiltration yesterday. Patient getting daily dialysis for now. As patient is oliguric per nephrology Lasix has been held. TPN was ordered yesterday per the nurse culture that returned to feed the patient. Will see how that goes. Dietitian on the case. June 15: ICU. Patient be getting hypotensive. Some medications held back by cardiology. Hemodialysis done today. Patient remains on Airvo though at 50/50. at the bedside. Plans this afternoon to get him up in the chair. Remains on daptomycin and IV Zosyn. IV Lasix been discontinued. Patient tolerating some liquid diet. June 16: Patient moved to the ICU. Remains on Airvo. 45/45. at the bedside. Tolerating full liquids. Spoke to the about the morphine. His headaches are chronic. Use Fioricet as needed. Remains on IV daptomycin and IV Zosyn. IV Solu-Medrol. Amlodipine dose cut back. PT OT. June 17: On 3 S., telemetry floor. Getting hemodialysis today. Remains on IV daptomycin IV Zosyn. On full liquid diet. Advance to ground diet. Minimal urine output. DC fluid restriction. Awake communicating. Accu-Cheks running high. Increase Levemir to 28 units subcu twice daily. Seen by PT OT. Maximum assist. On Airvo 40/40. Cut back Solu-Medrol to every 12. June 18: On a recliner. 7 L nasal cannula. Decreased appetite. at the bedside. Accu-Chek in 200s. IJ PermCath placement pending. Encourage oral intake. Ordered incentive spirometry June 19: Patient was on 7 L nasal cannula yesterday. Patient back on Airvo today. 40 L. Due for hemodialysis today. Had perm dialysis catheter placed right IJ by Dr. Carpenter today. Minimal intake today. Discussed with at the bedside. June 20: Recliner. High flow 15 L nasal cannula. at the bedside. Decreased oral intake.Tired. Hemodialysis today. June 21: Still decreased appetite. Remains on high flow 15 l nasal cannula. Remains on IV daptomycin IV Zosyn per ID. Being followed by multiple consultants spoke to the patient and . Encourage oral intake. June 22: Remains on 15 L high flow nasal cannula. at the bedside. Di et. Remains on IV daptomycin IV Zosyn. Decreased appetite. Will try ground diet. June 23: Monday to the bed. Ate a bit better according to the . Remains on 15 L nasal cannula. Oral candidiasis. Diflucan 200 mg x 1 today. Then 100 mg 3 times a week after each dialysis. Remains on daptomycin IV Zosyn per ID. Discussed with patient 06/24 I am resuming the care of the patient today He is sitting at the edge of the bed feels comfortable. Still requiring 15 units of oxygen, he states that he feels better than yesterday after he was started on IV Solu-Medrol 40 mg twice daily. At home he was not on oxygen Also he is on daptomycin and Diflucan. He is also on antibiotic for his right foot ulcer with dressing in place. No pain 06/25 Patient feels the same Oxygen requirements down from 15 down to 12 L/min His labs showing more hemoconcentration with leukocytosis 23K, hemoglobin 12.2 and platelet 128 all went up little bit. Creatinine 2.5. Sodium improved 132 He remains on Zosyn daptomycin and fluconazole and IV Solu-Medrol 40 mg twice daily Objective - Vital Signs Vital signs: Vital Signs Temp 97.7 F 06/25/24 07:42 Pulse 88 06/25/24 08:37 Resp 19 06/25/24 07:42 BP 116/51 06/25/24 07:42 Pulse Ox 95 06/25/24 08:18 FiO2 80 06/19/24 07:36 Intake & Output 06/24/24 06/25/24 06/25/24 18:59 06:59 18:59 Intake Total 2975 500 Output Total 2350 2700 150 Balance 625 -2200 -150 Weight 89.5 kg Intake: Oral 1075 Hemodialysis 1900 500 Output: Stool 450 200 150 Hemodialysis 400 1500 Hemodialysis Net Amount 1500 1000 Other: Voiding Method Urinal Urinal Urinal # Voids 0 # Bowel Movements 0 - Exam GENERAL: The patient is alert and oriented x3, not in any acute distress. Well developed, well nourished. HEENT: Pupils are round and equally reacting to light. EOMI. No scleral icterus. No conjunctival pallor. Normocephalic, atraumatic. No pharyngeal erythema. No thyromegaly. CARDIOVASCULAR: S1 and S2 present. No murmurs, rubs, or gallops. -PULMONARY: Chest is clear to auscultation, bilateral crackles. And scattered wheezing ABDOMEN: Soft, nontender, nondistended, normoactive bowel sounds. No palpable organomegaly. MUSCULOSKELETAL: No joint swelling or deformity. -EXTREMITIES: No cyanosis, clubbing, or pedal edema. Right foot ulcer with dressing in place NEUROLOGICAL: Gross neurological examination did not reveal any focal deficits. SKIN: No rashes. no petechiae. - Labs CBC & Chem 7: 06/25/24 05:35 06/25/24 05:35 Labs: Abnormal Lab Results - Last 24 Hours (Table) 06/24/24 06/24/24 06/24/24 Range/Units 12:00 15:47 15:47 WBC 17.7 H (3.8-10.6) k/uL RBC 3.30 L (4.30-5.90) m/uL Hgb 9.8 L (13.0-17.5) gm/dL Hct 33.2 L (39.0-53.0) % MCV 100.7 H (80.0-100.0) fL MCHC 29.6 L (31.0-37.0) g/dL RDW 17.6 H (11.5-15.5) % Plt Count 141 L (150-450) k/uL Neutrophils # (1.3-7.7) k/uL Lymphocytes # (1.0-4.8) k/uL ABG Lactic Acid (0.5-1.6) mmol/L Sodium 130 L (137-145) mmol/L Potassium 6.0 H (3.5-5.1) mmol/L Chloride 94 L (98-107) mmol/L BUN 43 H (9-20) mg/dL Creatinine 2.97 H (0.66-1.25) mg/dL Glucose 198 H (74-99) mg/dL POC Glucose (mg/dL) 199 H (70-110) mg/dL Calcium 8.3 L (8.4-10.2) mg/dL Phosphorus 5.1 H (2.5-4.5) mg/dL Alkaline Phosphatase (38-126) U/L C-Reactive Protein (<1.0) mg/dL Albumin (3.5-5.0) g/dL 06/24/24 06/24/24 06/24/24 Range/Units 17:52 18:29 21:25 WBC (3.8-10.6) k/uL RBC (4.30-5.90) m/uL Hgb (13.0-17.5) gm/dL Hct (39.0-53.0) % MCV (80.0-100.0) fL MCHC (31.0-37.0) g/dL RDW (11.5-15.5) % Plt Count (150-450) k/uL Neutrophils # (1.3-7.7) k/uL Lymphocytes # (1.0-4.8) k/uL ABG Lactic Acid (0.5-1.6) mmol/L Sodium (137-145) mmol/L Potassium 6.1 H* 6.1 H* (3.5-5.1) mmol/L Chloride (98-107) mmol/L BUN (9-20) mg/dL Creatinine (0.66-1.25) mg/dL Glucose (74-99) mg/dL POC Glucose (mg/dL) 302 H (70-110) mg/dL Calcium (8.4-10.2) mg/dL Phosphorus (2.5-4.5) mg/dL Alkaline Phosphatase (38-126) U/L C-Reactive Protein (<1.0) mg/dL Albumin (3.5-5.0) g/dL 06/24/24 06/25/24 06/25/24 Range/Units 22:46 00:01 02:00 WBC (3.8-10.6) k/uL RBC (4.30-5.90) m/uL Hgb (13.0-17.5) gm/dL Hct (39.0-53.0) % MCV (80.0-100.0) fL MCHC (31.0-37.0) g/dL RDW (11.5-15.5) % Plt Count (150-450) k/uL Neutrophils # (1.3-7.7) k/uL Lymphocytes # (1.0-4.8) k/uL ABG Lactic Acid 1.7 H (0.5-1.6) mmol/L Sodium (137-145) mmol/L Potassium (3.5-5.1) mmol/L Chloride (98-107) mmol/L BUN (9-20) mg/dL Creatinine (0.66-1.25) mg/dL Glucose (74-99) mg/dL POC Glucose (mg/dL) 141 H 185 H (70-110) mg/dL Calcium (8.4-10.2) mg/dL Phosphorus (2.5-4.5) mg/dL Alkaline Phosphatase (38-126) U/L C-Reactive Protein (<1.0) mg/dL Albumin (3.5-5.0) g/dL 06/25/24 06/25/24 06/25/24 Range/Units 05:35 05:35 05:55 WBC 23.0 H (3.8-10.6) k/uL RBC 3.63 L (4.30-5.90) m/uL Hgb 11.2 L (13.0-17.5) gm/dL Hct 37.8 L (39.0-53.0) % MCV 104.1 H (80.0-100.0) fL MCHC 29.5 L (31.0-37.0) g/dL RDW 17.8 H (11.5-15.5) % Plt Count 128 L (150-450) k/uL Neutrophils # 22.1 H (1.3-7.7) k/uL Lymphocytes # 0.1 L (1.0-4.8) k/uL ABG Lactic Acid (0.5-1.6) mmol/L Sodium 132 L (137-145) mmol/L Potassium (3.5-5.1) mmol/L Chloride 94 L (98-107) mmol/L BUN 37 H (9-20) mg/dL Creatinine 2.56 H (0.66-1.25) mg/dL Glucose 134 H (74-99) mg/dL POC Glucose (mg/dL) 169 H (70-110) mg/dL Calcium (8.4-10.2) mg/dL Phosphorus (2.5-4.5) mg/dL Alkaline Phosphatase 151 H (38-126) U/L C-Reactive Protein 4.0 H (<1.0) mg/dL Albumin 3.2 L (3.5-5.0) g/dL Assessment and Plan Assessment: Assessment and plan: -Acute on chronic congestive heart failure exacerbation, from diastolic dysfunction EF 55 to 60%.: Better Received IV Lasix Started on dialysis June 10. -Acute hypoxic respiratory failure from pulmonary edema: Slow to respond. Possible elements of bronchospasm Initially BiPAP 12/6/90%. Then Airvo. Today high flow 15 L nasal cannula -Acute respiratory distress syndrome, multifactorial: Slowly improving On Airvo initially Received IV Solu-Medrol: Discontinued and then resumed again on 06/23 -COPD non-smoker DuoNeb 4 times daily. Nebulized Pulmicort Started on IV Solu-Medrol 40 mg twice daily -Chronic ostomy-functioning well -Chronic cephalgia. Patient stated headaches for greater than 6 months. Practically every day. Does not interfere with his eating. No exacerbating relieving factors: Possible tension headaches. CT scan of the brain shows some chronic changes MRI and MRI of the brain showing chronic changes. Seen by Dr. Gay from neurology a week ago. Further outpatient follow-up with neurology -Acute delirium/metabolic encephalopathy. Multifactorial: Better -Acute oropharyngeal candidiasis Diflucan 2 1 mg x 1 today. 1000 mg 3 times a week after hemodialysis -Right heel wound. Dry. Follows with Dr. Jernigan at the wound center. Dr. Carpenter from vascular-. Deep debridement carried recently Wound culture [May 29] MRSA, Proteus IV cefepime, daptomycin per ID -Chronic parastomal hernia #Hypertension: Amlodipine. Toprol-XL. Hydralazine -Acute kidney injury, likely cardiorenal: On hemodialysis Right femoral vein dialysis catheter placed by Dr. Carpenter on June 10. Hemodialysis started June 10-Daily Right IJ PermCath placement -CKD likely nephrosclerosis, diabetic nephropathy Creatinine was 1.6 on April 28, 2024. -CAD with stent Toprol-XL -Anemia in the setting of chronic kidney disease. Iron deficiency anemia. Given IV iron -Primary osteoarthritis Pain medication as needed -History of prostate cancer with radiation and chemo in 2020. #Diabetes mellitus type II, chronically on insulin: Uncontrolled with hyperglycemia Levemir to 28 units SQ every 12 #Hyperlipidemia: Lipitor #GERD: Protonix -Full code
[2024-06-25 09:36] LABS: Glucose,Whole Blood 161 mg/dL (70-110)
--- NOTE | 2024-06-25 11:55 | P.PN ---
Subjective Progress Note Date: 06/25/24 Patient seen for follow-up for chronic kidney disease with acute kidney injury. Initiate hemodialysis 06/10/2024. Patient is comfortable. No acute complaints at this time. Endorses producing small amounts of urine the past day or so. He remains on 12 L high flow nasal cannula. Objective - Vital Signs Vital signs: Vital Signs Temp 97.7 F 06/25/24 07:42 Pulse 88 06/25/24 08:37 Resp 19 06/25/24 07:42 BP 116/51 06/25/24 07:42 Pulse Ox 94 L 06/25/24 08:53 FiO2 80 06/19/24 07:36 Intake & Output 06/24/24 06/25/24 06/25/24 18:59 06:59 18:59 Intake Total 2975 500 Output Total 2350 2700 150 Balance 625 -2200 -150 Weight 89.5 kg Intake: Oral 1075 Hemodialysis 1900 500 Output: Stool 450 200 150 Hemodialysis 400 1500 Hemodialysis Net Amount 1500 1000 Other: Voiding Method Urinal Urinal Urinal # Voids 0 # Bowel Movements 0 - Exam Patient is awake, comfortable, no acute distress. Heart: S1 and S2 heard Lungs: Bilateral breath sounds are heard Abdomen: Soft and nontender Lower extremities: Trace edema EHS SPECIALIST: grossly intact - Labs CBC & Chem 7: 06/25/24 05:35 06/25/24 05:35 Labs: Abnormal Lab Results - Last 24 Hours (Table) 06/24/24 06/24/24 06/24/24 Range/Units 12:00 15:47 15:47 WBC 17.7 H (3.8-10.6) k/uL RBC 3.30 L (4.30-5.90) m/uL Hgb 9.8 L (13.0-17.5) gm/dL Hct 33.2 L (39.0-53.0) % MCV 100.7 H (80.0-100.0) fL MCHC 29.6 L (31.0-37.0) g/dL RDW 17.6 H (11.5-15.5) % Plt Count 141 L (150-450) k/uL Neutrophils # (1.3-7.7) k/uL Lymphocytes # (1.0-4.8) k/uL ABG Lactic Acid (0.5-1.6) mmol/L Sodium 130 L (137-145) mmol/L Potassium 6.0 H (3.5-5.1) mmol/L Chloride 94 L (98-107) mmol/L BUN 43 H (9-20) mg/dL Creatinine 2.97 H (0.66-1.25) mg/dL Glucose 198 H (74-99) mg/dL POC Glucose (mg/dL) 199 H (70-110) mg/dL Calcium 8.3 L (8.4-10.2) mg/dL Phosphorus 5.1 H (2.5-4.5) mg/dL Alkaline Phosphatase (38-126) U/L C-Reactive Protein (<1.0) mg/dL Albumin (3.5-5.0) g/dL 06/24/24 06/24/24 06/24/24 Range/Units 17:52 18:29 21:25 WBC (3.8-10.6) k/uL RBC (4.30-5.90) m/uL Hgb (13.0-17.5) gm/dL Hct (39.0-53.0) % MCV (80.0-100.0) fL MCHC (31.0-37.0) g/dL RDW (11.5-15.5) % Plt Count (150-450) k/uL Neutrophils # (1.3-7.7) k/uL Lymphocytes # (1.0-4.8) k/uL ABG Lactic Acid (0.5-1.6) mmol/L Sodium (137-145) mmol/L Potassium 6.1 H* 6.1 H* (3.5-5.1) mmol/L Chloride (98-107) mmol/L BUN (9-20) mg/dL Creatinine (0.66-1.25) mg/dL Glucose (74-99) mg/dL POC Glucose (mg/dL) 302 H (70-110) mg/dL Calcium (8.4-10.2) mg/dL Phosphorus (2.5-4.5) mg/dL Alkaline Phosphatase (38-126) U/L C-Reactive Protein (<1.0) mg/dL Albumin (3.5-5.0) g/dL 06/24/24 06/25/2425 Range/Units 22:46 00:01 01:16 WBC (3.8-10.6) k/uL RBC (4.30-5.90) m/uL Hgb (13.0-17.5) gm/dL Hct (39.0-53.0) % MCV (80.0-100.0) fL MCHC (31.0-37.0) g/dL RDW (11.5-15.5) % Plt Count (150-450) k/uL Neutrophils # (1.3-7.7) k/uL Lymphocytes # (1.0-4.8) k/uL ABG Lactic Acid (0.5-1.6) mmol/L Sodium (137-145) mmol/L Potassium (3.5-5.1) mmol/L Chloride (98-107) mmol/L BUN (9-20) mg/dL Creatinine (0.66-1.25) mg/dL Glucose (74-99) mg/dL POC Glucose (mg/dL) 141 H 185 H 161 H (70-110) mg/dL Calcium (8.4-10.2) mg/dL Phosphorus (2.5-4.5) mg/dL Alkaline Phosphatase (38-126) U/L C-Reactive Protein (<1.0) mg/dL Albumin (3.5-5.0) g/dL 06/25/24 06/25/24 06/25/24 Range/Units 02:00 05:35 05:35 WBC 23.0 H (3.8-10.6) k/uL RBC 3.63 L (4.30-5.90) m/uL Hgb 11.2 L (13.0-17.5) gm/dL Hct 37.8 L (39.0-53.0) % MCV 104.1 H (80.0-100.0) fL MCHC 29.5 L (31.0-37.0) g/dL RDW 17.8 H (11.5-15.5) % Plt Count 128 L (150-450) k/uL Neutrophils # 22.1 H (1.3-7.7) k/uL Lymphocytes # 0.1 L (1.0-4.8) k/uL ABG Lactic Acid 1.7 H (0.5-1.6) mmol/L Sodium 132 L (137-145) mmol/L Potassium (3.5-5.1) mmol/L Chloride 94 L (98-107) mmol/L BUN 37 H (9-20) mg/dL Creatinine 2.56 H (0.66-1.25) mg/dL Glucose 134 H (74-99) mg/dL POC Glucose (mg/dL) (70-110) mg/dL Calcium (8.4-10.2) mg/dL Phosphorus (2.5-4.5) mg/dL Alkaline Phosphatase 151 H (38-126) U/L C-Reactive Protein 4.0 H (<1.0) mg/dL Albumin 3.2 L (3.5-5.0) g/dL 06/25/24 Range/Units 05:55 WBC (3.8-10.6) k/uL RBC (4.30-5.90) m/uL Hgb (13.0-17.5) gm/dL Hct (39.0-53.0) % MCV (80.0-100.0) fL MCHC (31.0-37.0) g/dL RDW (11.5-15.5) % Plt Count (150-450) k/uL Neutrophils # (1.3-7.7) k/uL Lymphocytes # (1.0-4.8) k/uL ABG Lactic Acid (0.5-1.6) mmol/L Sodium (137-145) mmol/L Potassium (3.5-5.1) mmol/L Chloride (98-107) mmol/L BUN (9-20) mg/dL Creatinine (0.66-1.25) mg/dL Glucose (74-99) mg/dL POC Glucose (mg/dL) 169 H (70-110) mg/dL Calcium (8.4-10.2) mg/dL Phosphorus (2.5-4.5) mg/dL Alkaline Phosphatase (38-126) U/L C-Reactive Protein (<1.0) mg/dL Albumin (3.5-5.0) g/dL Assessment and Plan Assessment: #Nonoliguric ROSELYN, likely cardiorenal; start hemodialysis 06/10/2024 for worsening oliguric acute kidney injury #Acute on chronic diastolic CHF #Volume overload #Hypertension with CKD stage IV #Acute hypoxic respiratory failure secondary to CHF #CAD s/p stent placement #Metabolic acidosis maintain oral sodium bicarb - improved with dialysis #Right heel wound s/p debridement #Hyperkalemia - resolved Plan: -Initiate torsemide 40 mg daily -Patient underwent medical management for hyperkalemia twice after the potassium remained 6.1 -Patient underwent hemodialysis for a second time yesterday after the potassium remained elevated at 6.1 => potassium 4.9 this morning -Hemodialysis set up as outpatient for M/W/F once discharged next -Check labs in the morning -Avoid nephrotoxic agents I have seen and examined the patient with resident and agree with A&P as written.
[2024-06-25 11:58] LABS: Glucose,Whole Blood 237 mg/dL (70-110)
[2024-06-25 14:18] LABS: Glucose,Whole Blood 278 mg/dL (70-110)
--- NOTE | 2024-06-25 15:27 | P.PN ---
Subjective Progress Note Date: 06/25/24 Principal diagnosis: Reason for follow-up is right heel diabetic foot ulcer with MRSA infection Patient is a 73-year-old male with a past medical history significant for diabetes mellitus hypertension hyperlipidemia osteomyelitis patient has been dealing with a chronic nonhealing wound to the right heel area for months now and is being treated in outpatient setting by Dr. 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 On today's evaluation that is 06/25/2024, Patient is afebrile this morning patient is down to 12 L high flow nasal cannula oxygen denies any chest pain no worsening shortness of breath no cough no nausea vomiting no abdominal pain or diarrhea. Patient white count of 23,000 creatinine is 2.56 CRP is down to 4.0 Objective - Vital Signs Vital signs: Vital Signs Temp 97.7 F 06/25/24 07:42 Pulse 77 06/25/24 15:07 Resp 18 06/25/24 15:07 BP 131/58 06/25/24 15:07 Pulse Ox 94 L 06/25/24 15:07 FiO2 80 06/19/24 07:36 Intake & Output 06/24/24 06/25/24 06/25/24 18:59 06:59 18:59 Intake Total 2975 500 240 Output Total 2350 2700 150 Balance 625 -2200 90 Weight 89.5 kg 95 kg Intake: Oral 1075 240 Hemodialysis 1900 500 Output: Stool 450 200 150 Hemodialysis 400 1500 Hemodialysis Net Amount 1500 1000 Other: Voiding Method Urinal Urinal Urinal # Voids 0 # Bowel Movements 0 - Exam GENERAL DESCRIPTION: An elderly male lying in bed in no distress RESPIRATORY SYSTEM: Unlabored breathing , decreased breath sounds at bases HEART: S1 S2 regular rate and rhythm , ABDOMEN: Soft , no tenderness EXTREMITIES: Right hand wound is currently dressed - Labs CBC & Chem 7: 06/25/24 05:35 06/25/24 05:35 Labs: Abnormal Lab Results - Last 24 Hours (Table) 06/24/24 06/24/24 06/24/24 Range/Units 15:47 15:47 17:52 WBC 17.7 H (3.8-10.6) k/uL RBC 3.30 L (4.30-5.90) m/uL Hgb 9.8 L (13.0-17.5) gm/dL Hct 33.2 L (39.0-53.0) % MCV 100.7 H (80.0-100.0) fL MCHC 29.6 L (31.0-37.0) g/dL RDW 17.6 H (11.5-15.5) % Plt Count 141 L (150-450) k/uL Neutrophils # (1.3-7.7) k/uL Lymphocytes # (1.0-4.8) k/uL ABG Lactic Acid (0.5-1.6) mmol/L Sodium 130 L (137-145) mmol/L Potassium 6.0 H 6.1 H* (3.5-5.1) mmol/L Chloride 94 L (98-107) mmol/L BUN 43 H (9-20) mg/dL Creatinine 2.97 H (0.66-1.25) mg/dL Glucose 198 H (74-99) mg/dL POC Glucose (mg/dL) (70-110) mg/dL Calcium 8.3 L (8.4-10.2) mg/dL Phosphorus 5.1 H (2.5-4.5) mg/dL Alkaline Phosphatase (38-126) U/L C-Reactive Protein (<1.0) mg/dL Albumin (3.5-5.0) g/dL 06/24/24 06/24/24 06/24/24 Range/Units 18:29 21:25 22:46 WBC (3.8-10.6) k/uL RBC (4.30-5.90) m/uL Hgb (13.0-17.5) gm/dL Hct (39.0-53.0) % MCV (80.0-100.0) fL MCHC (31.0-37.0) g/dL RDW (11.5-15.5) % Plt Count (150-450) k/uL Neutrophils # (1.3-7.7) k/uL Lymphocytes # (1.0-4.8) k/uL ABG Lactic Acid (0.5-1.6) mmol/L Sodium (137-145) mmol/L Potassium 6.1 H* (3.5-5.1) mmol/L Chloride (98-107) mmol/L BUN (9-20) mg/dL Creatinine (0.66-1.25) mg/dL Glucose (74-99) mg/dL POC Glucose (mg/dL) 302 H 141 H (70-110) mg/dL Calcium (8.4-10.2) mg/dL Phosphorus (2.5-4.5) mg/dL Alkaline Phosphatase (38-126) U/L C-Reactive Protein (<1.0) mg/dL Albumin (3.5-5.0) g/dL 06/25/24 06/25/24 06/25/24 Range/Units 00:01 01:16 02:00 WBC (3.8-10.6) k/uL RBC (4.30-5.90) m/uL Hgb (13.0-17.5) gm/dL Hct (39.0-53.0) % MCV (80.0-100.0) fL MCHC (31.0-37.0) g/dL RDW (11.5-15.5) % Plt Count (150-450) k/uL Neutrophils # (1.3-7.7) k/uL Lymphocytes # (1.0-4.8) k/uL ABG Lactic Acid 1.7 H (0.5-1.6) mmol/L Sodium (137-145) mmol/L Potassium (3.5-5.1) mmol/L Chloride (98-107) mmol/L BUN (9-20) mg/dL Creatinine (0.66-1.25) mg/dL Glucose (74-99) mg/dL POC Glucose (mg/dL) 185 H 161 H (70-110) mg/dL Calcium (8.4-10.2) mg/dL Phosphorus (2.5-4.5) mg/dL Alkaline Phosphatase (38-126) U/L C-Reactive Protein (<1.0) mg/dL Albumin (3.5-5.0) g/dL 06/25/24 06/25/24 06/25/24 Range/Units 05:35 05:35 05:55 WBC 23.0 H (3.8-10.6) k/uL RBC 3.63 L (4.30-5.90) m/uL Hgb 11.2 L (13.0-17.5) gm/dL Hct 37.8 L (39.0-53.0) % MCV 104.1 H (80.0-100.0) fL MCHC 29.5 L (31.0-37.0) g/dL RDW 17.8 H (11.5-15.5) % Plt Count 128 L (150-450) k/uL Neutrophils # 22.1 H (1.3-7.7) k/uL Lymphocytes # 0.1 L (1.0-4.8) k/uL ABG Lactic Acid (0.5-1.6) mmol/L Sodium 132 L (137-145) mmol/L Potassium (3.5-5.1) mmol/L Chloride 94 L (98-107) mmol/L BUN 37 H (9-20) mg/dL Creatinine 2.56 H (0.66-1.25) mg/dL Glucose 134 H (74-99) mg/dL POC Glucose (mg/dL) 169 H (70-110) mg/dL Calcium (8.4-10.2) mg/dL Phosphorus (2.5-4.5) mg/dL Alkaline Phosphatase 151 H (38-126) U/L C-Reactive Protein 4.0 H (<1.0) mg/dL Albumin 3.2 L (3.5-5.0) g/dL 06/25/24 06/25/24 Range/Units 11:57 14:17 WBC (3.8-10.6) k/uL RBC (4.30-5.90) m/uL Hgb (13.0-17.5) gm/dL Hct (39.0-53.0) % MCV (80.0-100.0) fL MCHC (31.0-37.0) g/dL RDW (11.5-15.5) % Plt Count (150-450) k/uL Neutrophils # (1.3-7.7) k/uL Lymphocytes # (1.0-4.8) k/uL ABG Lactic Acid (0.5-1.6) mmol/L Sodium (137-145) mmol/L Potassium (3.5-5.1) mmol/L Chloride (98-107) mmol/L BUN (9-20) mg/dL Creatinine (0.66-1.25) mg/dL Glucose (74-99) mg/dL POC Glucose (mg/dL) 237 H 278 H (70-110) mg/dL Calcium (8.4-10.2) mg/dL Phosphorus (2.5-4.5) mg/dL Alkaline Phosphatase (38-126) U/L C-Reactive Protein (<1.0) mg/dL Albumin (3.5-5.0) g/dL Assessment and Plan (1) Diabetic infection of right foot Current Visit: Yes Status: Acute Code(s): E11.628 - TYPE 2 DIABETES MELLITUS WITH OTHER SKIN COMPLICATIONS; L08.9 - LOCAL INFECTION OF THE SKIN AND SUBCUTANEOUS TISSUE, UNSP SNOMED Code(s): 039065271 (2) MRSA (methicillin resistant staph aureus) culture positive Current Visit: Yes Status: Acute Code(s): Z22.322 - CARRIER OR SUSPECTED CARRIER OF METHICILLIN RESIS STAPH SNOMED Code(s): 123879529 (3) Diabetic ulcer of right foot Current Visit: No Status: Acute Code(s): E11.621 - TYPE 2 DIABETES MELLITUS WITH FOOT ULCER; L97.519 - NON-PRS CHRONIC ULCER OTH PRT RIGHT FOOT W UNSP SEVERITY SNOMED Code(s): 360797205 (4) Stage III pressure ulcer of right heel Current Visit: No Status: Acute Code(s): L89.613 - PRESSURE ULCER OF RIGHT HEEL, STAGE 3 SNOMED Code(s): 94539765760745 Plan: 1patient with a chronic nonhealing wound to the right heel which he has for couple of months the wound looks deep with a recent culture positive for Proteus and MRSA concerning for wound infection and question for possible deeper infection such as osteomyelitis as wound has been there for couple of months now 2- x-rays of the right heel with no evidence of any bony changes 3-patient has been evaluated by Dr. Carpenter and did have surgical debridement completed on 06/07/2024 and did have a further debridement at the bedside by his fur plucker on 06/14/2024 4-patient still have necrotic wound to the right heel he may benefit from further surgical debridement for now continue with the Santyl 5patient leukocytosis more likely steroid related as no evidence of any worsening infection to continue with Zosyn and daptomycin while and monitor clin ical course closely Dictation was produced using [employer] dictation software. please excuse any gramm atical, word or spelling errors. Time with Patient: Less than 30
--- NOTE | 2024-06-25 15:27 | P.PN ---
Subjective Progress Note Date: 06/25/24 Principal diagnosis: Acute on chronic diastolic congestive heart failure and acute hypoxic respiratory failure Patient is a 73-year-old male with past medical history significant for hypertension, hyperlipidemia, coronary artery disease with previous PCI/stenting, heart failure, chronic kidney disease, diabetes mellitus, chronic right heel wound, ulcerative colitis with previous colectomy and ileostomy. Of note, patient had a recent hospitalization late May and was just discharged 05/31/2024 for CHF exacerbation. Echocardiogram done during this hospitalization estimating a preserved left ventricular ejection fraction of 55 to 60%. Limited study, but no acute valvular abnormalities reported. Presented the emergency department on 06/04/2024 with a chief complaint of shortness of breath, mostly on exertion. Chest x-ray showing cardiomegaly, mild pulmonary vascular congestion, and a small pleural effusion on the left. NT proBNP elevated 2550. Currently receiving Lasix 80 mg twice daily. CBC: WBC count 10.2, hemoglobin 10.4, hematocrit 32.5, platelets 374. CMP: Sodium 135, potassium 4.6, chloride 101, serum bicarb 18, BUN 66, creatinine 2.71, glucose 139. Troponin is less than 0.012. Patient currently being evaluated on the general medical floor. Appears weak and deconditioned. He is resting in bed on 1 L/min nasal cannula. No respiratory distress noted. Complaining of a generalized headache, which he states is chronic. States that he has been short of breath on exertion for several months to almost 1 year. Particularly on exertion such as climbing stairs or walking to the bathroom. Denies history of COPD or asthma. Never tobacco smoker. Worked in an [email or web address] shop before he retired. Denies cough. Denies infectious-like symptoms. Current vital signs: Temperature 98 F, heart rate 78 bpm, blood pressure 145/54 mmHg, nontachypneic, SpO2 recorded at 91% on 1 L/min nasal cannula. On 06/21/2024, the patient is being seen for a follow-up. Remains on 15 L of oxygen by nasal cannula. Underwent hemodialysis yesterday and there is no considerable improvement in the patient's oxygenation. At the same time, the follow-up chest x-ray that was done today showed airspace opacities and bilateral pleural effusions. Although CHF and volume overload is highly suspected. Nevertheless, the response to d dialysis has been suboptimal for now. The patient is comfortable. He is feeling a bit weak. He has a right IJ permacath in place. He remains on a combination of Zosyn and daptomycin for a wound infection and ID is on the case. Urine output is minimal at this point in time. Remains on bronchodilators. Rest of the medications remain unchanged. The white cell count of 20 with a hemoglobin of 11.6 and a platelet count of 150 . BUN is 45 with a creatinine of 3.3 and a sodium levels at 134 and potassium level is at 5.3. No other significant events overnight. Discussed the case with the medical team. On 06/22/2024, the patient remains on 15 l of oxygen by nasal cannula. A CAT scan of the chest was done yesterday and the CAT scan showed diffuse bilateral groundglass and airspace opacities throughout the lungs bilaterally consistent with pulmonary edema although atypical infections/acute lung injury cannot be completely ruled out. He has mild to moderate cardiomegaly and cholelithiasis. I suspect those findings are related to interstitial edema and the patient with further respond to dialysis and ultrafiltration. The plan for now is to undergo dialysis with a total of 3 L of ultrafiltration. The patient was started back on IV Solu-Medrol. The white cell count is 17.5, hemoglobin 9.9, platelet count is 116. Sodium level is at 129, BUN 67 with a creatinine of 4.8. He is resting comfortably in bed. He does have some mild shortness of breath even at rest. On 06/23/2024, the patient is being seen for a follow-up. The patient remains on 15 L of oxygen by nasal cannula. I was considering the possibility of interstitial edema/fluid overload contributing to the patient's shortness of breath and hypoxemia. However, despite undergoing a 3 L ultrafiltration yesterday, the patient remains hypoxic. Reviewed the CAT scan of the chest again. This may be a component of acute lung injury, and based on that, the patient was started on steroids. He remains on broad-spectrum antibiotics in addition. Oxygenation remains impaired. Nephrology on the case. Last hemodialysis was yesterday. No new labs are available from today. Resting comfortably in bed on 15 L of oxygen by nasal cannula. Remains on Zosyn and daptomycin. Patient was seen today on 06/24/2024, patient remains on 15 L high flow nasal cannula, surprisingly the patient tells me that he is feeling better, patient was started 2 days ago on dialysis/ultrafiltration, seems to be helping the patient significantly. His urine output is very marginal today. Patient remains on broad-spectrum antibiotics, he is being followed by many consultants including nephrology, patient remains on Zosyn and daptomycin. WBC count 17.7 hemoglobin 9.8 electrolytes showed low sodium of 130 potassium 6 BUN is 43 creatinine 2.97. To the right heel area for months now, and has been treated on outpatient setting for culture positive MRSA and positive for Proteus. Patient clearly has diabetic foot infection, and diabetic right foot ulcer. As well as stage III pressure ulcer of the right heel. Patient was seen today on 06/25/2024, patient is about the same, remains on hemodialysis, he is on 12 L high flow nasal cannula down from 15 yesterday. In spite of this the patient does not seem to be in any distress. Remains on broad-spectrum antibiotics, including Zosyn and daptomycin, patient was dialyzed yesterday, I am not certain if he is scheduled to have dialysis today. Continues to have leukocytosis with WBC of 23 hemoglobin 11.2 electrolytes are normal BUN is down to [address] of the chest from last week showed diffuse bilateral groundglass and airspace opacities throughout both lungs. And mild to moderate cardiomegaly. The findings are findings of either pulmonary edema or atypical pneumonia. Objective - Vital Signs Vital signs: Vital Signs Temp 97.7 F 06/25/24 07:42 Pulse 77 06/25/24 15:07 Resp 18 06/25/24 15:07 BP 131/58 06/25/24 15:07 Pulse Ox 94 L 06/25/24 15:07 FiO2 80 06/19/24 07:36 Intake & Output 06/24/24 06/25/24 06/25/24 18:59 06:59 18:59 Intake Total 2975 500 240 Output Total 2350 2700 150 Balance 625 -2200 90 Weight 89.5 kg 95 kg Intake: Oral 1075 240 Hemodialysis 1900 500 Output: Stool 450 200 150 Hemodialysis 400 1500 Hemodialysis Net Amount 1500 1000 Other: Voiding Method Urinal Urinal Urinal # Voids 0 # Bowel Movements 0 - Exam GENERAL: The patient is alert and oriented x3, not in any acute distress. Well developed, well nourished., On 12 L high flow nasal cannula HEENT: Pupils are round and equally reacting to light. EOMI. No scleral icterus. CARDIOVASCULAR: S1 and S2 present. No murmurs, rubs, or gallops. PULMONARY: Crackles and wheezes noted bilaterally ABDOMEN: Soft, nontender, nondistended, normoactive bowel sounds. No palpable organomegaly. MUSCULOSKELETAL: No joint swelling or deformity. -EXTREMITIES: No cyanosis, clubbing, or pedal edema. Right foot ulcer with dressing in place NEUROLOGICAL: Gross neurological examination did not reveal any focal deficits. SKIN: His wounds are dressed, could not be seen.Right foot is wrapped with a bandage. There is 1-2+ peripheral edema. Peripheral pulses are intact. - Labs CBC & Chem 7: 06/25/24 05:35 06/25/24 05:35 Labs: Abnormal Lab Results - Last 24 Hours (Table) 06/24/24 06/24/24 06/24/24 Range/Units 15:47 15:47 17:52 WBC 17.7 H (3.8-10.6) k/uL RBC 3.30 L (4.30-5.90) m/uL Hgb 9.8 L (13.0-17.5) gm/dL Hct 33.2 L (39.0-53.0) % MCV 100.7 H (80.0-100.0) fL MCHC 29.6 L (31.0-37.0) g/dL RDW 17.6 H (11.5-15.5) % Plt Count 141 L (150-450) k/uL Neutrophils # (1.3-7.7) k/uL Lymphocytes # (1.0-4.8) k/uL ABG Lactic Acid (0.5-1.6) mmol/L Sodium 130 L (137-145) mmol/L Potassium 6.0 H 6.1 H* (3.5-5.1) mmol/L Chloride 94 L (98-107) mmol/L BUN 43 H (9-20) mg/dL Creatinine 2.97 H (0.66-1.25) mg/dL Glucose 198 H (74-99) mg/dL POC Glucose (mg/dL) (70-110) mg/dL Calcium 8.3 L (8.4-10.2) mg/dL Phosphorus 5.1 H (2.5-4.5) mg/dL Alkaline Phosphatase (38-126) U/L C-Reactive Protein (<1.0) mg/dL Albumin (3.5-5.0) g/dL 06/24/24 06/24/24 06/24/24 Range/Units 18:29 21:25 22:46 WBC (3.8-10.6) k/uL RBC (4.30-5.90) m/uL Hgb (13.0-17.5) gm/dL Hct (39.0-53.0) % MCV (80.0-100.0) fL MCHC (31.0-37.0) g/dL RDW (11.5-15.5) % Plt Count (150-450) k/uL Neutrophils # (1.3-7.7) k/uL Lymphocytes # (1.0-4.8) k/uL ABG Lactic Acid (0.5-1.6) mmol/L Sodium (137-145) mmol/L Potassium 6.1 H* (3.5-5.1) mmol/L Chloride (98-107) mmol/L BUN (9-20) mg/dL Creatinine (0.66-1.25) mg/dL Glucose (74-99) mg/dL POC Glucose (mg/dL) 302 H 141 H (70-110) mg/dL Calcium (8.4-10.2) mg/dL Phosphorus (2.5-4.5) mg/dL Alkaline Phosphatase (38-126) U/L C-Reactive Protein (<1.0) mg/dL Albumin (3.5-5.0) g/dL 06/25/24 06/25/24 06/25/24 Range/Units 00:01 01:16 02:00 WBC (3.8-10.6) k/uL RBC (4.30-5.90) m/uL Hgb (13.0-17.5) gm/dL Hct (39.0-53.0) % MCV (80.0-100.0) fL MCHC (31.0-37.0) g/dL RDW (11.5-15.5) % Plt Count (150-450) k/uL Neutrophils # (1.3-7.7) k/uL Lymphocytes # (1.0-4.8) k/uL ABG Lactic Acid 1.7 H (0.5-1.6) mmol/L Sodium (137-145) mmol/L Potassium (3.5-5.1) mmol/L Chloride (98-107) mmol/L BUN (9-20) mg/dL Creatinine (0.66-1.25) mg/dL Glucose (74-99) mg/dL POC Glucose (mg/dL) 185 H 161 H (70-110) mg/dL Calcium (8.4-10.2) mg/dL Phosphorus (2.5-4.5) mg/dL Alkaline Phosphatase (38-126) U/L C-Reactive Protein (<1.0) mg/dL Albumin (3.5-5.0) g/dL 06/25/24 06/25/24 06/25/24 Range/Units 05:35 05:35 05:55 WBC 23.0 H (3.8-10.6) k/uL RBC 3.63 L (4.30-5.90) m/uL Hgb 11.2 L (13.0-17.5) gm/dL Hct 37.8 L (39.0-53.0) % MCV 104.1 H (80.0-100.0) fL MCHC 29.5 L (31.0-37.0) g/dL RDW 17.8 H (11.5-15.5) % Plt Count 128 L (150-450) k/uL Neutrophils # 22.1 H (1.3-7.7) k/uL Lymphocytes # 0.1 L (1.0-4.8) k/uL ABG Lactic Acid (0.5-1.6) mmol/L Sodium 132 L (137-145) mmol/L Potassium (3.5-5.1) mmol/L Chloride 94 L (98-107) mmol/L BUN 37 H (9-20) mg/dL Creatinine 2.56 H (0.66-1.25) mg/dL Glucose 134 H (74-99) mg/dL POC Glucose (mg/dL) 169 H (70-110) mg/dL Calcium (8.4-10.2) mg/dL Phosphorus (2.5-4.5) mg/dL Alkaline Phosphatase 151 H (38-126) U/L C-Reactive Protein 4.0 H (<1.0) mg/dL Albumin 3.2 L (3.5-5.0) g/dL 06/25/24 06/25/24 Range/Units 11:57 14:17 WBC (3.8-10.6) k/uL RBC (4.30-5.90) m/uL Hgb (13.0-17.5) gm/dL Hct (39.0-53.0) % MCV (80.0-100.0) fL MCHC (31.0-37.0) g/dL RDW (11.5-15.5) % Plt Count (150-450) k/uL Neutrophils # (1.3-7.7) k/uL Lymphocytes # (1.0-4.8) k/uL ABG Lactic Acid (0.5-1.6) mmol/L Sodium (137-145) mmol/L Potassium (3.5-5.1) mmol/L Chloride (98-107) mmol/L BUN (9-20) mg/dL Creatinine (0.66-1.25) mg/dL Glucose (74-99) mg/dL POC Glucose (mg/dL) 237 H 278 H (70-110) mg/dL Calcium (8.4-10.2) mg/dL Phosphorus (2.5-4.5) mg/dL Alkaline Phosphatase (38-126) U/L C-Reactive Protein (<1.0) mg/dL Albumin (3.5-5.0) g/dL Assessment and Plan Assessment: Impression: Acute exacerbation of diastolic congestive heart failure versus interstitial edema secondary to chronic kidney disease and renal failure. Bilateral pneumonia cannot be completely excluded. Considering the patient is improving with hemodialysis that speaks in favor of pulmonary edema/fluid overload. Acute hypoxic respiratory failure, oxygenation is stable on 2 L high flow nasal cannula Acute on chronic kidney disease now requiring renal replacement therapy that started June 10, 2024, underwent dialysis via permacath in the right IJ Hyperkalemia, improved Acute on chronic anemia secondary to above History of CAD with previous PCIDiabetes mellitus type II Hypertension Hyperlipidemia Chronic cephalgia History of UC with previous colectomy and ileostomy History of prostate cancer status post chemoradiation Chronic right heel wound, status post debridement on 05/28/2024 again today June 14, 2024 Obesity, with a BMI of 38.8 kg/m Recommendation: Continue oxygen and titrate accordingly presently on 12 L high flow nasal cannula Continue hemodialysis as he seems to be improving after hemodialysis Continue bronchodilators Continue daptomycin and Zosyn Continue IV Solu-Medrol 40 mg IV push every 12 hours Continue GI and DVT prophylaxis Patient remains quite ill and still requiring high FiO2 Will continue to follow with other consultants Time with Patient: Less than 30
[2024-06-25] MEDS: ALPRAZolam 0.5 MG TAB PO PRN (15:49)
[2024-06-25 18:13] LABS: Glucose,Whole Blood 376 mg/dL (70-110)
[2024-06-25 21:34] LABS: Glucose,Whole Blood 390 mg/dL (70-110)
[2024-06-25 23:48] LABS: Glucose,Whole Blood 411 mg/dL (70-110)
[2024-06-26 05:38] LABS: Glucose,Whole Blood 360 mg/dL (70-110)
[2024-06-26 07:19] LABS: Anion Gap 15 mmol/L; Blood Urea Nitrogen 72 mg/dL (9-20); Calcium 8.3 mg/dL (8.4-10.2); Carbon Dioxide 22 mmol/L (22-30); Chloride 92 mmol/L (98-107); Glucose 293 mg/dL (74-99); Sodium 129 mmol/L (137-145)
[2024-06-26 07:20] LABS: African American GFR (CKD) 15 (>60 ml/min/1.73 sqM); Non-African American GFR(CKD) 13 (>60 ml/min/1.73 sqM)
[2024-06-26 07:29] LABS: Anisocytosis Slight; Basophils % (A) 0 %; Eosinophils % (A) 0 %; HCT 34.4 % (39.0-53.0); HGB 10.1 gm/dL (13.0-17.5); Hypochromasia Marked; Lymphocytes # (A) 0.2 k/uL (1.0-4.8); Lymphocytes % (A) 1 %; MCH 30.1 pg (25.0-35.0); MCHC 29.3 g/dL (31.0-37.0); MCV 102.8 fL (80.0-100.0); Macrocytosis Moderate; Mean Platelet Volume 11.1; Monocytes # (A) 0.4 k/uL (0-1.0); Monocytes % (A) 4 %; Neutrophils # (A) 11.1 k/uL (1.3-7.7); Neutrophils % (A) 95 %; Platelet Count 122 k/uL (150-450); RBC 3.35 m/uL (4.30-5.90); RDW 17.6 % (11.5-15.5); WBC 11.8 k/uL (3.8-10.6)
[2024-06-26 07:37] LABS: Potassium 6.6 mmol/L (3.5-5.1)
[2024-06-26] MEDS: INSULIN REGULAR 100 UNIT/ML VIAL (IV) IV ONE (08:12)
[2024-06-26] MEDS: DEXTROSE 50% SYRINGE 50 ML IVP ONE (08:14)
[2024-06-26] MEDS: CALCIUM GLUCONATE IN NACL 1 GM in SALINE 1 100ML.BAG IVPB ONE (08:17)
[2024-06-26] MEDS: MIDODRINE 5 MG TAB PO STA (09:20)
--- NOTE | 2024-06-26 09:58 | P.PN ---
Subjective Pleasant 73-year-old patient follows with Dr. Dennis. 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 Bales. April 26, [address] Bales: Following a non-ST relation [place]: Patent stent to mid LAD. Late stent thrombosis of the second diagonal branch of the LAD. Severe disease involving the OM1 appears unchanged. Attempted balloon angioplasty performed to the second of diagonal branch with suboptimal results. Dose of Imdur was increased and Ranexa was added. Patient recently in the hospital from May 28 through May 31. Chronic headaches: MRI unremarkable. MR angio head and neck: MR angio head without contrast: No evidence of aneurysm or significant stenosis. Atrophic right A1 segment. origin of the right posterior cerebral artery.MRI of the brain nonspecific. Was seen by neurology Dr. Gay. Patient to follow-up outpatient Chronic right heel wound seen by Dr. Carpenter from vascular deep debridement was carried out. No need for antibiotics. Patient to follow-up with Dr. Jernigan at the wound center. Shortness of breath: Was seen by cardiology. Not for any further intervention. Patient doing well when discharged. Patient presented increased shortness of breath when at home. His pulse ox dropped out of the 80s. Increasing shortness of breath. Decreased appetite. No fever or chills. June 10: Using his BiPAP. Patient seen this morning. Later this afternoon. Right femoral vein dialysis catheter was placed by Dr. Carpenter from vascular for dialysis. Baseline some shortness of breath. Due for first dialysis today. Patient is right heel culture grew MRSA Proteus P Corynebacterium on May 29. Patient is on IV daptomycin and IV cefepime per ID. June 11: Patient seen this afternoon. On BiPAP. Getting hemodialysis. Remains on IV daptomycin IV Zosyn. Tired. Also getting IV iron. Patient really did not eat today. Because of BiPAP. Cut back Levemir to 26 units at night. DC scheduled NovoLog for now. June 12: Overflowing the ICU. Remains on BiPAP. 04/05/%. at the bedside. Remains on IV daptomycin and IV Zosyn. For dialysis today. X-ray continues shows infiltrates. Significantly hypoxic. N.p.o. June 13: ICU. Remains on BiPAP. /6/90% moderate take anything by mouth. Spoke to the nurse have TPN lipids ordered. Remains on IV daptomycin IV Zosyn. Chest x-ray continues to show diffuse infiltrates. Continues to be followed by cardiology pulmonary ID nephrology. June 14: ICU. Later this afternoon patient was put on Airvo. 60/60. Has some delirium. Remains on IV daptomycin and IV Zosyn. Had 2 L ultrafiltration yesterday. Patient getting daily dialysis for now. As patient is oliguric per nephrology Lasix has been held. TPN was ordered yesterday per the nurse culture that returned to feed the patient. Will see how that goes. Dietitian on the case. June 15: ICU. Patient be getting hypotensive. Some medications held back by cardiology. Hemodialysis done today. Patient remains on Airvo though at 50/50. at the bedside. Plans this afternoon to get him up in the chair. Remains on daptomycin and IV Zosyn. IV Lasix been discontinued. Patient tolerating some liquid diet. June 16: Patient moved to the ICU. Remains on Airvo. 45/45. at the bedside. Tolerating full liquids. Spoke to the about the morphine. His headaches are chronic. Use Fioricet as needed. Remains on IV daptomycin and IV Zosyn. IV Solu-Medrol. Amlodipine dose cut back. PT OT. June 17: On 3 S., telemetry floor. Getting hemodialysis today. Remains on IV daptomycin IV Zosyn. On full liquid diet. Advance to ground diet. Minimal urine output. DC fluid restriction. Awake communicating. Accu-Cheks running high. Increase Levemir to 28 units subcu twice daily. Seen by PT OT. Maximum assist. On Airvo 40/40. Cut back Solu-Medrol to every 12. June 18: On a recliner. 7 L nasal cannula. Decreased appetite. at the bedside. Accu-Chek in 200s. IJ PermCath placement pending. Encourage oral intake. Ordered incentive spirometry June 19: Patient was on 7 L nasal cannula yesterday. Patient back on Airvo today. 40 L. Due for hemodialysis today. Had perm dialysis catheter placed right IJ by Dr. Carpenter today. Minimal intake today. Discussed with at the bedside. June 20: Recliner. High flow 15 L nasal cannula. at the bedside. Decreased oral intake.Tired. Hemodialysis today. June 21: Still decreased appetite. Remains on high flow 15 l nasal cannula. Remains on IV daptomycin IV Zosyn per ID. Being followed by multiple consultants spoke to the patient and . Encourage oral intake. June 22: Remains on 15 L high flow nasal cannula. at the bedside. Di et. Remains on IV daptomycin IV Zosyn. Decreased appetite. Will try ground diet. June 23: Monday to the bed. Ate a bit better according to the . Remains on 15 L nasal cannula. Oral candidiasis. Diflucan 200 mg x 1 today. Then 100 mg 3 times a week after each dialysis. Remains on daptomycin IV Zosyn per ID. Discussed with patient 06/24 I am resuming the care of the patient today He is sitting at the edge of the bed feels comfortable. Still requiring 15 units of oxygen, he states that he feels better than yesterday after he was started on IV Solu-Medrol 40 mg twice daily. At home he was not on oxygen Also he is on daptomycin and Diflucan. He is also on antibiotic for his right foot ulcer with dressing in place. No pain 06/25 Patient feels the same Oxygen requirements down from 15 down to 12 L/min His labs showing more hemoconcentration with leukocytosis 23K, hemoglobin 12.2 and platelet 128 all went up little bit. Creatinine 2.5. Sodium improved 132 He remains on Zosyn daptomycin and fluconazole and IV Solu-Medrol 40 mg twice daily 06/26 Patient is breathing quietly while he is sitting in bed. He is getting 11 L via nasal cannula in the morning, however later on it looks like his oxygen supply was increased. Patient denies any other new symptoms His sodium today was 129 and potassium elevated 6.6 and creatinine 4.3. Patient getting dialysis for hyperkalemia protocol. WBC went down to 11.8. Hemoglobin stable at 10.1. Platelet count 122. Remains on triple antibiotics with Diflucan, daptomycin and Zosyn. Also is on IV Solu-Medrol 40 mg twice daily. No more panic attack. Yesterday after rounding he developed panic attacks and improved with Xanax Objective - Vital Signs Vital signs: Vital Signs Temp 97.6 F 06/26/24 07:50 Pulse 79 06/26/24 09:39 Resp 18 06/26/24 07:50 BP 118/56 06/26/24 07:50 Pulse Ox 100 06/26/24 09:31 FiO2 80 06/26/24 09:31 Intake & Output 06/25/24 06/26/24 06/26/24 18:59 06:59 18:59 Intake Total 480 10 240 Output Total 350 20 Balance 130 -10 240 Weight 95 kg 96 kg Intake: IV 10 Invasive Line 8 10 Oral 480 240 Output: Stool 350 20 Other: Voiding Method Urinal Urinal # Voids 0 # Bowel Movements 0 - Exam GENERAL: The patient is alert and oriented x3, not in any acute distress. Well developed, well nourished. HEENT: Pupils are round and equally reacting to light. EOMI. No scleral icterus. No conjunctival pallor. Normocephalic, atraumatic. No pharyngeal erythema. No thyromegaly. CARDIOVASCULAR: S1 and S2 present. No murmurs, rubs, or gallops. -PULMONARY: Chest is clear to auscultation, bilateral crackles. And scattered wheezing ABDOMEN: Soft, nontender, nondistended, normoactive bowel sounds. No palpable organomegaly. MUSCULOSKELETAL: No joint swelling or deformity. -EXTREMITIES: No cyanosis, clubbing, or pedal edema. Right foot ulcer with dressing in place NEUROLOGICAL: Gross neurological examination did not reveal any focal deficits. SKIN: No rashes. no petechiae. - Labs CBC & Chem 7: 06/26/24 05:37 06/26/24 05:37 Labs: Abnormal Lab Results - Last 24 Hours (Table) 06/25/24 06/25/24 06/25/24 Range/Units 11:57 14:17 18:11 WBC (3.8-10.6) k/uL RBC (4.30-5.90) m/uL Hgb (13.0-17.5) gm/dL Hct (39.0-53.0) % MCV (80.0-100.0) fL MCHC (31.0-37.0) g/dL RDW (11.5-15.5) % Plt Count (150-450) k/uL Neutrophils # (1.3-7.7) k/uL Lymphocytes # (1.0-4.8) k/uL Sodium (137-145) mmol/L Potassium (3.5-5.1) mmol/L Chloride (98-107) mmol/L BUN (9-20) mg/dL Creatinine (0.66-1.25) mg/dL Glucose (74-99) mg/dL POC Glucose (mg/dL) 237 H 278 H 376 H (70-110) mg/dL Calcium (8.4-10.2) mg/dL 06/25/24 06/25/24 06/26/24 Range/Units 21:31 23:46 05:36 WBC (3.8-10.6) k/uL RBC (4.30-5.90) m/uL Hgb (13.0-17.5) gm/dL Hct (39.0-53.0) % MCV (80.0-100.0) fL MCHC (31.0-37.0) g/dL RDW (11.5-15.5) % Plt Count (150-450) k/uL Neutrophils # (1.3-7.7) k/uL Lymphocytes # (1.0-4.8) k/uL Sodium (137-145) mmol/L Potassium (3.5-5.1) mmol/L Chloride (98-107) mmol/L BUN (9-20) mg/dL Creatinine (0.66-1.25) mg/dL Glucose (74-99) mg/dL POC Glucose (mg/dL) 390 H 411 H 360 H (70-110) mg/dL Calcium (8.4-10.2) mg/dL 06/26/24 06/26/24 Range/Units 05:37 05:37 WBC 11.8 H (3.8-10.6) k/uL RBC 3.35 L (4.30-5.90) m/uL Hgb 10.1 L (13.0-17.5) gm/dL Hct 34.4 L (39.0-53.0) % MCV 102.8 H (80.0-100.0) fL MCHC 29.3 L (31.0-37.0) g/dL RDW 17.6 H (11.5-15.5) % Plt Count 122 L (150-450) k/uL Neutrophils # 11.1 H (1.3-7.7) k/uL Lymphocytes # 0.2 L (1.0-4.8) k/uL Sodium 129 L (137-145) mmol/L Potassium 6.6 H* (3.5-5.1) mmol/L Chloride 92 L (98-107) mmol/L BUN 72 H (9-20) mg/dL Creatinine 4.30 H (0.66-1.25) mg/dL Glucose 293 H (74-99) mg/dL POC Glucose (mg/dL) (70-110) mg/dL Calcium 8.3 L (8.4-10.2) mg/dL Assessment and Plan Assessment: Assessment and plan: -Acute on chronic congestive heart failure exacerbation, from diastolic dysf unction EF 55 to 60%.: Better Received IV Lasix Started on dialysis June 10. -Acute hypoxic respiratory failure from pulmonary edema: Slow to respond. Possible elements of bronchospasm Initially BiPAP 12/6/90%. Then Airvo. Today high flow 15 L nasal cannula -Acute respiratory distress syndrome, multifactorial: Slowly improving On Airvo initially Received IV Solu-Medrol: Discontinued and then resumed again on 06/23 -COPD non-smoker DuoNeb 4 times daily. Nebulized Pulmicort Started on IV Solu-Medrol 40 mg twice daily -Chronic ostomy-functioning well -Chronic cephalgia. Patient stated headaches for greater than 6 months. Practically every day. Does not interfere with his eating. No exacerbating relieving factors: Possible tension headaches. CT scan of the brain shows some chronic changes MRI and MRI of the brain showing chronic changes. Seen by Dr. Gay from neurology a week ago. Further outpatient follow-up with neurology -Acute delirium/metabolic encephalopathy. Multifactorial: Better -Acute oropharyngeal candidiasis Diflucan 2 1 mg x 1 today. 1000 mg 3 times a week after hemodialysis -Right heel wound. Dry. Follows with Dr. Jernigan at the wound center. Dr. Carpenter from vascular-. Deep debridement carried recently Wound culture [May 29] MRSA, Proteus IV cefepime, daptomycin per ID -Chronic parastomal hernia #Hypertension: Amlodipine. Toprol-XL. Hydralazine -Acute kidney injury, likely cardiorenal: On hemodialysis Right femoral vein dialysis catheter placed by Dr. Carpenter on June 10. Hemodialysis started June 10-Daily Right IJ PermCath placement -CKD likely nephrosclerosis, diabetic nephropathy Creatinine was 1.6 on April 28, 2024. -CAD with stent Toprol-XL -Anemia in the setting of chronic kidney disease. Iron deficiency anemia. Given IV iron -Primary osteoarthritis Pain medication as needed -History of prostate cancer with radiation and chemo in 2020. #Diabetes mellitus type II, chronically on insulin: Uncontrolled with hyperglycemia Levemir to 28 units SQ every 12 #Hyperlipidemia: Lipitor #GERD: Protonix -Full code
[2024-06-26 11:22] LABS: Glucose,Whole Blood 200 mg/dL (70-110)
--- NOTE | 2024-06-26 11:59 | P.PN ---
Subjective Progress Note Date: 06/26/24 Patient seen for follow-up for chronic kidney disease with acute kidney injury. Initiate hemodialysis 06/10/2024. Labs this morning had potassium 6.6. Received calcium gluconate, insulin and dextrose. Patient is comfortable. No acute complaints at this time. He began to desat when dialysis began this morning, attempted to increase to 15 L on high flow nasal cannula, eventually was placed on Airvo; will attempt to wean back down on hyponasal cannula following dialysis today. Objective - Vital Signs Vital signs: Vital Signs Temp 97.6 F 06/26/24 07:50 Pulse 83 06/26/24 07:50 Resp 18 06/26/24 07:50 BP 118/56 06/26/24 07:50 Pulse Ox 95 06/26/24 07:50 FiO2 80 06/19/24 07:36 Intake & Output 06/25/24 06/26/24 06/26/24 18:59 06:59 18:59 Intake Total 480 10 240 Output Total 350 20 Balance 130 -10 240 Weight 95 kg 96 kg Intake: IV 10 Invasive Line 8 10 Oral 480 240 Output: Stool 350 20 Other: Voiding Method Urinal Urinal # Voids 0 # Bowel Movements 0 - Exam Patient is awake, comfortable, no acute distress. 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 - Labs CBC & Chem 7: 06/26/24 05:37 06/26/24 05:37 Labs: Abnormal Lab Results - Last 24 Hours (Table) 06/25/24 06/25/24 06/25/24 Range/Units 01:16 11:57 14:17 WBC (3.8-10.6) k/uL RBC (4.30-5.90) m/uL Hgb (13.0-17.5) gm/dL Hct (39.0-53.0) % MCV (80.0-100.0) fL MCHC (31.0-37.0) g/dL RDW (11.5-15.5) % Plt Count (150-450) k/uL Neutrophils # (1.3-7.7) k/uL Lymphocytes # (1.0-4.8) k/uL Sodium (137-145) mmol/L Potassium (3.5-5.1) mmol/L Chloride (98-107) mmol/L BUN (9-20) mg/dL Creatinine (0.66-1.25) mg/dL Glucose (74-99) mg/dL POC Glucose (mg/dL) 161 H 237 H 278 H (70-110) mg/dL Calcium (8.4-10.2) mg/dL 06/25/24 06/25/24 06/25/24 Range/Units 18:11 21:31 23:46 WBC (3.8-10.6) k/uL RBC (4.30-5.90) m/uL Hgb (13.0-17.5) gm/dL Hct (39.0-53.0) % MCV (80.0-100.0) fL MCHC (31.0-37.0) g/dL RDW (11.5-15.5) % Plt Count (150-450) k/uL Neutrophils # (1.3-7.7) k/uL Lymphocytes # (1.0-4.8) k/uL Sodium (137-145) mmol/L Potassium (3.5-5.1) mmol/L Chloride (98-107) mmol/L BUN (9-20) mg/dL Creatinine (0.66-1.25) mg/dL Glucose (74-99) mg/dL POC Glucose (mg/dL) 376 H 390 H 411 H (70-110) mg/dL Calcium (8.4-10.2) mg/dL 06/26/24 06/26/24 06/26/24 Range/Units 05:36 05:37 05:37 WBC 11.8 H (3.8-10.6) k/uL RBC 3.35 L (4.30-5.90) m/uL Hgb 10.1 L (13.0-17.5) gm/dL Hct 34.4 L (39.0-53.0) % MCV 102.8 H (80.0-100.0) fL MCHC 29.3 L (31.0-37.0) g/dL RDW 17.6 H (11.5-15.5) % Plt Count 122 L (150-450) k/uL Neutrophils # 11.1 H (1.3-7.7) k/uL Lymphocytes # 0.2 L (1.0-4.8) k/uL Sodium 129 L (137-145) mmol/L Potassium 6.6 H* (3.5-5.1) mmol/L Chloride 92 L (98-107) mmol/L BUN 72 H (9-20) mg/dL Creatinine 4.30 H (0.66-1.25) mg/dL Glucose 293 H (74-99) mg/dL POC Glucose (mg/dL) 360 H (70-110) mg/dL Calcium 8.3 L (8.4-10.2) mg/dL Assessment and Plan Assessment: #Nonoliguric ROSELYN, likely cardiorenal; start hemodialysis 06/10/2024 for worsening oliguric acute kidney injury #Acute on chronic diastolic CHF #Volume overload #Hypertension with CKD stage IV #Acute hypoxic respiratory failure secondary to CHF #CAD s/p stent placement #Metabolic acidosis maintain oral sodium bicarb - improved with dialysis #Right heel wound s/p debridement #Hyperkalemia Plan: -Initiate torsemide 40 mg daily -Morning labs show potassium 6.6, received medical management for hyperkalemia with calcium gluconate, insulin, dextrose -Will recheck potassium and creatinine kinase this afternoon following dialysis -Hemodialysis set up as outpatient for M/W/F once discharged next -Switch supplemental nutrition to Nepro due to slightly decreased potassium content -Initiated on renal diet -Check labs in the morning -Avoid nephrotoxic agents -Wean FiO2 as possible I have seen and examined the patient with resident and agree with A&P as taylor ttalise. Emergent HD this AM. Scheduled malu added.
--- NOTE | 2024-06-26 12:35 | XR ---
EXAMINATION TYPE: XR chest 1V portable DATE OF EXAM: 06/26/2024 12:30 PM COMPARISON: Chest radiographs from 06/21/2024 CLINICAL INDICATION: Male, 73 years old with history of Hypoxemia; [facility] TECHNIQUE: XR chest 1V portable Frontal view of the chest. FINDINGS: Lungs/Pleura: No evidence of focal consolidation or pneumothorax. Blunting of the costophrenic angles is present. Pulmonary vascularity: Pulmonary vascular congestion. Heart/mediastinum: Cardiomediastinal silhouette is unremarkable. Musculoskeletal: No acute osseous pathology. Other findings: None Lines/Tubes: Right internal jugular central venous catheter with distal tip at the cavoatrial junction. IMPRESSION: Cardiomegaly, pulmonary vascular congestion and bilateral pleural effusions. Correlate with BNP for c ongestive heart failure. Right central venous catheter with tip in appropriate position. [facility], , 06/26/2024 12:33 PM
[2024-06-26] MEDS: amLODIPine 5 MG TAB PO SCH (13:25)
--- NOTE | 2024-06-26 16:06 | P.PN ---
Subjective Progress Note Date: 06/26/24 Principal diagnosis: Acute on chronic diastolic congestive heart failure and acute hypoxic respiratory failure Patient is a 73-year-old male with past medical history significant for hypertension, hyperlipidemia, coronary artery disease with previous PCI/stenting, heart failure, chronic kidney disease, diabetes mellitus, chronic right heel wound, ulcerative colitis with previous colectomy and ileostomy. Of note, patient had a recent hospitalization late May and was just discharged 05/31/2024 for CHF exacerbation. Echocardiogram done during this hospitalization estimating a preserved left ventricular ejection fraction of 55 to 60%. Limited study, but no acute valvular abnormalities reported. Presented the emergency department on 06/04/2024 with a chief complaint of shortness of breath, mostly on exertion. Chest x-ray showing cardiomegaly, mild pulmonary vascular congestion, and a small pleural effusion on the left. NT proBNP elevated 2550. Currently receiving Lasix 80 mg twice daily. CBC: WBC count 10.2, hemoglobin 10.4, hematocrit 32.5, platelets 374. CMP: Sodium 135, potassium 4.6, chloride 101, serum bicarb 18, BUN 66, creatinine 2.71, glucose 139. Troponin is less than 0.012. Patient currently being evaluated on the general medical floor. Appears weak and deconditioned. He is resting in bed on 1 L/min nasal cannula. No respiratory distress noted. Complaining of a generalized headache, which he states is chronic. States that he has been short of breath on exertion for several months to almost 1 year. Particularly on exertion such as climbing stairs or walking to the bathroom. Denies history of COPD or asthma. Never tobacco smoker. Worked in an [employer] shop before he retired. Denies cough. Denies infectious-like symptoms. Current vital signs: Temperature 98 F, heart rate 78 bpm, blood pressure 145/54 mmHg, nontachypneic, SpO2 recorded at 91% on 1 L/min nasal cannula. On 06/21/2024, the patient is being seen for a follow-up. Remains on 15 L of oxygen by nasal cannula. Underwent hemodialysis yesterday and there is no considerable improvement in the patient's oxygenation. At the same time, the follow-up chest x-ray that was done today showed airspace opacities and bilateral pleural effusions. Although CHF and volume overload is highly suspected. Nevertheless, the response to d dialysis has been suboptimal for now. The patient is comfortable. He is feeling a bit weak. He has a right IJ permacath in place. He remains on a combination of Zosyn and daptomycin for a wound infection and ID is on the case. Urine output is minimal at this point in time. Remains on bronchodilators. Rest of the medications remain unchanged. The white cell count of 20 with a hemoglobin of 11.6 and a platelet count of 150 . BUN is 45 with a creatinine of 3.3 and a sodium levels at 134 and potassium level is at 5.3. No other significant events overnight. Discussed the case with the medical team. On 06/22/2024, the patient remains on 15 l of oxygen by nasal cannula. A CAT scan of the chest was done yesterday and the CAT scan showed diffuse bilateral groundglass and airspace opacities throughout the lungs bilaterally consistent with pulmonary edema although atypical infections/acute lung injury cannot be completely ruled out. He has mild to moderate cardiomegaly and cholelithiasis. I suspect those findings are related to interstitial edema and the patient with further respond to dialysis and ultrafiltration. The plan for now is to undergo dialysis with a total of 3 L of ultrafiltration. The patient was started back on IV Solu-Medrol. The white cell count is 17.5, hemoglobin 9.9, platelet count is 116. Sodium level is at 129, BUN 67 with a creatinine of 4.8. He is resting comfortably in bed. He does have some mild shortness of breath even at rest. On 06/23/2024, the patient is being seen for a follow-up. The patient remains on 15 L of oxygen by nasal cannula. I was considering the possibility of interstitial edema/fluid overload contributing to the patient's shortness of breath and hypoxemia. However, despite undergoing a 3 L ultrafiltration yesterday, the patient remains hypoxic. Reviewed the CAT scan of the chest again. This may be a component of acute lung injury, and based on that, the patient was started on steroids. He remains on broad-spectrum antibiotics in addition. Oxygenation remains impaired. Nephrology on the case. Last hemodialysis was yesterday. No new labs are available from today. Resting comfortably in bed on 15 L of oxygen by nasal cannula. Remains on Zosyn and daptomycin. Patient was seen today on 06/24/2024, patient remains on 15 L high flow nasal cannula, surprisingly the patient tells me that he is feeling better, patient was started 2 days ago on dialysis/ultrafiltration, seems to be helping the patient significantly. His urine output is very marginal today. Patient remains on broad-spectrum antibiotics, he is being followed by many consultants including nephrology, patient remains on Zosyn and daptomycin. WBC count 17.7 hemoglobin 9.8 electrolytes showed low sodium of 130 potassium 6 BUN is 43 creatinine 2.97. To the right heel area for months now, and has been treated on outpatient setting for culture positive MRSA and positive for Proteus. Patient clearly has diabetic foot infection, and diabetic right foot ulcer. As well as stage III pressure ulcer of the right heel. Patient was seen today on 06/25/2024, patient is about the same, remains on hemodialysis, he is on 12 L high flow nasal cannula down from 15 yesterday. In spite of this the patient does not seem to be in any distress. Remains on broad-spectrum antibiotics, including Zosyn and daptomycin, patient was dialyzed yesterday, I am not certain if he is scheduled to have dialysis today. Continues to have leukocytosis with WBC of 23 hemoglobin 11.2 electrolytes are normal BUN is down to [address] of the chest from last week showed diffuse bilateral groundglass and airspace opacities throughout both lungs. And mild to moderate cardiomegaly. The findings are findings of either pulmonary edema or atypical pneumonia. Patient was seen today on 06/26/2024, patient is receiving hemodialysis today, his FiO2 requirement has gone up, today he is on Airvo at 80%. Patient is feeling better than expected considering his FiO2 requirement, chest x-ray continues show bilateral interstitial infiltrates/edema. WBC count is 11.8 hemoglobin is 10.1 potassium earlier today was 6.6 BUN 72 creatinine 4.3 and that being addressed by nephrology. Blood sugar was as high as 360 now it is 200. Objective - Vital Signs Vital signs: Vital Signs Temp 98.6 F 06/26/24 13:50 Pulse 77 06/26/24 13:50 Resp 20 06/26/24 13:50 BP 122/54 06/26/24 13:50 Pulse Ox 95 06/26/24 13:50 FiO2 80 06/26/24 12:44 Intake & Output 06/25/24 06/26/24 06/26/24 18:59 06:59 18:59 Intake Total 480 10 990 Output Total 820 62 5835 Balance 130 -10 -810 Weight 95 kg 96 kg Intake: IV 10 Invasive Line 8 10 Oral 480 240 Hemodialysis 750 Output: Stool 350 20 350 Hemodialysis 1100 Hemodialysis Net Amount 350 Other: Voiding Method Urinal Urinal # Voids 0 # Bowel Movements 0 - Exam GENERAL: The patient is alert and oriented x3, not in any acute distress. Well developed, well nourished., Airvo at 80% FiO2, and 40 L flow. HEENT: Pupils are round and equally reacting to light. EOMI. No scleral icterus. CARDIOVASCULAR: S1 and S2 present. No murmurs, rubs, or gallops. PULMONARY: Crackles and wheezes noted bilaterally ABDOMEN: Soft, nontender, nondistended, normoactive bowel sounds. No palpable organomegaly. MUSCULOSKELETAL: No joint swelling or deformity. -EXTREMITIES: No cyanosis, clubbing, or pedal edema. Right foot ulcer with dressing in place NEUROLOGICAL: Gross neurological examination did not reveal any focal deficits. SKIN: His wounds are dressed, - Labs CBC & Chem 7: 06/26/24 05:37 06/26/24 05:37 Labs: Abnormal Lab Results - Last 24 Hours (Table) 06/25/24 06/25/24 06/25/24 Range/Units 18:11 21:31 23:46 WBC (3.8-10.6) k/uL RBC (4.30-5.90) m/uL Hgb (13.0-17.5) gm/dL Hct (39.0-53.0) % MCV (80.0-100.0) fL MCHC (31.0-37.0) g/dL RDW (11.5-15.5) % Plt Count (150-450) k/uL Neutrophils # (1.3-7.7) k/uL Lymphocytes # (1.0-4.8) k/uL Sodium (137-145) mmol/L Potassium (3.5-5.1) mmol/L Chloride (98-107) mmol/L BUN (9-20) mg/dL Creatinine (0.66-1.25) mg/dL Glucose (74-99) mg/dL POC Glucose (mg/dL) 376 H 390 H 411 H (70-110) mg/dL Calcium (8.4-10.2) mg/dL 06/26/24 06/26/24 06/26/24 Range/Units 05:36 05:37 05:37 WBC 11.8 H (3.8-10.6) k/uL RBC 3.35 L (4.30-5.90) m/uL Hgb 10.1 L (13.0-17.5) gm/dL Hct 34.4 L (39.0-53.0) % MCV 102.8 H (80.0-100.0) fL MCHC 29.3 L (31.0-37.0) g/dL RDW 17.6 H (11.5-15.5) % Plt Count 122 L (150-450) k/uL Neutrophils # 11.1 H (1.3-7.7) k/uL Lymphocytes # 0.2 L (1.0-4.8) k/uL Sodium 129 L (137-145) mmol/L Potassium 6.6 H* (3.5-5.1) mmol/L Chloride 92 L (98-107) mmol/L BUN 72 H (9-20) mg/dL Creatinine 4.30 H (0.66-1.25) mg/dL Glucose 293 H (74-99) mg/dL POC Glucose (mg/dL) 360 H (70-110) mg/dL Calcium 8.3 L (8.4-10.2) mg/dL 06/26/24 Range/Units 11:19 WBC (3.8-10.6) k/uL RBC (4.30-5.90) m/uL Hgb (13.0-17.5) gm/dL Hct (39.0-53.0) % MCV (80.0-100.0) fL MCHC (31.0-37.0) g/dL RDW (11.5-15.5) % Plt Count (150-450) k/uL Neutrophils # (1.3-7.7) k/uL Lymphocytes # (1.0-4.8) k/uL Sodium (137-145) mmol/L Potassium (3.5-5.1) mmol/L Chloride (98-107) mmol/L BUN (9-20) mg/dL Creatinine (0.66-1.25) mg/dL Glucose (74-99) mg/dL POC Glucose (mg/dL) 200 H (70-110) mg/dL Calcium (8.4-10.2) mg/dL Assessment and Plan Assessment: Impression: Acute exacerbation of diastolic congestive heart failure versus interstitial edema secondary to chronic kidney disease and renal failure. Bilateral pneumonia cannot be completely excluded. Considering the patient is improving with hemodialysis that speaks in favor of pulmonary edema/fluid overload. Acute hypoxic respiratory failure, today patient is requiring Airvo and high flow with 80% / 40 L flow and is receiving hemodialysis Acute on chronic kidney disease now requiring renal replacement therapy that started June 10, 2024, underwent dialysis via permacath in the right IJ Hyperkalemia, improved Acute on chronic anemia secondary to above History of CAD with previous PCIDiabetes mellitus type II Hypertension Hyperlipidemia Chronic cephalgia History of UC with previous colectomy and ileostomy History of prostate cancer status post chemoradiation Chronic right heel wound, status post debridement on 05/28/2024 again today June 14, 2024 Obesity, with a BMI of 38.8 kg/m Recommendation: Continue oxygen and titrate accordingly presently on Airvo hopefully this will be titrated down after hemodialysis Continue hemodialysis as he seems to be improving after hemodialysis Continue bronchodilators Continue antibiotics as per ID Continue IV Solu-Medrol 40 mg IV push every 12 hours Continue GI and DVT prophylaxis Patient remains quite ill and still requiring high FiO2 Will continue to follow Time with Patient: Less than 30
--- NOTE | 2024-06-26 16:10 | P.PN ---
Subjective Progress Note Date: 06/26/24 Principal diagnosis: Reason for follow-up is right heel diabetic foot ulcer with MRSA infection Patient is a 73-year-old male with a past medical history significant for diabetes mellitus hypertension hyperlipidemia osteomyelitis patient has been dealing with a chronic nonhealing wound to the right heel area for months now and is being treated in outpatient setting by Dr. Jernigan his elastic cutter with recent outpatient culture positive for MRSA and is Proteus. On today's evaluation that is 06/26/2024,the patient denies any fever or any chills, patient is breathing comfortably however still requiring high flow nasal cannula oxygen denies any chest pain or worsening cough no abdominal pain or pain to the right lower extremity. Patient white count is down to 11.8 creatinine is 4.30 Objective - Vital Signs Vital signs: Vital Signs Temp 97.6 F 06/26/24 07:50 Pulse 81 06/26/24 11:56 Resp 6 L 06/26/24 11:56 BP 117/50 06/26/24 11:56 Pulse Ox 94 L 06/26/24 11:56 FiO2 80 06/26/24 11:56 Intake & Output 06/25/24 06/26/24 06/26/24 18:59 06:59 18:59 Intake Total 480 10 240 Output Total 350 20 350 Balance 130 -10 -110 Weight 95 kg 96 kg Intake: IV 10 Invasive Line 8 10 Oral 480 240 Output: Stool 350 20 350 Other: Voiding Method Urinal Urinal # Voids 0 # Bowel Movements 0 - Exam GENERAL DESCRIPTION: An elderly male lying in bed in no distress RESPIRATORY SYSTEM: Unlabored breathing , decreased breath sounds at bases HEART: S1 S2 regular rate and rhythm , ABDOMEN: Soft , no tenderness EXTREMITIES: Right hand wound is currently dressed - Labs CBC & Chem 7: 06/26/24 05:37 06/26/24 05:37 Labs: Abnormal Lab Results - Last 24 Hours (Table) 06/25/24 06/25/24 06/25/24 Range/Units 14:17 18:11 21:31 WBC (3.8-10.6) k/uL RBC (4.30-5.90) m/uL Hgb (13.0-17.5) gm/dL Hct (39.0-53.0) % MCV (80.0-100.0) fL MCHC (31.0-37.0) g/dL RDW (11.5-15.5) % Plt Count (150-450) k/uL Neutrophils # (1.3-7.7) k/uL Lymphocytes # (1.0-4.8) k/uL Sodium (137-145) mmol/L Potassium (3.5-5.1) mmol/L Chloride (98-107) mmol/L BUN (9-20) mg/dL Creatinine (0.66-1.25) mg/dL Glucose (74-99) mg/dL POC Glucose (mg/dL) 278 H 376 H 390 H (70-110) mg/dL Calcium (8.4-10.2) mg/dL 06/25/24 06/26/24 06/26/24 Range/Units 23:46 05:36 05:37 WBC 11.8 H (3.8-10.6) k/uL RBC 3.35 L (4.30-5.90) m/uL Hgb 10.1 L (13.0-17.5) gm/dL Hct 34.4 L (39.0-53.0) % MCV 102.8 H (80.0-100.0) fL MCHC 29.3 L (31.0-37.0) g/dL RDW 17.6 H (11.5-15.5) % Plt Count 122 L (150-450) k/uL Neutrophils # 11.1 H (1.3-7.7) k/uL Lymphocytes # 0.2 L (1.0-4.8) k/uL Sodium (137-145) mmol/L Potassium (3.5-5.1) mmol/L Chloride (98-107) mmol/L BUN (9-20) mg/dL Creatinine (0.66-1.25) mg/dL Glucose (74-99) mg/dL POC Glucose (mg/dL) 411 H 360 H (70-110) mg/dL Calcium (8.4-10.2) mg/dL 06/26/24 06/26/24 Range/Units 05:37 11:19 WBC (3.8-10.6) k/uL RBC (4.30-5.90) m/uL Hgb (13.0-17.5) gm/dL Hct (39.0-53.0) % MCV (80.0-100.0) fL MCHC (31.0-37.0) g/dL RDW (11.5-15.5) % Plt Count (150-450) k/uL Neutrophils # (1.3-7.7) k/uL Lymphocytes # (1.0-4.8) k/uL Sodium 129 L (137-145) mmol/L Potassium 6.6 H* (3.5-5.1) mmol/L Chloride 92 L (98-107) mmol/L BUN 72 H (9-20) mg/dL Creatinine 4.30 H (0.66-1.25) mg/dL Glucose 293 H (74-99) mg/dL POC Glucose (mg/dL) 200 H (70-110) mg/dL Calcium 8.3 L (8.4-10.2) mg/dL Assessment and Plan (1) Diabetic infection of right foot Current Visit: Yes Status: Acute Code(s): E11.628 - TYPE 2 DIABETES MELLITUS WITH OTHER SKIN COMPLICATIONS; L08.9 - LOCAL INFECTION OF THE SKIN AND SUBCUTANEOUS TISSUE, UNSP SNOMED Code(s): 205366547 (2) MRSA (methicillin resistant staph aureus) culture positive Current Visit: Yes Status: Acute Code(s): Z22.322 - CARRIER OR SUSPECTED CARRIER OF METHICILLIN RESIS STAPH SNOMED Code(s): 801724805 (3) Diabetic ulcer of right foot Current Visit: No Status: Acute Code(s): E11.621 - TYPE 2 DIABETES MELLITUS WITH FOOT ULCER; L97.519 - NON-PRS CHRONIC ULCER OTH PRT RIGHT FOOT W UNSP SEVERITY SNOMED Code(s): 085293072 (4) Stage III pressure ulcer of right heel Current Visit: No Status: Acute Code(s): L89.613 - PRESSURE ULCER OF RIGHT HEEL, STAGE 3 SNOMED Code(s): 61063744108748 Plan: 1patient with a chronic nonhealing wound to the right heel which he has for couple of months the wound looks deep with a recent culture positive for Proteus and MRSA concerning for wound infection and question for possible deeper infection such as osteomyelitis as wound has been there for couple of months now 2- x-rays of the right heel with no evidence of any bony changes 3-patient has been evaluated by Dr. Carpenter and did have surgical debridement completed on 06/07/2024 and did have a further debridement at the bedside by his elastic cutter on 06/14/2024 4-patient eukocytosis more likely steroid related as no evidence of any worsening infection and the patient white consulted on , 5patient to continue with Zosyn and daptomycin while and monitor clinical course closely Dictation was produced using [employer] dictation software. please excuse any grammatical, word or spelling errors.
[2024-06-26] MEDS: SODIUM ZIRCONIUM CYCLOSILICATE 10 GM PACKET PO SCH (16:44)
[2024-06-26 17:01] LABS: Creatine Kinase <20 U/L (55-170); Potassium 4.5 mmol/L (3.5-5.1)
[2024-06-26] MEDS: MIDODRINE 5 MG TAB PO SCH (18:00)
[2024-06-26 18:01] LABS: Glucose,Whole Blood 333 mg/dL (70-110)
[2024-06-26 20:29] LABS: Glucose,Whole Blood 314 mg/dL (70-110)
[2024-06-27 00:09] LABS: Glucose,Whole Blood 285 mg/dL (70-110)
[2024-06-27 06:26] LABS: Glucose,Whole Blood 166 mg/dL (70-110)
[2024-06-27 09:42] LABS: African American GFR (CKD) 20 (>60 ml/min/1.73 sqM); Anion Gap 11 mmol/L; Blood Urea Nitrogen 59 mg/dL (9-20); Calcium 8.4 mg/dL (8.4-10.2); Carbon Dioxide 28 mmol/L (22-30); Chloride 93 mmol/L (98-107); Glucose 121 mg/dL (74-99); Non-African American GFR(CKD) 17 (>60 ml/min/1.73 sqM); Potassium 5.1 mmol/L (3.5-5.1); Sodium 132 mmol/L (137-145)
[2024-06-27 11:22] LABS: Glucose,Whole Blood 153 mg/dL (70-110)
--- NOTE | 2024-06-27 12:32 | P.PN ---
Subjective Progress Note Date: 06/27/24 Patient seen for follow-up for chronic kidney disease with acute kidney injury. Initiate hemodialysis 06/10/2024. Will undergo hemodialysis again tomorrow. Labs this morning had potassium 5.1. Patient is comfortable. No acute complaints at this time. Continues to endorse producing very small amounts of urine. He continues on Airvo today with FiO2 of 66% flow of 40, saturating 95%. Objective - Vital Signs Vital signs: Vital Signs Temp 98.2 F 06/27/24 08:45 Pulse 94 06/27/24 09:18 Resp 16 06/27/24 08:45 BP 146/64 06/27/24 08:45 Pulse Ox 93 L 06/27/24 09:05 FiO2 68 06/27/24 09:05 Intake & Output 06/26/24 06/27/24 06/27/24 18:59 06:59 18:59 Intake Total 1227 20 Output Total 1900 150 Balance -673 -130 Weight 94.5 kg Intake: IV 20 Invasive Line 8 10 Invasive Line 9 10 Oral 477 Hemodialysis 750 Output: Stool 450 150 Hemodialysis 1100 Hemodialysis Net Amount 350 Other: Voiding Method Urinal Urinal # Bowel Movements 0 - Exam Patient is awake, comfortable, no acute distress. Heart: S1 and S2 heard Lungs: Bilateral breath sounds are heard Abdomen: Soft and nontender Lower extremities: No edema [employer]: grossly intact - Labs CBC & Chem 7: 06/26/24 05:37 06/27/24 09:01 Labs: Abnormal Lab Results - Last 24 Hours (Table) 06/26/24 06/26/24 06/26/24 Range/Units 11:19 16:25 17:56 Sodium (137-145) mmol/L Chloride (98-107) mmol/L BUN (9-20) mg/dL Creatinine (0.66-1.25) mg/dL Glucose (74-99) mg/dL POC Glucose (mg/dL) 200 H 333 H (70-110) mg/dL Creatine Kinase <20 L (55-170) U/L 06/26/24 06/27/24 06/27/24 Range/Units 20:28 00:07 06:24 Sodium (137-145) mmol/L Chloride (98-107) mmol/L BUN (9-20) mg/dL Creatinine (0.66-1.25) mg/dL Glucose (74-99) mg/dL POC Glucose (mg/dL) 314 H 285 H 166 H (70-110) mg/dL Creatine Kinase (55-170) U/L 06/27/24 Range/Units 09:01 Sodium 132 L (137-145) mmol/L Chloride 93 L (98-107) mmol/L BUN 59 H (9-20) mg/dL Creatinine 3.30 H (0.66-1.25) mg/dL Glucose 121 H (74-99) mg/dL POC Glucose (mg/dL) (70-110) mg/dL Creatine Kinase (55-170) U/L Assessment and Plan Assessment: #Nonoliguric ROSELYN, likely cardiorenal; start hemodialysis 06/10/2024 for worsening oliguric acute kidney injury #Acute on chronic diastolic CHF #Volume overload #Hypertension with CKD stage IV #Acute hypoxic respiratory failure secondary to CHF #CAD s/p stent placement #Metabolic acidosis maintain oral sodium bicarb - improved with dialysis #Right heel wound s/p debridement #Hyperkalemia - resolved Plan: -Initiate torsemide 40 mg daily -Morning labs show potassium 5.1, creatinine kinase <20 -Will undergo hemodialysis tomorrow morning -Switch supplemental nutrition to Nepro due to slightly decreased potassium content -Initiated on renal diet -Check labs in the morning -Avoid nephrotoxic agents -Wean FiO2 as possible -Hemodialysis set up as outpatient for M/W/F once discharged I have seen and examined the patient with resident and agree with A&P as written.
--- NOTE | 2024-06-27 12:34 | P.PN ---
Subjective Pleasant 73-year-old patient follows with Dr. Dennis. 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 Bales. April 26, [address] Bales: Following a non-ST relation [place]: Patent stent to mid LAD. Late stent thrombosis of the second diagonal branch of the LAD. Severe disease involving the OM1 appears unchanged. Attempted balloon angioplasty performed to the second of diagonal branch with suboptimal results. Dose of Imdur was increased and Ranexa was added. Patient recently in the hospital from May 28 through May 31. Chronic headaches: MRI unremarkable. MR angio head and neck: MR angio head without contrast: No evidence of aneurysm or significant stenosis. Atrophic right A1 segment. origin of the right posterior cerebral artery.MRI of the brain nonspecific. Was seen by neurology Dr. Gay. Patient to follow-up outpatient Chronic right heel wound seen by Dr. Carpenter from vascular deep debridement was carried out. No need for antibiotics. Patient to follow-up with Dr. Jernigan at the wound center. Shortness of breath: Was seen by cardiology. Not for any further intervention. Patient doing well when discharged. Patient presented increased shortness of breath when at home. His pulse ox dropped out of the 80s. Increasing shortness of breath. Decreased appetite. No fever or chills. June 10: Using his BiPAP. Patient seen this morning. Later this afternoon. Right femoral vein dialysis catheter was placed by Dr. Carpenter from vascular for dialysis. Baseline some shortness of breath. Due for first dialysis today. Patient is right heel culture grew MRSA Proteus P Corynebacterium on May 29. Patient is on IV daptomycin and IV cefepime per ID. June 11: Patient seen this afternoon. On BiPAP. Getting hemodialysis. Remains on IV daptomycin IV Zosyn. Tired. Also getting IV iron. Patient really did not eat today. Because of BiPAP. Cut back Levemir to 26 units at night. DC scheduled NovoLog for now. June 12: Overflowing the ICU. Remains on BiPAP. 04/05/%. at the bedside. Remains on IV daptomycin and IV Zosyn. For dialysis today. X-ray continues shows infiltrates. Significantly hypoxic. N.p.o. June 13: ICU. Remains on BiPAP. /6/90% moderate take anything by mouth. Spoke to the nurse have TPN lipids ordered. Remains on IV daptomycin IV Zosyn. Chest x-ray continues to show diffuse infiltrates. Continues to be followed by cardiology pulmonary ID nephrology. June 14: ICU. Later this afternoon patient was put on Airvo. 60/60. Has some delirium. Remains on IV daptomycin and IV Zosyn. Had 2 L ultrafiltration yesterday. Patient getting daily dialysis for now. As patient is oliguric per nephrology Lasix has been held. TPN was ordered yesterday per the nurse culture that returned to feed the patient. Will see how that goes. Dietitian on the case. June 15: ICU. Patient be getting hypotensive. Some medications held back by cardiology. Hemodialysis done today. Patient remains on Airvo though at 50/50. at the bedside. Plans this afternoon to get him up in the chair. Remains on daptomycin and IV Zosyn. IV Lasix been discontinued. Patient tolerating some liquid diet. June 16: Patient moved to the ICU. Remains on Airvo. 45/45. at the bedside. Tolerating full liquids. Spoke to the about the morphine. His headaches are chronic. Use Fioricet as needed. Remains on IV daptomycin and IV Zosyn. IV Solu-Medrol. Amlodipine dose cut back. PT OT. June 17: On 3 S., telemetry floor. Getting hemodialysis today. Remains on IV daptomycin IV Zosyn. On full liquid diet. Advance to ground diet. Minimal urine output. DC fluid restriction. Awake communicating. Accu-Cheks running high. Increase Levemir to 28 units subcu twice daily. Seen by PT OT. Maximum assist. On Airvo 40/40. Cut back Solu-Medrol to every 12. June 18: On a recliner. 7 L nasal cannula. Decreased appetite. at the bedside. Accu-Chek in 200s. IJ PermCath placement pending. Encourage oral intake. Ordered incentive spirometry June 19: Patient was on 7 L nasal cannula yesterday. Patient back on Airvo today. 40 L. Due for hemodialysis today. Had perm dialysis catheter placed right IJ by Dr. Carpenter today. Minimal intake today. Discussed with at the bedside. June 20: Recliner. High flow 15 L nasal cannula. at the bedside. Decreased oral intake.Tired. Hemodialysis today. June 21: Still decreased appetite. Remains on high flow 15 l nasal cannula. Remains on IV daptomycin IV Zosyn per ID. Being followed by multiple consultants spoke to the patient and . Encourage oral intake. June 22: Remains on 15 L high flow nasal cannula. at the bedside. Di et. Remains on IV daptomycin IV Zosyn. Decreased appetite. Will try ground diet. June 23: Monday to the bed. Ate a bit better according to the . Remains on 15 L nasal cannula. Oral candidiasis. Diflucan 200 mg x 1 today. Then 100 mg 3 times a week after each dialysis. Remains on daptomycin IV Zosyn per ID. Discussed with patient 06/24 I am resuming the care of the patient today He is sitting at the edge of the bed feels comfortable. Still requiring 15 units of oxygen, he states that he feels better than yesterday after he was started on IV Solu-Medrol 40 mg twice daily. At home he was not on oxygen Also he is on daptomycin and Diflucan. He is also on antibiotic for his right foot ulcer with dressing in place. No pain 06/25 Patient feels the same Oxygen requirements down from 15 down to 12 L/min His labs showing more hemoconcentration with leukocytosis 23K, hemoglobin 12.2 and platelet 128 all went up little bit. Creatinine 2.5. Sodium improved 132 He remains on Zosyn daptomycin and fluconazole and IV Solu-Medrol 40 mg twice daily 06/26 Patient is breathing quietly while he is sitting in bed. He is getting 11 L via nasal cannula in the morning, however later on it looks like his oxygen supply was increased. Patient denies any other new symptoms His sodium today was 129 and potassium elevated 6.6 and creatinine 4.3. Patient getting dialysis for hyperkalemia protocol. WBC went down to 11.8. Hemoglobin stable at 10.1. Platelet count 122. Remains on triple antibiotics with Diflucan, daptomycin and Zosyn. Also is on IV Solu-Medrol 40 mg twice daily. No more panic attack. Yesterday after rounding he developed panic attacks and improved with Xanax 06/27 Patient required more oxygen starting yesterday and today his saturation well on higher dose of oxygen 40 L/min with FiO2 of 66% Chest x-ray showing cardiomegaly, pulmonary vascular congestion and pleural effusion Currently patient torsemide 40 mg daily Also is getting hemodialysis yesterday and there is another dialysis going on for tomorrow Also he remains on IV Solu-Medrol 40 mg and broad-spectrum antibiotics as above Objective - Vital Signs Vital signs: Vital Signs Temp 98.2 F 06/27/24 08:45 Pulse 94 06/27/24 09:18 Resp 16 06/27/24 08:45 BP 146/64 06/27/24 08:45 Pulse Ox 95 06/27/24 11:50 FiO2 66 06/27/24 11:50 Intake & Output 06/26/24 06/27/24 06/27/24 18:59 06:59 18:59 Intake Total 1227 20 118 Output Total 1900 150 Balance -673 -130 118 Weight 94.5 kg Intake: IV 20 Invasive Line 8 10 Invasive Line 9 10 Oral 477 118 Hemodialysis 750 Output: Stool 450 150 Hemodialysis 1100 Hemodialysis Net Amount 350 Other: Voiding Method Urinal Urinal # Bowel Movements 0 - Exam GENERAL: The patient is alert and oriented x3, not in any acute distress. Well developed, well nourished. HEENT: Pupils are round and equally reacting to light. EOMI. No scleral icterus. No conjunctival pallor. Normocephalic, atraumatic. No pharyngeal erythema. No thyromegaly. CARDIOVASCULAR: S1 and S2 present. No murmurs, rubs, or gallops. -PULMONARY: Chest is clear to auscultation, bilateral crackles. And scattered wheezing ABDOMEN: Soft, nontender, nondistended, normoactive bowel sounds. No palpable organomegaly. MUSCULOSKELETAL: No joint swelling or deformity. -EXTREMITIES: No cyanosis, clubbing, or pedal edema. Right foot ulcer with dressing in place NEUROLOGICAL: Gross neurological examination did not reveal any focal deficits. SKIN: No rashes. no petechiae. - Labs CBC & Chem 7: 06/26/24 05:37 06/27/24 09:01 Labs: Abnormal Lab Results - Last 24 Hours (Table) 06/26/24 06/26/24 06/26/24 Range/Units 16:25 17:56 20:28 Sodium (137-145) mmol/L Chloride (98-107) mmol/L BUN (9-20) mg/dL Creatinine (0.66-1.25) mg/dL Glucose (74-99) mg/dL POC Glucose (mg/dL) 333 H 314 H (70-110) mg/dL Creatine Kinase <20 L (55-170) U/L 06/27/24 06/27/24 06/27/24 Range/Units 00:07 06:24 09:01 Sodium 132 L (137-145) mmol/L Chloride 93 L (98-107) mmol/L BUN 59 H (9-20) mg/dL Creatinine 3.30 H (0.66-1.25) mg/dL Glucose 121 H (74-99) mg/dL POC Glucose (mg/dL) 285 H 166 H (70-110) mg/dL Creatine Kinase (55-170) U/L 06/27/24 Range/Units 11:21 Sodium (137-145) mmol/L Chloride (98-107) mmol/L BUN (9-20) mg/dL Creatinine (0.66-1.25) mg/dL Glucose (74-99) mg/dL POC Glucose (mg/dL) 153 H (70-110) mg/dL Creatine Kinase (55-170) U/L Assessment and Plan Assessment: Assessment and plan: -Acute on chronic congestive heart failure exacerbation, from diastolic dysfunction EF 55 to 60%.: Better Received IV Lasix Started on dialysis June 10. -Acute hypoxic respiratory failure from pulmonary edema: Slow to respond. Possible elements of bronchospasm Initially BiPAP 12//90%. Then Airvo. Today high flow 15 L nasal cannula -Acute respiratory distress syndrome, multifactorial: Slowly improving On Airvo initially Received IV Solu-Medrol: Discontinued and then resumed again on 06/23 -COPD non-smoker DuoNeb 4 times daily. Nebulized Pulmicort Started on IV Solu-Medrol 40 mg twice daily -Chronic ostomy-functioning well -Chronic cephalgia. Patient stated headaches for greater than 6 months. Practically every day. Does not interfere with his eating. No exacerbating relieving factors: Possible tension headaches. CT scan of the brain shows some chronic changes MRI and MRI of the brain showing chronic changes. Seen by Dr. Gay from neurology a week ago. Further outpatient follow-up with neurology -Acute delirium/metabolic encephalopathy. Multifactorial: Better -Acute oropharyngeal candidiasis Diflucan 2 1 mg x 1 today. 1000 mg 3 times a week after hemodialysis -Right heel wound. Dry. Follows with Dr. Jernigan at the wound center. Dr. Carpenter from vascular-. Deep debridement carried recently Wound culture [May 29] MRSA, Proteus IV cefepime, daptomycin per ID -Chronic parastomal hernia #Hypertension: Amlodipine. Toprol-XL. Hydralazine -Acute kidney injury, likely cardiorenal: On hemodialysis Right femoral vein dialysis catheter placed by Dr. Carpenter on June 10. Hemodialysis started June 10-Daily Right IJ PermCath placement -CKD likely nephrosclerosis, diabetic nephropathy Creatinine was 1.6 on April 28, 2024. -CAD with stent Toprol-XL -Anemia in the setting of chronic kidney disease. Iron deficiency anemia. Given IV iron -Primary osteoarthritis Pain medication as needed -History of prostate cancer with radiation and chemo in 2020. #Diabetes mellitus type II, chronically on insulin: Uncontrolled with hyperglycemia Levemir to 28 units SQ every 12 #Hyperlipidemia: Lipitor #GERD: Protonix -Full code
--- NOTE | 2024-06-27 13:25 | P.PN ---
Subjective Progress Note Date: 06/27/24 Principal diagnosis: Acute on chronic diastolic congestive heart failure and acute hypoxic respiratory failure Patient is a 73-year-old male with past medical history significant for hypertension, hyperlipidemia, coronary artery disease with previous PCI/stenting, heart failure, chronic kidney disease, diabetes mellitus, chronic right heel wound, ulcerative colitis with previous colectomy and ileostomy. Of note, patient had a recent hospitalization late May and was just discharged 05/31/2024 for CHF exacerbation. Echocardiogram done during this hospitalization estimating a preserved left ventricular ejection fraction of 55 to 60%. Limited study, but no acute valvular abnormalities reported. Presented the emergency department on 06/04/2024 with a chief complaint of shortness of breath, mostly on exertion. Chest x-ray showing cardiomegaly, mild pulmonary vascular congestion, and a small pleural effusion on the left. NT proBNP elevated 2550. Currently receiving Lasix 80 mg twice daily. CBC: WBC count 10.2, hemoglobin 10.4, hematocrit 32.5, platelets 374. CMP: Sodium 135, potassium 4.6, chloride 101, serum bicarb 18, BUN 66, creatinine 2.71, glucose 139. Troponin is less than 0.012. Patient currently being evaluated on the general medical floor. Appears weak and deconditioned. He is resting in bed on 1 L/min nasal cannula. No respiratory distress noted. Complaining of a generalized headache, which he states is chronic. States that he has been short of breath on exertion for several months to almost 1 year. Particularly on exertion such as climbing stairs or walking to the bathroom. Denies history of COPD or asthma. Never tobacco smoker. Worked in an [employer] shop before he retired. Denies cough. Denies infectious-like symptoms. Current vital signs: Temperature 98 F, heart rate 78 bpm, blood pressure 145/54 mmHg, nontachypneic, SpO2 recorded at 91% on 1 L/min nasal cannula. On 06/21/2024, the patient is being seen for a follow-up. Remains on 15 L of oxygen by nasal cannula. Underwent hemodialysis yesterday and there is no considerable improvement in the patient's oxygenation. At the same time, the follow-up chest x-ray that was done today showed airspace opacities and bilateral pleural effusions. Although CHF and volume overload is highly suspected. Nevertheless, the response to d dialysis has been suboptimal for now. The patient is comfortable. He is feeling a bit weak. He has a right IJ permacath in place. He remains on a combination of Zosyn and daptomycin for a wound infection and ID is on the case. Urine output is minimal at this point in time. Remains on bronchodilators. Rest of the medications remain unchanged. The white cell count of 20 with a hemoglobin of 11.6 and a platelet count of 150 . BUN is 45 with a creatinine of 3.3 and a sodium levels at 134 and potassium level is at 5.3. No other significant events overnight. Discussed the case with the medical team. On 06/22/2024, the patient remains on 15 l of oxygen by nasal cannula. A CAT scan of the chest was done yesterday and the CAT scan showed diffuse bilateral groundglass and airspace opacities throughout the lungs bilaterally consistent with pulmonary edema although atypical infections/acute lung injury cannot be completely ruled out. He has mild to moderate cardiomegaly and cholelithiasis. I suspect those findings are related to interstitial edema and the patient with further respond to dialysis and ultrafiltration. The plan for now is to undergo dialysis with a total of 3 L of ultrafiltration. The patient was started back on IV Solu-Medrol. The white cell count is 17.5, hemoglobin 9.9, platelet count is 116. Sodium level is at 129, BUN 67 with a creatinine of 4.8. He is resting comfortably in bed. He does have some mild shortness of breath even at rest. On 06/23/2024, the patient is being seen for a follow-up. The patient remains on 15 L of oxygen by nasal cannula. I was considering the possibility of interstitial edema/fluid overload contributing to the patient's shortness of breath and hypoxemia. However, despite undergoing a 3 L ultrafiltration yesterday, the patient remains hypoxic. Reviewed the CAT scan of the chest again. This may be a component of acute lung injury, and based on that, the patient was started on steroids. He remains on broad-spectrum antibiotics in addition. Oxygenation remains impaired. Nephrology on the case. Last hemodialysis was yesterday. No new labs are available from today. Resting comfortably in bed on 15 L of oxygen by nasal cannula. Remains on Zosyn and daptomycin. Patient was seen today on 06/24/2024, patient remains on 15 L high flow nasal cannula, surprisingly the patient tells me that he is feeling better, patient was started 2 days ago on dialysis/ultrafiltration, seems to be helping the patient significantly. His urine output is very marginal today. Patient remains on broad-spectrum antibiotics, he is being followed by many consultants including nephrology, patient remains on Zosyn and daptomycin. WBC count 17.7 hemoglobin 9.8 electrolytes showed low sodium of 130 potassium 6 BUN is 43 creatinine 2.97. To the right heel area for months now, and has been treated on outpatient setting for culture positive MRSA and positive for Proteus. Patient clearly has diabetic foot infection, and diabetic right foot ulcer. As well as stage III pressure ulcer of the right heel. Patient was seen today on 06/25/2024, patient is about the same, remains on hemodialysis, he is on 12 L high flow nasal cannula down from 15 yesterday. In spite of this the patient does not seem to be in any distress. Remains on broad-spectrum antibiotics, including Zosyn and daptomycin, patient was dialyzed yesterday, I am not certain if he is scheduled to have dialysis today. Continues to have leukocytosis with WBC of 23 hemoglobin 11.2 electrolytes are normal BUN is down to [address] of the chest from last week showed diffuse bilateral groundglass and airspace opacities throughout both lungs. And mild to moderate cardiomegaly. The findings are findings of either pulmonary edema or atypical pneumonia. Patient was seen today on 06/26/2024, patient is receiving hemodialysis today, his FiO2 requirement has gone up, today he is on Airvo at 80%. Patient is feeling better than expected considering his FiO2 requirement, chest x-ray continues show bilateral interstitial infiltrates/edema. WBC count is 11.8 hemoglobin is 10.1 potassium earlier today was 6.6 BUN 72 creatinine 4.3 and that being addressed by nephrology. Blood sugar was as high as 360 now it is 200. Patient was seen today on 06/27/2024, basically he is about the same, intermittently on Airvo and sometimes on BiPAP, still running low O2 saturation, chest x-ray discharge showing worsening interstitial edema, he felt better yesterday after his hemodialysis, today obviously he needs to go back on BiPAP. He was earlier on Airvo with FiO2 of 65% and 40 L flow, patient seemed to do much better when on BiPAP. Chest x-ray again is showing worsening vascular congestion andPulmonary edema, basic metabolic profile is normal bicarb is normal BUN is 59 creatinine 3.30. Objective - Vital Signs Vital signs: Vital Signs Temp 98.2 F 06/27/24 08:45 Pulse 81 06/27/24 12:58 Resp 14 06/27/24 12:58 BP 133/58 06/27/24 12:58 Pulse Ox 98 06/27/24 12:58 FiO2 70 06/27/24 12:58 Intake & Output 06/26/24 06/27/24 06/27/24 18:59 06:59 18:59 Intake Total 1227 20 118 Output Total 1900 150 Balance -673 -130 118 Weight 94.5 kg Intake: IV 20 Invasive Line 8 10 Invasive Line 9 10 Oral 477 118 Hemodialysis 750 Output: Stool 450 150 Hemodialysis 1100 Hemodialysis Net Amount 350 Other: Voiding Method Urinal Urinal # Bowel Movements 0 - Exam GENERAL: The patient is alert and oriented x3, not in any acute distress. Well developed, well nourished., Airvo at 65% and 40 L flow HEENT: Pupils are round and equally reacting to light. EOMI. No scleral icterus. CARDIOVASCULAR: S1 and S2 present. No murmurs, rubs, or gallops. PULMONARY: Bilateral crackles persists and rhonchi bilaterally. ABDOMEN: Soft, nontender, nondistended, normoactive bowel sounds. No palpable organomegaly. MUSCULOSKELETAL: No joint swelling or deformity. -EXTREMITIES: No cyanosis, clubbing, or pedal edema. Right foot ulcer with dressing in place NEUROLOGICAL: Gross neurological examination did not reveal any focal deficits. SKIN: His wounds are dressed, - Labs CBC & Chem 7: 06/26/24 05:37 06/27/24 09:01 Labs: Abnormal Lab Results - Last 24 Hours (Table) 06/26/24 06/26/24 06/26/24 Range/Units 16:25 17:56 20:28 Sodium (137-145) mmol/L Chloride (98-107) mmol/L BUN (9-20) mg/dL Creatinine (0.66-1.25) mg/dL Glucose (74-99) mg/dL POC Glucose (mg/dL) 333 H 314 H (70-110) mg/dL Creatine Kinase <20 L (55-170) U/L 06/27/24 06/27/24 06/27/24 Range/Units 00:07 06:24 09:01 Sodium 132 L (137-145) mmol/L Chloride 93 L (98-107) mmol/L BUN 59 H (9-20) mg/dL Creatinine 3.30 H (0.66-1.25) mg/dL Glucose 121 H (74-99) mg/dL POC Glucose (mg/dL) 285 H 166 H (70-110) mg/dL Creatine Kinase (55-170) U/L 06/27/24 Range/Units 11:21 Sodium (137-145) mmol/L Chloride (98-107) mmol/L BUN (9-20) mg/dL Creatinine (0.66-1.25) mg/dL Glucose (74-99) mg/dL POC Glucose (mg/dL) 153 H (70-110) mg/dL Creatine Kinase (55-170) U/L Assessment and Plan Assessment: Impression: Acute exacerbation of diastolic congestive heart failure versus interstitial edema secondary to chronic kidney disease and renal failure. Bilateral pneumonia cannot be completely excluded. Considering the patient is improving with hemodialysis that speaks in favor of pulmonary edema/fluid overload. Acute hypoxic respiratory failure, today patient is requiring Airvo and high flow with 80% / 40 L flow and is receiving hemodialysis Acute on chronic kidney disease now requiring renal replacement therapy that started June 10, 2024, underwent dialysis via permacath in the right IJ Hyperkalemia, improved Acute on chronic anemia secondary to above History of CAD with previous PCIDiabetes mellitus type II Hypertension Hyperlipidemia Chronic cephalgia History of UC with previous colectomy and ileostomy History of prostate cancer status post chemoradiation Chronic right heel wound, status post debridement on 05/28/2024 again today June 14, 2024 Obesity, with a BMI of 38.8 kg/m Recommendation: Overall the patient does not seem to be making any significant improvement over the last 5 days, he improves briefly when he goes on hemodialysis, but he seems to get worse again, patient remains intermittently on BiPAP and on Airvo Continue oxygen and titrate accordingly presently on Airvo Continue hemodialysis as he seems to be improving after hemodialysis Continue bronchodilators Continue antibiotics as per ID, patient is now on Zosyn Continue IV Solu-Medrol 40 mg IV push every 12 hours Continue GI and DVT prophylaxis Remains relatively ill and not quite ready for any discharge planning. Overall prognosis seems to be poor based on the history and based on the course since admission. Will continue to follow Time with Patient: Less than 30
[2024-06-27 16:52] LABS: Glucose,Whole Blood 184 mg/dL (70-110)
[2024-06-27] MEDS: INSULIN LISPRO (HumaLOG) 100 UNIT/ML 10 mL VL SQ SCH (17:21)
[2024-06-27 18:43] LABS: Glucose,Whole Blood 199 mg/dL (70-110)
[2024-06-28 00:17] LABS: Glucose,Whole Blood 151 mg/dL (70-110)
[2024-06-28 06:19] LABS: Glucose,Whole Blood 114 mg/dL (70-110)
[2024-06-28 06:59] LABS: African American GFR (CKD) 13 (>60 ml/min/1.73 sqM); Anion Gap 15 mmol/L; Blood Urea Nitrogen 92 mg/dL (9-20); Calcium 8.5 mg/dL (8.4-10.2); Carbon Dioxide 24 mmol/L (22-30); Chloride 93 mmol/L (98-107); Glucose 107 mg/dL (74-99); Non-African American GFR(CKD) 12 (>60 ml/min/1.73 sqM); Sodium 132 mmol/L (137-145)
--- NOTE | 2024-06-28 07:47 | P.PN ---
Subjective Pleasant 73-year-old patient follows with Dr. Dennis. 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 Bales Chronic medical conditions include hypertension, hyperlipidemia, type 2 diabetes, mood disorder, and CAD , ostomy for 25 years, July 2023 stent to the LAD and second diagonal branch by Dr. Bales. April 26, [address] Bales: Following a non-ST relation [place]: Patent stent to mid LAD. Late stent thrombosis of the second diagonal branch of the LAD. Severe disease involving the OM1 appears unchanged. Attempted balloon angioplasty performed to the second of diagonal branch with suboptimal results. Dose of Imdur was increased and Ranexa was added. Patient recently in the hospital from May 28 through May 31. Chronic headaches: MRI unremarkable. MR angio head and neck: MR angio head without contrast: No evidence of aneurysm or significant stenosis. Atrophic right A1 segment. origin of the right posterior cerebral artery.MRI of the brain nonspecific. Was seen by neurology Dr. Gay. Patient to follow-up outpatient Chronic right heel wound seen by Dr. Carpenter from vascular deep debridement was carried out. No need for antibiotics. Patient to follow-up with Dr. Jernigan at the wound center. Shortness of breath: Was seen by cardiology. Not for any further intervention. Patient doing well when discharged. Patient presented increased shortness of breath when at home. His pulse ox dropped out of the 80s. Increasing shortness of breath. Decreased appetite. No fever or chills. June 10: Using his BiPAP. Patient seen this morning. Later this afternoon. Right femoral vein dialysis catheter was placed by Dr. Carpenter from vascular for dialysis. Baseline some shortness of breath. Due for first dialysis today. Patient is right heel culture grew MRSA Proteus P Corynebacterium on May 29. Patient is on IV daptomycin and IV cefepime per ID. June 11: Patient seen this afternoon. On BiPAP. Getting hemodialysis. Remains on IV daptomycin IV Zosyn. Tired. Also getting IV iron. Patient really did not eat today. Because of BiPAP. Cut back Levemir to 26 units at night. DC scheduled NovoLog for now. June 12: Overflowing the ICU. Remains on BiPAP. 04/05/%. at the bedside. Remains on IV daptomycin and IV Zosyn. For dialysis today. X-ray continues shows infiltrates. Significantly hypoxic. N.p.o. June 13: ICU. Remains on BiPAP. /6/90% moderate take anything by mouth. Spoke to the nurse have TPN lipids ordered. Remains on IV daptomycin IV Zosyn. Chest x-ray continues to show diffuse infiltrates. Continues to be followed by cardiology pulmonary ID nephrology. June 14: ICU. Later this afternoon patient was put on Airvo. 60/60. Has some delirium. Remains on IV daptomycin and IV Zosyn. Had 2 L ultrafiltration yesterday. Patient getting daily dialysis for now. As patient is oliguric per nephrology Lasix has been held. TPN was ordered yesterday per the nurse culture that returned to feed the patient. Will see how that goes. Dietitian on the case. June 15: ICU. Patient be getting hypotensive. Some medications held back by cardiology. Hemodialysis done today. Patient remains on Airvo though at 50/50. at the bedside. Plans this afternoon to get him up in the chair. Remains on daptomycin and IV Zosyn. IV Lasix been discontinued. Patient tolerating some liquid diet. June 16: Patient moved to the ICU. Remains on Airvo. 45/45. at the bedside. Tolerating full liquids. Spoke to the about the morphine. His headaches are chronic. Use Fioricet as needed. Remains on IV daptomycin and IV Zosyn. IV Solu-Medrol. Amlodipine dose cut back. PT OT. June 17: On 3 S., telemetry floor. Getting hemodialysis today. Remains on IV daptomycin IV Zosyn. On full liquid diet. Advance to ground diet. Minimal urine output. DC fluid restriction. Awake communicating. Accu-Cheks running high. Increase Levemir to 28 units subcu twice daily. Seen by PT OT. Maximum assist. On Airvo 40/40. Cut back Solu-Medrol to every 12. June 18: On a recliner. 7 L nasal cannula. Decreased appetite. at the bedside. Accu-Chek in 200s. IJ PermCath placement pending. Encourage oral intake. Ordered incentive spirometry June 19: Patient was on 7 L nasal cannula yesterday. Patient back on Airvo today. 40 L. Due for hemodialysis today. Had perm dialysis catheter placed right IJ by Dr. Carpenter today. Minimal intake today. Discussed with at the bedside. June 20: Recliner. High flow 15 L nasal cannula. at the bedside. Decreased oral intake.Tired. Hemodialysis today. June 21: Still decreased appetite. Remains on high flow 15 l nasal cannula. Remains on IV daptomycin IV Zosyn per ID. Being followed by multiple consultants spoke to the patient and . Encourage oral intake. June 22: Remains on 15 L high flow nasal cannula. at the bedside. Di et. Remains on IV daptomycin IV Zosyn. Decreased appetite. Will try ground diet. June 23: Monday to the bed. Ate a bit better according to the . Remains on 15 L nasal cannula. Oral candidiasis. Diflucan 200 mg x 1 today. Then 100 mg 3 times a week after each dialysis. Remains on daptomycin IV Zosyn per ID. Discussed with patient 06/24 I am resuming the care of the patient today He is sitting at the edge of the bed feels comfortable. Still requiring 15 units of oxygen, he states that he feels better than yesterday after he was started on IV Solu-Medrol 40 mg twice daily. At home he was not on oxygen Also he is on daptomycin and Diflucan. He is also on antibiotic for his right foot ulcer with dressing in place. No pain 06/25 Patient feels the same Oxygen requirements down from 15 down to 12 L/min His labs showing more hemoconcentration with leukocytosis 23K, hemoglobin 12.2 and platelet 128 all went up little bit. Creatinine 2.5. Sodium improved 132 He remains on Zosyn daptomycin and fluconazole and IV Solu-Medrol 40 mg twice daily 06/26 Patient is breathing quietly while he is sitting in bed. He is getting 11 L via nasal cannula in the morning, however later on it looks like his oxygen supply was increased. Patient denies any other new symptoms His sodium today was 129 and potassium elevated 6.6 and creatinine 4.3. Patient getting dialysis for hyperkalemia protocol. WBC went down to 11.8. Hemoglobin stable at 10.1. Platelet count 122. Remains on triple antibiotics with Diflucan, daptomycin and Zosyn. Also is on IV Solu-Medrol 40 mg twice daily. No more panic attack. Yesterday after rounding he developed panic attacks and improved with Xanax 06/27 Patient required more oxygen starting yesterday and today his saturation well on higher dose of oxygen 40 L/min with FiO2 of 66% Chest x-ray showing cardiomegaly, pulmonary vascular congestion and pleural effusion Currently patient torsemide 40 mg daily Also is getting hemodialysis yesterday and there is another dialysis going on for tomorrow Also he remains on IV Solu-Medrol 40 mg and broad-spectrum antibiotics as above 06/28 Since yesterday patient oxygen requirement started worsening significantly he was placed on high flow nasal cannula at 40 L with FiO2 of 60 to 66%. By the e vening patient required to be placed on BiPAP and he was sent to the ICU. Repeat chest x-ray showing cardiomegaly with pulmonary vascular congestion. Echocardiogram from 05/29/2024 showing ejection fraction of 55 to 60%. Patient also undergoing hemodialysis. Creatinine increased today to 4.63. Remains on torsemide, IV Solu-Medrol antibiotics with Zosyn daptomycin and fluconazole Objective - Vital Signs Vital signs: Vital Signs Temp 97.6 F 06/28/24 04:00 Pulse 67 06/28/24 06:30 Resp 14 06/28/24 06:30 BP 115/58 06/28/24 06:30 Pulse Ox 95 06/28/24 06:30 FiO2 60 06/28/24 04:18 Intake & Output 06/27/24 06/28/24 06/28/24 18:59 06:59 18:59 Intake Total 118 100 Output Total 300 0 Balance -182 100 Weight 94.5 kg 99.2 kg Intake: IV 100 Piperacillin-Tazobactam 3 100 .375 gm In Sodium Chloride 0.9% 100 ml @ 25 mls/hr IVPB Q12HR [facility] Rx #:[id number] Oral 118 Output: Urine 0 0 Stool 300 - Exam GENERAL: The patient is alert and oriented x3, not in any acute distress. Well developed, well nourished. HEENT: Pupils are round and equally reacting to light. EOMI. No scleral icterus. No conjunctival pallor. Normocephalic, atraumatic. No pharyngeal erythema. No thyromegaly. CARDIOVASCULAR: S1 and S2 present. No murmurs, rubs, or gallops. -PULMONARY: Chest is clear to auscultation, bilateral crackles. And scattered wheezing ABDOMEN: Soft, nontender, nondistended, normoactive bowel sounds. No palpable organomegaly. MUSCULOSKELETAL: No joint swelling or deformity. -EXTREMITIES: No cyanosis, clubbing, or pedal edema. Right foot ulcer with dressing in place NEUROLOGICAL: Gross neurological examination did not reveal any focal deficits. SKIN: No rashes. no petechiae. - Labs CBC & Chem 7: 06/26/24 05:37 06/28/24 05:47 Labs: Abnormal Lab Results - Last 24 Hours (Table) 06/27/24 06/27/24 06/27/24 Range/Units 09:01 11:21 16:50 Sodium 132 L (137-145) mmol/L Chloride 93 L (98-107) mmol/L BUN 59 H (9-20) mg/dL Creatinine 3.30 H (0.66-1.25) mg/dL Glucose 121 H (74-99) mg/dL POC Glucose (mg/dL) 153 H 184 H (70-110) mg/dL 06/27/24 06/28/24 06/28/24 Range/Units 18:41 00:15 05:47 Sodium 132 L (137-145) mmol/L Chloride 93 L (98-107) mmol/L BUN 92 H (9-20) mg/dL Creatinine 4.63 H (0.66-1.25) mg/dL Glucose 107 H (74-99) mg/dL POC Glucose (mg/dL) 199 H 151 H (70-110) mg/dL 06/28/24 Range/Units 06:18 Sodium (137-145) mmol/L Chloride (98-107) mmol/L BUN (9-20) mg/dL Creatinine (0.66-1.25) mg/dL Glucose (74-99) mg/dL POC Glucose (mg/dL) 114 H (70-110) mg/dL Assessment and Plan Assessment: Assessment and plan: -Acute on chronic congestive heart failure exacerbation, from diastolic dysfunction EF 55 to 60%.: Better Received torsemide. Ulceration, on hemodialysis Started on dialysis June 10. -Acute hypoxic respiratory failure from pulmonary edema: Slow to respond. Possible elements of bronchospasm Initially BiPAP 12/6/90%. Then Airvo. Patient requiring more oxygenation and currently was placed on BiPAP. -Acute respiratory distress syndrome, multifactorial: Slowly improving On Airvo initially Received IV Solu-Medrol: Discontinued and then resumed again on 06/23 -COPD non-smoker DuoNeb 4 times daily. Nebulized Pulmicort Started on IV Solu-Medrol 40 mg twice daily -Chronic ostomy-functioning well -Chronic cephalgia. Patient stated headaches for greater than 6 months. Practically every day. Does not interfere with his eating. No exacerbating relieving factors: Possible tension headaches. CT scan of the brain shows some chronic changes MRI and MRI of the brain showing chronic changes. Seen by Dr. Gay from neurology a week ago. Further outpatient follow-up with neurology -Acute delirium/metabolic encephalopathy. Multifactorial: Better -Acute oropharyngeal candidiasis Diflucan 2 1 mg x 1 today. 1000 mg 3 times a week after hemodialysis -Right heel wound. Dry. Follows with Dr. Jernigan at the wound center. Dr. Carpenter from vascular-. Deep debridement carried recently Wound culture [May 29] MRSA, Proteus IV cefepime, daptomycin per ID -Chronic parastomal hernia #Hypertension: Amlodipine. Toprol-XL. Hydralazine -Acute kidney injury, likely cardiorenal: On hemodialysis Right femoral vein dialysis catheter placed by Dr. Carpenter on June 10. Hemodialysis started June 10-Daily Right IJ PermCath placement -CKD likely nephrosclerosis, diabetic nephropathy Creatinine was 1.6 on April 28, 2024. -CAD with stent Toprol-XL -Anemia in the setting of chronic kidney disease. Iron deficiency anemia. Given IV iron -Primary osteoarthritis Pain medication as needed -History of prostate cancer with radiation and chemo in 2020. #Diabetes mellitus type II, chronically on insulin: Uncontrolled with hyperglycemia Levemir to 28 units SQ every 12 #Hyperlipidemia: Lipitor #GERD: Protonix -Full code
--- NOTE | 2024-06-28 09:26 | XR ---
EXAMINATION TYPE: XR chest 1V portable DATE OF EXAM: 06/28/2024 8:26 AM COMPARISON: None. CLINICAL INDICATION: Male, 73 years old with history of chf, TECHNIQUE: XR chest 1V portable view(s) obtained. FINDINGS: The heart size is enlarged. The pulmonary vasculature is somewhat prominent. Diffuse increased lung markings are present. Correlate for pulmonary edema. Catheter is present on the right with the tips in the right atrium. IMPRESSION: 1. Clinical correlation for congestive heart failure and pulmonary edema. [facility], , 06/28/2024 9:23 AM
[2024-06-28] MEDS: MIDODRINE 5 MG TAB PO ONE (09:50)
[2024-06-28 10:04] LABS: Anisocytosis Slight; Basophils % (A) 0 %; Eosinophils % (A) 0 %; HGB 9.6 gm/dL (13.0-17.5); Hypochromasia Marked; Lymphocytes # (A) 0.2 k/uL (1.0-4.8); Lymphocytes % (A) 2 %; MCH 30.7 pg (25.0-35.0); MCHC 30.1 g/dL (31.0-37.0); MCV 101.9 fL (80.0-100.0); Macrocytosis Moderate; Mean Platelet Volume 11.5; Monocytes # (A) 0.3 k/uL (0-1.0); Monocytes % (A) 3 %; Neutrophils % (A) 94 %; Platelet Count 112 k/uL (150-450); RBC 3.13 m/uL (4.30-5.90); RDW 17.2 % (11.5-15.5); WBC 9.6 k/uL (3.8-10.6)
--- NOTE | 2024-06-28 10:09 | P.PN ---
Subjective Patient seen for follow-up for chronic kidney disease with acute kidney injury. Initiated hemodialysis 06/10/2024. Transferred to the ICU yesterday due to higher oxygen demand. Currently on BiPAP. Was on 100% but now 60%. Vital signs are stable. General: Resting in bed. No acute distress. HEENT: On BiPAP. LUNGS: Scattered rhonchi. HEART: Rate and Rhythm are regular. ABDOMEN: Obese, nontender. EXTREMITITES: Trace edema. Objective - Vital Signs Vital signs: Vital Signs Temp 96.7 F L 06/28/24 08:00 Pulse 71 06/28/24 09:00 Resp 15 06/28/24 09:00 BP 119/47 06/28/24 09:00 Pulse Ox 92 L 06/28/24 09:00 FiO2 60 06/28/24 09:00 Intake & Output 06/27/24 06/28/24 06/28/24 18:59 06:59 18:59 Intake Total 118 100 45 Output Total 300 0 Balance -182 100 45 Weight 94.5 kg 99.2 kg 99.2 kg Intake: IV 100 45 .9NS 20 Piperacillin-Tazobactam 3 100 25 .375 gm In Sodium Chloride 0.9% 100 ml @ 25 mls/hr IVPB Q12HR [facility] Rx #:[id number] Oral 118 Output: Urine 0 0 Stool 300 - Labs CBC & Chem 7: 06/28/24 05:47 06/28/24 05:47 Labs: Abnormal Lab Results - Last 24 Hours (Table) 06/27/24 06/27/24 06/27/24 Range/Units 11:21 16:50 18:41 RBC (4.30-5.90) m/uL Hgb (13.0-17.5) gm/dL Hct (39.0-53.0) % MCV (80.0-100.0) fL MCHC (31.0-37.0) g/dL RDW (11.5-15.5) % Plt Count (150-450) k/uL Neutrophils # (1.3-7.7) k/uL Lymphocytes # (1.0-4.8) k/uL Sodium (137-145) mmol/L Chloride (98-107) mmol/L BUN (9-20) mg/dL Creatinine (0.66-1.25) mg/dL Glucose (74-99) mg/dL POC Glucose (mg/dL) 153 H 184 H 199 H (70-110) mg/dL 06/28/24 06/28/24 06/28/24 Range/Units 00:15 05:47 05:47 RBC 3.13 L (4.30-5.90) m/uL Hgb 9.6 L (13.0-17.5) gm/dL Hct 32.0 L (39.0-53.0) % MCV 101.9 H (80.0-100.0) fL MCHC 30.1 L (31.0-37.0) g/dL RDW 17.2 H (11.5-15.5) % Plt Count 112 L (150-450) k/uL Neutrophils # 9.0 H (1.3-7.7) k/uL Lymphocytes # 0.2 L (1.0-4.8) k/uL Sodium 132 L (137-145) mmol/L Chloride 93 L (98-107) mmol/L BUN 92 H (9-20) mg/dL Creatinine 4.63 H (0.66-1.25) mg/dL Glucose 107 H (74-99) mg/dL POC Glucose (mg/dL) 151 H (70-110) mg/dL 06/28/24 Range/Units 06:18 RBC (4.30-5.90) m/uL Hgb (13.0-17.5) gm/dL Hct (39.0-53.0) % MCV (80.0-100.0) fL MCHC (31.0-37.0) g/dL RDW (11.5-15.5) % Plt Count (150-450) k/uL Neutrophils # (1.3-7.7) k/uL Lymphocytes # (1.0-4.8) k/uL Sodium (137-145) mmol/L Chloride (98-107) mmol/L BUN (9-20) mg/dL Creatinine (0.66-1.25) mg/dL Glucose (74-99) mg/dL POC Glucose (mg/dL) 114 H (70-110) mg/dL Assessment and Plan Assessment: # Acute kidney injury secondary to ATN secondary to cardiorenal syndrome. Start hemodialysis 06/10/2024. Has permacath. #Acute on chronic diastolic CHF #Volume overload. #Hypertension with CKD stage IV. Controlled. #Acute hypoxic respiratory failure secondary to CHF. On BiPAP. #CAD s/p stent placement #Metabolic acidosis secondary to CKD, improved with dialysis #Right heel wound s/p debridement #Hyperkalemia secondary to acute kidney injury. Improved. Plan: -Currently seen while undergoing hemodialysis. Challenge ultrafiltration. Continue to assess need for dialysis on daily basis. Add midodrine as needed during dialysis for systolic blood pressure less than 100. Stop hydralazine and Flomax. Maintain torsemide 40 mg daily -Switched supplemental nutrition to Nepro due to slightly decreased potassium content -Initiated on renal diet -Avoid nephrotoxic agents -Wean FiO2 -Hemodialysis set up as outpatient for M/W/F once discharged Repeat viral serologies.
[2024-06-28 10:22] LABS: Glucose,Whole Blood 112 mg/dL (70-110)
[2024-06-28] MEDS: NOREPINEPHRINE 4 MG in SODIUM CHLORIDE 0.9% 250 ML IV SCH (10:38)
[2024-06-28 11:34] LABS: Influenza A Not Detected (Not Detectd); Influenza B Not Detected (Not Detectd); RSV Not Detected (Not Detectd)
[2024-06-28 12:02] LABS: Glucose,Whole Blood 142 mg/dL (70-110)
--- NOTE | 2024-06-28 13:06 | P.PN ---
Subjective Progress Note Date: 06/28/24 Principal diagnosis: Acute on chronic diastolic congestive heart failure and acute hypoxic respiratory failure Patient is a 73-year-old male with past medical history significant for hypertension, hyperlipidemia, coronary artery disease with previous PCI/stenting, heart failure, chronic kidney disease, diabetes mellitus, chronic right heel wound, ulcerative colitis with previous colectomy and ileostomy. Of note, patient had a recent hospitalization late May and was just discharged 05/31/2024 for CHF exacerbation. Echocardiogram done during this hospitalization estimating a preserved left ventricular ejection fraction of 55 to 60%. Limited study, but no acute valvular abnormalities reported. Presented the emergency department on 06/04/2024 with a chief complaint of shortness of breath, mostly on exertion. Chest x-ray showing cardiomegaly, mild pulmonary vascular congestion, and a small pleural effusion on the left. NT proBNP elevated 2550. Currently receiving Lasix 80 mg twice daily. CBC: WBC count 10.2, hemoglobin 10.4, hematocrit 32.5, platelets 374. CMP: Sodium 135, potassium 4.6, chloride 101, serum bicarb 18, BUN 66, creatinine 2.71, glucose 139. Troponin is less than 0.012. Patient currently being evaluated on the general medical floor. Appears weak and deconditioned. He is resting in bed on 1 L/min nasal cannula. No respiratory distress noted. Complaining of a generalized headache, which he states is chronic. States that he has been short of breath on exertion for several months to almost 1 year. Particularly on exertion such as climbing stairs or walking to the bathroom. Denies history of COPD or asthma. Never tobacco smoker. Worked in an [employer] shop before he retired. Denies cough. Denies infectious-like symptoms. Current vital signs: Temperature 98 F, heart rate 78 bpm, blood pressure 145/54 mmHg, nontachypneic, SpO2 recorded at 91% on 1 L/min nasal cannula. On 06/21/2024, the patient is being seen for a follow-up. Remains on 15 L of oxygen by nasal cannula. Underwent hemodialysis yesterday and there is no considerable improvement in the patient's oxygenation. At the same time, the follow-up chest x-ray that was done today showed airspace opacities and bilateral pleural effusions. Although CHF and volume overload is highly suspected. Nevertheless, the response to d dialysis has been suboptimal for now. The patient is comfortable. He is feeling a bit weak. He has a right IJ permacath in place. He remains on a combination of Zosyn and daptomycin for a wound infection and ID is on the case. Urine output is minimal at this point in time. Remains on bronchodilators. Rest of the medications remain unchanged. The white cell count of 20 with a hemoglobin of 11.6 and a platelet count of 150 . BUN is 45 with a creatinine of 3.3 and a sodium levels at 134 and potassium level is at 5.3. No other significant events overnight. Discussed the case with the medical team. On 06/22/2024, the patient remains on 15 l of oxygen by nasal cannula. A CAT scan of the chest was done yesterday and the CAT scan showed diffuse bilateral groundglass and airspace opacities throughout the lungs bilaterally consistent with pulmonary edema although atypical infections/acute lung injury cannot be completely ruled out. He has mild to moderate cardiomegaly and cholelithiasis. I suspect those findings are related to interstitial edema and the patient with further respond to dialysis and ultrafiltration. The plan for now is to undergo dialysis with a total of 3 L of ultrafiltration. The patient was started back on IV Solu-Medrol. The white cell count is 17.5, hemoglobin 9.9, platelet count is 116. Sodium level is at 129, BUN 67 with a creatinine of 4.8. He is resting comfortably in bed. He does have some mild shortness of breath even at rest. On 06/23/2024, the patient is being seen for a follow-up. The patient remains on 15 L of oxygen by nasal cannula. I was considering the possibility of interstitial edema/fluid overload contributing to the patient's shortness of breath and hypoxemia. However, despite undergoing a 3 L ultrafiltration yesterday, the patient remains hypoxic. Reviewed the CAT scan of the chest again. This may be a component of acute lung injury, and based on that, the patient was started on steroids. He remains on broad-spectrum antibiotics in addition. Oxygenation remains impaired. Nephrology on the case. Last hemodialysis was yesterday. No new labs are available from today. Resting comfortably in bed on 15 L of oxygen by nasal cannula. Remains on Zosyn and daptomycin. Patient was seen today on 06/24/2024, patient remains on 15 L high flow nasal cannula, surprisingly the patient tells me that he is feeling better, patient was started 2 days ago on dialysis/ultrafiltration, seems to be helping the patient significantly. His urine output is very marginal today. Patient remains on broad-spectrum antibiotics, he is being followed by many consultants including nephrology, patient remains on Zosyn and daptomycin. WBC count 17.7 hemoglobin 9.8 electrolytes showed low sodium of 130 potassium 6 BUN is 43 creatinine 2.97. To the right heel area for months now, and has been treated on outpatient setting for culture positive MRSA and positive for Proteus. Patient clearly has diabetic foot infection, and diabetic right foot ulcer. As well as stage III pressure ulcer of the right heel. Patient was seen today on 06/25/2024, patient is about the same, remains on hemodialysis, he is on 12 L high flow nasal cannula down from 15 yesterday. In spite of this the patient does not seem to be in any distress. Remains on broad-spectrum antibiotics, including Zosyn and daptomycin, patient was dialyzed yesterday, I am not certain if he is scheduled to have dialysis today. Continues to have leukocytosis with WBC of 23 hemoglobin 11.2 electrolytes are normal BUN is down to [address] of the chest from last week showed diffuse bilateral groundglass and airspace opacities throughout both lungs. And mild to moderate cardiomegaly. The findings are findings of either pulmonary edema or atypical pneumonia. Patient was seen today on 06/26/2024, patient is receiving hemodialysis today, his FiO2 requirement has gone up, today he is on Airvo at 80%. Patient is feeling better than expected considering his FiO2 requirement, chest x-ray continues show bilateral interstitial infiltrates/edema. WBC count is 11.8 hemoglobin is 10.1 potassium earlier today was 6.6 BUN 72 creatinine 4.3 and that being addressed by nephrology. Blood sugar was as high as 360 now it is 200. Patient was seen today on 06/27/2024, basically he is about the same, intermittently on Airvo and sometimes on BiPAP, still running low O2 saturation, chest x-ray discharge showing worsening interstitial edema, he felt better yesterday after his hemodialysis, today obviously he needs to go back on BiPAP. He was earlier on Airvo with FiO2 of 65% and 40 L flow, patient seemed to do much better when on BiPAP. Chest x-ray again is showing worsening vascular congestion andPulmonary edema, basic metabolic profile is normal bicarb is normal BUN is 59 creatinine 3.30. Patient was seen today on 06/28/2024, considering his overall condition, patient was transferred from the medical floor to the ICU mostly because of his complicated issues and could not be handled by nursing staff on the floor. Apparently the patient was having intermittent episodes of desaturations, requiring adjustment in his BiPAP and his Airvo. Finally patient was transfer red to ICU, and basically we are maintaining the same treatment plan, hardly any change except while having dialysis today the patient was noted to have soft blood pressure, and I recommended the use of norepinephrine if needed. Otherwise patient is on BiPAP, 14//60%. The plan is to remove 3 L with hemodialysis today. Antibiotics ring remains on daptomycin and Zosyn patient remains marginal at best. Patient looks pale however his hemoglobin today is 9.6. The rest of the labs are unremarkable, his bicarb is 24 BUN is 92 creatinine 4.63. Objective - Vital Signs Vital signs: Vital Signs Temp 36.7 F L 06/28/24 12:20 Pulse 76 06/28/24 12:20 Resp 18 06/28/24 12:20 BP 115/56 06/28/24 12:20 Pulse Ox 94 L 06/28/24 11:00 FiO2 65 06/28/24 11:27 Intake & Output 06/27/24 06/28/24 06/28/24 18:59 06:59 18:59 Intake Total 729 028 0187.465 Output Total 300 0 2400 Balance -182 100 96.465 Weight 94.5 kg 99.2 kg 99.2 kg Intake: IV 100 85 .9NS 60 Piperacillin-Tazobactam 3 100 25 .375 gm In Sodium Chloride 0.9% 100 ml @ 25 mls/hr IVPB Q12HR [facility] Rx #:[id number] Intake, IV Titration 11.465 Amount Norepinephrine 4 mg In 11.465 Sodium Chloride 0.9% 250 ml @ 0.03 MCG/KG/MIN 11. 339 mls/hr IV .[id number] [facility] Rx#:[id number] Oral 118 Hemodialysis 2400 Output: Urine 0 0 Stool 300 Hemodialysis 400 Hemodialysis Net Amount 1999 - Exam GENERAL: The patient is alert and oriented x3, not in any acute distress. Well developed, well nourished., On BiPAP, 14/7/60% HEENT: Pupils are round and equally reacting to light. EOMI. pale conjunctivae CARDIOVASCULAR: S1 and S2 present. No murmurs, rubs, or gallops. PULMONARY: Bilateral crackles persists and rhonchi bilaterally. ABDOMEN: Soft, nontender, nondistended, normoactive bowel sounds. No palpable organomegaly. MUSCULOSKELETAL: No joint swelling or deformity. -EXTREMITIES: No cyanosis, clubbing, or pedal edema. Right foot ulcer with dressing in place NEUROLOGICAL: Gross neurological examination did not reveal any focal deficits. SKIN: Bipedal edema noted. - Labs CBC & Chem 7: 06/28/24 05:47 06/28/24 05:47 Labs: Abnormal Lab Results - Last 24 Hours (Table) 06/27/24 06/27/24 06/28/24 Range/Units 16:50 18:41 00:15 RBC (4.30-5.90) m/uL Hgb (13.0-17.5) gm/dL Hct (39.0-53.0) % MCV (80.0-100.0) fL MCHC (31.0-37.0) g/dL RDW (11.5-15.5) % Plt Count (150-450) k/uL Neutrophils # (1.3-7.7) k/uL Lymphocytes # (1.0-4.8) k/uL Sodium (137-145) mmol/L Chloride (98-107) mmol/L BUN (9-20) mg/dL Creatinine (0.66-1.25) mg/dL Glucose (74-99) mg/dL POC Glucose (mg/dL) 184 H 199 H 151 H (70-110) mg/dL 06/28/24 06/28/24 06/28/24 Range/Units 05:47 05:47 06:18 RBC 3.13 L (4.30-5.90) m/uL Hgb 9.6 L (13.0-17.5) gm/dL Hct 32.0 L (39.0-53.0) % MCV 101.9 H (80.0-100.0) fL MCHC 30.1 L (31.0-37.0) g/dL RDW 17.2 H (11.5-15.5) % Plt Count 112 L (150-450) k/uL Neutrophils # 9.0 H (1.3-7.7) k/uL Lymphocytes # 0.2 L (1.0-4.8) k/uL Sodium 132 L (137-145) mmol/L Chloride 93 L (98-107) mmol/L BUN 92 H (9-20) mg/dL Creatinine 4.63 H (0.66-1.25) mg/dL Glucose 107 H (74-99) mg/dL POC Glucose (mg/dL) 114 H (70-110) mg/dL 06/28/24 06/28/24 Range/Units 10:21 12:00 RBC (4.30-5.90) m/uL Hgb (13.0-17.5) gm/dL Hct (39.0-53.0) % MCV (80.0-100.0) fL MCHC (31.0-37.0) g/dL RDW (11.5-15.5) % Plt Count (150-450) k/uL Neutrophils # (1.3-7.7) k/uL Lymphocytes # (1.0-4.8) k/uL Sodium (137-145) mmol/L Chloride (98-107) mmol/L BUN (9-20) mg/dL Creatinine (0.66-1.25) mg/dL Glucose (74-99) mg/dL POC Glucose (mg/dL) 112 H 142 H (70-110) mg/dL Assessment and Plan Assessment: Impression: Acute exacerbation of diastolic congestive heart failure versus interstitial edema secondary to chronic kidney disease and renal failure. Bilateral pneumonia cannot be completely excluded. Considering the patient is improving with hemodialysis that speaks in favor of pulmonary edema/fluid overload. On hemodialysis. Acute hypoxic respiratory failure, today patient is requiring BiPAP and hemodialysis Acute on chronic kidney disease now requiring renal replacement therapy that started June 10, 2024, underwent dialysis via permacath in the right IJ Hyperkalemia, resolved Acute on chronic anemia secondary to above History of CAD with previous PCIDiabetes mellitus type II Hypertension Hyperlipidemia Chronic cephalgia History of UC with previous colectomy and ileostomy History of prostate cancer status post chemoradiation Chronic right heel wound, status post debridement Obesity, with a BMI of 38.8 kg/m Recommendation: Continue present supportive care measures Continue BiPAP Continue hemodialysis Continue bronchodilators Continue antibiotics as per ID, patient is now on Zosyn and daptomycin Continue IV Solu-Medrol 40 mg IV push every 12 hours Continue GI and DVT prophylaxis Continues to have multiple complex issues and remains relatively quite ill not ready for any discharge planning anytime soon Overall prognosis, extremely poor Will continue to follow Time with Patient: Less than 30
[2024-06-28 15:22] LABS: Glucose,Whole Blood 177 mg/dL (70-110)
[2024-06-28 17:26] LABS: Glucose,Whole Blood 257 mg/dL (70-110)
[2024-06-28 19:58] LABS: Glucose,Whole Blood 252 mg/dL (70-110)
[2024-06-28 23:34] LABS: Glucose,Whole Blood 284 mg/dL (70-110)
[2024-06-29 05:40] LABS: Glucose,Whole Blood 175 mg/dL (70-110)
[2024-06-29 05:42] LABS: Anisocytosis Slight; Basophils % (A) 0 %; Eosinophils % (A) 0 %; HCT 31.1 % (39.0-53.0); HGB 9.2 gm/dL (13.0-17.5); Hypochromasia Slight; Lymphocytes # (A) 0.1 k/uL (1.0-4.8); Lymphocytes % (A) 1 %; MCH 29.7 pg (25.0-35.0); MCHC 29.7 g/dL (31.0-37.0); MCV 99.9 fL (80.0-100.0); Macrocytosis Slight; Mean Platelet Volume 10.7; Monocytes # (A) 0.3 k/uL (0-1.0); Monocytes % (A) 3 %; Neutrophils # (A) 10.6 k/uL (1.3-7.7); Neutrophils % (A) 96 %; RBC 3.12 m/uL (4.30-5.90); RDW 17.5 % (11.5-15.5); WBC 11.1 k/uL (3.8-10.6)
[2024-06-29 06:12] LABS: African American GFR (CKD) 18 (>60 ml/min/1.73 sqM); Anion Gap 8 mmol/L; Blood Urea Nitrogen 61 mg/dL (9-20); Carbon Dioxide 31 mmol/L (22-30); Chloride 90 mmol/L (98-107); Glucose 182 mg/dL (74-99); Non-African American GFR(CKD) 16 (>60 ml/min/1.73 sqM); Sodium 129 mmol/L (137-145)
[2024-06-29 06:22] LABS: Platelet Count 97 k/uL (150-450)
[2024-06-29 06:23] LABS: Anisocytosis (M) Present; Ovalocytes Present; Polychromasia Present; Target Cells Present
--- NOTE | 2024-06-29 07:33 | XR ---
EXAMINATION TYPE: XR chest 1V portable DATE OF EXAM: 06/29/2024 5:27 AM COMPARISON: Multiple radiographs, with the most recent on 06/28/2024, CT chest 06/21/2024. TECHNIQUE: XR chest 1V portable Portable AP radiograph of the chest. CLINICAL INDICATION:Male, 73 years old with history of assess lungs; FINDINGS: Lungs/Pleura: Blunting of both costophrenic angles. Similar diffuse interstitial prominence. No pneum othorax. Heart/mediastinum: Cardiomediastinal silhouette is enlarged and stable. Musculoskeletal: No acute osseous pathology. Other findings: None Lines/Tubes: Right IJ approach dual-lumen hemodialysis catheter with distal tip terminating in the right atrium. IMPRESSION: Cardiomegaly, pulmonary edema and bilateral pleural effusions. Correlate with BNP for congestive hear t failure. Superimposed infectious process is not excluded. [facility], , 06/29/2024 7:31 AM
--- NOTE | 2024-06-29 09:43 | P.PN ---
Subjective Patient seen for follow-up for chronic kidney disease with acute kidney injury. Initiated hemodialysis 06/10/2024. Currently on Airvo. Awake and alert. Vital signs are stable. General: Resting in bed. No acute distress. HEENT: On Airvo. LUNGS: Scattered rhonchi. HEART: Rate and Rhythm are regular. ABDOMEN: Obese, nontender. EXTREMITITES: Trace edema. Objective - Vital Signs Vital signs: Vital Signs Temp 97.7 F 06/29/24 08:00 Pulse 69 06/29/24 09:00 Resp 10 L 06/29/24 09:00 BP 118/47 06/29/24 09:00 Pulse Ox 98 06/29/24 09:00 FiO2 84 06/29/24 09:00 Intake & Output 06/28/24 06/29/24 06/29/24 18:59 06:59 18:59 Intake Total 2761.796 416.190 85 Output Total 2400 170 Balance 361.796 246.190 85 Weight 99.2 kg 99.8 kg Intake: IV 300 400 85 .9NS 150 300 60 DAPTOmycin 350 mg In 50 Sodium Chloride 0.9% 50 ml @ 100 mls/hr IVPB Q48H [facility] Rx#:[id number] Piperacillin-Tazobactam 3 100 100 25 .375 gm In Sodium Chloride 0.9% 100 ml @ 25 mls/hr IVPB Q12HR [facility] Rx #:[id number] Intake, IV Titration 61.796 16.190 Amount Norepinephrine 4 mg In 61.796 16.190 Sodium Chloride 0.9% 250 ml @ 0.03 MCG/KG/MIN 11. 339 mls/hr IV .[id number] [facility] Rx#:[id number] Hemodialysis 2400 Output: Stool 170 Hemodialysis 400 Hemodialysis Net Amount 2000 - Labs CBC & Chem 7: 06/29/24 05:09 06/29/24 05:09 Labs: Abnormal Lab Results - Last 24 Hours (Table) 06/28/24 06/28/24 06/28/24 Range/Units 05:47 10:21 12:00 WBC (3.8-10.6) k/uL RBC 3.13 L (4.30-5.90) m/uL Hgb 9.6 L (13.0-17.5) gm/dL Hct 32.0 L (39.0-53.0) % MCV 101.9 H (80.0-100.0) fL MCHC 30.1 L (31.0-37.0) g/dL RDW 17.2 H (11.5-15.5) % Plt Count 112 L (150-450) k/uL Neutrophils # 9.0 H (1.3-7.7) k/uL Lymphocytes # 0.2 L (1.0-4.8) k/uL Sodium (137-145) mmol/L Chloride (98-107) mmol/L Carbon Dioxide (22-30) mmol/L BUN (9-20) mg/dL Creatinine (0.66-1.25) mg/dL Glucose (74-99) mg/dL POC Glucose (mg/dL) 112 H 142 H (70-110) mg/dL Calcium (8.4-10.2) mg/dL 06/28/24 06/28/24 06/28/24 Range/Units 15:20 17:24 19:56 WBC (3.8-10.6) k/uL RBC (4.30-5.90) m/uL Hgb (13.0-17.5) gm/dL Hct (39.0-53.0) % MCV (80.0-100.0) fL MCHC (31.0-37.0) g/dL RDW (11.5-15.5) % Plt Count (150-450) k/uL Neutrophils # (1.3-7.7) k/uL Lymphocytes # (1.0-4.8) k/uL Sodium (137-145) mmol/L Chloride (98-107) mmol/L Carbon Dioxide (22-30) mmol/L BUN (9-20) mg/dL Creatinine (0.66-1.25) mg/dL Glucose (74-99) mg/dL POC Glucose (mg/dL) 177 H 257 H 252 H (70-110) mg/dL Calcium (8.4-10.2) mg/dL 06/28/24 06/29/24 06/29/24 Range/Units 23:32 05:09 05:09 WBC 11.1 H (3.8-10.6) k/uL RBC 3.12 L (4.30-5.90) m/uL Hgb 9.2 L (13.0-17.5) gm/dL Hct 31.1 L (39.0-53.0) % MCV (80.0-100.0) fL MCHC 29.7 L (31.0-37.0) g/dL RDW 17.5 H (11.5-15.5) % Plt Count 97 L (150-450) k/uL Neutrophils # 10.6 H (1.3-7.7) k/uL Lymphocytes # 0.1 L (1.0-4.8) k/uL Sodium 129 L (137-145) mmol/L Chloride 90 L (98-107) mmol/L Carbon Dioxide 31 H (22-30) mmol/L BUN 61 H (9-20) mg/dL Creatinine 3.57 H (0.66-1.25) mg/dL Glucose 182 H (74-99) mg/dL POC Glucose (mg/dL) 284 H (70-110) mg/dL Calcium 8.0 L (8.4-10.2) mg/dL 06/29/24 Range/Units 05:38 WBC (3.8-10.6) k/uL RBC (4.30-5.90) m/uL Hgb (13.0-17.5) gm/dL Hct (39.0-53.0) % MCV (80.0-100.0) fL MCHC (31.0-37.0) g/dL RDW (11.5-15.5) % Plt Count (150-450) k/uL Neutrophils # (1.3-7.7) k/uL Lymphocytes # (1.0-4.8) k/uL Sodium (137-145) mmol/L Chloride (98-107) mmol/L Carbon Dioxide (22-30) mmol/L BUN (9-20) mg/dL Creatinine (0.66-1.25) mg/dL Glucose (74-99) mg/dL POC Glucose (mg/dL) 175 H (70-110) mg/dL Calcium (8.4-10.2) mg/dL Assessment and Plan Assessment: # Acute kidney injury secondary to ATN secondary to cardiorenal syndrome. Start hemodialysis 06/10/2024. Has permacath. #Acute on chronic diastolic CHF #Volume overload. #Hypertension with CKD stage IV. Controlled. #Acute hypoxic respiratory failure secondary to CHF. On Airvo. #CAD s/p stent placement #Metabolic acidosis secondary to CKD, improved with dialysis #Right heel wound s/p debridement #Hyperkalemia secondary to acute kidney injury. Improved. # Hypervolemic hyponatremia. Plan: -Hemodialysis today. Challenge ultrafiltration. -Maintain midodrine as needed during dialysis for systolic blood pressure less than 100. -Hold amlodipine for systolic blood pressure less than 120. -Maintain torsemide 40 mg daily -Switched supplemental nutrition to Nepro due to slightly decreased potassium content -Initiated on renal diet -Avoid nephrotoxic agents -Wean FiO2 -Check iron studies. -Hemodialysis set up as outpatient for M/W/F once discharged
[2024-06-29 11:24] LABS: Glucose,Whole Blood 205 mg/dL (70-110)
--- NOTE | 2024-06-29 13:03 | P.PN ---
Subjective Progress Note Date: 06/29/24 Principal diagnosis: Acute on chronic diastolic congestive heart failure and acute hypoxic respiratory failure Patient is a 73-year-old male with past medical history significant for hypertension, hyperlipidemia, coronary artery disease with previous PCI/stenting, heart failure, chronic kidney disease, diabetes mellitus, chronic right heel wound, ulcerative colitis with previous colectomy and ileostomy. Of note, patient had a recent hospitalization late May and was just discharged 05/31/2024 for CHF exacerbation. Echocardiogram done during this hospitalization estimating a preserved left ventricular ejection fraction of 55 to 60%. Limited study, but no acute valvular abnormalities reported. Presented the emergency department on 06/04/2024 with a chief complaint of shortness of breath, mostly on exertion. Chest x-ray showing cardiomegaly, mild pulmonary vascular congestion, and a small pleural effusion on the left. NT proBNP elevated 2550. Currently receiving Lasix 80 mg twice daily. CBC: WBC count 10.2, hemoglobin 10.4, hematocrit 32.5, platelets 374. CMP: Sodium 135, potassium 4.6, chloride 101, serum bicarb 18, BUN 66, creatinine 2.71, glucose 139. Troponin is less than 0.012. Patient currently being evaluated on the general medical floor. Appears weak and deconditioned. He is resting in bed on 1 L/min nasal cannula. No respiratory distress noted. Complaining of a generalized headache, which he states is chronic. States that he has been short of breath on exertion for several months to almost 1 year. Particularly on exertion such as climbing stairs or walking to the bathroom. Denies history of COPD or asthma. Never tobacco smoker. Worked in an [employer] shop before he retired. Denies cough. Denies infectious-like symptoms. Current vital signs: Temperature 98 F, heart rate 78 bpm, blood pressure 145/54 mmHg, nontachypneic, SpO2 recorded at 91% on 1 L/min nasal cannula. On 06/21/2024, the patient is being seen for a follow-up. Remains on 15 L of oxygen by nasal cannula. Underwent hemodialysis yesterday and there is no considerable improvement in the patient's oxygenation. At the same time, the follow-up chest x-ray that was done today showed airspace opacities and bilateral pleural effusions. Although CHF and volume overload is highly suspected. Nevertheless, the response to d dialysis has been suboptimal for now. The patient is comfortable. He is feeling a bit weak. He has a right IJ permacath in place. He remains on a combination of Zosyn and daptomycin for a wound infection and ID is on the case. Urine output is minimal at this point in time. Remains on bronchodilators. Rest of the medications remain unchanged. The white cell count of 20 with a hemoglobin of 11.6 and a platelet count of 150 . BUN is 45 with a creatinine of 3.3 and a sodium levels at 134 and potassium level is at 5.3. No other significant events overnight. Discussed the case with the medical team. On 06/22/2024, the patient remains on 15 l of oxygen by nasal cannula. A CAT scan of the chest was done yesterday and the CAT scan showed diffuse bilateral groundglass and airspace opacities throughout the lungs bilaterally consistent with pulmonary edema although atypical infections/acute lung injury cannot be completely ruled out. He has mild to moderate cardiomegaly and cholelithiasis. I suspect those findings are related to interstitial edema and the patient with further respond to dialysis and ultrafiltration. The plan for now is to undergo dialysis with a total of 3 L of ultrafiltration. The patient was started back on IV Solu-Medrol. The white cell count is 17.5, hemoglobin 9.9, platelet count is 116. Sodium level is at 129, BUN 67 with a creatinine of 4.8. He is resting comfortably in bed. He does have some mild shortness of breath even at rest. On 06/23/2024, the patient is being seen for a follow-up. The patient remains on 15 L of oxygen by nasal cannula. I was considering the possibility of interstitial edema/fluid overload contributing to the patient's shortness of breath and hypoxemia. However, despite undergoing a 3 L ultrafiltration yesterday, the patient remains hypoxic. Reviewed the CAT scan of the chest again. This may be a component of acute lung injury, and based on that, the patient was started on steroids. He remains on broad-spectrum antibiotics in addition. Oxygenation remains impaired. Nephrology on the case. Last hemodialysis was yesterday. No new labs are available from today. Resting comfortably in bed on 15 L of oxygen by nasal cannula. Remains on Zosyn and daptomycin. Patient was seen today on 06/24/2024, patient remains on 15 L high flow nasal cannula, surprisingly the patient tells me that he is feeling better, patient was started 2 days ago on dialysis/ultrafiltration, seems to be helping the patient significantly. His urine output is very marginal today. Patient remains on broad-spectrum antibiotics, he is being followed by many consultants including nephrology, patient remains on Zosyn and daptomycin. WBC count 17.7 hemoglobin 9.8 electrolytes showed low sodium of 130 potassium 6 BUN is 43 creatinine 2.97. To the right heel area for months now, and has been treated on outpatient setting for culture positive MRSA and positive for Proteus. Patient clearly has diabetic foot infection, and diabetic right foot ulcer. As well as stage III pressure ulcer of the right heel. Patient was seen today on 06/25/2024, patient is about the same, remains on hemodialysis, he is on 12 L high flow nasal cannula down from 15 yesterday. In spite of this the patient does not seem to be in any distress. Remains on broad-spectrum antibiotics, including Zosyn and daptomycin, patient was dialyzed yesterday, I am not certain if he is scheduled to have dialysis today. Continues to have leukocytosis with WBC of 23 hemoglobin 11.2 electrolytes are normal BUN is down to [address] of the chest from last week showed diffuse bilateral groundglass and airspace opacities throughout both lungs. And mild to moderate cardiomegaly. The findings are findings of either pulmonary edema or atypical pneumonia. Patient was seen today on 06/26/2024, patient is receiving hemodialysis today, his FiO2 requirement has gone up, today he is on Airvo at 80%. Patient is feeling better than expected considering his FiO2 requirement, chest x-ray continues show bilateral interstitial infiltrates/edema. WBC count is 11.8 hemoglobin is 10.1 potassium earlier today was 6.6 BUN 72 creatinine 4.3 and that being addressed by nephrology. Blood sugar was as high as 360 now it is 200. Patient was seen today on 06/27/2024, basically he is about the same, intermittently on Airvo and sometimes on BiPAP, still running low O2 saturation, chest x-ray discharge showing worsening interstitial edema, he felt better yesterday after his hemodialysis, today obviously he needs to go back on BiPAP. He was earlier on Airvo with FiO2 of 65% and 40 L flow, patient seemed to do much better when on BiPAP. Chest x-ray again is showing worsening vascular congestion andPulmonary edema, basic metabolic profile is normal bicarb is normal BUN is 59 creatinine 3.30. Patient was seen today on 06/28/2024, considering his overall condition, patient was transferred from the medical floor to the ICU mostly because of his complicated issues and could not be handled by nursing staff on the floor. Apparently the patient was having intermittent episodes of desaturations, requiring adjustment in his BiPAP and his Airvo. Finally patient was transfer red to ICU, and basically we are maintaining the same treatment plan, hardly any change except while having dialysis today the patient was noted to have soft blood pressure, and I recommended the use of norepinephrine if needed. Otherwise patient is on BiPAP, 14/7/60%. The plan is to remove 3 L with hemodialysis today. Antibiotics ring remains on daptomycin and Zosyn patient remains marginal at best. Patient looks pale however his hemoglobin today is 9.6. The rest of the labs are unremarkable, his bicarb is 24 BUN is 92 creatinine 4.63. Seen today on 06/29/2024, remains in the ICU on BiPAP 14/7/60% he was earlier today on Airvo at 50 L and 70% FiO2. Patient is doing well, he normally does quite well after hemodialysis, he scheduled to have hemodialysis today. Platelets are coming down hence I recommended stopping subcu heparin for now. Patient remains on Zosyn empirically. No major changes noted in the last 24 hours, he is off norepinephrine not requiring any hemodynamic support. WBC count is 11.1 hemoglobin 9.2 electrolytes are normal except for sodium of 129 BUN is 61, creatinine 3.57 chest x-ray continues to show cardiomegaly and pulmonary edema with bilateral pleural effusions Objective - Vital Signs Vital signs: Vital Signs Temp 97.7 F 06/29/24 08:00 Pulse 75 06/29/24 11:44 Resp 11 L 06/29/24 11:00 BP 124/62 06/29/24 11:00 Pulse Ox 96 06/29/24 11:00 FiO2 96 06/29/24 11:53 Intake & Output 06/28/24 06/29/24 06/29/24 18:59 06:59 18:59 Intake Total 2761.796 416.190 135 Output Total 2400 170 Balance 361.796 246.190 135 Weight 99.2 kg 99.8 kg Intake: IV 300 400 135 .9NS 150 300 60 DAPTOmycin 350 mg In 50 Sodium Chloride 0.9% 50 ml @ 100 mls/hr IVPB Q48H JOS[facility] Rx#:[id number] Piperacillin-Tazobactam 3 100 100 75 .375 gm In Sodium Chloride 0.9% 100 ml @ 25 mls/hr IVPB Q12HR JOS[facility] Rx #:[id number] Intake, IV Titration 61.796 16.190 Amount Norepinephrine 4 mg In 61.796 16.190 Sodium Chloride 0.9% 250 ml @ 0.03 MCG/KG/MIN 11. 339 mls/hr IV .[id number] JOS[facility] Rx#:[id number] Hemodialysis 2400 Output: Stool 170 Hemodialysis 400 Hemodialysis Net Amount 1999 - Exam GENERAL: The patient is alert and oriented x3, not in any acute distress. Well developed, well nourished., On Airvo which was later changed to BiPAP. HEENT: Pupils are round and equally reacting to light. EOMI. pale conjunctivae CARDIOVASCULAR: S1 and S2 present. No murmurs, rubs, or gallops. PULMONARY: Bilateral crackles persists and rhonchi bilaterally. ABDOMEN: Soft, nontender, nondistended, normoactive bowel sounds. No palpable organomegaly. MUSCULOSKELETAL: No joint swelling or deformity. -EXTREMITIES: No cyanosis, clubbing, or pedal edema. Right foot ulcer with dressing in place NEUROLOGICAL: Gross neurological examination did not reveal any focal deficits. SKIN: Bipedal edema noted. - Labs CBC & Chem 7: 06/29/24 05:09 06/29/24 05:09 Labs: Abnormal Lab Results - Last 24 Hours (Table) 06/28/24 06/28/24 06/28/24 Range/Units 15:20 17:24 19:56 WBC (3.8-10.6) k/uL RBC (4.30-5.90) m/uL Hgb (13.0-17.5) gm/dL Hct (39.0-53.0) % MCHC (31.0-37.0) g/dL RDW (11.5-15.5) % Plt Count (150-450) k/uL Neutrophils # (1.3-7.7) k/uL Lymphocytes # (1.0-4.8) k/uL Sodium (137-145) mmol/L Chloride (98-107) mmol/L Carbon Dioxide (22-30) mmol/L BUN (9-20) mg/dL Creatinine (0.66-1.25) mg/dL Glucose (74-99) mg/dL POC Glucose (mg/dL) 177 H 257 H 252 H (70-110) mg/dL Calcium (8.4-10.2) mg/dL 06/28/24 06/29/24 06/29/24 Range/Units 23:32 05:09 05:09 WBC 11.1 H (3.8-10.6) k/uL RBC 3.12 L (4.30-5.90) m/uL Hgb 9.2 L (13.0-17.5) gm/dL Hct 31.1 L (39.0-53.0) % MCHC 29.7 L (31.0-37.0) g/dL RDW 17.5 H (11.5-15.5) % Plt Count 97 L (150-450) k/uL Neutrophils # 10.6 H (1.3-7.7) k/uL Lymphocytes # 0.1 L (1.0-4.8) k/uL Sodium 129 L (137-145) mmol/L Chloride 90 L (98-107) mmol/L Carbon Dioxide 31 H (22-30) mmol/L BUN 61 H (9-20) mg/dL Creatinine 3.57 H (0.66-1.25) mg/dL Glucose 182 H (74-99) mg/dL POC Glucose (mg/dL) 284 H (70-110) mg/dL Calcium 8.0 L (8.4-10.2) mg/dL 06/29/24 06/29/24 Range/Units 05:38 11:22 WBC (3.8-10.6) k/uL RBC (4.30-5.90) m/uL Hgb (13.0-17.5) gm/dL Hct (39.0-53.0) % MCHC (31.0-37.0) g/dL RDW (11.5-15.5) % Plt Count (150-450) k/uL Neutrophils # (1.3-7.7) k/uL Lymphocytes # (1.0-4.8) k/uL Sodium (137-145) mmol/L Chloride (98-107) mmol/L Carbon Dioxide (22-30) mmol/L BUN (9-20) mg/dL Creatinine (0.66-1.25) mg/dL Glucose (74-99) mg/dL POC Glucose (mg/dL) 175 H 205 H (70-110) mg/dL Calcium (8.4-10.2) mg/dL Assessment and Plan Assessment: Impression: Acute exacerbation of diastolic congestive heart failure versus interstitial edema secondary to chronic kidney disease and renal failure. Bilateral pneumonia cannot be completely excluded. Considering the patient is improving with hemodialysis that speaks in favor of pulmonary edema/fluid overload. On hemodialysis. Acute hypoxic respiratory failure, today patient is requiring BiPAP and hemodialysis Acute on chronic kidney disease now requiring renal replacement therapy that started June 10, 2024, underwent dialysis via permacath in the right IJ Hyperkalemia, resolved Acute on chronic anemia secondary to above History of CAD with previous PCIDiabetes mellitus type II Hypertension Hyperlipidemia Chronic cephalgia History of UC with previous colectomy and ileostomy History of prostate cancer status post chemoradiation Chronic right heel wound, status post debridement Obesity Recommendation: Continue present supportive care measures Continue BiPAP, alternate with Airvo Continue hemodialysis Continue bronchodilators Continue antibiotics daptomycin and Zosyn Continue IV Solu-Medrol 40 mg IV push every 12 hours Continue GI and DVT prophylaxis Continues to have multiple complex issues Overall prognosis, extremely poor Will continue to follow Time with Patient: Less than 30
[2024-06-29] MEDS: MIDODRINE 5 MG TAB PO PRN (14:07)
--- NOTE | 2024-06-29 14:22 | P.PN ---
Subjective Progress Note Date: 06/27/24 Principal diagnosis: Reason for follow-up is right heel diabetic foot ulcer with MRSA infection Patient is a 73-year-old male with a past medical history significant for diabetes mellitus hypertension hyperlipidemia osteomyelitis patient has been dealing with a chronic nonhealing wound to the right heel area for months now and is being treated in outpatient setting by Dr. Jernigan his black puller with recent outpatient culture positive for MRSA and is Proteus. On today's evaluation that is 06/27/2024,the patient remains to be afebrile, patient is on BiPAP with 60% supplemental oxygen however denies any shortness of breath no chest pain or cough.Patient denies having any nausea or vomiting, no abdominal pain and no diarrhea has been reported. Patient white count is down to 11.8 as of yesterday no CBC was done today creatinine 3.30 Objective - Vital Signs Vital signs: Vital Signs Temp 98.2 F 06/27/24 08:45 Pulse 81 06/27/24 12:58 Resp 14 06/27/24 12:58 BP 133/58 06/27/24 12:58 Pulse Ox 98 06/27/24 12:58 FiO2 70 06/27/24 12:58 Intake & Output 06/26/24 06/27/24 06/27/24 18:59 06:59 18:59 Intake Total 1227 20 118 Output Total 1900 150 Balance -673 -130 118 Weight 94.5 kg Intake: IV 20 Invasive Line 8 10 Invasive Line 9 10 Oral 477 118 Hemodialysis 750 Output: Stool 450 150 Hemodialysis 1100 Hemodialysis Net Amount 350 Other: Voiding Method Urinal Urinal # Bowel Movements 0 - Exam GENERAL DESCRIPTION: An elderly male lying in bed in no distress RESPIRATORY SYSTEM: Unlabored breathing , decreased breath sounds at bases HEART: S1 S2 regular rate and rhythm , ABDOMEN: Soft , no tenderness EXTREMITIES: Right hand wound is currently dressed - Labs CBC & Chem 7: 06/29/24 05:09 06/29/24 05:09 Labs: Abnormal Lab Results - Last 24 Hours (Table) 06/26/24 06/26/24 06/26/24 Range/Units 16:25 17:56 20:28 Sodium (137-145) mmol/L Chloride (98-107) mmol/L BUN (9-20) mg/dL Creatinine (0.66-1.25) mg/dL Glucose (74-99) mg/dL POC Glucose (mg/dL) 333 H 314 H (70-110) mg/dL Creatine Kinase <20 L (55-170) U/L 06/27/24 06/27/24 06/27/24 Range/Units 00:07 06:24 09:01 Sodium 132 L (137-145) mmol/L Chloride 93 L (98-107) mmol/L BUN 59 H (9-20) mg/dL Creatinine 3.30 H (0.66-1.25) mg/dL Glucose 121 H (74-99) mg/dL POC Glucose (mg/dL) 285 H 166 H (70-110) mg/dL Creatine Kinase (55-170) U/L 06/27/24 Range/Units 11:21 Sodium (137-145) mmol/L Chloride (98-107) mmol/L BUN (9-20) mg/dL Creatinine (0.66-1.25) mg/dL Glucose (74-99) mg/dL POC Glucose (mg/dL) 153 H (70-110) mg/dL Creatine Kinase (55-170) U/L Assessment and Plan (1) Diabetic infection of right foot Current Visit: Yes Status: Acute Code(s): E11.628 - TYPE 2 DIABETES MELLITUS WITH OTHER SKIN COMPLICATIONS; L08.9 - LOCAL INFECTION OF THE SKIN AND SUBCUTANEOUS TISSUE, UNSP SNOMED Code(s): 939275346 (2) MRSA (methicillin resistant staph aureus) culture positive Current Visit: Yes Status: Acute Code(s): Z22.322 - CARRIER OR SUSPECTED CARRIER OF METHICILLIN RESIS STAPH SNOMED Code(s): 587572711 (3) Diabetic ulcer of right foot Current Visit: No Status: Acute Code(s): E11.621 - TYPE 2 DIABETES MELLITUS WITH FOOT ULCER; L97.519 - NON-PRS CHRONIC ULCER OTH PRT RIGHT FOOT W UNSP SEVER ITY SNOMED Code(s): 997406557 (4) Stage III pressure ulcer of right heel Current Visit: No Status: Acute Code(s): L89.613 - PRESSURE ULCER OF RIGHT HEEL, STAGE 3 SNOMED Code(s): 62641226569281 Plan: 1patient with a chronic nonhealing wound to the right heel which he has for couple of months the wound looks deep with a recent culture positive for Proteus and MRSA concerning for wound infection and question for possible deeper infection such as osteomyelitis as wound has been there for couple of months now 2- x-rays of the right heel with no evidence of any bony changes 3-patient has been evaluated by Dr. Carpenter and did have surgical debridement completed on 06/07/2024 and did have a further debridement at the bedside by his black puller on 06/14/2024 4-patient leukocytosis more likely steroid related as no evidence of any worsening infection and the patient white count is down to 11,000 yesterday 5patient currently being treated with Zosyn and daptomycin while inpatient and monitor clinical course closely Dictation was produced using [employer] dictation software. please excuse any grammatical, word or spelling errors. Time with Patient: Less than 30
--- NOTE | 2024-06-29 14:25 | P.PN ---
Subjective Progress Note Date: 06/29/24 Principal diagnosis: Reason for follow-up is right heel diabetic foot ulcer with MRSA infection Patient is a 73-year-old male with a past medical history significant for diabetes mellitus hypertension hyperlipidemia osteomyelitis patient has been dealing with a chronic nonhealing wound to the right heel area for months now and is being treated in outpatient setting by Dr. Jernigan his health underwriter with recent outpatient culture positive for MRSA and is Proteus. On today's evaluation that is 06/29/2024 patient has been afebrile is currently breathing comfortably on high flow nasal cannula oxygen denies having any chest pain shortness of breath or cough no nausea vomiting abdominal pain and diarrhea. Patient white count is 11.1 creatinine 3.57 Objective - Vital Signs Vital signs: Vital Signs Temp 97.7 F 06/29/24 08:00 Pulse 75 06/29/24 11:44 Resp 11 L 06/29/24 11:00 BP 124/62 06/29/24 11:00 Pulse Ox 96 06/29/24 11:00 FiO2 96 06/29/24 11:53 Intake & Output 06/28/24 06/29/24 06/29/24 18:59 06:59 18:59 Intake Total 2761.796 416.190 135 Output Total 2400 170 Balance 361.796 246.190 135 Weight 99.2 kg 99.8 kg Intake: IV 300 400 135 .9NS 150 300 60 DAPTOmycin 350 mg In 50 Sodium Chloride 0.9% 50 ml @ 100 mls/hr IVPB Q48H [facility] Rx#:[id number] Piperacillin-Tazobactam 3 100 100 75 .375 gm In Sodium Chloride 0.9% 100 ml @ 25 mls/hr IVPB Q12HR [facility] Rx #:[id number] Intake, IV Titration 61.796 16.190 Amount Norepinephrine 4 mg In 61.796 16.190 Sodium Chloride 0.9% 250 ml @ 0.03 MCG/KG/MIN 11. 339 mls/hr IV .[id number] [facility] Rx#:[id number] Hemodialysis 2400 Output: Stool 170 Hemodialysis 400 Hemodialysis Net Amount 2000 - Exam GENERAL DESCRIPTION: An elderly male lying in bed in no distress RESPIRATORY SYSTEM: Unlabored breathing , decreased breath sounds at bases HEART: S1 S2 regular rate and rhythm , ABDOMEN: Soft , no tenderness EXTREMITIES: Right hand wound is currently dressed - Labs CBC & Chem 7: 06/29/24 05:09 06/29/24 05:09 Labs: Abnormal Lab Results - Last 24 Hours (Table) 06/28/24 06/28/24 06/28/24 Range/Units 15:20 17:24 19:56 WBC (3.8-10.6) k/uL RBC (4.30-5.90) m/uL Hgb (13.0-17.5) gm/dL Hct (39.0-53.0) % MCHC (31.0-37.0) g/dL RDW (11.5-15.5) % Plt Count (150-450) k/uL Neutrophils # (1.3-7.7) k/uL Lymphocytes # (1.0-4.8) k/uL Sodium (137-145) mmol/L Chloride (98-107) mmol/L Carbon Dioxide (22-30) mmol/L BUN (9-20) mg/dL Creatinine (0.66-1.25) mg/dL Glucose (74-99) mg/dL POC Glucose (mg/dL) 177 H 257 H 252 H (70-110) mg/dL Calcium (8.4-10.2) mg/dL 06/28/24 06/29/24 06/29/24 Range/Units 23:32 05:09 05:09 WBC 11.1 H (3.8-10.6) k/uL RBC 3.12 L (4.30-5.90) m/uL Hgb 9.2 L (13.0-17.5) gm/dL Hct 31.1 L (39.0-53.0) % MCHC 29.7 L (31.0-37.0) g/dL RDW 17.5 H (11.5-15.5) % Plt Count 97 L (150-450) k/uL Neutrophils # 10.6 H (1.3-7.7) k/uL Lymphocytes # 0.1 L (1.0-4.8) k/uL Sodium 129 L (137-145) mmol/L Chloride 90 L (98-107) mmol/L Carbon Dioxide 31 H (22-30) mmol/L BUN 61 H (9-20) mg/dL Creatinine 3.57 H (0.66-1.25) mg/dL Glucose 182 H (74-99) mg/dL POC Glucose (mg/dL) 284 H (70-110) mg/dL Calcium 8.0 L (8.4-10.2) mg/dL 06/29/24 06/29/24 Range/Units 05:38 11:22 WBC (3.8-10.6) k/uL RBC (4.30-5.90) m/uL Hgb (13.0-17.5) gm/dL Hct (39.0-53.0) % MCHC (31.0-37.0) g/dL RDW (11.5-15.5) % Plt Count (150-450) k/uL Neutrophils # (1.3-7.7) k/uL Lymphocytes # (1.0-4.8) k/uL Sodium (137-145) mmol/L Chloride (98-107) mmol/L Carbon Dioxide (22-30) mmol/L BUN (9-20) mg/dL Creatinine (0.66-1.25) mg/dL Glucose (74-99) mg/dL POC Glucose (mg/dL) 175 H 205 H (70-110) mg/dL Calcium (8.4-10.2) mg/dL Assessment and Plan (1) Diabetic infection of right foot Current Visit: Yes Status: Acute Code(s): E11.628 - TYPE 2 DIABETES MELLITUS WITH OTHER SKIN COMPLICATIONS; L08.9 - LOCAL INFECTION OF THE SKIN AND SUBCUTANEOUS TISSUE, UNSP SNOMED Code(s): 584054883 (2) MRSA (methicillin resistant staph aureus) culture positive Current Visit: Yes Status: Acute Code(s): Z22.322 - CARRIER OR SUSPECTED CARRIER OF METHICILLIN RESIS STAPH SNOMED Code(s): 864185634 (3) Diabetic ulcer of right foot Current Visit: No Status: Acute Code(s): E11.621 - TYPE 2 DIABETES MELLITUS WITH FOOT ULCER; L97.519 - NON-PRS CHRONIC ULCER OTH PRT RIGHT FOOT W UNSP SEVERITY SNOMED Code(s): 737990150 (4) Stage III pressure ulcer of right heel Current Visit: No Status: Acute Code(s): L89.613 - PRESSURE ULCER OF RIGHT HEEL, STAGE 3 SNOMED Code(s): 47275186965331 Plan: 1patient with a chronic nonhealing wound to the right heel which he has for couple of months the wound looks deep with a recent culture positive for Proteus and MRSA concerning for wound infection and question for possible deeper infection such as osteomyelitis as wound has been there for couple of months now 2- x-rays of the right heel with no evidence of any bony changes 3-patient has been evaluated by Dr. Carpenter and did have surgical debridement completed on 06/07/2024 and did have a further debridement at the bedside by his health underwriter on 06/14/2024 4-patient leukocytosis more likely steroid related as no evidence of any worsening infection and the patient white count has normalized down to 9.6 as of yesterday mild elevated at 11,000 5patient currently be treated Zosyn and daptomycin for his right heel infected ulcer which still looks inflamed and will benefit from further surgical debridement we will discussed with the vascular surgery Dictation was produced using [employer] dictation software. please excuse any grammatical, word or spelling errors. Time with Patient: Less than 30
--- NOTE | 2024-06-29 14:25 | P.PN ---
Subjective Progress Note Date: 06/28/24 Principal diagnosis: Reason for follow-up is right heel diabetic foot ulcer with MRSA infection Patient is a 73-year-old male with a past medical history significant for diabetes mellitus hypertension hyperlipidemia osteomyelitis patient has been dealing with a chronic nonhealing wound to the right heel area for months now and is being treated in outpatient setting by Dr. Jernigan his mechanical piping designer with recent outpatient culture positive for MRSA and is Proteus. On today's evaluation that is 06/28/2024, the patient continues to be afebrile, the patient is on BiPAP with 60% FiO2, patient denies denies having any chest pain or cough, the patient denies having any abdominal pain no vomiting or any diarrhea has been reported by the nursing staff. Patient with normalized to 9.6, creatinine is 4.63 Objective - Vital Signs Vital signs: Vital Signs Temp 97.5 F 06/28/24 16:00 Pulse 80 06/28/24 16:00 Resp 21 06/28/24 16:00 BP 102/53 06/28/24 16:00 Pulse Ox 96 06/28/24 16:00 FiO2 60 06/28/24 16:00 - Exam GENERAL DESCRIPTION: An elderly male lying in bed in no distress RESPIRATORY SYSTEM: Unlabored breathing , decreased breath sounds at bases HEART: S1 S2 regular rate and rhythm , ABDOMEN: Soft , no tenderness EXTREMITIES: Right hand wound is currently dressed - Labs CBC & Chem 7: 06/29/24 05:09 06/29/24 05:09 Labs: Abnormal Lab Results - Last 24 Hours (Table) 06/28/24 06/28/24 06/28/24 Range/Units 15:20 17:24 19:56 WBC (3.8-10.6) k/uL RBC (4.30-5.90) m/uL Hgb (13.0-17.5) gm/dL Hct (39.0-53.0) % MCHC (31.0-37.0) g/dL RDW (11.5-15.5) % Plt Count (150-450) k/uL Neutrophils # (1.3-7.7) k/uL Lymphocytes # (1.0-4.8) k/uL Sodium (137-145) mmol/L Chloride (98-107) mmol/L Carbon Dioxide (22-30) mmol/L BUN (9-20) mg/dL Creatinine (0.66-1.25) mg/dL Glucose (74-99) mg/dL POC Glucose (mg/dL) 177 H 257 H 252 H (70-110) mg/dL Calcium (8.4-10.2) mg/dL 06/28/24 06/29/24 06/29/24 Range/Units 23:32 05:09 05:09 WBC 11.1 H (3.8-10.6) k/uL RBC 3.12 L (4.30-5.90) m/uL Hgb 9.2 L (13.0-17.5) gm/dL Hct 31.1 L (39.0-53.0) % MCHC 29.7 L (31.0-37.0) g/dL RDW 17.5 H (11.5-15.5) % Plt Count 97 L (150-450) k/uL Neutrophils # 10.6 H (1.3-7.7) k/uL Lymphocytes # 0.1 L (1.0-4.8) k/uL Sodium 129 L (137-145) mmol/L Chloride 90 L (98-107) mmol/L Carbon Dioxide 31 H (22-30) mmol/L BUN 61 H (9-20) mg/dL Creatinine 3.57 H (0.66-1.25) mg/dL Glucose 182 H (74-99) mg/dL POC Glucose (mg/dL) 284 H (70-110) mg/dL Calcium 8.0 L (8.4-10.2) mg/dL 06/29/24 06/29/24 Range/Units 05:38 11:22 WBC (3.8-10.6) k/uL RBC (4.30-5.90) m/uL Hgb (13.0-17.5) gm/dL Hct (39.0-53.0) % MCHC (31.0-37.0) g/dL RDW (11.5-15.5) % Plt Count (150-450) k/uL Neutrophils # (1.3-7.7) k/uL Lymphocytes # (1.0-4.8) k/uL Sodium (137-145) mmol/L Chloride (98-107) mmol/L Carbon Dioxide (22-30) mmol/L BUN (9-20) mg/dL Creatinine (0.66-1.25) mg/dL Glucose (74-99) mg/dL POC Glucose (mg/dL) 175 H 205 H (70-110) mg/dL Calcium (8.4-10.2) mg/dL Assessment and Plan (1) Diabetic infection of right foot Current Visit: Yes Status: Acute Code(s): E11.628 - TYPE 2 DIABETES MELLITUS WITH OTHER SKIN COMPLICATIONS; L08.9 - LOCAL INFECTION OF THE SKIN AND SUBCUTANEOUS TISSUE, UNSP SNOMED Code(s): 178836228 (2) MRSA (methicillin resistant staph aureus) culture positive Current Visit: Yes Status: Acute Code(s): Z22.322 - CARRIER OR SUSPECTED CARRIER OF METHICILLIN RESIS STAPH SNOMED Code(s): 611600955 (3) Diabetic ulcer of right foot Current Visit: No Status: Acute Code(s): E11.621 - TYPE 2 DIABETES MELLITUS WITH FOOT ULCER; L97.519 - NON-PRS CHRONIC ULCER OTH PRT RIGHT FOOT W UNSP SEVERITY SNOMED Code(s): 863900786 (4) Stage III pressure ulcer of right heel Current Visit: No Status: Acute Code(s): L89.613 - PRESSURE ULCER OF RIGHT HEEL, STAGE 3 SNOMED Code(s): 92325215358780 Plan: 1patient with a chronic nonhealing wound to the right heel which he has for couple of months the wound looks deep with a recent culture positive for Proteus and MRSA concerning for wound infection and question for possible deeper infection such as osteomyelitis as wound has been there for couple of months now 2- x-rays of the right heel with no evidence of any bony changes 3-patient has been evaluated by Dr. Carpenter and did have surgical debridement completed on 06/07/2024 and did have a further debridement at the bedside by his mechanical piping designer on 06/14/2024 4-patient leukocytosis more likely steroid related as no evidence of any worsening infection and the patient white count has normalized down to 9.6 5patient will continue with a course of Zosyn and daptomycin for his right heel infected ulcer which still looks inflamed and monitor clinical course closely Dictation was produced using [employer] software. please excuse any grammatical, word or spelling errors.
--- NOTE | 2024-06-29 14:40 | P.PN ---
Progress Note - Text Progress Note Date: 06/29/24 Interval History: Pleasant 73-year-old patient follows with Dr. Dennis. [place]: Dr. Bales Chronic medical conditions include hypertension, hyperlipidemia, type 2 diabetes, mood disorder, and CAD , ostomy for 25 years, July 2023 stent to the LAD and second diagonal branch by Dr. Bales. April 26, [address] Bales: Following a non-ST relation [place]: Patent stent to mid LAD. Late stent thrombosis of the second diagonal branch of the LAD. Severe disease involving the OM1 appears unchanged. Attempted balloon angioplasty performed to the second of diagonal branch with suboptimal results. Dose of Imdur was increased and Ranexa was added. Patient recently in the hospital from May 28 through May 31. Chronic headaches: MRI unremarkable. MR angio head and neck: MR angio head without contrast: No evidence of aneurysm or significant stenosis. Atrophic right A1 segment. origin of the right posterior cerebral artery.MRI of the brain nonspecific. Was seen by neurology Dr. Gay. Patient to follow-up outpatient Chronic right heel wound seen by Dr. Carpenter from vascular deep debridement was carried out. No need for antibiotics. Patient to follow-up with Dr. Jernigan at the wound center. Shortness of breath: Was seen by cardiology. Not for any further intervention. Patient doing well when discharged. Patient presented increased shortness of breath when at home. His pulse ox dropped out of the 80s. Increasing shortness of breath. Decreased appetite. No fever or chills. June 10: Using his BiPAP. Patient seen this morning. Later this afternoon. Right femoral vein dialysis catheter was placed by Dr. Carpenter from vascular for dialysis. Baseline some shortness of breath. Due for first dialysis today. Patient is right heel culture grew MRSA Proteus P Corynebacterium on May 29. Patient is on IV daptomycin and IV cefepime per ID. June 11: Patient seen this afternoon. On BiPAP. Getting hemodialysis. Remains on IV daptomycin IV Zosyn. Tired. Also getting IV iron. Patient really did not eat today. Because of BiPAP. Cut back Levemir to 26 units at night. DC scheduled NovoLog for now. June 12: Overflowing the ICU. Remains on BiPAP. 04/05/%. at the bedside. Remains on IV daptomycin and IV Zosyn. For dialysis today. X-ray continues shows infiltrates. Significantly hypoxic. N.p.o. June 13: ICU. Remains on BiPAP. 12/6/90% moderate take anything by mouth. Spoke to the nurse have TPN lipids ordered. Remains on IV daptomycin IV Zosyn. Chest x-ray continues to show diffuse infiltrates. Continues to be followed by cardiology pulmonary ID nephrology. June 14: ICU. Later this afternoon patient was put on Airvo. 60/60. Has some delirium. Remains on IV daptomycin and IV Zosyn. Had 2 L ultrafiltration yesterday. Patient getting daily dialysis for now. As patient is oliguric per nephrology Lasix has been held. TPN was ordered yesterday per the nurse culture that returned to feed the patient. Will see how that goes. Dietitian on the case. June 15: ICU. Patient be getting hypotensive. Some medications held back by cardiology. Hemodialysis done today. Patient remains on Airvo though at 50/50. at the bedside. Plans this afternoon to get him up in the chair. Remains on daptomycin and IV Zosyn. IV Lasix been discontinued. Patient tolerating some liquid diet. June 16: Patient moved to the ICU. Remains on Airvo. 45/45. at the bedside. Tolerating full liquids. Spoke to the about the morphine. His headaches are chronic. Use Fioricet as needed. Remains on IV daptomycin and IV Zosyn. IV Solu-Medrol. Amlodipine dose cut back. PT OT. June 17: On 3 S., telemetry floor. Getting hemodialysis today. Remains on IV daptomycin IV Zosyn. On full liquid diet. Advance to ground diet. Minimal urine output. DC fluid restriction. Awake communicating. Accu-Cheks running high. Increase Levemir to 28 units subcu twice daily. Seen by PT OT. Maximum assist. On Airvo 40/40. Cut back Solu-Medrol to every 12. June 18: On a recliner. 7 L nasal cannula. Decreased appetite. at the bedside. Accu-Chek in 200s. IJ PermCath placement pending. Encourage oral intake. Ordered incentive spirometry June 19: Patient was on 7 L nasal cannula yesterday. Patient back on Airvo today. 40 L. Due for hemodialysis today. Had perm dialysis catheter placed right IJ by Dr. Carpenter today. Minimal intake today. Discussed with at the bedside. June 20: Recliner. High flow 15 L nasal cannula. at the bedside. Decreased oral intake.Tired. Hemodialysis today. June 21: Still decreased appetite. Remains on high flow 15 l nasal cannula. Remains on IV daptomycin IV Zosyn per ID. Being followed by multiple consultants spoke to the patient and . Encourage oral intake. June 22: Remains on 15 L high flow nasal cannula. at the bedside. Diet. Remains on IV daptomycin IV Zosyn. Decreased appetite. Will try ground diet. June 23: Monday to the bed. Ate a bit better according to the . Remains on 15 L nasal cannula. Oral candidiasis. Diflucan 200 mg x 1 today. Then 100 mg 3 times a week after each dialysis. Remains on daptomycin IV Zosyn per ID. Discussed with patient 06/24 I am resuming the care of the patient today He is sitting at the edge of the bed feels comfortable. Still requiring 15 units of oxygen, he states that he feels better than yesterday after he was started on IV Solu-Medrol 40 mg twice daily. At home he was not on oxygen Also he is on daptomycin and Diflucan. He is also on antibiotic for his right foot ulcer with dressing in place. No pain 06/25 Patient feels the same Oxygen requirements down from 15 down to 12 L/min His labs showing more hemoconcentration with leukocytosis 23K, hemoglobin 12.2 and platelet 128 all went up little bit. Creatinine 2.5. Sodium improved 132 He remains on Zosyn daptomycin and fluconazole and IV Solu-Medrol 40 mg twice daily 06/26 Patient is breathing quietly while he is sitting in bed. He is getting 11 L via nasal cannula in the morning, however later on it looks like his oxygen supply was increased. Patient denies any other new symptoms His sodium today was 129 and potassium elevated 6.6 and creatinine 4.3. Patient getting dialysis for hyperkalemia protocol. WBC went down to 11.8. Hemoglobin stable at 10.1. Platelet count 122. Remains on triple antibiotics with Diflucan, daptomycin and Zosyn. Also is on IV Solu-Medrol 40 mg twice daily. No more panic attack. Yesterday after rounding he developed panic attacks and improved with Xanax 06/27 Patient required more oxygen starting yesterday and today his saturation well on higher dose of oxygen 40 L/min with FiO2 of 66% Chest x-ray showing cardiomegaly, pulmonary vascular congestion and pleural effusion Currently patient torsemide 40 mg daily Also is getting hemodialysis yesterday and there is another dialysis going on for tomorrow Also he remains on IV Solu-Medrol 40 mg and broad-spectrum antibiotics as above 06/28 Since yesterday patient oxygen requirement started worsening significantly he was placed on high flow nasal cannula at 40 L with FiO2 of 60 to 66%. By the evening patient required to be placed on BiPAP and he was sent to the ICU. Repeat chest x-ray showing cardiomegaly with pulmonary vascular congestion. Echocardiogram from 05/29/2024 showing ejection fraction of 55 to 60%. Patient also undergoing hemodialysis. Creatinine increased today to 4.63. Remains on torsemide, IV Solu-Medrol antibiotics with Zosyn daptomycin and fluconazole 06/29--- patient was seen and examined today. Continues to require on and off BiPAP, currently on heated high flow oxygen, undergoing hemodialysis. Remains on daptomycin and Zosyn. Pulmonary, ID, nephrology following. On Diflucan. Patient is afebrile, heart rate 78, respiratory rate 17, blood pressure 130/61,'s on 50 L heated high flow oxygen. WBC 11.1, hemoglobin 9.2, platelet 97. Sodium 129 potassium 4.0 BUN 61 creatinine 3.57. Assessment and plan: Acute hypoxic respiratory failure: Bilateral pneumonia: Acute diastolic CHF: Acute COPD exacerbation: Right foot diabetic ulcer: MRSA culture positive: ROSELYN on CKD: Now requiring dialysis, right IJ permacath placed to 1025 Hyperkalemia: Resolved Oral candidiasis: Acute on chronic anemia: Anemia of chronic disease History of CAD with previous PCI Diabetes mellitus Hypertension Hyperlipidemia Chronic cephalgia Chronic ostomy History of prostate cancer status post chemo/radiation Chronic right heel wound status post debridement Obesity: Plan: Requires BiPAP, continue inhalers, bronchodilators, Solu-Medrol, pulmonary consulted Nephrology consulted, on hemodialysis, torsemide. Antibiotics: Daptomycin and Zosyn, status post debridement twice 06/07, 06/14 [facility] hospitalization, infectious disease on board Accu-Cheks, diabetic diet, Lantus, Humalog. Continue home meds including aspirin, Plavix, Norvasc, metoprolol, Imdur, Ranexa, Flomax. DVT prophylaxis: Monitor vital signs and labs Labs and medication were reviewed. Continue same treatment. Further recommendations as per clinical course of the patient PHYSICAL EXAMINATION: GENERAL: The patient is A&O x3, NAD HEENT: EOMI, Sclerae anicteric, Moist Mucous membranes Neck: Supple, Non tender, No JVD PULMONARY: Dec breath souds B/L, No wheezing, + crackles. CARDIOVASCULAR: S1, S2 present. No murmurs, rubs, or gallops. ABDOMEN: Soft, nontender, nondistended, normoactive bowel sounds. No guarding or rebound tenderness. MUSCULOSKELETAL: + edema, No cyanosis. No clubbing. Normal ROM. Intact pe ripheral pulses. NEUROLOGICAL: CN 2-12 grossly intact. No FND Skin: No Rash REVIEW OF SYSTEMS: CONSTITUTIONAL: No fever or chills. CARDIOVASCULAR: No chest pain, palpitations or syncope. PULMONARY: No shortness of breath, no cough, sore throat. GASTROINTESTINAL: No nausea, vomiting, diarrhea, abdominal pain. : No Dysuria, urgency, frequency. Extremities: No edema. NEUROLOGICAL: No headaches, no weakness, or numbness Dictation was produced using [employer] dictation software. please excuse any grammatical, word or spelling errors.
[2024-06-29 17:11] LABS: Glucose,Whole Blood 243 mg/dL (70-110)
[2024-06-29 20:40] LABS: Glucose,Whole Blood 272 mg/dL (70-110)
[2024-06-29] MEDS: PIPERACILLIN-TAZOBACTAM 3.375 GM in SODIUM CHLORIDE 0.9% 100 ML IVPB SCH (20:53)
[2024-06-29 23:21] LABS: Glucose,Whole Blood 287 mg/dL (70-110)
[2024-06-30 03:41] LABS: Anisocytosis Slight; Basophils % (A) 0 %; Eosinophils % (A) 0 %; HCT 31.9 % (39.0-53.0); HGB 9.5 gm/dL (13.0-17.5); Hypochromasia Moderate; Lymphocytes # (A) 0.3 k/uL (1.0-4.8); Lymphocytes % (A) 2 %; MCHC 29.9 g/dL (31.0-37.0); MCV 100.4 fL (80.0-100.0); Macrocytosis Slight; Mean Platelet Volume 10.2; Monocytes # (A) 0.3 k/uL (0-1.0); Monocytes % (A) 2 %; Neutrophils # (A) 10.4 k/uL (1.3-7.7); Neutrophils % (A) 95 %; Platelet Count 113 k/uL (150-450); RBC 3.18 m/uL (4.30-5.90); RDW 17.1 % (11.5-15.5)
[2024-06-30 03:54] LABS: African American GFR (CKD) 27 (>60 ml/min/1.73 sqM); Anion Gap 12 mmol/L; Blood Urea Nitrogen 48 mg/dL (9-20); Calcium 8.1 mg/dL (8.4-10.2); Carbon Dioxide 26 mmol/L (22-30); Chloride 90 mmol/L (98-107); Glucose 281 mg/dL (74-99); Non-African American GFR(CKD) 24 (>60 ml/min/1.73 sqM); Potassium 3.8 mmol/L (3.5-5.1); Sodium 128 mmol/L (137-145)
[2024-06-30 05:18] LABS: Glucose,Whole Blood 310 mg/dL (70-110)
[2024-06-30 08:29] LABS: % Iron Saturation 18.41 (15.00-50.00)
--- NOTE | 2024-06-30 09:57 | P.PN ---
Subjective Patient seen for follow-up for chronic kidney disease with acute kidney injury. Initiated hemodialysis 06/10/2024. Currently on Airvo. Awake and alert. Rigid 1.5 L ultrafiltration yesterday. Vital signs are stable. General: Resting in bed. No acute distress. HEENT: On Airvo. LUNGS: Scattered rhonchi. HEART: Rate and Rhythm are regular. ABDOMEN: Obese, nontender. EXTREMITITES: Trace edema. Objective - Vital Signs Vital signs: Vital Signs Temp 97.6 F 06/30/24 08:00 Pulse 73 06/30/24 09:15 Resp 17 06/30/24 09:15 BP 120/54 06/30/24 09:15 Pulse Ox 94 L 06/30/24 09:15 FiO2 70 06/30/24 08:00 Intake & Output 06/29/24 06/30/24 06/30/24 18:59 06:59 18:59 Intake Total 730 110 20 Output Total 3500 130 Balance -2770 -20 20 Weight 98.7 kg Intake: IV 230 110 20 .9NS 130 110 20 Piperacillin-Tazobactam 3 100 .375 gm In Sodium Chloride 0.9% 100 ml @ 25 mls/hr IVPB Q12HR [facility] Rx #:[id number] Hemodialysis 500 Output: Urine 130 Hemodialysis 2000 Hemodialysis Net Amount 1500 Other: # Bowel Movements 1 - Labs CBC & Chem 7: 06/30/24 02:59 06/30/24 02:59 Labs: Abnormal Lab Results - Last 24 Hours (Table) 06/29/24 06/29/24 06/29/24 Range/Units 05:09 11:22 17:10 WBC (3.8-10.6) k/uL RBC (4.30-5.90) m/uL Hgb (13.0-17.5) gm/dL Hct (39.0-53.0) % MCV (80.0-100.0) fL MCHC (31.0-37.0) g/dL RDW (11.5-15.5) % Plt Count (150-450) k/uL Neutrophils # (1.3-7.7) k/uL Lymphocytes # (1.0-4.8) k/uL Sodium (137-145) mmol/L Chloride (98-107) mmol/L BUN (9-20) mg/dL Creatinine (0.66-1.25) mg/dL Glucose (74-99) mg/dL POC Glucose (mg/dL) 205 H 243 H (70-110) mg/dL Calcium (8.4-10.2) mg/dL Iron 44 L (65-175) UG/DL Transferrin 171.0 L (204.0-354.0) mg/dL Ferritin 833.0 H (22.0-322.0) ng/mL 06/29/24 06/29/24 06/30/24 Range/Units 20:39 23:20 02:59 WBC 11.0 H (3.8-10.6) k/uL RBC 3.18 L (4.30-5.90) m/uL Hgb 9.5 L (13.0-17.5) gm/dL Hct 31.9 L (39.0-53.0) % MCV 100.4 H (80.0-100.0) fL MCHC 29.9 L (31.0-37.0) g/dL RDW 17.1 H (11.5-15.5) % Plt Count 113 L (150-450) k/uL Neutrophils # 10.4 H (1.3-7.7) k/uL Lymphocytes # 0.3 L (1.0-4.8) k/uL Sodium (137-145) mmol/L Chloride (98-107) mmol/L BUN (9-20) mg/dL Creatinine (0.66-1.25) mg/dL Glucose (74-99) mg/dL POC Glucose (mg/dL) 272 H 287 H (70-110) mg/dL Calcium (8.4-10.2) mg/dL Iron (65-175) UG/DL Transferrin (204.0-354.0) mg/dL Ferritin (22.0-322.0) ng/mL 06/30/24 06/30/24 Range/Units 02:59 05:17 WBC (3.8-10.6) k/uL RBC (4.30-5.90) m/uL Hgb (13.0-17.5) gm/dL Hct (39.0-53.0) % MCV (80.0-100.0) fL MCHC (31.0-37.0) g/dL RDW (11.5-15.5) % Plt Count (150-450) k/uL Neutrophils # (1.3-7.7) k/uL Lymphocytes # (1.0-4.8) k/uL Sodium 128 L (137-145) mmol/L Chloride 90 L (98-107) mmol/L BUN 48 H (9-20) mg/dL Creatinine 2.58 H (0.66-1.25) mg/dL Glucose 281 H (74-99) mg/dL POC Glucose (mg/dL) 310 H (70-110) mg/dL Calcium 8.1 L (8.4-10.2) mg/dL Iron (65-175) UG/DL Transferrin (204.0-354.0) mg/dL Ferritin (22.0-322.0) ng/mL Assessment and Plan Assessment: # Acute kidney injury secondary to ATN secondary to cardiorenal syndrome. Start hemodialysis 06/10/2024. Has permacath. #Acute on chronic diastolic CHF #Volume overload. #Hypertension with CKD stage IV. Controlled. #Acute hypoxic respiratory failure secondary to CHF. On Airvo. #CAD s/p stent placement #Metabolic acidosis secondary to CKD, improved with dialysis #Right heel wound s/p debridement #Hyperkalemia secondary to acute kidney injury. Improved. # Hypervolemic hyponatremia. Plan: -Hemodialysis tomorrow. Challenge ultrafiltration. -Maintain midodrine as needed during dialysis for systolic blood pressure less than 100. -Hold amlodipine for systolic blood pressure less than 120. -Maintain torsemide 40 mg daily -Switched supplemental nutrition to Nepro due to slightly decreased potassium content -Initiated on renal diet -Avoid nephrotoxic agents -Wean FiO2 -Add IV iron. -Hemodialysis set up as outpatient for M/W/F once discharged
[2024-06-30] MEDS: SODIUM FERRIC GLUCONAT-SUCROSE 125 MG in SODIUM CHLORIDE 0.9% 100 ML IVPB SCH (10:33)
[2024-06-30 11:11] LABS: Glucose,Whole Blood 168 mg/dL (70-110)
[2024-06-30] MEDS: INSULIN LISPRO (HumaLOG) 100 UNIT/ML 10 mL VL SQ SCH ×2 (12:22)
--- NOTE | 2024-06-30 12:26 | P.PN ---
Subjective Progress Note Date: 06/30/24 Principal diagnosis: Acute on chronic diastolic congestive heart failure and acute hypoxic respiratory failure Patient is a 73-year-old male with past medical history significant for hypertension, hyperlipidemia, coronary artery disease with previous PCI/stenting, heart failure, chronic kidney disease, diabetes mellitus, chronic right heel wound, ulcerative colitis with previous colectomy and ileostomy. Of note, patient had a recent hospitalization late May and was just discharged 05/31/2024 for CHF exacerbation. Echocardiogram done during this hospitalization estimating a preserved left ventricular ejection fraction of 55 to 60%. Limited study, but no acute valvular abnormalities reported. Presented the emergency department on 06/04/2024 with a chief complaint of shortness of breath, mostly on exertion. Chest x-ray showing cardiomegaly, mild pulmonary vascular congestion, and a small pleural effusion on the left. NT proBNP elevated 2550. Currently receiving Lasix 80 mg twice daily. CBC: WBC count 10.2, hemoglobin 10.4, hematocrit 32.5, platelets 374. CMP: Sodium 135, potassium 4.6, chloride 101, serum bicarb 18, BUN 66, creatinine 2.71, glucose 139. Troponin is less than 0.012. Patient currently being evaluated on the general medical floor. Appears weak and deconditioned. He is resting in bed on 1 L/min nasal cannula. No respiratory distress noted. Complaining of a generalized headache, which he states is chronic. States that he has been short of breath on exertion for several months to almost 1 year. Particularly on exertion such as climbing stairs or walking to the bathroom. Denies history of COPD or asthma. Never tobacco smoker. Worked in an [employer] shop before he retired. Denies cough. Denies infectious-like symptoms. Current vital signs: Temperature 98 F, heart rate 78 bpm, blood pressure 145/54 mmHg, nontachypneic, SpO2 recorded at 91% on 1 L/min nasal cannula. On 06/21/2024, the patient is being seen for a follow-up. Remains on 15 L of oxygen by nasal cannula. Underwent hemodialysis yesterday and there is no considerable improvement in the patient's oxygenation. At the same time, the follow-up chest x-ray that was done today showed airspace opacities and bilateral pleural effusions. Although CHF and volume overload is highly suspected. Nevertheless, the response to d dialysis has been suboptimal for now. The patient is comfortable. He is feeling a bit weak. He has a right IJ permacath in place. He remains on a combination of Zosyn and daptomycin for a wound infection and ID is on the case. Urine output is minimal at this point in time. Remains on bronchodilators. Rest of the medications remain unchanged. The white cell count of 20 with a hemoglobin of 11.6 and a platelet count of 150 . BUN is 45 with a creatinine of 3.3 and a sodium levels at 134 and potassium level is at 5.3. No other significant events overnight. Discussed the case with the medical team. On 06/22/2024, the patient remains on 15 l of oxygen by nasal cannula. A CAT scan of the chest was done yesterday and the CAT scan showed diffuse bilateral groundglass and airspace opacities throughout the lungs bilaterally consistent with pulmonary edema although atypical infections/acute lung injury cannot be completely ruled out. He has mild to moderate cardiomegaly and cholelithiasis. I suspect those findings are related to interstitial edema and the patient with further respond to dialysis and ultrafiltration. The plan for now is to undergo dialysis with a total of 3 L of ultrafiltration. The patient was started back on IV Solu-Medrol. The white cell count is 17.5, hemoglobin 9.9, platelet count is 116. Sodium level is at 129, BUN 67 with a creatinine of 4.8. He is resting comfortably in bed. He does have some mild shortness of breath even at rest. On 06/23/2024, the patient is being seen for a follow-up. The patient remains on 15 L of oxygen by nasal cannula. I was considering the possibility of interstitial edema/fluid overload contributing to the patient's shortness of breath and hypoxemia. However, despite undergoing a 3 L ultrafiltration yesterday, the patient remains hypoxic. Reviewed the CAT scan of the chest again. This may be a component of acute lung injury, and based on that, the patient was started on steroids. He remains on broad-spectrum antibiotics in addition. Oxygenation remains impaired. Nephrology on the case. Last hemodialysis was yesterday. No new labs are available from today. Resting comfortably in bed on 15 L of oxygen by nasal cannula. Remains on Zosyn and daptomycin. Patient was seen today on 06/24/2024, patient remains on 15 L high flow nasal cannula, surprisingly the patient tells me that he is feeling better, patient was started 2 days ago on dialysis/ultrafiltration, seems to be helping the patient significantly. His urine output is very marginal today. Patient remains on broad-spectrum antibiotics, he is being followed by many consultants including nephrology, patient remains on Zosyn and daptomycin. WBC count 17.7 hemoglobin 9.8 electrolytes showed low sodium of 130 potassium 6 BUN is 43 creatinine 2.97. To the right heel area for months now, and has been treated on outpatient setting for culture positive MRSA and positive for Proteus. Patient clearly has diabetic foot infection, and diabetic right foot ulcer. As well as stage III pressure ulcer of the right heel. Patient was seen today on 06/25/2024, patient is about the same, remains on hemodialysis, he is on 12 L high flow nasal cannula down from 15 yesterday. In spite of this the patient does not seem to be in any distress. Remains on broad-spectrum antibiotics, including Zosyn and daptomycin, patient was dialyzed yesterday, I am not certain if he is scheduled to have dialysis today. Continues to have leukocytosis with WBC of 23 hemoglobin 11.2 electrolytes are normal BUN is down to [address] of the chest from last week showed diffuse bilateral groundglass and airspace opacities throughout both lungs. And mild to moderate cardiomegaly. The findings are findings of either pulmonary edema or atypical pneumonia. Patient was seen today on 06/26/2024, patient is receiving hemodialysis today, his FiO2 requirement has gone up, today he is on Airvo at 80%. Patient is feeling better than expected considering his FiO2 requirement, chest x-ray continues show bilateral interstitial infiltrates/edema. WBC count is 11.8 hemoglobin is 10.1 potassium earlier today was 6.6 BUN 72 creatinine 4.3 and that being addressed by nephrology. Blood sugar was as high as 360 now it is 200. Patient was seen today on 06/27/2024, basically he is about the same, intermittently on Airvo and sometimes on BiPAP, still running low O2 saturation, chest x-ray discharge showing worsening interstitial edema, he felt better yesterday after his hemodialysis, today obviously he needs to go back on BiPAP. He was earlier on Airvo with FiO2 of 65% and 40 L flow, patient seemed to do much better when on BiPAP. Chest x-ray again is showing worsening vascular congestion andPulmonary edema, basic metabolic profile is normal bicarb is normal BUN is 59 creatinine 3.30. Patient was seen today on 06/28/2024, considering his overall condition, patient was transferred from the medical floor to the ICU mostly because of his complicated issues and could not be handled by nursing staff on the floor. Apparently the patient was having intermittent episodes of desaturations, requiring adjustment in his BiPAP and his Airvo. Finally patient was transfer red to ICU, and basically we are maintaining the same treatment plan, hardly any change except while having dialysis today the patient was noted to have soft blood pressure, and I recommended the use of norepinephrine if needed. Otherwise patient is on BiPAP, 14/7/60%. The plan is to remove 3 L with hemodialysis today. Antibiotics ring remains on daptomycin and Zosyn patient remains marginal at best. Patient looks pale however his hemoglobin today is 9.6. The rest of the labs are unremarkable, his bicarb is 24 BUN is 92 creatinine 4.63. Seen today on 06/29/2024, remains in the ICU on BiPAP 14/7/60% he was earlier today on Airvo at 50 L and 70% FiO2. Patient is doing well, he normally does quite well after hemodialysis, he scheduled to have hemodialysis today. Platelets are coming down hence I recommended stopping subcu heparin for now. Patient remains on Zosyn empirically. No major changes noted in the last 24 hours, he is off norepinephrine not requiring any hemodynamic support. WBC count is 11.1 hemoglobin 9.2 electrolytes are normal except for sodium of 129 BUN is 61, creatinine 3.57 chest x-ray continues to show cardiomegaly and pulmonary edema with bilateral pleural effusions Patient was evaluated today on 06/30/2024, remains in the ICU, marginal at best. On BiPAP 14/7 FiO2 60%, and intermittently on Airvo at 50 L or 73% FiO2. O2 saturation is in the low 90s and high 80s most of the time. Patient remains on daptomycin remains on Zosyn, remains intermittently on hemodialysis, his last hemodialysis yesterday and 2 L were removed. Patient had debridement of his foot, and he had MRSA and Proteus in the right heel cultured. Patient has a right subclavian hemodialysis catheter. His oxygen requirement has been relatively high, unable to cut down on his FiO2. Chest x-ray continues show evidence of bilateral interstitial edema. And questionable underlying infiltrates. WBC count is 11 hemoglobin 9.5 sodium 128 potassium 3.8 BUN is 48 creatinine 2.58 Objective - Vital Signs Vital signs: Vital Signs Temp 97.6 F 06/30/24 08:00 Pulse 74 06/30/24 11:56 Resp 24 06/30/24 11:30 BP 128/54 06/30/24 11:30 Pulse Ox 96 06/30/24 11:30 FiO2 73 06/30/24 11:45 Intake & Output 06/29/24 06/30/24 06/30/24 18:59 06:59 18:59 Intake Total 730 110 170 Output Total 3500 130 Balance -2770 -20 170 Weight 98.7 kg Intake: IV 230 110 170 .9NS 130 110 20 DAPTOmycin 350 mg In 50 Sodium Chloride 0.9% 50 ml @ 100 mls/hr IVPB Q48H [facility] Rx#:[id number] Piperacillin-Tazobactam 3 100 100 .375 gm In Sodium Chloride 0.9% 100 ml @ 25 mls/hr IVPB Q12HR [facility] Rx #:[id number] Hemodialysis 500 Output: Urine 130 Hemodialysis 2000 Hemodialysis Net Amount 1500 Other: # Bowel Movements 1 - Exam GENERAL: The patient is alert and oriented x3, not in any acute distress. Although the patient is requiring BiPAP and Airvo HEENT: Pupils are round and equally reacting to light. EOMI. pale conjunctivae CARDIOVASCULAR: S1 and S2 present. No murmurs, rubs, or gallops. PULMONARY: Crackles and rhonchi by persist bilaterally especially at the bases ABDOMEN: Soft, nontender, nondistended, normoactive bowel sounds. No palpable organomegaly. MUSCULOSKELETAL: No joint swelling or deformity. -EXTREMITIES: No cyanosis, clubbing, or pedal edema. Right foot ulcer with dressing in place NEUROLOGICAL: Gross neurological examination did not reveal any focal deficits. SKIN: Bipedal edema noted. Right ankle is wrapped with sterile dressing - Labs CBC & Chem 7: 06/30/24 02:59 06/30/24 02:59 Labs: Abnormal Lab Results - Last 24 Hours (Table) 06/29/24 06/29/24 06/29/24 Range/Units 05:09 17:10 20:39 WBC (3.8-10.6) k/uL RBC (4.30-5.90) m/uL Hgb (13.0-17.5) gm/dL Hct (39.0-53.0) % MCV (80.0-100.0) fL MCHC (31.0-37.0) g/dL RDW (11.5-15.5) % Plt Count (150-450) k/uL Neutrophils # (1.3-7.7) k/uL Lymphocytes # (1.0-4.8) k/uL Sodium (137-145) mmol/L Chloride (98-107) mmol/L BUN (9-20) mg/dL Creatinine (0.66-1.25) mg/dL Glucose (74-99) mg/dL POC Glucose (mg/dL) 243 H 272 H (70-110) mg/dL Calcium (8.4-10.2) mg/dL Iron 44 L (65-175) UG/DL Transferrin 171.0 L (204.0-354.0) mg/dL Ferritin 833.0 H (22.0-322.0) ng/mL 06/29/24 06/30/24 06/30/24 Range/Units 23:20 02:59 02:59 WBC 11.0 H (3.8-10.6) k/uL RBC 3.18 L (4.30-5.90) m/uL Hgb 9.5 L (13.0-17.5) gm/dL Hct 31.9 L (39.0-53.0) % MCV 100.4 H (80.0-100.0) fL MCHC 29.9 L (31.0-37.0) g/dL RDW 17.1 H (11.5-15.5) % Plt Count 113 L (150-450) k/uL Neutrophils # 10.4 H (1.3-7.7) k/uL Lymphocytes # 0.3 L (1.0-4.8) k/uL Sodium 128 L (137-145) mmol/L Chloride 90 L (98-107) mmol/L BUN 48 H (9-20) mg/dL Creatinine 2.58 H (0.66-1.25) mg/dL Glucose 281 H (74-99) mg/dL POC Glucose (mg/dL) 287 H (70-110) mg/dL Calcium 8.1 L (8.4-10.2) mg/dL Iron (65-175) UG/DL Transferrin (204.0-354.0) mg/dL Ferritin (22.0-322.0) ng/mL 06/30/24 06/30/24 Range/Units 05:17 11:10 WBC (3.8-10.6) k/uL RBC (4.30-5.90) m/uL Hgb (13.0-17.5) gm/dL Hct (39.0-53.0) % MCV (80.0-100.0) fL MCHC (31.0-37.0) g/dL RDW (11.5-15.5) % Plt Count (150-450) k/uL Neutrophils # (1.3-7.7) k/uL Lymphocytes # (1.0-4.8) k/uL Sodium (137-145) mmol/L Chloride (98-107) mmol/L BUN (9-20) mg/dL Creatinine (0.66-1.25) mg/dL Glucose (74-99) mg/dL POC Glucose (mg/dL) 310 H 168 H (70-110) mg/dL Calcium (8.4-10.2) mg/dL Iron (65-175) UG/DL Transferrin (204.0-354.0) mg/dL Ferritin (22.0-322.0) ng/mL Assessment and Plan Assessment: Impression: Acute exacerbation of diastolic congestive heart failure versus interstitial edema secondary to chronic kidney disease and renal failure. Bilateral pneumonia cannot be completely excluded. Considering the patient is improving with hemodialysis that speaks in favor of pulmonary edema/fluid overload. On hemodialysis. Acute hypoxic respiratory failure, intermittently on BiPAP and on Airvo alternating. Acute on chronic kidney disease now requiring renal replacement therapy that started June 10, 2024, underwent dialysis via permacath in the right IJ Hyperkalemia, resolved Acute on chronic anemia secondary to above History of CAD with previous PCIDiabetes mellitus type II Hypertension Hyperlipidemia Chronic cephalgia History of UC with previous colectomy and ileostomy History of prostate cancer status post chemoradiation Chronic right heel wound, status post debridement Obesity Recommendation: Continue to monitor in the ICU Continue present supportive care measures Continue BiPAP, alternate with Airvo, titrate FiO2 accordingly Continue hemodialysis Continue bronchodilators Continue antibiotics daptomycin and Zosyn Continue IV Solu-Medrol 40 mg IV push every 12 hours Continue GI and DVT prophylaxis Remains quite complicated situation and multiple complex issues on this patient. Overall prognosis, extremely poor If the patient remains about the same or improved may consider transfer back to [facility]. Will continue to follow Time with Patient: Less than 30
--- NOTE | 2024-06-30 14:22 | P.PN ---
Subjective Progress Note Date: 06/30/24 Principal diagnosis: Reason for follow-up is right heel diabetic foot ulcer with MRSA infection Patient is a 73-year-old male with a past medical history significant for diabetes mellitus hypertension hyperlipidemia osteomyelitis patient has been dealing with a chronic nonhealing wound to the right heel area for months now and is being treated in outpatient setting by Dr. Jernigan his bss solution architect with recent outpatient culture positive for MRSA and is Proteus. On today's evaluation that is 06/30/2024, Patient is afebrile patient is currently on room air and mention breathing more comfortably still requiring 50% FiO2 high flow nasal cannula oxygen denies any chest pain or worsening cough no abdominal pain or any diarrhea. The patient white count is 11,000 creatinine is 2.58 Objective - Vital Signs Vital signs: Vital Signs Temp 97.6 F 06/30/24 08:00 Pulse 74 06/30/24 11:56 Resp 24 06/30/24 11:30 BP 128/54 06/30/24 11:30 Pulse Ox 96 06/30/24 11:30 FiO2 73 06/30/24 11:45 Intake & Output 06/29/24 06/30/24 06/30/24 18:59 06:59 18:59 Intake Total 730 110 280 Output Total 3500 130 Balance -2770 -20 280 Weight 98.7 kg Intake: IV 230 110 180 .9NS 130 110 30 DAPTOmycin 350 mg In 50 Sodium Chloride 0.9% 50 ml @ 100 mls/hr IVPB Q48H [facility] Rx#:[id number] Piperacillin-Tazobactam 3 100 100 .375 gm In Sodium Chloride 0.9% 100 ml @ 25 mls/hr IVPB Q12HR [facility] Rx #:[id number] Intake, IV Titration 100 Amount Sodium Ferric Gluconat- 100 Sucrose 125 mg In Sodium Chloride 0.9% 100 ml @ 100 mls/hr IVPB DAILY [facility] Rx#:[id number] Hemodialysis 500 Output: Urine 130 Hemodialysis 2000 Hemodialysis Net Amount 1500 Other: # Bowel Movements 1 - Exam GENERAL DESCRIPTION: An elderly male lying in bed in no distress RESPIRATORY SYSTEM: Unlabored breathing , decreased breath sounds at bases HEART: S1 S2 regular rate and rhythm , ABDOMEN: Soft , no tenderness EXTREMITIES: Right hand wound is currently dressed - Labs CBC & Chem 7: 06/30/24 02:59 06/30/24 02:59 Labs: Abnormal Lab Results - Last 24 Hours (Table) 06/29/24 06/29/24 06/29/24 Range/Units 05:09 17:10 20:39 WBC (3.8-10.6) k/uL RBC (4.30-5.90) m/uL Hgb (13.0-17.5) gm/dL Hct (39.0-53.0) % MCV (80.0-100.0) fL MCHC (31.0-37.0) g/dL RDW (11.5-15.5) % Plt Count (150-450) k/uL Neutrophils # (1.3-7.7) k/uL Lymphocytes # (1.0-4.8) k/uL Sodium (137-145) mmol/L Chloride (98-107) mmol/L BUN (9-20) mg/dL Creatinine (0.66-1.25) mg/dL Glucose (74-99) mg/dL POC Glucose (mg/dL) 243 H 272 H (70-110) mg/dL Calcium (8.4-10.2) mg/dL Iron 44 L (65-175) UG/DL Transferrin 171.0 L (204.0-354.0) mg/dL Ferritin 833.0 H (22.0-322.0) ng/mL 06/29/24 06/30/24 06/30/24 Range/Units 23:20 02:59 02:59 WBC 11.0 H (3.8-10.6) k/uL RBC 3.18 L (4.30-5.90) m/uL Hgb 9.5 L (13.0-17.5) gm/dL Hct 31.9 L (39.0-53.0) % MCV 100.4 H (80.0-100.0) fL MCHC 29.9 L (31.0-37.0) g/dL RDW 17.1 H (11.5-15.5) % Plt Count 113 L (150-450) k/uL Neutrophils # 10.4 H (1.3-7.7) k/uL Lymphocytes # 0.3 L (1.0-4.8) k/uL Sodium 128 L (137-145) mmol/L Chloride 90 L (98-107) mmol/L BUN 48 H (9-20) mg/dL Creatinine 2.58 H (0.66-1.25) mg/dL Glucose 281 H (74-99) mg/dL POC Glucose (mg/dL) 287 H (70-110) mg/dL Calcium 8.1 L (8.4-10.2) mg/dL Iron (65-175) UG/DL Transferrin (204.0-354.0) mg/dL Ferritin (22.0-322.0) ng/mL 06/30/24 06/30/24 Range/Units 05:17 11:10 WBC (3.8-10.6) k/uL RBC (4.30-5.90) m/uL Hgb (13.0-17.5) gm/dL Hct (39.0-53.0) % MCV (80.0-100.0) fL MCHC (31.0-37.0) g/dL RDW (11.5-15.5) % Plt Count (150-450) k/uL Neutrophils # (1.3-7.7) k/uL Lymphocytes # (1.0-4.8) k/uL Sodium (137-145) mmol/L Chloride (98-107) mmol/L BUN (9-20) mg/dL Creatinine (0.66-1.25) mg/dL Glucose (74-99) mg/dL POC Glucose (mg/dL) 310 H 168 H (70-110) mg/dL Calcium (8.4-10.2) mg/dL Iron (65-175) UG/DL Transferrin (204.0-354.0) mg/dL Ferritin (22.0-322.0) ng/mL Assessment and Plan (1) Diabetic infection of right foot Current Visit: Yes Status: Acute Code(s): E11.628 - TYPE 2 DIABETES MELLITUS WITH OTHER SKIN COMPLICATIONS; L08.9 - LOCAL INFECTION OF THE SKIN AND SUBCUTANEOUS TISSUE, UNSP SNOMED Code(s): 682656293 (2) MRSA (methicillin resistant staph aureus) culture positive Current Visit: Yes Status: Acute Code(s): Z22.322 - CARRIER OR SUSPECTED CARRIER OF METHICILLIN RESIS STAPH SNOMED Code(s): 921829791 (3) Diabetic ulcer of right foot Current Visit: No Status: Acute Code(s): E11.621 - TYPE 2 DIABETES MELLITUS WITH FOOT ULCER; L97.519 - NON-PRS CHRONIC ULCER OTH PRT RIGHT FOOT W UNSP SEVERITY SNOMED Code(s): 731458925 (4) Stage III pressure ulcer of right heel Current Visit: No Status: Acute Code(s): L89.613 - PRESSURE ULCER OF RIGHT HEEL, STAGE 3 SNOMED Code(s): 07818002817487 Plan: 1patient with a chronic nonhealing wound to the right heel which he has for couple of months the wound looks deep with a recent culture positive for Proteus and MRSA concerning for wound infection and question for possible deeper infection such as osteomyelitis as wound has been there for couple of months now 2- x-rays of the right heel with no evidence of any bony changes 3-patient has been evaluated by Dr. Carpenter and did have surgical debridement completed on 06/07/2024 and did have a further debridement at the bedside by his bss solution architect on 06/14/2024 4-patient leukocytosis more likely steroid related as no evidence of any worsening infection and the patient white count has normalized down to 9.6 c urrently mildly elevated to 11,000 5patient to continue with Zosyn and daptomycin for his right heel infected ulcer and monitor clinical course closely Dictation was produced using [employer] dictation software. please excuse any grammatical, word or spelling errors.
--- NOTE | 2024-06-30 14:57 | P.PN ---
Subjective Progress Note Date: 06/30/24 Interval History: Pleasant 73-year-old patient follows with Dr. Dennis. Manager Of International: Dr. Bales Chronic medical conditions include hypertension, hyperlipidemia, type 2 diabetes, mood disorder, and CAD , ostomy for 25 years, July 2023 stent to the LAD and second diagonal branch by Dr. Bales. April [id number] cardiac catheterization with Dr. Bales: Following a non-ST relation DE: Patent stent to mid LAD. Late stent thrombosis of the second diagonal branch of the LAD. Severe disease involving the OM1 appears unchanged. Attempted balloon angioplasty performed to the second of diagonal branch with suboptimal results. Dose of Imdur was increased and Ranexa was added. Patient recently in the hospital from May 28 through May 31. Chronic headaches: MRI unremarkable. MR angio head and neck: MR angio head without contrast: No evidence of aneurysm or significant stenosis. Atrophic right A1 segment. origin of the right posterior cerebral artery.MRI of the brain nonspecific. Was seen by neurology Dr. Gay. Patient to follow-up outpatient Chronic right heel wound seen by Dr. Carpenter from vascular deep debridement was carried out. No need for antibiotics. Patient to follow-up with Dr. Jernigan at the wound center. Shortness of breath: Was seen by cardiology. Not for any further intervention. Patient doing well when discharged. Patient presented increased shortness of breath when at home. His pulse ox dropped out of the 80s. Increasing shortness of breath. Decreased appetite. No fever or chills. June 10: Using his BiPAP. Patient seen this morning. Later this afternoon. Right femoral vein dialysis catheter was placed by Dr. Carpenter from vascular for dialysis. Baseline some shortness of breath. Due for first dialysis today. Patient is right heel culture grew MRSA Proteus P Corynebacterium on May 29. Patient is on IV daptomycin and IV cefepime per ID. June 11: Patient seen this afternoon. On BiPAP. Getting hemodialysis. Remains on IV daptomycin IV Zosyn. Tired. Also getting IV iron. Patient really did not eat today. Because of BiPAP. Cut back Levemir to 26 units at night. DC scheduled NovoLog for now. June 12: Overflowing the ICU. Remains on BiPAP. 04/05/%. at the bedside. Remains on IV daptomycin and IV Zosyn. For dialysis today. X-ray continues shows infiltrates. Significantly hypoxic. N.p.o. June 13: ICU. Remains on BiPAP. 12/6/90% moderate take anything by mouth. Spoke to the nurse have TPN lipids ordered. Remains on IV daptomycin IV Zosyn. Chest x-ray continues to show diffuse infiltrates. Continues to be followed by cardiology pulmonary ID nephrology. June 14: ICU. Later this afternoon patient was put on Airvo. 60/60. Has some delirium. Remains on IV daptomycin and IV Zosyn. Had 2 L ultrafiltration yesterday. Patient getting daily dialysis for now. As patient is oliguric per nephrology Lasix has been held. TPN was ordered yesterday per the nurse culture that returned to feed the patient. Will see how that goes. Dietitian on the case. June 15: ICU. Patient be getting hypotensive. Some medications held back by cardiology. Hemodialysis done today. Patient remains on Airvo though at 50/50. at the bedside. Plans this afternoon to get him up in the chair. Remains on daptomycin and IV Zosyn. IV Lasix been discontinued. Patient tolerating some liquid diet. June 16: Patient moved to the ICU. Remains on Airvo. 45/45. at the bedside. Tolerating full liquids. Spoke to the about the morphine. His headaches are chronic. Use Fioricet as needed. Remains on IV daptomycin and IV Zosyn. IV Solu-Medrol. Amlodipine dose cut back. PT OT. June 17: On 3 S., telemetry floor. Getting hemodialysis today. Remains on IV daptomycin IV Zosyn. On full liquid diet. Advance to ground diet. Minimal urine output. DC fluid restriction. Awake communicating. Accu-Cheks running high. Increase Levemir to 28 units subcu twice daily. Seen by PT OT. Maximum assist. On Airvo 40/40. Cut back Solu-Medrol to every 12. June 18: On a recliner. 7 L nasal cannula. Decreased appetite. at the bedside. Accu-Chek in 200s. IJ PermCath placement pending. Encourage oral intake. Ordered incentive spirometry June 19: Patient was on 7 L nasal cannula yesterday. Patient back on Airvo today. 40 L. Due for hemodialysis today. Had perm dialysis catheter placed right IJ by Dr. Carpenter today. Minimal intake today. Discussed with at the bedside. June 20: Recliner. High flow 15 L nasal cannula. at the bedside. Decreased oral intake.Tired. Hemodialysis today. June 21: Still decreased appetite. Remains on high flow 15 l nasal cannula. Remains on IV daptomycin IV Zosyn per ID. Being followed by multiple consultants spoke to the patient and . Encourage oral intake. June 22: Remains on 15 L high flow nasal cannula. at the bedside. Diet. Remains on IV daptomycin IV Zosyn. Decreased appetite. Will try ground diet. June 23: Monday to the bed. Ate a bit better according to the . Remains on 15 L nasal cannula. Oral candidiasis. Diflucan 200 mg x 1 today. T hen 100 mg 3 times a week after each dialysis. Remains on daptomycin IV Zosyn per ID. Discussed with patient 06/24 I am resuming the care of the patient today He is sitting at the edge of the bed feels comfortable. Still requiring 15 units of oxygen, he states that he feels better than yesterday after he was started on IV Solu-Medrol 40 mg twice daily. At home he was not on oxygen Also he is on daptomycin and Diflucan. He is also on antibiotic for his right foot ulcer with dressing in place. No pain 06/25 Patient feels the same Oxygen requirements down from 15 down to 12 L/min His labs showing more hemoconcentration with leukocytosis 23K, hemoglobin 12.2 and platelet 128 all went up little bit. Creatinine 2.5. Sodium improved 132 He remains on Zosyn daptomycin and fluconazole and IV Solu-Medrol 40 mg twice daily 06/26 Patient is breathing quietly while he is sitting in bed. He is getting 11 L via nasal cannula in the morning, however later on it looks like his oxygen supply was increased. Patient denies any other new symptoms His sodium today was 129 and potassium elevated 6.6 and creatinine 4.3. Patient getting dialysis for hyperkalemia protocol. WBC went down to 11.8. Hemoglobin stable at 10.1. Platelet count 122. Remains on triple antibiotics with Diflucan, daptomycin and Zosyn. Also is on IV Solu-Medrol 40 mg twice daily. No more panic attack. Yesterday after rounding he developed panic attacks and improved with Xanax 06/27 Patient required more oxygen starting yesterday and today his saturation well on higher dose of oxygen 40 L/min with FiO2 of 66% Chest x-ray showing cardiomegaly, pulmonary vascular congestion and pleural effusion Currently patient torsemide 40 mg daily Also is getting hemodialysis yesterday and there is another dialysis going on for tomorrow Also he remains on IV Solu-Medrol 40 mg and broad-spectrum antibiotics as above 06/28 Since yesterday patient oxygen requirement started worsening significantly he was placed on high flow nasal cannula at 40 L with FiO2 of 60 to 66%. By the evening patient required to be placed on BiPAP and he was sent to the ICU. Repeat chest x-ray showing cardiomegaly with pulmonary vascular congestion. Echocardiogram from 05/29/2024 showing ejection fraction of 55 to 60%. Patient also undergoing hemodialysis. Creatinine increased today to 4.63. Remains on torsemide, IV Solu-Medrol antibiotics with Zosyn daptomycin and fluconazole 06/29--- patient was seen and examined today. Continues to require on and off BiPAP, currently on heated high flow oxygen, undergoing hemodialysis. Remains on daptomycin and Zosyn. Pulmonary, ID, nephrology following. On Diflucan. Patient is afebrile, heart rate 78, respiratory rate 17, blood pressure 130/61,'s on 50 L heated high flow oxygen. WBC 11.1, hemoglobin 9.2, platelet 97. Sodium 129 potassium 4.0 BUN 61 creatinine 3.57. 06/30--patient was seen and examined today. Afebrile, heart rate 80, respiratory rate 19, blood pressure 121/58, saturating 94% on 50 L heated high flow. WBCs 11.0, hemoglobin 9.5, platelet 113. Sodium 128 potassium 3.8, chloride 90, CO2 26, BUN 48, creatinine 2.58. Patient reported urine output today. Infectious disease following, currently on Zosyn and daptomycin. ICU following. Nephrology following, plan for hemodialysis tomorrow, challenge ultrafiltration. Currently on torsemide. Received IV iron. Assessment and plan: Acute hypoxic respiratory failure: Bilateral pneumonia: Acute diastolic CHF: Acute COPD exacerbation: Right foot diabetic ulcer: MRSA culture positive: ROSELYN on CKD: Now requiring dialysis, right IJ permacath placed to 1025 Hyperkalemia: Resolved Oral candidiasis: Acute on chronic anemia: Anemia of chronic disease History of CAD with previous PCI Diabetes mellitus Hypertension Hyperlipidemia Chronic cephalgia Chronic ostomy History of prostate cancer status post chemo/radiation Chronic right heel wound status post debridement Obesity: Plan: Requires BiPAP, continue inhalers, bronchodilators, Solu-Medrol, pulmonary consulted Nephrology consulted, on hemodialysis, torsemide. Antibiotics: Daptomycin and Zosyn, status post debridement twice 06/07, 06/14 during hospitalization, infectious disease on board Accu-Cheks, diabetic diet, Lantus, Humalog. Continue home meds including aspirin, Plavix, Norvasc, metoprolol, Imdur, Ranexa, Flomax. DVT prophylaxis: Monitor vital signs and labs Labs and medication were reviewed. Continue same treatment. Further recommendations as per clinical course of the patient PHYSICAL EXAMINATION: GENERAL: The patient is A&O x3, NAD HEENT: EOMI, Sclerae anicteric, Moist Mucous membranes Neck: Supple, Non tender, No JVD PULMONARY: Dec breath souds B/L, No wheezing, + crackles. CARDIOVASCULAR: S1, S2 present. No murmurs, rubs, or gallops. ABDOMEN: Soft, nontender, nondistended, normoactive bowel sounds. No guarding or rebound tenderness. MUSCULOSKELETAL: + edema, No cyanosis. No clubbing. Normal ROM. Intact peripheral pulses. NEUROLOGICAL: CN 2-12 grossly intact. No FND Skin: No Rash REVIEW OF SYSTEMS: CONSTITUTIONAL: No fever or chills. CARDIOVASCULAR: No chest pain, palpitations or syncope. PULMONARY: No shortness of breath, no cough, sore throat. GASTROINTESTINAL: No nausea, vomiting, diarrhea, abdominal pain. : No Dysuria, urgency, frequency. Extremities: No edema. NEUROLOGICAL: No headaches, no weakness, or numbness Dictation was produced using [employer] dictation software. please excuse any grammatical, word or spelling errors. Objective - Vital Signs Vital signs: Vital Signs Temp 97.6 F 06/30/24 08:00 Pulse 80 06/30/24 14:30 Resp 19 06/30/24 14:30 BP 121/58 06/30/24 14:30 Pulse Ox 95 06/30/24 14:30 FiO2 73 06/30/24 11:45 Intake & Output 0306/30/24 06/30/24 18:59 06:59 18:59 Intake Total 730 110 280 Output Total 3500 130 Balance -2770 -20 280 Weight 98.7 kg Intake: IV 230 110 180 .9NS 130 110 30 DAPTOmycin 350 mg In 50 Sodium Chloride 0.9% 50 ml @ 100 mls/hr IVPB Q48H JOSÉ Rx#:[id number] Piperacillin-Tazobactam 3 100 100 .375 gm In Sodium Chloride 0.9% 100 ml @ 25 mls/hr IVPB Q12HR JOSÉ Rx #:[id number] Intake, IV Titration 100 Amount Sodium Ferric Gluconat- 100 Sucrose 125 mg In Sodium Chloride 0.9% 100 ml @ 100 mls/hr IVPB DAILY JOSÉ Rx#:[id number] Hemodialysis 500 Output: Urine 130 Hemodialysis 2000 Hemodialysis Net Amount 1500 Other: # Bowel Movements 1 - Labs CBC & Chem 7: 06/30/24 02:59 06/30/24 02:59 Labs: Abnormal Lab Results - Last 24 Hours (Table) 06/29/24 06/29/24 06/29/24 Range/Units 05:09 17:10 20:39 WBC (3.8-10.6) k/uL RBC (4.30-5.90) m/uL Hgb (13.0-17.5) gm/dL Hct (39.0-53.0) % MCV (80.0-100.0) fL MCHC (31.0-37.0) g/dL RDW (11.5-15.5) % Plt Count (150-450) k/uL Neutrophils # (1.3-7.7) k/uL Lymphocytes # (1.0-4.8) k/uL Sodium (137-145) mmol/L Chloride (98-107) mmol/L BUN (9-20) mg/dL Creatinine (0.66-1.25) mg/dL Glucose (74-99) mg/dL POC Glucose (mg/dL) 243 H 272 H (70-110) mg/dL Calcium (8.4-10.2) mg/dL Iron 44 L (65-175) UG/DL Transferrin 171.0 L (204.0-354.0) mg/dL Ferritin 833.0 H (22.0-322.0) ng/mL 06/29/24 06/30/24 06/30/24 Range/Units 23:20 02:59 02:59 WBC 11.0 H (3.8-10.6) k/uL RBC 3.18 L (4.30-5.90) m/uL Hgb 9.5 L (13.0-17.5) gm/dL Hct 31.9 L (39.0-53.0) % MCV 100.4 H (80.0-100.0) fL MCHC 29.9 L (31.0-37.0) g/dL RDW 17.1 H (11.5-15.5) % Plt Count 113 L (150-450) k/uL Neutrophils # 10.4 H (1.3-7.7) k/uL Lymphocytes # 0.3 L (1.0-4.8) k/uL Sodium 128 L (137-145) mmol/L Chloride 90 L (98-107) mmol/L BUN 48 H (9-20) mg/dL Creatinine 2.58 H (0.66-1.25) mg/dL Glucose 281 H (74-99) mg/dL POC Glucose (mg/dL) 287 H (70-110) mg/dL Calcium 8.1 L (8.4-10.2) mg/dL Iron (65-175) UG/DL Transferrin (204.0-354.0) mg/dL Ferritin (22.0-322.0) ng/mL 06/30/24 06/30/24 Range/Units 05:17 11:10 WBC (3.8-10.6) k/uL RBC (4.30-5.90) m/uL Hgb (13.0-17.5) gm/dL Hct (39.0-53.0) % MCV (80.0-100.0) fL MCHC (31.0-37.0) g/dL RDW (11.5-15.5) % Plt Count (150-450) k/uL Neutrophils # (1.3-7.7) k/uL Lymphocytes # (1.0-4.8) k/uL Sodium (137-145) mmol/L Chloride (98-107) mmol/L BUN (9-20) mg/dL Creatinine (0.66-1.25) mg/dL Glucose (74-99) mg/dL POC Glucose (mg/dL) 310 H 168 H (70-110) mg/dL Calcium (8.4-10.2) mg/dL Iron (65-175) UG/DL Transferrin (204.0-354.0) mg/dL Ferritin (22.0-322.0) ng/mL
[2024-06-30 16:40] LABS: Glucose,Whole Blood 180 mg/dL (70-110)
[2024-06-30 20:32] LABS: Glucose,Whole Blood 223 mg/dL (70-110)
[2024-07-01 06:33] LABS: Glucose,Whole Blood 123 mg/dL (70-110)
[2024-07-01 07:33] LABS: Anisocytosis Slight; Basophils % (A) 0 %; Eosinophils % (A) 0 %; HCT 31.2 % (39.0-53.0); HGB 9.4 gm/dL (13.0-17.5); Hypochromasia Marked; Lymphocytes # (A) 0.2 k/uL (1.0-4.8); Lymphocytes % (A) 2 %; MCH 30.4 pg (25.0-35.0); MCV 101.2 fL (80.0-100.0); Macrocytosis Slight; Mean Platelet Volume 9.4; Monocytes # (A) 0.4 k/uL (0-1.0); Monocytes % (A) 3 %; Neutrophils # (A) 12.6 k/uL (1.3-7.7); Neutrophils % (A) 94 %; Platelet Count 131 k/uL (150-450); RBC 3.08 m/uL (4.30-5.90); WBC 13.3 k/uL (3.8-10.6)
[2024-07-01 07:47] LABS: African American GFR (CKD) 15 (>60 ml/min/1.73 sqM); Anion Gap 12 mmol/L; Blood Urea Nitrogen 90 mg/dL (9-20); Calcium 8.2 mg/dL (8.4-10.2); Carbon Dioxide 23 mmol/L (22-30); Chloride 92 mmol/L (98-107); Glucose 104 mg/dL (74-99); Non-African American GFR(CKD) 13 (>60 ml/min/1.73 sqM); Potassium 4.2 mmol/L (3.5-5.1); Sodium 127 mmol/L (137-145)
--- NOTE | 2024-07-01 07:53 | XR ---
EXAMINATION TYPE: XR chest 1V portable DATE OF EXAM: 07/01/2024 5:25 AM COMPARISON: Multiple radiographs, with the most recent on 06/29/2024 TECHNIQUE: XR chest 1V portable Portable AP radiograph of the chest. CLINICAL INDICATION:Male, 73 years old with history of f/u pulmonary edema; FINDINGS: Lungs/Pleura: Blunting of both costophrenic angles. Similar diffuse interstitial prominence and patch y opacities. No pneumothorax. Heart/mediastinum: Cardiomediastinal silhouette is enlarged and stable. Musculoskeletal: No acute osseous pathology. Other findings: None Lines/Tubes: Right IJ approach dual-lumen hemodialysis catheter with distal tip terminating in the right atrium. IMPRESSION: Similar cardiomegaly, pulmonary edema and bilateral pleural effusions. Correlate with BNP for congest lidia heart failure. Superimposed infectious process is not excluded. [facility], , 07/01/2024 7:50 AM
--- NOTE | 2024-07-01 10:22 | P.PN ---
Subjective Patient is seen for follow-up for chronic kidney disease and acute kidney injury. Started hemodialysis on 06/10/2024 Patient is seen in the ICU. Oxygen requirements remain high. Currently on high flow Airvo with FiO2 at 70 to 75% Seen on hemodialysis. Tolerating treatment well. Objective - Vital Signs Vital signs: Vital Signs Temp 97.4 F L 07/01/24 08:00 Pulse 82 07/01/24 09:00 Resp 20 07/01/24 09:00 BP 95/83 07/01/24 09:00 Pulse Ox 93 L 07/01/24 09:00 FiO2 70 07/01/24 08:00 Intake & Output 06/30/24 07/01/24 07/01/24 18:59 06:59 18:59 Intake Total 760 640 100 Output Total 550 100 0 Balance 210 540 100 Weight 96.8 kg Intake: IV 180 100 .9NS 30 DAPTOmycin 350 mg In 50 Sodium Chloride 0.9% 50 ml @ 100 mls/hr IVPB Q48H JOS[facility] Rx#:[id number] Piperacillin-Tazobactam 3 100 100 .375 gm In Sodium Chloride 0.9% 100 ml @ 25 mls/hr IVPB Q12HR JOS[facility] Rx #:[id number] Intake, IV Titration 100 100 Amount Sodium Ferric Gluconat- 100 100 Sucrose 125 mg In Sodium Chloride 0.9% 100 ml @ 100 mls/hr IVPB DAILY JOSÉ Rx#:[id number] Oral 480 540 Output: Urine 150 0 0 Stool 400 100 Other: Voiding Method Urinal Urinal - Exam Patient is awake, comfortable, no acute distress Examination of the heart S1 and S2 Examination of the lungs bilateral breath sounds are heard Abdomen is soft nontender Examination of lower extremities shows trace edema [employer] exam grossly intact - Labs CBC & Chem 7: 07/01/24 07:09 07/01/24 07:09 Labs: Abnormal Lab Results - Last 24 Hours (Table) 06/30/24 06/30/24 06/30/24 Range/Units 11:10 16:39 20:30 WBC (3.8-10.6) k/uL RBC (4.30-5.90) m/uL Hgb (13.0-17.5) gm/dL Hct (39.0-53.0) % MCV (80.0-100.0) fL MCHC (31.0-37.0) g/dL RDW (11.5-15.5) % Plt Count (150-450) k/uL Neutrophils # (1.3-7.7) k/uL Lymphocytes # (1.0-4.8) k/uL Sodium (137-145) mmol/L Chloride (98-107) mmol/L BUN (9-20) mg/dL Creatinine (0.66-1.25) mg/dL Glucose (74-99) mg/dL POC Glucose (mg/dL) 168 H 180 H 223 H (70-110) mg/dL Calcium (8.4-10.2) mg/dL 07/01/24 07/01/24 07/01/24 Range/Units 06:31 07:09 07:09 WBC 13.3 H (3.8-10.6) k/uL RBC 3.08 L (4.30-5.90) m/uL Hgb 9.4 L (13.0-17.5) gm/dL Hct 31.2 L (39.0-53.0) % MCV 101.2 H (80.0-100.0) fL MCHC 30.0 L (31.0-37.0) g/dL RDW 17.0 H (11.5-15.5) % Plt Count 131 L (150-450) k/uL Neutrophils # 12.6 H (1.3-7.7) k/uL Lymphocytes # 0.2 L (1.0-4.8) k/uL Sodium 127 L (137-145) mmol/L Chloride 92 L (98-107) mmol/L BUN 90 H (9-20) mg/dL Creatinine 4.14 H (0.66-1.25) mg/dL Glucose 104 H (74-99) mg/dL POC Glucose (mg/dL) 123 H (70-110) mg/dL Calcium 8.2 L (8.4-10.2) mg/dL Assessment and Plan Assessment: 1. Acute kidney injury, nonoliguric, cardiorenal. UA is benign and ultrasound does not show any evidence of hydronephrosis. Started hemodialysis on 06/10/2024 for significant oliguric acute kidney injury. 2. Acute on chronic diastolic CHF 3. Volume overload 4. Hypertension with CKD stage IV 5. Acute hypoxic respiratory failure secondary to CHF 6. Coronary artery disease with history of coronary stents 7. Metabolic acidosis maintained on oral sodium bicarb and improved with dialysis 8. Right heel wound status post debridement Plan: We will continue with daily dialysis/ultrafiltration for fluid overload. Encouraged increased oral intake.
[2024-07-01 11:00] LABS: Glucose,Whole Blood 117 mg/dL (70-110)
--- NOTE | 2024-07-01 12:49 | P.PN ---
Subjective Progress Note Date: 07/01/24 Principal diagnosis: Respiratory failure. Patient is a 73-year-old male with past medical history significant for hypertension, hyperlipidemia, coronary artery disease with previous PCI/stenting, heart failure, chronic kidney disease, diabetes mellitus, chronic right heel wound, ulcerative colitis with previous colectomy and ileostomy. Of note, patient had a recent hospitalization late May and was just discharged 05/31/2024 for CHF exacerbation. Echocardiogram done during this hospitalization estimating a preserved left ventricular ejection fraction of 55 to 60%. Limited study, but no acute valvular abnormalities reported. Presented the emergency department on 06/04/2024 with a chief complaint of shortness of breath, mostly on exertion. Chest x-ray showing cardiomegaly, mild pulmonary vascular congestion, and a small pleural effusion on the left. NT proBNP e levated 2550. Currently receiving Lasix 80 mg twice daily. CBC: WBC count 10.2, hemoglobin 10.4, hematocrit 32.5, platelets 374. CMP: Sodium 135, potassium 4.6, chloride 101, serum bicarb 18, BUN 66, creatinine 2.71, glucose 139. Troponin is less than 0.012. Patient currently being evaluated on the general medical floor. Appears weak and deconditioned. He is resting in bed on 1 L/min nasal cannula. No respiratory distress noted. Complaining of a generalized headache, which he states is chronic. States that he has been short of breath on exertion for several months to almost 1 year. Particularly on exertion such as climbing stairs or walking to the bathroom. Denies history of COPD or asthma. Never tobacco smoker. Worked in an [employer] shop before he retired. Denies cough. Denies infectious-like symptoms. Current vital signs: Temperature 98 F, heart rate 78 bpm, blood pressure 145/54 mmHg, nontachypneic, SpO2 recorded at 91% on 1 L/min nasal cannula. The patient is seen today June 07, 2024 in follow-up on the regular medical floor. He is awake and alert in no acute distress. Sitting up at the bedside. Maintaining O2 saturations in the 90s on 3 L/min per nasal cannula. White count 9.8. Hemoglobin 8.9. Platelets 366. Sodium 140. Potassium 4.7. Bicarb 22. BUN 60. Creatinine 2.4. Glucose 97. He remains on DuoNeb and elations, Pulmicort inhalations. Lasix 80 mg IV every 12 hours. He is currently -1.1 L balance. Antibiotics in the form of cefepime and daptomycin for his diabetic ulcer of the right foot. X-ray revealed no osseous erosion or acute fracture. The patient is seen today June 08, 2024 in follow-up on the regular medical floor. He did have issues with worsening shortness of breath. He is currently on BiPAP 12/6 and 40% FiO2. White count 6.3. Hemoglobin 8.5. Platelets 357. Sodium 136. Potassium 5.8. Bicarb 21. BUN 64. Creatinine 2.4. Glucose 178. Chest x-ray continues to show evidence of congestive heart failure. He is currently on Lasix 80 mg IV every 12 hours. Continued on bronchodilators and steroids. Remains on antibiotics in the form of cefepime and daptomycin. The patient is seen today June 09, 2024 in follow-up on the regular medical floor. He is currently resting comfortably in bed. Awake and alert in no acute distress. Breathing easier today compared to yesterday. He is currently on BiPAP 12/6 and 40% FiO2. White count 10.1. Hemoglobin 8.0. Platelets 339. Sodium 136. Potassium 5.8. Bicarb 21. BUN 94. Creatinine 3.4. Glucose 234. He remains on DuoNeb and elations, Pulmicort inhalations, Solu-Medrol. Remains on IV diuretics. Remains on cefepime and daptomycin. Receiving Lokelma. The patient is seen today June 10, 2024 in follow-up on the regular medical floor. He is currently sitting up at the bedside. Awake and alert in no acute distress. He is requiring BiPAP support at 12/6 and 60% FiO2. Alternating with oxygen at 4 L/min per nasal cannula. He is continued on DuoNeb inhalations, Pulmicort inhalations, Solu-Medrol. He remains on antibiotics in the form of cefepime and daptomycin. Receiving iron supplement. Continued on IV diuretics. Continued on sodium bicarb tablets. White count 12.8. Hemoglobin 7.9. Platelets 335. Sodium 135. Potassium 5.2. Bicarb 23. BUN 118. Creatinine 4.1. Glucose 131. Plan is for placement of a hemodialysis catheter today and to receive hemodialysis today and tomorrow per nephrology Progress note dated 06/11/2024. The patient is seen in room 366. Currently, the patient is on BiPAP, with settings of 12/6, and 100%. The patient is undergoing hemodialysis today. The patient is getting saline at 10 cc an hour. The patient continues on cefepime, and daptomycin. Laboratory data today includes a sodium 137, potassium 4.9, chlorides 97, CO2 22, anion gap 18, BUN 108, and creatinine 4.1. Glucose is 106 . Calcium is 8.7. Chest x-ray from yesterday shows cardiomegaly, and diffuse infiltrates, likely related to underlying fluid overload. Patient was seen today on 06/24/2024, patient remains on 15 L high flow nasal cannula, surprisingly the patient tells me that he is feeling better, patient was started 2 days ago on dialysis/ultrafiltration, seems to be helping the patient significantly. His urine output is very marginal today. Patient remains on broad-spectrum antibiotics, he is being followed by many consultants including nephrology, patient remains on Zosyn and daptomycin. WBC count 17.7 hemoglobin 9.8 electrolytes showed low sodium of 130 potassium 6 BUN is 43 creatinine 2.97. To the right heel area for months now, and has been treated on outpatient setting for culture positive MRSA and positive for Proteus. Patient clearly has diabetic foot infection, and diabetic right foot ulcer. As well as stage III pressure ulcer of the right heel. Patient was seen today on 06/25/2024, patient is about the same, remains on hemodialysis, he is on 12 L high flow nasal cannula down from 15 yesterday. In spite of this the patient does not seem to be in any distress. Remains on broad-spectrum antibiotics, including Zosyn and daptomycin, patient was dialyzed yesterday, I am not certain if he is scheduled to have dialysis today. Continues to have leukocytosis with WBC of 23 hemoglobin 11.2 electrolytes are normal BUN is down to [address] of the chest from last week showed diffuse bilateral groundglass and airspace opacities throughout both lungs. And mild to moderate cardiomegaly. The findings are findings of either pulmonary edema or atypical pneumonia. Patient was seen today on 06/26/2024, patient is receiving hemodialysis today, his FiO2 requirement has gone up, today he is on Airvo at 80%. Patient is feeling better than expected considering his FiO2 requirement, chest x-ray continues show bilateral interstitial infiltrates/edema. WBC count is 11.8 hemoglobin is 10.1 potassium earlier today was 6.6 BUN 72 creatinine 4.3 and that being addressed by nephrology. Blood sugar was as high as 360 now it is 200. Patient was seen today on 06/27/2024, basically he is about the same, intermittently on Airvo and sometimes on BiPAP, still running low O2 saturation, chest x-ray discharge showing worsening interstitial edema, he felt better yesterday after his hemodialysis, today obviously he needs to go back on BiPAP. He was earlier on Airvo with FiO2 of 65% and 40 L flow, patient seemed to do much better when on BiPAP. Chest x-ray again is showing worsening vascular congestion andPulmonary edema, basic metabolic profile is normal bicarb is nor mal BUN is 59 creatinine 3.30. Patient was seen today on 06/28/2024, considering his overall condition, patient was transferred from the medical floor to the ICU mostly because of his complicated issues and could not be handled by nursing staff on the floor. Apparently the patient was having intermittent episodes of desaturations, requiring adjustment in his BiPAP and his Airvo. Finally patient was transferred to ICU, and basically we are maintaining the same treatment plan, hardly any change except while having dialysis today the patient was noted to have soft blood pressure, and I recommended the use of norepinephrine if needed. Otherwise patient is on BiPAP, 14/7/60%. The plan is to remove 3 L with hemodialysis today. Antibiotics ring remains on daptomycin and Zosyn patient remains marginal at best. Patient looks pale however his hemoglobin today is 9.6. The rest of the labs are unremarkable, his bicarb is 24 BUN is 92 creatinine 4.63. Seen today on 06/29/2024, remains in the ICU on BiPAP 14/7/60% he was earlier today on Airvo at 50 L and 70% FiO2. Patient is doing well, he normally does quite well after hemodialysis, he scheduled to have hemodialysis today. Platelets are coming down hence I recommended stopping subcu heparin for now. Patient remains on Zosyn empirically. No major changes noted in the last 24 hours, he is off norepinephrine not requiring any hemodynamic support. WBC count is 11.1 hemoglobin 9.2 electrolytes are normal except for sodium of 129 BU N is 61, creatinine 3.57 chest x-ray continues to show cardiomegaly and pulmonary edema with bilateral pleural effusions Patient was evaluated today on 06/30/2024, remains in the ICU, marginal at best. On BiPAP 14/7 FiO2 60%, and intermittently on Airvo at 50 L or 73% FiO2. O2 saturation is in the low 90s and high 80s most of the time. Patient remains on daptomycin remains on Zosyn, remains intermittently on hemodialysis, his last hemodialysis yesterday and 2 L were removed. Patient had debridement of his foot, and he had MRSA and Proteus in the right heel cultured. Patient has a right subclavian hemodialysis catheter. His oxygen requirement has been relatively high, unable to cut down on his FiO2. Chest x-ray continues show evidence of bilateral interstitial edema. And questionable underlying infiltrates. WBC count is 11 hemoglobin 9.5 sodium 128 potassium 3.8 BUN is 48 creatinine 2.58 Progress note dated July 01, 2024. 73-year-old male who was admitted back on June 04, where shortness of breath, and mental status changes. The patient has been in and out of the intensive care unit, coming back to the ICU, most recently on June 27. Currently, the patient is on Airvo, 60 L/min, with an FiO2 of 70%. He does also use BiPAP from time to time, with settings of 14/7 and 60%. He is getting hemodialysis, Monday, Monday, and Monday. At times, he is a bit confused. Dialysis plans today include removal of 2 L of fluid. The patient continues on daptomycin, Zosyn, and fluconazole. Current labs include a white count 13.3, hemoglobin 9.4, hematocrit 31.2, and a platelet count of 131,000. Sodium 127, potassium 4.2, chloride 92, CO2 23, BUN 90, creatinine 4.14. Glucose is 117. Calcium is 8.2. Chest x-ray shows cardiomegaly, and pulmonary vascular congestion, with pulmonary edema, bilateral pleural effusions. Objective - Vital Signs Vital signs: Vital Signs Temp 97.5 F L 07/01/24 11:42 Pulse 92 07/01/24 12:14 Resp 17 07/01/24 11:42 BP 146/57 07/01/24 11:42 Pulse Ox 90 L 07/01/24 12:03 FiO2 90 07/01/24 12:03 Intake & Output 06/30/24 07/01/24 07/01/24 18:59 06:59 18:59 Intake Total 760 640 500 Output Total 800 048 8324 Balance 210 540 -4500 Weight 96.8 kg 96.8 kg Intake: IV 180 100 .9NS 30 DAPTOmycin 350 mg In 50 Sodium Chloride 0.9% 50 ml @ 100 mls/hr IVPB Q48H JOS[facility] Rx#:[id number] Piperacillin-Tazobactam 3 100 100 .375 gm In Sodium Chloride 0.9% 100 ml @ 25 mls/hr IVPB Q12HR JOS[facility] Rx #:[id number] Intake, IV Titration 100 100 Amount Sodium Ferric Gluconat- 100 100 Sucrose 125 mg In Sodium Chloride 0.9% 100 ml @ 100 mls/hr IVPB DAILY JOS[facility] Rx#:[id number] Oral 480 540 Hemodialysis 400 Output: Urine 150 0 0 Stool 400 100 Hemodialysis 2700 Hemodialysis Net Amount 2300 Other: Voiding Method Urinal Urinal - Exam No acute distress, currently on Airvo. HEENT examination is grossly unremarkable. Mucous membranes are moist. No oral lesions. Neck supple. Full range of motion. No adenopathy thyromegaly or neck vein distention. Cardiovascular examination reveals regular rhythm rate. S1-S2 normal. No S3 or S4. No discernible murmur noted. Heart sounds are distant. Lungs reveal scattered bilateral rhonchi. Some basilar crackles are noted. No wheezes. Breath sounds are equal bilaterally. Abdomen soft bowel sounds are heard. No masses or tenderness. Extremities are intact. No cyanosis clubbing or edema. Right foot is wrapped. Skin is without rash or lesion. Neurologic examination is brief but nonfocal. - Labs CBC & Chem 7: 07/01/24 07:09 07/01/24 07:09 Labs: Abnormal Lab Results - Last 24 Hours (Table) 06/30/24 06/30/24 07/01/24 Range/Units 16:39 20:30 06:31 WBC (3.8-10.6) k/uL RBC (4.30-5.90) m/uL Hgb (13.0-17.5) gm/dL Hct (39.0-53.0) % MCV (80.0-100.0) fL MCHC (31.0-37.0) g/dL RDW (11.5-15.5) % Plt Count (150-450) k/uL Neutrophils # (1.3-7.7) k/uL Lymphocytes # (1.0-4.8) k/uL Sodium (137-145) mmol/L Chloride (98-107) mmol/L BUN (9-20) mg/dL Creatinine (0.66-1.25) mg/dL Glucose (74-99) mg/dL POC Glucose (mg/dL) 180 H 223 H 123 H (70-110) mg/dL Calcium (8.4-10.2) mg/dL 07/01/24 07/01/24 07/01/24 Range/Units 07:09 07:09 10:58 WBC 13.3 H (3.8-10.6) k/uL RBC 3.08 L (4.30-5.90) m/uL Hgb 9.4 L (13.0-17.5) gm/dL Hct 31.2 L (39.0-53.0) % MCV 101.2 H (80.0-100.0) fL MCHC 30.0 L (31.0-37.0) g/dL RDW 17.0 H (11.5-15.5) % Plt Count 131 L (150-450) k/uL Neutrophils # 12.6 H (1.3-7.7) k/uL Lymphocytes # 0.2 L (1.0-4.8) k/uL Sodium 127 L (137-145) mmol/L Chloride 92 L (98-107) mmol/L BUN 90 H (9-20) mg/dL Creatinine 4.14 H (0.66-1.25) mg/dL Glucose 104 H (74-99) mg/dL POC Glucose (mg/dL) 117 H (70-110) mg/dL Calcium 8.2 L (8.4-10.2) mg/dL Assessment and Plan Assessment: Acute exacerbation of diastolic congestive heart failure. Acute hypoxemic respiratory failure, secondary to above. Acute on chronic shortness of breath. Acute on chronic kidney disease now requiring renal replacement therapy to start today June 10, 2024. Hyperkalemia secondary to above. Acute on chronic anemia secondary to above. History of CAD with previous PCI. Diabetes mellitus with hyperglycemia. Hypertension. History of hyperlipidemia. Chronic cephalgia. History of UC with previous colectomy and ileostomy. History of prostate cancer status post chemoradiation. Chronic right heel wound, status post debridement on 05/28/2024. Obesity, with a BMI of 38.8 kg/m . Plan: Plan dated June 11, 2024. The patient is seen today in room 366. He continues on BiPAP, with settings of 12/6, and 100%. We are hoping that after hemodialysis today, the FiO2 can be reduced. The patient is receiving saline at 10 cc an hour. In addition, the patient continues on cefepime, and daptomycin. Currently, cultures are negative. All labs, x-rays, and medications are reviewed. 50 minutes was spent with this patient, including time spent interviewing the patient, and examining him, reviewing pertinent labs, x-rays, and medications, as well as discussing the diagnosis, treatment, and prognosis, with the patient, and the patient's family, as well as the bedside nurse. Plan dated July 01, 2024. The patient is seen today again in room 254. I saw him last back on June 11. The patient is currently on Airvo, 60 L/min, with an FiO2 of 70%. He does occasionally use BiPAP, with settings of 14/7, 60%. The patient was initially admitted back on June 04. He came back to the intensive care unit, on June 27. He continues on daptomycin, Zosyn, and fluconazole. The patient has hemodialysis, Monday, Monday, and Monday. The goal for hemodialysis today is to remove 2 L of fluid. The patient remains a full code. Additional r ecommendations and suggestions are forthcoming. The patient's overall prognosis remains poor, and over the course of this entire hospital stay for 27 days, he has made very little progress. We will continue to follow and make recommendations along the way. All labs, x-rays, and medications are reviewed. Prognosis is guarded. Dictation was produced using [employer] software. Please excuse any grammatical, word or spelling errors. Time with Patient: Greater than 30
--- NOTE | 2024-07-01 14:43 | P.PN ---
Subjective Interval History: Pleasant 73-year-old patient follows with Dr. Dennis. 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 Bales. April 26, [address] Bales: Following a non-ST relation ID: Patent stent to mid LAD. Late stent thrombosis of the second diagonal branch of the LAD. Severe disease involving the OM1 appears unchanged. Attempted balloon angioplasty performed to the second of diagonal branch with suboptimal results. Dose of Imdur was increased and Ranexa was added. Patient recently in the hospital from May 28 through May 31. Chronic headaches: MRI unremarkable. MR angio head and neck: MR angio head without contrast: No evidence of aneurysm or significant stenosis. Atrophic right A1 segment. origin of the right posterior cerebral artery.MRI of the brain nonspecific. Was seen by neurology Dr. Gay. Patient to follow-up outpatient Chronic right heel wound seen by Dr. Carpenter from vascular deep debridement was carried out. No need for antibiotics. Patient to follow-up with Dr. Jernigan at the wound center. Shortness of breath: Was seen by cardiology. Not for any further intervention. Patient doing well when discharged. Patient presented increased shortness of breath when at home. His pulse ox dropped out of the 80s. Increasing shortness of breath. Decreased appetite. No fever or chills. June 10: Using his BiPAP. Patient seen this morning. Later this afternoon. Right femoral vein dialysis catheter was placed by Dr. Carpenter from vascular for dialysis. Baseline some shortness of breath. Due for first dialysis today. Patient is right heel culture grew MRSA Proteus P Corynebacterium on May 29. Patient is on IV daptomycin and IV cefepime per ID. June 11: Patient seen this afternoon. On BiPAP. Getting hemodialysis. Remains on IV daptomycin IV Zosyn. Tired. Also getting IV iron. Patient really did not eat today. Because of BiPAP. Cut back Levemir to 26 units at night. DC scheduled NovoLog for now. June 12: Overflowing the ICU. Remains on BiPAP. 04/05/%. at the bedside. Remains on IV daptomycin and IV Zosyn. For dialysis today. X-ray continues shows infiltrates. Significantly hypoxic. N.p.o. June 13: ICU. Remains on BiPAP. 04/05/90% moderate take anything by mouth. Spoke to the nurse have TPN lipids ordered. Remains on IV daptomycin IV Zosyn. Chest x-ray continues to show diffuse infiltrates. Continues to be followed by cardiology pulmonary ID nephrology. June 14: ICU. Later this afternoon patient was put on Airvo. 60/60. Has some delirium. Remains on IV daptomycin and IV Zosyn. Had 2 L ultrafiltration yesterday. Patient getting daily dialysis for now. As patient is oliguric per nephrology Lasix has been held. TPN was ordered yesterday per the nurse culture that returned to feed the patient. Will see how that goes. Dietitian on the case. June 15: ICU. Patient be getting hypotensive. Some medications held back by cardiology. Hemodialysis done today. Patient remains on Airvo though at 50/50. at the bedside. Plans this afternoon to get him up in the chair. Remains on daptomycin and IV Zosyn. IV Lasix been discontinued. Patient tolerating some liquid diet. June 16: Patient moved to the ICU. Remains on Airvo. 45/45. at the bedside. Tolerating full liquids. Spoke to the about the morphine. His headaches are chronic. Use Fioricet as needed. Remains on IV daptomycin and IV Zosyn. IV Solu-Medrol. Amlodipine dose cut back. PT OT. June 17: On 3 S., telemetry floor. Getting hemodialysis today. Remains on IV daptomycin IV Zosyn. On full liquid diet. Advance to ground diet. Minimal urine output. DC fluid restriction. Awake communicating. Accu-Cheks running high. Increase Levemir to 28 units subcu twice daily. Seen by PT OT. Maximum assist. On Airvo 40/40. Cut back Solu-Medrol to every 12. June 18: On a recliner. 7 L nasal cannula. Decreased appetite. at the bedside. Accu-Chek in 200s. IJ PermCath placement pending. Encourage oral intake. Ordered incentive spirometry June 19: Patient was on 7 L nasal cannula yesterday. Patient back on Airvo today. 40 L. Due for hemodialysis today. Had perm dialysis catheter placed right IJ by Dr. Jayden today. Minimal intake today. Discussed with at the bedside. June 20: Recliner. High flow 15 L nasal cannula. at the bedside. Decreased oral intake.Tired. Hemodialysis today. June 21: Still decreased appetite. Remains on high flow 15 l nasal cannula. Remains on IV daptomycin IV Zosyn per ID. Being followed by multiple consultants spoke to the patient and . Encourage oral intake. June 22: Remains on 15 L high flow nasal cannula. at the bedside. Diet. Remains on IV daptomycin IV Zosyn. Decreased appetite. Will try ground diet. June 23: Monday to the bed. Ate a bit better according to the . Remains on 15 L nasal cannula. Oral candidiasis. Diflucan 200 mg x 1 today. Then 100 mg 3 times a week after each dialysis. Remains on daptomycin IV Zosyn per ID. Discussed with patient 06/24 I am resuming the care of the patient today He is sitting at the edge of the bed feels comfortable. Still requiring 15 units of oxygen, he states that he feels better than yesterday after he was started on IV Solu-Medrol 40 mg twice daily. At home he was not on oxygen Also he is on daptomycin and Diflucan. He is also on antibiotic for his right foot ulcer with dressing in place. No pain 06/25 Patient feels the same Oxygen requirements down from 15 down to 12 L/min His labs showing more hemoconcentration with leukocytosis 23K, hemoglobin 12.2 and platelet 128 all went up little bit. Creatinine 2.5. Sodium improved 132 He remains on Zosyn daptomycin and fluconazole and IV Solu-Medrol 40 mg twice daily 06/26 Patient is breathing quietly while he is sitting in bed. He is getting 11 L via nasal cannula in the morning, however later on it looks like his oxygen supply was increased. Patient denies any other new symptoms His sodium today was 129 and potassium elevated 6.6 and creatinine 4.3. Patient getting dialysis for hyperkalemia protocol. WBC went down to 11.8. Hemoglobin stable at 10.1. Platelet count 122. Remains on triple antibiotics with Diflucan, daptomycin and Zosyn. Also is on IV Solu-Medrol 40 mg twice daily. No more panic attack. Yesterday after rounding he developed panic attacks and improved with Xanax 06/27 Patient required more oxygen starting yesterday and today his saturation well on higher dose of oxygen 40 L/min with FiO2 of 66% Chest x-ray showing cardiomegaly, pulmonary vascular congestion and pleural effusion Currently patient torsemide 40 mg daily Also is getting hemodialysis yesterday and there is another dialysis going on for tomorrow Also he remains on IV Solu-Medrol 40 mg and broad-spectrum antibiotics as above 06/28 Since yesterday patient oxygen requirement started worsening significantly he was placed on high flow nasal cannula at 40 L with FiO2 of 60 to 66%. By the evening patient required to be placed on BiPAP and he was sent to the ICU. Repeat chest x-ray showing cardiomegaly with pulmonary vascular congestion. Echocardiogram from 05/29/2024 showing ejection fraction of 55 to 60%. Patient also undergoing hemodialysis. Creatinine increased today to 4.63. Remains on torsemide, IV Solu-Medrol antibiotics with Zosyn daptomycin and fluconazole 06/29--- patient was seen and examined today. Continues to require on and off BiPAP, currently on heated high flow oxygen, undergoing hemodialysis. Remains on daptomycin and Zosyn. Pulmonary, ID, nephrology following. On Diflucan. Patient is afebrile, heart rate 78, respiratory rate 17, blood pressure 130/61,'s on 50 L heated high flow oxygen. WBC 11.1, hemoglobin 9.2, platelet 97. Sodium 129 potassium 4.0 BUN 61 creatinine 3.57. 06/30--patient was seen and examined today. Afebrile, heart rate 80, respiratory rate 19, blood pressure 121/58, saturating 94% on 50 L heated high flow. WBCs 11.0, hemoglobin 9.5, platelet 113. Sodium 128 potassium 3.8, chloride 90, CO2 26, BUN 48, creatinine 2.58. Patient reported urine output today. Infectious disease following, currently on Zosyn and daptomycin. ICU following. Nephrology following, plan for hemodialysis tomorrow, challenge ultr afiltration. Currently on torsemide. Received IV iron. 07/01--- patient was seen and examined today. Remained afebrile, heart rate 88, respiratory rate 20, blood pressure 126/61, saturating 94%, on 60 L heated high flow. WBCs 13.3, hemoglobin 9.4, platelet 131. Sodium 127 potassium 4.2 chloride 92 CO2 23 BUN 90 creatinine 4.14 patient underwent hemodialysis today, nephrology following plan for daily hemodialysis for fluid overload. ICU following. Currently on Diflucan, daptomycin and Zosyn. Infectious disease consulted and following. Assessment and plan: Acute hypoxic respiratory failure: Bilateral pneumonia: Acute diastolic CHF: Acute COPD exacerbation: Right foot diabetic ulcer: MRSA culture positive: ROSELYN on CKD: Now requiring dialysis, right IJ permacath placed to 1025 Hyperkalemia: Resolved Oral candidiasis: Acute on chronic anemia: Anemia of chronic disease History of CAD with previous PCI Diabetes mellitus Hypertension Hyperlipidemia Chronic cephalgia Chronic ostomy History of prostate cancer status post chemo/radiation Chronic right heel wound status post debridement Obesity: Plan: Requires BiPAP, continue inhalers, bronchodilators, Solu-Medrol, pulmonary consulted Nephrology consulted, on hemodialysis, torsemide. Antibiotics: Daptomycin and Zosyn, status post debridement twice 06/07, 06/14 during hospitalization, infectious disease on board Diflucan Accu-Cheks, diabetic diet, Lantus, Humalog. Continue home meds including aspirin, Plavix, Norvasc, metoprolol, Imdur, Ranexa, Flomax. DVT prophylaxis: Monitor vital signs and labs Labs and medication were reviewed. Continue same treatment. Further recommendations as per clinical course of the patient PHYSICAL EXAMINATION: GENERAL: The patient is A&O x3, NAD HEENT: EOMI, Sclerae anicteric, Moist Mucous membranes Neck: Supple, Non tender, No JVD PULMONARY: Dec breath souds B/L, No wheezing, + crackles. CARDIOVASCULAR: S1, S2 present. No murmurs, rubs, or gallops. ABDOMEN: Soft, nontender, nondistended, normoactive bowel sounds. No guarding or rebound tenderness. MUSCULOSKELETAL: + edema, No cyanosis. No clubbing. Normal ROM. Intact peripheral pulses. NEUROLOGICAL: CN 2-12 grossly intact. No FND Skin: No Rash REVIEW OF SYSTEMS: CONSTITUTIONAL: No fever or chills. CARDIOVASCULAR: No chest pain, palpitations or syncope. PULMONARY: No shortness of breath, no cough, sore throat. GASTROINTESTINAL: No nausea, vomiting, diarrhea, abdominal pain. : No Dysuria, urgency, frequency. Extremities: No edema. NEUROLOGICAL: No headaches, no weakness, or numbness Dictation was produced using dragon dictation software. please excuse any grammatical, word or spelling errors. Objective - Vital Signs Vital signs: Vital Signs Temp 97.5 F L 07/01/24 11:42 Pulse 88 07/01/24 13:00 Resp 20 07/01/24 13:00 BP 126/61 07/01/24 13:00 Pulse Ox 94 L 07/01/24 13:00 FiO2 85 07/01/24 12:30 Intake & Output 06/30/24 07/01/24 07/01/24 18:59 06:59 18:59 Intake Total 760 640 500 Output Total 185 868 8597 Balance 210 540 -4500 Weight 96.8 kg 96.8 kg Intake: IV 180 100 .9NS 30 DAPTOmycin 350 mg In 50 Sodium Chloride 0.9% 50 ml @ 100 mls/hr IVPB Q48H [facility] Rx#:[id number] Piperacillin-Tazobactam 3 100 100 .375 gm In Sodium Chloride 0.9% 100 ml @ 25 mls/hr IVPB Q12HR [facility] Rx #:[id number] Intake, IV Titration 100 100 Amount Sodium Ferric Gluconat- 100 100 Sucrose 125 mg In Sodium Chloride 0.9% 100 ml @ 100 mls/hr IVPB DAILY [facility] Rx#:[id number] Oral 480 540 Hemodialysis 400 Output: Urine 150 0 0 Stool 400 100 Hemodialysis 2700 Hemodialysis Net Amount 2300 Other: Voiding Method Urinal Urinal - Labs CBC & Chem 7: 07/01/24 07:09 07/01/24 07:09 Labs: Abnormal Lab Results - Last 24 Hours (Table) 06/30/24 06/30/24 07/01/24 Range/Units 16:39 20:30 06:31 WBC (3.8-10.6) k/uL RBC (4.30-5.90) m/uL Hgb (13.0-17.5) gm/dL Hct (39.0-53.0) % MCV (80.0-100.0) fL MCHC (31.0-37.0) g/dL RDW (11.5-15.5) % Plt Count (150-450) k/uL Neutrophils # (1.3-7.7) k/uL Lymphocytes # (1.0-4.8) k/uL Sodium (137-145) mmol/L Chloride (98-107) mmol/L BUN (9-20) mg/dL Creatinine (0.66-1.25) mg/dL Glucose (74-99) mg/dL POC Glucose (mg/dL) 180 H 223 H 123 H (70-110) mg/dL Calcium (8.4-10.2) mg/dL 07/01/24 07/01/24 07/01/24 Range/Units 07:09 07:09 10:58 WBC 13.3 H (3.8-10.6) k/uL RBC 3.08 L (4.30-5.90) m/uL Hgb 9.4 L (13.0-17.5) gm/dL Hct 31.2 L (39.0-53.0) % MCV 101.2 H (80.0-100.0) fL MCHC 30.0 L (31.0-37.0) g/dL RDW 17.0 H (11.5-15.5) % Plt Count 131 L (150-450) k/uL Neutrophils # 12.6 H (1.3-7.7) k/uL Lymphocytes # 0.2 L (1.0-4.8) k/uL Sodium 127 L (137-145) mmol/L Chloride 92 L (98-107) mmol/L BUN 90 H (9-20) mg/dL Creatinine 4.14 H (0.66-1.25) mg/dL Glucose 104 H (74-99) mg/dL POC Glucose (mg/dL) 117 H (70-110) mg/dL Calcium 8.2 L (8.4-10.2) mg/dL
[2024-07-01 15:12] LABS: Glucose,Whole Blood 175 mg/dL (70-110)
[2024-07-01 20:28] LABS: Glucose,Whole Blood 88 mg/dL (70-110)
--- NOTE | 2024-07-01 21:24 | P.PN ---
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 On today's evaluation that is 07/01/2024, patient has been afebrile, patient is breathing slightly comfortably however still requiring high flow nasal oxygen, patient denies having any significant cough no chest pain, patient denies nausea vomiting or diarrhea and no abdominal pain or pain to the right heel. Patient did have white count of 13.2, creatinine is 4.14 blood culture has been negative Objective - Vital Signs Vital signs: Vital Signs Temp 97.5 F L 07/01/24 11:42 Pulse 92 07/01/24 12:14 Resp 17 07/01/24 11:42 BP 146/57 07/01/24 11:42 Pulse Ox 90 L 07/01/24 12:03 FiO2 90 07/01/24 12:03 Intake & Output 06/30/24 07/01/24 07/01/24 18:59 06:59 18:59 Intake Total 760 640 500 Output Total 482 865 9230 Balance 210 540 -4500 Weight 96.8 kg 96.8 kg Intake: IV 180 100 .9NS 30 DAPTOmycin 350 mg In 50 Sodium Chloride 0.9% 50 ml @ 100 mls/hr IVPB Q48H [facility] Rx#:[id number] Piperacillin-Tazobactam 3 100 100 .375 gm In Sodium Chloride 0.9% 100 ml @ 25 mls/hr IVPB Q12HR [facility] Rx #:[id number] Intake, IV Titration 100 100 Amount Sodium Ferric Gluconat- 100 100 Sucrose 125 mg In Sodium Chloride 0.9% 100 ml @ 100 mls/hr IVPB DAILY [facility] Rx#:[id number] Oral 480 540 Hemodialysis 400 Output: Urine 150 0 0 Stool 400 100 Hemodialysis 2700 Hemodialysis Net Amount 2300 Other: Voiding Method Urinal Urinal - Exam GENERAL DESCRIPTION: An elderly male lying in bed in no distress RESPIRATORY SYSTEM: Unlabored breathing , decreased breath sounds at bases HEART: S1 S2 regular rate and rhythm , ABDOMEN: Soft , no tenderness EXTREMITIES: Right hand wound is currently dressed - Labs CBC & Chem 7: 07/01/24 07:09 07/01/24 07:09 Labs: Abnormal Lab Results - Last 24 Hours (Table) 06/30/24 06/30/24 07/01/24 Range/Units 16:39 20:30 06:31 WBC (3.8-10.6) k/uL RBC (4.30-5.90) m/uL Hgb (13.0-17.5) gm/dL Hct (39.0-53.0) % MCV (80.0-100.0) fL MCHC (31.0-37.0) g/dL RDW (11.5-15.5) % Plt Count (150-450) k/uL Neutrophils # (1.3-7.7) k/uL Lymphocytes # (1.0-4.8) k/uL Sodium (137-145) mmol/L Chloride (98-107) mmol/L BUN (9-20) mg/dL Creatinine (0.66-1.25) mg/dL Glucose (74-99) mg/dL POC Glucose (mg/dL) 180 H 223 H 123 H (70-110) mg/dL Calcium (8.4-10.2) mg/dL 07/01/24 07/01/24 07/01/24 Range/Units 07:09 07:09 10:58 WBC 13.3 H (3.8-10.6) k/uL RBC 3.08 L (4.30-5.90) m/uL Hgb 9.4 L (13.0-17.5) gm/dL Hct 31.2 L (39.0-53.0) % MCV 101.2 H (80.0-100.0) fL MCHC 30.0 L (31.0-37.0) g/dL RDW 17.0 H (11.5-15.5) % Plt Count 131 L (150-450) k/uL Neutrophils # 12.6 H (1.3-7.7) k/uL Lymphocytes # 0.2 L (1.0-4.8) k/uL Sodium 127 L (137-145) mmol/L Chloride 92 L (98-107) mmol/L BUN 90 H (9-20) mg/dL Creatinine 4.14 H (0.66-1.25) mg/dL Glucose 104 H (74-99) mg/dL POC Glucose (mg/dL) 117 H (70-110) mg/dL Calcium 8.2 L (8.4-10.2) mg/dL Assessment and Plan (1) Diabetic infection of right foot Current Visit: Yes Status: Acute Code(s): E11.628 - TYPE 2 DIABETES MELLITUS WITH OTHER SKIN COMPLICATIONS; L08.9 - LOCAL INFECTION OF THE SKIN AND SUBCUTANEOUS TISSUE, UNSP SNOMED Code(s): 267602446 (2) MRSA (methicillin resistant staph aureus) culture positive Current Visit: Yes Status: Acute Code(s): Z22.322 - CARRIER OR SUSPECTED CARRIER OF METHICILLIN RESIS STAPH SNOMED Code(s): 493766408 (3) Diabetic ulcer of right foot Current Visit: No Status: Acute Code(s): E11.621 - TYPE 2 DIABETES MELLITUS WITH FOOT ULCER; L97.519 - NON-PRS CHRONIC ULCER OTH PRT RIGHT FOOT W UNSP SEVERITY SNOMED Code(s): 992843901 (4) Stage III pressure ulcer of right heel Current Visit: No Status: Acute Code(s): L89.613 - PRESSURE ULCER OF RIGHT HEEL, STAGE 3 SNOMED Code(s): 70579748801167 Plan: 1patient with a chronic nonhealing wound to the right heel which he has for couple of months the wound looks deep with a recent culture positive for Proteus and MRSA concerning for wound infection and question for possible deeper infection such as osteomyelitis as wound has been there for couple of months now 2- x-rays of the right heel with no evidence of any bony changes 3-patient has been evaluated by Dr. Carpenter and did have surgical debridement completed on 06/07/2024 and did have a further debridement at the bedside by his crusher operator on 06/14/2024 4-patient leukocytosis more likely steroid related as no evidence of any worsening infection and the patient white count mildly elevated 5patient care discussed with the vascular surgeon need for possible debridement of his right heel wound for now to continue with Zosyn and daptomycin for his right heel infected ulcer and monitor clinical course closely Dictation was produced using [employer] software. please excuse any grammatical, word or spelling errors. Time with Patient: Less than 30
[2024-07-02 06:30] LABS: Anisocytosis Slight; Basophils % (A) 0 %; Eosinophils % (A) 0 %; HCT 32.9 % (39.0-53.0); Hypochromasia Slight; Lymphocytes # (A) 0.2 k/uL (1.0-4.8); Lymphocytes % (A) 2 %; MCH 30.5 pg (25.0-35.0); MCHC 30.3 g/dL (31.0-37.0); MCV 100.9 fL (80.0-100.0); Macrocytosis Moderate; Mean Platelet Volume 9.5; Monocytes # (A) 0.3 k/uL (0-1.0); Monocytes % (A) 3 %; Neutrophils # (A) 7.8 k/uL (1.3-7.7); Neutrophils % (A) 94 %; Platelet Count 141 k/uL (150-450); RBC 3.26 m/uL (4.30-5.90); RDW 17.7 % (11.5-15.5); WBC 8.4 k/uL (3.8-10.6)
[2024-07-02 06:30] LABS: Glucose,Whole Blood 132 mg/dL (70-110)
[2024-07-02 06:39] LABS: African American GFR (CKD) 21 (>60 ml/min/1.73 sqM); Anion Gap 11 mmol/L; Blood Urea Nitrogen 66 mg/dL (9-20); Calcium 8.6 mg/dL (8.4-10.2); Carbon Dioxide 25 mmol/L (22-30); Chloride 95 mmol/L (98-107); Glucose 78 mg/dL (74-99); Non-African American GFR(CKD) 18 (>60 ml/min/1.73 sqM); Potassium 4.9 mmol/L (3.5-5.1); Sodium 131 mmol/L (137-145)
--- NOTE | 2024-07-02 08:05 | XR ---
EXAMINATION TYPE: XR chest 1V portable DATE OF EXAM: 07/02/2024 5:35 AM COMPARISON: Multiple radiographs, with the most recent on 07/01/2024 TECHNIQUE: XR chest 1V portable Portable AP radiograph of the chest. CLINICAL INDICATION:Male, 73 years old with history of follow up multifocal infiltrates; FINDINGS: Lungs/Pleura: Low lung volumes. Blunting of both costophrenic angles. Similar diffuse interstitial pr ominence and patchy opacities. No pneumothorax. Heart/mediastinum: Cardiomediastinal silhouette is enlarged and stable. Musculoskeletal: No acute osseous pathology. Other findings: None Lines/Tubes: Right IJ approach dual-lumen hemodialysis catheter with distal tip terminating in the right atrium. IMPRESSION: Similar cardiomegaly, pulmonary edema and bilateral pleural effusions. Low lung volumes. [facility] Daja Scott, , 07/02/2024 8:03 AM
[2024-07-02 08:51] LABS: Glucose,Whole Blood 140 mg/dL (70-110)
--- NOTE | 2024-07-02 10:04 | P.PN ---
Subjective Patient is seen for follow-up for chronic kidney disease and acute kidney injury. Started hemodialysis on 06/10/2024. Patient has been dialyzed almost on a daily basis due to volume overload and hypoxic respiratory failure. Patient is seen in the ICU. Oxygen requirements remain high. Currently on high flow Airvo with FiO2 at 65 to 70% Seen on hemodialysis. Tolerating treatment well. Goal UF about 3 L today Objective - Vital Signs Vital signs: Vital Signs Temp 97.1 F L 07/02/24 04:00 Pulse 90 07/02/24 08:58 Resp 18 07/02/24 08:58 BP 100/59 07/02/24 07:00 Pulse Ox 97 07/02/24 08:47 FiO2 65 07/02/24 09:10 Intake & Output 07/01/24 07/02/24 07/02/24 18:59 06:59 18:59 Intake Total 500 100 Output Total 5000 0 Balance -4500 100 Weight 96.8 kg 96.6 kg Intake: Intake, IV Titration 100 100 Amount Piperacillin-Tazobactam 3 100 .375 gm In Sodium Chloride 0.9% 100 ml @ 25 mls/hr IVPB Q12HR [facility] Rx #:[id number] Sodium Ferric Gluconat- 100 Sucrose 125 mg In Sodium Chloride 0.9% 100 ml @ 100 mls/hr IVPB DAILY [facility] Rx#:[id number] Hemodialysis 400 Output: Urine 0 0 Hemodialysis 2700 Hemodialysis Net Amount 2300 - Exam Patient is awake, comfortable, no acute distress Examination of the heart S1 and S2 Examination of the lungs bilateral breath sounds are heard Abdomen is soft nontender Examination of lower extremities shows trace edema 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 - Labs CBC & Chem 7: 07/02/24 05:59 07/02/24 06:10 Labs: Abnormal Lab Results - Last 24 Hours (Table) 07/01/24 07/01/24 07/02/24 Range/Units 10:58 15:11 05:59 RBC 3.26 L (4.30-5.90) m/uL Hgb 10.0 L (13.0-17.5) gm/dL Hct 32.9 L (39.0-53.0) % MCV 100.9 H (80.0-100.0) fL MCHC 30.3 L (31.0-37.0) g/dL RDW 17.7 H (11.5-15.5) % Plt Count 141 L (150-450) k/uL Neutrophils # 7.8 H (1.3-7.7) k/uL Lymphocytes # 0.2 L (1.0-4.8) k/uL Sodium (137-145) mmol/L Chloride (98-107) mmol/L BUN (9-20) mg/dL Creatinine (0.66-1.25) mg/dL POC Glucose (mg/dL) 117 H 175 H (70-110) mg/dL 07/02/24 07/02/24 07/02/24 Range/Units 06:10 06:29 08:50 RBC (4.30-5.90) m/uL Hgb (13.0-17.5) gm/dL Hct (39.0-53.0) % MCV (80.0-100.0) fL MCHC (31.0-37.0) g/dL RDW (11.5-15.5) % Plt Count (150-450) k/uL Neutrophils # (1.3-7.7) k/uL Lymphocytes # (1.0-4.8) k/uL Sodium 131 L (137-145) mmol/L Chloride 95 L (98-107) mmol/L BUN 66 H (9-20) mg/dL Creatinine 3.19 H (0.66-1.25) mg/dL POC Glucose (mg/dL) 132 H 140 H (70-110) mg/dL Assessment and Plan Assessment: 1. Acute kidney injury, nonoliguric, cardiorenal. UA is benign and ultrasound does not show any evidence of hydronephrosis. Started hemodialysis on 06/10/2024 for significant oliguric acute kidney injury. 2. Acute on chronic diastolic CHF 3. Volume overload, maintained on daily hemodialysis/UF treatments 4. Hypertension with CKD stage IV 5. Acute hypoxic respiratory failure secondary to CHF 6. Coronary artery disease with history of coronary stents 7. Metabolic acidosis maintained on oral sodium bicarb and improved with dialysis 8. Right heel wound status post debridement Plan: We will continue with daily dialysis/ultrafiltration for fluid overload. Encouraged increased oral intake.
[2024-07-02 11:29] LABS: Glucose,Whole Blood 224 mg/dL (70-110)
--- NOTE | 2024-07-02 11:34 | P.PN ---
Subjective Progress Note Date: 07/02/24 Principal diagnosis: Respiratory failure. Patient is a 73-year-old male with past medical history significant for hypertension, hyperlipidemia, coronary artery disease with previous PCI/stenting, heart failure, chronic kidney disease, diabetes mellitus, chronic right heel wound, ulcerative colitis with previous colectomy and ileostomy. Of note, patient had a recent hospitalization late May and was just discharged 05/31/2024 for CHF exacerbation. Echocardiogram done during this hospitalization estimating a preserved left ventricular ejection fraction of 55 to 60%. Limited study, but no acute valvular abnormalities reported. Presented the emergency department on 06/04/2024 with a chief complaint of shortness of breath, mostly on exertion. Chest x-ray showing cardiomegaly, mild pulmonary vascular congestion, and a small pleural effusion on the left. NT proBNP e levated 2550. Currently receiving Lasix 80 mg twice daily. CBC: WBC count 10.2, hemoglobin 10.4, hematocrit 32.5, platelets 374. CMP: Sodium 135, potassium 4.6, chloride 101, serum bicarb 18, BUN 66, creatinine 2.71, glucose 139. Troponin is less than 0.012. Patient currently being evaluated on the general medical floor. Appears weak and deconditioned. He is resting in bed on 1 L/min nasal cannula. No respiratory distress noted. Complaining of a generalized headache, which he states is chronic. States that he has been short of breath on exertion for several months to almost 1 year. Particularly on exertion such as climbing stairs or walking to the bathroom. Denies history of COPD or asthma. Never tobacco smoker. Worked in an [employer] shop before he retired. Denies cough. Denies infectious-like symptoms. Current vital signs: Temperature 98 F, heart rate 78 bpm, blood pressure 145/54 mmHg, nontachypneic, SpO2 recorded at 91% on 1 L/min nasal cannula. The patient is seen today June 07, 2024 in follow-up on the regular medical floor. He is awake and alert in no acute distress. Sitting up at the bedside. Maintaining O2 saturations in the 90s on 3 L/min per nasal cannula. White count 9.8. Hemoglobin 8.9. Platelets 366. Sodium 140. Potassium 4.7. Bicarb 22. BUN 60. Creatinine 2.4. Glucose 97. He remains on DuoNeb and elations, Pulmicort inhalations. Lasix 80 mg IV every 12 hours. He is currently -1.1 L balance. Antibiotics in the form of cefepime and daptomycin for his diabetic ulcer of the right foot. X-ray revealed no osseous erosion or acute fracture. The patient is seen today June 08, 2024 in follow-up on the regular medical floor. He did have issues with worsening shortness of breath. He is currently on BiPAP 12/6 and 40% FiO2. White count 6.3. Hemoglobin 8.5. Platelets 357. Sodium 136. Potassium 5.8. Bicarb 21. BUN 64. Creatinine 2.4. Glucose 178. Chest x-ray continues to show evidence of congestive heart failure. He is currently on Lasix 80 mg IV every 12 hours. Continued on bronchodilators and steroids. Remains on antibiotics in the form of cefepime and daptomycin. The patient is seen today June 09, 2024 in follow-up on the regular medical floor. He is currently resting comfortably in bed. Awake and alert in no acute distress. Breathing easier today compared to yesterday. He is currently on BiPAP 12/6 and 40% FiO2. White count 10.1. Hemoglobin 8.0. Platelets 339. Sodium 136. Potassium 5.8. Bicarb 21. BUN 94. Creatinine 3.4. Glucose 234. He remains on DuoNeb and elations, Pulmicort inhalations, Solu-Medrol. Remains on IV diuretics. Remains on cefepime and daptomycin. Receiving Lokelma. The patient is seen today June 10, 2024 in follow-up on the regular medical floor. He is currently sitting up at the bedside. Awake and alert in no acute distress. He is requiring BiPAP support at 12/6 and 60% FiO2. Alternating with oxygen at 4 L/min per nasal cannula. He is continued on DuoNeb inhalations, Pulmicort inhalations, Solu-Medrol. He remains on antibiotics in the form of cefepime and daptomycin. Receiving iron supplement. Continued on IV diuretics. Continued on sodium bicarb tablets. White count 12.8. Hemoglobin 7.9. Platelets 335. Sodium 135. Potassium 5.2. Bicarb 23. BUN 118. Creatinine 4.1. Glucose 131. Plan is for placement of a hemodialysis catheter today and to receive hemodialysis today and tomorrow per nephrology Progress note dated 06/11/2024. The patient is seen in room 366. Currently, the patient is on BiPAP, with settings of 12/6, and 100%. The patient is undergoing hemodialysis today. The patient is getting saline at 10 cc an hour. The patient continues on cefepime, and daptomycin. Laboratory data today includes a sodium 137, potassium 4.9, chlorides 97, CO2 22, anion gap 18, BUN 108, and creatinine 4.1. Glucose is 106 . Calcium is 8.7. Chest x-ray from yesterday shows cardiomegaly, and diffuse infiltrates, likely related to underlying fluid overload. Patient was seen today on 06/24/2024, patient remains on 15 L high flow nasal cannula, surprisingly the patient tells me that he is feeling better, patient was started 2 days ago on dialysis/ultrafiltration, seems to be helping the patient significantly. His urine output is very marginal today. Patient remains on broad-spectrum antibiotics, he is being followed by many consultants including nephrology, patient remains on Zosyn and daptomycin. WBC count 17.7 hemoglobin 9.8 electrolytes showed low sodium of 130 potassium 6 BUN is 43 creatinine 2.97. To the right heel area for months now, and has been treated on outpatient setting for culture positive MRSA and positive for Proteus. Patient clearly has diabetic foot infection, and diabetic right foot ulcer. As well as stage III pressure ulcer of the right heel. Patient was seen today on 06/25/2024, patient is about the same, remains on hemodialysis, he is on 12 L high flow nasal cannula down from 15 yesterday. In spite of this the patient does not seem to be in any distress. Remains on broad-spectrum antibiotics, including Zosyn and daptomycin, patient was dialyzed yesterday, I am not certain if he is scheduled to have dialysis today. Continues to have leukocytosis with WBC of 23 hemoglobin 11.2 electrolytes are normal BUN is down to [address] of the chest from last week showed diffuse bilateral groundglass and airspace opacities throughout both lungs. And mild to moderate cardiomegaly. The findings are findings of either pulmonary edema or atypical pneumonia. Patient was seen today on 06/26/2024, patient is receiving hemodialysis today, his FiO2 requirement has gone up, today he is on Airvo at 80%. Patient is feeling better than expected considering his FiO2 requirement, chest x-ray continues show bilateral interstitial infiltrates/edema. WBC count is 11.8 hemoglobin is 10.1 potassium earlier today was 6.6 BUN 72 creatinine 4.3 and that being addressed by nephrology. Blood sugar was as high as 360 now it is 200. Patient was seen today on 06/27/2024, basically he is about the same, intermittently on Airvo and sometimes on BiPAP, still running low O2 saturation, chest x-ray discharge showing worsening interstitial edema, he felt better yesterday after his hemodialysis, today obviously he needs to go back on BiPAP. He was earlier on Airvo with FiO2 of 65% and 40 L flow, patient seemed to do much better when on BiPAP. Chest x-ray again is showing worsening vascular congestion andPulmonary edema, basic metabolic profile is normal bicarb is nor mal BUN is 59 creatinine 3.30. Patient was seen today on 06/28/2024, considering his overall condition, patient was transferred from the medical floor to the ICU mostly because of his complicated issues and could not be handled by nursing staff on the floor. Apparently the patient was having intermittent episodes of desaturations, requiring adjustment in his BiPAP and his Airvo. Finally patient was transferred to ICU, and basically we are maintaining the same treatment plan, hardly any change except while having dialysis today the patient was noted to have soft blood pressure, and I recommended the use of norepinephrine if needed. Otherwise patient is on BiPAP, 14/7/60%. The plan is to remove 3 L with hemodialysis today. Antibiotics ring remains on daptomycin and Zosyn patient remains marginal at best. Patient looks pale however his hemoglobin today is 9.6. The rest of the labs are unremarkable, his bicarb is 24 BUN is 92 creatinine 4.63. Seen today on 06/29/2024, remains in the ICU on BiPAP 14/7/60% he was earlier today on Airvo at 50 L and 70% FiO2. Patient is doing well, he normally does quite well after hemodialysis, he scheduled to have hemodialysis today. Platelets are coming down hence I recommended stopping subcu heparin for now. Patient remains on Zosyn empirically. No major changes noted in the last 24 hours, he is off norepinephrine not requiring any hemodynamic support. WBC count is 11.1 hemoglobin 9.2 electrolytes are normal except for sodium of 129 BU N is 61, creatinine 3.57 chest x-ray continues to show cardiomegaly and pulmonary edema with bilateral pleural effusions Patient was evaluated today on 06/30/2024, remains in the ICU, marginal at best. On BiPAP 14/7 FiO2 60%, and intermittently on Airvo at 50 L or 73% FiO2. O2 saturation is in the low 90s and high 80s most of the time. Patient remains on daptomycin remains on Zosyn, remains intermittently on hemodialysis, his last hemodialysis yesterday and 2 L were removed. Patient had debridement of his foot, and he had MRSA and Proteus in the right heel cultured. Patient has a right subclavian hemodialysis catheter. His oxygen requirement has been relatively high, unable to cut down on his FiO2. Chest x-ray continues show evidence of bilateral interstitial edema. And questionable underlying infiltrates. WBC count is 11 hemoglobin 9.5 sodium 128 potassium 3.8 BUN is 48 creatinine 2.58 Progress note dated July 01, 2024. 73-year-old male who was admitted back on June 04, where shortness of breath, and mental status changes. The patient has been in and out of the intensive care unit, coming back to the ICU, most recently on June 27. Currently, the patient is on Airvo, 60 L/min, with an FiO2 of 70%. He does also use BiPAP from time to time, with settings of 14/7 and 60%. He is getting hemodialysis, Monday, Monday, and Monday. At times, he is a bit confused. Dialysis plans today include removal of 2 L of fluid. The patient continues on daptomycin, Zosyn, and fluconazole. Current labs include a white count 13.3, hemoglobin 9.4, hematocrit 31.2, and a platelet count of 131,000. Sodium 127, potassium 4.2, chloride 92, CO2 23, BUN 90, creatinine 4.14. Glucose is 117. Calcium is 8.2. Chest x-ray shows cardiomegaly, and pulmonary vascular congestion, with pulmonary edema, bilateral pleural effusions. Progress note dated July 02, 2024. This is a 73-year-old male who was admitted back on June 04, with shortness of breath, mental status changes, acute kidney injury, and CHF. The patient has been in and out of the intensive care unit, most recently being readmitted on June 27. He remains on Airvo, with settings of 60 L/min and FiO2 of 70%. He did use BiPAP, for about 7 hours, with settings of 14/7 and 60%. He is not receiving any IV fluids. He is receiving hemodialysis today. The goal is a removal of 3 L. Current laboratory data reveals an white blood cell count of 8.4, hemoglobin 10, hematocrit 32.9, and a platelet count of 141,000. Sodium 131, potassium 4.9, chloride 95, CO2 25, anion gap 11, BUN 66, creatinine 3.19. Glucose is 224. Chest x-ray shows cardiomegaly, with pulmonary edema. Objective - Vital Signs Vital signs: Vital Signs Temp 97.7 F 07/02/24 09:00 Pulse 97 07/02/24 11:00 Resp 17 07/02/24 11:00 BP 125/73 07/02/24 11:00 Pulse Ox 91 L 07/02/24 11:00 FiO2 70 07/02/24 09:30 Intake & Output 07/01/24 07/02/24 07/02/24 18:59 06:59 18:59 Intake Total 500 100 250 Output Total 5000 0 0 Balance -4500 100 250 Weight 96.8 kg 96.6 kg Intake: Intake, IV Titration 100 100 250 Amount DAPTOmycin 350 mg In 50 Sodium Chloride 0.9% 50 ml @ 100 mls/hr IVPB Q48H [facility] Rx#:[id number] Piperacillin-Tazobactam 3 100 100 .375 gm In Sodium Chloride 0.9% 100 ml @ 25 mls/hr IVPB Q12HR [facility] Rx #:[id number] Sodium Ferric Gluconat- 100 100 Sucrose 125 mg In Sodium Chloride 0.9% 100 ml @ 100 mls/hr IVPB DAILY [facility] Rx#:[id number] Hemodialysis 400 Output: Urine 0 0 0 Hemodialysis 2700 Hemodialysis Net Amount 2300 - Exam No acute distress, currently on Airvo. HEENT examination is grossly unremarkable. Mucous membranes are moist. No oral lesions. Neck supple. Full range of motion. No adenopathy thyromegaly or neck vein distention. Cardiovascular examination reveals regular rhythm rate. S1-S2 normal. No S3 or S4. No discernible murmur noted. Heart sounds are distant. Lungs reveal scattered bilateral rhonchi. Some basilar crackles are noted. No wheezes. Breath sounds are equal bilaterally. Abdomen soft bowel sounds are heard. No masses or tenderness. Extremities are intact. No cyanosis clubbing or edema. Right foot is wrapped. Skin is without rash or lesion. Neurologic examination is brief but nonfocal. - Labs CBC & Chem 7: 07/02/24 05:59 07/02/24 06:10 Labs: Abnormal Lab Results - Last 24 Hours (Table) 07/01/24 07/02/24 07/02/24 Range/Units 15:11 05:59 06:10 RBC 3.26 L (4.30-5.90) m/uL Hgb 10.0 L (13.0-17.5) gm/dL Hct 32.9 L (39.0-53.0) % MCV 100.9 H (80.0-100.0) fL MCHC 30.3 L (31.0-37.0) g/dL RDW 17.7 H (11.5-15.5) % Plt Count 141 L (150-450) k/uL Neutrophils # 7.8 H (1.3-7.7) k/uL Lymphocytes # 0.2 L (1.0-4.8) k/uL Sodium 131 L (137-145) mmol/L Chloride 95 L (98-107) mmol/L BUN 66 H (9-20) mg/dL Creatinine 3.19 H (0.66-1.25) mg/dL POC Glucose (mg/dL) 175 H (70-110) mg/dL 07/02/24 07/02/24 07/02/24 Range/Units 06:29 08:50 11:28 RBC (4.30-5.90) m/uL Hgb (13.0-17.5) gm/dL Hct (39.0-53.0) % MCV (80.0-100.0) fL MCHC (31.0-37.0) g/dL RDW (11.5-15.5) % Plt Count (150-450) k/uL Neutrophils # (1.3-7.7) k/uL Lymphocytes # (1.0-4.8) k/uL Sodium (137-145) mmol/L Chloride (98-107) mmol/L BUN (9-20) mg/dL Creatinine (0.66-1.25) mg/dL POC Glucose (mg/dL) 132 H 140 H 224 H (70-110) mg/dL Assessment and Plan Assessment: Acute exacerbation of diastolic congestive heart failure. Acute hypoxemic respiratory failure, secondary to above. Acute on chronic shortness of breath. Acute on chronic kidney disease now requiring renal replacement therapy to start today June 10, 2024. Hyperkalemia secondary to above. Acute on chronic anemia secondary to above. History of CAD with previous PCI. Diabetes mellitus with hyperglycemia. Hypertension. History of hyperlipidemia. Chronic cephalgia. History of UC with previous colectomy and ileostomy. History of prostate cancer status post chemoradiation. Chronic right heel wound, status post debridement on 05/28/2024. Obesity, with a BMI of 38.8 kg/m . Plan: Plan dated June 11, 2024. The patient is seen today in room 366. He continues on BiPAP, with settings of 12/6, and 100%. We are hoping that after hemodialysis today, the FiO2 can be reduced. The patient is receiving saline at 10 cc an hour. In addition, the patient continues on cefepime, and daptomycin. Currently, cultures are negative. All labs, x-rays, and medications are reviewed. 50 minutes was spent with this patient, including time spent interviewing the patient, and examining him, reviewing pertinent labs, x-rays, and medications, as well as discussing the diagnosis, treatment, and prognosis, with the patient, and the patient's family, as well as the bedside nurse. Plan dated July 01, 2024. The patient is seen today again in room 254. I saw him last back on June 11. The patient is currently on Airvo, 60 L/min, with an FiO2 of 70%. He does occasionally use BiPAP, with settings of 14/7, 60%. The patient was initially admitted back on June 04. He came back to the intensive care unit, on June 27. He continues on daptomycin, Zosyn, and fluconazole. The patient has hemodialysis, Monday, Monday, and Monday. The goal for hemodialysis today is to remove 2 L of fluid. The patient remains a full code. Additional recommendations and suggestions are forthcoming. The patient's overall prognosis remains poor, and over the course of this entire hospital stay for 27 days, he has made very little progress. We will continue to follow and make recommendations along the way. All labs, x-rays, and medications are reviewed. Prognosis is guarded. Dictation was produced using [employer] software. Please excuse any grammatical, word or spelling errors. Plan dated July 02, 2024. The patient was seen today in room 254. He continues on Airvo, with settings of 60 L/min, and FiO2 70%. The patient did spend some time with BiPAP, roughly 7 hours, with settings of 14/7 and an FiO2 of 60%. He is not receiving any IV fluids. The patient is undergoing hemodialysis today. The goal is to removal of 3 L. The patient is currently being evaluated for long-term acute care/specialized nursing facility. I had the opportunity to speak to the patient's , Sydnee, and gave her number different things to think about including CODE STATUS. She said he would never want to be on life support. I asked her to discuss that with him, and come up with a meeting on the minds. In addition, I told her that she would be more than welcome to take the patient elsewhere, if she thinks that he would benefit from a different facility such as [facility]. We also talked about CODE STATUS, and also talked about long-term acute care facility such as select specialty or specialized nursing facility. Additional recommendations and suggestions are forthcoming. All labs x-rays and medications are reviewed. Prognosis is guarded. Dictation was produced using [employer] software. Please excuse any grammatical, word or spelling errors. Time with Patient: Greater than 30
[2024-07-02 12:40] LABS: Glucose,Whole Blood 270 mg/dL (70-110)
--- NOTE | 2024-07-02 13:31 | P.PN ---
Subjective Interval History: Pleasant 73-year-old patient follows with Dr. Dennis. 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 Bales. April 26, [address] Bales: Following a non-ST relation VT: Patent stent to mid LAD. Late stent thrombosis of the second diagonal branch of the LAD. Severe disease involving the OM1 appears unchanged. Attempted balloon angioplasty performed to the second of diagonal branch with suboptimal results. Dose of Imdur was increased and Ranexa was added. Patient recently in the hospital from May 28 through May 31. Chronic headaches: MRI unremarkable. MR angio head and neck: MR angio head without contrast: No evidence of aneurysm or significant stenosis. Atrophic right A1 segment. origin of the right posterior cerebral artery.MRI of the brain nonspecific. Was seen by neurology Dr. Gay. Patient to follow-up outpatient Chronic right heel wound seen by Dr. Carpenter from vascular deep debridement was carried out. No need for antibiotics. Patient to follow-up with Dr. Jernigan at the wound center. Shortness of breath: Was seen by cardiology. Not for any further intervention. Patient doing well when discharged. Patient presented increased shortness of breath when at home. His pulse ox dropped out of the 80s. Increasing shortness of breath. Decreased appetite. No fever or chills. June 10: Using his BiPAP. Patient seen this morning. Later this afternoon. Right femoral vein dialysis catheter was placed by Dr. Carpenter from vascular for dialysis. Baseline some shortness of breath. Due for first dialysis today. Patient is right heel culture grew MRSA Proteus P Corynebacterium on May 29. Patient is on IV daptomycin and IV cefepime per ID. June 11: Patient seen this afternoon. On BiPAP. Getting hemodialysis. Remains on IV daptomycin IV Zosyn. Tired. Also getting IV iron. Patient really did not eat today. Because of BiPAP. Cut back Levemir to 26 units at night. DC scheduled NovoLog for now. June 12: Overflowing the ICU. Remains on BiPAP. 04/05/%. at the bedside. Remains on IV daptomycin and IV Zosyn. For dialysis today. X-ray continues shows infiltrates. Significantly hypoxic. N.p.o. June 13: ICU. Remains on BiPAP. 04/05/90% moderate take anything by mouth. Spoke to the nurse have TPN lipids ordered. Remains on IV daptomycin IV Zosyn. Chest x-ray continues to show diffuse infiltrates. Continues to be followed by cardiology pulmonary ID nephrology. June 14: ICU. Later this afternoon patient was put on Airvo. 60/60. Has some delirium. Remains on IV daptomycin and IV Zosyn. Had 2 L ultrafiltration yesterday. Patient getting daily dialysis for now. As patient is oliguric per nephrology Lasix has been held. TPN was ordered yesterday per the nurse culture that returned to feed the patient. Will see how that goes. Dietitian on the case. June 15: ICU. Patient be getting hypotensive. Some medications held back by cardiology. Hemodialysis done today. Patient remains on Airvo though at 50/50. at the bedside. Plans this afternoon to get him up in the chair. Remains on daptomycin and IV Zosyn. IV Lasix been discontinued. Patient tolerating some liquid diet. June 16: Patient moved to the ICU. Remains on Airvo. 45/45. at the bedside. Tolerating full liquids. Spoke to the about the morphine. His headaches are chronic. Use Fioricet as needed. Remains on IV daptomycin and IV Zosyn. IV Solu-Medrol. Amlodipine dose cut back. PT OT. June 17: On 3 S., telemetry floor. Getting hemodialysis today. Remains on IV daptomycin IV Zosyn. On full liquid diet. Advance to ground diet. Minimal urine output. DC fluid restriction. Awake communicating. Accu-Cheks running high. Increase Levemir to 28 units subcu twice daily. Seen by PT OT. Maximum assist. On Airvo 40/40. Cut back Solu-Medrol to every 12. June 18: On a recliner. 7 L nasal cannula. Decreased appetite. at the bedside. Accu-Chek in 200s. IJ PermCath placement pending. Encourage oral intake. Ordered incentive spirometry June 19: Patient was on 7 L nasal cannula yesterday. Patient back on Airvo today. 40 L. Due for hemodialysis today. Had perm dialysis catheter placed right IJ by Dr. Jayden today. Minimal intake today. Discussed with at the bedside. June 20: Recliner. High flow 15 L nasal cannula. at the bedside. Decreased oral intake.Tired. Hemodialysis today. June 21: Still decreased appetite. Remains on high flow 15 l nasal cannula. Remains on IV daptomycin IV Zosyn per ID. Being followed by multiple consultants spoke to the patient and . Encourage oral intake. June 22: Remains on 15 L high flow nasal cannula. at the bedside. Diet. Remains on IV daptomycin IV Zosyn. Decreased appetite. Will try ground diet. June 23: Monday to the bed. Ate a bit better according to the . Remains on 15 L nasal cannula. Oral candidiasis. Diflucan 200 mg x 1 today. Then 100 mg 3 times a week after each dialysis. Remains on daptomycin IV Zosyn per ID. Discussed with patient 06/24 I am resuming the care of the patient today He is sitting at the edge of the bed feels comfortable. Still requiring 15 units of oxygen, he states that he feels better than yesterday after he was started on IV Solu-Medrol 40 mg twice daily. At home he was not on oxygen Also he is on daptomycin and Diflucan. He is also on antibiotic for his right foot ulcer with dressing in place. No pain 06/25 Patient feels the same Oxygen requirements down from 15 down to 12 L/min His labs showing more hemoconcentration with leukocytosis 23K, hemoglobin 12.2 and platelet 128 all went up little bit. Creatinine 2.5. Sodium improved 132 He remains on Zosyn daptomycin and fluconazole and IV Solu-Medrol 40 mg twice daily 06/26 Patient is breathing quietly while he is sitting in bed. He is getting 11 L via nasal cannula in the morning, however later on it looks like his oxygen supply was increased. Patient denies any other new symptoms His sodium today was 129 and potassium elevated 6.6 and creatinine 4.3. Patient getting dialysis for hyperkalemia protocol. WBC went down to 11.8. Hemoglobin stable at 10.1. Platelet count 122. Remains on triple antibiotics with Diflucan, daptomycin and Zosyn. Also is on IV Solu-Medrol 40 mg twice daily. No more panic attack. Yesterday after rounding he developed panic attacks and improved with Xanax 06/27 Patient required more oxygen starting yesterday and today his saturation well on higher dose of oxygen 40 L/min with FiO2 of 66% Chest x-ray showing cardiomegaly, pulmonary vascular congestion and pleural effusion Currently patient torsemide 40 mg daily Also is getting hemodialysis yesterday and there is another dialysis going on for tomorrow Also he remains on IV Solu-Medrol 40 mg and broad-spectrum antibiotics as above 06/28 Since yesterday patient oxygen requirement started worsening significantly he was placed on high flow nasal cannula at 40 L with FiO2 of 60 to 66%. By the evening patient required to be placed on BiPAP and he was sent to the ICU. Repeat chest x-ray showing cardiomegaly with pulmonary vascular congestion. Echocardiogram from 05/29/2024 showing ejection fraction of 55 to 60%. Patient also undergoing hemodialysis. Creatinine increased today to 4.63. Remains on torsemide, IV Solu-Medrol antibiotics with Zosyn daptomycin and fluconazole 06/29--- patient was seen and examined today. Continues to require on and off BiPAP, currently on heated high flow oxygen, undergoing hemodialysis. Remains on daptomycin and Zosyn. Pulmonary, ID, nephrology following. On Diflucan. Patient is afebrile, heart rate 78, respiratory rate 17, blood pressure 130/61,'s on 50 L heated high flow oxygen. WBC 11.1, hemoglobin 9.2, platelet 97. Sodium 129 potassium 4.0 BUN 61 creatinine 3.57. 06/30--patient was seen and examined today. Afebrile, heart rate 80, respiratory rate 19, blood pressure 121/58, saturating 94% on 50 L heated high flow. WBCs 11.0, hemoglobin 9.5, platelet 113. Sodium 128 potassium 3.8, chloride 90, CO2 26, BUN 48, creatinine 2.58. Patient reported urine output today. Infectious disease following, currently on Zosyn and daptomycin. ICU following. Nephrology following, plan for hemodialysis tomorrow, challenge ultr afiltration. Currently on torsemide. Received IV iron. 07/01--- patient was seen and examined today. Remained afebrile, heart rate 88, respiratory rate 20, blood pressure 126/61, saturating 94%, on 60 L heated high flow. WBCs 13.3, hemoglobin 9.4, platelet 131. Sodium 127 potassium 4.2 chloride 92 CO2 23 BUN 90 creatinine 4.14 patient underwent hemodialysis today, nephrology following plan for daily hemodialysis for fluid overload. ICU following. Currently on Diflucan, daptomycin and Zosyn. Infectious disease consulted and following. 07/02--patient was seen and examined today. Afebrile, heart rate 98, respiratory rate 18, blood pressure 127/53. Remains on heated high flow with 50 L. Easily desaturates. WBCs 8.4, hemoglobin 10.0, platelet 141. Sodium 131 potassium 4.9 chloride 95 CO2 25 BUN 66 creatinine 3.19. Tolerated BiPAP overnight. ICU following. Poor prognosis. Assessment and plan: Acute hypoxic respiratory failure: Bilateral pneumonia: Acute diastolic CHF: Acute COPD exacerbation: Right foot diabetic ulcer: MRSA culture positive: ROSELYN on CKD: Now requiring dialysis, right IJ permacath placed to 1025 Hyperkalemia: Resolved Oral candidiasis: Acute on chronic anemia: Anemia of chronic disease History of CAD with previous PCI Diabetes mellitus Hypertension Hyperlipidemia Chronic cephalgia Chronic ostomy History of prostate cancer status post chemo/radiation Chronic right heel wound status post debridement Obesity: Plan: Requires BiPAP, continue inhalers, bronchodilators, Solu-Medrol, pulmonary consulted Nephrology consulted, on hemodialysis, torsemide. Antibiotics: Daptomycin and Zosyn, status post debridement twice 06/07, 06/14 during hospitalization, infectious disease on board Diflucan Accu-Cheks, diabetic diet, Lantus, Humalog. Continue home meds including aspirin, Plavix, Norvasc, metoprolol, Imdur, Ranexa, Flomax. DVT prophylaxis: SCD Monitor vital signs and labs Labs and medication were reviewed. Continue same treatment. Further recommendations as per clinical course of the patient PHYSICAL EXAMINATION: GENERAL: The patient is A&O x3, NAD HEENT: EOMI, Sclerae anicteric, Moist Mucous membranes Neck: Supple, Non tender, No JVD PULMONARY: Dec breath souds B/L, No wheezing, + crackles. CARDIOVASCULAR: S1, S2 present. No murmurs, rubs, or gallops. ABDOMEN: Soft, nontender, nondistended, normoactive bowel sounds. No guarding or rebound tenderness. MUSCULOSKELETAL: + edema, No cyanosis. No clubbing. Normal ROM. Intact peripheral pulses. NEUROLOGICAL: CN 2-12 grossly intact. No FND Skin: No Rash REVIEW OF SYSTEMS: CONSTITUTIONAL: No fever or chills. CARDIOVASCULAR: No chest pain, palpitations or syncope. PULMONARY: No shortness of breath, no cough, sore throat. GASTROINTESTINAL: No nausea, vomiting, diarrhea, abdominal pain. : No Dysuria, urgency, frequency. Extremities: No edema. NEUROLOGICAL: No headaches, no weakness, or numbness Dictation was produced using [employer] dictation software. please excuse any grammatical, word or spelling errors. Objective - Vital Signs Vital signs: Vital Signs Temp 97.5 F L 07/02/24 12:16 Pulse 98 07/02/24 12:16 Resp 18 07/02/24 12:16 BP 127/53 07/02/24 12:16 Pulse Ox 93 L 07/02/24 12:11 FiO2 65 07/02/24 12:11 Intake & Output 07/01/24 07/02/24 07/02/24 18:59 06:59 18:59 Intake Total 500 100 650 Output Total 5000 0 5400 Balance -4500 100 -4750 Weight 96.8 kg 96.6 kg Intake: Intake, IV Titration 100 100 250 Amount DAPTOmycin 350 mg In 50 Sodium Chloride 0.9% 50 ml @ 100 mls/hr IVPB Q48H JOSÉ Rx#:[id number] Piperacillin-Tazobactam 3 100 100 .375 gm In Sodium Chloride 0.9% 100 ml @ 25 mls/hr IVPB Q12HR JOSÉ Rx #:[id number] Sodium Ferric Gluconat- 100 100 Sucrose 125 mg In Sodium Chloride 0.9% 100 ml @ 100 mls/hr IVPB DAILY JOSÉ Rx#:[id number] Hemodialysis 400 400 Output: Urine 0 0 0 Hemodialysis 2700 2900 Hemodialysis Net Amount 2300 2500 - Labs CBC & Chem 7: 07/02/24 05:59 07/02/24 06:10 Labs: Abnormal Lab Results - Last 24 Hours (Table) 07/01/24 07/02/24 07/02/24 Range/Units 15:11 05:59 06:10 RBC 3.26 L (4.30-5.90) m/uL Hgb 10.0 L (13.0-17.5) gm/dL Hct 32.9 L (39.0-53.0) % MCV 100.9 H (80.0-100.0) fL MCHC 30.3 L (31.0-37.0) g/dL RDW 17.7 H (11.5-15.5) % Plt Count 141 L (150-450) k/uL Neutrophils # 7.8 H (1.3-7.7) k/uL Lymphocytes # 0.2 L (1.0-4.8) k/uL Sodium 131 L (137-145) mmol/L Chloride 95 L (98-107) mmol/L BUN 66 H (9-20) mg/dL Creatinine 3.19 H (0.66-1.25) mg/dL POC Glucose (mg/dL) 175 H (70-110) mg/dL 07/02/24 07/02/24 07/02/24 Range/Units 06:29 08:50 11:28 RBC (4.30-5.90) m/uL Hgb (13.0-17.5) gm/dL Hct (39.0-53.0) % MCV (80.0-100.0) fL MCHC (31.0-37.0) g/dL RDW (11.5-15.5) % Plt Count (150-450) k/uL Neutrophils # (1.3-7.7) k/uL Lymphocytes # (1.0-4.8) k/uL Sodium (137-145) mmol/L Chloride (98-107) mmol/L BUN (9-20) mg/dL Creatinine (0.66-1.25) mg/dL POC Glucose (mg/dL) 132 H 140 H 224 H (70-110) mg/dL 07/02/24 Range/Units 12:39 RBC (4.30-5.90) m/uL Hgb (13.0-17.5) gm/dL Hct (39.0-53.0) % MCV (80.0-100.0) fL MCHC (31.0-37.0) g/dL RDW (11.5-15.5) % Plt Count (150-450) k/uL Neutrophils # (1.3-7.7) k/uL Lymphocytes # (1.0-4.8) k/uL Sodium (137-145) mmol/L Chloride (98-107) mmol/L BUN (9-20) mg/dL Creatinine (0.66-1.25) mg/dL POC Glucose (mg/dL) 270 H (70-110) mg/dL
--- NOTE | 2024-07-02 14:37 | P.PN ---
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 On today's evaluation that is 07/02/2024, Patient is afebrile this morning patient mention breathing slightly overall however still requiring high flow nasal cannula oxygen at 65% FiO2 P denies any chest pain no cough no abdominal pain or diarrhea. Patient did have a creatinine of 3.19 white count normalized to 8.4 Objective - Vital Signs Vital signs: Vital Signs Temp 97.5 F L 07/02/24 12:16 Pulse 100 07/02/24 14:00 Resp 12 07/02/24 14:00 BP 137/52 07/02/24 14:00 Pulse Ox 93 L 07/02/24 14:00 FiO2 65 07/02/24 12:11 Intake & Output 07/01/24 07/02/24 07/02/24 18:59 06:59 18:59 Intake Total 500 100 650 Output Total 5000 0 5400 Balance -4500 100 -4750 Weight 96.8 kg 96.6 kg Intake: Intake, IV Titration 100 100 250 Amount DAPTOmycin 350 mg In 50 Sodium Chloride 0.9% 50 ml @ 100 mls/hr IVPB Q48H [facility] Rx#:[id number] Piperacillin-Tazobactam 3 100 100 .375 gm In Sodium Chloride 0.9% 100 ml @ 25 mls/hr IVPB Q12HR [facility] Rx #:[id number] Sodium Ferric Gluconat- 100 100 Sucrose 125 mg In Sodium Chloride 0.9% 100 ml @ 100 mls/hr IVPB DAILY JOS[facility] Rx#:[id number] Hemodialysis 400 400 Output: Urine 0 0 0 Hemodialysis 2700 2900 Hemodialysis Net Amount 2300 2500 - Exam GENERAL DESCRIPTION: An elderly male lying in bed in no distress RESPIRATORY SYSTEM: Unlabored breathing , decreased breath sounds at bases HEART: S1 S2 regular rate and rhythm , ABDOMEN: Soft , no tenderness EXTREMITIES: Right hand wound is currently dressed - Labs CBC & Chem 7: 07/02/24 05:59 07/02/24 06:10 Labs: Abnormal Lab Results - Last 24 Hours (Table) 07/01/24 07/02/24 07/02/24 Range/Units 15:11 05:59 06:10 RBC 3.26 L (4.30-5.90) m/uL Hgb 10.0 L (13.0-17.5) gm/dL Hct 32.9 L (39.0-53.0) % MCV 100.9 H (80.0-100.0) fL MCHC 30.3 L (31.0-37.0) g/dL RDW 17.7 H (11.5-15.5) % Plt Count 141 L (150-450) k/uL Neutrophils # 7.8 H (1.3-7.7) k/uL Lymphocytes # 0.2 L (1.0-4.8) k/uL Sodium 131 L (137-145) mmol/L Chloride 95 L (98-107) mmol/L BUN 66 H (9-20) mg/dL Creatinine 3.19 H (0.66-1.25) mg/dL POC Glucose (mg/dL) 175 H (70-110) mg/dL 07/02/24 07/02/24 07/02/24 Range/Units 06:29 08:50 11:28 RBC (4.30-5.90) m/uL Hgb (13.0-17.5) gm/dL Hct (39.0-53.0) % MCV (80.0-100.0) fL MCHC (31.0-37.0) g/dL RDW (11.5-15.5) % Plt Count (150-450) k/uL Neutrophils # (1.3-7.7) k/uL Lymphocytes # (1.0-4.8) k/uL Sodium (137-145) mmol/L Chloride (98-107) mmol/L BUN (9-20) mg/dL Creatinine (0.66-1.25) mg/dL POC Glucose (mg/dL) 132 H 140 H 224 H (70-110) mg/dL 07/02/24 Range/Units 12:39 RBC (4.30-5.90) m/uL Hgb (13.0-17.5) gm/dL Hct (39.0-53.0) % MCV (80.0-100.0) fL MCHC (31.0-37.0) g/dL RDW (11.5-15.5) % Plt Count (150-450) k/uL Neutrophils # (1.3-7.7) k/uL Lymphocytes # (1.0-4.8) k/uL Sodium (137-145) mmol/L Chloride (98-107) mmol/L BUN (9-20) mg/dL Creatinine (0.66-1.25) mg/dL POC Glucose (mg/dL) 270 H (70-110) mg/dL Assessment and Plan (1) Diabetic infection of right foot Current Visit: Yes Status: Acute Code(s): E11.628 - TYPE 2 DIABETES MELLITUS WITH OTHER SKIN COMPLICATIONS; L08.9 - LOCAL INFECTION OF THE SKIN AND SUBCUTANEOUS TISSUE, UNSP SNOMED Code(s): 340675572 (2) MRSA (methicillin resistant staph aureus) culture positive Current Visit: Yes Status: Acute Code(s): Z22.322 - CARRIER OR SUSPECTED CARRIER OF METHICILLIN RESIS STAPH SNOMED Code(s): 680969248 (3) Diabetic ulcer of right foot Current Visit: No Status: Acute Code(s): E11.621 - TYPE 2 DIABETES MELLITUS WITH FOOT ULCER; L97.519 - NON-PRS CHRONIC ULCER OTH PRT RIGHT FOOT W UNSP SEVERITY SNOMED Code(s): 182653892 (4) Stage III pressure ulcer of right heel Current Visit: No Status: Acute Code(s): L89.613 - PRESSURE ULCER OF RIGHT HEEL, STAGE 3 SNOMED Code(s): 47992960743552 Plan: 1patient with a chronic nonhealing wound to the right heel which he has for couple of months the wound looks deep with a recent culture positive for Proteus and MRSA concerning for wound infection and question for possible deeper infection such as osteomyelitis as wound has been there for couple of months now 2- x-rays of the right heel with no evidence of any bony changes 3-patient has been evaluated by Dr. 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 Carpenter again we will be reevaluating the patient this afternoon for possible debridement or just with local treatment Dictation was produced using [employer] dictation software. please excuse any grammatical, word or spelling errors. Time with Patient: Less than 30
[2024-07-02] MEDS: LIDOCAINE 1% INJ 10MG/ML (20 ML MDV) SQ ONE (14:45)
[2024-07-02] MEDS: SILVER NITRATE APPLICATOR 1 EACH STICK..EA. TOPICAL ONE ×2 (15:00→15:17)
[2024-07-02 17:00] LABS: Glucose,Whole Blood 295 mg/dL (70-110)
[2024-07-02 20:23] LABS: Glucose,Whole Blood 291 mg/dL (70-110)
[2024-07-02] MEDS: HEPARIN SODIUM,PORCINE 5,000 UNIT/ML 1 ML VIAL SQ SCH (20:29)
--- NOTE | 2024-07-02 20:44 | OP ---
OPERATIVE REPORT DATE OF SERVICE : PREOPERATIVE DIAGNOSIS: Wound, right heel. Measurement is; preop is 5 x 4 x 0.6. Postop wound debridement is 5 x 4 x 0.6. DESCRIPTION OF PROCEDURE: Patient was seen. Right heel was prepped with 1% lidocaine plain and infiltrated using sharp knifes. We did the excision and debridement of the right heel down to subcutaneous fat and the fascia. All the devitalized tissue was excised. Bleeding points were controlled by nitrate stick and we placed Santyl cream. Pressure dressing applied. The patient tolerated the procedure well. Dressing will be changed on a daily basis. MMODL / IJN: [id number] /
[2024-07-03 02:21] LABS: Glucose,Whole Blood 181 mg/dL (70-110)
[2024-07-03 06:33] LABS: Glucose,Whole Blood 143 mg/dL (70-110)
[2024-07-03 07:23] LABS: Anisocytosis Slight; Basophils % (A) 0 %; Eosinophils % (A) 0 %; HCT 36.5 % (39.0-53.0); HGB 11.4 gm/dL (13.0-17.5); Hypochromasia Slight; Lymphocytes # (A) 0.3 k/uL (1.0-4.8); Lymphocytes % (A) 3 %; MCHC 31.3 g/dL (31.0-37.0); MCV 99.1 fL (80.0-100.0); Macrocytosis Slight; Mean Platelet Volume 9.3; Monocytes # (A) 0.5 k/uL (0-1.0); Monocytes % (A) 6 %; Neutrophils # (A) 8.7 k/uL (1.3-7.7); Neutrophils % (A) 91 %; Platelet Count 191 k/uL (150-450); RBC 3.68 m/uL (4.30-5.90); RDW 17.3 % (11.5-15.5); WBC 9.6 k/uL (3.8-10.6)
[2024-07-03 07:28] LABS: African American GFR (CKD) 13 (>60 ml/min/1.73 sqM); Anion Gap 15 mmol/L; Calcium 8.6 mg/dL (8.4-10.2); Carbon Dioxide 21 mmol/L (22-30); Chloride 94 mmol/L (98-107); Glucose 129 mg/dL (74-99); Non-African American GFR(CKD) 11 (>60 ml/min/1.73 sqM); Potassium 5.5 mmol/L (3.5-5.1); Sodium 130 mmol/L (137-145)
[2024-07-03 07:33] LABS: Blood Urea Nitrogen 105 mg/dL (9-20)
--- NOTE | 2024-07-03 07:55 | XR ---
EXAMINATION TYPE: XR chest 1V portable DATE OF EXAM: 07/03/2024 5:28 AM COMPARISON: Multiple radiographs, with the most recent on 07/02/2024 TECHNIQUE: XR chest 1V portable Portable AP radiograph of the chest. CLINICAL INDICATION:Male, 73 years old with history of f/u pulmonary edema; FINDINGS: Lungs/Pleura: Improved inspiration from prior exam. No sizable pleural effusion. Similar diffuse inte rstitial prominence. No pneumothorax. Heart/mediastinum: Cardiomediastinal silhouette is enlarged and stable. Musculoskeletal: No acute osseous pathology. Other findings: None Lines/Tubes: Right IJ approach dual-lumen hemodialysis catheter with distal tip terminating in the right atrium. IMPRESSION: Cardiomegaly with diffuse interstitial prominence suggesting CHF exacerbation/volume overload. Improv ed inspiration. [facility], , 07/03/2024 7:53 AM
[2024-07-03 11:07] LABS: Glucose,Whole Blood 136 mg/dL (70-110)
--- NOTE | 2024-07-03 11:10 | P.PN ---
Subjective Patient is seen for follow-up for chronic kidney disease and acute kidney injury. Started hemodialysis on 06/10/2024 for worsening acute kidney injury and volume overload. Patient has been dialyzed almost on a daily basis due to volume overload and hypoxic respiratory failure. Patient is seen in the ICU. Oxygen requirements remain high. Currently on high flow Airvo with FiO2 at 65 to 70% Seen on hemodialysis. Tolerating treatment well. Goal UF about 2 to 2.5 L today Objective - Vital Signs Vital signs: Vital Signs Temp 97.5 F L 07/03/24 08:00 Pulse 90 07/03/24 10:00 Resp 16 07/03/24 10:00 BP 100/46 07/03/24 10:00 Pulse Ox 94 L 07/03/24 10:00 FiO2 70 07/03/24 10:00 Intake & Output 07/02/24 07/03/24 07/03/24 18:59 06:59 18:59 Intake Total 890 200 600 Output Total 5400 450 0 Balance -4510 -250 600 Weight 91.8 kg Intake: IV 100 Sodium Ferric Gluconat- 100 Sucrose 125 mg In Sodium Chloride 0.9% 100 ml @ 100 mls/hr IVPB DAILY [facility] Rx#:[id number] Intake, IV Titration 250 100 Amount DAPTOmycin 350 mg In 50 Sodium Chloride 0.9% 50 ml @ 100 mls/hr IVPB Q48H [facility] Rx#:[id number] Piperacillin-Tazobactam 3 100 100 .375 gm In Sodium Chloride 0.9% 100 ml @ 25 mls/hr IVPB Q12HR [facility] Rx #:[id number] Sodium Ferric Gluconat- 100 Sucrose 125 mg In Sodium Chloride 0.9% 100 ml @ 100 mls/hr IVPB DAILY [facility] Rx#:[id number] Oral 240 100 500 Hemodialysis 400 Output: Urine 0 200 0 Stool 250 Hemodialysis 2900 Hemodialysis Net Amount 2500 - Exam Patient is awake, comfortable, no acute distress Examination of the heart S1 and S2 Examination of the lungs bilateral breath sounds are heard Abdomen is soft nontender Examination of lower extremities shows trace edema DRAWER IN HAND exam grossly intact - Labs CBC & Chem 7: 07/03/24 06:40 07/03/24 06:40 Labs: Abnormal Lab Results - Last 24 Hours (Table) 07/02/24 07/02/24 07/02/24 Range/Units 11:28 12:39 16:58 RBC (4.30-5.90) m/uL Hgb (13.0-17.5) gm/dL Hct (39.0-53.0) % RDW (11.5-15.5) % Neutrophils # (1.3-7.7) k/uL Lymphocytes # (1.0-4.8) k/uL Sodium (137-145) mmol/L Potassium (3.5-5.1) mmol/L Chloride (98-107) mmol/L Carbon Dioxide (22-30) mmol/L BUN (9-20) mg/dL Creatinine (0.66-1.25) mg/dL Glucose (74-99) mg/dL POC Glucose (mg/dL) 224 H 270 H 295 H (70-110) mg/dL 07/02/24 07/03/24 07/03/24 Range/Units 20:21 02:20 06:32 RBC (4.30-5.90) m/uL Hgb (13.0-17.5) gm/dL Hct (39.0-53.0) % RDW (11.5-15.5) % Neutrophils # (1.3-7.7) k/uL Lymphocytes # (1.0-4.8) k/uL Sodium (137-145) mmol/L Potassium (3.5-5.1) mmol/L Chloride (98-107) mmol/L Carbon Dioxide (22-30) mmol/L BUN (9-20) mg/dL Creatinine (0.66-1.25) mg/dL Glucose (74-99) mg/dL POC Glucose (mg/dL) 291 H 181 H 143 H (70-110) mg/dL 07/03/24 07/03/24 Range/Units 06:40 06:40 RBC 3.68 L (4.30-5.90) m/uL Hgb 11.4 L (13.0-17.5) gm/dL Hct 36.5 L (39.0-53.0) % RDW 17.3 H (11.5-15.5) % Neutrophils # 8.7 H (1.3-7.7) k/uL Lymphocytes # 0.3 L (1.0-4.8) k/uL Sodium 130 L (137-145) mmol/L Potassium 5.5 H (3.5-5.1) mmol/L Chloride 94 L (98-107) mmol/L Carbon Dioxide 21 L (22-30) mmol/L BUN 105 H* (9-20) mg/dL Creatinine 4.88 H (0.66-1.25) mg/dL Glucose 129 H (74-99) mg/dL POC Glucose (mg/dL) (70-110) mg/dL Assessment and Plan Assessment: 1. Acute kidney injury, nonoliguric, cardiorenal. UA is benign and ultrasound does not show any evidence of hydronephrosis. Started hemodialysis on 06/10/2024 for significant oliguric acute kidney injury. 2. Acute on chronic diastolic CHF 3. Volume overload, maintained on daily hemodialysis/UF treatments 4. Hypertension with CKD stage IV 5. Acute hypoxic respiratory failure secondary to CHF 6. Coronary artery disease with history of coronary stents 7. Metabolic acidosis maintained on oral sodium bicarb and improved with dialysis 8. Right heel wound status post debridement Plan: We will continue with daily dialysis/ultrafiltration for fluid overload. Encouraged increased oral intake.
--- NOTE | 2024-07-03 11:29 | P.PN ---
Subjective Progress Note Date: 07/03/24 Principal diagnosis: Respiratory failure. Patient is a 73-year-old male with past medical history significant for hypertension, hyperlipidemia, coronary artery disease with previous PCI/stenting, heart failure, chronic kidney disease, diabetes mellitus, chronic right heel wound, ulcerative colitis with previous colectomy and ileostomy. Of note, patient had a recent hospitalization late May and was just discharged 05/31/2024 for CHF exacerbation. Echocardiogram done during this hospitalization estimating a preserved left ventricular ejection fraction of 55 to 60%. Limited study, but no acute valvular abnormalities reported. Presented the emergency department on 06/04/2024 with a chief complaint of shortness of breath, mostly on exertion. Chest x-ray showing cardiomegaly, mild pulmonary vascular congestion, and a small pleural effusion on the left. NT proBNP e levated 2550. Currently receiving Lasix 80 mg twice daily. CBC: WBC count 10.2, hemoglobin 10.4, hematocrit 32.5, platelets 374. CMP: Sodium 135, potassium 4.6, chloride 101, serum bicarb 18, BUN 66, creatinine 2.71, glucose 139. Troponin is less than 0.012. Patient currently being evaluated on the general medical floor. Appears weak and deconditioned. He is resting in bed on 1 L/min nasal cannula. No respiratory distress noted. Complaining of a generalized headache, which he states is chronic. States that he has been short of breath on exertion for several months to almost 1 year. Particularly on exertion such as climbing stairs or walking to the bathroom. Denies history of COPD or asthma. Never tobacco smoker. Worked in an [employer] shop before he retired. Denies cough. Denies infectious-like symptoms. Current vital signs: Temperature 98 F, heart rate 78 bpm, blood pressure 145/54 mmHg, nontachypneic, SpO2 recorded at 91% on 1 L/min nasal cannula. The patient is seen today June 07, 2024 in follow-up on the regular medical floor. He is awake and alert in no acute distress. Sitting up at the bedside. Maintaining O2 saturations in the 90s on 3 L/min per nasal cannula. White count 9.8. Hemoglobin 8.9. Platelets 366. Sodium 140. Potassium 4.7. Bicarb 22. BUN 60. Creatinine 2.4. Glucose 97. He remains on DuoNeb and elations, Pulmicort inhalations. Lasix 80 mg IV every 12 hours. He is currently -1.1 L balance. Antibiotics in the form of cefepime and daptomycin for his diabetic ulcer of the right foot. X-ray revealed no osseous erosion or acute fracture. The patient is seen today June 08, 2024 in follow-up on the regular medical floor. He did have issues with worsening shortness of breath. He is currently on BiPAP 12/6 and 40% FiO2. White count 6.3. Hemoglobin 8.5. Platelets 357. Sodium 136. Potassium 5.8. Bicarb 21. BUN 64. Creatinine 2.4. Glucose 178. Chest x-ray continues to show evidence of congestive heart failure. He is currently on Lasix 80 mg IV every 12 hours. Continued on bronchodilators and steroids. Remains on antibiotics in the form of cefepime and daptomycin. The patient is seen today June 09, 2024 in follow-up on the regular medical floor. He is currently resting comfortably in bed. Awake and alert in no acute distress. Breathing easier today compared to yesterday. He is currently on BiPAP 12/6 and 40% FiO2. White count 10.1. Hemoglobin 8.0. Platelets 339. Sodium 136. Potassium 5.8. Bicarb 21. BUN 94. Creatinine 3.4. Glucose 234. He remains on DuoNeb and elations, Pulmicort inhalations, Solu-Medrol. Remains on IV diuretics. Remains on cefepime and daptomycin. Receiving Lokelma. The patient is seen today June 10, 2024 in follow-up on the regular medical floor. He is currently sitting up at the bedside. Awake and alert in no acute distress. He is requiring BiPAP support at 12/6 and 60% FiO2. Alternating with oxygen at 4 L/min per nasal cannula. He is continued on DuoNeb inhalations, Pulmicort inhalations, Solu-Medrol. He remains on antibiotics in the form of cefepime and daptomycin. Receiving iron supplement. Continued on IV diuretics. Continued on sodium bicarb tablets. White count 12.8. Hemoglobin 7.9. Platelets 335. Sodium 135. Potassium 5.2. Bicarb 23. BUN 118. Creatinine 4.1. Glucose 131. Plan is for placement of a hemodialysis catheter today and to receive hemodialysis today and tomorrow per nephrology Progress note dated 06/11/2024. The patient is seen in room 366. Currently, the patient is on BiPAP, with settings of 12/6, and 100%. The patient is undergoing hemodialysis today. The patient is getting saline at 10 cc an hour. The patient continues on cefepime, and daptomycin. Laboratory data today includes a sodium 137, potassium 4.9, chlorides 97, CO2 22, anion gap 18, BUN 108, and creatinine 4.1. Glucose is 106 . Calcium is 8.7. Chest x-ray from yesterday shows cardiomegaly, and diffuse infiltrates, likely related to underlying fluid overload. Patient was seen today on 06/24/2024, patient remains on 15 L high flow nasal cannula, surprisingly the patient tells me that he is feeling better, patient was started 2 days ago on dialysis/ultrafiltration, seems to be helping the patient significantly. His urine output is very marginal today. Patient remains on broad-spectrum antibiotics, he is being followed by many consultants including nephrology, patient remains on Zosyn and daptomycin. WBC count 17.7 hemoglobin 9.8 electrolytes showed low sodium of 130 potassium 6 BUN is 43 creatinine 2.97. To the right heel area for months now, and has been treated on outpatient setting for culture positive MRSA and positive for Proteus. Patient clearly has diabetic foot infection, and diabetic right foot ulcer. As well as stage III pressure ulcer of the right heel. Patient was seen today on 06/25/2024, patient is about the same, remains on hemodialysis, he is on 12 L high flow nasal cannula down from 15 yesterday. In spite of this the patient does not seem to be in any distress. Remains on broad-spectrum antibiotics, including Zosyn and daptomycin, patient was dialyzed yesterday, I am not certain if he is scheduled to have dialysis today. Continues to have leukocytosis with WBC of 23 hemoglobin 11.2 electrolytes are normal BUN is down to [address] of the chest from last week showed diffuse bilateral groundglass and airspace opacities throughout both lungs. And mild to moderate cardiomegaly. The findings are findings of either pulmonary edema or atypical pneumonia. Patient was seen today on 06/26/2024, patient is receiving hemodialysis today, his FiO2 requirement has gone up, today he is on Airvo at 80%. Patient is feeling better than expected considering his FiO2 requirement, chest x-ray continues show bilateral interstitial infiltrates/edema. WBC count is 11.8 hemoglobin is 10.1 potassium earlier today was 6.6 BUN 72 creatinine 4.3 and that being addressed by nephrology. Blood sugar was as high as 360 now it is 200. Patient was seen today on 06/27/2024, basically he is about the same, intermittently on Airvo and sometimes on BiPAP, still running low O2 saturation, chest x-ray discharge showing worsening interstitial edema, he felt better yesterday after his hemodialysis, today obviously he needs to go back on BiPAP. He was earlier on Airvo with FiO2 of 65% and 40 L flow, patient seemed to do much better when on BiPAP. Chest x-ray again is showing worsening vascular congestion andPulmonary edema, basic metabolic profile is normal bicarb is nor mal BUN is 59 creatinine 3.30. Patient was seen today on 06/28/2024, considering his overall condition, patient was transferred from the medical floor to the ICU mostly because of his complicated issues and could not be handled by nursing staff on the floor. Apparently the patient was having intermittent episodes of desaturations, requiring adjustment in his BiPAP and his Airvo. Finally patient was transferred to ICU, and basically we are maintaining the same treatment plan, hardly any change except while having dialysis today the patient was noted to have soft blood pressure, and I recommended the use of norepinephrine if needed. Otherwise patient is on BiPAP, 14/7/60%. The plan is to remove 3 L with hemodialysis today. Antibiotics ring remains on daptomycin and Zosyn patient remains marginal at best. Patient looks pale however his hemoglobin today is 9.6. The rest of the labs are unremarkable, his bicarb is 24 BUN is 92 creatinine 4.63. Seen today on 06/29/2024, remains in the ICU on BiPAP 14/7/60% he was earlier today on Airvo at 50 L and 70% FiO2. Patient is doing well, he normally does quite well after hemodialysis, he scheduled to have hemodialysis today. Platelets are coming down hence I recommended stopping subcu heparin for now. Patient remains on Zosyn empirically. No major changes noted in the last 24 hours, he is off norepinephrine not requiring any hemodynamic support. WBC count is 11.1 hemoglobin 9.2 electrolytes are normal except for sodium of 129 BU N is 61, creatinine 3.57 chest x-ray continues to show cardiomegaly and pulmonary edema with bilateral pleural effusions Patient was evaluated today on 06/30/2024, remains in the ICU, marginal at best. On BiPAP 14/7 FiO2 60%, and intermittently on Airvo at 50 L or 73% FiO2. O2 saturation is in the low 90s and high 80s most of the time. Patient remains on daptomycin remains on Zosyn, remains intermittently on hemodialysis, his last hemodialysis yesterday and 2 L were removed. Patient had debridement of his foot, and he had MRSA and Proteus in the right heel cultured. Patient has a right subclavian hemodialysis catheter. His oxygen requirement has been relatively high, unable to cut down on his FiO2. Chest x-ray continues show evidence of bilateral interstitial edema. And questionable underlying infiltrates. WBC count is 11 hemoglobin 9.5 sodium 128 potassium 3.8 BUN is 48 creatinine 2.58 Progress note dated July 01, 2024. 73-year-old male who was admitted back on June 04, where shortness of breath, and mental status changes. The patient has been in and out of the intensive care unit, coming back to the ICU, most recently on June 27. Currently, the patient is on Airvo, 60 L/min, with an FiO2 of 70%. He does also use BiPAP from time to time, with settings of 14/7 and 60%. He is getting hemodialysis, Monday, Monday, and Monday. At times, he is a bit confused. Dialysis plans today include removal of 2 L of fluid. The patient continues on daptomycin, Zosyn, and fluconazole. Current labs include a white count 13.3, hemoglobin 9.4, hematocrit 31.2, and a platelet count of 131,000. Sodium 127, potassium 4.2, chloride 92, CO2 23, BUN 90, creatinine 4.14. Glucose is 117. Calcium is 8.2. Chest x-ray shows cardiomegaly, and pulmonary vascular congestion, with pulmonary edema, bilateral pleural effusions. Progress note dated July 02, 2024. This is a 73-year-old male who was admitted back on June 04, with shortness of breath, mental status changes, acute kidney injury, and CHF. The patient has been in and out of the intensive care unit, most recently being readmitted on June 27. He remains on Airvo, with settings of 60 L/min and FiO2 of 70%. He did use BiPAP, for about 7 hours, with settings of 14/7 and 60%. He is not receiving any IV fluids. He is receiving hemodialysis today. The goal is a removal of 3 L. Current laboratory data reveals an white blood cell count of 8.4, hemoglobin 10, hematocrit 32.9, and a platelet count of 141,000. Sodium 131, potassium 4.9, chloride 95, CO2 25, anion gap 11, BUN 66, creatinine 3.19. Glucose is 224. Chest x-ray shows cardiomegaly, with pulmonary edema. Progress note dated July 03, 2024. 73-year-old male seen again today in room 254. The patient is currently on Airvo at 40 L/min with an FiO2 of 50%. He is not receiving any IV fluids. Currently, he is having daily hemodialysis. The goal today is to remove 2-1/2 L. He did use BiPAP a couple days ago, and we have not discontinued it from the room. BiPAP settings are 14/7, and 60%. Again he has not used it for the last 2 days. Current laboratory data includes a white count 9.6, hemoglobin 1.4, macro 36.5, and a normal platelet count. Sodium 130, potassium 5.5, chloride 94, CO2 21, anion gap 15, BUN 105, and creatinine 4.88. Glucose is 136. Calcium is 8.6. Chest x-ray again shows a pattern of CHF, cardiomegaly, and interstitial edema. Objective - Vital Signs Vital signs: Vital Signs Temp 97.5 F L 07/03/24 08:00 Pulse 93 07/03/24 11:24 Resp 22 07/03/24 11:24 BP 100/46 07/03/24 10:00 Pulse Ox 98 07/03/24 11:13 FiO2 60 07/03/24 11:14 Intake & Output 07/02/24 07/03/24 07/03/24 18:59 06:59 18:59 Intake Total 890 200 600 Output Total 5400 450 0 Balance -4510 -250 600 Weight 91.8 kg Intake: IV 100 Sodium Ferric Gluconat- 100 Sucrose 125 mg In Sodium Chloride 0.9% 100 ml @ 100 mls/hr IVPB DAILY [facility] Rx#:[id number] Intake, IV Titration 250 100 Amount DAPTOmycin 350 mg In 50 Sodium Chloride 0.9% 50 ml @ 100 mls/hr IVPB Q48H [facility] Rx#:[id number] Piperacillin-Tazobactam 3 100 100 .375 gm In Sodium Chloride 0.9% 100 ml @ 25 mls/hr IVPB Q12HR [facility] Rx #:[id number] Sodium Ferric Gluconat- 100 Sucrose 125 mg In Sodium Chloride 0.9% 100 ml @ 100 mls/hr IVPB DAILY [facility] Rx#:[id number] Oral 240 100 500 Hemodialysis 400 Output: Urine 0 200 0 Stool 250 Hemodialysis 2900 Hemodialysis Net Amount 2500 - Exam No acute distress, currently on Airvo. HEENT examination is grossly unremarkable. Mucous membranes are moist. No oral lesions. Neck supple. Full range of motion. No adenopathy thyromegaly or neck vein distention. Cardiovascular examination reveals regular rhythm rate. S1-S2 normal. No S3 or S4. No discernible murmur noted. Heart sounds are distant. Lungs reveal scattered bilateral rhonchi. Some basilar crackles are noted. No wheezes. Breath sounds are equal bilaterally. Abdomen soft bowel sounds are heard. No masses or tenderness. Extremities are intact. No cyanosis clubbing or edema. Right foot is wrapped. Skin is without rash or lesion. Neurologic examination is brief but nonfocal. - Labs CBC & Chem 7: 07/03/24 06:40 07/03/24 06:40 Labs: Abnormal Lab Results - Last 24 Hours (Table) 07/02/24 07/02/24 07/02/24 Range/Units 11:28 12:39 16:58 RBC (4.30-5.90) m/uL Hgb (13.0-17.5) gm/dL Hct (39.0-53.0) % RDW (11.5-15.5) % Neutrophils # (1.3-7.7) k/uL Lymphocytes # (1.0-4.8) k/uL Sodium (137-145) mmol/L Potassium (3.5-5.1) mmol/L Chloride (98-107) mmol/L Carbon Dioxide (22-30) mmol/L BUN (9-20) mg/dL Creatinine (0.66-1.25) mg/dL Glucose (74-99) mg/dL POC Glucose (mg/dL) 224 H 270 H 295 H (70-110) mg/dL 07/02/24 07/03/24 07/03/24 Range/Units 20:21 02:20 06:32 RBC (4.30-5.90) m/uL Hgb (13.0-17.5) gm/dL Hct (39.0-53.0) % RDW (11.5-15.5) % Neutrophils # (1.3-7.7) k/uL Lymphocytes # (1.0-4.8) k/uL Sodium (137-145) mmol/L Potassium (3.5-5.1) mmol/L Chloride (98-107) mmol/L Carbon Dioxide (22-30) mmol/L BUN (9-20) mg/dL Creatinine (0.66-1.25) mg/dL Glucose (74-99) mg/dL POC Glucose (mg/dL) 291 H 181 H 143 H (70-110) mg/dL 07/03/24 07/03/24 07/03/24 Range/Units 06:40 06:40 11:05 RBC 3.68 L (4.30-5.90) m/uL Hgb 11.4 L (13.0-17.5) gm/dL Hct 36.5 L (39.0-53.0) % RDW 17.3 H (11.5-15.5) % Neutrophils # 8.7 H (1.3-7.7) k/uL Lymphocytes # 0.3 L (1.0-4.8) k/uL Sodium 130 L (137-145) mmol/L Potassium 5.5 H (3.5-5.1) mmol/L Chloride 94 L (98-107) mmol/L Carbon Dioxide 21 L (22-30) mmol/L BUN 105 H* (9-20) mg/dL Creatinine 4.88 H (0.66-1.25) mg/dL Glucose 129 H (74-99) mg/dL POC Glucose (mg/dL) 136 H (70-110) mg/dL Assessment and Plan Assessment: Acute exacerbation of diastolic congestive heart failure. Acute hypoxemic respiratory failure, secondary to above. Acute on chronic shortness of breath. Acute on chronic kidney disease now requiring renal replacement therapy to start today June 10, 2024. Hyperkalemia secondary to above. Acute on chronic anemia secondary to above. History of CAD with previous PCI. Diabetes mellitus with hyperglycemia. Hypertension. History of hyperlipidemia. Chronic cephalgia. History of UC with previous colectomy and ileostomy. History of prostate cancer status post chemoradiation. Chronic right heel wound, status post debridement on 05/28/2024. Obesity, with a BMI of 38.8 kg/m . Plan: Plan dated June 11, 2024. The patient is seen today in room 366. He continues on BiPAP, with settings of 12/6, and 100%. We are hoping that after hemodialysis today, the FiO2 can be reduced. The patient is receiving saline at 10 cc an hour. In addition, the patient continues on cefepime, and daptomycin. Currently, cultures are negative. All labs, x-rays, and medications are reviewed. 50 minutes was spent with this patient, including time spent interviewing the patient, and examining him, reviewing pertinent labs, x-rays, and medications, as well as discussing the diagnosis, treatment, and prognosis, with the patient, and the patient's family, as well as the bedside nurse. Plan dated July 01, 2024. The patient is seen today again in room 254. I saw him last back on June 11. The patient is currently on Airvo, 60 L/min, with an FiO2 of 70%. He does occasionally use BiPAP, with settings of 14/7, 60%. The patient was initially a dmitted back on June 04. He came back to the intensive care unit, on June 27. He continues on daptomycin, Zosyn, and fluconazole. The patient has hemodialysis, Monday, Monday, and Monday. The goal for hemodialysis today is to remove 2 L of fluid. The patient remains a full code. Additional recommendations and suggestions are forthcoming. The patient's overall prognosis remains poor, and over the course of this entire hospital stay for 27 days, he has made very little progress. We will continue to follow and make recommendations along the way. All labs, x-rays, and medications are reviewed. Prognosis is guarded. Dictation was produced using [employer] software. Please excuse any grammatical, word or spelling errors. Plan dated July 02, 2024. The patient was seen today in room 254. He continues on Airvo, with settings of 60 L/min, and FiO2 70%. The patient did spend some time with BiPAP, roughly 7 hours, with settings of 14/7 and an FiO2 of 60%. He is not receiving any IV fluids. The patient is undergoing hemodialysis today. The goal is to removal of 3 L. The patient is currently being evaluated for long-term acute care/specialized nursing facility. I had the opportunity to speak to the patient's , Sydnee, and gave her number different things to think about including CODE STATUS. She said he would never want to be on life support. I asked her to discuss that with him, and come up with a meeting on the minds. In addition, I told her that she would be more than welcome to take the patient elsewhere, if she thinks that he would benefit from a different facility such as [facility]. We also talked about CODE STATUS, and also talked about long-term acute care facility such as select specialty or specialized nursing facility. Additional recommendations and suggestions are forthcoming. All labs x-rays and medications are reviewed. Prognosis is guarded. Dictation was produced using [employer] software. Please excuse any grammatical, word or spelling errors. Plan dated July 03, 2024. The patient is seen today in room 254. He remains on Airvo. He does remain critically ill. He is undergoing hemodialysis, on a daily basis. He is not receiving any IV fluids. His Airvo settings of 40 L/min with an FiO2 of 50%. He has not used the BiPAP for the last 48 hours. Labs, x-rays, and all medications are reviewed. I did have a long conversation with his Sydnee yesterday about various options. He remains a full code. He will talk to her again today, to make some sort of a decision. He is leaning towards not being a full code patient. We will continue to follow and make recommendations. Prognosis is guarded. Dictation was produced using [employer] software. Please excuse any grammatical, word or spelling errors. Time with Patient: Greater than 30
--- NOTE | 2024-07-03 13:58 | P.PN ---
Subjective Interval History: Pleasant 73-year-old patient follows with Dr. Dennis. 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 Bales. April 26, [address] Bales: Following a non-ST relation CT: Patent stent to mid LAD. Late stent thrombosis of the second diagonal branch of the LAD. Severe disease involving the OM1 appears unchanged. Attempted balloon angioplasty performed to the second of diagonal branch with suboptimal results. Dose of Imdur was increased and Ranexa was added. Patient recently in the hospital from May 28 through May 31. Chronic headaches: MRI unremarkable. MR angio head and neck: MR angio head without contrast: No evidence of aneurysm or significant stenosis. Atrophic right A1 segment. origin of the right posterior cerebral artery.MRI of the brain nonspecific. Was seen by neurology Dr. Gay. Patient to follow-up outpatient Chronic right heel wound seen by Dr. Carpenter from vascular deep debridement was carried out. No need for antibiotics. Patient to follow-up with Dr. Jernigan at the wound center. Shortness of breath: Was seen by cardiology. Not for any further intervention. Patient doing well when discharged. Patient presented increased shortness of breath when at home. His pulse ox dropped out of the 80s. Increasing shortness of breath. Decreased appetite. No fever or chills. June 10: Using his BiPAP. Patient seen this morning. Later this afternoon. Right femoral vein dialysis catheter was placed by Dr. Carpenter from vascular for dialysis. Baseline some shortness of breath. Due for first dialysis today. Patient is right heel culture grew MRSA Proteus P Corynebacterium on May 29. Patient is on IV daptomycin and IV cefepime per ID. June 11: Patient seen this afternoon. On BiPAP. Getting hemodialysis. Remains on IV daptomycin IV Zosyn. Tired. Also getting IV iron. Patient really did not eat today. Because of BiPAP. Cut back Levemir to 26 units at night. DC scheduled NovoLog for now. June 12: Overflowing the ICU. Remains on BiPAP. 04/05/%. at the bedside. Remains on IV daptomycin and IV Zosyn. For dialysis today. X-ray continues shows infiltrates. Significantly hypoxic. N.p.o. June 13: ICU. Remains on BiPAP. 04/05/90% moderate take anything by mouth. Spoke to the nurse have TPN lipids ordered. Remains on IV daptomycin IV Zosyn. Chest x-ray continues to show diffuse infiltrates. Continues to be followed by cardiology pulmonary ID nephrology. June 14: ICU. Later this afternoon patient was put on Airvo. 60/60. Has some delirium. Remains on IV daptomycin and IV Zosyn. Had 2 L ultrafiltration yesterday. Patient getting daily dialysis for now. As patient is oliguric per nephrology Lasix has been held. TPN was ordered yesterday per the nurse culture that returned to feed the patient. Will see how that goes. Dietitian on the case. June 15: ICU. Patient be getting hypotensive. Some medications held back by cardiology. Hemodialysis done today. Patient remains on Airvo though at 50/50. at the bedside. Plans this afternoon to get him up in the chair. Remains on daptomycin and IV Zosyn. IV Lasix been discontinued. Patient tolerating some liquid diet. June 16: Patient moved to the ICU. Remains on Airvo. 45/45. at the bedside. Tolerating full liquids. Spoke to the about the morphine. His headaches are chronic. Use Fioricet as needed. Remains on IV daptomycin and IV Zosyn. IV Solu-Medrol. Amlodipine dose cut back. PT OT. June 17: On 3 S., telemetry floor. Getting hemodialysis today. Remains on IV daptomycin IV Zosyn. On full liquid diet. Advance to ground diet. Minimal urine output. DC fluid restriction. Awake communicating. Accu-Cheks running high. Increase Levemir to 28 units subcu twice daily. Seen by PT OT. Maximum assist. On Airvo 40/40. Cut back Solu-Medrol to every 12. June 18: On a recliner. 7 L nasal cannula. Decreased appetite. at the bedside. Accu-Chek in 200s. IJ PermCath placement pending. Encourage oral intake. Ordered incentive spirometry June 19: Patient was on 7 L nasal cannula yesterday. Patient back on Airvo today. 40 L. Due for hemodialysis today. Had perm dialysis catheter placed right IJ by Dr. Jayden today. Minimal intake today. Discussed with at the bedside. June 20: Recliner. High flow 15 L nasal cannula. at the bedside. Decreased oral intake.Tired. Hemodialysis today. June 21: Still decreased appetite. Remains on high flow 15 l nasal cannula. Remains on IV daptomycin IV Zosyn per ID. Being followed by multiple consultants spoke to the patient and . Encourage oral intake. June 22: Remains on 15 L high flow nasal cannula. at the bedside. Diet. Remains on IV daptomycin IV Zosyn. Decreased appetite. Will try ground diet. June 23: Monday to the bed. Ate a bit better according to the . Remains on 15 L nasal cannula. Oral candidiasis. Diflucan 200 mg x 1 today. Then 100 mg 3 times a week after each dialysis. Remains on daptomycin IV Zosyn per ID. Discussed with patient 06/24 I am resuming the care of the patient today He is sitting at the edge of the bed feels comfortable. Still requiring 15 units of oxygen, he states that he feels better than yesterday after he was started on IV Solu-Medrol 40 mg twice daily. At home he was not on oxygen Also he is on daptomycin and Diflucan. He is also on antibiotic for his right foot ulcer with dressing in place. No pain 06/25 Patient feels the same Oxygen requirements down from 15 down to 12 L/min His labs showing more hemoconcentration with leukocytosis 23K, hemoglobin 12.2 and platelet 128 all went up little bit. Creatinine 2.5. Sodium improved 132 He remains on Zosyn daptomycin and fluconazole and IV Solu-Medrol 40 mg twice daily 06/26 Patient is breathing quietly while he is sitting in bed. He is getting 11 L via nasal cannula in the morning, however later on it looks like his oxygen supply was increased. Patient denies any other new symptoms His sodium today was 129 and potassium elevated 6.6 and creatinine 4.3. Patient getting dialysis for hyperkalemia protocol. WBC went down to 11.8. Hemoglobin stable at 10.1. Platelet count 122. Remains on triple antibiotics with Diflucan, daptomycin and Zosyn. Also is on IV Solu-Medrol 40 mg twice daily. No more panic attack. Yesterday after rounding he developed panic attacks and improved with Xanax 06/27 Patient required more oxygen starting yesterday and today his saturation well on higher dose of oxygen 40 L/min with FiO2 of 66% Chest x-ray showing cardiomegaly, pulmonary vascular congestion and pleural effusion Currently patient torsemide 40 mg daily Also is getting hemodialysis yesterday and there is another dialysis going on for tomorrow Also he remains on IV Solu-Medrol 40 mg and broad-spectrum antibiotics as above 06/28 Since yesterday patient oxygen requirement started worsening significantly he was placed on high flow nasal cannula at 40 L with FiO2 of 60 to 66%. By the evening patient required to be placed on BiPAP and he was sent to the ICU. Repeat chest x-ray showing cardiomegaly with pulmonary vascular congestion. Echocardiogram from 05/29/2024 showing ejection fraction of 55 to 60%. Patient also undergoing hemodialysis. Creatinine increased today to 4.63. Remains on torsemide, IV Solu-Medrol antibiotics with Zosyn daptomycin and fluconazole 06/29--- patient was seen and examined today. Continues to require on and off BiPAP, currently on heated high flow oxygen, undergoing hemodialysis. Remains on daptomycin and Zosyn. Pulmonary, ID, nephrology following. On Diflucan. Patient is afebrile, heart rate 78, respiratory rate 17, blood pressure 130/61,'s on 50 L heated high flow oxygen. WBC 11.1, hemoglobin 9.2, platelet 97. Sodium 129 potassium 4.0 BUN 61 creatinine 3.57. 06/30--patient was seen and examined today. Afebrile, heart rate 80, respiratory rate 19, blood pressure 121/58, saturating 94% on 50 L heated high flow. WBCs 11.0, hemoglobin 9.5, platelet 113. Sodium 128 potassium 3.8, chloride 90, CO2 26, BUN 48, creatinine 2.58. Patient reported urine output today. Infectious disease following, currently on Zosyn and daptomycin. ICU following. Nephrology following, plan for hemodialysis tomorrow, challenge ultr afiltration. Currently on torsemide. Received IV iron. 07/01--- patient was seen and examined today. Remained afebrile, heart rate 88, respiratory rate 20, blood pressure 126/61, saturating 94%, on 60 L heated high flow. WBCs 13.3, hemoglobin 9.4, platelet 131. Sodium 127 potassium 4.2 chloride 92 CO2 23 BUN 90 creatinine 4.14 patient underwent hemodialysis today, nephrology following plan for daily hemodialysis for fluid overload. ICU following. Currently on Diflucan, daptomycin and Zosyn. Infectious disease consulted and following. 07/02--patient was seen and examined today. Afebrile, heart rate 98, respiratory rate 18, blood pressure 127/53. Remains on heated high flow with 50 L. Easily desaturates. WBCs 8.4, hemoglobin 10.0, platelet 141. Sodium 131 potassium 4.9 chloride 95 CO2 25 BUN 66 creatinine 3.19. Tolerated BiPAP overnight. ICU following. Poor prognosis. 07/03--- patient was seen and examined today. Family at bedside. Currently on 40 L/min with FiO2 of 50%, underwent hemodialysis today. Afebrile, heart rate 92, respiratory rate 20, blood pressure 113/95.WBCs 9.6, hemoglobin 11.4, platelet 191. Sodium 130, potassium 5.5, chloride 94, CO2 21, BUN 105, creatinine 4.88. Assessment and plan: Acute hypoxic respiratory failure: Bilateral pneumonia: Acute diastolic CHF: Acute COPD exacerbation: Right foot diabetic ulcer: MRSA culture positive: ROSELYN on CKD: Now requiring dialysis, right IJ permacath placed to 1025 Hyperkalemia: Resolved Oral candidiasis: Acute on chronic anemia: Anemia of chronic disease History of CAD with previous PCI Diabetes mellitus Hypertension Hyperlipidemia Chronic cephalgia Chronic ostomy History of prostate cancer status post chemo/radiation Chronic right heel wound status post debridement Obesity: Plan: Requires BiPAP, continue inhalers, bronchodilators, Solu-Medrol, pulmonary consulted Nephrology consulted, on hemodialysis, torsemide. Antibiotics: Daptomycin and Zosyn, status post debridement twice 06/07, 06/14 during hospitalization, infectious disease on board Diflucan Accu-Cheks, diabetic diet, Lantus, Humalog. Continue home meds including aspirin, Plavix, Norvasc, metoprolol, Imdur, Ranexa, Flomax. DVT prophylaxis: Subcutaneous heparin Disposition: LTAC Monitor vital signs and labs Labs and medication were reviewed. Continue same treatment. Further recommendations as per clinical course of the patient PHYSICAL EXAMINATION: GENERAL: The patient is A&O x3, NAD HEENT: EOMI, Sclerae anicteric, Moist Mucous membranes Neck: Supple, Non tender, No JVD PULMONARY: Dec breath souds B/L, No wheezing, + crackles. CARDIOVASCULAR: S1, S2 present. No murmurs, rubs, or gallops. ABDOMEN: Soft, nontender, nondistended, normoactive bowel sounds. No guarding or rebound tenderness. MUSCULOSKELETAL: + edema, No cyanosis. No clubbing. Normal ROM. Intact pe ripheral pulses. NEUROLOGICAL: CN 2-12 grossly intact. No FND Skin: No Rash REVIEW OF SYSTEMS: CONSTITUTIONAL: No fever or chills. CARDIOVASCULAR: No chest pain, palpitations or syncope. PULMONARY: Complains of shortness of breath. GASTROINTESTINAL: No nausea, vomiting, diarrhea, abdominal pain. : No Dysuria, urgency, frequency. Extremities: No edema. NEUROLOGICAL: No headaches, no weakness, or numbness Dictation was produced using [employer] dictation software. please excuse any gramma tical, word or spelling errors. Objective - Vital Signs Vital signs: Vital Signs Temp 97.5 F L 07/03/24 08:00 Pulse 93 07/03/24 11:24 Resp 22 07/03/24 11:24 BP 95/50 07/03/24 11:00 Pulse Ox 98 07/03/24 11:13 FiO2 60 07/03/24 11:14 Intake & Output 07/02/24 07/03/24 07/03/24 18:59 06:59 18:59 Intake Total 890 200 700 Output Total 5400 450 0 Balance -4510 -250 700 Weight 91.8 kg Intake: IV 200 Piperacillin-Tazobactam 3 100 .375 gm In Sodium Chloride 0.9% 100 ml @ 25 mls/hr IVPB Q12HR [facility] Rx #:[id number] Sodium Ferric Gluconat- 100 Sucrose 125 mg In Sodium Chloride 0.9% 100 ml @ 100 mls/hr IVPB DAILY [facility] Rx#:[id number] Intake, IV Titration 250 100 Amount DAPTOmycin 350 mg In 50 Sodium Chloride 0.9% 50 ml @ 100 mls/hr IVPB Q48H [facility] Rx#:[id number] Piperacillin-Tazobactam 3 100 100 .375 gm In Sodium Chloride 0.9% 100 ml @ 25 mls/hr IVPB Q12HR [facility] Rx #:[id number] Sodium Ferric Gluconat- 100 Sucrose 125 mg In Sodium Chloride 0.9% 100 ml @ 100 mls/hr IVPB DAILY [facility] Rx#:[id number] Oral 240 100 500 Hemodialysis 400 Output: Urine 0 200 0 Stool 250 Hemodialysis 2900 Hemodialysis Net Amount 2500 - Labs CBC & Chem 7: 07/03/24 06:40 07/03/24 06:40 Labs: Abnormal Lab Results - Last 24 Hours (Table) 07/02/24 07/02/24 07/03/24 Range/Units 16:58 20:21 02:20 RBC (4.30-5.90) m/uL Hgb (13.0-17.5) gm/dL Hct (39.0-53.0) % RDW (11.5-15.5) % Neutrophils # (1.3-7.7) k/uL Lymphocytes # (1.0-4.8) k/uL Sodium (137-145) mmol/L Potassium (3.5-5.1) mmol/L Chloride (98-107) mmol/L Carbon Dioxide (22-30) mmol/L BUN (9-20) mg/dL Creatinine (0.66-1.25) mg/dL Glucose (74-99) mg/dL POC Glucose (mg/dL) 295 H 291 H 181 H (70-110) mg/dL 07/03/24 07/03/24 07/03/24 Range/Units 06:32 06:40 06:40 RBC 3.68 L (4.30-5.90) m/uL Hgb 11.4 L (13.0-17.5) gm/dL Hct 36.5 L (39.0-53.0) % RDW 17.3 H (11.5-15.5) % Neutrophils # 8.7 H (1.3-7.7) k/uL Lymphocytes # 0.3 L (1.0-4.8) k/uL Sodium 130 L (137-145) mmol/L Potassium 5.5 H (3.5-5.1) mmol/L Chloride 94 L (98-107) mmol/L Carbon Dioxide 21 L (22-30) mmol/L BUN 105 H* (9-20) mg/dL Creatinine 4.88 H (0.66-1.25) mg/dL Glucose 129 H (74-99) mg/dL POC Glucose (mg/dL) 143 H (70-110) mg/dL 07/03/24 Range/Units 11:05 RBC (4.30-5.90) m/uL Hgb (13.0-17.5) gm/dL Hct (39.0-53.0) % RDW (11.5-15.5) % Neutrophils # (1.3-7.7) k/uL Lymphocytes # (1.0-4.8) k/uL Sodium (137-145) mmol/L Potassium (3.5-5.1) mmol/L Chloride (98-107) mmol/L Carbon Dioxide (22-30) mmol/L BUN (9-20) mg/dL Creatinine (0.66-1.25) mg/dL Glucose (74-99) mg/dL POC Glucose (mg/dL) 136 H (70-110) mg/dL
[2024-07-03 16:15] LABS: Glucose,Whole Blood 117 mg/dL (70-110)
[2024-07-03 20:43] LABS: Glucose,Whole Blood 96 mg/dL (70-110)
[2024-07-04 05:39] LABS: Glucose,Whole Blood 84 mg/dL (70-110)
[2024-07-04 05:46] LABS: Anisocytosis Slight; Basophils % (A) 0 %; Eosinophils % (A) 0 %; HCT 37.5 % (39.0-53.0); HGB 11.7 gm/dL (13.0-17.5); Hypochromasia Slight; Lymphocytes # (A) 0.3 k/uL (1.0-4.8); Lymphocytes % (A) 3 %; MCH 31.2 pg (25.0-35.0); MCHC 31.3 g/dL (31.0-37.0); MCV 99.8 fL (80.0-100.0); Macrocytosis Slight; Monocytes # (A) 0.4 k/uL (0-1.0); Monocytes % (A) 5 %; Neutrophils # (A) 8.1 k/uL (1.3-7.7); Neutrophils % (A) 92 %; Platelet Count 229 k/uL (150-450); RBC 3.76 m/uL (4.30-5.90); RDW 17.4 % (11.5-15.5); WBC 8.8 k/uL (3.8-10.6)
[2024-07-04 06:16] LABS: African American GFR (CKD) 19 (>60 ml/min/1.73 sqM); Anion Gap 15 mmol/L; Blood Urea Nitrogen 75 mg/dL (9-20); Calcium 8.7 mg/dL (8.4-10.2); Carbon Dioxide 19 mmol/L (22-30); Chloride 94 mmol/L (98-107); Glucose 89 mg/dL (74-99); Non-African American GFR(CKD) 16 (>60 ml/min/1.73 sqM); Potassium 5.3 mmol/L (3.5-5.1); Sodium 128 mmol/L (137-145)
[2024-07-04 06:55] LABS: Glucose,Whole Blood 89 mg/dL (70-110)
--- NOTE | 2024-07-04 07:40 | XR ---
EXAMINATION TYPE: XR chest 1V portable DATE OF EXAM: 07/04/2024 4:17 AM COMPARISON: Chest radiograph from one day prior. CLINICAL INDICATION: Male, 73 years old with history of f/u pulmonary edema; [facility] TECHNIQUE: XR chest 1V portable Frontal view of the chest. FINDINGS: Lungs/Pleura: Multifocal airspace opacities. No evidence of pneumothorax or pleural effusion. Pulmonary vascularity: Unremarkable. Heart/mediastinum: Cardiomediastinal silhouette is unremarkable. Musculoskeletal: No acute osseous pathology. Other findings: None Lines/Tubes: Right internal jugular central venous catheter with distal tip at the cavoatrial junction. IMPRESSION: 1. Similar pulmonary edema. 2. Stable support line [facility], , 07/04/2024 7:38 AM
--- NOTE | 2024-07-04 10:07 | P.PN ---
Subjective Progress Note Date: 07/04/24 Principal diagnosis: Respiratory failure. Patient is a 73-year-old male with past medical history significant for hypertension, hyperlipidemia, coronary artery disease with previous PCI/stenting, heart failure, chronic kidney disease, diabetes mellitus, chronic right heel wound, ulcerative colitis with previous colectomy and ileostomy. Of note, patient had a recent hospitalization late May and was just discharged 05/31/2024 for CHF exacerbation. Echocardiogram done during this hospitalization estimating a preserved left ventricular ejection fraction of 55 to 60%. Limited study, but no acute valvular abnormalities reported. Presented the emergency department on 06/04/2024 with a chief complaint of shortness of breath, mostly on exertion. Chest x-ray showing cardiomegaly, mild pulmonary vascular congestion, and a small pleural effusion on the left. NT proBNP e levated 2550. Currently receiving Lasix 80 mg twice daily. CBC: WBC count 10.2, hemoglobin 10.4, hematocrit 32.5, platelets 374. CMP: Sodium 135, potassium 4.6, chloride 101, serum bicarb 18, BUN 66, creatinine 2.71, glucose 139. Troponin is less than 0.012. Patient currently being evaluated on the general medical floor. Appears weak and deconditioned. He is resting in bed on 1 L/min nasal cannula. No respiratory distress noted. Complaining of a generalized headache, which he states is chronic. States that he has been short of breath on exertion for several months to almost 1 year. Particularly on exertion such as climbing stairs or walking to the bathroom. Denies history of COPD or asthma. Never tobacco smoker. Worked in an [email or web address] shop before he retired. Denies cough. Denies infectious-like symptoms. Current vital signs: Temperature 98 F, heart rate 78 bpm, blood pressure 145/54 mmHg, nontachypneic, SpO2 recorded at 91% on 1 L/min nasal cannula. The patient is seen today June 07, 2024 in follow-up on the regular medical floor. He is awake and alert in no acute distress. Sitting up at the bedside. Maintaining O2 saturations in the 90s on 3 L/min per nasal cannula. White count 9.8. Hemoglobin 8.9. Platelets 366. Sodium 140. Potassium 4.7. Bicarb 22. BUN 60. Creatinine 2.4. Glucose 97. He remains on DuoNeb and elations, Pulmicort inhalations. Lasix 80 mg IV every 12 hours. He is currently -1.1 L balance. Antibiotics in the form of cefepime and daptomycin for his diabetic ulcer of the right foot. X-ray revealed no osseous erosion or acute fracture. The patient is seen today June 08, 2024 in follow-up on the regular medical floor. He did have issues with worsening shortness of breath. He is currently on BiPAP 12/6 and 40% FiO2. White count 6.3. Hemoglobin 8.5. Platelets 357. Sodium 136. Potassium 5.8. Bicarb 21. BUN 64. Creatinine 2.4. Glucose 178. Chest x-ray continues to show evidence of congestive heart failure. He is currently on Lasix 80 mg IV every 12 hours. Continued on bronchodilators and steroids. Remains on antibiotics in the form of cefepime and daptomycin. The patient is seen today June 09, 2024 in follow-up on the regular medical floor. He is currently resting comfortably in bed. Awake and alert in no acute distress. Breathing easier today compared to yesterday. He is currently on BiPAP 12/6 and 40% FiO2. White count 10.1. Hemoglobin 8.0. Platelets 339. Sodium 136. Potassium 5.8. Bicarb 21. BUN 94. Creatinine 3.4. Glucose 234. He remains on DuoNeb and elations, Pulmicort inhalations, Solu-Medrol. Remains on IV diuretics. Remains on cefepime and daptomycin. Receiving Lokelma. The patient is seen today June 10, 2024 in follow-up on the regular medical floor. He is currently sitting up at the bedside. Awake and alert in no acute distress. He is requiring BiPAP support at 12/6 and 60% FiO2. Alternating with oxygen at 4 L/min per nasal cannula. He is continued on DuoNeb inhalations, Pulmicort inhalations, Solu-Medrol. He remains on antibiotics in the form of cefepime and daptomycin. Receiving iron supplement. Continued on IV diuretics. Continued on sodium bicarb tablets. White count 12.8. Hemoglobin 7.9. Platelets 335. Sodium 135. Potassium 5.2. Bicarb 23. BUN 118. Creatinine 4.1. Glucose 131. Plan is for placement of a hemodialysis catheter today and to receive hemodialysis today and tomorrow per nephrology Progress note dated 06/11/2024. The patient is seen in room 366. Currently, the patient is on BiPAP, with settings of 12/6, and 100%. The patient is undergoing hemodialysis today. The patient is getting saline at 10 cc an hour. The patient continues on cefepime, and daptomycin. Laboratory data today includes a sodium 137, potassium 4.9, chlorides 97, CO2 22, anion gap 18, BUN 108, and creatinine 4.1. Glucose is 106 . Calcium is 8.7. Chest x-ray from yesterday shows cardiomegaly, and diffuse infiltrates, likely related to underlying fluid overload. Patient was seen today on 06/24/2024, patient remains on 15 L high flow nasal cannula, surprisingly the patient tells me that he is feeling better, patient was started 2 days ago on dialysis/ultrafiltration, seems to be helping the patient significantly. His urine output is very marginal today. Patient remains on broad-spectrum antibiotics, he is being followed by many consultants including nephrology, patient remains on Zosyn and daptomycin. WBC count 17.7 hemoglobin 9.8 electrolytes showed low sodium of 130 potassium 6 BUN is 43 creatinine 2.97. To the right heel area for months now, and has been treated on outpatient setting for culture positive MRSA and positive for Proteus. Patient clearly has diabetic foot infection, and diabetic right foot ulcer. As well as stage III pressure ulcer of the right heel. Patient was seen today on 06/25/2024, patient is about the same, remains on hemodialysis, he is on 12 L high flow nasal cannula down from 15 yesterday. In spite of this the patient does not seem to be in any distress. Remains on broad-spectrum antibiotics, including Zosyn and daptomycin, patient was dialyzed yesterday, I am not certain if he is scheduled to have dialysis today. Continues to have leukocytosis with WBC of 23 hemoglobin 11.2 electrolytes are normal BUN is down to [address] of the chest from last week showed diffuse bilateral groundglass and airspace opacities throughout both lungs. And mild to moderate cardiomegaly. The findings are findings of either pulmonary edema or atypical pneumonia. Patient was seen today on 06/26/2024, patient is receiving hemodialysis today, his FiO2 requirement has gone up, today he is on Airvo at 80%. Patient is feeling better than expected considering his FiO2 requirement, chest x-ray continues show bilateral interstitial infiltrates/edema. WBC count is 11.8 hemoglobin is 10.1 potassium earlier today was 6.6 BUN 72 creatinine 4.3 and that being addressed by nephrology. Blood sugar was as high as 360 now it is 200. Patient was seen today on 06/27/2024, basically he is about the same, intermittently on Airvo and sometimes on BiPAP, still running low O2 saturation, chest x-ray discharge showing worsening interstitial edema, he felt better yesterday after his hemodialysis, today obviously he needs to go back on BiPAP. He was earlier on Airvo with FiO2 of 65% and 40 L flow, patient seemed to do much better when on BiPAP. Chest x-ray again is showing worsening vascular congestion andPulmonary edema, basic metabolic profile is normal bicarb is nor mal BUN is 59 creatinine 3.30. Patient was seen today on 06/28/2024, considering his overall condition, patient was transferred from the medical floor to the ICU mostly because of his complicated issues and could not be handled by nursing staff on the floor. Apparently the patient was having intermittent episodes of desaturations, requiring adjustment in his BiPAP and his Airvo. Finally patient was transferred to ICU, and basically we are maintaining the same treatment plan, hardly any change except while having dialysis today the patient was noted to have soft blood pressure, and I recommended the use of norepinephrine if needed. Otherwise patient is on BiPAP, 14/7/60%. The plan is to remove 3 L with hemodialysis today. Antibiotics ring remains on daptomycin and Zosyn patient remains marginal at best. Patient looks pale however his hemoglobin today is 9.6. The rest of the labs are unremarkable, his bicarb is 24 BUN is 92 creatinine 4.63. Seen today on 06/29/2024, remains in the ICU on BiPAP 14/7/60% he was earlier today on Airvo at 50 L and 70% FiO2. Patient is doing well, he normally does quite well after hemodialysis, he scheduled to have hemodialysis today. Platelets are coming down hence I recommended stopping subcu heparin for now. Patient remains on Zosyn empirically. No major changes noted in the last 24 hours, he is off norepinephrine not requiring any hemodynamic support. WBC count is 11.1 hemoglobin 9.2 electrolytes are normal except for sodium of 129 BU N is 61, creatinine 3.57 chest x-ray continues to show cardiomegaly and pulmonary edema with bilateral pleural effusions Patient was evaluated today on 06/30/2024, remains in the ICU, marginal at best. On BiPAP 14/7 FiO2 60%, and intermittently on Airvo at 50 L or 73% FiO2. O2 saturation is in the low 90s and high 80s most of the time. Patient remains on daptomycin remains on Zosyn, remains intermittently on hemodialysis, his last hemodialysis yesterday and 2 L were removed. Patient had debridement of his foot, and he had MRSA and Proteus in the right heel cultured. Patient has a right subclavian hemodialysis catheter. His oxygen requirement has been relatively high, unable to cut down on his FiO2. Chest x-ray continues show evidence of bilateral interstitial edema. And questionable underlying infiltrates. WBC count is 11 hemoglobin 9.5 sodium 128 potassium 3.8 BUN is 48 creatinine 2.58 Progress note dated July 01, 2024. 73-year-old male who was admitted back on June 04, where shortness of breath, and mental status changes. The patient has been in and out of the intensive care unit, coming back to the ICU, most recently on June 27. Currently, the patient is on Airvo, 60 L/min, with an FiO2 of 70%. He does also use BiPAP from time to time, with settings of 14/7 and 60%. He is getting hemodialysis, Monday, Monday, and Monday. At times, he is a bit confused. Dialysis plans today include removal of 2 L of fluid. The patient continues on daptomycin, Zosyn, and fluconazole. Current labs include a white count 13.3, hemoglobin 9.4, hematocrit 31.2, and a platelet count of 131,000. Sodium 127, potassium 4.2, chloride 92, CO2 23, BUN 90, creatinine 4.14. Glucose is 117. Calcium is 8.2. Chest x-ray shows cardiomegaly, and pulmonary vascular congestion, with pulmonary edema, bilateral pleural effusions. Progress note dated July 02, 2024. This is a 73-year-old male who was admitted back on June 04, with shortness of breath, mental status changes, acute kidney injury, and CHF. The patient has been in and out of the intensive care unit, most recently being readmitted on June 27. He remains on Airvo, with settings of 60 L/min and FiO2 of 70%. He did use BiPAP, for about 7 hours, with settings of 14/7 and 60%. He is not receiving any IV fluids. He is receiving hemodialysis today. The goal is a removal of 3 L. Current laboratory data reveals an white blood cell count of 8.4, hemoglobin 10, hematocrit 32.9, and a platelet count of 141,000. Sodium 131, potassium 4.9, chloride 95, CO2 25, anion gap 11, BUN 66, creatinine 3.19. Glucose is 224. Chest x-ray shows cardiomegaly, with pulmonary edema. Progress note dated July 03, 2024. 73-year-old male seen again today in room 254. The patient is currently on Airvo at 40 L/min with an FiO2 of 50%. He is not receiving any IV fluids. Currently, he is having daily hemodialysis. The goal today is to remove 2-1/2 L. He did use BiPAP a couple days ago, and we have not discontinued it from the room. BiPAP settings are 14/7, and 60%. Again he has not used it for the last 2 days. Current laboratory data includes a white count 9.6, hemoglobin 1.4, macro 36.5, and a normal platelet count. Sodium 130, potassium 5.5, chloride 94, CO2 21, anion gap 15, BUN 105, and creatinine 4.88. Glucose is 136. Calcium is 8.6. Chest x-ray again shows a pattern of CHF, cardiomegaly, and interstitial edema. Progress note dated July 04, 2024. 73-year-old male seen again in room 254. The patient continues to have severe hypoxemic respiratory failure. He is on Airvo, with settings of 40 L/min, and an FiO2 of 50%. He is not receiving any IV fluids. He will have hemodialysis today, and the goal is to remove 2 L. He has not used BiPAP for the last 2 days. The patient has decided to make himself a DO NOT RESUSCITATE patient. His chest x-ray is the same or slightly better. He remains on daptomycin, and Zosyn. Currently, white count 8.8, hemoglobin 11.7, hematocrit 37.5, and platelet count is normal. Sodium 128, potassium 5.3, chloride 94, CO2 19, anion gap 15, BUN 75, and creatinine 3.50. Glucose is 89. Calcium is 8.7. Chest x- ray as read by radiology, is unchanged. Objective - Vital Signs Vital signs: Vital Signs Temp 97.4 F L 07/04/24 08:00 Pulse 80 07/04/24 09:00 Resp 16 07/04/24 09:00 BP 117/59 07/04/24 09:00 Pulse Ox 95 07/04/24 09:00 FiO2 50 07/04/24 09:00 Intake & Output 07/03/24 07/04/24 07/04/24 18:59 06:59 18:59 Intake Total 1100 150 Output Total 3875 150 0 Balance -2775 0 0 Weight 93.3 kg Intake: IV 200 100 Piperacillin-Tazobactam 3 100 100 .375 gm In Sodium Chloride 0.9% 100 ml @ 25 mls/hr IVPB Q12HR JOSÉ Rx #:[id number] Sodium Ferric Gluconat- 100 Sucrose 125 mg In Sodium Chloride 0.9% 100 ml @ 100 mls/hr IVPB DAILY JOSÉ Rx#:[id number] Oral 500 50 Hemodialysis 400 Output: Urine 0 150 0 Stool 75 Hemodialysis 2100 Hemodialysis Net Amount 1700 - Exam No acute distress, currently on Airvo. HEENT examination is grossly unremarkable. Mucous membranes are moist. No oral lesions. Neck supple. Full range of motion. No adenopathy thyromegaly or neck vein distention. Cardiovascular examination reveals regular rhythm rate. S1-S2 normal. No S3 or S4. No discernible murmur noted. Heart sounds are distant. Lungs reveal scattered bilateral rhonchi. Some basilar crackles are noted. No wheezes. Breath sounds are equal bilaterally. Abdomen soft bowel sounds are heard. No masses or tenderness. Extremities are intact. No cyanosis clubbing or edema. Right foot is wrapped. Skin is without rash or lesion. Neurologic examination is brief but nonfocal. - Labs CBC & Chem 7: 07/04/24 05:11 07/04/24 05:11 Labs: Abnormal Lab Results - Last 24 Hours (Table) 07/03/24 07/03/24 07/04/24 Range/Units 11:05 16:14 05:11 RBC 3.76 L (4.30-5.90) m/uL Hgb 11.7 L (13.0-17.5) gm/dL Hct 37.5 L (39.0-53.0) % RDW 17.4 H (11.5-15.5) % Neutrophils # 8.1 H (1.3-7.7) k/uL Lymphocytes # 0.3 L (1.0-4.8) k/uL Sodium (137-145) mmol/L Potassium (3.5-5.1) mmol/L Chloride (98-107) mmol/L Carbon Dioxide (22-30) mmol/L BUN (9-20) mg/dL Creatinine (0.66-1.25) mg/dL POC Glucose (mg/dL) 136 H 117 H (70-110) mg/dL 07/04/24 Range/Units 05:11 RBC (4.30-5.90) m/uL Hgb (13.0-17.5) gm/dL Hct (39.0-53.0) % RDW (11.5-15.5) % Neutrophils # (1.3-7.7) k/uL Lymphocytes # (1.0-4.8) k/uL Sodium 128 L (137-145) mmol/L Potassium 5.3 H (3.5-5.1) mmol/L Chloride 94 L (98-107) mmol/L Carbon Dioxide 19 L (22-30) mmol/L BUN 75 H (9-20) mg/dL Creatinine 3.50 H (0.66-1.25) mg/dL POC Glucose (mg/dL) (70-110) mg/dL Assessment and Plan Assessment: Acute exacerbation of diastolic congestive heart failure. Acute hypoxemic respiratory failure, secondary to above. Acute on chronic shortness of breath. Acute on chronic kidney disease now requiring renal replacement therapy to start today June 10, 2024. Hyperkalemia secondary to above. Acute on chronic anemia secondary to above. History of CAD with previous PCI. Diabetes mellitus with hyperglycemia. Hypertension. History of hyperlipidemia. Chronic cephalgia. History of UC with previous colectomy and ileostomy. History of prostate cancer status post chemoradiation. Chronic right heel wound, status post debridement on 05/28/2024. Obesity, with a BMI of 38.8 kg/m . Plan: Plan dated June 11, 2024. The patient is seen today in room 366. He continues on BiPAP, with settings of 12/6, and 100%. We are hoping that after hemodialysis today, the FiO2 can be reduced. The patient is receiving saline at 10 cc an hour. In addition, the patient continues on cefepime, and daptomycin. Currently, cultures are negative. All labs, x-rays, and medications are reviewed. 50 minutes was spent with this patient, including time spent interviewing the patient, and examining him, reviewing pertinent labs, x-rays, and medications, as well as discussing the diagnosis, treatment, and prognosis, with the patient, and the patient's family, as well as the bedside nurse. Plan dated July 01, 2024. The patient is seen today again in room 254. I saw him last back on June 11. The patient is currently on Airvo, 60 L/min, with an FiO2 of 70%. He does occasionally use BiPAP, with settings of 14/7, 60%. The patient was initially admitted back on June 04. He came back to the intensive care unit, on June 27. He continues on daptomycin, Zosyn, and fluconazole. The patient has hemodialysis, Monday, Monday, and Monday. The goal for hemodialysis today is to remove 2 L of fluid. The patient remains a full code. Additional recommendations and suggestions are forthcoming. The patient's overall prognosis remains poor, and over the course of this entire hospital stay for 27 days, he has made very little progress. We will continue to follow and make recommendations along the way. All labs, x-rays, and medications are reviewed. Prognosis is guarded. Dictation was produced using [employer] dictation software. Please excuse any grammatical, word or spelling errors. Plan dated July 02, 2024. The patient was seen today in room 254. He continues on Airvo, with settings of 60 L/min, and FiO2 70%. The patient did spend some time with BiPAP, roughly 7 hours, with settings of 14/7 and an FiO2 of 60%. He is not receiving any IV fluids. The patient is undergoing hemodialysis today. The goal is to removal of 3 L. The patient is currently being evaluated for long-term acute care/specialized nursing facility. I had the opportunity to speak to the patient's , Sydnee, and gave her number different things to think about in cluding CODE STATUS. She said he would never want to be on life support. I asked her to discuss that with him, and come up with a meeting on the minds. In addition, I told her that she would be more than welcome to take the patient elsewhere, if she thinks that he would benefit from a different facility such as [facility]. We also talked about CODE STATUS, and also talked about long-term acute care facility such as [facility] specialty or specialized nursing facility. Additional recommendations and suggestions are forthcoming. All labs x-rays and medications are reviewed. Prognosis is guarded. Dictation was produced using [employer] software. Please excuse any grammatical, word or spelling errors. Plan dated July 03, 2024. The patient is seen today in room 254. He remains on Airvo. He does remain critically ill. He is undergoing hemodialysis, on a daily basis. He is not receiving any IV fluids. His Airvo settings of 40 L/min with an FiO2 of 50%. He has not used the BiPAP for the last 48 hours. Labs, x-rays, and all medications are reviewed. I did have a long conversation with his Sydnee yesterday about various options. He remains a full code. He will talk to her again today, to make some sort of a decision. He is leaning towards not being a full code patient. We will continue to follow and make recommendations. Prognosis is guarded. Dictation was produced using [employer] software. Please excuse any grammatical, word or spelling errors. Plan dated July 04, 2024. The patient is seen again in room 254. He remains on Airvo. He has severe hypoxemic respiratory failure. The patient will receive hemodialysis today. The goal is to remove 2 L. The patient would like to go to critical access hospital, but he cannot be receiving hemodialysis on a daily basis, only 3 days/week. Labs, x-rays, and medications are reviewed. Additional recommendations and suggestions are forthcoming. The patient is hoping to be discharged to a [facility] nursing facility, when his hemodialysis requirements, are reduced. All labs, x-rays, and medications are reviewed. The patient is overall prognosis remains very guarded. He has not made much progress since he has been here. Dictation was produced using [employer] software. Please excuse any grammatical, word or spelling errors. Time with Patient: Greater than 30
[2024-07-04 10:57] LABS: Glucose,Whole Blood 195 mg/dL (70-110)
--- NOTE | 2024-07-04 12:45 | P.PN ---
Subjective Patient is seen for follow-up for chronic kidney disease and acute kidney injury. Started hemodialysis on 06/10/2024 for worsening acute kidney injury and volume overload. Patient has been dialyzed almost on a daily basis due to volume overload and hypoxic respiratory failure. Patient is seen in the ICU. Oxygen requirements remain high. Slightly better today with FiO2 at 50% Seen on hemodialysis. Tolerating treatment well. Goal UF about 2 to 2.5 L today. Blood pressure has been low today and he has received midodrine. Objective - Vital Signs Vital signs: Vital Signs Temp 97.5 F L 07/04/24 12:20 Pulse 89 07/04/24 12:20 Resp 19 07/04/24 12:20 BP 103/72 07/04/24 12:20 Pulse Ox 94 L 07/04/24 12:20 FiO2 50 07/04/24 10:56 Intake & Output 07/03/24 07/04/24 07/04/24 18:59 06:59 18:59 Intake Total 1100 150 500 Output Total 3875 150 4500 Balance -2775 0 -4000 Weight 93.3 kg Intake: IV 200 100 Piperacillin-Tazobactam 3 100 100 .375 gm In Sodium Chloride 0.9% 100 ml @ 25 mls/hr IVPB Q12HR JOS[facility] Rx #:[id number] Sodium Ferric Gluconat- 100 Sucrose 125 mg In Sodium Chloride 0.9% 100 ml @ 100 mls/hr IVPB DAILY JOSÉ Rx#:[id number] Oral 500 50 Hemodialysis 400 500 Output: Urine 0 150 0 Stool 75 Hemodialysis 2100 2500 Hemodialysis Net Amount 1700 2000 - Exam Patient is awake, comfortable, no acute distress Examination of the heart S1 and S2 Examination of the lungs bilateral breath sounds are heard Abdomen is soft nontender Examination of lower extremities shows trace edema STRAIGHT EDGER exam grossly intact - Labs CBC & Chem 7: 07/04/24 05:11 07/04/24 05:11 Labs: Abnormal Lab Results - Last 24 Hours (Table) 07/03/24 07/04/24 07/04/24 Range/Units 16:14 05:11 05:11 RBC 3.76 L (4.30-5.90) m/uL Hgb 11.7 L (13.0-17.5) gm/dL Hct 37.5 L (39.0-53.0) % RDW 17.4 H (11.5-15.5) % Neutrophils # 8.1 H (1.3-7.7) k/uL Lymphocytes # 0.3 L (1.0-4.8) k/uL Sodium 128 L (137-145) mmol/L Potassium 5.3 H (3.5-5.1) mmol/L Chloride 94 L (98-107) mmol/L Carbon Dioxide 19 L (22-30) mmol/L BUN 75 H (9-20) mg/dL Creatinine 3.50 H (0.66-1.25) mg/dL POC Glucose (mg/dL) 117 H (70-110) mg/dL 07/04/24 Range/Units 10:55 RBC (4.30-5.90) m/uL Hgb (13.0-17.5) gm/dL Hct (39.0-53.0) % RDW (11.5-15.5) % Neutrophils # (1.3-7.7) k/uL Lymphocytes # (1.0-4.8) k/uL Sodium (137-145) mmol/L Potassium (3.5-5.1) mmol/L Chloride (98-107) mmol/L Carbon Dioxide (22-30) mmol/L BUN (9-20) mg/dL Creatinine (0.66-1.25) mg/dL POC Glucose (mg/dL) 195 H (70-110) mg/dL Assessment and Plan Assessment: 1. Acute kidney injury, nonoliguric, cardiorenal. UA is benign and ultrasound does not show any evidence of hydronephrosis. Started hemodialysis on 06/10/2024 for significant oliguric acute kidney injury. 2. Acute on chronic diastolic CHF 3. Volume overload, maintained on daily hemodialysis/UF treatments 4. Hypertension with CKD stage IV 5. Acute hypoxic respiratory failure secondary to CHF 6. Coronary artery disease with history of coronary stents 7. Metabolic acidosis, improved 8. Right heel wound status post debridement Plan: We will continue with daily dialysis/ultrafiltration for fluid overload. Encouraged increased oral intake. Consider other causes for respiratory failure
[2024-07-04] MEDS: INSULIN GLARGINE (LANTUS) 100 UNIT/ML SYR SQ SCH (12:52)
--- NOTE | 2024-07-04 13:12 | P.PN ---
Subjective Progress Note Date: 07/03/24 Principal diagnosis: Reason for follow-up is right heel diabetic foot ulcer with MRSA infection Patient is a 73-year-old male with a past medical history significant for diabetes mellitus hypertension hyperlipidemia osteomyelitis patient has been dealing with a chronic nonhealing wound to the right heel area for months now and is being treated in outpatient setting by Dr. Jernigan his instructional technology coordinator with recent outpatient culture positive for MRSA and is Proteus. On today's evaluation that is 07/03/2024,the patient denies any fever or any chills, patient is breathing slightly comfortably however still requiring high flow nasal cannula oxygen denies chest pain no cough no abdominal pain pain to the lower extremity. Patient white count is 9.6, creatinine 4.88 Objective - Vital Signs Vital signs: Vital Signs Temp 97.5 F L 07/03/24 08:00 Pulse 93 07/03/24 11:24 Resp 22 07/03/24 11:24 BP 95/50 07/03/24 11:00 Pulse Ox 98 07/03/24 11:13 FiO2 60 07/03/24 11:14 Intake & Output 07/02/24 07/03/24 07/03/24 18:59 06:59 18:59 Intake Total 890 200 600 Output Total 5400 450 0 Balance -4510 -250 600 Weight 91.8 kg Intake: IV 100 Sodium Ferric Gluconat- 100 Sucrose 125 mg In Sodium Chloride 0.9% 100 ml @ 100 mls/hr IVPB DAILY [facility] Rx#:[id number] Intake, IV Titration 250 100 Amount DAPTOmycin 350 mg In 50 Sodium Chloride 0.9% 50 ml @ 100 mls/hr IVPB Q48H [facility] Rx#:[id number] Piperacillin-Tazobactam 3 100 100 .375 gm In Sodium Chloride 0.9% 100 ml @ 25 mls/hr IVPB Q12HR [facility] Rx #:[id number] Sodium Ferric Gluconat- 100 Sucrose 125 mg In Sodium Chloride 0.9% 100 ml @ 100 mls/hr IVPB DAILY [facility] Rx#:[id number] Oral 240 100 500 Hemodialysis 400 Output: Urine 0 200 0 Stool 250 Hemodialysis 2900 Hemodialysis Net Amount 2500 - Exam GENERAL DESCRIPTION: An elderly male lying in bed in no distress RESPIRATORY SYSTEM: Unlabored breathing , decreased breath sounds at bases HEART: S1 S2 regular rate and rhythm , ABDOMEN: Soft , no tenderness EXTREMITIES: Right hand wound is currently dressed - Labs CBC & Chem 7: 07/04/24 05:11 07/04/24 05:11 Labs: Abnormal Lab Results - Last 24 Hours (Table) 07/02/24 07/02/24 07/02/24 Range/Units 12:39 16:58 20:21 RBC (4.30-5.90) m/uL Hgb (13.0-17.5) gm/dL Hct (39.0-53.0) % RDW (11.5-15.5) % Neutrophils # (1.3-7.7) k/uL Lymphocytes # (1.0-4.8) k/uL Sodium (137-145) mmol/L Potassium (3.5-5.1) mmol/L Chloride (98-107) mmol/L Carbon Dioxide (22-30) mmol/L BUN (9-20) mg/dL Creatinine (0.66-1.25) mg/dL Glucose (74-99) mg/dL POC Glucose (mg/dL) 270 H 295 H 291 H (70-110) mg/dL 07/03/24 07/03/24 07/03/24 Range/Units 02:20 06:32 06:40 RBC 3.68 L (4.30-5.90) m/uL Hgb 11.4 L (13.0-17.5) gm/dL Hct 36.5 L (39.0-53.0) % RDW 17.3 H (11.5-15.5) % Neutrophils # 8.7 H (1.3-7.7) k/uL Lymphocytes # 0.3 L (1.0-4.8) k/uL Sodium (137-145) mmol/L Potassium (3.5-5.1) mmol/L Chloride (98-107) mmol/L Carbon Dioxide (22-30) mmol/L BUN (9-20) mg/dL Creatinine (0.66-1.25) mg/dL Glucose (74-99) mg/dL POC Glucose (mg/dL) 181 H 143 H (70-110) mg/dL 07/03/24 07/03/24 Range/Units 06:40 11:05 RBC (4.30-5.90) m/uL Hgb (13.0-17.5) gm/dL Hct (39.0-53.0) % RDW (11.5-15.5) % Neutrophils # (1.3-7.7) k/uL Lymphocytes # (1.0-4.8) k/uL Sodium 130 L (137-145) mmol/L Potassium 5.5 H (3.5-5.1) mmol/L Chloride 94 L (98-107) mmol/L Carbon Dioxide 21 L (22-30) mmol/L BUN 105 H* (9-20) mg/dL Creatinine 4.88 H (0.66-1.25) mg/dL Glucose 129 H (74-99) mg/dL POC Glucose (mg/dL) 136 H (70-110) mg/dL Assessment and Plan (1) Diabetic infection of right foot Current Visit: Yes Status: Acute Code(s): E11.628 - TYPE 2 DIABETES MELLITUS WITH OTHER SKIN COMPLICATIONS; L08.9 - LOCAL INFECTION OF THE SKIN AND SUBCUTANEOUS TISSUE, UNSP SNOMED Code(s): 340985982 (2) MRSA (methicillin resistant staph aureus) culture positive Current Visit: Yes Status: Acute Code(s): Z22.322 - CARRIER OR SUSPECTED CARRIER OF METHICILLIN RESIS STAPH SNOMED Code(s): 100128881 (3) Diabetic ulcer of right foot Current Visit: No Status: Acute Code(s): E11.621 - TYPE 2 DIABETES MELLITUS WITH FOOT ULCER; L97.519 - NON-PRS CHRONIC ULCER OTH PRT RIGHT FOOT W UNSP SEVERITY SNOMED Code(s): 194583142 (4) Stage III pressure ulcer of right heel Current Visit: No Status: Acute Code(s): L89.613 - PRESSURE ULCER OF RIGHT HEEL, STAGE 3 SNOMED Code(s): 43276389068875 Plan: 1patient with a chronic nonhealing wound to the right heel which he has for couple of months the wound looks deep with a recent culture positive for Proteus and MRSA concerning for wound infection and question for possible deeper infection such as osteomyelitis as wound has been there for couple of months now 2- -patient has been evaluated by Dr. Carpenter and did have surgical debridement completed on 06/07/2024 and did have a further debridement at the bedside by his instructional technology coordinator on 06/14/2024 and has been repeat debridement done on 07/02/2024 4-patient white count has normalized, to continue with Zosyn daptomycin and monitor clinical course closely Dictation was produced using [employer] dictation software. please excuse any grammatical, word or spelling errors.
--- NOTE | 2024-07-04 13:13 | P.PN ---
Subjective Progress Note Date: 07/04/24 Principal diagnosis: Reason for follow-up is right heel diabetic foot ulcer with MRSA infection Patient is a 73-year-old male with a past medical history significant for diabetes mellitus hypertension hyperlipidemia osteomyelitis patient has been dealing with a chronic nonhealing wound to the right heel area for months now and is being treated in outpatient setting by Dr. Jernigan his security officer supervisor with recent outpatient culture positive for MRSA and is Proteus. On today's evaluation that is 07/04/2024 the patient continues to be afebrile still requiring high flow nasal cannula oxygen to maintain his O2 sats complaining of slightly more shortness of breath today but no chest pain no cough no abdominal pain or pain to the right heel wound area. Patient white count is 8.8, creatinine 3.50 Objective - Vital Signs Vital signs: Vital Signs Temp 97.5 F L 07/04/24 12:20 Pulse 89 07/04/24 12:20 Resp 19 07/04/24 12:20 BP 103/72 07/04/24 12:20 Pulse Ox 94 L 07/04/24 12:20 FiO2 50 07/04/24 12:00 Intake & Output 07/03/24 07/04/24 07/04/24 18:59 06:59 18:59 Intake Total 1100 150 500 Output Total 3875 150 4500 Balance -2775 0 -4000 Weight 93.3 kg Intake: IV 200 100 Piperacillin-Tazobactam 3 100 100 .375 gm In Sodium Chloride 0.9% 100 ml @ 25 mls/hr IVPB Q12HR [facility] Rx #:[id number] Sodium Ferric Gluconat- 100 Sucrose 125 mg In Sodium Chloride 0.9% 100 ml @ 100 mls/hr IVPB DAILY [facility] Rx#:[id number] Oral 500 50 Hemodialysis 400 500 Output: Urine 0 150 0 Stool 75 Hemodialysis 2100 2500 Hemodialysis Net Amount 1700 2000 - Exam GENERAL DESCRIPTION: An elderly male lying in bed in no distress RESPIRATORY SYSTEM: Unlabored breathing , decreased breath sounds at bases HEART: S1 S2 regular rate and rhythm , ABDOMEN: Soft , no tenderness EXTREMITIES: Right hand wound is currently dressed - Labs CBC & Chem 7: 07/04/24 05:11 07/04/24 05:11 Labs: Abnormal Lab Results - Last 24 Hours (Table) 07/03/24 07/04/24 07/04/24 Range/Units 16:14 05:11 05:11 RBC 3.76 L (4.30-5.90) m/uL Hgb 11.7 L (13.0-17.5) gm/dL Hct 37.5 L (39.0-53.0) % RDW 17.4 H (11.5-15.5) % Neutrophils # 8.1 H (1.3-7.7) k/uL Lymphocytes # 0.3 L (1.0-4.8) k/uL Sodium 128 L (137-145) mmol/L Potassium 5.3 H (3.5-5.1) mmol/L Chloride 94 L (98-107) mmol/L Carbon Dioxide 19 L (22-30) mmol/L BUN 75 H (9-20) mg/dL Creatinine 3.50 H (0.66-1.25) mg/dL POC Glucose (mg/dL) 117 H (70-110) mg/dL 07/04/24 Range/Units 10:55 RBC (4.30-5.90) m/uL Hgb (13.0-17.5) gm/dL Hct (39.0-53.0) % RDW (11.5-15.5) % Neutrophils # (1.3-7.7) k/uL Lymphocytes # (1.0-4.8) k/uL Sodium (137-145) mmol/L Potassium (3.5-5.1) mmol/L Chloride (98-107) mmol/L Carbon Dioxide (22-30) mmol/L BUN (9-20) mg/dL Creatinine (0.66-1.25) mg/dL POC Glucose (mg/dL) 195 H (70-110) mg/dL Assessment and Plan (1) Diabetic infection of right foot Current Visit: Yes Status: Acute Code(s): E11.628 - TYPE 2 DIABETES MELLITUS WITH OTHER SKIN COMPLICATIONS; L08.9 - LOCAL INFECTION OF THE SKIN AND SUBCUTANEOUS TISSUE, UNSP SNOMED Code(s): 064190825 (2) MRSA (methicillin resistant staph aureus) culture positive Current Visit: Yes Status: Acute Code(s): Z22.322 - CARRIER OR SUSPECTED CARRIER OF METHICILLIN RESIS STAPH SNOMED Code(s): 021377138 (3) Diabetic ulcer of right foot Current Visit: No Status: Acute Code(s): E11.621 - TYPE 2 DIABETES MELLITUS WITH FOOT ULCER; L97.519 - NON-PRS CHRONIC ULCER OTH PRT RIGHT FOOT W UNSP SEVERITY SNOMED Code(s): 589387249 (4) Stage III pressure ulcer of right heel Current Visit: No Status: Acute Code(s): L89.613 - PRESSURE ULCER OF RIGHT HEEL, STAGE 3 SNOMED Code(s): 52760880217221 Plan: 1patient with a chronic nonhealing wound to the right heel which he has for couple of months the wound looks deep with a recent culture positive for Proteus and MRSA concerning for wound infection and question for possible deeper infection such as osteomyelitis as wound has been there for couple of months now 2- -patient has been evaluated by Dr. Carpenter and did have surgical debridement completed on 06/07/2024 and did have a further debridement at the bedside by his security officer supervisor on 06/14/2024 and has been repeat debridement done on 07/02/2024 4-patient has been afebrile and white count has normalized, currently being treated with Zosyn daptomycin for right heel diabetic foot infection and monitor clinical course closely Dictation was produced using [employer] dictation software. please excuse any grammatical, word or spelling errors. Time with Patient: Less than 30
--- NOTE | 2024-07-04 13:45 | P.PN ---
Subjective Interval History: Pleasant 73-year-old patient follows with Dr. Dennis. [employer] Administrator: Dr. Bales Chronic medical conditions include hypertension, hyperlipidemia, type 2 diabetes, mood disorder, and CAD , ostomy for 25 years, July 2023 stent to the LAD and second diagonal branch by Dr. Bales. April 26, [address] Bales: Following a non-ST relation PA: Patent stent to mid LAD. Late stent thrombosis of the second diagonal branch of the LAD. Severe disease involving the OM1 appears unchanged. Attempted balloon angioplasty performed to the second of diagonal branch with suboptimal results. Dose of Imdur was increased and Ranexa was added. Patient recently in the hospital from May 28 through May 31. Chronic headaches: MRI unremarkable. MR angio head and neck: MR angio head without contrast: No evidence of aneurysm or significant stenosis. Atrophic right A1 segment. origin of the right posterior cerebral artery.MRI of the brain nonspecific. Was seen by neurology Dr. Gay. Patient to follow-up outpatient Chronic right heel wound seen by Dr. Carpenter from vascular deep debridement was carried out. No need for antibiotics. Patient to follow-up with Dr. Jernigan at the wound center. Shortness of breath: Was seen by cardiology. Not for any further intervention. Patient doing well when discharged. Patient presented increased shortness of breath when at home. His pulse ox dropped out of the 80s. Increasing shortness of breath. Decreased appetite. No fever or chills. June 10: Using his BiPAP. Patient seen this morning. Later this afternoon. Right femoral vein dialysis catheter was placed by Dr. Carpenter from vascular for dialysis. Baseline some shortness of breath. Due for first dialysis today. Patient is right heel culture grew MRSA Proteus P Corynebacterium on May 29. Patient is on IV daptomycin and IV cefepime per ID. June 11: Patient seen this afternoon. On BiPAP. Getting hemodialysis. Remains on IV daptomycin IV Zosyn. Tired. Also getting IV iron. Patient really did not eat today. Because of BiPAP. Cut back Levemir to 26 units at night. DC scheduled NovoLog for now. June 12: Overflowing the ICU. Remains on BiPAP. 04/05/%. at the bedside. Remains on IV daptomycin and IV Zosyn. For dialysis today. X-ray continues shows infiltrates. Significantly hypoxic. N.p.o. June 13: ICU. Remains on BiPAP. 04/05/90% moderate take anything by mouth. Spoke to the nurse have TPN lipids ordered. Remains on IV daptomycin IV Zosyn. Chest x-ray continues to show diffuse infiltrates. Continues to be followed by cardiology pulmonary ID nephrology. June 14: ICU. Later this afternoon patient was put on Airvo. 60/60. Has some delirium. Remains on IV daptomycin and IV Zosyn. Had 2 L ultrafiltration yesterday. Patient getting daily dialysis for now. As patient is oliguric per nephrology Lasix has been held. TPN was ordered yesterday per the nurse culture that returned to feed the patient. Will see how that goes. Dietitian on the case. June 15: ICU. Patient be getting hypotensive. Some medications held back by cardiology. Hemodialysis done today. Patient remains on Airvo though at 50/50. at the bedside. Plans this afternoon to get him up in the chair. Remains on daptomycin and IV Zosyn. IV Lasix been discontinued. Patient tolerating some liquid diet. June 16: Patient moved to the ICU. Remains on Airvo. 45/45. at the bedside. Tolerating full liquids. Spoke to the about the morphine. His headaches are chronic. Use Fioricet as needed. Remains on IV daptomycin and IV Zosyn. IV Solu-Medrol. Amlodipine dose cut back. PT OT. June 17: On 3 S., telemetry floor. Getting hemodialysis today. Remains on IV daptomycin IV Zosyn. On full liquid diet. Advance to ground diet. Minimal urine output. DC fluid restriction. Awake communicating. Accu-Cheks running high. Increase Levemir to 28 units subcu twice daily. Seen by PT OT. Maximum assist. On Airvo 40/40. Cut back Solu-Medrol to every 12. June 18: On a recliner. 7 L nasal cannula. Decreased appetite. at the bedside. Accu-Chek in 200s. IJ PermCath placement pending. Encourage oral intake. Ordered incentive spirometry June 19: Patient was on 7 L nasal cannula yesterday. Patient back on Airvo today. 40 L. Due for hemodialysis today. Had perm dialysis catheter placed right IJ by Dr. Jayden today. Minimal intake today. Discussed with at the bedside. June 20: Recliner. High flow 15 L nasal cannula. at the bedside. Decreased oral intake.Tired. Hemodialysis today. June 21: Still decreased appetite. Remains on high flow 15 l nasal cannula. Remains on IV daptomycin IV Zosyn per ID. Being followed by multiple consultants spoke to the patient and . Encourage oral intake. June 22: Remains on 15 L high flow nasal cannula. at the bedside. Diet. Remains on IV daptomycin IV Zosyn. Decreased appetite. Will try ground diet. June 23: Monday to the bed. Ate a bit better according to the . Remains on 15 L nasal cannula. Oral candidiasis. Diflucan 200 mg x 1 today. Then 100 mg 3 times a week after each dialysis. Remains on daptomycin IV Zosyn per ID. Discussed with patient 06/24 I am resuming the care of the patient today He is sitting at the edge of the bed feels comfortable. Still requiring 15 units of oxygen, he states that he feels better than yesterday after he was started on IV Solu-Medrol 40 mg twice daily. At home he was not on oxygen Also he is on daptomycin and Diflucan. He is also on antibiotic for his right foot ulcer with dressing in place. No pain 06/25 Patient feels the same Oxygen requirements down from 15 down to 12 L/min His labs showing more hemoconcentration with leukocytosis 23K, hemoglobin 12.2 and platelet 128 all went up little bit. Creatinine 2.5. Sodium improved 132 He remains on Zosyn daptomycin and fluconazole and IV Solu-Medrol 40 mg twice daily 06/26 Patient is breathing quietly while he is sitting in bed. He is getting 11 L via nasal cannula in the morning, however later on it looks like his oxygen supply was increased. Patient denies any other new symptoms His sodium today was 129 and potassium elevated 6.6 and creatinine 4.3. Patient getting dialysis for hyperkalemia protocol. WBC went down to 11.8. Hemoglobin stable at 10.1. Platelet count 122. Remains on triple antibiotics with Diflucan, daptomycin and Zosyn. Also is on IV Solu-Medrol 40 mg twice daily. No more panic attack. Yesterday after rounding he developed panic attacks and improved with Xanax 06/27 Patient required more oxygen starting yesterday and today his saturation well on higher dose of oxygen 40 L/min with FiO2 of 66% Chest x-ray showing cardiomegaly, pulmonary vascular congestion and pleural effusion Currently patient torsemide 40 mg daily Also is getting hemodialysis yesterday and there is another dialysis going on for tomorrow Also he remains on IV Solu-Medrol 40 mg and broad-spectrum antibiotics as above 06/28 Since yesterday patient oxygen requirement started worsening significantly he was placed on high flow nasal cannula at 40 L with FiO2 of 60 to 66%. By the evening patient required to be placed on BiPAP and he was sent to the ICU. Repeat chest x-ray showing cardiomegaly with pulmonary vascular congestion. Echocardiogram from 05/29/2024 showing ejection fraction of 55 to 60%. Patient also undergoing hemodialysis. Creatinine increased today to 4.63. Remains on torsemide, IV Solu-Medrol antibiotics with Zosyn daptomycin and fluconazole 06/29--- patient was seen and examined today. Continues to require on and off BiPAP, currently on heated high flow oxygen, undergoing hemodialysis. Remains on daptomycin and Zosyn. Pulmonary, ID, nephrology following. On Diflucan. Patient is afebrile, heart rate 78, respiratory rate 17, blood pressure 130/61,'s on 50 L heated high flow oxygen. WBC 11.1, hemoglobin 9.2, platelet 97. Sodium 129 potassium 4.0 BUN 61 creatinine 3.57. 06/30--patient was seen and examined today. Afebrile, heart rate 80, respiratory rate 19, blood pressure 121/58, saturating 94% on 50 L heated high flow. WBCs 11.0, hemoglobin 9.5, platelet 113. Sodium 128 potassium 3.8, chloride 90, CO2 26, BUN 48, creatinine 2.58. Patient reported urine output today. Infectious disease following, currently on Zosyn and daptomycin. ICU following. Nephrology following, plan for hemodialysis tomorrow, challenge ultr afiltration. Currently on torsemide. Received IV iron. 07/01--- patient was seen and examined today. Remained afebrile, heart rate 88, respiratory rate 20, blood pressure 126/61, saturating 94%, on 60 L heated high flow. WBCs 13.3, hemoglobin 9.4, platelet 131. Sodium 127 potassium 4.2 chloride 92 CO2 23 BUN 90 creatinine 4.14 patient underwent hemodialysis today, nephrology following plan for daily hemodialysis for fluid overload. ICU following. Currently on Diflucan, daptomycin and Zosyn. Infectious disease consulted and following. 07/02--patient was seen and examined today. Afebrile, heart rate 98, respiratory rate 18, blood pressure 127/53. Remains on heated high flow with 50 L. Easily desaturates. WBCs 8.4, hemoglobin 10.0, platelet 141. Sodium 131 potassium 4.9 chloride 95 CO2 25 BUN 66 creatinine 3.19. Tolerated BiPAP overnight. ICU following. Poor prognosis. 07/03--- patient was seen and examined today. Family at bedside. Currently on 40 L/min with FiO2 of 50%, underwent hemodialysis today. Afebrile, heart rate 92, respiratory rate 20, blood pressure 113/95.WBCs 9.6, hemoglobin 11.4, platelet 191. Sodium 130, potassium 5.5, chloride 94, CO2 21, BUN 105, creatinine 4.88. patient was seen and examined today. Patient continues to require 40 L oxygen, with FiO2 50%. Patient underwent hemodialysis with 2 L fluid removal today. Discussed with nephrology, plan for daily hemodialysis until Monday. Chest x-ray showed same pulmonary venous congestion. Currently on daptomycin and Zosyn. WBCs 8.8, hemoglobin 11.7, platelet 229. Sodium 128 potassium 5.3 chloride 94 BUN 75 creatinine 3.50. Assessment and plan: Acute hypoxic respiratory failure: Bilateral pneumonia: Acute diastolic CHF: Acute COPD exacerbation: Right foot diabetic ulcer: MRSA culture positive: ROSELYN on CKD: Now requiring dialysis, right IJ permacath placed to 1025 Hyperkalemia: Resolved Oral candidiasis: Acute on chronic anemia: Anemia of chronic disease History of CAD with previous PCI Diabetes mellitus Hypertension Hyperlipidemia Chronic cephalgia Chronic ostomy History of prostate cancer status post chemo/radiation Chronic right heel wound status post debridement Obesity: Plan: Requires BiPAP, continue inhalers, bronchodilators, Solu-Medrol, pulmonary consulted Nephrology consulted, on hemodialysis, torsemide. Antibiotics: Daptomycin and Zosyn, status post debridement twice 06/07, 06/14 during hospitalization, infectious disease on board Diflucan Accu-Cheks, diabetic diet, Lantus, Humalog. Continue home meds including aspirin, Plavix, Norvasc, metoprolol, Imdur, Ranexa, Flomax. DVT prophylaxis: Subcutaneous heparin Disposition: LTAC Monitor vital signs and labs Labs and medication were reviewed. Continue same treatment. Further recommendations as per clinical course of the patient PHYSICAL EXAMINATION: GENERAL: The patient is A&O x3, NAD HEENT: EOMI, Sclerae anicteric, Moist Mucous membranes Neck: Supple, Non tender, No JVD PULMONARY: Dec breath souds B/L, No wheezing, + crackles. CARDIOVASCULAR: S1, S2 present. No murmurs, rubs, or gallops. ABDOMEN: Soft, nontender, nondistended, normoactive bowel sounds. No guarding or rebound tenderness. MUSCULOSKELETAL: + edema, No cyanosis. No clubbing. Normal ROM. Intact peripheral pulses. NEUROLOGICAL: CN 2-12 grossly intact. No FND Skin: No Rash REVIEW OF SYSTEMS: CONSTITUTIONAL: No fever or chills. CARDIOVASCULAR: No chest pain, palpitations or syncope. PULMONARY: Complains of shortness of breath. GASTROINTESTINAL: No nausea, vomiting, diarrhea, abdominal pain. : No Dysuria, urgency, frequency. Extremities: No edema. NEUROLOGICAL: No headaches, no weakness, or numbness Dictation was produced using [employer] dictation software. please excuse any grammatical, word or spelling errors. Objective - Vital Signs Vital signs: Vital Signs Temp 97.5 F L 07/04/24 12:20 Pulse 89 07/04/24 12:20 Resp 19 07/04/24 12:20 BP 103/72 07/04/24 12:20 Pulse Ox 94 L 07/04/24 12:20 FiO2 50 07/04/24 12:00 Intake & Output 07/03/24 07/04/24 07/04/24 18:59 06:59 18:59 Intake Total 1100 150 500 Output Total 3875 150 4500 Balance -2775 0 -4000 Weight 93.3 kg Intake: IV 200 100 Piperacillin-Tazobactam 3 100 100 .375 gm In Sodium Chloride 0.9% 100 ml @ 25 mls/hr IVPB Q12HR [facility] Rx #:[id number] Sodium Ferric Gluconat- 100 Sucrose 125 mg In Sodium Chloride 0.9% 100 ml @ 100 mls/hr IVPB DAILY [facility] Rx#:[id number] Oral 500 50 Hemodialysis 400 500 Output: Urine 0 150 0 Stool 75 Hemodialysis 2100 2500 Hemodialysis Net Amount 1700 1999 - Labs CBC & Chem 7: 07/04/24 05:11 07/04/24 05:11 Labs: Abnormal Lab Results - Last 24 Hours (Table) 07/03/24 07/04/24 07/04/24 Range/Units 16:14 05:11 05:11 RBC 3.76 L (4.30-5.90) m/uL Hgb 11.7 L (13.0-17.5) gm/dL Hct 37.5 L (39.0-53.0) % RDW 17.4 H (11.5-15.5) % Neutrophils # 8.1 H (1.3-7.7) k/uL Lymphocytes # 0.3 L (1.0-4.8) k/uL Sodium 128 L (137-145) mmol/L Potassium 5.3 H (3.5-5.1) mmol/L Chloride 94 L (98-107) mmol/L Carbon Dioxide 19 L (22-30) mmol/L BUN 75 H (9-20) mg/dL Creatinine 3.50 H (0.66-1.25) mg/dL POC Glucose (mg/dL) 117 H (70-110) mg/dL 07/04/24 Range/Units 10:55 RBC (4.30-5.90) m/uL Hgb (13.0-17.5) gm/dL Hct (39.0-53.0) % RDW (11.5-15.5) % Neutrophils # (1.3-7.7) k/uL Lymphocytes # (1.0-4.8) k/uL Sodium (137-145) mmol/L Potassium (3.5-5.1) mmol/L Chloride (98-107) mmol/L Carbon Dioxide (22-30) mmol/L BUN (9-20) mg/dL Creatinine (0.66-1.25) mg/dL POC Glucose (mg/dL) 195 H (70-110) mg/dL
[2024-07-04 16:02] LABS: Glucose,Whole Blood 309 mg/dL (70-110)
[2024-07-04 16:05] LABS: Glucose,Whole Blood 367 mg/dL (70-110)
[2024-07-04 20:05] LABS: Glucose,Whole Blood 305 mg/dL (70-110)
[2024-07-04] MEDS: PIPERACILLIN-TAZOBACTAM 3.375 GM in SODIUM CHLORIDE 0.9% 100 ML IVPB SCH (20:23)
[2024-07-05 04:48] LABS: Anisocytosis Slight; Basophils % (A) 0 %; Eosinophils % (A) 0 %; HCT 43.4 % (39.0-53.0); HGB 12.9 gm/dL (13.0-17.5); Hypochromasia Marked; Lymphocytes # (A) 0.4 k/uL (1.0-4.8); Lymphocytes % (A) 3 %; MCH 30.7 pg (25.0-35.0); MCHC 29.7 g/dL (31.0-37.0); MCV 103.2 fL (80.0-100.0); Macrocytosis Moderate; Mean Platelet Volume 8.8; Monocytes # (A) 0.7 k/uL (0-1.0); Monocytes % (A) 6 %; Neutrophils % (A) 89 %; Platelet Count 281 k/uL (150-450); RBC 4.21 m/uL (4.30-5.90); RDW 17.1 % (11.5-15.5); WBC 10.1 k/uL (3.8-10.6)
[2024-07-05 05:08] LABS: African American GFR (CKD) 11 (>60 ml/min/1.73 sqM); Anion Gap 22 mmol/L; Calcium 8.9 mg/dL (8.4-10.2); Carbon Dioxide 18 mmol/L (22-30); Chloride 92 mmol/L (98-107); Glucose 154 mg/dL (74-99); Non-African American GFR(CKD) 10 (>60 ml/min/1.73 sqM); Sodium 132 mmol/L (137-145)
[2024-07-05 05:37] LABS: Blood Urea Nitrogen 116 mg/dL (9-20)
[2024-07-05 06:24] LABS: Glucose,Whole Blood 151 mg/dL (70-110)
--- NOTE | 2024-07-05 08:08 | XR ---
EXAMINATION TYPE: XR chest 1V portable DATE OF EXAM: 07/05/2024 5:18 AM COMPARISON: Multiple radiographs, with the most recent on 07/04/2024. TECHNIQUE: XR chest 1V portable Portable AP radiograph of the chest. CLINICAL INDICATION:Male, 73 years old with history of Airvo vs BiPap/CHF; FINDINGS: Lungs/Pleura: No pneumothorax. Small left pleural effusion. Diffuse interstitial prominence. Heart/mediastinum: Cardiomediastinal silhouette is enlarged and stable. Musculoskeletal: No acute osseous pathology. Multilevel osteophytosis of the spine. Other findings: None Lines/Tubes: Stable right IJ dual-lumen hemodialysis catheter distal tip terminating at the superior cavoatrial ju nction. IMPRESSION: Similar diffuse interstitial prominence with small left pleural effusion suggesting CHF exacerbation/ volume overload. [facility], , 07/05/2024 8:06 AM
[2024-07-05 09:43] LABS: Glucose,Whole Blood 149 mg/dL (70-110)
--- NOTE | 2024-07-05 10:40 | P.PN ---
Subjective Patient is seen for follow-up for chronic kidney disease and acute kidney injury. Started hemodialysis on 06/10/2024 for worsening acute kidney injury and volume overload. Patient has been dialyzed almost on a daily basis due to volume overload and hypoxic respiratory failure. Patient is seen in the ICU. Seen on hemodialysis today. Blood pressure dropped significantly in the 50s and patient was given a fluid bolus. He was eventually taken off of the machine as he continued to remain hypotensive. FiO2 at 50% today Objective - Vital Signs Vital signs: Vital Signs Temp 97.4 F L 07/05/24 10:17 Pulse 87 07/05/24 10:17 Resp 22 07/05/24 10:17 BP 89/57 07/05/24 10:17 Pulse Ox 88 L 07/05/24 10:00 FiO2 50 07/05/24 07:29 Intake & Output 07/04/24 07/05/24 07/05/24 18:59 06:59 18:59 Intake Total 550 100 760 Output Total 4600 50 700 Balance -4050 50 60 Weight 89.386 kg 89.386 kg Intake: IV 50 100 DAPTOmycin 350 mg In 50 Sodium Chloride 0.9% 50 ml @ 100 mls/hr IVPB Q48H JOSÉ Rx#:[id number] Piperacillin-Tazobactam 3 100 .375 gm In Sodium Chloride 0.9% 100 ml @ 25 mls/hr IVPB Q12HR JOSÉ Rx #:[id number] Oral 60 Hemodialysis 500 700 Output: Urine 0 0 0 Stool 100 50 Hemodialysis 2500 150 Hemodialysis Net Amount 2000 550 - Exam Patient is awake, comfortable, no acute distress Examination of the heart S1 and S2 Examination of the lungs bilateral breath sounds are heard Abdomen is soft nontender Examination of lower extremities shows trace edema TITLE I PARAPROFESSIONAL exam grossly intact - Labs CBC & Chem 7: 07/05/24 04:09 07/05/24 04:09 Labs: Abnormal Lab Results - Last 24 Hours (Table) 07/04/24 07/04/24 07/04/24 Range/Units 10:55 16:01 16:03 RBC (4.30-5.90) m/uL Hgb (13.0-17.5) gm/dL MCV (80.0-100.0) fL MCHC (31.0-37.0) g/dL RDW (11.5-15.5) % Neutrophils # (1.3-7.7) k/uL Lymphocytes # (1.0-4.8) k/uL Sodium (137-145) mmol/L Potassium (3.5-5.1) mmol/L Chloride (98-107) mmol/L Carbon Dioxide (22-30) mmol/L BUN (9-20) mg/dL Creatinine (0.66-1.25) mg/dL Glucose (74-99) mg/dL POC Glucose (mg/dL) 195 H 309 H 367 H (70-110) mg/dL 07/04/24 07/05/24 07/05/24 Range/Units 20:03 04:09 04:09 RBC 4.21 L (4.30-5.90) m/uL Hgb 12.9 L (13.0-17.5) gm/dL MCV 103.2 H (80.0-100.0) fL MCHC 29.7 L (31.0-37.0) g/dL RDW 17.1 H (11.5-15.5) % Neutrophils # 9.0 H (1.3-7.7) k/uL Lymphocytes # 0.4 L (1.0-4.8) k/uL Sodium 132 L (137-145) mmol/L Potassium 6.0 H (3.5-5.1) mmol/L Chloride 92 L (98-107) mmol/L Carbon Dioxide 18 L (22-30) mmol/L BUN 116 H* (9-20) mg/dL Creatinine 5.42 H (0.66-1.25) mg/dL Glucose 154 H (74-99) mg/dL POC Glucose (mg/dL) 305 H (70-110) mg/dL 07/05/24 07/05/24 Range/Units 06:23 09:41 RBC (4.30-5.90) m/uL Hgb (13.0-17.5) gm/dL MCV (80.0-100.0) fL MCHC (31.0-37.0) g/dL RDW (11.5-15.5) % Neutrophils # (1.3-7.7) k/uL Lymphocytes # (1.0-4.8) k/uL Sodium (137-145) mmol/L Potassium (3.5-5.1) mmol/L Chloride (98-107) mmol/L Carbon Dioxide (22-30) mmol/L BUN (9-20) mg/dL Creatinine (0.66-1.25) mg/dL Glucose (74-99) mg/dL POC Glucose (mg/dL) 151 H 149 H (70-110) mg/dL Assessment and Plan Assessment: 1. Acute kidney injury, nonoliguric, cardiorenal. UA is benign and ultrasound does not show any evidence of hydronephrosis. Started hemodialysis on 06/10/2024 for significant oliguric acute kidney injury. 2. Acute on chronic diastolic CHF 3. Volume overload, maintained on daily hemodialysis/UF treatments 4. Hypertension with CKD stage IV 5. Acute hypoxic respiratory failure secondary to CHF 6. Coronary artery disease with history of coronary stents 7. Metabolic acidosis, improved 8. Right heel wound status post debridement Plan: Hold hemodialysis today as patient is hemodynamically unstable today. I doubt that there is any further component of CHF contributing to his respiratory failure. Consider other causes. Encouraged increased oral intake.
[2024-07-05 11:01] LABS: Glucose,Whole Blood 138 mg/dL (70-110)
--- NOTE | 2024-07-05 11:06 | P.PN ---
Subjective Progress Note Date: 07/05/24 Principal diagnosis: Respiratory failure. Patient is a 73-year-old male with past medical history significant for hypertension, hyperlipidemia, coronary artery disease with previous PCI/stenting, heart failure, chronic kidney disease, diabetes mellitus, chronic right heel wound, ulcerative colitis with previous colectomy and ileostomy. Of note, patient had a recent hospitalization late May and was just discharged 05/31/2024 for CHF exacerbation. Echocardiogram done during this hospitalization estimating a preserved left ventricular ejection fraction of 55 to 60%. Limited study, but no acute valvular abnormalities reported. Presented the emergency department on 06/04/2024 with a chief complaint of shortness of breath, mostly on exertion. Chest x-ray showing cardiomegaly, mild pulmonary vascular congestion, and a small pleural effusion on the left. NT proBNP e levated 2550. Currently receiving Lasix 80 mg twice daily. CBC: WBC count 10.2, hemoglobin 10.4, hematocrit 32.5, platelets 374. CMP: Sodium 135, potassium 4.6, chloride 101, serum bicarb 18, BUN 66, creatinine 2.71, glucose 139. Troponin is less than 0.012. Patient currently being evaluated on the general medical floor. Appears weak and deconditioned. He is resting in bed on 1 L/min nasal cannula. No respiratory distress noted. Complaining of a generalized headache, which he states is chronic. States that he has been short of breath on exertion for several months to almost 1 year. Particularly on exertion such as climbing stairs or walking to the bathroom. Denies history of COPD or asthma. Never tobacco smoker. Worked in an [employer] shop before he retired. Denies cough. Denies infectious-like symptoms. Current vital signs: Temperature 98 F, heart rate 78 bpm, blood pressure 145/54 mmHg, nontachypneic, SpO2 recorded at 91% on 1 L/min nasal cannula. The patient is seen today June 07, 2024 in follow-up on the regular medical floor. He is awake and alert in no acute distress. Sitting up at the bedside. Maintaining O2 saturations in the 90s on 3 L/min per nasal cannula. White count 9.8. Hemoglobin 8.9. Platelets 366. Sodium 140. Potassium 4.7. Bicarb 22. BUN 60. Creatinine 2.4. Glucose 97. He remains on DuoNeb and elations, Pulmicort inhalations. Lasix 80 mg IV every 12 hours. He is currently -1.1 L balance. Antibiotics in the form of cefepime and daptomycin for his diabetic ulcer of the right foot. X-ray revealed no osseous erosion or acute fracture. The patient is seen today June 08, 2024 in follow-up on the regular medical floor. He did have issues with worsening shortness of breath. He is currently on BiPAP 12/6 and 40% FiO2. White count 6.3. Hemoglobin 8.5. Platelets 357. Sodium 136. Potassium 5.8. Bicarb 21. BUN 64. Creatinine 2.4. Glucose 178. Chest x-ray continues to show evidence of congestive heart failure. He is currently on Lasix 80 mg IV every 12 hours. Continued on bronchodilators and steroids. Remains on antibiotics in the form of cefepime and daptomycin. The patient is seen today June 09, 2024 in follow-up on the regular medical floor. He is currently resting comfortably in bed. Awake and alert in no acute distress. Breathing easier today compared to yesterday. He is currently on BiPAP 12/6 and 40% FiO2. White count 10.1. Hemoglobin 8.0. Platelets 339. Sodium 136. Potassium 5.8. Bicarb 21. BUN 94. Creatinine 3.4. Glucose 234. He remains on DuoNeb and elations, Pulmicort inhalations, Solu-Medrol. Remains on IV diuretics. Remains on cefepime and daptomycin. Receiving Lokelma. The patient is seen today June 10, 2024 in follow-up on the regular medical floor. He is currently sitting up at the bedside. Awake and alert in no acute distress. He is requiring BiPAP support at 12/6 and 60% FiO2. Alternating with oxygen at 4 L/min per nasal cannula. He is continued on DuoNeb inhalations, Pulmicort inhalations, Solu-Medrol. He remains on antibiotics in the form of cefepime and daptomycin. Receiving iron supplement. Continued on IV diuretics. Continued on sodium bicarb tablets. White count 12.8. Hemoglobin 7.9. Platelets 335. Sodium 135. Potassium 5.2. Bicarb 23. BUN 118. Creatinine 4.1. Glucose 131. Plan is for placement of a hemodialysis catheter today and to receive hemodialysis today and tomorrow per nephrology Progress note dated 06/11/2024. The patient is seen in room 366. Currently, the patient is on BiPAP, with settings of 12/6, and 100%. The patient is undergoing hemodialysis today. The patient is getting saline at 10 cc an hour. The patient continues on cefepime, and daptomycin. Laboratory data today includes a sodium 137, potassium 4.9, chlorides 97, CO2 22, anion gap 18, BUN 108, and creatinine 4.1. Glucose is 106 . Calcium is 8.7. Chest x-ray from yesterday shows cardiomegaly, and diffuse infiltrates, likely related to underlying fluid overload. Patient was seen today on 06/24/2024, patient remains on 15 L high flow nasal cannula, surprisingly the patient tells me that he is feeling better, patient was started 2 days ago on dialysis/ultrafiltration, seems to be helping the patient significantly. His urine output is very marginal today. Patient remains on broad-spectrum antibiotics, he is being followed by many consultants including nephrology, patient remains on Zosyn and daptomycin. WBC count 17.7 hemoglobin 9.8 electrolytes showed low sodium of 130 potassium 6 BUN is 43 creatinine 2.97. To the right heel area for months now, and has been treated on outpatient setting for culture positive MRSA and positive for Proteus. Patient clearly has diabetic foot infection, and diabetic right foot ulcer. As well as stage III pressure ulcer of the right heel. Patient was seen today on 06/25/2024, patient is about the same, remains on hemodialysis, he is on 12 L high flow nasal cannula down from 15 yesterday. In spite of this the patient does not seem to be in any distress. Remains on broad-spectrum antibiotics, including Zosyn and daptomycin, patient was dialyzed yesterday, I am not certain if he is scheduled to have dialysis today. Continues to have leukocytosis with WBC of 23 hemoglobin 11.2 electrolytes are normal BUN is down to [address] of the chest from last week showed diffuse bilateral groundglass and airspace opacities throughout both lungs. And mild to moderate cardiomegaly. The findings are findings of either pulmonary edema or atypical pneumonia. Patient was seen today on 06/26/2024, patient is receiving hemodialysis today, his FiO2 requirement has gone up, today he is on Airvo at 80%. Patient is feeling better than expected considering his FiO2 requirement, chest x-ray continues show bilateral interstitial infiltrates/edema. WBC count is 11.8 hemoglobin is 10.1 potassium earlier today was 6.6 BUN 72 creatinine 4.3 and that being addressed by nephrology. Blood sugar was as high as 360 now it is 200. Patient was seen today on 06/27/2024, basically he is about the same, intermittently on Airvo and sometimes on BiPAP, still running low O2 saturation, chest x-ray discharge showing worsening interstitial edema, he felt better yesterday after his hemodialysis, today obviously he needs to go back on BiPAP. He was earlier on Airvo with FiO2 of 65% and 40 L flow, patient seemed to do much better when on BiPAP. Chest x-ray again is showing worsening vascular congestion andPulmonary edema, basic metabolic profile is normal bicarb is nor mal BUN is 59 creatinine 3.30. Patient was seen today on 06/28/2024, considering his overall condition, patient was transferred from the medical floor to the ICU mostly because of his complicated issues and could not be handled by nursing staff on the floor. Apparently the patient was having intermittent episodes of desaturations, requiring adjustment in his BiPAP and his Airvo. Finally patient was transferred to ICU, and basically we are maintaining the same treatment plan, hardly any change except while having dialysis today the patient was noted to have soft blood pressure, and I recommended the use of norepinephrine if needed. Otherwise patient is on BiPAP, 14/7/60%. The plan is to remove 3 L with hemodialysis today. Antibiotics ring remains on daptomycin and Zosyn patient remains marginal at best. Patient looks pale however his hemoglobin today is 9.6. The rest of the labs are unremarkable, his bicarb is 24 BUN is 92 creatinine 4.63. Seen today on 06/29/2024, remains in the ICU on BiPAP 14/7/60% he was earlier today on Airvo at 50 L and 70% FiO2. Patient is doing well, he normally does quite well after hemodialysis, he scheduled to have hemodialysis today. Platelets are coming down hence I recommended stopping subcu heparin for now. Patient remains on Zosyn empirically. No major changes noted in the last 24 hours, he is off norepinephrine not requiring any hemodynamic support. WBC count is 11.1 hemoglobin 9.2 electrolytes are normal except for sodium of 129 BU N is 61, creatinine 3.57 chest x-ray continues to show cardiomegaly and pulmonary edema with bilateral pleural effusions Patient was evaluated today on 06/30/2024, remains in the ICU, marginal at best. On BiPAP 14/7 FiO2 60%, and intermittently on Airvo at 50 L or 73% FiO2. O2 saturation is in the low 90s and high 80s most of the time. Patient remains on daptomycin remains on Zosyn, remains intermittently on hemodialysis, his last hemodialysis yesterday and 2 L were removed. Patient had debridement of his foot, and he had MRSA and Proteus in the right heel cultured. Patient has a right subclavian hemodialysis catheter. His oxygen requirement has been relatively high, unable to cut down on his FiO2. Chest x-ray continues show evidence of bilateral interstitial edema. And questionable underlying infiltrates. WBC count is 11 hemoglobin 9.5 sodium 128 potassium 3.8 BUN is 48 creatinine 2.58 Progress note dated July 01, 2024. 73-year-old male who was admitted back on June 04, where shortness of breath, and mental status changes. The patient has been in and out of the intensive care unit, coming back to the ICU, most recently on June 27. Currently, the patient is on Airvo, 60 L/min, with an FiO2 of 70%. He does also use BiPAP from time to time, with settings of 14/7 and 60%. He is getting hemodialysis, Monday, Monday, and Monday. At times, he is a bit confused. Dialysis plans today include removal of 2 L of fluid. The patient continues on daptomycin, Zosyn, and fluconazole. Current labs include a white count 13.3, hemoglobin 9.4, hematocrit 31.2, and a platelet count of 131,000. Sodium 127, potassium 4.2, chloride 92, CO2 23, BUN 90, creatinine 4.14. Glucose is 117. Calcium is 8.2. Chest x-ray shows cardiomegaly, and pulmonary vascular congestion, with pulmonary edema, bilateral pleural effusions. Progress note dated July 02, 2024. This is a 73-year-old male who was admitted back on June 04, with shortness of breath, mental status changes, acute kidney injury, and CHF. The patient has been in and out of the intensive care unit, most recently being readmitted on June 27. He remains on Airvo, with settings of 60 L/min and FiO2 of 70%. He did use BiPAP, for about 7 hours, with settings of 14/7 and 60%. He is not receiving any IV fluids. He is receiving hemodialysis today. The goal is a removal of 3 L. Current laboratory data reveals an white blood cell count of 8.4, hemoglobin 10, hematocrit 32.9, and a platelet count of 141,000. Sodium 131, potassium 4.9, chloride 95, CO2 25, anion gap 11, BUN 66, creatinine 3.19. Glucose is 224. Chest x-ray shows cardiomegaly, with pulmonary edema. Progress note dated July 03, 2024. 73-year-old male seen again today in room 254. The patient is currently on Airvo at 40 L/min with an FiO2 of 50%. He is not receiving any IV fluids. Currently, he is having daily hemodialysis. The goal today is to remove 2-1/2 L. He did use BiPAP a couple days ago, and we have not discontinued it from the room. BiPAP settings are 14/7, and 60%. Again he has not used it for the last 2 days. Current laboratory data includes a white count 9.6, hemoglobin 1.4, macro 36.5, and a normal platelet count. Sodium 130, potassium 5.5, chloride 94, CO2 21, anion gap 15, BUN 105, and creatinine 4.88. Glucose is 136. Calcium is 8.6. Chest x-ray again shows a pattern of CHF, cardiomegaly, and interstitial edema. Progress note dated July 04, 2024. 73-year-old male seen again in room 254. The patient continues to have severe hypoxemic respiratory failure. He is on Airvo, with settings of 40 L/min, and an FiO2 of 50%. He is not receiving any IV fluids. He will have hemodialysis today, and the goal is to remove 2 L. He has not used BiPAP for the last 2 days. The patient has decided to make himself a DO NOT RESUSCITATE patient. His chest x-ray is the same or slightly better. He remains on daptomycin, and Zosyn. Currently, white count 8.8, hemoglobin 11.7, hematocrit 37.5, and platelet count is normal. Sodium 128, potassium 5.3, chloride 94, CO2 19, anion gap 15, BUN 75, and creatinine 3.50. Glucose is 89. Calcium is 8.7. Chest x- ray as read by radiology, is unchanged. Progress note dated July 05, 2024. 73-year-old male seen in room 254. The patient continues on Airvo, with settings of 40 L/min, and FiO2 50%. No IV fluids. He is going to have hemodialysis today. The goal is to remove 2 to 3 L of fluid. The patient is a DO NOT RESUSCITATE patient. He continues on daptomycin and Zosyn. White count 10.1, hemoglobin 12.9, hematocrit 43.4, and platelet count 281,000. Sodium 132, potassium 6, chlorides 92, CO2 18, anion gap 22, BUN 116, and creatinine 5.42. Glucose is 138. Calcium is 8.9. Chest x-ray is largely unchanged. Objective - Vital Signs Vital signs: Vital Signs Temp 97.4 F L 07/05/24 10:17 Pulse 87 07/05/24 10:52 Resp 22 07/05/24 10:17 BP 89/57 07/05/24 10:17 Pulse Ox 97 07/05/24 10:40 FiO2 50 07/05/24 10:40 Intake & Output 07/04/24 07/05/24 07/05/24 18:59 06:59 18:59 Intake Total 550 100 760 Output Total 4600 50 700 Balance -4050 50 60 Weight 89.386 kg 89.386 kg Intake: IV 50 100 DAPTOmycin 350 mg In 50 Sodium Chloride 0.9% 50 ml @ 100 mls/hr IVPB Q48H JOS[facility] Rx#:[id number] Piperacillin-Tazobactam 3 100 .375 gm In Sodium Chloride 0.9% 100 ml @ 25 mls/hr IVPB Q12HR JOSÉ Rx #:[id number] Oral 60 Hemodialysis 500 700 Output: Urine 0 0 0 Stool 100 50 Hemodialysis 2500 150 Hemodialysis Net Amount 1999 550 - Exam No acute distress, currently on Airvo. HEENT examination is grossly unremarkable. Mucous membranes are moist. No oral lesions. Neck supple. Full range of motion. No adenopathy thyromegaly or neck vein distention. Cardiovascular examination reveals regular rhythm rate. S1-S2 normal. No S3 or S4. No discernible murmur noted. Heart sounds are distant. Lungs reveal scattered bilateral rhonchi. Some basilar crackles are noted. No wheezes. Breath sounds are equal bilaterally. Abdomen soft bowel sounds are heard. No masses or tenderness. Extremities are intact. No cyanosis clubbing or edema. Right foot is wrapped. Skin is without rash or lesion. Neurologic examination is brief but nonfocal. - Labs CBC & Chem 7: 07/05/24 04:09 07/05/24 04:09 Labs: Abnormal Lab Results - Last 24 Hours (Table) 07/04/24 07/04/24 07/04/24 Range/Units 16:01 16:03 20:03 RBC (4.30-5.90) m/uL Hgb (13.0-17.5) gm/dL MCV (80.0-100.0) fL MCHC (31.0-37.0) g/dL RDW (11.5-15.5) % Neutrophils # (1.3-7.7) k/uL Lymphocytes # (1.0-4.8) k/uL Sodium (137-145) mmol/L Potassium (3.5-5.1) mmol/L Chloride (98-107) mmol/L Carbon Dioxide (22-30) mmol/L BUN (9-20) mg/dL Creatinine (0.66-1.25) mg/dL Glucose (74-99) mg/dL POC Glucose (mg/dL) 309 H 367 H 305 H (70-110) mg/dL 07/05/24 07/05/24 07/05/24 Range/Units 04:09 04:09 06:23 RBC 4.21 L (4.30-5.90) m/uL Hgb 12.9 L (13.0-17.5) gm/dL MCV 103.2 H (80.0-100.0) fL MCHC 29.7 L (31.0-37.0) g/dL RDW 17.1 H (11.5-15.5) % Neutrophils # 9.0 H (1.3-7.7) k/uL Lymphocytes # 0.4 L (1.0-4.8) k/uL Sodium 132 L (137-145) mmol/L Potassium 6.0 H (3.5-5.1) mmol/L Chloride 92 L (98-107) mmol/L Carbon Dioxide 18 L (22-30) mmol/L BUN 116 H* (9-20) mg/dL Creatinine 5.42 H (0.66-1.25) mg/dL Glucose 154 H (74-99) mg/dL POC Glucose (mg/dL) 151 H (70-110) mg/dL 07/05/24 07/05/24 Range/Units 09:41 10:59 RBC (4.30-5.90) m/uL Hgb (13.0-17.5) gm/dL MCV (80.0-100.0) fL MCHC (31.0-37.0) g/dL RDW (11.5-15.5) % Neutrophils # (1.3-7.7) k/uL Lymphocytes # (1.0-4.8) k/uL Sodium (137-145) mmol/L Potassium (3.5-5.1) mmol/L Chloride (98-107) mmol/L Carbon Dioxide (22-30) mmol/L BUN (9-20) mg/dL Creatinine (0.66-1.25) mg/dL Glucose (74-99) mg/dL POC Glucose (mg/dL) 149 H 138 H (70-110) mg/dL Assessment and Plan Assessment: Acute exacerbation of diastolic congestive heart failure. Acute hypoxemic respiratory failure, secondary to above. Acute on chronic shortness of breath. Acute on chronic kidney disease now requiring renal replacement therapy to start today June 10, 2024. Hyperkalemia secondary to above. Acute on chronic anemia secondary to above. History of CAD with previous PCI. Diabetes mellitus with hyperglycemia. Hypertension. History of hyperlipidemia. Chronic cephalgia. History of UC with previous colectomy and ileostomy. History of prostate cancer status post chemoradiation. Chronic right heel wound, status post debridement on 05/28/2024. Obesity, with a BMI of 38.8 kg/m . Plan: Plan dated June 11, 2024. The patient is seen today in room 366. He continues on BiPAP, with settings of 12/6, and 100%. We are hoping that after hemodialysis today, the FiO2 can be reduced. The patient is receiving saline at 10 cc an hour. In addition, the patient continues on cefepime, and daptomycin. Currently, cultures are negative. All labs, x-rays, and medications are reviewed. 50 minutes was spent with this patient, including time spent interviewing the patient, and examining him, reviewing pertinent labs, x-rays, and medications, as well as discussing the diagnosis, treatment, and prognosis, with the patient, and the patient's family, as well as the bedside nurse. Plan dated July 01, 2024. The patient is seen today again in room 254. I saw him last back on June 11. The patient is currently on Airvo, 60 L/min, with an FiO2 of 70%. He does occasionally use BiPAP, with settings of 14/7, 60%. The patient was initially admitted back on June 04. He came back to the intensive care unit, on June 27. He continues on daptomycin, Zosyn, and fluconazole. The patient has hemodialysis, Monday, Monday, and Monday. The goal for hemodialysis today is to remove 2 L of fluid. The patient remains a full code. Additional recommendations and suggestions are forthcoming. The patient's overall prognosis remains poor, and over the course of this entire hospital stay for 27 days, he has made very little progress. We will continue to follow and make recommendations along the way. All labs, x-rays, and medications are reviewed. Prognosis is guarded. Dictation was produced using [employer] dictation software. Please excuse any grammatical, word or spelling errors. Plan dated July 02, 2024. The patient was seen today in room 254. He continues on Airvo, with settings of 60 L/min, and FiO2 70%. The patient did spend some time with BiPAP, roughly 7 hours, with settings of 14/7 and an FiO2 of 60%. He is not receiving any IV fluids. The patient is undergoing hemodialysis today. The goal is to removal of 3 L. The patient is currently being evaluated for long-term acute care/specialized nursing facility. I had the opportunity to speak to the patient's , Sydnee, and gave her number different things to think about including CODE STATUS. She said he would never want to be on life support. I asked her to discuss that with him, and come up with a meeting on the minds. In addition, I told her that she would be more than welcome to take the patient elsewhere, if she thinks that he would benefit from a different facility such as [facility]. We also talked about CODE STATUS, and also talked about long-term acute care facility such as [facility] specialty or specialized nursing facility. Additional recommendations and suggestions are forthcoming. All labs x-rays and medications are reviewed. Prognosis is guarded. Dictation was produced using [employer] software. Please excuse any grammatical, word or spelling errors. Plan dated July 03, 2024. The patient is seen today in room 254. He remains on Airvo. He does remain critically ill. He is undergoing hemodialysis, on a daily basis. He is not rec eiving any IV fluids. His Airvo settings of 40 L/min with an FiO2 of 50%. He has not used the BiPAP for the last 48 hours. Labs, x-rays, and all medications are reviewed. I did have a long conversation with his Sydnee yesterday about various options. He remains a full code. He will talk to her again today, to make some sort of a decision. He is leaning towards not being a full code patient. We will continue to follow and make recommendations. Prognosis is guarded. Dictation was produced using [employer] software. Please excuse any grammatical, word or spelling errors. Plan dated July 04, 2024. The patient is seen again in room 254. He remains on Airvo. He has severe hypoxemic respiratory failure. The patient will receive hemodialysis today. The goal is to remove 2 L. The patient would [facility], but he cannot be receiving hemodialysis on a daily basis, only 3 days/week. Labs, x-rays, and medications are reviewed. Additional recommendations and suggestions are forthcoming. The patient is hoping to be discharged to a specialized nursing facility, when his hemodialysis requirements, are reduced. All labs, x-rays, and medications are reviewed. The patient is overall prognosis remains very guarded. He has not made much progress since he has been here. Dictation was produced using [employer] software. Please excuse any grammatical, word or spelling errors. Plan dated July 05, 2024. The patient remains critically ill. He remains on Airvo, with settings of 40 L/min, and FiO2 50%. He is not receiving any IV fluids. The patient is now a DO NOT RESUSCITATE patient. Unfortunately, he could not be transferred to a [facility]-term acute care facility, having hemodialysis on a daily basis. It has to be reduced down to 3 times a week. The patient continues on daptomycin and Zosyn. All labs, x-rays, and medications are reviewed. We will continue to follow the patient, make recommendations along the way. His overall prognosis remains very poor. He finally did make a decision to make himself DNR which I think is ap propriate. No additional recommendations are made. We will continue to follow. Dictation was produced using [employer]ation software. Please excuse any grammatical, word or spelling errors. Time with Patient: Greater than 30
--- NOTE | 2024-07-05 11:53 | P.PN ---
Subjective Interval History: Pleasant 73-year-old patient follows with Dr. Dennis. Soundscriber Mechanic: Dr. Bales Chronic medical conditions include hypertension, hyperlipidemia, type 2 diabetes, mood disorder, and CAD , ostomy for 25 years, July 2023 stent to the LAD and second diagonal branch by Dr. Bales. April 26, [address] Bales: Following a non-ST relation [place]: Patent stent to mid LAD. Late stent thrombosis of the second diagonal branch of the LAD. Severe disease involving the OM1 appears unchanged. Attempted balloon angioplasty performed to the second of diagonal branch with suboptimal results. Dose of Imdur was increased and Ranexa was added. Patient recently in the hospital from May 28 through May 31. Chronic headaches: MRI unremarkable. MR angio head and neck: MR angio head without contrast: No evidence of aneurysm or significant stenosis. Atrophic right A1 segment. origin of the right posterior cerebral artery.MRI of the brain nonspecific. Was seen by neurology Dr. Gay. Patient to follow-up outpatient Chronic right heel wound seen by Dr. Carpenter from vascular deep debridement was carried out. No need for antibiotics. Patient to follow-up with Dr. Jernigan at the wound center. Shortness of breath: Was seen by cardiology. Not for any further intervention. Patient doing well when discharged. Patient presented increased shortness of breath when at home. His pulse ox dropped out of the 80s. Increasing shortness of breath. Decreased appetite. No fever or chills. June 10: Using his BiPAP. Patient seen this morning. Later this afternoon. Right femoral vein dialysis catheter was placed by Dr. Carpenter from vascular for dialysis. Baseline some shortness of breath. Due for first dialysis today. Patient is right heel culture grew MRSA Proteus P Corynebacterium on May 29. Patient is on IV daptomycin and IV cefepime per ID. June 11: Patient seen this afternoon. On BiPAP. Getting hemodialysis. Remains on IV daptomycin IV Zosyn. Tired. Also getting IV iron. Patient really did not eat today. Because of BiPAP. Cut back Levemir to 26 units at night. DC scheduled NovoLog for now. June 12: Overflowing the ICU. Remains on BiPAP. 04/05/%. at the bedside. Remains on IV daptomycin and IV Zosyn. For dialysis today. X-ray continues shows infiltrates. Significantly hypoxic. N.p.o. June 13: ICU. Remains on BiPAP. 04/05/90% moderate take anything by mouth. Spoke to the nurse have TPN lipids ordered. Remains on IV daptomycin IV Zosyn. Chest x-ray continues to show diffuse infiltrates. Continues to be followed by cardiology pulmonary ID nephrology. June 14: ICU. Later this afternoon patient was put on Airvo. 60/60. Has some delirium. Remains on IV daptomycin and IV Zosyn. Had 2 L ultrafiltration yesterday. Patient getting daily dialysis for now. As patient is oliguric per nephrology Lasix has been held. TPN was ordered yesterday per the nurse culture that returned to feed the patient. Will see how that goes. Dietitian on the case. June 15: ICU. Patient be getting hypotensive. Some medications held back by cardiology. Hemodialysis done today. Patient remains on Airvo though at 50/50. at the bedside. Plans this afternoon to get him up in the chair. Remains on daptomycin and IV Zosyn. IV Lasix been discontinued. Patient tolerating some liquid diet. June 16: Patient moved to the ICU. Remains on Airvo. 45/45. at the bedside. Tolerating full liquids. Spoke to the about the morphine. His headaches are chronic. Use Fioricet as needed. Remains on IV daptomycin and IV Zosyn. IV Solu-Medrol. Amlodipine dose cut back. PT OT. June 17: On 3 S., telemetry floor. Getting hemodialysis today. Remains on IV daptomycin IV Zosyn. On full liquid diet. Advance to ground diet. Minimal urine output. DC fluid restriction. Awake communicating. Accu-Cheks running high. Increase Levemir to 28 units subcu twice daily. Seen by PT OT. Maximum assist. On Airvo 40/40. Cut back Solu-Medrol to every 12. June 18: On a recliner. 7 L nasal cannula. Decreased appetite. at the bedside. Accu-Chek in 200s. IJ PermCath placement pending. Encourage oral intake. Ordered incentive spirometry June 19: Patient was on 7 L nasal cannula yesterday. Patient back on Airvo today. 40 L. Due for hemodialysis today. Had perm dialysis catheter placed right IJ by Dr. Jayden today. Minimal intake today. Discussed with at the bedside. June 20: Recliner. High flow 15 L nasal cannula. at the bedside. Decreased oral intake.Tired. Hemodialysis today. June 21: Still decreased appetite. Remains on high flow 15 l nasal cannula. Remains on IV daptomycin IV Zosyn per ID. Being followed by multiple consultants spoke to the patient and . Encourage oral intake. June 22: Remains on 15 L high flow nasal cannula. at the bedside. Diet. Remains on IV daptomycin IV Zosyn. Decreased appetite. Will try ground diet. June 23: Monday to the bed. Ate a bit better according to the . Remains on 15 L nasal cannula. Oral candidiasis. Diflucan 200 mg x 1 today. Then 100 mg 3 times a week after each dialysis. Remains on daptomycin IV Zosyn per ID. Discussed with patient 06/24 I am resuming the care of the patient today He is sitting at the edge of the bed feels comfortable. Still requiring 15 units of oxygen, he states that he feels better than yesterday after he was started on IV Solu-Medrol 40 mg twice daily. At home he was not on oxygen Also he is on daptomycin and Diflucan. He is also on antibiotic for his right foot ulcer with dressing in place. No pain 06/25 Patient feels the same Oxygen requirements down from 15 down to 12 L/min His labs showing more hemoconcentration with leukocytosis 23K, hemoglobin 12.2 and platelet 128 all went up little bit. Creatinine 2.5. Sodium improved 132 He remains on Zosyn daptomycin and fluconazole and IV Solu-Medrol 40 mg twice daily 06/26 Patient is breathing quietly while he is sitting in bed. He is getting 11 L via nasal cannula in the morning, however later on it looks like his oxygen supply was increased. Patient denies any other new symptoms His sodium today was 129 and potassium elevated 6.6 and creatinine 4.3. Patient getting dialysis for hyperkalemia protocol. WBC went down to 11.8. Hemoglobin stable at 10.1. Platelet count 122. Remains on triple antibiotics with Diflucan, daptomycin and Zosyn. Also is on IV Solu-Medrol 40 mg twice daily. No more panic attack. Yesterday after rounding he developed panic attacks and improved with Xanax 06/27 Patient required more oxygen starting yesterday and today his saturation well on higher dose of oxygen 40 L/min with FiO2 of 66% Chest x-ray showing cardiomegaly, pulmonary vascular congestion and pleural effusion Currently patient torsemide 40 mg daily Also is getting hemodialysis yesterday and there is another dialysis going on for tomorrow Also he remains on IV Solu-Medrol 40 mg and broad-spectrum antibiotics as above 06/28 Since yesterday patient oxygen requirement started worsening significantly he was placed on high flow nasal cannula at 40 L with FiO2 of 60 to 66%. By the evening patient required to be placed on BiPAP and he was sent to the ICU. Repeat chest x-ray showing cardiomegaly with pulmonary vascular congestion. Echocardiogram from 05/29/2024 showing ejection fraction of 55 to 60%. Patient also undergoing hemodialysis. Creatinine increased today to 4.63. Remains on torsemide, IV Solu-Medrol antibiotics with Zosyn daptomycin and fluconazole 06/29--- patient was seen and examined today. Continues to require on and off BiPAP, currently on heated high flow oxygen, undergoing hemodialysis. Remains on daptomycin and Zosyn. Pulmonary, ID, nephrology following. On Diflucan. Patient is afebrile, heart rate 78, respiratory rate 17, blood pressure 130/61,'s on 50 L heated high flow oxygen. WBC 11.1, hemoglobin 9.2, platelet 97. Sodium 129 potassium 4.0 BUN 61 creatinine 3.57. 06/30--patient was seen and examined today. Afebrile, heart rate 80, respiratory rate 19, blood pressure 121/58, saturating 94% on 50 L heated high flow. WBCs 11.0, hemoglobin 9.5, platelet 113. Sodium 128 potassium 3.8, chloride 90, CO2 26, BUN 48, creatinine 2.58. Patient reported urine output today. Infectious disease following, currently on Zosyn and daptomycin. ICU following. Nephrology following, plan for hemodialysis tomorrow, challenge ultr afiltration. Currently on torsemide. Received IV iron. 07/01--- patient was seen and examined today. Remained afebrile, heart rate 88, respiratory rate 20, blood pressure 126/61, saturating 94%, on 60 L heated high flow. WBCs 13.3, hemoglobin 9.4, platelet 131. Sodium 127 potassium 4.2 chloride 92 CO2 23 BUN 90 creatinine 4.14 patient underwent hemodialysis today, nephrology following plan for daily hemodialysis for fluid overload. ICU following. Currently on Diflucan, daptomycin and Zosyn. Infectious disease consulted and following. 07/02--patient was seen and examined today. Afebrile, heart rate 98, respiratory rate 18, blood pressure 127/53. Remains on heated high flow with 50 L. Easily desaturates. WBCs 8.4, hemoglobin 10.0, platelet 141. Sodium 131 potassium 4.9 chloride 95 CO2 25 BUN 66 creatinine 3.19. Tolerated BiPAP overnight. ICU following. Poor prognosis. 07/03--- patient was seen and examined today. Family at bedside. Currently on 40 L/min with FiO2 of 50%, underwent hemodialysis today. Afebrile, heart rate 92, respiratory rate 20, blood pressure 113/95.WBCs 9.6, hemoglobin 11.4, platelet 191. Sodium 130, potassium 5.5, chloride 94, CO2 21, BUN 105, creatinine 4.88. 07/04/patient was seen and examined today. Patient continues to require 40 L oxygen, with FiO2 50%. Patient underwent hemodialysis with 2 L fluid removal today. Discussed with nephrology, plan for daily hemodialysis until Monday. Chest x-ray showed same pulmonary venous congestion. Currently on daptomycin and Zosyn. WBCs 8.8, hemoglobin 11.7, platelet 229. Sodium 128 potassium 5.3 chloride 94 BUN 75 creatinine 3.50. 07/05patient was seen and examined today. Afebrile, heart rate 87, respirate 16, blood pressure 87/50, saturating 96%, on 40 L heated high flow at 50% FiO2. WBCs 10.0, hemoglobin 12.9, platelet 281. Sodium 132, potassium 6.0, chloride 92, CO2 18, BUN 116, creatinine 5.42. Undergoing hemodialysis today. Nephrology planning for daily hemodialysis for now. Chest x-ray--same CHF. Remains on daptomycin and Zosyn per infectious disease. ICU on following. Nephrology following. Assessment and plan: Acute hypoxic respiratory failure: Bilateral pneumonia: Acute diastolic CHF: Acute COPD exacerbation: Right foot diabetic ulcer: MRSA culture positive: ROSELYN on CKD: Now requiring dialysis, right IJ permacath placed to 1025 Hyperkalemia: Resolved Oral candidiasis: Acute on chronic anemia: Anemia of chronic disease History of CAD with previous PCI Diabetes mellitus Hypertension Hyperlipidemia Chronic cephalgia Chronic ostomy History of prostate cancer status post chemo/radiation Chronic right heel wound status post debridement Obesity: Plan: Requires BiPAP, continue inhalers, bronchodilators, Solu-Medrol, pulmonary consulted Nephrology consulted, on hemodialysis, torsemide. Antibiotics: Daptomycin and Zosyn, status post debridement twice 06/07, 06/14 during hospitalization, infectious disease on board Diflucan Accu-Cheks, diabetic diet, Lantus, Humalog. Continue home meds including aspirin, Plavix, Norvasc, metoprolol, Imdur, Ranexa, Flomax. DVT prophylaxis: Subcutaneous heparin Disposition: LTAC--currently requiring daily hemodialysis, not ready to discharge. Anticipate discharge to LTAC next week. Monitor vital signs and labs Labs and medication were reviewed. Continue same treatment. Further recommendations as per clinical course of the patient PHYSICAL EXAMINATION: GENERAL: The patient is A&O x3, NAD HEENT: EOMI, Sclerae anicteric, Moist Mucous membranes Neck: Supple, Non tender, No JVD PULMONARY: Dec breath souds B/L, No wheezing, + crackles. CARDIOVASCULAR: S1, S2 present. No murmurs, rubs, or gallops. ABDOMEN: Soft, nontender, nondistended, normoactive bowel sounds. No guarding or rebound tenderness. MUSCULOSKELETAL: + edema, No cyanosis. No clubbing. Normal ROM. Intact peripheral pulses. NEUROLOGICAL: CN 2-12 grossly intact. No FND Skin: No Rash REVIEW OF SYSTEMS: CONSTITUTIONAL: No fever or chills. CARDIOVASCULAR: No chest pain, palpitations or syncope. PULMONARY: Complains of shortness of breath. GASTROINTESTINAL: No nausea, vomiting, diarrhea, abdominal pain. : No Dysuria, urgency, frequency. Extremities: No edema. NEUROLOGICAL: No headaches, no weakness, or numbness Dictation was produced using [employer] dictation software. please excuse any grammatical, word or spelling errors. Objective - Vital Signs Vital signs: Vital Signs Temp 97.4 F L 07/05/24 10:17 Pulse 87 07/05/24 11:00 Resp 16 07/05/24 11:00 BP 87/50 07/05/24 11:00 Pulse Ox 96 07/05/24 11:00 FiO2 50 07/05/24 10:40 Intake & Output 07/04/24 07/05/24 07/05/24 18:59 06:59 18:59 Intake Total 550 100 790 Output Total 4600 50 700 Balance -4050 50 90 Weight 89.386 kg 89.386 kg Intake: IV 50 100 DAPTOmycin 350 mg In 50 Sodium Chloride 0.9% 50 ml @ 100 mls/hr IVPB Q48H JOS[facility] Rx#:[id number] Piperacillin-Tazobactam 3 100 .375 gm In Sodium Chloride 0.9% 100 ml @ 25 mls/hr IVPB Q12HR JOS[facility] Rx #:[id number] Oral 90 Hemodialysis 500 700 Output: Urine 0 0 0 Stool 100 50 Hemodialysis 2500 150 Hemodialysis Net Amount 1999 550 - Labs CBC & Chem 7: 07/05/24 04:09 07/05/24 04:09 Labs: Abnormal Lab Results - Last 24 Hours (Table) 07/04/24 07/04/24 07/04/24 Range/Units 16:01 16:03 20:03 RBC (4.30-5.90) m/uL Hgb (13.0-17.5) gm/dL MCV (80.0-100.0) fL MCHC (31.0-37.0) g/dL RDW (11.5-15.5) % Neutrophils # (1.3-7.7) k/uL Lymphocytes # (1.0-4.8) k/uL Sodium (137-145) mmol/L Potassium (3.5-5.1) mmol/L Chloride (98-107) mmol/L Carbon Dioxide (22-30) mmol/L BUN (9-20) mg/dL Creatinine (0.66-1.25) mg/dL Glucose (74-99) mg/dL POC Glucose (mg/dL) 309 H 367 H 305 H (70-110) mg/dL 07/05/24 07/05/24 07/05/24 Range/Units 04:09 04:09 06:23 RBC 4.21 L (4.30-5.90) m/uL Hgb 12.9 L (13.0-17.5) gm/dL MCV 103.2 H (80.0-100.0) fL MCHC 29.7 L (31.0-37.0) g/dL RDW 17.1 H (11.5-15.5) % Neutrophils # 9.0 H (1.3-7.7) k/uL Lymphocytes # 0.4 L (1.0-4.8) k/uL Sodium 132 L (137-145) mmol/L Potassium 6.0 H (3.5-5.1) mmol/L Chloride 92 L (98-107) mmol/L Carbon Dioxide 18 L (22-30) mmol/L BUN 116 H* (9-20) mg/dL Creatinine 5.42 H (0.66-1.25) mg/dL Glucose 154 H (74-99) mg/dL POC Glucose (mg/dL) 151 H (70-110) mg/dL 07/05/24 07/05/24 Range/Units 09:41 10:59 RBC (4.30-5.90) m/uL Hgb (13.0-17.5) gm/dL MCV (80.0-100.0) fL MCHC (31.0-37.0) g/dL RDW (11.5-15.5) % Neutrophils # (1.3-7.7) k/uL Lymphocytes # (1.0-4.8) k/uL Sodium (137-145) mmol/L Potassium (3.5-5.1) mmol/L Chloride (98-107) mmol/L Carbon Dioxide (22-30) mmol/L BUN (9-20) mg/dL Creatinine (0.66-1.25) mg/dL Glucose (74-99) mg/dL POC Glucose (mg/dL) 149 H 138 H (70-110) mg/dL
[2024-07-05] MEDS: SODIUM CHLORIDE 0.9% 500 ML 500 ML IV ONE (15:21)
--- NOTE | 2024-07-05 15:27 | P.PN ---
Subjective Progress Note Date: 07/05/24 Principal diagnosis: Reason for follow-up is right heel diabetic foot ulcer with MRSA infection Patient is a 73-year-old male with a past medical history significant for diabetes mellitus hypertension hyperlipidemia osteomyelitis patient has been dealing with a chronic nonhealing wound to the right heel area for months now and is being treated in outpatient setting by Dr. Jernigan his data deliverables manager with recent outpatient culture positive for MRSA and is Proteus. On today's evaluation that is 07/05/2024, the patient continues to be afebrile, the patient is on high flow nasal cannula oxygen 50% FiO2 denies any worsening shortness of breath chest pain or cough no vomiting diarrhea change reported by the nursing staff. Patient white count normalized to 10.1, creatinine is 5.42 Objective - Vital Signs Vital signs: Vital Signs Temp 97.5 F L 07/05/24 12:00 Pulse 87 07/05/24 12:00 Resp 16 07/05/24 12:00 BP 84/50 07/05/24 12:00 Pulse Ox 96 07/05/24 12:00 FiO2 50 07/05/24 10:40 Intake & Output 07/04/24 07/05/24 07/05/24 18:59 06:59 18:59 Intake Total 550 100 730 Output Total 4600 50 850 Balance -4050 50 -120 Weight 89.386 kg 89.386 kg Intake: IV 50 100 DAPTOmycin 350 mg In 50 Sodium Chloride 0.9% 50 ml @ 100 mls/hr IVPB Q48H [facility] Rx#:[id number] Piperacillin-Tazobactam 3 100 .375 gm In Sodium Chloride 0.9% 100 ml @ 25 mls/hr IVPB Q12HR [facility] Rx #:[id number] Oral 30 Hemodialysis 500 700 Output: Urine 0 0 0 Stool 100 50 150 Hemodialysis 2500 150 Hemodialysis Net Amount 2000 550 - Exam GENERAL DESCRIPTION: An elderly male lying in bed in no distress RESPIRATORY SYSTEM: Unlabored breathing , decreased breath sounds at bases HEART: S1 S2 regular rate and rhythm , ABDOMEN: Soft , no tenderness EXTREMITIES: Right hand wound is currently dressed - Labs CBC & Chem 7: 07/05/24 04:09 07/05/24 04:09 Labs: Abnormal Lab Results - Last 24 Hours (Table) 07/04/24 07/04/24 07/04/24 Range/Units 16:01 16:03 20:03 RBC (4.30-5.90) m/uL Hgb (13.0-17.5) gm/dL MCV (80.0-100.0) fL MCHC (31.0-37.0) g/dL RDW (11.5-15.5) % Neutrophils # (1.3-7.7) k/uL Lymphocytes # (1.0-4.8) k/uL Sodium (137-145) mmol/L Potassium (3.5-5.1) mmol/L Chloride (98-107) mmol/L Carbon Dioxide (22-30) mmol/L BUN (9-20) mg/dL Creatinine (0.66-1.25) mg/dL Glucose (74-99) mg/dL POC Glucose (mg/dL) 309 H 367 H 305 H (70-110) mg/dL 07/05/24 07/05/24 07/05/24 Range/Units 04:09 04:09 06:23 RBC 4.21 L (4.30-5.90) m/uL Hgb 12.9 L (13.0-17.5) gm/dL MCV 103.2 H (80.0-100.0) fL MCHC 29.7 L (31.0-37.0) g/dL RDW 17.1 H (11.5-15.5) % Neutrophils # 9.0 H (1.3-7.7) k/uL Lymphocytes # 0.4 L (1.0-4.8) k/uL Sodium 132 L (137-145) mmol/L Potassium 6.0 H (3.5-5.1) mmol/L Chloride 92 L (98-107) mmol/L Carbon Dioxide 18 L (22-30) mmol/L BUN 116 H* (9-20) mg/dL Creatinine 5.42 H (0.66-1.25) mg/dL Glucose 154 H (74-99) mg/dL POC Glucose (mg/dL) 151 H (70-110) mg/dL 07/05/24 07/05/24 Range/Units 09:41 10:59 RBC (4.30-5.90) m/uL Hgb (13.0-17.5) gm/dL MCV (80.0-100.0) fL MCHC (31.0-37.0) g/dL RDW (11.5-15.5) % Neutrophils # (1.3-7.7) k/uL Lymphocytes # (1.0-4.8) k/uL Sodium (137-145) mmol/L Potassium (3.5-5.1) mmol/L Chloride (98-107) mmol/L Carbon Dioxide (22-30) mmol/L BUN (9-20) mg/dL Creatinine (0.66-1.25) mg/dL Glucose (74-99) mg/dL POC Glucose (mg/dL) 149 H 138 H (70-110) mg/dL Assessment and Plan (1) Diabetic infection of right foot Current Visit: Yes Status: Acute Code(s): E11.628 - TYPE 2 DIABETES MELLITUS WITH OTHER SKIN COMPLICATIONS; L08.9 - LOCAL INFECTION OF THE SKIN AND SUBCUTANEOUS TISSUE, UNSP SNOMED Code(s): 148480300 (2) MRSA (methicillin resistant staph aureus) culture positive Current Visit: Yes Status: Acute Code(s): Z22.322 - CARRIER OR SUSPECTED CARRIER OF METHICILLIN RESIS STAPH SNOMED Code(s): 717457468 (3) Diabetic ulcer of right foot Current Visit: No Status: Acute Code(s): E11.621 - TYPE 2 DIABETES MELLITUS WITH FOOT ULCER; L97.519 - NON-PRS CHRONIC ULCER OTH PRT RIGHT FOOT W UNSP SEVERITY SNOMED Code(s): 795362896 (4) Stage III pressure ulcer of right heel Current Visit: No Status: Acute Code(s): L89.613 - PRESSURE ULCER OF RIGHT HEEL, STAGE 3 SNOMED Code(s): 11013233460474 Plan: 1patient with a chronic nonhealing wound to the right heel which he has for couple of months the wound looks deep with a recent culture positive for Proteus and MRSA concerning for wound infection and question for possible deeper infection such as osteomyelitis as wound has been there for couple of months now 2- -patient has been evaluated by Dr. Carpenter and did have surgical debridement completed on 06/07/2024 and did have a further debridement at the bedside by his data deliverables manager on 06/14/2024 and has been repeat debridement done on 07/02/2024 4-patient has been afebrile and white count has normalized, we will continue with Zosyn daptomycin along with Diflucan for another 3 to 5 days depending upon his clinical response Dictation was produced using [employer] dictation software. please excuse any grammatical, word or spelling errors. Time with Patient: Less than 30
[2024-07-05 15:56] LABS: Glucose,Whole Blood 114 mg/dL (70-110)
[2024-07-05 20:21] LABS: Glucose,Whole Blood 199 mg/dL (70-110)
[2024-07-06 06:01] LABS: Glucose,Whole Blood 164 mg/dL (70-110)
[2024-07-06 07:13] LABS: Anisocytosis Slight; Basophils % (A) 0 %; Eosinophils % (A) 0 %; HCT 40.8 % (39.0-53.0); HGB 12.3 gm/dL (13.0-17.5); Hypochromasia Moderate; Lymphocytes # (A) 0.3 k/uL (1.0-4.8); Lymphocytes % (A) 3 %; MCH 30.9 pg (25.0-35.0); MCHC 30.2 g/dL (31.0-37.0); MCV 102.4 fL (80.0-100.0); Macrocytosis Moderate; Mean Platelet Volume 9.1; Monocytes # (A) 0.6 k/uL (0-1.0); Monocytes % (A) 6 %; Neutrophils % (A) 90 %; Platelet Count 295 k/uL (150-450); RBC 3.98 m/uL (4.30-5.90); RDW 17.4 % (11.5-15.5)
[2024-07-06 07:40] LABS: Anion Gap 18 mmol/L; Calcium 8.6 mg/dL (8.4-10.2); Carbon Dioxide 18 mmol/L (22-30); Chloride 94 mmol/L (98-107); Glucose 168 mg/dL (74-99); Sodium 130 mmol/L (137-145)
[2024-07-06 07:47] LABS: African American GFR (CKD) 10 (>60 ml/min/1.73 sqM); Non-African American GFR(CKD) 9 (>60 ml/min/1.73 sqM)
[2024-07-06] MEDS: NOREPINEPHRINE 4 MG in SODIUM CHLORIDE 0.9% 250 ML IV SCH (08:01)
[2024-07-06 08:10] LABS: Blood Urea Nitrogen 129 mg/dL (9-20); Potassium 6.1 mmol/L (3.5-5.1)
[2024-07-06] MEDS: INSULIN GLARGINE (LANTUS) 100 UNIT/ML SYR SQ SCH (08:10)
--- NOTE | 2024-07-06 11:06 | P.PN ---
Subjective Progress Note Date: 07/06/24 Patient is seen for follow-up for chronic kidney disease and acute kidney injury. Started hemodialysis on 06/10/2024 for worsening acute kidney injury and volume overload. Patient has been dialyzed almost on a daily basis due to volume overload and hypoxic respiratory failure. Patient is seen in the ICU. he didn't tolerate HD yesterday,Blood pressure dropped significantly in the 50s and patient was given a fluid bolus. elevated K today to 6.1. planning HD today with 1 L UF as tolerated, RN at bedside, plan to initiate levophed if needed Objective - Vital Signs Vital signs: Vital Signs Temp 97.0 F L 07/06/24 08:00 Pulse 80 07/06/24 10:00 Resp 15 07/06/24 10:00 BP 98/56 07/06/24 10:00 Pulse Ox 94 L 07/06/24 10:00 FiO2 50 07/06/24 08:34 Intake & Output 07/05/24 07/06/24 07/06/24 18:59 06:59 18:59 Intake Total 1210 Output Total 900 150 0 Balance 310 -150 0 Weight 89.386 kg 89.4 kg Intake: Oral 510 Hemodialysis 700 Output: Urine 0 0 0 Stool 200 150 Hemodialysis 150 Hemodialysis Net Amount 550 Other: # Voids 0 - Exam Patient is lethargic, no acute distress Examination of the heart S1 and S2 Examination of the lungs bilateral breath sounds are heard Abdomen is soft nontender Examination of lower extremities shows trace edema LUNCH COOK exam grossly intact - Labs CBC & Chem 7: 07/06/24 06:37 07/06/24 06:37 Labs: Abnormal Lab Results - Last 24 Hours (Table) 07/05/24 07/05/24 07/05/24 Range/Units 10:59 15:55 20:20 RBC (4.30-5.90) m/uL Hgb (13.0-17.5) gm/dL MCV (80.0-100.0) fL MCHC (31.0-37.0) g/dL RDW (11.5-15.5) % Neutrophils # (1.3-7.7) k/uL Lymphocytes # (1.0-4.8) k/uL Sodium (137-145) mmol/L Potassium (3.5-5.1) mmol/L Chloride (98-107) mmol/L Carbon Dioxide (22-30) mmol/L BUN (9-20) mg/dL Creatinine (0.66-1.25) mg/dL Glucose (74-99) mg/dL POC Glucose (mg/dL) 138 H 114 H 199 H (70-110) mg/dL 07/06/24 07/06/24 07/06/24 Range/Units 06:00 06:37 06:37 RBC 3.98 L (4.30-5.90) m/uL Hgb 12.3 L (13.0-17.5) gm/dL MCV 102.4 H (80.0-100.0) fL MCHC 30.2 L (31.0-37.0) g/dL RDW 17.4 H (11.5-15.5) % Neutrophils # 9.0 H (1.3-7.7) k/uL Lymphocytes # 0.3 L (1.0-4.8) k/uL Sodium 130 L (137-145) mmol/L Potassium 6.1 H* (3.5-5.1) mmol/L Chloride 94 L (98-107) mmol/L Carbon Dioxide 18 L (22-30) mmol/L BUN 129 H* (9-20) mg/dL Creatinine 5.89 H (0.66-1.25) mg/dL Glucose 168 H (74-99) mg/dL POC Glucose (mg/dL) 164 H (70-110) mg/dL Assessment and Plan Assessment: 1. Acute kidney injury, nonoliguric, cardiorenal. UA is benign and ultrasound does not show any evidence of hydronephrosis. Started hemodialysis on 06/10/2024 for significant oliguric acute kidney injury. 2. Acute on chronic diastolic CHF 3. Volume overload, maintained on daily hemodialysis/UF treatments 4. Hypertension with CKD stage IV 5. Acute hypoxic respiratory failure secondary to CHF 6. Coronary artery disease with history of coronary stents 7. Metabolic acidosis, improved 8. Right heel wound status post debridement Plan: plan for hemodialysis today , ok to use levophed as needed to maintain hemodynamics while undergoing HD Respiratory failure due to CHF. Consider other causes.
[2024-07-06 11:34] LABS: Glucose,Whole Blood 93 mg/dL (70-110)
--- NOTE | 2024-07-06 12:52 | P.PN ---
Subjective Progress Note Date: 07/06/24 Principal diagnosis: Respiratory failure. Patient is a 73-year-old male with past medical history significant for hypertension, hyperlipidemia, coronary artery disease with previous PCI/stenting, heart failure, chronic kidney disease, diabetes mellitus, chronic right heel wound, ulcerative colitis with previous colectomy and ileostomy. Of note, patient had a recent hospitalization late May and was just discharged 05/31/2024 for CHF exacerbation. Echocardiogram done during this hospitalization estimating a preserved left ventricular ejection fraction of 55 to 60%. Limited study, but no acute valvular abnormalities reported. Presented the emergency department on 06/04/2024 with a chief complaint of shortness of breath, mostly on exertion. Chest x-ray showing cardiomegaly, mild pulmonary vascular congestion, and a small pleural effusion on the left. NT proBNP e levated 2550. Currently receiving Lasix 80 mg twice daily. CBC: WBC count 10.2, hemoglobin 10.4, hematocrit 32.5, platelets 374. CMP: Sodium 135, potassium 4.6, chloride 101, serum bicarb 18, BUN 66, creatinine 2.71, glucose 139. Troponin is less than 0.012. Patient currently being evaluated on the general medical floor. Appears weak and deconditioned. He is resting in bed on 1 L/min nasal cannula. No respiratory distress noted. Complaining of a generalized headache, which he states is chronic. States that he has been short of breath on exertion for several months to almost 1 year. Particularly on exertion such as climbing stairs or walking to the bathroom. Denies history of COPD or asthma. Never tobacco smoker. Worked in an [employer] shop before he retired. Denies cough. Denies infectious-like symptoms. Current vital signs: Temperature 98 F, heart rate 78 bpm, blood pressure 145/54 mmHg, nontachypneic, SpO2 recorded at 91% on 1 L/min nasal cannula. The patient is seen today June 07, 2024 in follow-up on the regular medical floor. He is awake and alert in no acute distress. Sitting up at the bedside. Maintaining O2 saturations in the 90s on 3 L/min per nasal cannula. White count 9.8. Hemoglobin 8.9. Platelets 366. Sodium 140. Potassium 4.7. Bicarb 22. BUN 60. Creatinine 2.4. Glucose 97. He remains on DuoNeb and elations, Pulmicort inhalations. Lasix 80 mg IV every 12 hours. He is currently -1.1 L balance. Antibiotics in the form of cefepime and daptomycin for his diabetic ulcer of the right foot. X-ray revealed no osseous erosion or acute fracture. The patient is seen today June 08, 2024 in follow-up on the regular medical floor. He did have issues with worsening shortness of breath. He is currently on BiPAP 12/6 and 40% FiO2. White count 6.3. Hemoglobin 8.5. Platelets 357. Sodium 136. Potassium 5.8. Bicarb 21. BUN 64. Creatinine 2.4. Glucose 178. Chest x-ray continues to show evidence of congestive heart failure. He is currently on Lasix 80 mg IV every 12 hours. Continued on bronchodilators and steroids. Remains on antibiotics in the form of cefepime and daptomycin. The patient is seen today June 09, 2024 in follow-up on the regular medical floor. He is currently resting comfortably in bed. Awake and alert in no acute distress. Breathing easier today compared to yesterday. He is currently on BiPAP 12/6 and 40% FiO2. White count 10.1. Hemoglobin 8.0. Platelets 339. Sodium 136. Potassium 5.8. Bicarb 21. BUN 94. Creatinine 3.4. Glucose 234. He remains on DuoNeb and elations, Pulmicort inhalations, Solu-Medrol. Remains on IV diuretics. Remains on cefepime and daptomycin. Receiving Lokelma. The patient is seen today June 10, 2024 in follow-up on the regular medical floor. He is currently sitting up at the bedside. Awake and alert in no acute distress. He is requiring BiPAP support at 12/6 and 60% FiO2. Alternating with oxygen at 4 L/min per nasal cannula. He is continued on DuoNeb inhalations, Pulmicort inhalations, Solu-Medrol. He remains on antibiotics in the form of cefepime and daptomycin. Receiving iron supplement. Continued on IV diuretics. Continued on sodium bicarb tablets. White count 12.8. Hemoglobin 7.9. Platelets 335. Sodium 135. Potassium 5.2. Bicarb 23. BUN 118. Creatinine 4.1. Glucose 131. Plan is for placement of a hemodialysis catheter today and to receive hemodialysis today and tomorrow per nephrology Progress note dated 06/11/2024. The patient is seen in room 366. Currently, the patient is on BiPAP, with settings of 12/6, and 100%. The patient is undergoing hemodialysis today. The patient is getting saline at 10 cc an hour. The patient continues on cefepime, and daptomycin. Laboratory data today includes a sodium 137, potassium 4.9, chlorides 97, CO2 22, anion gap 18, BUN 108, and creatinine 4.1. Glucose is 106 . Calcium is 8.7. Chest x-ray from yesterday shows cardiomegaly, and diffuse infiltrates, likely related to underlying fluid overload. Patient was seen today on 06/24/2024, patient remains on 15 L high flow nasal cannula, surprisingly the patient tells me that he is feeling better, patient was started 2 days ago on dialysis/ultrafiltration, seems to be helping the patient significantly. His urine output is very marginal today. Patient remains on broad-spectrum antibiotics, he is being followed by many consultants including nephrology, patient remains on Zosyn and daptomycin. WBC count 17.7 hemoglobin 9.8 electrolytes showed low sodium of 130 potassium 6 BUN is 43 creatinine 2.97. To the right heel area for months now, and has been treated on outpatient setting for culture positive MRSA and positive for Proteus. Patient clearly has diabetic foot infection, and diabetic right foot ulcer. As well as stage III pressure ulcer of the right heel. Patient was seen today on 06/25/2024, patient is about the same, remains on hemodialysis, he is on 12 L high flow nasal cannula down from 15 yesterday. In spite of this the patient does not seem to be in any distress. Remains on broad-spectrum antibiotics, including Zosyn and daptomycin, patient was dialyzed yesterday, I am not certain if he is scheduled to have dialysis today. Continues to have leukocytosis with WBC of 23 hemoglobin 11.2 electrolytes are normal BUN is down to [address] of the chest from last week showed diffuse bilateral groundglass and airspace opacities throughout both lungs. And mild to moderate cardiomegaly. The findings are findings of either pulmonary edema or atypical pneumonia. Patient was seen today on 06/26/2024, patient is receiving hemodialysis today, his FiO2 requirement has gone up, today he is on Airvo at 80%. Patient is feeling better than expected considering his FiO2 requirement, chest x-ray continues show bilateral interstitial infiltrates/edema. WBC count is 11.8 hemoglobin is 10.1 potassium earlier today was 6.6 BUN 72 creatinine 4.3 and that being addressed by nephrology. Blood sugar was as high as 360 now it is 200. Patient was seen today on 06/27/2024, basically he is about the same, intermittently on Airvo and sometimes on BiPAP, still running low O2 saturation, chest x-ray discharge showing worsening interstitial edema, he felt better yesterday after his hemodialysis, today obviously he needs to go back on BiPAP. He was earlier on Airvo with FiO2 of 65% and 40 L flow, patient seemed to do much better when on BiPAP. Chest x-ray again is showing worsening vascular congestion andPulmonary edema, basic metabolic profile is normal bicarb is nor mal BUN is 59 creatinine 3.30. Patient was seen today on 06/28/2024, considering his overall condition, patient was transferred from the medical floor to the ICU mostly because of his complicated issues and could not be handled by nursing staff on the floor. Apparently the patient was having intermittent episodes of desaturations, requiring adjustment in his BiPAP and his Airvo. Finally patient was transferred to ICU, and basically we are maintaining the same treatment plan, hardly any change except while having dialysis today the patient was noted to have soft blood pressure, and I recommended the use of norepinephrine if needed. Otherwise patient is on BiPAP, 14/7/60%. The plan is to remove 3 L with hemodialysis today. Antibiotics ring remains on daptomycin and Zosyn patient remains marginal at best. Patient looks pale however his hemoglobin today is 9.6. The rest of the labs are unremarkable, his bicarb is 24 BUN is 92 creatinine 4.63. Seen today on 06/29/2024, remains in the ICU on BiPAP 14/7/60% he was earlier today on Airvo at 50 L and 70% FiO2. Patient is doing well, he normally does quite well after hemodialysis, he scheduled to have hemodialysis today. Platelets are coming down hence I recommended stopping subcu heparin for now. Patient remains on Zosyn empirically. No major changes noted in the last 24 hours, he is off norepinephrine not requiring any hemodynamic support. WBC count is 11.1 hemoglobin 9.2 electrolytes are normal except for sodium of 129 BU N is 61, creatinine 3.57 chest x-ray continues to show cardiomegaly and pulmonary edema with bilateral pleural effusions Patient was evaluated today on 06/30/2024, remains in the ICU, marginal at best. On BiPAP 14/7 FiO2 60%, and intermittently on Airvo at 50 L or 73% FiO2. O2 saturation is in the low 90s and high 80s most of the time. Patient remains on daptomycin remains on Zosyn, remains intermittently on hemodialysis, his last hemodialysis yesterday and 2 L were removed. Patient had debridement of his foot, and he had MRSA and Proteus in the right heel cultured. Patient has a right subclavian hemodialysis catheter. His oxygen requirement has been relatively high, unable to cut down on his FiO2. Chest x-ray continues show evidence of bilateral interstitial edema. And questionable underlying infiltrates. WBC count is 11 hemoglobin 9.5 sodium 128 potassium 3.8 BUN is 48 creatinine 2.58 Progress note dated July 01, 2024. 73-year-old male who was admitted back on June 04, where shortness of breath, and mental status changes. The patient has been in and out of the intensive care unit, coming back to the ICU, most recently on June 27. Currently, the patient is on Airvo, 60 L/min, with an FiO2 of 70%. He does also use BiPAP from time to time, with settings of 14/7 and 60%. He is getting hemodialysis, Monday, Monday, and Monday. At times, he is a bit confused. Dialysis plans today include removal of 2 L of fluid. The patient continues on daptomycin, Zosyn, and fluconazole. Current labs include a white count 13.3, hemoglobin 9.4, hematocrit 31.2, and a platelet count of 131,000. Sodium 127, potassium 4.2, chloride 92, CO2 23, BUN 90, creatinine 4.14. Glucose is 117. Calcium is 8.2. Chest x-ray shows cardiomegaly, and pulmonary vascular congestion, with pulmonary edema, bilateral pleural effusions. Progress note dated July 02, 2024. This is a 73-year-old male who was admitted back on June 04, with shortness of breath, mental status changes, acute kidney injury, and CHF. The patient has been in and out of the intensive care unit, most recently being readmitted on June 27. He remains on Airvo, with settings of 60 L/min and FiO2 of 70%. He did use BiPAP, for about 7 hours, with settings of 14/7 and 60%. He is not receiving any IV fluids. He is receiving hemodialysis today. The goal is a removal of 3 L. Current laboratory data reveals an white blood cell count of 8.4, hemoglobin 10, hematocrit 32.9, and a platelet count of 141,000. Sodium 131, potassium 4.9, chloride 95, CO2 25, anion gap 11, BUN 66, creatinine 3.19. Glucose is 224. Chest x-ray shows cardiomegaly, with pulmonary edema. Progress note dated July 03, 2024. 73-year-old male seen again today in room 254. The patient is currently on Airvo at 40 L/min with an FiO2 of 50%. He is not receiving any IV fluids. Currently, he is having daily hemodialysis. The goal today is to remove 2-1/2 L. He did use BiPAP a couple days ago, and we have not discontinued it from the room. BiPAP settings are 14/7, and 60%. Again he has not used it for the last 2 days. Current laboratory data includes a white count 9.6, hemoglobin 1.4, macro 36.5, and a normal platelet count. Sodium 130, potassium 5.5, chloride 94, CO2 21, anion gap 15, BUN 105, and creatinine 4.88. Glucose is 136. Calcium is 8.6. Chest x-ray again shows a pattern of CHF, cardiomegaly, and interstitial edema. Progress note dated July 04, 2024. 73-year-old male seen again in room 254. The patient continues to have severe hypoxemic respiratory failure. He is on Airvo, with settings of 40 L/min, and an FiO2 of 50%. He is not receiving any IV fluids. He will have hemodialysis today, and the goal is to remove 2 L. He has not used BiPAP for the last 2 days. The patient has decided to make himself a DO NOT RESUSCITATE patient. His chest x-ray is the same or slightly better. He remains on daptomycin, and Zosyn. Currently, white count 8.8, hemoglobin 11.7, hematocrit 37.5, and platelet count is normal. Sodium 128, potassium 5.3, chloride 94, CO2 19, anion gap 15, BUN 75, and creatinine 3.50. Glucose is 89. Calcium is 8.7. Chest x- ray as read by radiology, is unchanged. Progress note dated July 05, 2024. 73-year-old male seen in room 254. The patient continues on Airvo, with settings of 40 L/min, and FiO2 50%. No IV fluids. He is going to have hemodialysis today. The goal is to remove 2 to 3 L of fluid. The patient is a DO NOT RESUSCITATE patient. He continues on daptomycin and Zosyn. White count 10.1, hemoglobin 12.9, hematocrit 43.4, and platelet count 281,000. Sodium 132, potassium 6, chlorides 92, CO2 18, anion gap 22, BUN 116, and creatinine 5.42. Glucose is 138. Calcium is 8.9. Chest x-ray is largely unchanged. Progress note dated July 06, 2024. 69-year-old male seen in room 254. The patient continues on Airvo, at 40 L/min with an FiO2 of 50%. He is not receiving any IV fluids. He continues on daily hemodialysis. Today his potassium was 6.1. His blood pressure is soft during dialysis, requiring either limited dialysis, or the use of vasopressors. White count 10, hemoglobin 12.3, hematocrit 40.8, platelet count normal. Sodium 130, potassium 6.1, chlorides 94, CO2 18, anion gap 18, BUN 129, creatinine 5.89. Glucose 93. Calcium 8.6. Cultures are negative. No chest x-ray today. Objective - Vital Signs Vital signs: Vital Signs Temp 96.6 F L 07/06/24 12:00 Pulse 84 07/06/24 12:20 Resp 15 07/06/24 12:00 BP 88/56 07/06/24 12:00 Pulse Ox 95 07/06/24 12:15 FiO2 50 07/06/24 12:15 Intake & Output 07/05/24 07/06/24 07/06/24 18:59 06:59 18:59 Intake Total 1210 17.879 Output Total 900 150 0 Balance 310 -150 17.879 Weight 89.386 kg 89.4 kg Intake: Intake, IV Titration 17.879 Amount Norepinephrine 4 mg In 17.879 Sodium Chloride 0.9% 250 ml @ 0.03 MCG/KG/MIN 10. 217 mls/hr IV .Q24H JOSÉ Rx#:[id number] Oral 510 Hemodialysis 700 Output: Urine 0 0 0 Stool 200 150 Hemodialysis 150 Hemodialysis Net Amount 550 Other: Voiding Method Urinal # Voids 0 - Exam No acute distress, currently on Airvo. HEENT examination is grossly unremarkable. Mucous membranes are moist. No oral lesions. Neck supple. Full range of motion. No adenopathy thyromegaly or neck vein distention. Cardiovascular examination reveals regular rhythm rate. S1-S2 normal. No S3 or S4. No discernible murmur noted. Heart sounds are distant. Lungs reveal scattered bilateral rhonchi. Some basilar crackles are noted. No wheezes. Breath sounds are equal bilaterally. Abdomen soft bowel sounds are heard. No masses or tenderness. Extremities are intact. No cyanosis clubbing or edema. Right foot is wrapped. Skin is without rash or lesion. Neurologic examination is brief but nonfocal. - Labs CBC & Chem 7: 07/06/24 06:37 07/06/24 06:37 Labs: Abnormal Lab Results - Last 24 Hours (Table) 07/05/24 07/05/24 07/06/24 Range/Units 15:55 20:20 06:00 RBC (4.30-5.90) m/uL Hgb (13.0-17.5) gm/dL MCV (80.0-100.0) fL MCHC (31.0-37.0) g/dL RDW (11.5-15.5) % Neutrophils # (1.3-7.7) k/uL Lymphocytes # (1.0-4.8) k/uL Sodium (137-145) mmol/L Potassium (3.5-5.1) mmol/L Chloride (98-107) mmol/L Carbon Dioxide (22-30) mmol/L BUN (9-20) mg/dL Creatinine (0.66-1.25) mg/dL Glucose (74-99) mg/dL POC Glucose (mg/dL) 114 H 199 H 164 H (70-110) mg/dL 07/06/24 07/06/24 Range/Units 06:37 06:37 RBC 3.98 L (4.30-5.90) m/uL Hgb 12.3 L (13.0-17.5) gm/dL MCV 102.4 H (80.0-100.0) fL MCHC 30.2 L (31.0-37.0) g/dL RDW 17.4 H (11.5-15.5) % Neutrophils # 9.0 H (1.3-7.7) k/uL Lymphocytes # 0.3 L (1.0-4.8) k/uL Sodium 130 L (137-145) mmol/L Potassium 6.1 H* (3.5-5.1) mmol/L Chloride 94 L (98-107) mmol/L Carbon Dioxide 18 L (22-30) mmol/L BUN 129 H* (9-20) mg/dL Creatinine 5.89 H (0.66-1.25) mg/dL Glucose 168 H (74-99) mg/dL POC Glucose (mg/dL) (70-110) mg/dL Assessment and Plan Assessment: Acute exacerbation of diastolic congestive heart failure. Acute hypoxemic respiratory failure, secondary to above. Acute on chronic shortness of breath. Acute on chronic kidney disease now requiring renal replacement therapy to start today June 10, 2024. Hyperkalemia secondary to above. Acute on chronic anemia secondary to above. History of CAD with previous PCI. Diabetes mellitus with hyperglycemia. Hypertension. History of hyperlipidemia. Chronic cephalgia. History of UC with previous colectomy and ileostomy. History of prostate cancer status post chemoradiation. Chronic right heel wound, status post debridement on 05/28/2024. Obesity, with a BMI of 38.8 kg/m . Plan: Plan dated June 11, 2024. The patient is seen today in room 366. He continues on BiPAP, with settings of 12/6, and 100%. We are hoping that after hemodialysis today, the FiO2 can be reduced. The patient is receiving saline at 10 cc an hour. In addition, the patient continues on cefepime, and daptomycin. Currently, cultures are negative. All labs, x-rays, and medications are reviewed. 50 minutes was spent with this patient, including time spent interviewing the patient, and examining him, reviewing pertinent labs, x-rays, and medications, as well as discussing the diagnosis, treatment, and prognosis, with the patient, and the patient's family, as well as the bedside nurse. Plan dated July 01, 2024. The patient is seen today again in room 254. I saw him last back on June 11 . The patient is currently on Airvo, 60 L/min, with an FiO2 of 70%. He does occasionally use BiPAP, with settings of 14/7, 60%. The patient was initially admitted back on June 04. He came back to the intensive care unit, on June 27. He continues on daptomycin, Zosyn, and fluconazole. The patient has hemodialysis, Monday, Monday, and Monday. The goal for hemodialysis today is to remove 2 L of fluid. The patient remains a full code. Additional recommendations and suggestions are forthcoming. The patient's overall prognosis remains poor, and over the course of this entire hospital stay for 27 days, he has made very little progress. We will continue to follow and make recommendations along the way. All labs, x-rays, and medications are reviewed. Prognosis is guarded. Dictation was produced using [employer] software. Please excuse any grammatical, word or spelling errors. Plan dated July 02, 2024. The patient was seen today in room 254. He continues on Airvo, with settings of 60 L/min, and FiO2 70%. The patient did spend some time with BiPAP, roughly 7 h ours, with settings of 14/7 and an FiO2 of 60%. He is not receiving any IV fluids. The patient is undergoing hemodialysis today. The goal is to removal of 3 L. The patient is currently being evaluated for long-term acute care/specialized nursing facility. I had the opportunity to speak to the logan moya's , Sydnee, and gave her number different things to think about including CODE STATUS. She said he would never want to be on life support. I asked her to discuss that with him, and come up with a meeting on the minds. In addition, I told her that she would be more than welcome to take the patient elsewhere, if she thinks that he would benefit from a different facility such as [facility]. We also talked about CODE STATUS, and also talked about long-term acute care facility such as [facility] specialty or specialized nursing facility. Additional recommendations and suggestions are forthcoming. All labs x-rays and medications are reviewed. Prognosis is guarded. Dictation was produced using [employer] software. Please excuse any grammatical, word or spelling errors. Plan dated July 03, 2024. The patient is seen today in room 254. He remains on Airvo. He does remain critically ill. He is undergoing hemodialysis, on a daily basis. He is not receiving any IV fluids. His Airvo settings of 40 L/min with an FiO2 of 50%. He has not used the BiPAP for the last 48 hours. Labs, x-rays, and all medications are reviewed. I did have a long conversation with his Sydnee yesterday about various options. He remains a full code. He will talk to her again today, to make some sort of a decision. He is leaning towards not being a full code patient. We will continue to follow and make recommendations. Prognosis is guarded. Dictation was produced using [employer] software. Please excuse any grammatical, word or spelling errors. Plan dated July 04, 2024. The patient is seen again in room 254. He remains on Airvo. He has severe hypoxemic respiratory failure. The patient will receive hemodialysis today. The goal is to remove 2 L. The patient would like to go to [facility] specialty, but he cannot be receiving hemodialysis on a daily basis, only 3 days/week. Labs, x-rays, and medications are reviewed. Additional recommendations and suggestions are forthcoming. The patient is hoping to be discharged to a specialized nursing facility, when his hemodialysis requirements, are reduced. All labs, x-rays, and medications are reviewed. The patient is overall prognosis remains very guarded. He has not made much progress since he has been here. Dictation was produced using [employer] software. Please excuse any grammatical, word or spelling errors. Plan dated July 05, 2024. The patient remains critically ill. He remains on Airvo, with settings of 40 L/min, and FiO2 50%. He is not receiving any IV fluids. The patient is now a DO NOT RESUSCITATE patient. Unfortunately, he could not be transferred to a long-term acute care facility, having hemodialysis on a daily basis. It has to be reduced down to 3 times a week. The patient continues on daptomycin and Zosyn. All labs, x-rays, and medications are reviewed. We will continue to follow the patient, make recommendations along the way. His overall prognosis remains very poor. He finally did make a decision to make himself DNR which I think is appropriate. No additional recommendations are made. We will continue to follow. Dictation was produced using [employer] software. Please excuse any grammatical, word or spelling errors. Plan dated July 06, 2024. The patient will require hemodialysis on an ongoing daily basis. Today's potassium was 6.1. The patient cannot be transferred to long-term acute care, or specialized nursing facility, with every day dialysis. The patient is not receiving any IV fluids. Labs, x-rays, medications are reviewed. The patient is a DO NOT RESUSCITATE patient. The patient continues on antibiotics. We will continue to follow make recommendations along the way. The patient's overall prognosis is very poor. I did encourage the , Sydnee, to consider palliative care, or hospice. The patient has now been in the hospital for 32 days. Dictation was produced using [employer] software. Please excuse any grammatical, word or spelling errors. Time with Patient: Greater than 30
--- NOTE | 2024-07-06 14:39 | P.PN ---
Subjective Progress Note Date: 07/06/24 Principal diagnosis: Reason for follow-up is right heel diabetic foot ulcer with MRSA infection Patient is a 73-year-old male with a past medical history significant for diabetes mellitus hypertension hyperlipidemia osteomyelitis patient has been dealing with a chronic nonhealing wound to the right heel area for months now and is being treated in outpatient setting by Dr. Jernigan his public safety telecommunicator with recent outpatient culture positive for MRSA and is Proteus. On today's evaluation that is 07/06/2024, patient did not have any fever and denies any chills, patient is breathing slightly comfortably however still requiring high flow nasal cannula oxygen denies any chest pain no cough no abdominal pain no diarrhea reported. Patient white count is 10,000, creatinine is 5.89 blood culture has been negative Objective - Vital Signs Vital signs: Vital Signs Temp 96.8 F L 07/06/24 14:03 Pulse 85 07/06/24 14:15 Resp 15 07/06/24 14:15 BP 114/62 07/06/24 14:15 Pulse Ox 94 L 07/06/24 14:15 FiO2 50 07/06/24 12:15 Intake & Output 07/05/24 07/06/24 07/06/24 18:59 06:59 18:59 Intake Total 1210 417.879 Output Total 401 624 3778 Balance 310 150 -1982.121 Weight 89.386 kg 89.4 kg Intake: Intake, IV Titration 17.879 Amount Norepinephrine 4 mg In 17.879 Sodium Chloride 0.9% 250 ml @ 0.03 MCG/KG/MIN 10. 217 mls/hr IV .Q24H REPLACED BY [facility] Rx#:[id number] Oral 510 Hemodialysis 700 400 Output: Urine 0 0 0 Stool 200 150 Hemodialysis 150 1400 Hemodialysis Net Amount 550 1000 Other: Voiding Method Urinal # Voids 0 - Exam GENERAL DESCRIPTION: An elderly male lying in bed in no distress RESPIRATORY SYSTEM: Unlabored breathing , decreased breath sounds at bases HEART: S1 S2 regular rate and rhythm , ABDOMEN: Soft , no tenderness EXTREMITIES: Right hand wound is currently dressed - Labs CBC & Chem 7: 07/06/24 06:37 07/06/24 06:37 Labs: Abnormal Lab Results - Last 24 Hours (Table) 07/05/24 07/05/24 07/06/24 Range/Units 15:55 20:20 06:00 RBC (4.30-5.90) m/uL Hgb (13.0-17.5) gm/dL MCV (80.0-100.0) fL MCHC (31.0-37.0) g/dL RDW (11.5-15.5) % Neutrophils # (1.3-7.7) k/uL Lymphocytes # (1.0-4.8) k/uL Sodium (137-145) mmol/L Potassium (3.5-5.1) mmol/L Chloride (98-107) mmol/L Carbon Dioxide (22-30) mmol/L BUN (9-20) mg/dL Creatinine (0.66-1.25) mg/dL Glucose (74-99) mg/dL POC Glucose (mg/dL) 114 H 199 H 164 H (70-110) mg/dL 07/06/24 07/06/24 Range/Units 06:37 06:37 RBC 3.98 L (4.30-5.90) m/uL Hgb 12.3 L (13.0-17.5) gm/dL MCV 102.4 H (80.0-100.0) fL MCHC 30.2 L (31.0-37.0) g/dL RDW 17.4 H (11.5-15.5) % Neutrophils # 9.0 H (1.3-7.7) k/uL Lymphocytes # 0.3 L (1.0-4.8) k/uL Sodium 130 L (137-145) mmol/L Potassium 6.1 H* (3.5-5.1) mmol/L Chloride 94 L (98-107) mmol/L Carbon Dioxide 18 L (22-30) mmol/L BUN 129 H* (9-20) mg/dL Creatinine 5.89 H (0.66-1.25) mg/dL Glucose 168 H (74-99) mg/dL POC Glucose (mg/dL) (70-110) mg/dL Assessment and Plan (1) Diabetic infection of right foot Current Visit: Yes Status: Acute Code(s): E11.628 - TYPE 2 DIABETES MELLITUS WITH OTHER SKIN COMPLICATIONS; L08.9 - LOCAL INFECTION OF THE SKIN AND S UBCUTANEOUS TISSUE, UNSP SNOMED Code(s): 602337140 (2) MRSA (methicillin resistant staph aureus) culture positive Current Visit: Yes Status: Acute Code(s): Z22.322 - CARRIER OR SUSPECTED CARRIER OF METHICILLIN RESIS STAPH SNOMED Code(s): 889703984 (3) Diabetic ulcer of right foot Current Visit: No Status: Acute Code(s): E11.621 - TYPE 2 DIABETES MELLITUS WITH FOOT ULCER; L97.519 - NON-PRS CHRONIC ULCER OTH PRT RIGHT FOOT W UNSP SEVERITY SNOMED Code(s): 474297327 (4) Stage III pressure ulcer of right heel Current Visit: No Status: Acute Code(s): L89.613 - PRESSURE ULCER OF RIGHT HEEL, STAGE 3 SNOMED Code(s): 28006148045835 Plan: 1patient with a chronic nonhealing wound to the right heel which he has for couple of months the wound looks deep with a recent culture positive for Proteus and MRSA concerning for wound infection and question for possible deeper inf ection such as osteomyelitis as wound has been there for couple of months now 2- -patient has been evaluated by Dr. Carpenter and did have surgical debridement completed on 06/07/2024 and did have a further debridement at the bedside by his public safety telecommunicator on 06/14/2024 and has been repeat debridement done on 07/02/2024 4-patient has been afebrile and white count has normalized, we will continue with Zosyn daptomycin along with Diflucan while inpatient there will be no need for any IV antibiotic on discharge Dictation was produced using [employer] dictation software. please excuse any grammatical, word or spelling errors. Time with Patient: Less than 30
--- NOTE | 2024-07-06 15:14 | P.PN ---
Subjective Progress Note Date: 07/06/24 Pleasant 73-year-old patient follows with Dr. Dennis. Latin Professor: Dr. Bales Chronic medical conditions include hypertension, hyperlipidemia, type 2 diabetes, mood disorder, and CAD , ostomy for 25 years, July 2023 stent to the LAD and second diagonal branch by Dr. Bales. April 26, [address] Bales: Following a non-ST relation [place]: Patent stent to mid LAD. Late stent thrombosis of the second diagonal branch of the LAD. Severe disease involving the OM1 appears unchanged. Attempted balloon angioplasty performed to the second of diagonal branch with suboptimal results. Dose of Imdur was increased and Ranexa was added. Patient recently in the hospital from May 28 through May 31. Chronic headaches: MRI unremarkable. MR angio head and neck: MR angio head w ithout contrast: No evidence of aneurysm or significant stenosis. Atrophic right A1 segment. origin of the right posterior cerebral artery.MRI of the brain nonspecific. Was seen by neurology Dr. Gay. Patient to follow-up outpatient Chronic right heel wound seen by Dr. Carpenter from vascular deep debridement was carried out. No need for antibiotics. Patient to follow-up with Dr. Jernigan at the wound center. Shortness of breath: Was seen by cardiology. Not for any further intervention. Patient doing well when discharged. Patient presented increased shortness of breath when at home. His pulse ox dropped out of the 80s. Increasing shortness of breath. Decreased appetite. No fever or chills. June 10: Using his BiPAP. Patient seen this morning. Later this afternoon. Right femoral vein dialysis catheter was placed by Dr. Carpenter from vascular for dialysis. Baseline some shortness of breath. Due for first dialysis today. Patient is right heel culture grew MRSA Proteus P Corynebacterium on May 29. Patient is on IV daptomycin and IV cefepime per ID. June 11: Patient seen this afternoon. On BiPAP. Getting hemodialysis. Remains on IV daptomycin IV Zosyn. Tired. Also getting IV iron. Patient really did not eat today. Because of BiPAP. Cut back Levemir to 26 units at night. DC scheduled NovoLog for now. June 12: Overflowing the ICU. Remains on BiPAP. 04/05/%. at the bedside. Remains on IV daptomycin and IV Zosyn. For dialysis today. X-ray continues shows infiltrates. Significantly hypoxic. N.p.o. June 13: ICU. Remains on BiPAP. 12/6/90% moderate take anything by mouth. Spoke to the nurse have TPN lipids ordered. Remains on IV daptomycin IV Zosyn. Chest x-ray continues to show diffuse infiltrates. Continues to be followed by cardiology pulmonary ID nephrology. June 14: ICU. Later this afternoon patient was put on Airvo. 60/60. Has some delirium. Remains on IV daptomycin and IV Zosyn. Had 2 L ultrafiltration yesterday. Patient getting daily dialysis for now. As patient is oliguric per nephrology Lasix has been held. TPN was ordered yesterday per the nurse culture that returned to feed the patient. Will see how that goes. Dietitian on the case. June 15: ICU. Patient be getting hypotensive. Some medications held back by cardiology. Hemodialysis done today. Patient remains on Airvo though at 50/50. at the bedside. Plans this afternoon to get him up in the chair. Remains on daptomycin and IV Zosyn. IV Lasix been discontinued. Patient tolerating some liquid diet. June 16: Patient moved to the ICU. Remains on Airvo. 45/45. at the bedside. Tolerating full liquids. Spoke to the about the morphine. His headaches are chronic. Use Fioricet as needed. Remains on IV daptomycin and IV Zosyn. IV Solu-Medrol. Amlodipine dose cut back. PT OT. June 17: On 3 S., telemetry floor. Getting hemodialysis today. Remains on IV daptomycin IV Zosyn. On full liquid diet. Advance to ground diet. Minimal urine output. DC fluid restriction. Awake communicating. Accu-Cheks running high. Increase Levemir to 28 units subcu twice daily. Seen by PT OT. Maximum assist. On Airvo 40/40. Cut back Solu-Medrol to every 12. June 18: On a recliner. 7 L nasal cannula. Decreased appetite. at the bedside. Accu-Chek in 200s. IJ PermCath placement pending. Encourage oral intake. Ordered incentive spirometry June 19: Patient was on 7 L nasal cannula yesterday. Patient back on Airvo today. 40 L. Due for hemodialysis today. Had perm dialysis catheter placed right IJ by Dr. Carpenter today. Minimal intake today. Discussed with at the bedside. June 20: Recliner. High flow 15 L nasal cannula. at the bedside. Decreased oral intake.Tired. Hemodialysis today. June 21: Still decreased appetite. Remains on high flow 15 l nasal cannula. Remains on IV daptomycin IV Zosyn per ID. Being followed by multiple consu ltants spoke to the patient and . Encourage oral intake. June 22: Remains on 15 L high flow nasal cannula. at the bedside. Diet. Remains on IV daptomycin IV Zosyn. Decreased appetite. Will try ground diet. June 23: Monday to the bed. Ate a bit better according to the . Remains on 15 L nasal cannula. Oral candidiasis. Diflucan 200 mg x 1 today. Then 100 mg 3 times a week after each dialysis. Remains on daptomycin IV Zosyn per ID. Discussed with patient 06/24 I am resuming the care of the patient today He is sitting at the edge of the bed feels comfortable. Still requiring 15 units of oxygen, he states that he feels better than yesterday after he was s tarted on IV Solu-Medrol 40 mg twice daily. At home he was not on oxygen Also he is on daptomycin and Diflucan. He is also on antibiotic for his right foot ulcer with dressing in place. No pain 06/25 Patient feels the same Oxygen requirements down from 15 down to 12 L/min His labs showing more hemoconcentration with leukocytosis 23K, hemoglobin 12.2 and platelet 128 all went up little bit. Creatinine 2.5. Sodium improved 132 He remains on Zosyn daptomycin and fluconazole and IV Solu-Medrol 40 mg twice daily 06/26 Patient is breathing quietly while he is sitting in bed. He is getting 11 L via nasal cannula in the morning, however later on it looks like his oxygen supply was increased. Patient denies any other new symptoms His sodium today was 129 and potassium elevated 6.6 and creatinine 4.3. Patient getting dialysis for hyperkalemia protocol. WBC went down to 11.8. Hemoglobin stable at 10.1. Platelet count 122. Remains on triple antibiotics with Diflucan, daptomycin and Zosyn. Also is on IV Solu-Medrol 40 mg twice daily. No more panic attack. Yesterday after rounding he developed panic attacks and improved with Xanax 06/27 Patient required more oxygen starting yesterday and today his saturation well on higher dose of oxygen 40 L/min with FiO2 of 66% Chest x-ray showing cardiomegaly, pulmonary vascular congestion and pleural effusion Currently patient torsemide 40 mg daily Also is getting hemodialysis yesterday and there is another dialysis going on for tomorrow Also he remains on IV Solu-Medrol 40 mg and broad-spectrum antibiotics as above 06/28 Since yesterday patient oxygen requirement started worsening significantly he was placed on high flow nasal cannula at 40 L with FiO2 of 60 to 66%. By the evening patient required to be placed on BiPAP and he was sent to the ICU. Repeat chest x-ray showing cardiomegaly with pulmonary vascular congestion. Echocardiogram from 05/29/2024 showing ejection fraction of 55 to 60%. Patient also undergoing hemodialysis. Creatinine increased today to 4.63. Remains on torsemide, IV Solu-Medrol antibiotics with Zosyn daptomycin and fluconazole 06/29--- patient was seen and examined today. Continues to require on and off BiPAP, currently on heated high flow oxygen, undergoing hemodialysis. Remains on daptomycin and Zosyn. Pulmonary, ID, nephrology following. On Diflucan. Patient is afebrile, heart rate 78, respiratory rate 17, blood pressure 130/61,'s on 50 L heated high flow oxygen. WBC 11.1, hemoglobin 9.2, platelet 97. Sodium 129 potassium 4.0 BUN 61 creatinine 3.57. 06/30--patient was seen and examined today. Afebrile, heart rate 80, respiratory rate 19, blood pressure 121/58, saturating 94% on 50 L heated high flow. WBCs 11.0, hemoglobin 9.5, platelet 113. Sodium 128 potassium 3.8, chloride 90, CO2 26, BUN 48, creatinine 2.58. Patient reported urine output today. Infectious disease following, currently on Zosyn and daptomycin. ICU following. Nephrology following, plan for hemodialysis tomorrow, challenge ultrafiltration. Currently on torsemide. Received IV iron. 07/01--- patient was seen and examined today. Remained afebrile, heart rate 88, respiratory rate 20, blood pressure 126/61, saturating 94%, on 60 L heated high flow. WBCs 13.3, hemoglobin 9.4, platelet 131. Sodium 127 potassium 4.2 chloride 92 CO2 23 BUN 90 creatinine 4.14 patient underwent hemodialysis today, nephrology following plan for daily hemodialysis for fluid overload. ICU following. Currently on Diflucan, daptomycin and Zosyn. Infectious disease consulted and following. 07/02--patient was seen and examined today. Afebrile, heart rate 98, respiratory rate 18, blood pressure 127/53. Remains on heated high flow with 50 L. Easily desaturates. WBCs 8.4, hemoglobin 10.0, platelet 141. Sodium 131 potassium 4.9 chloride 95 CO2 25 BUN 66 creatinine 3.19. Tolerated BiPAP overnight. ICU following. Poor prognosis. 07/03--- patient was seen and examined today. Family at bedside. Currently on 40 L/min with FiO2 of 50%, underwent hemodialysis today. Afebrile, heart rate 92, respiratory rate 20, blood pressure 113/95.WBCs 9.6, hemoglobin 11.4, platelet 191. Sodium 130, potassium 5.5, chloride 94, CO2 21, BUN 105, creatinine 4.88. 07/04/patient was seen and examined today. Patient continues to require 40 L oxygen, with FiO2 50%. Patient underwent hemodialysis with 2 L fluid removal today. Discussed with nephrology, plan for daily hemodialysis until Monday. Chest x-ray showed same pulmonary venous congestion. Currently on daptomycin and Zosyn. WBCs 8.8, hemoglobin 11.7, platelet 229. Sodium 128 potassium 5.3 chloride 94 BUN 75 creatinine 3.50. 07/05patient was seen and examined today. Afebrile, heart rate 87, respirate 16, blood pressure 87/50, saturating 96%, on 40 L heated high flow at 50% FiO2. WBCs 10.0, hemoglobin 12.9, platelet 281. Sodium 132, potassium 6.0, chloride 92, CO2 18, BUN 116, creatinine 5.42. Undergoing hemodialysis today. Nephrolo gy planning for daily hemodialysis for now. Chest x-ray--same CHF. Remains on daptomycin and Zosyn per infectious disease. ICU on following. Nephrology following. 07/06. Patient seen and examined. Patient continues to be on Airvo, 40 L with an FiO2 of 50%. Patient getting daily dialysis. Blood work done today showed WBC 10, hemoglobin 12.3, platelet count 295, sodium 130, potassium 6.1, BUN 129, creatinine 5.89 patient currently undergoing dialysis. REVIEW OF SYSTEMS: CONSTITUTIONAL: No fever, no malaise,. CARDIOVASCULAR: No chest pain, no palpitations, no syncope. PULMONARY: No shortness of breath, no cough, GASTROINTESTINAL: No diarrhea, no nausea, no vomiting, no abdominal pain. NEUROLOGICAL: No headaches, no weakness, PHYSICAL EXAMINATION: GENERAL: The patient is alert and oriented x3, not in any acute distress. Well developed, well nourished. HEENT: Pupils are round and equally reacting to light. EOMI. No scleral icterus. No conjunctival pallor. Normocephalic, atraumatic. No pharyngeal erythema. No thyromegaly. CARDIOVASCULAR: S1 and S2 present. No murmurs, rubs, or gallops. PULMONARY: Chest is clear to auscultation, no wheezing or crackles. ABDOMEN: Soft, nontender, nondistended, normoactive bowel sounds. No palpable organomegaly. Ostomy seen MUSCULOSKELETAL: No joint swelling or deformity. EXTREMITIES: No cyanosis, clubbing, or pedal edema. NEUROLOGICAL: Gross neurological examination did not reveal any focal deficits. SKIN: No rashes. Assessment and plan Acute hypoxic respiratory failure: Bilateral pneumonia: Acute diastolic CHF: Acute COPD exacerbation: Right foot diabetic ulcer: MRSA culture positive: ROSELYN on CKD: Now requiring dialysis, right IJ permacath placed to 1025 Hyperkalemia: Resolved Oral candidiasis: Acute on chronic anemia: Anemia of chronic disease History of CAD with previous PCI Diabetes mellitus Hypertension Hyperlipidemia Chronic cephalgia Chronic ostomy History of prostate cancer status post chemo/radiation Chronic right heel wound status post debridement Obesity: Monitor vital signs Monitor CBC Monitor CMP Continue telemetry monitoring Continue oxygen supplementation Continue BiPAP as needed S/p debridement on 06/07 and 06/14 Continue daptomycin and Zosyn Continue aspirin, Plavix Lipitor Continue Norvasc Continue dialysis per nephrology Monitor blood sugar levels, continue current insulin regimen ID following Nephrology following ICU following Labs and medication were reviewed.. Continue same treatment. Continue with symptomatic treatment. Resume home medication. Monitor labs and vitals. DVT and GI prophylaxis. Further recommendations as per clinical course of the patient Dictation was produced using [employer] dictation software. please excuse any grammatical, word or spelling errors. Objective - Vital Signs Vital signs: Vital Signs Temp 97.0 F L 07/06/24 08:00 Pulse 82 07/06/24 08:47 Resp 15 07/06/24 08:00 BP 103/59 07/06/24 08:00 Pulse Ox 93 L 07/06/24 08:34 FiO2 50 07/06/24 08:34 Intake & Output 07/05/24 07/06/24 07/06/24 18:59 06:59 18:59 Intake Total 1210 Output Total 900 150 0 Balance 310 -150 0 Weight 89.386 kg 89.4 kg Intake: Oral 510 Hemodialysis 700 Output: Urine 0 0 0 Stool 200 150 Hemodialysis 150 Hemodialysis Net Amount 550 Other: # Voids 0 - Labs CBC & Chem 7: 07/06/24 06:37 07/06/24 06:37 Labs: Abnormal Lab Results - Last 24 Hours (Table) 07/05/24 07/05/24 07/05/24 Range/Units 09:41 10:59 15:55 RBC (4.30-5.90) m/uL Hgb (13.0-17.5) gm/dL MCV (80.0-100.0) fL MCHC (31.0-37.0) g/dL RDW (11.5-15.5) % Neutrophils # (1.3-7.7) k/uL Lymphocytes # (1.0-4.8) k/uL Sodium (137-145) mmol/L Potassium (3.5-5.1) mmol/L Chloride (98-107) mmol/L Carbon Dioxide (22-30) mmol/L BUN (9-20) mg/dL Creatinine (0.66-1.25) mg/dL Glucose (74-99) mg/dL POC Glucose (mg/dL) 149 H 138 H 114 H (70-110) mg/dL 07/05/24 07/06/24 07/06/24 Range/Units 20:20 06:00 06:37 RBC 3.98 L (4.30-5.90) m/uL Hgb 12.3 L (13.0-17.5) gm/dL MCV 102.4 H (80.0-100.0) fL MCHC 30.2 L (31.0-37.0) g/dL RDW 17.4 H (11.5-15.5) % Neutrophils # 9.0 H (1.3-7.7) k/uL Lymphocytes # 0.3 L (1.0-4.8) k/uL Sodium (137-145) mmol/L Potassium (3.5-5.1) mmol/L Chloride (98-107) mmol/L Carbon Dioxide (22-30) mmol/L BUN (9-20) mg/dL Creatinine (0.66-1.25) mg/dL Glucose (74-99) mg/dL POC Glucose (mg/dL) 199 H 164 H (70-110) mg/dL 07/06/24 Range/Units 06:37 RBC (4.30-5.90) m/uL Hgb (13.0-17.5) gm/dL MCV (80.0-100.0) fL MCHC (31.0-37.0) g/dL RDW (11.5-15.5) % Neutrophils # (1.3-7.7) k/uL Lymphocytes # (1.0-4.8) k/uL Sodium 130 L (137-145) mmol/L Potassium 6.1 H* (3.5-5.1) mmol/L Chloride 94 L (98-107) mmol/L Carbon Dioxide 18 L (22-30) mmol/L BUN 129 H* (9-20) mg/dL Creatinine 5.89 H (0.66-1.25) mg/dL Glucose 168 H (74-99) mg/dL POC Glucose (mg/dL) (70-110) mg/dL
[2024-07-06 16:12] LABS: Glucose,Whole Blood 121 mg/dL (70-110)
[2024-07-06] MEDS: DAPTOmycin 350 MG in SODIUM CHLORIDE 0.9% 50 ML IVPB SCH (16:55)
[2024-07-06 19:41] LABS: Glucose,Whole Blood 87 mg/dL (70-110)
[2024-07-07 06:04] LABS: Glucose,Whole Blood 97 mg/dL (70-110)
[2024-07-07 06:24] LABS: African American GFR (CKD) 18 (>60 ml/min/1.73 sqM); Anion Gap 14 mmol/L; Blood Urea Nitrogen 70 mg/dL (9-20); Calcium 8.4 mg/dL (8.4-10.2); Carbon Dioxide 21 mmol/L (22-30); Chloride 97 mmol/L (98-107); Glucose 93 mg/dL (74-99); Non-African American GFR(CKD) 15 (>60 ml/min/1.73 sqM); Sodium 132 mmol/L (137-145)
[2024-07-07 06:31] LABS: Magnesium 2.2 mg/dL (1.6-2.3); Potassium 5.7 mmol/L (3.5-5.1)
--- NOTE | 2024-07-07 06:44 | XR ---
EXAMINATION TYPE: XR chest 1V portable DATE OF EXAM: 07/07/2024 COMPARISON: 07/05/2024 CLINICAL INDICATION: Male, 73 years old with history of CHF/AirVo dependent; TECHNIQUE: Single frontal view of the chest is obtained. FINDINGS: There is no change in position of the right-sided permacath. There are stable diffuse small nodular opacities consistent with pulmonary edema. The heart is enlarged. There is no definite pleural effusion or pneumothorax. The osseous structures are intact. IMPRESSION: No change in the acute cardiopulmonary processes described above. [facility], , 07/07/2024 6:42 AM
[2024-07-07 11:29] LABS: Glucose,Whole Blood 96 mg/dL (70-110)
--- NOTE | 2024-07-07 11:33 | P.PN ---
Subjective Progress Note Date: 07/07/24 Patient is seen for follow-up for chronic kidney disease and acute kidney injury. Started hemodialysis on 06/10/2024 for worsening acute kidney injury and volume overload. Patient has been dialyzed almost on a daily basis due to volume overload and hypoxic respiratory failure. Patient is seen in the ICU. he had HD yesterday, tolerated 1 L UF, he was on levophed while getting HD, off levo this morning remains on High flow O2 Objective - Vital Signs Vital signs: Vital Signs Temp 96.6 F L 07/07/24 08:00 Pulse 67 07/07/24 11:00 Resp 12 07/07/24 11:00 BP 112/64 07/07/24 11:00 Pulse Ox 100 07/07/24 11:00 FiO2 50 07/07/24 09:05 Intake & Output 07/06/24 07/07/24 07/07/24 17:59 06:59 18:59 Intake Total 200 Output Total 75 Balance 125 Weight Intake: IV DAPTOmycin 350 mg In Sodium Chloride 0.9% 50 ml @ 100 mls/hr IVPB Q48H [facility] Rx#:[id number] Piperacillin-Tazobactam 3 .375 gm In Sodium Chloride 0.9% 100 ml @ 25 mls/hr IVPB Q12HR [facility] Rx #:[id number] Intake, IV Titration Amount Norepinephrine 4 mg In Sodium Chloride 0.9% 250 ml @ 0.03 MCG/KG/MIN 10. 217 mls/hr IV .Q24H [facility] Rx#:[id number] Oral 200 Hemodialysis Output: Urine 0 Stool 75 Hemodialysis Hemodialysis Net Amount - Exam Patient is lethargic, no acute distress Examination of the heart S1 and S2 Examination of the lungs bilateral breath sounds are heard Abdomen is soft nontender Examination of lower extremities shows trace edema TECHNICIAN INVENTORY SPECIALIST exam grossly intact - Labs CBC & Chem 7: 07/06/24 06:37 07/07/24 05:44 Labs: Abnormal Lab Results - Last 24 Hours (Table) 07/06/24 07/07/24 Range/Units 16:11 05:44 Sodium 132 L (137-145) mmol/L Potassium 5.7 H (3.5-5.1) mmol/L Chloride 97 L (98-107) mmol/L Carbon Dioxide 21 L (22-30) mmol/L BUN 70 H (9-20) mg/dL Creatinine 3.66 H (0.66-1.25) mg/dL POC Glucose (mg/dL) 121 H (70-110) mg/dL Assessment and Plan Assessment: 1. Acute kidney injury, nonoliguric, cardiorenal. UA is benign and ultrasound does not show any evidence of hydronephrosis. Started hemodialysis on 06/10/2024 for significant oliguric acute kidney injury. 2. Acute on chronic diastolic CHF 3. Volume overload, maintained on daily hemodialysis/UF treatments 4. Hypertension with CKD stage IV 5. Acute hypoxic respiratory failure secondary to CHF 6. Coronary artery disease with history of coronary stents 7. Metabolic acidosis, improved 8. Right heel wound status post debridement Plan: plan for hemodialysis tomorrow , ok to use levophed as needed to maintain hemodynamics while undergoing HD can increase Midodrine to 15 mg TID Respiratory failure due to CHF. Consider other causes. continue RAFA
--- NOTE | 2024-07-07 11:59 | P.PN ---
Subjective Progress Note Date: 07/07/24 Principal diagnosis: Respiratory failure. Patient is a 73-year-old male with past medical history significant for hypertension, hyperlipidemia, coronary artery disease with previous PCI/stenting, heart failure, chronic kidney disease, diabetes mellitus, chronic right heel wound, ulcerative colitis with previous colectomy and ileostomy. Of note, patient had a recent hospitalization late May and was just discharged 05/31/2024 for CHF exacerbation. Echocardiogram done during this hospitalization estimating a preserved left ventricular ejection fraction of 55 to 60%. Limited study, but no acute valvular abnormalities reported. Presented the emergency department on 06/04/2024 with a chief complaint of shortness of breath, mostly on exertion. Chest x-ray showing cardiomegaly, mild pulmonary vascular congestion, and a small pleural effusion on the left. NT proBNP e levated 2550. Currently receiving Lasix 80 mg twice daily. CBC: WBC count 10.2, hemoglobin 10.4, hematocrit 32.5, platelets 374. CMP: Sodium 135, potassium 4.6, chloride 101, serum bicarb 18, BUN 66, creatinine 2.71, glucose 139. Troponin is less than 0.012. Patient currently being evaluated on the general medical floor. Appears weak and deconditioned. He is resting in bed on 1 L/min nasal cannula. No respiratory distress noted. Complaining of a generalized headache, which he states is chronic. States that he has been short of breath on exertion for several months to almost 1 year. Particularly on exertion such as climbing stairs or walking to the bathroom. Denies history of COPD or asthma. Never tobacco smoker. Worked in an [employer] shop before he retired. Denies cough. Denies infectious-like symptoms. Current vital signs: Temperature 98 F, heart rate 78 bpm, blood pressure 145/54 mmHg, nontachypneic, SpO2 recorded at 91% on 1 L/min nasal cannula. The patient is seen today June 07, 2024 in follow-up on the regular medical floor. He is awake and alert in no acute distress. Sitting up at the bedside. Maintaining O2 saturations in the 90s on 3 L/min per nasal cannula. White count 9.8. Hemoglobin 8.9. Platelets 366. Sodium 140. Potassium 4.7. Bicarb 22. BUN 60. Creatinine 2.4. Glucose 97. He remains on DuoNeb and elations, Pulmicort inhalations. Lasix 80 mg IV every 12 hours. He is currently -1.1 L balance. Antibiotics in the form of cefepime and daptomycin for his diabetic ulcer of the right foot. X-ray revealed no osseous erosion or acute fracture. The patient is seen today June 08, 2024 in follow-up on the regular medical floor. He did have issues with worsening shortness of breath. He is currently on BiPAP 12/6 and 40% FiO2. White count 6.3. Hemoglobin 8.5. Platelets 357. Sodium 136. Potassium 5.8. Bicarb 21. BUN 64. Creatinine 2.4. Glucose 178. Chest x-ray continues to show evidence of congestive heart failure. He is currently on Lasix 80 mg IV every 12 hours. Continued on bronchodilators and steroids. Remains on antibiotics in the form of cefepime and daptomycin. The patient is seen today June 09, 2024 in follow-up on the regular medical floor. He is currently resting comfortably in bed. Awake and alert in no acute distress. Breathing easier today compared to yesterday. He is currently on BiPAP 12/6 and 40% FiO2. White count 10.1. Hemoglobin 8.0. Platelets 339. Sodium 136. Potassium 5.8. Bicarb 21. BUN 94. Creatinine 3.4. Glucose 234. He remains on DuoNeb and elations, Pulmicort inhalations, Solu-Medrol. Remains on IV diuretics. Remains on cefepime and daptomycin. Receiving Lokelma. The patient is seen today June 10, 2024 in follow-up on the regular medical floor. He is currently sitting up at the bedside. Awake and alert in no acute distress. He is requiring BiPAP support at 12/6 and 60% FiO2. Alternating with oxygen at 4 L/min per nasal cannula. He is continued on DuoNeb inhalations, Pulmicort inhalations, Solu-Medrol. He remains on antibiotics in the form of cefepime and daptomycin. Receiving iron supplement. Continued on IV diuretics. Continued on sodium bicarb tablets. White count 12.8. Hemoglobin 7.9. Platelets 335. Sodium 135. Potassium 5.2. Bicarb 23. BUN 118. Creatinine 4.1. Glucose 131. Plan is for placement of a hemodialysis catheter today and to receive hemodialysis today and tomorrow per nephrology Progress note dated 06/11/2024. The patient is seen in room 366. Currently, the patient is on BiPAP, with settings of 12/6, and 100%. The patient is undergoing hemodialysis today. The patient is getting saline at 10 cc an hour. The patient continues on cefepime, and daptomycin. Laboratory data today includes a sodium 137, potassium 4.9, chlorides 97, CO2 22, anion gap 18, BUN 108, and creatinine 4.1. Glucose is 106 . Calcium is 8.7. Chest x-ray from yesterday shows cardiomegaly, and diffuse infiltrates, likely related to underlying fluid overload. Patient was seen today on 06/24/2024, patient remains on 15 L high flow nasal cannula, surprisingly the patient tells me that he is feeling better, patient was started 2 days ago on dialysis/ultrafiltration, seems to be helping the patient significantly. His urine output is very marginal today. Patient remains on broad-spectrum antibiotics, he is being followed by many consultants including nephrology, patient remains on Zosyn and daptomycin. WBC count 17.7 hemoglobin 9.8 electrolytes showed low sodium of 130 potassium 6 BUN is 43 creatinine 2.97. To the right heel area for months now, and has been treated on outpatient setting for culture positive MRSA and positive for Proteus. Patient clearly has diabetic foot infection, and diabetic right foot ulcer. As well as stage III pressure ulcer of the right heel. Patient was seen today on 06/25/2024, patient is about the same, remains on hemodialysis, he is on 12 L high flow nasal cannula down from 15 yesterday. In spite of this the patient does not seem to be in any distress. Remains on broad-spectrum antibiotics, including Zosyn and daptomycin, patient was dialyzed yesterday, I am not certain if he is scheduled to have dialysis today. Continues to have leukocytosis with WBC of 23 hemoglobin 11.2 electrolytes are normal BUN is down to [address] of the chest from last week showed diffuse bilateral groundglass and airspace opacities throughout both lungs. And mild to moderate cardiomegaly. The findings are findings of either pulmonary edema or atypical pneumonia. Patient was seen today on 06/26/2024, patient is receiving hemodialysis today, his FiO2 requirement has gone up, today he is on Airvo at 80%. Patient is feeling better than expected considering his FiO2 requirement, chest x-ray continues show bilateral interstitial infiltrates/edema. WBC count is 11.8 hemoglobin is 10.1 potassium earlier today was 6.6 BUN 72 creatinine 4.3 and that being addressed by nephrology. Blood sugar was as high as 360 now it is 200. Patient was seen today on 06/27/2024, basically he is about the same, intermittently on Airvo and sometimes on BiPAP, still running low O2 saturation, chest x-ray discharge showing worsening interstitial edema, he felt better yesterday after his hemodialysis, today obviously he needs to go back on BiPAP. He was earlier on Airvo with FiO2 of 65% and 40 L flow, patient seemed to do much better when on BiPAP. Chest x-ray again is showing worsening vascular congestion andPulmonary edema, basic metabolic profile is normal bicarb is nor mal BUN is 59 creatinine 3.30. Patient was seen today on 06/28/2024, considering his overall condition, patient was transferred from the medical floor to the ICU mostly because of his complicated issues and could not be handled by nursing staff on the floor. Apparently the patient was having intermittent episodes of desaturations, requiring adjustment in his BiPAP and his Airvo. Finally patient was transferred to ICU, and basically we are maintaining the same treatment plan, hardly any change except while having dialysis today the patient was noted to have soft blood pressure, and I recommended the use of norepinephrine if needed. Otherwise patient is on BiPAP, 14/7/60%. The plan is to remove 3 L with hemodialysis today. Antibiotics ring remains on daptomycin and Zosyn patient remains marginal at best. Patient looks pale however his hemoglobin today is 9.6. The rest of the labs are unremarkable, his bicarb is 24 BUN is 92 creatinine 4.63. Seen today on 06/29/2024, remains in the ICU on BiPAP 14/7/60% he was earlier today on Airvo at 50 L and 70% FiO2. Patient is doing well, he normally does quite well after hemodialysis, he scheduled to have hemodialysis today. Platelets are coming down hence I recommended stopping subcu heparin for now. Patient remains on Zosyn empirically. No major changes noted in the last 24 hours, he is off norepinephrine not requiring any hemodynamic support. WBC count is 11.1 hemoglobin 9.2 electrolytes are normal except for sodium of 129 BU N is 61, creatinine 3.57 chest x-ray continues to show cardiomegaly and pulmonary edema with bilateral pleural effusions Patient was evaluated today on 06/30/2024, remains in the ICU, marginal at best. On BiPAP 14/7 FiO2 60%, and intermittently on Airvo at 50 L or 73% FiO2. O2 saturation is in the low 90s and high 80s most of the time. Patient remains on daptomycin remains on Zosyn, remains intermittently on hemodialysis, his last hemodialysis yesterday and 2 L were removed. Patient had debridement of his foot, and he had MRSA and Proteus in the right heel cultured. Patient has a right subclavian hemodialysis catheter. His oxygen requirement has been relatively high, unable to cut down on his FiO2. Chest x-ray continues show evidence of bilateral interstitial edema. And questionable underlying infiltrates. WBC count is 11 hemoglobin 9.5 sodium 128 potassium 3.8 BUN is 48 creatinine 2.58 Progress note dated July 01, 2024. 73-year-old male who was admitted back on June 04, where shortness of breath, and mental status changes. The patient has been in and out of the intensive care unit, coming back to the ICU, most recently on June 27. Currently, the patient is on Airvo, 60 L/min, with an FiO2 of 70%. He does also use BiPAP from time to time, with settings of 14/7 and 60%. He is getting hemodialysis, Monday, Monday, and Monday. At times, he is a bit confused. Dialysis plans today include removal of 2 L of fluid. The patient continues on daptomycin, Zosyn, and fluconazole. Current labs include a white count 13.3, hemoglobin 9.4, hematocrit 31.2, and a platelet count of 131,000. Sodium 127, potassium 4.2, chloride 92, CO2 23, BUN 90, creatinine 4.14. Glucose is 117. Calcium is 8.2. Chest x-ray shows cardiomegaly, and pulmonary vascular congestion, with pulmonary edema, bilateral pleural effusions. Progress note dated July 02, 2024. This is a 73-year-old male who was admitted back on June 04, with shortness of breath, mental status changes, acute kidney injury, and CHF. The patient has been in and out of the intensive care unit, most recently being readmitted on June 27. He remains on Airvo, with settings of 60 L/min and FiO2 of 70%. He did use BiPAP, for about 7 hours, with settings of 14/7 and 60%. He is not receiving any IV fluids. He is receiving hemodialysis today. The goal is a removal of 3 L. Current laboratory data reveals an white blood cell count of 8.4, hemoglobin 10, hematocrit 32.9, and a platelet count of 141,000. Sodium 131, potassium 4.9, chloride 95, CO2 25, anion gap 11, BUN 66, creatinine 3.19. Glucose is 224. Chest x-ray shows cardiomegaly, with pulmonary edema. Progress note dated July 03, 2024. 73-year-old male seen again today in room 254. The patient is currently on Airvo at 40 L/min with an FiO2 of 50%. He is not receiving any IV fluids. Currently, he is having daily hemodialysis. The goal today is to remove 2-1/2 L. He did use BiPAP a couple days ago, and we have not discontinued it from the room. BiPAP settings are 14/7, and 60%. Again he has not used it for the last 2 days. Current laboratory data includes a white count 9.6, hemoglobin 1.4, macro 36.5, and a normal platelet count. Sodium 130, potassium 5.5, chloride 94, CO2 21, anion gap 15, BUN 105, and creatinine 4.88. Glucose is 136. Calcium is 8.6. Chest x-ray again shows a pattern of CHF, cardiomegaly, and interstitial edema. Progress note dated July 04, 2024. 73-year-old male seen again in room 254. The patient continues to have severe hypoxemic respiratory failure. He is on Airvo, with settings of 40 L/min, and an FiO2 of 50%. He is not receiving any IV fluids. He will have hemodialysis today, and the goal is to remove 2 L. He has not used BiPAP for the last 2 days. The patient has decided to make himself a DO NOT RESUSCITATE patient. His chest x-ray is the same or slightly better. He remains on daptomycin, and Zosyn. Currently, white count 8.8, hemoglobin 11.7, hematocrit 37.5, and platelet count is normal. Sodium 128, potassium 5.3, chloride 94, CO2 19, anion gap 15, BUN 75, and creatinine 3.50. Glucose is 89. Calcium is 8.7. Chest x- ray as read by radiology, is unchanged. Progress note dated July 05, 2024. 73-year-old male seen in room 254. The patient continues on Airvo, with settings of 40 L/min, and FiO2 50%. No IV fluids. He is going to have hemodialysis today. The goal is to remove 2 to 3 L of fluid. The patient is a DO NOT RESUSCITATE patient. He continues on daptomycin and Zosyn. White count 10.1, hemoglobin 12.9, hematocrit 43.4, and platelet count 281,000. Sodium 132, potassium 6, chlorides 92, CO2 18, anion gap 22, BUN 116, and creatinine 5.42. Glucose is 138. Calcium is 8.9. Chest x-ray is largely unchanged. Progress note dated July 06, 2024. 69-year-old male seen in room 254. The patient continues on Airvo, at 40 L/min with an FiO2 of 50%. He is not receiving any IV fluids. He continues on daily hemodialysis. Today his potassium was 6.1. His blood pressure is soft during dialysis, requiring either limited dialysis, or the use of vasopressors. White count 10, hemoglobin 12.3, hematocrit 40.8, platelet count normal. Sodium 130, potassium 6.1, chlorides 94, CO2 18, anion gap 18, BUN 129, creatinine 5.89. Glucose 93. Calcium 8.6. Cultures are negative. No chest x-ray today. Progress note dated July 07, 2024. 73-year-old male seen in room 254. The patient continues on Airvo, with settings of 40 L/min, and FiO2 50%. He is not receiving any IV fluids. He is a DO NOT RESUSCITATE patient. The patient did have hemodialysis yesterday, with 1 L being removed. The patient continues on Zosyn, fluconazole, and daptomycin. The patient is still requiring every day hemodialysis, which is preventing him from being discharged to long-term acute care. Clinically he is doing about the same. Any attempts to reduce his FiO2, will cause a drop in his saturations. Current labs include a sodium 132, potassium 5.7, chlorides 97, CO2 21, BUN 70, and creatinine 3.66. The patient's glucose is 96. Calcium 8.4, magnesium 2.2. Chest x-ray continues to show cardiomegaly, with pulmonary vascular congestion. Objective - Vital Signs Vital signs: Vital Signs Temp 96.6 F L 07/07/24 08:00 Pulse 67 07/07/24 11:00 Resp 12 07/07/24 11:00 BP 112/64 07/07/24 11:00 Pulse Ox 100 07/07/24 11:00 FiO2 50 07/07/24 09:05 Intake & Output 07/06/24 07/07/24 07/07/24 17:59 06:59 18:59 Intake Total 200 Output Total 75 Balance 125 Weight Intake: IV DAPTOmycin 350 mg In Sodium Chloride 0.9% 50 ml @ 100 mls/hr IVPB Q48H JOS[facility] Rx#:[id number] Piperacillin-Tazobactam 3 .375 gm In Sodium Chloride 0.9% 100 ml @ 25 mls/hr IVPB Q12HR JOS[facility] Rx #:[id number] Intake, IV Titration Amount Norepinephrine 4 mg In Sodium Chloride 0.9% 250 ml @ 0.03 MCG/KG/MIN 10. 217 mls/hr IV .Q24H JOS[facility] Rx#:[id number] Oral 200 Hemodialysis Output: Urine 0 Stool 75 Hemodialysis Hemodialysis Net Amount - Exam No acute distress, currently on Airvo. HEENT examination is grossly unremarkable. Mucous membranes are moist. No oral lesions. Neck supple. Full range of motion. No adenopathy thyromegaly or neck vein distention. Cardiovascular examination reveals regular rhythm rate. S1-S2 normal. No S3 or S4. No discernible murmur noted. Heart sounds are distant. Lungs reveal scattered bilateral rhonchi. Some basilar crackles are noted. No wheezes. Breath sounds are equal bilaterally. Abdomen soft bowel sounds are heard. No masses or tenderness. Extremities are intact. No cyanosis clubbing or edema. Right foot is wrapped. Skin is without rash or lesion. Neurologic examination is brief but nonfocal. - Labs CBC & Chem 7: 07/06/24 06:37 07/07/24 05:44 Labs: Abnormal Lab Results - Last 24 Hours (Table) 07/06/24 07/07/24 Range/Units 16:11 05:44 Sodium 132 L (137-145) mmol/L Potassium 5.7 H (3.5-5.1) mmol/L Chloride 97 L (98-107) mmol/L Carbon Dioxide 21 L (22-30) mmol/L BUN 70 H (9-20) mg/dL Creatinine 3.66 H (0.66-1.25) mg/dL POC Glucose (mg/dL) 121 H (70-110) mg/dL Assessment and Plan Assessment: Acute exacerbation of diastolic congestive heart failure. Acute hypoxemic respiratory failure, secondary to above. Acute on chronic shortness of breath. Acute on chronic kidney disease now requiring renal replacement therapy to start today June 10, 2024. Hyperkalemia secondary to above. Acute on chronic anemia secondary to above. History of CAD with previous PCI. Diabetes mellitus with hyperglycemia. Hypertension. History of hyperlipidemia. Chronic cephalgia. History of UC with previous colectomy and ileostomy. History of prostate cancer status post chemoradiation. Chronic right heel wound, status post debridement on 05/28/2024. Obesity, with a BMI of 38.8 kg/m . Plan: Plan dated June 11, 2024. The patient is seen today in room 366. He continues on BiPAP, with settings of 12/6, and 100%. We are hoping that after hemodialysis today, the FiO2 can be reduced. The patient is receiving saline at 10 cc an hour. In addition, the patient continues on cefepime, and daptomycin. Currently, cultures are negative. All labs, x-rays, and medications are reviewed. 50 minutes was spent with this patient, including time spent interviewing the patient, and examining him, reviewing pertinent labs, x-rays, and medications, as well as discussing the diagnosis, treatment, and prognosis, with the patient, and the patient's family, as well as the bedside nurse. Plan dated July 01, 2024. The patient is seen today again in room 254. I saw him last back on June 11. The patient is currently on Airvo, 60 L/min, with an FiO2 of 70%. He does occasionally use BiPAP, with settings of 14/7, 60%. The patient was initially admitted back on June 04. He came back to the intensive care unit, on June 27. He continues on daptomycin, Zosyn, and fluconazole. The patient has hemodialysis, Monday, Monday, and Monday. The goal for hemodialysis today is to remove 2 L of fluid. The patient remains a full code. Additional recommendations and suggestions are forthcoming. The patient's overall prognosis remains poor, and over the course of this entire hospital stay for 27 days, he has made very little progress. We will continue to follow and make recommendations along the way. All labs, x-rays, and medications are reviewed. Prognosis is guarded. Dictation was produced using [employer] dictation software. Please excuse any grammatical, word or spelling errors. Plan dated July 02, 2024. The patient was seen today in room 254. He continues on Airvo, with settings of 60 L/min, and FiO2 70%. The patient did spend some time with BiPAP, roughly 7 hours, with settings of 14/7 and an FiO2 of 60%. He is not receiving any IV fluids. The patient is undergoing hemodialysis today. The goal is to removal of 3 L. The patient is currently being evaluated for long-term acute care/specialized nursing facility. I had the opportunity to speak to the patient's , Sydnee, and gave her number different things to think about including CODE STATUS. She said he would never want to be on life support. I asked her to discuss that with him, and come up with a meeting on the minds. In addition, I told her that she would be more than welcome to take the patient elsewhere, if she thinks that he would benefit from a different facility such as [facility]. We also talked about CODE STATUS, and also talked about long-term acute care facility such as [facility] specialty or specialized nursing facility. Additional recommendations and suggestions are forthcoming. All labs x-rays and medications are reviewed. Prognosis is guarded. Dictation was produced using [employer] software. Please excuse any grammatical, word or spelling errors. Plan dated July 03, 2024. The patient is seen today in room 254. He remains on Airvo. He does remain critically ill. He is undergoing hemodialysis, on a daily basis. He is not receiving any IV fluids. His Airvo settings of 40 L/min with an FiO2 of 50%. He has not used the BiPAP for the last 48 hours. Labs, x-rays, and all medications are reviewed. I did have a long conversation with his Sydnee yesterday about various options. He remains a full code. He will talk to her again today, to make some sort of a decision. He is leaning towards not being a full code patient. We will continue to follow and make recommendations. Prognosis is guarded. Dictation was produced using [employer] software. Please excuse any grammatical, word or spelling errors. Plan dated July 04, 2024. The patient is seen again in room 254. He remains on Airvo. He has severe hypoxemic respiratory failure. The patient will receive hemodialysis today. The goal is to remove 2 L. The patient would like to go to select specialty, bu t he cannot be receiving hemodialysis on a daily basis, only 3 days/week. Labs, x-rays, and medications are reviewed. Additional recommendations and suggestions are forthcoming. The patient is hoping to be discharged to a specialized nursing facility, when his hemodialysis requirements, are reduced. All labs, x-rays, and medications are reviewed. The patient is overall prognosis remains very guarded. He has not made much progress since he has been here. Dictation was produced using [employer] software. Please excuse any grammatical, word or spelling errors. Plan dated July 05, 2024. The patient remains critically ill. He remains on Airvo, with settings of 40 L/min, and FiO2 50%. He is not receiving any IV fluids. The patient is now a DO NOT RESUSCITATE patient. Unfortunately, he could not be transferred to a long-term acute care facility, having hemodialysis on a daily basis. It has to be reduced down to 3 times a week. The patient continues on daptomycin and Zosy n. All labs, x-rays, and medications are reviewed. We will continue to follow the patient, make recommendations along the way. His overall prognosis remains very poor. He finally did make a decision to make himself DNR which I think is appropriate. No additional recommendations are made. We will continue to follow. Dictation was produced using [employer] software. Please excuse any grammatical, word or spelling errors. Plan dated July 06, 2024. The patient will require hemodialysis on an ongoing daily basis. Today's potassium was 6.1. The patient cannot be transferred to long-term acute care, or specialized nursing facility, with every day dialysis. The patient is not receiving any IV fluids. Labs, x-rays, medications are reviewed. The patient is a DO NOT RESUSCITATE patient. The patient continues on antibiotics. We will continue to follow make recommendations along the way. The patient's overall prognosis is very poor. I did encourage the , Sydnee, to consider palliative care, or hospice. The patient has now been in the hospital for 32 days. Dictation was produced using [employer] software. Please excuse any grammatical, word or spelling errors. Plan dated July 07, 2024. The patient is seen today in room 254. The patient continues on Airvo, at 40 L/min, with an FiO2 of 50%. The patient is not receiving any IV fluids. The patient is a DO NOT RESUSCITATE patient. Labs, x-rays, and medications are reviewed. The patient did have hemodialysis yesterday, with 1 L being removed. He continues on Zosyn, daptomycin, and fluconazole. We will continue to follow make recommendations along the way. The patient is a candidate for long-term acute care, if we can get down to 3 times a week hemodialysis. Currently, he is requiring hemodialysis on a daily basis. Dictation was produced using [employer] software. Please excuse any grammatical, word or spelling errors. Time with Patient: Greater than 30
[2024-07-07 12:12] LABS: Hepatitis B Surface AB- Quant 3.5 mIU/mL
[2024-07-07 12:39] LABS: Hepatitis B Surface Antigen Nonreactive (Nonreactive)
--- NOTE | 2024-07-07 13:21 | P.PN ---
Subjective Progress Note Date: 07/07/24 Pleasant 73-year-old patient follows with Dr. Dennis. Expense Analyst: Dr. Bales Chronic medical conditions include hypertension, hyperlipidemia, type 2 diabetes, mood disorder, and CAD , ostomy for 25 years, July 2023 stent to the LAD and second diagonal branch by Dr. Bales. April 26, [address] Bales: Following a non-ST relation FL: Patent stent to mid LAD. Late stent thrombosis of the second diagonal branch of the LAD. Severe disease involving the OM1 appears unchanged. Attempted balloon angioplasty performed to the second of diagonal branch with suboptimal results. Dose of Imdur was increased and Ranexa was added. Patient recently in the hospital from May 28 through May 31. Chronic headaches: MRI unremarkable. MR angio head and neck: MR angio head w ithout contrast: No evidence of aneurysm or significant stenosis. Atrophic right A1 segment. origin of the right posterior cerebral artery.MRI of the brain nonspecific. Was seen by neurology Dr. Gay. Patient to follow-up outpatient Chronic right heel wound seen by Dr. Carpenter from vascular deep debridement was carried out. No need for antibiotics. Patient to follow-up with Dr. Jernigan at the wound center. Shortness of breath: Was seen by cardiology. Not for any further intervention. Patient doing well when discharged. Patient presented increased shortness of breath when at home. His pulse ox dropped out of the 80s. Increasing shortness of breath. Decreased appetite. No fever or chills. June 10: Using his BiPAP. Patient seen this morning. Later this afternoon. Right femoral vein dialysis catheter was placed by Dr. Carpenter from vascular for dialysis. Baseline some shortness of breath. Due for first dialysis today. Patient is right heel culture grew MRSA Proteus P Corynebacterium on May 29. Patient is on IV daptomycin and IV cefepime per ID. June 11: Patient seen this afternoon. On BiPAP. Getting hemodialysis. Remains on IV daptomycin IV Zosyn. Tired. Also getting IV iron. Patient really did not eat today. Because of BiPAP. Cut back Levemir to 26 units at night. DC scheduled NovoLog for now. June 12: Overflowing the ICU. Remains on BiPAP. 04/05/%. at the bedside. Remains on IV daptomycin and IV Zosyn. For dialysis today. X-ray continues shows infiltrates. Significantly hypoxic. N.p.o. June 13: ICU. Remains on BiPAP. 12/6/90% moderate take anything by mouth. Spoke to the nurse have TPN lipids ordered. Remains on IV daptomycin IV Zosyn. Chest x-ray continues to show diffuse infiltrates. Continues to be followed by cardiology pulmonary ID nephrology. June 14: ICU. Later this afternoon patient was put on Airvo. 60/60. Has some delirium. Remains on IV daptomycin and IV Zosyn. Had 2 L ultrafiltration yesterday. Patient getting daily dialysis for now. As patient is oliguric per nephrology Lasix has been held. TPN was ordered yesterday per the nurse culture that returned to feed the patient. Will see how that goes. Dietitian on the case. June 15: ICU. Patient be getting hypotensive. Some medications held back by cardiology. Hemodialysis done today. Patient remains on Airvo though at 50/50. at the bedside. Plans this afternoon to get him up in the chair. Remains on daptomycin and IV Zosyn. IV Lasix been discontinued. Patient tolerating some liquid diet. June 16: Patient moved to the ICU. Remains on Airvo. 45/45. at the bedside. Tolerating full liquids. Spoke to the about the morphine. His headaches are chronic. Use Fioricet as needed. Remains on IV daptomycin and IV Zosyn. IV Solu-Medrol. Amlodipine dose cut back. PT OT. June 17: On 3 S., telemetry floor. Getting hemodialysis today. Remains on IV daptomycin IV Zosyn. On full liquid diet. Advance to ground diet. Minimal urine output. DC fluid restriction. Awake communicating. Accu-Cheks running high. Increase Levemir to 28 units subcu twice daily. Seen by PT OT. Maximum assist. On Airvo 40/40. Cut back Solu-Medrol to every 12. June 18: On a recliner. 7 L nasal cannula. Decreased appetite. at the bedside. Accu-Chek in 200s. IJ PermCath placement pending. Encourage oral intake. Ordered incentive spirometry June 19: Patient was on 7 L nasal cannula yesterday. Patient back on Airvo today. 40 L. Due for hemodialysis today. Had perm dialysis catheter placed right IJ by Dr. Carpenter today. Minimal intake today. Discussed with at the bedside. June 20: Recliner. High flow 15 L nasal cannula. at the bedside. Decreased oral intake.Tired. Hemodialysis today. June 21: Still decreased appetite. Remains on high flow 15 l nasal cannula. Remains on IV daptomycin IV Zosyn per ID. Being followed by multiple consu ltants spoke to the patient and . Encourage oral intake. June 22: Remains on 15 L high flow nasal cannula. at the bedside. Diet. Remains on IV daptomycin IV Zosyn. Decreased appetite. Will try ground diet. June 23: Monday to the bed. Ate a bit better according to the . Remains on 15 L nasal cannula. Oral candidiasis. Diflucan 200 mg x 1 today. Then 100 mg 3 times a week after each dialysis. Remains on daptomycin IV Zosyn per ID. Discussed with patient 06/24 I am resuming the care of the patient today He is sitting at the edge of the bed feels comfortable. Still requiring 15 units of oxygen, he states that he feels better than yesterday after he was s tarted on IV Solu-Medrol 40 mg twice daily. At home he was not on oxygen Also he is on daptomycin and Diflucan. He is also on antibiotic for his right foot ulcer with dressing in place. No pain 06/25 Patient feels the same Oxygen requirements down from 15 down to 12 L/min His labs showing more hemoconcentration with leukocytosis 23K, hemoglobin 12.2 and platelet 128 all went up little bit. Creatinine 2.5. Sodium improved 132 He remains on Zosyn daptomycin and fluconazole and IV Solu-Medrol 40 mg twice daily 06/26 Patient is breathing quietly while he is sitting in bed. He is getting 11 L via nasal cannula in the morning, however later on it looks like his oxygen supply was increased. Patient denies any other new symptoms His sodium today was 129 and potassium elevated 6.6 and creatinine 4.3. Patient getting dialysis for hyperkalemia protocol. WBC went down to 11.8. Hemoglobin stable at 10.1. Platelet count 122. Remains on triple antibiotics with Diflucan, daptomycin and Zosyn. Also is on IV Solu-Medrol 40 mg twice daily. No more panic attack. Yesterday after rounding he developed panic attacks and improved with Xanax 06/27 Patient required more oxygen starting yesterday and today his saturation well on higher dose of oxygen 40 L/min with FiO2 of 66% Chest x-ray showing cardiomegaly, pulmonary vascular congestion and pleural effusion Currently patient torsemide 40 mg daily Also is getting hemodialysis yesterday and there is another dialysis going on for tomorrow Also he remains on IV Solu-Medrol 40 mg and broad-spectrum antibiotics as above 06/28 Since yesterday patient oxygen requirement started worsening significantly he was placed on high flow nasal cannula at 40 L with FiO2 of 60 to 66%. By the evening patient required to be placed on BiPAP and he was sent to the ICU. Repeat chest x-ray showing cardiomegaly with pulmonary vascular congestion. Echocardiogram from 05/29/2024 showing ejection fraction of 55 to 60%. Patient also undergoing hemodialysis. Creatinine increased today to 4.63. Remains on torsemide, IV Solu-Medrol antibiotics with Zosyn daptomycin and fluconazole 06/29--- patient was seen and examined today. Continues to require on and off BiPAP, currently on heated high flow oxygen, undergoing hemodialysis. Remains on daptomycin and Zosyn. Pulmonary, ID, nephrology following. On Diflucan. Patient is afebrile, heart rate 78, respiratory rate 17, blood pressure 130/61,'s on 50 L heated high flow oxygen. WBC 11.1, hemoglobin 9.2, platelet 97. Sodium 129 potassium 4.0 BUN 61 creatinine 3.57. 06/30--patient was seen and examined today. Afebrile, heart rate 80, respiratory rate 19, blood pressure 121/58, saturating 94% on 50 L heated high flow. WBCs 11.0, hemoglobin 9.5, platelet 113. Sodium 128 potassium 3.8, chloride 90, CO2 26, BUN 48, creatinine 2.58. Patient reported urine output today. Infectious disease following, currently on Zosyn and daptomycin. ICU following. Nephrology following, plan for hemodialysis tomorrow, challenge ultrafiltration. Currently on torsemide. Received IV iron. 07/01--- patient was seen and examined today. Remained afebrile, heart rate 88, respiratory rate 20, blood pressure 126/61, saturating 94%, on 60 L heated high flow. WBCs 13.3, hemoglobin 9.4, platelet 131. Sodium 127 potassium 4.2 chloride 92 CO2 23 BUN 90 creatinine 4.14 patient underwent hemodialysis today, nephrology following plan for daily hemodialysis for fluid overload. ICU following. Currently on Diflucan, daptomycin and Zosyn. Infectious disease consulted and following. 07/02--patient was seen and examined today. Afebrile, heart rate 98, respiratory rate 18, blood pressure 127/53. Remains on heated high flow with 50 L. Easily desaturates. WBCs 8.4, hemoglobin 10.0, platelet 141. Sodium 131 potassium 4.9 chloride 95 CO2 25 BUN 66 creatinine 3.19. Tolerated BiPAP overnight. ICU following. Poor prognosis. 07/03--- patient was seen and examined today. Family at bedside. Currently on 40 L/min with FiO2 of 50%, underwent hemodialysis today. Afebrile, heart rate 92, respiratory rate 20, blood pressure 113/95.WBCs 9.6, hemoglobin 11.4, platelet 191. Sodium 130, potassium 5.5, chloride 94, CO2 21, BUN 105, creatinine 4.88. 07/04/patient was seen and examined today. Patient continues to require 40 L oxygen, with FiO2 50%. Patient underwent hemodialysis with 2 L fluid removal today. Discussed with nephrology, plan for daily hemodialysis until Monday. Chest x-ray showed same pulmonary venous congestion. Currently on daptomycin and Zosyn. WBCs 8.8, hemoglobin 11.7, platelet 229. Sodium 128 potassium 5.3 chloride 94 BUN 75 creatinine 3.50. 07/05patient was seen and examined today. Afebrile, heart rate 87, respirate 16, blood pressure 87/50, saturating 96%, on 40 L heated high flow at 50% FiO2. WBCs 10.0, hemoglobin 12.9, platelet 281. Sodium 132, potassium 6.0, chloride 92, CO2 18, BUN 116, creatinine 5.42. Undergoing hemodialysis today. Nephrolo gy planning for daily hemodialysis for now. Chest x-ray--same CHF. Remains on daptomycin and Zosyn per infectious disease. ICU on following. Nephrology following. 07/06. Patient seen and examined. Patient continues to be on Airvo, 40 L with an FiO2 of 50%. Patient getting daily dialysis. Blood work done today showed WBC 10, hemoglobin 12.3, platelet count 295, sodium 130, potassium 6.1, BUN 129, creatinine 5.89 patient currently undergoing dialysis. 07/07. Patient seen and examined. Blood work this morning showed sodium 132, potassium 5.7, BUN 70, creatinine 3.66. Vital signs showed Blood pressure 112/64, respiratory rate 12, currently on heated high flow with an FiO2 of 40% at 40 L rate. Very tired this morning REVIEW OF SYSTEMS: CONSTITUTIONAL: No fever, no malaise,. CARDIOVASCULAR: No chest pain, no palpitations, no syncope. PULMONARY: No shortness of breath, no cough, GASTROINTESTINAL: No diarrhea, no nausea, no vomiting, no abdominal pain. NEUROLOGICAL: No headaches, no weakness, PHYSICAL EXAMINATION: GENERAL: The patient is chronically ill looking, lethargic HEENT: Pupils are round and equally reacting to light. EOMI. No scleral icterus. No conjunctival pallor. Normocephalic, atraumatic. No pharyngeal erythema. No thyromegaly. CARDIOVASCULAR: S1 and S2 present. No murmurs, rubs, or gallops. PULMONARY: Coarse breath sounds bilaterally, no wheezing or crackles. ABDOMEN: Soft, nontender, nondistended, normoactive bowel sounds. No palpable organomegaly. Ostomy seen MUSCULOSKELETAL: No joint swelling or deformity. EXTREMITIES: No cyanosis, clubbing, or pedal edema. Right foot dressing seen NEUROLOGICAL: Gross neurological examination did not reveal any focal deficits. SKIN: No rashes. Assessment and plan Acute hypoxic respiratory failure: Bilateral pneumonia: Acute diastolic CHF: Acute COPD exacerbation: Right foot diabetic ulcer: MRSA culture positive: ROSELYN on CKD: Now requiring dialysis, right IJ permacath placed to 1025 Hyperkalemia: Resolved Oral candidiasis: Acute on chronic anemia: Anemia of chronic disease History of CAD with previous PCI Diabetes mellitus Hypertension Hyperlipidemia Chronic cephalgia Chronic ostomy History of prostate cancer status post chemo/radiation Chronic right heel wound status post debridement Obesity: Monitor vital signs Monitor CBC Monitor CMP Continue telemetry monitoring Continue oxygen supplementation Continue BiPAP as needed S/p debridement on 06/07 and 06/14 Continue daptomycin and Zosyn Continue aspirin, Plavix Lipitor Continue Norvasc Continue midodrine, dose increased to 15 milligram 3 times daily Continue dialysis per nephrology Monitor blood sugar levels, continue current insulin regimen ID following Nephrology following ICU following Labs and medication were reviewed.. Continue same treatment. Continue with symptomatic treatment. Resume home medication. Monitor labs and vitals. DVT and GI prophylaxis. Further recommendations as per clinical course of the patient Dictation was produced using [employer] dictation software. please excuse any grammatical, word or spelling errors. Objective - Vital Signs Vital signs: Vital Signs Temp 96.6 F L 07/07/24 08:00 Pulse 68 07/07/24 12:59 Resp 12 07/07/24 11:00 BP 112/64 07/07/24 11:00 Pulse Ox 99 07/07/24 12:47 FiO2 40 07/07/24 12:47 Intake & Output 07/06/24 07/07/24 07/07/24 17:59 06:59 18:59 Intake Total 200 Output Total 75 Balance 125 Weight Intake: IV DAPTOmycin 350 mg In Sodium Chloride 0.9% 50 ml @ 100 mls/hr IVPB Q48H JOSÉ Rx#:[id number] Piperacillin-Tazobactam 3 .375 gm In Sodium Chloride 0.9% 100 ml @ 25 mls/hr IVPB Q12HR JOSÉ Rx #:[id number] Intake, IV Titration Amount Norepinephrine 4 mg In Sodium Chloride 0.9% 250 ml @ 0.03 MCG/KG/MIN 10. 217 mls/hr IV .Q24H JOSÉ Rx#:[id number] Oral 200 Hemodialysis Output: Urine 0 Stool 75 Hemodialysis Hemodialysis Net Amount - Labs CBC & Chem 7: 07/06/24 06:37 07/07/24 05:44 Labs: Abnormal Lab Results - Last 24 Hours (Table) 07/06/24 07/07/24 Range/Units 16:11 05:44 Sodium 132 L (137-145) mmol/L Potassium 5.7 H (3.5-5.1) mmol/L Chloride 97 L (98-107) mmol/L Carbon Dioxide 21 L (22-30) mmol/L BUN 70 H (9-20) mg/dL Creatinine 3.66 H (0.66-1.25) mg/dL POC Glucose (mg/dL) 121 H (70-110) mg/dL
[2024-07-07 14:49] LABS: Anisocytosis Slight; Basophils % (A) 0 %; Eosinophils % (A) 0 %; HCT 39.7 % (39.0-53.0); HGB 12.3 gm/dL (13.0-17.5); Hypochromasia Slight; Lymphocytes # (A) 0.3 k/uL (1.0-4.8); Lymphocytes % (A) 3 %; MCH 31.2 pg (25.0-35.0); MCV 100.8 fL (80.0-100.0); Macrocytosis Slight; Monocytes # (A) 0.5 k/uL (0-1.0); Monocytes % (A) 6 %; Neutrophils # (A) 7.9 k/uL (1.3-7.7); Neutrophils % (A) 90 %; Platelet Count 209 k/uL (150-450); RBC 3.94 m/uL (4.30-5.90); RDW 17.3 % (11.5-15.5); WBC 8.8 k/uL (3.8-10.6)
--- NOTE | 2024-07-07 15:53 | P.PN ---
Subjective Progress Note Date: 07/07/24 Principal diagnosis: Reason for follow-up is right heel diabetic foot ulcer with MRSA infection Patient is a 73-year-old male with a past medical history significant for diabetes mellitus hypertension hyperlipidemia osteomyelitis patient has been dealing with a chronic nonhealing wound to the right heel area for months now and is being treated in outpatient setting by Dr. Jernigan his seating and mobility technologist with recent outpatient culture positive for MRSA and is Proteus. On today's evaluation that is 07/07/2024, Patient is afebrile patient is currently on high flow nasal cannula oxygen 45% FiO2 patient is hemodynamic stable not requiring pressor support complaining of feeling weak no chest pain or cough no abdominal pain to the right heel area. Patient white count normal 8.8, creatinine 3.66 blood culture has been negative chest x-ray with worsening pulmonary edema Objective - Vital Signs Vital signs: Vital Signs Temp 96.4 F L 07/07/24 12:00 Pulse 80 07/07/24 15:00 Resp 14 07/07/24 15:00 BP 124/89 07/07/24 15:00 Pulse Ox 90 L 07/07/24 15:00 FiO2 45 07/07/24 15:13 Intake & Output 07/06/24 07/07/24 07/07/24 17:59 06:59 18:59 Intake Total 350 Output Total 75 Balance 275 Weight Intake: IV DAPTOmycin 350 mg In Sodium Chloride 0.9% 50 ml @ 100 mls/hr IVPB Q48H JOSÉ Rx#:[id number] Piperacillin-Tazobactam 3 .375 gm In Sodium Chloride 0.9% 100 ml @ 25 mls/hr IVPB Q12HR JOSÉ Rx #:[id number] Intake, IV Titration Amount Norepinephrine 4 mg In Sodium Chloride 0.9% 250 ml @ 0.03 MCG/KG/MIN 10. 217 mls/hr IV .Q24H JOSÉ Rx#:[id number] Oral 350 Hemodialysis Output: Urine 0 Stool 75 Hemodialysis Hemodialysis Net Amount - Exam GENERAL DESCRIPTION: An elderly male lying in bed in no distress RESPIRATORY SYSTEM: Unlabored breathing , decreased breath sounds at bases HEART: S1 S2 regular rate and rhythm , ABDOMEN: Soft , no tenderness EXTREMITIES: Right hand wound is currently dressed - Labs CBC & Chem 7: 07/07/24 14:14 07/07/24 05:44 Labs: Abnormal Lab Results - Last 24 Hours (Table) 07/06/24 07/07/24 07/07/24 Range/Units 16:11 05:44 14:14 RBC 3.94 L (4.30-5.90) m/uL Hgb 12.3 L (13.0-17.5) gm/dL MCV 100.8 H (80.0-100.0) fL RDW 17.3 H (11.5-15.5) % Neutrophils # 7.9 H (1.3-7.7) k/uL Lymphocytes # 0.3 L (1.0-4.8) k/uL Sodium 132 L (137-145) mmol/L Potassium 5.7 H (3.5-5.1) mmol/L Chloride 97 L (98-107) mmol/L Carbon Dioxide 21 L (22-30) mmol/L BUN 70 H (9-20) mg/dL Creatinine 3.66 H (0.66-1.25) mg/dL POC Glucose (mg/dL) 121 H (70-110) mg/dL Assessment and Plan (1) Diabetic infection of right foot Current Visit: Yes Status: Acute Code(s): E11.628 - TYPE 2 DIABETES MELLITUS WITH OTHER SKIN COMPLICATIONS; L08.9 - LOCAL INFECTION OF THE SKIN AND GORD[place]O BCUTANEOUS TISSUE, UNSP SNOMED Code(s): 917942990 (2) MRSA (methicillin resistant staph aureus) culture positive Current Visit: Yes Status: Acute Code(s): Z22.322 - CARRIER OR SUSPECTED CARRIER OF METHICILLIN RESIS STAPH SNOMED Code(s): 782706019 (3) Diabetic ulcer of right foot Current Visit: No Status: Acute Code(s): E11.621 - TYPE 2 DIABETES MELLITUS WITH FOOT ULCER; L97.519 - NON-PRS CHRONIC ULCER OTH PRT RIGHT FOOT W UNSP SEVERITY SNOMED Code(s): 358714315 (4) Stage III pressure ulcer of right heel Current Visit: No Status: Acute Code(s): L89.613 - PRESSURE ULCER OF RIGHT HEEL, STAGE 3 SNOMED Code(s): 04575333415336 Plan: 1patient with a chronic nonhealing wound to the right heel which he has for couple of months the wound looks deep with a recent culture positive for Proteus and MRSA concerning for wound infection and question for possible deeper infe ction such as osteomyelitis as wound has been there for couple of months now 2- -patient has been evaluated by Dr. Carpenter and did have surgical debridement completed on 06/07/2024 and did have a further debridement at the bedside by his seating and mobility technologist on 06/14/2024 and has been repeat debridement done on 07/02/2024 4-patient has been afebrile and white count has normalized, patient has received adequate Zosyn vancomycin for his diabetic foot infection, we will go ahead discontinue antibiotic and monitor the patient closely off antibiotic Dictation was produced using [employer] dictation software. please excuse any grammatical, word or spelling errors. Time with Patient: Less than 30
[2024-07-07 16:29] LABS: Glucose,Whole Blood 122 mg/dL (70-110)
[2024-07-07 20:06] LABS: Glucose,Whole Blood 108 mg/dL (70-110)
[2024-07-07 20:41] LABS: Glucose,Whole Blood 108 mg/dL (70-110)
[2024-07-08 06:18] LABS: Glucose,Whole Blood 104 mg/dL (70-110)
--- NOTE | 2024-07-08 07:43 | XR ---
EXAMINATION TYPE: XR chest 1V portable DATE OF EXAM: 07/08/2024 4:54 AM COMPARISON: Chest radiograph from one day prior. CLINICAL INDICATION: Male, 73 years old with history of AIRVO dependent; HF; PH[facility] TECHNIQUE: XR chest 1V portable Frontal view of the chest. FINDINGS: : Lungs/Pleura: Multifocal airspace opacities. No evidence of pneumothorax or pleural effusion. Pulmonary vascularity: Pulmonary vascular congestion. Heart/mediastinum: Cardiomediastinal silhouette is unremarkable. Musculoskeletal: No acute osseous pathology. Other findings: None Lines/Tubes: Right internal jugular central venous catheter with distal tip at the cavoatrial junction. IMPRESSION: 1. Similar pulmonary edema. 2. Stable support line [facility], , 07/08/2024 7:41 AM
[2024-07-08 08:09] LABS: Anisocytosis Slight; Basophils % (A) 0 %; Eosinophils % (A) 0 %; HCT 38.9 % (39.0-53.0); HGB 11.7 gm/dL (13.0-17.5); Lymphocytes # (A) 0.2 k/uL (1.0-4.8); Lymphocytes % (A) 2 %; MCH 30.5 pg (25.0-35.0); MCHC 30.2 g/dL (31.0-37.0); Macrocytosis Slight; Mean Platelet Volume 9.8; Monocytes # (A) 0.5 k/uL (0-1.0); Monocytes % (A) 5 %; Neutrophils # (A) 9.1 k/uL (1.3-7.7); Neutrophils % (A) 92 %; Platelet Count 227 k/uL (150-450); RBC 3.85 m/uL (4.30-5.90); RDW 17.5 % (11.5-15.5); WBC 9.9 k/uL (3.8-10.6)
[2024-07-08 08:25] LABS: Anion Gap 14 mmol/L; Blood Urea Nitrogen 99 mg/dL (9-20); Calcium 8.2 mg/dL (8.4-10.2); Carbon Dioxide 22 mmol/L (22-30); Chloride 94 mmol/L (98-107); Glucose 96 mg/dL (74-99); Magnesium 2.2 mg/dL (1.6-2.3); Potassium 5.8 mmol/L (3.5-5.1); Sodium 130 mmol/L (137-145)
[2024-07-08 08:31] LABS: African American GFR (CKD) 11 (>60 ml/min/1.73 sqM); Non-African American GFR(CKD) 10 (>60 ml/min/1.73 sqM)
[2024-07-08 09:39] VITALS: BMI 32.7
--- NOTE | 2024-07-08 10:05 | P.PN ---
Subjective Progress Note Date: 07/08/24 Patient is a 73-year-old male with past medical history significant for hypertension, hyperlipidemia, coronary artery disease with previous PCI/stenting, heart failure, chronic kidney disease, diabetes mellitus, chronic right heel wound, ulcerative colitis with previous colectomy and ileostomy. Of note, patient had a recent hospitalization late May and was just discharged 05/31/2024 for CHF exacerbation. Echocardiogram done during this hospitalization estimating a preserved left ventricular ejection fraction of 55 to 60%. Limited study, but no acute valvular abnormalities reported. Presented the emergency department on 06/04/2024 with a chief complaint of shortness of breath, mostly on exertion. Chest x-ray showing cardiomegaly, mild pulmonary vascular congestion, and a small pleural effusion on the left. NT proBNP elevated 2550. On 07/08/2024, the patient is lethargic. Resting comfortably in bed and the patient is undergoing hemodialysis with a goal of 1.9 L of ultrafiltration. Last hemodialysis was done on 07/06/2024 and a total of 1 L of fluid was removed. In terms of his respiratory status, the patient remains in acute hypoxic respiratory failure. The patient remains on Airvo at 4 L with an FiO2 of 40%. A repeat chest x-ray was done this morning and it showed similar multifocal airspace disease, no evidence of any pneumothorax. No other acute abnormalities noted. The patient remains on DuoNeb nebulized treatments [id number]. The patient remains on IV Solu-Medrol 40 mg every 12 hours. In terms of antibiotic coverage, all of the antibiotics have been discontinued and infectious disease of on the case. He remains on Lantus insulin 10 units daily. He is on sliding scale insulin coverage. Remains on Lipitor 40 mg p.o. daily, Norvasc 5 mg p.o. daily and Imdur 60 mg p.o. daily. His oral intake is quite diminished. Appetite is poor. Prolonged hospitalization with ongoing debility secondary above-mentioned comorbidities. Objective - Vital Signs Vital signs: Vital Signs Temp 97.6 F 07/08/24 04:00 Pulse 85 07/08/24 07:58 Resp 16 07/08/24 07:00 BP 139/58 07/08/24 07:00 Pulse Ox 93 L 07/08/24 07:00 FiO2 40 07/08/24 07:44 Intake & Output 07/07/24 07/08/24 07/08/24 18:59 06:59 18:59 Intake Total 450 120 10 Output Total 75 0 0 Balance 375 120 10 Weight 92 kg Intake: IV 100 120 10 Sodium Chloride 0.9% 1000 100 120 10 mL @ 10 mLs/hr Oral 350 Output: Urine 0 0 0 Stool 75 - Exam GENERAL EXAM: Awake, alert 73-year-old obese male, the patient is on Airvo 40 L with FiO2 of 40%. Lethargic. Weak. Getting progressively more debilitated. HEAD: Normocephalic and atraumatic EYES: Normal reaction of pupils, equal size. NOSE: Clear with pink turbinates. THROAT: No erythema or exudates. NECK: No masses, no JVD. CHEST: No chest wall deformity. LUNGS: Equal air entry with diminished lung sounds throughout. Crackles in the bilateral bases. CVS: S1 and S2 normal with no audible murmur, regular rhythm. No extra heart sounds ABDOMEN: No hepatosplenomegaly, active bowel sounds, no guarding or rigidity. Functional ileostomy SPINE: No scoliosis or deformity SKIN: Generalized erythemic plaques involving upper extremities, chest, back CENTRAL NERVOUS SYSTEM: No focal deficits, tone is normal in all 4 extremities. EXTREMITIES: Right foot is wrapped with a bandage. There is 1-2+ peripheral edema. Peripheral pulses are intact. - Labs CBC & Chem 7: 07/08/24 07:47 07/08/24 07:47 Labs: Abnormal Lab Results - Last 24 Hours (Table) 07/07/24 07/07/24 07/08/24 Range/Units 14:14 16:28 07:47 RBC 3.94 L 3.85 L (4.30-5.90) m/uL Hgb 12.3 L 11.7 L (13.0-17.5) gm/dL Hct 38.9 L (39.0-53.0) % MCV 100.8 H 101.0 H (80.0-100.0) fL MCHC 30.2 L (31.0-37.0) g/dL RDW 17.3 H 17.5 H (11.5-15.5) % Neutrophils # 7.9 H 9.1 H (1.3-7.7) k/uL Lymphocytes # 0.3 L 0.2 L (1.0-4.8) k/uL POC Glucose (mg/dL) 122 H (70-110) mg/dL Assessment and Plan Plan: Acute hypoxic respiratory failure. The patient developed hypoxemia with progressive worsening oxygenation during this current hospital stay. Patient is currently on Airvo 40 L with an FiO2 of 40%. Chest x-ray continues to show diff use bilateral pulmonary infiltrates. Initially, there was consideration of a diastolic heart failure with secondary pulmonary edema. Nevertheless, the patient continued to have diffuse airspace disease bilaterally and did not respond to dialysis and ultrafiltration. He was given broad-spectrum an tibiotics. He was also given steroids. Consider acute lung injury. Infectious causes of respiratory failure and bilateral pulmonary infiltrates are felt to be less likely still. Acute on chronic kidney disease now requiring renal replacement therapy that started June 10, 2024, underwent dialysis via permacath in the right IJ. The patient continues to undergo periodic hemodialysis. Dialysis is being performed on 07/08/2024 with a goal of 1 L of ultrafiltration. Hyperkalemia, improved Acute on chronic anemia secondary to above History of CAD with previous PCI Diabetes mellitus type II Hypertension Hyperlipidemia Chronic cephalgia History of UC with previous colectomy and ileostomy History of prostate cancer status post chemoradiation Chronic right heel wound, status post debridement on 05/28/2024 again today June 14, 2024, antibiotics evidence discontinued and the patient is currently receiving local wound care. Obesity, with a BMI of 38.8 kg/m Never tobacco smoker Plan: Titrate FiO2 to maintain saturation above 90% Continue Airvo at the same settings Hemodialysis to be continued by nephrology. The patient has a permacath in the right IJ. Hemodialysis was performed on 07/06/2024 another session is being performed this morning Continue bronchodilators Antibiotics have been discontinued Chest x-ray was reviewed Continue IV Solu-Medrol 40 mg every 12 hours Heparin for DVT prophylaxis Protonix for GI prophylaxis We will continue to follow Critical care evaluation, 31 minutes Time with Patient: Greater than 30
[2024-07-08] MEDS: NOREPINEPHRINE 4 MG in SODIUM CHLORIDE 0.9% 250 ML IV SCH (10:14)
--- NOTE | 2024-07-08 10:19 | P.PN ---
Subjective Patient seen for follow-up for chronic kidney disease with acute kidney injury. Initiated hemodialysis 06/10/2024. Currently on Airvo. Awake and alert. Off vasopressors. Tolerating dialysis well. Vital signs are stable. General: Resting in bed. No acute distress. HEENT: On Airvo. LUNGS: Scattered rhonchi. HEART: Rate and Rhythm are regular. ABDOMEN: Obese, nontender. EXTREMITITES: Trace edema. Objective - Vital Signs Vital signs: Vital Signs Temp 98.3 F 07/08/24 08:00 Pulse 93 07/08/24 09:20 Resp 15 07/08/24 09:20 BP 95/66 07/08/24 09:20 Pulse Ox 93 L 07/08/24 09:20 FiO2 40 07/08/24 08:00 Intake & Output 07/07/24 07/08/24 07/08/24 18:59 06:59 18:59 Intake Total 450 120 30 Output Total 75 0 0 Balance 375 120 30 Weight 92 kg 92 kg Intake: IV 100 120 30 Sodium Chloride 0.9% 1000 100 120 30 mL @ 10 mLs/hr Oral 350 Output: Urine 0 0 0 Stool 75 - Labs CBC & Chem 7: 07/08/24 07:47 07/08/24 07:47 Labs: Abnormal Lab Results - Last 24 Hours (Table) 07/07/24 07/07/24 07/08/24 Range/Units 14:14 16:28 07:47 RBC 3.94 L 3.85 L (4.30-5.90) m/uL Hgb 12.3 L 11.7 L (13.0-17.5) gm/dL Hct 38.9 L (39.0-53.0) % MCV 100.8 H 101.0 H (80.0-100.0) fL MCHC 30.2 L (31.0-37.0) g/dL RDW 17.3 H 17.5 H (11.5-15.5) % Neutrophils # 7.9 H 9.1 H (1.3-7.7) k/uL Lymphocytes # 0.3 L 0.2 L (1.0-4.8) k/uL Sodium (137-145) mmol/L Potassium (3.5-5.1) mmol/L Chloride (98-107) mmol/L BUN (9-20) mg/dL Creatinine (0.66-1.25) mg/dL POC Glucose (mg/dL) 122 H (70-110) mg/dL Calcium (8.4-10.2) mg/dL 07/08/24 Range/Units 07:47 RBC (4.30-5.90) m/uL Hgb (13.0-17.5) gm/dL Hct (39.0-53.0) % MCV (80.0-100.0) fL MCHC (31.0-37.0) g/dL RDW (11.5-15.5) % Neutrophils # (1.3-7.7) k/uL Lymphocytes # (1.0-4.8) k/uL Sodium 130 L (137-145) mmol/L Potassium 5.8 H (3.5-5.1) mmol/L Chloride 94 L (98-107) mmol/L BUN 99 H (9-20) mg/dL Creatinine 5.39 H (0.66-1.25) mg/dL POC Glucose (mg/dL) (70-110) mg/dL Calcium 8.2 L (8.4-10.2) mg/dL Assessment and Plan Assessment: # Acute kidney injury secondary to ATN secondary to cardiorenal syndrome. Start hemodialysis 06/10/2024. Has permacath. #Acute on chronic diastolic CHF #Volume overload. #Hypertension with CKD stage IV. Controlled. #Acute hypoxic respiratory failure secondary to CHF. On Airvo. #CAD s/p stent placement #Metabolic acidosis secondary to CKD, improved with dialysis #Right heel wound s/p debridement #Hyperkalemia secondary to acute kidney injury. # Hypervolemic hyponatremia. # Anemia of chronic kidney disease. Status post IV iron. On Aranesp. Plan: -Currently seen while undergoing hemodialysis. Continue to assess on daily basis. Challenge ultrafiltration. -Maintain midodrine as needed during dialysis for systolic blood pressure less than 100. -Hold amlodipine for systolic blood pressure less than 120. -Renal diet. -Avoid nephrotoxic agents -Wean FiO2 -Hemodialysis set up as outpatient for M/W/F once discharged -Prognosis guarded.
[2024-07-08 11:26] LABS: Glucose,Whole Blood 97 mg/dL (70-110)
--- NOTE | 2024-07-08 13:20 | P.PN ---
Subjective Progress Note Date: 07/08/24 Principal diagnosis: Reason for follow-up is right heel diabetic foot ulcer with MRSA infection Patient is a 73-year-old male with a past medical history significant for diabetes mellitus hypertension hyperlipidemia osteomyelitis patient has been dealing with a chronic nonhealing wound to the right heel area for months now and is being treated in outpatient setting by Dr. Jernigan his farm management adviser with recent outpatient culture positive for MRSA and is Proteus. On today's evaluation that is 07/08/2024, patient has been afebrile, patient is breathing slightly comfortably however still requiring hyponasal cannula oxygen denies any chest pain no cough no abdominal pain diarrhea or pain to the right kidney. Patient white count is 9.8, creatinine is 5.39 blood culture has been negative Objective - Vital Signs Vital signs: Vital Signs Temp 98 F 07/08/24 12:15 Pulse 101 H 07/08/24 12:40 Resp 13 07/08/24 12:40 BP 113/66 07/08/24 12:40 Pulse Ox 93 L 07/08/24 12:40 FiO2 40 07/08/24 12:00 Intake & Output 07/07/24 07/08/24 07/08/24 18:59 06:59 18:59 Intake Total 450 120 877.692 Output Total 75 0 4000 Balance 375 120 -3122.308 Weight 92 kg 92 kg Intake: IV 100 120 50 Sodium Chloride 0.9% 1000 100 120 50 mL @ 10 mLs/hr Intake, IV Titration 27.692 Amount Norepinephrine 4 mg In 27.692 Sodium Chloride 0.9% 250 ml @ 0.03 MCG/KG/MIN 10. 516 mls/hr IV .Q24H [facility] Rx#:[id number] Oral 350 Hemodialysis 800 Output: Urine 0 0 0 Stool 75 Hemodialysis 2400 Hemodialysis Net Amount 1600 - Exam GENERAL DESCRIPTION: An elderly male lying in bed in no distress RESPIRATORY SYSTEM: Unlabored breathing , decreased breath sounds at bases HEART: S1 S2 regular rate and rhythm , ABDOMEN: Soft , no tenderness EXTREMITIES: Right hand wound is currently dressed - Labs CBC & Chem 7: 07/08/24 07:47 07/08/24 07:47 Labs: Abnormal Lab Results - Last 24 Hours (Table) 07/07/24 07/07/24 07/08/24 Range/Units 14:14 16:28 07:47 RBC 3.94 L 3.85 L (4.30-5.90) m/uL Hgb 12.3 L 11.7 L (13.0-17.5) gm/dL Hct 38.9 L (39.0-53.0) % MCV 100.8 H 101.0 H (80.0-100.0) fL MCHC 30.2 L (31.0-37.0) g/dL RDW 17.3 H 17.5 H (11.5-15.5) % Neutrophils # 7.9 H 9.1 H (1.3-7.7) k/uL Lymphocytes # 0.3 L 0.2 L (1.0-4.8) k/uL Sodium (137-145) mmol/L Potassium (3.5-5.1) mmol/L Chloride (98-107) mmol/L BUN (9-20) mg/dL Creatinine (0.66-1.25) mg/dL POC Glucose (mg/dL) 122 H (70-110) mg/dL Calcium (8.4-10.2) mg/dL 07/08/24 Range/Units 07:47 RBC (4.30-5.90) m/uL Hgb (13.0-17.5) gm/dL Hct (39.0-53.0) % MCV (80.0-100.0) fL MCHC (31.0-37.0) g/dL RDW (11.5-15.5) % Neutrophils # (1.3-7.7) k/uL Lymphocytes # (1.0-4.8) k/uL Sodium 130 L (137-145) mmol/L Potassium 5.8 H (3.5-5.1) mmol/L Chloride 94 L (98-107) mmol/L BUN 99 H (9-20) mg/dL Creatinine 5.39 H (0.66-1.25) mg/dL POC Glucose (mg/dL) (70-110) mg/dL Calcium 8.2 L (8.4-10.2) mg/dL Assessment and Plan (1) Diabetic infection of right foot Current Visit: Yes Status: Acute Code(s): E11.628 - TYPE 2 DIABETES MELLITUS WITH OTHER SKIN COMPLICATIONS; L08.9 - LOCAL INFECTION OF THE SKIN AND SUBCUTANEOUS TISSUE, UNSP SNOMED Code(s): 422598380 (2) MRSA (methicillin resistant staph aureus) culture positive Current Visit: Yes Status: Acute Code(s): Z22.322 - CARRIER OR SUSPECTED CARRIER OF METHICILLIN RESIS STAPH SNOMED Code(s): 572987089 (3) Diabetic ulcer of right foot Current Visit: No Status: Acute Code(s): E11.621 - TYPE 2 DIABETES MELLITUS WITH FOOT ULCER; L97.519 - NON-PRS CHRONIC ULCER OTH PRT RIGHT FOOT W UNSP SEVERITY SNOMED Code(s): 350224191 (4) Stage III pressure ulcer of right heel Current Visit: No Status: Acute Code(s): L89.613 - PRESSURE ULCER OF RIGHT HEEL, STAGE 3 SNOMED Code(s): 95594024562298 Plan: 1patient with a chronic nonhealing wound to the right heel which he has for couple of months the wound looks deep with a recent culture positive for Proteus and MRSA concerning for wound infection and question for possible deeper infection such as osteomyelitis as wound has been there for couple of months now 2- -patient has been evaluated by Dr. Carpenter and did have surgical debridement completed on 06/07/2024 and did have a further debridement at the bedside by his farm management adviser on 06/14/2024 and has been repeat debridement done on 07/02/2024 4-patient has been afebrile and white count has normalized, patient has received adequate Zosyn vancomycin for his diabetic foot infection, and is currently being monitored closely off antibiotic therapy Dictation was produced using LS9 dictation software. please excuse any grammatical, word or spelling errors. Time with Patient: Less than 30
[2024-07-08 16:30] LABS: Glucose,Whole Blood 118 mg/dL (70-110)
--- NOTE | 2024-07-08 19:21 | P.PN ---
Progress Note - Text Progress Note Date: 07/08/24 Chief Complaint: Short of breath Pleasant 73-year-old patient follows with Dr. Dennis. Flag Decorator: Dr. Bales Chronic medical conditions include hypertension, hyperlipidemia, type 2 diabetes, mood disorder, and CAD , ostomy for 25 years, July 2023 stent to the LAD and second diagonal branch by Dr. Bales. April 26, [address] Bales: Following a non-ST relation NM: Patent stent to mid LAD. Late stent thrombosis of the second diagonal branch of the LAD. Severe disease involving the OM1 appears unchanged. Attempted balloon angioplasty performed to the second of diagonal branch with suboptimal results. Dose of Imdur was increased and Ranexa was added. Patient recently in the hospital from May 28 through May 31. Chronic headaches: MRI unremarkable. MR angio head and neck: MR angio head without contrast: No evidence of aneurysm or significant stenosis. Atrophic right A1 segment. origin of the right posterior cerebral artery.MRI of the brain nonspecific. Was seen by neurology Dr. Gay. Patient to follow-up outpatient Chronic right heel wound seen by Dr. Carpenter from vascular deep debridement was carried out. No need for antibiotics. Patient to follow-up with Dr. Jernigan at the wound center. Shortness of breath: Was seen by cardiology. Not for any further intervention. Patient doing well when discharged. Patient presented increased shortness of breath when at home. His pulse ox dropped out of the 80s. Increasing shortness of breath. Decreased appetite. No fever or chills. June 10: Using his BiPAP. Patient seen this morning. Later this afternoon. Right femoral vein dialysis catheter was placed by Dr. Carpenter from vascular for dialysis. Baseline some shortness of breath. Due for first dialysis today. Patient is right heel culture grew MRSA Proteus P Corynebacterium on May 29. Patient is on IV daptomycin and IV cefepime per ID. June 11: Patient seen this afternoon. On BiPAP. Getting hemodialysis. Remains on IV daptomycin IV Zosyn. Tired. Also getting IV iron. Patient really did not eat today. Because of BiPAP. Cut back Levemir to 26 units at night. DC scheduled NovoLog for now. June 12: Overflowing the ICU. Remains on BiPAP. 04/05/90%. at the bedside. Remains on IV daptomycin and IV Zosyn. For dialysis today. X-ray continues shows infiltrates. Significantly hypoxic. N.p.o. June 13: ICU. Remains on BiPAP. 12/6/90% moderate take anything by mouth. Spoke to the nurse have TPN lipids ordered. Remains on IV daptomycin IV Zosyn. Chest x-ray continues to show diffuse infiltrates. Continues to be followed by cardiology pulmonary ID nephrology. June 14: ICU. Later this afternoon patient was put on Airvo. 60/60. Has some delirium. Remains on IV daptomycin and IV Zosyn. Had 2 L ultrafiltration yesterday. Patient getting daily dialysis for now. As patient is oliguric per nephrology Lasix has been held. TPN was ordered yesterday per the nurse culture that returned to feed the patient. Will see how that goes. Dietitian on the case. June 15: ICU. Patient be getting hypotensive. Some medications held back by cardiology. Hemodialysis done today. Patient remains on Airvo though at 50/50. at the bedside. Plans this afternoon to get him up in the chair. Remains on daptomycin and IV Zosyn. IV Lasix been discontinued. Patient tolerating some liquid diet. June 16: Patient moved to the ICU. Remains on Airvo. 45/45. at the bedside. Tolerating full liquids. Spoke to the about the morphine. His headaches are chronic. Use Fioricet as needed. Remains on IV daptomycin and IV Zosyn. IV Solu-Medrol. Amlodipine dose cut back. PT OT. June 17: On 3 S., telemetry floor. Getting hemodialysis today. Remains on IV daptomycin IV Zosyn. On full liquid diet. Advance to ground diet. Minimal urine output. DC fluid restriction. Awake communicating. Accu-Cheks running high. Increase Levemir to 28 units subcu twice daily. Seen by PT OT. Maximum assist. On Airvo 40/40. Cut back Solu-Medrol to every 12. June 18: On a recliner. 7 L nasal cannula. Decreased appetite. at the bedside. Accu-Chek in 200s. IJ PermCath placement pending. Encourage oral intake. Ordered incentive spirometry June 19: Patient was on 7 L nasal cannula yesterday. Patient back on Airvo today. 40 L. Due for hemodialysis today. Had perm dialysis catheter placed right IJ by Dr. Carpenter today. Minimal intake today. Discussed with at the bedside. June 20: Recliner. High flow 15 L nasal cannula. at the bedside. Decreased oral intake.Tired. Hemodialysis today. June 21: Still decreased appetite. Remains on high flow 15 l nasal cannula. Remains on IV daptomycin IV Zosyn per ID. Being followed by multiple con sultants spoke to the patient and . Encourage oral intake. June 22: Remains on 15 L high flow nasal cannula. at the bedside. Diet. Remains on IV daptomycin IV Zosyn. Decreased appetite. Will try ground diet. June 23: Monday to the bed. Ate a bit better according to the . Remains on 15 L nasal cannula. Oral candidiasis. Diflucan 200 mg x 1 today. Then 100 mg 3 times a week after each dialysis. Remains on daptomycin IV Zosyn per ID. Discussed with patient 06/24 I am resuming the care of the patient today He is sitting at the edge of the bed feels comfortable. Still requiring 15 units of oxygen, he states that he feels better than yesterday after he was started on IV Solu-Medrol 40 mg twice daily. At home he was not on oxygen Also he is on daptomycin and Diflucan. He is also on antibiotic for his right foot ulcer with dressing in place. No pain 06/25 Patient feels the same Oxygen requirements down from 15 down to 12 L/min His labs showing more hemoconcentration with leukocytosis 23K, hemoglobin 12.2 and platelet 128 all went up little bit. Creatinine 2.5. Sodium improved 132 He remains on Zosyn daptomycin and fluconazole and IV Solu-Medrol 40 mg twice daily 06/26 Patient is breathing quietly while he is sitting in bed. He is getting 11 L via nasal cannula in the morning, however later on it looks like his oxygen supply w as increased. Patient denies any other new symptoms His sodium today was 129 and potassium elevated 6.6 and creatinine 4.3. Patient getting dialysis for hyperkalemia protocol. WBC went down to 11.8. Hemoglobin stable at 10.1. Platelet count 122. Remains on triple antibiotics with Diflucan, daptomycin and Zosyn. Also is on IV Solu-Medrol 40 mg twice daily. No more panic attack. Yesterday after rounding he developed panic attacks and improved with Xanax 06/27 Patient required more oxygen starting yesterday and today his saturation well on higher dose of oxygen 40 L/min with FiO2 of 66% Chest x-ray showing cardiomegaly, pulmonary vascular congestion and pleural effusion Currently patient torsemide 40 mg daily Also is getting hemodialysis yesterday and there is another dialysis going on f or tomorrow Also he remains on IV Solu-Medrol 40 mg and broad-spectrum antibiotics as above 06/28 Since yesterday patient oxygen requirement started worsening significantly he was placed on high flow nasal cannula at 40 L with FiO2 of 60 to 66%. By the evening patient required to be placed on BiPAP and he was sent to the ICU. Repeat chest x-ray showing cardiomegaly with pulmonary vascular congestion. Echocardiogram from 05/29/2024 showing ejection fraction of 55 to 60%. Patient also undergoing hemodialysis. Creatinine increased today to 4.63. Remains on torsemide, IV Solu-Medrol antibiotics with Zosyn daptomycin and fluconazole 06/29--- patient was seen and examined today. Continues to require on and off BiPAP, currently on heated high flow oxygen, undergoing hemodialysis. Remains on daptomycin and Zosyn. Pulmonary, ID, nephrology following. On Diflucan. Patient is afebrile, heart rate 78, respiratory rate 17, blood pressure 130/61,'s on 50 L heated high flow oxygen. WBC 11.1, hemoglobin 9.2, platelet 97. Sodium 129 potassium 4.0 BUN 61 creatinine 3.57. 06/30--patient was seen and examined today. Afebrile, heart rate 80, respiratory rate 19, blood pressure 121/58, saturating 94% on 50 L heated high flow. WBCs 11.0, hemoglobin 9.5, platelet 113. Sodium 128 potassium 3.8, chloride 90, CO2 26, BUN 48, creatinine 2.58. Patient reported urine output today. Infectious disease following, currently on Zosyn and daptomycin. ICU following. Nephrology following, plan for hemodialysis tomorrow, challenge ultrafiltration. Currently on torsemide. Received IV iron. 07/01--- patient was seen and examined today. Remained afebrile, heart rate 88, respiratory rate 20, blood pressure 126/61, saturating 94%, on 60 L heated high flow. WBCs 13.3, hemoglobin 9.4, platelet 131. Sodium 127 potassium 4.2 chloride 92 CO2 23 BUN 90 creatinine 4.14 patient underwent hemodialysis today, nephrology following plan for daily hemodialysis for fluid overload. ICU following. Currently on Diflucan, daptomycin and Zosyn. Infectious disease consulted and following. 07/02--patient was seen and examined today. Afebrile, heart rate 98, respiratory rate 18, blood pressure 127/53. Remains on heated high flow with 50 L. Easily desaturates. WBCs 8.4, hemoglobin 10.0, platelet 141. Sodium 131 potassium 4.9 chloride 95 CO2 25 BUN 66 creatinine 3.19. Tolerated BiPAP overnight. ICU following. Poor prognosis. 07/03--- patient was seen and examined today. Family at bedside. Currently on 40 L/min with FiO2 of 50%, underwent hemodialysis today. Afebrile, heart rate 92, respiratory rate 20, blood pressure 113/95.WBCs 9.6, hemoglobin 11.4, platelet 191. Sodium 130, potassium 5.5, chloride 94, CO2 21, BUN 105, creatinine 4.88. 07/04/patient was seen and examined today. Patient continues to require 40 L oxygen, with FiO2 50%. Patient underwent hemodialysis with 2 L fluid removal today. Discussed with nephrology, plan for daily hemodialysis until Monday. Chest x-ray showed same pulmonary venous congestion. Currently on daptomycin and Zosyn. WBCs 8.8, hemoglobin 11.7, platelet 229. Sodium 128 potassium 5.3 chloride 94 BUN 75 creatinine 3.50. 07/05patient was seen and examined today. Afebrile, heart rate 87, respirate 16, blood pressure 87/50, saturating 96%, on 40 L heated high flow at 50% FiO2. WBCs 10.0, hemoglobin 12.9, platelet 281. Sodium 132, potassium 6.0, chloride 92, CO2 18, BUN 116, creatinine 5.42. Undergoing hemodialysis today. Nephrology planning for daily hemodialysis for now. Chest x-ray--same CHF. Remains on daptomycin and Zosyn per infectious disease. ICU on following. Nephrology following. 07/06. Patient seen and examined. Patient continues to be on Airvo, 40 L with an FiO2 of 50%. Patient getting daily dialysis. Blood work done today showed WBC 10, hemoglobin 12.3, platelet count 295, sodium 130, potassium 6.1, BUN 129, creatinine 5.89 patient currently undergoing dialysis. 07/07. Patient seen and examined. Blood work this morning showed sodium 132, potassium 5.7, BUN 70, creatinine 3.66. Vital signs showed Blood pressure 112/64, respiratory rate 12, currently on heated high flow with an FiO2 of 40% at 40 L rate. Very tired this morning June 10: ICU. Has been lethargic. Received hemodialysis yesterday and today. Remains on Airvo 40/40%. Failed swallow eval per speech. Very dry mouth. Lethargic. not at the bedside. Will try to meet with her tomorrow. Chest x-ray shows multifocal disease. Active Medications Acetaminophen (Acetaminophen Tab 325 Mg Tab) 650 mg PO Q6HR PRN PRN Reason: Mild Pain or Fever > 100.5 Last Admin: 06/25/24 14:27 Dose: 650 mg Acetaminophen/Butalbital/Caffeine (Butalb/Apap/Caff 50-325-40mg Tab) 1 each PO Q4H PRN PRN Reason: Migraine Headache Albuterol/Ipratropium (Ipratropium-Albuterol 3 Ml Neb) 3 ml INHALATION RT-QID [facility] Last Admin: 07/08/24 15:15 Dose: 3 ml Albuterol/Ipratropium (Ipratropium-Albuterol 3 Ml Neb) 3 ml INHALATION RT-QID PRN PRN Reason: Shortness Of Breath Or Wheezing Allopurinol (Allopurinol 100 Mg Tab) 100 mg PO DAILY [facility] Last Admin: 07/08/24 09:34 Dose: Not Given Alprazolam (Alprazolam 0.5 Mg Tab) 0.5 mg PO BID PRN PRN Reason: Anxiety Last Admin: 07/06/24 23:41 Dose: 0.5 mg Amlodipine Besylate (Amlodipine 5 Mg Tab) 5 mg PO DAILY [facility] Last Admin: 07/08/24 09:34 Dose: Not Given Aspirin (Aspirin 81 Mg) 81 mg PO DAILY [facility] Last Admin: 07/08/24 09:34 Dose: Not Given Atorvastatin Calcium (Atorvastatin 40 Mg Tab) 40 mg PO DAILY [facility] Last Admin: 07/08/24 09:34 Dose: Not Given Budesonide (Budesonide 1 Mg/2 Ml Nebu) 1 mg INHALATION RT-BID [facility] Last Admin: 07/08/24 07:44 Dose: 1 mg Calcitriol (Calcitriol 0.25 Mcg Cap) 0.25 mcg PO Mo@0900 [facility] Last Admin: 07/08/24 09:34 Dose: Not Given Clopidogrel Bisulfate (Clopidogrel 75 Mg Tab) 75 mg PO DAILY [facility] Last Admin: 07/08/24 09:35 Dose: Not Given Collagenase (Collagenase 250 Unit/Gm Ointment 30 Gm Tube) 1 applic TOPICAL DAILY [facility]; Protocol Last Admin: 07/08/24 18:20 Dose: 1 applic Darbepoetin Silverio (Darbepoetin Silverio 40 Mcg/0.4 Ml Syringe) 40 mcg SQ Q7D [facility] Last Admin: 07/03/24 09:39 Dose: Not Given Dextrose/Water (Dextrose 50% Syringe 50 Ml) 25 ml IVP PER PROTOCOL PRN; Protocol PRN Reason: Hypoglycemia Dextrose/Water (Dextrose 50% Syringe 50 Ml) 50 ml IVP PER PROTOCOL PRN; Protocol PRN Reason: Hypoglycemia Ergocalciferol (Ergocalciferol 1,250 Mcg (50,000 Iu) Capsule) 1,250 mcg PO Q14D [facility] Last Admin: 07/03/24 08:41 Dose: 1,250 mcg Escitalopram Oxalate (Escitalopram 10 Mg Tab) 10 mg PO DAILY [facility] Last Admin: 07/08/24 09:35 Dose: Not Given Fluconazole (Fluconazole 100 Mg Tab) 100 mg PO DAILY PRN PRN Reason: AFTER DIALYSIS Gabapentin (Gabapentin 100 Mg Cap) 100 mg PO HS [facility] Last Admin: 07/07/24 20:35 Dose: Not Given Haloperidol Lactate (Haloperidol Lactate 5 Mg/Ml 1 Ml Vial) 5 mg IVP Q8HR PRN PRN Reason: Agitation or Acute Psychosis Last Admin: 07/01/24 20:39 Dose: 5 mg Heparin Sodium (Porcine) (Heparin Sodium,Porcine 5,000 Unit/Ml 1 Ml Vial) 5,000 unit SQ Q12HR [facility] Last Admin: 07/08/24 09:42 Dose: 5,000 unit Norepinephrine Bitartrate 4 mg (/ Sodium Chloride) 254 mls @ 10.516 mls/hr IV .Q24H [facility]; Protocol Last Titration: 07/08/24 12:40 Dose: 0 mcg/kg/min, 0 mls/hr Insulin Glargine (Insulin Glargine (Lantus) 100 Unit/Ml Syr) 10 unit SQ DAILY@0700 [facility] Last Admin: 07/08/24 06:48 Dose: Not Given Insulin Human Lispro (Insulin Lispro (Humalog) 100 Unit/Ml 10 Ml Vl) 0 unit SQ ACHS [facility]; Protocol Last Admin: 07/08/24 16:43 Dose: Not Given Isosorbide Mononitrate (Isosorbide Mononitrate Er 60 Mg Tab.Er.24h) 60 mg PO DAILY [facility] Last Admin: 07/08/24 09:35 Dose: Not Given Methylprednisolone Sodium Succinate (Methylprednisolone Sod Succi 40 Mg/Ml 1 Ml Vial) 40 mg IV Q12HR [facility] Last Admin: 07/08/24 09:42 Dose: 40 mg Metoprolol Succinate (Metoprolol Succinate (Er) 25 Mg Tab.Er.24h) 25 mg PO DAILY [facility] Last Admin: 07/08/24 09:35 Dose: Not Given Midodrine (Midodrine 5 Mg Tab) 10 mg PO AC-TID PRN PRN Reason: SBP <120 Last Admin: 07/05/24 09:34 Dose: 10 mg Naloxone HCl (Naloxone 0.4 Mg/Ml 1 Ml Vial) 0.2 mg IV Q2M PRN PRN Reason: Opioid Reversal Pantoprazole Sodium (Pantoprazole 40 Mg/10 Ml Vial) 40 mg IVP DAILY [facility] Last Admin: 07/08/24 09:42 Dose: 40 mg Petrolatum (Zinc Oxide Paste (Z-Guard) 1 Applic) 1 applic TOPICAL BID [facility]; Protocol Last Admin: 07/08/24 09:35 Dose: Not Given Ranolazine (Ranolazine 500 Mg Tab.Er.12h) 500 mg PO Q12HR [facility] Last Admin: 07/08/24 09:35 Dose: Not Given Tamsulosin HCl (Tamsulosin 0.4 Mg Cap.Er.24h) 0.4 mg PO PC-BRKFST [facility] Last Admin: 07/08/24 09:34 Dose: Not Given Triamcinolone Acetonide (Triamcinolone Acet 0.5% Cream 15 Gm Tube) 1 applic TOPICAL BID PRN; Protocol PRN Reason: rash/dry skin Social history: Non-smoking. No alcohol. On examination: VITAL SIGNS: 98.3, 95, 12, 106 x 55, 93% on Airvo 40/40 GENERAL APPEARANCE: Lying in bed, tired but lethargic HEENT: Normal external appearance of nose and ear. Oral cavity normal EYES: Pupils equal. Conjunctiva normal. NECK: JVD not raised. Mass not palpable. RESPIRATORY: Respiratory effort increased lungs decreased breath sounds with some fine crackles CARDIOVASCULAR: First and second sounds normal. Minimal edema in the right leg ABDOMEN: Soft. Liver and spleen not palpable. No tenderness. No right upper quadrant tenderness. No mass palpable. Colostomy bag with liquid stool PSYCHIATRY: Arousable. Extremity: Right foot in dressing INVESTIGATIONS, reviewed in the clinical context: July 08: White count 9.9 hemoglobin 11.7 platelets 227 sodium 130 potassium 5.8 BUN 99 creatinine 5.39 June 21: White count 20 hemoglobin 11.6 platelets 150 sodium 134 BUN 45 creatinine 3.36 June 10: White count 12.8 hemoglobin 7.9 platelets 335 sodium 135 potassium 5.2 BUN 118 creatinine 4.1 June 04: White count 10.2 hemoglobin 10.4 platelet 374 sodium 135 potassium 4.6 BUN 66 creatinine 2.71 troponin I less than 0.012 proBNP 2550 EKG tracing personally reviewed by me-atrial fibrillation. Rate 68 Chest x-ray film personally reviewed by va-pulm edema Recent labs May 30: Potassium 4.7 BUN 42.3 creatinine 2.3 Assessment and plan: -Acute on chronic congestive heart failure exacerbation, from diastolic dysfunction EF 55 to 60%.: Better Received IV Lasix Started on dialysis June 10.- -Acute hypoxic respiratory failure from pulmonary edema: Slow to respond Initially BiPAP, currently Airvo. 40/40 -Acute respiratory distress syndrome, multifactorial: Slow to respond Patient back on Airvo IV Solu-Medrol, 40 mg every 12- -COPD non-smoker DuoNeb 4 times daily. Nebulized Pulmicort -Chronic ostomy-functioning well -Chronic cephalgia. Patient stated headaches for greater than 6 months. Practically every day. Does not interfere with his eating. No exacerbating relieving factors: Possible tension headaches. CT scan of the brain shows some chronic changes MRI and MRI of the brain showing chronic changes. Seen by Dr. Gay from neurology a week ago. Further outpatient follow-up with neurology -Acute delirium/metabolic encephalopathy. Multifactorial: Better -Right heel wound. Dry. Follows with Dr. Jernigan at the wound center. Dr. Carpenter from vascular-. Deep debridement carried recently Wound culture [May 29] MRSA, Proteus IV cefepime, daptomycin per ID-now discontinued -Chronic parastomal hernia -Metabolic encephalopathy -Dysphagia. Failed swallow eval as per speech therapy. #Hypertension: Amlodipine. Toprol-XL. -Acute kidney injury, likely cardiorenal: On hemodialysis Right femoral vein dialysis catheter placed by Dr. Carpenter on June 10. Hemodialysis started June 10-Daily Right IJ PermCath placement -CKD likely nephrosclerosis, diabetic nephropathy Creatinine was 1.6 on April 28, 2024. -CAD with stent Toprol-XL -Anemia in the setting of chronic kidney disease. Iron deficiency anemia. Received IV iron -Primary osteoarthritis Pain medication as needed -History of prostate cancer with radiation and chemo in 2020. #Diabetes mellitus type II, chronically on insulin: Uncontrolled with hyperglycemia Levemir to 28 units SQ every 12 #Hyperlipidemia: Lipitor #GERD: Protonix -DNR Prognosis guarded. Will try to meet up with tomorrow. Past Medical History Past Medical History: Cancer, Chest Pain / Angina, Diabetes Mellitus, Eye Disorder, GERD/Reflux, Hyperlipidemia, Hypertension, Osteoarthritis (OA), Prostate Disorder, Renal Disease Additional Past Medical History / Comment(s): HX OF ULCERATIVE COLITIS, ileostomy PARASTOMAL HERNIA, PROSTATE CA WITH RADIATION AND CHEMO IN 2020, LOW KIDNEY FUNCTION,Covid Dec 2022, Influenza A Jun 2023, eye condition, unsure of name. History of Any Multi-Drug Resistant Organisms: MRSA Date of last positivie culture/infection: 05/24/24 MDRO Source:: rt heel, scalp Past Surgical History: Appendectomy, Bowel Resection, Heart Catheterization, Heart Catheterization With Stent Additional Past Surgical History / Comment(s): COLECTOMY, RECTUM REMOVED, ELLIOTT CATARACTS removed, ILEOSTOMY, HERNIA SURGERY. Past Anesthesia/Blood Transfusion Reactions: No Reported Reaction Additional Past Anesthesia/Blood Transfusion Reaction / Comment(s): no problems with prior blood transfusions. Date of Last Stent Placement:: 08/01/2023 Past Psychological History: No Psychological Hx Reported Smoking Status: Never smoker Past Alcohol Use History: None Reported Past Drug Use History: None Reported
[2024-07-08 20:47] LABS: Glucose,Whole Blood 113 mg/dL (70-110)
[2024-07-09 00:09] LABS: Glucose,Whole Blood 129 mg/dL (70-110)
[2024-07-09] MEDS: INSULIN LISPRO (HumaLOG) 100 UNIT/ML 10 mL VL SQ SCH (00:10)
[2024-07-09] MEDS: ACETAMINOPHEN IV (For NPO) 1,000 MG in EMPTY BAG 1 BAG IVPB ONE (00:55)
[2024-07-09 05:59] LABS: Anisocytosis Slight; Basophils % (A) 0 %; Eosinophils # (A) 0.1 k/uL (0-0.7); Eosinophils % (A) 1 %; HCT 42.3 % (39.0-53.0); HGB 12.6 gm/dL (13.0-17.5); Hypochromasia Moderate; Lymphocytes # (A) 0.2 k/uL (1.0-4.8); Lymphocytes % (A) 1 %; MCH 30.4 pg (25.0-35.0); MCHC 29.7 g/dL (31.0-37.0); MCV 102.2 fL (80.0-100.0); Macrocytosis Moderate; Mean Platelet Volume 8.7; Monocytes # (A) 0.7 k/uL (0-1.0); Monocytes % (A) 5 %; Neutrophils % (A) 92 %; Platelet Count 221 k/uL (150-450); RBC 4.14 m/uL (4.30-5.90); RDW 17.2 % (11.5-15.5)
[2024-07-09 06:13] LABS: Anion Gap 15 mmol/L; Blood Urea Nitrogen 67 mg/dL (9-20); Calcium 8.5 mg/dL (8.4-10.2); Carbon Dioxide 23 mmol/L (22-30); Chloride 93 mmol/L (98-107); Glucose 153 mg/dL (74-99); Magnesium 2.2 mg/dL (1.6-2.3); Potassium 5.6 mmol/L (3.5-5.1); Sodium 131 mmol/L (137-145)
[2024-07-09 06:19] LABS: African American GFR (CKD) 16 (>60 ml/min/1.73 sqM); Non-African American GFR(CKD) 14 (>60 ml/min/1.73 sqM)
[2024-07-09 06:28] LABS: Glucose,Whole Blood 147 mg/dL (70-110)
--- NOTE | 2024-07-09 08:25 | XR ---
EXAMINATION TYPE: XR chest 1V portable DATE OF EXAM: 07/09/2024 4:46 AM COMPARISON: Chest radiographs from 07/08/2024 CLINICAL INDICATION: Male, 73 years old with history of f/u bilateral interstitial markings; [facility] TECHNIQUE: XR chest 1V portable Frontal view of the chest. FINDINGS: Lungs/Pleura: There is no evidence of pleural effusion, focal consolidation, or pneumothorax. Pulmonary vascularity: Unremarkable. Heart/mediastinum: Cardiomediastinal silhouette is unremarkable. Musculoskeletal: No acute osseous pathology. Other findings: None Lines/Tubes: Right internal jugular central venous catheter with distal tip at the cavoatrial junction. IMPRESSION: 1. Similar pulmonary edema. 2. Stable support line [facility], , 07/09/2024 8:23 AM
--- NOTE | 2024-07-09 11:02 | P.PN ---
Subjective Patient seen for follow-up for chronic kidney disease with acute kidney injury. Initiated hemodialysis 06/10/2024. Currently on Airvo. Awake and alert. Off vasopressors. No problems with dialysis yesterday. Vital signs are stable. General: Resting in bed. No acute distress. HEENT: On Airvo. LUNGS: Scattered rhonchi. HEART: Rate and Rhythm are regular. ABDOMEN: Obese, nontender. EXTREMITITES: Trace edema. Objective - Vital Signs Vital signs: Vital Signs Temp 97.5 F L 07/09/24 08:00 Pulse 94 07/09/24 09:00 Resp 14 07/09/24 09:00 BP 135/67 07/09/24 09:00 Pulse Ox 97 07/09/24 09:00 FiO2 40 07/09/24 08:00 Intake & Output 07/08/24 07/09/24 07/09/24 18:59 06:59 18:59 Intake Total 877.692 Output Total 4175 0 0 Balance -3297.308 0 0 Weight 92 kg 86.9 kg Intake: IV 50 Sodium Chloride 0.9% 1000 50 mL @ 10 mLs/hr Intake, IV Titration 27.692 Amount Norepinephrine 4 mg In 27.692 Sodium Chloride 0.9% 250 ml @ 0.03 MCG/KG/MIN 10. 516 mls/hr IV .Q24H [facility] Rx#:[id number] Hemodialysis 800 Output: Urine 0 0 0 Stool 175 Hemodialysis 2400 Hemodialysis Net Amount 1600 Other: # Bowel Movements 1 - Labs CBC & Chem 7: 07/09/24 05:33 07/09/24 05:33 Labs: Abnormal Lab Results - Last 24 Hours (Table) 07/08/24 07/08/24 07/09/24 Range/Units 16:29 20:45 00:08 WBC (3.8-10.6) k/uL RBC (4.30-5.90) m/uL Hgb (13.0-17.5) gm/dL MCV (80.0-100.0) fL MCHC (31.0-37.0) g/dL RDW (11.5-15.5) % Neutrophils # (1.3-7.7) k/uL Lymphocytes # (1.0-4.8) k/uL Sodium (137-145) mmol/L Potassium (3.5-5.1) mmol/L Chloride (98-107) mmol/L BUN (9-20) mg/dL Creatinine (0.66-1.25) mg/dL Glucose (74-99) mg/dL POC Glucose (mg/dL) 118 H 113 H 129 H (70-110) mg/dL 07/09/24 07/09/24 07/09/24 Range/Units 05:33 05:33 06:26 WBC 13.0 H (3.8-10.6) k/uL RBC 4.14 L (4.30-5.90) m/uL Hgb 12.6 L (13.0-17.5) gm/dL MCV 102.2 H (80.0-100.0) fL MCHC 29.7 L (31.0-37.0) g/dL RDW 17.2 H (11.5-15.5) % Neutrophils # 12.0 H (1.3-7.7) k/uL Lymphocytes # 0.2 L (1.0-4.8) k/uL Sodium 131 L (137-145) mmol/L Potassium 5.6 H (3.5-5.1) mmol/L Chloride 93 L (98-107) mmol/L BUN 67 H (9-20) mg/dL Creatinine 4.02 H (0.66-1.25) mg/dL Glucose 153 H (74-99) mg/dL POC Glucose (mg/dL) 147 H (70-110) mg/dL Assessment and Plan Assessment: # Acute kidney injury secondary to ATN secondary to cardiorenal syndrome. Start hemodialysis 06/10/2024. Has permacath. #Acute on chronic diastolic CHF #Volume overload. #Hypertension with CKD stage IV. Controlled. #Acute hypoxic respiratory failure secondary to CHF. On Airvo. #CAD s/p stent placement #Metabolic acidosis secondary to CKD, improved with dialysis #Right heel wound s/p debridement #Hyperkalemia secondary to acute kidney injury. # Hypervolemic hyponatremia. # Anemia of chronic kidney disease. Status post IV iron. On Aranesp. Plan: -Hemodialysis today. Continue to assess on daily basis. Challenge ultrafiltration. -Maintain midodrine as needed during dialysis for systolic blood pressure less than 100. -Renal diet. -Avoid nephrotoxic agents -Wean FiO2 -Hemodialysis set up as outpatient for M/W/F once discharged -Patient will be maintained on 3 times a week hemodialysis upon discharge -Prognosis guarded.
[2024-07-09 11:07] LABS: Glucose,Whole Blood 164 mg/dL (70-110)
[2024-07-09] MEDS: BENZOCAINE SPRAY 1 CAN MUCOUS MEM PRN (12:49)
--- NOTE | 2024-07-09 14:06 | P.PN ---
Subjective Progress Note Date: 07/09/24 Principal diagnosis: Reason for follow-up is right heel diabetic foot ulcer with MRSA infection Patient is a 73-year-old male with a past medical history significant for diabetes mellitus hypertension hyperlipidemia osteomyelitis patient has been dealing with a chronic nonhealing wound to the right heel area for months now and is being treated in outpatient setting by Dr. Jernigan his junior account executive with recent outpatient culture positive for MRSA and is Proteus. On today's evaluation that is 07/09/2024, Patient is afebrile this morning patient still requiring high flow nasal cannula oxygen FiO2 is down to 35%, has been complaining of sores in the mouth and difficulty swallowing no vomiting or diarrhea. Patient white count is 13,000, creatinine 4.02 chest x-ray with pulmonary edema Objective - Vital Signs Vital signs: Vital Signs Temp 98.2 F 07/09/24 12:00 Pulse 93 07/09/24 13:00 Resp 10 L 07/09/24 13:00 BP 127/74 07/09/24 13:00 Pulse Ox 94 L 07/09/24 13:00 FiO2 35 07/09/24 11:08 Intake & Output 07/08/24 07/09/24 07/09/24 18:59 06:59 18:59 Intake Total 877.692 Output Total 4175 0 0 Balance -3297.308 0 0 Weight 92 kg 86.9 kg Intake: IV 50 Sodium Chloride 0.9% 1000 50 mL @ 10 mLs/hr Intake, IV Titration 27.692 Amount Norepinephrine 4 mg In 27.692 Sodium Chloride 0.9% 250 ml @ 0.03 MCG/KG/MIN 10. 516 mls/hr IV .Q24H [facility] Rx#:[id number] Hemodialysis 800 Output: Urine 0 0 0 Stool 175 Hemodialysis 2400 Hemodialysis Net Amount 1600 Other: # Bowel Movements 1 - Exam GENERAL DESCRIPTION: An elderly male lying in bed in no distress RESPIRATORY SYSTEM: Unlabored breathing , decreased breath sounds at bases HEART: S1 S2 regular rate and rhythm , ABDOMEN: Soft , no tenderness EXTREMITIES: Right hand wound is currently dressed - Labs CBC & Chem 7: 07/09/24 05:33 07/09/24 05:33 Labs: Abnormal Lab Results - Last 24 Hours (Table) 07/08/24 07/08/24 07/09/24 Range/Units 16:29 20:45 00:08 WBC (3.8-10.6) k/uL RBC (4.30-5.90) m/uL Hgb (13.0-17.5) gm/dL MCV (80.0-100.0) fL MCHC (31.0-37.0) g/dL RDW (11.5-15.5) % Neutrophils # (1.3-7.7) k/uL Lymphocytes # (1.0-4.8) k/uL Sodium (137-145) mmol/L Potassium (3.5-5.1) mmol/L Chloride (98-107) mmol/L BUN (9-20) mg/dL Creatinine (0.66-1.25) mg/dL Glucose (74-99) mg/dL POC Glucose (mg/dL) 118 H 113 H 129 H (70-110) mg/dL 07/09/24 07/09/24 07/09/24 Range/Units 05:33 05:33 06:26 WBC 13.0 H (3.8-10.6) k/uL RBC 4.14 L (4.30-5.90) m/uL Hgb 12.6 L (13.0-17.5) gm/dL MCV 102.2 H (80.0-100.0) fL MCHC 29.7 L (31.0-37.0) g/dL RDW 17.2 H (11.5-15.5) % Neutrophils # 12.0 H (1.3-7.7) k/uL Lymphocytes # 0.2 L (1.0-4.8) k/uL Sodium 131 L (137-145) mmol/L Potassium 5.6 H (3.5-5.1) mmol/L Chloride 93 L (98-107) mmol/L BUN 67 H (9-20) mg/dL Creatinine 4.02 H (0.66-1.25) mg/dL Glucose 153 H (74-99) mg/dL POC Glucose (mg/dL) 147 H (70-110) mg/dL 07/09/24 Range/Units 11:05 WBC (3.8-10.6) k/uL RBC (4.30-5.90) m/uL Hgb (13.0-17.5) gm/dL MCV (80.0-100.0) fL MCHC (31.0-37.0) g/dL RDW (11.5-15.5) % Neutrophils # (1.3-7.7) k/uL Lymphocytes # (1.0-4.8) k/uL Sodium (137-145) mmol/L Potassium (3.5-5.1) mmol/L Chloride (98-107) mmol/L BUN (9-20) mg/dL Creatinine (0.66-1.25) mg/dL Glucose (74-99) mg/dL POC Glucose (mg/dL) 164 H (70-110) mg/dL Assessment and Plan (1) Diabetic infection of right foot Current Visit: Yes Status: Acute Code(s): E11.628 - TYPE 2 DIABETES MELLITUS WITH OTHER SKIN COMPLICATIONS; L08.9 - LOCAL INFECTION OF THE SKIN AND SUBCUTANEOUS TISSUE, UNSP SNOMED Code(s): 847576884 (2) MRSA (methicillin resistant staph aureus) culture positive Current Visit: Yes Status: Acute Code(s): Z22.322 - CARRIER OR SUSPECTED CARRIER OF METHICILLIN RESIS STAPH SNOMED Code(s): 454395675 (3) Diabetic ulcer of right foot Current Visit: No Status: Acute Code(s): E11.621 - TYPE 2 DIABETES MELLITUS WITH FOOT ULCER; L97.519 - NON-PRS CHRONIC ULCER OTH PRT RIGHT FOOT W UNSP SEVERITY SNOMED Code(s): 290482021 (4) Stage III pressure ulcer of right heel Current Visit: No Status: Acute Code(s): L89.613 - PRESSURE ULCER OF RIGHT HEEL, STAGE 3 SNOMED Code(s): 68727468243543 (5) Stomatitis and mucositis Current Visit: Yes Status: Acute Code(s): K12.1 - OTHER FORMS OF STOMATITIS; K12.30 - ORAL MUCOSITIS (ULCERATIVE), UNSPECIFIED SNOMED Code(s): 75163724 Plan: 1patient with a chronic nonhealing wound to the right heel which he has for couple of months the wound looks deep with a recent culture positive for Proteus and MRSA concerning for wound infection and question for possible deeper infection such as osteomyelitis as wound has been there for couple of months now 2- -patient has been evaluated by Dr. Carpenter and did have surgical debridement completed on 06/07/2024 and did have a further debridement at the bedside by his junior account executive on 06/14/2024 and has been repeat debridement done on 07/02/2024 4-patient has extensive mucositis possible component of thrush covered with Diflucan symptomatic treatment has been ordered by resident physician see clinical response nystatin swish and swallow offered patient mention not able to do it Dictation was produced using [employer] dictation software. please excuse any grammatical, word or spelling errors. Time with Patient: Less than 30
--- NOTE | 2024-07-09 15:05 | P.PN ---
Subjective Progress Note Date: 07/09/24 Patient is a 73-year-old male with past medical history significant for hypertension, hyperlipidemia, coronary artery disease with previous PCI/stenting, heart failure, chronic kidney disease, diabetes mellitus, chronic right heel wound, ulcerative colitis with previous colectomy and ileostomy. Of note, patient had a recent hospitalization late May and was just discharged 05/31/2024 for CHF exacerbation. Echocardiogram done during this hospitalization estimating a preserved left ventricular ejection fraction of 55 to 60%. Limited study, but no acute valvular abnormalities reported. Presented the emergency department on 06/04/2024 with a chief complaint of shortness of breath, mostly on exertion. Chest x-ray showing cardiomegaly, mild pulmonary vascular congestion, and a small pleural effusion on the left. NT proBNP elevated 2550. On 07/08/2024, the patient is lethargic. Resting comfortably in bed and the patient is undergoing hemodialysis with a goal of 1.9 L of ultrafiltration. Last hemodialysis was done on 07/06/2024 and a total of 1 L of fluid was removed. In terms of his respiratory status, the patient remains in acute hypoxic respiratory failure. The patient remains on Airvo at 4 L with an FiO2 of 40%. A repeat chest x-ray was done this morning and it showed similar multifocal airspace disease, no evidence of any pneumothorax. No other acute abnormalities noted. The patient remains on DuoNeb nebulized treatments [id number]. The patient remains on IV Solu-Medrol 40 mg every 12 hours. In terms of antibiotic coverage, all of the antibiotics have been discontinued and infectious disease of on the case. He remains on Lantus insulin 10 units daily. He is on sliding scale insulin coverage. Remains on Lipitor 40 mg p.o. daily, Norvasc 5 mg p.o. daily and Imdur 60 mg p.o. daily. His oral intake is quite diminished. Appetite is poor. Prolonged hospitalization with ongoing debility secondary above-mentioned comorbidities. On 07/09/2024, the patient is lethargic. Slightly more arousable compared to yesterday. Continues to be hypoxic and the patient continues to be on Airvo at 40 L and FiO2 40%. Underwent hemodialysis yesterday with a total of 1.60 days of ultrafiltration. He is encountering hypotension which is limiting ultrafiltration. Limited cough. No significant sputum production. Mucous membranes are dry. Remains on DuoNeb updrafts. Remains on Perforomist and Pulmicort nebulized treatments twice a day and IV Solu-Medrol 40 mg every 12 hours. Rest of the medications remain unchanged. Blood work from today shows a white cell count of 13, it was 12.6 and a platelet count of 221. Sodium levels at 131, BUN 67 and the creatinine is 4.02 and a potassium level is at 5.6. He is currently NPO. He was unable to swallow and he failed a swallow evaluation per speech pathology. Based on that, the patient was kept NPO. Further discussions to be done with the family. Objective - Vital Signs Vital signs: Vital Signs Temp 98.0 F 07/09/24 04:00 Pulse 95 07/09/24 08:07 Resp 16 07/09/24 08:07 BP 124/73 07/09/24 07:00 Pulse Ox 94 L 07/09/24 07:54 FiO2 40 07/09/24 07:54 Intake & Output 07/08/24 07/09/24 07/09/24 18:59 06:59 18:59 Intake Total 877.692 Output Total 4175 0 0 Balance -3297.308 0 0 Weight 92 kg 86.9 kg Intake: IV 50 Sodium Chloride 0.9% 1000 50 mL @ 10 mLs/hr Intake, IV Titration 27.692 Amount Norepinephrine 4 mg In 27.692 Sodium Chloride 0.9% 250 ml @ 0.03 MCG/KG/MIN 10. 516 mls/hr IV .Q24H [facility] Rx#:[id number] Hemodialysis 800 Output: Urine 0 0 0 Stool 175 Hemodialysis 2400 Hemodialysis Net Amount 1600 Other: # Bowel Movements 1 - Exam GENERAL EXAM: Awake, alert 73-year-old obese male, the patient is on Airvo 40 L with FiO2 of 40%. Lethargic. Weak. Getting progressively more debilitated. HEAD: Normocephalic and atraumatic EYES: Normal reaction of pupils, equal size. NOSE: Clear with pink turbinates. THROAT: No erythema or exudates. NECK: No masses, no JVD. CHEST: No chest wall deformity. LUNGS: Equal air entry with diminished lung sounds throughout. Crackles in the bilateral bases. CVS: S1 and S2 normal with no audible murmur, regular rhythm. No extra heart sounds ABDOMEN: No hepatosplenomegaly, active bowel sounds, no guarding or rigidity. Functional ileostomy SPINE: No scoliosis or deformity SKIN: Generalized erythemic plaques involving upper extremities, chest, back CENTRAL NERVOUS SYSTEM: No focal deficits, tone is normal in all 4 extremities. EXTREMITIES: Right foot is wrapped with a bandage. There is 1-2+ peripheral edema. Peripheral pulses are intact. - Labs CBC & Chem 7: 07/09/24 05:33 07/09/24 05:33 Labs: Abnormal Lab Results - Last 24 Hours (Table) 07/08/24 07/08/24 07/09/24 Range/Units 16:29 20:45 00:08 WBC (3.8-10.6) k/uL RBC (4.30-5.90) m/uL Hgb (13.0-17.5) gm/dL MCV (80.0-100.0) fL MCHC (31.0-37.0) g/dL RDW (11.5-15.5) % Neutrophils # (1.3-7.7) k/uL Lymphocytes # (1.0-4.8) k/uL Sodium (137-145) mmol/L Potassium (3.5-5.1) mmol/L Chloride (98-107) mmol/L BUN (9-20) mg/dL Creatinine (0.66-1.25) mg/dL Glucose (74-99) mg/dL POC Glucose (mg/dL) 118 H 113 H 129 H (70-110) mg/dL 07/09/24 07/09/24 07/09/24 Range/Units 05:33 05:33 06:26 WBC 13.0 H (3.8-10.6) k/uL RBC 4.14 L (4.30-5.90) m/uL Hgb 12.6 L (13.0-17.5) gm/dL MCV 102.2 H (80.0-100.0) fL MCHC 29.7 L (31.0-37.0) g/dL RDW 17.2 H (11.5-15.5) % Neutrophils # 12.0 H (1.3-7.7) k/uL Lymphocytes # 0.2 L (1.0-4.8) k/uL Sodium 131 L (137-145) mmol/L Potassium 5.6 H (3.5-5.1) mmol/L Chloride 93 L (98-107) mmol/L BUN 67 H (9-20) mg/dL Creatinine 4.02 H (0.66-1.25) mg/dL Glucose 153 H (74-99) mg/dL POC Glucose (mg/dL) 147 H (70-110) mg/dL Assessment and Plan Plan: Acute hypoxic respiratory failure. The patient developed hypoxemia with progressive worsening oxygenation during this current hospital stay. Patient is currently on Airvo 40 L with an FiO2 of 40%. Chest x-ray continues to show diffuse bilateral pulmonary infiltrates. Initially, there was consideration of a diastolic heart failure with secondary pulmonary edema. Nevertheless, the patient continued to have diffuse airspace disease bilaterally and did not respond to dialysis and ultrafiltration. He was given broad-spectrum antibiotics. He was also given steroids. Consider acute lung injury. Infectious causes of respiratory failure and bilateral pulmonary infiltrates are felt to be less likely still. I was contemplating a bronchoscopy endobronchial lavage to rule out any other opportunistic infections. However, based on discussion with the family and the , the family seem to be more interested in comfort care measures. A final decision has not been done yet. Acute on chronic kidney disease now requiring renal replacement therapy that started June 10, 2024, underwent dialysis via permacath in the right IJ. The patient continues to undergo periodic hemodialysis. Dialysis was performed on 07/08/2024 for a total of 1.6 L of ultrafiltration Hyperkalemia, potassium level from today is at 5.6 Dysphagia and the patient is currently n.p.o. Acute on chronic anemia secondary to above History of CAD with previous PCI Diabetes mellitus type II Hypertension Hyperlipidemia Chronic cephalgia History of UC with previous colectomy and ileostomy History of prostate cancer status post chemoradiation Chronic right heel wound, status post debridement on 05/28/2024 again today June 14, 2024, antibiotics evidence discontinued and the patient is currently receiving local wound care. Obesity, with a BMI of 38.8 kg/m Never tobacco smoker Plan: Titrate FiO2 to maintain saturation above 90%, will wean the patient's flow to 35 L with an FiO2 of 35% and monitor the oxygenation. Continue Airvo Hemodialysis to be continued by nephrology. The patient has a permacath in the right IJ. Hemodialysis was performed on 07/08/2024 Continue bronchodilators Antibiotics have been discontinued Chest x-ray was reviewed Continue IV Solu-Medrol 40 mg every 12 hours Offered bronchoscopy endobronchial lavage despite the complexity of the procedure. Family is more interested in comfort care measures. Further discussion is to be done in consideration for comfort care measures/hospice. Patient will be kept n.p.o. due to ongoing dysphagia Reevaluate swallow in a.m. Prognosis remains extremely poor The patient will be kept in the ICU for now. Likely another session of dialysis and will monitor the potassium Heparin for DVT prophylaxis Protonix for GI prophylaxis We will continue to follow Critical care evaluation, 31 minutes Time with Patient: Greater than 30
--- NOTE | 2024-07-09 15:51 | P.PN ---
Progress Note - Text Progress Note Date: 07/09/24 Chief Complaint: Short of breath Pleasant 73-year-old patient follows with Dr. Dennis. 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 Bales. April 26, [address] Bales: Following a non-ST relation AR: Patent stent to mid LAD. Late stent thrombosis of the second diagonal branch of the LAD. Severe disease involving the OM1 appears unchanged. Attempted balloon angioplasty performed to the second of diagonal branch with suboptimal results. Dose of Imdur was increased and Ranexa was added. Patient recently in the hospital from May 28 through May 31. Chronic headaches: MRI unremarkable. MR angio head and neck: MR angio head without contrast: No evidence of aneurysm or significant stenosis. Atrophic right A1 segment. origin of the right posterior cerebral artery.MRI of the brain nonspecific. Was seen by neurology Dr. Gay. Patient to follow-up outpatient Chronic right heel wound seen by Dr. Carpenter from vascular deep debridement was carried out. No need for antibiotics. Patient to follow-up with Dr. Jernigan at the wound center. Shortness of breath: Was seen by cardiology. Not for any further intervention. Patient doing well when discharged. Patient presented increased shortness of breath when at home. His pulse ox dropped out of the 80s. Increasing shortness of breath. Decreased appetite. No fever or chills. June 10: Using his BiPAP. Patient seen this morning. Later this afternoon. Right femoral vein dialysis catheter was placed by Dr. Carpenter from vascular for dialysis. Baseline some shortness of breath. Due for first dialysis today. Patient is right heel culture grew MRSA Proteus P Corynebacterium on May 29. Patient is on IV daptomycin and IV cefepime per ID. June 11: Patient seen this afternoon. On BiPAP. Getting hemodialysis. Remains on IV daptomycin IV Zosyn. Tired. Also getting IV iron. Patient really did not eat today. Because of BiPAP. Cut back Levemir to 26 units at night. DC scheduled NovoLog for now. June 12: Overflowing the ICU. Remains on BiPAP. 04/05/90%. at the bedside. Remains on IV daptomycin and IV Zosyn. For dialysis today. X-ray continues shows infiltrates. Significantly hypoxic. N.p.o. June 13: ICU. Remains on BiPAP. 12/6/90% moderate take anything by mouth. Spoke to the nurse have TPN lipids ordered. Remains on IV daptomycin IV Zosyn. Chest x-ray continues to show diffuse infiltrates. Continues to be followed by cardiology pulmonary ID nephrology. June 14: ICU. Later this afternoon patient was put on Airvo. 60/60. Has some delirium. Remains on IV daptomycin and IV Zosyn. Had 2 L ultrafiltration yesterday. Patient getting daily dialysis for now. As patient is oliguric per nephrology Lasix has been held. TPN was ordered yesterday per the nurse culture that returned to feed the patient. Will see how that goes. Dietitian on the case. June 15: ICU. Patient be getting hypotensive. Some medications held back by cardiology. Hemodialysis done today. Patient remains on Airvo though at 50/50. at the bedside. Plans this afternoon to get him up in the chair. Remains on daptomycin and IV Zosyn. IV Lasix been discontinued. Patient tolerating some liquid diet. June 16: Patient moved to the ICU. Remains on Airvo. 45/45. at the bedside. Tolerating full liquids. Spoke to the about the morphine. His headaches are chronic. Use Fioricet as needed. Remains on IV daptomycin and IV Zosyn. IV Solu-Medrol. Amlodipine dose cut back. PT OT. June 17: On 3 S., telemetry floor. Getting hemodialysis today. Remains on IV daptomycin IV Zosyn. On full liquid diet. Advance to ground diet. Minimal urine output. DC fluid restriction. Awake communicating. Accu-Cheks running high. Increase Levemir to 28 units subcu twice daily. Seen by PT OT. Maximum assist. On Airvo 40/40. Cut back Solu-Medrol to every 12. June 18: On a recliner. 7 L nasal cannula. Decreased appetite. at the bedside. Accu-Chek in 200s. IJ PermCath placement pending. Encourage oral intake. Ordered incentive spirometry June 19: Patient was on 7 L nasal cannula yesterday. Patient back on Airvo today. 40 L. Due for hemodialysis today. Had perm dialysis catheter placed right IJ by Dr. Carpenter today. Minimal intake today. Discussed with at the bedside. June 20: Recliner. High flow 15 L nasal cannula. at the bedside. Decreased oral intake.Tired. Hemodialysis today. June 21: Still decreased appetite. Remains on high flow 15 l nasal cannula. Remains on IV daptomycin IV Zosyn per ID. Being followed by multiple con sultants spoke to the patient and . Encourage oral intake. June 22: Remains on 15 L high flow nasal cannula. at the bedside. Diet. Remains on IV daptomycin IV Zosyn. Decreased appetite. Will try ground diet. June 23: Monday to the bed. Ate a bit better according to the . Remains on 15 L nasal cannula. Oral candidiasis. Diflucan 200 mg x 1 today. Then 100 mg 3 times a week after each dialysis. Remains on daptomycin IV Zosyn per ID. Discussed with patient 06/24 I am resuming the care of the patient today He is sitting at the edge of the bed feels comfortable. Still requiring 15 units of oxygen, he states that he feels better than yesterday after he was started on IV Solu-Medrol 40 mg twice daily. At home he was not on oxygen Also he is on daptomycin and Diflucan. He is also on antibiotic for his right foot ulcer with dressing in place. No pain 06/25 Patient feels the same Oxygen requirements down from 15 down to 12 L/min His labs showing more hemoconcentration with leukocytosis 23K, hemoglobin 12.2 and platelet 128 all went up little bit. Creatinine 2.5. Sodium improved 132 He remains on Zosyn daptomycin and fluconazole and IV Solu-Medrol 40 mg twice daily 06/26 Patient is breathing quietly while he is sitting in bed. He is getting 11 L via nasal cannula in the morning, however later on it looks like his oxygen supply w as increased. Patient denies any other new symptoms His sodium today was 129 and potassium elevated 6.6 and creatinine 4.3. Patient getting dialysis for hyperkalemia protocol. WBC went down to 11.8. Hemoglobin stable at 10.1. Platelet count 122. Remains on triple antibiotics with Diflucan, daptomycin and Zosyn. Also is on IV Solu-Medrol 40 mg twice daily. No more panic attack. Yesterday after rounding he developed panic attacks and improved with Xanax 06/27 Patient required more oxygen starting yesterday and today his saturation well on higher dose of oxygen 40 L/min with FiO2 of 66% Chest x-ray showing cardiomegaly, pulmonary vascular congestion and pleural effusion Currently patient torsemide 40 mg daily Also is getting hemodialysis yesterday and there is another dialysis going on f or tomorrow Also he remains on IV Solu-Medrol 40 mg and broad-spectrum antibiotics as above 06/28 Since yesterday patient oxygen requirement started worsening significantly he was placed on high flow nasal cannula at 40 L with FiO2 of 60 to 66%. By the evening patient required to be placed on BiPAP and he was sent to the ICU. Repeat chest x-ray showing cardiomegaly with pulmonary vascular congestion. Echocardiogram from 05/29/2024 showing ejection fraction of 55 to 60%. Patient also undergoing hemodialysis. Creatinine increased today to 4.63. Remains on torsemide, IV Solu-Medrol antibiotics with Zosyn daptomycin and fluconazole 06/29--- patient was seen and examined today. Continues to require on and off BiPAP, currently on heated high flow oxygen, undergoing hemodialysis. Remains on daptomycin and Zosyn. Pulmonary, ID, nephrology following. On Diflucan. Patient is afebrile, heart rate 78, respiratory rate 17, blood pressure 130/61,'s on 50 L heated high flow oxygen. WBC 11.1, hemoglobin 9.2, platelet 97. Sodium 129 potassium 4.0 BUN 61 creatinine 3.57. 06/30--patient was seen and examined today. Afebrile, heart rate 80, respiratory rate 19, blood pressure 121/58, saturating 94% on 50 L heated high flow. WBCs 11.0, hemoglobin 9.5, platelet 113. Sodium 128 potassium 3.8, chloride 90, CO2 26, BUN 48, creatinine 2.58. Patient reported urine output today. Infectious disease following, currently on Zosyn and daptomycin. ICU following. Nephrology following, plan for hemodialysis tomorrow, challenge ultrafiltration. Currently on torsemide. Received IV iron. 07/01--- patient was seen and examined today. Remained afebrile, heart rate 88, respiratory rate 20, blood pressure 126/61, saturating 94%, on 60 L heated high flow. WBCs 13.3, hemoglobin 9.4, platelet 131. Sodium 127 potassium 4.2 chloride 92 CO2 23 BUN 90 creatinine 4.14 patient underwent hemodialysis today, nephrology following plan for daily hemodialysis for fluid overload. ICU following. Currently on Diflucan, daptomycin and Zosyn. Infectious disease consulted and following. 07/02--patient was seen and examined today. Afebrile, heart rate 98, respiratory rate 18, blood pressure 127/53. Remains on heated high flow with 50 L. Easily desaturates. WBCs 8.4, hemoglobin 10.0, platelet 141. Sodium 131 potassium 4.9 chloride 95 CO2 25 BUN 66 creatinine 3.19. Tolerated BiPAP overnight. ICU following. Poor prognosis. 07/03--- patient was seen and examined today. Family at bedside. Currently on 40 L/min with FiO2 of 50%, underwent hemodialysis today. Afebrile, heart rate 92, respiratory rate 20, blood pressure 113/95.WBCs 9.6, hemoglobin 11.4, platelet 191. Sodium 130, potassium 5.5, chloride 94, CO2 21, BUN 105, creatinine 4.88. 07/04/patient was seen and examined today. Patient continues to require 40 L oxygen, with FiO2 50%. Patient underwent hemodialysis with 2 L fluid removal today. Discussed with nephrology, plan for daily hemodialysis until Monday. Chest x-ray showed same pulmonary venous congestion. Currently on daptomycin and Zosyn. WBCs 8.8, hemoglobin 11.7, platelet 229. Sodium 128 potassium 5.3 chloride 94 BUN 75 creatinine 3.50. 07/05patient was seen and examined today. Afebrile, heart rate 87, respirate 16, blood pressure 87/50, saturating 96%, on 40 L heated high flow at 50% FiO2. WBCs 10.0, hemoglobin 12.9, platelet 281. Sodium 132, potassium 6.0, chloride 92, CO2 18, BUN 116, creatinine 5.42. Undergoing hemodialysis today. Nephrology planning for daily hemodialysis for now. Chest x-ray--same CHF. Remains on daptomycin and Zosyn per infectious disease. ICU on following. Nephrology following. 07/06. Patient seen and examined. Patient continues to be on Airvo, 40 L with an FiO2 of 50%. Patient getting daily dialysis. Blood work done today showed WBC 10, hemoglobin 12.3, platelet count 295, sodium 130, potassium 6.1, BUN 129, creatinine 5.89 patient currently undergoing dialysis. 07/07. Patient seen and examined. Blood work this morning showed sodium 132, potassium 5.7, BUN 70, creatinine 3.66. Vital signs showed Blood pressure 112/64, respiratory rate 12, currently on heated high flow with an FiO2 of 40% at 40 L rate. Very tired this morning July 08: ICU. Has been lethargic. Received hemodialysis yesterday and today. Remains on Airvo 40/40%. Failed swallow eval per speech. Very dry mouth. Lethargic. not at the bedside. Will try to meet with her tomorrow. Chest x-ray shows multifocal disease. July 09: ICU. Does follow commands. Tired. Hemodialysis today. Remains on Airvo. Failed swallowing. Parched oral mucous. Discussed with Dr. Frey this morning. Possible bronchoscopy. Had a meeting with the along with nurse Brittany. Does not wish for bronchoscopy. Patient has expressed not to continue like this anymore. Looking into hospice. Daughter returning from cruise on this Monday night. Will probably stop dialysis 2. Dobbhoff will be placed later today. Prognosis guarded. Active Medications Acetaminophen (Acetaminophen Tab 325 Mg Tab) 650 mg PO Q6HR PRN PRN Reason: Mild Pain or Fever > 100.5 Last Admin: 06/25/24 14:27 Dose: 650 mg Acetaminophen/Butalbital/Caffeine (Butalb/Apap/Caff 50-325-40mg Tab) 1 each PO Q4H PRN PRN Reason: Migraine Headache Albuterol/Ipratropium (Ipratropium-Albuterol 3 Ml Neb) 3 ml INHALATION RT-QID [facility] Last Admin: 07/09/24 15:21 Dose: Not Given Albuterol/Ipratropium (Ipratropium-Albuterol 3 Ml Neb) 3 ml INHALATION RT-QID PRN PRN Reason: Shortness Of Breath Or Wheezing Allopurinol (Allopurinol 100 Mg Tab) 100 mg PO DAILY [facility] Last Admin: 07/09/24 08:14 Dose: Not Given Alprazolam (Alprazolam 0.5 Mg Tab) 0.5 mg PO BID PRN PRN Reason: Anxiety Last Admin: 07/06/24 23:41 Dose: 0.5 mg Aspirin (Aspirin 81 Mg) 81 mg PO DAILY [facility] Last Admin: 07/09/24 08:14 Dose: Not Given Atorvastatin Calcium (Atorvastatin 40 Mg Tab) 40 mg PO DAILY [facility] Last Admin: 07/09/24 08:14 Dose: Not Given Benzocaine (Benzocaine [place] 1 Can) 1 spray MUCOUS MEM QID PRN; Protocol PRN Reason: Mouth Irritation Last Admin: 07/09/24 12:49 Dose: 1 spray Budesonide (Budesonide 1 Mg/2 Ml Nebu) 1 mg INHALATION RT-BID [facility] Last Admin: 07/09/24 07:52 Dose: 1 mg Calcitriol (Calcitriol 0.25 Mcg Cap) 0.25 mcg PO Mo@0900 [facility] Last Admin: 07/08/24 09:34 Dose: Not Given Clopidogrel Bisulfate (Clopidogrel 75 Mg Tab) 75 mg PO DAILY [facility] Last Admin: 07/09/24 08:14 Dose: Not Given Collagenase (Collagenase 250 Unit/Gm Ointment 30 Gm Tube) 1 applic TOPICAL DAILY [facility]; Protocol Last Admin: 07/09/24 08:58 Dose: Not Given Dextrose/Water (Dextrose 50% Syringe 50 Ml) 25 ml IVP PER PROTOCOL PRN; Protocol PRN Reason: Hypoglycemia Dextrose/Water (Dextrose 50% Syringe 50 Ml) 50 ml IVP PER PROTOCOL PRN; Protocol PRN Reason: Hypoglycemia Ergocalciferol (Ergocalciferol 1,250 Mcg (50,000 Iu) Capsule) 1,250 mcg PO Q14D [facility] Last Admin: 07/03/24 08:41 Dose: 1,250 mcg Escitalopram Oxalate (Escitalopram 10 Mg Tab) 10 mg PO DAILY [facility] Last Admin: 07/09/24 08:14 Dose: Not Given Gabapentin (Gabapentin 100 Mg Cap) 100 mg PO HS [facility] Last Admin: 07/08/24 20:41 Dose: Not Given Haloperidol Lactate (Haloperidol Lactate 5 Mg/Ml 1 Ml Vial) 5 mg IVP Q8HR PRN PRN Reason: Agitation or Acute Psychosis Last Admin: 07/01/24 20:39 Dose: 5 mg Heparin Sodium (Porcine) (Heparin Sodium,Porcine 5,000 Unit/Ml 1 Ml Vial) 5,000 unit SQ Q12HR [facility] Last Admin: 07/09/24 08:55 Dose: 5,000 unit Norepinephrine Bitartrate 4 mg (/ Sodium Chloride) 254 mls @ 10.516 mls/hr IV .Q24H [facility]; Protocol Last Titration: 07/08/24 12:40 Dose: 0 mcg/kg/min, 0 mls/hr Insulin Glargine (Insulin Glargine (Lantus) 100 Unit/Ml Syr) 10 unit SQ DAILY@0700 [facility] Last Admin: 07/09/24 06:18 Dose: Not Given Insulin Human Lispro (Insulin Lispro (Humalog) 100 Unit/Ml 10 Ml Vl) 0 unit SQ 0000,0600,1200,1800 [facility]; Protocol Last Admin: 07/09/24 12:49 Dose: 2 unit Isosorbide Mononitrate (Isosorbide Mononitrate Er 60 Mg Tab.Er.24h) 60 mg PO DAILY [facility] Last Admin: 07/09/24 08:14 Dose: Not Given Methylprednisolone Sodium Succinate (Methylprednisolone Sod Succi 40 Mg/Ml 1 Ml Vial) 40 mg IV Q12HR [facility] Last Admin: 07/09/24 08:55 Dose: 40 mg Metoprolol Succinate (Metoprolol Succinate (Er) 25 Mg Tab.Er.24h) 25 mg PO DAILY [facility] Last Admin: 07/09/24 08:15 Dose: Not Given Midodrine (Midodrine 5 Mg Tab) 10 mg PO AC-TID PRN PRN Reason: SBP <120 Last Admin: 07/05/24 09:34 Dose: 10 mg Naloxone HCl (Naloxone 0.4 Mg/Ml 1 Ml Vial) 0.2 mg IV Q2M PRN PRN Reason: Opioid Reversal Pantoprazole Sodium (Pantoprazole 40 Mg/10 Ml Vial) 40 mg IVP DAILY [facility] Last Admin: 07/09/24 08:55 Dose: 40 mg Petrolatum (Zinc Oxide Paste (Z-Guard) 1 Applic) 1 applic TOPICAL BID [facility]; Protocol Last Admin: 07/09/24 08:56 Dose: 1 applic Ranolazine (Ranolazine 500 Mg Tab.Er.12h) 500 mg PO Q12HR [facility] Last Admin: 07/09/24 08:15 Dose: Not Given Tamsulosin HCl (Tamsulosin 0.4 Mg Cap.Er.24h) 0.4 mg PO PC-BRKFST [facility] Last Admin: 07/09/24 08:14 Dose: Not Given Triamcinolone Acetonide (Triamcinolone Acet 0.5% Cream 15 Gm Tube) 1 applic TOPICAL BID PRN; Protocol PRN Reason: rash/dry skin Social history: Non-smoking. No alcohol. On examination: VITAL SIGNS: 98.2, 98, 13, 120 x 70, 95% on Airvo 35/35 GENERAL APPEARANCE: Lying in bed, tired but lethargic HEENT: Normal external appearance of nose and ear. Oral cavity normal EYES: Pupils equal. Conjunctiva normal. NECK: JVD not raised. Mass not palpable. RESPIRATORY: Respiratory effort increased lungs decreased breath sounds with some fine crackles CARDIOVASCULAR: First and second sounds normal. Minimal edema in the right leg ABDOMEN: Soft. Liver and spleen not palpable. No tenderness. No right upper quadrant tenderness. No mass palpable. Colostomy bag with liquid stool PSYCHIATRY: Will follow simple commands Extremity: Right foot in dressing INVESTIGATIONS, reviewed in the clinical context: July 09: White count 13 hemoglobin 12.6 platelets 221 sodium 131 potassium 5.6 creatinine 4.02 July 08: White count 9.9 hemoglobin 11.7 platelets 227 sodium 130 potassium 5.8 BUN 99 creatinine 5.39 June 21: White count 20 hemoglobin 11.6 platelets 150 sodium 134 BUN 45 creatinine 3.36 June 10: White count 12.8 hemoglobin 7.9 platelets 335 sodium 135 potassium 5.2 BUN 118 creatinine 4.1 June 04: White count 10.2 hemoglobin 10.4 platelet 374 sodium 135 potassium 4.6 BUN 66 creatinine 2.71 troponin I less than 0.012 proBNP 2550 EKG tracing personally reviewed by me-atrial fibrillation. Rate 68 Chest x-ray film personally reviewed by -pulm edema Recent labs May 30: Potassium 4.7 BUN 42.3 creatinine 2.3 Assessment and plan: -Acute on chronic congestive heart failure exacerbation, from diastolic dysfunction EF 55 to 60%.: Better Received IV Lasix Started on dialysis June 10.- -Acute hypoxic respiratory failure from pulmonary edema: Slow to respond Initially BiPAP, currently Airvo. 40/40 -Acute respiratory distress syndrome, multifactorial: Slow to respond Patient back on Airvo IV Solu-Medrol, 40 mg every 12- -COPD non-smoker DuoNeb 4 times daily. Nebulized Pulmicort -Chronic ostomy-functioning well -Chronic cephalgia. Patient stated headaches for greater than 6 months. Practically every day. Does not interfere with his eating. No exacerbating relieving factors: Possible tension headaches. CT scan of the brain shows some chronic changes MRI and MRI of the brain showing chronic changes. Seen by Dr. Gay from neurology a week ago. Further outpatient follow-up with neurology -Acute delirium/metabolic encephalopathy. Multifactorial: Fluctuating -Right heel wound. Dry. Follows with Dr. Jernigan at the wound center. Dr. Carpenter from vascular-. Deep debridement carried recently Wound culture [May 29] MRSA, Proteus IV cefepime, daptomycin per ID-now discontinued -Chronic parastomal hernia -Dysphagia. Failed swallow eval as per speech therapy. #Hypertension: Amlodipine. Toprol-XL. -Acute kidney injury, likely cardiorenal: On hemodialysis Right femoral vein dialysis catheter placed by Dr. Carpenter on June 10. Hemodialysis started June 10-Daily Right IJ PermCath placement -CKD likely nephrosclerosis, diabetic nephropathy Creatinine was 1.6 on April 28, 2024. -CAD with stent Toprol-XL -Anemia in the setting of chronic kidney disease. Iron deficiency anemia. Received IV iron -Primary osteoarthritis Pain medication as needed -History of prostate cancer with radiation and chemo in 2020. #Diabetes mellitus type II, chronically on insulin: Uncontrolled with hyperglycemia Levemir to 28 units SQ every 12 #Hyperlipidemia: Lipitor #GERD: Protonix -DNR Advance care planning [July 09, 2024] Had a sitdown meeting with patient's , nurse Soto present. Patient's clinical picture discussed. is a rather realistic. She did say that patient does not want to continue like this. She is looking into hospice. Will do at least couple more hemodialysis. Patient's daughter is returning from a cruise late Monday night. Does not want feeding tube. Temporary Dobbhoff tube will be used. Bronchoscopy to get more specific organism was suggested. does not want that. Understanding patient may land up being on the ventilator also. Patient is DNR. Time spent about 30 minutes Past Medical History Past Medical History: Cancer, Chest Pain / Angina, Diabetes Mellitus, Eye Disorder, GERD/Reflux, Hyperlipidemia, Hypertension, Osteoarthritis (OA), Prostate Disorder, Renal Disease Additional Past Medical History / Comment(s): HX OF ULCERATIVE COLITIS, ileostomy PARASTOMAL HERNIA, PROSTATE CA WITH RADIATION AND CHEMO IN 2020, LOW KIDNEY FUNCTION,Covid Dec 2022, Influenza A Jun 2023, eye condition, unsure of name. History of Any Multi-Drug Resistant Organisms: MRSA Date of last positivie culture/infection: 05/24/24 MDRO Source:: rt heel, scalp Past Surgical History: Appendectomy, Bowel Resection, Heart Catheterization, Heart Catheterization With Stent Additional Past Surgical History / Comment(s): COLECTOMY, RECTUM REMOVED, ELLIOTT CATARACTS removed, ILEOSTOMY, HERNIA SURGERY. Past Anesthesia/Blood Transfusion Reactions: No Reported Reaction Additional Past Anesthesia/Blood Transfusion Reaction / Comment(s): no problems with prior blood transfusions. Date of Last Stent Placement:: 08/01/2023 Past Psychological History: No Psychological Hx Reported Smoking Status: Never smoker Past Alcohol Use History: None Reported Past Drug Use History: None Reported
[2024-07-09 15:57] LABS: Glucose,Whole Blood 128 mg/dL (70-110)
[2024-07-09] MEDS: ACETAMINOPHEN IV (For NPO) 1,000 MG in EMPTY BAG 1 BAG IVPB STA (17:04)
[2024-07-09 17:34] LABS: Glucose,Whole Blood 122 mg/dL (70-110)
[2024-07-09 20:35] LABS: Glucose,Whole Blood 182 mg/dL (70-110)
[2024-07-09] MEDS: MORPHINE SULFATE 2 MG/ML SYRINGE IVP PRN ×2 (20:44→22:21)
[2024-07-09 21:31] VITALS: TEMP 97.7
[2024-07-09 23:46] LABS: Glucose,Whole Blood 159 mg/dL (70-110)
[2024-07-10] MEDS: SCOPOLAMINE 1 MG/72 HR PATCH TRANSDERM SCH (01:09)
[2024-07-10] MEDS: VASOPRESSIN 20 UNIT in SODIUM CHLORIDE 0.9% 50 ML IV SCH (02:20)
[2024-07-10] MEDS: SODIUM CHLORIDE 0.9% 1,000 ML IV ONE (02:20)
[2024-07-10] MEDS: MORPHINE SULFATE 4 MG/ML SYRINGE IVP PRN (02:27)
[2024-07-10 03:00] VITALS: BP 57/27; PULSE 109; RESP 12
--- NOTE | 2024-07-10 18:11 | P.DS ---
Providers Date of admission: 06/04/24 18:28 Expected date of discharge: 07/10/24 () Attending physician: Jamaal Shea Consults: 06/05/24 13:06 Consult Physician Routine Consulting Provider: Tessa Raines Consult Reason/Comments: Dyspnea chf with pulmonary component Do you want consulting provider notified?: Yes 06/05/24 13:08 Consult Physician Routine Consulting Provider: Tessa Raines Consult Reason/Comments: sob Do you want consulting provider notified?: Yes 06/05/24 13:09 Consult Physician Routine Consulting Provider: Ivy Oswald Consult Reason/Comments: roselyn Do you want consulting provider notified?: Yes 06/06/24 08:58 Consult Physician Routine Consulting Provider: Ivy Oswald Consult Reason/Comments: ROSELYN Do you want consulting provider notified?: Yes 06/06/24 09:51 Consult Physician Routine Consulting Provider: Krishan Ontiveros Consult Reason/Comments: left heel wound, follows jordin o/p Do you want consulting provider notified?: Yes Consult Physician Urgent Consulting Provider: Sandeep Jernigan Consult Reason/Comments: left heel chronic wound, on abx Do you want consulting provider notified?: Yes 06/07/24 11:48 Consult Physician Urgent Consulting Provider: Murphy Carpenter Consult Reason/Comments: left foot wound. Do you want consulting provider notified?: Yes Primary care physician: Nas [facility] Course: Chief Complaint: Short of breath Pleasant 73-year-old patient follows with Dr. Dennis. [employer] [place]: Dr. Bales Chronic medical conditions include hypertension, hyperlipidemia, type 2 diabet es, mood disorder, and CAD , ostomy for 25 years, July 2023 stent to the LAD and second diagonal branch by Dr. Bales. April 26, [address] Bales: Following a non-ST relation AK: Patent stent to mid LAD. Late stent thrombosis of the second diagonal branch of the LAD. Severe disease involving the OM1 appears unchanged. Attempted balloon angioplasty performed to the second of diagonal branch with suboptimal results. Dose of Imdur was increased and Ranexa was added. Patient recently in the hospital from May 28 through May 31. Chronic headaches: MRI unremarkable. MR angio head and neck: MR angio head without contrast: No evidence of aneurysm or significant stenosis. Atrophic right A1 segment. origin of the right posterior cerebral artery.MRI of the brain nonspecific. Was seen by neurology Dr. Gay. Patient to follow-up outpatient Chronic right heel wound seen by Dr. Carpenter from vascular deep debridement was carried out. No need for antibiotics. Patient to follow-up with Dr. Jernigan at the wound center. Shortness of breath: Was seen by cardiology. Not for any further intervention. Patient doing well when discharged. Patient presented increased shortness of breath when at home. His pulse ox dropped out of the 80s. Increasing shortness of breath. Decreased appetite. No fever or chills. June 10: Using his BiPAP. Patient seen this morning. Later this afternoon. Right femoral vein dialysis catheter was placed by Dr. Carpenter from vascular for dialysis. Baseline some shortness of breath. Due for first dialysis today. Patient is right heel culture grew MRSA Proteus P Corynebacterium on May 29. Patient is on IV daptomycin and IV cefepime per ID. June 11: Patient seen this afternoon. On BiPAP. Getting hemodialysis. Remains on IV daptomycin IV Zosyn. Tired. Also getting IV iron. Patient really did not eat today. Because of BiPAP. Cut back Levemir to 26 units at night. DC scheduled NovoLog for now. June 12: Overflowing the ICU. Remains on BiPAP. 12/6/90%. at the bedside. Remains on IV daptomycin and IV Zosyn. For dialysis today. X-ray continues shows infiltrates. Significantly hypoxic. N.p.o. June 13: ICU. Remains on BiPAP. 12/6/90% moderate take anything by mouth. Spoke to the nurse have TPN lipids ordered. Remains on IV daptomycin IV Zosyn. Chest x-ray continues to show diffuse infiltrates. Continues to be followed by cardiology pulmonary ID nephrology. June 14: ICU. Later this afternoon patient was put on Airvo. 60/60. Has some delirium. Remains on IV daptomycin and IV Zosyn. Had 2 L ultrafiltration yesterday. Patient getting daily dialysis for now. As patient is oliguric per nephrology Lasix has been held. TPN was ordered yesterday per the nurse culture that returned to feed the patient. Will see how that goes. Dietitian on the case. June 15: ICU. Patient be getting hypotensive. Some medications held back by cardiology. Hemodialysis done today. Patient remains on Airvo though at 50/50. at the bedside. Plans this afternoon to get him up in the chair. Remains on daptomycin and IV Zosyn. IV Lasix been discontinued. Patient tolerating some liquid diet. June 16: Patient moved to the ICU. Remains on Airvo. 45/45. at the bedside. Tolerating full liquids. Spoke to the about the morphine. His headaches are chronic. Use Fioricet as needed. Remains on IV daptomycin and IV Zosyn. IV Solu-Medrol. Amlodipine dose cut back. PT OT. June 17: On 3 S., telemetry floor. Getting hemodialysis today. Remains on IV daptomycin IV Zosyn. On full liquid diet. Advance to ground diet. Minimal urine output. DC fluid restriction. Awake communicating. Accu-Cheks running high. Increase Levemir to 28 units subcu twice daily. Seen by PT OT. Maximum assist. On Airvo 40/40. Cut back Solu-Medrol to every 12. June 18: On a recliner. 7 L nasal cannula. Decreased appetite. at the bedside. Accu-Chek in 200s. IJ PermCath placement pending. Encourage oral intake. Ordered incentive spirometry June 19: Patient was on 7 L nasal cannula yesterday. Patient back on Airvo today. 40 L. Due for hemodialysis today. Had perm dialysis catheter placed right IJ by Dr. Carpenter today. Minimal intake today. Discussed with at the bedside. June 20: Recliner. High flow 15 L nasal cannula. at the bedside. Decreased oral intake.Tired. Hemodialysis today. June 21: Still decreased appetite. Remains on high flow 15 l nasal cannula. Remains on IV daptomycin IV Zosyn per ID. Being followed by multiple consultants spoke to the patient and . Encourage oral intake. June 22: Remains on 15 L high flow nasal cannula. at the bedside. Diet. Remains on IV daptomycin IV Zosyn. Decreased appetite. Will try ground diet. June 23: Monday to the bed. Ate a bit better according to the . Remains on 15 L nasal cannula. Oral candidiasis. Diflucan 200 mg x 1 today. Then 100 mg 3 times a week after each dialysis. Remains on daptomycin IV Zosyn per ID. Discussed with patient 06/24 I am resuming the care of the patient today He is sitting at the edge of the bed feels comfortable. Still requiring 15 units of oxygen, he states that he feels better than yesterday after he was started on IV Solu-Medrol 40 mg twice daily. At home he was not on oxygen Also he is on daptomycin and Diflucan. He is also on antibiotic for his right foot ulcer with dressing in place. No pain 06/25 Patient feels the same Oxygen requirements down from 15 down to 12 L/min His labs showing more hemoconcentration with leukocytosis 23K, hemoglobin 12.2 and platelet 128 all went up little bit. Creatinine 2.5. Sodium improved 132 He remains on Zosyn daptomycin and fluconazole and IV Solu-Medrol 40 mg twice daily 06/26 Patient is breathing quietly while he is sitting in bed. He is getting 11 L via nasal cannula in the morning, however later on it looks like his oxygen supply was increased. Patient denies any other new symptoms His sodium today was 129 and potassium elevated 6.6 and creatinine 4.3. Patient getting dialysis for hyperkalemia protocol. WBC went down to 11.8. Hemoglobin stable at 10.1. Platelet count 122. Remains on triple antibiotics with Diflucan, daptomycin and Zosyn. Also is on IV Solu-Medrol 40 mg twice daily. No more panic attack. Yesterday after rounding he developed panic attacks and improved with Xanax 06/27 Patient required more oxygen starting yesterday and today his saturation well on higher dose of oxygen 40 L/min with FiO2 of 66% Chest x-ray showing cardiomegaly, pulmonary vascular congestion and pleural effusion Currently patient torsemide 40 mg daily Also is getting hemodialysis yesterday and there is another dialysis going on for tomorrow Also he remains on IV Solu-Medrol 40 mg and broad-spectrum antibiotics as above 06/28 Since yesterday patient oxygen requirement started worsening significantly he was placed on high flow nasal cannula at 40 L with FiO2 of 60 to 66%. By the evening patient required to be placed on BiPAP and he was sent to the ICU. Repeat chest x-ray showing cardiomegaly with pulmonary vascular congestion. Echocardiogram from 05/29/2024 showing ejection fraction of 55 to 60%. Patient also undergoing hemodialysis. Creatinine increased today to 4.63. Remains on torsemide, IV Solu-Medrol antibiotics with Zosyn daptomycin and fluconazole 06/29--- patient was seen and examined today. Continues to require on and off BiPAP, currently on heated high flow oxygen, undergoing hemodialysis. Remains on daptomycin and Zosyn. Pulmonary, ID, nephrology following. On Diflucan. Patient is afebrile, heart rate 78, respiratory rate 17, blood pressure 130/61,'s on 50 L heated high flow oxygen. WBC 11.1, hemoglobin 9.2, platelet 97. Sodium 129 potassium 4.0 BUN 61 creatinine 3.57. 06/30--patient was seen and examined today. Afebrile, heart rate 80, respiratory rate 19, blood pressure 121/58, saturating 94% on 50 L heated high flow. WBCs 11.0, hemoglobin 9.5, platelet 113. Sodium 128 potassium 3.8, chloride 90, CO2 26, BUN 48, creatinine 2.58. Patient reported urine output today. Infectious disease following, currently on Zosyn and daptomycin. ICU following. Nephrology following, plan for hemodialysis tomorrow, challenge ultrafiltration. Currently on torsemide. Received IV iron. 07/01--- patient was seen and examined today. Remained afebrile, heart rate 88, respiratory rate 20, blood pressure 126/61, saturating 94%, on 60 L heated high flow. WBCs 13.3, hemoglobin 9.4, platelet 131. Sodium 127 potassium 4.2 chloride 92 CO2 23 BUN 90 creatinine 4.14 patient underwent hemodialysis today, nephrology following plan for daily hemodialysis for fluid overload. ICU following. Currently on Diflucan, daptomycin and Zosyn. Infectious disease consulted and following. 07/02--patient was seen and examined today. Afebrile, heart rate 98, respiratory rate 18, blood pressure 127/53. Remains on heated high flow with 50 L. Easily desaturates. WBCs 8.4, hemoglobin 10.0, platelet 141. Sodium 131 potassium 4.9 chloride 95 CO2 25 BUN 66 creatinine 3.19. Tolerated BiPAP overnight. ICU following. Poor prognosis. 07/03--- patient was seen and examined today. Family at bedside. Currently on 40 L/min with FiO2 of 50%, underwent hemodialysis today. Afebrile, heart rate 92, respiratory rate 20, blood pressure 113/95.WBCs 9.6, hemoglobin 11.4, platelet 191. Sodium 130, potassium 5.5, chloride 94, CO2 21, BUN 105, creatinine 4.88. 07/04/patient was seen and examined today. Patient continues to require 40 L oxygen, with FiO2 50%. Patient underwent hemodialysis with 2 L fluid removal today. Discussed with nephrology, plan for daily hemodialysis until Monday. Chest x-ray showed same pulmonary venous congestion. Currently on daptomycin and Zosyn. WBCs 8.8, hemoglobin 11.7, platelet 229. Sodium 128 potassium 5.3 chloride 94 BUN 75 creatinine 3.50. 07/05patient was seen and examined today. Afebrile, heart rate 87, respirate 16, blood pressure 87/50, saturating 96%, on 40 L heated high flow at 50% FiO2. WBCs 10.0, hemoglobin 12.9, platelet 281. Sodium 132, potassium 6.0, chloride 92, CO2 18, BUN 116, creatinine 5.42. Undergoing hemodialysis today. Nephrology planning for daily hemodialysis for now. Chest x-ray--same CHF. Remains on daptomycin and Zosyn per infectious disease. ICU on following. Nephrology following. 07/06. Patient seen and examined. Patient continues to be on Airvo, 40 L with an FiO2 of 50%. Patient getting daily dialysis. Blood work done today showed WBC 10, hemoglobin 12.3, platelet count 295, sodium 130, potassium 6.1, BUN 129, creatinine 5.89 patient currently undergoing dialysis. 07/07. Patient seen and examined. Blood work this morning showed sodium 132, potassium 5.7, BUN 70, creatinine 3.66. Vital signs showed Blood pressure 112/64, respiratory rate 12, currently on heated high flow with an FiO2 of 40% at 40 L rate. Very tired this morning July 08: ICU. Has been lethargic. Received hemodialysis yesterday and today. Remains on Airvo 40/40%. Failed swallow eval per speech. Very dry mouth. Lethargic. not at the bedside. Will try to meet with her tomorrow. Chest x-ray shows multifocal disease. July 09: ICU. Does follow commands. Tired. Hemodialysis today. Remains on Airvo. Failed swallowing. Parched oral mucous. Discussed with Dr. Frey this morning. Possible bronchoscopy. Had a meeting with the along with nurse Brittany. Does not wish for bronchoscopy. Patient has expressed not to continue like this anymore. Looking into hospice. Daughter returning from cruise on this Monday night. Will probably stop dialysis 2. Dobbhoff will be placed later today. Prognosis guarded. July 10: ICU. Patient took a turn for the worse yesterday evening. Family called in. Made him comfort care. Patient early hours of this morning. Social history: Non-smoking. No alcohol. INVESTIGATIONS, reviewed in the clinical context: July 09: White count 13 hemoglobin 12.6 platelets 221 sodium 131 potassium 5.6 creatinine 4.02 July 08: White count 9.9 hemoglobin 11.7 platelets 227 sodium 130 potassium 5.8 BUN 99 creatinine 5.39 June 21: White count 20 hemoglobin 11.6 platelets 150 sodium 134 BUN 45 creatinine 3.36 June 10: White count 12.8 hemoglobin 7.9 platelets 335 sodium 135 potassium 5.2 BUN 118 creatinine 4.1 June 04: White count 10.2 hemoglobin 10.4 platelet 374 sodium 135 potassium 4.6 BUN 66 creatinine 2.71 troponin I less than 0.012 proBNP 2550 EKG tracing personally reviewed by me-atrial fibrillation. Rate 68 Chest x-ray film personally reviewed by me-pulm edema Recent labs May 30: Potassium 4.7 BUN 42.3 creatinine 2.3 Cause of : Coronary artery disease Assessment and plan: -Acute on chronic congestive heart failure exacerbation, from diastolic dysfunction EF 55 to 60%.: Better Received IV Lasix Started on dialysis June 10.- -Acute hypoxic respiratory failure from pulmonary edema: Slow to respond Initially BiPAP, currently Airvo. 40/40 -Acute respiratory distress syndrome, multifactorial: Slow to respond Patient back on Airvo IV Solu-Medrol, 40 mg every 12- -COPD non-smoker DuoNeb 4 times daily. Nebulized Pulmicort -Chronic ostomy-functioning well -Chronic cephalgia. Patient stated headaches for greater than 6 months. Practically every day. Does not interfere with his eating. No exacerbating relieving factors: Possible tension headaches. CT scan of the brain shows some chronic changes MRI and MRI of the brain showing chronic changes. Seen by Dr. Gay from neurology a week ago. Further outpatient follow-up with neurology -Acute delirium/metabolic encephalopathy. Multifactorial: Fluctuating -Right heel wound. Dry. Follows with Dr. Jernigan at the wound center. Dr. Carpenter from vascular-. Deep debridement carried recently Wound culture [May 29] MRSA, Proteus IV cefepime, daptomycin per ID-now discontinued -Chronic parastomal hernia -Dysphagia. Failed swallow eval as per speech therapy. #Hypertension: Amlodipine. Toprol-XL. -Acute kidney injury, likely cardiorenal: On hemodialysis Right femoral vein dialysis catheter placed by Dr. Carpenter on June 10. Hemodialysis started June 10-Daily Right IJ PermCath placement -CKD likely nephrosclerosis, diabetic nephropathy Creatinine was 1.6 on April 28, 2024. -CAD with stent Toprol-XL -Anemia in the setting of chronic kidney disease. Iron deficiency anemia. Received IV iron -Primary osteoarthritis Pain medication as needed -History of prostate cancer with radiation and chemo in 2020. #Diabetes mellitus type II, chronically on insulin: Uncontrolled with hyperglycemia Levemir to 28 units SQ every 12 #Hyperlipidemia: Lipitor #GERD: Protonix -DNR Advance care planning [July 09, 2024] Had a sitdown meeting with patient's , nurse Soto present. Patient's clinical picture discussed. is a rather realistic. She did say that patient does not want to continue like this. She is looking into hospice. Will do at least couple more hemodialysis. Patient's daughter is returning from a cruise late Monday night. Does not want feeding tube. Temporary Dobbhoff tube will be used. Bronchoscopy to get more specific organism was suggested. does not want that. Understanding patient may land up being on the ventilator also. Patient is DNR. Time spent about 30 minutes Disposition: Patient Past Medical History Past Medical History: Cancer, Chest Pain / Angina, Diabetes Mellitus, Eye Disorder, GERD/Reflux, Hyperlipidemia, Hypertension, Osteoarthritis (OA), Prostate Disorder, Renal Disease Additional Past Medical History / Comment(s): HX OF ULCERATIVE COLITIS, ileostomy PARASTOMAL HERNIA, PROSTATE CA WITH RADIATION AND CHEMO IN 2020, LOW KIDNEY FUNCTION,Covid Dec 2022, Influenza A Jun 2023, eye condition, unsure of name. History of Any Multi-Drug Resistant Organisms: MRSA Date of last positivie culture/infection: 05/24/24 MDRO Source:: rt heel, scalp Past Surgical History: Appendectomy, Bowel Resection, Heart Catheterization, Heart Catheterization With Stent Additional Past Surgical History / Comment(s): COLECTOMY, RECTUM REMOVED, ELLIOTT CATARACTS removed, ILEOSTOMY, HERNIA SURGERY. Past Anesthesia/Blood Transfusion Reactions: No Reported Reaction Additional Past Anesthesia/Blood Transfusion Reaction / Comment(s): no problems with prior blood transfusions. Date of Last Stent Placement:: 08/01/2023 Past Psychological History: No Psychological Hx Reported Smoking Status: Never smoker Past Alcohol Use History: None Reported Past Drug Use History: None Reported Plan - Discharge Summary Discharge Rx Participant: Yes New Discharge Prescriptions: No Action Aspirin EC [Ecotrin Low Dose] 81 mg PO DAILY Ergocalciferol (Vitamin D2) [Drisdol (50,000 Iu)] 1,250 mcg PO Q14D allopurinoL [Zyloprim] 200 mg PO DAILY Gabapentin [Neurontin] 100 mg PO HS Atorvastatin [Lipitor] 40 mg PO DAILY Pantoprazole [Protonix] 40 mg PO DAILY Escitalopram [Lexapro] 10 mg PO DAILY calcitrioL 0.25 mcg PO MO Metoprolol Succinate (ER) [Toprol XL] 25 mg PO DAILY #30 tab Butalb/APAP/Caff 50-325-40Mg [Fioricet 50-325-40] 1 tab PO Q4H PRN PRN Reason: Migraine Headache Ferrous Sulfate [Iron (65 MG Elemental)] 325 mg PO DAILY amLODIPine [Norvasc] 10 mg PO DAILY #30 tab Ranolazine [Ranexa] 500 mg PO Q12HR #60 tab Sodium Bicarbonate Tab 650 mg PO BID #60 tab Albuterol Sulfate [Albuterol Sulfate Hfa] 1 puff INHALATION RT-Q4H Dapagliflozin Propanediol [Farxiga] 10 mg PO DAILY Insulin Aspart [NovoLOG Flexpen] 30 - 40 units SQ AC-TID Insulin Glargine,Hum.rec.anlog [Toujeo Solostar] 50 units SQ HS Triamcinolone 0.5% Cream [Kenalog 0.5% Cream] 1 applic TOPICAL BID PRN PRN Reason: rash/dry skin Isosorbide Mononitrate ER [Imdur] 60 mg PO DAILY #30 tab Acetaminophen Tab [Tylenol] 650 mg PO Q6HR PRN tab PRN Reason: Fever And/ Or Pain Clopidogrel [Plavix] 75 mg PO DAILY 30 Days #30 tablet hydrALAZINE HCL [Apresoline] 25 mg PO TID Collagenase [Santyl Ointment] 1 applic TOPICAL DAILY each Torsemide [Demadex] 40 mg PO DAILY #0 Nuzyra 150mg See Taper PO HS Discharge Medication List Aspirin EC [Ecotrin Low Dose] 81 mg PO DAILY 11/08/18 [History] Ergocalciferol (Vitamin D2) [Drisdol (50,000 Iu)] 1,250 mcg PO Q14D 06/25/20 [History] allopurinoL [Zyloprim] 200 mg PO DAILY 10/21/21 [History] Dapagliflozin Propanediol [Farxiga] 10 mg PO DAILY 11/05/21 [History] Gabapentin [Neurontin] 100 mg PO HS 06/30/23 [History] Atorvastatin [Lipitor] 40 mg PO DAILY 07/25/23 [History] Insulin Aspart [NovoLOG Flexpen] 30 - 40 units SQ AC-TID 08/16/23 [History] Escitalopram [Lexapro] 10 mg PO DAILY 02/10/24 [History] Pantoprazole [Protonix] 40 mg PO DAILY 02/10/24 [History] calcitrioL 0.25 mcg PO MO 02/10/24 [History] Metoprolol Succinate (ER) [Toprol XL] 25 mg PO DAILY #30 tab 02/19/24 [Rx] Butalb/APAP/Caff 50-325-40Mg [Fioricet 50-325-40] 1 tab PO Q4H PRN 04/25/24 [History] Ferrous Sulfate [Iron (65 MG Elemental)] 325 mg PO DAILY 04/25/24 [History] Insulin Glargine,Hum.rec.anlog [Toujeo Solostar] 50 units SQ HS 04/25/24 [History] Triamcinolone 0.5% Cream [Kenalog 0.5% Cream] 1 applic TOPICAL BID PRN 04/25/24 [History] Acetaminophen Tab [Tylenol] 650 mg PO Q6HR PRN tab 04/28/24 [Rx] Clopidogrel [Plavix] 75 mg PO DAILY 30 Days #30 tablet 04/28/24 [Rx] Isosorbide Mononitrate ER [Imdur] 60 mg PO DAILY #30 tab 04/28/24 [Rx] Ranolazine [Ranexa] 500 mg PO Q12HR #60 tab 04/28/24 [Rx] amLODIPine [Norvasc] 10 mg PO DAILY #30 tab 04/28/24 [Rx] hydrALAZINE HCL [Apresoline] 25 mg PO TID 05/28/24 [History] Collagenase [Santyl Ointment] 1 applic TOPICAL DAILY each 05/31/24 [Rx] Sodium Bicarbonate Tab 650 mg PO BID #60 tab 05/31/24 [Rx] Torsemide [Demadex] 40 mg PO DAILY #0 05/31/24 [Rx] Albuterol Sulfate [Albuterol Sulfate Hfa] 1 puff INHALATION RT-Q4H 06/04/24 [History] Nuzyra 150mg See Taper PO HS 06/04/24 [History] Discharge Disposition: - Preliminary Cause of Preliminary Cause of : Coronary artery disease
== END 2024-07-10 05:00 | disposition expired | DRG 264 ==
LOC: EC 14:37 → 4SSUR 18:28 → 3SCARD 06-11 02:23 → 2SICU 06-11 16:37 → 3SCARD 06-16 13:11 → 2SICU 06-27 18:39
PROVIDERS: ADMIT Hospitalist; ATTEND Hospitalist
PROC: 0JBQ0ZZ Excision of Right Foot Subcutaneous Tissue and Fascia, Open Approach (ICD-10-PCS; principal; 2024-06-04)
PROC: 0JBQ0ZZ Excision of Right Foot Subcutaneous Tissue and Fascia, Open Approach (ICD-10-PCS; 2024-06-07)
PROC: 06HY33Z Insertion of Infusion Device into Lower Vein, Percutaneous Approach (ICD-10-PCS; 2024-06-10)
PROC: 5A1D70Z Performance of Urinary Filtration, Intermittent, Less than 6 Hours Per Day (ICD-10-PCS; 2024-06-10)
PROC: 5A09557 Assistance with Respiratory Ventilation, Greater than 96 Consecutive Hours, Continuous Positive Airway Pressure (ICD-10-PCS; 2024-06-10)
PROC: 05HY33Z Insertion of Infusion Device into Upper Vein, Percutaneous Approach (ICD-10-PCS; 2024-06-12)
PROC: 0JBQ0ZZ Excision of Right Foot Subcutaneous Tissue and Fascia, Open Approach (ICD-10-PCS; 2024-06-14)
PROC: 02H633Z Insertion of Infusion Device into Right Atrium, Percutaneous Approach (ICD-10-PCS; 2024-06-19)
PROC: 0JH63XZ Insertion of Tunneled Vascular Access Device into Chest Subcutaneous Tissue and Fascia, Percutaneous Approach (ICD-10-PCS; 2024-06-19)
PROC: 05HC33Z Insertion of Infusion Device into Left Basilic Vein, Percutaneous Approach (ICD-10-PCS; 2024-06-21)
PROC: 05HY33Z Insertion of Infusion Device into Upper Vein, Percutaneous Approach (ICD-10-PCS; 2024-06-26)
PROC: 3E043XZ Introduction of Vasopressor into Central Vein, Percutaneous Approach (ICD-10-PCS; 2024-06-28)
PROC: 05H933Z Insertion of Infusion Device into Right Brachial Vein, Percutaneous Approach (ICD-10-PCS; 2024-07-01)
PROC: 3E0G76Z Introduction of Nutritional Substance into Upper GI, Via Natural or Artificial Opening (ICD-10-PCS; 2024-07-09)
PROC: 0DH67UZ Insertion of Feeding Device into Stomach, Via Natural or Artificial Opening (ICD-10-PCS; 2024-07-09)
DX: I13.0 Hypertensive heart and chronic kidney disease with heart failure and stage 1 through stage 4 chronic kidney disease, or unspecified chronic kidney disease (principal); I50.33 Acute on chronic diastolic (congestive) heart failure; N17.0 Acute kidney failure with tubular necrosis; J80 Acute respiratory distress syndrome; J18.9 Pneumonia, unspecified organism; G93.41 Metabolic encephalopathy; B37.89 Other sites of candidiasis; N18.4 Chronic kidney disease, stage 4 (severe); E87.20 Acidosis, unspecified; I96 Gangrene, not elsewhere classified; E83.9 Disorder of mineral metabolism, unspecified; Z99.2 Dependence on renal dialysis; J44.0 Chronic obstructive pulmonary disease with (acute) lower respiratory infection; Z68.41 Body mass index [BMI] 40.0-44.9, adult; E11.52 Type 2 diabetes mellitus with diabetic peripheral angiopathy with gangrene; D63.1 Anemia in chronic kidney disease; I08.1 Rheumatic disorders of both mitral and tricuspid valves; I77.819 Aortic ectasia, unspecified site; F39 Unspecified mood [affective] disorder; J44.1 Chronic obstructive pulmonary disease with (acute) exacerbation; L97.412 Non-pressure chronic ulcer of right heel and midfoot with fat layer exposed; K51.90 Ulcerative colitis, unspecified, without complications; B37.0 Candidal stomatitis; E87.1 Hypo-osmolality and hyponatremia; L03.116 Cellulitis of left lower limb; E11.22 Type 2 diabetes mellitus with diabetic chronic kidney disease; E11.65 Type 2 diabetes mellitus with hyperglycemia; Z79.4 Long term (current) use of insulin; Z93.2 Ileostomy status; I48.91 Unspecified atrial fibrillation; E11.621 Type 2 diabetes mellitus with foot ulcer; E11.43 Type 2 diabetes mellitus with diabetic autonomic (poly)neuropathy; E11.628 Type 2 diabetes mellitus with other skin complications; E11.42 Type 2 diabetes mellitus with diabetic polyneuropathy; Z51.5 Encounter for palliative care; Z66 Do not resuscitate; E66.9 Obesity, unspecified; D50.9 Iron deficiency anemia, unspecified; B95.62 Methicillin resistant Staphylococcus aureus infection as the cause of diseases classified elsewhere; I25.10 Atherosclerotic heart disease of native coronary artery without angina pectoris; T82.867D Thrombosis due to cardiac prosthetic devices, implants and grafts, subsequent encounter; H66.91 Otitis media, unspecified, right ear; F41.0 Panic disorder [episodic paroxysmal anxiety]; E87.5 Hyperkalemia; K80.20 Calculus of gallbladder without cholecystitis without obstruction; B96.4 Proteus (mirabilis) (morganii) as the cause of diseases classified elsewhere; R51.9 Headache, unspecified; I95.9 Hypotension, unspecified; N42.9 Disorder of prostate, unspecified; E86.0 Dehydration; K43.5 Parastomal hernia without obstruction or gangrene; E78.5 Hyperlipidemia, unspecified; K21.9 Gastro-esophageal reflux disease without esophagitis; R33.9 Retention of urine, unspecified; M19.91 Primary osteoarthritis, unspecified site; Z79.82 Long term (current) use of aspirin; Z79.02 Long term (current) use of antithrombotics/antiplatelets; Z79.84 Long term (current) use of oral hypoglycemic drugs; Z79.899 Other long term (current) drug therapy; Z85.46 Personal history of malignant neoplasm of prostate; Z92.3 Personal history of irradiation; Z92.21 Personal history of antineoplastic chemotherapy; Z86.16 Personal history of COVID-19; Z86.14 Personal history of Methicillin resistant Staphylococcus aureus infection; Z88.6 Allergy status to analgesic agent; Y83.1 Surgical operation with implant of artificial internal device as the cause of abnormal reaction of the patient, or of later complication, without mention of misadventure at the time of the procedure
CPT/HCPCS: 36410; 36415; 36556; 36558; 36600; 71045; 71046; 71250; 76770; 76937; 77001; 80048; 80053; 81003; 82550; 82728; 82805; 83540; 83550; 83605; 83735; 83880; 84100; 84132; 84145; 84484; 85025; 85027; 85610; 85652; 85730; 86140; 86706; 87040; 87340; 87636; 90935; 93005; 94640; 94660; 94760; 96374; 96376; 99285